=== PATIENT | male | born 1965 | race Caucasian/White ===

== ENCOUNTER 2023-01-03 09:35 | Outpatient (RCR) | payer OTHER, SELFPAY | END 2023-02-09 13:35 | disposition home or self-care (01) | LOC: PT 09:35 | PROVIDERS: PCP Family Medicine; Visit Provider Family Medicine | DX: M47.816 Spondylosis without myelopathy or radiculopathy, lumbar region (principal) | CPT/HCPCS: 97110; 97140 ==

== ENCOUNTER 2023-01-03 09:36 | Outpatient (RCR) | payer OTHER, SELFPAY | END 2023-01-10 13:30 | disposition home or self-care (01) | LOC: PT 09:36 | PROVIDERS: PCP Family Medicine; Visit Provider Orthopaedic Surgery | DX: M25.512 Pain in left shoulder (principal); M75.102 Unspecified rotator cuff tear or rupture of left shoulder, not specified as traumatic; Z98.890 Other specified postprocedural states | CPT/HCPCS: 97110; 97140 ==

== ENCOUNTER 2023-02-06 16:03 | Outpatient (OUT) | payer OTHER, SELFPAY ==
[2023-02-06 16:20] LABS: Hematocrit 40.4 % (42.0-54.0); Hemoglobin 13.5 g/dL (14.0-18.0); Mean Corpuscular HGB Conc 33.4 g/dL (29.9-35.2); Mean Corpuscular Hemoglobin 31.2 pg (25.9-34.0); Mean Corpuscular Volume 93.3 fL (80.0-94.0); Mean Platelet Volume 9.4 fL (9.5-13.5); Platelet Count 305 10^3/uL (150-450); Red Blood Count 4.33 10^6/uL (4.70-6.10); Red Cell Distribution Width 14.5 % (11.0-15.0); White Blood Count 6.6 10^3/uL (4.0-11.0)
[2023-02-06 16:34] LABS: Band Neutrophils Absolute 0.1 10^3/uL (0.0-0.3); Eosinophils Absolute Manual 0.06 10^3/uL (0.00-0.70); Lymphocytes Absolute Manual 0.26 10^3/uL (1.20-3.80); Monocytes Absolute Manual 0.19 10^3/uL (0.30-0.80)
[2023-02-06 16:40] LABS: Estimated Average Glucose 120 mg/dL; Glycohemoglobin A1C 5.8 % (4.5-6.2)
[2023-02-06 17:52] LABS: Free T4 1.07 ng/dL (0.76-1.46)
[2023-02-06 17:54] LABS: Alanine Aminotransferase 26 U/L (16-63); Albumin Level 3.5 g/dL (3.4-5.0); Alkaline Phosphatase 109 U/L (46-116); Anion Gap 11.9; Aspartate Amino Transferase 14 U/L (15-37); BUN Creatinine Ratio 18.6; Bilirubin Direct 0.1 mg/dL (0.0-0.2); Bilirubin Total 0.3 mg/dL (0.2-1.0); Calcium 9.1 mg/dL (8.5-10.1); Carbon Dioxide 24.9 mmol/L (21.0-32.0); Chloride 106 mmol/L (98-107); Chol HDL Ratio 2.3; Cholesterol 178 mg/dL (<=200); Estimated GFR (African America >60 (>=60); Estimated GFR (Non-African Ame >60 (>=60); Free T3 2.86 pg/mL (2.18-3.98); Globulin 3.5 g/dL; Glucose 171 mg/dL (74-106); HDL Cholesterol 77 mg/dL (40-60); Potassium 4.8 mmol/L (3.5-5.1); Sodium 138 mmol/L (136-145); Thyroid Stimulating Hormone 0.365 uIU/mL (0.358-3.740); Triglycerides 135 mg/dL (<=150)
[2023-02-06 17:58] LABS: Prostate Specific Antigen Scrn 0.32 ng/mL (<=4.00)
== END 2023-02-06 16:04 | disposition home or self-care (01) ==
LOC: LAB 16:03
PROVIDERS: PCP Family Medicine; Visit Provider Family Medicine
DX: Z00.00 Encounter for general adult medical examination without abnormal findings (principal)
CPT/HCPCS: 36415; 80048; 80061; 80076; 83036; 84439; 84443; 84481; 85007; 85025; G0103

== ENCOUNTER 2023-05-03 10:17 | Emergency (ER) | payer OTHER, SELFPAY ==
[2023-05-03] VITALS (12 sets, daily range): BP systolic 131–143; BP diastolic 84–95; PULSE 70–74; RESP 15–29; TEMP 36.4; O2SAT 94–98; BMI 29.8
--- NOTE | 2023-05-03 10:32 | XR_ITS ---
The [address] [address] Patient Name: MORGAN LATHAM MRN: [id number] date: 1965 Sex: M Assigned Patient Location: ER Current Patient Location: ED.MAIN Accession/Order Number: [id number] Exam Date: 05/03/2023 10:43 Report Date: 05/03/2023 10:59 At the request of: MARI MORROW Procedure: XR chest 1V EXAMINATION: XR chest 1V HISTORY: CHEST PAIN COMPARISON: No relevant comparison available. FINDINGS: LUNGS: Mild opacity and stranding within right lung base. VASCULATURE: No increased pulmonary vasculature. PLEURA: No pneumothorax, effusion, or pleural thickening. CARDIAC: No cardiomegaly or cardiac silhouette abnormality. MEDIASTINUM: No visible mass or adenopathy. BONES: No fracture or visible bone lesion. OTHER: Negative. XR/XR chest 1V IMPRESSION: 1. Mild bibasilar infiltrates versus atelectasis. Electronically authenticated by: JOEL ANN Date: 05/03/2023 10:59
--- NOTE | 2023-05-03 10:32 | ECG_ITS ---
The [facility] Test Date: 2023-05-03 Pat Name: MORGAN LATHAM Department: Room: - Gender: Male Comprehensive Advisor: : 1965 Requested By: MORRO MCPHERSON Order Number: [id number] Reading MD: DANIEL BILL Measurements Intervals [place] Rate: 72 P: 38 MN: 156 QRS: 44 QRSD: 124 T: 141 QT: 442 QTc: 466 Interpretive Statements 1100 Sinus rhythm 3532 Lateral myocardial infarction, probably recent [address] depression, consistent with subendocardial injury 9150 abnormal ECG No previous ECG available for comparison Electronically Signed On 05-05-2023 18:38:57 EDT by DANIEL BILL
--- NOTE | 2023-05-03 10:39 | ED.CHESTPAI1 ---
HPI - Chest Pain General Chief Complaint: Chest Pain Stated Complaint: chest pain Time Seen by Provider: 05/03/23 10:24 Source: patient Mode of arrival: Wheelchair History of Present Illness HPI narrative: SUDDEN ONSET STERNAL CHEST PAIN @630AM THIS MORNING. Pain is non radiating but he has some tingling down the left arm. No GI or symptoms. No recent cough, chest injury, fever or chills. He rates the pain as severe at onset, moderate to severe now. He did not take anything this morning for the pain. History of HTN and high cholesterol. Had a negative heart cath somewhere in [place] over 10 years ago. Does not take aspirin daily. PCP is Norma. Related Data Home Medications Medication Instructions Recorded Confirmed atenolol 50 mg tablet 50 mg PO DAILY 05/03/23 05/03/23 atorvastatin 20 mg tablet 20 mg PO QPM 05/03/23 05/03/23 celecoxib 200 mg capsule 200 mg PO BID 05/03/23 05/03/23 cetirizine 10 mg tablet 10 mg PO DAILY PRN allergy symptoms 05/03/23 05/03/23 duloxetine 30 mg capsule,delayed 30 mg PO DAILY 05/03/23 05/03/23 release fluticasone propionate 50 2 spray intranasal QAM 05/03/23 05/03/23 mcg/actuation nasal spray,suspension gabapentin 300 mg capsule 300 mg PO TID 05/03/23 05/03/23 mupirocin 2 % topical ointment 1 applic topical DAILY 05/03/23 05/03/23 omeprazole 40 mg capsule,delayed 40 mg PO BID 05/03/23 05/03/23 release oxycodone-acetaminophen 10 mg-325 1 tab PO QID PRN pain 05/03/23 05/03/23 mg tablet Allergies Allergy/AdvReac Type Severity Reaction Status Date / Time No Known Drug Allergies Allergy Verified 05/03/23 10:22 Exam Narrative Exam Narrative: Nurses notes and vital signs reviewed and patient is not hypoxic. afebrile General: Well-appearing and in no apparent distress. Skin: Warm, dry, no pallor noted. Eye: Pupils are equal, round and EOMI. No scleral icterus. Cardiovascular: Regular Rate and Rhythm without murmur, gallop or rub. Respiratory: No accessory muscle use or respiratory distress. Lungs are clear to auscultation, no wheezing, rales or rhonchi Chest Wall: no tenderness Musculoskeletal: normal ROM, no calf or popliteal tenderness, no lower extremity edema/swelling GI: Abdomen is soft, non-distended. Normal bowel sounds. No tenderness to palpation. No rebound, guarding, or rigidity noted. Neurological: A&O x4. No cranial nerve dysfunction observed. No truncal ataxia. Moves all extremities. Sensation intact. Psychiatric: Cooperative and interactive. Normal mood and affect. Constitutional Vital Signs, click to edit/add: Last Vital Signs Temp 97.5 F L 05/03/23 10:19 Pulse 74 05/03/23 10:19 Resp 22 05/03/23 10:19 BP 132/95 H 05/03/23 10:19 Pulse Ox 98 05/03/23 10:35 O2 Del Method Room Air 05/03/23 10:35 Course Vital Signs Vital signs: Vital Signs Temperature 97.5 F L 05/03/23 10:19 Pulse Rate 74 05/03/23 10:19 Respiratory Rate 22 05/03/23 10:19 Blood Pressure 132/95 H 05/03/23 10:19 Pulse Oximetry 97 05/03/23 10:19 Oxygen Delivery Method Room Air 05/03/23 10:19 Temperature 97.5 F L 05/03/23 10:19 Pulse Rate 74 05/03/23 10:19 Respiratory Rate 22 05/03/23 10:19 Blood Pressure 132/95 H 05/03/23 10:19 Pulse Oximetry 98 05/03/23 10:35 Oxygen Delivery Method Room Air 05/03/23 10:35 MDM - Chest Pain MDM Narrative Medical decision making narrative: Patient was placed on radiation monitor and EKG obtained. Blood drawn and sent for evaluation. EKG concerning for STEMI and Dr Quick notified with non-identifiable copy of ecg sent to his to review and we then discussed the case. He agreed to accept the patient for transfer to their [facility] and arrangements made for [facility] to tranport the patient. Patient received oral aspirin and Brilinta plus SL Nitro. He received IV Zofran and IV Morphine and was started on 4000 unit heparin bolus with drip to be started if bolus completed prior to EMS arrival. 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 Lab Data Attestation: I reviewed the patient's lab results. Imaging Data Chest x-ray: My impression: I do not see any mediastinal widening concerning for thoracic aortic aneurysm ECG Data Interpretation: EKG interpretation: Emergency Department physician interpretation. Normal sinus rhythm at 89bpm. Normal axis, normal intervals. ST segment elevation in leads I and aVL with reciprocal changes concerning for STEMI. Heart Score History: Highly Suspicious ECG: Sign. ST Depression Age: >45-<65 years Risk Factors: >3 Risk Factors/ HX of CAD:2 Troponin: <3X Normal Limit Total Heart Score Recommendations & Risks:: 8 Critical Care Time Critical Care Time Critical Care Time: Yes Total Critical Care Time: 35 Attestation: this critical care that is documented includes time spent evaluating the patient, coordinating Lab availability and transfer to appropriate facility for intervention and is independent of any procedures Discharge Plan Discharge Chief Complaint: Chest Pain Clinical Impression: ST elevation myocardial infarction (STEMI), Chest pain Patient Disposition: [facility] Time of Disposition Decision: 10:30 Discharge Location: [facility] Mode of Transportation: EMS Prescriptions / Home Meds: No Action atenolol 50 mg tablet 50 mg PO DAILY atorvastatin 20 mg tablet 20 mg PO QPM celecoxib 200 mg capsule 200 mg PO BID cetirizine 10 mg tablet 10 mg PO DAILY PRN (Reason: allergy symptoms) duloxetine 30 mg capsule,delayed release(DR/EC) 30 mg PO DAILY fluticasone propionate 50 mcg/actuation spray,suspension 2 spray INTRANASAL QAM gabapentin 300 mg capsule 300 mg PO TID mupirocin 2 % ointment 1 applic TOPICAL DAILY omeprazole 40 mg capsule,delayed release(DR/EC) 40 mg PO BID oxycodone-acetaminophen 10-325 mg tablet 1 tab PO QID PRN (Reason: pain) Referrals: Juve Green MD [Primary Care Provider] - 1 week
[2023-05-03] MEDS: MORPHINE SULFATE 4 MG/ML VIAL IV (10:43)
[2023-05-03] MEDS: NITROGLYCERIN 0.4 MG BOTTLE PO (10:44)
[2023-05-03] MEDS: ONDANSETRON PF 4 MG/2 ML VIAL IV (10:45)
[2023-05-03] MEDS: HEPARIN SODIUM (PORCINE) 5,000 UNIT/ML VIAL 4000 UNIT IV (10:45)
[2023-05-03] MEDS: TICAGRELOR 90 MG TABLET 180 MG PO (10:46)
[2023-05-03] MEDS: HEPARIN SODIUM,PORCINE/D5W 25,000 UNIT/500 ML IV.SOLN 16 UNIT IV (10:48)
[2023-05-03 10:49] LABS: Basophils Absolute Auto 0.1 10^3/uL (0.0-0.1); Basophils Percent Auto 0.5 % (0.2-2.0); Eosinophils Absolute Auto 0.1 10^3/uL (0.0-0.7); Eosinophils Percent Auto 0.8 % (0.9-7.0); Hematocrit 42.3 % (42.0-54.0); Hemoglobin 13.8 g/dL (14.0-18.0); Immature Granulocytes Abs Auto 0.02 10^3/uL (0.00-0.03); Immature Granulocytes Pct Auto 0.2 % (0.0-0.5); Lymphocytes Percent Auto 9.8 % (20.5-60.0); Mean Corpuscular HGB Conc 32.6 g/dL (29.9-35.2); Mean Corpuscular Hemoglobin 30.5 pg (25.9-34.0); Mean Corpuscular Volume 93.6 fL (80.0-94.0); Mean Platelet Volume 10.6 fL (9.5-13.5); Monocytes Absolute Auto 0.7 10^3/uL (0.3-0.8); Monocytes Percent Auto 7.5 % (1.7-12.0); Neutrophils Percent Auto 81.2 % (43.0-75.0); Platelet Count 353 10^3/uL (150-450); Red Blood Count 4.52 10^6/uL (4.70-6.10); Red Cell Distribution Width 13.1 % (11.0-15.0); White Blood Count 9.9 10^3/uL (4.0-11.0)
[2023-05-03 10:50] LABS: INR 0.95; Partial Thromboplastin Time 26.2 sec (22.3-36.2); Prothrombin Time 10.1 sec (9.0-11.6)
[2023-05-03 11:01] LABS: Anion Gap 13.8; Carbon Dioxide 26.8 mmol/L (21.0-32.0); Chloride 103 mmol/L (98-107); Glucose 131 mg/dL (74-106); Sodium 139 mmol/L (136-145)
[2023-05-03 11:02] LABS: BUN Creatinine Ratio 15.9; Calcium 9.8 mg/dL (8.5-10.1); Estimated GFR (African America >60 (>=60); Estimated GFR (Non-African Ame >60 (>=60)
[2023-05-03 11:23] LABS: Troponin I High Sensitivity 4042.5 pg/mL (4.0-76.1)
[2023-05-03 11:30] LABS: Potassium 4.6 mmol/L (3.5-5.1)
== END 2023-05-03 11:03 | disposition short-term general hospital (02) ==
PROVIDERS: Emergency Provider Emergency Medicine; PCP Family Medicine
DX: I21.3 ST elevation (STEMI) myocardial infarction of unspecified site (principal); R07.9 Chest pain, unspecified; I10 Essential (primary) hypertension; E78.00 Pure hypercholesterolemia, unspecified; Z79.899 Other long term (current) drug therapy
CPT/HCPCS: 36415; 71045; 80048; 83880; 84484; 85025; 85610; 85730; 93005; 96374; 96375; 99285

== ENCOUNTER 2023-06-06 12:46 | Outpatient (OUT) | payer OTHER, SELFPAY ==
--- NOTE | 2023-06-06 12:58 | XR_ITS ---
[address] [address] Patient Name: MORGAN LATHAM MRN: [id number] date: 1965 Sex: M Assigned Patient Location: RAD Current Patient Location: Accession/Order Number: [id number] Exam Date: 06/06/2023 13:00 Report Date: 06/07/2023 09:28 At the request of: MORRO MCPHERSON Procedure: XR foot RT min 3V PROCEDURE: XR foot RT min 3V COMPARISON: None. HISTORY: Chronic Right Foot Pain M79.671 FINDINGS: BONES:No fracture, acute abnormality, or significant arthropathy. SOFT TISSUES:Negative. No visible soft tissue swelling. EFFUSION:None visible. OTHER: Negative. XR/XR foot RT min 3V IMPRESSION: No acute radiographic abnormality Electronically authenticated by: BRITTON JUAREZ Date: 06/07/2023 09:28
== END 2023-06-06 12:47 | disposition home or self-care (01) ==
LOC: RAD 12:49
PROVIDERS: PCP Family Medicine; Visit Provider Family Medicine
DX: M79.671 Pain in right foot (principal)
CPT/HCPCS: 73630

== ENCOUNTER 2023-06-25 13:21 | Outpatient (OUT) | payer OTHER, SELFPAY ==
--- NOTE | 2023-06-25 | XR_ITS ---
The [address] [address] Patient Name: MORGAN LATHAM MRN: [id number] date: 1965 Sex: M Assigned Patient Location: [facility] Current Patient Location: Accession/Order Number: [id number] Exam Date: 06/25/2023 13:30 Report Date: 06/27/2023 23:06 At the request of: ANNETTE VASQUEZ Procedure: XR foot RT min 3V XR foot RT min 3V: HISTORY: RIGHT FOOT PAIN RIGHT FOOT PAIN COMPARISON: 06/06/2023. TECHNIQUE: 4 views of the right foot are submitted. FINDINGS: BONES/JOINT SPACES: No acute fractures are identified in the right foot. There is mild degeneration of the first metatarsophalangeal joint. There is a tiny calcaneal spur measuring 2 mm. SOFT TISSUES: The soft tissues are unremarkable. XR/XR foot RT min 3V IMPRESSION: No acute osseous injuries of the right foot. Mild degeneration of the first metatarsophalangeal joint. Tiny calcaneal spur. Electronically authenticated by: AYLA WHITE Date: 06/27/2023 23:06
== END 2023-06-25 13:22 | disposition home or self-care (01) ==
LOC: RAD 13:21
PROVIDERS: PCP Family Medicine; Visit Provider Podiatrist Foot & Ankle Surgery
DX: M79.671 Pain in right foot (principal); M77.31 Calcaneal spur, right foot
CPT/HCPCS: 73630

== ENCOUNTER 2023-07-08 07:41 | Outpatient (RCR) | payer OTHER, SELFPAY | END 2023-08-02 16:58 | disposition home or self-care (01) | LOC: CR 07:41 | PROVIDERS: PCP Family Medicine; Visit Provider Internal Medicine Cardiovascular Disease | DX: Z95.1 Presence of aortocoronary bypass graft (principal); I25.2 Old myocardial infarction ==

== ENCOUNTER 2023-08-06 08:45 | Outpatient (RCR) | payer OTHER, SELFPAY | END 2023-10-01 07:19 | disposition home or self-care (01) | LOC: CR 08:45 | PROVIDERS: PCP Family Medicine; Visit Provider Internal Medicine Cardiovascular Disease | DX: Z95.1 Presence of aortocoronary bypass graft (principal); I25.2 Old myocardial infarction ==

== ENCOUNTER 2024-05-05 12:29 | Outpatient (OUT) | payer OTHER, SELFPAY ==
[2024-05-05 12:39] LABS: Basophils Absolute Auto 0.1 10^3/uL (0.0-0.1); Eosinophils Absolute Auto 0.2 10^3/uL (0.0-0.7); Eosinophils Percent Auto 2.6 % (0.9-7.0); Hematocrit 38.2 % (42.0-54.0); Hemoglobin 12.8 g/dL (14.0-18.0); Immature Granulocytes Abs Auto 0.02 10^3/uL (0.00-0.03); Immature Granulocytes Pct Auto 0.3 % (0.0-0.5); Lymphocytes Percent Auto 13.4 % (20.5-60.0); Mean Corpuscular HGB Conc 33.5 g/dL (29.9-35.2); Mean Corpuscular Hemoglobin 31.8 pg (25.9-34.0); Mean Platelet Volume 9.5 fL (9.5-13.5); Monocytes Absolute Auto 0.7 10^3/uL (0.3-0.8); Monocytes Percent Auto 10.2 % (1.7-12.0); Neutrophils Absolute Auto 5.3 10^3/uL (1.4-6.5); Neutrophils Percent Auto 72.5 % (43.0-75.0); Platelet Count 323 10^3/uL (150-450); Red Blood Count 4.02 10^6/uL (4.70-6.10); White Blood Count 7.2 10^3/uL (4.0-11.0)
[2024-05-05 12:58] LABS: Estimated Average Glucose 111 mg/dL; Glycohemoglobin A1C 5.5 % (4.5-6.2)
[2024-05-05 13:24] LABS: Alanine Aminotransferase 20 U/L (16-63); Albumin Globulin Ratio 1.3; Albumin Level 3.8 g/dL (3.4-5.0); Alkaline Phosphatase 89 U/L (46-116); Anion Gap 13.7; Aspartate Amino Transferase 16 U/L (15-37); BUN Creatinine Ratio 11.6; Bilirubin Direct 0.2 mg/dL (0.0-0.2); Bilirubin Total 0.5 mg/dL (0.2-1.0); Carbon Dioxide 25.4 mmol/L (21.0-32.0); Chloride 104 mmol/L (98-107); Chol HDL Ratio 1.9; Cholesterol 173 mg/dL (<=200); Estimated GFR (African America >60 (>=60); Estimated GFR (Non-African Ame 53 (>=60); Glucose 124 mg/dL (74-106); HDL Cholesterol 90 mg/dL (40-60); Potassium 4.1 mmol/L (3.5-5.1); Sodium 139 mmol/L (136-145); Thyroid Stimulating Hormone 0.681 uIU/mL (0.358-3.740); Total Protein 6.8 g/dL (6.4-8.2); Triglycerides 79 mg/dL (<=150); VLDL CHOLESTEROL 15.8 mg/dL
[2024-05-05 13:26] LABS: Prostate Specific Antigen Scrn 0.38 ng/mL (<=4.00)
== END 2024-05-05 12:30 | disposition home or self-care (01) ==
LOC: LAB 12:29
PROVIDERS: PCP Family Medicine; Visit Provider Family Medicine
DX: E78.5 Hyperlipidemia, unspecified (principal); I10 Essential (primary) hypertension; R73.03 Prediabetes; Z79.899 Other long term (current) drug therapy; Z12.5 Encounter for screening for malignant neoplasm of prostate; E66.9 Obesity, unspecified
CPT/HCPCS: 36415; 80048; 80061; 80076; 83036; 84443; 85025; G0103

== ENCOUNTER 2025-04-30 14:37 | Outpatient (OUT) | payer OTHER, SELFPAY ==
--- OUTSIDE RECORDS SUMMARY | 2024-07-16 09:00 | XMS_ITS ---
Author Organization [facility] Address [address] [place] [address] Care Team Providers Care Panman Name Role Phone Dr. Juan Pennington Primary Care Provider [phone] Reji Tonja Ham [phone] REASON FOR VISIT PROPHY Encounters Encounter Location Date Provider Diagnosis [facility] [address] [place] [address] 07/16/2024 Tonja Ham Acute gingivitis, plaque induced K05.00 Assessments Encounter Date Diagnosis (ICD Code) Assessment Notes Treatment Notes Treatment Clinical Notes Section Notes 07/16/2024 Acute gingivitis, plaque induced (ICD-10 - K05.00) Plan Of Treatment No Information Progress Notes * MORGAN LATHAMDOB:[birth year] (59 yo M)Acc No.[id number]:07/16/2024 Patient: MORGAN FARRELL Provider: Yohan Ham :1965 A ge:58 Y S ex:Male Date:07/16/2024 Address:[address] [place], [place] [id number] Pcp:Dr. Juan Pennington Subjective: * Chief Complaints: * 1 . PROPHY. * Medical History: Objective: * Vitals: * Dental Examination/Plan : Tooth / Surface Status Description Provider TP PROPHYLAXIS - ADULT [facility] 07/16 Assessment: * Assessment: 1. A cute gingivitis, plaque induced - K05.00 (Primary) Plan: * Treatment: * Images: * Electronic signature of Cheng Ham on 04/30/2025 at 02:43 PM EDT Sign off status: Pending * Provider: Yohan Ham Date: 1 09/16/2023 Generated for Daniel enciso/Isaac/Susan on: 0 04/30/2025 02:43 PM EDT
--- OUTSIDE RECORDS SUMMARY | 2024-07-20 04:00 | XMS_ITS ---
Author Organization [facility] Address [address] [facility] [place] [address] Care Team Providers Care Lab Instructor Name Role Phone Dr. Juan Pennington Primary Care Provider REASON FOR VISIT EXT Encounters Encounter Location Date Provider Diagnosis [facility] [address] [address] 07/20/2024 Juan Pennington Plan Of Treatment No Information Progress Notes * MORGAN LATHAM JDOB:[birth year] (59 yo M)Acc No.[id number]:07/20/2024 Patient: MORGAN FARRELL Provider: Pau Pennington DDS :1965 A ge:58 Y S ex:Male Date:07/20/2024 Address:[address] [place], [place] [id number] Subjective: * Chief Complaints: * 1 . EXT. * Medical History: Objective: * Vitals: Assessment: Plan: * Treatment: * Images: * Electronic signature of Dr. Juan Pennington , DMD on 04/30/2025 at 02:43 PM EDT Sign off status: Pending * Provider: Pau Pennington DDS Date: 1 09/20/2023 Generated for Daniel enciso/Isaac/eTransmitting on: 0 04/30/2025 02:43 PM EDT
--- OUTSIDE RECORDS SUMMARY | 2025-04-21 13:00 | XMS_ITS | Encounter Summary ---
Author Organization [facility] Address [address] 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 No 05/12/2023 Humiliation, Afraid, Rape, and Kick questionnair e Answer Date Recorded Within the last year, have y ou been afraid of your partner or ex-partner? No 05/12/2023 Within the last year, have y ou been humiliated or emotionally abused in other ways by your partner or ex-partner? No Within the last year, have y ou been kicked, hit, slapped, or otherwise physically hurt by your partner or ex-partner? No 05/12/2023 Within the last year, have y ou been raped or forced to have any kind of sexual activity by your partner or ex-partner? No 05/12/2023 Social Connection and Isolation Panel Answer Date Recorded In a typical week, how many times do you talk on the phone with family, friends, or neighbors? Three times a week 05/12/2023 How often do you get togethe r with friends or relatives? Three times a week 05/12/2023 Attends Muslim Services Not on file 05/12 Active Member of Clubs or Organizations Not on f ile 05/12/2023 Attends Club or Organization Meetings Not on lenny e 05/12/2023 Marital Status Not on file 05/12/2023 AUDIT-C Answer Date Recorded Q1: How often do you have a drink containing alcohol? Never 05/05/2023 Q2: How many drinks containi ng alcohol do you have on a typical day when you are drinking? Patient does not drink Q3: How often do you have si x or more drinks on one occasion? Never 05/05/2023 Overall Financial Resource Strain (CARDIA) Answe r Date Recorded How hard is it for you to pa y for the very basics like food, housing, medical care, and heating? Not hard at all 05/12/2023 PHQ-2 Answer Date Recorded Patient Health Questionnaire-2 Score 0 05/27/2024 [facility] - Occupational Stress Questionnaire Answer Date Recorded Do you feel stress - tense, restless, nervous, or anxious, or unable to sleep at night because your mind is troubled all the time - these days? To some extent 05/12/2023 Exercise Vital Sign Answer Date Recorde d On average, how many days pe r week do you engage in moderate to strenuous exercise (like a brisk walk)? 2 days Minutes of Exercise per Session Not on file 05/12/2023 Hunger Vital Sign Answer Date Recorded Within the past 12 months, y ou worried that your food would run out before you got the money to buy more. Never true 05/12/20 23 Within the past 12 months, t he food you bought just didn't last and you didn't have money to get more. Never true 05/12/2023 PRAPARE - Transportation Answer Date Re corded In the past 12 months, has l ack of transportation kept you from medical appointments or from getting medications? No 03/2023 In the past 12 months, has l ack of transportation kept you from meetings, work, or from getting things needed for daily living? No 05/12/2023 Housing Stability Vital Sign Answer Valeriano e Recorded In the last 12 months, was t here a time when you were not able to pay the mortgage or rent on time? No 05/12/2023 In the last 12 months, how many places have you lived? 1 05/12/2023 In the last 12 months, was t here a time when you did not have a steady place to sleep or slept in a retirement (including now)? No 05/12/2023 Sex and Gender Information Value Date Recorded Sex Assigned at Not on file Legal Sex Male 5:42 PM EST Gender Identity Not on file Sexual Orientation Not on file documented as of this encounter Last Filed Vital Signs Vital Sign Reading Time Taken Comments Blood Pressure 106/64 04/21/2025 1:07 PM EDT Pulse 68 04/21/2025 1:07 PM EDT Temperature - - Respiratory Rate - - Oxygen Saturation - - Inhaled Oxygen Concentration - - Weight 95.3 kg (210 lb) 04/21/2025 1:07 PM EDT Height 170.2 cm (5' 7 ) 04/21/2025 1:07 PM EDT Body Mass Index 32.89 04/21/2025 1:07 PM EDT documented in this encounter Functional Status * BP Answer Date of Assessment Author 106/64 04/21/2025 1:07 PM EDT Danna Márquez LPN * Pulse Answer Date of Assessment Author 68 04/21/2025 1:07 PM EDT Danna Márquez LPN * Communicable Disease Screening Question Answer Date of Assessment Author Do you have any of the follo wing new or worsening symptoms? None of these 04/21/2025 12:54 PM EDT Diane Hernandez documented as of this encounter Patient Instructions * Patient Instructions* Lexus Ernandez APRN-BINGO CHECKER - 04/21/2025 1:00 PM EDT Please bring all medicines, vitamins, and herbal supplements with you when you come to the office. Prescriptions will not be filled unless you are compliant with your follow up appointments or have a follow up appointment scheduled as per instruction of your physician. Refills should be requested at the time of your visit. PLAN: Through informed decision making process incorporating patients unique circumstances, the followingtreatment plan will be initiated: 1. Prescription drug management of cardiovascular medication for efficacy, adherence to treatment, side effect assessment and polypharmacy. Current treatment clinically warranted and to continue without modifications. 2. Return for follow-up; in the interim, contact the office if new symptoms arise. SCREENING NURSE 4 months documented in this encounter Progress Notes * BEATRICE Johnson - 04/21/2025 1:00 PM EDT Chief Complaint I think I am doing better Reason for Visit 1 month follow-up Patient presents to the office today for outpatient follow-up for shortness of breath and test results. Last evaluated in clinic by myself March 2025. At that time I had ordered lab work, and he did notobtain. He was to get a chest x-ray and a CT of the chest-he actually did not get those but will make arrangements. He was referred for evaluation with pulmonary. His sleep study is scheduled for next month. Presents today ambulatory with steady gait. Accompanied by patient Patient denies any hospitalizations or significant changes to interval medical history since last office follow-up. History of Present Illness Patient is a pleasant 59-year-old gentleman who presents to the office today where he actually reports feeling a little bit better. Utilizing Symbicort as rescue inhaler there has been benefit in hisshortness of breath. He has had no additional chest pain, has not utilized nitroglycerin. He actually ambulated in from the parking lot with no concerns of shortness of breath. There is no orthopnea or PND. And he overall reports feeling great over the weekend . He will complete chest x-ray and CT as requested, also obtain his lab work. Continue workup with pulmonary. Overall, stable cardiovascular standpoint without evidence of unstable angina or decompensated heart failure. Patient reports that overall has no complaint(s) of chest pain, chest pressure/discomfort, claudication, exertional chest pressure/discomfort, fatigue, irregular heart beat, and lower extremity edema Daily activity: > 4 METs Denies any change in exercise capacity or functional tolerance since last office visit. The importance of secondary prevention reviewed: HTN: Optimal HLD: Treated DM: Denies Smoker: Unfortunately, continues to smoke BMI: Reviewed the merits of healthy lifestyle choices on overall cardiovascular health. Discussed the dynamic nature of coronary artery disease and the importance of seeking medical attention if new symptoms arise. Review of Systems Cardiovascular: Negative for chest pain, dyspnea on exertion, irregular heartbeat, leg swelling, near-syncope, orthopnea, palpitations, paroxysmal nocturnal dyspnea and syncope. Respiratory: Positive for shortness of breath. Visit Vitals BP 106/64 (BP Location: Left arm, Patient Position: Sitting) Pulse 68 Ht 1.702 m (5' 7 ) Wt 95.3 kg (210 lb) BMI 32.89 kg/m?? Smoking Status Some Days BSA 2.12 m?? Physical Exam Vitals and nursing note reviewed. Constitutional: Appearance: Normal appearance. Cardiovascular: Rate and Rhythm: Normal rate and regular rhythm. Heart sounds: Normal heart sounds. Pulmonary: Effort: Pulmonary effort is normal. Breath sounds: Normal breath sounds. Musculoskeletal: Cervical back: Full passive range of motion without pain. Right lower leg: No edema. Left lower leg: No edema. Skin: General: Skin is cool. Neurological: Mental Status: He is alert and oriented to person, place, and time. Psychiatric: Attention and Perception: Attention normal. Mood and Affect: Mood normal. Behavior: Behavior is cooperative. ALLERGIES: Patient has no known allergies. Current Outpatient Medications Medication Instructions aspirin 81 mg, oral, Daily atorvastatin (LIPITOR) 80 mg, oral, Daily budesonide-formoterol (Symbicort) 160-4.5 mcg/actuation inhaler 2 puffs, inhalation, 2 times daily RT, Rinse mouth with water after use to reduce aftertaste and incidence of candidiasis. Do not swallow. cyanocobalamin (VITAMIN B-12) 500 mcg, Daily DULoxetine (CYMBALTA) 60 mg, Daily empagliflozin (JARDIANCE) 10 mg, oral, Daily furosemide (LASIX) 20 mg, oral, Daily isosorbide mononitrate ER (IMDUR) 30 mg, oral, Daily, Do not crush or chew. lamoTRIgine (LaMICtal) 25 mg tablet 2 tablets, Nightly metoprolol succinate XL (Toprol-XL) 100 mg 24 hr tablet TAKE ONE TABLET BY MOUTH ONCE DAILY -DO NOTCRUSH OR CHEW multivitamin with minerals tablet 1 tablet, oral, Daily nitroglycerin (NITROSTAT) 0.4 mg, sublingual, Every 5 min PRN, May repeat dose every 5 minutes for up to 3 doses total. omeprazole (PRILOSEC) 40 mg, 2 times daily oxyCODONE (ROXICODONE) 5 mg, oral, Every 4 hours PRN sacubitriL-valsartan (Entresto) 49-51 mg tablet 1 tablet, oral, 2 times daily Assessment: Current smoker 'working hard on quitting' Maybe 5 per day Continued every day tobacco use. Have reviewed the negative cardiovascular impact of nicotine. Continues to decline pharmacological assistance. Atherosclerotic heart disease of alturas coronary artery with unspecified angina pectoris ([facility]) May 03, 2023 Anterior STEMI Two-vessel PCI of the diagonal branch & the ramus branch with subsequent intra- aortic balloon pump placement. He had chronic total occlusion of the mid LAD he was then transferred to [facility] : May 07, 2023 CABG ALVAREZ-LAD SVG-OM November 2024 TTE with moderate lateral and anterolateral hypokinesis. Recent admit adhf unclear etiology - will proceed with non invasive ischemic work up. January 2025 MPI moderate inferior ischemia. January 30, 2020 5 repeat cardiac cath ALVAREZ-LAD patent SVG-OM patent Mid RCA 50 to 70% Distal RCA 50-70% PDA occluded plon-vp-[id number] collaterals Mid circumflex 95-99 (patent SVG-OM) LVEF 40% HTN (hypertension) Optimal in office Cardiomyopathy, ischemic ICM HF improved EF 40% January 2025 cardiac cath & 45-50% November 2024 TTE ( prior EF 35-40% Jul TTE & EF 30-35% post-op May 2023 TTE) FC II Stage C GDMT: Toprol XL Aldactone - off treatment unclear reasons. He needs to verify if has med at home. Jardiance -for some reason he interrupted it earlier this year, it was resumed December 2024 and he is tolerating without concerns. Entresto: Jul 02, 2023. Coverage approved November 2024: ADHF admit Narrow QRS 82 Hyperlipemia High intensity statin January 2025 HDL 69, LDL 63 BMI 32.0-32.9,adult Reviewed the merits of healthy lifestyle choices on overall cardiovascular health. Shortness of breath Remains a persistent complaint. Short of breath at rest and with exertion. No evidence orthopnea orPND. No benefit from initiation of diuretic or increased antianginals. He does feel that a prior Symbicort inhaler does seem to help . February 2025 PFTs with no clear obstructive or restrictive disease. He is a current everyday smoker there is some documentation of a 2022 CT with lung nodules -PCP hadordered repeat but inadvertently did not obtain. Last month ordered chest x-ray and CT of chest-8 inadvertently did not complete. He has been seen by pulmonary Presents today where he actually feels like he is doing better with initiation of Symbicort and hisrescue inhaler. Plan: Through informed decision making process incorporating patients unique circumstances, the followingtreatment plan will be initiated: 1. Prescription drug management of cardiovascular medication for efficacy, adherence to treatment, side effect assessment and polypharmacy. Current treatment clinically warranted and to continue without modifications. 2. Return for follow-up; in the interim, contact the office if new symptoms arise. SCREENING NURSE 4 months Lexus Ernandez MSN, CASH APPLICATIONS ASSOCIATE-BINGO CHECKER, PMHNP-[facility] [place], [place] Please excuse any errors in grammar or translation related to this dictation. Voice recognition software was utilized to prepare this document. documented in this encounter Miscellaneous Notes * Assessment & Plan Note - BEATRICE Johnson - 04/22/2025 10:57 AM EDT Associated Problem(s): Shortness of breath Remains a persistent complaint. Short of breath at rest and with exertion. No evidence orthopnea orPND. No benefit from initiation of diuretic or increased antianginals. He does feel that a prior Symbicort inhaler does seem to help . February 2025 PFTs with no clear obstructive or restrictive disease. He is a current everyday smoker there is some documentation of a 2022 CT with lung nodules -PCP hadordered repeat but inadvertently did not obtain. Last month ordered chest x-ray and CT of chest-8 inadvertently did not complete. He has been seen by pulmonary Presents today where he actually feels like he is doing better with initiation of Symbicort and hisrescue inhaler. * Assessment & Plan Note - BEATRICE Johnson - 04/22/2025 10:56 AM EDT Associated Problem(s): BMI 32.0-32.9,adult Reviewed the merits of healthy lifestyle choices on overall cardiovascular health. * Assessment & Plan Note - BEATRICE Johnson - 04/22/2025 10:56 AM EDT Associated Problem(s): Hyperlipemia High intensity statin January 2025 HDL 69, LDL 63 * Assessment & Plan Note - BEATRICE Johnson - 04/22/2025 10:56 AM EDT Associated Problem(s): Cardiomyopathy, ischemic ICM HF improved EF 40% January 2025 cardiac cath & 45-50% November 2024 TTE ( prior EF 35-40% Jul TTE & EF 30-35% post-op May 2023 TTE) FC II Stage C GDMT: Toprol XL Aldactone - off treatment unclear reasons. He needs to verify if has med at home. Jardiance -for some reason he interrupted it earlier this year, it was resumed December 2024 and he is tolerating without concerns. Entresto: Jul 02, 2023. Coverage approved November 2024: ADHF admit Narrow QRS 82 * Assessment & Plan Note - BEATRICE Johnson - 04/22/2025 10:54 AM EDT Associated Problem(s): HTN (hypertension) Optimal in office * Assessment & Plan Note - BEATRICE Jonhson - 04/22/2025 10:54 AM EDT Associated Problem(s): Atherosclerotic heart disease of alturas coronary artery with unspecified angina pectoris May 03, 2023 Anterior STEMI Two-vessel PCI of the diagonal branch & the ramus branch with subsequent intra- aortic balloon pump placement. He had chronic total occlusion of the mid LAD he was then transferred to [facility] : May 07, 2023 CABG ALVAREZ-LAD SVG-OM November 2024 TTE with moderate lateral and anterolateral hypokinesis. Recent admit adhf unclear etiology - will proceed with non invasive ischemic work up. January 2025 MPI moderate inferior ischemia. January 30, 2020 5 repeat cardiac cath ALVAREZ-LAD patent SVG-OM patent Mid RCA 50 to 70% Distal RCA 50-70% PDA occluded bwmj-cp-enunc collaterals Mid circumflex 95-99 (patent SVG-OM) LVEF 40% * Assessment & Plan Note - BEATRICE Johnson - 04/21/2025 1:27 PM EDT Associated Problem(s): Current smoker 'working hard on quitting' Maybe 5 per day Continued every day tobacco use. Have reviewed the negative cardiovascular impact of nicotine. Continues to decline pharmacological assistance. documented in this encounter Plan of Treatment Upcoming Encounters Date Type Department Care Team (Late st Contact Info) Description 08/24/2025 2:00 PM EST Office Visit [facility] [address] [address] Lexus Ernandez APRN-CNP [address] 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
--- OUTSIDE RECORDS SUMMARY | 2025-04-30 14:43 | XMS_ITS | Encounter Summary ---
Author Organization [facility] Address [address] [place] [address] Phone Care Team Providers Care Lump Maker Name Role Phone Juve Green MD Primary Care Provider + Juve Green MD Primary Care Provider + Encounter Details Date Type Department Care Team (Late st Contact Info) Description 11/05/2023 Scanned Document [facility] [address] [place] [phone] Scanning, Generic Provider Social History Tobacco Use Types Packs/Day Years Used Date Smoking Tobacco: Some Days Cigarettes Smokeless Tobacco: Never Alcohol Use Standard Drinks/Week Comments Never 0 (1 standard drink = 0.6 oz pur e alcohol) [facility] Utilities Answer Date Recorded In the past 12 months has [facility] [employer], [employer], oil, or water [employer] threatened to shut off services in your [...] relatives? Three times a week 05/12/2023 Attends [employer] Services Not on file 05/12 Active Member [...] Date Recorded Patient Health Questionnaire-2 Score 0 05/05/2023 [facility] - Occupational [...] place to sleep or slept in a custodial (including now)? No 05/12/2023 Sex and Gender Information Value Date Recorded Sex Assigned at Not on file Legal Sex Male 5:42 PM EST Gender Identity Not on file Sexual Orientation Not on file COVID-19 Exposure Response Date Recorded In the last 10 days, have yo u been in contact with someone who was confirmed or suspected to have Coronavirus/COVID-19? No / Unsure 10/23/2023 2:24 PM EDT documented as of this encounter Plan of Treatment Upcoming Encounters Date Type Department Care Team (Late st Contact Info) Description 08/24/2025 2:00 PM EST Office Visit [facility] [address] [phone] Lexus Ernandez, RUG INSPECTOR HELPER-BULB GROWER 7[address] [facility], [address] [place] [address] Scheduled Orders Name Type Priority Associated Diagnoses Orde r Schedule ULTRASOUND - ONBASE SCAN Imaging Ordered: 11/05/2023 documented as of this encounter Visit Diagnoses Not on filedocumented in this encounter Additional Health Concerns Assessment Noted Time A fall risk assessment has been complete d for the patient 05/24/2023 11:10 AM EDT documented as of this encounter Care Teams Lump Maker Relationship Specialty Start Date End Date Juve Green MD [address] [place] [address] PCP - General Family Medicine 10/23/23 04/20/25 Juve Green MD [address] [place] [address] PCP - General Family Medicine 04/21/25 documented as of this encounter
--- OUTSIDE RECORDS SUMMARY | 2025-04-30 14:43 | XMS_ITS | Encounter Summary ---
Author Organization [facility] Address [address] [place] [address] Phone Care Team Providers Care Pulp Machine Operator Name Role Phone Generic Provider, No Assigned Pcp Primary Car e Provider Unavailable Juve Green MD Primary Care Provider + Juve Green MD Primary Care Provider + Encounter Details Date Type Department Care Team (Late st Contact Info) Description 08/08/2023 Scanned Document [facility] [address] [place] [phone] Scanning, Generic Provider Social History Tobacco Use Types Packs/Day Years Used Date Smoking Tobacco: Former Cigarettes Q uit: 05/03/2023 Smokeless Tobacco: Never Alcohol Use Standard Drinks/Week Comments Never 0 (1 standard drink = 0.6 oz pur e alcohol) [facility] Utilities Answer Date Recorded In the past 12 months has [employer], gas, oil, or water [employer] threatened to shut off services in your [...] relatives? Three times a week 05/12/2023 Attends Hindu Services Not on file 05/12 Active Member [...] Recorded Patient Health Questionnaire-2 Score 0 05/05/2023 [facility] - Occupational [...] place to sleep or slept in a fci (including now)? No 05/12/2023 Sex and Gender Information Value Date Recorded Sex Assigned at Not on file Legal Sex Male 5:42 PM EST Gender Identity Not on file Sexual Orientation Not on file COVID-19 Exposure Response Date Recorded In the last 10 days, have yo u been in contact with someone who was confirmed or suspected to have Coronavirus/COVID-19? No / Unsure 07/16/2023 2:36 PM EST documented as of this encounter Plan of Treatment Upcoming Encounters Date Type Department Care Team (Late st Contact Info) Description 08/24/2025 2:00 PM EST Office Visit [facility] [address] [address] Lexus Ernandez, PM TECHNICIAN-FLASH DEVELOPER [address]03 [facility] [address] [place] [address] documented as of this encounter Visit Diagnoses Not on filedocumented in this encounter Additional Health Concerns Assessment Noted Time A fall risk assessment has been complete d for the patient 05/24/2023 11:10 AM EDT documented as of this encounter Care Teams Pulp Machine Operator Relationship Specialty Start Date End Date Generic Provider, No Assigned Pcp, PCP - General Family Medicine 05/23/23 10/22/23 Juve Green MD [address] [place] [address] PCP - General Family Medicine 10/23/23 04/20/25 Juve Green MD [address] [place] [address] PCP - General Family Medicine 04/21/25 documented as of this encounter
--- OUTSIDE RECORDS SUMMARY | 2025-04-30 14:43 | XMS_ITS | Encounter Summary ---
Author Organization [facility] Address [address] [place] [address] Care Team Providers Care Lawyer Name Role Phone Juve Green MD Primary Care Provider [phone] Eva Bedoya LPN Unavailable Unavailable Juve Green MD Primary Care Provider [phone] Encounter Details Date Type Department Care Team (Late st Contact Info) Description 01/28/2023 Clinisync Result Encounter [facility] External Department Unsolicited Luzmaria Gong MD [address] [facility] [address] [place] [address] Social History Tobacco Use Types Packs/Day Years Used Date Smoking Tobacco: Every Day Cigarettes Smokeless Tobacco: Never Alcohol Use Standard Drinks/Week Comments Yes 12 (1 standard drink = 0.6 oz pu re alcohol) Sex and Gender Information Value Date Recorded Sex Assigned at Male 12/28/2022 9:16 AM EDT Legal Sex Male 7:00 PM EDT Gender Identity Male 12/28/2022 9:16 AM EDT Sexual Orientation Straight 12/28/2022 9: 16 AM EDT documented as of this encounter Plan of Treatment Not on file documented as of this encounter Procedures Procedure Name Priority Date/Time Associated Diagnosis Comments CT MAXILLOFACIAL W/O CONTRAST 01/28/2023 5:02 PM EDT documented in this encounter Results * CT MAXILLOFACIAL W/O CONTRAST (01/28/2023 5:02 PM EDT) Anatomical Region Laterality Modality Other 01/28/2023 5:02 PM EDT Narrative 01/30/2023 1:07 PM EDT Exam Date/Time: 01/28/2023 17:10 EDT Reason for Exam: J32.4 Chronic pansinusitis Report IMPRESSION: THERE ARE POSTTRAUMATIC OSSEOUS DEFORMITIES OF THE RIGHT NASAL BONE AND THE BILATERAL MAXILLARY SINUSES WELL THE FLOOR OF THE RIGHT ORBIT. THERE IS A RIGHT GLOBE PROSTHESIS. THERE ARE DISPLACED OSSEOUS FRAGMENTS OF THE RIGHT ORBITAL FLOOR INTO THE RIGHT MAXILLARY SINUS WITH SURROUNDING SOFT TISSUE. THERE IS SOFT TISSUE OPACIFICATION OF THE LEFT MAXILLARY SINUS EXTENDING TO THE REGION OF THE OSTIOMEATAL COMPLEX AND AT THE LEVEL OF THE INFERIOR PORTION OF THE MEDIAL MAXILLARY SINUS WALL. EXAM: CT Maxillofacial w/o Contrast DATE: 01/28/2023 5:02 PM CLINICAL HISTORY: J32.4 Chronic pansinusitis. COMPARISON: None available. TECHNIQUE: Multiple images axial images were obtained without contrast administration. 3-D sagittal and coronal reconstructions were performed. All CT scans at this facility use dose modulation, iterative reconstruction, and/or weight based dosing when appropriate to reduce radiation dose to as low as reasonably achievable. SINUS CT FINDINGS: The visualized intracranial portions are within normal limits. There is a right globe prosthesis. The left globe is intact, the left orbit is within normal limits. There is discontinuity of the right from the midline which may be secondary to prior trauma. There is no significant overlying soft tissue swelling. There is evidence of prior trauma to the right orbital floor including a metallic screw with displacement and discontinuity of the orbital floor. There is a small metallic cerclage repair of the lateral right orbital rim. There are posttraumatic deformities of the anterior and posterior lateral wall of the right maxillary sinus. There is soft tissue three-vessel thickening extending from the inferior orbit to the medial wall of the maxillary sinus. The inferior turbinate bones is absent, likely secondary to prior surgery. There is narrowing of the ostiomeatal complex secondary to displaced osseous portions of the right inferior orbit. Report The nasal septum is midline. The left inferior turbinate bones is absent. There are posttraumatic deformities of the anterior, posterior lateral, and medial álvarez of the left orbit. There is mucoperiosteal thickening of the left maxillary sinus. The uncinate processes absent and there is soft tissue opacification of the ostiomeatal complex. There is discontinuity of the inferior medial wall of the orbit with soft tissue extending from the nasal cavities due to the maxillary sinus cavity. There is poor dentition with multiple apical lucencies worrisome for caries. The frontal sinuses are well aerated. The ethmoid sinuses are within normal limits. The sphenoid sinuses are unremarkable. There is a small left mastoid tip effusion. There are heavy vascular calcifications of the bilateral carotid bifurcations. Ordering Provider: Luzmaria Gong FINAL REPORT Dictated: 01/30/2023 1:03 pm Conor Barron MD, V. Signed (Electronic Signature): 01/30/2023 1:03 pm Signed by: Conor Barron MD, V. Transcribed by: FREDY Technologist: BOYD Procedure Note Radiology, Radiologist, - 01/30/2023 Exam Date/Time: 01/28/2023 17:10 EDT Reason for Exam: J32.4 Chronic pansinusitis Report IMPRESSION: THERE ARE POSTTRAUMATIC OSSEOUS DEFORMITIES OF THE RIGHTNASAL BONE AND THE BILATERAL MAXILLARY SINUSES WELL THE FLOOR OF THE RIGHT ORBIT. THERE IS A RIGHT GLOBE PROSTHESIS. THERE ARE DISPLACED OSSEOUS FRAGMENTS OF THE RIGHT ORBITAL FLOOR INTO THERIGHT MAXILLARY SINUS WITH SURROUNDING SOFT TISSUE. THERE IS SOFT TISSUE OPACIFICATION OF THE LEFT MAXILLARY SINUS EXTENDINGTO THE REGION OF THE OSTIOMEATAL COMPLEX AND AT THE LEVEL OF THE INFERIOR PORTIONOF THE MEDIAL MAXILLARY SINUS WALL. EXAM: CT Maxillofacial w/o Contrast DATE: 01/28/2023 5:02 PM CLINICAL HISTORY: J32.4 Chronic pansinusitis. COMPARISON: None available. TECHNIQUE: Multiple images axial images were obtained without contrast administration. 3-D sagittal and coronal reconstructions were performed. All CT scans at this facility use dose modulation, iterativereconstruction, and/or weight based dosing when appropriate to reduce radiation dose to as lowas reasonably achievable. SINUS CT FINDINGS: The visualized intracranial portions are within normal limits. There is a right globe prosthesis. The left globe is intact, the leftorbit is within normal limits. There is discontinuity of the right from the midline which may besecondary to prior trauma. There is no significant overlying soft tissue swelling. There isevidence of prior trauma to the right orbital floor including a metallic screw withdisplacement and discontinuity of the orbital floor. There is a small metallic cerclagerepair of the lateral right orbital rim. There are posttraumatic deformities of the anterior and posterior lateralwall of the right maxillary sinus. There is soft tissue three-vessel thickeningextending from the inferior orbit to the medial wall of the maxillary sinus. The inferiorturbinate bones is absent, likely secondary to prior surgery. There is narrowing ofthe ostiomeatal complex secondary to displaced osseous portions of the rightinferior orbit. Report The nasal septum is midline. The left inferior turbinate bones isabsent. There are posttraumatic deformities of the anterior, posterior lateral,and medial álvarez of the left orbit. There is mucoperiosteal thickening of the leftmaxillary sinus. The uncinate processes absent and there is soft tissueopacification of the ostiomeatal complex. There is discontinuity of the inferior medial wall ofthe orbit with soft tissue extending from the nasal cavities due to the maxillarysinus cavity. There is poor dentition with multiple apical lucencies worrisome forcaries. The frontal sinuses are well aerated. The ethmoid sinuses are within normal limits. The sphenoid sinuses are unremarkable. There is a small left mastoid tip effusion. There are heavy vascular calcifications of the bilateral carotidbifurcations. Ordering Provider: Luzmaria Gong FINAL REPORT Dictated: 01/30/2023 1:03 pm Conor Barron MD, V. Signed (Electronic Signature): 01/30/2023 1:03 pm Signed by: Conor Barron MD, V. Transcribed by: FREDY Technologist: BOYD Luzmaria Gong MD [facility] Final Resul t documented in this encounter Visit Diagnoses Not on filedocumented in this encounter Care Teams Lawyer Relationship Specialty Start Date End Date Juve Green MD PCP - General Cardiology 12/28/22 12/03/23 Juve Green MD PCP - General Family Medicine 12/04/23 Opp, Ardana, NETWORK CONTRACTOR Licensed Practical Nurse Family Medicine 11/22/23 documented as of this encounter
--- OUTSIDE RECORDS SUMMARY | 2025-04-30 14:44 | XMS_ITS | Encounter Summary ---
Author Organization [facility] Address [address] [place] [address] Phone Care Team Providers Care Chamber Walker Name Role Phone Juve Green MD Primary Care Provider + Encounter Details Date Type Department Care Team (Late st Contact Info) Description 04/21/2025 Telephone [facility] Medical Office Building [address] [facility] [address] [place] [phone] Lexus Ernandez, CLERK CASHIER-LABEL PRESS OPERATOR [address]03 [facility] [address] [place] [address] Social History Tobacco Use Types Packs/Day Years Used Date Smoking Tobacco: Some Days Cigarettes 0.3 4 Started: 2020 Passive Smoke Exposure: Never Smokeless Tobacco: Never Alcohol Use Standard Drinks/Week Comments Yes 0 (1 standard drink = 0.6 oz pur e alcohol) very rare [facility] Utilities Answer Date Recorded In the past 12 months has e [employer], gas, oil, or water [employer] threatened to shut off services in your [...] relatives? Three times a week 05/12/2023 Attends Gnosticist Services Not on file 05/12 Active Member [...] Recorded Patient Health Questionnaire-2 Score 0 05/27/2024 [facility] - Occupational Stress Questionnaire Answer Date Recorded [...] place to sleep or slept in a senior living (including now)? No 05/12/2023 Sex and Gender Information Value Date Recorded Sex Assigned at Not on file Legal Sex Male 5:42 PM EST Gender Identity Not on file Sexual Orientation Not on file documented as of this encounter Functional Status * BP Answer Date of Assessment Author 106/64 04/21/2025 1:07 PM EDT Danna Márquez LPN * Pulse Answer Date of Assessment Author 68 04/21/2025 1:07 PM EDT Danna Márquez LPN * Communicable Disease Screening Question Answer Date of Assessment Author Do you have any of the follo wing new or worsening symptoms? None of these 04/21/2025 12:54 PM EDT Cage, Jat oria documented as of this encounter Miscellaneous Notes * Telephone Encounter - Fernanda Salinas - 04/21/2025 2:[address] Chest w/o IV Contrast DX: R06.02, F17.200 at [facility] is pending clinical review-will upload clinical notes to the [facility] Portal when OV note from 04/21 is dictated-Tracking#-[id number].Spoke to Enmanuel Moctezuma at [facility]-call reference # is the tracking#. documented in this encounter Plan of Treatment Upcoming Encounters Date Type Department Care Team (Late st Contact Info) Description 08/24/2025 2:00 PM EST Office Visit [facility] [address] [facility] [address] [place] [phone] Lexus Ernandez, CLERK CASHIER-LABEL PRESS OPERATOR [address] [facility] [address] [place] [address] documented as of this encounter Visit Diagnoses Not on filedocumented in this encounter Additional Health Concerns Assessment Noted Time A fall risk assessment has been complete d for the patient 12/11/2024 10:20 AM EDT documented as of this encounter Care Teams Chamber Walker Relationship Specialty Start Date End Date Juve Green MD [address] [place] [address] PCP - General Family Medicine 04/21/25 documented as of this encounter
--- OUTSIDE RECORDS SUMMARY | 2025-04-30 14:44 | XMS_ITS | Encounter Summary ---
Author Organization [facility] Address [address] [place] [address] Phone Care Team Providers Care Bingo Usher Name Role Phone Juve Green MD Primary Care Provider + Encounter Details Date Type Department Care Team (Late st Contact Info) Description 04/22/2025 Telephone [facility] Medical Office Building [address] [facility] [address] [place] [phone] Lexus Ernandez, BOILER TENDER-BLOCKER HEATED METAL FORMS [address] [facility] [address] [place] [address] Social History Tobacco Use Types Packs/Day Years Used Date Smoking Tobacco: Some Days Cigarettes 0.3 4 Started: 2020 Passive Smoke Exposure: Never Smokeless Tobacco: Never Alcohol Use Standard Drinks/Week Comments Yes 0 (1 standard drink = 0.6 oz pur e alcohol) very rare [facility] Utilities Answer Date Recorded In the past 12 months has e [employer], gas, oil, or water [employer] threatened to shut off services in your [...] relatives? Three times a week 05/12/2023 Attends Mu-Ism Services Not on file 05/12 Active Member [...] Recorded Patient Health Questionnaire-2 Score 0 05/27/2024 [facility] - Occupational Stress Questionnaire Answer Date Recorded [...] place to sleep or slept in a prison (including now)? No 05/12/2023 Sex and Gender Information Value Date Recorded Sex Assigned at Not on file Legal Sex Male 5:42 PM EST Gender Identity Not on file Sexual Orientation Not on file documented as of this encounter Miscellaneous Notes * Telephone Encounter - Fernanda Salinas - 04/22/2025 11:[address] Chest w/o IV Contrast DX: R06.02, F17.200 at [facility] is pending clinical review-clinical documentation has been uploaded to the [facility] website-Tracking#-[id number]. documented in this encounter Plan of Treatment Upcoming Encounters Date Type Department Care Team (Late st Contact Info) Description 08/24/2025 2:00 PM EST Office Visit [facility] 703 [facility] [address] [place] [address] Lexus Ernandez, BOILER TENDER-BLOCKER HEATED METAL FORMS [address] [facility] [address] [place] [address] documented as of this encounter Visit Diagnoses Not on filedocumented in this encounter Additional Health Concerns Assessment Noted Time A fall risk assessment has been complete d for the patient 12/11/2024 10:20 AM EDT documented as of this encounter Care Teams Bingo Usher Relationship Specialty Start Date End Date Juve Green MD [address] [place] [phone] PCP - General Family Medicine 04/21/25 documented as of this encounter
--- OUTSIDE RECORDS SUMMARY | 2025-04-30 14:44 | XMS_ITS | Encounter Summary ---
Author Organization [facility] Address [address] [place] [address] Phone Care Team Providers Care Nut Dehydrator Operator Name Role Phone Juve Green MD Primary Care Provider + Encounter Details Date Type Department Care Team (Late st Contact Info) Description 04/28/2025 Telephone [facility] Medical Office Building [address] [facility] [address] [place] [phone] Lexus Ernandez, CRIMINAL DEFENSE ATTORNEY-BURNISHER AND BUMPER [address] [facility] [address] [place] [address] Social History Tobacco Use Types Packs/Day Years Used Date Smoking Tobacco: Some Days Cigarettes 0.3 4 Started: 2020 Passive Smoke Exposure: Never Smokeless Tobacco: Never Alcohol Use Standard Drinks/Week Comments Yes 0 (1 standard drink = 0.6 oz pur e alcohol) very rare [facility] Utilities Answer Date Recorded In the past 12 months has e [employer], gas, oil, or water [employer] threatened to shut off services in your [...] relatives? Three times a week 05/12/2023 Attends Pentecostalism Services Not on file 05/12 Active Member [...] Recorded Patient Health Questionnaire-2 Score 0 05/27/2024 [facility] - Occupational Stress Questionnaire Answer Date [...] place to sleep or slept in a m[facility]p (including now)? No 05/12/2023 Sex and Gender Information Value Date Recorded Sex Assigned at Not on file Legal Sex Male 5:42 PM EST Gender Identity Not on file Sexual Orientation Not on file documented as of this encounter Miscellaneous Notes * Telephone Encounter - Fernanda Salinas - 04/28/2025 8:28 AM EDT Received fax indicating that [facility] is requesting a recent copy of a chest x-ray-I see that one was ordered on 03/10/25 however it does not appear that the patient had this completed. The fax is indexedinto media theorist and author of. If Lexus Ernandez NP does not feel that the patient needs to have the chest x-ray,a P2P may be completed by calling [phone] and referencing tracking#-[id number]. The P2P does not need to be scheduled in advance however it should be completed soon. Spoke to Adelina Natarajan at [facility]-call reference#-[id number]. documented in this encounter Plan of Treatment Upcoming Encounters Date Type Department Care Team (Late st Contact Info) Description 08/24/2025 2:00 PM EST Office Visit [place] [id number] [address] Lexus Ernandez, CRIMINAL DEFENSE ATTORNEY-BURNISHER AND BUMPER [address] [facility] [address] [place] [address] documented as of this encounter Visit Diagnoses Not on filedocumented in this encounter Additional Health Concerns Assessment Noted Time A fall risk assessment has been complete d for the patient 12/11/2024 10:20 AM EDT documented as of this encounter Care Teams Nut Dehydrator Operator Relationship Specialty Start Date End Date Juve Green MD [address] [place] [address] PCP - General Family Medicine 04/21/25 documented as of this encounter
--- OUTSIDE RECORDS SUMMARY | 2025-04-30 14:44 | XMS_ITS | Clinical Summary ---
Author Organization [facility] Address [address] [place] [address] Phone Care Team Providers Care Balance Wheel Screw Hole Tapper Name Role Phone Juve Green MD Primary Care Provider + Allergies No known active allergies Medications multivitamin with minerals tabletIndications: S/P CABG x 2 Take 1 tablet by mouth once daily. Do not start before May 16, 2023. 05/16/20 23 Active omeprazole (PriLOSEC) [address] capsule Take 1 capsule (40 mg) by mouth twice a day. 09/20/19 23 Active oxyCODONE (Roxicodone) 5 mg immediate release tabletIndications: Post-operative pain Take 1 tablet (5 mg) by mouth every 4 hours if needed for severe pain (7 - 10). 25 tablet 02/28/20 24 Active furosemide (Lasix) 20 mg tabletIndications: Shortness of breath Take 1 tablet (20 mg) by mouth once daily. 30 tablet 11 03/17/20 24 Active Additional Information Patient taking differently: 30 mgoral Daily, Reported on 04/21/2025 sacubitriL-valsart an (Entresto) 49-51 mg tabletIndications: Cardiomyopathy, ischemic Take 1 tablet by mouth 2 times a day. 180 tablet 3 06/09/20 24 025 Active aspirin 81 mg EC tabletIndications: ST elevation myocardial infarction (STEMI), unspecified artery (Multi),Atheroscle rosis of ione coronary artery with angina pectoris, unspecified whether ione or transplanted heart,Coronary arteriography abnormal TAKE 1 TABLET (81 MG) BY MOUTH ONCE DAILY. 90 tablet 3 08/11/19 25 Active metoprolol succinate XL (Toprol-XL) 100 mg 24 hr tabletIndications: S/P CABG x 2,Hypertension, unspecified type TAKE ONE TABLET BY MOUTH ONCE DAILY -DO NOT CRUSH OR CHEW 90 tablet 3 08/20/19 25 Active DULoxetine (Cymbalta) [address] capsule Take 1 capsule (60 mg) by mouth once daily. 06/08/20 24 Active cyanocobalamin (Vitamin B-12) 500 mcg tablet Take 1 tablet (500 mcg) by mouth once daily. Active lamoTRIgine (LaMICtal) 25 mg tablet Take 2 tablets (50 mg) by mouth once daily at bedtime. 06/08/20 24 Active atorvastatin (Lipitor) 80 mg tabletIndications: History of PTCA,Hyperlipidemi a, unspecified hyperlipidemia type TAKE ONE TABLET BY MOUTH DAILY 90 tablet 3 11/12/19 25 Active empagliflozin (Jardiance) 10 mg tabletIndications: Cardiomyopathy, ischemic Take 1 tablet (10 mg) by mouth once daily. 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 May repeat dose every 5 minutes for up to 3 doses total. 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 Do not crush or chew. 30 tablet 02/24/20 Active budesonide-formote rol (Symbicort) 160-4.5 mcg/actuation inhalerIndications :Shortness of breath,Current smoker Inhale 2 puffs 2 times a day. Rinse mouth with water after use to reduce aftertaste and incidence of candidiasis. Do not swallow. 10.2 g 03/10/20 Active Active Problems Problem Noted Date Diagnosed Date Hypersomnolence 03/10/2025 Assessment & Plan (03/11/2025 10:12 AM EDT): Reports hypersomnolence, snoring and witnessed apnea. Ischemic cardiomyopathy BMI 33 Agrees to referral for sleep study History of PTCA 08/26/2024 Fatigue 12/03/2023 Edema of left upper arm 10/15/2023 Volume overload 10/15/2023 Congestive heart failure, [place] GIBSON class 2 and ACC/AHA stage C (Multi) 07/10/2023 Hyperlipemia 07/02/2023 Assessment & Plan (04/22/2025 10:56 AM EDT): High intensity statin January 2025 HDL 69, LDL 63 Assessment & Plan (03/11/2025 10:10 AM EDT): High intensity statin January 2025 HDL 69, LDL 63 Assessment & Plan (02/24/2025 2:42 PM EDT): High intensity statin January 2025 HDL 69, LDL 63 Assessment & Plan (12/11/2024 1:14 PM EDT): High intensity statin Will be managed by hawa Britton for annual labs Assessment & Plan (09/05/2023 11:13 AM EST): High intensity statin Will be managed by hawa Britton for annual labs Assessment & Plan (08/15/2023 3:47 PM EST): Tolerating high intensity Due for lipids Aug 2023 Assessment & Plan (07/04/2023 10:07 AM EST): Tolerating high intensity Due for lipids Aug 2023 BMI 32.0-32.9,adult 07/02/2023 Assessment & Plan (04/22/2025 10:56 AM EDT): Reviewed the merits of healthy lifestyle choices on overall cardiovascular health. Assessment & Plan (03/11/2025 10:10 AM EDT): Reviewed the merits of healthy lifestyle choices on overall cardiovascular health. Assessment & Plan (02/24/2025 2:42 PM EDT): Reviewed the merits of healthy lifestyle choices on overall cardiovascular health. Assessment & Plan (12/11/2024 1:14 PM EDT): Reviewed the merits of healthy lifestyle choices on overall cardiovascular health. Assessment & Plan (09/05/2023 11:13 AM EST): Reviewed the merits of healthy lifestyle choices on overall cardiovascular health. Assessment & Plan (08/15/2023 3:47 PM EST): Reviewed the merits of healthy lifestyle choices on overall cardiovascular health. Assessment & Plan (07/04/2023 10:07 AM EST): Reviewed the merits of healthy lifestyle choices on overall cardiovascular health. Shortness of breath 07/02/2023 Assessment & Plan (04/22/2025 10:57 AM EDT): Remains a persistent complaint. Short of breath at rest and with exertion. No evidence orthopnea or PND. No benefit from initiation of diuretic or increased antianginals. He does feel that a prior Symbicort inhaler does seem to help . February 2025 PFTs with no clear obstructive or restrictive disease. He is a current everyday smoker there is some documentation of a 2022 CT with lung nodules -PCP had ordered repeat but inadvertently did not obtain. Last month ordered chest x-ray and CT of chest-8 inadvertently did not complete. He has been seen by pulmonary [facility] today where he actually feels like he is doing better with initiation of Symbicort and his rescue inhaler. Assessment & Plan (03/11/2025 10:11 AM EDT): Remains a persistent complaint. Short of breath at rest and with exertion. No evidence orthopnea or PND. No benefit from initiation of diuretic or increased antianginals. He does feel that a prior Symbicort inhaler does seem to help . February 2025 PFTs with no clear obstructive or restrictive disease. He is a current everyday smoker there is some documentation of a 2022 CT with lung nodules -PCP had ordered repeat but inadvertently did not obtain. Assessment & Plan (02/24/2025 2:42 PM EDT): Remains a persistent complaint. Short of breath at rest and with exertion. No evidence orthopnea or PND. No benefit from initiation of diuretic. Former smoker but denies history of COPD. We will complete PFTs Assessment & Plan (07/04/2023 10:09 AM EST): Remains a persistent complaint. Short of breath at rest and with exertion. No evidence orthopnea or PND. No benefit from initiation of diuretic. Former smoker but denies history of COPD. We will complete PFTs Current smoker 07/02/2023 Assessment & Plan (04/21/2025 1:27 PM EDT): 'working hard on quitting' Maybe 5 per day Continued every day tobacco use. Have reviewed the negative cardiovascular impact of nicotine. Continues to decline pharmacological assistance. Assessment & Plan (03/10/2025 2:26 PM EDT): 'working hard on quitting' Maybe 5 per day Continued every day tobacco use. Have reviewed the negative cardiovascular impact of nicotine. Continues to decline pharmacological assistance. Assessment & Plan (02/23/2025 11:50 AM EDT): 'working hard on quitting' Maybe 5 per day Continued every day tobacco use. Have reviewed the negative cardiovascular impact of nicotine. Continues to decline pharmacological assistance. Assessment & Plan (12/11/2024 10:39 AM EDT): 'working hard on quitting' Maybe 5 per day Continued every day tobacco use. Have reviewed the negative cardiovascular impact of nicotine. Continues to decline pharmacological assistance. Assessment & Plan (09/03/2023 8:19 AM EST): Maybe one a day on occasions Continued every day tobacco use. Have reviewed the negative cardiovascular impact of nicotine. Continues to decline pharmacological assistance. Assessment & Plan (08/15/2023 3:50 PM EST): He was able to abstain he was able to abstain since discharge but over the last week he started smoking approximately 5 cigarettes daily. Is requesting NicoDerm patches and will provide. Assessment & Plan (07/02/2023 1:55 PM EST): Start at 17 y/o Quit 2007 - 2019 pack per day last 4 years Has been able to abstain since discharge Using nicoderm patches Cardiomyopathy, ischemic 06/20/2023 Assessment & Plan (04/22/2025 10:56 AM EDT): ICM HF improved EF 40% January 2025 cardiac cath & 45-50% November 2024 TTE ( prior EF 35-40% Jul 18, 2023 TTE & EF 30-35% post-op May 2023 [...] November 2024: ADHF admit Narrow QRS 82 Assessment & Plan (03/11/2025 10:10 AM EDT): ICM HF improved EF 40% January 2025 cardiac cath & 45-50% November 2024 TTE ( prior EF 35-40% Jul 18, 2023 TTE & EF 30-35% post-op May 2023 TTE) FC II Stage C GDMT: Toprol XL Aldactone - off treatment unclear reasons. Creatinine 1.8 and repeat 1.44 with potassium 4.3. Will resume. Jardiance -for some reason he interrupted it earlier this year, it was resumed December 2024 and he is tolerating without concerns. Entresto: Jul 02, 2023. Coverage approved November 2024: ADHF admit Narrow QRS 82 Assessment & Plan (02/24/2025 2:41 PM EDT): ICM HF improved EF 40% January 2025 cardiac cath & 45-50% November 2024 TTE ( prior EF 35-40% Jul 18, 2023 TTE & EF 30-35% post-op May 2023 TTE) FC II Stage C GDMT: Toprol XL Aldactone - off treatment unclear reasons. And it was 1.83. Will need to reassess prior to starting. Jardiance -for some reason he interrupted it earlier this year, it was resumed December 2024 and he is tolerating without concerns. Entresto: Jul 02, 2023. Coverage approved November 2024: ADHF admit Narrow QRS 82 Assessment & Plan (12/11/2024 1:14 PM EDT): ICM HF improved EF 45-50% November 2024 TTE ( prior EF 35-40% Jul 18, 2023 TTE & EF 30-35% post-op May 2023 TTE) FC II Stage C GDMT: Toprol XL Aldactone - off treatment unclear reasons Jardiance - stopped medication after shoulder surgery and was concerned causing nausea - agrees to rechallenge Entresto: Jul 02, 2023. Coverage approved November 2024: ADHF admit Assessment & Plan (09/05/2023 11:13 AM EST): ICM HFrEF 35-40% Jul 18, 2023 TTE ( EF 30-35% post-op May 2023 TTE FC II Stage C GDMT: Toprol XL Aldactone Jardiance Entresto: Jul 02, 2023. Coverage approved Assessment & Plan (08/15/2023 3:47 PM EST): ICM HFrEF 35-40% Jul 18, 2023 TTE ( EF 30-35% post-op May 2023 TTE FC IIB Stage C GDMT: Toprol XL Aldactone Jardiance Entresto: Jul 02, 2023. Coverage approved Assessment & Plan (07/04/2023 10:06 AM EST): ICM HFrEF 30-35% post-op May 2023 TTE At recent CTS follow up document EF 15-20% (I can not locate testing and patient declines echo during that OV) FC IIB Stage C GDMT: Toprol XL Aldactone Jardiance Entresto: although on medication list, patient has not been taking since discharge due to issues with coverage. Provided with samples, new script to pharmacy with diagnosis. Dr. Quick started Lasix a couple weeks ago with no noted benefit. Has repeat echo scheduled Jul 16, 2023 Lumbar radicular pain 05/22/2023 Chronic ethmoidal sinusitis 05/22/2023 Decreased sense of smell 05/22/2023 Post-op pain 05/08/2023 STEMI (ST elevation myocardial infarction) (Mult i) 05/06/2023 Atherosclerotic heart diseas e of ione coronary artery with unspecified angina pectoris 05/05/2023 Assessment & Plan (04/22/2025 10:54 AM EDT): May 03, 2023 Anterior STEMI Two-vessel PCI of the diagonal branch & the ramus branch with subsequent intra- aortic balloon pump placement. He had chronic total occlusion of the mid LAD he was then transferred to [facility] : May 07, 2023 CABG ALVAREZ-LAD SVG-OM November 2024 TTE with moderate lateral and anterolateral hypokinesis. Recent admit adhf unclear etiology - will proceed with non invasive ischemic work up. January 2025 MPI moderate inferior ischemia. January 30, 2020 5 repeat cardiac cath ALVAREZ-LAD patent SVG-OM patent Mid RCA 50 to 70% Distal RCA 50-70% PDA occluded msjj-hx-dxlal collaterals Mid circumflex 95-99 (patent SVG-OM) LVEF 40% Assessment & Plan (03/11/2025 10:09 AM EDT): May 03, 2023 Anterior STEMI Two-vessel PCI of the diagonal branch & the ramus branch with subsequent intra- aortic balloon pump placement. He had chronic total occlusion of the mid LAD he was then transferred to [facility] : May 07, 2023 CABG ALVAREZ-LAD SVG-OM November 2024 TTE with moderate lateral and anterolateral hypokinesis. Recent admit adhf unclear etiology - will proceed with non invasive ischemic work up. January 2025 MPI moderate inferior ischemia. January 30, 2020 5 repeat cardiac cath ALVAREZ-LAD patent SVG-OM patent Mid RCA 50 to 70% Distal RCA 50-70% PDA occluded ilug-xe-lsuva collaterals Mid circumflex 95-99 (patent SVG-OM) LVEF 40% Assessment & Plan (02/24/2025 2:40 PM EDT): May 03, 2023 Anterior STEMI Two-vessel PCI of the diagonal branch & the ramus branch with subsequent intra- aortic balloon pump placement. He had chronic total occlusion of the mid LAD he was then transferred to [facility] : May 07, 2023 CABG ALVAREZ-LAD SVG-OM November 2024 TTE with moderate lateral and anterolateral hypokinesis. Recent admit adhf unclear etiology - will proceed with non invasive ischemic work up. January 2025 MPI moderate inferior ischemia. January 30, 2020 5 repeat cardiac cath ALVAREZ-LAD patent SVG-OM patent Mid RCA 50 to 70% Distal RCA 50-70% PDA occluded jyjc-dk-ppyil collaterals Mid circumflex 95-99 (patent SVG-OM) LVEF 40% Presents today where he continues to report dyspnea on exertion and somewhat atypical chest pain (only occurs at rest and not with heavy exertion). Will add long- acting nitrates. He has also been a longstanding smoker denies any prior history of COPD but will check PFTs. Assessment & Plan (12/11/2024 1:12 PM EDT): May 03, 2023 Anterior STEMI Two-vessel PCI of the diagonal branch & the ramus branch with subsequent intra- aortic balloon pump placement. He had chronic total occlusion of the mid LAD he was then transferred to [facility] : May 07, 2023 CABG ALVAREZ-LAD SVG-OM Current activity at 4 METS without concerning symptoms November 2024 TTE with moderate lateral and anterolateral hypokinesis. Recent admit adhf unclear etiology - will proceed with non invasive ischemic work up. Assessment & Plan (09/05/2023 11:12 AM EST): May 03, 2023 Anterior STEMI Two-vessel PCI of the diagonal branch & the ramus branch with subsequent intra- aortic balloon pump placement. He had chronic total occlusion of the mid LAD he was then transferred to [facility] : May 07, 2023 CABG ALVAREZ-LAD SVG-OM Current activity at 4 METS without concerning symptoms Assessment & Plan (08/15/2023 3:45 PM EST): May 03, 2023 Anterior STEMI Two-vessel PCI of the diagonal branch & the ramus branch with subsequent intra- aortic balloon pump placement. He had chronic total occlusion of the mid LAD he was then transferred to [facility] : May 07, 2023 CABG ALVAREZ-LAD SVG-OM Assessment & Plan (07/04/2023 10:21 AM EST): May 03, 2023 Anterior STEMI Two-vessel PCI of the diagonal branch & the ramus branch with subsequent intra- aortic balloon pump placement. He had chronic total occlusion of the mid LAD he was then transferred to 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 03/06/2023 Anxiety 12/28/2022 Chronic maxillary sinusitis 12/28/2022 Disorder of right rotator cuff 12/28/2022 HTN (hypertension) 12/28/2022 Assessment & Plan (04/22/2025 10:54 AM EDT): Optimal in office Assessment & Plan (03/11/2025 10:09 AM EDT): Optimal in office Assessment & Plan (02/24/2025 2:40 PM EDT): Borderline in the office today Assessment & Plan (12/11/2024 1:12 PM EDT): Optimal with medication compliance Assessment & Plan (09/05/2023 11:12 AM EST): Optimal with medication compliance Assessment & Plan (08/15/2023 3:45 PM EST): Elevated in office Patient has been out of medication Assessment & Plan (07/04/2023 10:02 AM EST): optimal in office GERD (gastroesophageal reflux disease) Bilateral carpal tunnel syndrome 08/17/2022 Chronic bilateral low back pain without sciatica 08/17/2022 Chronic hip pain, bilateral 08/17/2022 Chronic pain of both shoulders 08/17/2022 Secondary osteoarthritis of multiple sites 08/17 Rotator cuff arthropathy, left 08/17/2022 Raynaud's phenomenon without gangrene 08/17/2022 Resolved Problems Problem Noted Date Diagnosed Date Resolved Date Arteriosclerosis of arterial coronary artery bypass graft 12/03/2023 08/26/2024 Currently attempting to quit smoking 10/15/2023 08/26/2024 Assessment & Plan (11/13/2023 10:36 AM EDT): Last couple days has been smoking 10 per day Assessment & Plan (10/23/2023 2:57 PM EDT): Is using nicoderm patches Assessment & Plan (10/15/2023 2:38 PM EDT): 4 - 10 per day Did better on nicoderm patches - will provide Continued every day tobacco use. Have reviewed the negative cardiovascular impact of nicotine. Acute LA, anterior wall (Multi) 06/18/2023 08/26/2024 Acute systolic heart failure (Multi) 05/06/2023 07/02/2023 Angina pectoris 05/06/2023 07/02/2023 Coronary arteriography abnormal 05/04/2023 07/02/2023 Encounters Date Type Department Care Team Description 04/28/2025 Telephone [facility] [address] [facility] [address] [place] [address] Lexus Ernandez RN AMBULATORY-EQUIPMENT MECHANIC 04/28/2025 Telephone [facility] [address] [facility] [address] [place] [address] Lexus Ernandez RN AMBULATORY-EQUIPMENT MECHANIC 04/22/2025 Telephone [facility] [address] [facility] [address] [place] [address] Lexus Ernandez, RN AMBULATORY-EQUIPMENT MECHANIC 04/21/2025 1:00 PM EDT Office Visit [address] [place] [address] Lexus Ernandez, RN AMBULATORY-EQUIPMENT MECHANIC Primary hypertension (Primary Dx); Atherosclerosis 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 pectoris; Cardiomyopathy, ischemic; Mixed hyperlipidemia; BMI 32.0-32.9,adult; Current smoker; Shortness of breath 04/21/2025 Telephone [facility] [address] [facility] [address] [place] [address] Lexus Ernandez RN AMBULATORY-EQUIPMENT MECHANIC 04/21/2025 Travel 03/17/2025 Refill [facility] [address] [facility] [address] [place] [phone] Saul Gonzales MD Coronary arteriography abnormal 03/10/2025 2:00 PM EDT Office Visit [address] [place] [address] Lexus Ernandez, RN AMBULATORY-EQUIPMENT MECHANIC Cardiomyopathy, ischemic (Primary Dx); Atherosclerosis 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 pectoris; Primary hypertension; Mixed hyperlipidemia; BMI 33.0-33.9,adult; Shortness of breath; Current smoker; Hypersomnolence 03/10/2025 Travel 03/01/2025 Orders Only [facility] [address] [place] [address] Lexus Ernandez RN AMBULATORY-EQUIPMENT MECHANIC 02/23/2025 11:30 AM EDT Office Visit [address] [address] Lexus Ernandez RN AMBULATORY-EQUIPMENT MECHANIC Cardiomyopathy, ischemic (Primary Dx); Atherosclerosis 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 pectoris; Mixed hyperlipidemia; Primary hypertension; BMI 31.0-31.9,adult; Current smoker; Shortness of breath 02/23/2025 Travel 02/04/[address] [place] [address] Donna Wynn LPN 01/29/2025 Scanned Document [facility] [address] [place] [address] Scanning, Generic Provider 01/29/2025 Orders Only [facility] [address] [place] [address] Lico Quick DO 01/28/2025 Telephone [facility] [address] [address] Lexus Ernandez APRN-JOHNATHON 01/28/2025 Telephone [facility] [address] [facility] [address] [place] [address] Lexus Ernandez, RN AMBULATORY-EQUIPMENT MECHANIC from Last 3 Months Immunizations Immunization Administration Dates Next Due Flu vaccine (IIV4), preservative free *Check age /dose* 05/15/2023 Flu vaccine, quadrivalent, n o egg protein, age 6 month or greater (FLUCELVAX) 08/07/2022 Influenza, seasonal, injectable 06/29/2020 Pneumococcal polysaccharide vaccine, 23-valent, age 2 years and older (PNEUMOVAX 23) 05/15/2023 Family History Medical History Relation Name Comments Rheum arthritis Brother Heart attack Mother Rheum arthritis Mother Relation Name Status Comments Brother Mother Social History Tobacco Use Types Packs/Day Years Used Date Smoking Tobacco: Some Days Cigarettes 0.3 4 Started: 2020 Passive Smoke Exposure: Never Smokeless Tobacco: Never Tobacco Cessation:Ready to Q uit: Yes; Counseling Given: Yes Alcohol Use Standard Drinks/Week Comments Yes 0 (1 standard drink = 0.6 oz pur e alcohol) very rare [facility] Utilities Answer Date Recorded In the past 12 months has e [email or web address], gas, oil, or water [employer] threatened to shut off services in your [...] relatives? Three times a week 05/12/2023 Attends Confucianism Services Not on file 05/12 Active Member [...] Recorded Patient Health Questionnaire-2 Score 0 05/27/2024 [facility] - [facility] [...] money to buy more. Never true 05/12/20 Within the past 12 months, t he [...] place to sleep or slept in a [place] [facility] [place] facility (including now)? No 05/12/2023 Sex and Gender Information Value Date Recorded Sex Assigned at Not on file Legal Sex Male 5:42 PM EST Gender Identity Not on file Sexual Orientation Not on file Last Filed Vital Signs Vital Sign Reading Time Taken Comments Blood Pressure 106/64 04/21/2025 1:07 PM EDT Pulse 68 04/21/2025 1:07 PM EDT Temperature 36.1 C (97 F) 03/14/2024 9:49 AM EDT Respiratory Rate 15 02/28/2024 10:45 AM EDT Oxygen Saturation 95% 02/28/2024 10:45 AM EDT Inhaled Oxygen Concentration - - Weight 95.3 kg (210 lb) 04/21/2025 1:07 PM EDT Height 170.2 cm (5' 7 ) 04/21/2025 1:07 PM EDT Body Mass Index 32.89 04/21/2025 1:07 PM EDT Plan of Treatment Upcoming Encounters Date Type Department Care Team (Late st Contact Info) Description 08/24/2025 2:00 PM EST Office Visit [facility] [address] [address] Lexus Ernandez, RN AMBULATORY-EQUIPMENT MECHANIC [address] [facility] [address] [place] [address] Health Maintenance Due Date Last Done Comments CT Colonography 1964 Colonoscopy 1964 Colorectal Cancer Screening 1964 FIT-DNA (Cologuard) 1964 FIT 1964 HIV Screening 1964 Sigmoidoscopy 1964 Yearly Adult Physical 1964 MMR Vaccines (1 of 1 - Standard series) 1965 Hepatitis C Screening 1982 DTaP/Tdap/Td Vaccines (1 - Tdap) 1986 PSA Prostate Cancer Screening 2014 Zoster Vaccines (1 of 2) 2014 Pneumococcal Vaccine (2 of 2 - PCV) 05/15/2024 05/15/2023 RSV High Risk: (Elderly (60+) or Population) (1 - Risk 60-74 years 1-dose series) 2024 Creatinine Level 02/09/2025 02/10/2024, , 05/15/2023, Additional history exists Diabetes Screening 02/09/2025 02/10/2024, 1 , 05/15/2023, Additional history exists Potassium Level 02/09/2025 02/10/2024, 05/06, 05/15/2023, Additional history exists COVID-19 Vaccine ( - season) 2025 Influenza Vaccine (#1) 2025 , 08/07/2022, 06/29/2020 Echocardiogram 11/18/2025 11/18/2024, 07/05, 05/13/2023, Additional history exists Lipid Panel 05/04/2028 05/04/2023 HIB Vaccines Aged Out No longer eligi ble based on patient's age to complete this topic HPV Vaccines Aged Out No longer eligi ble based on patient's age to complete this topic Hepatitis A Vaccines Aged Out No long er eligible based on patient's age to complete this topic Hepatitis B Vaccines Aged Out No long er eligible based on patient's age to complete this topic IPV Vaccines Aged Out No longer eligi ble based on patient's age to complete this topic Meningococcal Vaccine Aged Out No carlos joan eligible based on patient's age to complete this topic Rotavirus Vaccines Aged Out No longer eligible based on patient's age to complete this topic Medical Devices Implanted Type Area Utility Bag Assembler Device Identifier Shelf Expiration Date Model / Serial / Lot Screw Screw Right: Cheek Procedures Procedure Name Priority Date/Time Associated Diagnosis Comments NON-[facility] HIE BASIC METABOLIC PANEL Routine 03/01/2025 3:12 PM EDT ELECTROCARDIOGRAM 12 LEAD 2024 12:00 PM EDT NON-[facility] HIE COAGULATION PROFILE Routine 01/29/2025 11:55 AM EDT NON-[facility] H[facility] COMPLETE BLOOD COUNT AUTO DIFF Routine 01/29/2025 11:55 AM EDT NON-[facility] H[facility] LIPID PANEL Routine 11:44 AM EDT NON-[facility] HIE CREATININE Routine 01/29/2025 11:44 AM EDT NON-[facility] H[facility] BLOOD UREA NITROGEN Routine 01/29/2025 11:44 AM EDT NON-[facility] HIE ELECTROLYTES Routine 01/30/20 11:44 AM EDT ECHOCARDIOGRAM 11/18/2024 BASIC METABOLIC PANEL Routine 02/10/2024 3:54 PM EDT Chronic maxillary sinusitis LIPID PANEL Routine 05/04/2023 5:00 PM EDT from Last 3 Months or Most Recently Relevant to Health Maintenance Results * (ABNORMAL) NON-[facility] HIE Basic Metabolic Panel (03/01/2025 3:12 PM EDT) [facility] NON-[facility] HIE Glucose 92 70 - 100 mg/dL [facility] Comment:Random Glucose Refer ence Range is dependent on time and content of last meal. Glucose of more than 200 mg/dL in a nonstressed, ambulatory subject supports the diagnosis of Diabetes Mellitus. ADA recommended reference range NON-[facility] HIE Blood Urea Nitrogen 12 7 - 25 mg/dL [facility] NON-[facility] HIE Creatinine 1.44(H) 0.70 - 1.30 mg/dL [facility] NON-[facility] HIE ESTIMATED GFR 55.627 [facility] NON-[facility] HIE Sodium 140 136 - 145 mmol/L [facility] NON[facility] HIE Potassium 4.3 3.5 - 5.1 mmol/L [facility] NON-[facility] HIE Chloride 106 98 - 107 mmol/L [facility] NON[facility] HIE Carbon Dioxide 26.4 21.0 - 31.0 mmol/L [facility] NON-[facility] HIE Anion Gap 11.9 6.0 - 15.0 [facility] NON-[facility] HIE Calcium 9.6 8.6 - 10.3 mg/dL [facility] Comment:PERFORMED BY:[address] [id number] MEDICAL DIRECTORPEARL OLSON M.D. [facility] Plasma specimen or serum specimen or whole blood specimen 03/01/2025 3:12 PM EDT Lexus Ernandez RN AMBULATORY-EQUIPMENT MECHANIC LAB BLOOD ORDERABLES Yesi l Result [address] [address], [facility] [address] [place] [address] * Electrocardiogram (01/29/2025 12:00 PM EDT) 01/29/2025 12:0 0 PM EDT Narrative [facility] - 01/29/2025 3:53 PM EDT [facility] [address] [place] [address] [id number] Electrocardiograph Report Signed Patient: Tang Livingston MR#: [id number] : 1965 Acct:[id number] Age/Sex: 59 / M ADM Date: 01/29/25 Loc: CL Room: Type: [facility] Attending Dr: Hetal Quick DO Ordering Provider: Hetal Quick DO Date of Service: 01/29/25 ECG/ECG 12 lead ECG: [facility] Copies to: Test Reason : Blood Pressure : */* mmHG Vent. 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) Abnormal ECG When compared with ECG of 06-Jan-2025 09:30, premature supraventricular complexes are no longer present Right bundle branch block has replaced Nonspecific intraventricular block Questionable change in initial forces of Lateral leads Confirmed by Van Wright ([id number]) on 01/29/2025 3:53:13 PM Referred By: Electronically Signed By: Van Wright Transcribed By: MUS Signed By Van Wright MD 01/29/25 1453 us Lico Quick DO ECG ORDERABLES Final Resul t [facility] [address] [place] [address], [place] * (ABNORMAL) NON-[facility] HIE Complete Blood Count Auto Diff (01/29/2025 11:55 AM EDT) [facility] HIE White Blood Count 5.1 4.1 - 10.5 [CFU]/mL [facility] NON-[facility] HIE Uncorrected WBC 5.1 4.1 - 10.5 10*3/uL [facility] NON-[facility] HIE Red Blood Count 3.66(L) 3.90 - 5.60 10*6/uL [facility] NON-[facility] HIE Hemoglobin 10.5(L) 13.0 - 17.0 g/dL [facility] NON-[facility] HIE Hematocrit 32.7(L) 38.8 - 50.0 % [facility] NON-[facility] HIE Mean Corpuscular Volume 89.2 83.5 - 101 fL [facility] NON-[facility] HIE Mean Corpuscular Hemoglobin 28.7 27.5 - 35.2 pg [facility] NON-[facility] HIE Mean Corpuscular HGB Conc 32.2(L) 32.5 - 35.6 g/dL [facility] NON-[facility] HIE Red Cell Distribution Width 16.6(H) 12.0 - 14.8 % [facility] NON-[facility] HIE Platelet Count 352 150 - 450 10*3/uL [facility] NON[facility] HIE Mean Platelet Volume 7.5 6.6 - 10.1 fL [facility] NON[facility] HIE Neutrophils % (Auto) 66.3 . % [facility] NON[facility] HIE Lymphocytes % (Auto) 15.7 . % [facility] HIE Monocytes % (Auto) 9.0 . % [facility] NON[facility] HIE Eosinophils % (Auto) 8.6 . % [facility] NON-[facility] HIE Basophils % (Auto) 0.4 . % [facility] NON-[facility] HIE NRBC% 0.1 0 - 0.5 /100{WBC} [facility] NON-[facility] HIE Neutrophils # (Auto) 3.4 1.8 - 7.7 10*3/uL [facility] NON-[facility] HIE Lymphocytes # (Auto) 0.8(L) 1.00 - 4.8 10*3/uL [facility] NON-[facility] HIE Monocytes # (Auto) 0.5 0.0 - 0.8 10*3/uL [facility] NON-[facility] HIE Eosinophils # (Auto) 0.4 0.0 - 0.45 10*3/uL [facility] NON-[facility] HIE Basophils # (Auto) 0.0 0.0 - 0.2 10*3/uL [facility] Comment:PERFORMED BY:[facility] [place] [id number] MEDICAL DIRECTORPEARL OLSON M.D. [facility] Whole blood specimen 01/29/2025 11:55 AM EDT us Lico Quick DO LAB BLOOD ORDERABLES Final Result [facility] [address] [place] [address], [facility] [address] [place] [address] * NON-[facility] HIE Coagulation Profile (01/29/2025 11:55 AM EDT) [facility] HIE Prothrombin Time 10.8 9.0 - 12.9 s [facility] Comment:A hematocrit value g reater than 55% may lead to inaccurate results in coagulation testing. Patients having hematocrit values >55% require a special collection tube for coagulation studies. Please contact the laboratory at [phone] for redraw instructions. NON-[facility] HIE INR 0.9 [facility] Comment:INR Therapeutic Rang e A) Pre- and Peroperative OAT started two weeks before surgery. NOT HIP SURGERY: 1.5 - 2.5 HIP SURGERY: 2 - 3 B) Primary and secondary prevention of venous THROMBOSIS: 2 - 3 C) Active venous thrombosis, pulmonary embolism and prevention of recurrent venous thrombosis: 2 - 3 D) Prevention of arterial thromboembolism including patients with mechanical heart valves: 3 - 4.5 NON-[facility] HIE Partial Thromboplastin Time 27.9 25.1 - 36.5 s [facility] Comment:A hematocrit value g reater than 55% may lead to inaccurate results in coagulation testing. Patients having hematocrit values >55% require a special collection tube for coagulation studies. Please contact the laboratory at [phone] for redraw instructions.PERFORMED BY:[facility] [facility] [address], [place] [id number] MEDICAL DIRECTORPEARL OLSON M.D. [facility] Platelet poor plasma specimen 01/29/2025 11:55 AM EDT Lico Quick DO LAB BLOOD ORDERABLES Final Result [facility] [address] [place] [address], [facility] [address] [place] [address] * NON-[facility] HIE Blood Urea Nitrogen (01/29/2025 11:44 AM EDT) Pathologist [facility] NON-[facility] HIE Blood Urea Nitrogen 20 7 - 25 mg/dL [facility] Plasma specimen or serum specimen or whole blood specimen 01/29/2025 11:44 AM EDT Lico Quick DO LAB BLOOD ORDERABLES Final Result Performing Organization Address [facility] Co de Phone Number [facility] [address] [place] [address], [facility] [address] [place] [address] * NON-[facility] HIE Lipid Panel (01/29/2025 11:44 AM EDT) [facility] HIE Cholesterol 147 140 - 200 mg/dL [facility] Comment:Chol less than 200 m g/dl low risk Chol 201-239 mg/dl borderline risk Chol 240 mg/dl and greater high risk NON-[facility] HIE HDL Cholesterol 69 23 - 92 mg/dL [facility] Comment:HDL CHOL ATP-III CLA SSIFICATION Cardiovascular Risk HDL > or equal to 60 mg/dL LOW HDL < 40 mg/dL HIGH NON-[facility] HIE Triglyceride w/Reflex 74 0 - 149 mg/dL [facility] Comment:TRIG ATP III CLASSIF ICATION TRIG less than 150 mg/dL Normal TRIG 150-199 mg/dL Borderline high TRIG 200-500 mg/dL High TRIG greater than 500 mg/dL Very high Standard traceable to the Center for Disease Conrtrol and Prevention (CDC) test method. NON-[facility] HIE LDL Cholesterol,Calcula liss 63 0 - 100 mg/dL [facility] Comment:LDL ATP III CLASSIFI CATION LDL less than 100 mg/dL Optimal LDL 100-129 mg/dL Near or above optimal LDL 130-159 mg/dL Borderline high LDL 160-189 mg/dL High LDL greater than 189 mg/dL Very high NON-[facility] HIE VLDL CHOLESTEROL 14 mg/dL [facility] NON-[facility] HIE Chol/HDL Ratio 2.1 <5.0 [facility] Comment:PERFORMED BY:[facility] [place], [place] [id number] MEDICAL DIRECTORPEARL OLSON M.D. [facility] Plasma specimen or serum specimen or whole blood specimen 01/29/2025 11:44 AM EDT Lico Quick DO LAB BLOOD ORDERABLES Final Result [facility] [address] [place] [address], [facility] [address] [place] [address] * NON-[facility] HIE Electrolytes (01/29/2025 11:44 AM EDT) NON-[facility] HIE Sodium 138 136 - 145 mmol/L [facility] NON-[facility] HIE Potassium 4.4 3.5 - 5.1 mmol/L [facility] NON-[facility] HIE Chloride 105 98 - 107 mmol/L [facility] NON-[facility] HIE Carbon Dioxide 26.6 21.0 - 31.0 mmol/L [facility] NON-[facility] HIE Anion Gap 10.8 6.0 - 15.0 [facility] Plasma specimen or serum specimen or whole blood specimen 01/29/2025 11:44 AM EDT Lico Quick DO LAB BLOOD ORDERABLES Final Result [facility] [address] [place] [address], [facility] [address] [place] [address] * (ABNORMAL) NON-[facility] HIE Creatinine (01/29/2025 11:44 AM EDT) NON-[facility] HIE Creatinine 1.83(H) 0.70 - 1.30 mg/dL [facility] NON-[facility] HIE ESTIMATED GFR 41.724 [facility] NON-[facility] HIE Creatinine Clr Calc Pharmacy 46.33 [facility] Plasma specimen or serum specimen or whole blood specimen 01/29/2025 11:44 AM EDT Lico Quick LAB BLOOD ORDERABLES Final Result [facility] [address] [place] [address], [facility] [address] [place] [address] * Echocardiogram (11/18/2024) Narrative 11/18/2024 Ordered by an unspecified provider. Generic Provider Scanning CV ECHO PROCEDURES Fin al Result * (ABNORMAL) Basic Metabolic Panel (02/10/2024 3:54 PM EDT) [facility] Glucose 104(H) 74 - 99 mg/dL LAB CHEMISTRY METHOD 02/10/2024 5:56 PM EDT [facility] Sodium 138 136 - 145 mmol/L LAB CHEMISTRY METHOD 02/10/2024 5:56 PM EDT [facility] Potassium 4.4 3.5 - 5.3 mmol/L LAB CHEMISTRY METHOD 02/10/2024 5:56 PM EDT [facility] Chloride 106 98 - 107 mmol/L LAB CHEMISTRY METHOD 02/10/2024 5:56 PM EDT [facility] Bicarbonate 24 21 - 32 mmol/L LAB CHEMISTRY METHOD 02/10/2024 5:56 PM EDT [facility] Anion Gap 12 10 - 20 mmol/L LAB CHEMISTRY METHOD 02/10/2024 5:56 PM EDT [facility] Urea Nitrogen 14 6 - 23 mg/dL LAB CHEMISTRY METHOD 02/10/2024 5:56 PM EDT [facility] Creatinine 1.09 0.50 - 1.30 mg/dL LAB CHEMISTRY METHOD 02/10/2024 5:56 PM EDT [facility] eGFR 78 >60 mL/min/1. 73m*2 LAB CHEMISTRY METHOD 02/10/2024 5:56 PM EDT [facility] Comment: Calculations of estimated GFR are performed using the 2020 CKD-EPI Study Refit equation without the race variable for the IDMS-Traceable creatinine methods. https://jasn.asnjournals.org/content/early//ASN.8317210738 Calcium 9.7 8.6 - 10.6 mg/dL LAB CHEMISTRY METHOD 02/10/2024 5:56 PM EDT [facility] Blood Venous blood specimen / Unknown Venipuncture / Unknown 02/10/2024 3:54 PM EDT 02/10/2024 5:56 PM EDT Yves Goode RN AMBULATORY-EQUIPMENT MECHANIC, DNP LAB BLOOD ORDERABLES Final Result [facility] [address] [facility] [id number] [place] [address] * (ABNORMAL) Lipid panel (05/04/2023 5:00 PM EDT) Cholesterol 145 0 - 199 mg/dL LAB CHEMISTRY METHOD 05/04/2023 7:06 PM EDT [facility] Comment: Age Desirable Borderline High High 0-19 Y 0 - 169 170 - 199 >/= 200 20-24 Y 0 - 189 190 - 224 >/= 225 >24 Y 0 - 199 200 - 239 >/= 240 All ranges are based on fasting samples. Specific therapeutic targets will vary based on patient-specific cardiac risk. Pediatric guidelines reference:Pediatrics 2011, 128(S5).Adult guidelines reference: NCEP ATPIII Guidelines,JACKIE 2001, 258:2486-97 Venipuncture immediately after or during the administration of Metamizole may lead to falsely low results. Testing should be performed immediately prior to Metamizole dosing. HDL-Cholesterol 54.0 mg/dL LAB CHEMISTRY METHOD 05/04/2023 7:06 PM EDT [facility] Comment: Age Very Low Low Normal High 0-19 Y < 35 < 40 40-45 ---- 20-24 Y ---- < 40 >45 ---- >24 Y ---- < 40 40-60 >60 Cholesterol/HDL Ratio 2.7 LAB CHEMISTRY METHOD 05/04/2023 7:06 PM EDT [facility] Comment: Ref Values Desirable < 3.4 High Risk > 5.0 LDL Calculated 73(L) 140 - 190 mg/dL LAB CHEMISTRY METHOD 05/04/2023 7:06 PM EDT [facility] Comment: Near Borderline AGE Desirable Optimal High High Very High 0-19 Y 0 - 109 --- 110-129 >/= 130 ---- 20-24 Y 0 - 119 --- 120-159 >/= 160 ---- >24 Y 0 - 99 100-129 130-159 160-189 >/=190 VLDL 18 0 - 40 mg/dL LAB CHEMISTRY METHOD 05/04/2023 7:06 PM EDT [facility] Triglycerides 90 0 - 149 mg/dL LAB CHEMISTRY METHOD 05/04/2023 7:06 PM EDT [facility] Comment: Age Desirable Borderline High High Very High 0 D-90 D 19 - 174 ---- ---- ---- 91 D- 9 Y 0 - 74 75 - 99 >/= 100 ---- 10-19 Y 0 - 89 90 - 129 >/= 130 ---- 20-24 Y 0 - 114 115 - 149 >/= 150 ---- >24 Y 0 - 149 150 - 199 200- 499 >/= 500 Venipuncture immediately after or during the administration of Metamizole may lead to falsely low results. Testing should be performed immediately prior to Metamizole dosing. Non HDL Cholesterol 91 0 - 149 mg/dL LAB CHEMISTRY METHOD 05/04/2023 7:06 PM EDT [facility] Comment: Age Desirable Borderline High High Very High 0-19 Y 0 - 119 120 - 144 >/= 145 >/= 160 20-24 Y 0 - 149 150 - 189 >/= 190 ---- >24 Y 30 mg/dL above LDL Cholesterol goal Blood Venous blood specimen / Unknown Venipuncture / Unknown 05/04/2023 5:00 PM EDT 05/04/2023 5:01 PM EDT us Cedric Braun MD LAB BLOOD ORDERABLES Final Resul t [facility] [address] [id number] from Last 3 Months or Most Recently Relevant to Health Maintenance Insurance [address] [place] [address] [facility] AGED BLIND AND DISABLED [address] [place] [address] Advance Directives For more information, please contact: [phone] (Available ) * Full Code (Latest Code Status on File) Date Activated Date Inactivated Comments 05/07/2023 10:17 PM 05/15/2023 9:16 PM Question Answer Comments Plan of Care: Code Status Discussion Not Compl eted Decision Maker: Provider Rationale: Patient condition does not warra nt discussion * Full Code Date Activated Date Inactivated Comments 05/07/2023 10:01 PM 05/07/2023 10:17 PM Question Answer Comments Plan of Care: Code Status Discussion Completed Decision Maker: Patient * Full Code Date Activated Date Inactivated Comments 05/04/2023 4:19 AM 05/07/2023 10:01 PM Care Teams Balance Wheel Screw Hole Tapper Relationship Specialty Start Date End Date Juve Green MD [address] [place] [address] PCP - General Family Medicine 04/21/25
--- OUTSIDE RECORDS SUMMARY | 2025-04-30 14:44 | XMS_ITS | Encounter Summary ---
Author Organization [facility] Address [address] [place] [address] Care Team Providers Care Seasonal Package Handler Name Role Phone Juve Green MD Primary Care Provider [phone] Reason for Visit * Reason Comments Med Refill Encounter Details Date Type Department Care Team (Late st Contact Info) Description 03/27/2025 Refill [facility] [address] [facility] [address] [place] [address] Luzmaria Gong MD 112 [facility] [address] [place] [address] Chronic pansinusitis Social History Tobacco Use Types Packs/Day Years Used Date Smoking Tobacco: Former Cigarettes Smokeless Tobacco: Never Alcohol Use Standard Drinks/Week Comments Yes 12 (1 standard drink = 0.6 oz pu re alcohol) Social Connection and Isolat ion Panel [NHANES] Answer Date Recorded In a typical week, how many times do you talk on the phone with family, friends, or neighbors? More than three times a week 04/23/2024 How often do you get togethe r with friends or relatives? More than three times a week 04/23/2024 How often do you attend chur ch or restorationist services? Patient declined 04/23/2024 Do you belong to any clubs o r organizations such as restorationist groups, unions, fraternal or athletic groups, or school groups? No 04/23/2024 How often do you attend meet ings of the clubs or organizations you belong to? Never 04/23/2024 Are you , , di vorced, , never , or living with a partner? 04/23/2024 Overall Financial Resource Strain (CARDIA) Answe r Date Recorded How hard is it for you to pa y for the very basics like food, housing, medical care, and heating? Very hard 04/23/2024 [facility] - Occupational Stress Questionnaire Answer Date Recorded Do you feel stress - tense, restless, nervous, or anxious, or unable to sleep at night because your mind is troubled all the time - these days? To some extent 04/23/2024 Exercise Vital Sign Answer Date Recorde d On average, how many days pe r week do you engage in moderate to strenuous exercise (like a brisk walk)? 2 days 04/23/2024 On average, how many minutes do you engage in exercise at this level? 30 min 04/23/2024 Hunger Vital Sign Answer Date Recorded Within the past 12 months, y ou worried that your food would run out before you got the money to buy more. Often true Within the past 12 months, t he food you bought just didn't last and you didn't have money to get more. Sometimes true PRAPARE - Transportation Answer Date Re corded In the past 12 months, has l ack of transportation kept you from medical appointments or from getting medications? Yes 04/05 In the past 12 months, has l ack of transportation kept you from meetings, work, or from getting things needed for daily living? Yes 04/23/2024 Sex and Gender Information Value Date Recorded Sex Assigned at Male 12/28/2022 9:16 AM EDT Legal Sex Male 7:00 PM EDT Gender Identity Male 12/28/2022 9:16 AM EDT Sexual Orientation Straight 12/28/2022 9: 16 AM EDT documented as of this encounter Plan of Treatment Not on file documented as of this encounter Visit Diagnoses Diagnosis Chronic pansinusitis Other chronic sinusitis documented in this encounter Care Teams Seasonal Package Handler Relationship Specialty Start Date End Date Juve Green MD PCP - General Family Medicine 12/04/23 documented as of this encounter
--- OUTSIDE RECORDS SUMMARY | 2025-04-30 14:44 | XMS_ITS | Encounter Summary ---
Author Organization [facility] Address [address] [place] [address] Phone Care Team Providers Care Distance Education Teacher Name Role Phone Juve Green MD Primary Care Provider + Juve Green MD Primary Care Provider + Encounter Details Date Type Department Care Team (Late st Contact Info) Description 01/08/2025 Scanned Document [facility] [address] [place] [phone] Scanning, Generic Provider Social History Tobacco Use Types Packs/Day Years Used Date Smoking Tobacco: Some Days Cigarettes 0.3 4 Started: 2020 Passive Smoke Exposure: Never Smokeless Tobacco: Never Alcohol Use Standard Drinks/Week Comments Yes 0 (1 standard drink = 0.6 oz pur e alcohol) very rare [facility] Utilities Answer Date Recorded In the past 12 months has [employer], gas, oil, or water [employer] threatened to shut off services in your [...] Recorded Patient Health Questionnaire-2 Score 0 05/27/2024 [facility] - Occupational Stress [...] place to sleep or slept in a jail (including now)? No 05/12/2023 Sex and Gender Information Value Date Recorded Sex Assigned at Not on file Legal Sex Male 5:42 PM EST Gender Identity Not on file Sexual Orientation Not on file COVID-19 Exposure Response Date Recorded In the last 10 days, have yo u been in contact with someone who was confirmed or suspected to have Coronavirus/COVID-19? No / Unsure 12/11/2024 10:02 AM EDT documented as of this encounter Plan of Treatment Upcoming Encounters Date Type Department Care Team (Late st Contact Info) Description 08/24/2025 2:00 PM EST Office Visit [facility] [address] [phone] Lexus Ernandez, FAMILY HELPER-VISUAL MERCHANDISING SPECIALIST 7[address] [facility] [address] [place] [address] documented as of this encounter Visit Diagnoses Not on filedocumented in this encounter Additional Health Concerns Assessment Noted Time A fall risk assessment has been complete d for the patient 12/11/2024 10:20 AM EDT documented as of this encounter Care Teams Distance Education Teacher Relationship Specialty Start Date End Date Juve Green MD [address] [place] [address] PCP - General Family Medicine 10/23/23 04/20/25 Juve Green MD [address] [place] [phone] PCP - General Family Medicine 04/21/25 documented as of this encounter
--- OUTSIDE RECORDS SUMMARY | 2025-04-30 14:44 | XMS_ITS | Encounter Summary ---
Author Organization [facility] Address [address] [place] [address] Phone Care Team Providers Care Trademark Affixer Name Role Phone Juve Green MD Primary Care Provider + Encounter Details Date Type Department Care Team (Latest Contact Info) Description 04/21/2025 Travel Social History Tobacco Use Types Packs/Day Years Used Date Smoking Tobacco: Some Days Cigarettes 0.3 4 Started: 2019 Passive Smoke Exposure: Never Smokeless Tobacco: Never Alcohol Use Standard Drinks/Week Comments Yes 0 (1 standard drink = 0.6 oz pur e alcohol) very rare [facility] Utilities Answer Date Recorded In the past 12 months has e Categorical, gas, oil, or water [employer] threatened to shut off services in your [...] relatives? Three times a week 05/12/2023 Attends [employer] Not on file 05/12 Active Member [...] Recorded Patient Health Questionnaire-2 Score 0 05/27/2024 [facility] - [...] Jat oria documented as of this encounter Plan of Treatment Upcoming Encounters Date Type Department Care Team (Late st Contact Info) Description 08/24/2025 2:00 PM EST Office Visit [facility] [address] [facility] [address] [place] [address] Lexus Ernandez, METER INSPECTOR-MEDICAL PHYSIOLOGIST [address] [facility] [address] [place] [address] documented as of this encounter Visit Diagnoses Not on filedocumented in this encounter Additional Health Concerns Assessment Noted Time A fall risk assessment has been complete d for the patient 12/11/2024 10:20 AM EDT documented as of this encounter Care Teams Trademark Affixer Relationship Specialty Start Date End Date Juve Green MD [address] [place] [address] PCP - General Family Medicine 04/21/25 documented as of this encounter
--- OUTSIDE RECORDS SUMMARY | 2025-04-30 14:44 | XMS_ITS | Clinical Summary ---
Author Organization [facility] Address [address] [place] [address] Care Team Providers Care Credit Manager Name Role Phone Juve Green MD Primary Care Provider [phone] Allergies No known active allergies Medications ergocalciferol (Vitamin D2) 1.25 MG (36918 UT) capsule Take 50,000 Units by mouth 1 (one) time per week. Active fluticasone (Flonase) 50 MCG/ACT nasal sprayIndications: Chronic pansinusitis 2 SPRAYS IN EACH NOSTRIL EVERY MORNING *SHAKE GENTLY BEFORE FIRST USE/PRIME/MEL AN TIP AFTER USE* 16 mL 11 3 Active clopidogrel (Plavix) 75 MG tablet Take 75 mg by mouth Daily 4 Active metoprolol succinate XL (Toprol-XL) 100 MG 24 hr tablet TAKE ONE TABLET BY MOUTH ONCE DAILY -DO NOT CRUSH OR CHEW 4 Active aspirin 81 MG EC tablet Take 81 mg by mouth Daily Active triamcinolone (Kenalog) 0.5 % creamIndications: Dyshidrotic eczema APPLY TO AFFECTED AREA 3 TIMES A DAY 60 g 2 5 Active Jardiance 10 MG Take 10 mg by mouth Daily 5 Active Entresto 97-103 MG tablet Take 1 tablet by mouth in the morning and 1 tablet before bedtime. 5 Active furosemide (Lasix) 40 MG tabletIndications :Acute on chronic HFrEF (heart failure with reduced ejection fraction) (HCC) Take 1 tablet (40 mg) by mouth Daily 90 tablet 3 5 Active omeprazole (PriLOSEC) [address] capsuleIndication s:Gastroesophagea l reflux disease without esophagitis TAKE 1 CAPSULE BY MOUTH TWICE A DAY 180 capsule 5 5 Active DULoxetine (Cymbalta) [address] capsuleIndication s:MDD (major depressive disorder), recurrent episode, moderate (HCC) TAKE 1 CAPSULE BY MOUTH EVERY DAY *DO NOT CRUSH OR CHEW 90 capsule 1 5 Active isosorbide mononitrate ER (Imdur) 30 MG 24 hr tablet Take 30 mg by mouth in the morning. 5 02/24/20 26 Active nitroglycerin (Nitrostat) 0.[address] 0.4 mg under the tongue 5 Active spironolactone (Aldactone) 50 MG tabletIndications :Chronic HFrEF (heart failure with reduced ejection fraction) ([facility]) Take 1 tablet (50 mg) by mouth Daily 30 tablet 5 5 Active budesonide-formot eleonora (Symbicort) 160-4.5 MCG/ACT inhalerIndication s:Chronic obstructive pulmonary disease, unspecified COPD type (HCC) Inhale 2 puffs in the morning and 2 puffs in the evening. 5 03/10/20 26 Active atorvastatin (Lipitor) 80 MG tablet Take 80 mg by mouth Daily 5 Active albuterol HFA 90 mcg/act inhalerIndication s:Chronic obstructive pulmonary disease, unspecified COPD type (HCC) Inhale 2 puffs every 4 (four) hours if needed for shortness of breath or wheezing 18 g 2 5 Active lamoTRIgine (LaMICtal) 100 MG tabletIndications :Major depressive disorder, recurrent episode, moderate (HCC) Take 1 tablet (100 mg) by mouth at bedtime 90 tablet 3 5 Active oxyCODONE-acetami nophen (Percocet) 10-325 MG tabletIndications :Lumbar spondylosis Take 1 tablet by mouth every 4 (four) hours if needed for severe pain or moderate pain 180 tablet 5 04/15/20 25 Active Problems Problem Noted Date Diagnosed Date COPD (chronic obstructive pulmonary disease) Assessment & Plan (03/26/2025 12:00 PM EDT): SOB improved with symbicort and continue. Use albuterol PRN. Actinic keratosis 02/25/2025 Assessment & Plan (03/26/2025 12:00 PM EDT): Discussed premalignant nature of lesion and recommended cryo. Used liquid nitrogen to perform 3 freeze thaw cycles and patient tolerated well. Warned will form blister and likely will take multiple treatments. If develop new or worsening symptoms call. Assessment & Plan (02/25/2025 11:27 AM EDT): Lesion appears to be AK and will return for cryo. Chronic HFrEF (heart failure with reduced ejection fraction) 11/26/2024 Assessment & Plan (02/25/2025 11:26 AM EDT): Increased edema and increase aldactone. Follow with cardiology. Assessment & Plan (11/26/2024 12:19 PM EDT): Doing well and continue medication. Follow with cardiology. Pulmonary nodules 11/26/2024 Assessment & Plan (11/26/2024 12:19 PM EDT): Nodules noted on CT in 2022 and due for repeat. Preoperative clearance 07/07/2024 Assessment & Plan (07/07/2024 11:10 AM EST): Able to proceed with upcoming surgery at low to intermediate risk for complications. History of HTN and CAD but typically controlled with medication. No DM. Previously cleared by cardiology. Recent general anesthesia in February for sinus surgery and no complications. Recommend routine PAT. Dyshidrotic eczema 07/07/2024 Assessment & Plan (07/07/2024 11:08 AM EST): Start steroid cream Screening PSA (prostate specific antigen) 2023 Obesity (BMI 30-39.9) 04/23/2024 Colon cancer screening 04/23/2024 Assessment & Plan (04/23/2024 1:32 PM EDT): Never had colon cancer screening and refer to surgeon. Encounter for long-term current use of medicatio n 01/09/2024 Arthralgia of left hand 12/04/2023 Assessment & Plan (12/04/2023 2:17 PM EDT): Increased pain and stiffness likely related to arthritis. Start OTC voltaren gel. Edema of left upper arm 10/15/2023 Assessment & Plan (12/04/2023 2:18 PM EDT): Edema of hand likely related to OA. Normal US. Coronary artery disease 08/06/2023 Assessment & Plan (02/25/2025 11:26 AM EDT): Continued pain and monitor. Follow with cardiology. Assessment & Plan (07/07/2024 11:08 AM EST): No pain and monitor. Follow with cardiology. Primary osteoarthritis of left shoulder 08/06/19 Assessment & Plan (07/07/2024 11:10 AM EST): Increased pain and follow with ortho. Bilateral knee pain 08/06/2023 Chronic right shoulder pain 08/06/2023 DDD (degenerative disc disease), cervical 2023 Dyslipidemia 08/06/2023 Generalized anxiety disorder 08/06/2023 Assessment & Plan (02/25/2025 11:26 AM EDT): Mood controlled with medication and continue at current dose. Assessment & Plan (04/23/2024 1:32 PM EDT): Mood controlled with medication and continue at current dose. Assessment & Plan (01/09/2024 2:45 PM EDT): Mood improved with medication and continue at current dose. Assessment & Plan (12/04/2023 2:18 PM EDT): Symptoms worse and add lamictal to cymbalta. Warned will take 2-3 weeks to notice improvement in mood. Assessment & Plan (08/06/2023 3:09 PM EST): Symptoms worse and increase cymbalta. Warned will take 2-3 weeks to notice improvement in mood. Obstructive sleep apnea (adult) (pediatric) 09/2023 Chronic pain in right foot 08/06/2023 Prediabetes 08/06/2023 Ischemic cardiomyopathy 08/06/2023 Assessment & Plan (04/23/2024 1:33 PM EDT): Edema controlled with medication. Follow with cardiology. Assessment & Plan (01/09/2024 2:45 PM EDT): Edema controlled with medication. Follow with cardiology. Assessment & Plan (12/04/2023 2:18 PM EDT): Edema controlled with medication. Follow with cardiology. Assessment & Plan (08/06/2023 3:10 PM EST): Edema controlled with medication. Follow with cardiology. Major depressive disorder, recurrent episode, mo derate 08/06/2023 Assessment & Plan (03/26/2025 12:01 PM EDT): Worsening symptoms and increase lamictal. Continue cymbalta. Assessment & Plan (02/25/2025 11:26 AM EDT): Mood controlled with medication and continue at current dose. Assessment & Plan (04/23/2024 1:33 PM EDT): Mood controlled with medication and continue at current dose. Assessment & Plan (01/09/2024 2:45 PM EDT): Mood improved with medication and continue at current dose. Assessment & Plan (12/04/2023 2:18 PM EDT): Symptoms worse and add lamictal to cymbalta. Warned will take 2-3 weeks to notice improvement in mood. Assessment & Plan (08/06/2023 3:10 PM EST): Symptoms worse and increase cymbalta. Warned will take 2-3 weeks to notice improvement in mood. Lumbar spondylosis 07/09/2023 Assessment & Plan (02/25/2025 11:26 AM EDT): Pain unchanged and use percocet PRN. Discussed risks and benefits of opiate therapy. Warned medication is narcotic and risk of addiction. OARRS reviewed. Assessment & Plan (04/23/2024 1:33 PM EDT): Pain unchanged and use percocet PRN. Discussed risks and benefits of opiate therapy. Warned medication is narcotic and risk of addiction. OARRS reviewed. Assessment & Plan (01/09/2024 2:45 PM EDT): Pain worse and increase quantity of percocet to use PRN. Discussed risks and benefits of opiate therapy. Warned medication is narcotic and risk of addiction. OARRS reviewed. Assessment & Plan (08/06/2023 3:10 PM EST): Pain unchanged and use percocet PRN. Discussed risks and benefits of opiate therapy. Warned medication is narcotic and risk of addiction. OARRS reviewed. 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 Assessment & Plan (11/26/2024 12:18 PM EDT): BP controlled and monitor PRN. Assessment & Plan (07/07/2024 11:08 AM EST): BP elevated but previously controlled and monitor PRN. Assessment & Plan (04/23/2024 1:31 PM EDT): BP controlled and monitor PRN. Assessment & Plan (01/09/2024 2:45 PM EDT): BP controlled and monitor PRN. Assessment & Plan (12/04/2023 2:17 PM EDT): BP controlled and monitor PRN. Assessment & Plan (08/06/2023 3:09 PM EST): BP elevated today but normal at home. Monitor. GERD (gastroesophageal reflux disease) Assessment & Plan (04/23/2024 1:33 PM EDT): Symptoms controlled with omeprazole and continue. Assessment & Plan (08/06/2023 3:09 PM EST): Symptoms controlled with protonix and continue. Chronic sinusitis 12/28/2022 Resolved Problems Problem Noted Date Diagnosed Date Resolved Date Acute on chronic HFrEF (hear t failure with reduced ejection fraction) 01/21/2025 02/25/2025 Assessment & Plan (01/21/2025 12:06 PM EDT): Recent admission and medication adjusted. Doing well and monitor daily weights. Follow up with cardiology. FRANCISCO (generalized anxiety disorder) 12/28/2022 08/06/2023 Encounters Date Type Department Care Team Description 03/27/2025 Refill [facility] [address] [place] [address] Luzmaria Gong MD Chronic pansinusitis 03/26/2025 12:00 PM EDT Procedure Visit [facility] [address] [place] [address] Juve Green MD Major depressive disorder, recurrent episode, moderate (HCC) (Primary Dx); Chronic obstructive pulmonary disease, unspecified COPD type (HCC); Actinic keratosis 03/26/2025 Bamboo flowsheet [facility] [address] [place] [address] Juve Green MD 03/16/2025 Refill [facility] [address] [place] [address] Juve Green MD Lumbar spondylosis 02/25/2025 10:45 AM EDT [facility] [address] [place] [address] Juve Green MD Benign essential hypertension (Primary Dx); Chronic HFrEF (heart failure with reduced ejection fraction) (HCC); Coronary artery disease involving lovelock coronary artery of lovelock heart without angina pectoris ; Lumbar spondylosis; Recurrent depressive disorder, current episode mild ; Generalized anxiety disorder ; Actinic keratosis 02/25/2025 Bamboo flowsheet [facility] [address] [place] [address] Juve Green MD 02/24/2025 [facility] [address] [place] [address] Juve Green MD MDD (major depressive disorder), recurrent episode, moderate (HCC) 02/16/2025 [facility]ill [facility] [address] [place] [address] Juve Green MD Lumbar spondylosis 02/08/2025 [facility]ill [facility] [address] [facility] [place] [address] Juve Green MD Gastroesophageal reflux disease without esophagitis from Last 3 Months Immunizations Immunization Administration Dates Next Due Influenza, injectable, MDCK, preservative free, quadrivalent 08/07/2022 Influenza, seasonal, injectable 06/29/2020 Family History Medical History Relation Name Comments Heart failure Mother Rheum arthritis Mother Other Paternal Grandmother Heart p roblems Relation Name Status Comments Mother Paternal Grandmother Social History Tobacco Use Types Packs/Day Years Used Date Smoking Tobacco: Former Cigarettes Smokeless Tobacco: Never Tobacco Cessation:Counseling Given: Not Answered Alcohol Use Standard Drinks/Week Comments Yes 12 [...] often do you attend chur ch or muslim services? Patient declined 04/23/2024 Do you belong to any clubs o r organizations such as mandaeism groups, unions, fraternal or athletic groups, or [...] medical care, and heating? Very hard 04/23/2024 [facility] Occupat ional Health - Occupational Stress [...] Orientation Straight 12/28/2022 9: 16 AM EDT Last Filed Vital Signs Vital Sign Reading Time Taken Comments Blood Pressure 138/80 03/26/2025 11:34 AM EDT Pulse 69 03/26/2025 11:34 AM EDT Temperature 36.4 C (97.5 F) 03/26/2025 11:34 AM EDT Respiratory Rate 22 03/26/2025 11:34 AM EDT Oxygen Saturation 98% 03/26/2025 11:34 AM EDT Inhaled Oxygen Concentration - - Weight 92.5 kg (204 lb) 03/26/2025 11:34 AM EDT Height 170.2 cm (5' 7 ) 03/26/2025 11:34 AM EDT Body Mass Index 31.95 03/26/2025 11:34 AM EDT Plan of Treatment Health Maintenance Due Date Last Done Comments CT Colonography 1965 Colonoscopy 1965 Colorectal Cancer Screening 1965 FIT-DNA 1965 FIT 1965 FOBT 1965 Sigmoidoscopy 1965 Influenza Vaccine (#1) 2025 05/15/2023, 2022, 06/29/2020 Insurance [employer] Care Teams Credit Manager Relationship Specialty Start Date End Date Juve Green MD PCP - General Family Medicine 12/04/23
--- OUTSIDE RECORDS SUMMARY | 2025-04-30 14:44 | XMS_ITS | Patient Health Record ---
Author Organization [facility] Address [address] [facility] [place] [address] Care Team Providers Care Brick Tender Name Role Phone Dr. Juan Pennington Primary Care Provider Tonja Ham Unavailable [phone] Results Component Value Reference Range Notes ECG 12 lead ECG Reviewed date:11/19/2024 08:20:04 PM Interpretation: Performing Lab: Notes/Report: [facility] Main [address] [address] Electrocardiograph Report Signed Patient: [place] Latham MR#: [id number] [id number] : 1965 Acct:[id number] Age/Sex: 59 / M ADM Date: 11/18/24 Loc: Room: [address] [place] [address] Type: ADM IN Attending Dr: Kermit Iraheta MD Ordering Provider: Conchita Ivy DO, RES Date of Service: 11/19/24 ECG/ECG 12 lead ECG: SOB Copies to: Test Reason : Blood Pressure : */* mmHG Vent. Rate : 86 BPM Atrial Rate : 86 BPM P-R Int : 132 ms QRS Dur : 122 ms QT Int : 412 ms P-R-T Axes : 55 -85 41 degrees QTcB Int : 493 ms Normal sinus rhythm Right bundle branch block Left anterior fascicular block Bifascicular block Lateral infarct (cited on or before 09-Jul-2024) Abnormal ECG When compared with ECG of 18-Nov-2024 16:56, (Unconfirmed) No significant change was found Confirmed by MANISHA PINEDA, EARNEST ([id number]) on 11/19/2024 12:25:42 PM Referred By: Electronically Signed By: EARNEST FLORES MD Transcribed By: MUS Signed By Earnest Flores MD 0 11/19/24 1225 [facility] echo transthoracic Reviewed date:11/19/2024 08:20:02 PM Interpretation: Performing Lab: Notes/Report: [facility] Main [place] [address] [place], [place] [id number] Echocardiogram Signed Patient: [place] Latham MR#: [id number] [id number] : 1965 Acct:[id number] Age/Sex: 59 / M ADM Date: 11/18/24 Loc: Room: [address] [place] [address] Type: ADM IN Attending Dr: Kermit Iraheta MD Ordering Provider: Conchita Ivy DO, RES Date of Service: 11/18/24 [facility] echo transthoracic: SOB, CHF Copies to: MD Conchita Kelly DO, RES Weight: 213 lb Performed By: Tee Herrmann RDCS, T BSA: 2.1 m2 BP: 126/73 mmHg HR: 79 Reason For Study: SOB, CHF History: CHF, Pre-op, Tobacco use, ICM, STEMI Interpretation Summary Mild concentric left ventricular hypertrophy. Ejection Fraction = 45-50%. A variety of Doppler measurements indicate impaired left ventricular relaxation, which is associated with grade I/IV or mild diastolic dysfunction. Moderate lateral and anterolateral wall hypokinesis The left atrium appears mildly dilated. There is trace mitral regurgitation. There is trace tricuspid regurgitation. There is no comparison study available. Procedure/Quality: A two-dimensional transthoracic echocardiogram with color flow, Doppler and injection of contrast agent Definity was performed. A two- dimensional transthoracic echocardiogram with color flow and Doppler was performed. The study was technically good in quality. Left Ventricle: The left ventricular size is normal. Mild concentric left ventricular hypertrophy. Ejection Fraction = 45-50%. A variety of Doppler measurements indicate impaired left ventricular relaxation, which is associated with grade I/IV or mild diastolic dysfunction. Moderate lateral and anterolateral wall hypokinesis. Left Atrium: The left atrium appears mildly dilated. The atrial septum appears normal. Right Atrium: The right atrium appears normal in size. Right Ventricle: The right ventricular size, thickness and function are normal. Aortic Valve: The aortic valve is normal in structure and function. No aortic regurgitation is present. Mitral Valve: The mitral valve is normal in structure and function. There is trace mitral regurgitation. Tricuspid Valve: The tricuspid valve is normal in structure and function. There is trace tricuspid regurgitation. Pulmonic Valve: The pulmonic valve is normal in structure and function. Arteries: The aortic root is normal size. Pericardium/Pleura: No pericardial effusion seen. There is no pleural effusion. IVC/Hepatic Veins: The inferior vena cava is normal in size, with a normal collapsibility index. Measurements with Normals IVSd: 1.4 cm (0.7-1.1 cm)LVIDd: 5.5 cm (3.7-5.4 cm) LVPWd: 1.4 cm (0.7-1.1 cm)LVIDs: 4.0 cm (2.3-3.6 cm) LA dimension: 4.0 cm (2.3-4.0 cm)Ao root diam: 3.3 cm(2.0-3.6 cm) asc Aorta Diam: 3.5 cm(2.1-3.4cm) Doppler with Normals RVSP(TR): 14.2 mmHg (18-35mmHg) LV V1 max: 85.3 cm/sec (0.7-1.7m/s)MV E max cl: 126.0 cm/sec(0.8-1.3m/s) MV A max cl: 83.1 cm/sec(0.0-0.0m/s) MV E/A: 1.5 (<1.5) MMode/2D Measurements Calculations TAPSE: 1.8 cm FS: 27.3 % Ao root area: LVOT diam: 2.1 cm RV S Cl: EDV(Teich): 8.6 cm2 LVOT area: 3.5 cm2 8.3 cm/sec 147.4 ml ESV(Teich): 70.0 ml EF(Teich): 52.5 % __ LVLd ap4: 9.7 cm SV(MOD-sp4): LAV(MOD-sp4): LA A2 area: 24.7 cm2 EDV(MOD-sp4): 91.0 ml 72.6 ml 226.0 ml LAV(MOD-sp2): LA A4 area: 23.7 cm2 LVLs ap4: 8.2 cm 85.2 ml LA length (vol): ESV(MOD-sp4): 6.1 cm 135.0 ml LA vol: 81.2 ml EF(MOD-sp4): 40.3 % LA vol index: 39.1 ml/m2 Doppler Measurements Calculations MV dec time: MV V2 max: E/E' lat: 13.3 MV P1/2t max cl: 0.23 sec 109.0 cm/sec E/E' med: 20.3 108.0 cm/sec MV max PG: MV P1/2t: 66.8 msec 56.0 mmHg MV V2 mean: MVA(P1/2t): 3.3 cm2 68.6 cm/sec MV dec slope: MV mean P.5 cm/sec2 2.0 mmHg MV V2 VTI: 42.9 cm MVA(VTI): 1.3 cm2 __ Ao V2 max: LV V1 max PG: MR max cl: TV max P.0 mmHg 142.0 cm/sec 2.9 mmHg 374.0 cm/sec Ao max PG: LV V1 mean PG: MR max P.1 mmHg 1.0 mmHg 56.0 mmHg Ao mean PG: LV V1 mean: 4.0 mmHg 54.7 cm/sec Ao V2 mean: LV V1 VTI: 16.3 cm 94.5 cm/sec Ao V2 VTI: 26.6 cm GÉNESIS(I,D): 2.1 cm2 GÉNESIS(V,D): 2.1 cm2 __ TR max cl: 167.0 cm/sec TR max P.2 mmHg RAP systole: 3.0 mmHg Transcribed By: AMOS Performed At: 04/17/25 0918 Signed By: Earnest Flores MD 11/19/24 1052 Reason For Referral No Information Medications Medication SIG (Take, Route, Fr equency, Duration) Notes Start Date End Date Status Ibuprofen 800 MG 1 tablet with food o r milk as needed Orally Three times a day 08/31/2020 Active Encounters Encounter Location Date Provider Diagnosis [facility] [address] [place] [address] 05/07/2024 Juan Aditi Dental caries on pit and fissure surface penetrating into dentin K02.52 and Cracked tooth K03.81 Assessments Encounter Date Diagnosis (ICD Code) Assessment Notes Treatment Notes Treatment Clinical Notes Section Notes 05/07/2024 Dental caries on pit and fissure surface penetrating into dentin (ICD-10 - K02.52) 05/07/2024 Cracked tooth (ICD-10 - K03.81) Plan Of Treatment No Information Insurance Providers Payer Name Payer Address Payer Phone Subscriber Number Group Number Insured Name Patient Relationship to Insured Coverage Start Date Coverage End Date [employer]-ter[employer] [address] [place] [address] [id number] MORGAN LATHAM Self - patient is the insured 1 3 [employer] [place] Medicaid [address] [place] [address] [id number] MORGAN LATHAM Self - patient is the insured 3 zMEDICAID C after [employer] [address] [place] [address] [id number] MORGAN LATHAM Self - patient is the insured 1 3 Wrap ABD [employer] [address] [place] [address] [id number] MORGAN LATHAM Self - patient is the insured 3 zDENTAL DQ [employer] 22 [address] [place] [address] [id number] DORITY, MORGAN Self - patient is the insured 1 3 zDental Medicaid ABD after [employer] 22 [address] [place] [address] [id number] MORGAN LATHAM Self - patient is the insured 1 3 Dental [employer] [place] [address] [place] [address] [id number] MORGAN LATHAM Self - patient is the insured 3 Dental Wrap ABD [employer] [address] [place] [address] [phone] [id number] MORGAN LATHAM Self - patient is the insured 3
--- OUTSIDE RECORDS SUMMARY | 2025-04-30 14:44 | XMS_ITS | Encounter Summary ---
Author Organization [facility] Address [address] [place] [address] Phone Care Team Providers Care Repacker Name Role Phone Juve Green MD Primary Care Provider + Encounter Details Date Type Department Care Team (Late st Contact Info) Description 04/28/2025 Telephone [facility] Medical Office Building [address] [facility] [address] [place] [phone] Lexus Ernandez, TIMBER SUPERVISOR-NOVELTY MAKER [address] [facility] [address] [place] [address] Social History Tobacco Use Types Packs/Day Years Used Date Smoking Tobacco: Some Days Cigarettes 0.3 4 Started: 2020 Passive Smoke Exposure: Never Smokeless Tobacco: Never Alcohol Use Standard Drinks/Week Comments Yes 0 (1 standard drink = 0.6 oz pur e alcohol) very rare [facility] Utilities Answer Date Recorded In the past 12 months has e [employer], gas, oil, or water [employer] threatened to shut off services in your [...] relatives? Three times a week 05/12/2023 Attends Orthodoxy Services Not on file 05/12 Active Member [...] Recorded Patient Health Questionnaire-2 Score 0 05/27/2024 [facility] - Occupational Stress Questionnaire Answer Date Recorded [...] place to sleep or slept in a mcc (including now)? No 05/12/2023 Sex and Gender Information Value Date Recorded Sex Assigned at Not on file Legal Sex Male 5:42 PM EST Gender Identity Not on file Sexual Orientation Not on file documented as of this encounter Miscellaneous Notes * Telephone Encounter - Fernanda Salinas - 04/28/2025 2:22 PM EDT Per email from Cassie in the office, Lexus Ernandez TECHNOLOGY SALES REPRESENTATIVE requested that the [place] of the Chest [address] be cancelled and for the patient to only have a chest x-ray. I called [facility] and spoke to Adelina Natarajan who cancelledthe test-call reference is Adelina Natarajan-[phone]. documented in this encounter Plan of Treatment Upcoming Encounters Date Type Department Care Team ([facility] st Contact Info) Description 08/24/2025 2:00 PM EST Office Visit [facility] [address] [facility] [address] [place] [address] Lexus Ernandez, TIMBER SUPERVISOR-NOVELTY MAKER [address] [facility] [address] [place] [address] documented as of this encounter Visit Diagnoses Not on filedocumented in this encounter Additional Health Concerns Assessment Noted Time A fall risk assessment has been complete d for the patient 12/11/2024 10:20 AM EDT documented as of this encounter Care Teams Repacker Relationship Specialty Start Date End Date Juve Green MD [address] [place] [address] PCP - General Family Medicine 04/21/25 documented as of this encounter
--- OUTSIDE RECORDS SUMMARY | 2025-04-30 14:44 | XMS_ITS | Encounter Summary ---
Author Organization [facility] Address [address] [place] [address] Phone Care Team Providers Care Inspector Canned Food Reconditioning Name Role Phone Juve Green MD Primary Care Provider + Juve Green MD Primary Care Provider + Encounter Details Date Type Department Care Team (Late st Contact Info) Description 01/29/2025 Scanned Document [facility] [address] [place] [phone] Scanning, Generic Provider Social History Tobacco Use Types Packs/Day Years Used Date Smoking Tobacco: Some Days Cigarettes 0.3 4 Started: 2020 Passive Smoke Exposure: Never Smokeless Tobacco: Never Alcohol Use Standard Drinks/Week Comments Yes 0 (1 standard drink = 0.6 oz pur e alcohol) very rare [facility] Utilities Answer Date Recorded In the past 12 months has [employer], gas, oil, or water [employer] threatened to shut off services in your [...] relatives? Three times a week 05/12/2023 Attends Hoahaoism Services Not on file 05/12 Active Member [...] Recorded Patient Health Questionnaire-2 Score 0 05/27/2024 [facility] of Occupat ional Health - Occupational Stress [...] place to sleep or slept in a long term (including now)? No 05/12/2023 Sex and Gender Information Value Date Recorded Sex Assigned at Not on file Legal Sex Male 5:42 PM EST Gender Identity Not on file Sexual Orientation Not on file documented as of this encounter Plan of Treatment Upcoming Encounters Date Type Department Care Team (Late st Contact Info) Description 08/24/2025 2:00 PM EST [facility] [address] [facility] [address] [place] [address] Lexus Ernandez, TYPEWRITER ASSEMBLER-[facility] [address] [facility] [address] [place] [address] documented as of this encounter Visit Diagnoses Not on filedocumented in this encounter Additional Health Concerns Assessment Noted Time A fall risk assessment has been complete d for the patient 12/11/2024 10:20 AM EDT documented as of this encounter Care Teams Inspector Canned Food Reconditioning Relationship Specialty Start Date End Date Juve Green MD [address] [place] [address] PCP - General Family Medicine 10/23/23 04/20/25 Juve Green MD [address] [place] [address] PCP - General Family Medicine 04/21/25 documented as of this encounter
--- OUTSIDE RECORDS SUMMARY | 2025-04-30 14:44 | XMS_ITS | Encounter Summary ---
Author Organization [facility] Address [address] [place] [address] Phone Care Team Providers Care Systems Designer Name Role Phone Juve Green MD Primary Care Provider + Juve Green MD Primary Care Provider + Reason for Visit * Reason Comments Med Refill Encounter Details Date Type Department Care Team (Late st Contact Info) Description 03/17/2025 Refill [facility] [address] [facility] [address] [place] [phone] Saul Gonzales MD [address] [facility] [address] [place] [address] Coronary arteriography abnormal Social History Tobacco Use Types Packs/Day Years Used Date Smoking Tobacco: Some Days Cigarettes 0.3 4 Started: 2020 Passive Smoke Exposure: Never Smokeless Tobacco: Never Alcohol Use Standard Drinks/Week Comments Yes 0 (1 standard drink = 0.6 oz pur e alcohol) very rare [facility] Utilities Answer Date Recorded In the past 12 months has e electric, gas, oil, or water company threatened to shut off services in your [...] relatives? Three times a week 05/12/2023 Attends Christian Services Not on file 05/12 Active Member [...] Recorded Patient Health Questionnaire-2 Score 0 05/27/2024 [facility] of Occupat ional Health - Occupational [...] place to sleep or slept in a snf (including now)? No 05/12/2023 Sex and Gender Information Value Date Recorded Sex Assigned at Not on file Legal Sex Male 5:42 PM EST Gender Identity Not on file Sexual Orientation Not on file documented as of this encounter Miscellaneous Notes * Telephone Encounter - Elida Elise RN - 03/26/2025 4:07 PM EDT Not a medication prescribed by Dr. Gonzales documented in this encounter Plan of Treatment Upcoming Encounters Date Type Department Care Team (Late st Contact Info) Description 08/24/2025 2:00 PM EST Office Visit [facility] [address] [facility] [address] [place] [address] Lexus Ernandez, POOL ATTENDANT-DEEP TISSUE MASSAGE THERAPIST [address] [facility] [address] [place] [address] documented as of this encounter Visit Diagnoses Diagnosis Coronary arteriography abnormal Other nonspecific abnormal cardiovascular system function study documented in this encounter Additional Health Concerns Assessment Noted Time A fall risk assessment has been complete d for the patient 12/11/2024 10:20 AM EDT documented as of this encounter Care Teams Systems Designer Relationship Specialty Start Date End Date Juve Green MD [address] [place] [address] PCP - General Family Medicine 10/23/23 04/20/25 Juve Green MD [address] [place] [address] PCP - General Family Medicine 04/21/25 documented as of this encounter
--- NOTE | 2025-04-30 14:45 | XR_ITS ---
The [address] [address] Patient Name: MORGAN LATHAM MRN: [id number] date: 1965 Sex: M Assigned Patient Location: [facility] Current Patient Location: [facility] Accession/Order Number: [id number] Exam Date: 04/30/2025 14:58 Report Date: 04/30/2025 16:06 At the request of: ODILIA CHAN NP Procedure: XR chest 2V Chest 2 views CLINICAL HISTORY: Shortness Of Breath COMPARISON: Chest 05/03/2023 FINDINGS: Sternotomy wires are noted. Heart is normal in size. No lung consolidation pneumothorax, large pleural effusion or free air. XR/XR chest 2V IMPRESSION: NO ACUTE CARDIOPULMONARY ABNORMALITY. Impression dictated by: Juan Stone Jr., D.O. 04/30/2025 4:06 PM Dictation Location: [place] [address] Electronically authenticated by: [id number] Y Date: 04/30/2025 16:06
--- OUTSIDE RECORDS SUMMARY | 2025-04-30 14:45 | XMS_ITS | Encounter Summary ---
Author Organization [facility] Address [address] [place] [address] Care Team Providers Care Teamcenter Solution Architect Name Role Phone Juve Green MD Primary Care Provider Reason for Visit * Reason Comments Med Refill Encounter Details Date Type Department Care Team (Late st Contact Info) Description 05/07/2024 Refill [facility] [address] [place] [address] Luzmaria Gong MD [address] [place] [address] Chronic pansinusitis Social History Tobacco Use Types [...] often do you attend chur ch or voodoo services? Patient declined 04/23/2024 Do you belong to any clubs o r organizations such as bahai groups, unions, fraternal or athletic groups, or [...] medical care, and heating? Very hard 04/23/2024 [facility] - Occupational Stress Questionnaire Answer Date Recorded [...] sinusitis documented in this encounter Care Teams Teamcenter Solution Architect Relationship Specialty Start Date End Date Juve Green MD PCP - General Family Medicine 12/04/23 documented as of this encounter
--- OUTSIDE RECORDS SUMMARY | 2025-04-30 14:45 | XMS_ITS | Encounter Summary ---
Author Organization [facility] Address [address] [place] [address] Phone Care Team Providers Care Yard Jacker Name Role Phone Juve Green MD Primary Care Provider + Juve Green MD Primary Care Provider + Encounter Details Date Type Department Care Team (Late st Contact Info) Description 01/07/2025 Scanned Document [facility] [address] [place] [phone] Scanning, Generic Provider Social History Tobacco Use Types Packs/Day Years Used Date Smoking Tobacco: Some Days Cigarettes 0.3 4 Started: 2020 Passive Smoke Exposure: Never Smokeless Tobacco: Never Alcohol Use Standard Drinks/Week Comments Yes 0 (1 standard drink = 0.6 oz pur e alcohol) very rare [facility] Utilities Answer Date Recorded In the past 12 months has [employer], gas, oil, or water [employer] threatened to shut off services in your [...] relatives? Three times a week 05/12/2023 Attends Zoroastrian Services Not on file 05/12 Active Member [...] Recorded Patient Health Questionnaire-2 Score 0 05/27/2024 [facility] of Occupat ional Health - [...] Description 08/24/2025 2:00 PM EST Office Visit [facility] [address] [phone] Lexus Ernandez, TURBINE ENGINE ASSEMBLER-CORPORATE COMPLIANCE MANAGER [address] [facility] [address] [place] [address] documented as of this encounter Visit Diagnoses Not on filedocumented in this encounter Additional Health Concerns Assessment Noted Time A fall risk assessment has been complete d for the patient 12/11/2024 10:20 AM EDT documented as of this encounter Care Teams Yard Jacker Relationship Specialty Start Date End Date Juve Green MD [address] [place] [address] PCP - General Family Medicine 10/23/23 04/20/25 Juve Green MD [address] [place] [address] PCP - General Family Medicine 04/21/25 documented as of this encounter
--- OUTSIDE RECORDS SUMMARY | 2025-04-30 14:45 | XMS_ITS | Encounter Summary ---
Author Organization [facility] Address [address] [place] [address] Care Team Providers Care Vacuum Drier Operator Name Role Phone Juve Green MD Primary Care Provider [phone] Reason for Visit * Reason Comments Med Refill Encounter Details Date Type Department Care Team (Late st Contact Info) Description 11/03/2024 Refill [facility] [address] [place] [address] Juve Green MD [address] [facility] [place] [phone] MDD (major depressive disorder), recurrent episode, moderate (HCC) Social History Tobacco Use Types Packs/Day Years [...] 04/23/2024 How often do you attend chur or mandaen services? Patient declined 04/23/2024 Do you belong to any clubs o r organizations such as baptist groups, unions, fraternal or athletic groups, or [...] medical care, and heating? Very hard 04/23/2024 [facility] - Occupational Stress Questionnaire Answer [...] AM EDT documented as of this encounter Miscellaneous Notes * Telephone Encounter - Griselda Muller MA - 11/03/2024 3:51 PM EDT [facility] documented in this encounter Plan of Treatment Not on file documented as of this encounter Visit Diagnoses Diagnosis MDD (major depressive disorder), recurrent episode, moderate (HCC) documented in this encounter Care Teams Vacuum Drier Operator Relationship Specialty Start Date End Date Juve Green MD PCP - General Family Medicine 12/04/23 documented as of this encounter
--- OUTSIDE RECORDS SUMMARY | 2025-04-30 14:45 | XMS_ITS | Encounter Summary ---
Author Organization [facility] Address [address] [place] [address] Phone Care Team Providers Care Adjunct Professor Of Voice Name Role Phone Juve Green MD Primary Care Provider + Juve Green MD Primary Care Provider + Encounter Details Date Type Department Care Team (Late st Contact Info) Description 01/06/2025 Scanned Document [facility] [address] [place] [phone] Scanning, Generic Provider Social History Tobacco Use Types Packs/Day Years Used Date Smoking Tobacco: Some Days Cigarettes 0.3 4 Started: 2020 Passive Smoke Exposure: Never Smokeless Tobacco: Never Alcohol Use Standard Drinks/Week Comments Yes 0 (1 standard drink = 0.6 oz pur e alcohol) very rare [facility] Utilities Answer Date Recorded In the past 12 months has [employer], gas, oil, or water [employer] threatened to shut off services in your [...] relatives? Three times a week 05/12/2023 Attends Restoration Services Not on file 05/12 Active Member [...] Recorded Patient Health Questionnaire-2 Score 0 05/27/2024 [facility] of Occupat ional Health - Occupational [...] place to sleep or slept in a group home (including now)? No 05/12/2023 Sex and Gender [...] Description 08/24/2025 2:00 PM EST Office Visit [facility] [address] [phone] Lexus Ernandez, RETAIL MERCHANDISING COORDINATOR-PACKING LINE WORKER 703 [facility] [address], [address] [place] [address] documented as of this encounter Procedures Procedure Name Priority Date/Time Associated Diagnosis Comments OUTSIDE IMAGING SCAN 01/06/2025 documented in this encounter Results * OUTSIDE IMAGING SCAN (01/06/2025) Anatomical Region Laterality Modality Other Narrative 01/06/2025 Ordered by an unspecified provider. us Generic Provider Scanning OUTSIDE SCAN Final Result documented in this encounter Visit Diagnoses Not on filedocumented in this encounter Additional Health Concerns Assessment Noted Time A fall risk assessment has been complete d for the patient 12/11/2024 10:20 AM EDT documented as of this encounter Care Teams Adjunct Professor Of Voice Relationship Specialty Start Date End Date Juve Green MD [address] [place] [address] PCP - General Family Medicine 10/23/23 04/20/25 Juve Green MD [address] [place] [address] PCP - General Family Medicine 04/21/25 documented as of this encounter
--- OUTSIDE RECORDS SUMMARY | 2025-04-30 14:45 | XMS_ITS | Encounter Summary ---
Author Organization [facility] Address [address] [place] [address] Phone Care Team Providers Care Consulting Services Associate Name Role Phone Juve Green MD Primary Care Provider + Juve Green MD Primary Care Provider + Encounter Details Date Type Department Care Team (Late st Contact Info) Description 07/09/2024 Scanned Document [facility] [address] [place] [phone] Scanning, Generic Provider Social History Tobacco Use Types Packs/Day Years Used Date Smoking Tobacco: Some Days Cigarettes 0.3 4 Started: 2020 Passive Smoke Exposure: Never Smokeless Tobacco: Never Alcohol Use Standard Drinks/Week Comments Not Currently 0 (1 standard drink = 0.6 oz pur e alcohol) very rare [facility] Utilities Answer Date Recorded In the past 12 months has [employer] gas, oil, or water [employer] threatened to shut off services in your [...] relatives? Three times a week 05/12/2023 Attends Moravian Services Not on file 05/12 Active Member [...] Recorded Patient Health Questionnaire-2 Score 0 05/27/2024 [facility] - Occupational Stress Questionnaire Answer [...] place to sleep or slept in a penitentiary (including now)? No 05/12/2023 Sex and Gender Information Value Date Recorded Sex Assigned at Not on file Legal Sex Male 5:42 PM EST Gender Identity Not on file Sexual Orientation Not on file documented as of this encounter Plan of Treatment Upcoming Encounters Date Type Department Care Team (Late st Contact Info) Description 08/24/2025 2:00 PM EST Office Visit [facility] 703 [facility] [address] [place] [address] Lexus Ernandez, ENTERTAINMENT DIRECTOR-[facility] 7[address] [facility] [address], [address] [place] [address] documented as of this encounter Visit Diagnoses Not on filedocumented in this encounter Additional Health Concerns Assessment Noted Time A fall risk assessment has been complete d for the patient 05/27/2024 2:50 PM EDT documented as of this encounter Care Teams Consulting Services Associate Relationship Specialty Start Date End Date Juve Green MD [address] [place] [address] PCP - General Family Medicine 10/23/23 04/20/25 Juve Green MD [address] [place] [address] PCP - General Family Medicine 04/21/25 documented as of this encounter
--- OUTSIDE RECORDS SUMMARY | 2025-04-30 14:45 | XMS_ITS | Encounter Summary ---
Author Organization [facility] Address [address] [place] [address] Phone Care Team Providers Care Rural Mail Carrier Name Role Phone Juve Green MD Primary Care Provider + Juve Green MD Primary Care Provider + Encounter Details Date Type Department Care Team (Late st Contact Info) Description 12/25/2024 Transcribe Orders [facility] [address] [place] [address] Juve Green MD [address] [facility] [place] [address] Other nonspecific abnormal finding of lung field (Primary Dx) Social History Tobacco Use Types Packs/Day Years Used Date Smoking Tobacco: Some Days Cigarettes 0.3 4 Started: 2019 Passive Smoke Exposure: Never Smokeless Tobacco: Never Alcohol Use Standard Drinks/Week Comments Yes 0 (1 standard drink = 0.6 oz pur e alcohol) very rare [facility] Utilities Answer Date Recorded In the past 12 months has [employer] electric, gas, oil, or water company threatened [...] relatives? Three times a week 05/12/2023 Attends Quaker Services Not on file 05/12 Active Member [...] Recorded Patient Health Questionnaire-2 Score 0 05/27/2024 [facility] - Occupational Stress Questionnaire Answer Date [...] Description 08/24/2025 2:00 PM EST Office Visit [facility] [address] [address] Lexus Ernandez, POLYSOMNOGRAPHY TECHNOLOGIST-SENIOR MAINTENANCE MACHINIST 703 [facility] [address], [address] [place] [address] documented as of this encounter Visit Diagnoses Diagnosis Other nonspecific abnormal finding of lung field- Primary documented in this encounter Additional Health Concerns Assessment Noted Time A fall risk assessment has been complete d for the patient 12/11/2024 10:20 AM EDT documented as of this encounter Care Teams Rural Mail Carrier Relationship Specialty Start Date End Date Juve Green MD [address] [place] [address] PCP - General Family Medicine 10/23/23 04/20/25 Juve Green MD [address] [place] [address] PCP - General Family Medicine 04/21/25 documented as of this encounter
--- OUTSIDE RECORDS SUMMARY | 2025-04-30 14:45 | XMS_ITS | Encounter Summary ---
Author Organization [facility] Address [address] [place] [address] Care Team Providers Care Faculty Neuropsychologist Name Role Phone Juve Green MD Primary Care Provider [phone] Reason for Visit * Reason Comments Med Refill Encounter Details Date Type Department Care Team (Late st Contact Info) Description 11/24/2024 Refill [facility] [address] [facility] [address] [place] [address] Luzmaria Gong MD 112 [facility] 130 [place] [address] Chronic pansinusitis Social History Tobacco Use Types [...] often do you attend chur ch or christianity services? Patient declined 04/23/2024 Do you belong to any clubs o r organizations such as baptism groups, unions, fraternal or athletic groups, or [...] medical care, and heating? Very hard 04/23/2024 [facility] - Occupational Stress Questionnaire Answer Date Recorded [...] sinusitis documented in this encounter Care Teams Faculty Neuropsychologist Relationship Specialty Start Date End Date Juve Green MD PCP - General Family Medicine 12/04/23 documented as of this encounter
--- OUTSIDE RECORDS SUMMARY | 2025-04-30 14:45 | XMS_ITS | Patient Health Record ---
Author Organization [facility] in [place] Address [address] [place] [address] Care Team Providers Care Group Director Name Role Phone Juve Green MD Primary Care Provider Unavailab le Allergies No Known Allergies Reason For Referral No Information Medications Medication SIG (Take, Route, Frequency, Duration) Notes Start Date End Date Status Cetirizine HCl 10 MG Oral; Duration: 90 Days Active Clopidogrel Bisulfate 75 MG Oral; Duration: 30 Days Active DULoxetine HCl 30 MG Oral; Duration: 90 Days Active oxyCODONE-Acetaminophen 10-325 MG Oral; Duration: 30 Days Active Pantoprazole Sodium 40 MG Oral; Duration: 30 Days Active Aspirin Low Dose 81 MG Oral; Duration: 9 0 Days Active Spironolactone 25 MG Oral; Duration: 30 Days Active Atorvastatin Calcium 80 MG Oral; Duration: 30 Days Active Vitamin D (Ergocalciferol) 1.25 MG (88587 UT) Oral; Duration: 90 Days Active Furosemide 20 MG Oral; Duration: 90 Days Active Jardiance 10 MG Oral; Duration: 30 Days Active Lyrica 50 MG 1 capsule Orally Twice a day; Duration: 30 days Called to pharmacy ([facility]) Active Metoprolol Succinate ER 100 MG TAKE 1 TABLET (100 MG) BY MOUTH ONCE DAILY. DO NOT CRUSH OR CHEW. Oral; Duration: 30 Days Active Nicotine 14 MG/24HR PLACE 1 PATCH OVER 24 HOURS ON THE SKIN ONCE EVERY 24 HOURS FOR 28 DAYS. Transdermal; Duration: 28 Days Active Social History Tobacco Use: Social History Observation Description Date Details (start date - stop date) Former Smoker NA - NA Tobacco Use/Smoking Question Answer Notes Patient is a former smoker Problems Problem Type SNOMED Code ICD Code Onset Dates Problem Status W/U Status Risk Notes Problem Degeneration of lumbar intervertebral disc (04085610) Other intervertebral disc degeneration, lumbar region (M51.36) Active confirmed Plan Of Treatment No Information Insurance Providers Payer Name Payer Address Payer Phone Subscriber Number Group Number Insured Name Patient Relationship to Insured Coverage Start Date Coverage End Date [employer] [place] [address] [place], [place] [id number] [phone] [id number] Tang Livingston Self - patient is the insured Medical (General) History Medical History History ICD Code Heart disease I51.9 Hypertension I10 High cholesterol E78.00 Arthritis M19.90 Right foot pain M79.671 Surgical History Surgery Date(Month/Year) Open heart surgery - [facility] 05/08/2023 left shoulder 10/31/2022 right shoulder
--- OUTSIDE RECORDS SUMMARY | 2025-04-30 14:45 | XMS_ITS | Encounter Summary ---
Author Organization [facility] Address [address] [place] [address] Care Team Providers Care Motor Vehicle Field Representative Name Role Phone Juve Green MD Primary Care Provider [phone] Encounter Details Date Type Department Care Team (Late st Contact Info) Description 07/09/2024 Orders Only [facility] [address] [place] [address] Fritz Escalera MD [address] [place] [address] Social History Tobacco Use Types Packs/Day Years [...] often do you attend chur ch or evangelical services? Patient declined 04/23/2024 Do you belong to any clubs o r organizations such as scientology groups, unions, fraternal or athletic groups, or [...] medical care, and heating? Very hard 04/23/2024 [facility] of Occupat ional [facility] - Occupational Stress Questionnaire Answer Date Recorded [...] Procedure Name Priority Date/Time Associated Diagnosis Comments SCANNED LABS Routine 07/09/2024 11:12 AM EST SCANNED LABS Routine 07/09/2024 10:55 AM EST documented in this encounter Results * SCANNED LABS (07/09/2024 11:12 AM EST) Fritz Escalera MD LAB CHG PERFORMABLES Final Resul t * SCANNED LABS (07/09/2024 10:55 AM EST) Fritz Escalera MD LAB CHG PERFORMABLES Final Resul t documented in this encounter Visit Diagnoses Not on filedocumented in this encounter Care Teams Motor Vehicle Field Representative Relationship Specialty Start Date End Date Juve Green MD PCP - General Family Medicine 12/04/23 documented as of this encounter
--- OUTSIDE RECORDS SUMMARY | 2025-04-30 14:45 | XMS_ITS | Encounter Summary ---
Author Organization [facility] Address [address] [place] [address] Care Team Providers Care Tower Watchman Name Role Phone Juve Green MD Primary Care Provider [phone] Reason for Visit * Reason Comments Med Refill Encounter Details Date Type Department Care Team (Late st Contact Info) Description 11/03/2024 Refill [facility] [address] [facility] [address] [place] [address] Luzmaria Gong MD [address] [facility] [address] [place] [address] Chronic pansinusitis Social History Tobacco Use Types [...] often do you attend chur ch or catholic services? Patient declined 04/23/2024 Do you belong to any clubs o r organizations such as buddhism groups, unions, fraternal or athletic groups, or [...] medical care, and heating? Very hard 04/23/2024 [facility] - Occupational Stress Questionnaire Answer Date [...] sinusitis documented in this encounter Care Teams Tower Watchman Relationship Specialty Start Date End Date Juve Green MD PCP - General Family Medicine 12/04/23 documented as of this encounter
--- OUTSIDE RECORDS SUMMARY | 2025-04-30 14:45 | XMS_ITS | Encounter Summary ---
Author Organization [facility] Address [address] [place] [address] Phone Care Team Providers Care Braille And Talking Books Clerk Name Role Phone Generic Provider, No Assigned Pcp Primary Car e Provider Unavailable Juve Green MD Primary Care Provider + Juve Green MD Primary Care Provider + Encounter Details Date Type Department Care Team (Late st Contact Info) Description 06/07/2023 Scanned Document [facility] [address] [place] [id number] Scanning, Generic Provider Social History Tobacco Use Types Packs/Day Years Used Date Smoking Tobacco: Every Day Cigarettes Smokeless Tobacco: Never [facility] Utilities Answer Date Recorded In the past [address] [facility] [employer], gas, oil, or water [employer] threatened to shut off services in your [...] relatives? Three times a week 05/12/2023 Attends Temple Services Not on file 05/12 Active Member [...] Recorded Patient Health Questionnaire-2 Score 0 05/05/2023 [facility] of Occupat ional Health [...] suspected to have Coronavirus/COVID-19? No / Unsure 05/24/2023 10:56 AM EDT documented as of this encounter Plan of Treatment Upcoming Encounters Date Type Department Care Team (Late st Contact Info) Description 08/24/2025 2:00 PM EST Office Visit [facility] [address] [facility] [address] [place] [address] Lexus Ernandez, ELECTRICAL TECHNICIAN-DROP TESTER [address] [facility] [address] [place] [address] documented as of this encounter Visit Diagnoses Not on filedocumented in this encounter Additional Health Concerns Assessment Noted Time A fall risk assessment has been complete d for the patient 05/24/2023 11:10 AM EDT documented as of this encounter Care Teams Braille And Talking Books Clerk Relationship Specialty Start Date End Date Generic Provider, No Assigned PcpMD PCP - General Family Medicine 05/23/23 10/22/23 Juve Green MD [address] [place] [address] PCP - General Family Medicine 10/23/23 04/20/25 Juve Green MD [address] [place] [address] PCP - General Family Medicine 04/21/25 documented as of this encounter
--- OUTSIDE RECORDS SUMMARY | 2025-04-30 14:45 | XMS_ITS | Encounter Summary ---
Author Organization [facility] Address [address] [place] [address] Care Team Providers Care Hand Chain Maker Name Role Phone Juve Green MD Primary Care Provider [phone] Encounter Details Date Type Department Care Team (Late st Contact Info) Description 12/22/2024 Orders Only [facility] [address] [place] [address] Juve Green MD [address] [place] [address] Social History Tobacco Use Types Packs/Day Years [...] often do you attend chur ch or mormon services? Patient declined 04/23/2024 Do you belong to any clubs o r organizations such as temple groups, unions, fraternal or athletic groups, or [...] medical care, and heating? Very hard 04/23/2024 [facility] - Occupational Stress Questionnaire Answer Date Recorded [...] on filedocumented in this encounter Care Teams Hand Chain Maker Relationship Specialty Start Date End Date Juve Green MD PCP - General Family Medicine 12/04/23 documented as of this encounter
--- OUTSIDE RECORDS SUMMARY | 2025-04-30 14:45 | XMS_ITS | Encounter Summary ---
Author Organization [facility] Address [address] [place] [address] Phone Care Team Providers Care Script Developer Name Role Phone Juve Green MD Primary Care Provider + Juve Green MD Primary Care Provider + Encounter Details Date Type Department Care Team (Late st Contact Info) Description 11/18/2024 Scanned Document [facility] [address] [place] [phone] Scanning, Generic Provider Social History Tobacco Use Types Packs/Day Years Used Date Smoking Tobacco: Every Day Cigarettes 0.3 4 Started: 2020 Passive Smoke Exposure: Never Smokeless Tobacco: Never Alcohol Use Standard Drinks/Week Comments Not Currently 0 (1 standard drink = 0.6 oz pur e alcohol) very rare [facility] Utilities Answer Date Recorded In the past 12 months has [employer], gas, oil, or water [employer] threatened to shut off services in your [...] Recorded Patient Health Questionnaire-2 Score 0 05/27/2024 [facility] - Occupational Stress Questionnaire [...] place to sleep or slept in a detention (including now)? No 05/12/2023 Sex and Gender Information Value Date Recorded Sex Assigned at Not on file Legal Sex Male 5:42 PM EST Gender Identity Not on file Sexual Orientation Not on file documented as of this encounter Plan of Treatment Upcoming Encounters Date Type Department Care Team (Late st Contact Info) Description 08/24/2025 2:00 PM EST Office Visit [facility] [address] [address] Lexus Ernandez, JACK MACHINE OPERATOR-RAILWAY SIGNALLING ENGINEER 703 [facility] [address] [place] [address] documented as of this encounter Procedures Procedure Name Priority Date/Time Associated Diagnosis Comments OUTSIDE IMAGING SCAN 11/18/2024 ECHOCARDIOGRAM 11/18/2024 documented in this encounter Results * Echocardiogram (11/18/2024) Narrative 11/18/2024 Ordered by an unspecified provider. us Generic Provider Scanning CV ECHO PROCEDURES Fin al Result * OUTSIDE IMAGING SCAN (11/18/2024) Anatomical Region Laterality Modality Other Narrative 11/18/2024 Ordered by an unspecified provider. us Generic Provider Scanning OUTSIDE SCAN Final Result documented in this encounter Visit Diagnoses Not on filedocumented in this encounter Additional Health Concerns Assessment Noted Time A fall risk assessment has been complete d for the patient 05/27/2024 2:50 PM EDT documented as of this encounter Care Teams Script Developer Relationship Specialty Start Date End Date Juve Green MD [address] [place] [address] PCP - General Family Medicine 10/23/23 04/20/25 Juve Green MD [address] [place] [address] PCP - General Family Medicine 04/21/25 documented as of this encounter
--- OUTSIDE RECORDS SUMMARY | 2025-04-30 14:45 | XMS_ITS | Encounter Summary ---
Author Organization [facility] Address [address] [place] [address] Phone Care Team Providers Care Senior Scheduler Name Role Phone Juve Green MD Primary Care Provider + Juve Green MD Primary Care Provider + Encounter Details Date Type Department Care Team (Late st Contact Info) Description 11/19/2024 Scanned Document [facility] [address] [place] [phone] Scanning, Generic Provider Social History Tobacco Use Types Packs/Day Years Used Date Smoking Tobacco: Every Day Cigarettes 0.3 4 Started: 2020 Passive Smoke Exposure: Never Smokeless Tobacco: Never Alcohol Use Standard Drinks/Week Comments Not Currently 0 (1 standard drink = 0.6 oz pur e alcohol) very rare [facility] Utilities Answer Date Recorded In the past 12 months has [employer], gas, oil, or water [employer] threatened to shut off services in your [...] relatives? Three times a week 05/12/2023 Attends Jainism Services Not on file 05/12 Active Member [...] Recorded Patient Health Questionnaire-2 Score 0 05/27/2024 [facility] - Occupational Stress Questionnaire Answer [...] Description 08/24/2025 2:00 PM EST Office Visit [facility] [address] [facility] [address] [place] [address] Lexus Ernandez, FACULTY ADMINISTRATOR-[facility] 703 [facility] [address] [place] [address] documented as of this encounter Visit Diagnoses Not on filedocumented in this encounter Additional Health Concerns Assessment Noted Time A fall risk assessment has been complete d for the patient 05/27/2024 2:50 PM EDT documented as of this encounter Care Teams Senior Scheduler Relationship Specialty Start Date End Date Juve Green MD [address] [place] [address] PCP - General Family Medicine 10/23/23 04/20/25 Juve Green MD [address] [place] [address] PCP - General Family Medicine 04/21/25 documented as of this encounter
--- OUTSIDE RECORDS SUMMARY | 2025-04-30 14:45 | XMS_ITS | Encounter Summary ---
Author Organization [facility] Address [address] [address] Phone Care Team Providers Care Switchboard Troubleshooter Name Role Phone Juve Green MD Primary Care Provider + Juve Green MD Primary Care Provider + Encounter Details Date Type Department Care Team (Late st Contact Info) Description 11/20/2024 Scanned Document [facility] [address] [place] [phone] Scanning, Generic Provider Social History Tobacco Use Types Packs/Day Years Used Date Smoking Tobacco: Every Day Cigarettes 0.3 4 Started: 2020 Passive Smoke Exposure: Never Smokeless Tobacco: Never Alcohol Use Standard Drinks/Week Comments Not Currently 0 (1 standard drink = 0.6 oz pur e alcohol) very rare [facility] Utilities Answer Date Recorded In the past 12 months has [employer], gas, oil, or water [employer] threatened to shut off services in your [...] relatives? Three times a week 05/12/2023 Attends Synagogue Services Not on file 05/12 Active Member [...] Recorded Patient Health Questionnaire-2 Score 0 05/27/2024 [facility] - Occupational Stress Questionnaire Answer [...] to sleep or slept in a senior care (including now)? No 05/12/2023 Sex and Gender Information Value Date Recorded Sex Assigned at Not on file Legal Sex Male 5:42 PM EST Gender Identity Not on file Sexual Orientation Not on file documented as of this encounter Plan of Treatment Upcoming Encounters Date Type Department Care Team (Late st Contact Info) Description 08/24/2025 2:00 PM EST Office Visit [facility] 703 [facility] [address] [place] [address] Lexus Ernandez, PULLER MACHINE-[facility] 703 [facility] [address] [place] [address] documented as of this encounter Visit Diagnoses Not on filedocumented in this encounter Additional Health Concerns Assessment Noted Time A fall risk assessment has been complete d for the patient 05/27/2024 2:50 PM EDT documented as of this encounter Care Teams Switchboard Troubleshooter Relationship Specialty Start Date End Date Juve Green MD [address] [place] [address] PCP - General Family Medicine 10/23/23 04/20/25 Juve Green MD [address] [place] [address] PCP - General Family Medicine 04/21/25 documented as of this encounter
--- OUTSIDE RECORDS SUMMARY | 2025-04-30 15:00 | XMS_ITS | CCD ---
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 Guevara Coello Attending Unavai lable UNKNOWN, Dr. PCP Primary Care Unavailable MD Juve Mcpherson Primary Care Provider MD Elsie Escalera Attending Provider [phone] JUVE MCPHERSON Primary Care Unavailable RISHABH .RAMAN Admitting Unavailable RISHABH .RAMAN Attending Unavailable RISHABH .RAMAN Consulting Unavailable NORMA, DR JUVE Todd Admitting Unavailable NADEREXu, DR JUVE Todd Attending Unavailable NORMA, DR JUVE Todd Primary Care Unavailable MISC, DR GOLDBERG Admitting Unavailable MISC, DR GOLDBERG Attending Unavailable NORMA, DR JUVE Todd Primary Care Unavailable MISC, DR GOLDBERG Consulting Unavailable NORMA, DR JUVE Todd Admitting Unavailable NADEREXu, DR JUVE Todd Attending Unavailable NORMA, DR JUVE Todd Primary Care Unavailable NORMA, DR JUVE Todd Consulting Unavailable NORMA, DR JUVE Todd Admitting Unavailable NORMA, DR JUVE Todd Attending Unavailable NORMA, DR JUVE Todd Primary Care Unavailable OLEELSIE BENAVIDEZ Admitting Unavailable MEREDITH, ELSIE Attending Unavailable NORMA, DR JUVE Todd Primary Care Unavailable TimjairosLuzmaria H Primary Care Physician KimsLuzmaria H Referring Unavailable EsperanzamisLuzmaria H Attending Unavailable Timmis, Luzmaria H Admitting Unavailable Unavailable Primary Care Provider Unavailabl e Generic Provider , No Assigned Pcp Primary Car e Provider Unavailable MD Juve Mcpherson Primary Care Provider DO Hetal Quick Admit Provider DO Hetal Quick Attending Provider PRANAV Larson Other Provider MD Cj Hathaway Other Provider MD Tani Jimenez Other Provider [phone] MD Tiara Olivarez Other Provider [phone] DO Jhon Garcia Other Provider MD Cassie Lott Other Provider MD Rene Balderas Other Provider MD Efren Rosales Other Provider DO Manpreet Lane Other Provider PRANAV Vaughn Attending Provider Generic Provider , No Assigned Pcp Primary Car e Provider Juve Mcpherson MD Primary Care Provider MD Juve Mcpherson Primary Care Provider PRANAV Ernandez Attending Provider MD Elsie Escalera Attending Provider SUSAN BRAUN Attending Unavailable SUSAN BRAUN Admitting Unavailable Patient, Unavailable Referring Unavailable UNKNOWN, PCP Primary Care Unavailable UNKNOWN, PCP Primary Care Unavailable Dr. Alyssa Quick Attending Unava ilable UNKNOWN, PCP Primary Care Unavailable Dr. Luzmaria Gong Jr Referring U navailable SAUL GONZALES Attending Unavailable UNKNOWN, PCP Primary Care Unavailable Elsie Escalera MD Unavailable [phone] Elsie Escalera MD Primary Care Provider Juve Mcpherson MD Primary Care Provider Juve Mcpherson MD Primary Care Provider [phone] Elsie Escalera MD Attending Provider Norma PINEDA, Juve Primary Care Provider Awais PINEDA, Rene Todd Emergency Provider [phone] Sabi Choudhury MD Admit Provider Sherine Michaels RN Other Provider Unavailable Hetal Quick DO Other Provider Kylie PINEDA, Ashutosh Other Provider Holger PINEDA, Alyssa Allison Other Provider Manisha PINEDA, Earnest Other Provider [phone] Alexa PINEDA, Joe Other Provider Odilia Ernandez APRN Other Provider Yessica Rondon MD Other Provider Tre PINEDA, Toni Bustos Other Provider Susan Braun MD Other Provider Aggie [facility], Tammy Santiago Other Provider Kermit Iraheta MD Attending Provider Ayesha Hunter DO Emergency Provider Sabi Choudhury MD Attending Provider Jud Hutchison MD Attending Provider PROVIDER, UNKNOWN Attending Unavailable PROVIDER, UNKNOWN Admitting Unavailable PROVIDER, UNKNOWN Attending Unavailable PROVIDER, UNKNOWN Admitting Unavailable Hetal Quick DO Attending Provider ODILIA ERNANDEZ Referring Unavailable JUVE MCPHERSON Primary Care UnavailSAUL Bright Admitting Unavailable SAUL GONZALES Attending Unavailable JUVE MCPHERSON Primary Care UnavailSAUL Bright Referring Unavailable JUVE MCPHERSON Primary Care UnavailCELY Rosales Referring Unavailable JUVE MCPHERSON Primary Care Unavailjb Mcpherson MD, Juve Primary Care Provider Sabi Choudhury MD Admit Provider Odilia Ernandez APRN Other Provider Tani Jimenez MD Attending Provider Odilia Ernandez APRN Attending Provider [phone] NORMA, JUVE Attending Unavailable NADERER, JUVE Attending Unavailable NADERER, JUVE Attending Unavailable NADERER, JUVE Attending Unavailable NADERER, UJVE Attending Unavailable NADERER, JUVE Attending Unavailable Naderer Juve PINEDA Primary Care Provider Yvette Larson APRN Attending Provider Naderer, Juve Primary Care Unavailable Kermit Iraheta Attending Unavailable Jolantaer, Sherine Consulting Unavailable Kei Mohguera Admitting Unavailable Hetal Quick Consulting Unavailable Kylie, Boykin Consulting Unavailable Alyssa Wren Consulting Unavail able Earnest Dyer Consulting Unavailable Joe Liu Consulting Unavailab Odilia Santos Consulting Unavailable Yessica Rondon Consulting Unavailable Toni Toledo Consulting Unavailab Susan Lopez Consulting Unavailable Tammy Marcial Consulting Unavailable Olexa, Elsie Admitting Unavailable Olexa, Elsie Attending Unavailable Naderer, Juve Primary Care Unavailable Olexa, Elsie Admitting Unavailable Olexa, Elsie Attending Unavailable Naderer, Juve Primary Care Unavailable Olexa, Elsie Admitting Unavailable Olexa, Elsie Attending Unavailable Naderer, Juve Primary Care Unavailable Olexa, Elsie Attending Unavailable Olexa, Elsie Admitting Unavailable Naderer, Juve Primary Care Unavailable Naderer, Juve Primary Care Unavailable Hetal Quick Attending Unavailable Hetal Quick Admitting Unavailable Olexa, Elsie Admitting Unavailable Olexa, Elsie Attending Unavailable Naderer, Juve Primary Care Unavailable Eben Ernandezna K Attending Unavailable Awais, Odilia K Admitting Unavailable Naderer, Juve Primary Care Unavailable Odilia Ernandez K Attending Unavailable Naderer, Juve Primary Care Unavailable Awais, Odilia K Admitting Unavailable Naderer, Juve Primary Care Unavailable Jud Hutchison Attending Unavailable Kei, Mohamad Admitting Unavailable Mischler, Sherine Consulting Unavailable Xenia, Sherine Consulting Unavailable Hetal Quick Consulting Unavailable Kylie, Boykin Consulting Unavailable Alyssa Wren Consulting Unavail able Earnest Dyer Consulting Unavailable Joe Liu Consulting UnavailOdilia Eddy Consulting Unavailable Yessica Rondon Consulting Unavailable Toni [place] Consulting Unavailab Susan Lopez Consulting Unavailable Tammy Marcial Consulting Unavailable Norma PINEDA, [facility] ODILIA ERNANDEZ Attending Unavailable ALYSSA QUICK Referring Unavailable JUVE MCPHERSON [facility] UnavailODILIA Tejada Attending Unavailable ODILIA ERNANDEZ Referring [facility]av[facility] Bright Attending Unavailable NORMA [facility] UnavailSAUL Bright Attending Unavailable JUVE MCPHERSON [facility] UnavailALYSSA Waggoner Attending Unavailable ALYSSA QUICK Referring Unavailable NORMA, [facility] UnavailODILIA Tejada Attending Unavailable ODILIA ERNANDEZ Referring [facility]available [facility] Attending Unavailable NORMA [facility] UnavailODILIA Tejada Attending Unavailable NORMA [facility] Unavailabl e Medications Current Medications Medication Drug Class(es) Dates Sig (Normalized) Sig (Original) acetaminophen 325 mg oral tablet (20 sources) Start: 05-15-2023 End: 08-26-2024 take 2 tablets by mouth every four hours for pain acetaminophen (Tylenol) 325 mg tablet Indications: Post-op pain Take 2 tablets (650 mg) by mouth every 4 hours if needed for mild pain (1 - 3) or moderate pain (4 - 6). 05/15/2023 08/26/2024 Discontinued (Therapy completed) Start: 05-07-2023 Start: 05-04-2023 End: 05-07-2023 take 975 mg by mouth every eight hours 975 mg, oral, Every 8 hours, First dose on 05/04/23 at 0500 If ordered PRN for pain, nurse is permitted to administer this medication for higher pain scores based on patient preference? Yes acetaminophen 325 mg / oxyCODONE hydrochloride 10 mg oral tablet (20 sources) Opioid Agonist Start: 01-06-2025 End: 04-12-2025 Oxycodone-Acetaminophen 10-3 25 mg tablet Active 1 TAB PO .Q4 as needed for pain (scale score 7-10) 180 30 April 12, 2025 Complies with drug therapy Start: 07-14-2024 End: 11-18-2024 take 1 tablet by mouth every four to six hours as needed for pain Oxycodone-Acetaminophen (Percocet) 5-325 mg tablet Discontinued 1 TAB PO EVERY 4-6 HOURS as needed for pain 20 5 July 14, 2024 November 18, 2024 6:20pm Dispense quantity of twenty tablets Z96.612 Start: 10-01-2022 take 1 tablet by faby th every four hours as needed for pain Percocet 5-325 MG 1 tablet as needed for pain Orally up to every 4 hrs for 5 days ESME: [id number] Sep, Active Start: 09-20-2022 End: 04-15-2025 take 1 tablet by mouth every four hours as needed for pain Oxycodone-Acetaminophen 10-325 mg tablet Discontinued 1 TAB PO Every 4 hours as needed for Pain September 20, 2022 1:00am November 20, 2024 12:15pm Start: 08-01-2022 End: 05-03-2023 Oxycodone-Acetaminophen 10-3 25 mg tablet Discontinued TAB May 03, 2023 12:00am May 03, 2023 2:53pm Start: 08-01-2022 take 1 tablet by faby th four times daily as needed oxyCODONE-acetaminophen (PERCOCET 10) 10-325 mg tablet TAKE 1 TABLET BY MOUTH 4 TIMES A DAY NEEDED 08/01/2022 Active oxyCODONE-Acetam inophen 5-325 MG Oral Tablet Quantity: 0 Refills: 0 Ordered: 16-Dec-2020 DO Active take 1 tablet by faby th every six hours oxyCODONE-Acetaminophen 5-325 MG 1 table t as needed Orally every 6 hrs Active Comment on above: TAKE 1 TABLET BY FABY TH 4 TIMES A DAY NEEDED [id number] actuat albuterol 0.09 mg/actuat metered dose inhaler (6 sources) beta2-Adrenergic Agonist Start: 03-26-2025 take 2 puff(s) by inhalation every four hours for wheezing albuterol HFA 90 mcg/act inhaler Indications: Chronic obstructive pulmonary disease, unspecified COPD type (HCC) Inhale 2 puffs every 4 (four) hours if needed for shortness of breath or wheezing 18 g 2 03/26/2025 Active Start: 01-08-2025 Albuterol Sulf ate 90 mcg/actuation HFA aerosol inhaler Active 2 INH INHALATION EVERY 4-6 HOURS as needed for shortness of breath or wheezing 8.5 January 08, 2025 12:00am Complies with drug therapy albuterol 0.833 mg/ml / ipratropium bromide 0.167 mg/ml inhalation solution (2 sources) Anticholinergic, beta2-Adrenergic Agonist Start: 05-12-2023 3 mL, nebulizat ion, Every 6 hours RT, First dose on 05/12/23 at 2100 Start: 05-12-2023 End: 05-12-2023 Starting on 05/12/23 at 1 638, For 1 dose Created by cabinet override aspirin 81 mg delayed release oral tablet (20 sources) Platelet Aggregation Inhibitor, Nonsteroidal Anti-inflammatory Drug Start: 05-15-2023 End: 08-11-2025 take 1 tablet by mouth once daily aspirin 81 mg EC tablet Indications: ST elevation myocardial infarction (STEMI), unspecified artery (Multi) , 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, unspecified whether [place] tribe or transplanted heart , Coronary arteriography abnormal TAKE 1 TABLET (81 MG) BY MOUTH ONCE DAILY. 90 tablet 3 08/11/2024 08/11/2025 Active Start: 05-08-2023 take 81 mg by mouth once daily 81 mg, oral, Daily, First dose on Sat05/08/23 at 0900 HOLD for platelets LESS than 50,000. Start: 05-04-2023 End: 05-07-2023 take 81 mg by mouth once daily 81 mg, oral, Daily, First dose on 05/04/23 at 1145 Do not crush, chew, or split. atorvastatin 80 mg oral tablet (20 sources) HMG-CoA Reductase Inhibitor Start: 11-12-2023 take 1 tablet by mouth once daily atorvastatin (Lipitor) 80 mg tablet Indications: History of PTCA , Hyperlipidemia, unspecified hyperlipidemia type TAKE ONE TABLET BY MOUTH DAILY 90 tablet 3 11/11/2024 Active Start: 05-08-2023 End: 10-15-2023 take 1 tablet by mouth once daily atorvastatin (Lipitor) 80 mg tablet Indications: Coronary arteriography abnormal Take 1 tablet (80 mg) by mouth once daily. 30 tablet 0 10/15/2023 Active Start: 05-04-2023 End: 05-07-2023 take 40 mg by mouth once daily 40 mg, oral, Nightly, F irst dose on 05/04/23 at 2100 Start: 07-25-2022 End: 03-26-2025 take 1 tablet by mouth once daily at bedtime Atorvastatin 20 mg tablet Discontinued 20 MG PO Daily at bedtime September 20, 2022 1:00am July 09, 2024 9:07am Lipitor TABS Gerardo ntity: 0 Refills: 0 Ordered: 16-Dec-2020 DO Active Comment on above: TAKE 1 TABLET BY FABY TH EVERYDAY AT BEDTIME bisacodyl 10 mg rectal suppository (1 source) Stimulant Laxative Start: 05-13-2023 take 10 mg rectal route once daily 10 mg, rectal, Daily, First dose on 05/13/23 at 1630 120 actuat budesonide 0.08 mg/actuat / formoterol fumarate 0.0045 mg/actuat metered dose inhaler (5 sources) Corticosteroid, beta2-Adrenergic Agonist Start: 04-13-2025 Budesonide-Formoter ol (Symbicort) 80-4.5 mcg/actuation HFA aerosol inhaler Active 2 INH INHALATION Every 12 hours 10.2 30 April 13, 2025 12:00am Complies with drug therapy Start: 04-13-2025 End: 04-13-2025 Budesonide-Formoterol (Symbi jason) 160-4.5 mcg/actuation HFA aerosol inhaler Discontinued INHALATION April 13, 2025 12:00am April 13, 2025 11:10am Start: 03-10-2025 End: 03-10-2026 take 2 puff(s) by inhalation in the morning budesonide-formoterol (Symbicort) 160-4.5 MCG/ACT inhaler Indications: Chronic obstructive pulmonary disease, unspecified COPD type (HCC) Inhale 2 puffs in the morning and 2 puffs in the evening. 03/10/2025 03/10/2026 Active Start: 03-10-2025 End: 03-10-2026 take 2 puff(s) by mouth twice daily budesonide-formoterol (Symbicort) 160-4.5 mcg/actuation inhaler Indications: Shortness of breath , Current smoker Inhale 2 puffs 2 times a day. Rinse mouth with water after use to reduce aftertaste and incidence of candidiasis. Do not swallow. 10.2 g 11 03/10/2025 03/10/2026 Active clopidogrel 75 mg oral tablet (20 sources) [id number] Platelet Inhibitor Start: 08-14-2023 End: 03-10-2025 take 1 tablet by mouth once daily in the morning Clopidogrel 75 mg tablet Active 75 MG PO Every morning January 14, 2024 12:00am Complies with drug therapy Start: 05-09-2023 End: 06-18-2023 take 1 tablet by mouth once daily clopidogrel (Plavix) 75 mg tablet Indications: Coronary arteriography abnormal Take 1 tablet (75 mg) by mouth once daily. 30 tablet 0 06/18/2023 Active DULoxetine 60 mg delayed release oral capsule (20 sources) Serotonin and Norepinephrine Reuptake Inhibitor Start: 06-08-2024 take 1 capsule by mouth once daily DULoxetine (Cymbalta) [address] capsule Take 1 capsule (60 mg) by mouth once daily. 06/08/2024 Active Start: 08-06-2023 End: 05-11-2024 take 1 capsule by mouth once daily DULoxetine (Cymbalta) [address] capsule Indications: MDD (major depressive disorder), recurrent episode, moderate (CMS/HCC) Take 1 capsule (60 mg) by mouth Daily Do not crush or chew. 30 capsule 5 05/11/2024 Active Start: 05-04-2023 End: 05-07-2023 take 20 mg by mouth twice daily 20 mg, oral, 2 times d aily, First dose on 05/04/23 at 0900 Do not crush or chew. Start: 09-20-2022 End: 08-26-2024 take 1 capsule by mouth once daily in the morning Duloxetine 30 mg capsule,delayed release(DR/EC) Discontinued 30 MG PO Every morning September 20, 2022 1:00am July 09, 2024 9:11am DULoxetine (CYMB MILTON) 30 mg capsule Take by mouth q 24 HR. Active Comment on above: Take by mouth q 24 H R. empagliflozin 10 mg oral tablet (20 sources) Sodium-Glucose Cotransporter 2 Inhibitor Start: 12-12-19 End: 12-12-19 take 1 tablet by mouth once daily empagliflozin (Jardiance) 10 mg tablet Indications: Cardiomyopathy, ischemic Take 1 tablet (10 mg) by mouth once daily. 12/11/2024 12/11/2025 Active Start: 08-14-2023 End: 10-14-2024 Empagliflozin (Jardiance) 10 mg tablet Discontinued 10 MG PO January 14, 2024 12:00am July 09, 2024 9:08am Start: 05-13-2023 End: 06-18-2023 take 1 tablet by mouth once daily empagliflozin (Jardiance) 10 mg Indications: Acute systolic heart failure (CMS/HCC) Take 1 tablet (10 mg) by mouth once daily. 30 tablet 0 06/18/2023 Active famotidine 40 mg oral tablet (1 source) Histamine-2 Receptor Antagonist Start: 04-13-2025 take 1 tablet by mouth once daily at bedtime Famotidine 40 mg tablet Active 40 MG PO Daily at bedtime April 13, 2025 12:00am Complies with drug therapy fluticasone propionate 0.05 mg/actuat metered dose nasal spray (20 sources) Corticosteroid Start: 02-08-2023 take 2 spray(s) nasal route once daily in the morning fluticasone (Flonase) 50 MCG/ACT nasal spray Indications: Chronic pansinusitis 2 SPRAYS IN EACH NOSTRIL EVERY MORNING *SHAKE GENTLY BEFORE FIRST USE/PRIME/CLEAN TIP AFTER USE* 16 mL 11 02/08/2023 Active End: 06-18-2023 fluticasone (Flonase) 50 mcg /actuation nasal spray USE 2 SPRAYS IN EACH NOSTRIL EACH MORNING *SHAKE GENTLY BEFORE USE/PRIME/CLEAN TIP AFTER USE 0 06/18/2023 Discontinued (Therapy completed) furosemide 40 mg oral tablet (20 sources) Loop Diuretic Start: 01-29-2025 Furosemide (La six) 40 mg tablet Active 20 MG PO Daily January 29, 2025 12:00am Complies with drug therapy Start: 10-15-2023 End: 10-14-2024 Furosemide Active 20 MG PO J [facility] 2023 12:00am Start: 2023 End: 01-29-2025 Furosemide (Lasix) 40 mg tab let Discontinued 40 MG PO As Directed January 08, 2025 12:04pm January 29, 2025 12:12pm Start: 05-15-2023 End: 03-17-2025 take 1 tablet by mouth once daily furosemide (Lasix) 20 mg tablet Indications: Shortness of breath Take 1 tablet (20 mg) by mouth once daily. 30 tablet 11 03/17/2024 Active Start: 05-11-2023 20 mg, intrave nous, Once, On 05/13/23 at 0815, For 1 dose Start: 05-10-2023 60 mg, intrave nous, Once, On Sat05/10/23 at 0845, For 1 dose Start: 05-08-2023 40 mg, intrave nous, Once, On Yvrose 05/09/23 at 0900, For 1 dose 12 hr guaiFENesin 600 mg extended release oral tablet (8 sources) Start: 11-20-2024 take 1 tablet by mouth twice daily as needed for congestion Guaifenesin 600 mg Tablet Extended Release 12hr Active 600 MG PO Twice daily as needed for Congestion 28 November 20, 2024 12:00am Complies with drug therapy Start: 05-06-2023 End: 05-07-2023 take 600 mg by mouth twice daily as needed for cough 600 mg, oral, 2 times daily PRN, cough, Starting on Sat05/06/23 at 1228 Administer with plenty of fluids to ensure proper action. Do not crush, chew, or split. 1 ml heparin sodium, porcine 5000 unt/ml injection (3 sources) Unfractionated Heparin, Anti-coagulant Start: 05-08-2023 inject 5000 [IU] by subcutaneous injection every eight hours 5,000 Units, subcutaneous, Every 8 hours, First dose on Sat05/08/23 at 1600 Start: 05-04-2023 End: 05-07-2023 0-4,000 Units/hr (0-40 mL/hr ), intravenous, Continuous, Starting on Sat05/05/23 at 1545, Until Sat05/07/23 at 1623 Low Intensity Heparin Protocol (70-124kg) Ini tial Dose: 12 units/kg/hr = 1,400 Units/hr Maximum Initial Dose: 1000 units/hr Recheck Heparin Assay, UFH level 4 hours after any rate change, or per protocol. Titration Table: Heparin Assay, UFH < 0.1: Bolus 4,000 units, INCREASE rate by 300 units/hr. Heparin Assay, UFH 0.1 to 0.2: Bolus 2,000 units. INCREASE rate by 200 units/hr. Heparin Assay, UFH 0.3 to 0.6: (THERAPEUTIC) DO NOT CHANGE Infusion Rate. No Bolus. Heparin Assay, UFH 0.7 to 1: No Bolus. DECREASE rate by 200 unit/hour. Heparin Assay, UFH 1.1 to 1.2: No Bolus. HOLD heparin infusion for 1 hour, then DECREASE rate by 200 units/hour. Heparin Assay, UFH > 1.2: No Bolus. HOLD heparin infusion for 1 hour, then recheck heparin assay. If repeat is > 0.6, continue to HOLD INFUSION. Confirm last draw was performed correctly (pump was paused for a minimum of 2 minutes, sample NOT drawn off line/lumen where medication was infusing) and contact provider for further orders. If repeat is <= 0.6, REDUCE previous infusion rate by 300 units/hour and restart infusion. Recheck Heparin Assay, UFH in 4 hours after dose reduction, resume nomogram. 24 hr isosorbide mononitrate 30 mg extended release oral tablet (9 sources) Nitrate Vasodilator Start: 04-13-2025 take 1 tablet by mouth every twenty-four hours Isosorbide Mononitrate 30 mg tablet extended release 24 hr Active MG PO April 13, 2025 12:00am Complies with drug therapy Start: 02-23-2025 End: 02-23-2026 take 1 tablet by mouth once daily isosorbide mononitrate ER (Imdur) 30 mg 24 hr tablet Indications: 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 Take 1 tablet (30 mg) by mouth once daily. Do not crush or chew. 30 tablet 11 02/23/2025 02/23/2026 Active lamoTRIgine 100 mg oral tablet (20 sources) Mood Stabilizer, Anti-epileptic Agent Start: 03-26-2025 take 1 tablet by mouth at bedtime lamoTRIgine (LaMICtal) 100 MG tablet Indications: Major depressive disorder, recurrent episode, moderate (HCC) Take 1 tablet (100 mg) by mouth at bedtime 90 tablet 3 03/26/2025 Active Start: 01-14-2024 End: 03-26-2025 take 2 tablets by mouth once daily at bedtime lamoTRIgine (LaMICtal) 25 mg tablet Take 2 tablets (50 mg) by mouth once daily at bedtime. 06/08/2024 Active Start: 01-14-2024 Lamotrigine Ac tive 25 MG PO January 14, 2024 12:00am levoFLOXacin 750 mg oral tablet (1 source) Quinolone Antimicrobial Start: 08-10-2024 End: 08-17-2024 take 1 tablet by mouth once daily levoFLOXacin (Levaquin) 750 MG tablet Indications: Upper respiratory tract infection, unspecified type Take 1 tablet (750 mg) by mouth Daily for 7 days 7 tablet 08/10/2024 08/17/2024 Active lidocaine 0.04 mg/mg medicated patch (1 source) Antiarrhythmic, Amide Local Anesthetic Start: 05-08-2023 apply 1 dose transdermal route once daily 1 patch, transdermal, Administer over 12 Hours, Daily, First dose on Sat05/08/23 at 1045 Apply to chest. Patch will remain on for 12 hours, then removed for [address] patch directly over any surgical incisions or wounds. melatonin 5 mg oral tablet (2 sources) Start: 05-09-2023 End: 05-10-2023 take 5 mg by mouth once daily 5 mg, oral, Nightly, First dose on 10/6/23 at 2100 methocarbamol 500 mg oral tablet (2 sources) Muscle Relaxant Start: 05-10-2023 take 500 mg by mouth every six hours 500 mg, oral, Every 6 hours scheduled, First dose on Sat05/10/23 at 0830 Start: 05-08-2023 End: 05-10-2023 take 1000 mg intravenously every eight hours 1,000 mg, intravenous, Administer over 5 Minutes, Every 8 hours, First dose on Sat05/08/23 at 1045 24 hr metoprolol succinate 100 mg extended release oral tablet (20 sources) beta-Adrenergic Osiris Start: 08-20-2024 take 1 tablet by mouth once daily metoprolol succinate XL (Toprol-XL) 100 mg 24 hr tablet Indications: S/P CABG x 2 , Hypertension, unspecified type TAKE ONE TABLET BY MOUTH ONCE DAILY -DO NOT CRUSH OR CHEW 90 tablet 3 08/20/2024 Active Start: 08-14-2023 End: 08-13-2024 take 1 tablet by mouth once daily in the morning Metoprolol Succinate 100 mg tablet extended release 24 hr Active 100 MG PO Every morning January 14, 2024 12:00am Complies with drug therapy Start: 05-14-2023 End: 06-18-2023 take 1 tablet by mouth once daily metoprolol succinate XL (Toprol-XL) 100 mg 24 hr tablet Indications: S/P CABG x 2 Take 1 tablet (100 mg) by mouth once daily. Do not crush or chew. 30 tablet 0 06/18/2023 Active Start: 05-11-2023 End: 05-13-2023 take 50 mg by mouth twice daily 50 mg, oral, 2 times d aily, First dose (after last modification) on 05/11/23 at 2100, For 5 doses Start: 05-10-2023 End: 05-11-2023 take 25 mg by mouth twice daily 25 mg, oral, 2 times d aily, First dose (after last modification) on Sat05/10/23 at 2100 Start: 05-09-2023 End: 05-10-2023 take 12.5 mg by mouth twice daily 12.5 mg, oral, 2 times daily, First dose on Yvrose 05/09/23 at 2100 Multivitamin tablet (9 sources) Start: 07-09-2024 take 1 tablet by faby th once daily in the morning Start: 07-09-2024 take 1 tablet by faby th once daily in the morning Multivitamin tablet Active 1 TAB PO Every morning July 09, 2024 1:00am Complies with drug therapy Start: 07-09-2024 take 1 tablet by faby th once daily in the morning Multivitamin tablet Active 1 TAB PO Every morning July 09, 2024 1:00am Start: 07-09-2024 take 1 tablet by faby th once daily in the morning Multivitamin tablet Active 1 TAB PO Every morning July 09, 2024 12:00am multivitamin with minerals tablet (20 sources) Start: 05-16-2023 take 1 tablet by mouth once daily multivitamin with minerals tablet Indications: S/P CABG x 2 Take 1 tablet by mouth once daily. Do not start before May 16, 2023. 05/16/2023 Active Start: 05-16-2023 take 1 tablet by faby th once daily multivitamin with minerals tablet Indications: S/P CABG x 2 Take 1 tablet by mouth once daily. Do not start before May 16, 2023. 0 05/16/2023 Active Naloxone (1 source) Opioid Antagonist Start: 05-07-2023 0.2 mg, intr avenous, Every 5 min PRN, respiratory depression, Starting on Sat05/07/23 at 2208 If respiratory rate is less than 8 breaths/minute or patient is difficult to arouse stop any narcotics and contact physician. Administer slow IV push. Repeat as ordered until patient's respiratory rate is greater than 12 breaths/minute. nitroglycerin 0.4 mg sublingual tablet (10 sources) Nitrate Vasodilator Start: 02-23-2025 End: 03-25-2025 Nitroglycerin 0.4 mg tablet, sublingual Active 0.4 MG SUBLINGUAL every 5 to 15 minutes as needed April 13, 2025 12:00am Complies with drug therapy Start: 05-04-2023 End: 05-07-2023 take 1.5-60 mL intravenously every hour 5-200 mcg/min (1.5-60 mL/hr), intravenous, Continuous, Starting on 05/04/23 at 0300 5 mcg/min = 1.5mL/hr Titration Goal: Use Adult Parameters Target Parameter: MAP 60 to 70 Initial dose: 5 mcg/min Bidirectional Titration Dose: 5 mcg/min Titration Frequency: Every 3 minutes omeprazole 40 mg delayed release oral capsule (20 sources) Proton Pump Inhibitor Start: 07-06-2022 take 1 capsule by mouth twice daily omeprazole (PriLOSEC) [address] capsule Take 1 capsule (40 mg) by mouth twice a day. 09/20/2022 Active Start: 07-06-2022 End: 05-15-2023 take 1 capsule by mouth once daily in the morning Omeprazole 40 mg capsule,delayed release(DR/EC) Active 40 MG PO Every morning September 20, 2022 1:00am Comment on above: Take 40 mg by mouth twice daily. oxyCODONE hydrochloride 5 mg oral tablet (20 sources) Opioid Agonist Start: 02-28-2024 take 1 tablet by mouth every four hours for pain oxyCODONE (Roxicodone) 5 mg immediate release tablet Indications: Post-operative pain Take 1 tablet (5 mg) by mouth every 4 hours if needed for severe pain (7 - 10). 25 tablet 02/28/2024 Active Start: 05-13-2023 End: 05-13-2023 take 20 mg by mouth once for pain 20 mg, oral, Once, On Sat05/13/23 at 2230, For 1 dose If ordered PRN for pain, nurse is permitted to administer this medication for higher pain scores based on patient preference? Yes Start: 05-10-2023 take 20 mg by mouth every four hours as needed 20 mg, oral, Every 4 hours PRN, pain severe (7-10), first line, Starting on Sat05/10/23 at 0839 If ordered PRN for pain, nurse is permitted to administer this medication for higher pain scores based on patient preference? Yes Start: 05-09-2023 End: 05-10-2023 take 15 mg by mouth every four hours as needed 15 mg, oral, Every 4 hours PRN, pain moderate (4-6), first line, Starting on Sat05/10/23 at 0838 If ordered PRN for pain, nurse is permitted to administer this medication for higher pain scores based on patient preference? Yes Start: 05-08-2023 End: 05-10-2023 take 10 mg by mouth every four hours as needed 10 mg, oral, Every 4 hours PRN, pain moderate (4-6), first line, Starting on Sat05/08/23 at 1042, Recovery & On Unit If ordered PRN for pain, nurse is permitted to administer this medication for higher pain scores based on patient preference? Yes Start: 05-04-2023 End: 05-07-2023 take 5 mg by mouth every six hours as needed 5 mg, oral, Every 6 hours PRN, pain severe (7-10), first line, Starting on Sat05/04/23 at 0257 If ordered PRN for pain, nurse is permitted to administer this medication for higher pain scores based on patient preference? Yes pantoprazole 40 mg delayed release oral tablet (15 sources) Proton Pump Inhibitor Start: 05-16-2023 End: 04-23-2024 take 1 tablet by mouth before mealtime pantoprazole (ProtoNix) 40 MG EC tablet Take 40 mg by mouth in the morning. Take before meals. 05/16/2023 04/23/2024 Discontinued Start: 05-04-2023 End: 05-07-2023 take 40 mg by mouth once daily before breakfast 40 mg, oral, Daily before breakfast, First dose on Sat05/08/23 at 0700 Do not crush, chew, or split. sacubitril 49 mg / valsartan 51 mg oral tablet (20 sources) Angiotensin 2 Receptor Osiris Start: 01-08-2025 take 1 tablet by mouth in the morning Entresto 97-103 MG tablet Take 1 tablet by mouth in the morning and 1 tablet before bedtime. 01/08/2025 Active Start: 01-08-2025 End: 04-13-2025 take 1 tablet by mouth twice daily Sacubitril-Valsartan (Entresto) 97-103 mg tablet Discontinued 1 TAB PO Twice daily 60 January 08, 2025 12:00am April 13, 2025 10:14am Start: 01-14-2024 Sacubitril-Deirdre sartan (Entresto) 49-51 mg tablet Active 1 TAB PO January 14, 2024 12:00am Start: 09-03-2023 End: 06-09-2025 take 1 tablet by mouth twice daily sacubitriL-valsartan (Entresto) 49-51 mg tablet Indications: Cardiomyopathy, ischemic Take 1 tablet by mouth 2 times a day. 180 tablet 3 06/09/2024 06/09/2025 Active Start: 05-14-2023 End: 01-21-2025 Start: 05-14-2023 End: 07-08-2024 take 1 tablet by mouth twice daily sacubitriL-valsartan (Entresto) 24-26 mg tablet Indications: Cardiomyopathy, ischemic , Congestive heart failure, NYHA class 2 and ACC/AHA stage C (CMS/HCC) Take 1 tablet by mouth 2 times a day. 180 tablet 3 07/09/2023 07/08/2024 Active Sertraline (3 sources) Serotonin Reuptake Inhibitor take 10 mg by mouth once daily sertraline HCl (ZOLOFT ORAL) Take 10 mg by mouth once daily. 0 Active spironolactone 50 mg oral tablet (20 sources) Aldosterone Antagonist Start: 04-08-20 take 1 tablet by mouth once daily Spironolactone (Aldactone) 50 mg tablet Active 50 MG PO Daily April 08, 2025 12:00am Complies with drug therapy Start: 02-25-2025 take 1 tablet by faby th once daily spironolactone (Aldactone) 50 MG tablet Indications: Chronic HFrEF (heart failure with reduced ejection fraction) (FORMERLY [facility] [place]) Take 1 tablet (50 mg) by mouth Daily 30 tablet 5 02/25/2025 Active Start: 10-15-2023 End: 02-25-2025 take 1 tablet by mouth once daily in the morning Spironolactone 25 mg tablet Discontinued 25 MG PO Every morning January 14, 2024 12:00am January 29, 2025 12:08pm Start: 08-14-2023 End: 10-15-2023 take 0.5 tablet by mouth once daily spironolactone (Aldactone) 25 mg tablet Indications: HFrEF (heart failure with reduced ejection fraction) (CMS/HCC) Take 0.5 tablets (12.5 mg) by mouth once daily. 45 tablet 3 08/14/2023 10/15/2023 Discontinued (Dose adjustment) Start: 05-16-2023 End: 06-18-2023 take 0.5 tablet by mouth once daily spironolactone (Aldactone) 25 mg tablet Indications: HFrEF (heart failure with reduced ejection fraction) (CMS/HCC) Take 0.5 tablets (12.5 mg) by mouth once daily. 15 tablet 0 06/18/2023 Active Start: 05-14-2023 take 12.5 mg by mout h once daily 12.5 mg, oral, Daily, First dose on Sat05/14/23 at 1130 Start: 05-06-2023 End: 05-07-2023 take 12.5 mg by mouth once daily 12.5 mg, oral, Daily, First dose on Sat05/06/23 at 0930 triamcinolone acetonide 5 mg/ml topical cream (20 sources) Corticosteroid Start: 11-24-2024 triamcinolone (Kenalog) 0.5 % cream Indications: Dyshidrotic eczema APPLY TO AFFECTED AREA 3 TIMES A DAY 60 g 2 11/24/2024 Active Start: 07-09-2024 Triamcinolone Acetonide 0.5 % cream Active 1 APPLIC TOPICAL Daily as needed for rash July 09, 2024 1:00am Complies with drug therapy Start: 07-07-2024 triamcinolone (Kenalog) 0.5 % cream Indications: Dyshidrotic eczema Apply topically 3 (three) times a day 60 g 2 07/07/2024 Active Start: 12-04-2021 Kenalog-40 Jan, 40 mg Start: 07-11-2021 Kenalog -40 mg Jul, 40 mg Start: 03-13-2021 Kenalog -40 mg Mar, 40 mg End: 03-10-2025 triamcinolone (Kenalog) 0.5 % cream Apply topically 3 times a day. 03/10/2025 Discontinued (Discontinued by another clinician) vitamin b12 0.5 mg oral tablet (20 sources) Vitamin B12 Start: 09-20-2022 take 1 tablet by mouth once daily in the morning Cyanocobalamin (Vitamin B-12) (Vitamin B-12) 500 mcg Tablet Active 500 MCG PO Every morning September 20, 2022 1:00am Complies with drug therapy Start: 09-20-2022 take 1 tablet by faby th once daily in the morning Cyanocobalamin (Vitamin B-12) (Vitamin B-12) 500 mcg Tablet Active 500 MCG PO Every morning September 20, 2022 1:00am Start: 09-20-2022 take 1 tablet by faby th once daily in the morning Cyanocobalamin (Vitamin B-12) (Vitamin B-12) 500 mcg Tablet Active 500 MCG PO Every morning September 20, 2022 12:00am (2 sources) Start: 05-16-2023 Start: 05-10-2023 take 1 tablet by mouth once da edin 1 tablet, oral, Daily, First dose on Sat05/10/23 at 1815 Completed/Discontinued Medications Medication Drug Class(es) Dates Sig (Normalized) Sig (Original) 20 ml albumin human, residential 250 mg/ml injection (1 source) Human Serum Albumin Start: 05-08-2023 End: 05-08-2023 25 g, intravenous, at 100 mL/hr, Administer over 60 Minutes, Once, On Sat05/08/23 at 1430, For 1 dose amoxicillin 875 mg / clavulanate 125 mg oral tablet (6 sources) Penicillin-class Antibacterial Start: 12-09-2024 End: 12-11-2024 take 1 tablet by mouth twice daily amoxicillin-clavul anate (Augmentin) 875-125 mg tablet Indications: Chronic maxillary sinusitis Take 1 tablet by mouth 2 times a day for 14 days. 28 tablet 12/09/2024 12/11/2024 Discontinued (Therapy completed) Start: 08-12-2024 End: 08-26-2024 take 1 tablet by mouth twice daily amoxicillin-pot clavulanate (Augmentin) 875-125 mg tablet Indications: Chronic maxillary sinusitis Take 1 tablet (875 mg) by mouth 2 times a day for 14 days. 28 tablet 08/12/2024 08/26/2024 Discontinued (Therapy completed) Start: 05-27-2024 End: 06-06-2024 take 1 tablet by mouth twice daily amoxicillin-pot clavulanate (Augmentin) 875-125 mg tablet Indications: Chronic maxillary sinusitis Take 1 tablet (875 mg) by mouth 2 times a day for 10 days. 20 tablet 05/27/2024 06/06/2024 Start: 01-15-2024 End: 01-25-2024 take 1 tablet by mouth twice daily amoxicillin-pot clavulanate (Augmentin) 875-125 mg tablet Indications: Chronic maxillary sinusitis Take 1 tablet (875 mg) by mouth 2 times a day for 10 days. 20 tablet 01/15/2024 01/25/2024 Active atenolol 50 mg oral tablet (20 sources) beta-Adrenergic Osiris Start: 07-30-2022 End: 11-26-2024 take 1 tablet by mouth once daily in the morning Atenolol 50 mg tablet Discontinued 50 MG PO Every morning September 20, 2022 1:00am November 20, 2024 12:15pm Atenolol TABS Qu antity: 0 Refills: 0 Ordered: 16-Dec-2020 DO Active Comment on above: Take 50 mg by mouth once daily. calcium chloride 0.0014 meq/ml / potassium chloride 0.004 meq/ml / sodium chloride 0.103 meq/ml / sodium lactate 0.028 meq/ml injectable solution (3 sources) Start: 05-07-2023 End: 05-08-2023 250 mL, intravenous, at 125 mL/hr, Administer over 2 Hours, Once, On Sat05/08/23 at 0130, For 1 dose Start: 05-07-2023 End: 05-10-2023 take 5 mL intravenously every hour 5 mL/hr, intravenou s, Continuous, Starting on Sat05/07/23 at 2230, Recovery & On Unit 100 ml calcium gluconate 20 mg/ml injection (1 source) Start: 05-08-2023 End: 05-10-2023 take 2 g intravenously every six hours as needed 2 g, intravenous, at 100 mL/hr, Administer over 1 Hours, Every 6 hours PRN, ionized calcium level 0.7 - 0.8 mmol/L, Starting on Sat05/08/23 at 1850 carvedilol 3.125 mg oral tablet (2 sources) alpha-Adrenerg ic Osiris, beta-Adrenergi c Osiris Start: 05-05-2023 End: 05-05-2023 Starting on Sat05/05/23 at 2237, For 1 dose Mckenzie Reyes: cabinet override Start: 05-05-2023 End: 05-07-2023 take 6.25 mg by mouth twice daily 6.25 mg, oral, 2 esperanza es daily, First dose on Sat05/05/23 at 0800 ceFAZolin 2000 mg injection (1 source) Cephalosporin Antibacterial Start: 05-08-2023 End: 05-09-2023 take 2 g intravenously every eight hours 2 g, intravenous, Administer over 30 Minutes, Every 8 hours, First dose on 05/08/23 at 0445, For 5 doses, Recovery & On Unit premix bag Dosing of this medication varies based on severity of illness. Does this patient have sepsis or concern for sepsis (probable or documented infection plus systemic manifestations of infection)? No Suspected Indication (Select all that apply): Surgical Prophylaxis celecoxib 200 mg oral capsule (20 sources) Nonsteroidal Anti-inflammatory Drug Start: 08-17-2022 End: 03-30-2024 take 1 capsule by mouth twice daily Celecoxib 200 mg capsule Discontinued 200 MG PO Twice daily September 20, 2022 1:00am January 14, 2024 11:25am Comment on above: Take 1 capsule by [facility] twice daily. cephalexin 500 mg oral capsule (9 sources) Cephalosporin Antibacterial Start: 07-14-2024 End: 11-18-2024 take 1 capsule by mouth every eight hours Cephalexin 500 mg capsule Discontinued 500 MG PO Every 8 hours July 14, 2024 1:00am November 18, 2024 6:20pm cetirizine hydrochloride 10 mg oral tablet (20 sources) Histamine-1 Receptor Antagonist Start: 02-06-2023 End: 01-21-2025 Cetirizine 10 mg tablet Discontinued 10 MG PO January 14, 2024 12:00am July 09, 2024 9:08am chlorhexidine gluconate 1.2 mg/ml mouthwash (1 source) Start: 05-05-2023 End: 05-07-2023 take 1 dose by mouth twice daily 15 mL, Mouth/Throat, 2 times daily, First dose on 05/05/23 at 2100, For 4 doses, Preprocedure Swish and spit One dose evening prior to surgery and one dose morning of surgery. 50 ml clevidipine 0.5 mg/ml injection (2 sources) Dihydropyridine Calcium Channel Osiris Start: 05-09-2023 End: 05-09-2023 1-16 mg/hr (2-32 mL/hr), intravenous, Continuous, Starting on Yvrose 05/09/23 at 1015 Titration Goal: Use Adult Parameters Target Parameter: MAP 60 to 80 Initial dose: 1 mg/hr Bidirectional Titration Dose: 50 % or less of hourly dose Titration Frequency: 90 seconds Start: 05-07-2023 End: 05-07-2023 intravenous, Continuous PRN, Starting on Sat05/07/23 at 1711, Anesthesia Intraprocedure Cymbalta CPEP (4 sources) Cymbalta CPEP Quantity: 0 Refills: 0 Ordered: 16-Dec-2020 DO Active 100 ml dexmedetomidine 0.004 mg/ml injection (2 sources) Central alpha-2 Adrenergic Agonist Start: 2022 End: 2022 take 4.9-36.71 mL intravenously every hour 0.2-1.5 mcg/kg/hr 97.9 kg (4.895-36.7125 mL/hr, rounded to 4.9-36.71 mL/hr), intravenous, Continuous, Starting on Sat05/08/23 at 0500 Use along with analgesia regimen Titration Goal: Use Adult Parameters Target Parameter: RASS 0 to -2 Initial dose: 0.2 mcg/kg/hr Bidirectional Titration Dose: 25 % Titration Frequency: Every 30 minutes diclofenac sodium 75 mg delayed release oral tablet (10 sources) Nonsteroidal Anti-inflammatory Drug Start: 2022 End: 2022 diclofenac (Voltaren) 75 mg EC tablet Take by mouth. 0 02/25/2023 07/02/2023 Discontinued (Discontinued by another clinician) take 1 tablet by faby th twice daily as needed Voltaren 75 MG 1 tablet as needed Orally Twice a day for 30 days Active Comment on above: TAKE 1 TABLET BY FABY TH TWICE A DAY NEEDED FOR 30 DAYS docusate sodium 100 mg oral capsule (8 sources) Start: End: take 1 capsule by mouth twice daily as needed for constipation docusate sodium (Colace) 100 mg capsule Indications: S/P CABG x 2 Take 1 capsule (100 mg) by mouth 2 times a day as needed for constipation. 0 05/15/2023 07/02/2023 Discontinued (Med List Cleanup) Drug or medicament (substance) (1 source) Start: End: inhalation, Continuous PRN - O2/gases, other, Starting on Sat05/08/23 at 1414 Device: Ventilator FIO2: 40 ergocalciferol 1.25 mg oral capsule (20 sources) Provitamin D2 Compound Start: 023 End: take 1 capsule by mouth two times weekly Ergocalciferol (Vitamin D2) 1,250 mcg (50,000 unit) capsule Discontinued 1250 MCG PO Twice a Week September 20, 2022 1:00am July 09, 2024 9:09am take 1 capsule by mouth every we ek ergocalciferol (Vitamin D2) 1.25 MG (50577 UT) capsule Take 50,000 Units by mouth 1 (one) time per week. Active Comment on above: (take by mouth with food twice a week, ONE CAPSULE ON SATURDAY AND ONE ON SATURDAY) FOR A TOTAL OF 8 WEEKS. gabapentin 300 mg oral capsule (20 sources) Anti-epileptic Agent Start: 01-14-2024 End: 07-09-2024 Gabapentin 300 mg capsule Discontinued 300 MG PO January 14, 2024 12:00am July 09, 2024 9:09am Start: 05-09-2023 take 300 mg by mouth every eight hours 300 mg, oral, Every 8 hours, First dose on Sat05/09/23 at 1045 Capsules may be opened and sprinkled on food (eg, applesauce, orange juice, pudding Start: 01-16-2023 gabapentin (NE URONTIN) 300 mg capsule TAKE 1 CAP BY MOUTH AT BEDTIME DAY 1,THEN 1 CAP TWICE DAILY DAY 2,THEN 1 CAP 3 TIMES DAILY 01/16/2023 Active Start: 01-16-2023 End: 06-18-2023 take 1 capsule by mouth three times daily gabapentin (Neurontin) 300 mg capsule Take 1 capsule (300 mg) by mouth 3 times a day. 0 01/16/2023 06/18/2023 Discontinued (Therapy completed) take 2 capsules by m outh every eight hours Gabapentin 300 MG 2 capsules Orally tid for 30 days Active Gabapentin TABS Quantity: 0 Refills: 0 Ordered: 16-Dec-2020 DO Active Comment on above: TAKE 1 CAP BY MOUTH AT BEDTIME DAY 1,THEN 1 CAP TWICE DAILY DAY 2,THEN 1 CAP 3 TIMES DAILY 2 ml glycopyrrolate 0.2 mg/ml injection (1 source) Start: 05-08-2023 End: 05-08-2023 0.4 mg, intravenous, Once, On Sat05/08/23 at 0145, For 1 dose hydrALAZINE hydrochloride 25 mg oral tablet (8 sources) Arteriolar Vasodilator Start: 05-09-2023 End: 05-11-2023 take 25 mg by mouth every eight hours 25 mg, oral, Every 8 hours, First dose (after last modification) on Sat05/09/23 at 1830 Start: 05-09-2023 End: 05-09-2023 10 mg, intravenous, Once, On Sat05/09/23 at 1730, For 1 dose Start: 05-09-2023 End: 05-09-2023 take 10 mg by mouth every eight hours 10 mg, oral, Every 8 hours, First dose (after last modification) on Sat05/09/23 at 1030 Start: 05-09-2023 End: 05-10-2023 take 10 mg intravenously every four hours as needed 10 mg, intravenous, Every 4 hours PRN, MAP > 80, Starting on Sat05/09/23 at 1340 Start: 05-08-2023 End: 05-08-2023 Starting on Sat05/08/23 at 1 240, For 1 dose Elma Chung: cabinet override Start: 05-08-2023 End: 05-09-2023 take 10 mg intravenously every six hours as needed 10 mg, intravenous, Every 6 hours PRN, MAP > 90mmHg, Starting on Sat05/08/23 at 1239 Start: 05-05-2023 End: 05-07-2023 take 10 mg by mouth three times daily 10 mg, oral, 3 times daily, First dose on Sat05/05/23 at 1500 1 ml HYDROmorphone hydrochloride 1 mg/ml cartridge (3 sources) Opioid Agonist Start: 05-09-2023 End: 05-10-2023 0.4 mg, intravenous, Every 2 hour PRN, pain breakthrough, pain severe (7-10), second line, Starting on Sat05/09/23 at 1029 Start: 05-08-2023 End: 05-09-2023 0.4 mg, intravenous, Every 1 5 min PRN, pain severe (7-10), first line, Starting on Sat05/08/23 at 1042, Recovery & On Unit Start: 05-07-2023 End: 05-08-2023 0.2 mg, intravenous, Every 1 5 min PRN, pain severe (7-10), first line, Starting on Sat05/07/23 at 2208, Recovery & On Unit hydrOXYzine hydrochloride 25 mg oral tablet (1 source) Antihistamine Start: 05-05-2023 End: 05-05-2023 take 25 mg by mouth once 25 mg, oral, Once, On 05/05/23 at 2130, For 1 dose ibuprofen 800 mg oral tablet (2 sources) Nonsteroidal Anti-inflammatory Drug Start: 08-31-2020 End: 06-18-2023 ibuprofen 800 mg tablet 1 tablet with food or milk as needed 0 08/31/2020 06/18/2023 Discontinued (Therapy completed) insulin lispro 100 unt/ml injectable solution (2 sources) Insulin Analog Start: 05-07-2023 End: 05-10-2023 0-15 Units, subcutaneous, Every 4 hours, First dose on Sat05/07/23 at 2230, Recovery & On Unit For BG = 0- 70: Notify provider AND initiate hypoglycemia management interventions For BG = 71-140: zero units (at goal) For BG = 141-180: 5 units For BG = 181-220: 10 units For BG = 221-260: 15 units For BG GREATER 260: Notify provider Notify provider IF: TWO CONSECUTIVE draws are GREATER than 200 Start: 05-04-2023 End: 05-07-2023 0-10 Units, subcutaneous, 3 times daily before meals, First dose on Sat05/04/23 at 0700 Insulin Lispro Mild Corrective Scale Hypoglycemia protocol Call LIP unit(s) if Blood Glucose is between 0 - 70 mg/dL 0 unit(s) if Blood Glucose is between 71 - 150 &nbsp ;2 unit(s) if Blood Glucose is between 151 - 200 & nbs p;4 unit(s) if Blood Glucose is between 201 - 250 &nbsp ;6 unit(s) if Blood Glucose is between 251 - 300 &nbsp ;8 unit(s) if Blood Glucose is between 301 - 350 10 unit(s) if Blood Glucose is between 351 - 400 Notify provider unit(s) if Blood Glucose is greater than 400 mg/dL isosorbide dinitrate 20 mg oral tablet (1 source) Nitrate Vasodilator Start: 05-05-2023 End: 05-06-2023 take 20 mg by mouth three times daily 20 mg, oral, 3 times daily (0900,1400,1900), First dose on Sat05/05/23 at 1415 losartan potassium 25 mg oral tablet (1 source) Angiotensin 2 Receptor Osiris Start: 05-12-2023 End: 05-13-2023 take 25 mg by mouth once daily 25 mg, oral, Daily, First dose on Sat05/12/23 at 0900 50 ml magnesium sulfate 40 mg/ml injection (1 source) Start: 05-08-2023 End: 05-10-2023 take 2 g intravenously every six hours as needed 2 g, intravenous, at 25 mL/hr, Administer over 2 Hours, Every 6 hours PRN, magnesium level 1.7-1.9 mg/dL, Starting on Sat05/08/23 at 1850 metOLazone 5 mg oral tablet (1 source) Thiazide-like Diuretic Start: 05-10-2023 End: 05-10-2023 take 5 mg by mouth once daily 5 mg, oral, Daily, First dose on Sat05/10/23 at 0900, For 1 dose mupirocin 0.02 mg/mg topical ointment (14 sources) RNA Synthetase Inhibitor Antibacterial Start: 01-14-2024 End: 07-09-2024 Mupirocin 2 % ointment Discontinued APPLIC TOPICAL January 14, 2024 12:00am July 09, 2024 9:13am Start: 01-14-2024 Mupirocin Acti ve APPLIC TOPICAL January 14, 2024 12:00am Start: 05-05-2023 End: 05-07-2023 0.5 Application, Topical, 2 times daily, First dose on 05/05/23 at 2100, For 10 doses, Preprocedure Do not initiate until staph screening obtained first. Start: 04-09-2023 End: 06-18-2023 mupirocin (Bactroban) 2 % oi ntment naproxen sodium 550 mg oral tablet (1 source) Nonsteroidal Anti-inflammatory Drug Start: 05-16-2004 End: 08-17-2022 ANAPROX DS 550MG TABLET Take one(1) tablet two(2) times daily. 60 0 05/16/2004 08/17/2022 Discontinued Comment on above: Take one(1) tablet t wo(2) times daily. neostigmine methylsulfate 1 mg/ml injectable solution (1 source) Start: 05-08-2023 End: 05-08-2023 Starting on Sat05/08/23 at 0225, For 1 dose Martha Calderon: gaget override Nicotine (20 sources) Cholinergic Nicotinic Agonist Start: 08-26-2024 End: 02-23-2025 apply 1 dose transdermal route once daily nicotine 21-14-7 mg/24 hr patch, TD daily, sequential Indications: 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 , History of PTCA , ST elevation myocardial infarction (STEMI), unspecified artery (Multi) , Current smoker 1 each see administration instructions. Please provide to titration dose package. 21mg 6 weeks, 14mg 6 weeks and 7mg 6 weeks 1 kit 08/26/2024 02/23/2025 Discontinued (Therapy completed) Start: 08-26-2024 End: 08-26-2025 apply 1 dose transdermal route once daily nicotine 21-14-7 mg/24 hr patch, TD daily, sequential Indications: 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 , History of PTCA , ST elevation myocardial infarction (STEMI), unspecified artery (Multi) , Current smoker 1 each see administration instructions. Please provide to titration dose package. 21mg 6 weeks, 14mg 6 weeks and 7mg 6 weeks 1 kit 08/26/2024 08/26/2025 Active Start: 08-14-2023 End: 08-26-2024 apply 1 dose transdermal route every twenty-four hours nicotine (Nicoderm CQ) 14 mg/24 hr patch Indications: Currently attempting to quit smoking Place 1 patch over 24 hours on the skin once every 24 hours. 30 patch 10/15/2023 08/26/2024 Discontinued (Therapy completed) Start: 06-18-2023 End: 07-02-2023 apply 1 dose transdermal route every twenty-four hours nicotine (Nicoderm CQ) 21 mg/24 hr patch Indications: ST elevation myocardial infarction (STEMI), unspecified artery (CMS/HCC) , 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, unspecified whether [place] or transplanted heart (CMS/HCC) , Coronary arteriography abnormal Place 1 patch over 24 hours on the skin once every 24 hours for 14 days. 14 patch 0 06/18/2023 Active Start: 06-18-2023 End: 07-16-2023 apply 1 dose transdermal route every twenty-four hours nicotine (Nicoderm CQ) 14 mg/24 hr patch Indications: ST elevation myocardial infarction (STEMI), unspecified artery (CMS/HCC) , 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, unspecified whether [place] or transplanted heart (CMS/HCC) , Coronary arteriography abnormal Place 1 patch over 24 hours on the skin once every 24 hours for 28 days. 14 patch 1 06/18/2023 07/02/2023 Discontinued (Discontinued by another clinician) perflutren protein A microsphere (Optison) injection 0.5 mL (2 sources) Start: 07-16-2023 End: 07-16-2023 perflutren protein A microsphere (Optison) injection 0.5 mL polyethylene glycol [id number] mg powder for oral solution (5 sources) Osmotic Laxative Start: 05-15-2023 End: 06-18-2023 polyethylene glycol (Glycolax, Miralax) 17 gram packet Indications: S/P CABG x 2 Take 17 g by mouth once daily as needed (constipation). 0 05/15/2023 06/18/2023 Discontinued (Therapy completed) Start: 05-08-2023 17 g, oral, 2 times daily, First dose (after last modification) on Sat05/08/23 at 2100 Bowel Regimen - for prevention of constipation. Start: 05-05-2023 End: 05-07-2023 17 g, oral, Daily, First dos e on Sat05/05/23 at 0900 polysaccharide iron complex 150 mg oral capsule (3 sources) Start: 05-10-2023 End: 06-15-2023 take 1 capsule by mouth once daily iron polysaccharides (Nu-Iron,Niferex) 150 mg iron capsule Indications: S/P CABG x 2 Take 1 capsule (150 mg) by mouth once daily. Do not start before May 16, 2023. 30 capsule 0 05/16/2023 06/15/2023 100 ml potassium chloride 0.2 meq/ml injection (3 sources) Start: 05-09-2023 End: 05-09-2023 20 mEq, intravenous, at 50 mL/hr, Administer over 2 Hours, Once, On Yvrose 05/09/23 at 1800, For 1 dose Via peripheral line Start: 05-08-2023 End: 05-10-2023 take 40 mEq intravenously every six hours as needed 40 mEq, intravenous, at 25 mL/hr, Administer over 4 Hours, Every 6 hours PRN, Potassium level 3.6 - 3.7 mmol/L and unable to take oral medications, Starting on Sat05/08/23 at 1850 For central line administration only. Start: 05-06-2023 End: 05-07-2023 20 mEq, oral, Daily, First d ose on 05/06/23 at 0900 Best given with food and plenty of water to minimize gastric irritation. Do not crush or chew. 10 ml propofol 10 mg/ml injection (4 sources) General Anesthetic Start: 05-08-2023 End: 05-08-2023 5-50 mcg/kg/min 98 kg (2.94-29.4 mL/hr), intravenous, Continuous, Starting on Sat05/08/23 at 1245 Titration Goal: Use Adult Parameters Target Parameter: RASS 0 to -2 Initial dose: Other Other Initial Dose: 25 Bidirectional Titration Dose: 5 mcg/kg/min Titration Frequency: Every 5 minutes Start: 05-07-2023 End: 05-08-2023 0-50 mcg/kg/min 91.9 kg (0-2 7.57 mL/hr), intravenous, Continuous, Starting on Sat05/07/23 at 2230, Recovery & On Unit Titration Goal: Use Adult Parameters Target Parameter: RASS 0 to -2 Initial dose: 5 mcg/kg/min Bidirectional Titration Dose: 5 mcg/kg/min Titration Frequency: Every 5 minutes 12 hr ranolazine 500 mg extended release oral tablet (1 source) Anti-anginal Start: 05-06-2023 End: 05-07-2023 take 500 mg by mouth twice daily 500 mg, oral, 2 times daily, First dose on Sat05/06/23 at 0930 Do not crush, chew, or split. regadenoson (Lexiscan) injection 0.4 mg (1 source) Start: 01-25-2025 End: 01-25-2025 0.4 mg, intravenous, Once, On Sat01/25/25 at 1315, For 1 dose sodium chloride 0.111 meq/ml nasal spray (12 sources) Start: 02-28-2024 End: 02-23-2025 take 2 spray(s) nasal route five times daily sodium chloride (Saline Mist) 0.65 % nasal spray Indications: Chronic maxillary sinusitis Administer 2 sprays into each nostril 5 times a day. 30 mL 12 02/28/2024 02/23/2025 Discontinued (Therapy completed) Tc-99m tetrofosmin (Myoview) injection 10 millicurie (1 source) Start: 01-25-2025 End: 01-25-2025 10 millicurie, intravenous, Once in imaging, Starting on Sat01/25/25 at 1220, For 1 dose, Administer 45 to 90 minutes prior to imaging unless otherwise indicated. Tc-99m tetrofosmin (Myoview) injection 30 millicurie (1 source) Start: 01-25-2025 End: 01-25-2025 30 millicurie, intravenous, Once in imaging, Starting on Sat01/25/25 at 1333, For 1 dose, Administer 45 to 90 minutes prior to imaging unless otherwise indicated. tiZANidine 4 mg oral tablet (20 sources) Central alpha-2 Adrenergic Agonist Start: 05-16-2004 ZANAFLEX 4MG TABLET Indications: Degeneration of intervertebral disc, site unspecified Take one(1) tablet daily. 30 1 05/16/2004 Active End: 02-25-2025 tiZANidine HCl (ZANAFLEX) 4 mg capsule Take 4 mg by mouth. Active take 1 tablet by faby every eight hours tiZANidine HCl 4 MG 1 tablet as needed Orally Three times a day Active Comment on above: Take one(1) tablet d aily. Take 4 mg by mouth. (3 sources) Start: 05-13-2023 End: 05-13-2023 0.5 mL, intravenous, Once in imaging, Starting on 05/13/23 at 1100, For 1 dose, CV Medications Contrast - for use by imaging provider only. Prior to administration, Definity product must be activated. First, bring vial to room temperature. Then, shake vial for 45 seconds. Do not use if the 45 second activation cycle has not been completed. Following activation, the product will appear as a milky white suspension and may be used immediately. If not used within 5 minutes of activation, re-suspend by inverting and shaking the vial for 10 seconds. Discard unused product. Administration:&n bsp;Dilute 1.3 mL of activated DEFINITY with 8.7 mL of normal saline in a 10 mL syringe. Inject 0.5 mL of diluted DEFINITY when notified the images/film are unclear to enhance view of Left Ventricular borders. Repeat 0.5 mL of DEFINITY until clear images are obtained, not to exceed 10 mLs. Once images are obtained or limit of medication is reached, flush line with 10 mL of Normal Saline. Start: 05-04-2023 0.5 mL, intrav enous, Once in imaging, Starting on 05/04/23 at 2152, For 1 dose Start: 05-04-2023 End: 05-04-2023 0.5 mL, intravenous, Once in imaging, Starting on 05/04/23 at 0824, For 1 dose, CV Medications Contrast - for use by imaging provider only. Prior to administration, Definity product must be activated. First, bring vial to room temperature. Then, shake vial for 45 seconds. Do not use if the 45 second activation cycle has not been completed. Following activation, the product will appear as a milky white suspension and may be used immediately. If not used within 5 minutes of activation, re-suspend by inverting and shaking the vial for 10 seconds. Discard unused product. Administration: Dilute 1.3 mL of activated DEFINITY with 8.7 mL of normal saline in a 10 mL syringe. Inject 0.5 mL of diluted DEFINITY when notified the images/film are unclear to enhance view of Left Ventricular borders. Repeat 0.5 mL of DEFINITY until clear images are obtained, not to exceed 10 mLs. Once images are obtained or limit of medication is reached, flush line with 10 mL of Normal Saline. (1 source) Start: 05-10-2023 End: 05-10-2023 15 mmol, intravenous, at 62.5 mL/hr, Administer over 4 Hours, Once, On Sat05/10/23 at 0400, For 1 dose (1 source) Start: 05-08-2023 End: 05-09-2023 take 3.68-367.5 mL intravenously every hour 0.01-1 mcg/kg/min 98 kg (3.675-367.5 mL/hr, rounded to 3.68-367.5 mL/hr), intravenous, Continuous, Starting on Sat05/08/23 at 0900 premix bag Titration Goal: Use Adult Parameters Target Parameter: Other Other Titration Parameter: CI > 2.2 Initial dose: Other Other Initial Dose: 0.02 Bidirectional Titration Dose: 0.01 mcg/kg/min Titration Frequency: Every 1 minute (2 sources) Start: 05-08-2023 End: 05-09-2023 take 1.84-91.88 mL intravenously every hour 0.01-0.5 mcg/kg/min 98 kg (1.8375-91.875 mL/hr, rounded to 1.84-91.88 mL/hr), intravenous, Continuous, Starting on Sat05/08/23 at 0830 Titration Goal: Use Adult Parameters Target Parameter: MAP 65 to 75 Initial dose: 0.01 mcg/kg/min Bidirectional Titration Dose: 0.01 mcg/kg/min Titration Frequency: Every 1 minute Start: 05-07-2023 End: 05-07-2023 intravenous, Continuous PRN, Starting on Sat05/07/23 at 1953, Anesthesia Intraprocedure Problems Active Problems Problem Classification Problem Date Documented Date Episodic/Chronic Acute myocardial infarction (20 sources) Myocardial infarction; Translations: [ST elevation (STEMI) myocardial infarction of unspecified site] Onset: 05-06-2023 Resolved: 08-26-2024 05-07-2023 Chronic Anxiety disorders (20 sources) Anxiety; Translations: [Anxiety disorder, unspecified] Onset: 12-28-2022 Resolved: 08-06-2023 05-22-2023 Chronic Blindness and vision defects (20 sources) Disorder of vision; Translations: [Problems with sight] Onset: 03-06-2023 05-22-2023 Chronic Chronic obstructive pulmonary disease and bronchiectasis (16 sources) Acute exacerbation of chronic obstructive airways disease; Translations: [Chronic obstructive lung disease] Onset: 01-06-2025 01-06-2025 Chronic Congestive heart failure; nonhypertensive (20 sources) Acute systolic heart failure; Translations: [Acute systolic (congestive) heart failure] Onset: 05-06-2023 Resolved: 02-25-2025 05-12-2023 Chronic Coronary atherosclerosis and other heart disease (20 sources) Coronary atherosclerosis; Translations: [Atherosclerotic heart disease of [place] coronary artery with unspecified angina pectoris] Onset: 05-03-2023 Resolved: 07-02-2023 05-05-2023 Chronic Deficiency and other anemia (2 sources) Anemia of chronic disease; Translations: [Anemia in other chronic diseases classified elsewhere] Chronic Disorders of lipid metabolism (20 sources) Mixed hyperlipidemia; Translations: [Mixed hyperlipidemia] Onset: 07-02-2023 07-02-2023 Chronic Esophageal disorders (20 sources) Gastroesophageal reflux disease; Translations: [Gastro-esophageal reflux disease without esophagitis] Onset: 12-28-2022 05-15-2023 Chronic Essential hypertension (20 sources) Hypertensive disorder; Translations: [Essential (primary) hypertension] Onset: 12-28-2022 06-18-2023 Chronic Immunizations and screening for infectious disease (1 source) Tuberculosis screening status; Translations: [Encounter for screening for respiratory tuberculosis] Episodic Mood disorders (20 sources) Recurrent depression; Translations: [Major depressive disorder, recurrent, mild] Onset: 08-06-2023 01-09-2024 Chronic Nutritional deficiencies (6 sources) Vitamin D deficiency; Translations: [Vitamin D deficiency, unspecified] Onset: 10-05-2022 Chronic Nutritional deficiencies (7 sources) Cobalamin deficiency; Translations: [Deficiency of other specified B group vitamins] Onset: 10-01-2022 Episodic Osteoarthritis (20 sources) Arthritis of first carpometacarpal joint of left hand; Translations: [Unilateral primary osteoarthritis of first carpometacarpal joint, left hand] Onset: 07-11-2021 Resolved: 12-04-2021 Chronic Other acquired deformities (11 sources) Lumbar spondylolisthesis; Translations: [Spondylolisthesis, lumbar region] Episodic Other aftercare (1 source) Other termite control technician (current) drug therapy; Translations: [OTH JAIL CURRENT DRUG THERAPY] Onset: 11-21-2022 Episodic Other and ill-defined heart disease (17 sources) Left ventricular aneurysm; Translations: [Aneurysm of heart] 05-03-2023 Chronic Other and ill-defined heart disease (6 sources) Aneurysm of heart; Translations: [Aneurysm of heart (wall)] Onset: 11-18-2024 05-03-2023 Chronic Other circulatory disease (20 sources) Raynaud's phenomenon; Translations: [Raynaud's syndrome without gangrene] Onset: 08-17-2022 08-17-2022 Chronic Other circulatory disease (4 sources) H/O: hypertension; Translations: [Personal history of other diseases of circulatory system] Episodic Other circulatory disease (1 source) Other specified symptoms and signs involving the circulatory and respiratory systems; Translations: [Other symptoms involving cardiovascular system] 05-07-2023 Episodic Other connective tissue disease (9 sources) History of reverse prosthetic total arthroplasty of left shoulder; Translations: [Presence of left artificial shoulder joint] 07-14-2024 Chronic Other connective tissue disease (5 sources) Presence of left artificial shoulder joint; Translations: [Shoulder joint replacement] Onset: 08-27-2024 07-21-2024 Chronic Other connective tissue disease (11 sources) Unspecified rotator cuff tear or rupture of right shoulder, not specified as traumatic; Translations: [Tear of right rotator cuff, unspecified tear extent, unspecified whether traumatic] Episodic Other connective tissue disease (4 sources) H/O: arthritis; Translations: [Personal history of arthritis] Episodic Other connective tissue disease (19 sources) Supraspinatus tear; Translations: [Unspecified rotator cuff tear or rupture of left shoulder, not specified as traumatic] 01-13-2024 Episodic Other connective tissue disease (12 sources) Unspecified rotator cuff tear or rupture of left shoulder, not specified as traumatic; Translations: [Supraspinatus (muscle) (tendon) sprain] Onset: 11-23-2022 Episodic Other hematologic conditions (2 sources) ESR raised; Translations: [Elevated erythrocyte sedimentation rate] Episodic Other lower respiratory disease (20 sources) Dyspnea; Translations: [Shortness of breath] Onset: 07-02-2023 07-02-2023 Episodic Other nervous system disorders (20 sources) Bilateral carpal tunnel syndrome; Translations: [Carpal tunnel syndrome, bilateral upper limbs] Onset: 08-17-2022 08-17-2022 Chronic Other nervous system disorders (4 sources) Numbness and tingling sensation of skin; Translations: [Disturbance of skin sensation] Episodic Other non-traumatic joint disorders (9 sources) Derangement of left shoulder joint; Translations: [Other specific joint derangements of left shoulder, not elsewhere classified] Chronic Other non-traumatic joint disorders (20 sources) Rotator cuff arthropathy of left shoulder; Translations: [Other specific arthropathies, not elsewhere classified, left shoulder] Onset: 08-17-2022 08-17-2022 Chronic Other non-traumatic joint disorders (9 sources) Pain in left shoulder; Translations: [Pain in joint, shoulder region] Onset: 04-23-2022 Resolved: 04-23-2022 Episodic Other non-traumatic joint disorders (20 sources) Pain in right knee; Translations: [Pain in joint, lower leg] Onset: 08-06-2023 04-01-2023 Episodic Other nutritional; endocrine; and metabolic disorders (20 sources) Body mass index 30+ - obesity; Translations: [Body mass index (BMI) 30.0-30.9, adult] Onset: 07-02-2023 07-02-2023 Chronic Other nutritional; endocrine; and metabolic disorders (2 sources) Body mass index (BMI) 32.0-32.9, adult; Translations: [Body mass index (BMI) 32.0-32.9, adult] Onset: 04-21-2025 Chronic Other nutritional; endocrine; and metabolic disorders (2 sources) Body mass index (BMI) 33.0-33.9, adult; Translations: [Body mass index (BMI) 33.0-33.9, adult] Onset: 03-10-2025 Chronic Other nutritional; endocrine; and metabolic disorders (2 sources) Body mass index (BMI) 31.0-31.9, adult; Translations: [Body mass index (BMI) 31.0-31.9, adult] Onset: 11-13-2023 Chronic Other nutritional; endocrine; and metabolic disorders (1 source) Hyperuricemia; Translations: [Hyperuricemia without signs of inflammatory arthritis and tophaceous disease] Episodic Other skin disorders (8 sources) Actinic keratosis; Translations: [Actinic keratosis] Onset: 02-25-2025 02-25-2025 Episodic Other upper respiratory disease (1 source) Chronic rhinitis; Translations: [Chronic rhinitis] 12-20-2024 Chronic Other upper respiratory disease (6 sources) Nasal congestion; Translations: [Other disease of nasal cavity and sinuses] 01-15-2024 Episodic Other upper respiratory disease (1 source) Nasal discharge; Translations: [Other specified disorders of nose and nasal sinuses] 06-07-2024 Episodic Other upper respiratory disease (3 sources) Crusting on nose; Translations: [Other specified disorders of nose and nasal sinuses] 06-07-2024 Episodic Other upper respiratory infections (20 sources) Chronic sinusitis, unspecified; Translations: [Chronic ethmoidal sinusitis] Onset: 11-20-2022 Chronic Residual codes; unclassified (20 sources) Obstructive sleep apnea syndrome; Translations: [Obstructive sleep apnea (adult) (pediatric)] Onset: 08-06-2023 08-06-2023 Chronic Residual codes; unclassified (9 sources) Sleep apnea; Translations: [Sleep apnea, unspecified] 01-06-2025 Chronic Residual codes; unclassified (3 sources) Sleep apnea, unspecified; Translations: [Unspecified sleep apnea] Onset: 01-06-2025 5 Chronic Residual codes; unclassified (4 sources) Hypersomnia; Translations: [Hypersomnia, unspecified] Onset: 03-10-2025 03-10-2025 Chronic Residual codes; unclassified (2 sources) Hypersomnia, unspecified; Translations: [Hypersomnia, unspecified] Onset: 03-10-2025 Chronic Residual codes; unclassified (6 sources) Other specified postprocedural states; Translations: [OTH SPECIFIED POSTPROCEDURAL STATES] Onset: 11-23-2022 Episodic Residual codes; unclassified (1 source) Localized edema; Translations: [Localized edema] 05-15-2023 Episodic Residual codes; unclassified (17 sources) Tobacco user; Translations: [Tobacco use] 05-03-2023 Episodic Spondylosis; intervertebral disc disorders; other back problems (20 sources) Spondylosis without myelopathy or radiculopathy, lumbar region; Translations: [Lumbar spondylosis] Onset: 11-23-2022 07-09-2023 Chronic Substance-related disorders (20 sources) Smoker; Translations: [Nicotine dependence, unspecified, uncomplicated] Onset: 07-02-2023 08-26-2024 Chronic Unclassified (1 source) Low back pain, unspecified; Translations: [Low back pain, unspecified] Onset: 08-14-2022 Unclassified (1 source) LOW BACK PAIN, UNSPECIFIED; Translations: [LOW BACK PAIN, UNSPECIFIED] Onset: 11-23-2022 Unclassified (3 sources) CONTACT W/AND (SUSP) EXPOS COVID-19; Translations: [CONTACT W/AND (SUSP) EXPOS COVID-19] Onset: 03-23-2022 Unclassified (8 sources) Autogenerated Problem Onset: 12-24-2024 12-24-2024 Unclassified (6 sources) Previous scheduled Stress Test Unclassified (1 source) You have been scheduled for a follow up appointment for the following date and time, please call to reschedule if needed. Unclassified (3 sources) Follow-up with your Primary Care Provider, call office to reschedule if needed. 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] Onset: 12-03-2023 Resolved: 08-26-2024 05-08-2023 Chronic Coronary atherosclerosis and other heart disease (18 sources) H/O cardiac surgery; Translations: [Presence of aortocoronary bypass graft] Onset: 08-26-2024 11-19-2024 Episodic Diabetes mellitus without complication (20 sources) Prediabetes; Translations: [Prediabetes] Onset: 08-06-2023 08-06-2023 Episodic Fluid and electrolyte disorders (20 sources) Hypervolemia; Translations: [Fluid overload, unspecified] Onset: 10-15-2023 10-15-2023 Episodic Malaise and fatigue (18 sources) Fatigue; Translations: [Other fatigue] Onset: 12-03-2023 12-03-2023 Episodic Other aftercare (20 sources) Long-term current use of drug therapy; Translations: [Other group home (current) drug therapy] Onset: 01-09-2024 01-09-2024 Episodic Other aftercare (1 source) Patient encounter status; Translations: [Other group home (current) drug therapy] Onset: 01-09-2024 01-09-2024 Episodic Other connective tissue disease (1 source) Pain in left hand Onset: 07-11-2021 Resolved: 07-11-2021 Episodic Other connective tissue disease (1 source) Lateral epicondylitis, right elbow Onset: 12-04-2021 Resolved: 12-04-2021 Episodic Other connective tissue disease (16 sources) Pain of bilateral hands; Translations: [Pain in right hand] Onset: 08-17-2022 08-17-2022 Episodic Other connective tissue disease (20 sources) Disorder of rotator cuff; Translations: [Unspecified disorder of synovium and tendon, right shoulder] Onset: 12-28-2022 05-22-2023 Episodic Other connective tissue disease (20 sources) Chronic pain of right foot; Translations: [Pain in right foot] Onset: 08-06-2023 08-06-2023 Episodic Other lower respiratory disease (18 sources) Multiple nodules of lung; Translations: [Other nonspecific abnormal finding of lung field] Onset: 11-26-2024 11-26-2024 Episodic Other lower respiratory disease (2 sources) Shortness of breath; Translations: [Shortness of breath] Onset: 07-02-2023 Episodic Other nervous system disorders (20 sources) Sense of smell impaired; Translations: [Disturbances of sensation of smell and taste] Onset: 05-22-2023 05-22-2023 Episodic Other nervous system disorders (20 sources) Postoperative pain ; Translations: [Other acute postprocedural pain] Onset: 05-08-2023 05-10-2023 Episodic Other non-traumatic joint disorders (1 source) Pain in unspecified joint Onset: 12-04-2021 Resolved: 12-04-2021 Episodic Other non-traumatic joint disorders (20 sources) Hip pain; Translations: [Pain in right hip] Onset: 08-17-2022 08-17-2022 Episodic Other non-traumatic joint disorders (20 sources) Bilateral chronic pain of upper limbs; Translations: [Pain in right shoulder] Onset: 08-17-2022 08-17-2022 Episodic Other non-traumatic joint disorders (10 sources) Chronic pain of left upper limb; Translations: [Pain in left shoulder] Onset: 08-06-2023 08-06-2023 Episodic Other non-traumatic joint disorders (20 sources) Chronic pain of right upper limb; Translations: [Pain in right shoulder] Onset: 08-06-2023 08-06-2023 Episodic Other non-traumatic joint disorders (20 sources) Joint pain in left hand; Translations: [Pain in joints of left hand] Onset: 12-04-2023 12-04-2023 Episodic Other screening for suspected conditions (not mental disorders or infectious disease) (20 sources) Other specified abnormal findings of blood chemistry; Translations: [Other abnormal blood chemistry] Onset: 05-04-2023 Resolved: 07-02-2023 Episodic Other skin disorders (20 sources) Vesicular eczema; Translations: [Dyshidrosis [pompholyx]] Onset: 07-07-2024 07-07-2024 Episodic Other upper respiratory disease (2 sources) Deviated nasal septum; Translations: [Deviated nasal septum] Onset: 02-25-2024 01-15-2024 Episodic Other upper respiratory disease (1 source) Deviated nasal septum; Translations: [Deviated nasal septum] Onset: 02-25-2024 Episodic Residual codes; unclassified (15 sources) FH: Gout; Translations: [Family history of other diseases of the musculoskeletal system and connective tissue] Onset: 08-17-2022 08-17-2022 Episodic Residual codes; unclassified (15 sources) FH: Rheumatoid arthritis; Translations: [Family history of arthritis] Onset: 08-17-2022 08-17-2022 Episodic Residual codes; unclassified (6 sources) Tobacco use; Translations: [Tobacco use disorder] Onset: 11-18-2024 05-03-2023 Episodic Residual codes; unclassified (20 sources) Edema of left upper arm; Translations: [Localized edema] Onset: 10-15-2023 10-15-2023 Episodic Residual codes; unclassified (20 sources) Trying to give up smoking; Translations: [Tobacco use] Onset: 10-15-2023 Resolved: 08-26-2024 10-15-2023 Episodic Screening and history of mental health and substance abuse codes (13 sources) Ex-smoker; Translations: [Personal history of nicotine dependence] Onset: 07-02-2023 07-02-2023 Episodic Spondylosis; intervertebral disc disorders; other back problems (20 sources) Low back pain; Translations: [Lumbago] Onset: 08-17-2022 08-17-2022 Episodic Sprains and strains (1 source) Strain of other muscles, fascia and tendons at shoulder and upper arm level, left arm, initial encounter Onset: 04-23-2022 Resolved: 04-23-2022 Episodic Unclassified (1 source) CONTACT W/AND (SUSP) EXPOS COVID-19; Translations: [CONTACT W/AND (SUSP) EXPOS COVID-19] Onset: 03-21-2022 Unclassified (20 sources) Onset: 05-24-2023 Resolved: 12-11-2024 05-24-2023 Results Test Name Value Interpretation Reference Range Facility Basic Metabolic Panelon 02-03 GFR/1.73 sq M.predicted MDRD (S/P/Bld) [Vol rate/Area] 55.627 mL/min/{1.73_m2} Normal The [facility] Comment on above: Performed By: #### L YTES, CBC, LIPID, PP, BUN, CREAT #### [address] Calcium [Mass/volume] in Ser um or PlasmaOrdered By: Odilia Ernandez on 03-01-2025 Calcium [Mass/Vol] 9.6 mg/dL Normal 8.6-10.3 [facility] Comment on above: Result Comment: PERF ORMED BY: [place] [address] PATHOLOGIST MANUFACTURING PROCESS TECHNICIAN PEARL OLSON M.D. Performed By: #### L YTES, CBC, LIPID, PP, BUN, CREAT #### [facility] [address] [place] [address] Carbon dioxide, total [Moles /volume] in Serum or PlasmaOrdered By: Odilia Ernandez on 03-01-2025 CO2 [Moles/Vol] 26.4 mmol/L Normal 21.0-31.0 [facility] Comment on above: Performed By: #### L YTES, CBC, LIPID, PP, BUN, CREAT #### [facility] [address] [place] [address] [place] Chloride [Moles/volume] in S autumn or PlasmaOrdered By: Odilia Ernandez on 03-01-2025 Chloride [Moles/Vol] 106 mmol/L Normal 98-107 [facility] Comment on above: Performed By: #### L YTES, CBC, LIPID, PP, BUN, CREAT #### [facility] [address] [place] [address] [place] Creatinine [Mass/volume] in Serum or PlasmaOrdered By: Odilia Ernandez on 03-01-2025 Creatinine [Mass/Vol] 1.44 mg/dL High 0.70-1.30 [facility] Comment on above: Performed By: #### L YTES, CBC, LIPID, PP, BUN, CREAT #### [facility] [address] [place] [address] [place] Glucose [Mass/volume] in Ser um or PlasmaOrdered By: Odilia Ernandez on 03-01-2025 Glucose [Mass/Vol] 92 mg/dL Normal 70-100 [facility] Comment on above: ADA recommended refe rence rangeRandom Glucose Reference Range is dependent on time and content of last meal. Glucose of more than 200 mg/dL in a nonstressed, ambulatory subject supports the diagnosis of Diabetes Mellitus. Result Comment: [facility] Glucose Reference Range is dependent on time and content of last meal. Glucose of more than 200 mg/dL in a nonstressed, ambulatory subject supports the diagnosis of Diabetes Mellitus. ADA recommended reference range Performed By: #### L YTES, CBC, LIPID, PP, BUN, CREAT #### [facility] [address] No Panel InformationOrdered By: Odilia Ernandez on 03-01-2025 Estimated GFR (CKD-EPI) 55.627 mL/Min [facility] Creatinine Clearance (Chem N/A [facility] Potassium [Moles/volume] in Serum or PlasmaOrdered By: Odilia Ernandez on 03-01-2025 Potassium [Moles/Vol] 4.3 mmol/L Normal 3.5-5.1 [facility] Comment on above: Performed By: #### L YTES, CBC, LIPID, PP, BUN, CREAT #### [address] Serum or plasma anion gap de terminationOrdered By: Odilia Ernandez on 03-01-2025 Anion gap [Moles/Vol] 11.9 mmol/L Normal 6.0-15.0 [facility] Comment on above: Performed By: #### L YTES, CBC, LIPID, PP, BUN, CREAT #### [place] [address] [place] Sodium [Moles/volume] in Ser um or PlasmaOrdered By: Odilia Ernandez on 03-01-2025 Sodium [Moles/Vol] 140 mmol/L Normal 136-145 [facility] Comment on above: Performed By: #### L YTES, CBC, LIPID, PP, BUN, CREAT #### [address] Urea nitrogen [Mass/volume] in Serum or PlasmaOrdered By: Odilia Ernandez on 03-01-2025 Urea nitrogen [Mass/Vol] 12 mg/dL Normal 7-25 [facility] Comment on above: Performed By: #### L YTES, CBC, LIPID, PP, BUN, CREAT #### [facility] [address] [place] [address] [place] Basophils [#/volume] in Bloo d by Automated countOrdered By: Hetal Quick on 01-29-2025 Basophils (Bld) [#/Vol] 0.0 10*3/uL Normal 0.0-0.2 [facility] Comment on above: Result Comment: PERF ORMED BY: [place] [address] PATHOLOGIST MANUFACTURING PROCESS TECHNICIAN PEARL OLSON M.D. Performed By: #### L YTES, CBC, LIPID, PP, BUN, CREAT #### [place] [address] [place] Basophils/100 leukocytes in Blood by Automated countOrdered By: Hetal Quick on 01-29-2025 Basophils/100 WBC (Bld) 0.4 % Normal . [facility] Comment on above: Performed By: #### L YTES, CBC, LIPID, PP, BUN, CREAT #### [place] [address] [place] Carbon dioxide, total [Moles /volume] in Serum or PlasmaOrdered By: Hetal Quick on 01-29-2025 CO2 [Moles/Vol] 26.6 mmol/L Normal 21.0-31.0 [facility] Comment on above: Performed By: #### L YTES, CBC, LIPID, PP, BUN, CREAT #### [place] [address] [place] Chloride [Moles/volume] in S autumn or PlasmaOrdered By: Hetal Quick on 01-29-2025 Chloride [Moles/Vol] 105 mmol/L Normal 98-107 [facility] Comment on above: Performed By: #### L YTES, CBC, LIPID, PP, BUN, CREAT #### [place] [address] [place] Cholesterol [Mass/volume] in Serum or PlasmaOrdered By: Hetal Quick on 01-29-2025 Cholesterol [Mass/Vol] 147 mg/dL Normal 140-200 [facility] Comment on above: Chol less than 200 m g/dl low riskChol 201-239 mg/dl borderline riskChol 240 mg/dl and greater high risk Result Comment: Chol less than 200 mg/dl low risk Chol 201-239 mg/dl borderline risk Chol 240 mg/dl and greater high risk Performed By: #### L YTES, CBC, LIPID, PP, BUN, CREAT #### [facility] [address] [place] [id number] [place] Cholesterol in HDL [Mass/vol ume] in Serum or PlasmaOrdered By: Hetal Quick on 01-29-2025 Cholesterol in HDL [Mass/Vol] 69 mg/dL Normal 23-92 [facility] Comment on above: HDL CHOL ATP-III CLA SSIFICATION Cardiovascular RiskHDL > or equal to 60 mg/dL LOWHDL < 40 mg/dL HIGH Result Comment: HDL CHOL ATP-III CLASSIFICATION Cardiovascular Risk HDL > or equal to 60 mg/dL LOW HDL < 40 mg/dL HIGH Performed By: #### L YTES, CBC, LIPID, PP, BUN, CREAT #### [facility] [address] [place] [address] [place] Cholesterol in LDL Calc [Mas s/Vol]Ordered By: Hetal Quick on 01-29-2025 Cholesterol in LDL [Mass/Vol] 63 mg/dL 0-100 [facility] Comment on above: LDL ATP III CLASSIFI CATIONLDL less than 100 mg/dL OptimalLDL 100-129 mg/dL Near or above optimalLDL 130-159 mg/dL Borderline highLDL 160-189 mg/dL HighLDL greater than 189 mg/dL Very high Cholesterol in VLDL Calc [Ma ss/Vol]Ordered By: Hetal Quick on 01-29-2025 Cholesterol in VLDL [Mass/Vol] 14 mg/dL [facility] Coagulation Profileon 2024 aPTT Coag (Bld) [Time] 27.9 s Normal 25.1-36.5 [facility] Comment on above: Result Comment: A he matocrit value greater than 55% may lead to inaccurate results in coagulation testing. Patients having hematocrit values >55% require a special collection tube for coagulation studies. Please contact the laboratory at [phone] for redraw instructions. PERFORMED BY: [place] [address] PATHOLOGIST MANUFACTURING PROCESS TECHNICIAN PEARL OLSON M.D. Performed By: #### L YTES, CBC, LIPID, PP, BUN, CREAT #### [address] Complete Blood Count Auto Di ffon 01-29-2025 Mean Corpuscular HGB Conc 32.2 g/dL Low 32.5-35.6 [facility] Comment on above: Performed By: #### L YTES, CBC, LIPID, PP, BUN, CREAT #### [address] NRBC% 0.1 /100{WBC} Normal 0-0.5 [facility] Comment on above: Performed By: #### L YTES, CBC, LIPID, PP, BUN, CREAT #### [address] White Blood Count 5.1 [CFU]/mL Normal 4.1-10.5 [facility] Comment on above: Performed By: #### L YTES, CBC, LIPID, PP, BUN, CREAT #### [address] Creatinineon 01-29-2025 Creatinine Clr Calc Pharmacy 46.33 Normal [facility] Comment on above: Performed By: #### L YTES, CBC, LIPID, PP, BUN, CREAT #### [address] GFR/1.73 sq M.predicted MDRD (S/P/Bld) [Vol rate/Area] 41.724 mL/min/{1.73_m2} Normal [facility] Comment on above: Performed By: #### L YTES, CBC, LIPID, PP, BUN, CREAT #### [address] Creatinine [Mass/volume] in Serum or PlasmaOrdered By: Hetal Quick on 01-29-2025 Creatinine [Mass/Vol] 1.83 mg/dL High 0.70-1.30 [facility] Comment on above: Performed By: #### L YTES, CBC, LIPID, PP, BUN, CREAT #### [facility] [address] [place] [address] ECG 12 lead ECGon 01-29-2025 ECG 12 lead ECG [facility] [place] [address] [place] [address] Electrocardiograph Report Signed Patient: Morgan Latham MR#: [id number] : 1965 Acct:[id number] Age/Sex: 59 / M ADM Date: 01/29/25 Loc: Room: Type: [facility] Attending Dr: Hetal Quick DO Ordering Provider: Hetal Quick DO Date of Service: 01/29/25 ECG/ECG 12 lead ECG: [facility] Copies to: Test Reason : Blood Pressure [...] of Lateral leads Confirmed by Van Wright ([id number]) on 01/29/2025 3:53:13 PM Referred By: Electronically Signed By: Van Wright Transcribed By: MUS Signed By Van Wright MD 01/29/25 1553 Normal [facility] Eosinophils [#/volume] in Bl ood by Automated countOrdered By: Hetal Quick on 01-29-2025 Eosinophils (Bld) [#/Vol] 0.4 10*3/uL Normal 0.0-0.45 [facility] Comment on above: Performed By: #### L YTES, CBC, LIPID, PP, BUN, CREAT #### [facility] [address] [place] [address] [place] Eosinophils/100 leukocytes i n Blood by Automated countOrdered By: Hetal Quick on 01-29-2025 Eosinophils/100 WBC (Bld) 8.6 % Normal . [facility] Comment on above: Performed By: #### L YTES, CBC, LIPID, PP, BUN, CREAT #### [address] Erythrocyte distribution wid th [Ratio] by Automated countOrdered By: Hetal Quick on 01-29-2025 Erythrocyte distribution width (RBC) [Ratio] 16.6 % High 12.0-14.8 [facility] Comment on above: Performed By: #### L YTES, CBC, LIPID, PP, BUN, CREAT #### [address] Erythrocytes [#/volume] in B lood by Automated countOrdered By: Hetal Quick on 01-29-2025 RBC (Bld) [#/Vol] 3.66 10*6/uL Low 3.90-5.60 [facility] Comment on above: Performed By: #### L YTES, CBC, LIPID, PP, BUN, CREAT #### [address] Hematocrit [Volume Fraction] of Blood by Automated countOrdered By: Hetal Quick on 01-29-2025 Hematocrit (Bld) [Volume fraction] 32.7 % Low 38.8-50.0 [facility] Comment on above: Performed By: #### L YTES, CBC, LIPID, PP, BUN, CREAT #### [address] Hemoglobin [Mass/volume] in BloodOrdered By: Hetal Quick on 01-29-2025 Hemoglobin (Bld) [Mass/Vol] 10.5 g/dL Low 13.0-17.0 [facility] Comment on above: Performed By: #### L YTES, CBC, LIPID, PP, BUN, CREAT #### [place] [address] [place] INR in Platelet poor plasma by Coagulation assayOrdered By: Hetal Quick on 01-29-2025 INR Coag (PPP) [Relative time] 0.9 {INR} Normal [facility] Comment on above: INR Therapeutic Rang e A) Pre- and Peroperative OAT started two weeks before surgery. NOT HIP SURGERY: 1.5 - 2.5 HIP SURGERY: 2 - 3B) Primary and secondary prevention of venous THROMBOSIS: 2 - 3C) Active venous thrombosis, pulmonary embolismand prevention of recurrent venous thrombosis: 2 - 3D) Prevention of arterial thromboembolismincluding patients with mechanical heart valves: 3 - 4.5 Result Comment: INR Therapeutic Range A) Pre- and Peroperative OAT started two weeks before surgery. NOT HIP SURGERY: 1.5 - 2.5 HIP SURGERY: 2 - 3 B) Primary and secondary prevention of venous THROMBOSIS: 2 - 3 C) Active venous thrombosis, pulmonary embolism and prevention of recurrent venous thrombosis: 2 - 3 D) Prevention of arterial thromboembolism including patients with mechanical heart valves: 3 - 4.5 Performed By: #### L YTES, CBC, LIPID, PP, BUN, CREAT #### [facility] [address] Leukocytes [#/volume] correc liss for nucleated erythrocytes in Blood by Automated counOrdered By: Hetal Quick on 01-29-2025 WBC corrected for nucl RBC Auto (Bld) [#/Vol] 5.1 10*3/uL 4.1-10.5 [facility] Leukocytes [#/volume] in Blo od by Automated countOrdered By: Hetal Quick on 01-29-2025 WBC (Bld) [#/Vol] 5.1 10*3/uL Normal 4.1-10.5 [facility] Comment on above: Performed By: #### L YTES, CBC, LIPID, PP, BUN, CREAT #### [facility] [address] Lipid Panelon 01-29-2025 LDL Cholesterol,Calculated 63 mg/dL Normal 0-100 [facility] Comment on above: Result Comment: LDL ATP III CLASSIFICATION LDL less than 100 mg/dL Optimal LDL 100-129 mg/dL Near or above optimal LDL 130-159 mg/dL Borderline high LDL 160-189 mg/dL High LDL greater than 189 mg/dL Very high Performed By: #### L YTES, CBC, LIPID, PP, BUN, CREAT #### [facility] [address] Triglyceride w/Reflex 74 mg/dL Normal 0-149 [facility] Comment on above: Result Comment: TRIG ATP III CLASSIFICATION TRIG less than 150 mg/dL Normal TRIG 150-199 mg/dL Borderline high TRIG 200-500 mg/dL High TRIG greater than 500 mg/dL Very high Standard traceable to the Center for Disease Conrtrol and Prevention (CDC) test method. Performed By: #### L YTES, CBC, LIPID, PP, BUN, CREAT #### [facility] [address] VLDL CHOLESTEROL 14 mg/dL Normal [facility] Comment on above: Performed By: #### L YTES, CBC, LIPID, PP, BUN, CREAT #### [address] Lymphocytes [#/volume] in Bl ood by Automated countOrdered By: Hetal Quick on 01-29-2025 Lymphocytes (Bld) [#/Vol] 0.8 10*3/uL Low 1.00-4.8 [facility] Comment on above: Performed By: #### L YTES, CBC, LIPID, PP, BUN, CREAT #### [address] Lymphocytes/100 leukocytes i n Blood by Automated countOrdered By: Hetal Quick on 01-29-2025 Lymphocytes/100 WBC (Bld) 15.7 % Normal . [facility] Comment on above: Performed By: #### L YTES, CBC, LIPID, PP, BUN, CREAT #### [facility] [address] [place] [address] [place] MCH [Entitic mass] by Automa liss countOrdered By: Hetal Quick on 01-29-2025 MCH (RBC) [Entitic mass] 28.7 pg Normal 27.5-35.2 [facility] Comment on above: Performed By: #### L YTES, CBC, LIPID, PP, BUN, CREAT #### [address] [place] [address] [place] MCHC Auto (RBC) [Mass/Vol]Or dered By: Hetal uQick on 01-29-2025 MCHC (RBC) [Mass/Vol] 32.2 g/dL Low 32.5-35.6 [facility] MCV [Entitic volume] by Auto mated countOrdered By: Hetal Quick on 01-29-2025 MCV (RBC) [Entitic vol] 89.2 fL Normal 83.5-101 [facility] Comment on above: Performed By: #### L YTES, CBC, LIPID, PP, BUN, CREAT #### [facility] [address] [place] [address] [place] Monocytes [#/volume] in Bloo d by Automated countOrdered By: Hetal Quick on 01-29-2025 Monocytes (Bld) [#/Vol] 0.5 10*3/uL Normal 0.0-0.8 [facility] Comment on above: Performed By: #### L YTES, CBC, LIPID, PP, BUN, CREAT #### [facility] [address] [place] [address] [place] Monocytes/100 leukocytes in Blood by Automated countOrdered By: Hetal Quick on 01-29-2025 Monocytes/100 WBC (Bld) 9.0 % Normal . [facility] Comment on above: Performed By: #### L YTES, CBC, LIPID, PP, BUN, CREAT #### [facility] [address] [place] [address] [place] Neutrophils [#/volume] in Bl ood by Automated countOrdered By: Hetal Quick on 01-29-2025 Neutrophils (Bld) [#/Vol] 3.4 10*3/uL Normal 1.8-7.7 [facility] Comment on above: Performed By: #### L YTES, CBC, LIPID, PP, BUN, CREAT #### [facility] [address] [place] [address] [place] Neutrophils/100 leukocytes i n Blood by Automated countOrdered By: Hetal Quick on 01-29-2025 Neutrophils/100 WBC (Bld) 66.3 % Normal . [facility] Comment on above: Performed By: #### L YTES, CBC, LIPID, PP, BUN, CREAT #### [facility] [address] [place] [address] No Panel InformationOrdered By: Hetal Quick on 01-29-2025 Estimated GFR (CKD-EPI) 41.724 mL/Min [facility] Creatinine Clearance (Chem 46.33 [facility] Nucleated erythrocytes [Pres ence] in Blood by Automated countOrdered By: Hetal Quick on 01-29-2025 Nucleated RBC Auto Ql (Bld) 0.1 /100{WBC} 0-0.5 [facility] Platelet mean volume [Entiti c volume] in Blood by Automated countOrdered By: Hetal Quick on 01-29-2025 Platelet mean volume (Bld) [Entitic vol] 7.5 fL Normal 6.6-10.1 [facility] Comment on above: Performed By: #### L YTES, CBC, LIPID, PP, BUN, CREAT #### [address] Platelets [#/volume] in Bloo d by Automated countOrdered By: Hetal Quick on 01-29-2025 Platelets (Bld) [#/Vol] 352 10*3/uL Normal 150-450 [facility] Comment on above: Performed By: #### L YTES, CBC, LIPID, PP, BUN, CREAT #### [address] Potassium [Moles/volume] in Serum or PlasmaOrdered By: Hetal Quick on 01-29-2025 Potassium [Moles/Vol] 4.4 mmol/L Normal 3.5-5.1 [facility] Comment on above: Performed By: #### L YTES, CBC, LIPID, PP, BUN, CREAT #### [address] Prothrombin time (PT)Ordered By: Hetal Quick on 01-29-2025 PT Coag (PPP) [Time] 10.8 s Normal 9.0-12.9 [facility] Comment on above: A hematocrit value g reater than 55% may lead to inaccurate results in coagulation testing. Patients having hematocrit values >55% require a special collection tube for coagulation studies. Please contact the laboratory at [phone] for redraw instructions. Result Comment: A he matocrit value greater than 55% may lead to inaccurate results in coagulation testing. Patients having hematocrit values >55% require a special collection tube for coagulation studies. Please contact the laboratory at [phone] for redraw instructions. Performed By: #### L YTES, CBC, LIPID, PP, BUN, CREAT #### [address] Serum or plasma anion gap de terminationOrdered By: Hetal Quick on 01-29-2025 Anion gap [Moles/Vol] 10.8 mmol/L Normal 6.0-15.0 [facility] Comment on above: Performed By: #### L YTES, CBC, LIPID, PP, BUN, CREAT #### [address] Serum or plasma total choles terol/high density lipoprotein (HDL) cholesterol mass ratOrdered By: Hetal Quick on 01-29-2025 Cholesterol.total/Autumn sterol in HDL [Mass ratio] 2.1 {ratio} Normal <5.0 [facility] Comment on above: Result Comment: PERF ORMED BY: [place] [address] PATHOLOGIST MANUFACTURING PROCESS TECHNICIAN PEARL OLSON M.D. Performed By: #### L YTES, CBC, LIPID, PP, BUN, CREAT #### [address] Sodium [Moles/volume] in Ser um or PlasmaOrdered By: Hetal Quick on 01-29-2025 Sodium [Moles/Vol] 138 mmol/L Normal 136-145 [facility] Comment on above: Performed By: #### L YTES, CBC, LIPID, PP, BUN, CREAT #### [address] Triglyceride [Mass/volume] i n Serum or PlasmaOrdered By: Hetal Quick on 01-29-2025 Triglyceride [Mass/Vol] 74 mg/dL 0-149 [facility] Comment on above: TRIG ATP III CLASSIF ICATIONTRIG less than 150 mg/dL NormalTRIG 150-199 mg/dL Borderline highTRIG 200-500 mg/dL High TRIG greater than 500 mg/dL Very highStandard traceable to the Center for Disease Conrtrol and Prevention (CDC) test method. Urea nitrogen [Mass/volume] in Serum or PlasmaOrdered By: Hetal Quick on 01-29-2025 Urea nitrogen [Mass/Vol] 20 mg/dL Normal 7-25 [facility] Comment on above: Performed By: #### L YTES, CBC, LIPID, PP, BUN, CREAT #### [facility] [address] aPTT in Platelet poor plasma by Coagulation assayOrdered By: Hetal Quick on 01-29-2025 aPTT Coag (PPP) [Time] 27.9 s 25.1-36.5 [facility] Comment on above: A hematocrit value g reater than 55% may lead to inaccurate results in coagulation testing. Patients having hematocrit values >55% require a special collection tube for coagulation studies. Please contact the laboratory at [phone] for redraw instructions. NUCLEAR STRESS TEST EXERCISE (CARD)on 01-26-2025 Source Facility: [facility] Interpreted By: Earnest yDer and Giannuzzi Michael STUDY: MYOCARDIAL PERFUSION STRESS TEST WITH LEXISCAN Performing facility: [facility], [address] [place] [address], [address] [place] [address] Provider: Odilia Ernandez RN, BUNGY JUMP MASTER PCP: Dr. 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 High Cholesterol; CAD; Previous DE;2022 HTN; CHF Currently smoking. Cardiac catheterization on 2022. PTCA on 2022. CABG on 2022. COMPARISON: No comparison. ACCESSION NUMBER(S): [id number] ORDERING CLINICIAN: ODILIA ERNANDEZ TECHNIQUE: ONE DAY protocol. Stress injection: Date:01-25-25, 35.7 mCi of Myoview IV 20 seconds after rapid injection of Lexiscan. Rest injection: Date: 01-25-25, 11.0 mCi of Myoview IV at rest. The patient had a rapid injection of 0.4 mg of Lexiscan IV over 10 seconds. Imaging was performed by gated tomographic technique. Reason for Lexiscan: hip/knee pain STRESS TEST DATA: Resting heart rate was 66 BPM. Resting blood pressure was 136/86 mmHg. Peak blood pressure was 114/72 mmHg. Peak heart rate was 81 BPM. TEST TERMINATED DUE TO: Protocol completed FINDINGS: STRESS TEST RESULTS: Resting electrocardiogram revealed normal sinus rhythm nonspecific ST-T changes. There were no significant ischemic ECG changes or dysrhythmias. The patient did not have chest pains/symptoms during procedure. There was a normal recovery phase. IMAGING RESULTS: Image quality was good. Rest and stress tomographic images were reviewed and revealed abnormal perfusion. There was evidence of perfusion abnormality with small area of moderate which is reversible on rest images consistent with inferior ischemia. There was evidence of perfusion abnormality with large area of severe which is fixed on both rest and stress images consistent with anterolateral infarction. There was not left ventricular dilatation with stress. Overall left ventricular systolic function appeared to be abnormal. There were regional wall motion abnormalities with severe hypokinesis with anterolateral wall Post distress LVEF was 44%. The resting LVEF was 41% TID is 1.04 and is normal. There were no evidence of attenuation artifact. IMPRESSION: Abnormal Lexiscan Myoview cardiac perfusion stress test. Small area of moderate inferior myocardial ischemia by perfusion imaging. Large anterolateral myocardial infarction by perfusion imaging. Abnormal left ventricular systolic function. Left ventricular ejection fraction 44 %. No previous study available for comparison. Signed by: Earnest Dyer 01/26/2025 2:00 PM Dictation workstation: [id number] Radiology, Radiologi MD gatito - 01/26/2025 Source Facility: [facility] Interpreted By: Earnest Dyer and Giannuzzi Michael STUDY: MYOCARDIAL PERFUSION STRESS TEST WITH LEXISCAN Performing facility: [facility], [address] [facility], [address], [place] [address] [facility] Provider: Odilia Ernandez RN, BUNGY JUMP MASTER PCP: Dr. 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 High Cholesterol; CAD; Previous DE;2022 HTN; CHF Currently smoking. Cardiac catheterization on 2022. PTCA on 2022. CABG on 2022. COMPARISON: No comparison. ACCESSION NUMBER(S): [id number] ORDERING CLINICIAN: ODILIA ERNANDEZ TECHNIQUE: ONE DAY protocol. Stress injection: Date:01-25-25, 35.7 mCi of Myoview IV 20 seconds after rapid injection of Lexiscan. Rest injection: Date: 01-25-25, 11.0 mCi of Myoview IV at rest. The patient had a rapid injection of 0.4 mg of Lexiscan IV over 10 seconds. Imaging was performed by gated tomographic technique. Reason for Lexiscan: hip/knee pain STRESS TEST DATA: Resting heart rate was 66 BPM. Resting blood pressure was 136/86 mmHg. Peak blood pressure was 114/72 mmHg. Peak heart rate was 81 BPM. TEST TERMINATED DUE TO: Protocol completed FINDINGS: STRESS TEST RESULTS: Resting electrocardiogram revealed normal sinus rhythm nonspecific ST-T changes. There were no significant ischemic ECG changes or dysrhythmias. The patient did not have chest pains/symptoms during procedure. There was a normal recovery phase. IMAGING RESULTS: Image quality was good. Rest and stress tomographic images were reviewed and revealed abnormal perfusion. There was evidence of perfusion abnormality with small area of moderate which is reversible on rest images consistent with inferior ischemia. There was evidence of perfusion abnormality with large area of severe which is fixed on both rest and stress images consistent with anterolateral infarction. There was not left ventricular dilatation with stress. Overall left ventricular systolic function appeared to be abnormal. There were regional wall motion abnormalities with severe hypokinesis with anterolateral wall Post distress LVEF was 44%. The resting LVEF was 41% TID is 1.04 and is normal. There were no evidence of attenuation artifact. IMPRESSION: Abnormal Lexiscan Myoview cardiac perfusion stress test. Small area of moderate inferior myocardial ischemia by perfusion imaging. Large anterolateral myocardial infarction by perfusion imaging. Abnormal left ventricular systolic function. Left ventricular ejection fraction 44 %. No previous study available for comparison. Signed by: Earnest Dyer 01/26/2025 2:00 PM Dictation workstation: [id number] [facility] Niko Niko NUCLEAR STRESS TEST EXERCISE (CARD)Ordered By: Radiologist Radiology on 01-26-2025 [email or web address] Work Phone: NUCLEAR STRESS TESTon 2024 NUCLEAR STRESS TEST Interpreted By: Earnest Dyer and Giannuzzi Michael STUDY: MYOCARDIAL PERFUSION STRESS TEST WITH LEXISCAN Performing facility: [facility], [address] [place] [address], [address], [address] Provider: Odilia Ernandez RN, BUNGY JUMP MASTER PCP: Dr. 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 High Cholesterol; CAD; Previous DE;2022 HTN; CHF Currently smoking. Cardiac catheterization on 2022. PTCA on 2022. CABG on 2022. COMPARISON: No comparison. ACCESSION NUMBER(S): [id number] ORDERING CLINICIAN: ODILIA ERNANDEZ TECHNIQUE: ONE DAY protocol. Stress injection: Date:01-25-25, 35.7 mCi of Myoview IV 20 seconds after rapid injection of Lexiscan. Rest injection: Date: 01-25-25, 11.0 mCi of Myoview IV at rest. The patient had a rapid injection of 0.4 mg of Lexiscan IV over 10 seconds. Imaging was performed by gated tomographic technique. Reason for Lexiscan: hip/knee pain STRESS TEST DATA: Resting heart rate was 66 BPM. Resting blood pressure was 136/86 mmHg. Peak blood pressure was 114/72 mmHg. Peak heart rate was 81 BPM. TEST TERMINATED DUE TO: Protocol completed FINDINGS: STRESS TEST RESULTS: Resting electrocardiogram revealed normal sinus rhythm nonspecific ST-T changes. There were no significant ischemic ECG changes or dysrhythmias. The patient did not have chest pains/symptoms during procedure. There was a normal recovery phase. IMAGING RESULTS: Image quality was good. Rest and stress tomographic images were reviewed and revealed abnormal perfusion. There was evidence of perfusion abnormality with small area of moderate which is reversible on rest images consistent with inferior ischemia. There was evidence of perfusion abnormality with large area of severe which is fixed on both rest and stress images consistent with anterolateral infarction. There was not left ventricular dilatation with stress. Overall left ventricular systolic function appeared to be abnormal. There were regional wall motion abnormalities with severe hypokinesis with anterolateral wall Post distress LVEF was 44%. The resting LVEF was 41% TID is 1.04 and is normal. There were no evidence of attenuation artifact. IMPRESSION: Abnormal Lexiscan Myoview cardiac perfusion stress test. Small area of moderate inferior myocardial ischemia by perfusion imaging. Large anterolateral myocardial infarction by perfusion imaging. Abnormal left ventricular systolic function. Left ventricular ejection fraction 44 %. No previous study available for comparison. Signed by: Earnest Dyer 01/26/2025 2:00 PM Dictation workstation: [id number] Normal [facility] NUCLEAR STRESS TEST EXERCISE (CARD)on 01-25-2025 Radiology Study observation (narrative) [facility] Basic Metabolic Panelon 06-0 Creatinine Clr Calc Pharmacy 71.43 Normal [facility] Comment on above: Result Comment: PERF ORMED BY: [place] [address] PATHOLOGIST MANUFACTURING PROCESS TECHNICIAN PEARL OLSON M.D. Performed By: #### L YTES, CBC, LIPID, PP, BUN, CREAT #### [address] GFR/1.73 sq M.predicted MDRD (S/P/Bld) [Vol rate/Area] mL/min/{1.73_m2} Normal [facility] Comment on above: Performed By: #### L YTES, CBC, LIPID, PP, BUN, CREAT #### [facility] [address] [place] [address] [place] Calcium [Mass/volume] in Ser um or PlasmaOrdered By: Jud Hutchison on 01-08-2025 Calcium [Mass/Vol] Calcium [Mass/volume ] in Serum or Plasma 8.6-10.3 [facility] Calcium [Mass/Vol] 8.8 mg/dL Normal 8.6-10.3 [facility] Comment on above: Performed By: #### L YTES, CBC, LIPID, PP, BUN, CREAT #### [facility] [address] Carbon dioxide, total [Moles /volume] in Serum or PlasmaOrdered By: Jud Hutchison on 01-08-2025 CO2 [Moles/Vol] Carbon dioxide, tota l [Moles/volume] in Serum or Plasma 21.0-31.0 [facility] CO2 [Moles/Vol] 28.2 mmol/L Normal 21.0-31.0 [facility] Comment on above: Performed By: #### L YTES, CBC, LIPID, PP, BUN, CREAT #### [facility] [address] [place] [address] [place] Chloride [Moles/volume] in S autumn or PlasmaOrdered By: Jud Hutchison on 01-08-2025 Chloride [Moles/Vol] Chloride [Moles/vol ume] in Serum or Plasma 98-107 [facility] Chloride [Moles/Vol] 104 mmol/L Normal 98-107 [facility] Comment on above: Performed By: #### L YTES, CBC, LIPID, PP, BUN, CREAT #### [facility] [address] [place] [address] [place] Creatinine [Mass/volume] in Serum or PlasmaOrdered By: Jud Hutchison on 01-08-2025 Creatinine [Mass/Vol] Creatinine [Mass/v olume] in Serum or Plasma 0.70-1.30 [facility] Creatinine [Mass/Vol] 1.18 mg/dL Normal 0.70-1.30 [facility] Comment on above: Performed By: #### L YTES, CBC, LIPID, PP, BUN, CREAT #### [facility] [address] [place] [address] [place] Glucose [Mass/volume] in Ser um or PlasmaOrdered By: Jud Hutchison on 01-08-2025 Glucose [Mass/Vol] Glucose [Mass/volume ] in Serum or Plasma High 70-100 [facility] Comment on above: ADA recommended refe rence rangeRandom Glucose Reference Range is dependent on time and content of last meal. Glucose of more than 200 mg/dL in a nonstressed, ambulatory subject supports the diagnosis of Diabetes Mellitus. Glucose [Mass/Vol] 106 mg/dL High 70-100 [facility] Comment on above: ADA recommended refe rence rangeRandom Glucose Reference Range is dependent on time and content of last meal. Glucose of more than 200 mg/dL in a nonstressed, ambulatory subject supports the diagnosis of Diabetes Mellitus. Result Comment: [place] om Glucose Reference Range is dependent on time and content of last meal. Glucose of more than 200 mg/dL in a nonstressed, ambulatory subject supports the diagnosis of Diabetes Mellitus. ADA recommended reference range Performed By: #### L YTES, CBC, LIPID, PP, BUN, CREAT #### [facility] [address] No Panel InformationOrdered By: Jud Hutchison on 01-08-2025 Estimated GFR (CKD-EPI) > 60.0 mL/Min [facility] Creatinine Clearance (Chem 71.43 [facility] Potassium [Moles/volume] in Serum or PlasmaOrdered By: Jud Hutchison on 01-08-2025 Potassium [Moles/Vol] Potassium [Moles/v olume] in Serum or Plasma 3.5-5.1 [facility] Comment on above: Hemolysis is present at a level that could interfere with the result.Contact lab if redraw is required Potassium [Moles/Vol] 3.7 mmol/L Normal 3.5-5.1 [facility] Comment on above: Hemolysis is present at a level that could interfere with the result.Contact lab if redraw is required Result Comment: Hemo lysis is present at a level that could interfere with the result. Contact lab if redraw is required Performed By: #### L YTES, CBC, LIPID, PP, BUN, CREAT #### [facility] [address] Serum or plasma anion gap de terminationOrdered By: Jud Hutchison on 01-08-2025 Anion gap [Moles/Vol] Serum or plasma an ion gap determination 6.0-15.0 [facility] Anion gap [Moles/Vol] 11.5 mmol/L Normal 6.0-15.0 [facility] Comment on above: Performed By: #### L YTES, CBC, LIPID, PP, BUN, CREAT #### [facility] [address] Sodium [Moles/volume] in Ser um or PlasmaOrdered By: Jud Hutchison on 01-08-2025 Sodium [Moles/Vol] Sodium [Moles/volume ] in Serum or Plasma 136-145 [facility] Sodium [Moles/Vol] 140 mmol/L Normal 136-145 [facility] Comment on above: Performed By: #### L YTES, CBC, LIPID, PP, BUN, CREAT #### [facility] [address] Urea nitrogen [Mass/volume] in Serum or PlasmaOrdered By: Jud Hutchison on 01-08-2025 Urea nitrogen [Mass/Vol] Urea nitrogen [Mass/volume] in Serum or Plasma 02-26 [facility] Urea nitrogen [Mass/Vol] 17 mg/dL Normal 02-26 [facility] Comment on above: Performed By: #### L YTES, CBC, LIPID, PP, BUN, CREAT #### [facility] [address] [place] [address] [place] Alanine aminotransferase [En zymatic activity/volume] in Serum or PlasmaOrdered By: Sabi Choudhury on 01-07-2025 ALT [Catalytic activity/Vol] Alanine aminotransferase [Enzymatic activity/volume] in Serum or Plasma [facility] ALT [Catalytic activity/Vol] 16 U/L Normal [facility] Comment on above: Performed By: #### C BC, MG, CMP #### [facility] [address] [place] [address] Albumin [Mass/volume] in Ser um or Plasma by Bromocresol green (BCG) dye binding methoOrdered By: Sabi Choudhury on 01-07-2025 Albumin BCG dye [Mass/Vol] Albumin [Mass/volume] in Serum or Plasma by Bromocresol green (BCG) dye binding metho 3.5-5.7 [facility] Albumin BCG dye [Mass/Vol] 3.8 g/dL 3.5-5.7 [facility] Alkaline phosphatase [Enzyma tic activity/volume] in Serum or PlasmaOrdered By: Sabi Choudhury on 01-07-2025 ALP [Catalytic activity/Vol] Alkaline phosphatase [Enzymatic activity/volume] in Serum or Plasma 34-104 [facility] ALP [Catalytic activity/Vol] 87 U/L Normal 34-104 [facility] Comment on above: Performed By: #### C WAQAR, MG, CMP #### [facility] [address] [place] [address] Aspartate aminotransferase [ Enzymatic activity/volume] in Serum or PlasmaOrdered By: Sabi Choudhury on 01-07-2025 AST [Catalytic activity/Vol] Aspartate aminotransferase [Enzymatic activity/volume] in Serum or Plasma 13-39 [facility] AST [Catalytic activity/Vol] 18 U/L Normal 13-39 [facility] Comment on above: Performed By: #### C WAQAR, MG, CMP #### [facility] [address] [place] [address] Basophils Auto (Bld) [#/Vol] Ordered By: Sabi Choudhury on 01-07-2025 Basophils (Bld) [#/Vol] Automated basophil count 0.0-0.2 [facility] Basophils [#/volume] in Bloo d by Automated countOrdered By: Sabi Choudhury on 01-07-2025 Basophils (Bld) [#/Vol] 0.1 10*3/uL Normal 0.0-0.2 [facility] Comment on above: Result Comment: PERF ORMED BY: [address] [place] [address] PATHOLOGIST MANUFACTURING PROCESS TECHNICIAN PEARL OLSON M.D. Performed By: #### C BC, MG, CMP #### [address] Basophils/100 WBC Auto (Bld) Ordered By: Sabi Choudhury on 01-07-2025 Basophils/100 WBC (Bld) Automated basophil % . [facility] Basophils/100 leukocytes in Blood by Automated countOrdered By: Sabi Choudhury on 01-07-2025 Basophils/100 WBC (Bld) 1.4 % Normal . [facility] Comment on above: Performed By: #### C BC, MG, CMP #### [address] Bilirubin.total [Mass/volume ] in Serum or PlasmaOrdered By: Sabi Choudhury on 01-07-2025 Bilirubin [Mass/Vol] Bilirubin.total [Mass/volume] in Serum or Plasma 0.3-1.0 [facility] Bilirubin [Mass/Vol] 0.6 mg/dL Normal 0.3-1.0 [facility] Comment on above: Performed By: #### C BC, MG, CMP #### [address] Complete Blood Count Auto Di ffon 01-07-2025 Mean Corpuscular HGB Conc 33.3 g/dL Normal 32.5-35.6 [facility] Comment on above: Performed By: #### C BC, MG, CMP #### [address] NRBC% 0.1 /100{WBC} Normal 0-0.5 [facility] Comment on above: Performed By: #### C BC, MG, CMP #### [address] Comprehensive Metabolic Pane carlos 01-07-2025 Albumin [Mass/Vol] 3.8 g/dL Normal 3.5-5.7 [facility] Comment on above: Performed By: #### C BC, MG, CMP #### [facility] [address] [place] [id number] [place] Anion gap [Moles/Vol] 13.6 mmol/L Normal 6.0-15.0 [facility] Comment on above: Performed By: #### C BC, MG, CMP #### [facility] [address] [place] [id number] [place] Calcium [Mass/Vol] 8.6 mg/dL Normal 8.6-10.3 [facility] Comment on above: Performed By: #### C BC, MG, CMP #### [facility] [address] [place] [address] [place] Chloride [Moles/Vol] 104 mmol/L Normal 98-107 [facility] Comment on above: Performed By: #### C BC, MG, CMP #### [facility] [address] [place] [address] [place] CO2 [Moles/Vol] 26.9 mmol/L Normal 21.0-31.0 [facility] Comment on above: Performed By: #### C BC, MG, CMP #### [facility] [address] [place] [id number] [place] Creatinine [Mass/Vol] 1.22 mg/dL Normal 0.70-1.30 [facility] Comment on above: Performed By: #### C BC, MG, CMP #### [facility] [address] [place] [address] [place] Creatinine Clr Calc Pharmacy 71.09 Normal [facility] Comment on above: Performed By: #### C BC, MG, CMP #### [facility] [address] [place] [id number] [place] GFR/1.73 sq M.predicted MDRD (S/P/Bld) [Vol rate/Area] mL/min/{1.73_m2} Normal [facility] Comment on above: Performed By: #### C BC, MG, CMP #### [facility] [address] [place] [id number] [place] Glucose [Mass/Vol] 118 mg/dL High 70-100 [facility] Comment on above: Result Comment: [place] [facility] Glucose Reference Range is dependent on time and content of last meal. Glucose of more than 200 mg/dL in a nonstressed, ambulatory subject supports the diagnosis of Diabetes Mellitus. ADA recommended reference range Performed By: #### C WAQAR MG, CMP #### [facility] [address] Potassium [Moles/Vol] 3.5 mmol/L Normal 3.5-5.1 [facility] Comment on above: Performed By: #### C WAQAR MG, CMP #### [facility] [address] [place] [address] [place] Sodium [Moles/Vol] 141 mmol/L Normal 136-145 [facility] Comment on above: Performed By: #### C WAQAR MG, CMP #### [facility] [address] Urea nitrogen [Mass/Vol] 15 mg/dL Normal 7-25 [facility] Comment on above: Performed By: #### C WAQAR MG, CMP #### [facility] [address] [place] [address] [place] Eosinophils Auto (Bld) [#/Vo l]Ordered By: Sabi Choudhury on 01-07-2025 Eosinophils (Bld) [#/Vol] Automated eosinophil count 0.0-0.45 [facility] Eosinophils [#/volume] in Bl ood by Automated countOrdered By: Sabi Choudhury on 01-07-2025 Eosinophils (Bld) [#/Vol] 0.2 10*3/uL Normal 0.0-0.45 [facility] Comment on above: Performed By: #### C WAQAR MG, CMP #### [facility] [address] [place] [address] [place] Eosinophils/100 WBC Auto (Bl d)Ordered By: Sabi Choudhury on 01-07-2025 Eosinophils/100 WBC (Bld) Automated eosinophil % . [facility] Eosinophils/100 leukocytes i n Blood by Automated countOrdered By: Sabi Choudhury on 01-07-2025 Eosinophils/100 WBC (Bld) 3.8 % Normal . [facility] Comment on above: Performed By: #### C BC, MG, CMP #### [facility] [address] Erythrocyte distribution wid th Auto (RBC) [Ratio]Ordered By: Sabi Choudhury on 01-07-2025 Erythrocyte distribution width (RBC) [Ratio] Erythrocyte distribution width [Ratio] by Automated count High 12.0-14.8 [facility] Erythrocyte distribution wid th [Ratio] by Automated countOrdered By: Sabi Choudhury on 01-07-2025 Erythrocyte distribution width (RBC) [Ratio] 16.4 % High 12.0-14.8 [facility] Comment on above: Performed By: #### C BC, MG, CMP #### [facility] [address] Erythrocytes [#/volume] in B lood by Automated countOrdered By: Sabi Choudhury on 01-07-2025 RBC (Bld) [#/Vol] 3.40 10*6/uL Low 3.90-5.60 [facility] Comment on above: Performed By: #### C BC, MG, CMP #### [facility] [address] Globulin Calc (S) [Mass/Vol] Ordered By: Sabi Choudhury on 01-07-2025 Globulin (S) [Mass/Vol] Serum globulin measurement by calculation (mass/volume) [facility] Hematocrit Auto (Bld) [Volum e fraction]Ordered By: Sabi Choudhury on 01-07-2025 Hematocrit (Bld) [Volume fraction] Hematocrit [Volume Fraction] of Blood by Automated count Low 38.8-50.0 [facility] Hematocrit [Volume Fraction] of Blood by Automated countOrdered By: Sabi Choudhury on 01-07-2025 Hematocrit (Bld) [Volume fraction] 30.5 % Low 38.8-50.0 [facility] Comment on above: Performed By: #### C BC, MG, CMP #### [facility] [address] Hemoglobin [Mass/volume] in BloodOrdered By: Sabi Choudhury on 01-07-2025 Hemoglobin (Bld) [Mass/Vol] Hemoglobin [Mass/volume] in Blood Low 13.0-17.0 [facility] Hemoglobin (Bld) [Mass/Vol] 10.1 g/dL Low 13.0-17.0 [facility] Comment on above: Performed By: #### C BC, MG, CMP #### [facility] [address] [place] [address] Leukocytes [#/volume] correc liss for nucleated erythrocytes in Blood by Automated counOrdered By: Sabi Choudhury on 01-07-2025 WBC corrected for nucl RBC Auto (Bld) [#/Vol] Leukocytes [#/volume] corrected for nucleated erythrocytes in Blood by Automated coun 4.1-10.5 [facility] WBC corrected for nucl RBC Auto (Bld) [#/Vol] 4.5 10*3/uL 4.1-10.5 [facility] Leukocytes [#/volume] in Blo od by Automated countOrdered By: Sabi Choudhury on 01-07-2025 WBC (Bld) [#/Vol] 4.5 10*3/uL Normal 4.1-10.5 [facility] Comment on above: Performed By: #### C WAQAR MG, CMP #### [facility] [address] [place] [address] Lymphocytes Auto (Bld) [#/Vo l]Ordered By: Sabi Choudhury on 01-07-2025 Lymphocytes (Bld) [#/Vol] Lymphocytes [#/volume] in Blood by Automated count Low 1.00-4.8 [facility] Lymphocytes [#/volume] in Bl ood by Automated countOrdered By: Sabi Choudhury on 01-07-2025 Lymphocytes (Bld) [#/Vol] 0.6 10*3/uL Low 1.00-4.8 [facility] Comment on above: Performed By: #### C BC, MG, CMP #### [facility] [address] [place] [address] Lymphocytes/100 WBC Auto (Bl d)Ordered By: Sabi Choudhury on 01-07-2025 Lymphocytes/100 WBC (Bld) Lymphocytes/100 leukocytes in Blood by Automated count . [facility] Lymphocytes/100 leukocytes i n Blood by Automated countOrdered By: Sabi Choudhury on 01-07-2025 Lymphocytes/100 WBC (Bld) 14.4 % Normal . [facility] Comment on above: Performed By: #### C BC, MG, CMP #### [facility] [address] MCH Auto (RBC) [Entitic mass ]Ordered By: Sabi Choudhury on 01-07-2025 MCH (RBC) [Entitic mass] MCH [Entitic mass] by Automated count 27.5-35.2 [facility] MCH [Entitic mass] by Automa liss countOrdered By: Sabi Choudhury on 01-07-2025 MCH (RBC) [Entitic mass] 29.8 pg Normal 27.5-35.2 [facility] Comment on above: Performed By: #### C BC MG, CMP #### [facility] [address] MCHC Auto (RBC) [Mass/Vol]Or dered By: Sabi Choudhury on 01-07-2025 MCHC (RBC) [Mass/Vol] MCHC [Mass/volume] by Automated count 32.5-35.6 [facility] MCHC (RBC) [Mass/Vol] 33.3 g/dL 32.5-35.6 [facility] MCV Auto (RBC) [Entitic vol] Ordered By: Sabi Choudhury on 01-07-2025 MCV (RBC) [Entitic vol] MCV [Entitic vol ume] by Automated count 83.5-101 [facility] MCV [Entitic volume] by Auto mated countOrdered By: Sabi Choudhury on 01-07-2025 MCV (RBC) [Entitic vol] 89.6 fL Normal 83.5-101 [facility] Comment on above: Performed By: #### C BC, MG, CMP #### [facility] [address] Magnesium [Mass/volume] in S autumn or PlasmaOrdered By: Sabi Choudhury on 01-07-2025 Magnesium [Mass/Vol] Magnesium [Mass/vol ume] in Serum or Plasma Low 1.9-2.7 [facility] Magnesium [Mass/Vol] 1.7 mg/dL Low 1.9-2.7 [facility] Comment on above: Result Comment: PERF ORMED BY: [place] [address] PATHOLOGIST MANUFACTURING PROCESS TECHNICIAN PEARL OLSON M.D. Performed By: #### C BC, MG, CMP #### [facility] [address] Monocytes Auto (Bld) [#/Vol] Ordered By: Sabi Choudhury on 01-07-2025 Monocytes (Bld) [#/Vol] Automated blood monocyte count 0.0-0.8 [facility] Monocytes [#/volume] in Bloo d by Automated countOrdered By: Sabi Choudhury on 01-07-2025 Monocytes (Bld) [#/Vol] 0.6 10*3/uL Normal 0.0-0.8 [facility] Comment on above: Performed By: #### C BC, MG, CMP #### [facility] [address] [place] [address] [place] Monocytes/100 WBC Auto (Bld) Ordered By: Sabi Choudhury on 01-07-2025 Monocytes/100 WBC (Bld) Automated monocyte % . [facility] Monocytes/100 leukocytes in Blood by Automated countOrdered By: Sabi Choudhury on 01-07-2025 Monocytes/100 WBC (Bld) 14.4 % Normal . [facility] Comment on above: Performed By: #### C BC, MG, CMP #### [facility] [address] [place] [address] [place] Neutrophils Auto (Bld) [#/Vo l]Ordered By: Sabi Choudhury on 01-07-2025 Neutrophils (Bld) [#/Vol] Neutrophils [#/volume] in Blood by Automated count 1.8-7.7 [facility] Neutrophils [#/volume] in Bl ood by Automated countOrdered By: Sabi Choudhury on 01-07-2025 Neutrophils (Bld) [#/Vol] 3.0 10*3/uL Normal 1.8-7.7 [facility] Comment on above: Performed By: #### C MG WAQAR, CMP #### [facility] [address] Neutrophils/100 WBC Auto (Bl d)Ordered By: Sabi Choudhury on 01-07-2025 Neutrophils/100 WBC (Bld) Automated neutrophil % . [facility] Neutrophils/100 leukocytes i n Blood by Automated countOrdered By: Sabi Choudhury on 01-07-2025 Neutrophils/100 WBC (Bld) 66.0 % Normal . [facility] Comment on above: Performed By: #### C MG WAQAR, CMP #### [facility] [address] Nucleated erythrocytes [Pres ence] in Blood by Automated countOrdered By: Sabi Choudhury on 01-07-2025 Nucleated RBC Auto Ql (Bld) Nucleated erythrocytes [Presence] in Blood by Automated count 0-0.5 [facility] Nucleated RBC Auto Ql (Bld) 0.1 /100{WBC} 0-0.5 [facility] Platelet mean volume Auto (B ld) [Entitic vol]Ordered By: Sabi Choudhury on 01-07-2025 Platelet mean volume (Bld) [Entitic vol] Platelet mean volume [Entitic volume] in Blood by Automated count 6.6-10.1 [facility] Platelet mean volume [Entiti c volume] in Blood by Automated countOrdered By: Sabi Choudhury on 01-07-2025 Platelet mean volume (Bld) [Entitic vol] 7.8 fL Normal 6.6-10.1 [facility] Comment on above: Performed By: #### C MG WAQAR, CMP #### [facility] [address] [place] [address] [place] Platelets Auto (Bld) [#/Vol] Ordered By: Sabi Choudhury on 01-07-2025 Platelets (Bld) [#/Vol] Platelets [#/vol ume] in Blood by Automated count 150-450 [facility] Platelets [#/volume] in Bloo d by Automated countOrdered By: Sabi Choudhury on 01-07-2025 Platelets (Bld) [#/Vol] 350 10*3/uL Normal 150-450 [facility] Comment on above: Performed By: #### C BC, MG, CMP #### [facility] [address] [place] [address] Protein [Mass/volume] in Ser um or PlasmaOrdered By: Sabi Choudhury on 01-07-2025 Protein [Mass/Vol] Protein [Mass/volume ] in Serum or Plasma Low 6.4-8.9 [facility] Protein [Mass/Vol] 6.3 g/dL Low 6.4-8.9 [facility] Comment on above: Performed By: #### C BC, MG, CMP #### [facility] [address] [place] [address] RBC Auto (Bld) [#/Vol]Ordere d By: Sabi Choudhury on 01-07-2025 RBC (Bld) [#/Vol] Erythrocytes [#/volu me] in Blood by Automated count Low 3.90-5.60 [facility] Serum globulin measurement b y calculation (mass/volume)Ordered By: Sabi Choudhury on 01-07-2025 Globulin (S) [Mass/Vol] 2.5 g/dL Normal [facility] Comment on above: Performed By: #### C BC, MG, CMP #### [facility] [address] [place] [address] Serum or plasma albumin/glob ulin mass ratioOrdered By: Sabi Choudhury on 01-07-2025 Albumin/Globulin [Mass ratio] Serum or plasma albumin/globulin mass ratio [facility] Albumin/Globulin [Mass ratio] 1.5 {ratio} Normal [facility] Comment on above: Performed By: #### C BC, MG, CMP #### [facility] [address] [place] [address] WBC Auto (Bld) [#/Vol]Ordere d By: Sabi Choudhury on 01-07-2025 WBC (Bld) [#/Vol] Leukocytes [#/volume ] in Blood by Automated count 4.1-10.5 [facility] Alanine aminotransferase [En zymatic activity/volume] in Serum or PlasmaOrdered By: Ayesha Hunter on 01-06-2025 ALT [Catalytic activity/Vol] Alanine aminotransferase [Enzymatic activity/volume] in Serum or Plasma 7-52 [facility] Albumin [Mass/volume] in Ser um or Plasma by Bromocresol green (BCG) dye binding methoOrdered By: Ayesha Hunter on 01-06-2025 Albumin BCG dye [Mass/Vol] Albumin [Mass/volume] in Serum or Plasma by Bromocresol green (BCG) dye binding metho 3.5-5.7 [facility] Alkaline phosphatase [Enzyma tic activity/volume] in Serum or PlasmaOrdered By: Ayesha Hunter on 01-06-2025 ALP [Catalytic activity/Vol] Alkaline phosphatase [Enzymatic activity/volume] in Serum or Plasma 34-104 [facility] Amphetamine Screen Ql (U)Ord ered By: Ayesha Hunter on 01-06-2025 Amphetamines Ql (U) Amphetamines screen Negativ e [facility] Amphetamines Ql (U) Negative Negative [facility] Appearance of UrineOrdered B y: Ayesha Hunter on 01-06-2025 Appearance (U) Urine appearance Clear [facility] Appearance (U) Clear Normal Clear [facility] Comment on above: Order Comment: Name Collection Type:: Clean-Voided Midstream Performed By: #### L YTES, CBC, LIPID, PP, BUN, CREAT #### [facility] [address] Aspartate aminotransferase [ Enzymatic activity/volume] in Serum or PlasmaOrdered By: Ayesha Hnuter on 01-06-2025 AST [Catalytic activity/Vol] Aspartate aminotransferase [Enzymatic activity/volume] in Serum or Plasma 13-39 [facility] BNP ser/plasOrdered By: Drew Hunter on 01-06-2025 Natriuretic peptide B (Bld) [Mass/Vol] 2602.0 pg/mL High 5-100 [facility] Comment on above: Result Comment: PERF ORMED BY: [facility] [address] [place] [address] PATHOLOGIST MANUFACTURING PROCESS TECHNICIAN PEARL OLSON M.D. Performed By: #### L YTES, CBC, LIPID, PP, BUN, CREAT #### [facility] [address] Barbiturates [Presence] in U rine by Screen methodOrdered By: Ayesha Hunter on 01-06-2025 Barbiturates Screen Ql (U) Barbiturates [Presence] in Urine by Screen method Negative [facility] Barbiturates Screen Ql (U) Negative Negative [facility] Basophils Auto (Bld) [#/Vol] Ordered By: Ayesha Hunter on 01-06-2025 Basophils (Bld) [#/Vol] Automated basophil count 0.0-0.2 [facility] Basophils/100 WBC Auto (Bld) Ordered By: Ayesha Hunter on 01-06-2025 Basophils/100 WBC (Bld) Automated basophil % . [facility] Benzodiazepines Screen Ql (U )Ordered By: Ayesha Hunter on 01-06-2025 Benzodiazepines Ql (U) Benzodiazepines [Presence] in Urine by Screen method Negative [facility] Benzodiazepines Ql (U) Negative Negative [facility] Benzoylecgonine [Presence] i n Urine by Screen methodOrdered By: Ayesha Hunter on 01-06-2025 Benzoylecgonine Screen Ql (U) Benzoylecgonine [Presence] in Urine by Screen method Negative [facility] Benzoylecgonine Screen Ql (U) Negative Negative [facility] Bilirubin Test strip Ql (U)O rdered By: Ayesha Hunter on 01-06-2025 Bilirubin Ql (U) Bilirubin.total [Presence] in Urine by Test strip Negative [facility] Bilirubin Ql (U) Negative Negative [facility] Bilirubin.total [Mass/volume ] in Serum or PlasmaOrdered By: Ayesha Hunter on 01-06-2025 Bilirubin [Mass/Vol] Bilirubin.total [Mass/volume] in Serum or Plasma 0.3-1.0 [facility] Blood Cultureon 01-06-2025 Bacteria identified Cx Nom (Bld) NO GROWTH 5 DAYS PERFORMED BY: [facility] [address] [place] [address] PATHOLOGIST MANUFACTURING PROCESS TECHNICIAN PEARL OLSON M.D. Normal [facility] Comment on above: Performed By: #### L YTES, CBC, LIPID, PP, BUN, CREAT #### [facility] [address] [place] [id number] [facility] COVID Cepheid NegativeOrdere d By: Sabi Choudhury on 01-06-2025 SARS-CoV-2 (COVID-19) Ab IA Ql COVID Cepheid Negative [facility] Comment on above: This is a duplicate Cepheid Xpert Xpress CoV-2/Flu/RSV Plus RNA by RT-PCR result to be used for statistical tracking purpose only. SARS-CoV-2 (COVID-19) Ab IA Ql Negative Negative [facility] Comment on above: This is a duplicate Cepheid Xpert Xpress CoV-2/Flu/RSV Plus RNA by RT-PCR result to be used for statistical tracking purpose only. COVID-19 / Flu A/B / RSV PCR on 01-06-2025 SARS-CoV-2 (COVID-19) RNA AMARJIT+probe Ql (Unsp spec) COVID-19 Cepheid Result Negative for SARS-CoV-2 RNA by RT-PCR Flu A Cepheid Result Negative for Flu A RNA by RT-PCR Flu B Cepheid Result Negative for Flu B RNA by RT-PCR RSV Cepheid Result Negative for RSV RNA by RT-PCR COVID19 Blank Space ---- Reference: Negative COVID19 Blank Space ---- Cepheid Disclaimer The Cepheid Xpert Xpress CoV-2/Flu/RSV Plus has Cepheid Disclaimer not been FDA cleared or approved; this test has Cepheid Disclaimer been authorized by FDA under an EUA for use by Cepheid Disclaimer authorized laboratories; this test has been Cepheid Disclaimer authorized only for the simultaneous qualitative Cepheid Disclaimer detection and differentiation of nucleic acids from Cepheid Disclaimer SARS-CoV-2, influenza A, influenza B, and Cepheid Disclaimer respiratory syncytial virus (RSV), and not for any Cepheid Disclaimer other viruses or pathogens; and this test is only Cepheid Disclaimer authorized for the duration of the declaration that Cepheid Disclaimer circumstances exist justifying the authorization of Cepheid Disclaimer emergency use of in vitro diagnostic tests for Cepheid Disclaimer detection and/or diagnosis of COVID-19 under Cepheid Disclaimer Section 564(b)(1) of the Act, 21 U.S.C. 360bbb- Cepheid Disclaimer 3(b)(1), unless the authorization is terminated or Cepheid Disclaimer revoked sooner. PERFORMED BY: [place] [address] PATHOLOGIST MANUFACTURING PROCESS TECHNICIAN PEARL OLSON M.D. Normal [facility] Comment on above: Performed By: #### L YTES, CBC, LIPID, PP, BUN, CREAT #### [address] head/brain wo conon 01-06 CT head/brain wo con [facility] [place] [address] CT Scan Report Signed Patient: Morgan Latham MR#: [id number] : 1965 Acct:[id number] Age/Sex: 59 / M ADM Date: 01/06/25 Loc: Room: [address] [place] [address] Type: DIS IN Attending Dr: Jud Hutchison MD Copies to: MD Jud Gonzales MD Ordering Provider: Sabi Choudhury MD Date of Service: 01/06/25 CT/CT head/brain wo con: Altered mentation CT BRAIN WITHOUT CONTRAST: CLINICAL HISTORY: Altered mental status COMPARISON: None TECHNIQUE: Contiguous axial unenhanced images were obtained through the brain. This CT exam was performed using one or more following dose reduction techniques: Automated exposure control, adjustment of the mA and/or kV according to patient size, or use of iterative reconstruction technique. FINDINGS: There is no evidence of midline shift, intra or extra-axial fluid collection, hemorrhage or CT evidence of acute large vascular distribution stroke Right-sided enucleation and prosthesis noted.. Moderate sinus disease. The surrounding soft tissues are normal. CT/CT head/brain wo con IMPRESSION: NO ACUTE INTRACRANIAL ABNORMALITY. Impression dictated by: Robinson Browning M.D. 01/06/2025 12:07 PM Dictation Location: [place] [address] Transcribed By: [facility] 01/06/25 1207 Dictated By: Robinson Browning MD 01/06/25 1158 Signed By: 01/06/25 1207 Normal [facility] Calcium [Mass/volume] in Ser um or PlasmaOrdered By: Ayesha Hunter on 01-06-2025 Calcium [Mass/Vol] Calcium [Mass/volume ] in Serum or Plasma 8.6-10.3 [facility] Cannabinoids [Presence] in U rine by Screen methodOrdered By: Ayesha Hunter on 01-06-2025 Cannabinoids Screen Ql (U) Cannabinoids [Presence] in Urine by Screen method Negative [facility] Comment on above: These are unconfirme d results and should not be used for legal purposes. Drug Cut-Off Concentration: AMPH 1000 ng/mL KATIE 200 ng/mL KETAN 200 ng/mL COCM 300 ng/mL OP 300 ng/mL PCP 25 ng/mL THC 20 ng/mL Cannabinoids Screen Ql (U) Negative Negative [facility] Comment on above: These are unconfirme d results and should not be used for legal purposes. Drug Cut-Off Concentration: AMPH 1000 ng/mL KATIE 200 ng/mL KETAN 200 ng/mL COCM 300 ng/mL OP 300 ng/mL PCP 25 ng/mL THC 20 ng/mL Carbon dioxide, total [Moles /volume] in Serum or PlasmaOrdered By: Ayesha Hunter on 01-06-2025 CO2 [Moles/Vol] Carbon dioxide, tota l [Moles/volume] in Serum or Plasma 21.0-31.0 [facility] Cepheid COVID PCR Negativeon 01-06-2025 SARS-CoV-2 (COVID-19) RNA AMARJIT+probe Ql (Unsp spec) Negative Normal Negative [facility] Comment on above: Result Comment: This is a duplicate ciValue Xpert Xpress CoV-2/Flu/RSV Plus RNA by RT-PCR result to be used for statistical tracking purpose only. PERFORMED BY: [place] [address] PATHOLOGIST MANUFACTURING PROCESS TECHNICIAN PEARL OLSON M.D. Performed By: #### L YTES, CBC, LIPID, PP, BUN, CREAT #### [address] [address] [place] Chloride [Moles/volume] in S autumn or PlasmaOrdered By: Ayesha Hunter on 01-06-2025 Chloride [Moles/Vol] Chloride [Moles/vol ume] in Serum or Plasma 98-107 [facility] Color Auto (U)Ordered By: Panchito Hunter on 01-06-2025 Color (U) Color of Urine by [facility] Color of Urine by AutoOrdere d By: Ayesha Hunter on 01-06-2025 Color (U) Colorless Normal Yellow [facility] Comment on above: Order Comment: Name Collection Type:: Clean-Voided Midstream Performed By: #### L YTES, CBC, LIPID, PP, BUN, CREAT #### [address] [address] [facility] Complete Blood Count Auto Di ffon 01-06-2025 Basophils (Bld) [#/Vol] 0.0 10*3/uL Normal 0.0-0.2 [facility] Comment on above: Result Comment: PERF ORMED BY: [place] [address] PATHOLOGIST MANUFACTURING PROCESS TECHNICIAN PEARL OLSON M.D. Performed By: #### L YTES, CBC, LIPID, PP, BUN, CREAT #### [place] [address] [place] Basophils/100 WBC (Bld) 1.0 % Normal . [facility] Comment on above: Performed By: #### L YTES, CBC, LIPID, PP, BUN, CREAT #### [address] Eosinophils (Bld) [#/Vol] 0.1 10*3/uL Normal 0.0-0.45 [facility] Comment on above: Performed By: #### L YTES, CBC, LIPID, PP, BUN, CREAT #### [address] Eosinophils/100 WBC (Bld) 2.5 % Normal . [facility] Comment on above: Performed By: #### L YTES, CBC, LIPID, PP, BUN, CREAT #### [address] Erythrocyte distribution width (RBC) [Ratio] 16.6 % High 12.0-14.8 [facility] Comment on above: Performed By: #### L YTES, CBC, LIPID, PP, BUN, CREAT #### [address] Hematocrit (Bld) [Volume fraction] 29.5 % Low 38.8-50.0 [facility] Comment on above: Performed By: #### L YTES, CBC, LIPID, PP, BUN, CREAT #### [address] Hemoglobin (Bld) [Mass/Vol] 9.8 g/dL Low 13.0-17.0 [facility] Comment on above: Performed By: #### L YTES, CBC, LIPID, PP, BUN, CREAT #### [address] Lymphocytes (Bld) [#/Vol] 0.4 10*3/uL Low 1.00-4.8 [facility] Comment on above: Performed By: #### L YTES, CBC, LIPID, PP, BUN, CREAT #### [address] Lymphocytes/100 WBC (Bld) 8.2 % Normal . [facility] Comment on above: Performed By: #### L YTES, CBC, LIPID, PP, BUN, CREAT #### [address] MCH (RBC) [Entitic mass] 30.1 pg Normal 27.5-35.2 [facility] Comment on above: Performed By: #### L YTES, CBC, LIPID, PP, BUN, CREAT #### [address] MCV (RBC) [Entitic vol] 90.4 fL Normal 83.5-101 [facility] Comment on above: Performed By: #### L YTES, CBC, LIPID, PP, BUN, CREAT #### [address] Mean Corpuscular HGB Conc 33.2 g/dL Normal 32.5-35.6 [facility] Comment on above: Performed By: #### L YTES, CBC, LIPID, PP, BUN, CREAT #### [address] Monocytes (Bld) [#/Vol] 0.5 10*3/uL Normal 0.0-0.8 [facility] Comment on above: Performed By: #### L YTES, CBC, LIPID, PP, BUN, CREAT #### [address] Monocytes/100 WBC (Bld) 20.03 % High 0.00-20.00 [facility] Comment on above: Result Comment: For adults in ED, MDW > 20.0 may be associated with a higher risk of sepsis during the first 12 hrs of hospital admission Performed By: #### L YTES, CBC, LIPID, PP, BUN, CREAT #### [address] Monocytes/100 WBC (Bld) 11.9 % Normal . [facility] Comment on above: Performed By: #### L YTES, CBC, LIPID, PP, BUN, CREAT #### [address] Neutrophils (Bld) [#/Vol] 3.5 10*3/uL Normal 1.8-7.7 [facility] Comment on above: Performed By: #### L YTES, CBC, LIPID, PP, BUN, CREAT #### [address] Neutrophils/100 WBC (Bld) 76.4 % Normal . [facility] Comment on above: Performed By: #### L YTES, CBC, LIPID, PP, BUN, CREAT #### [address] NRBC% 0.1 /100{WBC} Normal 0-0.5 [facility] Comment on above: Performed By: #### L YTES, CBC, LIPID, PP, BUN, CREAT #### [address] Platelet mean volume (Bld) [Entitic vol] 8.0 fL Normal 6.6-10.1 [facility] Comment on above: Performed By: #### L YTES, CBC, LIPID, PP, BUN, CREAT #### [place] [address] [place] Platelets (Bld) [#/Vol] 346 10*3/uL Normal 150-450 [facility] Comment on above: Performed By: #### L YTES, CBC, LIPID, PP, BUN, CREAT #### [address] RBC (Bld) [#/Vol] 3.27 10*6/uL Low 3.90-5.60 [facility] Comment on above: Performed By: #### L YTES, CBC, LIPID, PP, BUN, CREAT #### [place] [address] [place] WBC (Bld) [#/Vol] 4.6 10*3/uL Normal 4.1-10.5 [facility] Comment on above: Performed By: #### L YTES, CBC, LIPID, PP, BUN, CREAT #### [place] [id number] [place] Comprehensive Metabolic Pane carlos 01-06-2025 Albumin [Mass/Vol] 4.0 g/dL Normal 3.5-5.7 [facility] Comment on above: Performed By: #### L YTES, CBC, LIPID, PP, BUN, CREAT #### [address] Albumin/Globulin [Mass ratio] 1.5 {ratio} Normal [facility] Comment on above: Performed By: #### L YTES, CBC, LIPID, PP, BUN, CREAT #### [address] ALP [Catalytic activity/Vol] 99 U/L Normal 34-104 [facility] Comment on above: Performed By: #### L YTES, CBC, LIPID, PP, BUN, CREAT #### [address] ALT [Catalytic activity/Vol] 19 U/L Normal 7-52 [facility] Comment on above: Performed By: #### L YTES, CBC, LIPID, PP, BUN, CREAT #### [address] Anion gap [Moles/Vol] 13.2 mmol/L Normal 6.0-15.0 [facility] Comment on above: Performed By: #### L YTES, CBC, LIPID, PP, BUN, CREAT #### [address] AST [Catalytic activity/Vol] 24 U/L Normal 13-39 [facility] Comment on above: Performed By: #### L YTES, CBC, LIPID, PP, BUN, CREAT #### [address] Bilirubin [Mass/Vol] 0.8 mg/dL Normal 0.3-1.0 [facility] Comment on above: Performed By: #### L YTES, CBC, LIPID, PP, BUN, CREAT #### [place] [address] [place] Calcium [Mass/Vol] 8.7 mg/dL Normal 8.6-10.3 [facility] Comment on above: Performed By: #### L YTES, CBC, LIPID, PP, BUN, CREAT #### [address] Chloride [Moles/Vol] 104 mmol/L Normal 98-107 [facility] Comment on above: Performed By: #### L YTES, CBC, LIPID, PP, BUN, CREAT #### [address] CO2 [Moles/Vol] 24.8 mmol/L Normal 21.0-31.0 [facility] Comment on above: Performed By: #### L YTES, CBC, LIPID, PP, BUN, CREAT #### [address] Creatinine [Mass/Vol] 1.15 mg/dL Normal 0.70-1.30 [facility] Comment on above: Performed By: #### L YTES, CBC, LIPID, PP, BUN, CREAT #### [address] Creatinine Clr Calc Pharmacy 75.42 Normal [facility] Comment on above: Result Comment: PERF ORMED BY: [place] [address] PATHOLOGIST MANUFACTURING PROCESS TECHNICIAN PEARL OLSON M.D. Performed By: #### L YTES, CBC, LIPID, PP, BUN, CREAT #### [address] GFR/1.73 sq M.predicted MDRD (S/P/Bld) [Vol rate/Area] mL/min/{1.73_m2} Normal [facility] Comment on above: Performed By: #### L YTES, CBC, LIPID, PP, BUN, CREAT #### [address] Globulin (S) [Mass/Vol] 2.6 g/dL Normal [facility] Comment on above: Performed By: #### L YTES, CBC, LIPID, PP, BUN, CREAT #### [facility] [address] Glucose [Mass/Vol] 115 mg/dL High 70-100 [facility] Comment on above: Result Comment: [place] Glucose Reference Range is dependent on time and content of last meal. Glucose of more than 200 mg/dL in a nonstressed, ambulatory subject supports the diagnosis of Diabetes Mellitus. ADA recommended reference range Performed By: #### L YTES, CBC, LIPID, PP, BUN, CREAT #### [facility] [address] Potassium [Moles/Vol] 4.0 mmol/L Normal 3.5-5.1 [facility] Comment on above: Performed By: #### L YTES, CBC, LIPID, PP, BUN, CREAT #### [address] Protein [Mass/Vol] 6.6 g/dL Normal 6.4-8.9 [facility] Comment on above: Performed By: #### L YTES, CBC, LIPID, PP, BUN, CREAT #### [place] [address] [place] Sodium [Moles/Vol] 138 mmol/L Normal 136-145 [facility] Comment on above: Performed By: #### L YTES, CBC, LIPID, PP, BUN, CREAT #### [place] [address] [place] Urea nitrogen [Mass/Vol] 18 mg/dL Normal 7-25 [facility] Comment on above: Performed By: #### L YTES, CBC, LIPID, PP, BUN, CREAT #### [place] [address] [place] Creatine kinase [Enzymatic a ctivity/volume] in Serum or PlasmaOrdered By: Ayesha Hunter on 01-06-2025 CK [Catalytic activity/Vol] Creatine kinase [Enzymatic activity/volume] in Serum or Plasma 30-223 [facility] CK [Catalytic activity/Vol] 116 U/L Normal 30-223 [facility] Comment on above: Performed By: #### L YTES, CBC, LIPID, PP, BUN, CREAT #### [address] Creatinine [Mass/volume] in Serum or PlasmaOrdered By: Ayesha Hunter on 01-06-2025 Creatinine [Mass/Vol] Creatinine [Mass/v olume] in Serum or Plasma 0.70-1.30 [facility] Drug Screen,Urineon 01-07-20 25 Amphetamine Screen,Urine Negative Normal Negative [facility] Comment on above: Performed By: #### L YTES, CBC, LIPID, PP, BUN, CREAT #### [address] Barbiturate Screen,Urine Negative Normal Negative [facility] Comment on above: Performed By: #### L YTES, CBC, LIPID, PP, BUN, CREAT #### [address] Benzodiazepines Screen,Urine Negative Normal Negative [facility] Comment on above: Performed By: #### L YTES, CBC, LIPID, PP, BUN, CREAT #### [address] Cannabinoid Screen,Urine Negative Normal Negative [facility] Comment on above: Result Comment: Thes e are unconfirmed results and should not be used for legal purposes. Drug Cut-Off Concentration: AMPH 1000 ng/mL KATIE 200 ng/mL KETAN 200 ng/mL COCM 300 ng/mL OP 300 ng/mL PCP 25 ng/mL THC 20 ng/mL PERFORMED BY: [place] [address] PATHOLOGIST MANUFACTURING PROCESS TECHNICIAN PEARL OLSON M.D. Performed By: #### L YTES, CBC, LIPID, PP, BUN, CREAT #### [address] Cocaine Screen,Urine Negative Normal Negative [facility] Comment on above: Performed By: #### L YTES, CBC, LIPID, PP, BUN, CREAT #### [address] Opiate Screen,Urine Positive High Negative [facility] Comment on above: Performed By: #### L YTES, CBC, LIPID, PP, BUN, CREAT #### [facility] [address] Phencyclidine Screen,Urine Negative Normal Negative [facility] Comment on above: Performed By: #### L YTES, CBC, LIPID, PP, BUN, CREAT #### [facility] [address] [place] [id number] [facility] ECG 12 lead ECGon 01-06-2025 ECG 12 lead ECG [facility] [place] [address] [place] [address] Electrocardiograph Report Signed Patient: Morgan Latham MR#: [id number] : 1965 Acct:[id number] Age/Sex: 59 / M ADM Date: 01/06/25 Loc: Room: [address] [place] [address] Type: ADM IN Attending Dr: Sabi Choudhury MD Ordering Provider: Ayesha Hunter Do Date of Service: 01/06/2511/27/953 ECG/ECG 12 lead ECG: Shortness of Breath/Dyspnea Copies to: Test Reason : Blood Pressure : 170/94 mmHG Vent. Rate : 80 BPM Atrial Rate : 80 BPM P-R Int : 144 ms QRS Dur : 128 ms QT Int : 432 ms P-R-T Axes : 50 60 19 degrees QTcB Int : 498 ms Sinus rhythm with premature supraventricular complexes Nonspecific intraventricular block Lateral infarct (cited on or before 09-Jul-2024) Abnormal ECG When compared with ECG of 19-Nov-2024 08:56, premature supraventricular complexes are now present Nonspecific intraventricular block has replaced Right bundle branch block Confirmed by Ayesha Hunter ([id number]) on 01/06/2025 3:44:03 PM Referred By: Electronically Signed By: Ayesha Hunter Transcribed By: MUS Signed By Ayesha Hunter Do 5 1544 Normal [facility] Eosinophils Auto (Bld) [#/Vo l]Ordered By: Ayesha Hunter on 01-06-2025 Eosinophils (Bld) [#/Vol] Automated eosinophil count 0.0-0.45 [facility] Eosinophils/100 WBC Auto (Bl d)Ordered By: Ayesha Hunter on 01-06-2025 Eosinophils/100 WBC (Bld) Automated eosinophil % . [facility] Erythrocyte distribution wid th Auto (RBC) [Ratio]Ordered By: Ayesha Hunter on 01-06-2025 Erythrocyte distribution width (RBC) [Ratio] Erythrocyte distribution width [Ratio] by Automated count High 12.0-14.8 [facility] Ethanol [Mass/volume] in Ser um or PlasmaOrdered By: Ayesha Hunter on 01-06-2025 Ethanol [Mass/Vol] Ethanol [Mass/volume ] in Serum or Plasma [facility] Comment on above: Test not performed Ethanol [Mass/Vol] mg/dL Normal [facility] Comment on above: Performed By: #### L YTES, CBC, LIPID, PP, BUN, CREAT #### [facility] [address] [place] [address] Ethyl Alcohol Profileon Percent Ethanol Not performed Normal [facility] Comment on above: Result Comment: PERF ORMED BY: [address] [place] [address] PATHOLOGIST MANUFACTURING PROCESS TECHNICIAN PEARL OLSON M.D. Performed By: #### L YTES, CBC, LIPID, PP, BUN, CREAT #### [facility] [address] [place] [address] Globulin Calc (S) [Mass/Vol] Ordered By: Ayesha Hunter on 01-06-2025 Globulin (S) [Mass/Vol] Serum globulin measurement by calculation (mass/volume) [facility] Glucose [Mass/volume] in Ser um or PlasmaOrdered By: Ayesha Hunter on 01-06-2025 Glucose [Mass/Vol] Glucose [Mass/volume ] in Serum or Plasma High 70-100 [facility] Comment on above: ADA recommended refe rence rangeRandom Glucose Reference Range is dependent on time and content of last meal. Glucose of more than 200 mg/dL in a nonstressed, ambulatory subject supports the diagnosis of Diabetes Mellitus. Glucose [Mass/volume] in Uri ne by Test stripOrdered By: Ayesha Hunter on 01-06-2025 Glucose Test strip (U) [Mass/Vol] Glucose [Mass/volume] in Urine by Test strip Normal [facility] Glucose Test strip (U) [Mass/Vol] Normal mg/dL Normal [facility] Hematocrit Auto (Bld) [Volum e fraction]Ordered By: Ayesha Hunter on 01-06-2025 Hematocrit (Bld) [Volume fraction] Hematocrit [Volume Fraction] of Blood by Automated count Low 38.8-50.0 [facility] Hemoglobin Test strip Ql (U) Ordered By: Ayesha Hunter on 01-06-2025 Hemoglobin Ql (U) Hemoglobin [Presence ] in Urine by Test strip Negative [facility] Hemoglobin Ql (U) Negative Negative [facility] Hemoglobin [Mass/volume] in BloodOrdered By: Ayesha Hunter on 01-06-2025 Hemoglobin (Bld) [Mass/Vol] Hemoglobin [Mass/volume] in Blood Low 13.0-17.0 [facility] Ketones Test strip Ql (U)Ord ered By: Ayesha Hunter on 01-06-2025 Ketones Ql (U) Ketones [Presence] i n Urine by Test strip Negative [facility] Ketones [Presence] in Urine by Test stripOrdered By: Ayesha Hunter on 01-06-2025 Ketones Ql (U) Negative Normal Negative [facility] Comment on above: Order Comment: Name Collection Type:: Clean-Voided Midstream Performed By: #### L YTES, CBC, LIPID, PP, BUN, CREAT #### [address] Laboratory - Microbiology an d Antimicrobial susceptibilityOrdered By: Ayesha Hunter on 01-06-2025 Bacteria identified Cx Nom (Bld) NO GROWTH 5 DAYS [facility] Lactate [Moles/volume] in Se rum or PlasmaOrdered By: Ayesha Hunter on 01-06-2025 Lactate [Moles/Vol] Lactate [Moles/volum e] in Serum or Plasma 0.5-1.9 [facility] Comment on above: Lactic Acid referenc e range has been updated to 0.5 1.9 mmol/L and the critical range of 2.0 or greater. Lactate [Moles/Vol] 0.7 mmol/L Normal 0.5-1.9 [facility] Comment on above: Lactic Acid referenc e range has been updated to 0.5 1.9 mmol/L and the critical range of 2.0 or greater. Result Comment: Lact ic Acid reference range has been updated to 0.5 ? 1.9 mmol/L and the critical range of 2.0 or greater. PERFORMED BY: [facility] [address] [place] [address] PATHOLOGIST MANUFACTURING PROCESS TECHNICIAN PEARL OLSON M.D. Performed By: #### L YTES, CBC, LIPID, PP, BUN, CREAT #### [facility] [address] Leukocyte esterase [Presence ] in Urine by Test stripOrdered By: Ayesha Hunter on 01-06-2025 Leukocyte esterase Test strip Ql (U) Leukocyte esterase [Presence] in Urine by Test strip Negative [facility] Leukocyte esterase Test strip Ql (U) Negative Normal Negative [facility] Comment on above: Order Comment: Name Collection Type:: Clean-Voided Midstream Performed By: #### L YTES, CBC, LIPID, PP, BUN, CREAT #### [facility] [address] Leukocytes [#/volume] correc liss for nucleated erythrocytes in Blood by Automated counOrdered By: Ayesha Hunter on 01-06-2025 WBC corrected for nucl RBC Auto (Bld) [#/Vol] Leukocytes [#/volume] corrected for nucleated erythrocytes in Blood by Automated coun 4.1-10.5 [facility] Lymphocytes Auto (Bld) [#/Vo l]Ordered By: Ayesha Hunter on 01-06-2025 Lymphocytes (Bld) [#/Vol] Lymphocytes [#/volume] in Blood by Automated count Low 1.00-4.8 [facility] Lymphocytes/100 WBC Auto (Bl d)Ordered By: Ayesha Hunter on 01-06-2025 Lymphocytes/100 WBC (Bld) Lymphocytes/100 leukocytes in Blood by Automated count . [facility] MCH Auto (RBC) [Entitic mass ]Ordered By: Ayesha Hunter on 01-06-2025 MCH (RBC) [Entitic mass] MCH [Entitic mass] by Automated count 27.5-35.2 [facility] MCHC Auto (RBC) [Mass/Vol]Or dered By: Ayesha Hunter on 01-06-2025 MCHC (RBC) [Mass/Vol] MCHC [Mass/volume] by Automated count 32.5-35.6 [facility] MCV Auto (RBC) [Entitic vol] Ordered By: Ayesha Hunter on 01-06-2025 MCV (RBC) [Entitic vol] MCV [Entitic vol ume] by Automated count 83.5-101 [facility] Monocyte distribution width [Entitic volume] in Blood by AutomatedOrdered By: Ayesha Hunter on 01-06-2025 Monocyte distribution width Auto (Bld) [Entitic vol] Monocyte distribution width [Entitic volume] in Blood by Automated High 0.00-20.00 [facility] Comment on above: For adults in ED, MD W > 20.0 may be associated with a higher risk of sepsis during the first 12 hrs of hospital admission Monocyte distribution width Auto (Bld) [Entitic vol] 20.03 % High 0.00-20.00 [facility] Comment on above: For adults in ED, MD W > 20.0 may be associated with a higher risk of sepsis during the first 12 hrs of hospital admission Monocytes Auto (Bld) [#/Vol] Ordered By: Ayesha Hunter on 01-06-2025 Monocytes (Bld) [#/Vol] Automated blood monocyte count 0.0-0.8 [facility] Monocytes/100 WBC Auto (Bld) Ordered By: Ayesha Hunter 01-06-2025 Monocytes/100 WBC (Bld) Automated monocyte % . [facility] Natriuretic peptide B [Mass/ Vol]Ordered By: Ayesha Hunter on 01-06-2025 Natriuretic peptide B (Bld) [Mass/Vol] BNP ser/plas High 5-100 [facility] Neutrophils Auto (Bld) [#/Vo l]Ordered By: Ayesha Hunter 01-06-2025 Neutrophils (Bld) [#/Vol] Neutrophils [#/volume] in Blood by Automated count 1.8-7.7 [facility] Neutrophils/100 WBC Auto (Bl d)Ordered By: Ayesha Hunter 01-06-2025 Neutrophils/100 WBC (Bld) Automated neutrophil % . [facility] Nitrite Test strip Ql (U)Ord ered By: Ayesha Hunter on 01-06-2025 Nitrite Ql (U) Nitrite [Presence] i n Urine by Test strip Negative [facility] Nitrite Ql (U) Negative Negative [facility] No Panel InformationOrdered By: Ayesha Hunter on 01-06-2025 Estimated GFR (CKD-EPI) > 60.0 mL/Min [facility] Creatinine Clearance (Chem 75.42 [facility] Nucleated erythrocytes [Pres ence] in Blood by Automated countOrdered By: Ayesha Hunter on 01-06-2025 Nucleated RBC Auto Ql (Bld) Nucleated erythrocytes [Presence] in Blood by Automated count 0-0.5 [facility] Opiates [Presence] in Urine by Screen methodOrdered By: Ayesha Hunter on 01-06-2025 Opiates Screen Ql (U) Opiates [Presence] in Urine by Screen method High Negative [facility] Opiates Screen Ql (U) Positive High Negative [facility] Phencyclidine Screen Ql (U)O rdered By: Ayesha Hunter on 01-06-2025 Phencyclidine Ql (U) Phencyclidine [Pres ence] in Urine by Screen method Negative [facility] Phencyclidine Ql (U) Negative Negative [facility] Platelet mean volume Auto (B ld) [Entitic vol]Ordered By: Ayesha Hunter on 01-06-2025 Platelet mean volume (Bld) [Entitic vol] Platelet mean volume [Entitic volume] in Blood by Automated count 6.6-10.1 [facility] Platelets Auto (Bld) [#/Vol] Ordered By: Ayesha Hunter on 01-06-2025 Platelets (Bld) [#/Vol] Platelets [#/vol ume] in Blood by Automated count 150-450 [facility] Potassium [Moles/volume] in Serum or PlasmaOrdered By: Ayesha Hunter 01-06-2025 Potassium [Moles/Vol] Potassium [Moles/v olume] in Serum or Plasma 3.5-5.1 [facility] Protein Test strip (U) [Mass /Vol]Ordered By: Ayesha Hunter on 01-06-2025 Protein (U) [Mass/Vol] Protein [Mass/vol ume] in Urine by Test strip Negative [facility] Protein (U) [Mass/Vol] Negative Negative [facility] Protein [Mass/volume] in Ser um or PlasmaOrdered By: Ayesha Hunter on 01-06-2025 Protein [Mass/Vol] Protein [Mass/volume ] in Serum or Plasma 6.4-8.9 [facility] RBC Auto (Bld) [#/Vol]Ordere d By: Ayesha Hunter on 01-06-2025 RBC (Bld) [#/Vol] Erythrocytes [#/volu me] in Blood by Automated count Low 3.90-5.60 [facility] Respiratory specimen influen za A virus, influenza B virus, respiratory syncytical virOrdered By: Sabi Choudhury on 01-06-2025 SARS-CoV-2 (COVID-19) RNA AMARJIT+probe Ql (Unsp spec) Respiratory specimen influenza A virus, influenza B virus, respiratory syncytical vir [facility] SARS-CoV-2 (COVID-19) RNA AMARJIT+probe Ql (Unsp spec) [facility] Serum or plasma albumin/glob ulin mass ratioOrdered By: Ayesha Hunter on 01-06-2025 Albumin/Globulin [Mass ratio] Serum or plasma albumin/globulin mass ratio [facility] Serum or plasma anion gap de terminationOrdered By: Ayesha Hunter on 01-06-2025 Anion gap [Moles/Vol] Serum or plasma an ion gap determination 6.0-15.0 [facility] Serum or plasma ethanol jass urement (mass/volume)Ordered By: Ayesha Hunter on 01-06-2025 Ethanol [Mass/Vol] TNP [facility] Comment on above: Test not performed Sodium [Moles/volume] in Ser um or PlasmaOrdered By: Ayesha Hunter on 01-06-2025 Sodium [Moles/Vol] Sodium [Moles/volume ] in Serum or Plasma 136-145 [facility] Specific gravity Test strip (U) [Rel density]Ordered By: Ayesha Hunter on 01-06-2025 Specific gravity (U) [Rel density] Specific gravity of Urine by Test strip 1.001-1.03 0 [facility] Specific gravity (U) [Rel density] 1.008 1.001-1.03 0 [facility] Troponin I High Sensitivityo n 01-06-2025 Troponin I High Sensitivity 86 Off scale high 0-20 [facility] Comment on above: Result Comment: Crit ical Result : Called to and read back by: DEAN BRYAN at: 01/06/2025 13:28:33 by:[email or web address] The Troponin units of report have been changed to meet the Chest Pain Accreditation requirement, element EC5.M1l2. Troponin units are changed from pg/ml to ng/L. Also, the decimal is removed and results are in whole numbers. PERFORMED BY: [place] [address] PATHOLOGIST MANUFACTURING PROCESS TECHNICIAN PEARL OLSON M.D. Performed By: #### L YTES, CBC, LIPID, PP, BUN, CREAT #### [address] Troponin I High Sensitivity 58 Off scale high 0-20 [facility] Comment on above: Result Comment: Crit ical Result : Called to and read back by: RAMESH DAVIES at: 01/06/2025 11:18:34 by:[email or web address] The Troponin units of report have been changed to meet the Chest Pain Accreditation requirement, element EC5.M1l2. Troponin units are changed from pg/ml to ng/L. Also, the decimal is removed and results are in whole numbers. PERFORMED BY: [address] [place] [address] PATHOLOGIST MANUFACTURING PROCESS TECHNICIAN PEARL OLSON M.D. Performed By: #### L YTES, CBC, LIPID, PP, BUN, CREAT #### [facility] [address] [place], [place] [id number] [facility] Troponin I.cardiac [Mass/vol ume] in Serum or Plasma by Detection limit <= 0.01 ng/Ordered By: Sabi Choudhury on 01-06-2025 Troponin I.cardiac DL <= 0.01 ng/mL [Mass/Vol] Troponin I.cardiac [Mass/volume] in Serum or Plasma by Detection limit <= 0.01 ng/ Critically high 0-20 [facility] Comment on above: Critical Result : Ca lled to and read back by: EDAN BRYAN at: 01/06/2025 13:28:33 by:[email or web address] Troponin units of report have been changed to meet the Chest Pain Accreditation requirement, element EC5.M1l2. Troponin units are changed from pg/ml to ng/L. Also, the decimal is removed and results are in whole numbers. Troponin I.cardiac [Mass/vol ume] in Serum or Plasma by Detection limit <= 0.01 ng/mLOrdered By: Sabi Choudhury on 01-06-2025 Troponin I.cardiac DL <= 0.01 ng/mL [Mass/Vol] 86 ng/L Critically high 0-20 [facility] Comment on above: Critical Result : Ca lled to and read back by: DEAN BRYAN at: 01/06/2025 13:28:33 by:[email or web address] Troponin units of report have been changed to meet the Chest Pain Accreditation requirement, element EC5.M1l2. Troponin units are changed from pg/ml to ng/L. Also, the decimal is removed and results are in whole numbers. Urea nitrogen [Mass/volume] in Serum or PlasmaOrdered By: Ayesha Hunter on 01-06-2025 Urea nitrogen [Mass/Vol] Urea nitrogen [Mass/volume] in Serum or Plasma 02-26 [facility] Urinalysison 01-06-2025 Bilirubin,Urine Negative Normal Negative [facility] Comment on above: Order Comment: Name Collection Type:: Clean-Voided Midstream Performed By: #### L YTES, CBC, LIPID, PP, BUN, CREAT #### [facility] [address] Glucose Ql (U) Normal Normal Normal [facility] Comment on above: Order Comment: Name Collection Type:: Clean-Voided Midstream Performed By: #### L YTES, CBC, LIPID, PP, BUN, CREAT #### [facility] [address] Nitrite,Urine Negative Normal Negative [facility] Comment on above: Order Comment: Name Collection Type:: Clean-Voided Midstream Performed By: #### L YTES, CBC, LIPID, PP, BUN, CREAT #### [address] Occult Blood,Urine Negative Normal Negative [facility] Comment on above: Order Comment: Name Collection Type:: Clean-Voided Midstream Result Comment: PERF ORMED BY: [place] [address] PATHOLOGIST MANUFACTURING PROCESS TECHNICIAN PEARL OLSON M.D. Performed By: #### L YTES, CBC, LIPID, PP, BUN, CREAT #### [address] Protein,Urine Negative Normal Negative [facility] Comment on above: Order Comment: Name Collection Type:: Clean-Voided Midstream Performed By: #### L YTES, CBC, LIPID, PP, BUN, CREAT #### [address] Specificy [place],Urine 1.008 Normal 1.00 1-1.03 0 [facility] Comment on above: Order Comment: Name Collection Type:: Clean-Voided Midstream Performed By: #### L YTES, CBC, LIPID, PP, BUN, CREAT #### [address] Urobilinogen,Urine Normal Normal Normal [facility] Comment on above: Order Comment: Name Collection Type:: Clean-Voided Midstream Performed By: #### L YTES, CBC, LIPID, PP, BUN, CREAT #### [address] Urobilinogen Test strip (U) [Mass/Vol]Ordered By: Ayesha Hunter on 01-06-2025 Urobilinogen (U) [Mass/Vol] Urobilinogen [Mass/volume] in Urine by Test strip Normal [facility] Urobilinogen (U) [Mass/Vol] Normal mg/dL Normal [facility] WBC Auto (Bld) [#/Vol]Ordere d By: Ayesha Hunter on 01-06-2025 WBC (Bld) [#/Vol] Leukocytes [#/volume ] in Blood by Automated count 4.1-10.5 [facility] X-ray reportOrdered By: Brooks Gilbert on 01-06-2025 Study report [facility] [address] [address] [place] [address] XRay Report Signed Patient: Morgan [place] MR#: [id number] : 1965 Acct:[id number] Age/Sex: 59 / M ADM Date: 5 Loc: ER Room: Type: [facility] ER Attending Dr: Copies to: Ayesha Hunter Do~ Ordering Provider: Ayesha Hunter Do Date of Service: 01/06/25 XR/XR chest 1V portable: Shortness of Breath/Dyspnea XR chest 1V portable 01/06/2025 9:55 AM SIGNS AND SYMPTOMS: ^Shortness of Breath/Dyspnea PROTOCOL: Frontal radiograph of the chest COMPARISON: 11/18/2024 FINDINGS: The trachea is midline. Sternotomy wires overlie the mediastinum. The heart and mediastinal structures are within normal limits. Interstitial prominence and perihilar vascular prominence is redemonstrated suspicious for volume overload. The bony thorax is intact. There is shoulder arthroplasty on the left. XR/XR chest 1V portable IMPRESSION: Interstitial prominence and perihilar vascular prominence is redemonstrated suspicious for volume overload. Impression dictated by: Brooks Gilbert M.D. 01/06/2025 11:00 AM Dictation Location: [place] [address] Transcribed By: [facility] 01/06/25 1100 Dictated By: Brooks Gilbert II, MD 01/06/25 1054 Signed By: 01/06/25 1100 [facility] Work Phone: XR chest 1V portableon 01-06 XR chest 1V portable [facility] [address] [address] [place] [address] XRay Report Signed Patient: Morgan L[place] MR#: [id number] : 1965 Acct:[id number] Age/Sex: 59 / M ADM Date: 01/06/25 Loc: Room: [address] [place] [address] Type: DIS IN Attending Dr: Jud Hutchison MD Copies to: Do Jud Billings MD Ordering Provider: Ayesha Hunter Do Date of Service: 01/06/25 XR/XR chest 1V portable: Shortness of Breath/Dyspnea XR chest 1V portable 01/06/2025 9:55 AM SIGNS AND SYMPTOMS: Shortness of Breath/Dyspnea PROTOCOL: Frontal radiograph of the chest COMPARISON: 11/18/2024 FINDINGS: The trachea is midline. Sternotomy wires overlie the mediastinum. The heart and mediastinal structures are within normal limits. Interstitial prominence and perihilar vascular prominence is redemonstrated suspicious for volume overload. The bony thorax is intact. There is shoulder arthroplasty on the left. XR/XR chest 1V portable IMPRESSION: Interstitial prominence and perihilar vascular prominence is redemonstrated suspicious for volume overload. Impression dictated by: Brooks Gilbert M.D. 01/06/2025 11:00 AM Dictation Location: [place] [address] Transcribed By: [facility] 01/06/25 1100 Dictated By: Brooks Gilbert II, MD 01/06/25 1054 Signed By: 01/06/25 1100 Normal [facility] pH Test strip (U)Ordered By: Ayesha Hunter on 01-06-2025 pH (U) pH of Urine by Test strip 5.0-9.0 [facility] pH of Urine by Test stripOrd ered By: Ayesha Hunter on 01-06-2025 pH (U) 5.5 [pH] Normal 5.0-9.0 [facility] Comment on above: Order Comment: Name Collection Type:: Clean-Voided Midstream Performed By: #### L YTES, CBC, LIPID, PP, BUN, CREAT #### [facility] [address] [place] [address] CULTURE, AEROBIC AND ANAEROB IC W/GRAM STAINon 12-15-2024 Bacteria identified Cx Nom (Unsp spec) SEE NOTE Abnormal [facility] Comment on above: Result Comment: CULTURE, AEROBIC BACTERIA Micro Number: [id number] Test Status: Final Specimen Source: L max sinus Specimen Quality: Adequate Result: Moderate growth of Staphylococcus aureus Negative for inducible clindamycin resistance. S.aureus INT VIJAY CIPROFLOXACIN R >=8 CLINDAMYCIN S <=0.25 ERYTHROMYCIN R >=8 GENTAMICIN S <=0.5 LEVOFLOXACIN R >=8 OXACILLIN S 0.5 1 TETRACYCLINE S <=1 TRIMETHOPRIM/SULFA S <=10 VANCOMYCIN S 1 S = Susceptible I = Intermediate R = Resistant NS = Not susceptible SDD = Susceptible Dose Dependent * = Not Tested NR = Not Reported NN = See Therapy Comments THERAPY COMMENTS Note 1: Oxacillin susceptible staphylococci are susceptible to other penicillinase-stable penicillins (e.g., methicillin, nafcillin), beta- lactam/beta-lactamase inhibitor combinations, and cephems with staphylococcal indications, including cefazolin. Performed By: #### 4 446 #### [facility] [address], [address] [place] [address] History Tutor: Bear Chaparro MD CULTURE, ANAEROBIC BACTERIA W/GRAM STAIN SEE NOTE Normal [facility] Comment on above: Result Comment: CULTURE, ANAEROBIC BACTERIA W/GRAM STAIN Micro Number: [id number] Test Status: Final Specimen Source: L max sinus Specimen Quality: Adequate Gram Stain: Few White blood cells seen No organisms seen Result: No anaerobes isolated. Performed By: #### 4 446 #### [facility] [address], [address] [place] [address] History Tutor: Bear Chaparro MD [facility] CULTURE, AEROBIC AND A NAEROBIC W/GRAM STAINon 12-15-2024 Bacteria identified Aer cx Nom (Unsp spec) SEE NOTE Abnormal [facility] Comment on above: CULTURE, AEROBIC BACTERIA Micro Number: [id number] Test Status: Final Specimen Source: L max sinus Specimen Quality: Adequate Result: Moderate growth of Staphylococcus aureus Negative for inducible clindamycin resistance. S.aureus INT VIJAY CIPROFLOXACIN R >=8 CLINDAMYCIN S <=0.25 ERYTHROMYCIN R >=8 GENTAMICIN S <=0.5 LEVOFLOXACIN R >=8 OXACILLIN S 0.5 1 TETRACYCLINE S <=1 TRIMETHOPRIM/SULFA S <=10 VANCOMYCIN S 1 S = Susceptible I = Intermediate R = Resistant NS = Not susceptible SDD = Susceptible Dose Dependent * = Not Tested NR = Not Reported NN = See Therapy Comments THERAPY COMMENTS Note 1: Oxacillin susceptible staphylococci are susceptible to other penicillinase-stable penicillins (e.g., methicillin, nafcillin), beta- lactam/beta-lactamase inhibitor combinations, and cephems with staphylococcal indications, including cefazolin. Bacteria identified Anaer cx Nom (Unsp spec) SEE NOTE [facility] Comment on above: CULTURE, ANAEROBIC BACTERIA W/GRAM STAIN Micro Number: [id number] Test Status: Final Specimen Source: L max sinus Specimen Quality: Adequate Gram Stain: Few White blood cells seen No organisms seen Result: No anaerobes isolated. Interpretation and review of laboratory results Abnormal [facility] Alanine aminotransferase [En zymatic activity/volume] in Serum or PlasmaOrdered By: Conchita Ivy on 11-20-2024 ALT [Catalytic activity/Vol] Alanine aminotransferase [Enzymatic activity/volume] in Serum or Plasma [facility] ALT [Catalytic activity/Vol] 8 U/L Normal [facility] Comment on above: Performed By: #### L YTES, CBC, LIPID, PP, BUN, CREAT #### [address] Albumin [Mass/volume] in Ser um or Plasma by Bromocresol green (BCG) dye binding methoOrdered By: Conchita Ivy on 11-20-2024 Albumin BCG dye [Mass/Vol] Albumin [Mass/volume] in Serum or Plasma by Bromocresol green (BCG) dye binding metho 3.5-5.7 [facility] Albumin BCG dye [Mass/Vol] 4.0 g/dL 3.5-5.7 [facility] Alkaline phosphatase [Enzyma tic activity/volume] in Serum or PlasmaOrdered By: Conchita Ivy on 11-20-2024 ALP [Catalytic activity/Vol] Alkaline phosphatase [Enzymatic activity/volume] in Serum or Plasma 34-104 [facility] ALP [Catalytic activity/Vol] 70 U/L Normal 34-104 [facility] [facility] Comment on above: Performed By: #### L YTES, CBC, LIPID, PP, BUN, CREAT #### [facility] [address] [place] [address] [place] Anisocytosis LM Ql (Bld)Orde red By: Conchita Ivy on 11-20-2024 Anisocytosis Ql (Bld) Anisocytosis [Pres ence] in Blood by Light microscopy [facility] Anisocytosis [Presence] in B lood by Light microscopyOrdered By: Conchita Ivy on 11-20-2024 Anisocytosis Ql (Bld) Slight Normal [facility] Comment on above: Performed By: #### L YTES, CBC, LIPID, PP, BUN, CREAT #### [facility] [address] [place] [address] Aspartate aminotransferase [ Enzymatic activity/volume] in Serum or PlasmaOrdered By: Conchita Ivy on 11-20-2024 AST [Catalytic activity/Vol] Aspartate aminotransferase [Enzymatic activity/volume] in Serum or Plasma Low 13-39 [facility] AST [Catalytic activity/Vol] 12 U/L Low 13-39 [facility] Comment on above: Performed By: #### L YTES, CBC, LIPID, PP, BUN, CREAT #### [facility] [address] [place] [address] Basophils Auto (Bld) [#/Vol] Ordered By: Conchita Ivy on 11-20-2024 Basophils (Bld) [#/Vol] Automated basophil count [facility] Basophils (Bld) [#/Vol] N/A [facility] Basophils/100 WBC Auto (Bld) Ordered By: Conchita Ivy on 11-20-2024 Basophils/100 WBC (Bld) Automated basophil % [facility] Basophils/100 WBC (Bld) N/A [facility] Basophils/100 WBC Manual cnt (Bld)Ordered By: Conchita Ivy on 11-20-2024 Basophils/100 WBC (Bld) Basophils/100 le ukocytes in Blood by Manual count 0-2 [facility] Basophils/100 leukocytes in Blood by Manual countOrdered By: Conchita Ivy on 11-20-2024 Basophils/100 WBC (Bld) 1 % Normal 0-2 [facility] Comment on above: Performed By: #### L YTES, CBC, LIPID, PP, BUN, CREAT #### [facility] [address] Bilirubin.total [Mass/volume ] in Serum or PlasmaOrdered By: Conchita Ivy on 11-20-2024 Bilirubin [Mass/Vol] Bilirubin.total [Mass/volume] in Serum or Plasma 0.3-1.0 [facility] Bilirubin [Mass/Vol] 0.3 mg/dL Normal 0.3-1.0 [facility] Comment on above: Performed By: #### L YTES, CBC, LIPID, PP, BUN, CREAT #### [facility] [address] Calcium [Mass/volume] in Ser um or PlasmaOrdered By: Conchita Ivy on 11-20-2024 Calcium [Mass/Vol] Calcium [Mass/volume ] in Serum or Plasma 8.6-10.3 [facility] Calcium [Mass/Vol] 9.4 mg/dL Normal 8.6-10.3 [facility] Comment on above: Performed By: #### L YTES, CBC, LIPID, PP, BUN, CREAT #### [facility] [address] Carbon dioxide, total [Moles /volume] in Serum or PlasmaOrdered By: Conchita Ivy on 11-20-2024 CO2 [Moles/Vol] Carbon dioxide, tota l [Moles/volume] in Serum or Plasma 21.0-31.0 [facility] CO2 [Moles/Vol] 29.3 mmol/L Normal 21.0-31.0 [facility] Comment on above: Performed By: #### L YTES, CBC, LIPID, PP, BUN, CREAT #### [facility] [address] [place] [address] [place] Chloride [Moles/volume] in S autumn or PlasmaOrdered By: Conchita Ivy on 11-20-2024 Chloride [Moles/Vol] Chloride [Moles/vol ume] in Serum or Plasma 98-107 [facility] Chloride [Moles/Vol] 103 mmol/L Normal 98-107 [facility] Comment on above: Performed By: #### L YTES, CBC, LIPID, PP, BUN, CREAT #### [facility] [address] Comprehensive Metabolic Pane carlos 11-20-2024 Albumin [Mass/Vol] 4.0 g/dL Normal 3.5-5.7 [facility] Comment on above: Performed By: #### L YTES, CBC, LIPID, PP, BUN, CREAT #### [facility] [address] Creatinine Clr Calc Pharmacy 66.55 Normal [facility] Comment on above: Performed By: #### L YTES, CBC, LIPID, PP, BUN, CREAT #### [facility] [address] GFR/1.73 sq M.predicted MDRD (S/P/Bld) [Vol rate/Area] mL/min/{1.73_m2} Normal [facility] Comment on above: Performed By: #### L YTES, CBC, LIPID, PP, BUN, CREAT #### [address] Creatinine [Mass/volume] in Serum or PlasmaOrdered By: Conchita Ivy on 11-20-2024 Creatinine [Mass/Vol] Creatinine [Mass/v olume] in Serum or Plasma 0.70-1.30 [facility] Creatinine [Mass/Vol] 1.28 mg/dL Normal 0.70-1.30 [facility] Comment on above: Performed By: #### L YTES, CBC, LIPID, PP, BUN, CREAT #### [facility] [address] Diff and CBCon 11-20-2024 Giant Platelet Tally 1 /100{WBC} Normal [facility] Comment on above: Performed By: #### L YTES, CBC, LIPID, PP, BUN, CREAT #### [facility] [address] [place] [address] Mean Corpuscular HGB Conc 33.4 g/dL Normal 32.5-35.6 [facility] Comment on above: Performed By: #### L YTES, CBC, LIPID, PP, BUN, CREAT #### [address] Microcytosis Slight Normal [facility] Comment on above: Performed By: #### L YTES, CBC, LIPID, PP, BUN, CREAT #### [address] Nucleated Red Blood Cell 1 /100{WBC} High 0-0 [facility] Comment on above: Performed By: #### L YTES, CBC, LIPID, PP, BUN, CREAT #### [address] Ovalocytes Slight Normal [facility] Comment on above: Performed By: #### L YTES, CBC, LIPID, PP, BUN, CREAT #### [address] Platelet Estimate Normal Normal Normal [facility] Comment on above: Performed By: #### L YTES, CBC, LIPID, PP, BUN, CREAT #### [address] Platelet Morphology Normal Normal Normal [facility] Comment on above: Result Comment: PERF ORMED BY: [place] [address] PATHOLOGIST MANUFACTURING PROCESS TECHNICIAN TIARA TUBBS M.D. Performed By: #### L YTES, CBC, LIPID, PP, BUN, CREAT #### [address] Poikilocytosis Slight Normal [facility] Comment on above: Performed By: #### L YTES, CBC, LIPID, PP, BUN, CREAT #### [address] Reactive Lymphocytes 5 % Normal 0-12 [facility] Comment on above: Performed By: #### L YTES, CBC, LIPID, PP, BUN, CREAT #### [place] [address] Eosinophils Auto (Bld) [#/Vo l]Ordered By: Conchita Ivy on 11-20-2024 Eosinophils (Bld) [#/Vol] Automated eosinophil count [facility] Eosinophils (Bld) [#/Vol] N/A [facility] Eosinophils/100 WBC Auto (Bl d)Ordered By: Conchita Ivy on 11-20-2024 Eosinophils/100 WBC (Bld) Automated eosinophil % [facility] Eosinophils/100 WBC (Bld) N/A [facility] Eosinophils/100 WBC Manual c nt (Bld)Ordered By: Conchita Ivy on 11-20-2024 Eosinophils/100 WBC (Bld) Eosinophils/100 leukocytes in Blood by Manual count 1-3 [facility] Eosinophils/100 leukocytes i n Blood by Manual countOrdered By: Conchita Ivy on 11-20-2024 Eosinophils/100 WBC (Bld) 2 % Normal 1-3 [facility] Comment on above: Performed By: #### L YTES, CBC, LIPID, PP, BUN, CREAT #### [address] Erythrocyte distribution wid th Auto (RBC) [Ratio]Ordered By: Conchita Ivy on 11-20-2024 Erythrocyte distribution width (RBC) [Ratio] Erythrocyte distribution width [Ratio] by Automated count High 12.0-14.8 [facility] Erythrocyte distribution wid th [Ratio] by Automated countOrdered By: Conchita Ivy on 11-20-2024 Erythrocyte distribution width (RBC) [Ratio] 16.6 % High 12.0-14.8 [facility] Comment on above: Performed By: #### L YTES, CBC, LIPID, PP, BUN, CREAT #### [facility] [address] [place] [address] Erythrocyte morphology findi ng [Identifier] in BloodOrdered By: Conchita Ivy on 11-20-2024 RBC morphology finding Nom (Bld) RBC morphology [facility] RBC morphology finding Nom (Bld) N/A [facility] Erythrocytes [#/volume] in B lood by Automated countOrdered By: Conchita Ivy on 11-20-2024 RBC (Bld) [#/Vol] 3.85 10*6/uL Low 3.90-5.60 [facility] Comment on above: Performed By: #### L YTES, CBC, LIPID, PP, BUN, CREAT #### [facility] [address] Giant platelets/100 leukocyt es [Ratio] in Blood by Manual countOrdered By: Conchita Ivy on 11-20-2024 Giant platelets/100 WBC Manual cnt (Bld) [Ratio] Giant platelets/100 leukocytes [Ratio] in Blood by Manual count [facility] Giant platelets/100 WBC Manual cnt (Bld) [Ratio] 1 /100{WBC} [facility] Globulin Calc (S) [Mass/Vol] Ordered By: Conchita Ivy on 11-20-2024 Globulin (S) [Mass/Vol] Serum globulin measurement by calculation (mass/volume) [facility] Glucose [Mass/volume] in Ser um or PlasmaOrdered By: Conchita Ivy on 11-20-2024 Glucose [Mass/Vol] Glucose [Mass/volume ] in Serum or Plasma High 70-100 [facility] Comment on above: ADA recommended refe rence rangeRandom Glucose Reference Range is dependent on time and content of last meal. Glucose of more than 200 mg/dL in a nonstressed, ambulatory subject supports the diagnosis of Diabetes Mellitus. Glucose [Mass/Vol] 106 mg/dL High 70-100 [facility] Comment on above: ADA recommended refe rence rangeRandom Glucose Reference Range is dependent on time and content of last meal. Glucose of more than 200 mg/dL in a nonstressed, ambulatory subject supports the diagnosis of Diabetes Mellitus. Result Comment: [place] Glucose Reference Range is dependent on time and content of last meal. Glucose of more than 200 mg/dL in a nonstressed, ambulatory subject supports the diagnosis of Diabetes Mellitus. ADA recommended reference range Performed By: #### L YTES, CBC, LIPID, PP, BUN, CREAT #### [address] Hematocrit Auto (Bld) [Volum e fraction]Ordered By: Conchita Ivy on 11-20-2024 Hematocrit (Bld) [Volume fraction] Hematocrit [Volume Fraction] of Blood by Automated count Low 38.8-50.0 [facility] Hematocrit [Volume Fraction] of Blood by Automated countOrdered By: Conchita Ivy on 11-20-2024 Hematocrit (Bld) [Volume fraction] 34.8 % Low 38.8-50.0 [facility] Comment on above: Performed By: #### L YTES, CBC, LIPID, PP, BUN, CREAT #### [facility] [address] Hemoglobin [Mass/volume] in BloodOrdered By: Conchita Ivy on 11-20-2024 Hemoglobin (Bld) [Mass/Vol] Hemoglobin [Mass/volume] in Blood Low 13.0-17.0 [facility] Hemoglobin (Bld) [Mass/Vol] 11.6 g/dL Low 13.0-17.0 [facility] Comment on above: Performed By: #### L YTES, CBC, LIPID, PP, BUN, CREAT #### [facility] [address] [place] [address] Leukocytes [#/volume] correc liss for nucleated erythrocytes in Blood by Automated counOrdered By: Conchita Ivy on 11-20-2024 WBC corrected for nucl RBC Auto (Bld) [#/Vol] Leukocytes [#/volume] corrected for nucleated erythrocytes in Blood by Automated coun Low 4.1-10.5 [facility] WBC corrected for nucl RBC Auto (Bld) [#/Vol] 3.3 10*3/uL Low 4.1-10.5 [facility] Leukocytes [#/volume] in Blo od by Automated countOrdered By: Conchita Ivy on 11-20-2024 WBC (Bld) [#/Vol] 3.3 10*3/uL Low 4.1-10.5 [facility] Comment on above: Performed By: #### L YTES, CBC, LIPID, PP, BUN, CREAT #### [facility] [address] [place] [address] [place] Lymphocytes Auto (Bld) [#/Vo l]Ordered By: Conchita Ivy on 11-20-2024 Lymphocytes (Bld) [#/Vol] Lymphocytes [#/volume] in Blood by Automated count [facility] Lymphocytes (Bld) [#/Vol] N/A [facility] Lymphocytes/100 WBC Auto (Bl d)Ordered By: Conchita Ivy on 11-20-2024 Lymphocytes/100 WBC (Bld) Lymphocytes/100 leukocytes in Blood by Automated count [facility] Lymphocytes/100 WBC (Bld) N/A [facility] Lymphocytes/100 WBC Manual c nt (Bld)Ordered By: Conchita Ivy on 11-20-2024 Lymphocytes/100 WBC (Bld) Lymphocytes/100 leukocytes in Blood by Manual count [address] Lymphocytes/100 leukocytes i n Blood by Manual countOrdered By: Conchita Ivy on 11-20-2024 Lymphocytes/100 WBC (Bld) 47 % [address] Comment on above: Performed By: #### L YTES, CBC, LIPID, PP, BUN, CREAT #### [facility] [address] MCH Auto (RBC) [Entitic mass ]Ordered By: Conchita Ivy on 11-20-2024 MCH (RBC) [Entitic mass] MCH [Entitic mass] by Automated count 27.5-35.2 [facility] MCH [Entitic mass] by Automa liss countOrdered By: Conchita Ivy on 11-20-2024 MCH (RBC) [Entitic mass] 30.1 pg Normal 27.5-35.2 [facility] Comment on above: Performed By: #### L YTES, CBC, LIPID, PP, BUN, CREAT #### [facility] [address] MCHC Auto (RBC) [Mass/Vol]Or dered By: Conchita Ivy on 11-20-2024 MCHC (RBC) [Mass/Vol] MCHC [Mass/volume] by Automated count 32.5-35.6 [facility] MCHC (RBC) [Mass/Vol] 33.4 g/dL 32.5-35.6 [facility] MCV Auto (RBC) [Entitic vol] Ordered By: Conchita Ivy on 11-20-2024 MCV (RBC) [Entitic vol] MCV [Entitic vol ume] by Automated count 83.5-101 [facility] MCV [Entitic volume] by Auto mated countOrdered By: Conchita Ivy on 11-20-2024 MCV (RBC) [Entitic vol] 90.3 fL Normal 83.5-101 [facility] Comment on above: Performed By: #### L YTES, CBC, LIPID, PP, BUN, CREAT #### [facility] [address] Magnesium [Mass/volume] in S autumn or PlasmaOrdered By: Conchita Ivy on 11-20-2024 Magnesium [Mass/Vol] Magnesium [Mass/vol ume] in Serum or Plasma 1.9-2.7 [facility] Magnesium [Mass/Vol] 2.0 mg/dL Normal 1.9-2.7 [facility] Comment on above: Result Comment: PERF ORMED BY: [place] [address] PATHOLOGIST MANUFACTURING PROCESS TECHNICIAN TIARA TUBBS M.D. Performed By: #### L YTES, CBC, LIPID, PP, BUN, CREAT #### [facility] [address] Microcytes LM Ql (Bld)Ordere d By: Conchita Ivy on 11-20-2024 Microcytes Ql (Bld) Microcytes [Presence ] in Blood by Light microscopy [facility] Microcytes Ql (Bld) Slight [facility] Monocytes Auto (Bld) [#/Vol] Ordered By: Conchita Ivy on 11-20-2024 Monocytes (Bld) [#/Vol] Automated blood monocyte count [facility] Monocytes (Bld) [#/Vol] N/A [facility] Monocytes/100 WBC Auto (Bld) Ordered By: Conchita Ivy on 11-20-2024 Monocytes/100 WBC (Bld) Automated monocyte % [facility] Monocytes/100 WBC (Bld) N/A [facility] Monocytes/100 WBC Manual cnt (Bld)Ordered By: Conchita Iyv on 11-20-2024 Monocytes/100 WBC (Bld) Monocytes/100 le ukocytes in Blood by Manual count -11 [facility] Comment on above: RARE IMMATURE MONOCY TE Monocytes/100 leukocytes in Blood by Manual countOrdered By: Conchita Ivy on 11-20-2024 Monocytes/100 WBC (Bld) 9 % Normal 2-11 [facility] Comment on above: RARE IMMATURE MONOCY TE Result Comment: RARE IMMATURE MONOCYTE Performed By: #### L YTES, CBC, LIPID, PP, BUN, CREAT #### [facility] [address] Neutrophils Auto (Bld) [#/Vo l]Ordered By: Conchita Ivy on 11-20-2024 Neutrophils (Bld) [#/Vol] Neutrophils [#/volume] in Blood by Automated count [facility] Neutrophils (Bld) [#/Vol] N/A [facility] Neutrophils/100 WBC Auto (Bl d)Ordered By: Conchita Ivy on 11-20-2024 Neutrophils/100 WBC (Bld) Automated neutrophil % [facility] Neutrophils/100 WBC (Bld) N/A [facility] No Panel InformationOrdered By: Conchita Ivy on 11-20-2024 Estimated GFR (CKD-EPI) > 60.0 mL/Min [facility] Creatinine Clearance (Chem 66.55 [facility] Nucleated RBC/100 WBC Manual cnt (Bld) [Ratio]Ordered By: Conchita Ivy on 11-20-2024 Nucleated RBC/100 WBC (Bld) [Ratio] Nucleated erythrocytes/100 leukocytes [Ratio] in Blood by Manual count High 0-0 [facility] Nucleated RBC/100 WBC (Bld) [Ratio] 1 /100{WBC} High 0-0 [facility] Nucleated erythrocytes [Pres ence] in Blood by Automated countOrdered By: Conchita Ivy on 11-20-2024 Nucleated RBC Auto Ql (Bld) Nucleated erythrocytes [Presence] in Blood by Automated count [facility] Nucleated RBC Auto Ql (Bld) N/A [facility] Ovalocytes [Presence] in Blo od by Light microscopyOrdered By: Conchita Ivy on 11-20-2024 Ovalocytes LM Ql (Bld) Ovalocyte detection [facility] Ovalocytes LM Ql (Bld) [facility] Platelet adequacy [Presence] in Blood by Light microscopyOrdered By: Conchita Ivy on 11-20-2024 Platelets LM Ql (Bld) Platelet adequacy [Presence] in Blood by Light microscopy Normal [facility] Platelets LM Ql (Bld) Normal Normal [facility] Platelet mean volume Auto (B ld) [Entitic vol]Ordered By: Conchita Ivy on 11-20-2024 Platelet mean volume (Bld) [Entitic vol] Platelet mean volume [Entitic volume] in Blood by Automated count 6.6-10.1 [facility] Platelet mean volume [Entiti c volume] in Blood by Automated countOrdered By: Conchita Ivy on 11-20-2024 Platelet mean volume (Bld) [Entitic vol] 8.0 fL Normal 6.6-10.1 [facility] Comment on above: Result Comment: PERF ORMED BY: [place] [address] PATHOLOGIST MANUFACTURING PROCESS TECHNICIAN TIARA TUBBS M.D. Performed By: #### L YTES, CBC, LIPID, PP, BUN, CREAT #### [facility] [address] Platelet morphology finding [Identifier] in BloodOrdered By: Conchita Ivy on 11-20-2024 Platelet morphology finding Nom (Bld) Platelet morphology finding [Identifier] in Blood Normal [facility] Platelet morphology finding Nom (Bld) Normal Normal [facility] Platelets Auto (Bld) [#/Vol] Ordered By: Conchita Ivy on 11-20-2024 Platelets (Bld) [#/Vol] Platelets [#/vol ume] in Blood by Automated count 150-450 [facility] Platelets [#/volume] in Bloo d by Automated countOrdered By: Conchita Ivy on 11-20-2024 Platelets (Bld) [#/Vol] 284 10*3/uL Normal 150-450 [facility] Comment on above: Performed By: #### L YTES, CBC, LIPID, PP, BUN, CREAT #### [facility] [address] Poikilocytosis [Presence] in Blood by Light microscopyOrdered By: Conchita Ivy on 11-20-2024 Poikilocytosis LM Ql (Bld) Poikilocytosis [Presence] in Blood by Light microscopy [facility] Poikilocytosis LM Ql (Bld) Slight [facility] Potassium [Moles/volume] in Serum or PlasmaOrdered By: Conchita Ivy on 11-20-2024 Potassium [Moles/Vol] Potassium [Moles/v olume] in Serum or Plasma 3.5-5.1 [facility] Potassium [Moles/Vol] 3.8 mmol/L Normal 3.5-5.1 [facility] Comment on above: Performed By: #### L YTES, CBC, LIPID, PP, BUN, CREAT #### [facility] [address] Protein [Mass/volume] in Ser um or PlasmaOrdered By: Conchita Ivy on 11-20-2024 Protein [Mass/Vol] Protein [Mass/volume ] in Serum or Plasma 6.4-8.9 [facility] Protein [Mass/Vol] 6.9 g/dL Normal 6.4-8.9 [facility] Comment on above: Performed By: #### L YTES, CBC, LIPID, PP, BUN, CREAT #### [facility] [address] RBC Auto (Bld) [#/Vol]Ordere d By: Conchita Ivy on 11-20-2024 RBC (Bld) [#/Vol] Erythrocytes [#/volu me] in Blood by Automated count Low 3.90-5.60 [facility] Segmented neutrophils/100 WB C Manual cnt (Bld)Ordered By: Conchita Ivy on 11-20-2024 Segmented neutrophils/100 WBC (Bld) Manual blood segmented neutrophils/100 leukocytes Low 50-70 [facility] Segmented neutrophils/100 le ukocytes in Blood by Manual countOrdered By: Conchita Ivy on 11-20-2024 Segmented neutrophils/100 WBC (Bld) 37 % Low 50-70 [facility] Comment on above: Performed By: #### L YTES, CBC, LIPID, PP, BUN, CREAT #### [facility] [address] [place] [address] Serum globulin measurement b y calculation (mass/volume)Ordered By: Conchita Ivy on 11-20-2024 Globulin (S) [Mass/Vol] 2.9 g/dL Normal [facility] Comment on above: Performed By: #### L YTES, CBC, LIPID, PP, BUN, CREAT #### [facility] [address] [place] [address] Serum or plasma albumin/glob ulin mass ratioOrdered By: Conchita Ivy on 11-20-2024 Albumin/Globulin [Mass ratio] Serum or plasma albumin/globulin mass ratio [facility] Albumin/Globulin [Mass ratio] 1.4 {ratio} Normal [facility] Comment on above: Performed By: #### L YTES, CBC, LIPID, PP, BUN, CREAT #### [address] Serum or plasma anion gap de terminationOrdered By: Conchita Ivy on 11-20-2024 Anion gap [Moles/Vol] Serum or plasma an ion gap determination 6.0-15.0 [facility] Anion gap [Moles/Vol] 11.5 mmol/L Normal 6.0-15.0 [facility] Comment on above: Performed By: #### L YTES, CBC, LIPID, PP, BUN, CREAT #### [address] Sodium [Moles/volume] in Ser um or PlasmaOrdered By: Conchita Ivy on 11-20-2024 Sodium [Moles/Vol] Sodium [Moles/volume ] in Serum or Plasma 136-145 [facility] Sodium [Moles/Vol] 140 mmol/L Normal 136-145 [facility] Comment on above: Performed By: #### L YTES, CBC, LIPID, PP, BUN, CREAT #### [facility] [address] [place] [address] [place] Urea nitrogen [Mass/volume] in Serum or PlasmaOrdered By: Conchita Ivy on 11-20-2024 Urea nitrogen [Mass/Vol] Urea nitrogen [Mass/volume] in Serum or Plasma 7- [facility] Urea nitrogen [Mass/Vol] 19 mg/dL Normal 7-25 [facility] Comment on above: Performed By: #### L YTES, CBC, LIPID, PP, BUN, CREAT #### [facility] [address] [place] [address] [place] Variant lymphocytes/100 WBC Manual cnt (Bld)Ordered By: Conchita Ivy on 11-20-2024 Variant lymphocytes/100 WBC (Bld) Variant lymphocytes/100 leukocytes in Blood by Manual count 0-12 [facility] Variant lymphocytes/100 WBC (Bld) 5 % 0-12 [facility] WBC Auto (Bld) [#/Vol]Ordere d By: Conchita Ivy on 11-20-2024 WBC (Bld) [#/Vol] Leukocytes [#/volume ] in Blood by Automated count Low 4.1-10.5 [facility] Comprehensive Metabolic Pane carlos 11-19-2024 Albumin [Mass/Vol] 4.1 g/dL Normal 3.5-5.7 [facility] Comment on above: Performed By: #### L YTES, CBC, LIPID, PP, BUN, CREAT #### [facility] [address] [place] [address] [place] Albumin/Globulin [Mass ratio] 1.5 {ratio} Normal [facility] Comment on above: Performed By: #### L YTES, CBC, LIPID, PP, BUN, CREAT #### [facility] [address] [place] [address] [place] ALP [Catalytic activity/Vol] 79 U/L Normal 34-104 [facility] Comment on above: Performed By: #### L YTES, CBC, LIPID, PP, BUN, CREAT #### [address] ALT [Catalytic activity/Vol] 9 U/L Normal 7-52 [facility] Comment on above: Performed By: #### L YTES, CBC, LIPID, PP, BUN, CREAT #### [address] Anion gap [Moles/Vol] 11.7 mmol/L Normal 6.0-15.0 [facility] Comment on above: Performed By: #### L YTES, CBC, LIPID, PP, BUN, CREAT #### [address] AST [Catalytic activity/Vol] 13 U/L Normal 13-39 [facility] Comment on above: Performed By: #### L YTES, CBC, LIPID, PP, BUN, CREAT #### [address] Bilirubin [Mass/Vol] 0.4 mg/dL Normal 0.3-1.0 [facility] Comment on above: Performed By: #### L YTES, CBC, LIPID, PP, BUN, CREAT #### [address] Calcium [Mass/Vol] 9.0 mg/dL Normal 8.6-10.3 [facility] Comment on above: Performed By: #### L YTES, CBC, LIPID, PP, BUN, CREAT #### [address] Chloride [Moles/Vol] 104 mmol/L Normal 98-107 [facility] [facility] Comment on above: Performed By: #### L YTES, CBC, LIPID, PP, BUN, CREAT #### [address] CO2 [Moles/Vol] 25.3 mmol/L Normal 21.0-31.0 [facility] Comment on above: Performed By: #### L YTES, CBC, LIPID, PP, BUN, CREAT #### [address] Creatinine [Mass/Vol] 1.22 mg/dL Normal 0.70-1.30 [facility] Comment on above: Performed By: #### L YTES, CBC, LIPID, PP, BUN, CREAT #### [address] Creatinine Clr Calc Pharmacy 71.28 Normal [facility] Comment on above: Performed By: #### L YTES, CBC, LIPID, PP, BUN, CREAT #### [address] GFR/1.73 sq M.predicted MDRD (S/P/Bld) [Vol rate/Area] mL/min/{1.73_m2} Normal [facility] Comment on above: Performed By: #### L YTES, CBC, LIPID, PP, BUN, CREAT #### [address] Globulin (S) [Mass/Vol] 2.8 g/dL Normal [facility] Comment on above: Performed By: #### L YTES, CBC, LIPID, PP, BUN, CREAT #### [address] Glucose [Mass/Vol] 110 mg/dL High 70-100 [facility] Comment on above: Result Comment: [place] Glucose Reference Range is dependent on time and content of last meal. Glucose of more than 200 mg/dL in a nonstressed, ambulatory subject supports the diagnosis of Diabetes Mellitus. ADA recommended reference range Performed By: #### L YTES, CBC, LIPID, PP, BUN, CREAT #### [address] Potassium [Moles/Vol] 4.0 mmol/L Normal 3.5-5.1 [facility] Comment on above: Performed By: #### L YTES, CBC, LIPID, PP, BUN, CREAT #### [address] [address] [place] Protein [Mass/Vol] 6.9 g/dL Normal 6.4-8.9 [facility] Comment on above: Performed By: #### L YTES, CBC, LIPID, PP, BUN, CREAT #### [facility] [address] Sodium [Moles/Vol] 137 mmol/L Normal 136-145 [facility] Comment on above: Performed By: #### L YTES, CBC, LIPID, PP, BUN, CREAT #### [facility] [address] Urea nitrogen [Mass/Vol] 13 mg/dL Normal 7-25 [facility] Comment on above: Performed By: #### L YTES, CBC, LIPID, PP, BUN, CREAT #### [address] ECG 12 lead ECGon 11-19-2024 ECG 12 lead ECG [facility] [place] [address] [place] [address] Electrocardiograph Report Signed Patient: Morgan Latham MR#: [id number] : 1965 Acct:[id number] Age/Sex: 59 / M ADM Date: 11/18/24 Loc: Room: [address] [place] [address] Type: ADM IN Attending Dr: Kermit Iraheta [...] PM Referred By: Electronically Signed By: EARNEST DYER MD Transcribed By: MUS Signed By Earnest Dyer MD 0 11/19/24 1225 Normal [facility] echo transthoracicon [facility] echo transthoracic [facility] [address] Echocardiogram Signed Patient: Morgan Latham MR#: [id number] : 1965 Acct:[id number] Age/Sex: 59 / M ADM Date: 11/18/24 Loc: Room: [address] [place] [address] Type: ADM IN Attending Dr: Kermit Iraheta MD Ordering Provider: Conchita Ivy DO, RES Date of Service: 11/18/24 [facility] echo transthoracic: SOB, CHF Copies to: MD [...] V1 max: 85.3 cm/sec (0.7-1.7m/s)MV E max john: 126.0 cm/sec(0.8-1.3m/s) MV A max john: 83.1 cm/sec(0.0-0.0m/s) MV E/A: 1.5 (<1.5) MMode/2D Measurements Calculations TAPSE: 1.8 cm FS: 27.3 % Ao root area: LVOT diam: 2.1 cm RV S John: EDV(Teich): 8.6 cm2 LVOT area: 3.5 cm2 [...] max: E/E' lat: 13.3 MV P1/2t max john: 0.23 sec 109.0 cm/sec E/E' med: 20.3 108.0 cm/sec MV max PG: MV P1/2t: 66.8 msec 56.0 mmHg MV V2 mean: MVA(P1/2t): 3.3 cm2 68.6 cm/sec MV dec slope: MV mean P.5 cm/sec2 2.0 mmHg MV V2 VTI: 42.9 cm MVA(VTI): 1.3 cm2 __ Ao V2 max: LV V1 max PG: MR max john: TV max P.0 mmHg 142.0 cm/sec 2.9 mmHg 374.0 cm/sec Ao max PG: LV V1 mean PG: MR max P.1 mmHg 1.0 mmHg 56.0 mmHg Ao mean PG: LV V1 mean: 4.0 mmHg 54.7 cm/sec Ao V2 mean: LV V1 VTI: 16.3 cm 94.5 cm/sec Ao V2 VTI: 26.6 cm GÉNESIS(I,D): 2.1 cm2 GÉNESIS(V,D): 2.1 cm2 __ TR max john: 167.0 cm/sec TR max P.2 mmHg RAP systole: 3.0 mmHg ___ Transcribed By: SCV Performed At: 11/19/24917 Signed By: Earnest Dyer MD 11/19/24 1052 Normal [facility] Magnesiumon 11-19-2024 Magnesium [Mass/Vol] 1.9 mg/dL Normal 1.9-2.7 [facility] Comment on above: Result Comment: PERF ORMED BY: [place] [address] PATHOLOGIST MANUFACTURING PROCESS TECHNICIAN TIARA TUBBS M.D. Performed By: #### L YTES, CBC, LIPID, PP, BUN, CREAT #### [address] Platelets Large [Presence] i n Blood by Light microscopyOrdered By: Conchita Ivy on 11-19-2024 Platelets Large LM Ql (Bld) Platelets Large [Presence] in Blood by Light microscopy [facility] Platelets Large LM Ql (Bld) Slight [facility] Polychromasia [Presence] in Blood by Light microscopyOrdered By: Conchita Ivy on 11-19-2024 Polychromasia LM Ql (Bld) Polychromasia [Presence] in Blood by Light microscopy [facility] Polychromasia LM Ql (Bld) Slight [facility] Scan and CBCon 11-19-2024 Anisocytosis Ql (Bld) Slight Normal [facility] Comment on above: Performed By: #### L YTES, CBC, LIPID, PP, BUN, CREAT #### [facility] [address] [place] [address] [place] Basophils (Bld) [#/Vol] 0.1 10*3/uL Normal 0.0-0.2 [facility] Comment on above: Performed By: #### L YTES, CBC, LIPID, PP, BUN, CREAT #### [facility] [address] [place] [address] [place] Basophils/100 WBC (Bld) 1.3 % Normal . [facility] Comment on above: Performed By: #### L YTES, CBC, LIPID, PP, BUN, CREAT #### [place] [address] [place] Eosinophils (Bld) [#/Vol] 0.3 10*3/uL Normal 0.0-0.45 [facility] Comment on above: Performed By: #### L YTES, CBC, LIPID, PP, BUN, CREAT #### [address] Eosinophils/100 WBC (Bld) 5.9 % Normal . [facility] Comment on above: Performed By: #### L YTES, CBC, LIPID, PP, BUN, CREAT #### [address] Erythrocyte distribution width (RBC) [Ratio] 16.4 % High 12.0-14.8 [facility] Comment on above: Performed By: #### L YTES, CBC, LIPID, PP, BUN, CREAT #### [address] Hematocrit (Bld) [Volume fraction] 34.7 % Low 38.8-50.0 [facility] Comment on above: Performed By: #### L YTES, CBC, LIPID, PP, BUN, CREAT #### [address] Hemoglobin (Bld) [Mass/Vol] 11.5 g/dL Low 13.0-17.0 [facility] Comment on above: Performed By: #### L YTES, CBC, LIPID, PP, BUN, CREAT #### [address] Large Platelets Slight Normal [facility] Comment on above: Result Comment: PERF ORMED BY: [place] [address] PATHOLOGIST MANUFACTURING PROCESS TECHNICIAN TIARA TUBBS M.D. Performed By: #### L YTES, CBC, LIPID, PP, BUN, CREAT #### [address] Lymphocytes (Bld) [#/Vol] 1.0 10*3/uL Normal 1.00-4.8 [facility] Comment on above: Performed By: #### L YTES, CBC, LIPID, PP, BUN, CREAT #### [address] Lymphocytes/100 WBC (Bld) 22.5 % Normal . [facility] Comment on above: Performed By: #### L YTES, CBC, LIPID, PP, BUN, CREAT #### [address] MCH (RBC) [Entitic mass] 30.0 pg Normal 27.5-35.2 [facility] Comment on above: Performed By: #### L YTES, CBC, LIPID, PP, BUN, CREAT #### [address] MCV (RBC) [Entitic vol] 90.3 fL Normal 83.5-101 [facility] Comment on above: Performed By: #### L YTES, CBC, LIPID, PP, BUN, CREAT #### [address] Mean Corpuscular HGB Conc 33.2 g/dL Normal 32.5-35.6 [facility] Comment on above: Performed By: #### L YTES, CBC, LIPID, PP, BUN, CREAT #### [address] Microcytosis Slight Normal [facility] Comment on above: Performed By: #### L YTES, CBC, LIPID, PP, BUN, CREAT #### [address] Monocytes (Bld) [#/Vol] 0.8 10*3/uL Normal 0.0-0.8 [facility] Comment on above: Performed By: #### L YTES, CBC, LIPID, PP, BUN, CREAT #### [address] Monocytes/100 WBC (Bld) 18.2 % Normal . [facility] Comment on above: Performed By: #### L YTES, CBC, LIPID, PP, BUN, CREAT #### [address] [place] [address] [place] Neutrophils (Bld) [#/Vol] 2.3 10*3/uL Normal 1.8-7.7 [facility] Comment on above: Performed By: #### L YTES, CBC, LIPID, PP, BUN, CREAT #### [address] Neutrophils/100 WBC (Bld) 52.1 % Normal . [facility] Comment on above: Performed By: #### L YTES, CBC, LIPID, PP, BUN, CREAT #### [address] NRBC% 0.1 /100{WBC} Normal 0-0.5 [facility] Comment on above: Performed By: #### L YTES, CBC, LIPID, PP, BUN, CREAT #### [address] Ovalocytes Slight Normal [facility] Comment on above: Performed By: #### L YTES, CBC, LIPID, PP, BUN, CREAT #### [address] Platelet Estimate Normal Normal Normal [facility] Comment on above: Performed By: #### L YTES, CBC, LIPID, PP, BUN, CREAT #### [address] Platelet mean volume (Bld) [Entitic vol] 8.0 fL Normal 6.6-10.1 [facility] Comment on above: Performed By: #### L YTES, CBC, LIPID, PP, BUN, CREAT #### [place] [address] [place] Platelets (Bld) [#/Vol] 268 10*3/uL Normal 150-450 [facility] Comment on above: Performed By: #### L YTES, CBC, LIPID, PP, BUN, CREAT #### [address] Poikilocytosis Slight Normal [facility] Comment on above: Performed By: #### L YTES, CBC, LIPID, PP, BUN, CREAT #### [address] Polychromasia Slight Normal [facility] Comment on above: Performed By: #### L YTES, CBC, LIPID, PP, BUN, CREAT #### [address] RBC (Bld) [#/Vol] 3.84 10*6/uL Low 3.90-5.60 [facility] Comment on above: Performed By: #### L YTES, CBC, LIPID, PP, BUN, CREAT #### [address] WBC (Bld) [#/Vol] 4.5 10*3/uL Normal 4.1-10.5 [facility] Comment on above: Performed By: #### L YTES, CBC, LIPID, PP, BUN, CREAT #### [address] BNP ser/plasOrdered By: Rene Ernandez on 11-18-2024 Natriuretic peptide B (Bld) [Mass/Vol] 2215.0 pg/mL High 5-100 [facility] Comment on above: Result Comment: PERF ORMED BY: [place] [address] PATHOLOGIST MANUFACTURING PROCESS TECHNICIAN TIARA TUBBS M.D. Performed By: #### L YTES, CBC, LIPID, PP, BUN, CREAT #### [address] Blood Cultureon 11-18-2024 Bacteria identified Cx Nom (Bld) NO GROWTH 5 DAYS PERFORMED BY: [place] [address] PATHOLOGIST MANUFACTURING PROCESS TECHNICIAN TIARA TUBBS M.D. Normal [facility] Comment on above: Performed By: #### L YTES, CBC, LIPID, PP, BUN, CREAT #### [address] Bacteria identified Cx Nom (Bld) NO GROWTH 5 DAYS PERFORMED BY: [facility] [address] [facility] [address] PATHOLOGIST MANUFACTURING PROCESS TECHNICIAN TIARA TUBBS M.D. Normal [facility] Comment on above: Performed By: #### L YTES, CBC, LIPID, PP, BUN, CREAT #### [facility] [address] COVID Cepheid NegativeOrdere d By: Rene Ernandez on 11-18-2024 SARS-CoV-2 (COVID-19) Ab IA Ql COVID Cepheid Negative [facility] Comment on above: This is a duplicate Cepheid Xpert Xpress CoV-2/Flu/RSV Plus RNA by RT-PCR result to be used for statistical tracking purpose only. SARS-CoV-2 (COVID-19) Ab IA Ql Negative Negative [facility] Comment on above: This is a duplicate Cepheid Xpert Xpress CoV-2/Flu/RSV Plus RNA by RT-PCR result to be used for statistical tracking purpose only. COVID-19 / Flu A/B / RSV PCR on 11-18-2024 SARS-CoV-2 (COVID-19) RNA AMARJIT+probe Ql (Unsp spec) COVID-19 Cepheid Result Negative for SARS-CoV-2 RNA by RT-PCR Flu A Cepheid Result Negative for Flu A RNA by RT-PCR Flu B Cepheid Result Negative for Flu B RNA by RT-PCR RSV Cepheid Result Negative for RSV RNA by RT-PCR COVID19 Blank Space ---- Reference: Negative COVID19 Blank Space ---- Cepheid Disclaimer The Cepheid Xpert Xpress CoV-2/Flu/RSV Plus has Cepheid Disclaimer not been FDA cleared or approved; this test has Cepheid Disclaimer been authorized by FDA under an EUA for use by Cepheid Disclaimer authorized laboratories; this test has been Cepheid Disclaimer authorized only for the simultaneous qualitative Cepheid Disclaimer detection and differentiation of nucleic acids from Cepheid Disclaimer SARS-CoV-2, influenza A, influenza B, and Cepheid Disclaimer respiratory syncytial virus (RSV), and not for any Cepheid Disclaimer other viruses or pathogens; and this test is only Cepheid Disclaimer authorized for the duration of the declaration that Cepheid Disclaimer circumstances exist justifying the authorization of Cepheid Disclaimer emergency use of in vitro diagnostic tests for Cepheid Disclaimer detection and/or diagnosis of COVID-19 under Cepheid Disclaimer Section 564(b)(1) of the Act, 21 U.S.C. 360bbb- Cepheid Disclaimer 3(b)(1), unless the authorization is terminated or Cepheid Disclaimer revoked sooner. PERFORMED BY: [place] [address] PATHOLOGIST MANUFACTURING PROCESS TECHNICIAN TIARA TUBBS M.D. Normal [facility] Comment on above: Performed By: #### L YTES, CBC, LIPID, PP, BUN, CREAT #### [address] [address] [facility] Cepheid COVID PCR Negativeon 11-18-2024 SARS-CoV-2 (COVID-19) RNA AMARJIT+probe Ql (Unsp spec) Negative Normal Negative [facility] Comment on above: Result Comment: This is a duplicate Cepheid Xpert Xpress CoV-2/Flu/RSV Plus RNA by RT-PCR result to be used for statistical tracking purpose only. PERFORMED BY: [place] [id number] PATHOLOGIST MANUFACTURING PROCESS TECHNICIAN TIARA TUBBS M.D. Performed By: #### L YTES, CBC, LIPID, PP, BUN, CREAT #### [address] [address] [facility] Complete Blood Count Auto Di ffon 11-18-2024 Basophils (Bld) [#/Vol] 0.0 10*3/uL Normal 0.0-0.2 [facility] Comment on above: Result Comment: PERF ORMED BY: [place] [address] PATHOLOGIST MANUFACTURING PROCESS TECHNICIAN TIARA TUBBS M.D. Performed By: #### L YTES, CBC, LIPID, PP, BUN, CREAT #### [address] Basophils/100 WBC (Bld) 0.8 % Normal . [facility] Comment on above: Performed By: #### L YTES, CBC, LIPID, PP, BUN, CREAT #### [address] Eosinophils (Bld) [#/Vol] 0.2 10*3/uL Normal 0.0-0.45 [facility] Comment on above: Performed By: #### L YTES, CBC, LIPID, PP, BUN, CREAT #### [address] Eosinophils/100 WBC (Bld) 3.2 % Normal . [facility] Comment on above: Performed By: #### L YTES, CBC, LIPID, PP, BUN, CREAT #### [address] Erythrocyte distribution width (RBC) [Ratio] 16.1 % High 12.0-14.8 [facility] Comment on above: Performed By: #### L YTES, CBC, LIPID, PP, BUN, CREAT #### [address] Hematocrit (Bld) [Volume fraction] 31.9 % Low 38.8-50.0 [facility] Comment on above: Performed By: #### L YTES, CBC, LIPID, PP, BUN, CREAT #### [address] Hemoglobin (Bld) [Mass/Vol] 10.7 g/dL Low 13.0-17.0 [facility] Comment on above: Performed By: #### L YTES, CBC, LIPID, PP, BUN, CREAT #### [address] Lymphocytes (Bld) [#/Vol] 0.6 10*3/uL Low 1.00-4.8 [facility] Comment on above: Performed By: #### L YTES, CBC, LIPID, PP, BUN, CREAT #### [address] Lymphocytes/100 WBC (Bld) 11.1 % Normal . [facility] Comment on above: Performed By: #### L YTES, CBC, LIPID, PP, BUN, CREAT #### [address] MCH (RBC) [Entitic mass] 30.5 pg Normal 27.5-35.2 [facility] Comment on above: Performed By: #### L YTES, CBC, LIPID, PP, BUN, CREAT #### [address] MCV (RBC) [Entitic vol] 90.9 fL Normal 83.5-101 [facility] Comment on above: Performed By: #### L YTES, CBC, LIPID, PP, BUN, CREAT #### [address] Mean Corpuscular HGB Conc 33.5 g/dL Normal 32.5-35.6 [facility] Comment on above: Performed By: #### L YTES, CBC, LIPID, PP, BUN, CREAT #### [address] Monocytes (Bld) [#/Vol] 0.7 10*3/uL Normal 0.0-0.8 [facility] Comment on above: Performed By: #### L YTES, CBC, LIPID, PP, BUN, CREAT #### [address] Monocytes/100 WBC (Bld) 23.46 % High 0.00-20.00 [facility] Comment on above: Result Comment: For adults in ED, MDW > 20.0 may be associated with a higher risk of sepsis during the first 12 hrs of hospital admission Performed By: #### L YTES, CBC, LIPID, PP, BUN, CREAT #### [address] Monocytes/100 WBC (Bld) 14.4 % Normal . [facility] Comment on above: Performed By: #### L YTES, CBC, LIPID, PP, BUN, CREAT #### [address] Neutrophils (Bld) [#/Vol] 3.6 10*3/uL Normal 1.8-7.7 [facility] Comment on above: Performed By: #### L YTES, CBC, LIPID, PP, BUN, CREAT #### [address] Neutrophils/100 WBC (Bld) 70.5 % Normal . [facility] Comment on above: Performed By: #### L YTES, CBC, LIPID, PP, BUN, CREAT #### [address] NRBC% 0.1 /100{WBC} Normal 0-0.5 [facility] Comment on above: Performed By: #### L YTES, CBC, LIPID, PP, BUN, CREAT #### [address] Platelet mean volume (Bld) [Entitic vol] 8.0 fL Normal 6.6-10.1 [facility] Comment on above: Performed By: #### L YTES, CBC, LIPID, PP, BUN, CREAT #### [address] Platelets (Bld) [#/Vol] 260 10*3/uL Normal 150-450 [facility] Comment on above: Performed By: #### L YTES, CBC, LIPID, PP, BUN, CREAT #### [address] RBC (Bld) [#/Vol] 3.51 10*6/uL Low 3.90-5.60 [facility] Comment on above: Performed By: #### L YTES, CBC, LIPID, PP, BUN, CREAT #### [address] WBC (Bld) [#/Vol] 5.1 10*3/uL Normal 4.1-10.5 [facility] Comment on above: Performed By: #### L YTES, CBC, LIPID, PP, BUN, CREAT #### [address] Comprehensive Metabolic Pane carlos 11-18-2024 Albumin [Mass/Vol] 3.9 g/dL Normal 3.5-5.7 [facility] Comment on above: Performed By: #### L YTES, CBC, LIPID, PP, BUN, CREAT #### [address] Albumin/Globulin [Mass ratio] 1.3 {ratio} Normal [facility] Comment on above: Performed By: #### L YTES, CBC, LIPID, PP, BUN, CREAT #### [address] ALP [Catalytic activity/Vol] 75 U/L Normal 34-104 [facility] Comment on above: Performed By: #### L YTES, CBC, LIPID, PP, BUN, CREAT #### [address] ALT [Catalytic activity/Vol] 9 U/L Normal 7-52 [facility] Comment on above: Performed By: #### L YTES, CBC, LIPID, PP, BUN, CREAT #### [address] Anion gap [Moles/Vol] 11.0 mmol/L Normal 6.0-15.0 [facility] Comment on above: Performed By: #### L YTES, CBC, LIPID, PP, BUN, CREAT #### [address] AST [Catalytic activity/Vol] 14 U/L Normal 13-39 [facility] Comment on above: Performed By: #### L YTES, CBC, LIPID, PP, BUN, CREAT #### [address] Bilirubin [Mass/Vol] 0.4 mg/dL Normal 0.3-1.0 [facility] Comment on above: Performed By: #### L YTES, CBC, LIPID, PP, BUN, CREAT #### [address] Calcium [Mass/Vol] 9.0 mg/dL Normal 8.6-10.3 [facility] Comment on above: Performed By: #### L YTES, CBC, LIPID, PP, BUN, CREAT #### [address] Chloride [Moles/Vol] 103 mmol/L Normal 98-107 [facility] Comment on above: Performed By: #### L YTES, CBC, LIPID, PP, BUN, CREAT #### [address] CO2 [Moles/Vol] 26.2 mmol/L Normal 21.0-31.0 [facility] Comment on above: Performed By: #### L YTES, CBC, LIPID, PP, BUN, CREAT #### [address] Creatinine [Mass/Vol] 1.30 mg/dL Normal 0.70-1.30 [facility] Comment on above: Performed By: #### L YTES, CBC, LIPID, PP, BUN, CREAT #### [address] Creatinine Clr Calc Pharmacy 67.06 Normal [facility] Comment on above: Result Comment: PERF ORMED BY: [place] [address] PATHOLOGIST MANUFACTURING PROCESS TECHNICIAN TIARA TUBBS M.D. Performed By: #### L YTES, CBC, LIPID, PP, BUN, CREAT #### [address] GFR/1.73 sq M.predicted MDRD (S/P/Bld) [Vol rate/Area] mL/min/{1.73_m2} Normal [facility] Comment on above: Performed By: #### L YTES, CBC, LIPID, PP, BUN, CREAT #### [address] Globulin (S) [Mass/Vol] 2.9 g/dL Normal [facility] Comment on above: Performed By: #### L YTES, CBC, LIPID, PP, BUN, CREAT #### [address] Glucose [Mass/Vol] 103 mg/dL High 70-100 [facility] Comment on above: Result Comment: [facility] Glucose Reference Range is dependent on time and content of last meal. Glucose of more than 200 mg/dL in a nonstressed, ambulatory subject supports the diagnosis of Diabetes Mellitus. ADA recommended reference range Performed By: #### L YTES, CBC, LIPID, PP, BUN, CREAT #### [address] Potassium [Moles/Vol] 4.2 mmol/L Normal 3.5-5.1 [facility] Comment on above: Performed By: #### L YTES, CBC, LIPID, PP, BUN, CREAT #### [address] Protein [Mass/Vol] 6.8 g/dL Normal 6.4-8.9 [facility] Comment on above: Performed By: #### L YTES, CBC, LIPID, PP, BUN, CREAT #### [address] Sodium [Moles/Vol] 136 mmol/L Normal 136-145 [facility] Comment on above: Performed By: #### L YTES, CBC, LIPID, PP, BUN, CREAT #### [facility] [address] [place] [address] [place] Urea nitrogen [Mass/Vol] 13 mg/dL Normal 02-26 [facility] Comment on above: Performed By: #### L YTES, CBC, LIPID, PP, BUN, CREAT #### [facility] [address] [place] [id number] [place] Creatine kinase [Enzymatic a ctivity/volume] in Serum or PlasmaOrdered By: Rene Ernandez on 11-18-2024 CK [Catalytic activity/Vol] Creatine kinase [Enzymatic activity/volume] in Serum or Plasma [facility] CK [Catalytic activity/Vol] 69 U/L Normal [facility] Comment on above: Performed By: #### L YTES, CBC, LIPID, PP, BUN, CREAT #### [facility] [address] [place] [id number] [facility] ECG 12 lead ECGon 11-18-2024 ECG 12 lead ECG [facility] [place] [address] [place] [address] Electrocardiograph Report Signed Patient: Morgan Latham MR#: [id number] : 1965 Acct:[id number] Age/Sex: 59 / M ADM Date: 11/18/24 Loc: Room: [address] [place] [address] Type: ADM IN Attending Dr: Kermit Iraheta MD Ordering Provider: Rene Ernandez MD Date of Service: 11/18/24 ECG/ECG 12 lead ECG: Chest Pain Copies to: Test Reason : Blood Pressure : 129/71 mmHG Vent. Rate : 80 BPM Atrial Rate : 80 BPM P-R Int : 140 ms QRS Dur : 126 ms QT Int : 420 ms P-R-T Axes : 69 193 23 degrees QTcB Int : 484 ms Normal sinus rhythm Indeterminate axis Right bundle branch block Lateral infarct (cited on or before 09-Jul-2024) Abnormal ECG When compared with ECG of 09-Jul-2024 07:59, Right bundle branch block is now present Criteria for Septal infarct are no longer present Questionable change in initial forces of Lateral leads Confirmed by RENE ERNANDEZ MD ([id number]) on 11/20/2024 1:49:50 AM Referred By: Electronically Signed By: RENE ERNANDEZ MD Transcribed By: MUS Signed By Rene Ernandez MD 11/20/24 0150 Normal [facility] INR in Platelet poor plasma by Coagulation assayOrdered By: Rene Ernandez on 11-18-2024 INR Coag (PPP) [Relative time] INR in Platelet poor plasma by Coagulation assay [facility] Comment on above: INR Therapeutic Rang e A) Pre- and Peroperative OAT started two weeks before surgery. NOT HIP SURGERY: 1.5 - 2.5 HIP SURGERY: 2 - 3B) Primary and secondary prevention of venous THROMBOSIS: 2 - 3C) Active venous thrombosis, pulmonary embolismand prevention of recurrent venous thrombosis: 2 - 3D) Prevention of arterial thromboembolismincluding patients with mechanical heart valves: 3 - 4.5 INR Coag (PPP) [Relative time] 1.1 {INR} Normal [facility] Comment on above: INR Therapeutic Rang e A) Pre- and Peroperative OAT started two weeks before surgery. NOT HIP SURGERY: 1.5 - 2.5 HIP SURGERY: 2 - 3B) Primary and secondary prevention of venous THROMBOSIS: 2 - 3C) Active venous thrombosis, pulmonary embolismand prevention of recurrent venous thrombosis: 2 - 3D) Prevention of arterial thromboembolismincluding patients with mechanical heart valves: 3 - 4.5 Result Comment: INR Therapeutic Range A) Pre- and Peroperative OAT started two weeks before surgery. NOT HIP SURGERY: 1.5 - 2.5 HIP SURGERY: 2 - 3 B) Primary and secondary prevention of venous THROMBOSIS: 2 - 3 C) Active venous thrombosis, pulmonary embolism and prevention of recurrent venous thrombosis: 2 - 3 D) Prevention of arterial thromboembolism including patients with mechanical heart valves: 3 - 4.5 Performed By: #### L YTES, CBC, LIPID, PP, BUN, CREAT #### [facility] [address] [place] [address] Laboratory - Microbiology an d Antimicrobial susceptibilityOrdered By: Rene Ernandez on 11-18-2024 Bacteria identified Cx Nom (Bld) NO GROWTH 5 DAYS [facility] Bacteria identified Cx Nom (Bld) NO GROWTH 5 DAYS [facility] Monocyte distribution width [Entitic volume] in Blood by AutomatedOrdered By: Rene Ernandez on 11-18-2024 Monocyte distribution width Auto (Bld) [Entitic vol] Monocyte distribution width [Entitic volume] in Blood by Automated High 0.00-20.00 [facility] Comment on above: For adults in ED, MD W > 20.0 may be associated with a higher risk of sepsis during the first 12 hrs of hospital admission Monocyte distribution width Auto (Bld) [Entitic vol] 23.46 % High 0.00-20.00 [facility] Comment on above: For adults in ED, MD W > 20.0 may be associated with a higher risk of sepsis during the first 12 hrs of hospital admission Natriuretic peptide B [Mass/ Vol]Ordered By: Rene Ernandez on 11-18-2024 Natriuretic peptide B (Bld) [Mass/Vol] BNP ser/plas High 5-100 [facility] Partial Thromboplastin Timeo n 11-18-2024 aPTT Coag (Bld) [Time] 31.5 s Normal 25.1-36.5 [facility] Comment on above: Result Comment: A he matocrit value greater than 55% may lead to inaccurate results in coagulation testing. Patients having hematocrit values >55% require a special collection tube for coagulation studies. Please contact the laboratory at [phone] for redraw instructions. PERFORMED BY: [place] [address] PATHOLOGIST MANUFACTURING PROCESS TECHNICIAN TIARA TUBBS M.D. Performed By: #### L YTES, CBC, LIPID, PP, BUN, CREAT #### [facility] [address] [place] [address] Prothrombin time (PT)Ordered By: Rene Ernandez on 11-18-2024 PT Coag (PPP) [Time] Prothrombin time (PT) 9.0- 12.9 [facility] Comment on above: A hematocrit value g reater than 55% may lead to inaccurate results in coagulation testing. Patients having hematocrit values >55% require a special collection tube for coagulation studies. Please contact the laboratory at [phone] for redraw instructions. PT Coag (PPP) [Time] 12.1 s Normal 9.0-12.9 [facility] Comment on above: A hematocrit value g reater than 55% may lead to inaccurate results in coagulation testing. Patients having hematocrit values >55% require a special collection tube for coagulation studies. Please contact the laboratory at [phone] for redraw instructions. Result Comment: A he matocrit value greater than 55% may lead to inaccurate results in coagulation testing. Patients having hematocrit values >55% require a special collection tube for coagulation studies. Please contact the laboratory at [phone] for redraw instructions. Performed By: #### L YTES, CBC, LIPID, PP, BUN, CREAT #### [address] Respiratory specimen influen za A virus, influenza B virus, respiratory syncytical virOrdered By: Rene Ernandez on 11-18-2024 SARS-CoV-2 (COVID-19) RNA AMARJIT+probe Ql (Unsp spec) Respiratory specimen influenza A virus, influenza B virus, respiratory syncytical vir [facility] SARS-CoV-2 (COVID-19) RNA AMARJIT+probe Ql (Unsp spec) [facility] Troponin I High Sensitivityo n 11-18-2024 Troponin I High Sensitivity 15 Normal 0-20 [facility] Comment on above: Result Comment: The Troponin units of report have been changed to meet the Chest Pain Accreditation requirement, element EC5.M1l2. Troponin units are changed from pg/ml to ng/L. Also, the decimal is removed and results are in whole numbers. PERFORMED BY: [place] [address] PATHOLOGIST MANUFACTURING PROCESS TECHNICIAN TIARA TUBBS M.D. Performed By: #### L YTES, CBC, LIPID, PP, BUN, CREAT #### [address] Troponin I High Sensitivity 14 Normal 0-20 [facility] Comment on above: Result Comment: The Troponin units of report have been changed to meet the Chest Pain Accreditation requirement, element EC5.M1l2. Troponin units are changed from pg/ml to ng/L. Also, the decimal is removed and results are in whole numbers. PERFORMED BY: [place] [address] PATHOLOGIST MANUFACTURING PROCESS TECHNICIAN TIARA TUBBS M.D. Performed By: #### L YTES, CBC, LIPID, PP, BUN, CREAT #### [facility] [address] Troponin I.cardiac [Mass/vol ume] in Serum or Plasma by Detection limit <= 0.01 ng/Ordered By: Sabi Choudhury on 11-18-2024 Troponin I.cardiac DL <= 0.01 ng/mL [Mass/Vol] Troponin I.cardiac [Mass/volume] in Serum or Plasma by Detection limit <= 0.01 ng/ 0-20 [facility] Comment on above: The Troponin units o f report have been changed to meet the Chest Pain Accreditation requirement, element EC5.M1l2. Troponin units are changed from pg/ml to ng/L. Also, the decimal is removed and results are in whole numbers. Troponin I.cardiac [Mass/vol ume] in Serum or Plasma by Detection limit <= 0.01 ng/mLOrdered By: Sabi Choudhury on 11-18-2024 Troponin I.cardiac DL <= 0.01 ng/mL [Mass/Vol] 15 ng/L [address] [place] [address] Comment on above: The Troponin units o f report have been changed to meet the Chest Pain Accreditation requirement, element EC5.M1l2. Troponin units are changed from pg/ml to ng/L. Also, the decimal is removed and results are in whole numbers. X-ray reportOrdered By: tSuart Browning on 11-18-2024 Study report [facility] [address] [id number] XRay Report Signed Patient: Morgan Latham MR#: [id number] : 1965 Acct:[id number] Age/Sex: 59 / M ADM Date: 5 Loc: ER Room: Type: PRE ER Attending Dr: Copies to: Rene Ernandez MD~ Ordering Provider: Rene Ernandez MD Date of Service: 11/18/24 XR/XR chest 1V portable: Chest Pain SINGLE VIEW CHEST CLINICAL HISTORY: Shortness of breath and chest pain COMPARISON: None FINDINGS: Sternotomy wires. Cardiomegaly. Mild central hilar disease. Increased markings both lung bases possibly related to interstitial edema or vascular congestion no effusion or pneumothorax. Left shoulder arthroplasty. XR/XR chest 1V portable IMPRESSION: CARDIOMEGALY WITH SMALL CENTRAL VASCULAR CONGESTION MILDLY PROMINENT INTERSTITIAL MARKINGS IN BOTH LUNG BASES QUESTION ATELECTASIS OR INTERSTITIAL EDEMA. Impression dictated by: Robinson Browning M.D.11/18/2024 6:03 PM Dictation Location: RADIO-PC-29 Transcribed By: [place]AL[place] 11/18/241802 Dictated By: Robinson Browning MD 11/18/241801 Signed By: 11/18/241802 [facility] Work Phone: XR chest 1V portableon 11-18 XR chest 1V portable [facility] [address] [place] [address] XRay Report Signed Patient: Morgan Latham MR#: [id number] [id number] : 1965 Acct:[id number] Age/Sex: 59 / M ADM Date: 11/18/24 Loc: ER Room: Type: PRE ER Attending Dr: Copies to: Rene Ernandez MD Ordering Provider: Rene Ernandez MD Date of Service: 11/18/24 XR/XR chest 1V portable: Chest Pain SINGLE VIEW CHEST CLINICAL HISTORY: Shortness of breath and chest pain COMPARISON: None FINDINGS: Sternotomy wires. Cardiomegaly. Mild central hilar disease. Increased markings both lung bases possibly related to interstitial edema or vascular congestion no effusion or pneumothorax. Left shoulder arthroplasty. XR/XR chest 1V portable IMPRESSION: CARDIOMEGALY WITH SMALL CENTRAL VASCULAR CONGESTION MILDLY PROMINENT INTERSTITIAL MARKINGS IN BOTH LUNG BASES QUESTION ATELECTASIS OR INTERSTITIAL EDEMA. Impression dictated by: Robinson Browning M.D.11/18/2024 6:03 PM Dictation Location: RADIO-PC-29 Transcribed By: MORALES 11/18/241802 Dictated By: Robinson Browning MD 11/18/241801 Signed By: 11/18/241802 Normal [facility] aPTT in Platelet poor plasma by Coagulation assayOrdered By: Rene Ernandez on 11-18-2024 aPTT Coag (PPP) [Time] Activated partial thromboplastin time (aPTT) in platelet poor plasma by coagulation a 25.1-36.5 [facility] Comment on above: A hematocrit value g reater than 55% may lead to inaccurate results in coagulation testing. Patients having hematocrit values >55% require a special collection tube for coagulation studies. Please contact the laboratory at [phone] for redraw instructions. aPTT Coag (PPP) [Time] 31.5 s 25.1-36.5 [facility] Comment on above: A hematocrit value g reater than 55% may lead to inaccurate results in coagulation testing. Patients having hematocrit values >55% require a special collection tube for coagulation studies. Please contact the laboratory at [phone] for redraw instructions. X-ray reportOrdered By: Brandon Stone on 08-27-2024 Study report [facility] [address] [place] [address] XRay Report Signed Patient: Morgan Latham MR#: [id number] : 1965 Acct:[id number] Age/Sex: 58 / M ADM Date: 5 Loc: [facility] Room: Type: [facility] Attending Dr: Elsie Escalera MD Copies to: Elsie Escalera MD~ Ordering Provider: Elsie Escalera MD Date of Service: 08/27/24 XR/XR shoulder LT min 2V*: Z96.612 - Presence of leftartificial shoulder joint LEFT SHOULDER - - 3 views CLINICAL HISTORY: Follow-up shoulder arthroplasty COMPARISON: Left shoulder 07/21/2024 FINDINGS: No hardware complication or acute bony process. XR/XR shoulder LT min 2V* IMPRESSION: NO HARDWARE COMPLICATION. Impression dictated by: Juan Stone Jr., D.O.08/27/2024 9:45 AM Dictation Location: [place] [address] Transcribed By: [facility] 08/27/2445 Dictated By: Juan Stone Jr, DO 08/27/2445 Signed By: 08/27/24 0945 [facility] XR shoulder LT min 2V*on XR shoulder LT min 2V* [facility] [address] [place] [address] XRay Report Signed Patient: Morgan Latham MR#: [id number] [id number] : 1965 Acct:[id number] Age/Sex: 58 / M ADM Date: 08/27/24 Loc: [facility] Room: Type: [facility] Attending Dr: Elsie Escalera MD Copies to: Elsie Escalera MD Ordering Provider: Elsie Escalera MD Date of Service: 08/27/24 XR/XR shoulder LT min 2V*: Z96.612 - Presence of left artificial shoulder joint LEFT SHOULDER - - 3 views CLINICAL HISTORY: Follow-up shoulder arthroplasty COMPARISON: Left shoulder 07/21/2024 FINDINGS: No hardware complication or acute bony process. XR/XR shoulder LT min 2V* IMPRESSION: NO HARDWARE COMPLICATION. Impression dictated by: Juan Stone Jr., D.O.08/27/2024 9:45 AM Dictation Location: [place] [address] Transcribed By: [facility] 08/27/24 0945 Dictated By: Juan Stone Jr, DO 08/27/24 0945 Signed By: 08/27/24 0945 Normal [facility] Bacteria identified Cx Nom ( Unsp spec)Ordered By: Agnes Houser on 08-16-2024 Interpretation and review of laboratory results Abnormal [facility] Microscopic observation Gram stain Nom (Unsp spec) (2+) Few Polymorphonuclear leukocytes [facility] Microscopic observation Gram stain Nom (Unsp spec) No organisms seen [facility] Tissue/Wound Culture/SmearOr dered By: Agnes Houser on 08-16-2024 Bacteria identified Cx Nom (Unsp spec) (1+) Rare Methicillin Susceptible Staphylococcus aureus (MSSA) Abnormal [facility] Bacteria identifiedon 2024 Bacteria identified Cx Nom (Unsp spec) Test: Tissue/Wound Culture/Smear Specimen Source: Sinus Specimen Type: Tissue/Biopsy Specimen Date: 08/12/2024 1539 Result Date: 08/16/2024 0926 Result Status: Final result Abnormal: Yes Resulting Lab: [facility] [address] [id number] CULTURE (1+) Rare Methicillin Susceptible Staphylococcus aureus (MSSA) (Abnormal) STAIN (2+) Few Polymorphonuclear leukocytes No organisms seen SUSCEPTIBILITY Methicillin Susceptible Staphylococcus aureus (MSSA) METHOD MICROSCAN ---- --- CLINDAMYCIN <=0.250 ug/ml Susceptible ERYTHROMYCIN >4 ug/ml Resistant OXACILLIN 0.5 ug/ml Susceptible TETRACYCLINE <=2.000 ug/ml Susceptible TRIMETHOPRIM/SULFAMETHOXA ZOLE <=0.5/9.5 ug/ml Susceptible VANCOMYCIN 1.000 ug/ml Susceptible Abnormal [facility] Comment on above: Performed By: #### 6 [id number] #### SEKOU Santiago ([id number]) [facility] ([facility]) [address] [place] [address] XR shoulder LT min 2V*on XR shoulder LT min 2V* [facility] [address] [place] [address] XRay Report Signed Patient: Morgan Latham MR#: [id number] 034 : 1965 Acct:[id number] Age/Sex: 58 / M ADM Date: 07/21/24 Loc: [facility] Room: Type: [facility] Attending Dr: Elsie Escalera MD Copies to: Elsie Escalera MD Ordering Provider: Elsie Escalera MD Date of Service: 07/21/24 XR/XR shoulder LT min 2V*: Z96.612 - Presence of left artificial shoulder joint LEFT SHOULDER - - 3 views CLINICAL HISTORY: Follow-up shoulder arthroplasty COMPARISON: Left shoulder 07/15/2024 FINDINGS: No hardware complication or acute bony process. XR/XR shoulder LT min 2V* IMPRESSION: NO HARDWARE COMPLICATION. Impression dictated by: Juan Stone Jr., D.OAziza07/21/2024 3:51 PM Dictation Location: [place] [address] Transcribed By: [facility] 07/21/24 1551 Dictated By: Juan Stone Jr, DO 07/21/24 1537 Signed By: 07/21/24 1551 Normal [facility] Amphetamine Screen Ql (U)Ord ered By: Brandon Vargas on 07-15-2024 Amphetamines Ql (U) Amphetamines screen Negativ e [facility] Barbiturates [Presence] in U rine by Screen methodOrdered By: Brandon Vargas on 07-15-2024 Barbiturates Screen Ql (U) Barbiturates [Presence] in Urine by Screen method Negative [facility] Benzodiazepines Screen Ql (U )Ordered By: Brandon Vargas on 07-15-2024 Benzodiazepines Ql (U) Benzodiazepines [Presence] in Urine by Screen method Negative [facility] Benzoylecgonine [Presence] i n Urine by Screen methodOrdered By: Brandon Vargas on 07-15-2024 Benzoylecgonine Screen Ql (U) Benzoylecgonine [Presence] in Urine by Screen method Negative [facility] Cannabinoids [Presence] in U rine by Screen methodOrdered By: Brandon Vargas on 07-15-2024 Cannabinoids Screen Ql (U) Cannabinoids [Presence] in Urine by Screen method Negative [facility] Comment on above: These are unconfirme d results and should not be used for legal purposes. Drug Cut-Off Concentration: AMPH 1000 ng/mL KATIE 200 ng/mL KETAN 200 ng/mL COCM 300 ng/mL OP 300 ng/mL PCP 25 ng/mL THC 20 ng/mL Drug Screen,Urineon 07-15-20 Amphetamine Screen,Urine Negative Normal Negative [facility] Comment on above: Performed By: #### U RDS #### [address] Barbiturate Screen,Urine Negative Normal Negative [facility] Comment on above: Performed By: #### U RDS #### [address] Benzodiazepines Screen,Urine Negative Normal Negative [facility] Comment on above: Performed By: #### U RDS #### [address] Cannabinoid Screen,Urine Negative Normal Negative [facility] Comment on above: Result Comment: Thes e are unconfirmed results and should not be used for legal purposes. Drug Cut-Off Concentration: AMPH 1000 ng/mL KATIE 200 ng/mL KETAN 200 ng/mL COCM 300 ng/mL OP 300 ng/mL PCP 25 ng/mL THC 20 ng/mL PERFORMED BY: [place] [address] PATHOLOGIST MANUFACTURING PROCESS TECHNICIAN TIARA TUBBS M.D. Performed By: #### U RDS #### [address] Cocaine Screen,Urine Negative Normal Negative [facility] Comment on above: Performed By: #### U RDS #### [address] Opiate Screen,Urine Positive High Negative [facility] Comment on above: Performed By: #### U RDS #### [address] Phencyclidine Screen,Urine Negative Normal Negative [facility] Comment on above: Performed By: #### U RDS #### [address] 07-15-2024 L ----- Specimen: [id number] Received: 07/15/24 Status: CELIO Osman Num: [id number] Spec Type: Surgical Subm Dr: Elsie Escalera MD Tissues: A Joint/Knee (LEFT SHOULDER BONE AND TISSU) Procedures: NEY Gross/Micro L4, Decalcification Age/ Patient Sex Location Account Attending Physician Morgan Latham/[facility] [id number] Elsie Escalera MD SPEC NUM: [id number] RECD: 07/15/24 STATUS: CELIO OSMAN NUM: [id number] ANGEL: 07/15/24- SUBM DR: Elsie Escalera MD ENTERED: 07/15/24 [facility] DR: RAMIRO TYPE: Surgical DEPT: S ENTERED BY: [id number] RECV BY: [id number] ORDERED: Yvette BREWSTER/Micro L4, Decalcification ORDERED: Yvette BREWSTER/Micro L4, Decalcification Pathological Diagnosis Left shoulder bone and tissue, 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 The articular surface is remarkable for granular degeneration and a hyperostotic change, 3 x 2 x 0.5 cm. The subarticular capsular surface ranges from 0.2 to 0.3 cm in thickness. The medullary bone is soler, firm and uniform. A sales representative womens health section is submitted in a single cassette after decalcification. (1, , [id number] A)GAMALIEL Specimen: [id number] Received: 07/15/24 Status: CELIO Clarence Num: [id number] Spec Type: Surgical Subm Dr: Elsie Escalera MD Tissues: A Joint/Knee (LEFT SHOULDER BONE AND TISSU) Procedures: NEY, Gross/Micro L4, Decalcification Patient: Morgan Latham [id number] (Continued) Specimen: [id number] Received: 07/15/24 (Continued) Signed (signature on file) Sanjuana Spann MD 07/17/24 1746 Specimen: [id number] Received: 07/15/24 Status: CELIO Headleysilvia Num: [id number] Spec Type: Surgical Subm Dr: Elsie Escalera MD Tissues: A Joint/Knee (LEFT SHOULDER BONE AND TISSU) Procedures: NEY, Gross/Micro L4, Decalcification Patient: Morgan Latham [id number] (Continued) Specimen: [id number] Received: 07/15/24 (Continued) Microscopic Description Microscopic examinations are performed supporting the above interpretation CPT Codes [id number] Specimen: [id number] Received: 07/15/24 Status: CELIO Clarence Num: [id number] Spec Type: Surgical Subm Dr: Elsie Escalera MD Tissues: A Joint/Knee (LEFT SHOULDER BONE AND TISSU) Procedures: Yvette BREWSTER/Grecia L4, Decalcification Patient: Morgan Latham [id number] (Continued) Signed (signature on file) Sanjuana Spnan MD 07/17/24 0594 Normal [facility] Opiates [Presence] in Urine by Screen methodOrdered By: Brandon Vargas on 07-15-2024 Opiates Screen Ql (U) Opiates [Presence] in Urine by Screen method High Negative [facility] Phencyclidine Screen Ql (U)O rdered By: Brandon Vargas on 07-15-2024 Phencyclidine Ql (U) Phencyclidine [Pres ence] in Urine by Screen method Negative [facility] XR shoulder LT min 2V*on XR shoulder LT min 2V* [facility] [address] [place] [address] XRay Report Signed Patient: Morgan Latham MR#: [id number] : 1965 Acct:[id number] Age/Sex: 58 / M ADM Date: 07/15/24 Loc: [place] Room: Type: [facility] Attending Dr: Elsie Escalera MD Copies to: Elsie Escalera MD Ordering Provider: Elsie Escalera MD Date of Service: 07/15/24 XR/XR shoulder LT min 2V*: POST OP 4 views left shoulder plain film HISTORY: Status post left total shoulder arthroplasty COMPARISON: 07/09/2024 ACUTE FINDINGS: None DEGENERATIVE CHANGE: Unremarkable SOFT TISSUE FINDINGS: Unremarkable JOINT EFFUSION: None POSTOP CHANGES: Adequate hardware. BONY MINERALIZATION: Adequate XR/XR shoulder LT min 2V* IMPRESSION: Uncomplicated left shoulder arthroplasty Impression dictated by: Shyam Hahn M.D.07/15/2024 3:13 PM Dictation Location: [place] [address] Transcribed By: [facility] 07/15/24 1513 Dictated By: Shyam Hahn DO 07/15/24 1510 Signed By: 07/15/24 1513 Normal [facility] Alanine aminotransferase [En zymatic activity/volume] in Serum or PlasmaOrdered By: Elsie Escalera on 07-09-2024 ALT [Catalytic activity/Vol] Alanine aminotransferase [Enzymatic activity/volume] in Serum or Plasma [facility] Albumin [Mass/volume] in Ser um or Plasma by Bromocresol green (BCG) dye binding methoOrdered By: Elsie Escalera on 07-09-2024 Albumin BCG dye [Mass/Vol] Albumin [Mass/volume] in Serum or Plasma by Bromocresol green (BCG) dye binding metho 3.5-5.7 [facility] Alkaline phosphatase [Enzyma tic activity/volume] in Serum or PlasmaOrdered By: Elsie Escalera on 07-09-2024 ALP [Catalytic activity/Vol] Alkaline phosphatase [Enzymatic activity/volume] in Serum or Plasma 34-104 [facility] Appearance of UrineOrdered B y: Elsie Escalera on 07-09-2024 Appearance (U) Urine appearance Clear [facility] Aspartate aminotransferase [ Enzymatic activity/volume] in Serum or PlasmaOrdered By: Elsie Escalera on 07-09-2024 AST [Catalytic activity/Vol] Aspartate aminotransferase [Enzymatic activity/volume] in Serum or Plasma 13-39 [facility] Basophils Auto (Bld) [#/Vol] Ordered By: Elsie Escalera on 07-09-2024 Basophils (Bld) [#/Vol] Automated basophil count 0.0-0.2 [facility] Basophils/100 WBC Auto (Bld) Ordered By: Elsie Escalera on 07-09-2024 Basophils/100 WBC (Bld) Automated basophil % . [facility] Bilirubin Test strip Ql (U)O rdered By: Elsie Escalera on 07-09-2024 Bilirubin Ql (U) Bilirubin.total [Presence] in Urine by Test strip Negative [facility] Bilirubin.total [Mass/volume ] in Serum or PlasmaOrdered By: Elsei Escalera on 07-09-2024 Bilirubin [Mass/Vol] Bilirubin.total [Mass/volume] in Serum or Plasma 0.3-1.0 [facility] Blood estimated average gluc ose determination by estimation from glycated hemoglobinOrdered By: Elsie Escalera on 07-09-2024 Average glucose Estimated from glycated hemoglobin (Bld) [Mass/Vol] Glucose mean value [Mass/volume] in Blood Estimated from glycated hemoglobin [facility] CMP with reflex to A1Con Albumin [Mass/Vol] 4.1 g/dL Normal 3.5-5.7 [facility] Comment on above: Performed By: #### L YTES, CBC, LIPID, PP, BUN, CREAT #### [address] Albumin/Globulin [Mass ratio] 1.7 {ratio} Normal [facility] Comment on above: Performed By: #### L YTES, CBC, LIPID, PP, BUN, CREAT #### [address] ALP [Catalytic activity/Vol] 79 U/L Normal 34-104 [facility] Comment on above: Result Comment: PERF ORMED BY: [place] [address] PATHOLOGIST MANUFACTURING PROCESS TECHNICIAN TIARA TUBBS M.D. Performed By: #### L YTES, CBC, LIPID, PP, BUN, CREAT #### [address] ALT [Catalytic activity/Vol] 16 U/L Normal 7-52 [facility] Comment on above: Performed By: #### L YTES, CBC, LIPID, PP, BUN, CREAT #### [address] Anion gap [Moles/Vol] 11.5 mmol/L Normal 6.0-15.0 [facility] Comment on above: Performed By: #### L YTES, CBC, LIPID, PP, BUN, CREAT #### [address] AST [Catalytic activity/Vol] 20 U/L Normal 13-39 [facility] Comment on above: Performed By: #### L YTES, CBC, LIPID, PP, BUN, CREAT #### [address] Bilirubin [Mass/Vol] 0.7 mg/dL Normal 0.3-1.0 [facility] Comment on above: Performed By: #### L YTES, CBC, LIPID, PP, BUN, CREAT #### [address] Calcium [Mass/Vol] 9.1 mg/dL Normal 8.6-10.3 [facility] Comment on above: Performed By: #### L YTES, CBC, LIPID, PP, BUN, CREAT #### [address] Chloride [Moles/Vol] 105 mmol/L Normal 98-107 [facility] Comment on above: Performed By: #### L YTES, CBC, LIPID, PP, BUN, CREAT #### [address] CO2 [Moles/Vol] 26.9 mmol/L Normal 21.0-31.0 [facility] Comment on above: Performed By: #### L YTES, CBC, LIPID, PP, BUN, CREAT #### [address] Creatinine [Mass/Vol] 1.16 mg/dL Normal 0.70-1.30 [facility] Comment on above: Performed By: #### L YTES, CBC, LIPID, PP, BUN, CREAT #### [address] GFR/1.73 sq M.predicted MDRD (S/P/Bld) [Vol rate/Area] mL/min/{1.73_m2} Normal [facility] Comment on above: Performed By: #### L YTES, CBC, LIPID, PP, BUN, CREAT #### [address] Globulin (S) [Mass/Vol] 2.4 g/dL Normal [facility] Comment on above: Performed By: #### L YTES, CBC, LIPID, PP, BUN, CREAT #### [address] Glucose [Mass/Vol] 114 mg/dL Normal [facility] Comment on above: Result Comment: ADA recommended reference range Performed By: #### L YTES, CBC, LIPID, PP, BUN, CREAT #### [address] Result Comment: PERF ORMED BY: [place] [address] PATHOLOGIST MANUFACTURING PROCESS TECHNICIAN TIARA TUBBS M.D. Potassium [Moles/Vol] 4.4 mmol/L Normal 3.5-5.1 [facility] Comment on above: Performed By: #### L YTES, CBC, LIPID, PP, BUN, CREAT #### [facility] [address] Protein [Mass/Vol] 6.5 g/dL Normal 6.4-8.9 [facility] Comment on above: Performed By: #### L YTES, CBC, LIPID, PP, BUN, CREAT #### [facility] [address] Sodium [Moles/Vol] 139 mmol/L Normal 136-145 [facility] Comment on above: Performed By: #### L YTES, CBC, LIPID, PP, BUN, CREAT #### [facility] [address] Urea nitrogen [Mass/Vol] 12 mg/dL Normal 7-25 [facility] Comment on above: Performed By: #### L YTES, CBC, LIPID, PP, BUN, CREAT #### [address] Calcium [Mass/volume] in Ser um or PlasmaOrdered By: Elsie Escalera on 07-09-2024 Calcium [Mass/Vol] Calcium [Mass/volume ] in Serum or Plasma 8.6-10.3 [facility] Carbon dioxide, total [Moles /volume] in Serum or PlasmaOrdered By: Elsie Escalera on 07-09-2024 CO2 [Moles/Vol] Carbon dioxide, tota l [Moles/volume] in Serum or Plasma 21.0-31.0 [facility] Chloride [Moles/volume] in S autumn or PlasmaOrdered By: Elsie Escalera on 07-09-2024 Chloride [Moles/Vol] Chloride [Moles/vol ume] in Serum or Plasma 98-107 [facility] Color Auto (U)Ordered By: Lukas Escalera on 07-09-2024 Color (U) Color of Urine by Auto [facility] Blood Count Auto Di ffon 07-09-2024 Basophils (Bld) [#/Vol] 0.1 10*3/uL Normal 0.0-0.2 [facility] Comment on above: Result Comment: PERF ORMED BY: [place] [address] PATHOLOGIST MANUFACTURING PROCESS TECHNICIAN TIARA TUBBS M.D. Performed By: #### L YTES, CBC, LIPID, PP, BUN, CREAT #### [address] Basophils/100 WBC (Bld) 1.2 % Normal . [facility] Comment on above: Performed By: #### L YTES, CBC, LIPID, PP, BUN, CREAT #### [address] Eosinophils (Bld) [#/Vol] 0.5 10*3/uL High 0.0-0.45 [facility] Comment on above: Performed By: #### L YTES, CBC, LIPID, PP, BUN, CREAT #### [address] Eosinophils/100 WBC (Bld) 10.8 % Normal . [facility] Comment on above: Performed By: #### L YTES, CBC, LIPID, PP, BUN, CREAT #### [address] Erythrocyte distribution width (RBC) [Ratio] 14.2 % Normal 12.0-14.8 [facility] Comment on above: Performed By: #### L YTES, CBC, LIPID, PP, BUN, CREAT #### [address] Hematocrit (Bld) [Volume fraction] 38.8 % Normal 38.8-50.0 [facility] Comment on above: Performed By: #### L YTES, CBC, LIPID, PP, BUN, CREAT #### [address] Hemoglobin (Bld) [Mass/Vol] 13.1 g/dL Normal 13.0-17.0 [facility] Comment on above: Performed By: #### L YTES, CBC, LIPID, PP, BUN, CREAT #### [address] Lymphocytes (Bld) [#/Vol] 1.1 10*3/uL Normal 1.00-4.8 [facility] Comment on above: Performed By: #### L YTES, CBC, LIPID, PP, BUN, CREAT #### [address] Lymphocytes/100 WBC (Bld) 25.6 % Normal . [facility] Comment on above: Performed By: #### L YTES, CBC, LIPID, PP, BUN, CREAT #### [address] MCH (RBC) [Entitic mass] 32.4 pg Normal 27.5-35.2 [facility] Comment on above: Performed By: #### L YTES, CBC, LIPID, PP, BUN, CREAT #### [address] MCV (RBC) [Entitic vol] 96.1 fL Normal 83.5-101 [facility] Comment on above: Performed By: #### L YTES, CBC, LIPID, PP, BUN, CREAT #### [address] Mean Corpuscular HGB Conc 33.7 g/dL Normal 32.5-35.6 [facility] Comment on above: Performed By: #### L YTES, CBC, LIPID, PP, BUN, CREAT #### [address] Monocytes (Bld) [#/Vol] 0.6 10*3/uL Normal 0.0-0.8 [facility] Comment on above: Performed By: #### L YTES, CBC, LIPID, PP, BUN, CREAT #### [address] Monocytes/100 WBC (Bld) 14.8 % Normal . [facility] Comment on above: Performed By: #### L YTES, CBC, LIPID, PP, BUN, CREAT #### [address] Neutrophils (Bld) [#/Vol] 2.1 10*3/uL Normal 1.8-7.7 [facility] Comment on above: Performed By: #### L YTES, CBC, LIPID, PP, BUN, CREAT #### [address] Neutrophils/100 WBC (Bld) 47.6 % Normal . [facility] Comment on above: Performed By: #### L YTES, CBC, LIPID, PP, BUN, CREAT #### [address] NRBC% 0.1 /100{WBC} Normal 0-0.5 [facility] Comment on above: Performed By: #### L YTES, CBC, LIPID, PP, BUN, CREAT #### [address] Platelet mean volume (Bld) [Entitic vol] 7.8 fL Normal 6.6-10.1 [facility] Comment on above: Performed By: #### L YTES, CBC, LIPID, PP, BUN, CREAT #### [address] Platelets (Bld) [#/Vol] 322 10*3/uL Normal 150-450 [facility] Comment on above: Performed By: #### L YTES, CBC, LIPID, PP, BUN, CREAT #### [address] RBC (Bld) [#/Vol] 4.04 10*6/uL Normal 3.90-5.60 [facility] Comment on above: Performed By: #### L YTES, CBC, LIPID, PP, BUN, CREAT #### [address] WBC (Bld) [#/Vol] 4.4 10*3/uL Normal 4.1-10.5 [facility] Comment on above: Performed By: #### L YTES, CBC, LIPID, PP, BUN, CREAT #### [facility] [address] [place] [id number] [facility] Creatinine [Mass/volume] in Serum or PlasmaOrdered By: Elsie Escalera on 07-09-2024 Creatinine [Mass/Vol] Creatinine [Mass/v olume] in Serum or Plasma 0.70-1.30 [facility] ECG 12 lead ECGon 07-09-2024 ECG 12 lead ECG [facility] [place] [address] [place] [address] Electrocardiograph Report Signed Patient: Morgan Lathma MR#: [id number] : 1965 Acct:[id number] Age/Sex: 58 / M ADM Date: 07/09/24 Loc: Room: Type: [facility] Attending Dr: Elsie Escalera MD Ordering Provider: Elsie Escalera MD Date of Service: 07/09/2412/26/737 ECG/ECG 12 lead ECG: LEFT REVERSE TOTAL SHOULDER ARTHROPLASTY Copies to: Test Reason : Blood Pressure : */* mmHG Vent. Rate : 91 BPM Atrial Rate : 91 BPM P-R Int : 142 ms QRS Dur : 92 ms QT Int : 394 ms P-R-T Axes : 48 45 59 degrees QTcB Int : 484 ms Normal sinus rhythm Cannot rule out Septal infarct , age undetermined Abnormal ECG When compared with ECG of 20-Sep-2022 10:08, Septal infarct is now present Borderline criteria for Lateral infarct are now present Nonspecific T wave abnormality now evident in Lateral leads QT has lengthened Confirmed by Van Wright ([id number]) on 07/09/2024 11:14:26 AM Referred By: Electronically Signed By: Van Wright Transcribed By: MUS Signed By Van Wright MD 07/09/24 1114 Normal [facility] Eosinophils Auto (Bld) [#/Vo l]Ordered By: Elsie Escalera on 07-09-2024 Eosinophils (Bld) [#/Vol] Automated eosinophil count High 0.0-0.45 [facility] Eosinophils/100 WBC Auto (Bl d)Ordered By: Elsie Escalera on 07-09-2024 Eosinophils/100 WBC (Bld) Automated eosinophil % . [facility] Erythrocyte distribution wid th Auto (RBC) [Ratio]Ordered By: Elsie Escalera on 07-09-2024 Erythrocyte distribution width (RBC) [Ratio] Erythrocyte distribution width [Ratio] by Automated count 12.0-14.8 [facility] Globulin Calc (S) [Mass/Vol] Ordered By: Elsie Escalera on 07-09-2024 Globulin (S) [Mass/Vol] Serum globulin measurement by calculation (mass/volume) [facility] Glucose [Mass/volume] in Ser um or PlasmaOrdered By: Elsie Escalera on 07-09-2024 Glucose [Mass/Vol] Glucose [Mass/volume ] in Serum or Plasma High 70-100 [facility] Comment on above: ADA recommended refe rence range Glucose [Mass/volume] in Uri ne by Test stripOrdered By: Elsie Escalera on 07-09-2024 Glucose Test strip (U) [Mass/Vol] Glucose [Mass/volume] in Urine by Test strip Normal [facility] Hematocrit Auto (Bld) [Volum e fraction]Ordered By: Elsie Escalera on 07-09-2024 Hematocrit (Bld) [Volume fraction] Hematocrit [Volume Fraction] of Blood by Automated count 38.8-50.0 [facility] Hemoglobin A1c measurementOr dered By: Elsie Escalera on 07-09-2024 HbA1c (Bld) [Mass fraction] 5.6 % Normal 4.3-5.6 [facility] Comment on above: Increased risk for d iabetes: 5.7 - 6.4diabetes: >6.4glycemic control for adults with diabetes: <7.0 Result Comment: Incr eased risk for diabetes: 5.7 - 6.4 diabetes: >6.4 glycemic control for adults with diabetes: <7.0 Performed By: #### L YTES, CBC, LIPID, PP, BUN, CREAT #### [address] Hemoglobin Test strip Ql (U) Ordered By: Elsie Escalera on 07-09-2024 Hemoglobin Ql (U) Hemoglobin [Presence ] in Urine by Test strip Negative [facility] Hemoglobin [Mass/volume] in BloodOrdered By: Elsie Escalera on 07-09-2024 Hemoglobin (Bld) [Mass/Vol] Hemoglobin [Mass/volume] in Blood 13.0-17.0 [facility] Ketones Test strip Ql (U)Ord ered By: Elsie Escalera on 07-09-2024 Ketones Ql (U) Ketones [Presence] i n Urine by Test strip Negative [facility] Leukocyte esterase [Presence ] in Urine by Test stripOrdered By: Elsie Escalera on 07-09-2024 Leukocyte esterase Test strip Ql (U) Leukocyte esterase [Presence] in Urine by Test strip Negative [facility] Leukocytes [#/volume] correc liss for nucleated erythrocytes in Blood by Automated counOrdered By: Elsie Escalera on 07-09-2024 WBC corrected for nucl RBC Auto (Bld) [#/Vol] Leukocytes [#/volume] corrected for nucleated erythrocytes in Blood by Automated coun 4.1-10.5 [facility] Lymphocytes Auto (Bld) [#/Vo l]Ordered By: Elsie Escalera on 07-09-2024 Lymphocytes (Bld) [#/Vol] Lymphocytes [#/volume] in Blood by Automated count 1.00-4.8 [facility] Lymphocytes/100 WBC Auto (Bl d)Ordered By: Elsie Escalera on 07-09-2024 Lymphocytes/100 WBC (Bld) Lymphocytes/100 leukocytes in Blood by Automated count . [facility] MCH Auto (RBC) [Entitic mass ]Ordered By: Elsie Escalera on 07-09-2024 MCH (RBC) [Entitic mass] MCH [Entitic mass] by Automated count 27.5-35.2 [facility] MCHC Auto (RBC) [Mass/Vol]Or dered By: Elsie Escalera on 07-09-2024 MCHC (RBC) [Mass/Vol] MCHC [Mass/volume] by Automated count 32.5-35.6 [facility] MCV Auto (RBC) [Entitic vol] Ordered By: Elsie Escalera on 07-09-2024 MCV (RBC) [Entitic vol] MCV [Entitic vol ume] by Automated count 83.5-101 [facility] Monocytes Auto (Bld) [#/Vol] Ordered By: Elsie Escalera on 07-09-2024 Monocytes (Bld) [#/Vol] Automated blood monocyte count 0.0-0.8 [facility] Monocytes/100 WBC Auto (Bld) Ordered By: Elsie Escalera on 07-09-2024 Monocytes/100 WBC (Bld) Automated monocyte % . [facility] Neutrophils Auto (Bld) [#/Vo l]Ordered By: Elsie Escalera on 07-09-2024 Neutrophils (Bld) [#/Vol] Neutrophils [#/volume] in Blood by Automated count 1.8-7.7 [facility] Neutrophils/100 WBC Auto (Bl d)Ordered By: Elsie Escalera on 07-09-2024 Neutrophils/100 WBC (Bld) Automated neutrophil % . [facility] Nitrite Test strip Ql (U)Ord ered By: Elsie Escalera on 07-09-2024 Nitrite Ql (U) Nitrite [Presence] i n Urine by Test strip Negative [facility] No Panel InformationOrdered By: Elsie Escalera on 07-09-2024 Estimated GFR (CKD-EPI) > 60.0 mL/Min [facility] Creatinine Clearance (Chem N/A [facility] Nucleated erythrocytes [Pres ence] in Blood by Automated countOrdered By: Elsie Escalera on 07-09-2024 Nucleated RBC Auto Ql (Bld) Nucleated erythrocytes [Presence] in Blood by Automated count 0-0.5 [facility] Platelet mean volume Auto (B ld) [Entitic vol]Ordered By: Elsie Escalera on 07-09-2024 Platelet mean volume (Bld) [Entitic vol] Platelet mean volume [Entitic volume] in Blood by Automated count 6.6-10.1 [facility] Platelets Auto (Bld) [#/Vol] Ordered By: Elsie Escalera on 07-09-2024 Platelets (Bld) [#/Vol] Platelets [#/vol ume] in Blood by Automated count 150-450 [facility] Potassium [Moles/volume] in Serum or PlasmaOrdered By: Elsie Escalera on 07-09-2024 Potassium [Moles/Vol] Potassium [Moles/v olume] in Serum or Plasma 3.5-5.1 [facility] Protein Test strip (U) [Mass /Vol]Ordered By: Elsie Escalera on 07-09-2024 Protein (U) [Mass/Vol] Protein [Mass/vol ume] in Urine by Test strip Negative [facility] Protein [Mass/volume] in Ser um or PlasmaOrdered By: Elsie Escalera on 07-09-2024 Protein [Mass/Vol] Protein [Mass/volume ] in Serum or Plasma 6.4-8.9 [facility] RBC Auto (Bld) [#/Vol]Ordere d By: Elsie Escalera on 07-09-2024 RBC (Bld) [#/Vol] Erythrocytes [#/volu me] in Blood by Automated count 3.90-5.60 [facility] Serum or plasma albumin/glob ulin mass ratioOrdered By: Elsie Escalera on 07-09-2024 Albumin/Globulin [Mass ratio] Serum or plasma albumin/globulin mass ratio [facility] Serum or plasma anion gap de terminationOrdered By: Elsie Escalera on 07-09-2024 Anion gap [Moles/Vol] Serum or plasma an ion gap determination 6.0-15.0 [facility] Sodium [Moles/volume] in Ser um or PlasmaOrdered By: Elsie Escalera on 07-09-2024 Sodium [Moles/Vol] Sodium [Moles/volume ] in Serum or Plasma 136-145 [facility] Specific gravity Test strip (U) [Rel density]Ordered By: Elsie Escalera on 07-09-2024 Specific gravity (U) [Rel density] Specific gravity of Urine by Test strip 1.001-1.03 0 [facility] Urea nitrogen [Mass/volume] in Serum or PlasmaOrdered By: Elsie Escalera on 07-09-2024 Urea nitrogen [Mass/Vol] Urea nitrogen [Mass/volume] in Serum or Plasma 7-25 [facility] Urinalysison 07-09-2024 Appearance (U) Clear Normal Clear [facility] Comment on above: Order Comment: Name Collection Type:: Clean-Voided Midstream Performed By: #### L YTES, CBC, LIPID, PP, BUN, CREAT #### [facility] [address] Bilirubin,Urine Negative Normal Negative [facility] Comment on above: Order Comment: Name Collection Type:: Clean-Voided Midstream Performed By: #### L YTES, CBC, LIPID, PP, BUN, CREAT #### [address] Color (U) Light-Yellow Normal Yellow [facility] Comment on above: Order Comment: Name Collection Type:: Clean-Voided Midstream Performed By: #### L YTES, CBC, LIPID, PP, BUN, CREAT #### [address] Glucose Ql (U) Normal Normal Normal [facility] Comment on above: Order Comment: Name Collection Type:: Clean-Voided Midstream Performed By: #### L YTES, CBC, LIPID, PP, BUN, CREAT #### [address] Ketones Ql (U) Negative Normal Negative [facility] Comment on above: Order Comment: Name Collection Type:: Clean-Voided Midstream Performed By: #### L YTES, CBC, LIPID, PP, BUN, CREAT #### [address] Leukocyte esterase Test strip Ql (U) Negative Normal Negative [facility] Comment on above: Order Comment: Name Collection Type:: Clean-Voided Midstream Performed By: #### L YTES, CBC, LIPID, PP, BUN, CREAT #### [place] [address] [place] Nitrite,Urine Negative Normal Negative [facility] Comment on above: Order Comment: Name Collection Type:: Clean-Voided Midstream Performed By: #### L YTES, CBC, LIPID, PP, BUN, CREAT #### [place] [address] [place] Occult Blood,Urine Negative Normal Negative [facility] Comment on above: Order Comment: Name Collection Type:: Clean-Voided Midstream Result Comment: PERF ORMED BY: [place] [address] PATHOLOGIST MANUFACTURING PROCESS TECHNICIAN MOHAMED M EL-FAKHARANY M.D. Performed By: #### L YTES, CBC, LIPID, PP, BUN, CREAT #### [address] pH (U) 7.0 [pH] Normal 5.0-9.0 [facility] Comment on above: Order Comment: Name Collection Type:: Clean-Voided Midstream Performed By: #### L YTES, CBC, LIPID, PP, BUN, CREAT #### [address] Protein,Urine Negative Normal Negative [facility] Comment on above: Order Comment: Name Collection Type:: Clean-Voided Midstream Performed By: #### L YTES, CBC, LIPID, PP, BUN, CREAT #### [address] Specificy [place],Urine 1.010 Normal 1.00 1-1.03 0 [facility] Comment on above: Order Comment: Name Collection Type:: Clean-Voided Midstream Performed By: #### L YTES, CBC, LIPID, PP, BUN, CREAT #### [address] Urobilinogen,Urine Normal Normal Normal [facility] Comment on above: Order Comment: Name Collection Type:: Clean-Voided Midstream Performed By: #### L YTES, CBC, LIPID, PP, BUN, CREAT #### [address] Urobilinogen Test strip (U) [Mass/Vol]Ordered By: Elsie Escalera on 07-09-2024 Urobilinogen (U) [Mass/Vol] Urobilinogen [Mass/volume] in Urine by Test strip Normal [facility] WBC Auto (Bld) [#/Vol]Ordere d By: Elsie Escalera on 07-09-2024 WBC (Bld) [#/Vol] Leukocytes [#/volume ] in Blood by Automated count 4.1-10.5 [facility] XR shoulder LT min 2V*on XR shoulder LT min 2V* [facility] [address] [place] [address] XRay Report Signed Patient: Morgan Latham MR#: [id number] : 1965 Acct:[id number] Age/Sex: 58 / M ADM Date: 07/09/24 Loc: SOX Room: Type: [facility] Attending Dr: Elsie Escalera MD Copies to: Elsie Escalera MD Ordering Provider: Elsie Escalera MD Date of Service: 07/09/24 XR/XR shoulder LT min 2V*: Z01.818 - Encounter for other preprocedural examination 4 views left shoulder plain film HISTORY: Preop assessment for left reverse total shoulder arthroplasty COMPARISON: 01/14/2024 ACUTE FINDINGS: None DEGENERATIVE CHANGE: Redemonstration of chronic AVN findings of the medial portion of the humeral head. Glenohumeral joint space narrowing. Humeral head elevation with narrowing of acromiohumeral space consistent with rotator cuff insufficiency. Acromioclavicular spurring. SOFT TISSUE FINDINGS: Unremarkable JOINT EFFUSION: None POSTOP CHANGES: None BONY MINERALIZATION: Adequate XR/XR shoulder LT min 2V* IMPRESSION: Similar chronic findings of AVN of the medial portion of the humeral head with extensive degenerative change and rotator cuff insufficiency Impression dictated by: Shyam Hahn M.D.07/09/2024 12:55 PM Dictation Location: [place] [address] Transcribed By: [facility] 07/09/24 1255 Dictated By: Shyam Hahn DO 07/09/24 1251 Signed By: 07/09/24 1255 Normal [facility] pH Test strip (U)Ordered By: Elsie Escalera on 07-09-2024 pH (U) pH of Urine by Test strip 5.0-9.0 [facility] Bacteria identified Cx Nom ( Unsp spec)Ordered By: Agnes Houser on 05-30-2024 Interpretation and review of laboratory results Abnormal [facility] Microscopic observation Gram stain Nom (Unsp spec) (2+) Few Polymorphonuclear leukocytes Abnormal [facility] Microscopic observation Gram stain Nom (Unsp spec) Positive Abnormal [facility] Tissue/Wound Culture/SmearOr dered By: Agnes Houser on 05-30-2024 Bacteria identified Cx Nom (Unsp spec) (1+) Rare Pseudomonas aeruginosa Abnormal [facility] Bacteria identified Cx Nom (Unsp spec) Positive [facility] Bacteria identifiedon 2023 Bacteria identified Cx Nom (Unsp spec) Test: Tissue/Wound Culture/Smear Specimen Source: Sinus Specimen Type: Tissue/Biopsy Specimen Date: 05/27/20241617 Result Date: 05/30/2024927 Result Status: Final result Abnormal: Yes Resulting Lab: [facility] [address] [place] [address] CULTURE (1+) Rare Pseudomonas aeruginosa (Abnormal) (3+) Moderate Mixed Gram-Positive Bacteria STAIN (2+) Few Polymorphonuclear leukocytes (3+) Moderate Mixed Gram positive bacteria SUSCEPTIBILITY Pseudomonas aeruginosa METHOD MICROSCAN - AZTREONAM <=4.000 ug/ml Susceptible CEFEPIME <=2 ug/ml Susceptible CEFTAZIDIME <=1.000 ug/ml Susceptible CIPROFLOXACIN <=0.250 ug/ml Susceptible LEVOFLOXACIN <=0.500 ug/ml Susceptible PIPERACILLIN/TAZOBACTAM <=8.000 ug/ml Susceptible TOBRAMYCIN <=2 ug/ml Susceptible Abnormal [facility] Comment on above: Performed By: #### 6 [id number] #### SEKOU Santiago ([id number]) [facility] ([facility]) [address] [place] [address] ALL CBC WITH AUTO DIFFon BASOPHILS ABSOLUTE AUTO 0.1 [facility] Basophils/100 WBC (Bld) 1.0 % 0.2 - 2.0 % [facility] Eosinophils/100 WBC (Bld) 2.6 % 0.9 - 7.0 % [facility] Erythrocyte distribution width (RBC) [Ratio] 15.0 % 11.0 - 15.0 % [facility] Hematocrit (Bld) [Volume fraction] 38.2 % Low 42.0 - 54.0 % [facility] Hemoglobin (Bld) [Mass/Vol] 12.8 g/dL Low 14.0 - 18.0 g/dL [facility] IMMATURE GRANULOCYTES ABS AUTO 0.02 [facility] Immature granulocytes/100 WBC (Bld) 0.3 % 0.0 - 0.5 % [facility] Interpretation and review of laboratory results Abnormal [facility] LYMPHOCYTES ABSOLUTE AUTO 1.0 Low [facility] Lymphocytes/100 WBC (Bld) 13.4 % Low 20.5 - 60.0 % [facility] MCH (RBC) [Entitic mass] 31.8 pg 25.9 - 34.0 pg [facility] MCHC (RBC) [Mass/Vol] 33.5 g/dL 29.9 - 35.2 g/dL [facility] MCV (RBC) [Entitic vol] 95.0 fL High 80.0 - 94.0 fL [facility] MONOCYTES ABSOLUTE AUTO 0.7 [facility] Monocytes/100 WBC (Bld) 10.2 % 1.7 - 12.0 % [facility] NEUTROPHILS ABSOLUTE AUTO 5.3 [facility] Neutrophils/100 WBC (Bld) 72.5 % 43.0 - 75.0 % [facility] Platelet mean volume (Bld) [Entitic vol] 9.5 fL 9.5 - 13.5 fL [facility] TBH EO # 0.2 [facility]H PLT 323 [facility] TB RBC 4.02 Low [facility] TBH WBC 7.2 [facility] CLINISYNC [facility] CNCOon 03-31-2024 CNCO Letter Text Normal [facility] Surgical pathology studyon 0 02-28-2024 Surgical pathology study Pathology report.total SEE COMMENT Surgical Pathology Case: [id number] Authorizing Provider: Saul Gonzales MD Collected: 02/28/2024 0833 Ordering Location: [facility] Received: 02/28/2024 0939 [facility] [place] Pathologist: Sunshine Duncan MD Specimens: A) - SINUS CONTENTS RIGHT, RIGHT SINUS CONTENTS B) - SINUS CONTENTS LEFT, LEFT SINUS CONTENTS C) - SINUS CONTENTS BILATERAL, BILATERAL MICRODEBRIEDER CONTENTS Path report.final diagnosis SEE COMMENT A. SINUS CONTENTS, RIGHT: -- CHRONIC SINUSITIS. B. SINUS CONTENTS, LEFT: -- CHRONIC SINUSITIS. C. SINUS CONTENTS, BILATERAL: -- CHRONIC SINUSITIS. Laboratory comment By the signature on this report, the individual or group listed as making the Final Interpretation/Diagnosis certifies that they have reviewed this case. Path report.relevant Hx SEE COMMENT Pre-op diagnosis: Chronic maxillary sinusitis [J32.0] Deviated nasal septum [J34.2] Path report.gross observation SEE COMMENT A: Received in formalin, labeled with the patient's name and hospital number and right sinus contents , are multiple, irregular segments of cartilage, bone and soft tissue aggregating to 1.7 x 0.8 x 0.4 cm. The specimen is submitted in toto in one cassette following decalcification. SMS B: Received in formalin, labeled with the patient's name and hospital number and left sinus contents , are multiple, irregular segments of cartilage, bone, hemorrhagic material and soft tissue aggregating to 1.2 x 0.8 x 0.4 cm. The specimen is submitted in toto in one cassette following decalcification. SMS C: Received in formalin, labeled with the patient's name and hospital number and bilateral sinus contents , are multiple, irregular segments of cartilage, bone, hemorrhagic and mucinous material, and soft tissue aggregating to 3.7 x 2.3 x 0.5 cm. The specimen is submitted in toto in two cassettes following decalcification. [facility] Comment on above: Order Comment: Pre-o p diagnosis: Chronic maxillary sinusitis [J32.0] Deviated nasal septum [J34.2] Basic metabolic 2000 panelon 02-10-2024 Anion gap [Moles/Vol] 12 mmol/L Normal 10-20 [facility] Comment on above: Performed By: #### 2 4321-2 #### SEKOU Santiago ([id number]) [facility] ([facility]) [address] [place] [address] Calcium [Mass/Vol] 9.7 mg/dL Normal 8.6-10.6 [facility] Comment on above: Performed By: #### 2 4321-2 #### SEKOU Santiago ([id number]) [facility] ([facility]) [address] [place] [address] Chloride [Moles/Vol] 106 mmol/L Normal 98-107 [facility] Comment on above: Performed By: #### 2 4321-2 #### SEKOU GASPAR L ([id number]) [facility] ([facility]) [address] [place] [address] CO2 [Moles/Vol] 24 mmol/L Normal 21-32 [facility] Comment on above: Performed By: #### 2 4321-2 #### SEKOU GASPAR L ([id number]) [facility] ([facility]) [id number] [place] [address] Creatinine [Mass/Vol] 1.09 mg/dL Normal 0.50-1.30 [facility] Comment on above: Performed By: #### 2 4321-2 #### SEKOU GASPAR L ([id number]) [facility] ([facility]) [id number] [place] [address] Glomerular filtration rate/1.73 sq M.predicted 78 mL/min/1.73m*2 Normal >60 [facility] Comment on above: Result Comment: Calc ulations of estimated GFR are performed using the 2020 CKD-EPI Study Refit equation without the race variable for the IDMS-Traceable creatinine methods. https://jasn.asnjournals.org/content/early//ASN.2020 595667 Performed By: #### 2 4321-2 #### SEKOU GASPAR L ([id number]) [facility] ([facility]) [address] [place] [address] Glucose [Mass/Vol] 104 mg/dL High 74-99 [facility] Comment on above: Performed By: #### 2 4321-2 #### SEKOU GASPAR L ([id number]) [facility] ([facility]) [address] [place] [address] Potassium [Moles/Vol] 4.4 mmol/L Normal 3.5-5.3 [facility] Comment on above: Performed By: #### 2 4321-2 #### SEKOU Santiago ([id number]) [facility] ([facility]) [id number] [place] [address] Sodium [Moles/Vol] 138 mmol/L Normal 136-145 [facility] Comment on above: Performed By: #### 2 4321-2 #### SEKOU Santiago ([id number]) [facility] ([facility]) [address] [place] [address] Urea nitrogen [Mass/Vol] 14 mg/dL Normal 6-23 [facility] Comment on above: Performed By: #### 2 4321-2 #### SEKOU Santiago ([id number]) [facility] ([facility]) [id number] [place] [address] Blood type and Indirect anti body screen panel (Bld)on 02-10-2024 ABO group Nom (Bld) O Normal [facility] Comment on above: Performed By: #### 3 4532-2 #### SEKOU Santiago ([id number]) [facility] ([facility]) [address] [place] [address] Blood group antibody screen Ql Negative [facility] Comment on above: Performed By: #### 3 4532-2 #### SEKOU Santiago ([id number]) [facility] ([facility]) [id number] [place] [address]47 D Ag Ql (Bld) Positive [facility] Comment on above: Performed By: #### 3 4532-2 #### SEKOU Santiago ([id number]) [facility] ([facility]) [address] [place] [address] CBC panel Auto (Bld)on 02-09 Erythrocyte distribution width (RBC) [Ratio] 17.4 % High 11.5-14.5 [facility] Comment on above: Performed By: #### 5 8410-2 #### SEKOU Santiago ([id number]) [facility] ([facility]) [address] [place] [address] Hematocrit (Bld) [Volume fraction] 40.6 % Low 41.0-52.0 [facility] Comment on above: Performed By: #### 5 8410-2 #### SEKOU Santiago ([id number]) [facility] ([facility]) [address] [place] [address] Hemoglobin (Bld) [Mass/Vol] 13.3 g/dL Low 13.5-17.5 [facility] Comment on above: Performed By: #### 5 8410-2 #### SEKOU Santiago ([id number]) [facility] ([facility]) [address] [place] [address] MCH (RBC) [Entitic mass] 29.6 pg Normal 26.0-34.0 [facility] Comment on above: Performed By: #### 5 8410-2 #### SEKOU Santiago ([id number]) [facility] ([facility]) [address] [place] [address] MCHC (RBC) [Mass/Vol] 32.8 g/dL Normal 32.0-36.0 [facility] Comment on above: Performed By: #### 5 8410-2 #### SEKOU Santiago ([id number]) [facility] ([facility]) [address] [place] [address] MCV (RBC) [Entitic vol] 90 fL Normal 80-[address] [facility] Comment on above: Performed By: #### 5 8410-2 #### SEKOU Santiago ([id number]) [facility] ([facility]) [address] [place] [address] 28791 Nucleated RBC/100 WBC (Bld) [Ratio] 0.0 /100 WBCs Normal 0.0-0.0 [facility] Comment on above: Performed By: #### 5 8410-2 #### SEKOU Santiago ([id number]) [facility] ([facility]) [address] [place] [address] Platelets (Bld) [#/Vol] 332 x10*3/uL Normal 150-450 [facility] Comment on above: Performed By: #### 5 8410-2 #### SEKOU Santiago ([id number]) [facility] ([facility]) [address] [place] [address] RBC (Bld) [#/Vol] 4.50 x10*6/uL Normal 4.50-5.90 [facility] Comment on above: Performed By: #### 5 8410-2 #### SEKOU GASPAR L ([id number]) [facility] ([facility]) [address] [place] [address] WBC (Bld) [#/Vol] 5.5 x10*3/uL Normal 4.4-11.3 [facility] Comment on above: Performed By: #### 5 8410-2 #### SEKOU Santiago ([id number]) [facility] ([facility]) [address] [place] [address] ECG 12-LEADon 02-10-2024 ECG 12-LEAD Ventricular Rate 71 Atrial Rate 71 P-R Interval 136 QRS Duration 82 Q-T Interval 384 QTC Calculation(Bazett) 417 P [place] 17 R [place] 19 T [place] 16 QRS Count 12 Q Onset 221 P Onset 153 P Offset 201 T Offset 413 QTC Fredericia 406 Diagnosis Normal sinus rhythm Normal ECG When compared with ECG of 11-MAY-2023 08:41, Criteria for Lateral infarct are no longer Present Non-specific change in ST segment in Lateral leads T wave inversion less evident in Inferior leads T wave inversion no longer evident in Anterolateral leads QT has shortened Confirmed by Roel Gleason ([id number]) on 02/16/2024 12:13:44 AM Normal [facility] Calcium [Mass/volume] in Ser um or PlasmaOrdered By: Odilia Ernandez on 11-26-2023 Calcium [Mass/Vol] 9.4 mg/dL 8.6-10.3 [facility] Carbon dioxide, total [Moles /volume] in Serum or PlasmaOrdered By: Odilia Ernandez on 11-26-2023 CO2 [Moles/Vol] 25.6 mmol/L 21.0-31.0 [facility] Chloride [Moles/volume] in S autumn or PlasmaOrdered By: Odilia Ernandez on 11-26-2023 Chloride [Moles/Vol] 106 mmol/L 98-107 [facility] Creatine kinase [Enzymatic a ctivity/volume] in Serum or PlasmaOrdered By: Odilia Ernandez on 11-26-2023 CK [Catalytic activity/Vol] 73 U/L 30-223 [facility] Creatinine [Mass/volume] in Serum or PlasmaOrdered By: Odilia Ernandez on 11-26-2023 Creatinine [Mass/Vol] 1.09 mg/dL 0.70-1.30 [facility] Glucose [Mass/volume] in Ser um or PlasmaOrdered By: Odilia Ernandez on 11-26-2023 Glucose [Mass/Vol] 66 mg/dL 70-100 [facility] Comment on above: ADA recommended refe rence rangeRandom Glucose Reference Range is dependent on time and content of last meal. Glucose of more than 200 mg/dL in a nonstressed, ambulatory subject supports the diagnosis of Diabetes Mellitus. No Panel InformationOrdered By: Odilia Ernandez on 11-26-2023 Estimated GFR (CKD-EPI) > 60.0 mL/Min [facility] Creatinine Clearance (Chem N/A [facility] Potassium [Moles/volume] in Serum or PlasmaOrdered By: Odilia Ernandez on 11-26-2023 Potassium [Moles/Vol] 4.2 mmol/L 3.5-5.1 [facility] Serum or plasma anion gap de terminationOrdered By: Odilia Ernandez on 11-26-2023 Anion gap [Moles/Vol] 12.6 mmol/L 6.0-15.0 [facility] Sodium [Moles/volume] in Ser um or PlasmaOrdered By: Odilia Ernandez on 11-26-2023 Sodium [Moles/Vol] 140 mmol/L 136-145 [facility] Urea nitrogen [Mass/volume] in Serum or PlasmaOrdered By: Odilia Ernandez on 11-26-2023 Urea nitrogen [Mass/Vol] 12 mg/dL 7-25 [facility] Alanine aminotransferase [En zymatic activity/volume] in Serum or PlasmaOrdered By: Odilia Ernandez on 10-23-2023 ALT [Catalytic activity/Vol] 15 U/L [facility] Aspartate aminotransferase [ Enzymatic activity/volume] in Serum or PlasmaOrdered By: Odilia Ernandez on 10-23-2023 AST [Catalytic activity/Vol] 17 U/L 1339 [facility] Calcium [Mass/volume] in Ser um or PlasmaOrdered By: Odilia Ernandez on 10-23-2023 Calcium [Mass/Vol] 9.5 mg/dL 8.6-10.3 [facility] Carbon dioxide, total [Moles /volume] in Serum or PlasmaOrdered By: Odilia Ernandez on 10-23-2023 CO2 [Moles/Vol] 28.1 mmol/L 21.0-31.0 [facility] Chloride [Moles/volume] in S autumn or PlasmaOrdered By: Odilia Ernandez on 10-23-2023 Chloride [Moles/Vol] 103 mmol/L 98-107 [facility] Cholesterol [Mass/volume] in Serum or PlasmaOrdered By: Odilia Ernandez on 10-23-2023 Cholesterol [Mass/Vol] 139 mg/dL 140-200 [facility] Comment on above: Chol less than 200 m g/dl low riskChol 201-239 mg/dl borderline riskChol 240 mg/dl and greater high risk Cholesterol in LDL Calc [Mas s/Vol]Ordered By: Odilia Ernandez on 10-23-2023 Cholesterol in LDL [Mass/Vol] 61 mg/dL 0-100 [facility] Comment on above: LDL ATP III CLASSIFI CATIONLDL less than 100 mg/dL OptimalLDL 100-129 mg/dL Near or above optimalLDL 130-159 mg/dL Borderline highLDL 160-189 mg/dL HighLDL greater than 189 mg/dL Very high Cholesterol in VLDL Calc [Ma ss/Vol]Ordered By: Odilia Ernandez on 10-23-2023 Cholesterol in VLDL [Mass/Vol] 11 mg/dL [facility] Creatinine [Mass/volume] in Serum or PlasmaOrdered By: Odilia Ernandez on 10-23-2023 Creatinine [Mass/Vol] 1.00 mg/dL 0.70-1.30 [facility] Glucose [Mass/volume] in Ser um or PlasmaOrdered By: Odilia Ernandez on 10-23-2023 Glucose [Mass/Vol] 101 mg/dL 70-100 [facility] Comment on above: ADA recommended refe rence rangeRandom Glucose Reference Range is dependent on time and content of last meal. Glucose of more than 200 mg/dL in a nonstressed, ambulatory subject supports the diagnosis of Diabetes Mellitus. Natriuretic peptide B [Mass/ Vol]Ordered By: Odilia Ernandez on 10-23-2023 Natriuretic peptide B (Bld) [Mass/Vol] 370.0 pg/mL 5-100 [facility] No Panel InformationOrdered By: Odilia Ernandez on 10-23-2023 Estimated GFR (CKD-EPI) > 60.0 mL/Min [facility] Creatinine Clearance (Chem N/A [facility] Potassium [Moles/volume] in Serum or PlasmaOrdered By: Odilia Ernandez on 10-23-2023 Potassium [Moles/Vol] 4.7 mmol/L 3.5-5.1 [facility] Serum or plasma anion gap de terminationOrdered By: Odilia Ernandez on 10-23-2023 Anion gap [Moles/Vol] 11.6 mmol/L 6.0-15.0 [facility] Serum or plasma high density lipoprotein (HDL) cholesterol measurementOrdered By: Odilia Ernandez on 10-23-2023 Cholesterol in HDL [Mass/Vol] 66 mg/dL 23-92 [facility] Comment on above: HDL CHOL ATP-III CLA SSIFICATION Cardiovascular RiskHDL > or equal to 60 mg/dL LOWHDL < 40 mg/dL HIGH Serum or plasma total choles terol/high density lipoprotein (HDL) cholesterol mass ratOrdered By: Odilia Ernandez on 10-23-2023 Cholesterol.total/Autumn sterol in HDL [Mass ratio] 2.1 {ratio} <5.0 [facility] Sodium [Moles/volume] in Ser um or PlasmaOrdered By: Odilia Ernandez on 10-23-2023 Sodium [Moles/Vol] 138 mmol/L 136-145 [facility] Triglyceride [Mass/volume] i n Serum or PlasmaOrdered By: Odilia Ernadnez on 10-23-2023 Triglyceride [Mass/Vol] 59 mg/dL 0-149 [facility] Comment on above: TRIG ATP III CLASSIF ICATIONTRIG less than 150 mg/dL NormalTRIG 150-199 mg/dL Borderline highTRIG 200-500 mg/dL High TRIG greater than 500 mg/dL Very highStandard traceable to the Center for Disease Conrtrol and Prevention (CDC) test method. Urea nitrogen [Mass/volume] in Serum or PlasmaOrdered By: Odilia Ernandez on 10-23-2023 Urea nitrogen [Mass/Vol] 18 mg/dL 7-25 [facility] Calcium [Mass/volume] in Ser um or PlasmaOrdered By: Odilia Ernandez on 07-16-2023 Calcium [Mass/Vol] 9.6 mg/dL 8.6-10.3 [facility] Carbon dioxide, total [Moles /volume] in Serum or PlasmaOrdered By: Odilia Ernandez on 07-16-2023 CO2 [Moles/Vol] 24.3 mmol/L 21.0-31.0 [facility] Chloride [Moles/volume] in S autumn or PlasmaOrdered By: Odilia Ernandez on 07-16-2023 Chloride [Moles/Vol] 104 mmol/L 98-107 [facility] Creatinine [Mass/volume] in Serum or PlasmaOrdered By: Odilia Ernandez on 07-16-2023 Creatinine [Mass/Vol] 1.19 mg/dL 0.70-1.30 [facility] Glucose [Mass/volume] in Ser um or PlasmaOrdered By: Odilia Ernandez on 07-16-2023 Glucose [Mass/Vol] 124 mg/dL 70-100 [facility] Comment on above: ADA recommended refe rence rangeRandom Glucose Reference Range is dependent on time and content of last meal. Glucose of more than 200 mg/dL in a nonstressed, ambulatory subject supports the diagnosis of Diabetes Mellitus. Natriuretic peptide B [Mass/ Vol]Ordered By: Odilia Ernandez on 07-16-2023 Natriuretic peptide B (Bld) [Mass/Vol] 375.0 pg/mL 5-100 [facility] No Panel InformationOrdered By: Odilia Ernandez on 07-16-2023 Estimated GFR (CKD-EPI) > 60.0 mL/Min [facility] Creatinine Clearance (Chem N/A [facility] Potassium [Moles/volume] in Serum or PlasmaOrdered By: Odilia Ernandez on 07-16-2023 Potassium [Moles/Vol] 4.1 mmol/L 3.5-5.1 [facility] Serum or plasma anion gap de terminationOrdered By: Odilia Ernandez on 07-16-2023 Anion gap [Moles/Vol] 12.8 mmol/L 6.0-15.0 [facility] Sodium [Moles/volume] in Ser um or PlasmaOrdered By: Odilia Ernandez on 07-16-2023 Sodium [Moles/Vol] 137 mmol/L 136-145 [facility] Urea nitrogen [Mass/volume] in Serum or PlasmaOrdered By: Odilia Ernandez on 07-16-2023 Urea nitrogen [Mass/Vol] 15 mg/dL 7-25 [facility] XR Chest 2 Viewson 3 1. Minimal residual left-sided pleural effusion status post median sternotomy. No pneumothorax. Signed by: Guevara Goldstein 06/22/2023 11:38 AM Dictation workstation: [id number] MMODAL Interpreted By: Guevara Farrar, STUDY: XR CHEST 2 VIEWS; 06/21/2023 11:57 am INDICATION: Signs/Symptoms:postop protocol. COMPARISON: 05/11/2023. ACCESSION NUMBER(S): [id number] ORDERING CLINICIAN: OTTONIEL TREVION FINDINGS: CARDIOMEDIASTINAL SILHOUETTE: Patient is status post median sternotomy. LUNGS: Lungs are clear of focal airspace disease or edema. Small residual left. No pneumothorax. ABDOMEN: No remarkable upper abdominal findings. BONES: No acute osseous changes. MMODAL Xu Goldstein MD - 06/22/2023 Interpreted By: Guevara Goldstein, STUDY: XR CHEST 2 VIEWS; 06/21/2023 11:57 am INDICATION: Signs/Symptoms:postop protocol. COMPARISON: 05/11/2023. ACCESSION NUMBER(S): [id number] ORDERING CLINICIAN: OTTONIEL TREVINO FINDINGS: CARDIOMEDIASTINAL SILHOUETTE: Patient is status post median sternotomy. LUNGS: Lungs are clear of focal airspace disease or edema. Small residual left. No pneumothorax. ABDOMEN: No remarkable upper abdominal findings. BONES: No acute osseous changes. IMPRESSION: 1. Minimal residual left-sided pleural effusion status post median sternotomy. No pneumothorax. Signed by: Guevara Goldstein 06/22/2023 11:38 AM Dictation workstation: [id number] [facility] Work Phone: XR Chest 2 ViewsOrdered By: Xu Goldstein on 06-22-2023 [facility] Work Phone: [phone] XR Chest 2 Viewson Radiology Study observation (narrative) [facility] Work Phone: Electrocardiogram, 12-leadOr dered By: Geovany Olsen on 05-29-2023 Atrial Rate [address] [facility] Work Phone: [phone] P [place] [address] [facility] Work Phone: [phone] P Offset [address] [facility] Work Phone: [phone] P Onset [address] [facility] Work Phone: [phone] W[place] Interval [address] [facility] Work Phone: [phone] Q Onset [address] [facility] Work Phone: [phone] QRS Count [address] [facility] Work Phone: [phone] QRS Duration [address] [facility] Work Phone: [phone] QT Interval [address] [facility] Work Phone: [phone] QTC Calculation(Bazett) 490 ms U [facility] Work Phone: [phone] QTC Fredericia [address] [facility] Work Phone: [phone] R [place] [address] [facility] Work Phone: [phone] T [place] [address] [facility] Work Phone: [phone] T Offset [address] [facility] Work Phone: Ventricular Rate 100 BPM [facility] Work Phone: [facility] Work Phone: Electrocardiogram, 12-leadon 05-29-2023 Normal sinus rhythm Lateral infarct (cited on or before 03-MAY-2023) T wave abnormality, consider inferior ischemia T wave abnormality, consider anterior ischemia Abnormal ECG When compared with ECG of 03-MAY-2023 19:05, QRS axis Shifted left Criteria for Septal infarct are no longer Present T wave inversion more evident in Anterolateral leads Confirmed by Geovany Olsen ([id number]) on 05/29/2023 11:14:51 AM MUSE Geovany Olsen MD - 05/29/2023 Normal sinus rhythm Lateral infarct (cited on or before 03-MAY-2023) T wave abnormality, consider inferior ischemia T wave abnormality, consider anterior ischemia Abnormal ECG When compared with ECG of 03-MAY-2023 19:05, QRS axis Shifted left Criteria for Septal infarct are no longer Present T wave inversion more evident in Anterolateral leads Confirmed by Geovany Olsen ([id number]) on 05/29/2023 11:14:[address] [facility] Work Phone: CBC panel Auto (Bld)on 05-15 Erythrocyte distribution width (RBC) [Ratio] 13.5 % 11.5 - 14.5 % [facility] Hematocrit (Bld) [Volume fraction] 28.1 % Low 41.0 - 52.0 % [facility] Hemoglobin (Bld) [Mass/Vol] 8.8 g/dL Low 13.5 - 17.5 g/dL [facility] Interpretation and review of laboratory results Abnormal [facility] MCH (RBC) [Entitic mass] 29.6 pg 26.0 - 34.[address] [facility] MCHC (RBC) [Mass/Vol] 31.3 g/dL Low 32.0 - 36.0 g/dL [facility] MCV (RBC) [Entitic vol] 95 fL 80 - [address] [facility] Nucleated RBC/100 WBC (Bld) [Ratio] 0.0 % [facility] Platelet mean volume (Bld) [Entitic vol] 9.8 fL 7.5 - 11.[address] [facility] Platelets (Bld) [#/Vol] 496 10*3/uL High [facility] RBC (Bld) [#/Vol] 2.97 10*6/uL Low [facility] WBC (Bld) [#/Vol] 9.3 10*3/uL [facility] Magnesiumon 05-15-2023 Magnesium [Mass/Vol] 2.08 mg/dL 1.60 - 2.40 mg/dL [facility] Magnesium [Mass/Vol]on 05-15 Interpretation and review of laboratory results Normal [facility] No Panel Informationon 05-15 [facility] Renal function 2000 panelon 05-15-2023 Albumin BCP dye [Mass/Vol] 3.6 g/dL 3.4 - 5.0 g/dL [facility] Anion gap [Moles/Vol] 13 mmol/L 10 - 2 0 mmol/L [facility] Calcium [Mass/Vol] 9.5 mg/dL 8.6 - 10. 6 mg/dL [facility] Chloride [Moles/Vol] 102 mmol/L 98 - 10 7 mmol/L [facility] CO2 [Moles/Vol] 26 mmol/L 21 - 32 mmol/L [facility] Creatinine [Mass/Vol] 0.96 mg/dL 0.50 - 1.30 mg/dL [facility] GFR/1.73 sq M.predicted MDRD (S/P/Bld) [Vol rate/Area] - PINF [facility] Glucose [Mass/Vol] 123 mg/dL High 74 - 99 mg/dL [facility] Interpretation and review of laboratory results Abnormal [facility] Phosphate [Mass/Vol] 4.2 mg/dL 2.5 - 4 .9 mg/dL [facility] Potassium [Moles/Vol] 4.4 mmol/L 3.5 - 5.3 mmol/L [facility] Sodium [Moles/Vol] 137 mmol/L 136 - 145 mmol/L [facility] Urea nitrogen [Mass/Vol] 19 mg/dL 6 - 23 mg/dL [facility] CBC panel Auto (Bld)on 05-14 Erythrocyte distribution width (RBC) [Ratio] 13.3 % 11.5 - 14.5 % [facility] Hematocrit (Bld) [Volume fraction] 30.2 % Low 41.0 - 52.0 % [facility] Hemoglobin (Bld) [Mass/Vol] 9.6 g/dL Low 13.5 - 17.5 g/dL [facility] Interpretation and review of laboratory results Abnormal [facility] MCH (RBC) [Entitic mass] 30.7 pg 26.0 - 34.[address] [facility] MCHC (RBC) [Mass/Vol] 31.8 g/dL Low 32.0 - 36.0 g/dL [facility] MCV (RBC) [Entitic vol] 97 fL 80 - [address] [facility] Nucleated RBC/100 WBC (Bld) [Ratio] 0.0 % [facility] Platelet mean volume (Bld) [Entitic vol] 10.1 fL 7.5 - 11.[address] [facility] Platelets (Bld) [#/Vol] 455 10*3/uL High [facility] RBC (Bld) [#/Vol] 3.13 10*6/uL Low [facility] WBC (Bld) [#/Vol] 10.9 10*3/uL [facility] Magnesiumon 05-14-2023 Magnesium [Mass/Vol] 2.19 mg/dL 1.60 - 2.40 mg/dL [facility] No Panel Informationon 05-14 Interpretation and review of laboratory results Normal [facility] Renal function 2000 panelon 05-14-2023 Albumin BCP dye [Mass/Vol] 3.9 g/dL 3.4 - 5.0 g/dL [facility] Anion gap [Moles/Vol] 16 mmol/L 10 - 2 0 mmol/L [facility] Calcium [Mass/Vol] 9.5 mg/dL 8.6 - 10. 6 mg/dL [facility] Chloride [Moles/Vol] 98 mmol/L 98 - 10 7 mmol/L [facility] CO2 [Moles/Vol] 26 mmol/L 21 - 32 mmol/L [facility] Creatinine [Mass/Vol] 1.18 mg/dL 0.50 - 1.30 mg/dL [facility] GFR/1.73 sq M.predicted MDRD (S/P/Bld) [Vol rate/Area] 72 mL/min/{1.73_m2} - PINF [facility] Glucose [Mass/Vol] 89 mg/dL 74 - 99 mg/dL [facility] Phosphate [Mass/Vol] 4.2 mg/dL 2.5 - 4 .9 mg/dL [facility] Potassium [Moles/Vol] 4.3 mmol/L 3.5 - 5.3 mmol/L [facility] Sodium [Moles/Vol] 136 mmol/L 136 - 145 mmol/L [facility] Urea nitrogen [Mass/Vol] 20 mg/dL 6 - 23 mg/dL [facility] CBC panel Auto (Bld)on 05-13 Erythrocyte distribution width (RBC) [Ratio] 13.2 % 11.5 - 14.5 % [facility] Hematocrit (Bld) [Volume fraction] 30.6 % Low 41.0 - 52.0 % [facility] Hemoglobin (Bld) [Mass/Vol] 9.9 g/dL Low 13.5 - 17.5 g/dL [facility] Interpretation and review of laboratory results Abnormal [facility] MCH (RBC) [Entitic mass] 30.4 pg 26.0 - 34.[address] [facility] MCHC (RBC) [Mass/Vol] 32.4 g/dL 32.0 - 36.0 g/dL [facility] MCV (RBC) [Entitic vol] 94 fL 80 - [address] [facility] Nucleated RBC/100 WBC (Bld) [Ratio] 0.0 % [facility] Platelet mean volume (Bld) [Entitic vol] 10.0 fL 7.5 - 11.[address] [facility] Platelets (Bld) [#/Vol] 388 10*3/uL [facility] RBC (Bld) [#/Vol] 3.26 10*6/uL [facility] WBC (Bld) [#/Vol] 10.7 10*3/uL [facility] Magnesiumon 05-13-2023 Magnesium [Mass/Vol] 2.09 mg/dL 1.60 - 2.40 mg/dL [facility] Magnesium [Mass/Vol]on 05-13 Interpretation and review of laboratory results Normal [facility] No Panel Informationon 05-13 [facility] Renal function 2000 panelon 05-13-2023 Albumin BCP dye [Mass/Vol] 3.9 g/dL 3.4 - 5.0 g/dL [facility] Anion gap [Moles/Vol] 16 mmol/L 10 - 2 0 mmol/L [facility] Calcium [Mass/Vol] 9.3 mg/dL 8.6 - 10. 6 mg/dL [facility] Chloride [Moles/Vol] 96 mmol/L Low 98 - 10 7 mmol/L [facility] CO2 [Moles/Vol] 28 mmol/L 21 - 32 mmol/L [facility] Creatinine [Mass/Vol] 1.08 mg/dL 0.50 - 1.30 mg/dL [facility] GFR/1.73 sq M.predicted MDRD (S/P/Bld) [Vol rate/Area] 80 mL/min/{1.73_m2} - PINF [facility] Glucose [Mass/Vol] 94 mg/dL 74 - 99 mg/dL [facility] Interpretation and review of laboratory results Abnormal [facility] Phosphate [Mass/Vol] 4.1 mg/dL 2.5 - 4 .9 mg/dL [facility] Potassium [Moles/Vol] 4.0 mmol/L 3.5 - 5.3 mmol/L [facility] Sodium [Moles/Vol] 136 mmol/L 136 - 145 mmol/L [facility] Urea nitrogen [Mass/Vol] 17 mg/dL 6 - 23 mg/dL [facility] US Heart TransthoracicOrdere d By: Anjel Olson on 05-13-2023 LV A4C EF 27.9 [facility] Work Phone: [facility] Work Phone: US Heart Transthoracicon [facility] Work Phone: US.doppler Upper extremity v ein - lefton 05-13-2023 [facility] Work Phone: [facility] Work Phone: Radiology Study observation (narrative) [facility] Work Phone: CBC panel Auto (Bld)on 05-12 Erythrocyte distribution width (RBC) [Ratio] 13.0 % 11.5 - 14.5 % [facility] Hematocrit (Bld) [Volume fraction] 30.6 % Low 41.0 - 52.0 % [facility] Hemoglobin (Bld) [Mass/Vol] 10.1 g/dL Low 13.5 - 17.5 g/dL [facility] Interpretation and review of laboratory results Abnormal [facility] MCH (RBC) [Entitic mass] 30.7 pg 26.0 - 34.[address] [facility] MCHC (RBC) [Mass/Vol] 33.0 g/dL 32.0 - 36.0 g/dL [facility] MCV (RBC) [Entitic vol] 93 fL 80 - [address] [facility] Nucleated RBC/100 WBC (Bld) [Ratio] 0.0 % [facility] Platelet mean volume (Bld) [Entitic vol] 10.4 fL 7.5 - 11.[address] [facility] Platelets (Bld) [#/Vol] 338 10*3/uL [facility] RBC (Bld) [#/Vol] 3.29 10*6/uL Low [facility] WBC (Bld) [#/Vol] 8.9 10*3/uL [facility] Magnesiumon 05-12-2023 Magnesium [Mass/Vol] 2.05 mg/dL 1.60 - 2.40 mg/dL [facility] Magnesium [Mass/Vol]on 05-12 Interpretation and review of laboratory results Normal [facility] No Panel Informationon 05-12 [facility] Renal function 2000 panelon 05-12-2023 Albumin BCP dye [Mass/Vol] 3.8 g/dL 3.4 - 5.0 g/dL [facility] Anion gap [Moles/Vol] 16 mmol/L 10 - 2 0 mmol/L [facility] Calcium [Mass/Vol] 9.4 mg/dL 8.6 - 10. 6 mg/dL [facility] Chloride [Moles/Vol] 96 mmol/L Low 98 - 10 7 mmol/L [facility] CO2 [Moles/Vol] 27 mmol/L 21 - 32 mmol/L [facility] Creatinine [Mass/Vol] 1.01 mg/dL 0.50 - 1.30 mg/dL [facility] GFR/1.73 sq M.predicted MDRD (S/P/Bld) [Vol rate/Area] 86 mL/min/{1.73_m2} - PINF [facility] Glucose [Mass/Vol] 103 mg/dL High 74 - 99 mg/dL [facility] Interpretation and review of laboratory results Abnormal [facility] Phosphate [Mass/Vol] 4.0 mg/dL 2.5 - 4 .9 mg/dL [facility] Potassium [Moles/Vol] 4.4 mmol/L 3.5 - 5.3 mmol/L [facility] Sodium [Moles/Vol] 135 mmol/L Low 136 - 145 mmol/L [facility] Urea nitrogen [Mass/Vol] 17 mg/dL 6 - 23 mg/dL [facility] CBC panel Auto (Bld)on 05-11 Erythrocyte distribution width (RBC) [Ratio] 13.1 % 11.5 - 14.5 % [facility] Hematocrit (Bld) [Volume fraction] 33.6 % Low 41.0 - 52.0 % [facility] Hemoglobin (Bld) [Mass/Vol] 10.9 g/dL Low 13.5 - 17.5 g/dL [facility] Interpretation and review of laboratory results Abnormal [facility] MCH (RBC) [Entitic mass] 31.0 pg 26.0 - 34.[address] [facility] MCHC (RBC) [Mass/Vol] 32.4 g/dL 32.0 - 36.0 g/dL [facility] MCV (RBC) [Entitic vol] 96 fL 80 - [address] [facility] Nucleated RBC/100 WBC (Bld) [Ratio] 0.0 % [facility] Platelet mean volume (Bld) [Entitic vol] 10.6 fL 7.5 - 11.[address] [facility] Platelets (Bld) [#/Vol] 304 10*3/uL [facility] RBC (Bld) [#/Vol] 3.52 10*6/uL Low [facility] WBC (Bld) [#/Vol] 9.7 10*3/uL [facility] ECG 12-LEADon 05-11-2023 ECG 12-LEAD Ventricular Rate 100 Atrial Rate 100 P-R Interval 134 QRS Duration 94 Q-T Interval 380 QTC Calculation(Bazett) 490 P [place] 18 R [place] 68 T [place] 42 QRS Count 17 Q Onset 212 P Onset 145 P Offset 197 T Offset 402 QTC Fredericia 450 Diagnosis Normal sinus rhythm Lateral infarct (cited on or before 03-MAY-2023) T wave abnormality, consider inferior ischemia T wave abnormality, consider anterior ischemia Abnormal ECG When compared with ECG of 03-MAY-2023 19:05, QRS axis Shifted left Criteria for Septal infarct are no longer Present T wave inversion more evident in Anterolateral leads Confirmed by Geovany Olsen ([id number]) on 05/29/2023 11:14:51 AM Normal [facility] Glucose Test strip manual (B ld) [Mass/Vol]on 05-11-2023 Glucose [Mass/Vol] 130 mg/dL High 74 - 99 mg/dL [facility] Interpretation and review of laboratory results Abnormal [facility] Magnesiumon 05-11-2023 Magnesium [Mass/Vol] 2.01 mg/dL 1.60 - 2.40 mg/dL [facility] Magnesium [Mass/Vol]on 05-11 Interpretation and review of laboratory results Normal [facility] No Panel Informationon 05-11 [facility] Renal function 2000 panelon 05-11-2023 Albumin BCP dye [Mass/Vol] 4.1 g/dL 3.4 - 5.0 g/dL [facility] Anion gap [Moles/Vol] 18 mmol/L 10 - 2 0 mmol/L [facility] Calcium [Mass/Vol] 9.6 mg/dL 8.6 - 10. 6 mg/dL [facility] Chloride [Moles/Vol] 96 mmol/L Low 98 - 10 7 mmol/L [facility] CO2 [Moles/Vol] 26 mmol/L 21 - 32 mmol/L [facility] Creatinine [Mass/Vol] 1.04 mg/dL 0.50 - 1.30 mg/dL [facility] GFR/1.73 sq M.predicted MDRD (S/P/Bld) [Vol rate/Area] 83 mL/min/{1.73_m2} - PINF [facility] Glucose [Mass/Vol] 128 mg/dL High 74 - 99 mg/dL [facility] Interpretation and review of laboratory results Abnormal [facility] Phosphate [Mass/Vol] 4.4 mg/dL 2.5 - 4 .9 mg/dL [facility] Potassium [Moles/Vol] 4.6 mmol/L 3.5 - 5.3 mmol/L [facility] Sodium [Moles/Vol] 135 mmol/L Low 136 - 145 mmol/L [facility] Urea nitrogen [Mass/Vol] 18 mg/dL 6 - 23 mg/dL [facility] XR Chest 2 Views and Right o blique and Left obliqueon 05-11-20[address] [facility] [address] [facility] Work Phone: Radiology Study observation (narrative) [facility] Work Phone: XR Chest 2 Views and Right o blique and Left obliqueOrdered By: Mauro Lund on 05-11-2023 [facility] Work Phone: CBC panel Auto (Bld)on 05-10 Erythrocyte distribution width (RBC) [Ratio] 13.9 % 11.5 - 14.5 % [facility] Hematocrit (Bld) [Volume fraction] 30.7 % Low 41.0 - 52.0 % [facility] Hemoglobin (Bld) [Mass/Vol] 8.7 g/dL Low 13.5 - 17.5 g/dL [facility] Interpretation and review of laboratory results Abnormal [facility] MCH (RBC) [Entitic mass] 31.1 pg 26.0 - 34.[address] [facility] MCHC (RBC) [Mass/Vol] 28.3 g/dL Low 32.0 - 36.0 g/dL [facility] MCV (RBC) [Entitic vol] 110 fL High 80 - [address] [facility] Nucleated RBC/100 WBC (Bld) [Ratio] 0.0 % [facility] Platelet mean volume (Bld) [Entitic vol] 11.2 fL 7.5 - 11.[address] [facility] Platelets (Bld) [#/Vol] 128 10*3/uL Low [facility] RBC (Bld) [#/Vol] 2.80 10*6/uL Low [facility] WBC (Bld) [#/Vol] 10.8 10*3/uL [facility] Calcium, Ionizedon 3 Calcium.ionized (Bld) [Moles/Vol] 1.22 mmol/L 1.1 - 1.33 mmol/L [facility] Calcium, ionizedon 3 Calcium.ionized (Bld) [Moles/Vol] 1.14 mmol/L 1.1 - 1.33 mmol/L [facility] Calcium.ionized (Bld) [Moles /Vol]on 05-10-2023 Interpretation and review of laboratory results Normal [facility] Interpretation and review of laboratory results Normal [facility] Glucose Test strip manual (B ld) [Mass/Vol]on 05-10-2023 Glucose [Mass/Vol] 121 mg/dL High 74 - 99 mg/dL [facility] Interpretation and review of laboratory results Abnormal [facility] Glucose [Mass/Vol] 115 mg/dL High 74 - 99 mg/dL [facility] Interpretation and review of laboratory results Abnormal [facility] Glucose [Mass/Vol] 96 mg/dL 74 - 99 mg/dL [facility] Interpretation and review of laboratory results Normal [facility] Magnesiumon 05-10-2023 Magnesium [Mass/Vol] 2.09 mg/dL 1.60 - 2.40 mg/dL [facility] Magnesium [Mass/Vol] 1.96 mg/dL 1.60 - 2.40 mg/dL [facility] Magnesium [Mass/Vol]on 05-10 Interpretation and review of laboratory results Normal [facility] Interpretation and review of laboratory results Normal [facility] No Panel Informationon 05-10 Blood Expiration Date May 29, 2023 2 3:[address] [facility] B[facility] 5100 [facility] PRODUCT CODE [id number] [facility] Unit ABO O [facility] Unit RH Positive [facility] UNIT VOLUME 350 [facility] XM INTEP COMP [facility] Prepare RBC: 4 Unitson 05-10 Blood Expiration Date May 28, 2023 2 3:[address] [facility] Unit Number [id number] [facility] Unit Number [id number] [facility] Unit Number [id number] [facility] Unit Number [id number] [facility] Renal function 2000 panelon 05-10-2023 Albumin BCP dye [Mass/Vol] 3.7 g/dL 3.4 - 5.0 g/dL [facility] Anion gap [Moles/Vol] 18 mmol/L 10 - 2 0 mmol/L [facility] Calcium [Mass/Vol] 9.0 mg/dL 8.6 - 10. 6 mg/dL [facility] Chloride [Moles/Vol] 99 mmol/L 98 - 10 7 mmol/L [facility] CO2 [Moles/Vol] 22 mmol/L 21 - 32 mmol/L [facility] Creatinine [Mass/Vol] 0.90 mg/dL 0.50 - 1.30 mg/dL [facility] GFR/1.73 sq M.predicted MDRD (S/P/Bld) [Vol rate/Area] - PINF [facility] Glucose [Mass/Vol] 140 mg/dL High 74 - 99 mg/dL [facility] Interpretation and review of laboratory results Abnormal [facility] Phosphate [Mass/Vol] 3.4 mg/dL 2.5 - 4 .9 mg/dL [facility] Potassium [Moles/Vol] 3.8 mmol/L 3.5 - 5.3 mmol/L [facility] Sodium [Moles/Vol] 135 mmol/L Low 136 - 145 mmol/L [facility] Urea nitrogen [Mass/Vol] 19 mg/dL 6 - 23 mg/dL [facility] Albumin BCP dye [Mass/Vol] 3.3 g/dL Low 3.4 - 5.0 g/dL [facility] Anion gap [Moles/Vol] 12 mmol/L 10 - 2 0 mmol/L [facility] Calcium [Mass/Vol] 8.5 mg/dL Low 8.6 - 10. 6 mg/dL [facility] Chloride [Moles/Vol] 107 mmol/L 98 - 10 7 mmol/L [facility] CO2 [Moles/Vol] 21 mmol/L 21 - 32 mmol/L [facility] Creatinine [Mass/Vol] 0.79 mg/dL 0.50 - 1.30 mg/dL [facility] GFR/1.73 sq M.predicted MDRD (S/P/Bld) [Vol rate/Area] - PINF [facility] Glucose [Mass/Vol] 104 mg/dL High 74 - 99 mg/dL [facility] Interpretation and review of laboratory results Abnormal [facility] Phosphate [Mass/Vol] 2.2 mg/dL Low 2.5 - 4 .9 mg/dL [facility] Potassium [Moles/Vol] 4.4 mmol/L 3.5 - 5.3 mmol/L [facility] Sodium [Moles/Vol] 136 mmol/L 136 - 145 mmol/L [facility] Urea nitrogen [Mass/Vol] 22 mg/dL 6 - 23 mg/dL [facility] XR Chest Single viewon 05-10 [facility] MM[facility]AL [facility] Work Phone: [facility] Work Phone: Radiology Study observation (narrative) [facility] Work Phone: ACT Coag (Bld)on 05-09-2023 Interpretation and review of laboratory results Abnormal [facility] Interpretation and review of laboratory results Abnormal [facility] Interpretation and review of laboratory results Normal [facility] ACTIVATED CLOTTING TIME HIGH on 05-09-2023 ACT Coag (Bld) 90 s [facility] ACT Coag (Bld) [address] [facility] ACT Coag (Bld) [address] [facility] ACT Coag (Bld) [address] [facility] ACT Coag (Bld) [address] [facility] ACT Coag (Bld) [address] [facility] CBC panel Auto (Bld)on 05-09 Erythrocyte distribution width (RBC) [Ratio] 13.7 % 11.5 - 14.5 % [facility] Hematocrit (Bld) [Volume fraction] 30.1 % Low 41.0 - 52.0 % [facility] Hemoglobin (Bld) [Mass/Vol] 9.8 g/dL Low 13.5 - 17.5 g/dL [facility] Interpretation and review of laboratory results Abnormal [facility] MCH (RBC) [Entitic mass] 30.9 pg 26.0 - 34.[address] [facility] MCHC (RBC) [Mass/Vol] 32.6 g/dL 32.0 - 36.0 g/dL [facility] MCV (RBC) [Entitic vol] 95 fL 80 - [address] [facility] Nucleated RBC/100 WBC (Bld) [Ratio] 0.0 % [facility] Platelet mean volume (Bld) [Entitic vol] 11.9 fL High 7.5 - 11.[address] [facility] Platelets (Bld) [#/Vol] 144 10*3/uL Low [facility] RBC (Bld) [#/Vol] 3.17 10*6/uL Low [facility] WBC (Bld) [#/Vol] 11.8 10*3/uL [facility] Erythrocyte distribution width (RBC) [Ratio] 13.5 % 11.5 - 14.5 % [facility] Hematocrit (Bld) [Volume fraction] 28.0 % Low 41.0 - 52.0 % [facility] Hemoglobin (Bld) [Mass/Vol] 9.3 g/dL Low 13.5 - 17.5 g/dL [facility] Interpretation and review of laboratory results Abnormal [facility] MCH (RBC) [Entitic mass] 31.3 pg 26.0 - 34.[address] [facility] MCHC (RBC) [Mass/Vol] 33.2 g/dL 32.0 - 36.0 g/dL [facility] MCV (RBC) [Entitic vol] 94 fL 80 - [address] [facility] Nucleated RBC/100 WBC (Bld) [Ratio] 0.0 % [facility] Platelet mean volume (Bld) [Entitic vol] 11.3 fL 7.5 - 11.[address] [facility] Platelets (Bld) [#/Vol] 142 10*3/uL [facility] RBC (Bld) [#/Vol] 2.97 10*6/uL [facility] WBC (Bld) [#/Vol] 12.3 10*3/uL [facility] Calcium, Ionizedon Calcium.ionized (Bld) [Moles/Vol] 1.15 mmol/L 1.1 - 1.33 mmol/L [facility] Calcium, ionizedOrdered By: Amada Hernandez on 05-09-2023 Calcium.ionized (Bld) [Moles/Vol] 1.20 mmol/L 1.1 - 1.33 mmol/L [facility] Calcium.ionized (Bld) [Moles /Vol]on 05-09-2023 Interpretation and review of laboratory results Normal [facility] Calcium.ionized (Bld) [Moles /Vol]Ordered By: Amada Hernandez on 05-09-2023 Interpretation and review of laboratory results Normal [facility] Electrocardiogram 12 LeadOrd ered By: Geovany Olsen on 05-09-2023 Atrial Rate [address] [facility] Work Phone: P [place] [address] [facility] Work Phone: [phone] P Offset [address] [facility] Work Phone: [phone] P Onset [address] [facility] Work Phone: [phone] [place] Interval [address] [facility] Work Phone: [phone] Q Onset [address] [facility] Work Phone: [phone] QRS Count [address] [facility] Work Phone: [phone] QRS Duration [address] [facility] Work Phone: [phone] QT Interval [address] [facility] Work Phone: [phone] QTC Calculation(Bazett) 494 ms [facility] Work Phone: QTC Fredericia [address] [facility] Work Phone: R [place] [address] [facility] Work Phone: [phone] T [place] -[address] [facility] Work Phone: [phone] Offset [address] [facility] Work Phone: Ventricular Rate 78 BPM [facility] Work Phone: [phone] [facility] Work Phone: Electrocardiogram 12 Leadon 05-09-2023 [facility] Work Phone: Gas and Carbon monoxide and Electrolytes panel (BldA)on 05-09-2023 Anion gap 4 (BldA) [Moles/Vol] [address] [place] [address] Base excess Calc (Bld) [Moles/Vol] -7.9000 mmol/L Low -2.0 - 3.0 mmol/L [facility] Calcium.ionized (BldA) [Moles/Vol] 0.98 mmol/L Low 1.10 - 1.33 mmol/L [facility] Chloride (BldA) [Moles/Vol] 119 mmol/L High 98 - 107 mmol/L [facility] CO2 (Bld) [Partial pressure] 20 mm[Hg] Low [facility] Glucose [Mass/Vol] 91 mg/dL 74 - 99 mg/dL [facility] HCO3 (Bld) [Moles/Vol] 15.2 mmol/L Low 22.0 - 26.0 mmol/L [facility] Hematocrit Est (Bld) [Volume fraction] 13.0 % Low 41.0 - 52.0 % [facility] Hemoglobin (Bld) [Mass/Vol] 4.2 g/dL Critically low 13.5 - 17.5 g/dL [facility] Interpretation and review of laboratory results Abnormal [facility] Lactate (BldA) [Moles/Vol] 0.7 mmol/L 0.4 - 2.0 mmol/L [facility] Oxygen (Bld) [Partial pressure] 86 mm[Hg] [facility] Oxyhemoglobin (BldA) [Mass fraction] 95.6 % 94.0 - 98.0 % [facility] pH (Bld) 7.49 [pH] High 7.38 - 7.[address] [facility] Potassium (BldA) [Moles/Vol] 2.5 mmol/L Critically low 3.5 - 5.3 mmol/L [facility] Sodium (BldA) [Moles/Vol] 142 mmol/L 136 - 145 mmol/L [facility] Anion gap 4 (BldA) [Moles/Vol] 11 [facility] Base excess Calc (Bld) [Moles/Vol] -1.1000 mmol/L -2.0 - 3.0 mmol/L [facility] Calcium.ionized (BldA) [Moles/Vol] 1.16 mmol/L 1.10 - 1.33 mmol/L [facility] Chloride (BldA) [Moles/Vol] 110 mmol/L High 98 - 107 mmol/L [facility] CO2 (Bld) [Partial pressure] 28 mm[Hg] Low [facility] Glucose [Mass/Vol] 128 mg/dL High 74 - 99 mg/dL [facility] HCO3 (Bld) [Moles/Vol] 21.8 mmol/L Low 22.0 - 26.0 mmol/L [facility] Hematocrit Est (Bld) [Volume fraction] 22.0 % Low 41.0 - 52.0 % [facility] Hemoglobin (Bld) [Mass/Vol] 7.4 g/dL Low 13.5 - 17.5 g/dL [facility] Interpretation and review of laboratory results Abnormal [facility] Lactate (BldA) [Moles/Vol] 1.0 mmol/L 0.4 - 2.0 mmol/L [facility] Oxygen (Bld) [Partial pressure] 90 mm[Hg] [facility] Oxyhemoglobin (BldA) [Mass fraction] 97.7 % 94.0 - 98.0 % [facility] pH (Bld) 7.50 [pH] High 7.38 - 7.[address] [facility] Potassium (BldA) [Moles/Vol] 3.1 mmol/L Low 3.5 - 5.3 mmol/L [facility] Sodium (BldA) [Moles/Vol] 140 mmol/L 136 - 145 mmol/L [facility] Glucose Test strip manual (B ld) [Mass/Vol]on 05-09-2023 Glucose [Mass/Vol] 120 mg/dL High 74 - 99 mg/dL [facility] Interpretation and review of laboratory results Abnormal [facility] Glucose [Mass/Vol] 124 mg/dL High 74 - 99 mg/dL [facility] Interpretation and review of laboratory results Abnormal [facility] Glucose [Mass/Vol] 122 mg/dL High 74 - 99 mg/dL [facility] Interpretation and review of laboratory results Abnormal [facility] Glucose [Mass/Vol] 132 mg/dL High 74 - 99 mg/dL [facility] Interpretation and review of laboratory results Abnormal [facility] Glucose [Mass/Vol] 151 mg/dL High 74 - 99 mg/dL [facility] Interpretation and review of laboratory results Abnormal [facility] Magnesiumon 05-09-2023 Magnesium [Mass/Vol] 2.28 mg/dL 1.60 - 2.40 mg/dL [facility] Magnesium [Mass/Vol] 2.29 mg/dL 1.60 - 2.40 mg/dL [facility] Magnesium [Mass/Vol]on 05-09 Interpretation and review of laboratory results Normal [facility] Interpretation and review of laboratory results Normal [facility] No Panel Informationon 05-09 [facility] Renal function 2000 panelon 05-09-2023 Albumin BCP dye [Mass/Vol] 3.6 g/dL 3.4 - 5.0 g/dL [facility] Anion gap [Moles/Vol] 17 mmol/L 10 - 2 0 mmol/L [facility] Calcium [Mass/Vol] 8.9 mg/dL 8.6 - 10. 6 mg/dL [facility] Chloride [Moles/Vol] 107 mmol/L 98 - 10 7 mmol/L [facility] CO2 [Moles/Vol] 20 mmol/L Low 21 - 32 mmol/L [facility] Creatinine [Mass/Vol] 0.99 mg/dL 0.50 - 1.30 mg/dL [facility] GFR/1.73 sq M.predicted MDRD (S/P/Bld) [Vol rate/Area] 88 mL/min/{1.73_m2} - PINF [facility] Glucose [Mass/Vol] 103 mg/dL High 74 - 99 mg/dL [facility] Interpretation and review of laboratory results Abnormal [facility] Phosphate [Mass/Vol] 2.9 mg/dL 2.5 - 4 .9 mg/dL [facility] Potassium [Moles/Vol] 3.3 mmol/L Low 3.5 - 5.3 mmol/L [facility] Sodium [Moles/Vol] 141 mmol/L 136 - 145 mmol/L [facility] Urea nitrogen [Mass/Vol] 27 mg/dL High 6 - 23 mg/dL [facility] Albumin BCP dye [Mass/Vol] 3.6 g/dL 3.4 - 5.0 g/dL [facility] Anion gap [Moles/Vol] 15 mmol/L 10 - 2 0 mmol/L [facility] Calcium [Mass/Vol] 9.0 mg/dL 8.6 - 10. 6 mg/dL [facility] Chloride [Moles/Vol] 107 mmol/L 98 - 10 7 mmol/L [facility] CO2 [Moles/Vol] 23 mmol/L 21 - 32 mmol/L [facility] Creatinine [Mass/Vol] 1.04 mg/dL 0.50 - 1.30 mg/dL [facility] GFR/1.73 sq M.predicted MDRD (S/P/Bld) [Vol rate/Area] 83 mL/min/{1.73_m2} - PINF [facility] Glucose [Mass/Vol] 138 mg/dL High 74 - 99 mg/dL [facility] Interpretation and review of laboratory results Abnormal [facility] Phosphate [Mass/Vol] 3.6 mg/dL 2.5 - 4 .9 mg/dL [facility] Potassium [Moles/Vol] 3.4 mmol/L Low 3.5 - 5.3 mmol/L [facility] Sodium [Moles/Vol] 142 mmol/L 136 - 145 mmol/L [facility] Urea nitrogen [Mass/Vol] 27 mg/dL High 6 - 23 mg/dL [facility] XR Abdomen Single viewon [facility] Work Phone: [phone] [facility] Work Phone: XR Chest Single viewon 05-09 [facility] Work Phone: [facility] Work Phone: [phone] [facility] Work Phone: [facility] Work Phone: Radiology Study observation (narrative) [facility] Work Phone: ACT Coag (Bld)on 05-08-2023 Interpretation and review of laboratory results Abnormal [facility] Interpretation and review of laboratory results Abnormal [facility] Interpretation and review of laboratory results Normal [facility] ACTIVATED CLOTTING TIME HIGH on 05-08-2023 ACT Coag (Bld) 94 s [facility] ACT Coag (Bld) [address] [facility] ACT Coag (Bld) [address] [facility] ACT Coag (Bld) [address] [facility] ACT Coag (Bld) [address] [facility] ACT Coag (Bld) [address] [facility] CALCIUM, IONIZEDon 3 Calcium.ionized (Bld) [Moles/Vol] 1.10 mmol/L 1.1 - 1.33 mmol/L [facility] CBC panel Auto (Bld)on 05-08 Erythrocyte distribution width (RBC) [Ratio] 13.8 % 11.5 - 14.5 % [facility] Hematocrit (Bld) [Volume fraction] 32.1 % Low 41.0 - 52.0 % [facility] Hemoglobin (Bld) [Mass/Vol] 10.5 g/dL Low 13.5 - 17.5 g/dL [facility] Interpretation and review of laboratory results Abnormal [facility] MCH (RBC) [Entitic mass] 30.6 pg 26.0 - 34.[address] [facility] MCHC (RBC) [Mass/Vol] 32.7 g/dL 32.0 - 36.0 g/dL [facility] MCV (RBC) [Entitic vol] 94 fL 80 - [address] [facility] Nucleated RBC/100 WBC (Bld) [Ratio] 0.0 % [facility] Platelet mean volume (Bld) [Entitic vol] 11.4 fL 7.5 - 11.[address] [facility] Platelets (Bld) [#/Vol] 158 10*3/uL [facility] RBC (Bld) [#/Vol] 3.43 10*6/uL Low [facility] WBC (Bld) [#/Vol] 13.0 10*3/uL High [facility] Erythrocyte distribution width (RBC) [Ratio] 13.5 % 11.5 - 14.5 % [facility] Hematocrit (Bld) [Volume fraction] 31.4 % Low 41.0 - 52.0 % [facility] Hemoglobin (Bld) [Mass/Vol] 10.3 g/dL Low 13.5 - 17.5 g/dL [facility] Interpretation and review of laboratory results Abnormal [facility] MCH (RBC) [Entitic mass] 30.6 pg 26.0 - 34.[address] [facility] MCHC (RBC) [Mass/Vol] 32.8 g/dL 32.0 - 36.0 g/dL [facility] MCV (RBC) [Entitic vol] 93 fL 80 - [address] [facility] Nucleated RBC/100 WBC (Bld) [Ratio] 0.0 % [facility] Platelet mean volume (Bld) [Entitic vol] 11.0 fL 7.5 - 11.[address] [facility] Platelets (Bld) [#/Vol] 143 10*3/uL Low [facility] RBC (Bld) [#/Vol] 3.37 10*6/uL [facility] WBC (Bld) [#/Vol] 9.4 10*3/uL [facility] Calcium, IonizedOrdered By: Remy Ernandez on 05-08-2023 Calcium.ionized (Bld) [Moles/Vol] 1.12 mmol/L 1.1 - 1.33 mmol/L [facility] Calcium, ionizedon Calcium.ionized (Bld) [Moles/Vol] 1.11 mmol/L 1.1 - 1.33 mmol/L [facility] Calcium.ionized (Bld) [Moles /Vol]on 05-08-2023 Interpretation and review of laboratory results Normal [facility] Interpretation and review of laboratory results Normal [facility] Calcium.ionized (Bld) [Moles /Vol]Ordered By: Remy Ernandez on 05-08-2023 Interpretation and review of laboratory results Normal [facility] Carboxyhemoglobin (BldA) [Ma ss fraction]on 05-08-2023 Deoxyhemoglobin (BldA) [Mass fraction] 0.5 % 0.0 - 5.0 % [facility] Methemoglobin (BldA) [Mass fraction] 0.9 % 0.0 - 1.5 % [facility] Deoxyhemoglobin (BldA) [Mass fraction] 0.6 % 0.0 - 5.0 % [facility] Methemoglobin (BldA) [Mass fraction] 0.5 % 0.0 - 1.5 % [facility] Deoxyhemoglobin (BldA) [Mass fraction] 0.7 % 0.0 - 5.0 % [facility] Methemoglobin (BldA) [Mass fraction] 0.9 % 0.0 - 1.5 % [facility] Deoxyhemoglobin (BldA) [Mass fraction] 0.4 % 0.0 - 5.0 % [facility] Methemoglobin (BldA) [Mass fraction] 0.3 % 0.0 - 1.5 % [facility] Deoxyhemoglobin (BldA) [Mass fraction] 0.4 % 0.0 - 5.0 % [facility] Methemoglobin (BldA) [Mass fraction] 0.6 % 0.0 - 1.5 % [facility] Deoxyhemoglobin (BldA) [Mass fraction] 1.0 % 0.0 - 5.0 % [facility] Methemoglobin (BldA) [Mass fraction] 0.9 % 0.0 - 1.5 % [facility] Deoxyhemoglobin (BldA) [Mass fraction] 2.7 % 0.0 - 5.0 % [facility] Methemoglobin (BldA) [Mass fraction] 0.6 % 0.0 - 1.5 % [facility] Carboxyhemoglobin (BldV) [Ma ss fraction]on 05-08-2023 Methemoglobin (BldV) [Mass fraction] 0.7 % 0.0 - 1.5 % [facility] Methemoglobin (BldV) [Mass fraction] [facility] Coox Panel, Arterial Unsolic itedon 05-08-2023 Carboxyhemoglobin (BldA) [Mass fraction] 1.0 % [facility] Carboxyhemoglobin (BldA) [Mass fraction] 0.7 % [facility] Carboxyhemoglobin (BldA) [Mass fraction] 0.8 % [facility] Carboxyhemoglobin (BldA) [Mass fraction] 0.7 % [facility] Carboxyhemoglobin (BldA) [Mass fraction] 0.8 % [facility] Carboxyhemoglobin (BldA) [Mass fraction] 0.5 % [facility] Carboxyhemoglobin (BldA) [Mass fraction] 1.1 % [facility] Coox Panel, Venous Unsolicit edon 05-08-2023 Carboxyhemoglobin (BldV) [Mass fraction] 0.9 % [facility] Carboxyhemoglobin (BldV) [Mass fraction] [facility] Fibrinogenon 05-08-2023 Fibrinogen Coag (PPP) [Mass/Vol] 383 mg/dL 200 - 400 mg/dL [facility] Fibrinogen Coag (PPP) [Mass/ Vol]on 05-08-2023 Interpretation and review of laboratory results Normal [facility] Gas and Carbon monoxide and Electrolytes panel (BldA)on 05-08-2023 Anion gap 4 (BldA) [Moles/Vol] 13 [facility] Base excess Calc (Bld) [Moles/Vol] 0.0 mmol/L -2.0 - 3.0 mmol/L [facility] Calcium.ionized (BldA) [Moles/Vol] 1.17 mmol/L 1.10 - 1.33 mmol/L [facility] Chloride (BldA) [Moles/Vol] 108 mmol/L High 98 - 107 mmol/L [facility] CO2 (Bld) [Partial pressure] 28 mm[Hg] Low [facility] Glucose [Mass/Vol] 161 mg/dL High 74 - 99 mg/dL [facility] HCO3 (Bld) [Moles/Vol] 22.3 mmol/L 22.0 - 26.0 mmol/L [facility] Hematocrit Est (Bld) [Volume fraction] 31.0 % Low 41.0 - 52.0 % [facility] Hemoglobin (Bld) [Mass/Vol] 10.3 g/dL Low 13.5 - 17.5 g/dL [facility] Interpretation and review of laboratory results Abnormal [facility] Lactate (BldA) [Moles/Vol] 2.1 mmol/L High 0.4 - 2.0 mmol/L [facility] Oxygen (Bld) [Partial pressure] 71 mm[Hg] Low [facility] Oxyhemoglobin (BldA) [Mass fraction] 93.1 % Low 94.0 - 98.0 % [facility] pH (Bld) 7.51 [pH] High 7.38 - 7.[address] [facility] Potassium (BldA) [Moles/Vol] 3.5 mmol/L 3.5 - 5.3 mmol/L [facility] Sodium (BldA) [Moles/Vol] 140 mmol/L 136 - 145 mmol/L [facility] Anion gap 4 (BldA) [Moles/Vol] 14 [facility] Base excess Calc (Bld) [Moles/Vol] -1.1000 mmol/L -2.0 - 3.0 mmol/L [facility] Calcium.ionized (BldA) [Moles/Vol] 1.14 mmol/L 1.10 - 1.33 mmol/L [facility] Chloride (BldA) [Moles/Vol] 108 mmol/L High 98 - 107 mmol/L [facility] CO2 (Bld) [Partial pressure] 27 mm[Hg] Low [facility] Glucose [Mass/Vol] 160 mg/dL High 74 - 99 mg/dL [facility] HCO3 (Bld) [Moles/Vol] 21.1 mmol/L Low 22.0 - 26.0 mmol/L [facility] Hematocrit Est (Bld) [Volume fraction] 35.0 % Low 41.0 - 52.0 % [facility] Hemoglobin (Bld) [Mass/Vol] 11.5 g/dL Low 13.5 - 17.5 g/dL [facility] Interpretation and review of laboratory results Abnormal [facility] Lactate (BldA) [Moles/Vol] 1.9 mmol/L 0.4 - 2.0 mmol/L [facility] Oxygen (Bld) [Partial pressure] 71 mm[Hg] Low [facility] Oxyhemoglobin (BldA) [Mass fraction] 93.1 % Low 94.0 - 98.0 % [facility] pH (Bld) 7.50 [pH] High 7.38 - 7.[address] [facility] Potassium (BldA) [Moles/Vol] 3.8 mmol/L 3.5 - 5.3 mmol/L [facility] Sodium (BldA) [Moles/Vol] 139 mmol/L 136 - 145 mmol/L [facility] Anion gap 4 (BldA) [Moles/Vol] [address] [facility] Base excess Calc (Bld) [Moles/Vol] 1.8 mmol/L -2.0 - 3.0 mmol/L [facility] Calcium.ionized (BldA) [Moles/Vol] 1.18 mmol/L 1.10 - 1.33 mmol/L [facility] Chloride (BldA) [Moles/Vol] 108 mmol/L High 98 - 107 mmol/L [facility] CO2 (Bld) [Partial pressure] 48 mm[Hg] High [facility] Glucose [Mass/Vol] 157 mg/dL High 74 - 99 mg/dL [facility] HCO3 (Bld) [Moles/Vol] 27.7 mmol/L High 22.0 - 26.0 mmol/L [facility] Hematocrit Est (Bld) [Volume fraction] 36.0 % Low 41.0 - 52.0 % [facility] Inhaled oxygen concentration 100 % [facility] Lactate (BldA) [Moles/Vol] 1.3 mmol/L 0.4 - 2.0 mmol/L [facility] Oxygen (Bld) [Partial pressure] 252 mm[Hg] High [facility] pH (Bld) 7.37 [pH] Low 7.38 - 7.[address] [facility] Potassium (BldA) [Moles/Vol] 4.8 mmol/L 3.5 - 5.3 mmol/L [facility] Sodium (BldA) [Moles/Vol] 136 mmol/L 136 - 145 mmol/L [facility] Anion gap 4 (BldA) [Moles/Vol] 10 [facility] Base excess Calc (Bld) [Moles/Vol] 0.8 mmol/L -2.0 - 3.0 mmol/L [facility] Calcium.ionized (BldA) [Moles/Vol] 1.10 mmol/L 1.10 - 1.33 mmol/L [facility] Chloride (BldA) [Moles/Vol] 105 mmol/L 98 - 107 mmol/L [facility] CO2 (Bld) [Partial pressure] 43 mm[Hg] High [facility] Glucose [Mass/Vol] 194 mg/dL High 74 - 99 mg/dL [facility] HCO3 (Bld) [Moles/Vol] 26.0 mmol/L 22.0 - 26.0 mmol/L [facility] Hematocrit Est (Bld) [Volume fraction] 34.0 % Low 41.0 - 52.0 % [facility] Inhaled oxygen concentration 70 % [facility] Lactate (BldA) [Moles/Vol] 1.7 mmol/L 0.4 - 2.0 mmol/L [facility] Oxygen (Bld) [Partial pressure] 295 mm[Hg] High [facility] pH (Bld) 7.39 [pH] 7.38 - 7.[address] [facility] Potassium (BldA) [Moles/Vol] 5.6 mmol/L High 3.5 - 5.3 mmol/L [facility] Sodium (BldA) [Moles/Vol] 135 mmol/L Low 136 - 145 mmol/L [facility] Anion gap 4 (BldA) [Moles/Vol] 10 [facility] Base excess Calc (Bld) [Moles/Vol] 1.3 mmol/L -2.0 - 3.0 mmol/L [facility] Calcium.ionized (BldA) [Moles/Vol] 1.12 mmol/L 1.10 - 1.33 mmol/L [facility] Chloride (BldA) [Moles/Vol] 104 mmol/L 98 - 107 mmol/L [facility] CO2 (Bld) [Partial pressure] 44 mm[Hg] High [facility] Glucose [Mass/Vol] 192 mg/dL High 74 - 99 mg/dL [facility] HCO3 (Bld) [Moles/Vol] 26.6 mmol/L High 22.0 - 26.0 mmol/L [facility] Hematocrit Est (Bld) [Volume fraction] 35.0 % Low 41.0 - 52.0 % [facility] Inhaled oxygen concentration 70 % [facility] Lactate (BldA) [Moles/Vol] 1.5 mmol/L 0.4 - 2.0 mmol/L [facility] Oxygen (Bld) [Partial pressure] 223 mm[Hg] High [facility] pH (Bld) 7.39 [pH] 7.38 - 7.[address] [facility] Potassium (BldA) [Moles/Vol] 4.8 mmol/L 3.5 - 5.3 mmol/L [facility] Sodium (BldA) [Moles/Vol] 136 mmol/L 136 - 145 mmol/L [facility] Anion gap 4 (BldA) [Moles/Vol] [address] [facility] Base excess Calc (Bld) [Moles/Vol] 3.2 mmol/L High -2.0 - 3.0 mmol/L [facility] Calcium.ionized (BldA) [Moles/Vol] 1.07 mmol/L Low 1.10 - 1.33 mmol/L [facility] Chloride (BldA) [Moles/Vol] 104 mmol/L 98 - 107 mmol/L [facility] CO2 (Bld) [Partial pressure] 42 mm[Hg] [facility] Glucose [Mass/Vol] 207 mg/dL High 74 - 99 mg/dL [facility] HCO3 (Bld) [Moles/Vol] 27.9 mmol/L High 22.0 - 26.0 mmol/L [facility] Hematocrit Est (Bld) [Volume fraction] 35.0 % Low 41.0 - 52.0 % [facility] Inhaled oxygen concentration 70 % [facility] Lactate (BldA) [Moles/Vol] 1.4 mmol/L 0.4 - 2.0 mmol/L [facility] Oxygen (Bld) [Partial pressure] 268 mm[Hg] High [facility] pH (Bld) 7.43 [pH] High 7.38 - 7.[address] [facility] Potassium (BldA) [Moles/Vol] 4.5 mmol/L 3.5 - 5.3 mmol/L [facility] Sodium (BldA) [Moles/Vol] 135 mmol/L Low 136 - 145 mmol/L [facility] Anion gap 4 (BldA) [Moles/Vol] [address] [facility] Base excess Calc (Bld) [Moles/Vol] 0.0 mmol/L -2.0 - 3.0 mmol/L [facility] Calcium.ionized (BldA) [Moles/Vol] 1.13 mmol/L 1.10 - 1.33 mmol/L [facility] Chloride (BldA) [Moles/Vol] 102 mmol/L 98 - 107 mmol/L [facility] CO2 (Bld) [Partial pressure] 49 mm[Hg] High [facility] Glucose [Mass/Vol] 258 mg/dL High 74 - 99 mg/dL [facility] HCO3 (Bld) [Moles/Vol] 26.4 mmol/L High 22.0 - 26.0 mmol/L [facility] Hematocrit Est (Bld) [Volume fraction] 41.0 % 41.0 - 52.0 % [facility] Inhaled oxygen concentration 100 % [facility] Lactate (BldA) [Moles/Vol] 1.0 mmol/L 0.4 - 2.0 mmol/L [facility] Oxygen (Bld) [Partial pressure] 385 mm[Hg] High [facility] pH (Bld) 7.34 [pH] Low 7.38 - 7.[address] [facility] Potassium (BldA) [Moles/Vol] 3.8 mmol/L 3.5 - 5.3 mmol/L [facility] Sodium (BldA) [Moles/Vol] 134 mmol/L Low 136 - 145 mmol/L [facility] Anion gap 4 (BldA) [Moles/Vol] [address] [facility] Base excess Calc (Bld) [Moles/Vol] 1.5 mmol/L -2.0 - 3.0 mmol/L [facility] Calcium.ionized (BldA) [Moles/Vol] 1.12 mmol/L 1.10 - 1.33 mmol/L [facility] Chloride (BldA) [Moles/Vol] 104 mmol/L 98 - 107 mmol/L [facility] CO2 (Bld) [Partial pressure] 46 mm[Hg] High [facility] Glucose [Mass/Vol] 238 mg/dL High 74 - 99 mg/dL [facility] HCO3 (Bld) [Moles/Vol] 27.2 mmol/L High 22.0 - 26.0 mmol/L [facility] Hematocrit Est (Bld) [Volume fraction] 41.0 % 41.0 - 52.0 % [facility] Inhaled oxygen concentration 100 % [facility] Interpretation and review of laboratory results Abnormal [facility] Lactate (BldA) [Moles/Vol] 0.8 mmol/L 0.4 - 2.0 mmol/L [facility] Oxygen (Bld) [Partial pressure] 181 mm[Hg] High [facility] pH (Bld) 7.38 [pH] 7.38 - 7.[address] [facility] Potassium (BldA) [Moles/Vol] 3.9 mmol/L 3.5 - 5.3 mmol/L [facility] Sodium (BldA) [Moles/Vol] 133 mmol/L Low 136 - 145 mmol/L [facility] Anion gap 4 (BldA) [Moles/Vol] 10 [facility] Base excess Calc (Bld) [Moles/Vol] 3.7 mmol/L High -2.0 - 3.0 mmol/L [facility] Calcium.ionized (BldA) [Moles/Vol] 1.19 mmol/L 1.10 - 1.33 mmol/L [facility] Chloride (BldA) [Moles/Vol] 103 mmol/L 98 - 107 mmol/L [facility] CO2 (Bld) [Partial pressure] 39 mm[Hg] [facility] Glucose [Mass/Vol] 214 mg/dL High 74 - 99 mg/dL [facility] HCO3 (Bld) [Moles/Vol] 27.7 mmol/L High 22.0 - 26.0 mmol/L [facility] Hematocrit Est (Bld) [Volume fraction] 44.0 % 41.0 - 52.0 % [facility] Inhaled oxygen concentration 21 % [facility] Interpretation and review of laboratory results Abnormal [facility] Lactate (BldA) [Moles/Vol] 1.1 mmol/L 0.4 - 2.0 mmol/L [facility] Oxygen (Bld) [Partial pressure] 80 mm[Hg] Low [facility] pH (Bld) 7.46 [pH] High 7.38 - 7.[address] [facility] Potassium (BldA) [Moles/Vol] 4.2 mmol/L 3.5 - 5.3 mmol/L [facility] Sodium (BldA) [Moles/Vol] 136 mmol/L 136 - 145 mmol/L [facility] Anion gap 4 (BldA) [Moles/Vol] 11 [facility] Base excess Calc (Bld) [Moles/Vol] 0.1 mmol/L -2.0 - 3.0 mmol/L [facility] Calcium.ionized (BldA) [Moles/Vol] 1.17 mmol/L 1.10 - 1.33 mmol/L [facility] Chloride (BldA) [Moles/Vol] 109 mmol/L High 98 - 107 mmol/L [facility] CO2 (Bld) [Partial pressure] 32 mm[Hg] Low [facility] Glucose [Mass/Vol] 142 mg/dL High 74 - 99 mg/dL [facility] HCO3 (Bld) [Moles/Vol] 23.3 mmol/L 22.0 - 26.0 mmol/L [facility] Hematocrit Est (Bld) [Volume fraction] 33.0 % Low 41.0 - 52.0 % [facility] Hemoglobin (Bld) [Mass/Vol] 11.1 g/dL Low 13.5 - 17.5 g/dL [facility] Interpretation and review of laboratory results Abnormal [facility] Lactate (BldA) [Moles/Vol] 1.2 mmol/L 0.4 - 2.0 mmol/L [facility] Oxygen (Bld) [Partial pressure] 70 mm[Hg] Low [facility] Oxyhemoglobin (BldA) [Mass fraction] 94.0 % 94.0 - 98.0 % [facility] pH (Bld) 7.47 [pH] High 7.38 - 7.[address] [facility] Potassium (BldA) [Moles/Vol] 4.3 mmol/L 3.5 - 5.3 mmol/L [facility] Sodium (BldA) [Moles/Vol] 139 mmol/L 136 - 145 mmol/L [facility] Gas panel (BldMV)on 05-08-20 23 Base excess Calc (BldMV) [Moles/Vol] 0.3 mmol/L -2.0 - 3.0 mmol/L [facility] CO2 (BldMV) [Partial pressure] [address] [facility] HCO3 (BldMV) [Moles/Vol] 23.5 mmol/L 22.0 - 26.0 mmol/L [facility] Interpretation and review of laboratory results Abnormal [facility] Oxygen (BldMV) [Partial pressure] 45 [facility] Oxygen saturation in Mixed venous blood 75 % 45 - 75 % [facility] Oxyhemoglobin (BldMV) [Mass fraction] 73.6 % 45.0 - 75.0 % [facility] pH (BldMV) 7.46 pH High 7.33 - 7.43 pH [facility] Base excess Calc (BldMV) [Moles/Vol] 1.1 mmol/L -2.0 - 3.0 mmol/L [facility] CO2 (BldMV) [Partial pressure] [address] [facility] HCO3 (BldMV) [Moles/Vol] 25.1 mmol/L 22.0 - 26.0 mmol/L [facility] Oxygen (BldMV) [Partial pressure] 40 [facility] Oxygen saturation in Mixed venous blood 61 % 45 - 75 % [facility] Oxyhemoglobin (BldMV) [Mass fraction] 60.6 % 45.0 - 75.0 % [facility] pH (BldMV) 7.44 pH High 7.33 - 7.[address] [facility] Anion gap 4 (BldMV) [Moles/Vol] 11 [facility] Base excess Calc (BldMV) [Moles/Vol] 0.4 mmol/L -2.0 - 3.0 mmol/L [facility] Calcium.ionized (BldMV) [Moles/Vol] 1.16 mmol/L 1.10 - 1.33 mmol/L [facility] Chloride [Moles/Vol] 109 mmol/L High 98 - 10 7 mmol/L [facility] CO2 (BldMV) [Partial pressure] [address] [facility] Glucose [Mass/Vol] 133 mg/dL High 74 - 99 mg/dL [facility] HCO3 (BldMV) [Moles/Vol] 24.6 mmol/L 22.0 - 26.0 mmol/L [facility] Hematocrit Est (Bld) [Volume fraction] 32.0 % Low 41.0 - 52.0 % [facility] Hemoglobin (Bld) [Mass/Vol] 10.7 g/dL Low 13.5 - 17.5 g/dL [facility] Interpretation and review of laboratory results Abnormal [facility] Lactate (BldMV) [Moles/Vol] 1.1 mmol/L 0.4 - 2.0 mmol/L [facility] Oxygen (BldMV) [Partial pressure] 36 [facility] Oxygen saturation in Mixed venous blood 55 % 45 - 75 % [facility] Oxyhemoglobin (BldMV) [Mass fraction] 53.9 % 45.0 - 75.0 % [facility] pH (BldMV) 7.43 pH 7.33 - 7.[address] [facility] Potassium (BldMV) [Moles/Vol] 4.2 mmol/L 3.5 - 5.3 mmol/L [facility] Sodium (BldMV) [Moles/Vol] 140 mmol/L 136 - 145 mmol/L [facility] Gas panel (BldV)on 3 Anion gap 4 (BldV) [Moles/Vol] 10.0 mmol/L 10.0 - 25.0 mmol/L [facility] Base excess Calc (BldV) [Moles/Vol] 2.3 mmol/L -2.0 - 3.0 mmol/L [facility] Calcium.ionized (BldV) [Moles/Vol] 1.09 mmol/L Low 1.10 - 1.33 mmol/L [facility] Chloride (BldV) [Moles/Vol] 104 mmol/L 98 - 107 mmol/L [facility] CO2 (BldV) [Partial pressure] 49 mm[Hg] [facility] Glucose [Mass/Vol] 194 mg/dL High 74 - 99 mg/dL [facility] HCO3 (Bld) [Moles/Vol] 28.3 mmol/L High 22.0 - 26.0 mmol/L [facility] Hematocrit Est (Bld) [Volume fraction] 35.0 % Low 41.0 - 52.0 % [facility] Hemoglobin (Bld) [Mass/Vol] 11.6 g/dL Low 13.5 - 17.5 g/dL [facility] Inhaled oxygen concentration 70 % [facility] Interpretation and review of laboratory results Abnormal [facility] Lactate (BldV) [Moles/Vol] 1.4 mmol/L 0.4 - 2.0 mmol/L [facility] Oxygen (BldV) [Partial pressure] 46 mm[Hg] High [facility] Oxygen saturation in Venous blood 77 % High 45 - 75 % [facility] Oxyhemoglobin (BldV) [Mass fraction] 76.0 % High 45.0 - 75.0 % [facility] pH (BldV) 7.37 [pH] 7.33 - 7.[address] [facility] Potassium (BldV) [Moles/Vol] 6.8 mmol/L Critically high 3.5 - 5.3 mmol/L [facility] Sodium (BldV) [Moles/Vol] 135 mmol/L Low 136 - 145 mmol/L [facility] Anion gap 4 (BldV) [Moles/Vol] 9.0 mmol/L Low 10.0 - 25.0 mmol/L [facility] Base excess Calc (BldV) [Moles/Vol] 1.9 mmol/L -2.0 - 3.0 mmol/L [facility] Calcium.ionized (BldV) [Moles/Vol] 1.09 mmol/L Low 1.10 - 1.33 mmol/L [facility] Chloride (BldV) [Moles/Vol] 104 mmol/L 98 - 107 mmol/L [facility] CO2 (BldV) [Partial pressure] 50 mm[Hg] [facility] Glucose [Mass/Vol] 195 mg/dL High 74 - 99 mg/dL [facility] HCO3 (Bld) [Moles/Vol] 28.2 mmol/L High 22.0 - 26.0 mmol/L [facility] Hematocrit Est (Bld) [Volume fraction] [facility] Hemoglobin (Bld) [Mass/Vol] [facility] Inhaled oxygen concentration 70 % [facility] Lactate (BldV) [Moles/Vol] 1.4 mmol/L 0.4 - 2.0 mmol/L [facility] Oxygen (BldV) [Partial pressure] 45 mm[Hg] [facility] Oxygen saturation in Venous blood [facility] Oxyhemoglobin (BldV) [Mass fraction] [facility] pH (BldV) 7.36 [pH] 7.33 - 7.[address] [facility] Potassium (BldV) [Moles/Vol] 6.6 mmol/L Critically high 3.5 - 5.3 mmol/L [facility] Sodium (BldV) [Moles/Vol] 135 mmol/L Low 136 - 145 mmol/L [facility] Anion gap 4 (BldV) [Moles/Vol] 11.0 mmol/L 10.0 - 25.0 mmol/L [facility] Base excess Calc (BldV) [Moles/Vol] 1.5 mmol/L -2.0 - 3.0 mmol/L [facility] Calcium.ionized (BldV) [Moles/Vol] 1.15 mmol/L 1.10 - 1.33 mmol/L [facility] Chloride (BldV) [Moles/Vol] 107 mmol/L 98 - 107 mmol/L [facility] CO2 (BldV) [Partial pressure] 39 mm[Hg] Low [facility] Glucose [Mass/Vol] 135 mg/dL High 74 - 99 mg/dL [facility] HCO3 (Bld) [Moles/Vol] 25.9 mmol/L 22.0 - 26.0 mmol/L [facility] Hematocrit Est (Bld) [Volume fraction] 34.0 % Low 41.0 - 52.0 % [facility] Hemoglobin (Bld) [Mass/Vol] 11.4 g/dL Low 13.5 - 17.5 g/dL [facility] Interpretation and review of laboratory results Abnormal [facility] Lactate (BldV) [Moles/Vol] 1.7 mmol/L 0.4 - 2.0 mmol/L [facility] Oxygen (BldV) [Partial pressure] 42 mm[Hg] [facility] Oxygen saturation in Venous blood 58 % 45 - 75 % [facility] Oxyhemoglobin (BldV) [Mass fraction] 57.2 % 45.0 - 75.0 % [facility] pH (BldV) 7.43 [pH] 7.33 - 7.[address] [facility] Potassium (BldV) [Moles/Vol] 4.4 mmol/L 3.5 - 5.3 mmol/L [facility] Sodium (BldV) [Moles/Vol] 139 mmol/L 136 - 145 mmol/L [facility] Glucose Test strip manual (B ld) [Mass/Vol]on 05-08-2023 Glucose [Mass/Vol] 175 mg/dL High 74 - 99 mg/dL [facility] Interpretation and review of laboratory results Abnormal [facility] [facility] Glucose [Mass/Vol] 156 mg/dL High 74 - 99 mg/dL [facility] Interpretation and review of laboratory results Abnormal [facility] Glucose [Mass/Vol] 185 mg/dL High 74 - 99 mg/dL [facility] Interpretation and review of laboratory results Abnormal [facility] Glucose [Mass/Vol] 173 mg/dL High 74 - 99 mg/dL [facility] Interpretation and review of laboratory results Abnormal [facility] Glucose [Mass/Vol] 148 mg/dL High 74 - 99 mg/dL [facility] Interpretation and review of laboratory results Abnormal [facility] Glucose [Mass/Vol] 146 mg/dL High 74 - 99 mg/dL [facility] Interpretation and review of laboratory results Abnormal [facility] Glucose [Mass/Vol] 117 mg/dL High 74 - 99 mg/dL [facility] Interpretation and review of laboratory results Abnormal [facility] Laboratory - Chemistry and C hemistry - challengeon 05-08-2023 Oxyhemoglobin (BldA) [Mass fraction] 97.6 % 94.0 - 98.0 % [facility] Oxyhemoglobin (BldA) [Mass fraction] 98.2 % High 94.0 - 98.0 % [facility] Oxyhemoglobin (BldA) [Mass fraction] 97.6 % 94.0 - 98.0 % [facility] Oxyhemoglobin (BldA) [Mass fraction] 98.5 % High 94.0 - 98.0 % [facility] Oxyhemoglobin (BldA) [Mass fraction] 98.2 % High 94.0 - 98.0 % [facility] Oxyhemoglobin (BldA) [Mass fraction] 97.6 % 94.0 - 98.0 % [facility] Oxyhemoglobin (BldA) [Mass fraction] 95.6 % 94.0 - 98.0 % [facility] Laboratory - Hematology and Cell countson 05-08-2023 Hemoglobin (Bld) [Mass/Vol] 11.9 g/dL Low 13.5 - 17.5 g/dL [facility] Hemoglobin (Bld) [Mass/Vol] 11.3 g/dL Low 13.5 - 17.5 g/dL [facility] Hemoglobin (Bld) [Mass/Vol] 11.7 g/dL Low 13.5 - 17.5 g/dL [facility] Hemoglobin (Bld) [Mass/Vol] 11.5 g/dL Low 13.5 - 17.5 g/dL [facility] Hemoglobin (Bld) [Mass/Vol] 13.5 g/dL 13.5 - 17.5 g/dL [facility] Hemoglobin (Bld) [Mass/Vol] 13.8 g/dL 13.5 - 17.5 g/dL [facility] Hemoglobin (Bld) [Mass/Vol] 14.7 g/dL 13.5 - 17.5 g/dL [facility] Magnesiumon 05-08-2023 Magnesium [Mass/Vol] 2.47 mg/dL High 1.60 - 2.40 mg/dL [facility] Magnesium [Mass/Vol] 2.32 mg/dL 1.60 - 2.40 mg/dL [facility] Magnesium [Mass/Vol]on 05-08 Interpretation and review of laboratory results Normal [facility] No Panel Informationon 05-08 Interpretation and review of laboratory results Abnormal [facility] Interpretation and review of laboratory results Abnormal [facility] Interpretation and review of laboratory results Abnormal [facility] Interpretation and review of laboratory results Abnormal [facility] Interpretation and review of laboratory results Abnormal [facility] Interpretation and review of laboratory results Abnormal [facility] Interpretation and review of laboratory results Abnormal [facility] PT and aPTT panel Coag (PPP) on 05-08-2023 aPTT Coag (PPP) [Time] 27 s [facility] INR Coag (PPP) [Relative time] 1.2 {INR} High 0.9 - 1.1 [facility] Interpretation and review of laboratory results Abnormal [facility] PT Coag (PPP) [Time] 13.5 s High [facility] Peripheral Blockon 3 [facility] Work Phone: [facility] Work Phone: Renal function 2000 panelon 05-08-2023 Albumin BCP dye [Mass/Vol] 4.0 g/dL 3.4 - 5.0 g/dL [facility] Anion gap [Moles/Vol] 19 mmol/L 10 - 2 0 mmol/L [facility] Calcium [Mass/Vol] 9.2 mg/dL 8.6 - 10. 6 mg/dL [facility] Chloride [Moles/Vol] 107 mmol/L 98 - 10 7 mmol/L [facility] CO2 [Moles/Vol] 22 mmol/L 21 - 32 mmol/L [facility] Creatinine [Mass/Vol] 1.25 mg/dL 0.50 - 1.30 mg/dL [facility] GFR/1.73 sq M.predicted MDRD (S/P/Bld) [Vol rate/Area] 67 mL/min/{1.73_m2} - PINF [facility] Glucose [Mass/Vol] 155 mg/dL High 74 - 99 mg/dL [facility] Phosphate [Mass/Vol] 2.9 mg/dL 2.5 - 4 .9 mg/dL [facility] Potassium [Moles/Vol] 3.8 mmol/L 3.5 - 5.3 mmol/L [facility] Sodium [Moles/Vol] 144 mmol/L 136 - 145 mmol/L [facility] Urea nitrogen [Mass/Vol] 22 mg/dL 6 - 23 mg/dL [facility] Albumin BCP dye [Mass/Vol] 3.2 g/dL Low 3.4 - 5.0 g/dL [facility] Anion gap [Moles/Vol] 16 mmol/L 10 - 2 0 mmol/L [facility] Calcium [Mass/Vol] 8.6 mg/dL 8.6 - 10. 6 mg/dL [facility] Chloride [Moles/Vol] 109 mmol/L High 98 - 10 7 mmol/L [facility] CO2 [Moles/Vol] 22 mmol/L 21 - 32 mmol/L [facility] Creatinine [Mass/Vol] 1.26 mg/dL 0.50 - 1.30 mg/dL [facility] GFR/1.73 sq M.predicted MDRD (S/P/Bld) [Vol rate/Area] 66 mL/min/{1.73_m2} - PINF [facility] Glucose [Mass/Vol] 145 mg/dL High 74 - 99 mg/dL [facility] Interpretation and review of laboratory results Abnormal [facility] Phosphate [Mass/Vol] 4.1 mg/dL 2.5 - 4 .9 mg/dL [facility] Potassium [Moles/Vol] 4.2 mmol/L 3.5 - 5.3 mmol/L [facility] Sodium [Moles/Vol] 143 mmol/L 136 - 145 mmol/L [facility] Urea nitrogen [Mass/Vol] 18 mg/dL 6 - 23 mg/dL [facility] TEG Clot Global Profile Unso licitedon 05-08-2023 Clot angle TEG (Bld) [Angle] 66.0 deg 63.0 - 78.[address] [facility] Clot formation TEG (Bld) [Time] 2.1 min 0.8 - 2.[address] [facility] Clotting time after addition of heparinase TEG (Bld) 5.7 min 4.3 - 8.[address] [facility] Clotting time TEG (Bld) 5.7 min 4.6 - 9.[address] [facility] FLEV 376 mg/dL 278 - 581 mg/dL [facility] Maximum clot firmness TEG (Bld) [Length] 58.0 mm 52.0 - 69.[address] [facility] Maximum clot firmness TEG (Bld) [Length] 61.0 mm 52.0 - 70.[address] [facility] Maximum clot firmness TEG (Bld) [Length] 21.0 mm 15.0 - 32.[address] [facility] Test Comment post protamine [facility] XR Abdomen Single viewon Radiology Study observation (narrative) [facility] Work Phone: XR Chest Single viewon 05-08 Radiology Study observation (narrative) [facility] Work Phone: [facility] MMODAL [facility] MM[facility] Work Phone: [facility] Work Phone: [facility] MM[facility]AL [facility] MM[facility] Work Phone: [facility] Work Phone: Radiology Study observation (narrative) [facility] Work Phone: Radiology Study observation (narrative) [facility] Work Phone: Anesthesia Intraoperative Tr ansesophageal Echocardiogramon 05-07-[address] [facility] Work Phone: Anesthesia Intraoperative Tr ansesophageal EchocardiogramOrdered By: Cameron Rodas on 05-07-2023 [facility] Work Phone: CBC panel Auto (Bld)on 05-07 Erythrocyte distribution width (RBC) [Ratio] 13.4 % 11.5 - 14.5 % [facility] Hematocrit (Bld) [Volume fraction] 35.0 % Low 41.0 - 52.0 % [facility] Hemoglobin (Bld) [Mass/Vol] 11.7 g/dL Low 13.5 - 17.5 g/dL [facility] Interpretation and review of laboratory results Abnormal [facility] MCH (RBC) [Entitic mass] 31.2 pg 26.0 - 34.[address] [facility] MCHC (RBC) [Mass/Vol] 33.4 g/dL 32.0 - 36.0 g/dL [facility] MCV (RBC) [Entitic vol] 93 fL 80 - [address] [facility] Nucleated RBC/100 WBC (Bld) [Ratio] 0.0 % [facility] Platelet mean volume (Bld) [Entitic vol] 10.7 fL 7.5 - 11.[address] [facility] Platelets (Bld) [#/Vol] 145 10*3/uL Low [facility] RBC (Bld) [#/Vol] 3.75 10*6/uL Low [facility] WBC (Bld) [#/Vol] 13.7 10*3/uL High [facility] Gas and Carbon monoxide and Electrolytes panel (BldA)on 05-07-2023 Anion gap 4 (BldA) [Moles/Vol] 14 [facility] Base excess Calc (Bld) [Moles/Vol] -0.7000 mmol/L -2.0 - 3.0 mmol/L [facility] Calcium.ionized (BldA) [Moles/Vol] 1.20 mmol/L 1.10 - 1.33 mmol/L [facility] Chloride (BldA) [Moles/Vol] 106 mmol/L 98 - 107 mmol/L [facility] CO2 (Bld) [Partial pressure] 36 mm[Hg] Low [facility] Glucose [Mass/Vol] 138 mg/dL High 74 - 99 mg/dL [facility] HCO3 (Bld) [Moles/Vol] 23.4 mmol/L 22.0 - 26.0 mmol/L [facility] Hematocrit Est (Bld) [Volume fraction] 38.0 % Low 41.0 - 52.0 % [facility] Hemoglobin (Bld) [Mass/Vol] 12.7 g/dL Low 13.5 - 17.5 g/dL [facility] Interpretation and review of laboratory results Abnormal [facility] Lactate (BldA) [Moles/Vol] 1.6 mmol/L 0.4 - 2.0 mmol/L [facility] Oxygen (Bld) [Partial pressure] 72 mm[Hg] Low [facility] Oxyhemoglobin (BldA) [Mass fraction] 92.6 % Low 94.0 - 98.0 % [facility] pH (Bld) 7.42 [pH] 7.38 - 7.[address] [facility] Potassium (BldA) [Moles/Vol] 4.7 mmol/L 3.5 - 5.3 mmol/L [facility] Sodium (BldA) [Moles/Vol] 139 mmol/L 136 - 145 mmol/L [facility] Calcium.ionized (BldA) [Moles/Vol] 1.30 mmol/L 1.10 - 1.33 mmol/L [facility] Chloride (BldA) [Moles/Vol] 106 mmol/L 98 - 107 mmol/L [facility] CO2 (Bld) [Partial pressure] 43 mm[Hg] High [facility] Glucose [Mass/Vol] 152 mg/dL High 74 - 99 mg/dL [facility] HCO3 (Bld) [Moles/Vol] 25.4 mmol/L 22.0 - 26.0 mmol/L [facility] Hematocrit Est (Bld) [Volume fraction] 29.0 % Low 41.0 - 52.0 % [facility] Lactate (BldA) [Moles/Vol] 2.3 mmol/L High 0.4 - 2.0 mmol/L [facility] Oxygen (Bld) [Partial pressure] 105 mm[Hg] High [facility] Oxyhemoglobin (BldA) [Mass fraction] 96.9 % 94.0 - 98.0 % [facility] pH (Bld) 7.38 [pH] 7.38 - 7.[address] [facility] Potassium (BldA) [Moles/Vol] 5.5 mmol/L High 3.5 - 5.3 mmol/L [facility] Sodium (BldA) [Moles/Vol] 136 mmol/L 136 - 145 mmol/L [facility] Laboratory - Hematology and Cell countson 05-07-2023 Hemoglobin (Bld) [Mass/Vol] 9.5 g/dL Low 13.5 - 17.5 g/dL [facility] Magnesiumon 05-07-2023 Magnesium [Mass/Vol] 2.58 mg/dL High 1.60 - 2.40 mg/dL [facility] No Panel Informationon 05-07 Interpretation and review of laboratory results Abnormal [facility] Renal function 2000 panelon 05-07-2023 Albumin BCP dye [Mass/Vol] 3.5 g/dL 3.4 - 5.0 g/dL [facility] Anion gap [Moles/Vol] 17 mmol/L 10 - 2 0 mmol/L [facility] Calcium [Mass/Vol] 8.9 mg/dL 8.6 - 10. 6 mg/dL [facility] Chloride [Moles/Vol] 107 mmol/L 98 - 10 7 mmol/L [facility] CO2 [Moles/Vol] 22 mmol/L 21 - 32 mmol/L [facility] Creatinine [Mass/Vol] 1.24 mg/dL 0.50 - 1.30 mg/dL [facility] GFR/1.73 sq M.predicted MDRD (S/P/Bld) [Vol rate/Area] 67 mL/min/{1.73_m2} - PINF [facility] Glucose [Mass/Vol] 141 mg/dL High 74 - 99 mg/dL [facility] Phosphate [Mass/Vol] 4.2 mg/dL 2.5 - 4 .9 mg/dL [facility] Potassium [Moles/Vol] 4.5 mmol/L 3.5 - 5.3 mmol/L [facility] Sodium [Moles/Vol] 141 mmol/L 136 - 145 mmol/L [facility] Urea nitrogen [Mass/Vol] 15 mg/dL 6 - 23 mg/dL [facility] XR Chest Single viewon 05-[address] [facility] Work Phone: Radiology Study observation (narrative) [facility] Work Phone: XR Chest Single viewOrdered By: Xu Goldstein on 05-07-2023 [facility] Work Phone: CBC AND DIFFERENTIALon 05-04 % AUTOMATED IMMATURE GRAN Canceled Normal [facility] Comment on above: Order Comment: TEST CBC AND DIFFERENTIAL WAS CANCELLED, 05/04/2023 14:24 DUPLICATE ORDER. Result Comment: Porsha ture Granulocyte Count (IG) includes promyelocytes, myelocytes and metamyelocytes but does not include bands. Percent differential counts (%) should be interpreted in the context of the absolute cell counts (cells/L). Performed By: #### C BCDF #### [facility] [address] [place] [address] % BASOPHIL Canceled Normal [facility] Comment on above: Order Comment: TEST CBC AND DIFFERENTIAL WAS CANCELLED, 05/04/2023 14:24 DUPLICATE ORDER. Performed By: #### C BCDF #### [facility] [address] [place] [address] % EOSINOPHIL Canceled Normal [facility] Comment on above: Order Comment: TEST CBC AND DIFFERENTIAL WAS CANCELLED, 05/04/2023 14:24 DUPLICATE ORDER. Performed By: #### C BCDF #### [facility] [address] [place] [address] % LYMPHOCYTE Canceled Normal [facility] Comment on above: Order Comment: TEST CBC AND DIFFERENTIAL WAS CANCELLED, 05/04/2023 14:24 DUPLICATE ORDER. Performed By: #### C BCDF #### [facility] [address] [place] [address] % MONOCYTE Canceled Normal [facility] Comment on above: Order Comment: TEST CBC AND DIFFERENTIAL WAS CANCELLED, 05/04/2023 14:24 DUPLICATE ORDER. Performed By: #### C BCDF #### [facility] [address] [place] [address] % NEUTROPHIL Canceled Normal [facility] Comment on above: Order Comment: TEST CBC AND DIFFERENTIAL WAS CANCELLED, 05/04/2023 14:24 DUPLICATE ORDER. Performed By: #### C BCDF #### [facility] [address] [place] [address] BASOPHIL Canceled Normal [facility] Comment on above: Order Comment: TEST CBC AND DIFFERENTIAL WAS CANCELLED, 05/04/2023 14:24 DUPLICATE ORDER. Performed By: #### C BCDF #### [facility] [address] [place] [address] DIFFERENTIAL Canceled Normal [facility] Comment on above: Order Comment: TEST CBC AND DIFFERENTIAL WAS CANCELLED, 05/04/2023 14:24 DUPLICATE ORDER. Performed By: #### C BCDF #### [facility] [address] [place] [address] EOSINOPHIL Canceled Normal [facility] Comment on above: Order Comment: TEST CBC AND DIFFERENTIAL WAS CANCELLED, 05/04/2023 14:24 DUPLICATE ORDER. Performed By: #### C BCDF #### [facility] [address] [place] [address] HCT Canceled Normal [facility] Comment on above: Order Comment: TEST CBC AND DIFFERENTIAL WAS CANCELLED, 05/04/2023 14:24 DUPLICATE ORDER. Performed By: #### C BCDF #### [facility] [address] [place] [address] HGB Canceled Normal [facility] Comment on above: Order Comment: TEST CBC AND DIFFERENTIAL WAS CANCELLED, 05/04/2023 14:24 DUPLICATE ORDER. Performed By: #### C BCDF #### [facility] [address] [place] [address] LYMPHOCYTE Canceled Normal [facility] Comment on above: Order Comment: TEST CBC AND DIFFERENTIAL WAS CANCELLED, 05/04/2023 14:24 DUPLICATE ORDER. Performed By: #### C BCDF #### [facility] [address] [place] [address] MCHC Canceled Normal [facility] Comment on above: Order Comment: TEST CBC AND DIFFERENTIAL WAS CANCELLED, 05/04/2023 14:24 DUPLICATE ORDER. Performed By: #### C BCDF #### [facility] [address] [place] [address] MCV Canceled Normal [facility] Comment on above: Order Comment: TEST CBC AND DIFFERENTIAL WAS CANCELLED, 05/04/2023 14:24 DUPLICATE ORDER. Performed By: #### C BCDF #### [facility] [address] [place] [address] MONOCYTE Canceled Normal [facility] Comment on above: Order Comment: TEST CBC AND DIFFERENTIAL WAS CANCELLED, 05/04/2023 14:24 DUPLICATE ORDER. Performed By: #### C BCDF #### [facility] [address] [place] [address] NEUTROPHIL Canceled Normal [facility] Comment on above: Order Comment: TEST CBC AND DIFFERENTIAL WAS CANCELLED, 05/04/2023 14:24 DUPLICATE ORDER. Performed By: #### C BCDF #### [facility] [address] [place] [address] NUCLEATED RBC Canceled Normal [facility] Comment on above: Order Comment: TEST CBC AND DIFFERENTIAL WAS CANCELLED, 05/04/2023 14:24 DUPLICATE ORDER. Performed By: #### C BCDF #### [facility] [address] [place] [address] PLT Canceled Normal [facility] Comment on above: Order Comment: TEST CBC AND DIFFERENTIAL WAS CANCELLED, 05/04/2023 14:24 DUPLICATE ORDER. Performed By: #### C BCDF #### [facility] [address] [place] [address] RBC Canceled Normal [facility] Comment on above: Order Comment: TEST CBC AND DIFFERENTIAL WAS CANCELLED, 05/04/2023 14:24 DUPLICATE ORDER. Performed By: #### C BCDF #### [facility] [address] [place] [address] RDW-CV Canceled Normal [facility] Comment on above: Order Comment: TEST CBC AND DIFFERENTIAL WAS CANCELLED, 05/04/2023 14:24 DUPLICATE ORDER. Performed By: #### C BCDF #### [facility] [address] [place] [address] WBC Canceled Normal [facility] Comment on above: Order Comment: TEST CBC AND DIFFERENTIAL WAS CANCELLED, 05/04/2023 14:24 DUPLICATE ORDER. Performed By: #### C BCDF #### [facility] [address] [place] [address] COMPREHENSIVE PANELon 2022 ALBUMIN Canceled Normal [facility] Comment on above: Order Comment: TEST COMPREHENSIVE PANEL WAS CANCELLED, 05/04/2023 14:24 DUPLICATE ORDER. Performed By: #### C MP #### [facility] [address] [place] [address] ALKALINE PHOSPHATASE Canceled Normal [facility] Comment on above: Order Comment: TEST COMPREHENSIVE PANEL WAS CANCELLED, 05/04/2023 14:24 DUPLICATE ORDER. Performed By: #### C MP #### [facility] [address] [place] [address] ALT Canceled Normal [facility] Comment on above: Order Comment: TEST COMPREHENSIVE PANEL WAS CANCELLED, 05/04/2023 14:24 DUPLICATE ORDER. Result Comment: Elaine ents treated with Sulfasalazine may generate falsely decreased results for ALT. Performed By: #### C MP #### [facility] [address] [place] [address] ANION GAP Canceled Normal [facility] Comment on above: Order Comment: TEST COMPREHENSIVE PANEL WAS CANCELLED, 05/04/2023 14:24 DUPLICATE ORDER. Performed By: #### C MP #### [facility] [address] [place] [address] AST Canceled Normal [facility] Comment on above: Order Comment: TEST COMPREHENSIVE PANEL WAS CANCELLED, 05/04/2023 14:24 DUPLICATE ORDER. Performed By: #### C MP #### [facility] [address] [place] [address] BICARBONATE Canceled Normal [facility] Comment on above: Order Comment: TEST COMPREHENSIVE PANEL WAS CANCELLED, 05/04/2023 14:24 DUPLICATE ORDER. Performed By: #### C MP #### [facility] [address] [place] [address] BILIRUBIN,TOTAL Canceled Normal [facility] Comment on above: Order Comment: TEST COMPREHENSIVE PANEL WAS CANCELLED, 05/04/2023 14:24 DUPLICATE ORDER. Performed By: #### C MP #### [facility] [address] [place] [address] CALCIUM Canceled Normal [facility] Comment on above: Order Comment: TEST COMPREHENSIVE PANEL WAS CANCELLED, 05/04/2023 14:24 DUPLICATE ORDER. Performed By: #### C MP #### [facility] [address] [place] [address] CHLORIDE Canceled Normal [facility] Comment on above: Order Comment: TEST COMPREHENSIVE PANEL WAS CANCELLED, 05/04/2023 14:24 DUPLICATE ORDER. Performed By: #### C MP #### [facility] [address] [place] [address] CREATININE Canceled Normal [facility] Comment on above: Order Comment: TEST COMPREHENSIVE PANEL WAS CANCELLED, 05/04/2023 14:24 DUPLICATE ORDER. Performed By: #### C MP #### [facility] [address] [place] [address] eGFR FEMALE Canceled Normal [facility] Comment on above: Order Comment: TEST COMPREHENSIVE PANEL WAS CANCELLED, 05/04/2023 14:24 DUPLICATE ORDER. Result Comment: CALC ULATIONS OF ESTIMATED GFR ARE PERFORMED USING THE 2020 CKD-EPI STUDY REFIT EQUATION WITHOUT THE RACE VARIABLE FOR THE IDMS-TRACEABLE CREATININE METHODS. https://jasn.asnjournals.org/content/earlyASN [email or web address] Performed By: #### C MP #### [facility] [address] [place] [address] eGFR MALE Canceled Normal [facility] Comment on above: Order Comment: TEST COMPREHENSIVE PANEL WAS CANCELLED, 05/04/2023 14:24 DUPLICATE ORDER. Result Comment: CALC ULATIONS OF ESTIMATED GFR ARE PERFORMED USING THE 2020 CKD-EPI STUDY REFIT EQUATION WITHOUT THE RACE VARIABLE FOR THE IDMS-TRACEABLE CREATININE METHODS. https://jasn.asnjournals.org/content/ [email or web address] Performed By: #### C MP #### [facility] [address] [place] [address] GLUCOSE Canceled Normal [facility] Comment on above: Order Comment: TEST COMPREHENSIVE PANEL WAS CANCELLED, 05/04/2023 14:24 DUPLICATE ORDER. Performed By: #### C MP #### [facility] [address] [place] [address] POTASSIUM Canceled Normal [facility] Comment on above: Order Comment: TEST COMPREHENSIVE PANEL WAS CANCELLED, 05/04/2023 14:24 DUPLICATE ORDER. Performed By: #### C MP #### [facility] [address] [place] [address] SODIUM Canceled Normal [facility] Comment on above: Order Comment: TEST COMPREHENSIVE PANEL WAS CANCELLED, 05/04/2023 14:24 DUPLICATE ORDER. Performed By: #### C MP #### [facility] [address] [place] [address] TOTAL PROTEIN Canceled Normal [facility] Comment on above: Order Comment: TEST COMPREHENSIVE PANEL WAS CANCELLED, 05/04/2023 14:24 DUPLICATE ORDER. Performed By: #### C MP #### [facility] [address] [place] [address] UREA NITROGEN Canceled Normal [facility] Comment on above: Order Comment: TEST COMPREHENSIVE PANEL WAS CANCELLED, 05/04/2023 14:24 DUPLICATE ORDER. Performed By: #### C MP #### [facility] [address] [place] [address] LDHon 05-04-2023 LDH Canceled Normal [facility] Comment on above: Order Comment: TEST LDH WAS CANCELLED, 05/04/2023 14:24 DUPLICATE ORDER. Performed By: #### H AUF #### [facility] [address] [place] [address] MAGNESIUMon 05-04-2023 MAGNESIUM Canceled Normal [facility] Comment on above: Order Comment: TEST MAGNESIUM WAS CANCELLED, 05/04/2023 14:24 DUPLICATE ORDER. Performed By: #### M G #### [facility] [address] [place] [address] PT/INRon 05-04-2023 PROTHROMBIN TIME Canceled Normal [facility] Comment on above: Order Comment: TEST PT/INR WAS CANCELLED, 05/04/2023 14:24 DUPLICATE ORDER. Result Comment: Note new reference range as of 01/22/2023 at 10:00am. Performed By: #### P TINR #### [facility] [address] [place] [address] PT, INR Canceled Normal [facility] Comment on above: Order Comment: TEST PT/INR WAS CANCELLED, 05/04/2023 14:24 DUPLICATE ORDER. Performed By: #### P TINR #### [facility] [address] [place] [address] Admission Risk Screen - Adul ton 05-03-2023 Admission Risk Screen - Adult Allergies: Allergies: No Known Allergies: Patient Verification: New W ID Band Applied in my Departmentyes Patient Identity Verified Bydriver's license/state ID ID Band FULL Name, include Middle, spelling matches patient's ID used for verificationyes ID Band Matches Patient ID used for Verficationyes ID Band MRN Matches EMR MRNyes Visitor Restriction: Coronavirus Visitor Restriction: Reasonable restrictions to in-person visitors will be observed due to current coronavirus pandemic. Travel History: COVID-19 Screening Completedno exposure or symptoms Travel or Exposure Past 30 DaysNO travel to International locations in the past 30 days Ebola AlertFor Ebola-like Symptoms: Isolate Patient and Notify Provider/Coating Engineer For Contact: Notify Provider/Coating Engineer Advance Directive: Advance Directive/DNRno Advance Directive Information Giveninformation requested from Social Work [facility] Fall Screen: History of falling (immediate or previous)no (0) Secondary Diagnosisyes (15) Intravenous Therapy/ Heparin/Saline Lockyes (20) Gait/Transferringnormal/b edrest/wheelchair (0) Ambulatory Aidsnone/bedrest/nurse assist (0) Mental Statusoriented to own ability (0) Score: Low risk (<25). Moderate risk (25-44). High risk (>44).35 [place] InterventionsMODERATE INTERVENTIONS: *Low Interventions Plus: * falls risk band/sticker applied to patient, *yellow non-skid footwear, *instruct to call for assistance before getting out of bed, *bed/chair/bedside commode/toilet alarms, *sensory devices/ambulatory aides available and in reach, *medications reviewed for potential side effects and care planning. Family Violence Screen: Are you or have you been threatened or abused physically, emotionally, or sexually by anyoneno Do you feel UNSAFE going back to the place where you are livingno Clinical assessment: Are there any apparent signs of injuries/behaviors that could be related to abuse/neglectno Social Service Consult for abuse/neglect needed this visitno Functional Screen: Functional Screen: In the recent/past 2-4 weeks, patient or family have noticedno issues that require a speech/language consult at this time AM-PAC- Basic Mobility/Daily Activity: Patient baseline bedboundno Learning Assessment (Patient): Patient is Able to be Assessed for Learningyes Factors Influencing Readiness to Learnacuteness of illness Factors that Impact Ability to Learnvisual problems Devices/Methods Used to Communicateglasses Learning Preferenceswritten material; verbal instruction; group instruction Cultural Considerationsnone Developmental Considerationsnone Evangelical Considerationsnone Learning Assessment (Other Learner): Other learner availableno Depression Screen: During the past month, have you often been bothered by feeling down, depressed or hopelessno During the past month, have you often had little interest or pleasure in doing thingsno Have you had any thoughts of harming anyone elseno [place] Suicide: Risk Screen Not Applicable/Able to Answerable to be screened In the Past Month: Have you wished you were or could go to sleep and not wake upno In the Past Month: Have you had any actual thoughts of killing yourselfno Lifetime: Have you ever done, started to do, or prepared to do anything to end your lifeno [place] Suicide Risknegative Adult Nutrition Screen: Have you recently lost weight without tryingno Have you been eating poorly because of a decreased appetiteno Malnutrition Screening Tool Score0 Malnutrition Screening Tool RiskMST = 0 or 1 Not at risk. Eating well with little or no weight loss Nutrition Consult needed this visitno Can Patient Participate in Room Serviceyes Patient requires Paper Dishes/Plastic Utensilsno Pain Screen: Pain Scalenumerical 0-10 Pain Scale Educationteaching provided Current Pain Level0 = None Acceptable Pain Level0 = None Expression of Pain (nonverbal)none Chronic Painyes Chronic Pain Commenttakes percocet Spiritual Screen: Are there any cultural, spiritual, zoroastrianism practices/values/needs that are important for us to knowno CAGE: Is this an injured patient at a Trauma Center ([facility]/[place]/ [place]): no Vaccinations: Vaccination - Influenza Vaccination Screen: Is it flu season (between and November 02)Yes Screening for identified contraindications to influenza vaccinationno contraindications identified Influenza vaccine indicatedyes Vaccination - Pneumonia Vaccination Screen: Patient has received a previous pneumonia vaccine:no/unknown... Immunocompetent persons with underlying chronic conditions or reside in termite control technician care facilitiesnone of these conditions Persons with Functional or Anatomic Asplenianone of these conditions Immunocompromised Personsnone of these conditions Pneumonia vaccine NOT ind (more content not included)... Normal [facility] CBCon 05-03-2023 Erythrocyte distribution width (RBC) [Ratio] 13.2 % Normal 11.5 - 14.5 [facility] Comment on above: Performed By: #### C BC #### [facility] [address] [place] [address] Hematocrit (Bld) [Volume fraction] 39.6 % Low 41.0 - 52.0 [facility] Comment on above: Performed By: #### C BC #### [facility] [address] [place] [address] Hemoglobin (Bld) [Mass/Vol] 13.1 g/dL Low 13.5 - 17.5 [facility] Comment on above: Performed By: #### C BC #### [facility] [address] [place] [address] MCHC (RBC) [Mass/Vol] 33.1 g/dL Normal 32.0 - 36.0 [facility] Comment on above: Performed By: #### C BC #### [facility] [address] [place] [address] MCV (RBC) [Entitic vol] 93 fL Normal 80 - 100 U [facility] Comment on above: Performed By: #### C BC #### [facility] [address] [place] [address] NUCLEATED RBC 0.0 /100 WBC Normal 0.0-0.0 [facility] Comment on above: Performed By: #### C BC #### [facility] [address] [place] [address] Platelets (Bld) [#/Vol] 301 10*3/uL Normal 150 - 450 [facility] Comment on above: Performed By: #### C BC #### [facility] [address] [place] [address] RBC 4.27 x10E12/L Low 4.50 - 5.90 [facility] Comment on above: Performed By: #### C BC #### [facility] [address] [place] [address] WBC (Bld) [#/Vol] 9.3 10*3/uL Normal 4.4 - 11.3 [facility] Comment on above: Performed By: #### C BC #### [facility] [address] [place] [address] HEPARIN ASSAY,UFHon 05-03- 23 HEPARIN ASSAY,UFH 0.2 IU/mL Normal [facility] Comment on above: Result Comment: The therapeutic reference range for UFH may be either 0.3-0.6 IU/mL or 0.3-0.7 IU/mL based on the clinical setting for anticoagulant therapy and the associated nomogram used. For heparin dosing guidelines based on clinical scenario and Heparin Assay results, please refer to local Pharmacy and [facility] Guidelines for Anticoagulation therapy available on the [facility] intranet at: [email or web address] [email or web address] Performed By: #### H AUF #### [facility] [address] [address] [place] [id number] Heparin assay, UFHon 023 Heparin unfractionated Chromogenic method Qn (PPP) 0.2 {IU/mL} [facility] [employer] 250 DO Work Phone: Comment on above: The therapeutic refe rence range for UFH may be either 0.3-0.6 IU/mL or 0.3-0.7 IU/mL based on the clinical setting for anticoagulant therapy and the associated nomogram used. For heparin dosing guidelines based on clinical scenario and Heparin Assay results, please refer to local Pharmacy and [facility] Guidelines for Anticoagulation therapy available on the [facility] intranet at:[email or web address] LDHon 05-03-2023 LDH 603 U/L High 84 - 246 [facility] Comment on above: Performed By: #### H AUF #### [facility] [address] [place] [address] Laboratory - Blood bankon ABO group Nom (Bld) O MP-No [facility] [place] [facility] [place] [address] DO Work Phone: [phone] Blood group antibody screen Ql Negative -[facility] [place] [address] DO Work Phone: Rh immune globulin screen (Bld) [Interp] Positive [facility] [address] DO Work Phone: Laboratory - Chemistry and C hemistry - challengeon 05-03-2023 LDH [Catalytic activity/Vol] 603 U/L above high threshold 84 - 246 [facility] Harini Helm DO Work Phone: Laboratory - Hematology and Cell countson 05-03-2023 Erythrocyte distribution width (RBC) [Ratio] 13.2 % See Below [facility] Harini Helm DO Work Phone: Comment on above: Reference Range: 11. 5 - 14.5 Hematocrit (Bld) [Volume fraction] 39.6 % below low threshold See Below [facility] Harini Helm DO Work Phone: Comment on above: Reference Range: 41. 0 - 52.0 Hemoglobin (Bld) [Mass/Vol] 13.1 g/dL below low threshold See Below [facility] Harini Helm DO Work Phone: Comment on above: Reference Range: 13. 5 - 17.5 MCHC (RBC) [Mass/Vol] 33.1 g/dL See Below [facility] Harini Helm DO Work Phone: Comment on above: Reference Range: 32. 0 - 36.0 MCV (RBC) [Entitic vol] 93 fL 80 - 100 M [facility] Harini Helm DO Work Phone: Platelets (Bld) [#/Vol] 301 10*3/uL 150 - 450 [facility] Harini Helm DO Work Phone: RBC (Bld) [#/Vol] 4.27 {x10E12/L} below low threshold See Below [facility] Harini Helm DO Work Phone: Comment on above: Reference Range: 4.5 0 - 5.90 WBC (Bld) [#/Vol] 9.3 10*3/uL 4.4 - 11.3 [facility] Harini Helm DO Work Phone: MAGNESIUMon 05-03-2023 Magnesium [Mass/Vol] 2.05 mg/dL Normal 1.60 - 2.40 [facility] Comment on above: Performed By: #### M G #### [facility] [address] [place] [address] Magnesium, Serumon 3 Magnesium [Mass/Vol] 2.05 mg/dL See Below [facility] [address] DO Work Phone: Comment on above: Reference Range: 1.6 0 - 2.40 No Panel Informationon 05-03 0.0 {/100_WBC} 0.0-0.0 [facility] [address] DO Work Phone: [phone] Critically high 0.0-20.0 [facility] [address] DO Work Phone: Comment on above: Critical Result I_Tn IHS_d:69847.6 Called to and read back by: ASHLEY HO at: 05/03/2023 15:57:17 by:DCPERFORMED BY:[facility] [place], [place] [phone] MEDICAL DIRECTORANNIE NUNN M.D. Order Reconciliationon 05-03 Order Reconciliation Page 1 Admission Reconciliation Document Reconciliation Type: Admission requested on behalf of Anderson Martins (Resident) done by Anderson Martins ( (Resident)) Admission - Reconciliation: 03-May-2023 21:28 by: Anderson Martins ( (Resident)) Home MedicationsEnteredLast Dose TakenReconciled with current Order Reconciliation Comment/ Additional Information atenolol 50 mg oral tablet 1 tab(s) orally once a [id number] Atenolol Tablet (TENORMIN)DOSE = 50 mg Oral Dailyatenolol 50 mg oral tablet continued as the inpatient order Atenolol atorvastatin 40 mg oral tablet 1 tab(s) orally once a [id number] Atorvastatin Tablet (LIPITOR)DOSE = 40 mg Oral Dailyatorvastatin 40 mg oral tablet continued as the inpatient order Atorvastatin CeleBREX 200 mg oral capsule 1 cap(s) orally once a [id number] Reviewed and Held DULoxetine 20 mg oral delayed release capsule 1 cap(s) orally once a day 03-May-2023 DULoxetine Delayed Release Capsule (CYMBALTA)DOSE = 20 mg Oral 2 Times a DayDULoxetine 20 mg oral delayed release capsule continued as the inpatient order DULoxetine omeprazole 40 milligram(s) orally once a [id number] Pantoprazole Enteric Coated Tablet (PROTONIX)DOSE = 40 mg Oral Dailyomeprazole continued as the inpatient order Pantoprazole Percocet 2.5 mg-325 mg oral tablet 1 tab(s) orally every 6 [id number] Reviewed and Held Additional Current Orders Acetaminophen Tablet (TYLENOL)DOSE = 975 mg Oral Every 8 Hours Dextrose 50% in Water Injectable DOSE = 25 gram(s) IntraVenous Push Every 15 Minutes, PRN Blood Glucose 70 mg/dL or LESS & HAS IV access;Clinician Notes: IF patient HAS a secure IV access & is Unconscious, Conscious, NPO or Unable to Eat or Drink. Repeat until BG reaches 100 mg/dL or greater. Push 2-3 mL/minute. Discontinue Once BG reaches 100 mg/dL or greater. Glucagon Injectable DOSE = 1 mg IntraMuscular Every 15 Minutes, PRN Blood Glucose 70 mg/dL or LESS & NO IV accessClinician Notes: IF patient DOES NOT have secure IV access & is Unconscious, Conscious, NPO or Unable to Eat or Drink. Repeat until BG reaches 100 mg/dL or greater. Discontinue Once BG reaches 100 mg/dL or greater. Heparin (Initial LOAD) Injectable. (Low Intensity - ACS, Stroke)DOSE = 4,000 unit(s) IntraVenous Push Once Heparin (Repeat Bolus) Injectable (Low Intensity - ACS, Stroke) IntraVenous Push Every 4 HoursRepeat Bolus Doses:If Heparin Assay is LESS than 0.1 Repeat Bolus of 4000 units.If Heparin Assay is between 0.1 and 0.2 Repeat Bolus of 2000 units.If Heparin Assay is between 0.3 and 0.6 (THERAPEUTIC) DO NOT BOLUS.If Heparin Assay is between 0.7 and 1.0 DO NOT BOLUS.If Heparin Assay is between 1.1 and 1.2 DO NOT BOLUS.If Heparin Assay is GREATER than 1.2 DO NOT BOLUS.If Heparin Assay is > 0.6, DO NOT BOLUS.Clinician Notes: Administer with Q 4 hour Heparin Assay result, beginning 4 hours after the drip initiation. Call physician with lab results. Heparin 25,000 units/ D5W 250 mL Infusion Solution (Low Intensity - ACS, Stroke)IntraVenous Admin Rate = 10 mL/hr DOSE Rate = 1,000 units/hrInfusion Rate Adjustments: If Heparin Assay is LESS than 0.1 INCREASE Infusion Rate by 300 units/ hr.If Heparin Assay is between 0.1 and 0.2 INCREASE Infusion Rate by 200 units/ hr. If Heparin Assay is between 0.3 and 0.6 (THERAPEUTIC) DO NOT CHANGE Infusion Rate.If Heparin Assay is between 0.7 and 1.0 REDUCE Infusion Rate by 200 units/ hr.If Heparin Assay is between 1.1 and 1.2 HOLD Infusion for 1 Hour then REDUCE Infusion Rate by 200 units/ hr.If Heparin Assay is GREATER than 1.2 HOLD infusion for 1 hour & repeat Heparin Assay: If repeat is between 0.3 and 0.6 REDUCE Infusion Rate by 300 units/ hr. If repeat is > 0.6, continue to HOLD INFUSION and Contact provider for further orders. Influenza Virus QUADRIVALENT (Inactive) ADULT Vaccine DOSE = 0.5 mL IntraMuscular OnceClinician Notes: :: Must be given prior to discharge. Order entered from Admission Screen. Insulin Lispro Mild Corrective Scale Give SubCutaneous 3 Times a Day Before Meals Hypoglycemia Protocol Call LIP unit(s) if Blood Glucose is between 0 - 70 0 unit(s) if Blood Glucose is between 71 - 150 2 unit(s) if Blood Glucose is between 151 - 200 4 unit(s) if Blood Glucose is between 201 - 250 6 unit(s) if Blood Glucose is between 251 - 300 8 unit(s) if Blood Glucose is between 301 - 350 10 unit(s) if Blood Glucose is between 351 - 400 Notify Provider unit(s) if Blood Glucose is greater than 400Notes from Pharmacy: RCRA Nitroglycerin 50 mg/ D5W 250 mL Infusion Solution (TRIDIL)IntraVenous Initial Admin Rate = 1.5 mL/hrMAX DOSE Rate = 200 mcg/minTitration Goal 1: Mean arterial pressure between 60 and 70 mmHgBidirectional Titration Dose: 5 mcg/min Every 3 MinutesNotes from Pharmacy: Initial DOSE Rate = 5 mcg/min = 1.5 mL/hr. oxyCODONE Immediate Release Tablet (OXYIR, ROXICODONE)DOSE = 5 mg Oral Every 6 Hours, PRN Pain - (more content not included)... Normal [facility] Patient Profile - Adult v2on 05-03-2023 Patient Profile - Adult v2 Profile: Initial Info: How to be AddressedRon Spoken Language PreferredEnglish Source of Informationpatient Stated Reason for Admissionchest pain, need surgery Wants Family/Rep Notified of Admissionyes, primary contact Notify PCPnotify PCP Informed of Patient Visiting Rightsyes Arrived Fromhospital Patient Belongingsremains with patient Patient Belongings Remaining with Patientclothing; cell phone/electronics Medications Brought to Hospitalno General Health: Weight in kg87.5 kilogram(s) Weight in lzo010.9 pound(s) Weight Methodactual (measured) Scale Typebed Height in cm172.5 centimeter(s) Height in feet5 feet Height in inches7.95 inch(es) Height Methodstated BMI (kg/m2)29.405 square meter RSP Based Care: How would you like to participate in your carebe involved in plan of care What is the number one concern for you during this hospitalizationsurgery What is the most important thing we can do to support you during this hospitalizationnone Is there anything we need to know to best care for younone Substance: Smoking Statusmoderate user (uses 11-30 cig/day, OR 0.5-1.5 ppd, OR 2-3 cans/pouches loose leaf tobacco per week, OR 0.5-1.5 vape pods per day) Tobacco Cessation Education (provide if tobacco use within the last 12 mos) patient declined Alcohol Usedenies Drug Usedenies Health Mgmt: Symptoms/Conditions Managed at H[facility] Relationship/Environ: Resource/Environmental Concernsnone Primary Source of Support/Comfortparent Lives Withparent(s) Living Arrangementshouse Services Anticipated at Transitionnone [facility] Significant IndicatorsComplete Information Review: Allergies, Home Meds and Significant Events have been Reviewed and Verified with Patient/Familyyes ALLERGY, INTOLERANCE, ADVERSE EVENT: Allergies: No Known Allergies: Active Electronic Signatures: Eloisa Fonseca (JUSTUS) (Signed 03-May-2023 19:52) Authored: Initial Info, General Health, RSP Based Care, Substance, Health Mgmt, Relationship/Environ, Additional Information Last Updated: 03-May-2023 19:52 by Eloisa Fonseca) Normal [facility] RENAL FUNCTION PANELon 05-03 Albumin [Mass/Vol] 3.9 g/dL Normal 3.4 - 5.0 [facility] Comment on above: Performed By: #### R ENAL #### [facility] [address] [place] [address] Calcium [Mass/Vol] 9.3 mg/dL Normal 8.6 - 10.6 [facility] Comment on above: Performed By: #### R ENAL #### [facility] [address] [place] [address] Creatinine [Mass/Vol] 0.96 mg/dL Normal 0.50 - 1.30 [facility] Comment on above: Performed By: #### R ENAL #### [facility] [address] [place] [address] eGFR MALE >90 Normal >90 [facility] Comment on above: Result Comment: CALC ULATIONS OF ESTIMATED GFR ARE PERFORMED USING THE 2020 CKD-EPI STUDY REFIT EQUATION WITHOUT THE RACE VARIABLE FOR THE IDMS-TRACEABLE CREATININE METHODS. https://jasn.asnjournals.org/content/early//ASN.2020 735587 Performed By: #### R ENAL #### [facility] [address] [place] [address] Glucose [Mass/Vol] 104 mg/dL High 74 - 99 [facility] Comment on above: Performed By: #### R ENAL #### [facility] [address] [place] [address] Phosphate [Mass/Vol] 3.5 mg/dL Normal 2.5 - 4.9 [facility] Comment on above: Result Comment: The performance characteristics of phosphorus testing in heparinized plasma have been validated by the individual laboratory site where testing is performed. Testing on heparinized plasma is not approved by the FDA; however, such approval is not necessary. Performed By: #### R ENAL #### [facility] [address] [place] [address] Urea nitrogen [Mass/Vol] 14 mg/dL Normal 6 - 23 [facility] Comment on above: Performed By: #### R ENAL #### [facility] [address] [place] [address] HCO3 (Bld) [Moles/Vol] 23 mmol/L Normal 21 - 32 [facility] Comment on above: Performed By: #### R ENAL #### [facility] [address] [place] [address] Radiologyon 05-03-2023 XR Chest Single view Normal [facility] [address] DO Work Phone: [phone] Renal Function Panelon 05-03 Albumin BCP dye [Mass/Vol] 3.9 g/dL 3.4 - 5.0 [facility] [address] DO Work Phone: [phone] Anion gap [Moles/Vol] 12 mmol/L Normal 10 - 20 [facility] [address] DO Work Phone: [phone] Comment on above: Performed By: #### R ENAL #### [facility] [address] [place] [address] Calcium [Mass/Vol] 9.3 mg/dL 8.6 - 10.6 [facility] [address] DO Work Phone: [phone] Chloride [Moles/Vol] 109 mmol/L High 98 - 107 [facility] [address] DO Work Phone: [phone] Comment on above: Performed By: #### R ENAL #### [facility] [address] [place] [address] CO2 [Moles/Vol] 23 mmol/L - [facility] [address] DO Work Phone: [phone] Creatinine [Mass/Vol] 0.96 mg/dL See Below [facility] [address] DO Work Phone: [phone] Comment on above: Reference Range: 0.5 0 - 1.30 Glucose [Mass/Vol] 104 mg/dL above high threshold 74 - 99 [facility] [address] DO Work Phone: Phosphate [Mass/Vol] 3.5 mg/dL 2.5 - 4.9 [facility] [address] DO Work Phone: Comment on above: The performance tamir acteristics of phosphorus testing in heparinized plasma have been validated by the individual laboratory site where testing is performed. Testing on heparinized plasma is not approved by the FDA; however, such approval is not necessary. Potassium [Moles/Vol] 4.3 mmol/L Normal 3.5 - 5.3 [facility] [place] [facility] DO Work Phone: Comment on above: Performed By: #### R ENAL #### [facility] [address] [place] [address] Sodium [Moles/Vol] 140 mmol/L Normal 136 - 145 [facility] [place] [address] DO Work Phone: Comment on above: Performed By: #### R ENAL #### [facility] [address] [place] [address] Urea nitrogen [Mass/Vol] 14 mg/dL 6 - 23 [facility] [place] 250 DO Work Phone: Renal Function Panel >90 >90 [facility] [place] 250 DO Work Phone: Comment on above: CALCULATIONS OF ENEDINA MATED GFR ARE PERFORMED USING THE 2020 CKD-EPI STUDY REFIT EQUATION WITHOUT THE RACE VARIABLE FOR THE IDMS-TRACEABLE CREATININE METHODS.https://jasn.asnjournals.org/content/early/ ASN.1266331709 STAPH/MRSA SCREENon 05-03-20 23 STAPH/MRSA SCREEN PATIENT: SHAHEED LATHAM LOCATION: [facility] BILL#: [id number] : 63 AGE: SEX: M ORDERED BY: ANDERSON MARTINS SOURCE: ANTERIOR NARES COLLECTED: 05/03/23 21:00 ANTIBIOTICS AT ANGEL.: RECEIVED : 05/04/23 00:01 SITE: nares R E S U L T S STAPH/MRSA SCREEN FINAL 05/06/23 14:03 NO Staphylococcus aureus ISOLATED. Normal [facility] Comment on above: Performed By: #### U A #### [facility] [address] [place] [address] TH CHEST 1 VIEWon 05-03-2023 TH CHEST 1 VIEW Patient Name: MORGAN LATHAM STUDY: CHEST 1 VIEW; 05/03/2023 8:52 pm INDICATION: eval for balloon pump . COMPARISON: None. ACCESSION NUMBER(S): [id number] ORDERING CLINICIAN: ANDERSON MARTINS FINDINGS: AP radiograph of the chest was provided. Metallic marker of the IABP pump projects over the aortic knob. CARDIOMEDIASTINAL SILHOUETTE: Cardiomediastinal silhouette is normal in size and configuration. LUNGS: There are hazy basilar opacities. Increased perihilar and interstitial prominence. Mild blunting of the bilateral costophrenic angles. No sizable pneumothorax. ABDOMEN: No remarkable upper abdominal findings. BONES: No acute osseous changes. IMPRESSION: 1. Metallic marker of the IABP pump projects over the aortic knob. 2. Mild hazy basilar opacities likely represents atelectasis. 3. Pulmonary interstitial edema with trace bilateral pleural effusions. I personally reviewed the images/study and I agree with the findings as stated. This study was interpreted at [facility], [place], [place]. Electronically signed by: WILLIE REIS MD Normal [facility] TROPONIN I, HIGH SENSITIVITY on 05-03-2023 TROPONIN I, HIGH SENSITIVITY 04427 ng/L High 0 - 53 [facility] Comment on above: Result Comment: . Less than 99th percentile of normal range cutoff- Female and children under 18 years old <35 ng/L; Male <54 ng/L: Negative Repeat testing should be performed if clinically indicated. . Female and children under 18 years old 35-120 ng/L; Male 54-120 ng/L: Consistent with possible cardiac damage and possible increased clinical risk. Serial measurements may help to assess extent of myocardial damage. . >120 ng/L: Consistent with cardiac damage, increased clinical risk and myocardial infarction. Serial measurements may help assess extent of myocardial damage. . NOTE: Children less than 1 year old may have higher baseline troponin levels and results should be interpreted in conjunction with the overall clinical context. . NOTE: Troponin I testing is performed using a different testing methodology at [facility] than at other [facility]. Direct result comparisons should only be made within the same method. Performed By: #### T [facility] #### [facility] [address] [place] [address] [place] [id number] Tropinin I.cardiac panel High sensitivity method 41571 ng/L above high threshold 0 - 53 [facility] [address] DO Work Phone: Comment on above: .Less than 99th perc entile of normal range cutoff-Female and children under 18 years old <35 ng/L; Male <54 ng/L: NegativeRepeat testing should be performed if clinically indicated. .Female and children under 18 years old 35-120 ng/L; Male 54-120 ng/L:Consistent with possible cardiac damage and possible increased clinical risk. Serial measurements may help to assess extent of myocardial damage. .>120 ng/L: Consistent with cardiac damage, increased clinical risk andmyocardial infarction. Serial measurements may help assess extent of myocardial damage. . NOTE: Children less than 1 year old may have higher baseline troponin levels and results should be interpreted in conjunction with the overall clinical context..NOTE: Troponin I testing is performed using a different testing methodology at [facility] than at formerly [facility]. Direct result comparisons should only be made within the same method. TYPE + SCREENon 05-03-2023 ABO TYPE O Normal [facility] Comment on above: Performed By: #### H AU #### [facility] [address] [place] [address] RH TYPE Positive Normal [facility] Comment on above: Performed By: #### H AUF #### [facility] [address] [place] [address] Troponin I.cardiac [Mass/vol ume] in Serum or Plasma by Detection limit <= 0.01 ng/Ordered By: Hetal Quick on 05-03-2023 Troponin I.cardiac DL <= 0.01 ng/mL [Mass/Vol] 66275.9 pg/mL 0.0-20.0 [facility] Comment on above: Critical Result I_Tn IHS_d:46093.9 Called to and read back by: TD MITCHELL at: 05/03/2023 18:01:13 by:[id number] UA MICROSCOPICon 05-03-2023 RBC (U) [#/Vol] /uL Abnormal 0-5 [facility] Comment on above: Performed By: #### H AUF #### [facility] [address] [place] [address] WBC 60 /HPF Abnormal 0-5 [facility] Comment on above: Performed By: #### H AUF #### [facility] [address] [place] [address] URINALYSISon 05-03-2023 Appearance (U) HAZY Normal CLEAR [facility] Comment on above: Performed By: #### U A #### [facility] [address] [place] [address] Bilirubin Ql (U) Negative Normal NEGATIVE [facility] Comment on above: Performed By: #### U A #### [facility] [address] [place] [address] Hemoglobin Ql (U) LARGE (3+) Abnormal NEGATIVE [facility] Comment on above: Performed By: #### U A #### [facility] [address] [place] [address] Nitrite Ql (U) Negative Normal NEGATIVE [facility] Comment on above: Performed By: #### U A #### [facility] [address] [place] [address] Protein Ql (U) 30 (1+) Abnormal NEGATIVE [facility] Comment on above: Performed By: #### U A #### [facility] [address] [place] [address] Specific gravity (U) [Rel density] 1.058 High 1.005 - 1.035 [facility] Comment on above: Performed By: #### U A #### [facility] [address] [place] [address] Urobilinogen (U) [Mass/Vol] mg/dL Normal 0.0 - 1.9 [facility] Comment on above: Performed By: #### U A #### [facility] [address] [place] [address] Urinalysison 05-03-2023 Color (U) YELLOW Normal STRAW,YELL OW -[facility] [address] DO Work Phone: [phone] Comment on above: Reference Range: STR AW,YELLOW Performed By: #### U A #### [facility] [address] [place] [address] Glucose Ql (U) Negative Normal NEGATIVE [facility] [address] DO Work Phone: [phone] Comment on above: Performed By: #### U A #### [facility] [address] [place] [address] Ketones Ql (U) Negative Normal NEGATIVE -[facility] [address] DO Work Phone: [phone] Comment on above: Performed By: #### U A #### [facility] [address] [place] [address] Leukocyte esterase Test strip Ql (U) Negative Normal NEGATIVE [facility] [address] DO Work Phone: [phone] Comment on above: Performed By: #### U A #### [facility] [address] [place] [address] pH (U) 5.0 [pH] Normal 5.0 - 8.0 [facility] [address] DO Work Phone: [phone] Comment on above: Performed By: #### U A #### [facility] [address] [place] [address] Protein (U) [Mass/Vol] 30 (1+) Abnormal NEGATIVE [facility] [address] DO Work Phone: [phone] RBC (U) [#/Vol] LARGE (3+) Abnormal NEGATIVE -[facility] [address] DO Work Phone: [phone] Specific gravity (U) [Rel density] 1.058 1 above high threshold See Below [facility] [address] DO Work Phone: [phone] Comment on above: Reference Range: 1.0 05 - 1.035 Urinalysis Negative NEGATIVE [facility] [address] DO Work Phone: Urinalysis <2.0 0.0 - 1.9 -[facility] [employer] [address] DO Work Phone: Urinalysis HAZY CLEAR [facility] [address] DO Work Phone: Urinalysis, Microscopicon Urinalysis, Microscopic >182 Abnormal 0-5 M -[facility] [employer] 250 DO Work Phone: Urinalysis, Microscopic 60 {/HPF} Abnormal 0-5 M -[facility] [employer] [place] [address] DO Work Phone: Tobacco Screening.on 023 Adult depression screening assessment No [facility] [employer] [address] Work Phone: Fall risk assessment a) No falls within the last year [facility] [employer] [address] Work Phone: Tobacco use status CPHS a) Yes M [facility] [employer] [address] Work Phone: [facility] ----- MORGAN LATHAM ([id number]) 1965 M Date Time Provider Department 04/03/23 MOHINI HOOK During your visit today, we recorded the following information about you: Mohini Hook MD 04/03/2023 3:52 PM Signed Please Call patient if MyChart note not read to review results/released to My Chart if tests completed at [facility]: Improved/ normal labs. Continue over the counter vitamin D 4000 International Units daily with food. Knee xrays stable. May see ortho and or pain clinic if pain symptoms persist or worsen.. Happy to further review and discuss at follow up visit. Continue rest of treatment plan per instructions at last office visit. Thank you. 04/01/23 normal vitamin D 42.5, vitamin b12-492; 04/01/23 knee xrays-Vascular calcifications posterior to the knee. Mayda Pink, JUSTUS 04/03/2023 5:46 PM Signed No Answer. No VM Natacha Huff RN 04/04/2023 8:30 AM Signed Called pt Pt is not available per message Please try again later Saumya Duval MA 04/05/2023 8:08 AM Signed another message sent to pt via [employer] due to unsuccessful attempts reaching pt as well as pt reviewing last message from Dr Hook. postponed to make sure that pt reviews results pt is active on [employer] - last checked 04/03 Saumya Duval MA 04/09/2023 3:21 PM Signed Notified patient of below, verbal understanding. Allergies As of Date: 04/03/2023 (No Known Allergies) Date Reviewed: 04/01/2023 Reviewed by: Mohini Hook MD - Fully Assessed Reason for Visit: Results [95] Prescriptions as of 04/09/2023 - tiZANidine HCl (ZANAFLEX) 4 mg capsule Take 4 mg by mouth. - gabapentin (NEURONTIN) 300 mg capsule TAKE 1 CAP BY MOUTH AT BEDTIME DAY 1,THEN 1 CAP TWICE DAILY DAY 2,THEN 1 CAP 3 TIMES DAILY - celecoxib (CELEBREX) 200 mg capsule Take 1 capsule by mouth twice daily. - ergocalciferol 50,000 unit capsule (VITAMIN D2, DRISDOL) (take by mouth with food twice a week, ONE CAPSULE ON SATURDAY AND ONE ON SATURDAY) FOR A TOTAL OF 8 WEEKS. - atenolol (TENORMIN) 50 mg tablet Take 50 mg by mouth once daily. - atorvastatin (LIPITOR) 20 mg tablet TAKE 1 TABLET BY MOUTH EVERYDAY AT BEDTIME - DULoxetine (CYMBALTA) 30 mg capsule Take by mouth q 24 HR. - omeprazole (PRILOSEC) 40 mg capsule Take 40 mg by mouth twice daily. 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 Transcribed by: FREDY Technologist: BOYD [facility] Consent for Treatmenton 01-04 Consent for Treatment [id number]:12 7 [facility] Physician Orderon 01-17-2023 Physician Order [id number]:1 27 [facility] XR Shoulder - left 4 Viewson 12-28-2022 IMPRESSION: Mild osteoarthritis of the left shoulder. Calcific bursitis of the subacromial subdeltoid bursa. 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 Transcribe Date/Time: Dec 28 2022 1:41P Dictated by : VALERIE MATHIS MD This examination was interpreted and the report reviewed and electronically signed by: VALERIE MATHIS MD on Dec 28 2022 1:43PM [facility] DIVISION OF RADIOLOGY * * *Final Report* * * DATE OF EXAM: Dec 28 2022 1:13PM LZX 5604 - XR SHLDR 4V AP/TRUDI/LAT/OUTLET LT / PROCEDURE REASON: Left shoulder pain, unspecified chronicity * * * * Physician Interpretation * * * * EXAMINATION: XR SHLDR 4V AP/TRUDI/LAT/OUTLET LT PATIENT/TECHNOLOGIST PROVIDED HISTORY: chronic left shoulder pain CLINICAL INFORMATION ( PROVIDED BY ORDERING CLINICIAN) : Left shoulder pain, unspecified chronicity TECHNIQUE: XR SHLDR 4V AP/TRUDI/LAT/OUTLET LT Laterality: LEFT Number of different views (projections): 5 M: XB_1 COMPARISON: None. RESULT: No acute fracture or dislocation. Mild glenohumeral joint space narrowing with small marginal osteophytes. Mild degenerative change of the acromioclavicular joint. The acromiohumeral interval is maintained. Chronic reactive changes/remodeling of the greater tuberosity. Scattered calcifications in the expected region of the subacromial subdeltoid bursa consistent with calcific bursitis. DIVISION OF RADIOLOGY Provider, [facility] - 12/28/2022 * * *Final Report* * * DATE OF EXAM: Dec 28 2022 1:13PM LZX 5604 - XR SHLDR 4V AP/TRUDI/LAT/OUTLET LT / PROCEDURE REASON: Left shoulder pain, unspecified chronicity * * * * Physician Interpretation * * * * EXAMINATION: XR SHLDR 4V AP/TRUDI/LAT/OUTLET LT PATIENT/TECHNOLOGIST PROVIDED HISTORY: chronic left shoulder pain CLINICAL INFORMATION ( PROVIDED BY ORDERING CLINICIAN) : Left shoulder pain, unspecified chronicity TECHNIQUE: XR SHLDR 4V AP/TRUDI/LAT/OUTLET LT Laterality: LEFT Number of different views (projections): 5 M: XB_1 COMPARISON: None. RESULT: No acute fracture or dislocation. Mild glenohumeral joint space narrowing with small marginal osteophytes. Mild degenerative change of the acromioclavicular joint. The acromiohumeral interval is maintained. Chronic reactive changes/remodeling of the greater tuberosity. Scattered calcifications in the expected region of the subacromial subdeltoid bursa consistent with calcific bursitis. IMPRESSION IMPRESSION: Mild osteoarthritis of the left shoulder. Calcific bursitis of the subacromial subdeltoid bursa. 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 0 [facility] Comment on above: Performed By: #### V ITB12, VITAD #### [facility] [address] [address] [address] Alexis Spann VITAMIN D 25 OHon 10-01-2022 VIT D 25-OH 45.4 ng/mL Normal [facility] Comment on above: Performed By: #### V ITB12, VITAD #### [facility] [address] [address] [address] Alexis Spann VIT D RANGES SEE BELOW Normal [facility] Comment on above: Result Comment: <20 ng/mL Vit D deficient 20 - <30 ng/mL Vit D insufficient 30 - 100 ng/mL Vit D sufficient >100 ng/mL Potential Toxicity Performed By: #### V ITB12, VITAD #### [facility] [address] [address] [address] Alexis Spann Albumin [Mass/volume] in Ser um or PlasmaOrdered By: Elsie Escalera on 09-20-2022 Albumin [Mass/Vol] 3.8 g/dL 3.2-5.5 [facility] Basophils Auto (Bld) [#/Vol] Ordered By: Elsie Andersonxa on 09-20-2022 Basophils (Bld) [#/Vol] 0.1 10*3/uL 0.0-0.2 [facility] Basophils/100 WBC Auto (Bld) Ordered By: Elsie Andersonxa on 09-20-2022 Basophils/100 WBC (Bld) 1.2 % . [facility] Creatinine and Glomerular fi ltration rate.predicted panel (S/P/Bld)Ordered By: Elsie Escalera on 09-20-2022 Creatinine [Mass/Vol] 1.04 mg/dL 0.64-1.27 [facility] Eosinophils Auto (Bld) [#/Vo l]Ordered By: Elsie Andersonxa on 09-20-2022 Eosinophils (Bld) [#/Vol] 0.2 10*3/uL 0.0-0.45 [facility] Eosinophils/100 WBC Auto (Bl d)Ordered By: Elsie Escalera on 09-20-2022 Eosinophils/100 WBC (Bld) 2.9 % . [facility] Erythrocyte distribution wid th Auto (RBC) [Ratio]Ordered By: Elsie Escalera on 09-20-2022 Erythrocyte distribution width (RBC) [Ratio] 13.5 % 12.0-14.8 [facility] Estimated glomerular filtrat ion rate (GFR) non- AmericanOrdered By: Elsie Escalera on 09-20-2022 GFR/1.73 sq M.predicted among non-blacks MDRD (S/P/Bld) [Vol rate/Area] > 60 mL/Min [facility] Globulin Calc (S) [Mass/Vol] Ordered By: Elsie Escalera on 09-20-2022 Globulin (S) [Mass/Vol] 2.3 g/dL [facility] Hematocrit Auto (Bld) [Volum e fraction]Ordered By: Elsie Escalera on 09-20-2022 Hematocrit (Bld) [Volume fraction] 41.9 % 38.8-50.0 [facility] Hemoglobin [Mass/volume] in BloodOrdered By: Elsie Escalera on 09-20-2022 Hemoglobin (Bld) [Mass/Vol] 13.8 g/dL 13.0-17.0 [facility] Leukocytes [#/volume] correc liss for nucleated erythrocytes in Blood by Automated counOrdered By: Elsie Escalera on 09-20-2022 WBC corrected for nucl RBC Auto (Bld) [#/Vol] 5.8 10*3/uL 4.1-10.5 [facility] Lymphocytes Auto (Bld) [#/Vo l]Ordered By: Elsie Escalera on 09-20-2022 Lymphocytes (Bld) [#/Vol] 1.5 10*3/uL 1.00-4.8 [facility] Lymphocytes/100 WBC Auto (Bl d)Ordered By: Elsie Andersonxa on 09-20-2022 Lymphocytes/100 WBC (Bld) 25.3 % . [facility] MCH Auto (RBC) [Entitic mass ]Ordered By: Elsie Escalera on 09-20-2022 MCH (RBC) [Entitic mass] 31.3 pg 27.5-35.2 [facility] MCHC Auto (RBC) [Mass/Vol]Or dered By: Elsie Escalera on 09-20-2022 MCHC (RBC) [Mass/Vol] 33.0 g/dL 32.5-35.6 [facility] MCV Auto (RBC) [Entitic vol] Ordered By: Elsie Escalera on 09-20-2022 MCV (RBC) [Entitic vol] 94.8 fL 83.5-101 [facility] Monocytes Auto (Bld) [#/Vol] Ordered By: Elsie Escalera on 09-20-2022 Monocytes (Bld) [#/Vol] 0.7 10*3/uL 0.0-0.8 [facility] Monocytes/100 WBC Auto (Bld) Ordered By: Elsie Andersonxa on 09-20-2022 Monocytes/100 WBC (Bld) 12.5 % . [facility] Neutrophils Auto (Bld) [#/Vo l]Ordered By: Elsie Escalera on 09-20-2022 Neutrophils (Bld) [#/Vol] 3.3 10*3/uL 1.8-7.7 [facility] Neutrophils/100 WBC Auto (Bl d)Ordered By: Elsie Escalera on 09-20-2022 Neutrophils/100 WBC (Bld) 58.1 % . [facility] No Panel InformationOrdered By: Elsie Escalera on 09-20-2022 Estimated GFR () > 60 mL/Min [facility] Comment on above: GFR estimated refere nce range: According to KDOQI guidelines, <60 ml/min/1.73m2 is sufficient to diagnose a patient with chronic kidney disease. Pharmacy Creatinine Clearance (Chem N/A [facility] Nucleated erythrocytes [Pres ence] in Blood by Automated countOrdered By: Elsie Escalera on 09-20-2022 Nucleated RBC Auto Ql (Bld) 0.1 /100{WBC} 0-0.5 [facility] Platelet mean volume Auto (B ld) [Entitic vol]Ordered By: Elsie Escalera on 09-20-2022 Platelet mean volume (Bld) [Entitic vol] 7.8 fL 6.6-10.1 [facility] Platelets Auto (Bld) [#/Vol] Ordered By: Elsie Escalera on 09-20-2022 Platelets (Bld) [#/Vol] 320 10*3/uL 150-450 [facility] Protein [Mass/volume] in Ser um or PlasmaOrdered By: Elsie Escalera on 09-20-2022 Protein [Mass/Vol] 6.1 g/dL 6.1-7.9 [facility] RBC Auto (Bld) [#/Vol]Ordere d By: Elsie Escalera on 09-20-2022 RBC (Bld) [#/Vol] 4.41 10*6/uL 3.90-5.60 [facility] Serum or plasma alanine kauffman otransferase measurement without P-5'-P (enzymatic activiOrdered By: Elsie Escalera on 09-20-2022 ALT No additional P-5'-P [Catalytic activity/Vol] 18 U/L 10-60 [facility] Serum or plasma albumin/glob ulin mass ratioOrdered By: Elsie Escalera on 09-20-2022 Albumin/Globulin [Mass ratio] 1.7 {ratio} [facility] Serum or plasma alkaline luna sphatase measurement (enzymatic activity/volume)Ordered By: Elsie Escalera on 09-20-2022 ALP [Catalytic activity/Vol] 78 U/L 32-92 [facility] Serum or plasma anion gap de terminationOrdered By: Elsie Escalera on 09-20-2022 Anion gap [Moles/Vol] 10.6 mmol/L 6.0-15.0 [facility] Serum or plasma aspartate am inotransferase measurement (enzymatic activity/volume)Ordered By: Elsie Escalera on 09-20-2022 AST [Catalytic activity/Vol] 21 U/L 10-42 [facility] Serum or plasma calcium jass urement (mass/volume)Ordered By: Elsie Escalera on 09-20-2022 Calcium [Mass/Vol] 9.3 mg/dL 8.2-10.2 [facility] Serum or plasma chloride zaina surement (moles/volume)Ordered By: Elsie Escalera on 09-20-2022 Chloride [Moles/Vol] 103 mmol/L 95-114 [facility] Serum or plasma glucose jass urement (mass/volume)Ordered By: Elsie Escalera on 09-20-2022 Glucose [Mass/Vol] 134 mg/dL 70-100 [facility] Comment on above: ADA recommended refe rence rangeRandom Glucose Reference Range is dependent on time and content of last meal. Glucose of more than 200 mg/dL in a nonstressed, ambulatory subject supports the diagnosis of Diabetes Mellitus. Serum or plasma potassium me asurement (moles/volume)Ordered By: Elsie Escalera on 09-20-2022 Potassium [Moles/Vol] 4.4 mmol/L 3.5-5.1 [facility] Serum or plasma sodium measu rement (moles/volume)Ordered By: Elsie Escalera on 09-20-2022 Sodium [Moles/Vol] 133 mmol/L 136-146 [facility] Serum or plasma total biliru bin measurement (mass/volume)Ordered By: Elsie Escalera on 09-20-2022 Bilirubin [Mass/Vol] 0.6 mg/dL 0.3-1.2 [facility] Serum or plasma total carbon dioxide measurement (moles/volume)Ordered By: Elsie Escalera on 09-20-2022 CO2 [Moles/Vol] 23.8 mmol/L 22.0-30.0 [facility] Serum or plasma urea nitroge n measurement (mass/volume)Ordered By: Elsie Escalera on 09-20-2022 Urea nitrogen [Mass/Vol] 19 mg/dL 04-27 [facility] WBC Auto (Bld) [#/Vol]Ordere d By: Elsie Escalera on 09-20-2022 WBC (Bld) [#/Vol] 5.8 10*3/uL 4.1-10.5 [facility] CBC panel Auto (Bld)on 08-17 Erythrocyte distribution width (RBC) [Ratio] 13.2 % 11.5 - 15.0 % [facility] Hematocrit (Bld) [Volume fraction] 44.2 % 39.0 - 51.0 % [facility] Hemoglobin (Bld) [Mass/Vol] 14.6 g/dL 13.0 - 17.0 g/dL [facility] MCH (RBC) [Entitic mass] 31.9 pg 26.0 - 34.0 pg [facility] MCHC (RBC) [Mass/Vol] 33.0 g/dL 30.5 - 36.0 g/dL [facility] MCV (RBC) [Entitic vol] 96.5 fL 80.0 - 100.0 fL [facility] Nucleated RBC (Bld) [#/Vol] <0.01 k/uL [facility] Platelet mean volume (Bld) [Entitic vol] 9.5 fL 9.0 - 12.7 fL [facility] Platelets (Bld) [#/Vol] 314 10*3/uL 150 - 400 k/uL [facility] RBC (Bld) [#/Vol] 4.58 10*6/uL 4.20 - 6.00 m/uL [facility] WBC (Bld) [#/Vol] 9.23 10*3/uL 3.70 - 11.00 k/uL [facility] No Panel Informationon 08-17 [facility] Initial Visit (Orthopaedic S urgery)on 08-14-2022 Initial Visit (Orthopaedic Surgery) Diagnoses/Problems Assessed Lumbar radicular pain (724.4) (M54.16) Orders Low back pain Xray Lumbosacral Spine Min 4 View; Status:Complete; Done: 14Aug2022 03:31PM Radiologist to Determine Optimal Study : Y What are the patient's signs and symptoms? : pain Provider Impressions Assessment: Previous injections gave him some relief. He had an MRI in the past that showed mainly right-sided symptoms. It has been over a year since that MRI. Treatment Plan: We need to get a new MRI of his lumbar spine and get him into some physical therapy. For complete plan details, please refer to Dr. Coello?s portion of this dictation. In a face to face encounter, I performed a history and physical examination, discussed pertinent diagnostics studies if indicated, and discussed diagnosis and management strategies with both the patient and the midlevel provider. I reviewed the midlevel?s note and agree with the documented findings and plan of care. Morgan is someone who I saw in the past. I sent him to Dr. Black. Dr. Black gave him an injection that lasted six months. That was lidocaine only. He then came back for a second injection which gave him no relief. I actually have discussed this case personally with Dr. Black. The patient now has a return of two chronic stable problems of back and leg symptoms; however, there is a flare-up recently. The back is actually a little bit worse than the leg, and it is all left leg pain. It is radicular in nature. He has an MRI in the past which really showed mainly right-sided symptoms, not much on the left, but that MRI is well over a year old at this point. X-rays today on him show a lumbar scoliosis and diffuse degenerative changes. Assessment is patient with back and left leg radiculopathy. The plan is we are going to get him in physical therapy and get an MRI of his lumbar spine. We will see him back after the MRI and take it from there. He does smoke, and he tells me he is going to quit smoking today. Chief Complaint new patient. low back pain with LT leg pain to foot. LT foot has been numb x 2 years. xrays today. History of Present IllnessMorgan is a 56-year-old gentleman known to Dr. Coello. He was last seen in December of 2020. He was having low back pain and left leg radicular pain at that time. 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 We sent him for diagnostic lidocaine injection with Dr. Black. He did get that injection and got six months relief out of it but did not return for followup. He did get a second injection with Dr. Black and got no relief. He is back today with similar symptoms, only worsening. He is having moderate to severe left leg pain that is severely inhibiting his bodily function. He is having back pain as well, 40% back pain versus 60% leg. He has not done any recent physical therapy. He did do a visit or two of acute care physician a couple months ago, but this did not give him any relief. No history of surgery on his back. He denies any fever, chills, nausea, vomiting, or night sweats. He has no bowel or bladder complaints. Active Problems Problems Low back pain (724.2) (M54.50) Lumbar radicular pain (724.4) (M54.16) Past Medical History Problems History of arthritis (V13.4) (Z87.39) History of hypertension (V12.59) (Z86.79) History of Numbness and tingling (782.0) (R20.0,R20.2) History of Vision problems (V41.0) (H54.7) Allergies No Known Drug Allergies Recorded By: Jeanette Montenegro MA; 12/16/2020 3:02:18 PM Current Meds Medication NameInstruction Atenolol TABS Cymbalta CPEP Gabapentin TABS Lipitor TABS oxyCODONE-Acetaminophen 5-325 MG Oral Tablet Vitals Vital Signs Recorded: 14Aug2022 03:12PM Height5 ft 8 in Traviy830 lb BMI Zucvvqkpob46.8 kg/m2 BSA Calculated2.03 Physical Exam On physical exam, well nourished, well kept. No lymphangitis or lymphadenopathy in the examined extremities. Good perfusion to the extremities x 4. Radial and dorsalis pedis pulses 2+. Capillary refill to all four digits brisk. No distal edema. He can rise from a seated position. He can stand on his toes and heels if he balances on the table. He has a steady gait, but he looks to be antalgic on the left. This has been getting worse over time. Signatures Electronically signed by : Elma Reyes, ; Aug 16 2022 7:05PM EST (Sheep Or Calf Grader/Recorde r) Electronically signed by : Guevara Coello MD; Aug 17 2022 12:53PM EST Normal Touchworks No Panel Informationon 08-14 [facility] Work Phone: SPINE, LUMBOSACRAL MIN 4 VIE WSon 08-14-2022 SPINE, LUMBOSACRAL MIN 4 VIEWS Patient Name: MORGAN LATHAM STUDY: SPINE, LUMBOSACRAL MIN 4 VIEWS; ; 08/14/2022 3:31 pm INDICATION: pain M54.50: Low back pain. ACCESSION NUMBER(S): [id number] ORDERING CLINICIAN: GUEVARA COELLO FINDINGS: AP lateral flexion extension x-rays of the lumbar spine show moderate to severe degenerative changes at all levels with disc height loss and osteophyte formation. The most severely affected levels L4-5 where there is significant disc height loss, vacuum phenomena in the disc space as well as an acute scoliosis at that level measuring 10 degrees. There are no fractures. Lumbar lordosis is maintained. Range of motion with flexion and extension is preserved. There is calcification of the anterior vasculature. Pedicles are visualized at all levels. Bony pelvis and hips are partially visualized and show minimal bilateral hip arthritis. Electronically signed by: GUEVARA COELLO MD Normal [facility] Covid-19 PCR (CVDTB)on 03-05 SARS-CoV-2 (COVID-19) RNA AMARJIT+probe Ql (Unsp spec) Not detected Normal NOT DETECTED [facility] Comment on above: Result Comment: This test is not yet approved or cleared by the [place] FDA. When there are no FDA-approved or cleared tests available, and other criteria are met, FDA can make tests available under an emergency access mechanism called an Emergency Use Authorization (EUA). The EUA for this test is supported by the Road Worker of Health and Human Service's (HHS's) declaration that circumstances exist to justify the emergency use of in vitro diagnostics for the detection and/or diagnosis of the virus that causes COVID-19. This EUA will remain in effect (meaning this test can be used) for the duration of the COVID-19 declaration justifying emergency of IVDs, unless it is terminated or revoked by FDA (after which the test may no longer be used). When diagnostic testing is negative, the possibility of a false negative should be considered in the context of a patient's recent exposures and the presence of clinical signs and symptoms consistent with SARS-CoV-2. Performed By: #### C [facility] #### [facility] [address] [address] [address] Alexis Spann Vital Signs Date Time Vital Sign Value Performing Clinician Facility 04-21-2025 [id number] Body height 170.2 cm Odilia Ernandez 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 Work Phone: [facility] 04-21-2025 13:07-0400 Body mass index (BMI) [Ratio] 32.89 kg/m2 Odilia Ernandez 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 Work Phone: [facility] 04-21-2025 13:07-0400 Body weight 95.25 kg Odilia Ernandez 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 Work Phone: [facility] 04-21-2025 13:07-0400 Diastolic blood pressure 64 mm[Hg] Odilia Ernandez 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 Work Phone: [facility] 04-21-2025 13:07-0400 Heart rate 68 /min Odilia Ernandez 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 Work Phone: [facility] 04-21-2025 13:07-0400 Systolic blood pressure 106 mm[Hg] Odilia Ernandez 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 Work Phone: [facility] 04-13-2025 10:23-0400 Body height 170.18 cm Juve Mcpherson MD Work Phone: [facility] 04-13-2025 10:23-0400 Body mass index (BMI) [Ratio] 32.4 kg/m2 Juve Mcpherson MD Work Phone: [facility] 04-13-2025 10:23-0400 Body weight 93.89 kg Juve Mcpherson MD Work Phone: [facility] 04-13-2025 10:23-0400 Diastolic blood pressure 80 mm[Hg] Juve Mcpherson MD Work Phone: [facility] 04-13-2025 10:23-0400 Heart rate 84 /min Juve Mcpherson MD Work Phone: [facility] 04-13-2025 10:23-0400 Respiratory rate 20 /min Juve Mcpherson MD Work Phone: [facility] 04-13-2025 10:23-0400 SaO2% (BldA) [Mass fraction] 98 % Juve Mcpherson MD Work Phone: [facility] 04-13-2025 10:23-0400 Systolic blood pressure 130 mm[Hg] Juve Mcpherson MD Work Phone: [facility] 03-26-2025 11:34-0400 Body height 170.2 cm Juve Mcpherson MD Work Phone: [facility] 03-26-2025 11:34-0400 Body mass index (BMI) [Ratio] 31.95 kg/m2 Juve Mcpherson MD Work Phone: [facility] 03-26-2025 11:34-0400 Body temperature 97.5 [degF] Juve Mcpherson MD Work Phone: [facility] 03-26-2025 11:34-0400 Body weight 92.53 kg Juve Mcpherson MD Work Phone: [facility] 03-26-2025 11:34-0400 Diastolic blood pressure 80 mm[Hg] Juve Mcpherson MD Work Phone: [facility] 03-26-2025 11:34-0400 Heart rate 69 /min Juve Mcpherson MD Work Phone: [facility] 03-26-2025 11:34-0400 Respiratory rate 22 /min Juve Mcpherson MD Work Phone: [facility] 03-26-2025 11:34-0400 SaO2% (BldA) [Mass fraction] 98 % Juve Mcpherson MD Work Phone: [facility] 03-26-2025 11:34-0400 Systolic blood pressure 138 mm[Hg] Juve Mcpherson MD Work Phone: [facility] 03-10-2025 14:09-0400 Body height 170.2 cm Odilia Ernandez 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 Work Phone: [facility] 03-10-2025 14:09-0400 Body mass index (BMI) [Ratio] 33.05 kg/m2 Odilia Ernandez 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 Work Phone: [facility] 03-10-2025 14:09-0400 Body weight 95.71 kg Odilia Ernandez 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 Work Phone: [facility] 03-10-2025 14:09-0400 Diastolic blood pressure 80 mm[Hg] Odilia Ernandez 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 Work Phone: [facility] 03-10-2025 14:09-0400 Heart rate 76 /min Odilia Ernandez 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 Work Phone: [facility] 03-10-2025 14:09-0400 Systolic blood pressure 128 mm[Hg] Odilia Ernandez 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 Work Phone: [facility] 02-25-2025 11:00-0400 Body height 170.2 cm Juve Mcpherson MD Work Phone: [facility] 02-25-2025 11:00-0400 Body mass index (BMI) [Ratio] 32.89 kg/m2 Juve Mcpherson MD Work Phone: [facility] 02-25-2025 11:00-0400 Body temperature 98.4 [degF] Juve Mcpherson MD Work Phone: [facility] 02-25-2025 11:00-0400 Body weight 95.25 kg Juve Mcpherson MD Work Phone: [facility] 02-25-2025 11:00-0400 Diastolic blood pressure 86 mm[Hg] Juve Mcpherson MD Work Phone: [facility] 02-25-2025 11:00-0400 Heart rate 87 /min Juve Mcpherson MD Work Phone: [facility] 02-25-2025 11:00-0400 Respiratory rate 18 /min Juve Mcpherson MD Work Phone: [facility] 02-25-2025 11:00-0400 SaO2% (BldA) [Mass fraction] 95 % Juve Mcpherson MD Work Phone: [facility] 02-25-2025 11:00-0400 Systolic blood pressure 160 mm[Hg] Juve Mcpherson MD Work Phone: [facility] 02-23-2025 11:41-0400 Body height 170.2 cm Odilia Ernandez 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 Work Phone: [facility] 02-23-2025 11:41-0400 Body mass index (BMI) [Ratio] 32.77 kg/m2 Odilia Ernandez 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 Work Phone: [facility] 02-23-2025 11:41-0400 Body weight 94.89 kg Odilia Ernandez 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 Work Phone: [facility] 02-23-2025 11:41-0400 Diastolic blood pressure 80 mm[Hg] Odilia Ernandez 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 Work Phone: [facility] 02-23-2025 11:41-0400 Heart rate 80 /min Odilia Ernandez 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 Work Phone: [facility] 02-23-2025 11:41-0400 Systolic blood pressure 142 mm[Hg] Odilia Ernandez 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 Work Phone: [facility] 01-29-2025 18:00-0400 Diastolic blood pressure 72 mm[Hg] Juve Mcpherson MD Work Phone: [facility] 01-29-2025 18:00-0400 Heart rate 70 /min Juve Mcpherson MD Work Phone: [facility] 01-29-2025 18:00-0400 Respiratory rate 16 /min Juve Mcpherson MD Work Phone: [facility] 01-29-2025 18:00-0400 SaO2% (BldA) [Mass fraction] 100 % Juve Mcpherson MD Work Phone: [facility] 01-29-2025 18:00-0400 Systolic blood pressure 113 mm[Hg] Juve Mcpherson MD Work Phone: [facility] 01-29-2025 12:01-0400 Body height 170.18 cm Juve Mcpherson MD Work Phone: [facility] 01-29-2025 12:01-0400 Body temperature 97.2 [degF] Juve Mcpherson MD Work Phone: [facility] 01-29-2025 12:01-0400 Body weight 91.6 kg Juve Mcpherson MD Work Phone: [facility] 01-25-2025 13:17-0400 Diastolic blood pressure 86 mm[Hg] [address] 01-25-2025 13:17-0400 Heart rate 66 /min [address] 01-25-2025 13:17-0400 Systolic blood pressure 136 mm[Hg] [address] 01-21-2025 11:41-0400 Body height 170.2 cm Juve Mcpherson MD Work Phone: [facility] 01-21-2025 11:41-0400 Body mass index (BMI) [Ratio] 31.64 kg/m2 Juve Mcpherson MD Work Phone: [facility] 01-21-2025 11:41-0400 Body temperature 97.81 [degF] Juve Mcpherson MD Work Phone: [facility] 01-21-2025 11:41-0400 Body weight 91.63 kg Juve Mcpherson MD Work Phone: [facility] 01-21-2025 11:41-0400 Diastolic blood pressure 74 mm[Hg] Juve Mcpherson MD Work Phone: [facility] 01-21-2025 11:41-0400 Heart rate 96 /min Juve Mcpherson MD Work Phone: [facility] 01-21-2025 11:41-0400 Respiratory rate 18 /min Juve Mcpherson MD Work Phone: [facility] 01-21-2025 11:41-0400 SaO2% (BldA) [Mass fraction] 98 % Juve Mcpherson MD Work Phone: [facility] 01-21-2025 11:41-0400 Systolic blood pressure 182 mm[Hg] Juve Mcpherson MD Work Phone: [facility] 01-08-2025 15:24-0400 Body temperature 98 [degF] Juve Mcpherson MD Work Phone: [facility] 01-08-2025 15:24-0400 Heart rate 74 /min Juve Mcpherson MD Work Phone: [facility] 01-08-2025 15:24-0400 Respiratory rate 16 /min Juve Mcpherson MD Work Phone: [facility] 01-08-2025 15:24-0400 SaO2% (BldA) [Mass fraction] 95 % Juve Mcpherson MD Work Phone: [facility] 01-08-2025 12:00-0400 Diastolic blood pressure 87 mm[Hg] Juve Mcpherson MD Work Phone: [facility] 01-08-2025 12:00-0400 Systolic blood pressure 134 mm[Hg] Juve Mcpherson MD Work Phone: [facility] 01-08-2025 05:40-0400 Body weight 90.5 kg Juve Mcpherson MD Work Phone: [facility] 01-08-2025 00:27-0400 Inhaled oxygen concentration 30 % Juve Mcpherson MD Work Phone: [facility] 01-07-2025 12:43-0400 Body height 170.18 cm Juve Mcpherson MD Work Phone: [facility] 01-06-2025 15:34-0400 Inhaled oxygen flow rate 2 L/min Juve Mcpherson MD Work Phone: [facility] 01-06-2025 14:00-0400 Body height 170.18 cm Juve Mcpherson MD Work Phone: [facility] 01-06-2025 14:00-0400 Body temperature 98 [degF] Juve Mcpherson MD Work Phone: [facility] 01-06-2025 14:00-0400 Body weight 96 kg Juve Mcpherson MD Work Phone: [facility] 01-06-2025 14:00-0400 Diastolic blood pressure 98 mm[Hg] Juve Mcpherson MD Work Phone: [facility] 01-06-2025 14:00-0400 Heart rate 78 /min Juve Mcpherson MD Work Phone: [facility] 01-06-2025 14:00-0400 Respiratory rate 22 /min Juve Mcpherson MD Work Phone: [facility] 01-06-2025 14:00-0400 SaO2% (BldA) [Mass fraction] 100 % Juve Mcpherson MD Work Phone: [facility] 01-06-2025 14:00-0400 Systolic blood pressure 194 mm[Hg] Juve Mcpherson MD Work Phone: [facility] 01-06-2025 10:10-0400 Inhaled oxygen concentration 28 % Juve Mcpherson MD Work Phone: [facility] 12-11-2024 10:19-0400 Body height 170.2 cm Odilia Ernandez 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 Work Phone: [facility] 12-11-2024 10:19-0400 Body mass index (BMI) [Ratio] 31.64 kg/m2 Odilia Ernandez 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 Work Phone: [facility] 12-11-2024 10:19-0400 Body weight 91.63 kg Odilia Ernandez 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 Work Phone: [facility] 12-11-2024 10:19-0400 Diastolic blood pressure 88 mm[Hg] Odilia Ernandez 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 Work Phone: [facility] 12-11-2024 10:19-0400 Heart rate 76 /min Odilia Ernandez 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 Work Phone: [facility] 12-11-2024 10:19-0400 Systolic blood pressure 132 mm[Hg] Odilia Ernandez 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 Work Phone: [facility] 12-09-2024 11:02-0400 Body height 170.2 cm Saul Gonzales MD Work Phone: [facility] 12-09-2024 11:02-0400 Body mass index (BMI) [Ratio] 31.95 kg/m2 Saul Gonzales MD Work Phone: [facility] 12-09-2024 11:02-0400 Body weight 92.53 kg Saul Gonzales MD Work Phone: [facility] 11-26-2024 11:51-0400 Body height 170.2 cm Juve Mcpherson MD Work Phone: [facility] 11-26-2024 11:51-0400 Body mass index (BMI) [Ratio] 31.64 kg/m2 Juve Mcpherson MD Work Phone: [facility] 11-26-2024 11:51-0400 Body temperature 96.01 [degF] Juve Mcpherson MD Work Phone: [facility] 11-26-2024 11:51-0400 Body weight 91.63 kg Juve Mcpherson MD Work Phone: [facility] 11-26-2024 11:51-0400 Diastolic blood pressure 70 mm[Hg] Juve Mcpherson MD Work Phone: [facility] 11-26-2024 11:51-0400 Heart rate 92 /min Juve Mcpherson MD Work Phone: [facility] 11-26-2024 11:51-0400 Respiratory rate 22 /min Juve Mcpherson MD Work Phone: [facility] 11-26-2024 11:51-0400 SaO2% (BldA) [Mass fraction] 98 % Juve Mcpherson MD Work Phone: [facility] 11-26-2024 11:51-0400 Systolic blood pressure 122 mm[Hg] Juve Mcpherson MD Work Phone: [facility] 11-20-2024 11:31-0400 Body temperature 98.8 [degF] Juve Mcpherson MD Work Phone: [facility] 11-20-2024 11:31-0400 Diastolic blood pressure 74 mm[Hg] Juve Mcpherson MD Work Phone: [facility] 11-20-2024 11:31-0400 Respiratory rate 16 /min Juve Mcpherson MD Work Phone: [facility] 11-20-2024 11:31-0400 SaO2% (BldA) [Mass fraction] 99 % Juve Mcpherson MD Work Phone: [facility] 11-20-2024 11:31-0400 Systolic blood pressure 119 mm[Hg] Juve Mcpherson MD Work Phone: [facility] 11-20-2024 11:23-0400 Heart rate 72 /min Juve Mcpherson MD Work Phone: [facility] 11-20-2024 05:06-0400 Body weight 92.5 kg Juve Mcpherson MD Work Phone: [facility] 11-19-2024 15:15-0400 Body height 170.18 cm Juve Mcpherson MD Work Phone: [facility] 08-26-2024 11:46-0500 Body height 170.2 cm Alyssa Quick DO Work Phone: [facility] 08-26-2024 11:46-0500 Body mass index (BMI) [Ratio] 31.92 kg/m2 Alyssa Quick DO Work Phone: [facility] 08-26-2024 11:46-0500 Body weight 92.44 kg Alyssa Quick DO Work Phone: [facility] 08-26-2024 11:46-0500 Diastolic blood pressure 82 mm[Hg] Alyssa Quick DO Work Phone: [facility] 08-26-2024 11:46-0500 Heart rate 68 /min Alyssa Quick DO Work Phone: [facility] 08-26-2024 11:46-0500 Systolic blood pressure 126 mm[Hg] Alyssa Quick DO Work Phone: [facility] 08-12-2024 14:49-0500 Body height 170.2 cm Saul Gonzales MD Work Phone: [facility] 08-12-2024 14:49-0500 Body mass index (BMI) [Ratio] 32.11 kg/m2 Saul Gonzales MD Work Phone: [facility] 08-12-2024 14:49-0500 Body weight 92.99 kg Saul Gonzales MD Work Phone: [facility] 07-15-2024 11:25-0500 Diastolic blood pressure 82 mm[Hg] Juve Mcpherson MD Work Phone: [facility] 07-15-2024 11:25-0500 Heart rate 74 /min Juve Mcpherson MD Work Phone: [facility] 07-15-2024 11:25-0500 Respiratory rate 20 /min Juve Mcpherson MD Work Phone: [facility] 07-15-2024 11:25-0500 SaO2% (BldA) [Mass fraction] 95 % Juve Mcpherson MD Work Phone: [facility] 07-15-2024 11:25-0500 Systolic blood pressure 120 mm[Hg] Juve Mcpherson MD Work Phone: [facility] 07-15-2024 10:40-0500 Inhaled oxygen flow rate 1 L/min Juve Mcpherson MD Work Phone: [facility] 07-15-2024 09:22-0500 Body temperature 97.2 [degF] Juve Mcpherson MD Work Phone: [facility] 07-15-2024 06:38-0500 Body height 170.18 cm Juve Mcpherson MD Work Phone: [facility] 07-15-2024 06:38-0500 Body weight 91.6 kg Juve Mcpherson MD Work Phone: [facility] 07-07-2024 10:39-0500 Body height 170.2 cm Juve Mcpherson MD Work Phone: [facility] 07-07-2024 10:39-0500 Body mass index (BMI) [Ratio] 31.79 kg/m2 Juve Mcpherson MD Work Phone: [facility] 07-07-2024 10:39-0500 Body temperature 97.11 [degF] Juve Mcpherson MD Work Phone: [facility] 07-07-2024 10:39-0500 Body weight 92.08 kg Juve Mcpherson MD Work Phone: [facility] 07-07-2024 10:39-0500 Diastolic blood pressure 84 mm[Hg] Juve Mcpherson MD Work Phone: [facility] 07-07-2024 10:39-0500 Heart rate 103 /min Juve Mcpherson MD Work Phone: [facility] 07-07-2024 10:39-0500 Respiratory rate 20 /min Juve Mcpherson MD Work Phone: [facility] 07-07-2024 10:39-0500 SaO2% (BldA) [Mass fraction] 97 % Juve Mcpherson MD Work Phone: [facility] 07-07-2024 10:39-0500 Systolic blood pressure 160 mm[Hg] Juve Mcpherson MD Work Phone: [facility] 05-27-2024 14:49-0400 Body height 170.2 cm Saul Gonzales MD Work Phone: [facility] 05-27-2024 14:49-0400 Body mass index (BMI) [Ratio] 31.78 kg/m2 Saul Gonzales MD Work Phone: [facility] 05-27-2024 14:49-0400 Body weight 92.03 kg Saul Gonzales MD Work Phone: [facility] 04-23-2024 13:11-0400 Body height 170.2 cm Juve Mcpherson MD Work Phone: [facility] 04-23-2024 13:11-0400 Body mass index (BMI) [Ratio] 32.11 kg/m2 Juve Mcpherson MD Work Phone: [facility] 04-23-2024 13:11-0400 Body temperature 97.3 [degF] Juve Mcpherson MD Work Phone: [facility] 04-23-2024 13:11-0400 Body weight 92.99 kg Juve Mcpherson MD Work Phone: [facility] 04-23-2024 13:11-0400 Diastolic blood pressure 76 mm[Hg] Juve Mcpherson MD Work Phone: [facility] 04-23-2024 13:11-0400 Heart rate 83 /min Juve Mcpherson MD Work Phone: [facility] 04-23-2024 13:11-0400 Respiratory rate 18 /min Juve Mcpherson MD Work Phone: [facility] 04-23-2024 13:11-0400 SaO2% (BldA) [Mass fraction] 98 % Juve Mcpherson MD Work Phone: [facility] 04-23-2024 13:11-0400 Systolic blood pressure 140 mm[Hg] Juve Mcpherson MD Work Phone: [facility] 03-14-2024 09:49-0400 Body height 172.7 cm Saul Gonzales MD Work Phone: [facility] 03-14-2024 09:49-0400 Body mass index (BMI) [Ratio] 29.35 kg/m2 Saul Gonzales MD Work Phone: [facility] 03-14-2024 09:49-0400 Body temperature 97 [degF] Saul Gonzales MD Work Phone: [facility] 03-14-2024 09:49-0400 Body weight 87.54 kg Saul Gonzales MD Work Phone: [facility] 01-15-2024 10:58-0400 Body height 170.2 cm Saul Gonzales MD Work Phone: [facility] 01-15-2024 10:58-0400 Body mass index (BMI) [Ratio] 30.98 kg/m2 Saul Gonzales MD Work Phone: [facility] 01-15-2024 10:58-0400 Body weight 89.72 kg Saul Gonzales MD Work Phone: [facility] 12-03-2023 14:03-0400 Body height 170.2 cm Alyssa Quick DO Work Phone: [facility] 12-03-2023 14:03-0400 Body mass index (BMI) [Ratio] 31.95 kg/m2 Alyssa Quick DO Work Phone: [facility] 12-03-2023 14:030400 Body weight 92.53 kg Alyssa Quick DO Work Phone: [facility] 12-03-2023 14:03-0400 Diastolic blood pressure 82 mm[Hg] Alyssa Quick DO Work Phone: [facility] 12-03-2023 14:03-0400 Heart rate 72 /min Alyssa Quick DO Work Phone: [facility] 12-03-2023 14:03-0400 Systolic blood pressure 132 mm[Hg] Alyssa Quick DO Work Phone: [facility] 11-13-2023 10:26-0400 Body height 170.2 cm Odilia Ernandez 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 Work Phone: [facility] 11-13-2023 10:26-0400 Body mass index (BMI) [Ratio] 31.01 kg/m2 Odilia Ernandez 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 Work Phone: [facility] 11-13-2023 10:26-0400 Body weight 89.81 kg Odilia Ernandez 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 Work Phone: [facility] 11-13-2023 10:26-0400 Diastolic blood pressure 82 mm[Hg] Odilia Ernandez 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 Work Phone: [facility] 11-13-2023 10:26-0400 Heart rate 82 /min Odilia Ernandez 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 Work Phone: [facility] 11-13-2023 10:26-0400 Systolic blood pressure 130 mm[Hg] Odilia Ernandez 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 Work Phone: [facility] 10-23-2023 14:48-0400 Body height 170.2 cm Odilia Ernandez 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 Work Phone: [facility] 10-23-2023 14:48-0400 Body mass index (BMI) [Ratio] 33.67 kg/m2 Odilia Ernandez 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 Work Phone: [facility] 10-23-2023 14:48-0400 Body weight 97.52 kg Odilia Awais 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 Work Phone: [facility] 10-23-2023 14:48-0400 Diastolic blood pressure 80 mm[Hg] Odilia Ernandez 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 Work Phone: [facility] 10-23-2023 14:48-0400 Heart rate 78 /min Odilia Ernandez 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 Work Phone: [facility] 10-23-2023 14:48-0400 Systolic blood pressure 118 mm[Hg] Odilia Ernandez 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 Work Phone: [facility] 10-15-2023 14:08-0400 Body height 170.2 cm Odilia Awais 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 Work Phone: [facility] 10-15-2023 14:08-0400 Body mass index (BMI) [Ratio] 33.83 kg/m2 Odilia Awais 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 Work Phone: [facility] 10-15-2023 14:08-0400 Body weight 97.98 kg Odilia Ernandez 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 Work Phone: [facility] 10-15-2023 14:08-0400 Diastolic blood pressure 68 mm[Hg] Odilia Ernandez 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 Work Phone: [facility] 10-15-2023 14:08-0400 Heart rate 60 /min Odilia Ernandez 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 Work Phone: [facility] 10-15-2023 14:08-0400 Systolic blood pressure 118 mm[Hg] Odilia Ernandez 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 Work Phone: [facility] 07-16-2023 14:37-0500 Body height 170.[address] 07-16-2023 14:37-0500 Body mass index (BMI) [Ratio] 31.17 kg/m2 [address] 07-16-2023 14:37-0500 Body weight 90.[address] 07-16-2023 14:37-0500 Diastolic blood pressure 72 mm[Hg] [address] 07-16-2023 14:37-0500 Systolic blood pressure 110 mm[Hg] [address] 07-02-2023 13:38-0500 Body height 172.7 cm Odilia Ernandez 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 Work Phone: [facility] 07-02-2023 13:38-0500 Body mass index (BMI) [Ratio] 30.56 kg/m2 Odilia Ernandez 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 Work Phone: [facility] 07-02-2023 13:38-0500 Body weight 91.17 kg Odilia Ernandez 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 Work Phone: [facility] 07-02-2023 13:38-0500 Diastolic blood pressure 70 mm[Hg] Odilia Ernandez 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 Work Phone: [facility] 07-02-2023 13:38-0500 Heart rate 68 /min Odilia Ernandez 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 Work Phone: [facility] 07-02-2023 13:38-0500 Systolic blood pressure 114 mm[Hg] Odilia Ernandez 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 Work Phone: [facility] 06-21-2023 09:43-0500 Body height 170.2 cm Ottoniel Trevino MD PhD Work Phone: [facility] 06-21-2023 09:43-0500 Body mass index (BMI) [Ratio] 30.54 kg/m2 Ottoniel Trevino MD PhD Work Phone: [facility] 06-21-2023 09:43-0500 Body weight 88.45 kg Ottoniel Trevino MD PhD Work Phone: [facility] 06-21-2023 09:43-0500 Diastolic blood pressure 78 mm[Hg] Ottoniel Trevino MD PhD Work Phone: [facility] 06-21-2023 09:43-0500 Heart rate 72 /min Ottoniel Trevino MD PhD Work Phone: [facility] 06-21-2023 09:43-0500 SaO2% (BldA) [Mass fraction] 97 % Ottoniel Trevino MD PhD Work Phone: [facility] 06-21-2023 09:43-0500 Systolic blood pressure 134 mm[Hg] Ottoniel Trevino MD PhD Work Phone: [facility] 06-18-2023 14:07-0500 Body height 170.2 cm Alyssa Quick DO Work Phone: [facility] 06-18-2023 14:07-0500 Body mass index (BMI) [Ratio] 31.17 kg/m2 Alyssa Quick DO Work Phone: [facility] 06-18-2023 14:07-0500 Body weight 90.27 kg Alyssa Quick DO Work Phone: [facility] 06-18-2023 14:07-0500 Diastolic blood pressure 72 mm[Hg] Alyssa Quick DO Work Phone: [facility] 06-18-2023 14:07-0500 Heart rate 74 /min Alyssa Quick DO Work Phone: [facility] 06-18-2023 14:07-0500 Systolic blood pressure 122 mm[Hg] Alyssa Quick DO Work Phone: [facility] 05-15-2023 14:54-0400 SaO2% (BldA) [Mass fraction] 100 % Susan Braun MD Work Phone: [facility] 05-15-2023 14:53-0400 Heart rate 87 /min Susan Braun MD Work Phone: [facility] 05-15-2023 14:53-0400 Respiratory rate 19 /min Susan Braun MD Work Phone: [facility] 05-15-2023 14:12-0400 Body temperature 97.9 [degF] Susan Braun MD Work Phone: 5(031)690-972576 [place] [address] 05-15-2023 14:12-0400 Diastolic blood pressure 70 mm[Hg] Susan Braun MD Work Phone: 1(498)666-454576 [place] [address] 05-15-2023 14:12-0400 Systolic blood pressure 116 mm[Hg] Susan Braun MD Work Phone: 5(546)663-419383 [address] 05-15-2023 02:16-0400 Body mass index (BMI) [Ratio] 29.67 kg/m2 Susan Braun MD Work Phone: 3(861)669-191476 [place] [address] 05-15-2023 02:16-0400 Body weight 88.5 kg Susan Braun MD Work Phone: [facility] 05-09-2023 13:09-0400 Body temperature 37.0 Susan Braun MD Work Phone: [facility] 05-09-2023 13:09-0400 SaO2% (BldA) [Mass fraction] 98 % Susan Braun MD Work Phone: [facility] 05-09-2023 05:32-0400 Body temperature 37.0 Susan Braun MD Work Phone: [facility] 05-09-2023 05:32-0400 SaO2% (BldA) [Mass fraction] 100 % Susan Braun MD Work Phone: [facility] 05-08-2023 23:07-0400 Body temperature 37.0 Susan Braun MD Work Phone: 6(804)338-584796 [place] [address] 05-08-2023 23:07-0400 SaO2% (BldA) [Mass fraction] 95 % Susan Braun MD Work Phone: [facility] 05-08-2023 17:52-0400 Body temperature 37.0 Susan Braun MD Work Phone: 4(721)592-085876 [place] [address] 05-08-2023 15:41-0400 Body temperature 37.0 Susan Braun MD Work Phone: 6(395)158-862076 [place] [address] 05-08-2023 15:41-0400 SaO2% (BldA) [Mass fraction] 95 % Susan Braun MD Work Phone: 6(159)750-201676 [place] [address] 05-08-2023 14:01-0400 Body temperature 37.0 Susan Braun MD Work Phone: 5(537)156-457476 [place] [address] 05-08-2023 14:01-0400 SaO2% (BldA) [Mass fraction] 100 % Susan Braun MD Work Phone: [facility] 05-08-2023 12:42-0400 Body temperature 37.0 Susan Braun MD Work Phone: 3(223)886-359076 [place] [address] 05-08-2023 12:42-0400 SaO2% (BldA) [Mass fraction] 99 % Susan Braun MD Work Phone: [facility] 05-08-2023 12:06-0400 Body temperature 37.0 Susan Braun MD Work Phone: 7(628)870-511896 [place] [address] 05-08-2023 12:06-0400 SaO2% (BldA) [Mass fraction] 99 % Susan Braun MD Work Phone: 2(893)816-572296 [place] [address] 05-08-2023 11:41-0400 Body temperature 37.0 Susan Braun MD Work Phone: [facility] 05-08-2023 11:38-0400 Body temperature 37.0 Susan Braun MD Work Phone: 9(619)008-996176 [place] [address] 05-08-2023 11:28-0400 Body temperature 37.0 Susan Braun MD Work Phone: 8(593)989-988976 [place] [address] 05-08-2023 11:28-0400 SaO2% (BldA) [Mass fraction] 100 % Susan Braun MD Work Phone: 2(912)814-326376 [place] [address] 05-08-2023 10:43-0400 Body temperature 37.0 Susan Braun MD Work Phone: 4(935)872-037376 [place] [address] 05-08-2023 10:43-0400 SaO2% (BldA) [Mass fraction] 100 % Susan Braun MD Work Phone: 7(730)974-732576 [place] [address] 05-08-2023 10:23-0400 Body temperature 37.0 Susan Braun MD Work Phone: 4(008)012-348076 [place] [address] 05-08-2023 10:23-0400 SaO2% (BldA) [Mass fraction] 99 % Susan Braun MD Work Phone: 3(563)387-051276 [place] [address] 05-08-2023 08:39-0400 Body temperature 37.0 Susan Braun MD Work Phone: 3(839)765-643976 [place] [address] 05-08-2023 08:39-0400 SaO2% (BldA) [Mass fraction] 97 % Susan Braun MD Work Phone: 0(087)764-824976 [place] [address] 05-08-2023 08:25-0400 Body temperature 37.0 Susan Braun MD Work Phone: 0(519)689-672076 [place] [address] 05-08-2023 08:23-0400 Body temperature 37.0 Susan Braun MD Work Phone: 0(481)997-253676 [place] [address] 05-08-2023 08:23-0400 SaO2% (BldA) [Mass fraction] 96 % Susan Braun MD Work Phone: 2(209)069-973476 [place] [address] 05-08-2023 08:00-0400 Body height 172.7 cm Susan Braun MD Work Phone: [facility] 05-08-2023 00:35-0400 Body temperature 37.0 Susan Braun MD Work Phone: [facility] 05-07-2023 22:55-0400 Body temperature 37.0 Susan Braun MD Work Phone: [facility] 05-07-2023 22:55-0400 SaO2% (BldA) [Mass fraction] 94 % Susan Braun MD Work Phone: [facility] 05-07-2023 20:17-0400 Body temperature 37.0 Susan Braun MD Work Phone: [facility] 05-07-2023 20:17-0400 SaO2% (BldA) [Mass fraction] 98 % Susan Braun MD Work Phone: [facility] 05-03-2023 17:00-0400 Diastolic blood pressure 82 mm[Hg] MD Juve Mcpherson Work Phone: [facility] 05-03-2023 17:00-0400 Heart rate 75 /min MD Juve Mcpherson Work Phone: [facility] 05-03-2023 17:00-0400 Inhaled oxygen flow rate 3 L/min MD Juve Mcpherson Work Phone: [facility] 05-03-2023 17:00-0400 Respiratory rate 24 /min MD Juve Mcpherson Work Phone: [facility] 05-03-2023 17:00-0400 SaO2% (BldA) [Mass fraction] 98 % MD Juve Mcpherson Work Phone: [facility] 05-03-2023 17:00-0400 Systolic blood pressure 116 mm[Hg] MD Juve Mcpherson Work Phone: [facility] 05-03-2023 13:25-0400 Body height 170.18 cm MD Juve Mcpherson Work Phone: [facility] 05-03-2023 13:25-0400 Body temperature 98.1 [degF] MD Juve Mcpherson Work Phone: [facility] 05-03-2023 13:25-0400 Body weight 91.5 kg MD Juve Mcpherson Work Phone: [facility] 04-30-2023 11:14-0400 Body height 172.72 cm Referring Provider Unknown LF-Zpbsowb-Zhytscty W [id number] Work Phone: 04-30-2023 11:14-0400 Body mass index (BMI) [Ratio] 29.98 kg/m2 Referring Provider Unknown DN-Hybpcqe-Hiwxkfsk SJW [id number] Work Phone: 04-30-2023 11:14-0400 Body surface area Derived from formula 2.03 m2 Referring Provider Unknown BV-Puprchb-Xvfrzlsf W [id number] Work Phone: 04-30-2023 11:14-0400 Body weight 89.45 kg Referring Provider Unknown FO-Poaytys-Zqcrbpzu W [id number] Work Phone: 04-01-2023 06:42-0400 Body weight 89.81 kg Mohini Hook MD Work Phone: [facility] 04-01-2023 06:42-0400 Diastolic blood pressure 83 mm[Hg] Mohini Hook MD Work Phone: [facility] 04-01-2023 06:42-0400 Heart rate 67 /min Mohini Hook MD Work Phone: [facility] 04-01-2023 06:42-0400 Systolic blood pressure 139 mm[Hg] Mohini Hook MD Work Phone: [facility] 10-03-2022 15:03-0500 Diastolic blood pressure 80 mm[Hg] MD Juve Mcpherson Work Phone: [facility] 10-03-2022 15:03-0500 Heart rate 75 /min MD Juve Mcpherson Work Phone: [facility] 10-03-2022 15:03-0500 Respiratory rate 18 /min MD Juve Mcpherson Work Phone: [facility] 10-03-2022 15:03-0500 SaO2% (BldA) [Mass fraction] 96 % MD Juve Mcpherson Work Phone: [facility] 10-03-2022 15:03-0500 Systolic blood pressure 150 mm[Hg] MD Juve Mcpherson Work Phone: [facility] 10-03-2022 14:24-0500 Body temperature 97.3 [degF] MD Juve Mcpherson Work Phone: [facility] 10-03-2022 13:54-0500 Inhaled oxygen flow rate 10 L/min MD Juve Mcpherson Work Phone: [facility] 10-03-2022 10:12-0500 Body height 172.72 cm MD Juve Mcpherson Work Phone: [facility] 10-03-2022 10:12-0500 Body mass index (BMI) [Ratio] 28.8 kg/m2 MD Juve Mcpherson Work Phone: [facility] 10-03-2022 10:12-0500 Body weight 86.18 kg MD Juve Mcpherson Work Phone: [facility] 10-01-2022 10:45-0500 Body height 172.72 cm Elsie Olexa Other [employer] Other 10-01-2022 10:45-0500 Body mass index (BMI) [Ratio] 27.21 kg/m2 Elsie Olexa Other [employer] Other 10-01-2022 10:45-0500 Body weight 81.19 kg Elsie Olexa Other [employer] Other 08-20-2022 13:45-0500 Body height 172.72 cm Elsie Olexa Other [employer] Other 08-20-2022 13:45-0500 Body mass index (BMI) [Ratio] 27.21 kg/m2 Elsie Olexa Other [employer] Other 08-20-2022 13:45-0500 Body weight 81.19 kg Elsie Olexa Other [employer] Other 08-17-2022 12:51-0500 Body height 170.2 cm Mohini Hook MD Work Phone: [facility] 08-17-2022 12:51-0500 Body weight 89.36 kg Mohini Hook MD Work Phone: [facility] 08-17-2022 12:51-0500 Diastolic blood pressure 88 mm[Hg] Mohini Hook MD Work Phone: [facility] 08-17-2022 12:51-0500 Heart rate 69 /min Mohini Hook MD Work Phone: [facility] 08-17-2022 12:51-0500 Systolic blood pressure 158 mm[Hg] Mohini Hook MD Work Phone: [facility] 08-14-2022 15:12-0500 Body height 172.72 cm Referring Provider Unknown [facility] [facility] [place] Work Phone: 08-14-2022 15:12-0500 Body mass index (BMI) [Ratio] 29.8 kg/m2 Referring Provider Unknown [facility] [facility] [place] Work Phone: 08-14-2022 15:12-0500 Body surface area Derived from formula 2.03 m2 Referring Provider Unknown [facility] Work Phone: 08-14-2022 15:12-0500 Body weight 88.91 kg Referring Provider Unknown [facility] Work Phone: 07-23-2022 11:15-0500 Body height 172.72 cm Elsie Olexa Other [employer] Other 07-23-2022 11:15-0500 Body mass index (BMI) [Ratio] 27.21 kg/m2 Elsie Olexa Other [employer] Other 07-23-2022 11:15-0500 Body weight 81.19 kg Elsie Olexa Other [employer] Other 04-23-2022 13:00-0400 Body height 172.72 cm Elsie Olexa Other [employer] Other 04-23-2022 13:00-0400 Body mass index (BMI) [Ratio] 27.82 kg/m2 Elsie Olexa Other [employer] Other 04-23-2022 13:00-0400 Body weight 83.01 kg Elsie Olexa Other [employer] Other 12-04-2021 11:15-0400 Body height 172.72 cm Elsie Olexa Other [employer] Other 12-04-2021 11:15-0400 Body mass index (BMI) [Ratio] 27.82 kg/m2 Elsie Olexa Other [employer] Other 12-04-2021 11:15-0400 Body weight 83.01 kg Elsie Olexa Other [employer] Other 07-11-2021 10:15-0500 Body height 172.72 cm Elsie Olexa Other [employer] Other 07-11-2021 10:15-0500 Body mass index (BMI) [Ratio] 28.43 kg/m2 Elsie Escalera Other [employer] Other 07-11-2021 10:15-0500 Body weight 84.82 kg Elsie Escalera Other [employer] 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; Cardiomyopathy, ischemic; Mixed hyperlipidemia; BMI 32.0-32.9,adult; Current smoker; Shortness of breath Start: 04-21-2025 End: 04-21-2025 ambulatory [facility] Ambulatory Start: 04-13-2025 End: 04-13-2025 ambulatory Juve Mcpherson MD Work Phone: [facility] Work Phone: Start: 04-13-2025 End: 04-13-2025 Patient encounter procedure Yvette Norris APRN [facility] Work Phone: Start: 03-26-2025 End: 03-26-2025 Bamboo flowsleola Mcpherson MD Work Phone: [facility] Start: 03-26-2025 End: 03-26-2025 Bamboekaterina flowsleola Mcpherson MD Work Phone: [facility] Start: 03-26-2025 End: 03-26-2025 Office outpatient visit 15 minutes Juve Mcpherson MD Work Phone: [facility] Comment on above: Major depressive dis order, recurrent episode, moderate (HCC) (Primary Dx); Chronic obstructive pulmonary disease, unspecified COPD type (HCC); Actinic keratosis Start: 03-26-2025 End: 03-26-2025 ambulatory JUVE MCPHERSON Not Available Start: 03-16-2025 End: 03-26-2025 Refill Juve Mcpherson MD Work Phone: [facility] Comment on above: Lumbar spondylosis Refill Request Start: 03-10-2025 End: 03-10-2025 ambulatory ODILIA Almanzar [facility] Ambulatory Start: 03-10-2025 End: 03-10-2025 Office outpatient visit 25 minutes Odilia Ernandez 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 Work Phone: [facility] Comment on above: Cardiomyopathy, isch emic (Primary Dx); 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; Primary hypertension; Mixed hyperlipidemia; BMI 33.0-33.9,adult; Shortness of breath; Current smoker; Hypersomnolence Start: 03-01-2025 End: 03-01-2025 Patient encounter procedure Odilia Ernandez MICROWAVE SUPERVISOR -Lab [facility] Work Phone: Start: 03-01-2025 End: 03-01-2025 ambulatory Ayesha Hunter Work Phone: [facility] Work Phone: Start: 02-25-2025 End: 02-25-2025 ambulatory Odilia Ernandez Facility:[facility] Start: 02-25-2025 Non-patient / Non-visit Zak Jimenez MD -[facility] Work Phone: Start: 02-25-2025 End: 02-25-2025 Bamboo flowsheet Juve Mcpherson MD Work Phone: [facility] Start: 02-25-2025 End: 02-25-2025 Dannie flowsleola Mcpherson MD Work Phone: [facility] Start: 02-25-2025 End: 02-25-2025 ambulatory JUVE MCPHERSON Not Available Start: 02-25-2025 End: 02-25-2025 Office outpatient visit 25 minutes Juve Mcpherson MD Work Phone: [facility] Comment on above: Benign essential hyp ertension (Primary Dx); Chronic HFrEF (heart failure with reduced ejection fraction) (HCC); Coronary artery disease involving little shell tribe coronary artery of little shell tribe heart without angina pectoris ; Lumbar spondylosis; Recurrent depressive disorder, current episode mild ; Generalized anxiety disorder ; Actinic keratosis Start: 02-23-2025 End: 02-23-2025 Office outpatient visit 25 minutes Odilia [facility] 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 Work Phone: [facility] Comment on above: Cardiomyopathy, isch emic (Primary Dx); 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; Mixed hyperlipidemia; Primary hypertension; BMI 31.0-31.9,adult; Current smoker; Shortness of breath Start: 02-23-2025 End: 02-23-2025 ambulatory [facility] Ambulatory Start: 02-16-2025 End: 02-16-2025 Refill Juve Mcpherson MD Work Phone: [facility] Comment on above: Lumbar spondylosis Start: 01-29-2025 End: 01-29-2025 Admission to same day surgery center Lan Quick DO -Report Specialist Work Phone: Start: 01-29-2025 End: 01-29-2025 ambulatory Juve Mcpherson MD Work Phone: [facility] Work Phone: Start: 01-25-2025 End: 01-26-2025 Clinisync Result Encounter Generic External Data Provider [facility] External Department Unsolicited Start: 01-25-2025 End: 01-26-2025 Clinisync Result Encounter Generic External Data Provider [facility] External Department Unsolicited Start: 01-25-2025 End: 01-25-2025 Subsequent hospital visit by physician Claudia Francois Admin Room 1 [facility] Comment on above: 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; Cardiomyopathy, ischemic; Primary hypertension; Mixed hyperlipidemia Start: 01-25-2025 End: 01-25-2025 ambulatory [facility] Start: 01-21-2025 End: 01-21-2025 Bamboo flowsheet Juve Mcpherson MD Work Phone: [facility] Start: 01-21-2025 End: 01-21-2025 Bamboo flowsheet Juve Mcpherson MD Work Phone: [facility] Start: 01-21-2025 End: 01-21-2025 Office outpatient visit 15 minutes Juve Mcpherson MD Work Phone: [facility] Comment on above: Acute on chronic HFr EF (heart failure with reduced ejection fraction) (HCC) (Primary Dx) Start: 01-21-2025 End: 01-21-2025 ambulatory JUVE MCPHERSON Not Available Start: 01-20-2025 End: 01-20-2025 Refill Juve Mcpherson MD Work Phone: [facility] Comment on above: Lumbar spondylosis Start: 01-07-2025 End: 01-07-2025 ambulatory UNKNOWN PROVIDER Facility:[facility] Start: 01-06-2025 End: 01-08-2025 Evaluation and management of inpatient Juve Mcpherson MD Work Phone: [facility] Work Phone: Start: 12-11-2024 End: 12-11-2024 ambulatory [facility] Start: 12-11-2024 End: 12-11-2024 Office outpatient visit 25 minutes [facility] 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 Work 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: [facility] Comment on above: 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 (Primary Dx); Cardiomyopathy, ischemic; Primary hypertension; Mixed hyperlipidemia; BMI 31.0-31.9,adult; Current smoker Start: 12-09-2024 End: 12-09-2024 ambulatory SAUL GONZALES [facility] Ambulatory Start: 12-09-2024 End: 12-09-2024 Office outpatient visit 15 minutes Saul Gonzales MD Work Phone: [facility] Comment on above: Chronic maxillary si nusitis (Primary Dx); Nasal crusting; Chronic rhinitis; Nasal congestion Start: 11-26-2024 End: 11-26-2024 Bamboo flowsheet Juve Mcpherson MD Work Phone: [facility] Start: 11-26-2024 End: 11-26-2024 Bamboo flowsheet Juve Mcpherson MD Work Phone: [facility] Start: 11-26-2024 End: 11-26-2024 Office outpatient visit 25 minutes Juve Mcpherson MD Work Phone: [facility] Comment on above: Chronic HFrEF (heart failure with reduced ejection fraction) (CMS/HCC) (Primary Dx); Pulmonary nodules; Benign essential hypertension (CMS/HCC) Start: 11-26-2024 End: 11-26-2024 ambulatory JUVE MCPHERSON Not Available Start: 11-25-2024 End: 11-25-2024 Refill Juve Mcpherson MD Work Phone: [facility] Comment on above: Lumbar spondylosis Start: 11-18-2024 End: 11-20-2024 Evaluation and management of inpatient Juve Mcpherson MD Work Phone: [facility] Work Phone: Start: 10-26-2024 End: 10-26-2024 Refill Juve Mcpherson MD Work Phone: [facility] Comment on above: Lumbar spondylosis Start: 09-28-2024 End: 09-28-2024 Refill Rena Dorado [facility] Comment on above: Lumbar spondylosis Start: 08-27-2024 End: 08-27-2024 ambulatory Juve Mcpherson MD Work Phone: [facility] Work Phone: Start: 08-27-2024 End: 08-27-2024 Patient encounter procedure Juve Mcpherson MD Work Phone: [facility] Work Phone: Start: 08-26-2024 End: 08-26-2024 Office outpatient visit 25 minutes Alyssa Quick DO Work Phone: [facility] Comment on above: 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; History of PTCA; ST elevation myocardial infarction (STEMI), unspecified artery (Multi); Congestive heart failure, NYHA class 2 and ACC/AHA stage C; Cardiomyopathy, ischemic; Primary hypertension; Mixed hyperlipidemia; BMI 31.0-31.9,adult; Current smoker Start: 08-26-2024 End: 08-26-2024 ambulatory [facility] Ambulatory Start: 08-12-2024 End: 08-12-2024 Office outpatient visit 15 minutes Saul Gonzales MD Work Phone: [facility] Comment on above: Chronic maxillary si nusitis (Primary Dx); Nasal crusting; Chronic ethmoidal sinusitis; Nasal congestion with rhinorrhea Start: 08-12-2024 End: 08-12-2024 ambulatory SAUL GONZALES [facility] Ambulatory Start: 08-12-2024 End: 08-13-2024 Clinisync Result Encounter Generic External Data Provider [facility] External Department Unsolicited Start: 08-12-2024 End: 08-13-2024 Clinisync Result Encounter Generic External Data Provider [facility] External Department Unsolicited Start: 07-30-2024 End: 07-30-2024 Refill Juve Mcpherson MD Work Phone: [facility] Comment on above: Lumbar spondylosis Start: 07-21-2024 End: 07-21-2024 Patient encounter procedure Juve Mcpherson MD Work Phone: [facility] Work Phone: Start: 07-21-2024 End: 07-21-2024 ambulatory Elsie Escalera Facility:[facility] Start: 07-15-2024 Non-patient / Non-visit Juve adler MD Work Phone: [facility] Work Phone: Start: 07-15-2024 End: 07-15-2024 Admission to same day surgery center Juve Mcpherson MD Work Phone: [facility] [place] Start: 07-15-2024 End: 07-15-2024 ambulatory Elsie Andersonxa Facility:[facility] Start: 07-09-2024 End: 07-09-2024 ambulatory Elsie Escalera Facility:[facility] Start: 07-09-2024 End: 07-09-2024 Encounter for other preprocedural examination Juve Mcpherson MD Work Phone: [facility] Start: 07-09-2024 End: 07-09-2024 Patient encounter procedure Juve Mcpherson MD Work Phone: [facility] Work Phone: Start: 07-09-2024 End: 07-09-2024 Patient encounter procedure Juve Mcpherson MD Work Phone: [facility]-Pre-Surgical Testing Work Phone: Start: 07-09-2024 End: 07-09-2024 ambulatory Elsie Escalera Facility:[facility] Start: 07-09-2024 Encounter for preprocedural laboratory examination Elsie Escalera [facility] Start: 07-07-2024 End: 07-07-2024 Bamboo flowsheet Juve Mcpherson MD Work Phone: [facility] Start: 07-07-2024 End: 07-07-2024 Bamboo flowsheet Juve Mcpherson MD Work Phone: [facility] Start: 07-07-2024 End: 07-07-2024 Office outpatient visit 25 minutes Juve Mcpherson MD Work Phone: [facility] Comment on above: Preoperative clearan ce (Primary Dx); Primary osteoarthritis of left shoulder; Benign essential hypertension (CMS/HCC); Coronary artery disease involving little shell tribe coronary artery of little shell tribe heart without angina pectoris (CMS/HCC); Dyshidrotic eczema Start: 07-07-2024 End: 07-07-2024 Preoperative state Juve Mcpherson MD Work Phone: [facility] Work Phone: Start: 07-07-2024 End: 07-07-2024 ambulatory JUVE MCPHERSON Not Available Start: 07-06-2024 End: 07-06-2024 Refill Juve Mcpherson MD Work Phone: [facility] Comment on above: Lumbar spondylosis Start: 06-09-2024 End: 06-09-2024 Refill Juve Mcpherson MD Work Phone: [facility] Comment on above: Lumbar spondylosis Start: 05-27-2024 End: 05-27-2024 Office outpatient visit 15 minutes Saul Gonzales MD Work Phone: [facility] Comment on above: Chronic maxillary si nusitis (Primary Dx); Nasal congestion; Rhinorrhea; Nasal crusting Start: 05-27-2024 End: 05-27-2024 ambulatory SAUL GONZALES [facility] Start: 05-27-2024 End: 05-28-2024 Clinisync Result Encounter Generic External Data Provider [facility] External Department Unsolicited Start: 05-27-2024 End: 05-28-2024 Clinisync Result Encounter Generic External Data Provider [facility] External Department Unsolicited Start: 05-11-2024 End: 05-11-2024 Refill Juve Mcpherson MD Work Phone: [facility] Comment on above: MDD (major depressiv e disorder), recurrent episode, moderate (CMS/HCC); Lumbar spondylosis Start: 05-05-2024 End: 05-05-2024 Clinisync Result Encounter Juve Mcpherson MD Work Phone: [facility] Unsolicited Start: 05-05-2024 End: 05-05-2024 Clinisync Result Encounter Juve Mcpherson MD Work Phone: [facility] Unsolicited Start: 04-23-2024 End: 04-23-2024 Bamboo flowsheet Juve Mcpherson MD Work Phone: [facility] Start: 04-23-2024 End: 04-23-2024 Bamboo flowsheet Juve Mcpherson MD [facility] Phone[facility] Start: 04-23-2024 End: 04-23-2024 Office outpatient visit 25 minutes Juve Mcpherson MD Work Phone: [facility] Comment on above: Benign essential hyp ertension (CMS/HCC) (Primary Dx); Recurrent depressive disorder, current episode mild (CMS/HCC); Generalized anxiety disorder (CMS/HCC); Lumbar spondylosis; Ischemic cardiomyopathy (CMS/HCC); Prediabetes; Encounter for long-term current use of medication; Dyslipidemia (CMS/HCC); Gastroesophageal reflux disease without esophagitis; Obesity (BMI 30-39.9); Screening PSA (prostate specific antigen); Colon cancer screening Start: 04-23-2024 End: 04-23-2024 ambulatory JUVE MCPHERSON Not Available Start: 04-13-2024 End: 04-13-2024 Refill Juve Mcpherson MD Work Phone: [facility] Comment on above: Lumbar spondylosis Start: 03-30-2024 End: 03-31-2024 Refill Mohini Hook MD Work Phone: Rheumatology Comment on above: Refill Request Start: 03-14-2024 End: 03-14-2024 Postop follow up visit related to original px Saul Gonzales MD Work Phone: [facility] Comment on above: Chronic maxillary si nusitis (Primary Dx); Chronic ethmoidal sinusitis Start: 02-25-2024 ambulatory SAUL GONZALES [facility] Start: 02-10-2024 End: 02-14-2024 ambulatory CELY GOODE [facility] Start: 02-10-2024 End: 02-10-2024 ambulatory SAUL GONZALES [facility] Start: 02-10-2024 End: 02-10-2024 Subsequent hospital visit by physician Galo [id number] Cr Nonv1 Holter/Ecg Resource [facility] Comment on above: Chronic maxillary si nusitis Start: 01-15-2024 End: 01-15-2024 Office outpatient visit 25 minutes Saul Gonzales MD Work Phone: [facility] Comment on above: Chronic maxillary si nusitis (Primary Dx); Deviated nasal septum; Nasal congestion; Chronic ethmoidal sinusitis Start: 01-14-2024 Patient encounter status MD Gordon Mcpherson Work Phone: [facility] Start: 01-14-2024 Preprocedural examin ation done Juve Mcpherson MD Work Phone: [facility] Start: 01-14-2024 End: 01-14-2024 ambulatory MD Juve Mcpherson Work Phone: [facility] Work Phone: Start: 01-14-2024 End: 01-14-2024 Patient encounter procedure MD Juve Mcpherson Work Phone: [facility] Work Phone: Start: 12-03-2023 End: 12-03-2023 Office outpatient visit 25 minutes Alyssa Quick DO Work Phone: [facility] Comment on above: 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 (CMS-HCC); ST elevation myocardial infarction (STEMI), unspecified artery (Multi); Congestive heart failure, NYHA class 2 and ACC/AHA stage C (Multi); Cardiomyopathy, ischemic; Primary hypertension; Mixed hyperlipidemia; Arteriosclerosis of arterial coronary artery bypass graft; Currently attempting to quit smoking; BMI 31.0-31.9,adult; Other fatigue; Coronary arteriography abnormal Start: 11-26-2023 End: 11-26-2023 ambulatory MD Juve Mcpherson Work Phone: [facility] Work Phone: Start: 11-26-2023 End: 11-26-2023 Patient encounter procedure MD Juve Mcpherson Work Phone: [facility] [place] Work Phone: Start: 11-13-2023 End: 11-13-2023 Office outpatient visit 15 minutes Odilia Ernandez 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 Work Phone: [facility] Comment on above: Congestive heart buster lure, NYHA class 2 and ACC/AHA stage C (CMS/HCC) (Primary Dx); Hypervolemia, unspecified hypervolemia type; 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 (CMS/HCC); Primary hypertension; Mixed hyperlipidemia; BMI 31.0-31.9,adult; Currently attempting to quit smoking Start: 11-05-2023 End: 11-05-2023 ambulatory MD Juve Mcpherson Work Phone: [facility] Work Phone: Start: 11-05-2023 End: 11-05-2023 Patient encounter procedure MD Juve Mcpherson Work Phone: [facility]Ul[facility] [place] Work Phone: Start: 10-23-2023 End: 10-23-2023 Office outpatient visit 15 minutes Odilia Ernandez 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 Work Phone: [facility] Comment on above: Edema of left upper arm (Primary Dx); Hypervolemia, unspecified hypervolemia type; Congestive heart failure, NYHA class 2 and ACC/AHA stage C (CMS/HCC); Currently attempting to quit smoking Start: 10-23-2023 End: 10-23-2023 ambulatory MD Juve Mcpherson Work Phone: [facility] Work Phone: Start: 10-23-2023 End: 10-23-2023 Patient encounter procedure MD Juve Mcpherson Work Phone: [facility] [place] Work Phone: Start: 10-15-2023 End: 10-15-2023 Office outpatient visit 15 minutes Odilia Ernandez 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 Work Phone: [facility] Comment on above: Edema of left upper arm (Primary Dx); BMI 33.0-33.9,adult; Currently attempting to quit smoking; Coronary arteriography abnormal; Acute systolic heart failure (CMS/HCC); Hypervolemia, unspecified hypervolemia type Start: 07-16-2023 End: 07-16-2023 ambulatory MD Juve Mcpherson Work Phone: [facility] Work Phone: Start: 07-16-2023 End: 07-16-2023 Patient encounter procedure MD Juve Mcpherson Work Phone: [facility] [place] Work Phone: Start: 07-16-2023 End: 07-16-2023 Subsequent hospital visit by physician Claudia Morgan Echo/Vasc Room 2 [facility] Comment on above: Cardiomyopathy, isch emic Start: 07-09-2023 End: 07-09-2023 ambulatory MD Juve Mcpherson Work Phone: [facility] Work Phone: Start: 07-09-2023 End: 07-09-2023 Patient encounter procedure MD Juve Mcpherson Work Phone: [facility] Work Phone: Start: 07-02-2023 End: 07-02-2023 Office outpatient visit 25 minutes Odilia Ernandez 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 Work Phone: [facility] Comment on above: 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 (CMS/HCC) (Primary Dx); Cardiomyopathy, ischemic; Primary hypertension; Mixed hyperlipidemia; BMI 30.0-30.9,adult; Shortness of breath; Former smoker Start: 06-21-2023 End: 06-21-2023 Subsequent hospital visit by physician Galo Finnegan X-Ray 1 [facility] Comment on above: 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 (CMS/HCC) Start: 06-21-2023 End: 06-21-2023 Postop follow up visit related to original px Ottoniel Trevino MD PhD Work Phone: [facility] Comment on above: Atherosclerosis of n ative coronary artery with angina pectoris, unspecified whether little shell tribe or transplanted heart ([facility]/HCC) (Primary Dx); S/P CABG x 2 Start: 06-18-2023 End: 06-18-2023 Office outpatient visit 40 minutes Alyssa Quick DO Work Phone: [facility] Comment on above: ST elevation myocard ial infarction (STEMI), unspecified artery ([facility]/HCC); 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, unspecified whether little shell tribe or transplanted heart (CMS/HCC); Hypertension, unspecified type; Coronary arteriography abnormal; Acute systolic heart failure (CMS/HCC); S/P CABG x 2; HFrEF (heart failure with reduced ejection fraction) ([facility]); Acute DE, anterior wall ([facility]) Start: 05-29-2023 End: 05-29-2023 Subsequent hospital visit by physician Galo [id number] Cr Nonv1 Holter/Ecg Resource [facility] Start: 05-03-2023 Chart Update Referring Prov ider Unknown [facility] 250 DO Work Phone: Start: 05-03-2023 End: 05-15-2023 Patient encounter status Susan Braun MD Work Phone: [facility] Work Phone: Start: 05-03-[address] Alyssa Quick Facility:[id number] Start: 05-03-2023 End: 05-15-2023 Evaluation and management of inpatient Susan Braun MD Work Phone: [facility] 3 Start: 05-03-2023 ambulatory PCP UNKNOWN Facility:[id number] Start: 04-30-2023 Office outpatient ne w 45 minutes Referring Provider Unknown [id number] [id number] Work Phone: Start: 04-30-[address] Luzmaria Gong Jr Facility:[id number] Start: 04-23-2023 End: 04-23-2023 ambulatory Elsie Escalera Other [employer] Other Start: 04-23-2023 Encounter for other preprocedural examination Elsie Andersonxa [facility] Start: 04-23-2023 Office outpatient vi sit 25 minutes Elsie Andersonxa [facility] Start: 04-03-2023 Telephone encounter Mohini young MD Work Phone: Rheumatology Comment on above: Results Start: 04-01-2023 ambulatory Lisa M Dot ocyohan RT(R) Radiology Comment on above: Radio Gen RMP Start: 04-01-2023 End: 04-01-2023 Patient encounter procedure Mohini Hook MD Work Phone: Rheumatology Comment on above: Secondary osteoarthr itis of multiple sites (Primary Dx); Vitamin B12 deficiency; Vitamin D deficiency; Chronic pain of both knees; Bilateral hand pain; Rotator cuff arthropathy, left; Chronic pain of both shoulders; Chronic bilateral low back pain without sciatica; Chronic hip pain, bilateral; Raynaud's phenomenon without gangrene; Family history of rheumatoid arthritis; Family history of gout Start: 04-01-2023 End: 04-01-2023 Subsequent hospital visit by physician Phillip [facility] Comment on above: Chronic pain of both knees [M25.561, M25.562, G89.29] Start: 01-28-2023 End: 01-29-2023 ambulatory Luzmaria Clifford Gong Facility:[facility] Start: 01-28-2023 End: 01-28-2023 Patient encounter procedure Luzmaria Clifford [facility] Start: 01-22-2023 End: 01-22-2023 ambulatory Elsie Escalera Other [employer] Other Start: 01-22-2023 Office outpatient vi sit 15 minutes Elsie Andersonxa [facility] Start: 12-28-2022 End: 12-28-2022 Subsequent hospital visit by physician Phillip Argueta Work Phone: Radiology Comment on above: Left shoulder pain, unspecified chronicity [M25.512] Start: 11-26-2022 End: 11-26-2022 ambulatory Elsie Olexa Other [employer] Other Start: 11-26-2022 Postop follow up vis it related to original px Elsie Olexa [facility] Start: 11-20-2022 End: 11-20-[address] JUVE MCPHERSON Facility:H1 Start: 10-30-[address] JUVE MCPHERSON Facil ity:H1 Start: 10-11-2022 End: 10-11-2022 ambulatory Elsie Olexa Other [employer] Other Start: 10-11-2022 Postop follow up vis it related to original px Elsie Olexa [facility] Start: 10-04-2022 ambulatory ELSIE OLEXA Facility:H 1 Start: 10-03-2022 Telephone encounter Mohini young MD Work Phone: Rheumatology Comment on above: Results Start: 10-03-2022 End: 10-03-2022 Admission to same day surgery center MD Juve Mcpherson Work Phone: [facility] [place] Start: 10-03-2022 End: 10-03-2022 ambulatory MD Juve Mcpherson Work Phone: [facility] Work Phone: Start: 10-01-2022 End: 10-02-[address] GOLDBERG [facility] [employer] Other Start: 10-01-2022 Encounter for other preprocedural examination Elsie Olexa [facility] Start: 10-01-2022 Office outpatient vi sit 25 minutes Elsie Olexa [facility] Start: 10-01-2022 Telephone encounter Elsie Olexa [facility] Start: 09-20-2022 End: 09-20-2022 ambulatory MD Juve Mcpherson Work Phone: [facility] Work Phone: Start: 09-20-2022 End: 09-20-2022 Patient encounter procedure MD Juve Mcpherson Work Phone: [facility]-Pre-Surgical Testing Work Phone: Start: 09-12-2022 Refill Mohini Hook MD Work Phone: Rheumatology Comment on above: Refill Request Start: 08-20-2022 End: 08-20-2022 ambulatory Elsie Escalera Other [employer] Other Start: 08-20-2022 Encounter for other preprocedural examination Elsie Escalera [facility] Start: 08-20-2022 Office outpatient vi sit 25 minutes Elsie Escalera [facility] Start: 08-18-2022 Telephone encounter Mohini young MD Work Phone: Rheumatology Comment on above: Results Start: 08-17-2022 ambulatory Radha Hathaway RT(R) [facility] adiology Comment on above: Radiology XR Start: 08-17-2022 End: 08-17-2022 Patient encounter procedure Radha Hathaway RT(R) [facility] Comment on above: Secondary osteoarthr itis of multiple sites (Primary Dx); Elevated LFTs; Anemia of chronic disease; Elevated sed rate; Elevated C-reactive protein (CRP); Vitamin D deficiency; Vitamin B12 deficiency; Hyperuricemia; Screening-pulmonary TB; Bilateral hand pain; Rotator cuff arthropathy, left; Chronic pain of both shoulders; Chronic bilateral low back pain without sciatica; Chronic hip pain, bilateral; Raynaud's phenomenon without gangrene; Bilateral carpal tunnel syndrome; Family history of rheumatoid arthritis; Family history of gout Start: 08-17-2022 End: 08-17-2022 Subsequent hospital visit by physician Xr [facility] Comment on above: Bilateral hand pain [M79.641, M79.642] Start: 08-14-2022 Patient encounter procedure Referring Provider Unknown [facility] Work Phone: Start: 08-14-[address] Guevara Coello [facility]:[id number] Start: 07-23-2022 End: 07-23-2022 ambulatory Elsie Olexa Other [employer] Other Start: 07-23-2022 Office outpatient vi sit 25 minutes Elsie Olexa [facility] Start: 04-23-2022 End: 04-23-2022 ambulatory Elsie Olexa Other [employer] Other Start: 04-23-2022 Office outpatient vi sit 25 minutes Elsie Olexa [facility] Start: 04-06-2022 End: 04-06-2022 Patient encounter procedure MD Juve Mcpherson Work Phone: [facility] [address] Start: 03-21-2022 End: 03-21-[address] JUVE MCPHERSON Facility:H1 Start: 03-01-2022 End: 03-01-2022 Patient encounter procedure MD Juve Mcpherson Work Phone: [facility] [place] [facility] Start: 12-04-2021 End: 12-04-2021 ambulatory Elsie Olexa Other [employer] Other Start: 12-04-2021 Office outpatient vi sit 15 minutes Elsie Olexa [facility] Start: 07-11-2021 End: 07-11-2021 ambulatory Elsie Olexa Other [employer] Other Start: 07-11-2021 Office outpatient vi sit 15 minutes Elsie Olexa [facility] Procedures Date Procedure Procedure Detail Performing Clinician Start: 01-29-2025 CL LHC & COR Angio w/grafts Juve Mcpherson MD Work Phone: Start: 01-25-2025 NUCLEAR STRESS TEST EXERCISE (CARD) Generic External Data Provider Start: 01-06-2025 Bacteria identified in Blood by Culture Juve Mcpherson MD Work Phone: Start: 01-06-2025 Viral nucleic acid assay Juve Mcpherson MD Work Phone: Start: 01-06-2025 CT of head without contrast Juve Mcpherson MD Work Phone: Start: 01-06-2025 Plain chest X-ray Juve Mcpherson MD Work Phone: Start: 12-09-2024 QUEST CULTURE, AEROBIC AND ANAEROBIC W/GRAM STAIN Saul Gonzales MD Work Phone: Start: 11-18-2024 Plain chest X-ray Juve Mcpherson MD Work Phone: Start: 11-18-2024 Bacteria identified in Blood by Culture Juve Mcpherson MD Work Phone: Start: 11-18-2024 Viral nucleic acid assay Juve Mcpherson MD Work Phone: Start: 08-27-2024 Plain X-ray of left shoulder Juve Mcpherson MD Work Phone: Start: 08-26-2024 History of percutaneous transluminal coronary angioplasty History of PTCA Alyssa Quick DO Work Phone: Start: 08-12-2024 Cul bact xcpt urine blood/stool aerobic isol Saul Gonzales MD Work Phone: Start: 08-12-2024 MISCELLANEOUS CULT./SM.BACT. Generic External Data Provider Start: 07-21-2024 Plain X-ray of left shoulder Juve Mcpherson MD Work Phone: Start: 07-15-2024 Plain X-ray of left shoulder Juve Mcpherson MD Work Phone: Start: 07-15-2024 Prosthetic total arthroplasty of left shoulder Juve Mcpherson MD Work Phone: Start: 07-09-2024 Plain X-ray of left shoulder Juve Mcpherson MD Work Phone: Start: 05-27-2024 Cul bact xcpt urine blood/stool aerobic isol Saul Gonzales MD Work Phone: Start: 05-27-2024 MISCELLANEOUS CULT./SM.BACT. Generic External Data Provider Start: 05-05-2024 ALL CBC WITH AUTO DIFF Juve Mcpherson MD Work Phone: Start: 01-14-2024 Plain X-ray of left shoulder MD Juve Mcpherson Work Phone: Start: 11-05-2023 Duplex scan veins of upper limb MD Juve Mcpherson Work Phone: Start: 06-21-2023 Radiologic exam chest 2 views Ottoniel Treivno MD PhD Work Phone: Start: 05-29-2023 Ecg routine ecg w/least 12 lds trcg only w/o i&r Shonnaila Cid MICROWAVE SUPERVISOR-[facility] Work Phone: Start: 05-15-2023 Renal function panel Jeanette Perez [facility] Work Phone: Start: 05-14-2023 AIRWAY CLEARANCE TECHNIQUES Ottoniel Trevino MD PhD Work Phone: Start: 05-14-2023 PULSE OXIMETRY, SPOT Shonna Hayes Cla MICROWAVE SUPERVISOR-[facility] Work Phone: Start: 05-14-2023 AIRWAY CLEARANCE TECHNIQUES Ottoniel Trevino MD PhD Work Phone: Start: 05-14-2023 PULSE OXIMETRY, [facility] Shonna lomax MICROWAVE SUPERVISOR-[facility] Work Phone: Start: 05-14-2023 PULSE OXIMETRY, SPOT Shonna lomax MICROWAVE SUPERVISOR-[facility] Work Phone: Start: 05-14-2023 Renal function panel Jeanette Xu Perez APR N-[employer]LE[employer] MANAGER Work Phone: Start: 05-14-2023 PULSE OXIMETRY, SPOT Shonna lomax MICROWAVE SUPERVISOR-[facility] Work Phone: Start: 05-14-2023 PULSE OXIMETRY, SPOT Shonna lomax MICROWAVE SUPERVISOR-[facility] Work Phone: Start: 05-13-2023 PULSE OXIMETRY, SPOT Shonna lomax MICROWAVE SUPERVISOR-[facility] Work Phone: Start: 05-13-2023 Renal function panel Jeanette Perez APR N-[employer]LE[employer] MANAGER Work Phone: Start: 05-13-2023 Echo tthrc r-t 2d w/wom-mode compl spec&colr d Shonna Cid 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 Work Phone: Start: 05-13-2023 Dup-scan xtr veins unilateral/limited study Mariela Soto Edgard 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 Work Phone: Start: 05-13-2023 PULSE OXIMETRY, SPOT Shonna Hayes Cla rk 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 Work Phone: Start: 05-13-2023 PULSE OXIMETRY, SPOT Shonna Hayes Cla rk 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 Work Phone: Start: 05-13-2023 PULSE OXIMETRY, SPOT Shonna Hayes Cla rk 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 Work Phone: Start: 05-12-2023 PULSE OXIMETRY, SPOT Shonna Hayes Cla rk 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 Work Phone: Start: 05-12-2023 AIRWAY CLEARANCE TECHNIQUES Shonna Cid 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 Work Phone: Start: 05-12-2023 PULSE OXIMETRY, SPOT Shonna Hayes Cla rk 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 Work Phone: Start: 05-12-2023 Renal function panel Shonna Hayes Cla rk 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 Work Phone: Start: 05-12-2023 PULSE OXIMETRY, SPOT Shonna Hayes Cla rk 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 Work Phone: Start: 05-12-2023 PULSE OXIMETRY, SPOT Shonna Hayes Cla rk 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 Work Phone: Start: 05-12-2023 PULSE OXIMETRY, SPOT Shonna lomax 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 Work Phone: Start: 05-12-2023 PULSE OXIMETRY, SPOT Shonna Hayes Cla rk 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 Work Phone: Start: 05-11-2023 PULSE OXIMETRY, SPOT Shonna lomax 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 Work Phone: Start: 05-11-2023 AIRWAY CLEARANCE TECHNIQUES Shonna Hayes Jose Roberto 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 Work Phone: Start: 05-11-2023 PULSE OXIMETRY, SPOT Shonna Hayes Kirk rk 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 Work Phone: Start: 05-11-2023 Renal function panel Shonna Hayes Kirk monie 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 Work Phone: Start: 05-11-2023 AIRWAY CLEARANCE TECHNIQUES Shonna Hayes Jose Roberto 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 Work Phone: Start: 05-11-2023 PULSE OXIMETRY, SPOT Shonna lomax 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 Work Phone: Start: 05-11-2023 Glucose quantitative blood xcpt reagent strip Ottoniel Trevino MD PhD Work Phone: Start: 05-11-2023 Radiologic exam chest 2 views Shonna Freddy Cid 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 Work Phone: Start: 05-11-2023 AIRWAY CLEARANCE TECHNIQUES Shonna Hayes Jose Roberto 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 Work Phone: Start: 05-11-2023 PULSE OXIMETRY, SPOT Shonna Hayes Kirk rk 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 Work Phone: Start: 05-10-2023 PREPARE RBC Carmen Rosado MICROWAVE SUPERVISOR-CN P Work Phone: Start: 05-10-2023 Glucose quantitative blood xcpt reagent strip Ottoniel Trevino MD PhD Work Phone: Start: 05-10-2023 Renal function panel Trent Todd PRN-BUNGY JUMP MASTER Work Phone: Start: 05-10-2023 Glucose quantitative blood xcpt reagent strip Ottoniel Trevino MD PhD Work Phone: Start: 05-10-2023 Glucose quantitative blood xcpt reagent strip Ottoniel Trevino MD PhD Work Phone: Start: 05-10-2023 Radiologic exam chest single view Zil Calderon DO Work Phone: Start: 05-10-2023 Renal function panel Kayley Souza 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 Work Phone: Start: 05-09-2023 Glucose quantitative blood xcpt reagent strip Ottoniel Trevino MD PhD Work Phone: Start: 05-09-2023 End: 05-09-2023 Chloride bld Trent Rocha AP RN-BUNGY JUMP MASTER Work Phone: Start: 05-09-2023 EXTUBATION Mariela Brittany Rene MICROWAVE SUPERVISOR -[employer]GY JUMP MASTER Work Phone: Start: 05-09-2023 Glucose quantitative blood xcpt reagent strip Ottoniel Trevino MD PhD Work Phone: Start: 05-09-2023 Glucose quantitative blood xcpt reagent strip Ottoniel Trevino MD PhD Work Phone: Start: 05-09-2023 End: 05-09-2023 Renal function panel Zil Calderon DO Work Phone: Start: 05-09-2023 Radiologic exam chest single view Zil Calderon DO Work Phone: Start: 05-09-2023 Glucose quantitative blood xcpt reagent strip Ottoniel Trevino MD PhD Work Phone: Start: 05-08-2023 Chloride andrea Trevino MD P hD Work Phone: Start: 05-08-2023 Glucose quantitative blood xcpt reagent strip Ottoniel Trevino MD PhD Work Phone: Start: 05-08-2023 Radiologic exam chest single view Trent Rocha 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 Work Phone: Start: 05-08-2023 Radiologic exam abdomen 1 view Trent Rocha 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 Work Phone: Start: 05-08-2023 Glucose quantitative blood xcpt reagent strip Ottoniel Trevino MD PhD Work Phone: Start: 05-08-2023 Gases blood ph direct jass xcpt pulse oximitry Ottoniel Trevino MD PhD Work Phone: Start: 05-08-2023 End: 05-08-2023 Chloride bld Trent Rocha AP RN-BUNGY JUMP MASTER Work Phone: Start: 05-08-2023 Glucose quantitative blood xcpt reagent strip Ottoniel Trevino MD PhD Work Phone: Start: 05-08-2023 End: 05-08-2023 Coagulation time activated Ottoniel Trevino MD PhD Work Phone: Start: 05-08-2023 Us guidance needle placement img s&i Rudy Plummer MD Work Phone: Start: 05-08-2023 Gases blood ph direct jass xcpt pulse oximitry Ottoniel Trevino MD PhD Work Phone: Start: 05-08-2023 End: 05-08-2023 Coagulation time activated Ottoniel Trevino MD PhD Work Phone: Start: 05-08-2023 End: 05-08-2023 Chloride bld Ottoniel Trevino MD P hD Work Phone: Start: 05-08-2023 End: 05-08-2023 Coagulation time activated Ottoniel Trevino MD PhD Work Phone: Start: 05-08-2023 WEANING PARAMETERS Zil Calderon DO Work Phone: Start: 05-08-2023 Renal function panel Ottoniel Trevino MD PhD Work Phone: Start: 05-08-2023 Radiologic exam chest single view Zil Calderon DO Work Phone: Start: 05-08-2023 Glucose quantitative blood xcpt reagent strip Ottoniel Trevino MD PhD Work Phone: Start: 05-08-2023 Radiologic exam chest single view Zil Calderon DO Work Phone: Start: 05-08-2023 Glucose quantitative blood xcpt reagent strip Ottoniel Trevino MD PhD Work Phone: Start: 05-08-2023 Calcium ionized Ottoniel Trevino MD P hD Work Phone: Start: 05-07-2023 End: 05-07-2023 Chloride bld Zil Calderon DO Work Phone: Start: 05-07-2023 Radiologic exam chest single view Zil Calderon DO Work Phone: Start: 05-07-2023 WEANING PARAMETERS Zil Calderon DO Work Phone: Start: 05-07-2023 End: 05-07-2023 Coagulation time activated Ottoniel Trevino MD PhD Work Phone: Start: 05-07-2023 End: 05-07-2023 Coagulation time activated Ottoniel Trevino MD PhD Work Phone: Start: 05-07-2023 Coagulation time activated Ottoniel Trevino MD PhD Work Phone: Start: 05-07-2023 Glucose quantitative blood xcpt reagent strip Charlie Toledo MD Work Phone: Start: 05-07-2023 Carboxyhemoglobin quantitative Charlie Toledo MD Work Phone: Start: 05-07-2023 Glucose quantitative blood xcpt reagent strip Charlie Toledo MD Work Phone: Start: 05-07-2023 Radiologic exam chest single view Anderson Martins MD Work Phone: Start: 05-07-2023 ANESTHESIA INTRAOPERATIVE SUNITA Michelet L Pad DO Work Phone: Start: 05-07-2023 Blood typing serologic rh (d) Jeanette Perez MICROWAVE SUPERVISOR-FOOD AND BEVERAGE OUTLETS MANAGER Work Phone: Start: 05-07-2023 End: 05-07-2023 Renal function panel Maty Chambers MD Work Phone: Start: 05-06-2023 Glucose quantitative blood xcpt reagent strip Charlie Toledo MD Work Phone: Start: 05-06-2023 Glucose quantitative blood xcpt reagent strip Charlie Toledo MD Work Phone: Start: 05-06-2023 Duplex scan extracranial art compl bi study Carmen Rosado [facility] Work Phone: Start: 05-06-2023 Dup-scan xtr veins complete bilateral study Carmen Rosado [facility] Work Phone: Start: 05-06-2023 Glucose quantitative blood xcpt reagent strip Charlie Toledo MD Work Phone: Start: 05-06-2023 Comprehensive metabolic panel Juan Zamora MD Work Phone: Start: 05-05-2023 Assay of troponin quantitative uJan Zamora MD Work Phone: Start: 05-05-2023 Urinalysis complete W Reflex Culture panel - Urine Carmen Rosado [facility] Work Phone: Start: 05-05-2023 Urnls dip stick/tablet reagent auto microscopy Carmen Rosado [facility] Work Phone: Start: 05-05-2023 Glucose quantitative blood xcpt reagent strip Susan Braun MD Work Phone: Start: 05-05-2023 Sars-cov-2 detection by dna/rna Carmen Adang [facility] Work Phone: Start: 05-05-2023 Glucose quantitative blood xcpt reagent strip Susan Braun MD Work Phone: Start: 05-05-2023 Ct thorax w/o contrast material Juan Zamora MD Work Phone: Start: 05-05-2023 Radiologic exam chest single view Juan Zamora MD Work Phone: Start: 05-05-2023 Glucose quantitative blood xcpt reagent strip Susan Braun MD Work Phone: Start: 05-05-2023 Renal function panel Maty Chambers MD Work Phone: Start: 05-04-2023 End: 05-04-2023 Comprehensive metabolic panel Susan Braun MD Work Phone: Start: 05-04-2023 Lipid panel Maty Chambers MD Work Phone: Start: 05-04-2023 Comprehensive metabolic panel Interface Unspecifiedprovider Work Phone: Start: 05-04-2023 Lactate dehydrogenase [Enzymatic activity/volume] in Serum or Plasma by Lactate to pyruvate reaction Interface Unspecifiedprovider Work Phone: Start: 05-04-2023 Magnesium [Mass/volume] in Serum or Plasma Interface Unspecifiedprovider Work Phone: Start: 05-04-2023 Prothrombin time (PT) Interface Unspecifiedprovider Work Phone: Start: 05-04-2023 Heparin assay Maty Chambers MD Work Phone: Start: 05-04-2023 Glucose quantitative blood xcpt reagent strip Susan Braun MD Work Phone: Start: 05-04-2023 Echo tthrc r-t 2d w/wom-mode compl spec&colr d Susan Braun MD Work Phone: Start: 05-04-2023 Glucose quantitative blood xcpt reagent strip Susan Braun MD Work Phone: Start: 05-04-2023 Heparin assay Susan Braun MD Work Phone: Start: 05-04-2023 End: 05-04-2023 Comprehensive metabolic panel Susan Braun MD Work Phone: Start: 05-04-2023 Lipid 1996 panel - Serum or Plasma Alyssa Quick DO Work Phone: Start: 05-03-2023 Antibody screen SUSAN BRAUN Comment on above: Performed By: #### HAUF #### [facility] [address] [place] [address] Start: 05-03-2023 Methicillin resistant Staphylococcus aureus [Presence] in Nose by Organism specific culture Anderson Martins MD Work Phone: Start: 05-03-2023 Urinalysis Anderson Martins MD Work Phone: Start: 05-03-2023 Urinalysis microscopic panel - Urine Qualitative by Automated Anderson Martins MD Work Phone: Start: 05-03-2023 Radiologic exam chest single view Anderson Martins MD Work Phone: Start: 05-03-2023 Blood type and Indirect antibody screen panel - Blood Susan Braun MD Work Phone: Start: 05-03-2023 Complete blood count Susan Braun MD Work Phone: Start: 05-03-2023 Heparin unfractionated [Units/volume] in Platelet poor plasma by Chromogenic method Susan Braun MD Work Phone: Start: 05-03-2023 Lactate dehydrogenase [Enzymatic activity/volume] in Serum or Plasma by Lactate to pyruvate reaction Susan Braun MD Work Phone: Start: 05-03-2023 Magnesium [Mass/volume] in Serum or Plasma Susan Braun MD Work Phone: Start: 05-03-2023 Renal function panel Susan Braun MD Work Phone: Start: 05-03-2023 Troponin I.cardiac panel - Serum or Plasma by High sensitivity method Susan Braun MD Work Phone: Start: 05-03-2023 ELECTROCARDIOGRAM 12 LEAD Kayley headley MD Work Phone: Start: 04-01-2023 Radiologic exam knee complete 4/more views Mohini Hook MD Work Phone: Start: 12-28-2022 Radex shoulder complete minimum 2 views Zain Matthew MD Work Phone: Start: 10-03-2022 Procedure on shoulder joint MD Juve Mcpherson Work Phone: Start: 08-17-2022 Radex hand minimum 3 views Mohini Hook MD Work Phone: Start: 04-06-2022 MRI of left shoulder MD Juve Mcpherson Work Phone: Start: 03-01-2022 Plain X-ray of left shoulder MD Juve Mcpherson Work Phone: History of coronary artery bypass grafting S/P CABG x 2 Susan Braun MD Work Phone: History of coronary artery bypass grafting S/P CABG x 2 Alyssa Quick DO Work Phone: History of coronary artery bypass grafting S/P CABG x 2 Ottoniel Trevino MD PhD Work Phone: Plan of Treatment Date Care Activity Detail Author Start: 2039 RSV Vaccine (1 - 1-dose 75+ series) RSV Vaccine (1 - 1-dose 75+ series) [facility] Start: 05-04-[address] [facility] Start: 11-18-[address] [facility] Start: 08-24-2025 End: 08-24-2025 Patient encounter procedure 08/24/2025 2:00 PM EST Office Visit [facility] [address] [place] [address] Odilia Ernandez, 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 [address] [place] [address] [facility] Start: 08-17-2025 DIABETES SCREEN DIABETES SCREEN [facility] Start: 08-17-2025 Diabetes Screening Diabetes Screening [facility] Start: 05-26-2025 End: 05-26-2025 Patient encounter procedure 05/26/2025 10:30 AM EDT Office Visit [facility] [address] [place] [address] Juve Mcpherson MD [address] [place] [id number] [facility] Start: 04-21-2025 End: 04-21-2025 Patient encounter procedure 04/21/2025 1:00 PM EDT Office Visit [facility] [address] [facility] [address] [place] [id number] Odilia Ernandez, 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 [address] [facility] [address] [place] [address] [facility] Start: 04-05-2025 COVID-19 Vaccine ( season) COVID-19 Vaccine ( season) [facility] Start: 04-05-2025 Influenza vaccination [facility] Start: 03-29-2025 End: 03-29-2025 ambulatory 03/29/2025 2:00 PM EDT Results Only [facility] [address] [place] [address] [place] [facility] Comment on above: lab Start: 03-26-2025 End: 03-26-2025 Patient encounter procedure [facility] Comment on above: Arrived Start: 03-18-2025 End: 03-18-2026 25-hydroxyvitamin D3 [Mass/volume] in Serum or Plasma VITAMIN D 25 HYDROXY Lab Routine Vitamin D deficiency Expected: 03/18/2025 (Approximate), Expires: 03/18/2026 [facility] Comment on above: Expected: 03/18/2025 (Approximate), Expi res: 03/18/2026 Start: 03-18-2025 End: 03-18-2026 C reactive protein [Mass/volume] in Serum or Plasma C-REACTIVE PROTEIN Lab Routine Elevated sed rate Elevated C-reactive protein (CRP) Expected: 03/18/2025 (Approximate), Expires: 03/18/2026 [facility] Comment on above: Expected: 03/18/2025 (Approximate), Expi res: 03/18/2026 Start: 03-18-2025 End: 03-18-2026 CBC panel - Blood by Automated count COMPLETE BLOOD COUNT Lab Routine Anemia of chronic disease Expected: 03/18/2025 (Approximate), Expires: 03/18/2026 [facility] Comment on above: Expected: 03/18/2025 (Approximate), Expi res: 03/18/2026 Start: 03-18-2025 End: 03-18-2026 Comprehensive metabolic 2000 panel - Serum or Plasma COMPREHENSIVE METABOLIC PANEL Lab Routine Elevated LFTs Expected: 03/18/2025 (Approximate), Expires: 03/18/2026 [facility] Work Phone: Comment on above: Expected: 03/18/2025 (Approximate), Expi res: 03/18/2026 Start: 03-18-2025 End: 03-18-2026 Erythrocyte sedimentation rate SEDIMENTATION RATE, WESTERGREN Lab Routine Elevated sed rate Elevated C-reactive protein (CRP) Expected: 03/18/2025 (Approximate), Expires: 03/18/2026 [facility] Comment on above: Expected: 03/18/2025 (Approximate), Expi res: 03/18/2026 Start: 03-10-2025 End: 03-10-2026 Basic metabolic 2000 panel - Serum or Plasma Basic Metabolic Panel Lab Routine 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 Work Phone: Comment on above: Expected: 03/10/2025 (Approximate), Expi res: 03/10/2026 Start: 03-10-2025 End: 03-10-2026 CBC panel - Blood by Automated count CBC Lab Routine 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 Work Phone: Comment on above: Expected: 03/10/2025 (Approximate), Expi res: 03/10/2026 Start: 03-10-2025 End: 03-10-2026 Natriuretic peptide B [Mass/volume] in Blood B-Type Natriuretic Peptide Lab Routine 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 Work Phone: Comment on above: Expected: 03/10/2025 (Approximate), Expi res: 03/10/2026 Start: 03-10-2025 End: 03-10-2025 Patient encounter procedure 03/10/2025 2:00 PM EDT Office Visit [facility] [address] [place] [address] Odilia Ernandez, 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 [address] [place] [address] [facility] Start: 03-10-2025 End: 03-10-2026 XR Chest 2 Views XR chest 2 views Imaging Routine Shortness of breath Current smoker Expected: 03/10/2025, Expires: 03/10/2026 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 Work Phone: Comment on above: Expected: 02/23/2025 (Approximate), Expi res: 02/23/2026 Start: 02-23-2025 End: 02-23-2026 Complete Pulmonary Function Test (Spirometry/DLCO/Lung Volumes) Complete Pulmonary Function Test (Spirometry/DLCO/Lung Volumes) PFT Routine Current smoker Shortness of breath Expected: 02/23/2025 (Approximate), Expires: 02/23/2026 [facility] Service Area Work Phone: Comment on above: Expected: 02/23/2025 (Approximate), Expi res: 02/23/2026 Start: 02-23-2025 End: 02-23-2025 Patient encounter procedure 02/23/2025 11:30 AM EDT Office Visit [facility] [address] [facility] [address] [place] [address] Odilia Ernandez, 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 [address] [place] [address] [facility] Start: 02-09-2025 Creatinine measurement Creatinine Level [facility] Start: 02-09-2025 Diabetes mellitus screening Diabetes Screening [facility] Start: 02-09-2025 Potassium measurement Potassium Level [facility] Start: 01-29-2025 End: 01-29-2025 [facility] Start: 01-21-2025 End: 01-21-2025 Patient encounter procedure [facility] Comment on above: Arrived Start: 01-08-2025 [facility] Start: 01-07-2025 Sleep disorder assessment [facility] Start: 01-07-2025 Comprehensive metabolic 2000 panel - Serum or Plasma [facility] Start: 01-07-2025 [facility] Start: 01-06-2025 [facility] Start: 01-06-2025 Bacteria identified in Blood by Culture Blood Culture [facility] Start: 01-06-2025 Sleep disorder assessment [facility] Start: 01-06-2025 Referral to drop forge operator [facility] Start: 01-06-2025 Hospital admission [facility] Start: 01-06-2025 [facility] Start: 12-30-2024 End: 12-30-2024 Patient encounter procedure 12/30/2024 2:15 PM EDT Appointment [facility] [address] [place] [phone] [facility] Start: 12-30-2024 End: 12-30-2024 Patient encounter procedure [facility] Start: 12-11-2024 End: 12-11-2025 Alanine aminotransferase [Enzymatic activity/volume] in Serum or Plasma by With P-5'-P Alanine Aminotransferase Lab Routine Mixed hyperlipidemia Expected: 12/11/2024 (Approximate), Expires: 12/11/2025 [facility] Work Phone: Comment on above: Expected: 12/11/2024 (Approximate), Expi res: 12/11/2025 Start: 12-11-2024 End: 12-11-2025 Aspartate aminotransferase [Enzymatic activity/volume] in Serum or Plasma by With P-5'-P Aspartate Aminotransferase Lab Routine Mixed hyperlipidemia Expected: 12/11/2024 (Approximate), Expires: 12/11/2025 [facility] Work Phone: Comment on above: Expected: 12/11/2024 (Approximate), Expi res: 12/11/2025 Start: 12-11-2024 End: 12-11-2025 Basic metabolic 2000 panel - Serum or Plasma Basic Metabolic Panel Lab Routine Primary hypertension Expected: 12/11/2024 (Approximate), Expires: 12/11/2025 [facility] Work Phone: Comment on above: Expected: 12/11/2024 (Approximate), Expi res: 12/11/2025 Start: 12-11-2024 End: 12-11-2025 Lipid 1996 panel - Serum or Plasma Lipid Panel Lab Routine Mixed hyperlipidemia Expected: 12/11/2024 (Approximate), Expires: 12/11/2025 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 Cardiomyopathy, ischemic Primary hypertension Mixed hyperlipidemia Expected: 12/11/2024 (Approximate), Expires: 12/11/2026 [facility] Service Area Work Phone: Comment on above: Expected: 12/11/2024 (Approximate), Expi res: 12/11/2026 Start: 11-26-2024 End: 11-26-2025 CT Chest W contrast IV CT chest w IV contrast Imaging Routine Pulmonary nodules Expected: 11/26/2024, Expires: 11/26/2025 [facility] Work Phone: Comment on above: Expected: 11/26/2024, Expires: Start: 11-26-2024 End: 11-26-2024 Patient encounter procedure [facility] Comment on above: Arrived Start: 11-20-2024 [facility] Start: 11-18-2024 Referral to drop forge operator [facility] Start: 11-18-2024 Hospital admission [facility] Start: 11-18-2024 [facility] Start: 11-18-2024 Bacteria identified in Blood by Culture Blood Culture [facility] Start: 10-05-2024 End: 10-05-2024 Patient encounter procedure 10/05/2024 1:30 PM EST Office Visit [facility] [address] [place] [address] Juve Mcpherson MD [address] [place] [address] [facility] Start: 2024 RSV High Risk: (Elderly (60+) or Population) (1 - Risk 60-74 years 1-dose series) RSV High Risk: (Elderly (60+) or Population) (1 - Risk 60-74 years 1-dose series) [facility] Start: 2024 RSV patients and/or patients aged 60+ years (1 - 1-dose 60+ series) RSV patients and/or patients aged 60+ years (1 - 1-dose 60+ series) [facility] Start: 08-27-2024 Plain X-ray of left shoulder XR shoulder LT min 2V* [facility] Start: 08-27-2024 XR Shoulder - left Views [facility] Start: 08-26-2024 End: 08-26-2025 Lipid 1996 panel - Serum or Plasma Lipid Panel Lab Routine Mixed hyperlipidemia Expected: 08/26/2024 (Approximate), Expires: 08/26/2025 [facility] Service Area Work Phone: Comment on above: Expected: 08/26/2024 (Approximate), Expi res: 08/26/2025 Start: 08-26-2024 End: 08-26-2024 Patient encounter procedure 08/26/2024 11:20 AM EST Office Visit [facility] [address] [place] [phone] Alyssa Quick DO [address] [place] [address] [facility] Start: 07-16-[address] [facility] Start: 07-15-2024 [facility] Start: 07-15-2024 [facility] Start: 07-07-2024 End: 07-07-2024 Patient encounter procedure [facility] Comment on above: Arrived Start: 06-09-2024 End: 06-09-2024 Patient encounter procedure 06/09/2024 2:30 PM EST Office Visit [facility] [address] [place] [phone] Alyssa Quick DO [address] [place] [address] [facility] Start: 05-24-2024 Creatinine measurement Creatinine Level [facility] Start: 05-24-2024 Potassium measurement Potassium Level [facility] Start: 05-15-[address] [facility] Start: 05-15-2024 Pneumococcal vaccination Pneumococcal Vaccine (2 of 2 - PCV) [facility] Start: 05-15-2024 Pneumococcal Vaccine: Pediatrics (0 to 5 Years) and At-Risk Patients (6 to 64 Years) (2 - PCV) Pneumococcal Vaccine: Pediatrics (0 to 5 Years) and At-Risk Patients (6 to 64 Years) (2 - PCV) [facility] Start: 05-15-2024 Pneumococcal Vaccine: Pediatrics (0 to 5 Years) and At-Risk Patients (6 to 64 Years) (2 of 2 - PCV) Pneumococcal Vaccine: Pediatrics (0 to 5 Years) and At-Risk Patients (6 to 64 Years) (2 of 2 - PCV) [facility] Start: 05-15-[address] [facility] Start: 05-13-[address] [facility] Start: 05-13-2024 [facility] Start: 05-11-2024 End: 05-11-2024 Patient encounter procedure 05/11/2024 2:15 PM EDT Office Visit [facility] [address] [place] [phone] Dayton Muñiz DO [address] [place] [address] [facility] Start: 05-11-[address] [facility] Start: 05-04-[address] [facility] Start: 04-23-2024 End: 04-23-2025 Basic metabolic 1998 panel - Serum or Plasma Basic metabolic panel Lab Routine Benign essential hypertension (CMS/HCC) Expected: 04/23/2024 (Approximate), Expires: 04/23/2025 [facility] Comment on above: Expected: 04/23/2024 (Approximate), Expi res: 04/23/2025 Start: 04-23-2024 End: 04-23-2025 CBC W Auto Differential panel - Blood CBC and differential Lab Routine Encounter for long-term current use of medication Expected: 04/23/2024 (Approximate), Expires: 04/23/2025 [facility] Comment on above: Expected: 04/23/2024 (Approximate), Expi res: 04/23/2025 Start: 04-23-2024 End: 04-23-2025 Hemoglobin A1c/Hemoglobin.total in Blood Hemoglobin A1c Lab Routine Prediabetes Expected: 04/23/2024 (Approximate), Expires: 04/23/2025 [facility] Work Phone: Comment on above: Expected: 04/23/2024 (Approximate), Expi res: 04/23/2025 Start: 04-23-2024 End: 04-23-2025 Hepatic function 2000 panel - Serum or Plasma Hepatic function panel Lab Routine Encounter for long-term current use of medication Expected: 04/23/2024 (Approximate), Expires: 04/23/2025 [facility] Comment on above: Expected: 04/23/2024 (Approximate), Expi res: 04/23/2025 Start: 04-23-2024 End: 04-23-2025 Lipid 1996 panel - Serum or Plasma Lipid panel Lab Routine Dyslipidemia (CMS/HCC) Expected: 04/23/2024 (Approximate), Expires: 04/23/2025 [facility] Comment on above: Expected: 04/23/2024 (Approximate), Expi res: 04/23/2025 Start: 04-23-2024 End: 04-23-2025 Prostate specific Ag [Mass/volume] in Serum or Plasma PSA Lab Routine Screening PSA (prostate specific antigen) Expected: 04/23/2024 (Approximate), Expires: 04/23/2025 [facility] Comment on above: Expected: 04/23/2024 (Approximate), Expi res: 04/23/2025 Start: 04-23-2024 End: 04-23-2025 Thyrotropin [Units/volume] in Serum or Plasma TSH Lab Routine Obesity (BMI 30-39.9) Expected: 04/23/2024 (Approximate), Expires: 04/23/2025 [facility] Comment on above: Expected: 04/23/2024 (Approximate), Expi res: 04/23/2025 Start: 04-23-2024 End: 04-23-2024 Patient encounter procedure 04/23/2024 1:00 PM EDT [facility] [address] [place] [address] Juve Mcpherson MD [address] [place] [address] Arrived [facility] Comment on above: Arrived Start: 04-05-2024 Covid-19 Vaccine ( season) Covid-19 Vaccine ( season) [facility] Start: 04-05-2024 COVID-19 Vaccine ( season) COVID-19 Vaccine ( season) [facility] Start: 04-05-2024 Influenza vaccination Influenza Vaccine (#1) [facility] Start: 03-11-2024 End: 03-11-2024 Patient encounter procedure [facility] Start: 03-04-2024 End: 03-04-2024 Patient encounter procedure 03/04/2024 11:30 AM EDT Office Visit [facility] [address] [facility] [address] [place] [address] Saul Gonzales MD [address] [place] [address] [facility] Start: 02-28-2024 End: 02-28-2024 Admission to same day surgery center 02/28/2024 7:20 AM EDT - 02/28/2024 10:40 AM ED[place] [address] [place] [address] Saul Gonzales MD [address] [place] [address] Bilateral endoscopic sinus surgery with image guidance, septoplasty. [95925 (CPT )] [facility] Comment on above: Bilateral endoscopic sinus surgery with image guidance, septoplasty. [[id number] (CPT )] Start: 02-28-2024 End: 02-28-2024 Nasal/sinus ndsc w/total ethoidectomy Nasal Endoscopy with Excision Tissue Ethmoid Sinus Chronic maxillary sinusitis Deviated nasal septum 02/28/2024 7:20 AM EDT [facility] [place] Start: 02-28-2024 End: 02-28-2024 Nsl/sinus ndsc max antrost w/rmvl tiss max sinus Nasal Endoscopy with Excision Tissue Maxillary Sinus Chronic maxillary sinusitis Deviated nasal septum 02/28/2024 7:20 AM EDT [facility] [place] [place] Start: 02-28-2024 End: 02-28-2024 Septoplasty/submucous resecj w/wo cartilage grf Repair Septum Nasal Cavity Chronic maxillary sinusitis Deviated nasal septum 02/28/2024 7:20 AM EDT [facility] [place] Start: 02-28-2024 End: 02-28-2024 [facility] cptr asstd px extradural cranial Navigation-Assisted Surgery Chronic maxillary sinusitis Deviated nasal septum 02/28/2024 7:20 AM EDT [facility] [place] Start: 02-28-2024 Subsequent hospital visit by physician [facility] [place] Start: 01-15-2024 End: 01-14-2025 Request for Pre-Admission Testing Visit Request for Pre-Admission Testing Visit Procedures Routine Chronic maxillary sinusitis Expected: 01/15/2024 (Approximate), Expires: 01/14/2025 [facility] Area Work Phone: Comment on above: Expected: 01/15/2024 (Approximate), Expi res: 01/14/2025 Start: 01-14-2024 Plain X-ray of left shoulder XR shoulder LT min 2V* [facility] Start: 01-14-2024 XR Shoulder - left Views [facility] Start: 12-03-2023 End: 12-03-2023 Patient encounter procedure 12/03/2023 2:00 PM EDT Office Visit [facility] [address] [place] [address] Alyssa Quick DO [address] [place] [address] [facility] Start: 11-13-2023 End: 11-12-2024 Basic metabolic 2000 panel - Serum or Plasma Basic Metabolic Panel Lab Routine Hypervolemia, unspecified hypervolemia type Congestive heart failure, NYHA class 2 and ACC/AHA stage C (CMS/HCC) Expected: 11/13/2023 (Approximate), Expires: 11/12/2024 [facility] Work Phone: Comment on above: Expected: 11/13/2023 (Approximate), Expi res: 11/12/2024 Start: 11-13-2023 End: 11-12-2024 Creatine kinase [Enzymatic activity/volume] in Serum or Plasma Creatine Kinase Lab Routine Congestive heart failure, NYHA class 2 and ACC/AHA stage C (CMS/HCC) Mixed hyperlipidemia Expected: 11/13/2023 (Approximate), Expires: 11/12/2024 [facility] Work Phone: Comment on above: Expected: 11/13/2023 (Approximate), Expi res: 11/12/2024 Start: 11-13-2023 End: 11-13-2023 Patient encounter procedure 11/13/2023 10:30 AM EDT Office Visit [address] [place] [address] Odilia Ernandez, 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 [address] [place] [address] [facility] Start: 11-05-2023 Duplex scan veins of upper limb US venous duplex UE LT [facility] Start: 11-05-2023 US Upper extremity vein - left [facility] Start: 10-22-2023 End: 10-22-2023 Patient encounter procedure 10/22/2023 12:30 PM EDT Office Visit [address] [place] [address] Odilia Ernandez, 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 [address] [facility] [address] [place] [address] [facility] Start: 10-15-2023 End: 10-14-2024 Basic metabolic 2000 panel - Serum or Plasma Basic Metabolic Panel Lab Routine Hypervolemia, unspecified hypervolemia type Expected: 10/15/2023 (Approximate), Expires: 10/14/2024 [facility] Service Area Work Phone: Comment on above: Expected: 10/15/2023 (Approximate), Expi res: 10/14/2024 Start: 10-15-2023 End: 10-14-2024 Natriuretic peptide B [Mass/volume] in Blood B-Type Natriuretic Peptide Lab Routine Hypervolemia, unspecified hypervolemia type Expected: 10/15/2023 (Approximate), Expires: 10/14/2024 [facility] Work Phone: Comment on above: Expected: 10/15/2023 (Approximate), Expi res: 10/14/2024 Start: 10-15-2023 End: 10-14-2025 US.doppler Upper extremity vein - left Vascular US upper extremity venous duplex left Vascular Ultrasound Routine Edema of left upper arm Expected: 10/15/2023 (Approximate), Expires: 10/14/2025 [facility] Work Phone: Comment on above: Expected: 10/15/2023 (Approximate), Expi res: 10/14/2025 Start: 09-16-2023 End: 09-16-2023 Patient encounter procedure 09/16/2023 1:30 PM EST Office Visit [facility] [address] [place] [address] Odilia Ernandez, 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 [address] [place] [address] [facility] Start: 08-14-2023 End: 08-14-2023 Patient encounter procedure 08/14/2023 1:00 PM EST Office Visit [facility] [address] [place] [address] Odilia Ernandez, 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 [address] [place] [address] [facility] Start: 07-16-2023 End: 07-16-2023 Patient encounter procedure 07/16/2023 2:30 PM EST Appointment [facility] [address] [place] [address] [facility] Start: 07-09-2023 End: 07-02-2024 Basic metabolic 2000 panel - Serum or Plasma Basic Metabolic Panel Lab Routine 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 Work Phone: Comment on above: Expected: 07/09/2023 (Approximate), Expi res: 07/02/2024 Start: 07-09-2023 End: 07-02-2024 Natriuretic peptide B [Mass/volume] in Blood B-Type Natriuretic Peptide Lab Routine 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 Work Phone: Comment on above: Expected: 07/09/2023 (Approximate), Expi res: 07/02/2024 Start: 07-02-2023 End: 07-02-2024 Pulmonary function test Pulmonary function test PFT Routine Shortness of breath Former smoker Expected: 07/02/2023 (Approximate), Expires: 07/02/2024 [facility] Service Area Work Phone: Comment on above: Expected: 07/02/2023 (Approximate), Expi res: 07/02/2024 Start: 07-02-2023 End: 07-02-2023 Patient encounter procedure 07/02/2023 1:30 PM EST Office Visit [facility] [address] [facility] [address] [place] [address] Odilia Ernandez, 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 [address] [facility] [address] [place] [address] [facility] Start: 06-21-2023 End: 06-21-2023 ambulatory [facility] Start: 06-21-2023 End: 06-21-2023 Patient encounter procedure 06/21/2023 9:45 AM EST Office Visit [facility] [address] [facility] [address] [place] [address] [place]toniel Trevino [place] PhD [address] Department [place] [address] [facility] Start: 06-18-2023 End: 06-18-2024 Basic metabolic 2000 panel - Serum or Plasma Basic Metabolic Panel Lab Routine ST elevation myocardial infarction (STEMI), unspecified artery (CMS/HCC) 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, unspecified whether little shell tribe or transplanted heart (CMS/HCC) Hypertension, unspecified type Expected: 06/18/2023 (Approximate), Expires: 06/18/2024 [facility] Work Phone: Comment on above: Expected: 06/18/2023 (Approximate), Expi res: 06/18/2024 Start: 06-18-2023 End: 06-18-2024 Natriuretic peptide B [Mass/volume] in Blood B-Type Natriuretic Peptide Lab Routine ST elevation myocardial infarction (STEMI), unspecified artery (CMS/HCC) 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, unspecified whether little shell tribe or transplanted heart (CMS/HCC) Hypertension, unspecified type Expected: 06/18/2023 (Approximate), Expires: 06/18/2024 [facility] Work Phone: Comment on above: Expected: 06/18/2023 (Approximate), Expi res: 06/18/2024 Start: 06-18-2023 End: 06-18-2025 Heart Transthoracic Transthoracic Echo (TTE) Complete Echocardiography Routine S/P CABG x 2 HFrEF (heart failure with reduced ejection fraction) (CMS/HCC) Expected: 06/18/2023 (Approximate), Expires: 06/18/2025 [facility] Service Area Work Phone: Comment on above: Expected: 06/18/2023 (Approximate), Expi res: 06/18/2025 Start: 05-24-2023 End: 05-24-2023 ambulatory [facility] Start: 05-23-2023 End: 05-23-2023 ambulatory [facility] Start: 05-22-2023 End: 05-15-2024 Basic metabolic 2000 panel - Serum or Plasma [facility] Work Phone: Start: 05-22-2023 End: 05-15-2024 CBC panel - Blood by Automated count [facility] Work Phone: Start: 05-22-2023 End: 05-15-2024 Magnesium [Mass/volume] in Serum or Plasma [facility] Work Phone: Start: 05-03-2023 [facility] Start: 05-03-2023 Assistance with Cardiac Output using Balloon Pump, Continuous Assistance with Cardiac Output using Balloon Pump, Continuous [facility] Start: 05-03-2023 Dilation of Coronary Artery, Two Arteries, Percutaneous Approach Dilation of Coronary Artery, Two Arteries, Percutaneous Approach [facility] Start: 05-03-2023 Fluoroscopy of Left Heart using Low Osmolar Contrast Fluoroscopy of Left Heart using Low Osmolar Contrast [facility] Start: 05-03-2023 Fluoroscopy of Multiple Coronary Arteries using Low Osmolar Contrast Fluoroscopy of Multiple Coronary Arteries using Low Osmolar Contrast [facility] Start: 05-03-2023 Measurement of Cardiac Sampling and Pressure, Left Heart, Percutaneous Approach Measurement of Cardiac Sampling and Pressure, Left Heart, Percutaneous Approach [facility] Start: 05-03-2023 Consultation [facility] Start: 05-03-2023 Hospital admission [facility] Start: 05-03-2023 Referral to cardiac rehabilitation program [facility] Start: 05-03-2023 [facility] Start: 04-05-2023 COVID-19 Vaccine () COVID-19 Vaccine () [facility] Start: 04-05-2023 Influenza vaccination [facility] Start: 04-01-2023 End: 06-01-2023 25-hydroxyvitamin D3 [Mass/volume] in Serum or Plasma [facility] Work Phone: Comment on above: Expected: 04/01/2023 (Approximate), Expi res: 06/01/2023 Start: 04-01-2023 End: 06-01-2023 Cobalamin (Vitamin B12) [Mass/volume] in Serum or Plasma [facility] Work Phone: Comment on above: Expected: 04/01/2023 (Approximate), Expi res: 06/01/2023 Start: 12-25-2022 ambulatory Ambulatory Facility: Start: 11-16-2022 End: 08-18-2023 25-hydroxyvitamin D3 [Mass/volume] in Serum or Plasma VITAMIN D 25 HYDROXY Lab Routine Vitamin D deficiency Expected: 11/16/2022 (Approximate), Expires: 08/18/2023 [facility] Work Phone: Comment on above: Expected: 11/16/2022 (Approximate), Expi res: 08/18/2023 Start: 11-16-2022 End: 08-18-2023 Cobalamin (Vitamin B12) [Mass/volume] in Serum or Plasma VITAMIN B12 BLOOD Lab Routine Vitamin B12 deficiency Expected: 11/16/2022 (Approximate), Expires: 08/18/2023 [facility] Work Phone: Comment on above: Expected: 11/16/2022 (Approximate), Expi res: 08/18/2023 Start: 10-03-2022 [facility] Start: 10-03-2022 [facility] Start: 08-17-2022 End: 08-17-2023 25-hydroxyvitamin D3 [Mass/volume] in Serum or Plasma [facility] Work Phone: Comment on above: Expected: 08/17/2022 (Approximate), Expi res: 08/17/2023 Start: 08-17-2022 End: 08-17-2023 NICK BY IFA WITH REFLEX [facility] Work Phone: Comment on above: Expected: 08/17/2022 (Approximate), Expi res: 08/17/2023 Start: 08-17-2022 End: 08-17-2023 BLOOD TB SCREEN [facility] Work Phone: Comment on above: Expected: 08/17/2022 (Approximate), Expi res: 08/17/2023 Start: 08-17-2022 End: 08-17-2023 C reactive protein [Mass/volume] in Serum or Plasma [facility] Work Phone: Comment on above: Expected: 08/17/2022 (Approximate), Expi res: 08/17/2023 Start: 08-17-2022 End: 08-17-2023 Chronic hepatitis differentiation between hepatitis B and C virus panel - Serum or Plasma [facility] Work Phone: Comment on above: Expected: 08/17/2022 (Approximate), Expi res: 08/17/2023 Start: 08-17-2022 End: 08-17-2023 Cobalamin (Vitamin B12) [Mass/volume] in Serum or Plasma [facility] Work Phone: Comment on above: Expected: 08/17/2022 (Approximate), Expi res: 08/17/2023 Start: 08-17-2022 End: 08-17-2023 Comprehensive metabolic 2000 panel - Serum or Plasma [facility] Work Phone: Comment on above: Expected: 08/17/2022 (Approximate), Expi res: 08/17/2023 Start: 08-17-2022 End: 08-17-2023 Cyclic citrullinated peptide IgG Ab [Units/volume] in Serum or Plasma [facility] Work Phone: Comment on above: Expected: 08/17/2022 (Approximate), Expi res: 08/17/2023 Start: 08-17-2022 End: 08-17-2023 Erythrocyte sedimentation rate [facility] Work Phone: Comment on above: Expected: 08/17/2022 (Approximate), Expi res: 08/17/2023 Start: 08-17-2022 End: 08-17-2023 Rheumatoid factor [Units/volume] in Serum or Plasma [facility] Work Phone: Comment on above: Expected: 08/17/2022 (Approximate), Expi res: 08/17/2023 Start: 08-17-2022 End: 08-17-2023 Urate [Mass/volume] in Serum or Plasma [facility] Work Phone: Comment on above: Expected: 08/17/2022 (Approximate), Expi res: 08/17/2023 Start: 08-05-2022 DEPRESSION ASSESSMENT DEPRESSION ASSESSMENT [facility] Start: 04-05-2022 Influenza vaccination INFLUENZA (#1) [facility] Start: 2019 PROSTATE CANCER SCREENING DISCUSSION PROSTATE CANCER SCREENING DISCUSSION [facility] Start: 2019 Prostate specific antigen measurement Prostate Cancer Screening Discussion [facility] Start: 2014 Prostate specific antigen measurement PSA Prostate Cancer Screening [facility] Start: 2014 SHINGRIX VACCINE (1 of 2) SHINGRIX VACCINE (1 of 2) [facility] Start: 2014 Zoster Vaccines (1 of 2) Zoster Vaccines (1 of 2) [facility] Start: 2014 [facility] Start: 2009 COLOGUARD (FIT-DNA) COLOGUARD (FIT-DNA) [facility] Start: 2009 Colonoscopy COLONOSCOPY [facility] Start: 2009 COLORECTAL CANCER SCREENING COLORECTAL CANCER SCREENING [facility] Start: [address] COLONOGRAPHY [facility] Start: 2009 DIABETES SCREEN DIABETES SCREEN [facility] Start: 2009 FECAL OCCULT BLOOD FECAL OCCULT BLOOD [facility] Start: 2009 Prostate specific antigen measurement Prostate Cancer Screening Discussion [facility] Start: 2009 Screening for malignant neoplasm of colon [facility] Start: 2009 SIGMOIDOSCOPY SIGMOIDOSCOPY [facility] Start: 1999 Lipid panel Lipid Screening [facility] Start: 1999 LIPID SCREEN LIPID SCREEN [facility] Start: 1986 DTaP/Tdap/Td Vaccines (1 - Tdap) DTaP/Tdap/Td Vaccines (1 - Tdap) [facility] Start: 1986 [facility] Start: 1983 Hepatitis B Vaccines (1 of 3 - 19+ 3-dose series) Hepatitis B Vaccines (1 of 3 - 19+ 3-dose series) [facility] Start: 1983 Pneumococcal Vaccine: 50+ (1 of 2 - PCV) Pneumococcal Vaccine: 50+ (1 of 2 - PCV) [facility] Start: 1983 Urine microalbumin profile [facility] Start: 1982 Anxiety Screening Anxiety Screening [facility] Start: 1982 Depression Screening Depression Screening [facility] Start: 1982 HEPATITIS C SCREENING HEPATITIS C SCREENING [facility] Start: [address] [facility] Start: 1982 HIV SCREENING HIV SCREENING [facility] Start: 1982 HIV screening HIV Screening [facility] Start: 1970 PNEUMOCOCCAL (1 - PCV) PNEUMOCOCCAL (1 - PCV) [facility] Start: 1970 Pneumococcal vaccination Pneumococcal Vaccine (1 of 2 - PCV) [facility] Start: 1970 [facility] Start: 1965 MMR Vaccines (1 of 1 - Standard series) MMR Vaccines (1 of 1 - Standard series) [facility] Start: 1965 [facility] Start: 03-24-1965 COVID-19 VACCINE (#1) COVID-19 VACCINE (#1) [facility] Start: 03-24-1965 [facility] Start: 1964 HEPATITIS B (1 of 3 - 3-dose series) HEPATITIS B (1 of 3 - 3-dose series) [facility] Start: 1964 Hepatitis B Vaccines (1 of 3 - 3-dose series) Hepatitis B Vaccines (1 of 3 - 3-dose series) [facility] Start: [address] [facility] Start: 1964 Screening for malignant neoplasm of colon [facility] Start: 1964 Yearly Adult Physical Yearly Adult Physical [facility] Start: 1964 [facility] Airway Clearance Techniques Device/modality: vPEP [facility] Work Phone: CBC panel - Blood by Automated count [facility] Work Phone: End: 05-07-2023 Determination of physical activity tolerance [facility] Work Phone: End: 02-14-2024 ECG 12 Lead [facility] Work Phone: Comment on above: Once for 1 Occurrences starting 02/14/20 24 until 02/14/2024 End: 05-11-2023 Electrocardiogram, 12-lead [facility] Work Phone: End: 05-11-2023 Encourage deep breathing and coughing [facility] Work Phone: End: 05-05-[address] [facility] Work Phone: Glucose [Mass/volume ] in Serum or Plasma [facility] Work Phone: End: 05-11-[address] [facility] Work Phone: Magnesium [Mass/volu me] in Serum or Plasma [facility] Work Phone: Nasal/sinus ndsc w/t otal ethoidectomy Nasal Endoscopy with Excision Tissue Ethmoid Sinus Chronic maxillary sinusitis Deviated nasal septum [facility] [place] End: 05-04-2023 Natriuretic peptide B [Mass/volume] in Blood [facility] Work Phone: End: 01-25-2025 NM Heart Perfusion W stress and W radionuclide IV [facility] Work Phone: Comment on above: Once for 1 Occurrences starting 01/26/20 until 01/25/2025 Nsl/sinus ndsc max antrost w/rmvl tiss max sinus Nasal Endoscopy with Excision Tissue Maxillary Sinus Chronic maxillary sinusitis Deviated nasal septum [facility] [place] [place] Patient Education [facility] Work Phone: Patient referral [facility] Work Phone: Pulse oximetry, spot [facility] Work Phone: Renal function 2000 panel - Serum or Plasma [facility] Work Phone: Septoplasty/submucou s resecj w/wo cartilage grf Repair Septum Nasal Cavity Chronic maxillary sinusitis Deviated nasal septum [facility] [place] [facility] cptr asstd p x extradural cranial Navigation-Assisted Surgery Chronic maxillary sinusitis Deviated nasal septum [facility] [place] [place] MISCELLANEOUS CULT./SM.BACT. MISCELLANEOUS CULT./SM.BACT. Lab Routine 05/27/2024 4:18 PM EDT [facility] MISCELLANEOUS CULT./SM.BACT. MISCELLANEOUS CULT./SM.BACT. Lab Routine 08/12/2024 3:39 PM EST [facility] End: 05-05-2023 Urinalysis complete W Reflex Culture panel - Urine [facility] Work Phone: End: 07-16-2023 US Heart Transthoracic [facility] Work Phone: Comment on above: Once for 1 Occurrences starting 07/16/20 until 07/16/2023 End: 06-21-2023 XR Chest 2 Views [facility] Work Phone: Comment on above: Once for 1 Occurrences starting 06/21/20 23 until 06/21/2023 [facility] Immunizations Immunization Date Immunization Notes Care Provider Navjot ashraf 05-15-2023 influenza, injectabl e, quadrivalent, preservative free Susan Braun MD Work Phone: [facility] 05-15-2023 pneumococcal polysaccharide vaccine, 23 valent Susan Braun MD Work Phone: [facility] Work Phone: 05-15-2023 influenza virus vacc ine, unspecified formulation [facility] Work Phone: 08-07-2022 Influenza, injectabl e, [place] Canine Kidney, preservative free, quadrivalent Alyssa Quick DO Work Phone: [facility] Work Phone: 08-07-2022 influenza virus vacc ine, unspecified formulation Mohini Hook MD Work Phone: [facility] 06-29-2020 influenza, seasonal, injectable Alyssa Quick DO Work Phone: [facility] Work Phone: Payers Date Payer Category Payer Self-pay [id number] 2021 Medicaid [id number] 2021 Medicaid (Managed Care) 1.2. [id number] 2021 Private Health Insurance [facility] [id number] 2021 Unknown 1964 Unknown [id number] 2.16.840.1.253740.3.579.2. 1068 1964 Unknown [id number] 2.16.840.1.814219.3.579.2. 593 1964 Unknown [id number] 2.16.840.1.068094.3.579.2. 593 1964 Unknown [id number] 2.16.840.1.934399.3.579.2. 593 1964 Unknown [id number] 2.16.840.1.266057.3.579.2. 593 1964 Unknown [id number] 2.16.840.1.766062.3.579.2. 593 1964 Unknown [id number] 2.16.840.1.681429.3.579.2. 593 1964 Unknown [id number] 2.16.840.1.320918.3.579.2. 727 1964 Unknown [id number] 2.16.840.1.715533.3.579.2. 356 1964 Unknown [id number] 2.16.840.1.855712.3.579.2. 356 1964 Unknown [id number] 2.16.840.1.207685.3.579.2. 356 1964 Unknown [id number] 2.16.840.1.148989.3.579.2. 356 1964 Unknown [id number] 2.16.840.1.648737.3.579.2. 732 1964 Unknown [id number] 2.16.840.1.452878.3.579.2. 732 1964 Unknown [id number] 2.16.840.1.997366.3.579.2. 1246 1964 Unknown [id number] 2.16.840.1.936555.3.579.2. 1246 1964 Unknown [id number] 2.16.840.1.986568.3.579.2. 1246 1964 Unknown [id number] 2.16.840.1.215501.3.579.2. 1246 1964 Unknown [id number] 2.16.840.1.848296.3.579.2. 1246 1964 Unknown [id number] 2.16.840.1.296865.3.579.2. 1245 1964 Unknown [id number] 2.16840.1.271487.3.579.2. 1245 1964 Unknown [id number] 2.16.840.1.566079.3.579.2. 1245 1964 Unknown [id number] 2.16840.1.503452.3.579.2. 1259 1964 Unknown [id number] 2.16840.1.267666.3.579.2. 1259 1964 Unknown [id number] 2.16840.1.345312.3.579.2. 1259 1964 Unknown [id number] 2.16.840.1.045851.3.579.2. 1259 1964 Unknown [id number] 2.16.840.1.385955.3.579.2. 1259 1964 Unknown [id number]. 1259 1965 Unknown [id number] 2.16.840.1.342187.3.579.2. 1244 1965 Unknown [id number] 2.16.840.1.441451.3.579.2. 1244 1965 Unknown [id number] .0.1.305579.3.579.2. 124 1964 Unknown [id number] 2.840.1.903812.3.579.2. 1244 1964 Unknown [id number] .0.1.200639.3.579.2. 124 1964 Unknown [id number] .0.1.244101.3.579.2. 1243 1965 Unknown [id number] .0.1.573653.3.579.2. 1243 1965 Unknown [id number] .0.1.168277.3.579.2. 1244 1960 Medicaid [id number] 1960 Unknown [id number] Unknown [facility] Insurance [id number] Unknown [id number] Unknown [id number] .840.1.085969.3.579.2. 531 Unknown [id number] 840.1.268174.3.579.2. 531 Unknown [id number] 840.1.258808.3.579.2. 531 Unknown [id number] 2.840.1.499014.3.579.2. 531 Unknown [id number] 2.840.1.690520.3.579.2. 531 Unknown [id number] 2.840.1.329197.3.579.2. 531 Unknown [id number] .840.1.290067.3.579.2. 531 Unknown [id number] 2.16.840.1.258666.3.579.2. 531 Unknown [id number] 2.16.840.1.412268.3.579.2. 531 Unknown [id number] 2.16.840.1.691078.3.579.2. 531 Social History Date Type Detail Facility Start: 08-17-2022 End: 05-12-2023 Sex Assigned At [facility] Start: 1965 Sex Assigned At Male [facility] Start: 08-17-2022 End: 04-13-2025 Tobacco smoking status IAIS Smokes tobacco daily [facility] Start: 08-05-2019 End: 05-03-2023 History of tobacco use Cigarette Smoker [facility] Start: 08-17-2022 End: 05-12-2023 Cigarettes smoked current (pack per day) - Reported 1 [facility] Start: 08-17-2022 End: 04-21-2025 Alcohol intake Current drinker of alcohol (finding) [facility] Start: 09-20-2022 End: 01-07-2025 Tobacco smoking status NHIS Smoker (finding) [facility] Tobacco smoking status No Smoking Status Entered [facility] Start: 08-17-2022 Gender identity Identifies as male gender (finding) [facility] Start: 08-17-2022 Sexual orientation Heterosexual (fin ding) [facility] Start: 07-06-2012 End: 06-29-2022 Adult Depression Screening Assessment 6 [facility] Start: 05-13-2023 End: 12-11-2024 Tobacco use and exposure Smokeless tobacco non-user [facility] Work Phone: Has the [employer], gas, oil, or water [email or web address] threatened to shut off services in your home in past 12Mo No [facility] How often to you hav e a drink containing alcohol? Never [facility] Do you feel stress - tense, restless, nervous, or anxious, or unable to sleep at night because your mind is troubled all the time - these days [OSQ] To some extent [facility] Work Phone: (I/We) worried whether (my/our) food would run out before (I/we) got money to buy more. Never true [facility] Work Phone: Start: 1965 Sex Assigned At [facility] Work Phone: Start: 05-04-2023 End: 12-11-2024 Exposure to SARS-CoV-2 (event) Not sure [facility] Work Phone: Start: 07-02-2023 End: 07-31-2023 Tobacco smoking status NHIS Ex-smoker [facility] Start: 07-02-2023 End: 11-13-2023 Alcohol intake Lifetime non-drinker (finding) [facility] Work Phone: Start: 08-05-2019 End: 12-11-2024 Tobacco smoking status [facility] Occasional tobacco smoker [facility] Start: 12-03-2023 Alcohol Comment very rare [facility] Work Phone: Are you now , , , , never or living with a partner? [facility] How hard is it for you to pay for the very basics like food, housing, medical care, and heating Very hard [facility] (I/We) worried whether (my/our) food would run out before (I/we) got money to buy more. Often true [facility] The food that (I/we) bought just didn't last, and (I/we) didn't have money to get more. Sometimes true [facility] Start: 05-27-2024 End: 08-26-2024 Alcoholic beverage intake Ex-drinker (finding) [facility] Work Phone: Start: 08-27-2024 End: 01-08-2025 Sex Male (finding) [facility] Start: 11-20-2024 End: 01-08-2025 SDOH Follow up SDOH Follow up [facility] Work Phone: NEGATED: Highlighted rowStart: NINF History of tobacco use Passive smoker [facility] Work Phone: Medical Equipment Procedure Code Equipment Code Equipment Origin al Text Equipment Identifier Dates Arthroplasty, shoulder, total Total reverse shoulder prosthesis ()[id number] 29 FDA Start: 07-15-2024 Arthroplasty, shoulder, total Total reverse shoulder prosthesis ()[id number] [id number])[id number] 82 FDA Start: 07-15-2024 Arthroplasty, shoulder, total Total reverse shoulder prosthesis ()[id number] [id number])[id number] 23 FDA Start: 07-15-2024 Arthroplasty, shoulder, total Total reverse shoulder prosthesis ()[id number] [id number] FDA Start: 07-15-2024 Arthroplasty, shoulder, total Total reverse shoulder prosthesis ()[id number] [id number] 11 FDA Start: 07-15-2024 Arthroplasty, shoulder, total Total reverse shoulder prosthesis ()[id number] [id number] 65 FDA Start: 07-15-2024 Arthroplasty, shoulder, total Total reverse shoulder prosthesis ()[id number] [id number] 67 FDA Start: 07-15-2024 Arthroplasty, shoulder, total Total reverse shoulder prosthesis [id number] [id number] FDA Start: 07-15-2024 Arthroplasty, shoulder, total Total reverse shoulder prosthesis ()[id number]( [id number])[id number] 22 FDA Start: 07-15-2024 Goals Date Patient Goal Desired Activity /State Personal health goal Functional Status Date Assessment Result Facility 01-08-2025 Functional status Patient at Baseline [facility] Work Phone: 01-06-2025 Functional status Patient at Baseline [facility] Work Phone: 11-20-2024 Functional status Patient at Baseline [facility] Work Phone: 05-03-2023 Functional status Patient at Baseline [facility] Work Phone: Mental Status Date Assessment Result Facility 01-08-2025 Cognitive function Cognitive Sta tus Patient at Baseline [facility] Work Phone: 01-06-2025 Cognitive function Cognitive Sta tus Patient at Baseline [facility] Work Phone: 11-20-2024 Cognitive function Cognitive Sta tus Patient at Baseline [facility] Work Phone: 05-03-2023 Cognitive function Cognitive Sta tus Patient at Baseline [facility] Work Phone: Clinical Notes 07-11-2021 to 04-22-2025 Assessment & Plan Note - BEATRICE Johnson - 04/22/2025 10:57 AM EDTAssessment & Plan Note - BEATRICE Johnson - 04/22/2025 10:57 AM EDTPatient InstructionsPatient Instructions Note Date & Type Note Facility 04-22-2025 Evaluation + Plan note Associated Problem(s): Shortness of breath Remains a [...] initiation of Symbicort and his rescue inhaler. [facility] Work Phone: 04-22-2025 Miscellaneous Notes Associated Problem(s): Shortness of breath Remains a [...] initiation of Symbicort and his rescue inhaler. Associated Problem(s): BMI 32.0-32.9,adult Reviewed the merits of healthy lifestyle choices on overall cardiovascular health. Associated Problem(s): Hyperlipemia High intensity statin January 2025 HDL 69, LDL 63 Associated Problem(s): Cardiomyopathy, ischemic ICM HF improved [...] November 2024: ADHF admit Narrow QRS 82 Associated Problem(s): HTN (hypertension) Optimal in office Associated Problem(s): Atherosclerotic heart disease of [place] coronary artery with unspecified angina pectoris May 03, 2023 Anterior STEMI Two-vessel PCI of the diagonal branch & the ramus branch with subsequent intra-aortic balloon pump placement. He had chronic total occlusion of the mid LAD he was then transferred to [facility] : May 07, 2023 CABG ALVAREZ-LAD SVG-OM November 2024 TTE with moderate lateral and anterolateral hypokinesis. Recent admit adhf unclear etiology - will proceed with non invasive ischemic work up. January 2025 MPI moderate inferior ischemia. January 30, 2020 5 repeat cardiac cath ALVAREZ-LAD patent SVG-OM patent Mid RCA 50 to 70% Distal RCA 50-70% PDA occluded [id number] collaterals Mid circumflex 95-99 (patent SVG-OM) LVEF 40% Associated Problem(s): Current smoker 'working hard on quitting' Maybe 5 per day Continued every day tobacco use. Have reviewed the negative cardiovascular impact of nicotine. Continues to decline pharmacological assistance. documented in this encounter [facility] Work Phone: 04-22-2025 Evaluation + Plan note Associated Problem(s): BMI 32.0-32.9,adult Reviewed the merits of healthy lifestyle choices on overall cardiovascular health. [facility] Work Phone: 04-22-2025 Evaluation + Plan note Associated Problem(s): Hyperlipemia High intensity statin January 2025 HDL 69, LDL 63 [facility] Work Phone: 04-22-2025 Evaluation + Plan note Associated Problem(s): Cardiomyopathy, ischemic ICM HF improved [...] November 2024: ADHF admit Narrow QRS 82 [facility] Work Phone: 04-22-2025 Evaluation + Plan note Associated Problem(s): HTN (hypertension) Optimal in office [facility] Work Phone: 04-22-2025 Evaluation + Plan note Associated Problem(s): Atherosclerotic heart disease of [place] coronary artery with unspecified angina pectoris May 03, 2023 Anterior STEMI Two-vessel PCI of the diagonal branch & the ramus branch with subsequent intra-aortic balloon pump placement. He had chronic total occlusion of the mid LAD he was then transferred to [facility] : May 07, 2023 CABG ALVAREZ-LAD SVG-OM November 2024 TTE with moderate lateral and anterolateral hypokinesis. Recent admit adhf unclear etiology - will proceed with non invasive ischemic work up. January 2025 MPI moderate inferior ischemia. January 30, 2020 5 repeat cardiac cath ALVAREZ-LAD patent SVG-OM patent Mid RCA 50 to 70% Distal RCA 50-70% PDA occluded ifiu-ih-abvyk collaterals Mid circumflex 95-99 (patent SVG-OM) LVEF 40% [facility] Work Phone: 04-21-2025 Evaluation + Plan note Associated Problem(s): Current smoker 'working hard on quitting' Maybe 5 per day Continued every day tobacco use. Have reviewed the negative cardiovascular impact of nicotine. Continues to decline pharmacological assistance. [facility] Work Phone: 04-21-2025 History of Presen t illness Narrative Chief Complaint I think I am doing better Reason for Visit 1 month follow-up Patient presents to the office today for outpatient follow-up for shortness of breath and test results. Last evaluated in clinic by myself March 2025. At that time I had ordered lab work, and he did not obtain. He was to get a chest x-ray [...] rescue inhaler there has been benefit in his shortness of breath. He has had no additional [...] Wt 95.3 kg (210 lb) BMI 32.89 kg/m Smoking Status Some Days BSA 2.12 m Physical Exam Vitals and nursing note reviewed. [...] ONCE DAILY -DO NOT CRUSH OR CHEW multivitamin with minerals tablet 1 [...] decline pharmacological assistance. Atherosclerotic heart disease of [place] coronary artery with unspecified angina pectoris ([facility]) May 03, 2023 Anterior STEMI Two-vessel PCI of the diagonal branch & the ramus branch with subsequent intra-aortic balloon pump placement. He had chronic total occlusion of the mid LAD he was then transferred to [facility] : May 07, 2023 CABG ALVAREZ-LAD SVG-OM November 2024 TTE with moderate lateral and anterolateral hypokinesis. Recent admit adhf unclear etiology - will proceed with non invasive ischemic work up. January 2025 MPI moderate inferior ischemia. January 30, 2020 5 repeat cardiac cath ALVAREZ-LAD patent SVG-OM patent Mid RCA 50 to 70% Distal RCA 50-70% PDA occluded [id number]-bv-[id number] collaterals Mid circumflex 95-99 (patent SVG-OM) LVEF [...] initiation of Symbicort and his rescue inhaler. Plan: Through informed decision making process incorporating patients unique circumstances, the following treatment plan will be initiated: 1. Prescription drug management of cardiovascular medication for efficacy, adherence to treatment, side effect assessment and polypharmacy. Current treatment clinically warranted and to continue without modifications. 2. Return for follow-up; in the interim, contact the office if new symptoms arise. CAD ENGINEER 4 months Odilia Ernandez MSN, PRANAV-BUNGY JUMP MASTER, PMHNP-[facility] [place], [place] Please excuse any errors in grammar or translation related to this dictation. Voice recognition software was utilized to prepare this document. documented in this encounter [facility] Work Phone: 04-21-2025 Instructions BEATRICE Johnson - 04/21/2025 1:00 PM EDT Please bring [...] making process incorporating patients unique circumstances, the following treatment plan will be initiated: 1. Prescription drug management of cardiovascular medication for efficacy, adherence to treatment, side effect assessment and polypharmacy. Current treatment clinically warranted and to continue without modifications. 2. Return for follow-up; in the interim, contact the office if new symptoms arise. CAD ENGINEER 4 months documented in this encounter [facility] Work Phone: 03-26-2025 History of Presen t illness Narrative Associated Problem(s): Major depressive disorder, recurrent episode, moderate (HCC) Worsening symptoms and increase lamictal. Continue cymbalta. Associated Problem(s): COPD (chronic obstructive pulmonary disease) (HCC) SOB improved with symbicort and continue. Use albuterol PRN. Associated Problem(s): Actinic keratosis Discussed premalignant nature of lesion and recommended cryo. Used liquid nitrogen to perform 3 freeze thaw cycles and patient tolerated well. Warned will form blister and likely will take multiple treatments. If develop new or worsening symptoms call. Images from the original note were not included. Subjective Patient ID: Shaheed Latham is a 59 y.o. male who presents for Follow-up (Cryo ). Presents for cryo, see last note for details. Lesion on left shoulder for months to years. Keeps getting crusted and will pick off but not heal. C/o worsening depression. Down, sad, and no motivation. Feels tired all the time and wants to sleep all day. Upset with health problems and not able to stay active. Taking medication but still symptoms. SOB improved. Seen by cardiology and resumed symbicort. Former smoker and about 40 pack year history. PFTs mixed. Since starting inhaler less SOB with exertion. Able to stay active and walk more. Mild cough but no sputum. Review of Systems Constitutional: Negative for fatigue. Respiratory: Negative for cough, shortness of breath and wheezing. Cardiovascular: Negative for chest pain and palpitations. Gastrointestinal: Negative for abdominal pain, diarrhea, nausea and vomiting. Genitourinary: Negative for dysuria. Objective Physical Exam Constitutional: General: He is not in acute distress. Appearance: Normal appearance. HENT: Head: Normocephalic. Right Ear: Tympanic membrane and ear canal normal. Left Ear: Tympanic membrane and ear canal normal. Eyes: Extraocular Movements: Extraocular movements intact. Pupils: Pupils are equal, round, and reactive to light. Cardiovascular: Rate and Rhythm: Normal rate and regular rhythm. Heart sounds: No murmur heard. No friction rub. No gallop. Pulmonary: Breath sounds: Normal breath sounds. No wheezing, rhonchi or rales. Abdominal: General: Bowel sounds are normal. There is no distension. Palpations: Abdomen is soft. Tenderness: There is no abdominal tenderness. There is no guarding or rebound. Musculoskeletal: Left lower leg: No edema. Neurological: Mental Status: He is alert. Assessment/Plan Problem List Items Addressed This Visit Major depressive disorder, recurrent episode, moderate (HCC) - Primary Worsening symptoms and increase lamictal. Continue cymbalta. Relevant Medications lamoTRIgine (LaMICtal) 100 MG tablet Actinic keratosis Discussed premalignant nature of lesion and recommended cryo. Used liquid nitrogen to perform 3 freeze thaw cycles and patient tolerated well. Warned will form blister and likely will take multiple treatments. If develop new or worsening symptoms call. COPD (chronic obstructive pulmonary disease) (HCC) SOB improved with symbicort and continue. Use albuterol PRN. Relevant Medications budesonide-formoterol (Symbicort) 160-4.5 MCG/ACT inhaler albuterol HFA 90 mcg/act inhaler documented in this encounter [facility] 03-23-2025 Telephone encounter Note 1st attempt, unable to leave vm, no vm box set up 2nd, MyChart sent [facility] 03-23-2025 Miscellaneous Notes 1st attempt, unable to leave vm, no vm box set up 2nd, MyChart sent Not seen since 2022. Please complete nonfasting labs and schedule follow up visit. May schedule follow up phone/virtual or office visit with me or CAD ENGINEER for refill. MAY OFFER SAT., CLINIC (VIRTUAL/PHONE ONLY). Otherwise, please defer medication refills to current provider Thank you. Pharmacy electronically requests the following refill(s) Requested Prescriptions Pending Prescriptions Disp Refills celecoxib (CELEBREX) 200 mg capsule [Pharmacy Med Name: CELECOXIB 200 MG CAPSULE] 60 capsule 11 Sig: TAKE 1 CAPSULE BY MOUTH TWICE A DAY Saumya Duval MA Most recent Rheumatology visit: 04/01/2023 (with Mohini Hook) Last Bone Density on file: None on file Rheumatology Care Team: None on file Recent Office Visits - This Specialty 04/01/2023 Secondary osteoarthritis of multiple sites Rheumatology Mohini Hook MD 08/17/2022 Secondary osteoarthritis of multiple sites Rheumatology Mohini Hook MD Upcoming Rheumatology Appointments - Next 365 Days No appointments to display CBC: None on file in the last 6 months Vitamin D: None on file in the last 6 months LFT: None on file in the last 6 months Hepatic Function: Creatinine: None on file in the last 6 months ESR/CRP: None on file in the last 6 months Uric Acid: None on file in the last 6 months Open Standing (Multiple Instance) Lab Orders None Open Future (Single Instance) Lab Orders None documented in this encounter [facility] 03-18-2025 Telephone encounter Note Not seen since 2022. Please complete nonfasting labs and schedule follow up visit. May schedule follow up phone/virtual or office visit with me or CAD ENGINEER for refill. MAY OFFER SAT., CLINIC (VIRTUAL/PHONE ONLY). Otherwise, please defer medication refills to current provider Thank you. [facility] 03-16-2025 Telephone encounter Note [facility] 03-16-2025 Miscellaneous Notes documented in this encounter [facility] 03-16-2025 Telephone encounter Note Pharmacy electronically requests the following refill(s) Requested Prescriptions Pending Prescriptions Disp Refills celecoxib (CELEBREX) 200 mg capsule [Pharmacy Med Name: CELECOXIB 200 MG CAPSULE] 60 capsule 11 Sig: TAKE 1 CAPSULE BY MOUTH TWICE A DAY Saumya Duval MA Most recent Rheumatology visit: 04/01/2023 (with Mohini Hook) Last Bone Density on file: None on file Rheumatology Care Team: None on file Recent Office Visits - This Specialty 04/01/2023 Secondary osteoarthritis of multiple sites Rheumatology Mohini Hook MD 08/17/2022 Secondary osteoarthritis of multiple sites Rheumatology Mohini Hook MD Upcoming Rheumatology Appointments - Next 365 Days No appointments to display CBC: None on file in the last 6 months Vitamin D: None on file in the last 6 months LFT: None on file in the last 6 months Hepatic Function: Creatinine: None on file in the last 6 months ESR/CRP: None on file in the last 6 months Uric Acid: None on file in the last 6 months Open Standing (Multiple Instance) Lab Orders None Open Future (Single Instance) Lab Orders None [facility] 03-11-2025 Evaluation + Plan note Associated Problem(s): Hypersomnolence Reports hypersomnolence, snoring and witnessed apnea. Ischemic cardiomyopathy BMI 33 Agrees to referral for sleep study [facility] Work Phone: 03-11-2025 Miscellaneous Notes Associated Problem(s): Hypersomnolence Reports hypersomnolence, snoring and witnessed apnea. Ischemic cardiomyopathy BMI 33 Agrees to referral for sleep study Associated Problem(s): Shortness of breath Remains a [...] ordered repeat but inadvertently did not obtain. Associated Problem(s): BMI 33.0-33.9,adult Reviewed the merits of healthy lifestyle choices on overall cardiovascular health. Associated Problem(s): Hyperlipemia High intensity statin January 2025 HDL 69, LDL 63 Associated Problem(s): Cardiomyopathy, ischemic ICM HF improved [...] November 2024: ADHF admit Narrow QRS 82 Associated Problem(s): HTN (hypertension) Optimal in office Associated Problem(s): Atherosclerotic heart disease of [place] coronary artery with unspecified angina pectoris May 03, 2023 Anterior STEMI Two-vessel PCI of the diagonal branch & the ramus branch with subsequent intra-aortic balloon pump placement. He had chronic total occlusion of the mid LAD he was then transferred to [facility] : May 07, 2023 CABG ALVAREZ-LAD SVG-OM November 2024 TTE with moderate lateral and anterolateral hypokinesis. Recent admit adhf unclear etiology - will proceed with non invasive ischemic work up. January 2025 MPI moderate inferior ischemia. January 30, 2020 5 repeat cardiac cath ALVAREZ-LAD patent SVG-OM patent Mid RCA 50 to 70% Distal RCA 50-70% PDA occluded seig-kc-[id number] collaterals Mid circumflex 95-99 (patent SVG-OM) LVEF 40% Associated Problem(s): Current smoker 'working hard on quitting' Maybe 5 per day Continued every day tobacco use. Have reviewed the negative cardiovascular impact of nicotine. Continues to decline pharmacological assistance. documented in this encounter [facility] Work Phone: 03-11-2025 Evaluation + Plan note Associated Problem(s): Shortness of breath Remains a [...] ordered repeat but inadvertently did not obtain. [facility] Work Phone: 03-11-2025 Evaluation + Plan note Associated Problem(s): BMI 33.0-33.9,adult Reviewed the merits of healthy lifestyle choices on overall cardiovascular health. [facility] Work Phone: 03-11-2025 Evaluation + Plan note Associated Problem(s): Hyperlipemia High intensity statin January 2025 HDL 69, LDL 63 [facility] Work Phone: 03-11-2025 Evaluation + Plan note Associated Problem(s): Cardiomyopathy, ischemic ICM HF improved [...] November 2024: ADHF admit Narrow QRS 82 [facility] Work Phone: 03-11-2025 Evaluation + Plan note Associated Problem(s): HTN (hypertension) Optimal in office [facility] Work Phone: 03-11-2025 Evaluation + Plan note Associated Problem(s): Atherosclerotic heart disease of [place] coronary artery with unspecified angina pectoris May 03, 2023 Anterior STEMI Two-vessel PCI of the diagonal branch & the ramus branch with subsequent intra-aortic balloon pump placement. He had chronic total occlusion of the mid LAD he was then transferred to [facility] : May 07, 2023 CABG ALVAREZ-LAD SVG-OM November 2024 TTE with moderate lateral and anterolateral hypokinesis. Recent admit adhf unclear etiology - will proceed with non invasive ischemic work up. January 2025 MPI moderate inferior ischemia. January 30, 2020 repeat cardiac cath ALVAREZ-LAD patent SVG-OM patent Mid RCA 50 to 70% Distal RCA 50-70% PDA occluded viqv-zg-[id number] collaterals Mid circumflex 95-99 (patent SVG-OM) LVEF 40% [facility] Work Phone: 03-10-2025 Evaluation + Plan note Associated Problem(s): Current smoker 'working hard on quitting' Maybe 5 per day Continued every day tobacco use. Have reviewed the negative cardiovascular impact of nicotine. Continues to decline pharmacological assistance. [facility] Work Phone: 03-10-2025 History of Presen t illness Narrative Chief Complaint I am not doing too good Reason for Visit Patient presents to the office today for outpatient follow-up for testing follow-up. Last evaluated in clinic by myself last month. At that time he continued to report shortness of breath. I added Imdur with no real benefit, increased his diuretic with no real benefit. He had PFTs that were for the most part unremarkable. Repeat potassium 4.3, creatinine 1.44. His PCP has been further increased the water pill with no real improvement in shortness of breath. Presents today ambulatory with steady gait. Accompanied by patient Patient denies any hospitalizations or significant changes to interval medical history since last office follow-up. History of Present Illness Patient presents to the office today where he continues to report persistent shortness of breath. Despite increased diuretics and increased antianginals have not been able to get any type of improvement. He does have an old Symbicort inhaler he received from the emergency department and he reports that this does seem to help , sometimes the heat and humidity seem to make things worse. There is no orthopnea or PND. He continues to feel like he is holding onto fluid in his face and hands, his weight is only up 2 pounds. Unfortunately he continues to smoke. On record review PCP had ordered a repeat CT due to a 2022 CT showing lung nodules, he did not complete. At this time, I will repeat that CT and also just get a chest x-ray. I will have to refer him over to Pulmonary for evaluation. Although unlikely, I will check a D-dimer (did not want to do full contrast CT PE protocol due to creatinine 1.8 following cath dye). November 2024 TTE RVSP 14, MR mild Question anxiety contributing Patient reports that overall has no complaint(s) of chest pain, chest pressure/discomfort, claudication, fatigue, irregular heart beat, and lower extremity edema Review of Systems Cardiovascular: Negative for chest pain, dyspnea on exertion, irregular heartbeat, leg swelling, near-syncope, orthopnea, palpitations, paroxysmal nocturnal dyspnea and syncope. Respiratory: Positive for shortness of breath. Visit Vitals BP 128/80 (BP Location: Left arm, Patient Position: Sitting) Pulse 76 Ht 1.702 m (5' 7 ) Wt 95.7 kg (211 lb) BMI 33.05 kg/m Smoking Status Some Days BSA 2.13 m Physical Exam Vitals and nursing note reviewed. [...] ONCE DAILY -DO NOT CRUSH OR CHEW multivitamin with minerals tablet 1 [...] decline pharmacological assistance. Atherosclerotic heart disease of [place] coronary artery with unspecified angina pectoris ([facility]) May 03, 2023 Anterior STEMI Two-vessel PCI of the diagonal branch & the ramus branch with subsequent intra-aortic balloon pump placement. He had chronic total occlusion of the mid LAD he was then transferred to [facility] : May 07, 2023 CABG ALVAREZ-LAD SVG-OM November 2024 TTE with moderate lateral and anterolateral hypokinesis. Recent admit adhf unclear etiology - will proceed with non invasive ischemic work up. January 2025 MPI moderate inferior ischemia. January 30, 2020 5 repeat cardiac cath ALVAREZ-LAD patent SVG-OM patent Mid RCA 50 to 70% Distal RCA 50-70% PDA occluded [id number] collaterals Mid circumflex 95-99 (patent SVG-OM) LVEF [...] January 2025 HDL 69, LDL 63 BMI 33.0-33.9,adult Reviewed the merits of healthy lifestyle choices [...] ordered repeat but inadvertently did not obtain. Hypersomnolence Reports hypersomnolence, snoring and witnessed apnea. Ischemic cardiomyopathy BMI 33 Agrees to referral for sleep study Plan: Through informed decision making process incorporating patients unique circumstances, the following treatment plan will be initiated: 1. Prescription drug management of cardiovascular medication for efficacy, adherence to treatment, side effect assessment and polypharmacy. Current treatment clinically warranted and to continue without modifications. 2. Inhaler has been sent to pharmacy 3. CXR pa/lat (SOB) 4. CT chest no contrast (SOB, nodule 2022) 5. Referral to Pulmonary due to SOB 6. Referral to sleep medicine for CAYLA work up 7. Labs (chem6, BNP, cbc, d-dimer) 8. Return for follow-up; in the interim, contact the office if new symptoms arise. CAD ENGINEER 6 weeks You need to stop smoking. Though it is not easy, more than half of all adults smokers have quit. We encourage you to write down all the reasons you should quit smoking and set a quit date for yourself. Ask us how we can help. You may also call 1-238-DYML-NOW for free resources and assistance. Odilia Ernandez MSN, 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, PMHNP-[facility] [place], [place] Please excuse any errors in grammar or translation related to this dictation. Voice recognition software was utilized to prepare this document. documented in this encounter [facility] Work Phone: 03-10-2025 Instructions BEATRICE Johnson - 03/10/2025 2:00 PM EDT Please bring all medicines, vitamins, [...] making process incorporating patients unique circumstances, the following treatment plan will be initiated: 1. Prescription drug management of cardiovascular medication for efficacy, adherence to treatment, side effect assessment and polypharmacy. Current treatment clinically warranted and to continue without modifications. 2. Inhaler has been sent to pharmacy 3. CXR pa/lat (SOB) 4. CT chest no contrast (SOB, nodule 2022) 5. Referral to Pulmonary due to SOB 6. Referral to sleep medicine for CAYLA work up 7. Labs (chem6, BNP, cbc, d-dimer) 8. Return for follow-up; in the interim, contact the office if new symptoms arise. CAD ENGINEER 6 weeks You need to stop smoking. Though it is not easy, more than half of all adults smokers have quit. We encourage you to write down all the reasons you should quit smoking and set a quit date for yourself. Ask us how we can help. You may also call 1-968-SGUH-NOW for free resources and assistance. documented in this encounter [facility] Work Phone: 02-25-2025 History of Presen t illness Narrative Associated Problem(s): Actinic keratosis Lesion appears to be AK and will return for cryo. Associated Problem(s): Recurrent depressive disorder, current episode mild Mood controlled with medication and continue at current dose. Associated Problem(s): Lumbar spondylosis Pain unchanged and use percocet PRN. Discussed risks and benefits of opiate therapy. Warned medication is narcotic and risk of addiction. OARRS reviewed. Associated Problem(s): Generalized anxiety disorder Mood controlled with medication and continue at current dose. Associated Problem(s): Coronary artery disease Continued pain and monitor. Follow with cardiology. Associated Problem(s): Chronic HFrEF (heart failure with reduced ejection fraction) (HCC) Increased edema and increase aldactone. Follow with cardiology. Associated Problem(s): Benign essential hypertension BP elevated but previously controlled and monitor PRN. Subjective Patient ID: Shaheed Latham is a 59 y.o. male who presents for Follow-up (3m), Fatigue, and Shortness of Breath. Follow up HTN, CHF, CAD, depression, anxiety, and pain. Patient not feeling well today. Continues to have SOB with exertion. Continues to have chest discomfort. Cath few weeks ago showed blockage but too small to stent. Added imdur. Continues to have severe fatigue with exertion. Notice worsening edema and increased swelling in feet and hands. Weight up 8 pounds in past month. Checking BP PRN and typically controlled. BP elevated today. Taking medication daily and tolerating without side effects. Mood controlled with medication. Not as down or sad and feels happier. Interacting well with others and able to do more. Anxiety stable. Not as stressed out or overwhelmed. Not as nervous or worry as much. Not as singh or irritable. Pain unchanged. Pain in low back, hands, and shoulder. Pain with activity and walking. Harder to work or stay active due to pain. Using percocet and helps. C/o lesion on left shoulder for months and not healing. Initially crusted and came off. Now irritated. Will form scale and come off but not healing. Fatigue Associated symptoms include fatigue. Pertinent negatives include no abdominal pain, chest pain, coughing, nausea or vomiting. Shortness of Breath Pertinent negatives include no abdominal pain, chest pain, vomiting or wheezing. Review of Systems Constitutional: Positive for fatigue. Respiratory: Positive for shortness of breath. Negative for cough and wheezing. Cardiovascular: Negative for chest pain and palpitations. Gastrointestinal: Negative for abdominal pain, diarrhea, nausea and vomiting. Genitourinary: Negative for dysuria. Objective Physical Exam Constitutional: General: He is not in acute distress. Appearance: Normal appearance. HENT: Head: Normocephalic. Right Ear: Tympanic membrane and ear canal normal. Left Ear: Tympanic membrane and ear canal normal. Eyes: Extraocular Movements: Extraocular movements intact. Pupils: Pupils are equal, round, and reactive to light. Cardiovascular: Rate and Rhythm: Normal rate and regular rhythm. Heart sounds: No murmur heard. No friction rub. No gallop. Pulmonary: Breath sounds: Normal breath sounds. No wheezing, rhonchi or rales. Abdominal: General: Bowel sounds are normal. There is no distension. Palpations: Abdomen is soft. Tenderness: There is no abdominal tenderness. There is no guarding or rebound. Musculoskeletal: Left lower leg: No edema. Neurological: Mental Status: He is alert. Assessment/Plan Problem List Items Addressed This Visit Benign essential hypertension - Primary BP elevated but previously controlled and monitor PRN. Lumbar spondylosis Pain unchanged and use percocet PRN. Discussed risks and benefits of opiate therapy. Warned medication is narcotic and risk of addiction. OARRS reviewed. Coronary artery disease Continued pain and monitor. Follow with cardiology. Generalized anxiety disorder Mood controlled with medication and continue at current dose. Recurrent depressive disorder, current episode mild Mood controlled with medication and continue at current dose. Chronic HFrEF (heart failure with reduced ejection fraction) (HCC) Increased edema and increase aldactone. Follow with cardiology. Relevant Medications spironolactone (Aldactone) 50 MG tablet Actinic keratosis Lesion appears to be AK and will return for cryo. documented in this encounter [facility] 02-24-2025 Evaluation + Plan note Associated Problem(s): Shortness of breath Remains a persistent complaint. Short of breath at rest and with exertion. No evidence orthopnea or PND. No benefit from initiation of diuretic. Former smoker but denies history of COPD. We will complete PFTs [facility] Work Phone: 02-24-2025 Evaluation + Plan note Associated Problem(s): BMI 31.0-31.9,adult Reviewed the merits of healthy lifestyle choices on overall cardiovascular health. [facility] Work Phone: 02-24-2025 Evaluation + Plan note Associated Problem(s): Hyperlipemia High intensity statin January 2025 HDL 69, LDL 63 [facility] Work Phone: 02-24-2025 Miscellaneous Notes Associated Problem(s): Shortness of breath Remains a persistent complaint. Short of breath at rest and with exertion. No evidence orthopnea or PND. No benefit from initiation of diuretic. Former smoker but denies history of COPD. We will complete PFTs Associated Problem(s): BMI 31.0-31.9,adult Reviewed the merits of healthy lifestyle choices on overall cardiovascular health. Associated Problem(s): Hyperlipemia High intensity statin January 2025 HDL 69, LDL 63 Associated Problem(s): Cardiomyopathy, ischemic ICM HF improved [...] November 2024: ADHF admit Narrow QRS 82 Associated Problem(s): HTN (hypertension) Borderline in the office today Associated Problem(s): Atherosclerotic heart disease of [place] coronary artery with unspecified angina pectoris May 03, 2023 Anterior STEMI Two-vessel PCI of the diagonal branch & the ramus branch with subsequent intra-aortic balloon pump placement. He had chronic total occlusion of the mid LAD he was then transferred to [facility] : May 07, 2023 CABG ALVAREZ-LAD SVG-OM November 2024 TTE with moderate lateral and anterolateral hypokinesis. Recent admit adhf unclear etiology - will proceed with non invasive ischemic work up. January 2025 MPI moderate inferior ischemia. January 30, 2020 repeat cardiac cath ALVAREZ-LAD patent SVG-OM patent Mid RCA 50 to 70% Distal RCA 50-70% PDA occluded [id number] collaterals Mid circumflex 95-99 (patent SVG-OM) LVEF 40% Presents today where he continues to report dyspnea on exertion and somewhat atypical chest pain (only occurs at rest and not with heavy exertion). Will add long-acting nitrates. He has also been a longstanding smoker denies any prior history of COPD but will check PFTs. Associated Problem(s): Current smoker 'working hard on quitting' Maybe 5 per day Continued every day tobacco use. Have reviewed the negative cardiovascular impact of nicotine. Continues to decline pharmacological assistance. documented in this encounter [facility] Work Phone: 02-24-2025 Evaluation + Plan note Associated Problem(s): Cardiomyopathy, ischemic ICM HF improved [...] November 2024: ADHF admit Narrow QRS 82 [facility] Work Phone: 02-24-2025 Evaluation + Plan note Associated Problem(s): HTN (hypertension) Borderline in the office today [facility] Work Phone: 02-24-2025 Evaluation + Plan note Associated Problem(s): Atherosclerotic heart disease of [place] coronary artery with unspecified angina pectoris May 03, 2023 Anterior STEMI Two-vessel PCI of the diagonal branch & the ramus branch with subsequent intra-aortic balloon pump placement. He had chronic total occlusion of the mid LAD he was then transferred to [facility] : May 07, 2023 CABG ALVAREZ-LAD SVG-OM November 2024 TTE with moderate lateral and anterolateral hypokinesis. Recent admit adhf unclear etiology - will proceed with non invasive ischemic work up. January 2025 MPI moderate inferior ischemia. January 30, 2020 5 repeat cardiac cath ALVAREZ-LAD patent SVG-OM patent Mid RCA 50 to 70% Distal RCA 50-70% PDA occluded [id number] collaterals Mid circumflex 95-99 (patent SVG-OM) LVEF 40% Presents today where he continues to report dyspnea on exertion and somewhat atypical chest pain (only occurs at rest and not with heavy exertion). Will add long-acting nitrates. He has also been a longstanding smoker denies any prior history of COPD but will check PFTs. [facility] Work Phone: 02-23-2025 Evaluation + Plan note Associated Problem(s): Current smoker 'working hard on quitting' Maybe 5 per day Continued every day tobacco use. Have reviewed the negative cardiovascular impact of nicotine. Continues to decline pharmacological assistance. [facility] Work Phone: 02-23-2025 History of Presen t illness Narrative Chief Complaint I am still short of breath Reason for Visit Patient presents to the office today for outpatient follow-up for testing follow-up. Last evaluated in clinic by myself December 2024. At that time, resume Jardiance. A subsequent perfusion study showed moderate inferior ischemia. January 29, 2025 uneventful elective cardiac cath with recommendations for medical management. Presents today ambulatory with steady gait. Accompanied by patient Patient denies any hospitalizations or significant changes to interval medical history since last office follow-up. History of Present Illness Patient is a pleasant 59-year-old gentleman who presents to the office today where he continues to report dyspnea on exertion and chest pain. The dyspnea on exertion has been somewhat of a persistent complaint and sometimes is worsened with the humidity and hot weather. 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 He then reports chest pain that happens at night or while he is relaxing. Occurring approximately 3 times a week. He denies any orthopnea, no PND. No evidence of volume overload. Most recent creatinine was 1.83-need to repeat. She continued dyspnea on exertion, reluctant to stop his Lasix. He will get lab work when he leaves the office. Patient reports that overall has no complaint(s) of fatigue, irregular heart beat, lower extremity edema, near-syncope, orthopnea, and palpitations Daily activity: > 4 METs Denies any change in exercise capacity or functional tolerance since last office visit. Review of Systems Cardiovascular: Positive for chest pain and dyspnea on exertion. Negative for irregular heartbeat, leg swelling, near-syncope, orthopnea, palpitations, paroxysmal nocturnal dyspnea and syncope. Respiratory: Positive for shortness of breath. Visit Vitals BP 142/80 (BP Location: Left arm, Patient Position: Sitting) Pulse 80 Ht 1.702 m (5' 7 ) Wt 94.9 kg (209 lb 3.2 oz) BMI 32.77 kg/m Smoking Status Some Days BSA 2.12 m Physical Exam Vitals and nursing note reviewed. Constitutional: Appearance: Normal appearance. Cardiovascular: Rate and Rhythm: Normal rate and regular rhythm. Heart sounds: Normal heart sounds. Pulmonary: Effort: Pulmonary effort is normal. Breath sounds: Examination of the right-lower field reveals decreased breath sounds. Examination of the left-lower field reveals decreased breath sounds. Decreased breath sounds present. Musculoskeletal: Cervical back: Full passive range of [...] Daily atorvastatin (LIPITOR) 80 mg, oral, Daily clopidogrel (PLAVIX) 75 mg, oral, Daily cyanocobalamin (VITAMIN B-12) 500 mcg, Daily DULoxetine [...] ONCE DAILY -DO NOT CRUSH OR CHEW multivitamin with minerals tablet 1 tablet, oral, Daily nitroglycerin (NITROSTAT) 0.4 mg, sublingual, Every 5 min PRN, May repeat dose every 5 minutes for up to 3 doses total. omeprazole (PRILOSEC) 40 mg, 2 times daily oxyCODONE (ROXICODONE) 5 mg, oral, Every 4 hours PRN sacubitriL-valsartan (Entresto) 49-51 mg tablet 1 tablet, oral, 2 times daily triamcinolone (Kenalog) 0.5 % cream 3 times daily Assessment: Current smoker 'working hard on quitting' Maybe 5 per day Continued every day tobacco use. Have reviewed the negative cardiovascular impact of nicotine. Continues to decline pharmacological assistance. Atherosclerotic heart disease of [place] coronary artery with unspecified angina pectoris ([facility]) May 03, 2023 Anterior STEMI Two-vessel PCI of the diagonal branch & the ramus branch with subsequent intra-aortic balloon pump placement. He had chronic total occlusion of the mid LAD he was then transferred to [facility] : May 07, 2023 CABG ALVAREZ-LAD SVG-OM November 2024 TTE with moderate lateral and anterolateral hypokinesis. Recent admit adhf unclear etiology - will proceed with non invasive ischemic work up. January 2025 MPI moderate inferior ischemia. January 30, 2020 5 repeat cardiac cath ALVAREZ-LAD patent SVG-OM patent Mid RCA 50 to 70% Distal RCA 50-70% PDA occluded [id number] collaterals Mid circumflex 95-99 (patent SVG-OM) LVEF 40% Presents today where he continues to report dyspnea on exertion and somewhat atypical chest pain (only occurs at rest and not with heavy exertion). Will add long-acting nitrates. He has also been a longstanding smoker denies any prior history of COPD but will check PFTs. HTN (hypertension) Borderline in the office today Cardiomyopathy, ischemic ICM HF improved EF 40% [...] January 2025 HDL 69, LDL 63 BMI 31.0-31.9,adult Reviewed the merits of healthy lifestyle choices on overall cardiovascular health. Shortness of breath Remains a persistent complaint. Short of breath at rest and with exertion. No evidence orthopnea or PND. No benefit from initiation of diuretic. Former smoker but denies history of COPD. We will complete PFTs Plan: Through informed decision making process incorporating patients unique circumstances, the following treatment plan will be initiated: 1. Prescription drug management of cardiovascular medication for efficacy, adherence to treatment, side effect assessment and polypharmacy. Current treatment clinically warranted and to continue with following modifications: - Begin imdur 30mg daily 2. NTG sl sent to pharmacy 3. PFTs (CURRY, smoker) 4. Labs (chem6) 5. Return for follow-up; in the interim, contact the office if new symptoms arise. CAD ENGINEER after testing Odilia Ernandez MSN, 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, PMHNP-[facility] [place], [place] Please excuse any errors in grammar or translation related to this dictation. Voice recognition software was utilized to prepare this document. documented in this encounter [facility] Work Phone: 02-23-2025 Instructions BEATRICE Johnson - 02/23/2025 11:30 AM EDT Please bring all medicines, vitamins, and [...] making process incorporating patients unique circumstances, the following treatment plan will be initiated: 1. Prescription drug management of cardiovascular medication for efficacy, adherence to treatment, side effect assessment and polypharmacy. Current treatment clinically warranted and to continue with following modifications: - Begin imdur 30mg daily 2. NTG sl sent to pharmacy 3. PFTs (CURRY, smoker) 4. Labs (chem6) 5. Return for follow-up; in the interim, contact the office if new symptoms arise. CAD ENGINEER after testing documented in this encounter [facility] Work Phone: 01-29-2025 Procedure note [facility] enter 01-21-2025 History of Presen t illness Narrative Associated Problem(s): Acute on chronic HFrEF (heart failure with reduced ejection fraction) (HCC) Recent admission and medication adjusted. Doing well and monitor daily weights. Follow up with cardiology. Images from the original note were not included. Subjective Patient ID: Shaheed Latham is a 59 y.o. male who presents for Follow-up ([facility]). Hospital follow up from 01/06-01/08 for CHF exacerbation. Developed SOB over 1 week. Increased swelling in both legs. SOB with exertion and not able to lay flat. To ER and x-ray showed fluid overload and BNP 2602. Echo 11/27 showed EF 40-45%. Admitted and given IV lasix. Seen by cardiology and increased entresto and added jardiance. Doing well since home. Monitoring weight daily. No SOB or edema. Taking medication daily. Review of Systems Constitutional: Negative for fatigue. Respiratory: Negative for cough, shortness of breath and wheezing. Cardiovascular: Negative for chest pain and palpitations. Gastrointestinal: Negative for abdominal pain, diarrhea, nausea and vomiting. Genitourinary: Negative for dysuria. Objective Physical Exam Constitutional: General: He is not in acute distress. Appearance: Normal appearance. HENT: Head: Normocephalic. Right Ear: Tympanic membrane and ear canal normal. Left Ear: Tympanic membrane and ear canal normal. Eyes: Extraocular Movements: Extraocular movements intact. Pupils: Pupils are equal, round, and reactive to light. Cardiovascular: Rate and Rhythm: Normal rate and regular rhythm. Heart sounds: No murmur heard. No friction rub. No gallop. Pulmonary: Breath sounds: Normal breath sounds. No wheezing, rhonchi or rales. Abdominal: General: Bowel sounds are normal. There is no distension. Palpations: Abdomen is soft. Tenderness: There is no abdominal tenderness. There is no guarding or rebound. Musculoskeletal: Left lower leg: No edema. Neurological: Mental Status: He is alert. Assessment/Plan Problem List Items Addressed This Visit Acute on chronic HFrEF (heart failure with reduced ejection fraction) (HCC) - Primary Recent admission and medication adjusted. Doing well and monitor daily weights. Follow up with cardiology. Relevant Medications furosemide (Lasix) 40 MG tablet documented in this encounter [facility] 01-08-2025 Discharge summary Note Date/Time January 08, 2025 1:20p m [facility] ENTER [address] [place] [address] Discharge Summary Signed Patient: Morgan Latham MR#: [id number] : 1965 Acct:[id number] Age/Sex: 59 / M Adm Date: 5 Loc: Room: [address] [place] [address]: Jud Hutchison MD Copies to: MD Conchita Molina DO, RES Jud Hutchison MD~ Providers Date of Admission: 01/06/25 Date of Discharge: 01/08/25 Discharging Provider: Jud Hutchison Additional Discharging Provider: Conchita Ivy Primary Care Provider: Juve Mcpherson Consults: 01/06/25 11:39 Consult to Cardiology Routine Comment: Consulting Provider: [facility] Reason For Exam: CHF exacerbation, elevatd trop Has Provider Been Notified: Yes Date of Notification: 01/06/25 Time of Notification: 12:37 01/06/25 13:11 Consult to Sleep Lab Routine Comment: Physician Instructions: 01/07/25 20:06 Consult to Sleep Lab Routine Comment: want to schedule outpatient sleep study Physician Instructions: Discharge Diagnosis (1) CHF (congestive heart failure): (2) Acute exacerbation of chronic obstructive airways disease: (3) History of heart bypass surgery: (4) Ischemic cardiomyopathy: Final Diagnosis Final Discharge Diagnosis: acute exacerbation of congestive heart failure ischemic cardiomyopathy with history of CABG Summary Hospital Course Hospital course: Mr. Latham is a 59yo male with a PMH of CAD with stents and bypass 04/2023, ischemic cardiomyopathy, HTN, and HLD who presented to the ER via helicopter from [facility] for several days SOB worse for 1-2 days. He reported that over the past week or so, he had worsening shortness of breath and cough. He had some chest heaviness and reports some PND and orthopnea. 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 In the ER, he was placed on BiPAP because of the AMS/lethargy which he responded well to. He was hypertensive andafebrile. CXR showed fluid overload and BNP was elevated to 2602. Trop was initially 58 with repeat 86. On presentation, sodium 138, K 4.0, lactic 0.7. No leukocytosis. Anemic with hgb 9.8, plt 346. Head CT with no acute findings. Negative for flu, covid, RSV. He received Lasix 40mg IV in the ER. He was treated with IV Lasix 40mg BID, DuoNebs, 2 days oral prednisone, and nightly CPAP. He had good urinary output, improvement in his lower extremity edema, and dramatic improvement in respiratory status. He has been off of supplemental oxygen for over 36 hours with good oxygenation saturation. He was seen by cardiology who states he is on GDMT without evidence of ACS. During thestay, he was in normal sinus rhythm throughout. UA was negative. Tox screen only positive for opiates, and he is on pain mediation chronically. His blood pressures were elevated while here, so we will increase his Entresto and get himrestarted on Jardiance. PFTs from 07/2023 do not show COPD, but he does have possible asthma or reactive airway disease which responded to bronchodilators, so will send in for albuterol inhaler. He had good response with DuoNebs here. Additionally, he was counselled on smoking cessation and recommended to follow up with cardiology, PCP, and would benefit from a sleep study with sleep medicine. The patient has been seen and examined. I personally obtained the miller and critical portions of the history and physical exam. I reviewed the chart, the team's documentation, and discussed the patient care with the team. I agree with the team's medical decision making and have edited the note to reflect my clinical findings and my assessment and plan. MD Mann Time spent discussing smoking cessation with patient: 3 to 10 minutes Condition Condition at Discharge: Stable Status at Discharge Functional status at discharge: independent ambulation Overall status at discharge: patient is back to baseline Time Spent with Patient Time spent providing/coordinating discharge services (# min): 40 Discharge Plan Discharge Plan Patient Disposition: Home Activity: No Activity Restriction Diet: Low-Fat and Low-Sodium Instructions: Know your Meds Prescriptions: New empagliflozin 10 mg tablet 10 mg PO DAILY Qty: 30 0RF Entresto 97-103 mg tablet 1 tab PO BID Qty: 60 0RF albuterol sulfate 90 mcg/actuation HFA aerosol inhaler 2 inh inhalation Q4-6H PRN (Reason: shortness of breath or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 no murmurs Pulses: radial pulses present GI Inspection: normal to inspection Palpation: soft Skin General: no rashes or lesions noted Neuro General: patient alert, patient awake and patient oriented x3 Cognition: normal cognition Speech: speech normal Extrem General: no clubbing, cyanosis or edema Results - Cardiology Labs 01/07/25 04:47 01/07/25 04:47 Lab results: Cardiac Enzymes 01/07/25 Range/Units 04:47 AST 18 (13-39) U/L CBC 01/07/25 Range/Units 04:47 RBC 3.40 L (3.90-5.60) x10E6/uL Hgb 10.1 L (13.0-17.0) g/dL Hct 30.5 L (38.8-50.0) % Plt Count 350 (150-450) x10E3/uL Neut # (Auto) 3.0 (1.8-7.7) x10E3/uL Lymph # (Auto) 0.6 L (1.00-4.8) x10E3/uL Harris # (Auto) 0.6 (0.0-0.8) x10E3/uL Eos # (Auto) 0.2 (0.0-0.45) x10E3/uL Baso # (Auto) 0.1 (0.0-0.2) x10E3/uL Comprehensive Metabolic Panel 01/07/25 Range/Units 04:47 Sodium 141 (136-145) mmol/L Potassium 3.5 (3.5-5.1) mmol/L Chloride 104 (98-107) mmol/L Carbon Dioxide 26.9 (21.0-31.0) mmol/L BUN 15 (7-25) mg/dL Creatinine 1.22 (0.70-1.30) mg/dL Glucose 118 H (70-100) mg/dL Calcium 8.6 (8.6-10.3) mg/dL AST 18 (13-39) U/L ALT 16 (7-52) U/L Alkaline Phosphatase 87 (34-104) U/L Total Protein 6.3 L (6.4-8.9) gm/dL Albumin 3.8 (3.5-5.7) gm/dL Intake and Output 01/07/25 01/07/25 01/07/25 07:59 15:59 23:59 Intake Total 50 / 700 400 / 700 250 / 700 Output Total 1949 Balance -775 / -1250 -375 / -1250 -100 / -1250 Intake: Oral 50 / 700 400 / 700 250 / 700 Output: Urine 1949 Other: # Bowel Movements 0 0 0 Weight 90 kg Date of Last Bowel Movement 01/06/25 Patient Weight 01/07/25 23:59 Weight 90 kg A&P - Cardiology (1) CHF (congestive heart failure): Code(s): I50.9 - Heart failure, unspecified (2) Acute exacerbation of chronic obstructive airways disease: Code(s): J44.1 - Chronic obstructive pulmonary disease with (acute) exacerbation (3) History of heart bypass surgery: Code(s): Z95.1 - Presence of aortocoronary bypass graft (4) Ischemic cardiomyopathy: Code(s): I25.5 - Ischemic cardiomyopathy Plan See above, continue IV loop diuresis Convert to oral loop diuresis Saturday morning with possible discharge and will follow-up with cardiology Documented By: Hetal Quick DO 01/07/251720 Signed By: 01/07/251724 [facility]06-05-2025 Progress note Author Jud Hutchison [facility] Note Date/Time January 07, 2025 2:27p m [facility] [address] [place] [address] Hospitalist Progress Note Signed Patient: Morgan Latham MR#: [id number] : 1965 Acct:[id number] Age/Sex: 59 / M Adm Date: 5 Loc: Room: [address] [place] [address] Type: ADM IN Attending Dr: Jud Hutchison MD Copies to: ~ Date of Service: 01/07/2025 Subjective Subjective Narrative: Patient was seen and evaluated sitting on the side of the bed with family in theroom. No overnight events. Labs reviewed without significant abnormalities. Blood pressure rather elevated though he had some normal pressures overnight. He reports he is feeling better and is able to take deeper breaths than when he first came in. He also has been able to sleep better laying down. He also reports some improvement in sinus congestion. He denies any chest pain or pressure. Exam Physical Exam Vital Signs: Temp Pulse Resp BP Pulse Ox O2 Del Method O2 Flow Rate 98.4 F 81 20 162/101 H 100 Room Air 2 01/07/25 08:00 01/07/25 09:20 01/07/25 09:20 01/07/25 08:00 01/07/25 08:00 01/07/25 09:23 01/06/25 15:34 FiO2 30 01/07/25 04:29 Narrative: General: no acute distress, speaking in full sentences Skin: Warm, dry, no rash Head: Normocephalic, atraumatic Neck: Supple, trachea midline, no JVD Eye: Pupils are equal, round and reactive to light, extraocular movements are intact, normal conjunctiva Ears, nose, mouth and throat: oral mucosa moist Cardiovascular: Regular rate and rhythm, no murmur; trace edema Respiratory: lungs CTA b/l, no respiratory distress Gastrointestinal: Soft, nontender, non distended, normal bowel sounds MSK: 5 out of 5 muscle strength x 4 extremities, no calf pain, minimal edema Psychiatric: Cooperative, appropriate mood & affect Neurological: Alert and oriented to person, place, time, and situation, no focal neurological deficit observed Objective Lab Results 01/07/25 04:47 01/07/25 04:47 Microbiology Results Microbiology 01/06/25 10:13 Blood - Left Antecubital Blood Culture - Preliminary No Growth 1 Day 01/06/25 10:13 Blood - Right Antecubital Blood Culture - Preliminary No Growth 1 Day 01/06/25 12:02 Nasopharyngeal SARS-CoV-2, Influenza & RSV (PCR) - Final Meds Allergies and Active Meds Allergies No Known Allergies Allergy (Verified 11/18/24 16:55) Active Meds: Active Medications Generic Name Dose Route Start Last Admin Trade Name Freq PRN Reason Stop Dose Admin Acetaminophen 1,000 mg 01/06/25 20:25 01/07/25 08:52 Acetaminophen 500 Mg Tablet PO 01/06/26 20:24 1,000 mg Q6H PRN Administration Fever or Pain Albuterol/Ipratropium 3 ml 01/06/25 16:00 01/07/25 09:19 Ipratropium/Albuterol 0.5-3 Mg 3 Ml Ampul.Neb INHALATION 01/06/26 15:59 3 ml QID.RESP CARMEN Administration Amlodipine Besylate 5 mg 01/07/25 09:00 01/07/25 08:53 Amlodipine 5 Mg Tablet PO 01/07/26 08:59 5 mg DAILY CARMEN Administration Aspirin 81 mg 01/07/25 09:00 01/07/25 08:56 Aspirin 81 Mg Tablet.Dr HERNANDEZ 01/07/26 08:59 81 mg QAM CARMEN Administration Atorvastatin Calcium 80 mg 01/07/25 09:00 01/07/25 08:56 Atorvastatin 80 Mg Tablet PO 01/07/26 08:59 80 mg QAM CARMEN Administration Budesonide/Formoterol Fumarate 2 puff 01/06/25 21:00 01/07/25 09:20 Budesonide/Formoterol 160-4.5 Mcg 60 Puff/6 Gm Hfa.Aer.Ad INHALATION 01/06/26 20:59 2 puff BID CARMEN Administration Clopidogrel Bisulfate 75 mg 01/07/25 09:00 01/07/25 08:52 Clopidogrel Bisulfate 75 Mg Tablet PO 01/07/26 08:59 75 mg QAM CARMEN Administration Duloxetine HCl 60 mg 01/07/25 09:00 01/07/25 08:55 Duloxetine 60 Mg Capsule. PO 01/07/26 08:59 60 mg QAM CARMEN Administration Furosemide 40 mg 01/06/25 16:00 01/07/25 08:53 Furosemide 40 Mg/4 Ml Vial IV-PUSH 01/06/26 15:59 40 mg BID@0800,1600 CARMEN Administration Guaifenesin 600 mg 01/06/25 14:46 01/07/25 08:53 Guaifenesin 600 Mg Tab.Er.12h PO 01/06/26 14:45 600 mg BID PRN Administration Congestion Heparin Sodium (Porcine) 5,000 unit 01/06/25 21:00 01/07/25 08:52 Heparin 5,000 Unit/Ml Vial SUBCUT 01/06/26 20:59 5,000 unit Q12HR CARMEN Administration Hydralazine HCl 5 mg 01/06/25 16:22 Hydralazine 20 Mg/Ml Vial IV-PUSH 01/06/26 16:21 Q6H PRN if SBP > 185 Lamotrigine 50 mg 01/06/25 22:00 01/06/25 21:38 Lamotrigine 25 Mg Tablet PO 01/06/26 21:59 50 mg QHS CARMEN Administration Metoprolol Succinate 100 mg 01/06/25 16:00 01/07/25 08:56 Metoprolol Succinate 100 Mg Tab.Er.24h PO 01/06/26 15:59 100 mg QAM CARMEN Administration Multivitamins 1 tab 01/07/25 09:00 01/07/25 08:54 Multivitamin 1 Tab Tablet PO 01/07/26 08:59 1 tab QAM CARMEN Administration Oxycodone HCl 10 mg 01/06/25 20:24 01/07/25 06:32 Oxycodone Ir 5 Mg Tablet PO 10 mg Q6H PRN Administration Pain Scale 6 - 10 Pantoprazole Sodium 40 mg 01/07/25 09:00 01/07/25 08:54 Pantoprazole 40 Mg Tablet.Dr PO 01/07/26 08:59 40 mg BID CARMEN Administration Prednisone 40 mg 01/07/25 09:00 01/07/25 08:55 Prednisone 20 Mg Tablet PO 01/07/26 08:59 40 mg DAILY CARMEN Administration Sacubitril/Valsartan 1 tab 01/06/25 16:00 01/07/25 08:54 Sacubitril/Valsartan 49-51mg 1 Tab Tablet PO 01/06/26 15:59 1 tab BID CARMEN Administration Sodium Chloride 0 ml 01/06/25 09:32 01/06/25 11:01 Sodium Chloride 0.9 % 10 Ml Syringe IV-PUSH 01/06/26 09:31 10 ml PRN PRN Administration Flush Sodium Chloride 9 ml 01/06/25 11:45 Sodium Chloride 0.9 % 10 Ml Vial.Pf INJECTION 01/06/26 11:44 PRN PRN To Dilute the Naloxone 0.4 mg/mL vial to 10 mL Spironolactone 25 mg 01/07/25 09:00 01/07/25 08:56 Spironolactone 25 Mg Tablet PO 01/07/26 08:59 25 mg QAM CARMEN Administration Triamcinolone Acetonide 1 applic 01/06/25 14:46 Triamcinolone 0.5% Cream 15 Gm Tube TOPICAL 01/06/26 14:45 DAILY PRN rash A&P - Hospitalist Assessment/Plan (1) CHF (congestive heart failure): (2) Apnea, sleep: (3) Acute exacerbation of chronic obstructive airways disease: Plan - continue Lasix 40mg IV BID. Pt is down nearly 3L since arrival. - continue home spironolactone, Entresto, metoprolol - continue DuoNebs QID - will stop oral prednisone - CPAP at night for CAYLA. will need sleep study outpatient - echo 11/18/24 EF 45-50% - counseled on smoking cessation - PFTs 07/2023 showed no COPD but possible asthma/reactive airway disease. pt does not have albuterol inhaler at home - will check daily BMP and replete electrolytes - consult to cardiology. appreciate recommendations - cardiac diet - Lovenox - pantoprazole GI ppx - full code Progress note written by registered medical transcriptionist. The patient has been seen and examined. I personally obtained the miller and critical portions of the history andphysical exam. I reviewed the chart, the team's documentation, and discussed the patient care with the team. I agree with the team's medical decision makingand have edited the note to reflect my clinical findings and my assessment and plan. MD Mann Documented By: Jud Hutchison MD 01/07/25 1220 Signed By: <Electronically signed by Jud Hutchison MD> 01/07/25 1427 <Electronically signed by DO TRACIE Ivy> 01/07/25 1307 [facility] Work Phone: 1(729) 411-787706-05-2025 [place] [address] Hospitalist Progress Note Signed Patient: Morgan Latham MR#: [id number] : 1965 Acct:[id number] Age/Sex: 59 / M Adm Date: 5 Loc: Room: [address] [place] [address] Type: ADM IN Attending Dr: Jud Hutchison MD Copies to: ~ Date of Service: 01/07/2025 Subjective Subjective Narrative: Patient was seen and evaluated sitting on the side of the bed with family in theroom. No overnight events. Labs reviewed without significant abnormalities. Blood pressure rather elevated though he had some normal pressures overnight. He reports he is feeling better and is able to take deeper breaths than when he first came in. He also has been able to sleep better laying down. He also reports some improvement in sinus congestion. He denies any chest pain or pressure. Exam Physical Exam Vital Signs: Temp Pulse Resp BP Pulse Ox O2 Del Method O2 Flow Rate 98.4 F 81 20 162/101 H 100 Room Air 2 01/07/25 08:00 01/07/25 09:20 01/07/25 09:20 01/07/25 08:00 01/07/25 08:00 01/07/25 09:23 01/06/25 15:34 FiO2 30 01/07/25 04:29 Narrative: General: no acute distress, speaking in full sentences Skin: Warm, dry, no rash Head: Normocephalic, atraumatic Neck: Supple, trachea midline, no JVD Eye: Pupils are equal, round and reactive to light, extraocular movements are intact, normal conjunctiva Ears, nose, mouth and throat: oral mucosa moist Cardiovascular: Regular rate and rhythm, no murmur; trace edema Respiratory: lungs CTA b/l, no respiratory distress Gastrointestinal: Soft, nontender, non distended, normal bowel sounds MSK: 5 out of 5 muscle strength x 4 extremities, no calf pain, minimal edema Psychiatric: Cooperative, appropriate mood & affect Neurological: Alert and oriented to person, place, time, and situation, no focal neurological deficit observed Objective Lab Results 01/07/25 04:47 01/07/25 04:47 Microbiology Results Microbiology 01/06/25 10:13 Blood - Left Antecubital Blood Culture - Preliminary No Growth 1 Day 01/06/25 10:13 Blood - Right Antecubital Blood Culture - Preliminary No Growth 1 Day 01/06/25 12:02 Nasopharyngeal SARS-CoV-2, Influenza & RSV (PCR) - Final Meds Allergies and Active Meds Allergies No Known Allergies Allergy (Verified 11/18/24 16:55) Active Meds: Active Medications Generic Name Dose Route Start Last Admin Trade Name Freq PRN Reason Stop Dose Admin Acetaminophen 1,000 mg 01/06/25 20:25 01/07/25 08:52 Acetaminophen 500 Mg Tablet PO 01/06/26 20:24 1,000 mg Q6H PRN Administration Fever or Pain Albuterol/Ipratropium 3 ml 01/06/25 16:00 01/07/25 09:19 Ipratropium/Albuterol 0.5-3 Mg 3 Ml Ampul.Neb INHALATION 01/06/26 15:59 3 ml QID.RESP CARMEN Administration Amlodipine Besylate 5 mg 01/07/25 09:00 01/07/25 08:53 Amlodipine 5 Mg Tablet PO 01/07/26 08:59 5 mg DAILY CARMEN Administration Aspirin 81 mg 01/07/25 09:00 01/07/25 08:56 Aspirin 81 Mg Tablet. PO 01/07/26 08:59 81 mg QAM CARMEN Administration Atorvastatin Calcium 80 mg 01/07/25 09:00 01/07/25 08:56 Atorvastatin 80 Mg Tablet PO 01/07/26 08:59 80 mg QAM CARMEN Administration Budesonide/Formoterol Fumarate 2 puff 01/06/25 21:00 01/07/25 09:20 Budesonide/Formoterol 160-4.5 Mcg 60 Puff/6 Gm Hfa.Aer.Ad INHALATION 01/06/26 20:59 2 puff BID CARMEN Administration Clopidogrel Bisulfate 75 mg 01/07/25 09:00 01/07/25 08:52 Clopidogrel Bisulfate 75 Mg Tablet PO 01/07/26 08:59 75 mg QAM CARMEN Administration Duloxetine HCl 60 mg 01/07/25 09:00 01/07/25 08:55 Duloxetine 60 Mg Capsule. PO 01/07/26 08:59 60 mg QAM CARMEN Administration Furosemide 40 mg 01/06/25 16:00 01/07/25 08:53 Furosemide 40 Mg/4 Ml Vial IV-PUSH 01/06/26 15:59 40 mg BID@0800,1600 CARMEN Administration Guaifenesin 600 mg 01/06/25 14:46 01/07/25 08:53 Guaifenesin 600 Mg Tab.Er.12h PO 01/06/26 14:45 600 mg BID PRN Administration Congestion Heparin Sodium (Porcine) 5,000 unit 01/06/25 21:00 01/07/25 08:52 Heparin 5,000 Unit/Ml Vial SUBCUT 01/06/26 20:59 5,000 unit Q12HR CARMEN Administration Hydralazine HCl 5 mg 01/06/25 16:22 Hydralazine 20 Mg/Ml Vial IV-PUSH 01/06/26 16:21 Q6H PRN if SBP > 185 Lamotrigine 50 mg 01/06/25 22:00 01/06/25 21:38 Lamotrigine 25 Mg Tablet PO 01/06/26 21:59 50 mg QHS CARMEN Administration Metoprolol Succinate 100 mg 01/06/25 16:00 01/07/25 08:56 Metoprolol Succinate 100 Mg Tab.Er.24h PO 01/06/26 15:59 100 mg QAM CARMEN Administration Multivitamins 1 tab 01/07/25 09:00 01/07/25 08:54 Multivitamin 1 Tab Tablet PO 01/07/26 08:59 1 tab QAM CARMEN Administration Oxycodone HCl 10 mg 01/06/25 20:24 01/07/25 06:32 Oxycodone Ir 5 Mg Tablet PO 10 mg Q6H PRN Administration Pain Scale 6 - 10 Pantoprazole Sodium 40 mg 01/07/25 09:00 01/07/25 08:54 Pantoprazole 40 Mg Tablet. PO 01/07/26 08:59 40 mg BID CARMEN Administration Prednisone 40 mg 01/07/25 09:00 01/07/25 08:55 Prednisone 20 Mg Tablet PO 01/07/26 08:59 40 mg DAILY CARMEN Administration Sacubitril/Valsartan 1 tab 01/06/25 16:00 01/07/25 08:54 Sacubitril/Valsartan 49-51mg 1 Tab Tablet PO 01/06/26 15:59 1 tab BID CARMEN Administration Sodium Chloride 0 ml 01/06/25 09:32 01/06/25 11:01 Sodium Chloride 0.9 % 10 Ml Syringe IV-PUSH 01/06/26 09:31 10 ml PRN PRN Administration Flush Sodium Chloride 9 ml 01/06/25 11:45 Sodium Chloride 0.9 % 10 Ml Vial.Pf INJECTION 01/06/26 11:44 PRN PRN To Dilute the Naloxone 0.4 mg/mL vial to 10 mL Spironolactone 25 mg 01/07/25 09:00 01/07/25 08:56 Spironolactone 25 Mg Tablet PO 01/07/26 08:59 25 mg QAM CRAMEN Administration Triamcinolone Acetonide 1 applic 01/06/25 14:46 Triamcinolone 0.5% Cream 15 Gm Tube TOPICAL 01/06/26 14:45 DAILY PRN rash A&P - Hospitalist Assessment/Plan (1) CHF (congestive heart failure): (2) Apnea, sleep: (3) Acute exacerbation of chronic obstructive airways disease: Plan - continue Lasix 40mg IV BID. Pt is down nearly 3L since arrival. - continue home spironolactone, Entresto, metoprolol - continue DuoNebs QID - will stop oral prednisone - CPAP at night for CAYLA. will need sleep study outpatient - echo 11/18/24 EF 45-50% - counseled on smoking cessation - PFTs 07/2023 showed no COPD but possible asthma/reactive airway disease. pt does not have albuterol inhaler at home - will check daily BMP and replete electrolytes - consult to cardiology. appreciate recommendations - cardiac diet - Lovenox - pantoprazole GI ppx - full code Progress note written by registered medical transcriptionist. The patient has been seen and examined. I personally obtained the miller and critical portions of the history andphysical exam. I reviewed the chart, the team's documentation, and discussed the patient care with the team. I agree with the team's medical decision makingand have edited the note to reflect my clinical findings and my assessment and plan. MD Mann Documented By: Jud Hutchison MD 01/07/25 1220 Signed By: 01/07/25 1924 01/07/25 1306 [facility]06-04-2025 Evaluation note* Diagnosis Onset Date Resolution Status Admit Date Acute exacerbation of chroni c obstructive airways disease resolved January 06, 2025 11:38am Apnea, sleep resolved January 06 11:38am Congestive heart failure (CHF) resol bhavna January 06, 2025 11:38am History of heart bypass surgery reso lved January 06, 2025 11:38am Ischemic cardiomyopathy resolved J 2024 11:38am [facility] Work Phone: 1([phone]) 982-372706-04-2025 Radiology Diagnostic study [facility] [place] [address] [place] [address] CT Scan Report Signed Patient: Morgan Latham MR#: [id number] : 1965 Acct:[id number] Age/Sex: 59 / M ADM Date: 5 Loc: ER Room: Type: [facility] ER Attending Dr: Copies to: Do Sabi Billings MD~ Ordering Provider: Sabi Choudhury MD Date of Service: 01/06/25 CT/CT head/brain wo con: Altered mentation CT BRAIN WITHOUT CONTRAST: CLINICAL HISTORY: Altered mental status COMPARISON: None TECHNIQUE: Contiguous axial unenhanced images were obtained through the brain. This CT exam was performed using one or more following dose reduction techniques: Automated exposure control, adjustmentof the mA and/or kV accordingto patient size, or use of iterative reconstruction technique. FINDINGS: There is no evidence of midline shift, intra or extra-axial fluid collection, hemorrhage or CT evidence of acute large vascular distribution stroke Right-sided enucleation and prosthesis noted.. Moderate sinus disease. The surrounding soft tissues are normal. CT/CT head/brain wo con IMPRESSION: NO ACUTE INTRACRANIAL ABNORMALITY. Impression dictated by: Robinson Browning M.D. 01/06/2025 12:07 PM Dictation Location: [facility]- Transcribed By: [facility] 01/06/25 1207 Dictated By: Robinson Browning MD 01/06/25 1155 Signed By: 01/06/25 1205 [facility] Work Phone: [phone]) 842-964305-09-2025 Evaluation + Plan note* Assessment & Plan Note - BEATRICE Johnson - 12/11/2024 1:14 PM EDTAssociated Problem(s): BMI 31.0-31.9,adult Reviewed the merits of healthy lifestyle choices on overall cardiovascular health. [facility] Work Phone: 1([phone]) 268-719005-09-2025 Evaluation + Plan note* Assessment & Plan Note - BEATRICE Johnson - 12/11/2024 1:14 PM EDTAssociated Problem(s): Hyperlipemia High intensity statin Will be managed by hawa Britton for annual labs [facility] Work Phone: [phone] Evaluation + Plan note* Assessment & Plan Note - BEATRICE Johnson - 12/11/2024 1:14 PM EDTAssociated Problem(s): Cardiomyopathy, ischemic ICM HF improved EF 45-50% November 2024 TTE ( prior EF 35-40% Jul 18, 2023 TTE & EF 30-35% post-opOct 2022 TTE) FC II Stage C GDMT: Toprol XL Aldactone - off treatment unclear reasons Jardiance - stopped medication after shoulder surgery and was concerned causing nausea - agrees to rechallenge Entresto: Jul 02, 2023. Coverage approved November 2024: ADHF admit [facility] Work Phone: [phone]) 233-264605-09-2025 Miscellaneous Notes* Assessment & Plan Note - BEATRICE Johnson - 12/11/2024 1:14 PM EDTAssociated Problem(s): BMI 31.0-31.9,adult Reviewed the merits of healthy lifestyle choices on overall cardiovascular health. * Assessment & Plan Note - BEATRICE Johnson - 12/11/2024 1:14 PM EDT Associated Problem(s): Hyperlipemia High intensity statin Will be managed by hawa Britton for annual labs * Assessment & Plan Note - BEATRICE Johnson - 12/11/2024 1:14 PM EDT Associated Problem(s): Cardiomyopathy, ischemic ICM HF improved EF 45-50% November 2024 TTE ( prior EF 35-40% Jul 18, 2023 TTE & EF 30-35% post-opOct 2022 TTE) FC II Stage C GDMT: Toprol XL Aldactone - off treatment unclear reasons Jardiance - stopped medication after shoulder surgery and was concerned causing nausea - agrees to rechallenge Entresto: Jul 02, 2023. 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 He had chronic total occlusion of the mid LAD he was then transferred to [facility] : May 07, 2023 CABG ALVAREZ-LAD SVG-OM Current activity at 4 METS without concerning symptoms November 2024 TTE with moderate lateral and anterolateral hypokinesis. Recent admit adhf unclear etiology - will proceed with non invasive ischemic work up. * Assessment & Plan Note - BEATRICE Johnson - 12/11/2024 10:39 AM EDT Associated Problem(s): Current smoker 'working hard on quitting' Maybe 5 per day Continued every day tobacco use. Have reviewed the negative cardiovascular impact of nicotine. Continues to decline pharmacological assistance. documented in this [facility] Work Phone: [phone]) 688-114805-09-2025 Evaluation + Plan note* Assessment & Plan Note - BEATRICE Johnson - 12/11/2024 1:12 PM EDTAssociated Problem(s): HTN (hypertension) Optimal with medication compliance 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 He had chronic total occlusion of the mid LAD he was then transferred to [facility] : May 07, 2023 CABG ALVAREZ-LAD SVG-OM Current activity at 4 METS without concerning symptoms November 2024 TTE with moderate lateral and anterolateral hypokinesis. Recent admit adhf unclear etiology - will proceed with non invasive ischemic work up. [facility] Work Phone: [phone]) 344-539005-09-2025 Evaluation + Plan note* Assessment & Plan Note - BEATRICE Johnson - 12/11/2024 10:39 AM EDTAssociated Problem(s): Current smoker 'working hard on quitting' Maybe 5 per day Continued every day tobacco use. Have reviewed the negative cardiovascular impact of nicotine. Continues to decline pharmacological assistance. [facility] Work Phone: [phone]) 972-521605-09-2025 History of Present illness Narrative* BEATRICE Johnson - 12/11/2024 10:00 AM EDT Chief Complaint Just have not been feeling good these last couple days due to sinus infection Reason for Visit Patient presents to the office today for outpatient follow-up for hospital follow-up. Last evaluated in clinic by Dr. Quick August 2024. Presents today ambulatory with steady gait. November 2024: Patient was recently hospitalized at [facility]. The patient wasseen in Cardiology consult with subsequent cardiovascular management by [facility]. Hospitalization records have been reviewed. Reason for Cardiology Consultation: ADHF Consulting Human Resource Intern: Dr. Quick Cardiovascular testing: TTE EF 45-50% with moderate lat & antlat hypokinesis Changes to cardiovascular medical regimen at time of discharge: Lasix Discharge disposition: Home History of Present Illness Patient presents to the office where he initially reports feeling great after discharge but over the last couple days he has been treated for sinusitis and simply feels a little bit rundown. He reports that prior to admit he has started to put on a little water weight with significant dyspnea on exertion. He reports being diuresed greater than 12 pounds during recent hospitalization. Unable to clearly identify trigger for decompensation. In regards to Jardiance it was stopped before shoulder surgery and then when he resumed it it made him a little nauseated so he has not been taking, he does agree to rechallenge otherwise we will consider Farxiga. Discussed recent improvement in LVEF 45-50% but due to lateral and anterior lateral hypokinesis we will proceed with noninvasive ischemic evaluation. From an activity standpoint he is starting to do yard work, energy is a little decreased due to sinus infection. Denies orthopnea or PND. Ambulated in from the parking lot without concerns. Prior to recent illness had been walking approximately 4 miles on a daily basis. With addition of Lasix has no evidence of effective arterial volume depletion. Patient reports that overall has no complaint(s) of chest pain, chest pressure/discomfort, claudication, dyspnea, exertional chest pressure/discomfort, fatigue, irregular heart beat, and lower extremity edema Daily activity: > 4 METs Denies any change in exercise capacity or functional tolerance since last office visit. The importance of secondary prevention reviewed: HTN: Optimal HLD: Due for labs DM: Denies Smoker: Is trying to quit BMI: Reviewed the merits of healthy lifestyle choices on overall cardiovascular health. Review of Systems Cardiovascular: Negative for chest pain, dyspnea on exertion, irregular heartbeat, leg swelling, near-syncope, orthopnea, palpitations, paroxysmal nocturnal dyspnea and syncope. Visit Vitals BP 132/88 (BP Location: Left arm, Patient Position: Sitting) Pulse 76 Ht 1.702 m (5' 7 ) Wt 91.6 kg (202 lb) BMI 31.64 kg/m Smoking Status Some Days BSA 2.08 m Physical Exam Vitals and nursing note reviewed. Constitutional: Appearance: Normal appearance. Cardiovascular: Rate and Rhythm: Normal rate and regular rhythm. Heart sounds: Normal heart sounds. Pulmonary: Effort: Pulmonary effort is normal. Breath sounds: Examination of the right-lower field reveals wheezing. Wheezing present. Musculoskeletal: Cervical back: Full passive range of [...] Daily atorvastatin (LIPITOR) 80 mg, oral, Daily clopidogrel (PLAVIX) 75 mg, oral, Daily cyanocobalamin (VITAMIN B-12) 500 mcg, Daily DULoxetine (CYMBALTA) 60 mg, Daily empagliflozin (JARDIANCE) 10 mg, oral, Daily furosemide (LASIX) 20 mg, oral, Daily lamoTRIgine (LaMICtal) 25 mg tablet 2 tablets, Nightly metoprolol succinate XL (Toprol-XL) 100 mg 24 hr tablet TAKE ONE TABLET BY MOUTH ONCE DAILY -DO NOTCRUSH OR CHEW multivitamin with minerals tablet 1 tablet, oral, Daily nicotine 21-14-7 mg/24 hr patch, TD daily, sequential 1 each, miscellaneous, See admin instructions, Please provide to titration dose package. 21mg 6 weeks, 14mg 6 weeks and 7mg 6 weeks omeprazole (PRILOSEC) 40 mg, 2 times daily oxyCODONE (ROXICODONE) 5 mg, oral, Every 4 hours PRN sacubitriL-valsartan (Entresto) 49-51 mg tablet 1 tablet, oral, 2 times daily sodium chloride (Saline Mist) 0.65 % nasal spray 2 sprays, Each Nostril, 5 times daily triamcinolone (Kenalog) 0.5 % cream 3 times daily Assessment: Current smoker 'working hard on quitting' Maybe 5 per day Continued every day tobacco use. Have reviewed the negative cardiovascular impact of nicotine. Continues to decline pharmacological assistance. 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 He had chronic total occlusion of the mid LAD he was then transferred to [facility] : May 07, 2023 CABG ALVAREZ-LAD SVG-OM Current activity at 4 METS without concerning symptoms November 2024 TTE with moderate lateral and anterolateral hypokinesis. Recent admit adhf unclear etiology - will proceed with non invasive ischemic work up. HTN (hypertension) Optimal with medication compliance Cardiomyopathy, ischemic ICM HF improved EF 45-50% November 2024 TTE ( prior EF 35-40% Jul 18, 2023 TTE & EF 30-35% post-opOct 2022 TTE) FC II Stage C GDMT: Toprol XL Aldactone - off treatment unclear reasons Jardiance - stopped medication after shoulder surgery and was concerned causing nausea - agrees to rechallenge Entresto: Jul 02, 2023. Coverage approved November 2024: ADHF admit Hyperlipemia High intensity statin Will be managed by Dr. Quick, due for annual labs BMI 31.0-31.9,adult Reviewed the merits of healthy lifestyle choices on overall cardiovascular health. Plan: Through informed decision making process incorporating patients unique circumstances, the followingtreatment plan will be initiated: 1. Prescription drug management of cardiovascular medication for efficacy, adherence to treatment, side effect assessment and polypharmacy. Current treatment clinically warranted and to continue withfollowing modifications: - Resume Jardiance 10mg daily (let me know if you are not able to tolerate) 2. Lexiscan MPI (WMA, fatigue) no treadmill due to knee/hip pain 3. Labs (lipids/alt/chem6) 4. Return for follow-up; in the interim, contact the office if new symptoms arise. CAD ENGINEER as scheduled You need to stop smoking. Though it is not easy, more than half of all adults smokers have quit. Weencourage you to write down all the reasons you should quit smoking and set a quit date for yourself. Ask us how we can help. You may also call 5-078-SFQI-NOW for free resources and assistance. Odilia Ernandez MSN, 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, PMHNP-[facility] [place], [place] Please excuse any errors in grammar or translation related to this dictation. Voice recognition software was utilized to prepare this document. documented in this encounterSt[facility] Work Phone: [phone] Instructions* Patient Instructions* BEATRICE Johnson - 12/11/2024 10:00 AM EDT Please bring all medicines, vitamins, and [...] Current treatment clinically warranted and to continue withfollowing modifications: - Resume Jardiance 10mg daily (let me know if you are not able to tolerate) 2. Lexiscan MPI (WMA, fatigue) no treadmill due to knee/hip pain 3. Labs (lipids/alt/chem6) 4. Return for follow-up; in the interim, contact the office if new symptoms arise. CAD ENGINEER as scheduled You need to stop smoking. Though it is not easy, more than half of all adults smokers have quit. Weencourage you to write down all the reasons you should quit smoking and set a quit date for yourself. Ask us how we can help. You may also call 8-431-TNPB-NOW for free resources and assistance. documented in this encounterSt[facility] Work Phone: [phone]) 324-676905-07-2025 History of Present illness Narrative* Saul Gonzales MD - 12/09/2024 10:45 AM EDT Images from the original note were not included. Sinus & Skull Base Surgery Chief Complaint: 1. Chronic sinusitis s/p bilateral endoscopic sinus surgery 02/28/24 2. Distant history of significant midface trauma; right orbital prosthesis 3. Rhinorrhea 4. Nasal airway obstruction, deviated septum s/p septoplasty 02/28/24 5. Decreased sense of smell 6. Facial pain and pressure 7. Throat clearing, coughing 8. Epistaxis History Of Present Illness: Morgan Latham presents since last being seen 08/12/2024. Following that evaluation in August, he was prescribed Augmentin with improvement in his symptoms. He did okay until about November outside of some occasional bleeding that was not significant. Beginning in November, he started having elevated issues with nasal bleeding, crusting, and congestion. He feels that his sinuses do not want to drain. He is using saline rinses up to 6 times per day. He mentioned being admitted to the hospital about 2 weeks ago for a heart related issue and while there was given Mucinex with some benefit. He is on Plavix and aspirin 81 mg. He can have nasal bleeding about 3 times per week that can be difficult to control. Main Symptoms: Patient has anterior nasal drainage. Patient has posterior nasal drainage. Sometimes. Not as consistent as anterior drainage. Patient has nasal airway obstruction. Patient does not have facial pain. Patient has facial pressure. Patient has decreased sense of smell. Decreased 0 % of normal. Associated Symptoms: Patient has headaches. Not common. Patient has throat clearing. Patient has coughing. Patient has dysphonia. Patient has nasal bleeding. Left. Medications currently on for sinonasal symptoms: Saline rinses up to 6 times per day Mucinex PRN Active Problems: Problem List[1] Past Medical History: He has a past medical history of Anxiety, Arthritis, Depression, GERD (gastroesophageal reflux disease), HL (hearing loss), Hyperlipidemia, Hypertension, Joint pain, Myocardial infarction (Multi), Peripheral neuropathy, Sinusitis, and Vision loss. He has no past medical history of Type 2 diabetes mellitus. Surgical History: He has a past surgical history that includes Coronary artery bypass graft; Coronary stent placement; Shoulder arthroscopy (Bilateral); Shoulder surgery (Left); and Sinus surgery (N/A). Family History: Family History[2] Social History: He reports that he has been smoking cigarettes. He started smoking about 5 years ago. He has a 1 pack-year smoking history. He has never been exposed to tobacco smoke. He has never used smokeless tobacco. He reports that he does not currently use alcohol. He reports that he does not use drugs. Allergies: Patient has no known allergies. Current Meds: Current Medications[3] Vitals: Visit Vitals Ht 1.702 m (5' 7 ) Wt 92.5 kg (204 lb) BMI 31.95 kg/m Smoking Status Every Day BSA 2.09 m Physical Exam: Nose: On external exam there are neither lesions nor asymmetry of the nasal tip/dorsum. On anteriorrhinoscopy, visualization posteriorly is limited on anterior examination. For this reason, to adequately evaluate posteriorly for masses, source of epistaxis, polypoid disease, debridement, and/or signs of infections, nasal endoscopy is indicated. (Please see procedure below.) SINONASAL ENDOSCOPY WITH DEBRIDEMENT (CPT 93464-N) Due to the patient's chronic sinusitis/chronic rhinitis, sinonasal endoscopy with debridement is indicated. After discussion of risks and benefits, and topical decongestion and anesthesia, an endoscope was used to perform nasal endoscopy with debridement. A timeout identifying the patient, the procedure, and any concerns was performed prior to beginning the procedure. Findings: Examination of the left nasal cavity revealed mucoid and fibrinous debris. This was evacuated throughout the length of the nasal cavity and into the left maxillary sinus and ethmoid cavity with a combination of alligator and suction. The underlying mucosa was irritated but there were no concerning lesions. There was mucopurulence within the left maxillary sinus that was cultured. He wasalso draining mucopurulence from a previously created inferior meatal antrostomy. Examination of the right nasal cavity revealed a patent and normal-appearing maxillary sinus. The ethmoid cavity was also patent. Middle meatus and sphenoethmoid recess were normal without pus or polyps. Complications: None Estimated blood loss: <1 cc Provider Impressions: 1. Chronic sinusitis s/p bilateral endoscopic sinus surgery 02/28/24 2. Distant history of significant midface trauma; right orbital prosthesis 3. Rhinorrhea 4. Nasal airway obstruction, deviated septum s/p septoplasty 02/28/24 5. Decreased sense of smell 6. Facial pressure, headaches 7. Throat clearing, coughing, dysphonia 8. Epistaxis, rhinitis, crusting 9. Anticoagulated on Plavix and aspirin (cardiac indication) Discussion: Morgan Latham and I discussed his exam and symptoms. I recommended a 2-week course of Augmentin and this was prescribed today. This has provided significant benefit in the past and I recommended discontinuation for any side effects. I also believe that we should be more proactive as he continues to get recurrent exacerbations. I recommended utilization of mometasone within rinses once or twice per day moving forward and this wasprescribed. I also recommended the addition of Stu & Stu baby shampoo to his rinses starting with 5 drops and increasing as tolerated to minimize crusting. If he utilizes these therapies and his symptoms improve, I recommended follow-up in 12 months. If he continues with symptoms I am happy to provide him with a topical antibiotic based on the recently obtained culture. All questions were answered. Scribe Attestation By signing my name below, I, Duy Haro, Everettibe, attest that this documentation has been prepared under the direction and in the presence of Saul Gonzales MD. 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 Chronic bilateral low back pain without sciatica Chronic hip pain, bilateral Chronic pain of both shoulders Chronic maxillary sinusitis Disorder of right rotator cuff Lumbar radicular pain HTN (hypertension) GERD (gastroesophageal reflux disease) Secondary osteoarthritis of multiple sites Rotator cuff arthropathy, left Raynaud's phenomenon without gangrene Chronic ethmoidal sinusitis Decreased sense of smell Cardiomyopathy, ischemic Hyperlipemia BMI 31.0-31.9,adult Shortness of breath Current smoker Congestive heart failure, NYHA class 2 and ACC/AHA stage C Edema of left upper arm Volume overload Fatigue History of PTCA [2] Family History Problem Relation Name Age of Onset Heart attack Mother Rheum arthritis Mother Rheum arthritis Brother [3] Current Outpatient Medications: aspirin 81 mg EC tablet, TAKE 1 TABLET (81 MG) BY MOUTH ONCE DAILY., Disp: 90 tablet, Rfl: 3 atorvastatin (Lipitor) 80 mg tablet, TAKE ONE TABLET BY MOUTH DAILY, Disp: 90 tablet, Rfl: 3 clopidogrel (Plavix) 75 mg tablet, Take 1 tablet (75 mg) by mouth once daily., Disp: 90 tablet, Rfl: 3 cyanocobalamin (Vitamin B-12) 500 mcg tablet, Take 1 tablet (500 mcg) by mouth once daily., Disp: ,Rfl: DULoxetine (Cymbalta) [address] capsule, Take 1 capsule (60 mg) by mouth once daily., Disp: , Rfl: furosemide (Lasix) 20 mg tablet, Take 1 tablet (20 mg) by mouth once daily., Disp: 30 tablet, Rfl: 11 lamoTRIgine (LaMICtal) 25 mg tablet, Take 2 tablets (50 mg) by mouth once daily at bedtime., Disp: , Rfl: metoprolol succinate XL (Toprol-XL) 100 mg 24 hr tablet, TAKE ONE TABLET BY MOUTH ONCE DAILY -DO NOT CRUSH OR CHEW, Disp: 90 tablet, Rfl: 3 multivitamin with minerals tablet, Take 1 tablet by mouth once daily. Do not start before May 16, 2023., Disp: , Rfl: nicotine 21-14-7 mg/24 hr patch, TD daily, sequential, 1 each see administration instructions. Please provide to titration dose package. 21mg 6 weeks, 14mg 6 weeks and 7mg 6 weeks, Disp: 1 kit, Rfl: 0 omeprazole (PriLOSEC) [address] capsule, Take 1 capsule (40 mg) by mouth twice a day., Disp: , Rfl: oxyCODONE (Roxicodone) 5 mg immediate release tablet, Take 1 tablet (5 mg) by mouth every 4 hours if needed for severe pain (7 - 10)., Disp: 25 tablet, Rfl: 0 sacubitriL-valsartan (Entresto) 49-51 mg tablet, Take 1 tablet by mouth 2 times a day., Disp: 180 tablet, Rfl: 3 sodium chloride (Saline Mist) 0.65 % nasal spray, Administer 2 sprays into each nostril 5 times a day., Disp: 30 mL, Rfl: 12 triamcinolone (Kenalog) 0.5 % cream, Apply topically 3 times a day., Disp: , Rfl: documented in this [facility] Work Phone: [phone]) 448-341904-24-2025 History of Present illness Narrative* Juve Mcpherson MD - 11/26/2024 12:19 PM EDTAssociated Problem(s): Pulmonary nodules Nodules noted on CT in 2022 and due for repeat. * Juve Mcpherson MD - 11/26/2024 12:19 PM EDTAssociated Problem(s): Chronic HFrEF (heart failure with reduced ejection fraction) (CMS/HCC) Doing well and continue medication. Follow with cardiology. * Juve Mcpherson MD - 11/26/2024 12:18 PM EDTAssociated Problem(s): Benign essential hypertension (CMS/HCC) BP controlled and monitor PRN. * Juve Mcpherson MD - 11/26/2024 11:45 AM EDT Images from the original note were not included. Subjective Patient ID: Shaheed Latham is a 59 y.o. male who presents for Follow-up ([facility] [place] Hospital follow up from 11/18-11/20 for CHF exacerbation. C/o SOB for several weeks and worsened. Increased swelling in hands and feet. Hard to walk more than a few steps due to swelling and to ER. BNPelevated and admitted for CHF. Started IV lasix and took off 12 pounds. Echo showed EF 45%. Changedatenolol to metoprolol. Increased lasix and discharged. Doing well since home. Mild SOB with exertion but no cough. No edema. Checking BP PRN and typically controlled. BP normal today. Taking medication daily and tolerating without side effects. Noted CT in MyChart that showed lung nodules but never had follow up imaging. Review of Systems Constitutional: Negative for fatigue. Respiratory: Negative for cough, shortness of breath and wheezing. Cardiovascular: Negative for chest pain and palpitations. Gastrointestinal: Negative for abdominal pain, diarrhea, nausea and vomiting. Genitourinary: Negative for dysuria. Objective Physical Exam Constitutional: General: He is not in acute distress. Appearance: Normal appearance. HENT: Head: Normocephalic. Right Ear: Tympanic membrane and ear canal normal. Left Ear: Tympanic membrane and ear canal normal. Eyes: Extraocular Movements: Extraocular movements intact. Pupils: Pupils are equal, round, and reactive to light. Cardiovascular: Rate and Rhythm: Normal rate and regular rhythm. Heart sounds: No murmur heard. No friction rub. No gallop. Pulmonary: Breath sounds: Normal breath sounds. No wheezing, rhonchi or rales. Abdominal: General: Bowel sounds are normal. There is no distension. Palpations: Abdomen is soft. Tenderness: There is no abdominal tenderness. There is no guarding or rebound. Musculoskeletal: Left lower leg: No edema. Neurological: Mental Status: He is alert. Assessment/Plan Problem List Items Addressed This Visit Benign essential hypertension (CMS/HCC) BP controlled and monitor PRN. Chronic HFrEF (heart failure with reduced ejection fraction) (CMS/HCC) - Primary Doing well and continue medication. Follow with cardiology. Pulmonary nodules Nodules noted on CT in 2022 and due for repeat. Relevant Orders CT chest w IV contrast documented in this encounterMoberly [facility] [id number] [place] [address] Discharge Summary Signed Patient: Morgan Latham MR#: [id number] : 1965 Acct:[id number] Age/Sex: 59 / M Adm Date: 5 Loc: Room: [address] [place] [address]: Kermit Iraheta MD Copies to: MD Kermit Molina MD~ Providers Date of Admission: 11/18/24 Date of Discharge: 11/20/24 Discharging Provider: Kermit Iraheta Primary Care Provider: Juve Mcpherson Consults: 11/18/24 21:00 Consult to Cardiology Routine Comment: Consulting Provider: [facility], [facility] Reason For Exam: CHF exacerbation Has Provider Been Notified: Yes Date of Notification: 11/19/24 Time of Notification: 03:13 Discharge Diagnosis (1) Congestive heart failure (CHF): (2) Tobacco abuse: (3) Left ventricular aneurysm: (4) Ischemic cardiomyopathy: (5) History of heart bypass surgery: Final Diagnosis Final Discharge Diagnosis: Acute CHF exacerbation Summary Hospital Course Hospital course: Morgan Latham is a 59 yo male with a PMH of CAD with stents and bypass 04/2023, ischemic cardiomyopathy, HTN, and HLD who presented to [facility] ER on 11/18/24 for SOB x5 days, found to have BNP elevation to 2200 and admitted for CHF exacerbation. He was diuresed with IV lasix with improvement in symptoms. His atenolol was changed to metoprolol succinate and his lasix PO dose was increasedto 40 mgdaily. He was discharged on 11/20/24 in improved condition. Condition Condition at Discharge: Stable Time Spent with Patient Time spent providing/coordinating discharge services (# min): 30 Discharge Plan Discharge Plan Patient Disposition: Home Activity: No Activity Restriction Diet: Low-Sodium Instructions: Furosemide, Guaifenesin, Heart failure in adults - Discharge instructions, Know your Meds Prescriptions: New furosemide [Lasix] 40 mg tablet 40 mg PO DAILY 30 Days Qty: 30 2RF guaifenesin 600 mg Tablet Extended Release 12hr 600 mg PO BID PRN (Reason: Congestion) 14 Days Qty: 28 0RF Continued omeprazole 40 mg capsule,delayed release(DR/EC) 40 mg PO QAM Patient Comments: TAKE 1 CAPSULE BY MOUTH TWICE A DAY cyanocobalamin (vitamin B-12) [Vitamin B-12] 500 mcg Tablet 500 mcg PO QAM duloxetine 60 mg capsule,delayed release(DR/EC) 60 mg PO QAM triamcinolone acetonide 0.5 % cream 1 applic TOPICAL DAILY PRN (Reason: rash) multivitamin Tablet 1 tab PO QAM lamotrigine 25 mg tablet 50 mg PO QHS spironolactone 25 mg tablet 25 mg PO QAM Entresto 49-51 mg tablet 1 tab PO BID atorvastatin 80 mg tablet 80 mg PO QAM clopidogrel 75 mg tablet 75 mg PO QAM aspirin 81 mg tablet,delayed release (DR/EC) 81 mg PO QAM metoprolol succinate 100 mg tablet extended release 24 hr 100 mg PO QAM Discontinued oxycodone-acetaminophen 10-325 mg tablet 1 tab PO Q4HR PRN (Reason: Pain) atenolol 50 mg tablet 50 mg PO QAM Patient Comments: TAKE 1 TABLET BY MOUTH EVERY DAY furosemide 20 mg tablet 20 mg PO QAM Follow Up: uJve Mcpherson MD [Primary Care Provider] - 11/26/24 11:45 am (You have been scheduled for a follow up appointment for the following date and time, please call to reschedule if needed. ) Odilia Ernandez APRN [Nurse Practitioner] - 12/11/24 10:00 am Exam Physical Exam Vital Signs: Temp Pulse Resp BP Pulse Ox O2 Del Method 98.8 F 72 16 119/74 99 Room Air 11/20/24 11:11/20/24 11:23 11/20/24 11:11/20/24 11:11/20/24 11:11/20/24 11:43 Narrative: General: cooperative and comfortable Orientation: alert, awake and oriented x3 Head: normal to inspection Neck: normal visual inspection Cardio: no JVD, regular rate, regular rhythm Chest palpation & inspection: normal inspection of the chest Resp Effort & Inspection: normal respiratory effort, faint crackles Abd: soft, non-tender, non-distended Extremities: Warm well perfused, no edema Diagnostic Studies Completed and Pending Studies Pending studies at discharge: 11/18/24 19:20 Blood Culture Stat 11/21/24 05:00 Complete Blood Count Auto Diff IN AM Comprehensive Metabolic Panel [CHEM] IN AM Magnesium [CHEM] IN AM 11/22/24 05:00 Complete Blood Count Auto Diff IN AM Comprehensive Metabolic Panel [CHEM] IN AM Magnesium [CHEM] IN AM 11/23/24 05:00 Complete Blood Count Auto Diff IN AM Comprehensive Metabolic Panel [CHEM] IN AM Magnesium [CHEM] IN AM Preliminary micro results at discharge 11/18/24 19:20 Blood Culture - Preliminary Blood - Left Hand No Growth 1 Day 11/18/24 19:25 Blood Culture - Preliminary Blood - Right Antecubital No Growth 1 Day Labs on day of discharge: 11/20/24 07:03: Corrected WBC 3.3 L, Uncorrected WBC Count 3.3 L, RBC 3.85 L, Hgb 11.6 L, Hct 34.8 L, MCV 90.3, MCH 30.1, MCHC 33.4, RDW 16.6 H, Plt Count 284, MPV 8.0, Neut % (Auto) N/A, Lymph % (Auto) N/A, Harris % (Auto) N/A, Eos % (Auto) N/A, Baso % (Auto) N/A, Nucleat RBC Rel Count N/A, Neut # (Auto) N/A, Lymph # (Auto) N/A, Harris # (Auto) N/A, Eos # (Auto) N/A, Baso # (Auto) N/A, Lymphocytes %47 H, Monocytes % 9, Eosinophils % 2, Basophils % 1, Segmented Neutrophils 37 L, Nucleated RBCs/100WBC 1 H, Reactive Lymphocytes 5, Platelet Estimate Normal, Giant Platelets 1, Plt Morphology Comment Normal, RBC Morphology N/A, Poikilocytosis Slight, Anisocytosis Slight, Microcytosis Slight, Ovalocytes Slight, PHA Creatinine Clear 66.55, Sodium 140, Potassium 3.8, Chloride 103, Carbon Dioxide 29.3, Anion Gap 11.5, BUN 19, Creatinine 1.28, Est GFR (CKD-EPI) > 60.0, Glucose 106 H, Calcium 9.4, Magnesium 2.0, Total Bilirubin 0.3, AST 12 L, ALT 8, Alkaline Phosphatase 70, Total Protein 6.9, Albumin 4.0, Globulin 2.9, Albumin/Globulin Ratio 1.4 Documented By: Kermit Iraheta MD 11/20/24 1213 Signed By: 11/22/24 193 [facility]04-18-2025 [place] [address] Cardiology Progress Note Signed Patient: Morgan Latham MR#: [id number] : 1965 Acct:[id number] Age/Sex: 59 / M Adm Date: 5 Loc: Room: [address] [place] [address] Type: ADM IN Attending Dr: Kermit Iraheta MD Copies to: ~ Date of Service: 11/20/2024 Subjective Principal diagnosis: Acute on chronic HFrEF, ischemic cardiomyopathy Interval history: Mr. Latham is a 59 year old male seen in cardiology consultation at request of hospitalist and patient who presents with 5-day history of worsening shortness of breath and edema. He finally came to the hospital earlier today, troponins are negative however BNP is elevated over 1999, chest x-ray with mild bibasilar parenchymal edema and cardiomegaly. He has known history of ischemic heart disease, prior anteroapical DE (old), andsubsequent non-STEMI in April 2023, catheterization at that time revealed chronic occlusion of the LAD, and subtotal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 mEq/L (6.0-15.0) 11/18/24 18:05 BUN 13 mg/dL (7-25) 11/18/24 18:05 Creatinine 1.30 mg/dL (0.70-1.30) 11/18/24 18:05 Est GFR (CKD-EPI) > 60.0 mL/Min 11/18/24 18:05 Glucose 103 mg/dL (70-100) H 11/18/24 18:05 Calcium 9.0 mg/dL (8.6-10.3) 11/18/24 18:05 Total Bilirubin 0.4 mg/dl (0.3-1.0) 11/18/24 18:05 AST 14 U/L (13-39) 11/18/24 18:05 ALT 9 U/L (7-52) 11/18/24 18:05 Alkaline Phosphatase 75 U/L (34-104) 11/18/24 18:05 Total Creatine Kinase 69 U/L (30-223) 11/18/24 18:05 Troponin I High Sens 14 ng/L (0-20) 11/18/24 18:05 B-Natriuretic Peptide 2215.0 pg/mL (5-100) H 11/18/24 18:05 Total Protein 6.8 gm/dL (6.4-8.9) 11/18/24 18:05 Albumin 3.9 gm/dL (3.5-5.7) 11/18/24 18:05 Globulin 2.9 gm/dL 11/18/24 18:05 Albumin/Globulin Ratio 1.3 11/18/24 18:05 SARS-CoV-2 Rap RNA(RT-PCR) Negative (Negative) 11/18/24 17:51 Microbiology Results Micro: Microbiology - Results from entire visit 11/18/24 17:51 Nasopharyngeal SARS-CoV-2, Influenza & RSV (PCR) - Final Assessment & Plan Assessment/Plan (1) Congestive heart failure (CHF): (2) Ischemic cardiomyopathy: Plan Mr. Latham is a 59yo male with a PMH of CAD with stents and bypass 04/2023, ischemic cardiomyopathy, HTN, and HLD who is admitted for CHF vs COPD exacerbation. Acute on chronic congestive heart failure and Acute COPD exacerbation (pt stateshe was never diagnosed with COPD, but is a smoker) Ischemic cardiomyopathy following STEMI in 2022 s/p PCI x3 and CABG Patient with SOB, bibasilar crackles, wheezes, and 1+ b/l pitting edema on exam. BNP 2215. Trop 14. - Lasix 20mg IV BID - continue home GDMT holding PO Lasix - starting Duoneb QID, Symbicort BID, prednisone 40mg QD, and doxycycline 100mg BID - Echo ordered - repeat troponin - f/u blood cultures - consult to cardiology for CHF Diet: heart healthy DVT PPX: heparin Code status: FULL CODE Addendum I participated with the resident in formulating the plan and in miller elements of history taking and in performing the physical exam. Patient presents today withabove complaints, on exam was found out to have wheezes which could be from either COPD or from CHF exacerbation and interstitial edema thatwas prevalent on his x-ray. Will consult cardiology obtain an echo as well as start him on IVdiuresis. I discussed the plan of plan with the patient. I also counseled on smoking cessation IP vs OBS Justification Based on differential dx, clinical care plan, and risk of adverse events, if untreated, in my clinical judgement this patient requires an acute care setting as: INPATIENT because of an expectation ofan over 2 midnight stay. Estimated length of stay (# of days): 3 Time Spent With Patient (min): 75 Documented By: Sabi Choudhury MD 11/18/242038 Signed By: 11/19/24 0312 11/18/242111 [facility]04-16-2025 Evaluation note* Diagnosis Onset Date Resolution Status Admit Date Congestive heart failure (CHF) acute November 18, 2024 7:36pm History of heart bypass surgery acut e November 18, 2024 7:36pm Ischemic cardiomyopathy acute A pril 2024 7:36pm Left ventricular aneurysm acute November 18, 2024 7:36pm Tobacco abuse acute November 18, 2024 7:36pm [facility] Work Phone: 1([phone] 165-188204-16-2025 Evaluation note* Diagnosis Onset Date Resolution Status Admit Date Congestive heart failure (CHF) acute November 18, 2024 7:36pm History of heart bypass surgery acut e November 18, 2024 7:36pm Ischemic cardiomyopathy acute A l 2024 7:36pm Left ventricular aneurysm acute November 18, 2024 7:36pm Tobacco abuse acute November 18, 2024 7:36pm Acute exacerbation of chroni c obstructive airways disease acute January 06, 2025 11:38am Apnea, sleep acute January 06 11:38am CHF (congestive heart failure) acute January 06, 2025 11:38am [facility] Work Phone: 1([phone]) 758-177604-16-2025 Evaluation note* Diagnosis Onset Date Resolution Status Admit Date Congestive heart failure (CHF) acute November 18, 2024 7:36pm History of heart bypass surgery acut e November 18, 2024 7:36pm Ischemic cardiomyopathy acute A pril 2024 7:36pm Left ventricular aneurysm acute November 18, 2024 7:36pm Tobacco abuse acute November 18, 2024 7:36pm Acute exacerbation of chroni c obstructive airways disease acute January 06, 2025 11:38am Apnea, sleep acute January 06 11:38am Congestive heart failure (CHF) acute January 06, 2025 11:38am History of heart bypass surgery acut e January 06, 2025 11:38am Ischemic cardiomyopathy acute [facility] 2024 11:38am [facility] Work Phone: 1([phone]) 105-338004-16-2025 Evaluation note* Diagnosis Onset Date Resolution Status Admit Date Left ventricular aneurysm acute November 18, 2024 7:36pm Tobacco abuse acute November 18, 2024 7:36pm Congestive heart failure (CHF) resol bhavna November 18, 2024 7:36pm History of heart bypass surgery reso lved November 18, 2024 7:36pm Ischemic cardiomyopathy resolved A pril 2024 7:36pm Acute exacerbation of chroni c obstructive airways disease resolved January 06, 2025 11:38am Apnea, sleep resolved January 06 11:38am Congestive heart failure (CHF) resol bhavna January 06, 2025 11:38am History of heart bypass surgery reso lved January 06, 2025 11:38am Ischemic cardiomyopathy resolved [facility] 2024 11:38am [facility] Work Phone: [phone] 872-930601-22-2025 History of Present illness Narrative* Alyssa Quick, DO - 08/26/2024 11:20 AM EST Subjective Morgan Latham is a 58 y.o. male Chief Complaint Follow-up 58-year-old gentleman returns for follow-up, he is doing well he denies any cardiovascular events, complaints or nitrate usage or hospitalizations. She just got over upper respiratory infection, and went through 2 separate surgeries including shoulder surgery and sinus surgery. He sustained anterior STEMI on May 03 2023, was transferred to [facility] and underwent two-vessel PCI of the diagonal branch of the ramus branch, discovered to have chronic occlusion of the LAD, underwent subsequent intra-aortic balloon pump placement. He had chronic total occlusionof the mid LAD he was then transferred to [facility] and underwent revascularization witha ALVAREZ to the LAD and vein graft to the OM branch with Dr. Chidi Pressley with an overall excellent result. His left ventricular function remains severely impaired by last echo at 30 to 35%. Current NYHA stage C with no evidence of active heart failure or major limitations at this time Unfortunately he is back to smoking and is asking for assistance with smoking cessation, we have took the opportunity for 10 minutes today to claims counsel him on smoking cessation and will reinitiate NicoDerm patches. He is off his Jardiance altogether following one of the surgeries mentioned above due to side effect of dizziness. There was no cost constraints. Will have him follow-up with nurse practitioner in 6 months, reconsider institution of Jardiance atthat time versus Farxiga, and I will see him again within the next year. We reviewed his most recent laboratories his renal function and liver function tests are in normal limits; will try to obtain a lipid panel as well. Review of Systems Cardiovascular: Positive for dyspnea on exertion. All other systems reviewed and are negative. Vitals: 08/26/24 1146 BP: 126/82 BP Location: Right arm Patient Position: Sitting Pulse: 68 Weight: 92.4 kg (203 lb 12.8 oz) Height: 1.702 m (5' 7 ) Objective Physical Exam Constitutional: Appearance: Normal appearance. HENT: Nose: Nose normal. Neck: Vascular: No carotid bruit. Cardiovascular: Rate and Rhythm: Normal rate. Pulses: Normal pulses. Heart sounds: Normal heart sounds. Pulmonary: Effort: Pulmonary effort is normal. Abdominal: General: Bowel sounds are normal. Palpations: Abdomen is soft. Musculoskeletal: General: Normal range of motion. Cervical back: Normal range of motion. Right lower leg: No edema. Left lower leg: No edema. Skin: General: Skin is warm and dry. Neurological: General: No focal deficit present. Mental Status: He is alert. Psychiatric: Mood and Affect: Mood normal. Behavior: Behavior normal. Thought Content: Thought content normal. Judgment: Judgment normal. Allergies Patient has no known allergies. Current Medications Current Outpatient Medications: aspirin 81 mg EC tablet, TAKE 1 TABLET (81 MG) BY MOUTH ONCE DAILY., Disp: 90 tablet, Rfl: 3 atorvastatin (Lipitor) 80 mg tablet, TAKE ONE TABLET BY MOUTH DAILY, Disp: 90 tablet, Rfl: 3 clopidogrel (Plavix) 75 mg tablet, Take 1 tablet (75 mg) by mouth once daily., Disp: 90 tablet, Rfl: 3 cyanocobalamin (Vitamin B-12) 500 mcg tablet, Take 1 tablet (500 mcg) by mouth once daily., Disp: ,Rfl: DULoxetine (Cymbalta) [address] capsule, Take 1 capsule (60 mg) by mouth once daily., Disp: , Rfl: furosemide (Lasix) 20 mg tablet, Take 1 tablet (20 mg) by mouth once daily., Disp: 30 tablet, Rfl: 11 lamoTRIgine (LaMICtal) 25 mg tablet, Take 2 tablets (50 mg) by mouth once daily at bedtime., Disp: , Rfl: metoprolol succinate XL (Toprol-XL) 100 mg 24 hr tablet, TAKE ONE TABLET BY MOUTH ONCE DAILY -DO NOT CRUSH OR CHEW, Disp: 90 tablet, Rfl: 3 multivitamin with minerals tablet, Take 1 tablet by mouth once daily. Do not start before May 16, 2023., Disp: , Rfl: omeprazole (PriLOSEC) [address] capsule, Take 1 capsule (40 mg) by mouth twice a day., Disp: , Rfl: oxyCODONE (Roxicodone) 5 mg immediate release tablet, Take 1 tablet (5 mg) by mouth every 4 hours if needed for severe pain (7 - 10)., Disp: 25 tablet, Rfl: 0 sacubitriL-valsartan (Entresto) 49-51 mg tablet, Take 1 tablet by mouth 2 times a day., Disp: 180 tablet, Rfl: 3 sodium chloride (Saline Mist) 0.65 % nasal spray, Administer 2 sprays into each nostril 5 times a day., Disp: 30 mL, Rfl: 12 triamcinolone (Kenalog) 0.5 % cream, Apply topically 3 times a day., Disp: , Rfl: Assessment/Plan 1. 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 Follow Up In Cardiology 2. History of PTCA 3. ST elevation myocardial infarction (STEMI), unspecified artery (Multi) 4. Congestive heart failure, NYHA class 2 and ACC/AHA stage C 5. Cardiomyopathy, ischemic 6. Primary hypertension 7. Mixed hyperlipidemia 8. BMI 31.0-31.9,adult 9. Current smoker Scribe Attestation By signing my name below, IJuanita LPN, Scribe attest that this documentation has been prepared under the direction and in the presence of Chandrika Quick DO. Provider Attestation - Scribe documentation All medical record entries made by the Scribe were at my direction and personally dictated by me. Ihave reviewed the chart and agree that the record accurately reflects my personal performance of the history, physical exam, discussion and plan. documented in this encounterSt[facility] Work Phone: 1([phone]) 306-402201-22-2025 Instructions* Patient Instructions* Juanita De La Torre LPN - 08/26/2024 11:20 AM EST Please bring all medicines, vitamins, and herbal supplements with you when you come to the office. Prescriptions will not be filled unless you are compliant with your follow up appointments or have a follow up appointment scheduled as per instruction of your physician. Refills should be requested at the time of your visit. BMI was above normal measurement. Current weight: 92.4 kg (203 lb 12.8 oz) Weight change since last visit (-) denotes wt loss -1.2 lbs Weight loss needed to achieve BMI 25: 44.5 Lbs Weight loss needed to achieve BMI 30: 12.7 Lbs Provided instructions on dietary changes Provided instructions on exercise. * Attachments The following attachments cannot be sent through Care Everywhere. * Heart Healthy Diet (Turkmen) documented in this encounterSt. [facility] Work Phone: [phone] History of Present illness Narrative* Saul Gonzales MD - 08/12/2024 2:45 PM EST Sinus & Skull Base Surgery Chief Complaint: 1. Chronic sinusitis s/p bilateral endoscopic sinus surgery 02/28/24 2. Distant history of significant midface trauma; right orbital prosthesis 3. Rhinorrhea 4. Nasal airway obstruction, deviated septum s/p septoplasty 02/28/24 5. Decreased sense of smell History Of Present Illness: Morgan Latham presents since last being seen 05/27/2024. During that evaluation, he was found to be infected and a culture was obtained. He was initially prescribed Augmentin but the culture demonstrated Pseudomonas so on June 15 he was treated with 10days of Levaquin. He did well but on New Year's Day he became ill again producing thick discolored debris. The debrisprogressed and he was having difficulty getting things to drain. The debris was so thick it almost felt like latex and he question whether or not this could be some kind of implant that was placed during the sinus surgery. The debris is worse on the left-hand side. He is using Q-tips to help mobilize this. He denies inhaling any unusual substances. He recently underwent shoulder surgery. Main Symptoms: Patient has anterior nasal drainage. Patient has posterior nasal drainage. Patient has nasal airway obstruction. Patient has facial pain. Patient has facial pressure. Patient has decreased sense of smell. Associated Symptoms: Patient does not have headaches. Patient has throat clearing. Mild Patient has coughing. Mild Patient has nasal bleeding. 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 Chronic bilateral low back pain without sciatica Chronic hip pain, bilateral Chronic pain of both shoulders Chronic maxillary sinusitis Disorder of right rotator cuff Lumbar radicular pain HTN (hypertension) GERD (gastroesophageal reflux disease) Secondary osteoarthritis of multiple sites Rotator cuff arthropathy, left Raynaud's phenomenon without gangrene Chronic ethmoidal sinusitis Decreased sense of smell Acute DE, anterior wall (Multi) Cardiomyopathy, ischemic Hyperlipemia BMI 31.0-31.9,adult Shortness of breath Former smoker Congestive heart failure, NYHA class 2 and ACC/AHA stage C Edema of left upper arm Volume overload Currently attempting to quit smoking Arteriosclerosis of arterial coronary artery bypass graft Fatigue Past Medical History: He has a past medical history of Anxiety, Arthritis, Depression, GERD (gastroesophageal reflux disease), HL (hearing loss), Hyperlipidemia, Hypertension, Joint pain, Myocardial infarction (Multi), Peripheral neuropathy, Sinusitis, and Vision loss. He has no past medical history of Type 2 diabetes mellitus. Surgical History: He has a past surgical history that includes Coronary artery bypass graft; Coronary stent placement; and Shoulder arthroscopy (Bilateral). Family History: Family History Problem Relation Name Age of Onset Heart attack Mother Rheum arthritis Mother Rheum arthritis Brother Social History: He reports that he has been smoking cigarettes. He started smoking about 5 years ago. He has a 1 pack-year smoking history. He has never been exposed to tobacco smoke. He has never used smokeless tobacco. He reports that he does not currently use alcohol. He reports that he does not use drugs. Allergies: Patient has no known allergies. Current Meds: Current Outpatient Medications: acetaminophen (Tylenol) 325 mg tablet, Take 2 tablets (650 mg) by mouth every 4 hours if needed formild pain (1 - 3) or moderate pain (4 - 6). (Patient not taking: Reported on 05/27/2024), Disp: , Rfl: amoxicillin-pot clavulanate (Augmentin) 875-125 mg tablet, Take 1 tablet (875 mg) by mouth 2 times a day for 14 days., Disp: 28 tablet, Rfl: 0 aspirin 81 mg EC tablet, TAKE 1 TABLET (81 MG) BY MOUTH ONCE DAILY., Disp: 90 tablet, Rfl: 3 atorvastatin (Lipitor) 80 mg tablet, TAKE ONE TABLET BY MOUTH DAILY, Disp: 90 tablet, Rfl: 3 cetirizine (ZyrTEC) 10 mg tablet, Take 1 tablet (10 mg) by mouth once daily as needed for allergies., Disp: , Rfl: clopidogrel (Plavix) 75 mg tablet, Take 1 tablet (75 mg) by mouth once daily., Disp: 90 tablet, Rfl: 3 DULoxetine (Cymbalta) [address] capsule, Take 1 capsule (30 mg) by mouth once daily., Disp: , Rfl: empagliflozin (Jardiance) 10 mg, Take 1 tablet (10 mg) by mouth once daily. (Patient not taking: Reported on 05/27/2024), Disp: 90 tablet, Rfl: 3 furosemide (Lasix) 20 mg tablet, Take 1 tablet (20 mg) by mouth once daily., Disp: 30 tablet, Rfl: 11 metoprolol succinate XL (Toprol-XL) 100 mg 24 hr tablet, Take 1 tablet (100 mg) by mouth once daily. Do not crush or chew., Disp: 90 tablet, Rfl: 3 multivitamin with minerals tablet, Take 1 tablet by mouth once daily. Do not start before May 16, 2023., Disp: , Rfl: nicotine (Nicoderm CQ) 14 mg/24 hr patch, Place 1 patch over 24 hours on the skin once every 24 hours., Disp: 30 patch, Rfl: 0 omeprazole (PriLOSEC) [address] capsule, Take 1 capsule (40 mg) by mouth twice a day., Disp: , Rfl: oxyCODONE (Roxicodone) 5 mg immediate release tablet, Take 1 tablet (5 mg) by mouth every 4 hours if needed for severe pain (7 - 10)., Disp: 25 tablet, Rfl: 0 sacubitriL-valsartan (Entresto) 49-51 mg tablet, Take 1 tablet by mouth 2 times a day., Disp: 180 tablet, Rfl: 3 sodium chloride (Saline Mist) 0.65 % nasal spray, Administer 2 sprays into each nostril 5 times a day., Disp: 30 mL, Rfl: 12 spironolactone (Aldactone) 25 mg tablet, Take 1 tablet (25 mg) by mouth once daily., Disp: 30 tablet, Rfl: 11 Vitals: Visit Vitals Ht 1.702 m (5' 7 ) Wt 93 kg (205 lb) BMI 32.11 kg/m Smoking Status Every Day BSA 2.1 m Physical Exam: Nose: On external exam there are neither lesions nor asymmetry of the nasal tip/dorsum. On anteriorrhinoscopy, visualization posteriorly is limited on anterior examination. For this reason, to adequately evaluate posteriorly for masses, source of epistaxis, polypoid disease, debridement, and/or signs of infections, nasal endoscopy is indicated. (Please see procedure below.) SINONASAL ENDOSCOPY WITH DEBRIDEMENT (CPT 32342-P): Due to the patient's chronic sinusitis/chronic rhinitis, sinonasal endoscopy with debridement is indicated. After discussion of risks and benefits, and topical decongestion and anesthesia, an endoscope was used to perform nasal endoscopy with debridement. A timeout identifying the patient, the procedure, and any concerns was performed prior to beginning the procedure. Findings: Examination of the right nasal cavity revealed mucopurulence within the maxillary sinus that was evacuated. Sphenoethmoid recess was normal without pus or polyps. Examination of the left nasal cavity revealed dried debris and crust throughout the nasal cavity extending into the inferior and middle meatus. This was removed with a combination of alligator and suction. There was also fibrinous debris at the periphery of the nasal cavity that was removed with an alligator. I obtained a culture of the mucopurulence. At the conclusion of the debridement each maxillary and ethmoid cavity were patent. He tolerated the procedure well. Complications: None Estimated blood loss: Less than 1 ml Provider Impressions: 1. Chronic sinusitis s/p bilateral endoscopic sinus surgery 02/28/24 2. Distant history of significant midface trauma; right orbital prosthesis 3. Rhinorrhea 4. Nasal airway obstruction, deviated septum s/p septoplasty 02/28/24 5. Decreased sense of smell 6. Facial pain and pressure 7. Throat clearing, coughing 8. Epistaxis Discussion: Morgan Latham again had evidence of infection today. The left nasal cavity was particularly irritated in addition to crusting and debris there was also some fibrinous debris within it that I was able to clear out. He has not recently inhaled any foreign substances and is rinsing his nose routinely and I ask him to continue the rinses. I obtained another culture and I will prescribe Augmentin in the short-term pending the result of the culture. We discussed the rationale for this rather than starting with ciprofloxacin or Levaquin. I suggested manipulating the inside of his nose as little as possible as he has been using Q-tips to try to remove the debris and I question whether or not he is causing some measure of trauma by doing this. If his symptoms persist in the short-term despite the Augmentin I [facility] and this could certainly include additional oral antibiotic therapy orconsideration of a topical antibiotic or steroid. I recommended that he discontinue the antibiotic for any side effects. If he does well for a prolonged period of time and develops another exacerbation I asked him to reach out to my office and am happy to prescribe him an antibiotic over the telephone and if his symptoms persist I would ask him to return to clinic for a culture. He was amenable to this and all questions were answered. Scribe Attestation By signing my name below, I, Damaris Servin, attest that this documentation has been prepared under the direction and in the presence of Saul Gonzales MD. Signature: Saul Gonzales MD documented in this [facility] Work Phone: [phone]) 408-452212-05-2024 Evaluation note* Diagnosis Onset Date Resolution Status Admit Date Arthritis of left glenohumer al joint acute July 09 9:26am Pre-op exam acute July 09, 2024 9:26am Tear of left supraspinatus tendon acute July 09 9:26am Status post reverse total arthroplasty of left shoulder acute De cember 2023 10:45am Status post reverse total arthroplasty of left shoulder acute Panchito noel 2024 9:04am [facility] Work Phone: 1(551) 163-522612-03-2024 History of Present illness Narrative* Juve Mcpherson MD - 07/07/2024 11:10 AM ESTAssociated Problem(s): Primary osteoarthritis of left shoulder Increased pain and follow with ortho. * Juve Mcpherson MD - 07/07/2024 11:10 AM ESTAssociated Problem(s): Preoperative clearance Able to proceed with upcoming surgery at low to intermediate risk for complications. History of HTNand CAD but typically controlled with medication. No DM. Previously cleared by cardiology. Recent general anesthesia in February for sinus surgery and no complications. Recommend routine PAT. * Juve Mcpherson MD - 07/07/2024 11:08 AM ESTAssociated Problem(s): Coronary artery disease (CMS/HCC) No pain and monitor. Follow with cardiology. * Juve Mcpherson MD - 07/07/2024 11:08 AM ESTAssociated Problem(s): Benign essential hypertension (CMS/HCC) BP elevated but previously controlled and monitor PRN. * Juve Mcpherson MD - 07/07/2024 11:08 AM ESTAssociated Problem(s): Dyshidrotic eczema Start steroid cream * Juve Mcpherson MD - 07/07/2024 10:30 AM EST Images from the original note were not included. Subjective Patient ID: Shaheed Latham is a 58 y.o. male who presents for Follow-up (Surgical clearance left shoulder). Presents for presurgical evaluation. Overall feels well today. Scheduled for left shoulder replacement 07/15. Decreased ROM and pain for years. Very difficult to use left arm due to symptoms. Scheduled for PAT 07/09. Checking BP PRN and typically controlled. BP elevated today but c/o increased pain.Taking medication daily and tolerating without side effects. No chest pain or SOB. Follows with cardiology for CAD. C/o rash on hands for several weeks. Skin dry and cracked. Recently washing hands alot. Review of Systems Constitutional: Negative for fatigue. Respiratory: Negative for cough, shortness of breath and wheezing. Cardiovascular: Negative for chest pain and palpitations. Gastrointestinal: Negative for abdominal pain, diarrhea, nausea and vomiting. Genitourinary: Negative for dysuria. Objective Physical Exam Constitutional: General: He is not in acute distress. Appearance: Normal appearance. HENT: Head: Normocephalic. Right Ear: Tympanic membrane and ear canal normal. Left Ear: Tympanic membrane and ear canal normal. Eyes: Extraocular Movements: Extraocular movements intact. Pupils: Pupils are equal, round, and reactive to light. Cardiovascular: Rate and Rhythm: Normal rate and regular rhythm. Heart sounds: No murmur heard. No friction rub. No gallop. Pulmonary: Breath sounds: Normal breath sounds. No wheezing, rhonchi or rales. Abdominal: General: Bowel sounds are normal. There is no distension. Palpations: Abdomen is soft. Tenderness: There is no abdominal tenderness. There is no guarding or rebound. Musculoskeletal: Left lower leg: No edema. Neurological: Mental Status: He is alert. Assessment/Plan Problem List Items Addressed This Visit Benign essential hypertension (CMS/HCC) BP elevated but previously controlled and monitor PRN. Coronary artery disease (CMS/HCC) No pain and monitor. Follow with cardiology. Primary osteoarthritis of left shoulder Increased pain and follow with ortho. Preoperative clearance - Primary Able to proceed with upcoming surgery at low to intermediate risk for complications. History of HTNand CAD but typically controlled with medication. No DM. Previously cleared by cardiology. Recent general anesthesia in February for sinus surgery and no complications. Recommend routine PAT. Dyshidrotic eczema Start steroid cream Relevant Medications triamcinolone (Kenalog) 0.5 % cream documented in this encounterM[facility] [id number] History of Present illness Narrative* Saul Gonzales MD - 05/27/2024 2:45 PM EDT Sinus & Skull Base Surgery Chief Complaint: 1. Chronic sinusitis s/p bilateral endoscopic sinus surgery 02/28/24 2. Distant history of significant midface trauma; right orbital prosthesis 3. Rhinorrhea 4. Nasal airway obstruction, deviated septum s/p septoplasty 02/28/24 5. Facial pressure 6. Decreased sense of smell History Of Present Illness: Morgan Latham presents since last being seen March 14, 2024. He had been doing very well but he feels that he developed a sinus infection and has had recurrenceof left-sided nasal airway obstruction. His symptoms began with production of crusting from the left-hand side starting around May 24. He used a Q-tip to remove a large crust initially and then had another crust yesterday. He is putting saline into a syringe and then injecting it into his nasalcavities. Main Symptoms: Patient has anterior nasal drainage. Patient has posterior nasal drainage. Patient has nasal airway obstruction. Patient does not have facial pain. Patient has facial pressure. Patient has decreased sense of smell. Decreased 40 % of normal. Associated Symptoms: Patient does not have nasal bleeding. 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 contralateral eye Chronic bilateral low back pain without sciatica Chronic hip pain, bilateral Chronic pain of both shoulders Chronic maxillary sinusitis Disorder of right rotator cuff Lumbar radicular pain HTN (hypertension) GERD (gastroesophageal reflux disease) Secondary osteoarthritis of multiple sites Rotator cuff arthropathy, left Raynaud's phenomenon without gangrene Chronic ethmoidal sinusitis Decreased sense of smell Acute DE, anterior wall (Multi) Cardiomyopathy, ischemic Hyperlipemia BMI 31.0-31.9,adult Shortness of breath Former smoker Congestive heart failure, NYHA class 2 and ACC/AHA stage C Edema of left upper arm Volume overload Currently attempting to quit smoking Arteriosclerosis of arterial coronary artery bypass graft Fatigue Past Medical History: He has a past medical history of Anxiety, Arthritis, Depression, GERD (gastroesophageal reflux disease), HL (hearing loss), Hyperlipidemia, Hypertension, Joint pain, Myocardial infarction (Multi), Peripheral neuropathy, Sinusitis, and Vision loss. He has no past medical history of Type 2 diabetes mellitus. Surgical History: He has a past surgical history that includes Coronary artery bypass graft; Coronary stent placement; and Shoulder arthroscopy (Bilateral). Family History: Family History Problem Relation Name Age of Onset Heart attack Mother Rheum arthritis Mother Rheum arthritis Brother Social History: He reports that he has been smoking cigarettes. He started smoking about 4 years ago. He has a 1 pack-year smoking history. He has never been exposed to tobacco smoke. He has never used smokeless tobacco. He reports that he does not currently use alcohol. He reports that he does not use drugs. Allergies: Patient has no known allergies. Current Meds: Current Outpatient Medications: aspirin 81 mg EC tablet, Take 1 tablet (81 mg) by mouth once daily., Disp: 90 tablet, Rfl: 3 atorvastatin (Lipitor) 80 mg tablet, TAKE ONE TABLET BY MOUTH DAILY, Disp: 90 tablet, Rfl: 3 clopidogrel (Plavix) 75 mg tablet, Take 1 tablet (75 mg) by mouth once daily., Disp: 90 tablet, Rfl: 3 DULoxetine (Cymbalta) [address] capsule, Take 1 capsule (30 mg) by mouth once daily., Disp: , Rfl: furosemide (Lasix) 20 mg tablet, Take 1 tablet (20 mg) by mouth once daily., Disp: 30 tablet, Rfl: 11 metoprolol succinate XL (Toprol-XL) 100 mg 24 hr tablet, Take 1 tablet (100 mg) by mouth once daily. Do not crush or chew., Disp: 90 tablet, Rfl: 3 multivitamin with minerals tablet, Take 1 tablet by mouth once daily. Do not start before May 16, 2023., Disp: , Rfl: omeprazole (PriLOSEC) [address] capsule, Take 1 capsule (40 mg) by mouth twice a day., Disp: , Rfl: oxyCODONE (Roxicodone) 5 mg immediate release tablet, Take 1 tablet (5 mg) by mouth every 4 hours if needed for severe pain (7 - 10)., Disp: 25 tablet, Rfl: 0 sacubitriL-valsartan (Entresto) 49-51 mg tablet, Take 1 tablet by mouth 2 times a day., Disp: 180 tablet, Rfl: 3 sodium chloride (Saline Mist) 0.65 % nasal spray, Administer 2 sprays into each nostril 5 times a day., Disp: 30 mL, Rfl: 12 spironolactone (Aldactone) 25 mg tablet, Take 1 tablet (25 mg) by mouth once daily., Disp: 30 tablet, Rfl: 11 acetaminophen (Tylenol) 325 mg tablet, Take 2 tablets (650 mg) by mouth every 4 hours if needed formild pain (1 - 3) or moderate pain (4 - 6). (Patient not taking: Reported on 05/27/2024), Disp: , Rfl: amoxicillin-pot clavulanate (Augmentin) 875-125 mg tablet, Take 1 tablet (875 mg) by mouth 2 times a day for 10 days., Disp: 20 tablet, Rfl: 0 cetirizine (ZyrTEC) 10 mg tablet, Take 1 tablet (10 mg) by mouth once daily as needed for allergies., Disp: , Rfl: empagliflozin (Jardiance) 10 mg, Take 1 tablet (10 mg) by mouth once daily. (Patient not taking: Reported on 05/27/2024), Disp: 90 tablet, Rfl: 3 nicotine (Nicoderm CQ) 14 mg/24 hr patch, Place 1 patch over 24 hours on the skin once every 24 hours., Disp: 30 patch, Rfl: 0 Vitals: Visit Vitals Ht 1.702 m (5' 7 ) Wt 92 kg (202 lb 14.4 oz) BMI 31.78 kg/m Smoking Status Some Days BSA 2.09 m Physical Exam: Nose: On external exam there are neither lesions nor asymmetry of the nasal tip/dorsum. On anteriorrhinoscopy, visualization posteriorly is limited on anterior examination. For this reason, to adequately evaluate posteriorly for masses, source of epistaxis, polypoid disease, debridement, and/or signs of infections, nasal endoscopy is indicated. (Please see procedure below.) SINONASAL ENDOSCOPY (CPT 48066): To better evaluate the patient's symptoms, sinonasal endoscopy is indicated. After discussion of risks and benefits, and topical decongestion and anesthesia, an endoscope was used to perform nasal endoscopy on each side. A time out identifying the patient, the procedure, the location of the procedure and any concerns was performed prior to beginning the procedure. Findings: Examination of the right nasal cavity revealed a patent maxillary sinus with normal-appearing mucosa. Ethmoid cavity was patent and appeared healthy. Middle meatus and sphenoethmoid recess without pus or polyps. Examination of the left nasal cavity revealed a patent maxillary sinus and eth moid cavity. There was mucopurulence within the inferior meatus that was cultured. Crusting and debris was removed from the nasal cavity floor and septum with a combination of alligator and suction. Middle meatus and sphenoethmoid recess were normal without pus or polyps. Provider Impressions: 1. Chronic sinusitis s/p bilateral endoscopic sinus surgery 02/28/24 2. Distant history of significant midface trauma; right orbital prosthesis 3. Rhinorrhea 4. Nasal airway obstruction, deviated septum s/p septoplasty 02/28/24 5. Decreased sense of smell Discussion: Morgan Latham had evidence of infection today on the left. I will prescribe him a 10-day course of Augmentin but I did obtain a culture so if his symptoms persist I asked him to contact my office and I can prescribe additional antibiotic therapy was done the culture result. I recommended discontinuation of the antibiotic for any side effects. I think continuation of rinses would be a v kristan good idea for him and I will send him information on how to make saline at home. All questions were answered and I recommended follow-up with me as needed. He was amenable to this,and all questions were answered. Scribe Attestation By signing my name below, I, Damaris Servin, attest that this documentation has been prepared under the direction and in the presence of Sual Gonzales MD. Signature: Saul Gonzales MD documented in this [facility] Work Phone: [phone]) 259-715609-19-2024 History of Present illness Narrative* Juve Mcpherson MD - 04/23/2024 1:33 PM EDTAssociated Problem(s): Recurrent depressive disorder, current episode mild (CMS/HCC) Mood controlled with medication and continue at current dose. * Juve Mcpherson MD - 04/23/2024 1:33 PM EDTAssociated Problem(s): Lumbar spondylosis Pain unchanged and use percocet PRN. Discussed risks and benefits of opiate therapy. Warned medication is narcotic and risk of addiction. OARRS reviewed. * Juve Mcpherson MD - 04/23/2024 1:33 PM EDTAssociated Problem(s): Ischemic cardiomyopathy (CMS/HCC) Edema controlled with medication. Follow with cardiology. * Juve Mcpherson MD - 04/23/2024 1:33 PM EDTAssociated Problem(s): GERD (gastroesophageal reflux disease) Symptoms controlled with omeprazole and continue. * Juve Mcpherson MD - 04/23/2024 1:32 PM EDTAssociated Problem(s): Generalized anxiety disorder (CMS/HCC) Mood controlled with medication and continue at current dose. * Juve Mcpherson MD - 04/23/2024 1:32 PM EDTAssociated Problem(s): Colon cancer screening Never had colon cancer screening and refer to surgeon. * Juve Mcpherson MD - 04/23/2024 1:31 PM EDTAssociated Problem(s): Benign essential hypertension (CMS/HCC) BP controlled and monitor PRN. * Juve Mcpherson MD - 04/23/2024 1:00 PM EDT Images from the original note were not included. Subjective Patient ID: Shaheed Latham is a 58 y.o. male who presents for Follow-up (3m ). Follow up HTN, depression, anxiety, pain, edema, and GERD. Checking BP PRN and typically controlled. BP normal today. Taking medication daily and tolerating without side effects. Mood controlled withmedication. Not as down or sad and feels happier. Interacting well with others and able to do more.Anxiety stable. Not as stressed out or overwhelmed. Not as nervous or worry as much. Not as singh or irritable. Pain unchanged. Pain in low back, hands, and shoulder. Pain with activity and walking. Harder to work or stay active due to pain. Using percocet and helps. Edema controlled with medication. Mild swelling at end of day and if on feet a lot. Edema improved in am and with elevation. GERD co ntrolled with omeprazole. Denies epigastric pain or burning and not waking up with symptoms. Review of Systems Constitutional: Negative for fatigue. Respiratory: Negative for cough, shortness of breath and wheezing. Cardiovascular: Negative for chest pain and palpitations. Gastrointestinal: Negative for abdominal pain, diarrhea, nausea and vomiting. Genitourinary: Negative for dysuria. Objective Physical Exam Constitutional: General: He is not in acute distress. Appearance: Normal appearance. HENT: Head: Normocephalic. Right Ear: Tympanic membrane and ear canal normal. Left Ear: Tympanic membrane and ear canal normal. Eyes: Extraocular Movements: Extraocular movements intact. Pupils: Pupils are equal, round, and reactive to light. Cardiovascular: Rate and Rhythm: Normal rate and regular rhythm. Heart sounds: No murmur heard. No friction rub. No gallop. Pulmonary: Breath sounds: Normal breath sounds. No wheezing, rhonchi or rales. Abdominal: General: Bowel sounds are normal. There is no distension. Palpations: Abdomen is soft. Tenderness: There is no abdominal tenderness. There is no guarding or rebound. Musculoskeletal: Left lower leg: No edema. Neurological: Mental Status: He is alert. Assessment/Plan Problem List Items Addressed This Visit Benign essential hypertension (CMS/HCC) - Primary BP controlled and monitor PRN. Relevant Orders Basic metabolic panel GERD (gastroesophageal reflux disease) Symptoms controlled with omeprazole and continue. Lumbar spondylosis Pain unchanged and use percocet PRN. Discussed risks and benefits of opiate therapy. Warned medication is narcotic and risk of addiction. OARRS reviewed. Dyslipidemia (CMS/HCC) Relevant Orders Lipid panel Generalized anxiety disorder (CMS/HCC) Mood controlled with medication and continue at current dose. Prediabetes Relevant Orders Hemoglobin A1c Ischemic cardiomyopathy (CMS/HCC) Edema controlled with medication. Follow with cardiology. Recurrent depressive disorder, current episode mild (CMS/HCC) Mood controlled with medication and continue at current dose. Encounter for long-term current use of medication Relevant Orders CBC and differential Hepatic function panel Screening PSA (prostate specific antigen) Relevant Orders PSA Obesity (BMI 30-39.9) Relevant Orders TSH Colon cancer screening Never had colon cancer screening and refer to surgeon. Relevant Orders Ambulatory referral to General Surgery documented in this encounterM[facility] [id number] Telephone encounter Note* Telephone Encounter - Carmen Altamirano - 03/31/2024 2:53 PM EDT Called patient Unable to LVM due to voicemail not being set up. Sent letter in regards to scheduling as directed below Please call and schedule follow up visit. Temporary medication refilled Thank you. [facility]08-27-2024 Miscellaneous Notes* Telephone Encounter - Carmen Altamirano - 03/31/2024 2:53 PM EDT Called patient Unable to LVM due to voicemail not being set up. Sent letter in regards to scheduling as directed below Please call and schedule follow up visit. Temporary medication refilled Thank you. * Telephone Encounter - Mohini Hook MD - 03/30/2024 7:03 PM EDT Please call and schedule follow up visit. Temporary medication refilled Thank you. Patient's request for medication is as follows: Requested Prescriptions Pending Prescriptions Disp Refills celecoxib (CELEBREX) 200 mg capsule [Pharmacy Med Name: CELECOXIB 200 MG CAPSULE] 60 capsule 11 Sig: take 1 capsule by mouth twice a day Prescription(s) as above. Please process accordingly. Mohini Hook MD * Telephone Encounter - Melissa Palomino LPN - 03/30/2024 10:57 AM EDT Most recent Rheumatology visit: 04/01/2023 (with Mohini Hook) Last Bone Density on file: None on file Rheumatology Care Team: None on file Recent Office Visits - This Specialty 04/01/2023 Secondary osteoarthritis of multiple sites Rheumatology Mohini Hook MD 08/17/2022 Secondary osteoarthritis of multiple sites Rheumatology Mohini Hook MD Upcoming Rheumatology Appointments - Next 365 Days No appointments to display CBC: None on file in the last 6 months Vitamin D: None on file in the last 6 months LFT: None on file in the last 6 months Hepatic Function: Creatinine: None on file in the last 6 months ESR/CRP: None on file in the last 6 months Uric Acid: None on file in the last 6 months Open Standing (Multiple Instance) Lab Orders None Open Future (Single Instance) Lab Orders None documented in this encounterLake[facility]08-26-[facility]24 Telephone encounter Note * Telephone Encounter - Mohini Hook MD - 03/30/2024 7:03 PM EDT Please call and schedule follow up visit. Temporary medication refilled Thank you. Patient's request for medication is as follows: Requested Prescriptions Pending Prescriptions Disp Refills celecoxib (CELEBREX) 200 mg capsule [Pharmacy Med Name: CELECOXIB 200 MG CAPSULE] 60 capsule 11 Sig: take 1 capsule by mouth twice a day Prescription(s) as above. Please process accordingly. Mohini Hook MD [facility]08-26-2024 Telephone encounter Note* Telephone Encounter - Melissa Palomino LPN - 03/30/2024 10:57 AM EDT Most recent Rheumatology visit: 04/01/2023 (with Mohini Hook) Last Bone Density on file: None on file Rheumatology Care Team: None on file Recent Office Visits - This Specialty 04/01/2023 Secondary osteoarthritis of multiple sites Rheumatology Mohini Hook MD 08/17/2022 Secondary osteoarthritis of multiple sites Rheumatology Mohini Hook MD Upcoming Rheumatology Appointments - Next 365 Days No appointments to display CBC: None on file in the last 6 months Vitamin D: None on file in the last 6 months LFT: None on file in the last 6 months Hepatic Function: Creatinine: None on file in the last 6 months ESR/CRP: None on file in the last 6 months Uric Acid: None on file in the last 6 months Open Standing (Multiple Instance) Lab Orders None Open Future (Single Instance) Lab Orders None [facility]08-10-2024 History of Present illness Narrative* Saul Gonzales MD - 03/14/2024 10:15 AM EDT Chief Complaint: 1. Chronic sinusitis s/p bilateral endoscopic sinus surgery 02/28/24 2. Distant history of significant midface trauma; right orbital prosthesis 3. Rhinorrhea 4. Nasal airway obstruction, deviated septum s/p septoplasty 02/28/24 5. Facial pressure 6. Decreased sense of smell History Of Present Illness: Morgan Latham presents since last being seen March 04, 2024. He has continued to do well. He is rinsing his nose regularly with mupirocin rinses. He had been provided this previously by different provider and is using it twice per day. He denies significant bleeding. His nasal breathing has been very good. He has resumed Plavix. Active Problems: Patient Active Problem List Diagnosis Atherosclerotic heart disease of [place] coronary artery with unspecified angina pectoris ([facility] [place]) STEMI (ST elevation myocardial infarction) (Multi) Post-op pain Anxiety Bilateral carpal tunnel syndrome Blindness of right eye with normal vision in contralateral eye Chronic bilateral low back pain without sciatica Chronic hip pain, bilateral Chronic pain of both shoulders Chronic maxillary sinusitis Disorder of right rotator cuff Lumbar radicular pain HTN (hypertension) GERD (gastroesophageal reflux disease) Secondary osteoarthritis of multiple sites Rotator cuff arthropathy, left Raynaud's phenomenon without gangrene Chronic ethmoidal sinusitis Decreased sense of smell Acute DE, anterior wall (Multi) Cardiomyopathy, ischemic Hyperlipemia BMI 31.0-31.9,adult Shortness of breath Former smoker Congestive heart failure, NYHA class 2 and ACC/AHA stage C (Multi) Edema of left upper arm Volume overload Currently attempting to quit smoking Arteriosclerosis of arterial coronary artery bypass graft Fatigue Past Medical History: He has a past medical history of Anxiety, Arthritis, Depression, GERD (gastroesophageal reflux disease), HL (hearing loss), Hyperlipidemia, Hypertension, Joint pain, Myocardial infarction (Multi), Peripheral neuropathy, Sinusitis, and Vision loss. He has no past medical history of Type 2 diabetes mellitus (Multi). Surgical History: He has a past surgical history that includes Coronary artery bypass graft; Coronary stent placement; and Shoulder arthroscopy (Bilateral). Family History: Family History Problem Relation Name Age of Onset Heart attack Mother Rheum arthritis Mother Rheum arthritis Brother Social History: He reports that he has been smoking cigarettes. He started smoking about 4 years ago. He has a 1 pack-year smoking history. He has never used smokeless tobacco. He reports that he does not currently use alcohol. He reports that he does not use drugs. Allergies: Patient has no known allergies. Current Meds: Current Outpatient Medications: acetaminophen (Tylenol) 325 mg tablet, Take 2 tablets (650 mg) by mouth every 4 hours if needed formild pain (1 - 3) or moderate pain (4 - 6). (Patient not taking: Reported on 02/28/2024), Disp: , Rfl: aspirin 81 mg EC tablet, Take 1 tablet (81 mg) by mouth once daily., Disp: 90 tablet, Rfl: 3 atorvastatin (Lipitor) 80 mg tablet, TAKE ONE TABLET BY MOUTH DAILY, Disp: 90 tablet, Rfl: 3 cetirizine (ZyrTEC) 10 mg tablet, Take 1 tablet (10 mg) by mouth once daily as needed for allergies., Disp: , Rfl: clopidogrel (Plavix) 75 mg tablet, Take 1 tablet (75 mg) by mouth once daily., Disp: 90 tablet, Rfl: 3 DULoxetine (Cymbalta) [address] capsule, Take 1 capsule (30 mg) by mouth once daily., Disp: , Rfl: empagliflozin (Jardiance) 10 mg, Take 1 tablet (10 mg) by mouth once daily., Disp: 90 tablet, Rfl: 3 metoprolol succinate XL (Toprol-XL) 100 mg 24 hr tablet, Take 1 tablet (100 mg) by mouth once daily. Do not crush or chew., Disp: 90 tablet, Rfl: 3 multivitamin with minerals tablet, Take 1 tablet by mouth once daily. Do not start before May 16, 2023., Disp: , Rfl: nicotine (Nicoderm CQ) 14 mg/24 hr patch, Place 1 patch over 24 hours on the skin once every 24 hours., Disp: 30 patch, Rfl: 0 omeprazole (PriLOSEC) [address] capsule, Take 1 capsule (40 mg) by mouth twice a day., Disp: , Rfl: oxyCODONE (Roxicodone) 5 mg immediate release tablet, Take 1 tablet (5 mg) by mouth every 4 hours if needed for severe pain (7 - 10)., Disp: 25 tablet, Rfl: 0 sacubitriL-valsartan (Entresto) 49-51 mg tablet, Take 1 tablet by mouth 2 times a day., Disp: 180 tablet, Rfl: 3 sodium chloride (Saline Mist) 0.65 % nasal spray, Administer 2 sprays into each nostril 5 times a day., Disp: 30 mL, Rfl: 12 spironolactone (Aldactone) 25 mg tablet, Take 1 tablet (25 mg) by mouth once daily., Disp: 30 tablet, Rfl: 11 Vitals: Visit Vitals Temp 36.1 C (97 F) Ht 1.727 m (5' 8 ) Wt 87.5 kg (193 lb) BMI 29.35 kg/m Smoking Status Some Days BSA 2.05 m Physical Exam: Nose: On external exam there are neither lesions nor asymmetry of the nasal tip/dorsum. On anteriorrhinoscopy, visualization posteriorly is limited on anterior examination. For this reason, to adequately evaluate posteriorly for masses, source of epistaxis, polypoid disease, debridement, and/or signs of infections, nasal endoscopy is indicated. (Please see procedure below.) SINONASAL ENDOSCOPY (CPT 91252-84): To better evaluate the patient's symptoms, sinonasal endoscopy is indicated. After discussion of risks and benefits, and topical decongestion and anesthesia, an endoscope was used to perform nasal endoscopy on each side. A time out identifying the patient, the procedure, the location of the procedure and any concerns was performed prior to beginning the procedure. Findings: Examination of the right nasal cavity revealed no significant debris. The maxillary sinusand ethmoid cavity were patent and the mucosa appeared normal. Examination of the left nasal cavityrevealed some mucoid debris within the maxillary sinus and ethmoid cavity that was removed with a suction. The maxillary and ethmoid are widely patent. No pus or polyps at either middle meatus or sphenoethmoid recess. Provider Impressions: 1. Chronic sinusitis s/p bilateral endoscopic sinus surgery 02/28/24 2. Distant history of significant midface trauma; right orbital prosthesis 3. Rhinorrhea 4. Nasal airway obstruction, deviated septum s/p septoplasty 02/28/24 5. Facial pressure 6. Decreased sense of smell Discussion: Morgan Latham appeared very well on examination today. He questioned whether or not he needs to continue the mupirocin but given that there was no evidence of infection today and he was healing very well I suggested completing what he has and I can always provide him more at a later time if he develops recurrent issues with infection. I would like him to continue rinsing on average about once per day. I asked him to follow-up with me in about 2 months. All questions were answered. Signature: Saul Gonzales MD. documented in this [facility] Work Phone: [phone]) 449-367406-12-2024 History of Present illness Narrative* Saul Gonzales MD - 01/15/2024 11:00 AM EDT Chief Complaint: 1. Chronic sinusitis 2. Distant history of significant midface trauma; right orbital prosthesis 3. Rhinorrhea 4. Nasal airway obstruction, deviated septum 5. Facial pressure 6. Decreased sense of smell 7. Dysphonia 8. Epistaxis History Of Present Illness: Morgan Latham presents since last being seen 04/30/23. He was scheduled to have sinus surgery but had an anterior wall STEMI that required 2 vessel CABG on 05/08/23. He was seen by cardiology recently and was medically stable for sinus surgery and he presents today to discuss this. He is using saline rinses once or twice per day. His symptoms are listedbelow. Main Symptoms: Patient has anterior nasal drainage. Patient does not have posterior nasal drainage. Patient has nasal airway obstruction. Patient does not have facial pain. Patient has facial pressure. Patient has decreased sense of smell. Decreased 80 % of normal. Associated Symptoms: Patient does not have headaches. Patient does not have throat clearing. Patient does not have coughing. Patient does not have dysphonia. Patient does not have sneezing. Patient does not have itchy eyes. Patient does not have nasal bleeding. 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 Chronic bilateral low back pain without sciatica Chronic hip pain, bilateral Chronic pain of both shoulders Chronic maxillary sinusitis Disorder of right rotator cuff Lumbar radicular pain HTN (hypertension) GERD (gastroesophageal reflux disease) Secondary osteoarthritis of multiple sites Rotator cuff arthropathy, left Raynaud's phenomenon without gangrene Chronic ethmoidal sinusitis Decreased sense of smell Acute DE, anterior wall (Multi) Cardiomyopathy, ischemic Hyperlipemia BMI 31.0-31.9,adult Shortness of breath Former smoker Congestive heart failure, NYHA class 2 and ACC/AHA stage C (Multi) Edema of left upper arm Volume overload Currently attempting to quit smoking Arteriosclerosis of arterial coronary artery bypass graft Fatigue Past Medical History: He has a past medical history of Anesthesia of skin (12/16/2020), Personal history of other diseases of the circulatory system (12/16/2020), Personal history of other diseases of the musculoskeletal system and connective tissue (12/16/2020), and Unspecified visual loss (12/16/2020). Surgical History: He has a past surgical history that includes Coronary artery bypass graft. Family History: Family History Problem Relation Name Age of Onset Heart attack Mother Rheum arthritis Mother Rheum arthritis Brother Social History: He reports that he has been smoking cigarettes. He has never used smokeless tobacco. He reports current alcohol use. He reports that he does not use drugs. Allergies: Patient has no known allergies. Current Meds: Current Outpatient Medications: acetaminophen (Tylenol) 325 mg tablet, Take 2 tablets (650 mg) by mouth every 4 hours if needed formild pain (1 - 3) or moderate pain (4 - 6)., Disp: , Rfl: aspirin 81 mg EC tablet, Take 1 tablet (81 mg) by mouth once daily., Disp: 90 tablet, Rfl: 3 atorvastatin (Lipitor) 80 mg tablet, TAKE ONE TABLET BY MOUTH DAILY, Disp: 90 tablet, Rfl: 3 cetirizine (ZyrTEC) 10 mg tablet, Take 1 tablet (10 mg) by mouth once daily as needed for allergies., Disp: , Rfl: clopidogrel (Plavix) 75 mg tablet, Take 1 tablet (75 mg) by mouth once daily., Disp: 90 tablet, Rfl: 3 DULoxetine (Cymbalta) [address] capsule, Take 1 capsule (30 mg) by mouth once daily., Disp: , Rfl: empagliflozin (Jardiance) 10 mg, Take 1 tablet (10 mg) by mouth once daily., Disp: 90 tablet, Rfl: 3 metoprolol succinate XL (Toprol-XL) 100 mg 24 hr tablet, Take 1 tablet (100 mg) by mouth once daily. Do not crush or chew., Disp: 90 tablet, Rfl: 3 multivitamin with minerals tablet, Take 1 tablet by mouth once daily. Do not start before May 16, 2023., Disp: , Rfl: nicotine (Nicoderm CQ) 14 mg/24 hr patch, Place 1 patch over 24 hours on the skin once every 24 hours., Disp: 30 patch, Rfl: 0 omeprazole (PriLOSEC) [address] capsule, Take 1 capsule (40 mg) by mouth twice a day., Disp: , Rfl: oxyCODONE-acetaminophen (Percocet) 10-325 mg tablet, Take 1 tablet by mouth 4 times a day as neededfor severe pain (7 - 10)., Disp: , Rfl: sacubitriL-valsartan (Entresto) 49-51 mg tablet, Take 1 tablet by mouth 2 times a day., Disp: 180 tablet, Rfl: 3 spironolactone (Aldactone) 25 mg tablet, Take 1 tablet (25 mg) by mouth once daily., Disp: 30 tablet, Rfl: 11 Vitals: Visit Vitals Ht 1.702 m (5' 7 ) Wt 89.7 kg (197 lb 12.8 oz) BMI 30.98 kg/m Smoking Status Some Days BSA 2.06 m Physical Exam: Nose: On external exam there are neither lesions nor asymmetry of the nasal tip/dorsum. On anteriorrhinoscopy, visualization posteriorly is limited on anterior examination. For this reason, to adequately evaluate posteriorly for masses, source of epistaxis, polypoid disease, debridement, and/or signs of infections, nasal endoscopy is indicated. (Please see procedure below.) SINONASAL ENDOSCOPY (CPT 48543): To better evaluate the patient's symptoms, sinonasal endoscopy is indicated. After discussion of risks and benefits, and topical decongestion and anesthesia,an endoscope was used to perform nasal endoscopy on each side. A time out identifying the patient, the procedure, the location of the procedure and any concerns was performed prior to beginning the procedure. Findings: Examination of the right nasal cavity revealed discolored mucus draining from the middle meatus. There were then previous surgical intervention to the right inferior turbinate. There was a deviated septum to the right at the mid aspect. Sphenoethmoid recess was normal. Examination of the left nasal cavity revealed crusting and debris. I was able to place the scope above this and there was a synechiae within the nasal cavity. There was discolored mucus at the inferior meatus and there is again been surgical intervention to the inferior turbinate. There was also discolored mucus at the middle meatus. The sphenoethmoid recess was normal. SINUS CT FINDINGS 01/28/23: The visualized intracranial portions are within normal [...] vascular calcifications of the bilateral carotid bifurcations. Provider Impressions: 1. Chronic sinusitis 2. Distant history of significant midface trauma; right orbital prosthesis 3. Rhinorrhea 4. Nasal airway obstruction, deviated septum 5. Facial pressure 6. Decreased sense of smell Discussion: Morgan Latham and I discussed his previous and current exam. He was set up for sinus surgery previously but had a heart attack and subsequent cardiac surgery but is now ready for the sinus surgery. I would like to schedule the surgery through our main campus so that there is medical backup if needed. I will prescribe him a 10-day course of oral antibiotic (Augmentin) today given the discolored mucus that I noticed on exam. I will request his previously obtained CT sinus to be reuploaded into our system. We again discussed his previous surgery following midface trauma and that there may be persistence of symptoms on some level as scarring related that surgery may not be completely able to be reversed. When I receive his CT, I will also review his dentition as there were comments in the report about some periapical lucencies so he may do well being evaluated by his dentist in addition to undergoing endoscopic sinus surgery. We have previously discussed risks of sinus surgery and nasal airway surgery and these were reiterated today and he was comfortable moving forward with the procedure. He will need medical risk assessment. All questions were answered. Signature: Saul Gonzales MD documented in this [facility] Work Phone: 1([phone]) 316-554304-30-2024 History of Present illness Narrative* Alyssa Quick, DO - 12/03/2023 2:00 PM EDT Subjective Morgan Latham is a 58 y.o. male 58-year-old gentleman returns for follow-up, he is improved from a cardiovascular standpoint. His only complaints really are regards to his orthopedic related issues including lower back, left shoulder. He is in need of surgeries that were to be scheduled however his heart attack proceeded any surge vladimir this past May. He has not had any recurrent hospitalizations, nitrate usage, heart failure or angina two-vessel CABG performed on May 08. He sustained anterior STEMI on May 03, was transferred to [facility] and underwent two-vessel PCI of the diagonal branch of the ramus branch with subsequent intra-aortic balloon pump placement. He had chronic total occlusion of the mid LAD he was then transferred to [facility] and underwent revascularization with a ALVAREZ to the LAD and vein graft to the OM branch with Dr. Chidi Pressley with an overall excellent result. His left ventricular function remains severely impaired by last echo at 30 to 35%. He is seeking preoperative assessment and clearance for nasal/sinus surgery, left shoulder surgery and laminectomy at some point this year. His tobacco use is diminished substantially he is down to a couple cigarettes daily. Main issues are really are fatigue and decreased energy level and pain. Recommendations, will clear him for his upcoming surgeries, will claims counsel him in regards to withholding antiplatelet therapy once the time comes for his surgeries, follow-up otherwise in 6 months. Continue advised on smoking cessation. Review of Systems Constitutional: Positive for malaise/fatigue. Respiratory: Positive for shortness of breath. All other systems reviewed and are negative. Vitals: 12/03/23 1403 BP: 132/82 BP Location: Left arm Patient Position: Sitting Pulse: 72 Weight: 92.5 kg (204 lb) Height: 1.702 m (5' 7 ) Objective Physical Exam Constitutional: Appearance: Normal appearance. HENT: Nose: Nose normal. Neck: Vascular: No carotid bruit. Cardiovascular: Rate and Rhythm: Normal rate. Pulses: Normal pulses. Heart sounds: Normal heart sounds. Pulmonary: Effort: Pulmonary effort is normal. Abdominal: General: Bowel sounds are normal. Palpations: Abdomen is soft. Musculoskeletal: General: Normal range of motion. Cervical back: Normal range of motion. Right lower leg: No edema. Left lower leg: No edema. Skin: General: Skin is warm and dry. Neurological: General: No focal deficit present. Mental Status: He is alert. Psychiatric: Mood and Affect: Mood normal. Behavior: Behavior normal. Thought Content: Thought content normal. Judgment: Judgment normal. Allergies Patient has no known allergies. Current Medications Current Outpatient Medications: acetaminophen (Tylenol) 325 mg tablet, Take 2 tablets (650 mg) by mouth every 4 hours if needed formild pain (1 - 3) or moderate pain (4 - 6)., Disp: , Rfl: aspirin 81 mg EC tablet, Take 1 tablet (81 mg) by mouth once daily., Disp: 90 tablet, Rfl: 3 atorvastatin (Lipitor) 80 mg tablet, TAKE ONE TABLET BY MOUTH DAILY, Disp: 90 tablet, Rfl: 3 cetirizine (ZyrTEC) 10 mg tablet, Take 1 tablet (10 mg) by mouth once daily as needed for allergies., Disp: , Rfl: clopidogrel (Plavix) 75 mg tablet, Take 1 tablet (75 mg) by mouth once daily., Disp: 90 tablet, Rfl: 3 DULoxetine (Cymbalta) [address] capsule, Take 1 capsule (30 mg) by mouth once daily., Disp: , Rfl: empagliflozin (Jardiance) 10 mg, Take 1 tablet (10 mg) by mouth once daily., Disp: 90 tablet, Rfl: 3 metoprolol succinate XL (Toprol-XL) 100 mg 24 hr tablet, Take 1 tablet (100 mg) by mouth once daily. Do not crush or chew., Disp: 90 tablet, Rfl: 3 multivitamin with minerals tablet, Take 1 tablet by mouth once daily. Do not start before May 16, 2023., Disp: , Rfl: omeprazole (PriLOSEC) [address] capsule, Take 1 capsule (40 mg) by mouth twice a day., Disp: , Rfl: oxyCODONE-acetaminophen (Percocet) 10-325 mg tablet, Take 1 tablet by mouth 4 times a day as neededfor severe pain (7 - 10)., Disp: , Rfl: sacubitriL-valsartan (Entresto) 49-51 mg tablet, Take 1 tablet by mouth 2 times a day., Disp: 180 tablet, Rfl: 3 spironolactone (Aldactone) 25 mg tablet, Take 1 tablet (25 mg) by mouth once daily., Disp: 30 tablet, Rfl: 11 nicotine (Nicoderm CQ) 14 mg/24 hr patch, Place 1 patch over 24 hours on the skin once every 24 hours., Disp: 30 patch, Rfl: 0 Assessment/Plan 1. 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 ([facility]) Follow Up In Cardiology 2. ST elevation myocardial infarction (STEMI), unspecified artery (Multi) 3. Congestive heart failure, NYHA class 2 and ACC/AHA stage C (Multi) 4. Cardiomyopathy, ischemic 5. Primary hypertension 6. Mixed hyperlipidemia 7. Arteriosclerosis of arterial coronary artery bypass graft 8. Currently attempting to quit smoking 9. BMI 31.0-31.9,adult 10. Other fatigue Scribe Attestation By signing my name below, IDonna LPN, Scribe attest that this documentation has been prepared under the direction and in the presence of Chandrika Quick DO. Provider Attestation - Scribe documentation All medical record entries made by the Scribe were at my direction and personally dictated by me. Ihave reviewed the chart and agree that the record accurately reflects my personal performance of the history, physical exam, discussion and plan. documented in this [facility] Work Phone: 1(443) 628-338804-30-2024 Instructions* Patient Instructions* Hailey Yip CMA - 12/03/2023 2:00 PM EDT Please bring all medicines, vitamins, and herbal supplements with you when you come to the office. Prescriptions will not be filled unless you are compliant with your follow up appointments or have a follow up appointment scheduled as per instruction of your physician. Refills should be requested at the time of your visit. [facility] Work Phone: [phone]) 789-195104-10-2024 Evaluation + Plan note* Assessment & Plan Note - BEATRICE Johnson - 11/13/2023 10:36 AM EDTAssociated Problem(s): Currently attempting to quit smoking Last couple days has been smoking [address] [facility] Work Phone: 1([phone]) 351-158304-10-2024 Miscellaneous Notes* Assessment & Plan Note - BEATRICE Johnson - 11/13/2023 10:36 AM EDTAssociated Problem(s): Currently attempting to quit smoking Last couple days has been smoking 10 per day [facility] Work Phone: [phone] 616-545904-10-2024 History of Present illness Narrative* BEATRICE Johnson - 11/13/2023 10:30 AM EDT Chief Complaint Awful Reason for Visit 2-week follow-up. Patient presents to the office today for outpatient follow-up for volume overload. Last evaluated in clinic by myself 2 weeks ago. At that time continued Lasix and Aldactone. Repeat potassium 4.7, creatinine 1.0. Subsequent right upper extremity ultrasound no evidence of DVT. Presents today ambulatory with steady gait. History of Present Illness Patient is a pleasant 58 old gentleman who presents today complaining of 1 week history of bodyaches, fatigability and feeling awful . He denies fever cough or chills. His weight is down approximately 17 pounds, he has some mild postural orthostatic hypotension. Denies any shortness of breath ambulating in from the parking lot. Denies any recurrent chest pain. History of depression and feels like maybe depression is getting worse . From a cardiovascular standpoint there is no evidence of decompensated heart failure, he does have perhaps some slight azotemia. Will discontinue diuretics at this time. Patient reports that overall has no complaint(s) of chest pain, chest pressure/discomfort, dyspnea,and exertional chest pressure/discomfort October 2023 HDL 66, LDL 61. Unfortunately, due to somatic complaints he has started smoking again, reinforced the negative impact and encouraged to continue with NicoDerm patches. Presenting complaints most likely consistent with URI versus worsening depression. Review of Systems Constitutional: Positive for malaise/fatigue. Cardiovascular: Negative for chest pain, dyspnea on exertion, irregular heartbeat, leg swelling, near-syncope, orthopnea, palpitations, paroxysmal nocturnal dyspnea and syncope. Visit Vitals BP 130/82 (BP Location: Left arm, Patient Position: Sitting) Pulse 82 Ht 1.702 m (5' 7 ) Wt 89.8 kg (198 lb) BMI 31.01 kg/m Smoking Status Some Days BSA 2.06 m Physical Exam Vitals and nursing note reviewed. [...] Affect: Mood normal. Behavior: Behavior is cooperative. No Known Allergies Current Outpatient Medications Medication Instructions acetaminophen (TYLENOL) 650 mg, oral, Every 4 hours PRN aspirin 81 mg, oral, Daily atorvastatin (LIPITOR) 80 mg, oral, Daily cetirizine (ZYRTEC) 10 mg, oral, Daily PRN clopidogrel (PLAVIX) 75 mg, oral, Daily DULoxetine (Cymbalta) [address] capsule 1 capsule, Daily empagliflozin (JARDIANCE) 10 mg, oral, Daily metoprolol succinate XL (TOPROL-XL) 100 mg, oral, Daily, Do not crush or chew. multivitamin with minerals tablet 1 tablet, oral, Daily nicotine (Nicoderm CQ) 14 mg/24 hr patch 1 patch, transdermal, Every 24 hours oxyCODONE-acetaminophen (Percocet) 10-325 mg tablet 1 tablet, oral, 4 times daily PRN sacubitriL-valsartan (Entresto) 49-51 mg tablet 1 tablet, oral, 2 times daily spironolactone (ALDACTONE) 25 mg, oral, Daily Assessment: Problem List Items Addressed This Visit Atherosclerotic heart disease of [place] coronary artery with unspecified angina pectoris (CMS/HCC) HTN (hypertension) Hyperlipemia Relevant Orders Creatine Kinase BMI 31.0-31.9,adult Congestive heart failure, NYHA class 2 and ACC/AHA stage C (CMS/HCC) - Primary Relevant Orders Basic Metabolic Panel Creatine Kinase Follow Up In Cardiology Volume overload Relevant Orders Basic Metabolic Panel Currently attempting to quit smoking Last couple days has been smoking 10 per day Plan: Through informed decision making process incorporating patients unique circumstances, the followingtreatment plan will be initiated: 1. Prescription drug management of cardiovascular medication for efficacy, adherence to treatment, side effect assessment and polypharmacy. Current treatment clinically warranted and to continue withfollowing modifications: - Stop lasix 2. Labs (chem6, CPK) 3. Return for follow-up; in the interim, contact the office if new symptoms arise. CAD ENGINEER 2 weeks You need to stop smoking. Though it is not easy, more than half of all adults smokers have quit. Weencourage you to write down all the reasons you should quit smoking and set a quit date for yourself. Ask us how we can help. You may also call 1-619-KCRC-NOW for free resources and assistance. documented in this [facility] Work Phone: [phone]) [phone] Instructions* Patient Instructions* BEATRICE Johnson - 11/13/2023 10:30 AM EDT Please bring all medicines, vitamins, and [...] Current treatment clinically warranted and to continue withfollowing modifications: - Stop lasix 2. Labs (chem6, CPK) 3. Return for follow-up; in the interim, contact the office if new symptoms arise. CAD ENGINEER 2 weeks You need to stop smoking. Though it is not easy, more than half of all adults smokers have quit. Weencourage you to write down all the reasons you should quit smoking and set a quit date for yourself. Ask us how we can help. You may also call 6-239-QAPRNOW for free resources and assistance. [facility]: [phone]) 754-846803-20-2024 Evaluation + Plan note* Assessment & Plan Note - BEATRICE Johnson - 10/23/2023 2:57 PM EDTAssociated Problem(s): Currently attempting to quit smoking Is using nicoderm patches [facility] Work Phone: [phone] Miscellaneous Notes* Assessment & Plan Note - BEATRICE Johnson - 10/23/2023 2:57 PM EDTAssociated Problem(s): Currently attempting to quit smoking Is using nicoderm patches documented in this [facility] Work Phone: [phone] 163-998603-20-2024 History of Present illness Narrative* Odilia Almanzar BEATRICE Ernandez - 10/23/2023 2:30 PM EDT Chief Complaint Doing pretty good Reason for Visit 1 week follow-up Patient presents to the office today for outpatient follow-up for fluid retention Last evaluated in clinic by myself 1 week ago. At that time persistent presented with reports of fluid retention. I increase Lasix to 40 mg daily and spironolactone 25 mg daily. He reportedly gettinglabs prior to follow-up today. He also had significant left upper extremity edema, has not completed the ultrasound. Presents today ambulatory with steady gait. Accompanied by patient Patient denies any hospitalizations or significant changes to interval medical history since last office follow-up. History of Present Illness Patient is a pleasant 58-year-old gentleman who presents to the office today reportedly doing pretty good . He reports on his home scale his weight is down 8 pounds with resolution of his lower extremity edema, he reports that yesterday his left upper extremity edema was almost all gone today itis mildly edematous. Remains with positive radial pulse. Otherwise denies orthopnea or PND. Weight in our office is inaccurate as he had his jacket on. Denies any postural orthostatic hypotension, no dry mouth. Will continue current dose of diuretic. Left upper extremity -hand remains with some mild edema. Patient reports that overall has no complaint(s) of chest pain, chest pressure/discomfort, claudication, exertional chest pressure/discomfort, and fatigue Review of Systems Cardiovascular: Negative for chest pain, dyspnea on exertion, irregular heartbeat, leg swelling, near-syncope, orthopnea, palpitations, paroxysmal nocturnal dyspnea and syncope. Visit Vitals BP 118/80 (BP Location: Left arm, Patient Position: Sitting) Pulse 78 Ht 1.702 m (5' 7 ) Wt 97.5 kg (215 lb) BMI 33.67 kg/m Smoking Status Some Days BSA 2.15 m Physical Exam Vitals and nursing note reviewed. [...] Affect: Mood normal. Behavior: Behavior is cooperative. No Known Allergies Current Outpatient Medications Medication Instructions acetaminophen (TYLENOL) 650 mg, oral, Every 4 hours PRN aspirin 81 mg, oral, Daily atorvastatin (LIPITOR) 80 mg, oral, Daily cetirizine (ZYRTEC) 10 mg, oral, Daily PRN clopidogrel (PLAVIX) 75 mg, oral, Daily DULoxetine (Cymbalta) [address] capsule 1 capsule, Daily empagliflozin (JARDIANCE) 10 mg, oral, Daily furosemide (LASIX) 20 mg, oral, 2 times daily metoprolol succinate XL (TOPROL-XL) 100 mg, oral, Daily, Do not crush or chew. multivitamin with minerals tablet 1 tablet, oral, Daily nicotine (Nicoderm CQ) 14 mg/24 hr patch 1 patch, transdermal, Every 24 hours oxyCODONE-acetaminophen (Percocet) 10-325 mg tablet 1 tablet, oral, 4 times daily PRN sacubitriL-valsartan (Entresto) 49-51 mg tablet 1 tablet, oral, 2 times daily spironolactone (ALDACTONE) 25 mg, oral, Daily Assessment: A 58-year-old gentleman with ischemic cardiomyopathy LVEF 35-40% functional class IIb stage C : presents today with 8 pound diuresis over the course of the week, need to review pending lab work. Willcontinue current treatment. Problem List Items Addressed This Visit Congestive heart failure, NYHA class 2 and ACC/AHA stage C (CMS/HCC) Edema of left upper arm - Primary Volume overload Relevant Orders Follow Up In Cardiology Currently attempting to quit smoking Is using nicoderm patches Plan: Through informed decision making process incorporating patients unique circumstances, the followingtreatment plan will be initiated: 1. Prescription drug management of cardiovascular medication for efficacy, adherence to treatment, side effect assessment and polypharmacy. Current treatment clinically warranted and to continue without modifications. 2. Return for follow-up; in the interim, contact the office if new symptoms arise. CAD ENGINEER 3 weeks You need to stop smoking. Though it is not easy, more than half of all adults smokers have quit. Weencourage you to write down all the reasons you should quit smoking and set a quit date for yourself. Ask us how we can help. You may also call 0-137-QNKC-NOW for free resources and assistance. Odilia Ernandez MSN, 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, PMHNP-[facility] Please excuse any errors in grammar or translation related to this dictation. Voice recognition software was utilized to prepare this document. [facility] Work Phone: [phone]) [phone] Instructions* Patient Instructions* BEATRICE Johnson - 10/23/2023 2:30 PM EDT Please bring all medicines, vitamins, [...] contact the office if new symptoms arise. CAD ENGINEER 3 weeks You need to stop smoking. Though it is not easy, more than half of all adults smokers have quit. Weencourage you to write down all the reasons you should quit smoking and set a quit date for yourself. Ask us how we can help. You may also call 9-539-STED-NOW for free resources and assistance. documented in [facility] Work Phone: [phone]) 356-803203-12-2024 Evaluation + Plan note* Assessment & Plan Note - BEATRICE Johnson - 10/15/2023 2:38 PM EDTAssociated Problem(s): Currently attempting to quit smoking 4 - 10 per day Did better on nicoderm patches - will provide Continued every day tobacco use. Have reviewed the negative cardiovascular impact of nicotine. [facility] Work Phone: [phone] Miscellaneous Notes* Assessment & Plan Note - BEATRICE Johnson - 10/15/2023 2:38 PM EDTAssociated Problem(s): Currently attempting to quit smoking 4 - 10 per day Did better on nicoderm patches - will provide Continued every day tobacco use. Have reviewed the negative cardiovascular impact of nicotine. [facility] Work Phone: 1([phone]) 611-921203-12-2024 History of Present illness Narrative* BEATRICE Johnson - 10/15/2023 2:00 PM EDT Chief Complaint My arm is swelling up and I gained weight Reason for Visit Add on Patient presents to the office today for outpatient follow-up for weight gain. Last evaluated in clinic by myself August 2023. Presents today ambulatory with steady gait. Accompanied by patient Patient denies any hospitalizations or significant changes to interval medical history since last office follow-up. History of Present Illness Patient is a pleasant 58-year-old gentleman who presents to the office today reporting a fairly quick onset of edema and weight gain over the last 72 hours. He reports returning to work last week for5 hours a day where he had to utilize a flor. Since that time he has noted increasing edema in his left upper extremity. May 2023 hospitalization he was noted to have a superficial venous basilic vein thrombus. There is no pain, no discomfort, no tightness, no evidence of compartment syndrome. He reports a 20 pound weight gain over the last 3 days, or office scale document 16 pounds. He is adamant that he is compliant with meds. Denies increased free fluid intake. He denies any type of shortness of breath, no evidence of orthopnea or PND. On exam he has regular ausculatory rate and rhythm. He denies any type of palpitations. Not attend cardiac rehab. Is walking 5 miles daily. ICM HFrEF 35-40% FC II Stage C No evidence of overt left-sided failure. Presenting right-sided volume overload -question if right upper extremity edema is due to overuse. Will check ultrasound to verify no significant thromboembolism. Increased diuretic. Reduce free fluid intake. Review of Systems Constitutional: Positive for weight gain. Cardiovascular: Negative for chest pain, dyspnea on exertion, irregular heartbeat, leg swelling, near-syncope, orthopnea, palpitations, paroxysmal nocturnal dyspnea and syncope. Visit Vitals BP 118/68 (BP Location: Left arm, Patient Position: Sitting) Pulse 60 Ht 1.702 m (5' 7 ) Wt 98 kg (216 lb) BMI 33.83 kg/m Smoking Status Some Days BSA 2.15 m Physical Exam Vitals and nursing note reviewed. Constitutional: Appearance: Normal appearance. Cardiovascular: Rate and Rhythm: Normal rate and regular rhythm. Heart sounds: Normal heart sounds. Comments: RUE edematous Pulmonary: Effort: Pulmonary effort is normal. Breath sounds: Normal breath sounds. Musculoskeletal: Cervical back: Full passive range of motion without pain. Right lower le+ Pitting Edema present. Left lower le+ Pitting Edema present. Skin: General: Skin is cool. Neurological: Mental Status: He is alert and oriented to person, place, and time. Psychiatric: Attention and Perception: Attention normal. Mood and Affect: Mood normal. Behavior: Behavior is cooperative. No Known Allergies Current Outpatient Medications Medication Instructions acetaminophen (TYLENOL) 650 mg, oral, Every 4 hours PRN aspirin 81 mg, oral, Daily atorvastatin (LIPITOR) 80 mg, oral, Daily cetirizine (ZYRTEC) 10 mg, oral, Daily PRN clopidogrel (PLAVIX) 75 mg, oral, Daily DULoxetine (Cymbalta) [address] capsule 1 capsule, Daily empagliflozin (JARDIANCE) 10 mg, oral, Daily furosemide (LASIX) 20 mg, oral, 2 times daily metoprolol succinate XL (TOPROL-XL) 100 mg, oral, Daily, Do not crush or chew. multivitamin with minerals tablet 1 tablet, oral, Daily nicotine (Nicoderm CQ) 14 mg/24 hr patch 1 patch, transdermal, Every 24 hours oxyCODONE-acetaminophen (Percocet) 10-325 mg tablet 1 tablet, oral, 4 times daily PRN sacubitriL-valsartan (Entresto) 49-51 mg tablet 1 tablet, oral, 2 times daily spironolactone (ALDACTONE) 25 mg, oral, Daily Problem List Items Addressed This Visit BMI 33.0-33.9,adult Edema of left upper arm - Primary Relevant Orders Vascular US upper extremity venous duplex left Volume overload Relevant Medications spironolactone (Aldactone) 25 mg tablet furosemide (Lasix) 20 mg tablet Other Relevant Orders Basic Metabolic Panel B-Type Natriuretic Peptide Follow Up In Cardiology Currently attempting to quit smoking 4 - 10 per day Did better on nicoderm patches - will provide Continued every day tobacco use. Have reviewed the negative cardiovascular impact of nicotine. Relevant Medications nicotine (Nicoderm CQ) 14 mg/24 hr patch Other Visit Diagnoses Coronary arteriography abnormal Relevant Medications atorvastatin (Lipitor) 80 mg tablet Acute systolic heart failure (CMS/HCC) Relevant Medications empagliflozin (Jardiance) 10 mg Plan: Through informed decision making process incorporating patients unique circumstances, the followingtreatment plan will be initiated: 1. Prescription drug management of cardiovascular medication for efficacy, adherence to treatment, side effect assessment and polypharmacy. Current treatment clinically warranted and to continue withfollowing modifications: - Increase furosemide to 40mg daily (take 2 of what you have) - Increase spironolactone to whole tablet daily (25mg) - Add nicoderm patches 2. Venous duplex LUE (pain, edema) 3. Labs (chem6, BTNP) 4. Return for follow-up; in the interim, contact the office if new symptoms arise. CAD ENGINEER one week Odilia Ernandez MSN, 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, PMHNP-[facility] Please excuse any errors in grammar or translation related to this dictation. Voice recognition software was utilized to prepare this document. documented in this [facility] Work Phone: [phone]) 976-463303-12-2024 Instructions* Patient Instructions* BEATRICE Johnson - 10/15/2023 2:00 PM EDT Please bring all medicines, vitamins, [...] Current treatment clinically warranted and to continue withfollowing modifications: - Increase furosemide to 40mg daily (take 2 of what you have) - Increase spironolactone to whole tablet daily (25mg) - Add nicoderm patches 2. Venous duplex LUE (pain, edema) 3. Labs (chem6, BTNP) 4. Return for follow-up; in the interim, contact the office if new symptoms arise. CAD ENGINEER one week documented [facility] Work Phone: [phone]) 312-446611-30-2023 Evaluation + Plan note* Assessment & Plan Note - BEATRICE Johnson - 07/04/2023 10:08 AM ESTAssociated Problem(s): Shortness of breath Remains a persistent complaint. Short of breath at rest and with exertion. No evidence orthopnea orPND. No benefit from initiation of diuretic. Former smoker but denies history of COPD. We will complete PFTs [facility] Work Phone: [phone] Miscellaneous Notes* Assessment & Plan Note - BEATRICE Johnson - 07/04/2023 10:08 AM ESTAssociated Problem(s): Shortness of breath Remains a persistent complaint. Short of breath at rest and with exertion. No evidence orthopnea orPND. No benefit from initiation of diuretic. Former smoker but denies history of COPD. We will complete PFTs * Assessment & Plan Note - BEATRICE Johnson - 07/04/2023 10:07 AM EST Associated Problem(s): BMI 30.0-30.9,adult Reviewed the merits of healthy lifestyle choices on overall cardiovascular health. * Assessment & Plan Note - BEATRICE Johnson - 07/04/2023 10:07 AM EST Associated Problem(s): Hyperlipemia Tolerating high intensity Due for lipids Aug 2023 * Assessment & Plan Note - BEATRICE Johnson - 07/04/2023 10:06 AM EST Associated Problem(s): Cardiomyopathy, ischemic ICM HFrEF 30-35% post-op May 2023 TTE [...] Has repeat echo scheduled Jul 16, 2023 * Assessment & Plan Note - BEATRICE Johnson - 07/04/2023 10:02 AM EST Associated Problem(s): HTN (hypertension) optimal in office * Assessment & Plan Note - BEATRICE Johnson - 07/04/2023 10:02 AM EST Associated Problem(s): Atherosclerotic heart disease of [place] coronary artery with unspecified angina pectoris (CMS/HCC) May 03, 2023 Anterior STEMI Two-vessel PCI of the diagonal branch & the ramus branch with subsequent intra- aortic balloon pump placement. He had chronic total occlusion of the mid LAD he was then transferred to [facility] : May 07, 2023 CABG ALVAREZ-LAD SVG-OM * Assessment & Plan Note - BEATRICE Johnson - 07/02/2023 1:55 PM EST Associated Problem(s): Former smoker Start at 17 y/o Quit 2007 - 2019 pack per day last 4 years Has been able to abstain since discharge Using nicoderm patches [facility] Work Phone: [phone]) [phone] Evaluation + Plan note* Assessment & Plan Note - BEATRICE Johnson - 07/04/2023 10:07 AM ESTAssociated Problem(s): BMI 30.0-30.9,adult Reviewed the merits of healthy lifestyle choices on overall cardiovascular health. [facility] Work Phone: [phone]) [phone] Evaluation + Plan note* Assessment & Plan Note - BEATRICE Johnson - 07/04/2023 10:07 AM ESTAssociated Problem(s): Hyperlipemia Tolerating high intensity Due for lipids Aug 2023 [facility] Work Phone: [phone] Evaluation + Plan note* Assessment & Plan Note - BEATRICE Johnson - 07/04/2023 10:06 AM ESTAssociated Problem(s): Cardiomyopathy, ischemic ICM HFrEF 30-35% post-op May 2023 TTE [...] Has repeat echo scheduled Jul 16, 2023 [facility] Work Phone: [phone] Evaluation + Plan note* Assessment & Plan Note - BEATRICE Johnson - 07/04/2023 10:02 AM ESTAssociated Problem(s): HTN (hypertension) optimal in office [facility] Work Phone: [phone] Evaluation + Plan note* Assessment & Plan Note - BEATRICE Johnson - 07/04/2023 10:02 AM ESTAssociated Problem(s): Atherosclerotic heart disease of [place] coronary artery with unspecified sapna na pectoris (CMS/HCC) May 03, 2023 Anterior STEMI Two-vessel PCI of the diagonal branch & the ramus branch with subsequent intra- aortic balloon pump placement. He had chronic total occlusion of the mid LAD he was then transferred to [facility] : May 07, 2023 CABG ALVAREZ-LAD SVG-OM [facility] Work Phone: [phone] Evaluation + Plan note* Assessment & Plan Note - BEATRICE Johnson - 07/02/2023 1:55 PM ESTAssociated Problem(s): Former smoker Start at 17 y/o Quit 2007 - 2019 pack per day last 4 years Has been able to abstain since discharge Using nicoderm patches [facility] Work Phone: [phone] History of Present illness Narrative* BEATRICE Johnson - 07/02/2023 1:30 PM EST Chief Complaint I am still short of breath Reason for Visit Add on due to complaints SOB Patient presents to the office today for outpatient follow-up. Last evaluated in clinic by Abdelrahman 2 weeks ago. At that time, added Lasix 20 mg daily. He was seen by cardiothoracic surgery and told he was good to go . Presents today ambulatory with steady gait. Accompanied by patient Patient denies any hospitalizations or significant changes to interval medical history since last office follow-up. History of Present Illness Patient presents today reporting no energy and feeling worse than I did before my surgery . He reports persistent shortness of breath with exertion, short of breath at rest. There is no evidence of orthopnea or PND. No exertional chest pain. No evidence of volume overload. Denies dizziness or lightheadedness. In reviewing concomitant medication he has not been taking Entresto since discharge. He has tobacco history, has been able to abstain since discharge. Denies any prior pulmonary history or testing. Recent chest x-ray with no acute findings, minimal left pleural effusion. Start cardiac rehab on Saturday. Is also asking questions about clearance for shoulder surgery and sinus surgery, no date scheduled. Patient reports that overall has complaint(s) of shortness of breath. Continued shortness of breath does not seem consistent with decompensated heart failure. We will complete PFTs. RRR no PAF Needs to start Entresto. Review of Systems Constitutional: Positive for malaise/fatigue. Cardiovascular: Negative for chest pain, dyspnea on exertion, irregular heartbeat, leg swelling, near-syncope, orthopnea, palpitations, paroxysmal nocturnal dyspnea and syncope. Respiratory: Positive for shortness of breath. Visit Vitals BP 114/70 (BP Location: Left arm, Patient Position: Sitting) Pulse 68 Ht 1.727 m (5' 8 ) Wt 91.2 kg (201 lb) BMI 30.56 kg/m Smoking Status Former BSA 2.09 m Physical Exam Vitals and nursing note reviewed. [...] Affect: Mood normal. Behavior: Behavior is cooperative. No Known Allergies Current Outpatient Medications Medication Instructions acetaminophen (TYLENOL) 650 mg, oral, Every 4 hours PRN aspirin 81 mg, oral, Daily atorvastatin (LIPITOR) 80 mg, oral, Daily cetirizine (ZYRTEC) 10 mg, oral, Daily PRN clopidogrel (PLAVIX) 75 mg, oral, Daily DULoxetine (CYMBALTA) 30 mg, oral, Every 24 hours empagliflozin (JARDIANCE) 10 mg, oral, Daily furosemide (LASIX) 20 mg, oral, Daily, Then 1 tab (20mg) by mouth daily as needed for weight gain metoprolol succinate XL (TOPROL-XL) 100 mg, oral, Daily, Do not crush or chew. multivitamin with minerals tablet 1 tablet, oral, Daily nicotine (Nicoderm CQ) 21 mg/24 hr patch 1 patch, transdermal, Every 24 hours oxyCODONE-acetaminophen (Percocet) 10-325 mg tablet 1 tablet, oral, 4 times daily PRN pantoprazole (PROTONIX) 40 mg, oral, Daily before breakfast, Do not crush, chew, or split. sacubitriL-valsartan (Entresto) 24-26 mg tablet 1 tablet, oral, 2 times daily sertraline HCl (ZOLOFT ORAL) 10 mg, oral, Daily spironolactone (ALDACTONE) 12.5 mg, oral, Daily tiZANidine (Zanaflex) 4 mg capsule oral Assessment: Former smoker Start at 17 y/o Quit 2007 - 2019 pack per day last 4 years Has been able to abstain since discharge Using nicoderm patches Atherosclerotic heart disease of [place] coronary artery with unspecified angina pectoris (CMS/HCC) May 03, 2023 Anterior STEMI Two-vessel PCI of the diagonal branch & the ramus branch with subsequent intra- aortic balloon pump placement. He had chronic total occlusion of the mid LAD he was then transferred to [facility] : May 07, 2023 CABG ALVAREZ-LAD SVG-OM HTN (hypertension) optimal in office Cardiomyopathy, ischemic ICM HFrEF 30-35% post-op May 2023 TTE [...] Has repeat echo scheduled Jul 16, 2023 Hyperlipemia Tolerating high intensity Due for lipids Aug 2023 BMI 30.0-30.9,adult Reviewed the merits of healthy lifestyle choices on overall cardiovascular health. Shortness of breath Remains a persistent complaint. Short of breath at rest and with exertion. No evidence orthopnea orPND. No benefit from initiation of diuretic. Former smoker but denies history of COPD. We will complete PFTs Plan: Through informed decision making process incorporating patients unique circumstances, the followingtreatment plan will be initiated: 1. Prescription drug management of cardiovascular medication for efficacy, adherence to treatment, side effect assessment and polypharmacy. Current treatment clinically warranted and to continue withfollowing modifications: - Begin Entresto 24/26mg twice daily 2. PFTs (former smoker, SOB exertion/rest) 3. Labs in one week (chem6, bnp) 4. Return for follow-up; in the interim, contact the office if new symptoms arise. CAD ENGINEER 3 weeks Odilia Ernandez MSN, 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, PMHNP-BC [facility] Please excuse any errors in grammar or translation related to this dictation. Voice recognition software was utilized to prepare this document. documented in this encounterSt. [facility] Work Phone: [phone] 123-563711-28-2023 Instructions* Patient Instructions* BEATRICE Johnson - 07/02/2023 1:30 PM EST Please bring all medicines, vitamins, and herbal [...] Current treatment clinically warranted and to continue withfollowing modifications: - Begin Entresto 24/26mg twice daily 2. PFTs (former smoker, SOB exertion/rest) 3. Labs in one week (chem6, bnp) 4. Return for follow-up; in the interim, contact the office if new symptoms arise. CAD ENGINEER 3 weeks documented in this encounterSt. [facility] Work Phone: [phone] [phone] History of Present illness Narrative* Ottoniel Trevino MD PhD - 06/21/2023 9:45 AM EST Patient is recovering well after his recent STEMI and emergent CABG. Sternum is stable, all incisions are healing well. He has no lower extremities edema. Patient does c/o some SOB with exertion. I think at this stage patient would most benefit from aggressive medical management of his HF symptoms related to severe ICMP with LVEF around 15-20%. Patient will f/u with his drop forge operator - Dr. Quick. documented in this encounterSt. [facility] Work Phone: [phone] History of Present illness Narrative* Alyssa Quick, DO - 06/18/2023 1:30 PM EST Subjective Morgan Latham is a 57 y.o. male Chief Complaint Follow-up 57-year-old gentleman returns following recent two-vessel CABG performed on May 08. He sustainedanterior STEMI on May 03, was transferred to [facility] and underwent two-vessel PCIof the diagonal branch of the ramus branch with subsequent intra-aortic balloon pump placement. He had chronic total occlusion of the mid LAD he was then transferred to [facility] and underwent revascularization with a ALVAREZ to the LAD and vein graft to the OM branch with Dr. Chidi Pressley withan overall excellent result. His left ventricular function remains severely impaired by last echo at 30 to 35%. He still has the urge to smoke and is asking for assistance to quit smoking and therefore we will provide nicotine patches. He ran out of most of his medications all of which are appropriate guideline directed medical therapies for heart failure with reduced left ventricular function and therefore we will renew all of his meds as reviewed per his chart, discharge summary. He feels much better his only issues currently are shortness of breath and fatigue. He is now broaching 6 weeks from his original event, will refer him to cardiac rehab at [facility], reassess his chemistry and BNP profiles, reinitiate all medical therapies, smoking cessationcounseling for 3 to 5 minutes, initiate NicoDerm patch 21 mg for the next 2 to 4 weeks then 14 mg or afterwards, follow- up with nurse practitioner in 12 weeks and myself thereafterwards. Review of Systems Cardiovascular: Positive for dyspnea on exertion. All other systems reviewed and are negative. Visit Vitals BP 122/72 (BP Location: Right arm, Patient Position: Sitting) Pulse 74 Ht 1.702 m (5' 7 ) Wt 90.3 kg (199 lb) BMI 31.17 kg/m Smoking Status Every Day BSA 2.07 m Objective Physical Exam Constitutional: Appearance: Normal appearance. He is normal weight. HENT: Nose: Nose normal. Neck: Vascular: No carotid bruit. Cardiovascular: Rate and Rhythm: Normal rate. Pulses: Normal pulses. Heart sounds: Normal heart sounds. Pulmonary: Effort: Pulmonary effort is normal. Abdominal: General: Bowel sounds are normal. Palpations: Abdomen is soft. Genitourinary: Rectum: Normal. Musculoskeletal: General: Normal range of motion. Cervical back: Normal range of motion. Right lower leg: No edema. Left lower leg: No edema. Skin: General: Skin is warm and dry. Neurological: General: No focal deficit present. Mental Status: He is alert. Psychiatric: Mood and Affect: Mood normal. Behavior: Behavior normal. Thought Content: Thought content normal. Judgment: Judgment normal. Current Medications Current Outpatient Medications: acetaminophen (Tylenol) 325 mg tablet, Take 2 tablets (650 mg) by mouth every 4 hours if needed formild pain (1 - 3) or moderate pain (4 - 6)., Disp: , Rfl: aspirin 81 mg EC tablet, Take 1 tablet (81 mg) by mouth once daily., Disp: 30 tablet, Rfl: atorvastatin (Lipitor) 80 mg tablet, Take 1 tablet (80 mg) by mouth once daily., Disp: 30 tablet, Rfl: 0 cetirizine (ZyrTEC) 10 mg tablet, Take 1 tablet (10 mg) by mouth once daily as needed for allergies., Disp: , Rfl: clopidogrel (Plavix) 75 mg tablet, Take 1 tablet (75 mg) by mouth once daily. Do not start before May 16, 2023., Disp: 30 tablet, Rfl: 0 docusate sodium (Colace) 100 mg capsule, Take 1 capsule (100 mg) by mouth 2 times a day as needed for constipation., Disp: , Rfl: DULoxetine (Cymbalta) [address] capsule, Take 1 capsule (30 mg) by mouth once every 24 hours., Disp:, Rfl: empagliflozin (Jardiance) 10 mg, Take 1 tablet (10 mg) by mouth once daily. Do not start before May 15, 2023., Disp: 30 tablet, Rfl: 0 metoprolol succinate XL (Toprol-XL) 100 mg 24 hr tablet, Take 1 tablet (100 mg) by mouth once daily. Do not crush or chew. Do not start before May 16, 2023., Disp: 30 tablet, Rfl: 0 multivitamin with minerals tablet, Take 1 tablet by mouth once daily. Do not start before May 16, 2023., Disp: , Rfl: oxyCODONE-acetaminophen (Percocet) 10-325 mg tablet, Take 1 tablet by mouth 4 times a day as neededfor severe pain (7 - 10)., Disp: , Rfl: pantoprazole (ProtoNix) 40 mg EC tablet, Take 1 tablet (40 mg) by mouth once daily in the morning. Take before meals. Do not crush, chew, or split. Do not start before May 16, 2023., Disp: 30 tablet, Rfl: 0 sacubitriL-valsartan (Entresto) 24-26 mg tablet, Take 1 tablet by mouth 2 times a day., Disp: 60 tablet, Rfl: 0 spironolactone (Aldactone) 25 mg tablet, Take 0.5 tablets (12.5 mg) by mouth once daily. Do not start before May 16, 2023., Disp: 15 tablet, Rfl: 0 tiZANidine (Zanaflex) 4 mg capsule, Take by mouth., Disp: , Rfl: diclofenac (Voltaren) 75 mg EC tablet, Take by mouth., Disp: , Rfl: furosemide (Lasix) 20 mg tablet, Take 1 tablet (20 mg) by mouth once daily for 5 days. Then 1 tab (20mg) by mouth daily as needed for weight gain Do not start before May 16, 2023., Disp: 10 tablet, Rfl: 0 Assessment/Plan 1. ST elevation myocardial infarction (STEMI), unspecified artery (CMS/HCC) 2. 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, unspecified whether little shell tribe or transplanted heart (CMS/HCC) 3. Hypertension, unspecified type 4. Coronary arteriography abnormal 5. Acute systolic heart failure (CMS/HCC) 6. S/P CABG x 2 7. HFrEF (heart failure with reduced ejection fraction) (CMS/HCC) 8. Acute DE, anterior wall (CMS/HCC) documented in this [facility] Work Phone: [phone]) 312-591811-14-2023 Instructions* Patient Instructions* Cesar Wadsworth MA - 06/18/2023 1:30 PM EST Please bring all medicines, vitamins, and herbal supplements with you when you come to the office. Prescriptions will not be filled unless you are compliant with your follow up appointments or have a follow up appointment scheduled as per instruction of your physician. Refills should be requested at the time of your visit. documented in this [facility] Work Phone: [phone]) 438-936210-11-2023 Hospital course Narrative* Jeanette Mcnair Ana, PRANAV-FOOD AND BEVERAGE OUTLETS MANAGER - 05/15/2023 3:41 PM EDT Cardiac Surgery Inpatient Discharge Summary BRIEF OVERVIEW Admitting Provider: Ottoniel Trevino MD PhD Discharge Provider: Ottoniel Trevino MD PhD Primary Care Physician at Discharge: No primary care provider on file. None Human Resource Intern at Discharge: Heart Failure Follow-up with Sherine Anne NP Admission Date: 05/03/2023 Discharge Date: 05/15/2023 Primary Discharge Diagnosis S/p CABG x 2 Secondary Discharge Diagnosis CAD, STEMI, HFrEF Discharge Disposition Final discharge disposition not confirmed Code Status at Discharge: Full Code Active Issues Requiring Follow-up None Outpatient Follow-Up Future Appointments Date Time Provider Department Center 05/23/2023 11:20 AM [facility] [id number] NURSE [id number] Academic 05/24/2023 11:20 AM Sherine Anne APRN-BUNGY JUMP MASTER [id number] [place] 06/21/2023 9:45 AM Ottoniel Trevino MD PhD [id number] [facility] Test Results Pending at Discharge Pending Labs Order Current Status B-type Natriuretic Peptide In process Extra Urine Cadena Tube In process POCT fingerstick glucose In process Urinalysis with Reflex Microscopic and Culture In process DETAILS OF HOSPITAL STAY Presenting Problem/History of Present Illness 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 male presenting with Mr. Latham 57yo M with PMHx of HTN,DLD, GERD, tobacco use disorder and chronic pain (rotator cuff, spinal stenosis, lumbar radiculopathy) who presented to the ED with cc of chest pain. Pt noted that his CP started about 3 weeks ago. Initially it would last 3 mins and would only happen at night, it was always substernal and was 10/10in severity. The pain would go away on its own so pt didn't do anything about it. The pain cont. and started lasting longer and longer each time, eventually happening even in the morning. Pt was not exerting himself when this was happening and almost all of these times, he was resting in bed. Pt became scared and decided to seek emergent medical care. Pt denies n/v/c/d, no SOB or cold/cough like symptoms, no burning with urination, increased urinary frequency or urinary urgency. OSH COURSE: He arrived at the [place] [facility] and was seen to have high lateral/anterior ST elevated in leads I andaVL with reciprocal inferolateral changes/ ST depression and elevated trops. 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 Pt was seen to have multivessel disease on [facility], a balloon pump was placed and pt was started on heparin gtt, and nitro gtt and transferred to [facility] for CABG eval. OPERATIVE PROCEDURES Dr Trevino on 05/07/23 Creation Bypass Graft Coronary Artery [place] CORONARY ARTERY BYP W/VEIN & ARTERY GRAFT 2 VEIN Via median sternotomy on cardiopulmonary bypass urgent coronary artery revascularization 1. ALVAREZ to LAD 2. Saphenous vein graft to CTICU course Transfer to 3 on 05/10 Floor Course: - Rhythm: - Patient was diuresed for fluid volume overload post cardiac surgery; Preop weight: 86.9kg, discharge wt: 88.5kg - On ASA, statin, BB, Entresto, spironolactone, Plavix, furosemide by discharge - Heart failure followed for HFrEF - Epicardial wires CUT on 05/15/23 - 2v CXR done 05/11/23: 1. Similar mild bibasilar atelectasis and small pleural effusions 2. Stable enlargement of cardiomediastinal silhouette without cornelio pulmonary edema or pneumothorax. - Postop echo done 05/12/23: EF 30-35%. There is global hypokinesis of the left ventricle with minorregional variations. normal right ventricular global systolic function. no evidence of aortic valveregurgitation. no evidence of mitral valve regurgitation. trace tricuspid regurgitation. no pericardial effusion noted - Cardiac rehab referral was placed - PT recs home with homecare - Discharge to home Discharged on 05/15/23 PAST MEDICAL HISTORY: - Not remarkable except per HPI PAST SURGICAL HISTORY: - Carpel tunnel surgery L 1978 - Bicep reconstruction 2019 R. 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 - Functional Status: Independent with ADLs and iADLs - Tobacco Hx: Used to smoke about a PPD, now cut down, to -> 1 PPD, about 20+ PPY hx - Alcohol Hx: Denies - Illicit Drug Hx: Denies Treatments: cardiac meds: metoprolol and furosemide, Entresto, Jardiance, spironolactone Consults: cardiology Physical Exam at Discharge Discharge Condition: good Heart Rate: 87 Resp: 19 BP: 116/70 Temp: 36.6 C (97.9 F) Weight: 88.5 kg (195 lb 1.7 oz) Physical Exam Discharge Medication List Medication List START taking these medications acetaminophen 325 mg tablet; Commonly known as: Tylenol; Take 2 tablets (650 mg) by mouth every 4 hours if needed for mild pain (1 - 3) or moderate pain (4 - 6). aspirin 81 mg EC tablet; Take 1 tablet (81 mg) by mouth once daily. atorvastatin 80 mg tablet; Commonly known as: Lipitor; Take 1 tablet (80 mg) by mouth once daily. clopidogrel 75 mg tablet; Commonly known as: Plavix; Take 1 tablet (75 mg) by mouth once daily. Do not start before May 16, 2023.; Start taking on: May 16, 2023 docusate sodium 100 mg capsule; Commonly known as: Colace; Take 1 capsule (100 mg) by mouth 2 times a day as needed for constipation. Entresto 24-26 mg tablet; Generic drug: sacubitriL-valsartan; Take 1 tablet by mouth 2 times a day. Ferrex 150 150 mg iron capsule; Generic drug: iron polysaccharides; Take 1 capsule (150 mg) by mouth once daily. Do not start before May 16, 2023.; Start taking on: May 16, 2023 furosemide 20 mg tablet; Commonly known as: Lasix; Take 1 tablet (20 mg) by mouth once daily for 5 days. Then 1 tab (20mg) by mouth daily as needed for weight gain Do not start before May 16, 2023.; Start taking on: May 16, 2023 Jardiance 10 mg; Generic drug: empagliflozin; Take 1 tablet (10 mg) by mouth once daily. Do not start before May 15, 2023. metoprolol succinate XL 100 mg 24 hr tablet; Commonly known as: Toprol-XL; Take 1 tablet (100 mg) by mouth once daily. Do not crush or chew. Do not start before May 16, 2023.; Start taking on: May 16, 2023 multivitamin with minerals tablet; Take 1 tablet by mouth once daily. Do not start before May 16, 2023.; Start taking on: May 16, 2023 pantoprazole 40 mg EC tablet; Commonly known as: ProtoNix; Take 1 tablet (40 mg) by mouth once daily in the morning. Take before meals. Do not crush, chew, or split. Do not start before May 16, 2023.; Start taking on: May 16, 2023 polyethylene glycol 17 gram packet; Commonly known as: Glycolax, Miralax; Take 17 g by mouth once daily as needed (constipation). spironolactone 25 mg tablet; Commonly known as: Aldactone; Take 0.5 tablets (12.5 mg) by mouth once daily. Do not start before May 16, 2023.; Start taking on: May 16, 2023 CONTINUE taking these medications cetirizine 10 mg tablet; Commonly known as: ZyrTEC DULoxetine [address] capsule; Commonly known as: Cymbalta gabapentin 300 mg capsule; Commonly known as: Neurontin oxyCODONE-acetaminophen 10-325 mg tablet; Commonly known as: Percocet STOP taking these medications celecoxib 200 mg capsule; Commonly known as: CeleBREX omeprazole [address] capsule; Commonly known as: PriLOSEC On day of discharge, vital signs were stable and no acute distress was noted. All questions were and answered and much support was given. After VS and labs were reviewed it was determined the patientwas stable for discharge. Hospital day of discharge management- spent >30 minutes coordinating the discharge and counseling/educating patient and family regarding discharge instructions. documented in this encounterSt. [facility] Work Phone: [phone]) 146-949510-11-2023 Hospital Discharge instructions* Discharge Instructions* CHRIS Holt - 05/15/2023 3:40 PM EDT Discharge coordinators have tried to find a home care nursing agency, however, they have been unsuccessful at discharge. They will continue to look for a home care agency but if they cannot find one you will need to go to the nearest lab to have blood drawn the week following discharge. documented in this encounterSt. [facility] Work Phone: [phone] 704-121310-11-2023 History of Present illness Narrative* CHRIS Holt - 05/15/2023 12:12 PM EDT CARDIAC SURGERY DAILY PROGRESS NOTE Morgan Latham is a 57 y.o. male presenting with Mr. Latham 57yo M with PMHx of HTN, DLD, GERD, tobacco use disorder and chronic pain (rotator cuff, spinal stenosis, lumbar radiculopathy) who presented to the ED with cc of chest pain. Pt noted that his CP started about 3 weeks ago. Initially it would last 3 mins and would only happen at night, it was always substernal and was 10/10 in severity. The pain would go away on its own so pt didn't do anything about it. The pain cont. and started lasting longer and longer each time, eventually happening even in the morning. Pt was not exerting himselfwhen this was happening and almost all of these times, he was resting in bed. Pt became scared and decided to seek emergent medical care. Pt denies n/v/c/d, no SOB or cold/cough like symptoms, no burning with urination, increased urinary frequency or urinary urgency. OSH COURSE: He arrived at the [place] [facility] and was seen to have high lateral/anterior ST elevated in leads I andaVL with reciprocal inferolateral changes/ ST depression and elevated trops. 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 Pt was seen to have multivessel disease on [facility], a balloon pump was placed and pt was started on heparin gtt, and nitro gtt and transferred to [facility] for CABG eval. OPERATIVE PROCEDURES Dr Trevino on 05/07/23 Creation Bypass Graft Coronary Artery [place] CORONARY ARTERY BYP W/VEIN & ARTERY GRAFT 2 VEIN Via median sternotomy on cardiopulmonary bypass urgent coronary artery revascularization 1. ALVAREZ to LAD 2. Saphenous vein graft to CTICU course Transfer to 3 on 05/10 Objective BP 123/74 (BP Location: Left arm, Patient Position: Lying) Pulse 89 Temp 36.6 C (97.9 F) (Temporal) Resp 18 Ht 1.727 m (5' 7.99 ) Wt 88.5 kg (195 lb 1.7 oz) SpO2 100% BMI 29.67 kg/m Pain Score: 6 3 Day Weight Change: 0.967 kg (2 lb 2.1 oz) per day Heart Rate: [80-92] Temp: [36.1 C (97 F)-36.6 C (97.9 F)] Resp: [16-18] BP: (104-123)/(65-82) Weight: [88.5 kg (195 lb 1.7 oz)] SpO2: [94 %-100 %] Intake and Output Intake/Output Summary (Last 24 hours) at 05/15/2023 1212 Last data filed at 05/15/2023 1022 Gross per 24 hour Intake 1440 ml Output 300 ml Net 1140 ml Physical Exam Physical Exam Constitutional: Appearance: Normal appearance. HENT: Head: Normocephalic and atraumatic. Mouth/Throat: Mouth: Mucous membranes are moist. Pharynx: Oropharynx is clear. Eyes: Conjunctiva/sclera: Conjunctivae normal. Comments: Right eye prosthetic glass eye Cardiovascular: Rate and Rhythm: Normal rate and regular rhythm. Pulses: Normal pulses. Heart sounds: Normal heart sounds. Comments: NSR/ST 80-103 Pulmonary: Effort: Pulmonary effort is normal. Breath sounds: Normal breath sounds. Comments: Diminished breath sounds Sternum stable Abdominal: General: Abdomen is flat. Palpations: Abdomen is soft. Comments: +BM 05/13 Genitourinary: Comments: Voids independently Musculoskeletal: Cervical back: Neck supple. Skin: Capillary Refill: Capillary refill takes less than 2 seconds. Comments: MSI well approx, no s/sx of infections Neurological: General: No focal deficit present. Mental Status: He is alert and oriented to person, place, and time. Psychiatric: Mood and Affect: Mood normal. Behavior: Behavior normal. Medications Scheduled medications acetaminophen, 650 mg, oral, q4h aspirin, 81 mg, oral, Daily atorvastatin, 80 mg, oral, Daily bisacodyl, 10 mg, rectal, Daily clopidogrel, 75 mg, oral, Daily docusate sodium, 100 mg, oral, BID DULoxetine, 30 mg, oral, Daily empagliflozin, 10 mg, oral, Daily influenza, 0.5 mL, intramuscular, During hospitalization furosemide, 20 mg, oral, Daily gabapentin, 300 mg, oral, q8h heparin (porcine), 5,000 Units, subcutaneous, q8h ipratropium-albuteroL, 3 mL, nebulization, q6h iron polysaccharides, 150 mg, oral, Daily lidocaine, 1 patch, transdermal, Daily melatonin, 5 mg, oral, Nightly methocarbamol, 500 mg, oral, q6h CARMEN metoprolol succinate XL, 100 mg, oral, Daily multivitamin with minerals, 1 tablet, oral, Daily pantoprazole, 40 mg, oral, Daily before breakfast perflutren protein A microsphere, 0.5 mL, intravenous, Once in imaging polyethylene glycol, 17 g, oral, BID sacubitriL-valsartan, 0.5 tablet, oral, BID spironolactone, 12.5 mg, oral, Daily Continuous medications PRN medications PRN medications: naloxone, oxyCODONE, oxyCODONE Labs Results for orders placed or performed during the hospital encounter of 05/03/23 (from the past 24 hour(s)) CBC Result Value Ref Range WBC 9.3 4.4 - 11.3 x10*3/uL nRBC 0.0 0.0 - 0.0 /100 WBCs RBC 2.97 (L) 4.50 - 5.90 x10*6/uL Hemoglobin 8.8 (L) 13.5 - 17.5 g/dL Hematocrit 28.1 (L) 41.0 - 52.0 % MCV 95 80 - 100 fL MCH 29.6 26.0 - 34.0 pg MCHC 31.3 (L) 32.0 - 36.0 g/dL RDW 13.5 11.5 - 14.5 % Platelets 496 (H) 150 - 450 x10*3/uL MPV 9.8 7.5 - 11.5 fL Renal Function Panel Result Value Ref Range Glucose 123 (H) 74 - 99 mg/dL Sodium 137 136 - 145 mmol/L Potassium 4.4 3.5 - 5.3 mmol/L Chloride 102 98 - 107 mmol/L Bicarbonate 26 21 - 32 mmol/L Anion Gap 13 10 - 20 mmol/L Urea Nitrogen 19 6 - 23 mg/dL Creatinine 0.96 0.50 - 1.30 mg/dL eGFR >90 >60 mL/min/1.73m*2 Calcium 9.5 8.6 - 10.6 mg/dL Phosphorus 4.2 2.5 - 4.9 mg/dL Albumin 3.6 3.4 - 5.0 g/dL Magnesium Result Value Ref Range Magnesium 2.08 1.60 - 2.40 mg/dL XR CHEST 2 VIEW WITH OBLIQUES; 05/11/2023 9:27 am INDICATION: Signs/Symptoms:s/p CABG. COMPARISON: Chest radiograph 05/10/[address] scan 05/05/2023 FINDINGS: PA and lateral radiographs, including dual energy subtraction images, are available for interpretation. In addition, single plane tomographic images are also available. Status post prior median sternotomy and CABG with intact sternal cerclage wires. The cardiomediastinal silhouette is stable in size and configuration,persistently enlarged. There is similar mild bibasilar atelectasis with small pleural effusions, better seen on lateral projection. There is no pulmonary edema, in setting of low lung volumes. There is no pneumothorax. No acute osseous abnormality. IMPRESSION: 1. Similar mild bibasilar atelectasis and small pleural effusions. 2. Stable enlargement of cardiomediastinal silhouette without cornelio pulmonary edema or pneumothorax. Signed by: Mauro Lund 05/11/2023 10:01 AM Dictation workstation: [id number] IMPRESSION & PLAN: POD #8 s/p CABG x2 ALVAREZ-LAD; SVG graft - Increase activity/ ambulation; PT/OT - Encourage IS, C/DB; respiratory therapy; wean O2 as tae - Cardiac rehab referral - Continue cardiac meds: ASA, BB, statin, Plavix, empagliflozin, Entresto, spironolactone - Pain and anticonstipation meds - 2v CXR 05/11: 1. Similar mild bibasilar atelectasis and small pleural effusions 2. Stable enlargement of cardiomediastinal silhouette without cornelio pulmonary edema or pneumothorax. - Epicardial wires CUT 05/15/23 - Optimize nutrition and electrolytes Rhythm - Tele: NSR/ST HR 80-103 - Continue metoprolol succinate 100mg daily - Adjust medications as tolerated - Tele until discharge Acute Blood Loss Anemia Hematocrit Date Value Ref Range Status 05/15/2023 28.1 (L) 41.0 - 52.0 % Final 05/14/2023 30.2 (L) 41.0 - 52.0 % Final 05/13/2023 30.6 (L) 41.0 - 52.0 % Final 05/12/2023 30.6 (L) 41.0 - 52.0 % Final - MV, PO Iron x1mo - Daily labs, transfuse as indicated Thrombocytopenia Platelets Date Value Ref Range Status 05/15/2023 496 (H) 150 - 450 x10*3/uL Final 05/14/2023 455 (H) 150 - 450 x10*3/uL Final 05/13/2023 388 150 - 450 x10*3/uL Final 05/12/2023 338 150 - 450 x10*3/uL Final - Etiology likely postop/CPB related - Continue to trend with daily CBCs Volume/Electrolyte Status: Preop wt 86.9; Chronic Systolic HF EF 30- 35%, Ischemic cardiomyopathy - Weight: 88.5, 86.3, 86.2, 84.5, 85.6 - HF following; appreciate recs: --- repeat 2d echo; done 05/13; EF 30-35% --- Stop metoprolol tartrate. Start metoprolol succinate 100 mg PO daily. --- Stop Losartan. Start Entresto 12/13 mg PO bid. --- Start Spironolactone 12.5 mg PO daily. --- Continue Empagliflozin 10 mg PO daily. --- If HR remains persistently >70 bpm, will uptitrate metoprolol as tolerated. --- Please have Pharmacy check insurance coverage for Empagliflozin and Entresto. --- Follow up with outpatient HF clinic as scheduled. --- Will need Cardiac Rehab outpatient. - Adjust diuresis as needed for postop cardiac surgery hypervolemia - Replete electrolytes for hypokalemia/hypomagnesemia/hypophosphatemia as needed - Daily weights and strict I&Os - Daily RFP while admitted - Lasix 20mg PO daily for short course and then prn for weight gain Hypertension - SBP last 24 hours 104-152 - continue BB - metoprolol succinate 100 mg PO daily - increase Entresto 24/26 mg PO bid - Spironolactone 12.5 mg PO daily Hyperlipidemia: -continue statin -follow up lipid panel with PCP/ cardio as appropriate GERD - Cont PPI - Avoid taking pills on an empty stomach - Eat small frequent meals - eat sitting up in the chair - avoid acidic foods Nicotine dependency - offered nicotine replacement - Aggressive pulmonary hygiene - wean O2 for O2 sats > 92% - ABGs PRN - Smoking cessation education was provided to the patient. Cessation encouraged. Physiological and physical aspects of tobacco addiction as well as strategies for quitting were discussed. 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 Team members present: medical team and TCC Plan per medical team: HF team following, adjusting medications Payer: [facility] Status: Inpatient Discharge disposition: Home w/hc however have been unable to find an accepting agency. Potential barriers: none ADOD: 1-2 days Rika Bishop RN * David Reyna MD - 05/14/2023 4:43 PM EDT Subjective Data: Patient reports generalized body pain described as aching . He reports pain on the chest incision site on coughing. He reports slight dizziness but denies syncope. He denies dyspnea on exertion, orthopnea, PND, leg swelling. No documented fever. He walked 10-12 lapses in the unit yesterday. His BP110- 120s/70s. 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 He is tolerating the oralGDMT regimen. Objective Data: Last Recorded Vitals: Vitals: 05/14/23 0846 05/14/23 0949 05/14/23 1017 05/14/23 1342 BP: 152/81 123/82 BP Location: Right arm Right arm Patient Position: Sitting Sitting Pulse: 95 103 91 Resp: 18 18 Temp: 36.1 C (97 F) 36.1 C (97 F) TempSrc: Temporal Temporal SpO2: 98% 94% 97% Weight: Height: Last Labs: LABS: CMP: Recent Labs 05/04/23 1424 05/04/23 1721 05/05/23 0109 05/06/23 0518 05/07/23 0430 05/08/23 0610 05/08/23 1543 05/09/23 0506 05/09/23 1258 05/10/23 0231 05/10/23 1527 05/11/23 1443 05/12/23 1229 05/13/23 1153 05/14/23 0719 NA CANCELED 142 < > 145 < > 143 144 142 141 136 135* 135* 135* 136 136 K CANCELED 3.9 < > 3.9 < > 4.2 3.8 3.4* 3.3* 4.4 3.8 4.6 4.4 4.0 4.3 CL CANCELED 108* < > 106 < > 109* 107 107 107 107 99 96* 96* 96* 98 CO2 CANCELED 26 < > 23 < > 22 22 23 20* 21 22 26 27 28 26 ANIONGAP CANCELED 12 < > 20 < > 16 19 15 17 12 18 18 16 16 16 BUN CANCELED 13 < > 9 < > 18 22 27* 27* 22 19 18 17 17 20 CREATININE CANCELED 1.02 < > 0.87 < > 1.26 1.25 1.04 0.99 0.79 0.90 1.04 1.01 1.08 1.18 EGFR -- 85 < > >90 < > 66 67 83 88 >90 >90 83 86 80 72 MG CANCELED -- < > 2.12 < > 2.32 2.47* 2.29 2.28 1.96 2.09 2.01 2.05 2.09 2.19 ALBUMIN CANCELED 3.8 < > 3.6 < > 3.2* 4.0 3.6 3.6 3.3* 3.7 4.1 3.8 3.9 3.9 ALT CANCELED 31 -- 20 -- -- -- -- -- -- -- -- -- -- -- AST CANCELED 87* -- 30 -- -- -- -- -- -- -- -- -- -- -- BILITOT CANCELED 0.4 -- 0.5 -- -- -- -- -- -- -- -- -- -- -- < > = values in this interval not displayed. CBC: Recent Labs 05/08/23 1543 05/09/23 0506 05/09/23 1258 05/10/23 0231 05/11/23 1443 05/12/23 1229 05/13/23 1153 05/14/23 0719 WBC 13.0* 12.3* 11.8* 10.8 9.7 8.9 10.7 10.9 HGB 10.5* 9.3* 9.8* 8.7* 10.9* 10.1* 9.9* 9.6* HCT 32.1* 28.0* 30.1* 30.7* 33.6* 30.6* 30.6* 30.2* PLT 158 142* 144* 128* 304 338 388 455* MCV 94 94 95 110* 96 93 94 97 COAG: Recent Labs 05/03/23191405/04/23 0220 05/04/23 0615 05/04/23 1259 05/04/23 1424 05/04/23 1704 05/05/23 0109 05/06/23 0518 05/07/23 0430 05/07/23 2358 INR -- -- -- 1.1 CANCELED -- -- -- -- 1.2* HAUF 0.2 0.3 0.2 0.4 -- 0.4 0.5 0.5 0.3 -- ABO: Recent Labs 05/07/23 0430 ABO O HEME/ENDO: Recent Labs 05/04/23 1700 05/06/23 0518 TSH -- 2.93 HGBA1C 5.9* -- CARDIAC: Recent Labs 05/03/23191405/04/23 0220 05/04/23 1424 05/04/23 1721 05/04/23 1729 05/05/23 1859 LDH 603* -- CANCELED 562* -- -- TROPHS 73,550* 53,345* -- -- 22,510* 17,382* MICRO: No results for input(s): ESR , CRP in the last 89129 hours. No results found for the last 90 days. Last I/O: I/O last 3 completed shifts: In: 1760 (20.4 mL/kg) [P.O.:1760] Out: 500 (5.8 mL/kg) [Urine:500 (0.2 mL/kg/hr)] Weight: 86.3 kg Inpatient Medications: Scheduled medications Medication Dose Route Frequency acetaminophen 650 mg oral q4h aspirin 81 mg oral Daily atorvastatin 80 mg oral Daily bisacodyl 10 mg rectal Daily clopidogrel 75 mg oral Daily docusate sodium 100 mg oral BID DULoxetine 30 mg oral Daily empagliflozin 10 mg oral Daily influenza 0.5 mL intramuscular During hospitalization gabapentin 300 mg oral q8h heparin (porcine) 5,000 Units subcutaneous q8h ipratropium-albuteroL 3 mL nebulization q6h iron polysaccharides 150 mg oral Daily lidocaine 1 patch transdermal Daily melatonin 5 mg oral Nightly methocarbamol 500 mg oral q6h CARMEN metoprolol succinate XL 100 mg oral Daily multivitamin with minerals 1 tablet oral Daily pantoprazole 40 mg oral Daily before breakfast perflutren protein A microsphere 0.5 mL intravenous Once in imaging polyethylene glycol 17 g oral BID sacubitriL-valsartan 0.5 tablet oral BID spironolactone 12.5 mg oral Daily PRN medications Medication naloxone oxyCODONE oxyCODONE Continuous Medications Medication Dose Last Rate Physical Exam: Constitutional: General: Well developed adult without acute distress Appearance: Normal appearance. HENT: Head: atraumatic. JVD at the clavicle Eyes: Conjunctiva/sclera: Conjunctivae normal. Cardiovascular: Rate and Rhythm: Normal rate and regular rhythm. Heart sounds: Normal heart sounds. No murmurs or gallups. Extremities: No edema Pulmonary: Effort: Pulmonary effort is normal. No respiratory distress. Breath sounds: Normal breath sounds bilaterally. No wheezing or rales. No cough. Abdominal: General: There is no distension. Active bowel sounds. Palpations: Abdomen is soft and non-tender. Skin: General: Skin is warm and dry. Comments: Median sternotomy incision c/d/I, well approximated Assessment/Plan 57 y/o Male with PMHx of HTN, HLD, active smoker, chronic pain, presenting with severe substernal chest pain, found to have lateral STEMI. LHC showed mid LAD 99% occlusion, severe disease ramus, diagonal branch. LVEF 30%, RWMA of LAD territory and lateral wall. S/p CABG x 2 (ALVAREZ to LAD, SVG to Om1) on 05/07/23. Most recent 2-D echo (05/04/23) revealed LVEF 30-35%, hypokinetic apex, anterior wall and distal segment. #HFrEF, LVEF 30-35% not in overt decompensated state, with adequate perfusion #Ischemic cardiomyopathy/CAD #s/p CABG x 2 (ALVAREZ-LAD, SVG-OM1) on 05/07/23 #Active cigarette smoking Recommendations: -Continue metoprolol succinate 100 mg PO daily. -Increase dose of Entresto 24/26 mg PO bid. -Continue Spironolactone 12.5 mg PO daily. -Continue Empagliflozin 10 mg PO daily. -Repeat serum renal function panel 1 week post-discharge. -From Cardiology perspective, patient appears medically stable for outpatient follow up. HF service will continue to follow. Discussed with HF attending, Dr. Fito Le Signed: David Reyna MD Heart Failure service Associated attestation - Guevara Le MD - 05/14/2023 8:12 PM EDT I saw and evaluated the patient. I personally obtained the miller and critical portions of the historyand physical exam or was physically present for miller and critical portions performed by the resident/fellow. I reviewed the resident/fellow's documentation and discussed the patient with the resident/f gunnar. I agree with the resident/fellow's medical decision making as documented in the note. 57 y.o.M p/w lateral STEMI now s/p ALVAREZ-LAD, S-OM grafting on 05/07 with pre-post surgical HFrEF. Currently optimizing medical therapy with 4 pillars. (BB, ARNI, MRA, SGLT2). Lives in [place] and will need followup on [facility]. * Mayda Og OT - 05/14/2023 12:11 PM EDT Occupational Therapy Evaluation/Treatment Patient Name: Morgan Latham : 1965 Today's Date: 05/14/23 Time Calculation Start Time: 948 Stop Time: 101 Time Calculation (min): 23 min Assessment: OT Assessment: (Pt presents with difficulty with ADLs, decreased strength, decreased balance, decreased endurance, and decreased functional mobility. Pt would benefit from continued OT services to maximize independence in all of these areas. Will continue to follow.) Prognosis: Good Barriers to Discharge: None OT Assessment Results: Decreased ADL status, Decreased upper extremity range of motion, Decreased upper extremity strength, Decreased endurance, Decreased functional mobility, Decreased IADLs Prognosis: Good Barriers to Discharge: None Strengths: Support of Caregivers Plan: Treatment Interventions: ADL retraining, Functional transfer training, UE strengthening/ROM, Endurance training, Equipment evaluation/education, Compensatory technique education OT Frequency: 2 times per week OT Discharge Recommendations: Low intensity level of continued care Equipment Recommended upon Discharge: (hip kit) OT Recommended Transfer Status: Stand by assist, Assist of 1 Treatment Interventions: ADL retraining, Functional transfer training, UE strengthening/ROM, Endurance training, Equipment evaluation/education, Compensatory technique education Subjective Current Problem: 1. Atherosclerotic heart disease of [place] coronary artery with unspecified angina pectoris (CMS/HCC) XR chest 1 view Transthoracic Echo (TTE) Complete Transthoracic Echo (TTE) Complete Case Request Operating Room: Creation Bypass Graft Coronary Artery Case Request Operating Room: Creation Bypass Graft Coronary Artery Anesthesia Intraoperative Transesophageal Echocardiogram Anesthesia Intraoperative Transesophageal Echocardiogram CANCELED: Adult Congenital Transthoracic Echo (TTE) Complete CANCELED: Adult Congenital Transthoracic Echo (TTE) Complete 2. Coronary arteriography abnormal Vascular US carotid artery duplex bilateral Vascular US lower extremity vein mapping bilateral Vascular US carotid artery duplex bilateral Vascular US lower extremity vein mapping bilateral CANCELED: Intraoperative SUNITA CANCELED: Intraoperative SUNITA CANCELED: Intraoperative SUNITA CANCELED: Intraoperative SUNITA CANCELED: Intraoperative SUNITA CANCELED: Intraoperative SUNITA 3. Encounter for other preprocedural examination Vascular US carotid artery duplex bilateral Vascular US lower extremity vein mapping bilateral 4. Other specified symptoms and signs involving the circulatory and respiratory systems Vascular UScarotid artery duplex bilateral 5. ST elevation myocardial infarction (STEMI), unspecified artery (CMS/HCC) CANCELED: Anesthesia Intraoperative Transesophageal Echocardiogram 6. Atherosclerosis of autologous artery coronary artery bypass graft(s) with unstable angina pectoris (CMS/HCC) Anesthesia Intraoperative Transesophageal Echocardiogram 7. Post-op pain Vascular US upper extremity venous duplex left Vascular US upper extremity venous duplex left 8. Acute systolic heart failure (CMS/HCC) Transthoracic Echo (TTE) Complete Transthoracic Echo (TTE) Complete empagliflozin (Jardiance) 10 mg sacubitriL-valsartan (Entresto) 24-26 mg tablet 9. Localized edema Vascular US upper extremity venous duplex left General: OT Received On: 05/14/23 General Reason for Referral: CABGX2 Past Medical History Relevant to Rehab: HTN, DLD, GERD, active smoker, and chronic pain (rotator cuff, spinal stenosis, lumbar radiculopathy) Missed Visit: Yes Missed Visit Reason: (off floor) Family/Caregiver Present: No Prior to Session Communication: Bedside nurse Patient Position Received: Bed, 3 rail up, Alarm off, not on at start of session General Comment: (end of session bed 3 rails alarm off, extended time required in session 2/2 relaxation technqiues 2/2 pt reports anxious with situation) Precautions: Medical Precautions: Fall precautions, Cardiac precautions Post-Surgical Precautions: Move in the Tube Vital Signs: Heart Rate: 95 Patient Position: (supine, HR 106 with fxnl mob) Pain: Pain Assessment Pain Assessment: 0-10 Pain Score: 6 Pain Location: (sx site) Objective Cognition: Overall Cognitive Status: Within Functional Limits Orientation Level: Oriented X4 Confusion Assessment Method (CAM) Acute Onset and Fluctuating Course (1A): No Home Living: Type of Home: House Lives With: (father who is I) Home Adaptive Equipment: (shower chair) Home Layout: (1 level, tub shower) Home Access: No concerns Prior Function: Level of [place]: Independent with ADLs and functional transfers, Independent with homemaking with ambulation, Independent with homemaking with wheelchair 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) Leisure: Enjoys hunting Hand Dominance: Right IADL History: IADL Comments: (I IADLS, +Drives, 2 cats but father able to take care of them) ADL: Eating Assistance: Independent Grooming Assistance: Independent (hand washing standing sink side) Bathing Assistance: (SBA anticipated seated) UE Dressing Assistance: Independent (adjusted gown standing) LE Dressing Assistance: Independent (feet to self I EOB) Toileting Assistance with Device: Independent (standing urinating I toilet) Activities of Daily Living: Grooming Grooming Level of Assistance: (hand washing standing sink side I) LE Bathing LE Bathing Level of Assistance: (OT educated and demo'd LBD with AE for MITT prec, demo'd pre tyingshoes and troy/doff seated feet to self) UE Dressing UE Dressing Level of Assistance: (OT demo'd UBD with MITT) Toileting Toileting Level of Assistance: (standing urinating I toilet) Activity Tolerance: Endurance: (pt reported walked 12 laps today, SOB with activity RN notified) Functional Standing Tolerance: Bed Mobility/Transfers: Bed Mobility Bed Mobility: Yes Bed Mobility 1 Level of Assistance 1: (sup/sit 2x in session SBA) Transfers Transfer: Yes Transfer 1 Transfer Level of Assistance 1: (sit/stand 2x in session SBA, pt performed fxnl mob to/from bed/bathroom SBA) Therapy/Activity: Therapeutic Activity Therapeutic Activity 1: (OT educated Pt on relaxation techniques in session, energy conservation techniques with activity and ADLS to rest before tired, handouts provided) OT provided education on MITT precautions with ADLs and fxnl mobility, no driving at least 3 months, no pushing no pulling, no lifting more than 10 lb, handouts provided. OT provided education on energy conservation techniques with ADLs and mobility to rest before tired plan rest breaks with activity. OT provided education and demonstration for ther ex for sternal precautions written HEP, and handouts provided 1x5 reps 2-3x/day B shoulder posterior rolls neck flex/ext, neck rotation each direction B shoulder flexion/extension with wrist supination B shoulder ab/adduction B knee flex/ext B hip flex/ext B ankle rotation Sensory: -n/t Vision:Vision - Basic Assessment Current Vision: (R eye blind +prosthetic, L eye wears glasses WFL) Sensation: -n/t Strength: L shoulder 3-/5, all other jts WFL Coordination: Movements are Fluid and Coordinated: Yes Hand Function: Hand Function Gross Grasp: Functional Extremities: RUE RUE : Within Functional Limits and LUE LUE: (LUE shoulder flex 0-60 degrees h/o shoulder sx, distal WFL) Outcome Measures: [facility] Daily Activity Putting on and taking off regular lower body clothing: A little Bathing (including washing, rinsing, drying): A little Putting on and taking off regular upper body clothing: None Toileting, which includes using toilet, bedpan or urinal: None Taking care of personal grooming such as brushing teeth: None Eating Meals: None Daily Activity - Total Score: 22 and Brief Confusion Assessment Method (bCAM) CAM Result: CAM - Education Documentation Handouts, taught by Mayda Og OT at 05/14/2023 12:09 PM. Learner: Patient Readiness: Acceptance Method: Explanation Response: Verbalizes Understanding Precautions, taught by Mayda Og OT at 05/14/2023 12:09 PM. Learner: Patient Readiness: Acceptance Method: Explanation Response: Verbalizes Understanding ADL Training, taught by Mayda Og OT at 05/14/2023 12:09 PM. Learner: Patient Readiness: Acceptance Method: Explanation Response: Verbalizes Understanding Education Comments No comments found. OP EDUCATION: Education Individual(s) Educated: Patient Education Provided: Anatomy & Physiology, Diagnosis & Precautions, Symptom management, Riskand benefits of OT discussed with patient or other, Fall precautons, POC discussed and agreed upon Patient/Caregiver Demonstrated Understanding: yes Plan of Care Discussed and Agreed Upon: yes Patient Response to Education: Patient/Caregiver Verbalized Understanding of Information Goals: Encounter Problems Encounter Problems (Active) ADLs Patient will perform UB and LB bathing with independent level of assistance (Progressing) Start: 05/14/23 Expected End: 05/28/23 Patient with complete upper body dressing with independent level of assistance donning and doffing all UE clothes with no adaptive equipment (Progressing) Start: 05/14/23 Expected End: 05/28/23 Patient with complete lower body dressing with independent level of assistance donning and doffing all LE clothes with no adaptive equipment (Progressing) Start: 05/14/23 Expected End: 05/28/23 Patient will complete toileting including hygiene clothing management/hygiene with independent level of assistance (Progressing) Start: 05/14/23 Expected End: 05/28/23 EXERCISE/STRENGTHENING Patient will complete BUE exercises for 3 sets and 10 reps in order to improve strength and activity for ADL performance. (Progressing) Start: 05/14/23 Expected End: 05/28/23 MOBILITY Patient will perform Functional mobility max Household distances/Community Distances with independent level of assistance (Progressing) Start: 05/14/23 Expected End: 05/28/23 TRANSFERS Patient will complete functional transfers with independent level of assistance. (Progressing) Start: 05/14/23 Expected End: 05/28/23 * Jeanette Perez, [employer] OUTLETS MANAGER - 05/14/2023 11:33 AM EDT CARDIAC SURGERY DAILY PROGRESS NOTE Morgan Latham is a 57 y.o. male presenting with Mr. Latham 57yo M with PMHx of HTN, DLD, GERD, tobacco use disorder and chronic pain (rotator cuff, spinal stenosis, lumbar radiculopathy) who presented to the ED with cc of chest pain. Pt noted that his CP started about 3 weeks ago. Initially it would last 3 mins and would only happen at night, it was always substernal and was 10/10 in severity. The pain would go away on its own so pt didn't do anything about it. The pain cont. and started lasting longer and longer each time, eventually happening even in the morning. Pt was not exerting himselfwhen this was happening and almost all of these times, he was resting in bed. Pt became scared and decided to seek emergent medical care. Pt denies n/v/c/d, no SOB or cold/cough like symptoms, no burning with urination, increased urinary frequency or urinary urgency. OSH COURSE: He arrived at the [facility] and was seen to have high lateral/anterior ST elevated in leads I andaVL with reciprocal inferolateral changes/ ST depression and elevated trops. 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 Pt was seen to have multivessel disease on [facility], a balloon pump was placed and pt was started on heparin gtt, and nitro gtt and transferred to [facility] for CABG eval. OPERATIVE PROCEDURES Dr Trevino on 05/07/23 Creation Bypass Graft Coronary Artery [place] CORONARY ARTERY BYP W/VEIN & ARTERY GRAFT 2 VEIN Via median sternotomy on cardiopulmonary bypass urgent coronary artery revascularization 1. ALVAREZ to LAD 2. Saphenous vein graft to CTICU course Transfer to 3 on 05/10 Objective BP 152/81 (BP Location: Right arm, Patient Position: Sitting) Pulse 103 Temp 36.1 C (97 F) (Temporal) Resp 18 Ht 1.727 m (5' 7.99 ) Wt 86.3 kg (190 lb 4.1 oz) SpO2 94% BMI 28.94 kg/m Pain Score: 9 3 Day Weight Change: 0.133 kg (4.7 oz) per day Heart Rate: [84-107] Temp: [36.1 C (97 F)-36.7 C (98.1 F)] Resp: [17-20] BP: (108-152)/(63-84) Weight: [86 kg (189 lb 9.5 oz)-86.3 kg (190 lb 4.1 oz)] SpO2: [93 %-98 %] Intake and Output Intake/Output Summary (Last 24 hours) at 05/14/2023 1133 Last data filed at 05/14/2023 0600 Gross per 24 hour Intake 720 ml Output 250 ml Net 470 ml Physical Exam Physical Exam Constitutional: Appearance: Normal appearance. HENT: Head: Normocephalic and atraumatic. Mouth/Throat: Mouth: Mucous membranes are moist. Pharynx: Oropharynx is clear. Eyes: Conjunctiva/sclera: Conjunctivae normal. Comments: Right eye prosthetic glass eye Cardiovascular: Rate and Rhythm: Normal rate and regular rhythm. Pulses: Normal pulses. Heart sounds: Normal heart sounds. Comments: NSR/ST 84-107 Pulmonary: Effort: Pulmonary effort is normal. Breath sounds: Normal breath sounds. Comments: Diminished breath sounds Sternum stable Abdominal: General: Abdomen is flat. Palpations: Abdomen is soft. Comments: +BM 05/13 Genitourinary: Comments: Voids independently Musculoskeletal: Cervical back: Neck supple. Comments: Deconditioned, Skin: Capillary Refill: Capillary refill takes less than 2 seconds. Comments: MSI well approx, no s/sx of infections Neurological: General: No focal deficit present. Mental Status: He is alert and oriented to person, place, and time. Psychiatric: Mood and Affect: Mood normal. Behavior: Behavior normal. Medications Scheduled medications acetaminophen, 650 mg, oral, q4h aspirin, 81 mg, oral, Daily atorvastatin, 80 mg, oral, Daily bisacodyl, 10 mg, rectal, Daily clopidogrel, 75 mg, oral, Daily docusate sodium, 100 mg, oral, BID DULoxetine, 30 mg, oral, Daily empagliflozin, 10 mg, oral, Daily influenza, 0.5 mL, intramuscular, During hospitalization gabapentin, 300 mg, oral, q8h heparin (porcine), 5,000 Units, subcutaneous, q8h ipratropium-albuteroL, 3 mL, nebulization, q6h iron polysaccharides, 150 mg, oral, Daily lidocaine, 1 patch, transdermal, Daily melatonin, 5 mg, oral, Nightly methocarbamol, 500 mg, oral, q6h CARMEN metoprolol succinate XL, 100 mg, oral, Daily multivitamin with minerals, 1 tablet, oral, Daily pantoprazole, 40 mg, oral, Daily before breakfast perflutren protein A microsphere, 0.5 mL, intravenous, Once in imaging polyethylene glycol, 17 g, oral, BID sacubitriL-valsartan, 0.5 tablet, oral, BID spironolactone, 12.5 mg, oral, Daily Continuous medications PRN medications PRN medications: naloxone, oxyCODONE, oxyCODONE Labs Results for orders placed or performed during the hospital encounter of 05/03/23 (from the past 24 hour(s)) Transthoracic Echo (TTE) Complete Result Value Ref Range LV A4C EF 27.9 CBC Result Value Ref Range WBC 10.7 4.4 - 11.3 x10*3/uL nRBC 0.0 0.0 - 0.0 /100 WBCs RBC 3.26 (L) 4.50 - 5.90 x10*6/uL Hemoglobin 9.9 (L) 13.5 - 17.5 g/dL Hematocrit 30.6 (L) 41.0 - 52.0 % MCV 94 80 - 100 fL MCH 30.4 26.0 - 34.0 pg MCHC 32.4 32.0 - 36.0 g/dL RDW 13.2 11.5 - 14.5 % Platelets 388 150 - 450 x10*3/uL MPV 10.0 7.5 - 11.5 fL Renal function panel Result Value Ref Range Glucose 94 74 - 99 mg/dL Sodium 136 136 - 145 mmol/L Potassium 4.0 3.5 - 5.3 mmol/L Chloride 96 (L) 98 - 107 mmol/L Bicarbonate 28 21 - 32 mmol/L Anion Gap 16 10 - 20 mmol/L Urea Nitrogen 17 6 - 23 mg/dL Creatinine 1.08 0.50 - 1.30 mg/dL eGFR 80 >60 mL/min/1.73m*2 Calcium 9.3 8.6 - 10.6 mg/dL Phosphorus 4.1 2.5 - 4.9 mg/dL Albumin 3.9 3.4 - 5.0 g/dL Magnesium Result Value Ref Range Magnesium 2.09 1.60 - 2.40 mg/dL CBC Result Value Ref Range WBC 10.9 4.4 - 11.3 x10*3/uL nRBC 0.0 0.0 - 0.0 /100 WBCs RBC 3.13 (L) 4.50 - 5.90 x10*6/uL Hemoglobin 9.6 (L) 13.5 - 17.5 g/dL Hematocrit 30.2 (L) 41.0 - 52.0 % MCV 97 80 - 100 fL MCH 30.7 26.0 - 34.0 pg MCHC 31.8 (L) 32.0 - 36.0 g/dL RDW 13.3 11.5 - 14.5 % Platelets 455 (H) 150 - 450 x10*3/uL MPV 10.1 7.5 - 11.5 fL Renal Function Panel Result Value Ref Range Glucose 89 74 - 99 mg/dL Sodium 136 136 - 145 mmol/L Potassium 4.3 3.5 - 5.3 mmol/L Chloride 98 98 - 107 mmol/L Bicarbonate 26 21 - 32 mmol/L Anion Gap 16 10 - 20 mmol/L Urea Nitrogen 20 6 - 23 mg/dL Creatinine 1.18 0.50 - 1.30 mg/dL eGFR 72 >60 mL/min/1.73m*2 Calcium 9.5 8.6 - 10.6 mg/dL Phosphorus 4.2 2.5 - 4.9 mg/dL Albumin 3.9 3.4 - 5.0 g/dL Magnesium Result Value Ref Range Magnesium 2.19 1.60 - 2.40 mg/dL XR CHEST 2 VIEW WITH OBLIQUES; 05/11/2023 9:27 am INDICATION: Signs/Symptoms:s/p CABG. COMPARISON: Chest radiograph 05/10/[address] scan 05/05/2023 FINDINGS: PA and lateral radiographs, including dual energy subtraction images, are available for interpretation. In addition, single plane tomographic images are also available. Status post prior median sternotomy and CABG with intact sternal cerclage wires. The cardiomediastinal silhouette is stable in size and configuration,persistently enlarged. There is similar mild bibasilar atelectasis with small pleural effusions, better seen on lateral projection. There is no pulmonary edema, in setting of low lung volumes. There is no pneumothorax. No acute osseous abnormality. IMPRESSION: 1. Similar mild bibasilar atelectasis and small pleural effusions. 2. Stable enlargement of cardiomediastinal silhouette without cornelio pulmonary edema or pneumothorax. Signed by: Mauro Lund 05/11/2023 10:01 AM Dictation workstation: [id number] IMPRESSION & PLAN: POD #7 s/p CABG x2 ALVAREZ-LAD; SVG graft - Increase activity/ ambulation; PT/OT - Encourage IS, C/DB; respiratory therapy; wean O2 as tae - Cardiac rehab referral - Continue cardiac meds: ASA, BB, statin, Plavix, empagliflozin, Entresto, spironolactone - Pain and anticonstipation meds - 2v CXR /: 1. Similar mild bibasilar atelectasis and small pleural effusions 2. Stable enlargement of cardiomediastinal silhouette without cornelio pulmonary edema or pneumothorax. - Epicardial wires cut at the skin prior to discharge - Optimize nutrition and electrolytes Rhythm - Tele: NSR/ST HR 84-107 - Continue metoprolol succinate 100mg daily - Adjust medications as tolerated - Tele until discharge Acute Blood Loss Anemia Hematocrit Date Value Ref Range Status 05/14/2023 30.2 (L) 41.0 - 52.0 % Final 05/13/2023 30.6 (L) 41.0 - 52.0 % Final 05/12/2023 30.6 (L) 41.0 - 52.0 % Final 05/11/2023 33.6 (L) 41.0 - 52.0 % Final - MV, PO Iron x1mo - Daily labs, transfuse as indicated Thrombocytopenia Platelets Date Value Ref Range Status 05/14/2023 455 (H) 150 - 450 x10*3/uL Final 05/13/2023 388 150 - 450 x10*3/uL Final 05/12/2023 338 150 - 450 x10*3/uL Final 05/11/2023 304 150 - 450 x10*3/uL Final - Etiology likely postop/CPB related - Continue to trend with daily CBCs Volume/Electrolyte Status: Preop wt 86.9; Chronic Systolic HF EF 30- 35%, Ischemic cardiomyopathy - Weight: 86.3, 86.2, 84.5, 85.6 - HF following; appreciate recs: --- repeat 2d echo; done 05/13; EF 30-35% --- Stop metoprolol tartrate. Start metoprolol succinate 100 mg PO daily. --- Stop Losartan. Start Entresto 12/13 mg PO bid. --- Start Spironolactone 12.5 mg PO daily. --- Continue Empagliflozin 10 mg PO daily. --- If HR remains persistently >70 bpm, will uptitrate metoprolol as tolerated. --- Please have Pharmacy check insurance coverage for Empagliflozin and Entresto. --- Follow up with outpatient HF clinic as scheduled. --- Will need Cardiac Rehab outpatient. - Adjust diuresis as needed for postop cardiac surgery hypervolemia - Replete electrolytes for hypokalemia/hypomagnesemia/hypophosphatemia as needed - Daily weights and strict I&Os - Daily RFP while admitted Hypertension - SBP last 24 hours 108-150 - continue BB - metoprolol succinate 100 mg PO daily - Entresto 12/13 mg PO bid - Spironolactone 12.5 mg PO daily Hyperlipidemia: -continue statin -follow up lipid panel with PCP/ cardio as appropriate GERD - Cont PPI - Avoid taking pills on an empty stomach - Eat small frequent meals - eat sitting up in the chair - avoid acidic foods Nicotine dependency - offered nicotine replacement - Aggressive pulmonary hygiene - wean O2 for O2 sats > 92% - ABGs PRN - Smoking cessation education was provided to the patient. Cessation encouraged. Physiological and physical aspects of tobacco addiction as well as strategies for quitting were discussed. - Counseling was given focusing on the harmful effects of this addiction especially given the patient's medical condition(s) which will be worsened because of the chemicals in tobacco OA Chronic back Pain - PT/OT - Hot and cold packs - Acetaminophen - Cont oxy and gabapentin - cont Robaxin every 6 hrs - No NSAIDs for 3 months after cardiac surgery; if NSAIDs needed after 3 months, clear use with drop forge operator before starting - Reviewed on 05/11 OARRS 30 day MME AVG /day 60 Prophylaxis DVT Prophylaxis - SCDs/TEDS - Ambulation/OOB - Heparin SQ - PPI Code Status: Full Code Dispo - PT/OT recs home - Would benefit from homecare for carepath and RN visits - Anticipate discharge 1-2 days - Will continue to assess discharge needs CHRIS Holt Cardiac Surgery [facility] Team Pager [phone] 05/14/2023 11:33 AM * CHRIS Holt - 05/13/2023 4:08 PM EDT CARDIAC SURGERY DAILY PROGRESS NOTE Morgan Latham is a 57 y.o. male presenting with Mr. Latham 57yo M with PMHx of HTN, DLD, GERD, tobacco use disorder and chronic pain (rotator cuff, spinal stenosis, lumbar radiculopathy) who presented to the ED with cc of chest pain. Pt noted that his CP started about 3 weeks ago. Initially it would last 3 mins and would only happen at night, it was always substernal and was 10/10 in severity. The pain would go away on its own so pt didn't do anything about it. The pain cont. and started lasting longer and longer each time, eventually happening even in the morning. Pt was not exerting himselfwhen this was happening and almost all of these times, he was resting in bed. Pt became scared and decided to seek emergent medical care. Pt denies n/v/c/d, no SOB or cold/cough like symptoms, no burning with urination, increased urinary frequency or urinary urgency. OSH COURSE: He arrived at the [place] [facility] and was seen to have high lateral/anterior ST elevated in leads I andaVL with reciprocal inferolateral changes/ ST depression and elevated trops. 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 Pt was seen to have multivessel disease on [facility], a balloon pump was placed and pt was started on heparin gtt, and nitro gtt and transferred to [facility] for CABG eval. OPERATIVE PROCEDURES Dr Trevino on 05/07/23 Creation Bypass Graft Coronary Artery W[place] CORONARY ARTERY BYP W/VEIN & ARTERY GRAFT 2 VEIN Via median sternotomy on cardiopulmonary bypass urgent coronary artery revascularization 1. ALVAREZ to LAD 2. Saphenous vein graft to CTICU course Transfer to 3 on 05/10 Objective BP 110/73 Pulse 89 Temp 35.7 C (96.3 F) Resp 18 Ht 1.727 m (5' 7.99 ) Wt 86.2 kg (190 lb) SpO2 100% BMI 28.90 kg/m Pain Score: 8 3 Day Weight Change: Unable to Calculate Heart Rate: [88-115] Temp: [35.7 C (96.3 F)-37.2 C (99 F)] Resp: [18-20] BP: (102-130)/(65-83) Weight: [86.2 kg (190 lb)] SpO2: [93 %-100 %] Intake and Output Intake/Output Summary (Last 24 hours) at 05/13/2023 1608 Last data filed at 05/13/2023 1127 Gross per 24 hour Intake 1040 ml Output 250 ml Net 790 ml Physical Exam Physical Exam Constitutional: Appearance: Normal appearance. HENT: Head: Normocephalic and atraumatic. Mouth/Throat: Mouth: Mucous membranes are moist. Pharynx: Oropharynx is clear. Eyes: Conjunctiva/sclera: Conjunctivae normal. Comments: Right eye prosthetic glass eye Cardiovascular: Rate and Rhythm: Normal rate and regular rhythm. Pulses: Normal pulses. Heart sounds: Normal heart sounds. Comments: NSR/ST 85-115 Pulmonary: Effort: Pulmonary effort is normal. Breath sounds: Normal breath sounds. Comments: Diminished breath sounds Sternum stable Abdominal: General: Abdomen is flat. Palpations: Abdomen is soft. Comments: +BM 05/12 Genitourinary: Comments: Voids independently Musculoskeletal: Cervical back: Neck supple. Comments: Deconditioned, Skin: Capillary Refill: Capillary refill takes less than 2 seconds. Comments: MSI well approx, no s/sx of infections Neurological: General: No focal deficit present. Mental Status: He is alert and oriented to person, place, and time. Psychiatric: Mood and Affect: Mood normal. Behavior: Behavior normal. Medications Scheduled medications acetaminophen, 650 mg, oral, q4h aspirin, 81 mg, oral, Daily atorvastatin, 80 mg, oral, Daily bisacodyl, 10 mg, rectal, Once clopidogrel, 75 mg, oral, Daily docusate sodium, 100 mg, oral, BID DULoxetine, 30 mg, oral, Daily empagliflozin, 10 mg, oral, Daily influenza, 0.5 mL, intramuscular, During hospitalization gabapentin, 300 mg, oral, q8h heparin (porcine), 5,000 Units, subcutaneous, q8h ipratropium-albuteroL, 3 mL, nebulization, q6h iron polysaccharides, 150 mg, oral, Daily lidocaine, 1 patch, transdermal, Daily losartan, 25 mg, oral, Daily melatonin, 5 mg, oral, Nightly methocarbamol, 500 mg, oral, q6h CARMEN metoprolol tartrate, 50 mg, oral, BID multivitamin with minerals, 1 tablet, oral, Daily pantoprazole, 40 mg, oral, Daily before breakfast perflutren protein A microsphere, 0.5 mL, intravenous, Once in imaging polyethylene glycol, 17 g, oral, BID Continuous medications PRN medications PRN medications: naloxone, oxyCODONE, oxyCODONE Labs Results for orders placed or performed during the hospital encounter of 05/03/23 (from the past 24 hour(s)) Vascular US upper extremity venous duplex left Result Value Ref Range BSA 2.03 m2 Transthoracic Echo (TTE) Complete Result Value Ref Range BSA 2.03 m2 CBC Result Value Ref Range WBC 10.7 4.4 - 11.3 x10*3/uL nRBC 0.0 0.0 - 0.0 /100 WBCs RBC 3.26 (L) 4.50 - 5.90 x10*6/uL Hemoglobin 9.9 (L) 13.5 - 17.5 g/dL Hematocrit 30.6 (L) 41.0 - 52.0 % MCV 94 80 - 100 fL MCH 30.4 26.0 - 34.0 pg MCHC 32.4 32.0 - 36.0 g/dL RDW 13.2 11.5 - 14.5 % Platelets 388 150 - 450 x10*3/uL MPV 10.0 7.5 - 11.5 fL Renal function panel Result Value Ref Range Glucose 94 74 - 99 mg/dL Sodium 136 136 - 145 mmol/L Potassium 4.0 3.5 - 5.3 mmol/L Chloride 96 (L) 98 - 107 mmol/L Bicarbonate 28 21 - 32 mmol/L Anion Gap 16 10 - 20 mmol/L Urea Nitrogen 17 6 - 23 mg/dL Creatinine 1.08 0.50 - 1.30 mg/dL eGFR 80 >60 mL/min/1.73m*2 Calcium 9.3 8.6 - 10.6 mg/dL Phosphorus 4.1 2.5 - 4.9 mg/dL Albumin 3.9 3.4 - 5.0 g/dL Magnesium Result Value Ref Range Magnesium 2.09 1.60 - 2.40 mg/dL XR CHEST 2 VIEW WITH OBLIQUES; 05/11/2023 9:27 am INDICATION: Signs/Symptoms:s/p CABG. COMPARISON: Chest radiograph 05/10/[address] scan 05/05/2023 FINDINGS: PA and lateral radiographs, including dual energy subtraction images, are available for interpretation. In addition, single plane tomographic images are also available. Status post prior median sternotomy and CABG with intact sternal cerclage wires. The cardiomediastinal silhouette is stable in size and configuration,persistently enlarged. There is similar mild bibasilar atelectasis with small pleural effusions, better seen on lateral projection. There is no pulmonary edema, in setting of low lung volumes. There is no pneumothorax. No acute osseous abnormality. IMPRESSION: 1. Similar mild bibasilar atelectasis and small pleural effusions. 2. Stable enlargement of cardiomediastinal silhouette without cornelio pulmonary edema or pneumothorax. Signed by: Mauro Lund 05/11/2023 10:01 AM Dictation workstation: [id number] IMPRESSION & PLAN: POD #6 s/p CABG x2 ALVAREZ-LAD; SVG graft - Increase activity/ ambulation; PT/OT - Encourage IS, C/DB; respiratory therapy; wean O2 as tae - Cardiac rehab referral - Continue cardiac meds: ASA, BB, statin, Plavix, Losartan - Pain and anticonstipation meds - 2v CXR 05/11: 1. Similar mild bibasilar atelectasis and small pleural effusions 2. Stable enlargement of cardiomediastinal silhouette without cornelio pulmonary edema or pneumothorax. - Epicardial wires cut at the skin prior to discharge - Optimize nutrition and electrolytes Rhythm - Tele: NSR HR 88-115 - Continue metoprolol 50 mg BID - Adjust medications as tolerated - Tele until discharge Acute Blood Loss Anemia Hematocrit Date Value Ref Range Status 05/13/2023 30.6 (L) 41.0 - 52.0 % Final 05/12/2023 30.6 (L) 41.0 - 52.0 % Final 05/11/2023 33.6 (L) 41.0 - 52.0 % Final - MV, PO Iron x1mo - Daily labs, transfuse as indicated Thrombocytopenia Platelets Date Value Ref Range Status 05/13/2023 388 150 - 450 x10*3/uL Final 05/12/2023 338 150 - 450 x10*3/uL Final 05/11/2023 304 150 - 450 x10*3/uL Final - Etiology likely postop/CPB related - Continue to trend with daily CBCs Volume/Electrolyte Status: Preop wt 86.9; Chronic Systolic HF EF 30- 35%, Ischemic cardiomyopathy - Weight: 86.2, 84.5, 85.6 - HF following recs appreciated on 05/12 --- repeat 2d echo; ordered on 05/12 --- Initiate Empagliflozin - Adjust diuresis as needed for postop cardiac surgery hypervolemia - Replete electrolytes for hypokalemia/hypomagnesemia/hypophosphatemia as needed - Started Losartan 25 mg daily - Daily weights and strict I&Os - Daily RFP while admitted Hypertension - SBP last 24 hours 102-130 - continue BB - Losartan 25 mg daily Hyperlipidemia: -continue statin -follow up lipid panel with PCP/ cardio as appropriate GERD - Cont PPI - Avoid taking pills on an empty stomach - Eat small frequent meals - eat sitting up in the chair - avoid acidic foods Nicotine dependency - offered nicotine replacement - Aggressive pulmonary hygiene - wean O2 for O2 sats > 92% - ABGs PRN - Smoking cessation education was provided to the patient. Cessation encouraged. Physiological and physical aspects of tobacco addiction as well as strategies for quitting were discussed. - Counseling was given focusing on the harmful effects of this addiction especially given the patient's medical condition(s) which will be worsened because of the chemicals in tobacco OA Chronic back Pain - PT/OT - Hot and cold packs - Acetaminophen - Cont oxy and gabapentin - cont Robaxin every 6 hrs - No NSAIDs for 3 months after cardiac surgery; if NSAIDs needed after 3 months, clear use with drop forge operator before starting - Reviewed on 05/11 OARRS 30 day MME AVG /day 60 Prophylaxis DVT Prophylaxis - SCDs/TEDS - Ambulation/OOB - Heparin SQ - PPI Code Status: Full Code Dispo - PT/OT recs home - Would benefit from homecare for carepath and RN visits - Anticipate discharge 1-2 days - Will continue to assess discharge needs CHRIS Holt Cardiac Surgery [facility] Team Pager [phone] 05/13/2023 4:08 PM * Guevara Le MD - 05/13/2023 12:29 PM EDT Subjective Data: No overnight events reported. Patient reports walking around the unit. He would have dyspnea on prolonged walking (e.g. >3 lapses). He denies chest pain, palpitations, orthopnea, PND, dizziness, syncope. 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 His BP 100-130/60-80s while on Losartan 25 mg and metoprolol tartrate 50 mg bid. Objective Data: Last Recorded Vitals: Vitals: 05/13/23 0158 05/13/23 0500 05/13/23 0854 05/13/23 1127 BP: 102/66 118/82 110/73 BP Location: Right arm Patient Position: Pulse: 88 93 89 Resp: 18 20 18 Temp: 36.8 C (98.2 F) 36.5 C (97.7 F) 35.7 C (96.3 F) TempSrc: Temporal Temporal SpO2: 94% 96% 98% 100% Weight: 86.2 kg (190 lb) Height: Last Labs: LABS: CMP: Recent Labs 05/04/23 1424 05/04/23 1721 05/05/23 0109 05/06/23 0518 05/07/23 0430 05/07/23 2306 05/08/23 0610 05/08/23 1543 05/09/23 0506 05/09/23 1258 05/10/23 0231 05/10/23 1527 05/11/23 1443 05/12/23 1229 05/13/23 1153 NA CANCELED 142 < > 145 < > 141 143 144 142 141 136 135* 135* 135* 136 K CANCELED 3.9 < > 3.9 < > 4.5 4.2 3.8 3.4* 3.3* 4.4 3.8 4.6 4.4 4.0 CL CANCELED 108* < > 106 < > 107 109* 107 107 107 107 99 96* 96* 96* CO2 CANCELED 26 < > 23 < > 22 22 22 23 20* 21 22 26 27 28 ANIONGAP CANCELED 12 < > 20 < > 17 16 19 15 17 12 18 18 16 16 BUN CANCELED 13 < > 9 < > 15 18 22 27* 27* 22 19 18 17 17 CREATININE CANCELED 1.02 < > 0.87 < > 1.24 1.26 1.25 1.04 0.99 0.79 0.90 1.04 1.01 1.08 EGFR -- 85 < > >90 < > 67 66 67 83 88 >90 >90 83 86 80 MG CANCELED -- < > 2.12 < > 2.58* 2.32 2.47* 2.29 2.28 1.96 2.09 2.01 2.05 2.09 ALBUMIN CANCELED 3.8 < > 3.6 < > 3.5 3.2* 4.0 3.6 3.6 3.3* 3.7 4.1 3.8 3.9 ALT CANCELED 31 -- 20 -- -- -- -- -- -- -- -- -- -- -- AST CANCELED 87* -- 30 -- -- -- -- -- -- -- -- -- -- -- BILITOT CANCELED 0.4 -- 0.5 -- -- -- -- -- -- -- -- -- -- -- < > = values in this interval not displayed. CBC: Recent Labs 05/08/23 0610 05/08/23 1543 05/09/23 0506 05/09/23 1258 05/10/23 0231 05/11/23 1443 05/12/23 1229 05/13/23 1153 WBC 9.4 13.0* 12.3* 11.8* 10.8 9.7 8.9 10.7 HGB 10.3* 10.5* 9.3* 9.8* 8.7* 10.9* 10.1* 9.9* HCT 31.4* 32.1* 28.0* 30.1* 30.7* 33.6* 30.6* 30.6* PLT 143* 158 142* 144* 128* 304 338 388 MCV 93 94 94 95 110* 96 93 94 COAG: Recent Labs 05/03/23 1915 05/04/23 0220 05/04/23 0615 05/04/23 1259 05/04/23 1424 05/04/23 1704 05/05/23 0109 05/06/23 0518 05/07/23 0430 05/07/23 2358 INR -- -- -- 1.1 CANCELED -- -- -- -- 1.2* HAUF 0.2 0.3 0.2 0.4 -- 0.4 0.5 0.5 0.3 -- ABO: Recent Labs 05/07/23 043 ABO O HEME/ENDO: Recent Labs 05/04/23 1700 05/06/23 0518 TSH -- 2.93 HGBA1C 5.9* -- CARDIAC: Recent Labs 05/03/23 1915 05/04/23 0220 05/04/23 1424 05/04/23 1721 05/04/23 1729 05/05/23 1859 LDH 603* -- CANCELED 562* -- -- TROPHS 73,550* 53,345* -- -- 22,510* 17,382* MICRO: No results for input(s): ESR , CRP in the last 59848 hours. No results found for the last 90 days. Last I/O: I/O last 3 completed shifts: In: 806 (9.4 mL/kg) [P.O.:800; I.V.:6 (0.1 mL/kg)] Out: 2800 (32.5 mL/kg) [Urine:2800 (0.9 mL/kg/hr)] Weight: 86.2 kg Inpatient Medications: Scheduled medications Medication Dose Route Frequency acetaminophen 650 mg oral q4h aspirin 81 mg oral Daily atorvastatin 80 mg oral Daily bisacodyl 10 mg rectal Once clopidogrel 75 mg oral Daily docusate sodium 100 mg oral BID DULoxetine 30 mg oral Daily empagliflozin 10 mg oral Daily influenza 0.5 mL intramuscular During hospitalization gabapentin 300 mg oral q8h heparin (porcine) 5,000 Units subcutaneous q8h ipratropium-albuteroL 3 mL nebulization q6h iron polysaccharides 150 mg oral Daily lidocaine 1 patch transdermal Daily losartan 25 mg oral Daily melatonin 5 mg oral Nightly methocarbamol 500 mg oral q6h CARMEN metoprolol tartrate 50 mg oral BID multivitamin with minerals 1 tablet oral Daily pantoprazole 40 mg oral Daily before breakfast perflutren protein A microsphere 0.5 mL intravenous Once in imaging polyethylene glycol 17 g oral BID PRN medications Medication naloxone oxyCODONE oxyCODONE Continuous Medications Medication Dose Last Rate Physical Exam: Constitutional: General: Well developed adult without acute distress Appearance: Normal appearance. HENT: Head: atraumatic. JVD at the clavicle Eyes: Conjunctiva/sclera: Conjunctivae normal. Cardiovascular: Rate and Rhythm: Normal rate and regular rhythm. Heart sounds: Normal heart sounds. No murmurs or gallups. Extremities: No edema Pulmonary: Effort: Pulmonary effort is normal. No respiratory distress. Breath sounds: Normal breath sounds bilaterally. No wheezing or rales. No cough. Abdominal: General: There is no distension. Active bowel sounds. Palpations: Abdomen is soft and non-tender. Skin: General: Skin is warm and dry. Comments: Median sternotomy incision c/d/I, well approximated Assessment/Plan 57 y/o Male with PMHx of HTN, HLD, active smoker, chronic pain, presenting with severe substernal chest pain, found to have lateral STEMI. LHC showed mid LAD 99% occlusion, severe disease ramus, diagonal branch. LVEF 30%, RWMA of LAD territory and lateral wall. S/p CABG x 2 (ALVAREZ to LAD, SVG to Om1) on 05/07/23. Most recent 2-D echo (05/04/23) revealed LVEF 30-35%, hypokinetic apex, anterior wall and distal segment. #HFrEF, LVEF 30-35% not in overt decompensated state, with adequate perfusion #Ischemic cardiomyopathy/CAD #s/p CABG x 2 (ALVAREZ-LAD, SVG-OM1) on 05/07/23 #Active cigarette smoking Recommendations: -Stop metoprolol tartrate. Start metoprolol succinate 100 mg PO daily. -Stop Losartan. Start Entresto 12/13 mg PO bid. -Start Spironolactone 12.5 mg PO daily. -Continue Empagliflozin 10 mg PO daily. -If HR remains persistently >70 bpm, will uptitrate metoprolol as tolerated. -Please have Pharmacy check insurance coverage for Empagliflozin and Entresto. -Follow up with outpatient HF clinic as scheduled. -Will need Cardiac Rehab outpatient. HF service will continue to follow though aim to discharge on these medication classes. Discussed with HF attending, Dr. Fito Le Signed: David Reyna MD Heart Failure service FOLLOWUP: Future Appointments Date Time Provider Department Center 05/24/2023 11:20 AM Sherine Anne APRN-[facility] [id number] [place] I saw and evaluated the patient. I personally obtained the miller and critical portions of the historyand physical exam or was physically present for miller and critical portions performed by the resident/fellow. I reviewed the resident/fellow's documentation and discussed the patient with the resident/f gunnar. I agree with the resident/fellow's medical decision making as documented in the note. 57 y.o.M p/w lateral STEMI now s/p ALVAREZ-LAD, S-OM grafting on 05/07 with pre-post surgical HFrEF. Currently optimizing medical therapy with 4 pillars. (BB, ARNI, MRA, SGLT2). Lives in [place] and will need followup on [facility]. Guevara Le MD * Mayda Og OT - 05/13/2023 10:23 AM EDT Occupational Therapy OT att 05/13 off floor * Ze Dejesus RN - 05/12/2023 3:23 PM EDT Morgan Latham is a 57 y.o. male on day 9 of admission presenting with Coronary arteriography abnormal. Met with patient to introduce myself, role and discuss discharge planning. Patient lives with family. Independent in all adl's. Requires no assist devices for mobility. Patient denies active home care, but is agreeable to home care services post discharge. Patient is agreeable to a blanket referral being placed for home care services Ze Dejesus RN * Shonna Cid APRN-[facility] - 05/12/2023 1:38 PM EDT CARDIAC SURGERY DAILY PROGRESS NOTE Morgan Latham is a 57 y.o. male presenting with Mr. Latham 57yo M with PMHx of HTN, DLD, GERD, tobacco use disorder and chronic pain (rotator cuff, spinal stenosis, lumbar radiculopathy) who presented to the ED with cc of chest pain. Pt noted that his CP started about 3 weeks ago. Initially it would last 3 mins and would only happen at night, it was always substernal and was 10/10 in severity. The pain would go away on its own so pt didn't do anything about it. The pain cont. and started lasting longer and longer each time, eventually happening even in the morning. Pt was not exerting himselfwhen this was happening and almost all of these times, he was resting in bed. Pt became scared and decided to seek emergent medical care. Pt denies n/v/c/d, no SOB or cold/cough like symptoms, no burning with urination, increased urinary frequency or urinary urgency. OSH COURSE: He arrived at the [place] [facility] and was seen to have high lateral/anterior ST elevated in leads I andaVL with reciprocal inferolateral changes/ ST depression and elevated trops. 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 Pt was seen to have multivessel disease on [facility], a balloon pump was placed and pt was started on heparin gtt, and nitro gtt and transferred to [facility] for CABG eval. OPERATIVE PROCEDURES Dr Trevino on 05/07/23 Creation Bypass Graft Coronary Artery [place] CORONARY ARTERY BYP W/VEIN & ARTERY GRAFT 2 VEIN Via median sternotomy on cardiopulmonary bypass urgent coronary artery revascularization 1. ALVAREZ to LAD 2. Saphenous vein graft to CTICU course Transfer to 3 on 05/10 Objective BP 116/75 (BP Location: Right arm, Patient Position: Lying) Pulse 85 Temp 36.2 C (97.2 F) (Temporal) Resp 18 Ht 1.727 m (5' 7.99 ) Wt 84.5 kg (186 lb 4.6 oz) SpO2 93% BMI 28.33 kg/m Pain Score: 6 3 Day Weight Change: -1.633 kg (-3 lb 9.6 oz) per day Heart Rate: [85-115] Temp: [35.9 C (96.6 F)-36.8 C (98.2 F)] Resp: [17-20] BP: (94-158)/(60-92) Weight: [84.5 kg (186 lb 4.6 oz)] SpO2: [92 %-95 %] Intake and Output Intake/Output Summary (Last 24 hours) at 05/12/2023 1338 Last data filed at 05/12/2023 1000 Gross per 24 hour Intake 126 ml Output 2550 ml Net -2424 ml Physical Exam Physical Exam Constitutional: Appearance: Normal appearance. HENT: Head: Normocephalic and atraumatic. Mouth/Throat: Mouth: Mucous membranes are moist. Pharynx: Oropharynx is clear. Eyes: Conjunctiva/sclera: Conjunctivae normal. Comments: Right eye prosthetic glass eye Cardiovascular: Rate and Rhythm: Normal rate and regular rhythm. Pulses: Normal pulses. Heart sounds: Normal heart sounds. Comments: NSR 80-90 Pulmonary: Effort: Pulmonary effort is normal. Breath sounds: Normal breath sounds. Comments: Diminished breath sounds Sternum stable Abdominal: General: Abdomen is flat. Palpations: Abdomen is soft. Comments: Awaiting for BM Genitourinary: Comments: Voids independently Musculoskeletal: Cervical back: Neck supple. Comments: Deconditioned, Skin: Capillary Refill: Capillary refill takes less than 2 seconds. Comments: MSI well approx, no s/sx of infections Neurological: General: No focal deficit present. Mental Status: He is alert and oriented to person, place, and time. Psychiatric: Mood and Affect: Mood normal. Behavior: Behavior normal. Medications Scheduled medications acetaminophen, 650 mg, oral, q4h aspirin, 81 mg, oral, Daily atorvastatin, 80 mg, oral, Daily clopidogrel, 75 mg, oral, Daily docusate sodium, 100 mg, oral, BID DULoxetine, 30 mg, oral, Daily influenza, 0.5 mL, intramuscular, During hospitalization gabapentin, 300 mg, oral, q8h heparin (porcine), 5,000 Units, subcutaneous, q8h iron polysaccharides, 150 mg, oral, Daily lidocaine, 1 patch, transdermal, Daily losartan, 25 mg, oral, Daily melatonin, 5 mg, oral, Nightly methocarbamol, 500 mg, oral, q6h CARMEN metoprolol tartrate, 50 mg, oral, BID multivitamin with minerals, 1 tablet, oral, Daily pantoprazole, 40 mg, oral, Daily before breakfast perflutren protein A microsphere, 0.5 mL, intravenous, Once in imaging polyethylene glycol, 17 g, oral, BID Continuous medications PRN medications PRN medications: naloxone, oxyCODONE, oxyCODONE Labs Results for orders placed or performed during the hospital encounter of 05/03/23 (from the past 24 hour(s)) CBC Result Value Ref Range WBC 9.7 4.4 - 11.3 x10*3/uL nRBC 0.0 0.0 - 0.0 /100 WBCs RBC 3.52 (L) 4.50 - 5.90 x10*6/uL Hemoglobin 10.9 (L) 13.5 - 17.5 g/dL Hematocrit 33.6 (L) 41.0 - 52.0 % MCV 96 80 - 100 fL MCH 31.0 26.0 - 34.0 pg MCHC 32.4 32.0 - 36.0 g/dL RDW 13.1 11.5 - 14.5 % Platelets 304 150 - 450 x10*3/uL MPV 10.6 7.5 - 11.5 fL Renal function panel Result Value Ref Range Glucose 128 (H) 74 - 99 mg/dL Sodium 135 (L) 136 - 145 mmol/L Potassium 4.6 3.5 - 5.3 mmol/L Chloride 96 (L) 98 - 107 mmol/L Bicarbonate 26 21 - 32 mmol/L Anion Gap 18 10 - 20 mmol/L Urea Nitrogen 18 6 - 23 mg/dL Creatinine 1.04 0.50 - 1.30 mg/dL eGFR 83 >60 mL/min/1.73m*2 Calcium 9.6 8.6 - 10.6 mg/dL Phosphorus 4.4 2.5 - 4.9 mg/dL Albumin 4.1 3.4 - 5.0 g/dL Magnesium Result Value Ref Range Magnesium 2.01 1.60 - 2.40 mg/dL CBC Result Value Ref Range WBC 8.9 4.4 - 11.3 x10*3/uL nRBC 0.0 0.0 - 0.0 /100 WBCs RBC 3.29 (L) 4.50 - 5.90 x10*6/uL Hemoglobin 10.1 (L) 13.5 - 17.5 g/dL Hematocrit 30.6 (L) 41.0 - 52.0 % MCV 93 80 - 100 fL MCH 30.7 26.0 - 34.0 pg MCHC 33.0 32.0 - 36.0 g/dL RDW 13.0 11.5 - 14.5 % Platelets 338 150 - 450 x10*3/uL MPV 10.4 7.5 - 11.5 fL XR CHEST 2 VIEW WITH OBLIQUES; 05/11/2023 9:27 am INDICATION: Signs/Symptoms:s/p CABG. COMPARISON: Chest radiograph 05/10/[address] scan 05/05/2023 FINDINGS: PA and lateral radiographs, including dual energy subtraction images, are available for interpretation. In addition, single plane tomographic images are also available. Status post prior median sternotomy and CABG with intact sternal cerclage wires. The cardiomediastinal silhouette is stable in size and configuration,persistently enlarged. There is similar mild bibasilar atelectasis with small pleural effusions, better seen on lateral projection. There is no pulmonary edema, in setting of low lung volumes. There is no pneumothorax. No acute osseous abnormality. IMPRESSION: 1. Similar mild bibasilar atelectasis and small pleural effusions. 2. Stable enlargement of cardiomediastinal silhouette without cornelio pulmonary edema or pneumothorax. Signed by: Mauro Lund 05/11/2023 10:01 AM Dictation workstation: [id number] IMPRESSION & PLAN: POD # 5 s/p CABG x2 ALVAREZ-LAD; SVG graft - Increase activity/ ambulation; PT/OT - Encourage IS, C/DB; respiratory therapy; wean O2 as tae - Cardiac rehab referral - Continue cardiac meds: ASA, BB statin - Pain and anticonstipation meds - Maintain chest tubes until output down/removal ok with surgeon; monitor 1v CXRs while in place - 2v CXR 05/11 - Epicardial wires cut at the skin prior to discharge - Optimize nutrition and electrolytes Rhythm - Tele: NSR HR 80-90 - Continue metoprolol 50 mg BID - Adjust medications as tolerated - Tele until discharge Acute Blood Loss Anemia Hematocrit Date Value Ref Range Status 05/12/2023 30.6 (L) 41.0 - 52.0 % Final 05/11/2023 33.6 (L) 41.0 - 52.0 % Final 05/10/2023 30.7 (L) 41.0 - 52.0 % Final - MV, PO Iron x1mo - Daily labs, transfuse as indicated Thrombocytopenia Platelets Date Value Ref Range Status 05/12/2023 338 150 - 450 x10*3/uL Final 05/11/2023 304 150 - 450 x10*3/uL Final 05/10/2023 128 (L) 150 - 450 x10*3/uL Final - Etiology likely postop/CPB related - Continue to trend with daily CBCs Volume/Electrolyte Status: Preop wt 86.9; Chronic Systolic HF EF 30- 35%, Ischemic cardiomyopathy - Weight: 84.5, 85.6 - HF following recs appreciated on 05/12 --- repeat 2d echo; ordered on 05/12 --- Initiate Empagliflozin - Adjust diuresis as needed for postop cardiac surgery hypervolemia - Replete electrolytes for hypokalemia/hypomagnesemia/hypophosphatemia as needed - Started Losartan 25 mg daily - Daily weights and strict I&Os - Daily RFP while admitted Hypertension - SBP last 24 hours 110-143 - continue BB - Losartan 25 mg daily Hyperlipidemia: -continue statin -follow up lipid panel with PCP/ cardio as appropriate GERD - Cont PPI - Avoid taking pills on an empty stomach - Eat small frequent meals - eat sitting up in the chair - avoid acidic foods Nicotine dependency - offered nicotine replacement - Aggressive pulmonary hygiene - wean O2 for O2 sats > 92% - ABGs PRN - Smoking cessation education was provided to the patient. Cessation encouraged. Physiological and physical aspects of tobacco addiction as well as strategies for quitting were discussed. 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 Patient denies chest pain, SOB, orthopnea, PND, leg swelling, dizziness. Losartan 25 mg PO was started. Net I/O negative 2.2 liters in 24 hours. Given Lasix 20 mg IVP x 1 yesterday. Telemetry showing sinus rhythm. Objective Data: Last Recorded Vitals: Vitals: 05/11/23 2215 05/12/23 0056 05/12/23 0516 05/12/23 1000 BP: 158/90 94/60 (!) 130/92 116/75 BP Location: Right arm Right arm Patient Position: Lying Lying Pulse: 100 97 105 85 Resp: 17 20 18 18 Temp: 36.6 C (97.9 F) 36.7 C (98.1 F) 36.1 C (97 F) 36.2 C (97.2 F) TempSrc: Temporal Temporal Temporal Temporal SpO2: 94% 93% 94% 93% Weight: 84.5 kg (186 lb 4.6 oz) Height: Last Labs: CBC - 05/12/2023: 12:29 PM 8.9 10.1 338 30.6 CMP - 05/11/2023: 2:43 PM 9.6 5.8 30 --- 0.5 4.4 4.1 20 52 PTT - 05/07/2023: 11:58 PM 1.2 13.5 27 TROPHS Date/Time Value Ref Range Status 05/05/2023 06:59 PM 17,382 0 - 53 ng/L Final Comment: result 05/04/2023 05:29 PM 22,510 0 - 53 ng/L Final Comment: result Previous result verified on 05/04/2023 1339 on specimen/case [id number] called with component [facility] for procedure Troponin I, High Sensitivity with value 53,345 ng/L. 05/04/2023 02:20 AM 53,345 0 - 53 ng/L Final HGBA1C Date/Time Value Ref Range Status 05/04/2023 05:00 PM 5.9 see below % Final LDLCALC Date/Time Value Ref Range Status 05/04/2023 05:00 PM 73 140 - 190 mg/dL Final Comment: Near Borderline AGE Desirable Optimal High High Very High 0-19 Y 0 - 109 --- 110-129 >/= 130 ---- 20-24 Y 0 - 119 --- 120-159 >/= 160 ---- >24 Y 0 - 99 100-129 130-159 160-189 >/=190 VLDL Date/Time Value Ref Range Status 05/04/2023 05:00 PM 18 0 - 40 mg/dL Final Last I/O: I/O last 3 completed shifts: In: 846 (10 mL/kg) [P.O.:840; I.V.:6 (0.1 mL/kg)] Out: 4100 (48.5 mL/kg) [Urine:4100 (1.3 mL/kg/hr)] Weight: 84.5 kg Inpatient Medications: Scheduled medications Medication Dose Route Frequency acetaminophen 650 mg oral q4h aspirin 81 mg oral Daily atorvastatin 80 mg oral Daily clopidogrel 75 mg oral Daily docusate sodium 100 mg oral BID DULoxetine 30 mg oral Daily influenza 0.5 mL intramuscular During hospitalization gabapentin 300 mg oral q8h heparin (porcine) 5,000 Units subcutaneous q8h iron polysaccharides 150 mg oral Daily lidocaine 1 patch transdermal Daily losartan 25 mg oral Daily melatonin 5 mg oral Nightly methocarbamol 500 mg oral q6h CARMEN metoprolol tartrate 50 mg oral BID multivitamin with minerals 1 tablet oral Daily pantoprazole 40 mg oral Daily before breakfast perflutren protein A microsphere 0.5 mL intravenous Once in imaging polyethylene glycol 17 g oral BID PRN medications Medication naloxone oxyCODONE oxyCODONE Continuous Medications Medication Dose Last Rate Physical Exam: Constitutional: General: Well developed adult without acute distress Appearance: Normal appearance. HENT: Head: Normocephalic and atraumatic. JVD at the clavicle Eyes: Conjunctiva/sclera: Conjunctivae normal. Cardiovascular: Rate and Rhythm: Normal rate and regular rhythm. Heart sounds: Normal heart sounds. No murmurs or gallups. Extremities: No edema Pulmonary: Effort: Pulmonary effort is normal. No respiratory distress. Breath sounds: Normal breath sounds bilaterally. No wheezing or rales. No cough. Abdominal: General: There is no distension. Active bowel sounds. Palpations: Abdomen is soft and non-tender. Skin: General: Skin is warm and dry. Comments: Median sternotomy incision c/d/I, well approximated Assessment/Plan 57 y/o Male with PMHx of HTN, HLD, active smoker, chronic pain, presenting with severe substernal chest pain, found to have lateral STEMI. LHC showed mid LAD 99% occlusion, severe disease ramus, diagonal branch. LVEF 30%, RWMA of LAD territory and lateral wall. S/p CABG x 2 (ALVAREZ to LAD, SVG to Om1) on 05/07/23. Most recent 2-D echo (05/04/23) revealed LVEF 30-35%, hypokinetic apex, anterior wall and distal segment. #HFrEF, LVEF 30-35% not in overt decompensated state, with adequate perfusion #Ischemic cardiomyopathy/CAD #s/p CABG x 2 (ALVAREZ-LAD, SVG-OM1) on 05/07/23 #Active cigarette smoking Recommendations: -Repeat 2-D echo -Start Empagliflozin 10 mg PO daily. -Continue rest of medical management. Will need outpatient HF clinic follow up on discharge HF service will continue to follow for optimization of GDMT regimen. Discussed with HF attending, Dr. Xu Lucas. Signed: David Reyna MD Heart Failure service. Associated attestation - Mian Lucas MD - 05/12/2023 1:51 PM EDT I reviewed the resident/fellow's documentation and discussed the patient with the resident/fellow. I agree with the resident/fellow's medical decision making as documented in the note. * Shonna Cid APRN-BUNGY JUMP MASTER - 05/11/2023 2:06 PM EDT CARDIAC SURGERY DAILY PROGRESS NOTE Morgan Latham is a 57 y.o. male presenting with Mr. Latham 57yo M with PMHx of HTN, DLD, GERD, tobacco use disorder and chronic pain (rotator cuff, spinal stenosis, lumbar radiculopathy) who presented to the ED with cc of chest pain. Pt noted that his CP started about 3 weeks ago. Initially it would last 3 mins and would only happen at night, it was always substernal and was 10/10 in severity. The pain would go away on its own so pt didn't do anything about it. The pain cont. and started lasting longer and longer each time, eventually happening even in the morning. Pt was not exerting himselfwhen this was happening and almost all of these times, he was resting in bed. Pt became scared and decided to seek emergent medical care. Pt denies n/v/c/d, no SOB or cold/cough like symptoms, no burning with urination, increased urinary frequency or urinary urgency. OSH COURSE: He arrived at the [place] [facility] and was seen to have high lateral/anterior ST elevated in leads I andaVL with reciprocal inferolateral changes/ ST depression and elevated trops. 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 Pt was seen to have multivessel disease on [facility], a balloon pump was placed and pt was started on heparin gtt, and nitro gtt and transferred to [facility] for CABG eval. OPERATIVE PROCEDURES Dr Trevino on 05/07/23 Creation Bypass Graft Coronary Artery [place] CORONARY ARTERY BYP W/VEIN & ARTERY GRAFT 2 VEIN Via median sternotomy on cardiopulmonary bypass urgent coronary artery revascularization 1. ALVAREZ to LAD 2. Saphenous vein graft to CTICU course Transfer to 3 on 05/10 Objective BP 106/75 Pulse 97 Temp 36.4 C (97.5 F) (Temporal) Resp 19 Ht 1.727 m (5' 7.99 ) Wt 85.6 kg (188 lb 11.4 oz) SpO2 93% BMI 28.70 kg/m Pain Score: 9 3 Day Weight Change: -4.1 kg (-9 lb 0.6 oz) per day Heart Rate: [85-108] Temp: [35.9 C (96.7 F)-36.9 C (98.4 F)] Resp: [18-34] BP: (106-127)/(73-81) Weight: [85.6 kg (188 lb 11.4 oz)] SpO2: [92 %-94 %] Intake and Output Intake/Output Summary (Last 24 hours) at 05/11/2023 1406 Last data filed at 05/11/2023 0953 Gross per 24 hour Intake 720 ml Output 2750 ml Net -2030 ml Physical Exam Physical Exam Constitutional: Appearance: Normal appearance. HENT: Head: Normocephalic and atraumatic. Mouth/Throat: Mouth: Mucous membranes are moist. Pharynx: Oropharynx is clear. Eyes: Conjunctiva/sclera: Conjunctivae normal. Cardiovascular: Rate and Rhythm: Normal rate and regular rhythm. Pulses: Normal pulses. Heart sounds: Normal heart sounds. Pulmonary: Effort: Pulmonary effort is normal. Breath sounds: Normal breath sounds. Comments: Diminished breath sounds Sternum stable Abdominal: General: Abdomen is flat. Palpations: Abdomen is soft. Comments: No BM Genitourinary: Comments: Voids independently Musculoskeletal: Cervical back: Neck supple. Comments: Deconditioned Skin: Capillary Refill: Capillary refill takes less than 2 seconds. Comments: MSI well approx, no s/sx of infections Neurological: General: No focal deficit present. Mental Status: He is alert and oriented to person, place, and time. Psychiatric: Mood and Affect: Mood normal. Behavior: Behavior normal. Medications Scheduled medications acetaminophen, 650 mg, oral, q4h Or acetaminophen, 650 mg, rectal, q4h aspirin, 81 mg, oral, Daily Or aspirin, 81 mg, oral, Daily Or aspirin, 150 mg, rectal, Daily atorvastatin, 80 mg, oral, Daily clopidogrel, 75 mg, oral, Daily docusate sodium, 100 mg, oral, BID DULoxetine, 30 mg, oral, Daily influenza, 0.5 mL, intramuscular, During hospitalization gabapentin, 300 mg, oral, q8h heparin (porcine), 5,000 Units, subcutaneous, q8h hydrALAZINE, 25 mg, oral, q8h iron polysaccharides, 150 mg, oral, Daily lidocaine, 1 patch, transdermal, Daily melatonin, 5 mg, oral, Nightly methocarbamol, 500 mg, oral, q6h CARMEN metoprolol tartrate, 25 mg, oral, BID multivitamin with minerals, 1 tablet, oral, Daily pantoprazole, 40 mg, oral, Daily before breakfast Or pantoprazole, 40 mg, intravenous, Daily before breakfast perflutren protein A microsphere, 0.5 mL, intravenous, Once in imaging polyethylene glycol, 17 g, oral, BID Continuous medications PRN medications PRN medications: naloxone, oxyCODONE, oxyCODONE Labs Results for orders placed or performed during the hospital encounter of 05/03/23 (from the past 24 hour(s)) Renal function panel Result Value Ref Range Glucose 140 (H) 74 - 99 mg/dL Sodium 135 (L) 136 - 145 mmol/L Potassium 3.8 3.5 - 5.3 mmol/L Chloride 99 98 - 107 mmol/L Bicarbonate 22 21 - 32 mmol/L Anion Gap 18 10 - 20 mmol/L Urea Nitrogen 19 6 - 23 mg/dL Creatinine 0.90 0.50 - 1.30 mg/dL eGFR >90 >60 mL/min/1.73m*2 Calcium 9.0 8.6 - 10.6 mg/dL Phosphorus 3.4 2.5 - 4.9 mg/dL Albumin 3.7 3.4 - 5.0 g/dL Magnesium Result Value Ref Range Magnesium 2.09 1.60 - 2.40 mg/dL Calcium, ionized Result Value Ref Range POCT Calcium, Ionized 1.14 1.1 - 1.33 mmol/L POCT GLUCOSE Result Value Ref Range POCT Glucose 121 (H) 74 - 99 mg/dL Prepare RBC: 4 Units Result Value Ref Range PRODUCT CODE F4964X61 Unit Number [id number] Unit ABO O Unit RH POS XM INTEP COMP Dispense Status RE Blood Expiration Date May 28, 2023 23:59 EDT PRODUCT BLOOD TYPE 5100 UNIT VOLUME 350 PRODUCT CODE D9478N30 Unit Number [id number] Unit ABO O Unit RH POS XM INTEP COMP Dispense Status RE Blood Expiration Date May 29, 2023 23:59 EDT PRODUCT BLOOD TYPE 5100 UNIT VOLUME 350 PRODUCT CODE [id number] Unit Number [id number] Unit ABO O Unit RH POS XM INTEP COMP Dispense Status RE Blood Expiration Date May 29, 2023 23:59 EDT PRODUCT BLOOD TYPE 5100 UNIT VOLUME 350 PRODUCT CODE [id number] Unit Number [id number] Unit ABO O Unit RH POS XM INTEP COMP Dispense Status RE Blood Expiration Date May 29, 2023 23:59 EDT PRODUCT BLOOD TYPE 5100 UNIT VOLUME 350 POCT GLUCOSE Result Value Ref Range POCT Glucose 130 (H) 74 - 99 mg/dL XR CHEST 2 VIEW WITH OBLIQUES; 05/11/2023 9:27 am INDICATION: Signs/Symptoms:s/p CABG. COMPARISON: Chest radiograph 05/10/[address] scan 05/05/2023 FINDINGS: PA and lateral radiographs, including dual energy subtraction images, are available for interpretation. In addition, single plane tomographic images are also available. Status post prior median sternotomy and CABG with intact sternal cerclage wires. The cardiomediastinal silhouette is stable in size and configuration,persistently enlarged. There is similar mild bibasilar atelectasis with small pleural effusions, better seen on lateral projection. There is no pulmonary edema, in setting of low lung volumes. There is no pneumothorax. No acute osseous abnormality. IMPRESSION: 1. Similar mild bibasilar atelectasis and small pleural effusions. 2. Stable enlargement of cardiomediastinal silhouette without cornelio pulmonary edema or pneumothorax. Signed by: Mauro Lund 05/11/2023 10:01 AM Dictation workstation: [id number] IMPRESSION & PLAN: POD # 4 s/p CABG x2 ALVAREZ-LAD; SVG graft - Increase activity/ ambulation; PT/OT - Encourage IS, C/DB; respiratory therapy; wean O2 as tae - Cardiac rehab referral - Continue cardiac meds: ASA, BB statin - Pain and anticonstipation meds - Maintain chest tubes until output down/removal ok with surgeon; monitor 1v CXRs while in place - 2v CXR 05/11 - Epicardial wires cut at the skin prior to discharge - Optimize nutrition and electrolytes Rhythm - Tele: NSR HR 82-108 - Continue metoprolol 50 mg BID - Adjust medications as tolerated - Tele until discharge Acute Blood Loss Anemia Hematocrit Date Value Ref Range Status 05/10/2023 30.7 (L) 41.0 - 52.0 % Final 05/09/2023 30.1 (L) 41.0 - 52.0 % Final 05/09/2023 28.0 (L) 41.0 - 52.0 % Final 05/08/2023 32.1 (L) 41.0 - 52.0 % Final - MV, PO Iron x1mo - Daily labs, transfuse as indicated Thrombocytopenia Platelets Date Value Ref Range Status 05/10/2023 128 (L) 150 - 450 x10*3/uL Final 05/09/2023 144 (L) 150 - 450 x10*3/uL Final 05/09/2023 142 (L) 150 - 450 x10*3/uL Final 05/08/2023 158 150 - 450 x10*3/uL Final - Etiology likely postop/CPB related - Continue to trend with daily CBCs Volume/Electrolyte Status: Preop wt 86.9 - Weight: 85.6 - Adjust diuresis as needed for postop cardiac surgery hypervolemia - Replete electrolytes for hypokalemia/hypomagnesemia/hypophosphatemia as needed - Started Losartan 25 mg daily - Daily weights and strict I&Os - Daily RFP while admitted Hypertension - SBP last 24 hours 110-143 - continue BB -Consider ACEis/ [facility]BS once bp stable Hyperlipidemia: -continue statin -follow up lipid panel with PCP/ cardio as appropriate GERD - Cont PPI - Avoid taking pills on an empty stomach - Eat small frequent meals - eat sitting up in the chair - avoid acidic foods Nicotine dependency - offered nicotine replacement - Aggressive pulmonary hygiene - wean O2 for O2 sats > 92% - ABGs PRN - Smoking cessation education was provided to the patient. Cessation encouraged. Physiological and physical aspects of tobacco addiction as well as strategies for quitting were discussed. - Counseling was given focusing on the harmful effects of this addiction especially given the patient's medical condition(s) which will be worsened because of the chemicals in tobacco OA Chronic back Pain - PT/OT - Hot and cold packs - Acetaminophen - Cont oxy and gabapentin - No NSAIDs for 3 months after cardiac surgery; if NSAIDs needed after 3 months, clear use with drop forge operator before starting - Reviewed on 05/11 OARRS 30 day MME AVG /day 60 Prophylaxis DVT Prophylaxis - SCDs/TEDS - Ambulation/OOB - Heparin SQ - PPI Code Status: Full Code Dispo - PT/OT recs home - Would benefit from homecare for carepath and RN visits - Anticipate discharge 2-3 days, pending diuresis and 2vcxr - Will continue to assess discharge needs [facility] Team Pager [phone] 05/11/2023 2:06 PM * Mike Ramirez MD - 05/10/2023 1:41 PM EDT Morgan Latham is a 57 y.o. male on day 7 of admission presenting with Coronary arteriography abnormal. Subjective Stable overnight, mild/moderate pain. Objective Physical Exam Constitutional: Appearance: Normal appearance. HENT: Head: Normocephalic. Cardiovascular: Rate and Rhythm: Normal rate and regular rhythm. Neurological: Mental Status: He is alert. Last Recorded Vitals Blood pressure 127/72, pulse 95, temperature 36.6 C (97.9 F), temperature source Temporal, resp. rate (!) 41, height 1.727 m (5' 7.99 ), weight 90.5 kg (199 lb 8.3 oz), SpO2 92 %. Intake/Output last 3 Shifts: I/O last 3 completed shifts: In: 2338.8 (25.8 mL/kg) [P.O.:800; I.V.:1138.8 (12.6 mL/kg); IV Piggyback:400] Out: 2355 (26 mL/kg) [Urine:2145 (0.7 mL/kg/hr); Chest Tube:210] Weight: 90.5 kg Relevant Results Cr .79 Hgb 8.7 Plt 128 Assessment/Plan Principal Problem: Coronary arteriography abnormal Active Problems: STEMI (ST elevation myocardial infarction) (CMS/HCC) Acute systolic heart failure (CMS/HCC) Angina pectoris (CMS/HCC) Atherosclerotic heart disease of [place] coronary artery with unspecified angina pectoris (CMS/HCC) Post-op pain Imp/Plan 57 y/o male pod3 cabgx2, preop iabp (removed pod1), EF40%, Hx of HTN, HLD, chronic pain/opioid, smoking, GERD. Overall improved. Will increase oxycodone dosing, continue home cymbalta, gabapentin, and increase melatonin. Hydralazine and metoprolol being uptitrated. Diurese today with 60mg IV lasix ASA/STATIN/PLAVIX Discontinue lines, urinary catheter, and can transfer to floor. I spent 37 minutes in the professional and overall care of this patient. Mike Ramirez MD * Rhoda Raphael, PT - 05/10/2023 12:41 PM EDT Physical Therapy Physical Therapy Evaluation & Treatment Patient Name: Morgan Latham Today's Date: 05/10/2023 Time Calculation Start Time: 1128 Stop Time: 1200 Time Calculation (min): 32 min Assessment/Plan PT Assessment PT Assessment Results: Decreased strength, Decreased endurance, Impaired balance, Decreased mobility Rehab Prognosis: Good Evaluation/Treatment Tolerance: Patient tolerated treatment well Medical Staff Made Aware: Yes End of Session Communication: Bedside nurse End of Session Patient Position: Bed, 3 rail up IP OR SWING BED PT PLAN Inpatient or Swing Bed: Inpatient PT Plan Treatment/Interventions: Bed mobility, Transfer training, Gait training, Stair training, Balance training, Strengthening, Endurance training, Therapeutic activity, Therapeutic exercise PT Plan: Skilled PT PT Frequency: 3 times per week PT Discharge Recommendations: Low intensity level of continued care PT Recommended Transfer Status: Assist x1 Subjective General Visit Information: General Reason for Referral: 57 yr old male s/p CABGx2 Referred By: Dr. Trevino Past Medical History Relevant to Rehab: HTN, DLD, GERD, active smoker, and chronic pain (rotator cuff, spinal stenosis, lumbar radiculopathy) Missed Visit: Yes Missed Visit Reason: (Pt remains intubated at this time with IABP. Possible removal and extubation today. Will hold however until medically appropriate.) Family/Caregiver Present: No Prior to Session Communication: Bedside nurse Patient Position Received: Bed, 3 rail up General Comment: Awake, alert and willing to participate in therapy session. 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) Leisure: Enjoys hunting Precautions: Precautions Hearing/Visual Limitations: WFL Medical Precautions: Cardiac precautions, Fall precautions, Oxygen therapy device and L/min Post-Surgical Precautions: Move in the Tube Precautions Comment: MAP <80, SpO2 >92% (IABP removed 05/08) Vital Signs: Vital Signs Heart Rate: 92 (End of session - 99) Heart Rate Source: Monitor Resp: (!) 28 (End of session 0 32) SpO2: 96 % (End of session - 97) BP: 134/85 (EOB - 135/82; End of session - 140/83) MAP (mmHg): 87 (EOB: 98; End of session: 99) BP Method: Automatic Patient Position: Lying (Sitting EOB during session) Objective Pain: Pain Assessment Pain Assessment: 0-10 Pain Score: 0 - No pain Cognition: Cognition Overall Cognitive Status: Within Functional Limits Orientation Level: Oriented X4 Attention: Within Functional Limits Safety/Judgement: Within Functional Limits General Assessments: General Observation General Observation: Call light in reach, supine in bed at end of session. Activity Tolerance Activity Tolerance Comments: Noted SOB with ambulation however SpO2 stable Sensation Light Touch: No apparent deficits Sharp/Dull: No apparent deficits Strength Strength Comments: Not formally assessed 2/2 recent surgery, however at least 3/5 shown through functional mobility Postural Control Postural Control: Within Functional Limits Static Sitting Balance Static Sitting-Balance Support: Bilateral upper extremity supported Static Sitting-Level of Assistance: Close supervision Static Standing Balance Static Standing-Balance Support: Bilateral upper extremity supported Static Standing-Level of Assistance: Contact guard Static Standing-Comment/Number of Minutes: FWW (Cues for hand placement and proper use of AD) Functional Assessments: Bed Mobility Bed Mobility: Yes Bed Mobility 1 Bed Mobility 1: Supine to sitting, Sitting to supine Level of Assistance 1: Contact guard Bed Mobility Comments 1: HOB elevated, cues for hand placement and proper sequencing - log roll Transfers Transfer: Yes Transfer 1 Transfer From 1: Sit to, Stand to Transfer to 1: Sit, Stand Technique 1: Sit to stand, Stand to sit Transfer Device 1: Walker Transfer Level of Assistance 1: Contact guard Trials/Comments 1: Cues for hand placement and proper use of AD Ambulation/Gait Training Ambulation/Gait Training Performed: Yes Ambulation/Gait Training 1 Surface 1: Level tile Device 1: Rolling walker Assistance 1: Contact guard Comments/Distance (ft) 1: ~300ft (Decreased tamar, SOB/short fasts breaths - cues to slow breathing throughout ambulation. Stable Spo2) Stairs Stairs: No Extremity/Trunk Assessments: RUE RUE : Within Functional Limits LUE LUE: Within Functional Limits RLE RLE : Within Functional Limits LLE LLE : Within Functional Limits Treatments: Therapeutic Exercise Therapeutic Exercise Performed: Yes Therapeutic Exercise Activity 1: 1x10 reps of incentive spirometer: <1500 Therapeutic Activity Therapeutic Activity Performed: Yes Therapeutic Activity 1: Increased time sitting EOB prior and post ambulation for line management. Pt with good upright posture and no instability noted. Pt with intermittent UE support. Therapeutic Activity 2: Education: MITT (handout provided and reviewed with the pt), log roll, use of AD, use of incentive spirometer. Increased time for skilled ICU line/tube management for safe functional mobiltiy. Outcome Measures: [facility] Basic Mobility Turning from your back to your side while in a flat bed without using bedrails: A little Moving from lying on your back to sitting on the side of a flat bed without using bedrails: A little Moving to and from bed to chair (including a wheelchair): A little Standing up from a chair using your arms (e.g. wheelchair or bedside chair): A little To walk in hospital room: A little Climbing 3-5 steps with railing: A little Basic Mobility - Total Score: 18 FSS-ICU Ambulation: Walks >/ or equal to 150 feet with supervision Rolling: Supervision or set-up only Sitting: Supervision or set-up only Transfer [id number]: Supervision or set-up only Transfer [id number]: Supervision or set-up only Total Score: 25 Encounter Problems Encounter Problems (Active) Balance Pt will demonstrated ability to score at least 24/28 on the Tinetti balance assessment tool to ensure safety upon D/C. (Progressing) Start: 05/10/23 Expected End: 05/24/23 Mobility Pt will demonstrated ability to ambulate >/=400ft with proper form and no balance deficits for safe home going. (Progressing) Start: 05/10/23 Expected End: 05/24/23 Pain - Adult Transfers Pt will be able to complete 5X STS from lowest bed height with UE assist and RW <30 seconds withstable vitals and RPD </=3/10 and RPE </=13/20 for improved functional mobility (Progressing) Start: 05/10/23 Expected End: 05/24/23 Education Documentation Handouts, taught by Rhoda Raphael PT at 05/10/2023 12:40 PM. Learner: Patient Readiness: Acceptance Method: Explanation, Handout, Demonstration Response: Verbalizes Understanding, Demonstrated Understanding Comment: MITT Precautions, taught by Rhoda Raphael PT at 05/10/2023 12:40 PM. Learner: Patient Readiness: Acceptance Method: Explanation, Handout, Demonstration Response: Verbalizes Understanding, Demonstrated Understanding Comment: MITT Body Mechanics, taught by Rhoda Raphael PT at 05/10/2023 12:40 PM. Learner: Patient Readiness: Acceptance Method: Explanation, Handout, Demonstration Response: Verbalizes Understanding, Demonstrated Understanding Comment: MITT Mobility Training, taught by Rhoda Raphael PT at 05/10/2023 12:40 PM. Learner: Patient Readiness: Acceptance Method: Explanation, Handout, Demonstration Response: Verbalizes Understanding, Demonstrated Understanding Comment: MITT Education Comments No comments found. * Mariela Rene, 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 - 05/10/2023 7:43 AM EDT CTICU Progress Note Subjective Overnight events: CPAP 5/5, appropriate oxygenation. Remains on epi 0.02 mcg/kg/min. Scheduled Medications: acetaminophen, 650 mg, oral, q4h Or acetaminophen, 650 mg, rectal, q4h aspirin, 81 mg, oral, Daily Or aspirin, 81 mg, oral, Daily Or aspirin, 150 mg, rectal, Daily atorvastatin, 80 mg, oral, Daily clopidogrel, 75 mg, oral, Daily docusate sodium, 100 mg, oral, BID DULoxetine, 30 mg, oral, Daily influenza, 0.5 mL, intramuscular, During hospitalization gabapentin, 300 mg, oral, q8h heparin (porcine), 5,000 Units, subcutaneous, q8h hydrALAZINE, 25 mg, oral, q8h insulin lispro, 0-15 Units, subcutaneous, q4h lidocaine, 1 patch, transdermal, Daily methocarbamol, 1,000 mg, intravenous, q8h metoprolol tartrate, 12.5 mg, oral, BID pantoprazole, 40 mg, oral, Daily before breakfast Or pantoprazole, 40 mg, intravenous, Daily before breakfast perflutren protein A microsphere, 0.5 mL, intravenous, Once in imaging polyethylene glycol, 17 g, oral, BID sodium phosphate, 15 mmol, intravenous, Once Continuous Medications: lactated Ringer's, 5 mL/hr, Last Rate: 5 mL/hr (05/10/23 0502) PRN Medications: PRN medications: calcium gluconate, calcium gluconate, dextrose OR glucagon, hydrALAZINE, HYDROmorphone, magnesium sulfate, magnesium sulfate, melatonin, naloxone, oxyCODONE, oxyCODONE, oxygen, potassium chloride, potassium chloride Objective Vitals: Most Recent: Vitals: 05/10/23 0700 BP: 134/62 Pulse: 87 Resp: (!) 30 Temp: SpO2: 99% 24hr Min/Max: Temp Min: 36.9 C (98.4 F) Max: 36.9 C (98.4 F) Pulse Min: 74 Max: 117 BP Min: 111/69 Max: 151/80 Resp Min: 13 Max: 45 SpO2 Min: 91 % Max: 100 % I/O: I/O last 2 completed shifts: In: 2272.8 (25.1 mL/kg) [P.O.:800; I.V.:1072.8 (11.9 mL/kg); IV Piggyback:400] Out: 1560 (17.2 mL/kg) [Urine:1420 (0.7 mL/kg/hr); Chest Tube:140] Weight: 90.5 kg Hemodynamic parameters for last 24 hours: PAP: (19-44)/(9-25) 40/25 CO: [7.2 L/min-7.4 L/min] 7.4 L/min CI: [2.5 L/min/m2-3.5 L/min/m2] 3.3 L/min/m2 Vent settings: Vent Mode: Volume control/assist control FiO2 (%): [40 %] 40 % PEEP/CPAP (cm H2O): [5 cm H20] 5 cm H20 WV SUP: [5 cm H20] 5 cm H20 LDA: CVC 05/07/23 Double lumen Right Internal jugular (Active) Placement Date/Time: 05/07/23 (c) 1545 Hand Hygiene Performed Prior to CVC Insertion: Yes Site Prep: Chlorhexidine Site Prep Agent has Completely Dried Before Insertion: Yes All 5 Sterile Barriers Used (Gloves, Gown, Cap, Mask, Large Sterile Lydia... Number of days: 0 Introducer 05/07/23 Internal jugular Right (Active) Placement Date/Time: 05/07/23 (c) 1545 Hand Hygiene Completed: Yes Location: Internal jugular Orientation: Right Placement Verified: Pressure tracing changes;Transesophageal echocardiogram Number of days: 0 Arterial Line 05/07/23 Left Brachial (Active) Placement Date/Time: 05/07/23 (c) 1530 Size: 20 G Orientation: Left Location: Brachial Securement Method: Transparent dressing Patient Tolerance: Tolerated well Number of days: 0 Intra Aortic Balloon Pump (Active) No placement date or time found. Insertion Site: Right femoral Sutured: Yes Verification by X-ray: Yes Number of days: ETT 7.5 mm (Active) Placement Date/Time: 05/07/23 2100 Placed by External Staff?: Other (Comment) Single Lumen Tube Size: 7.5 mm Cuffed: Yes Location: Oral Number of days: 0 Urethral Catheter Coude 16 Fr. (Active) Placement Date/Time: 05/07/23 1615 Placed by: Nawaf Avery Hand Hygiene Completed: Yes Catheter Type: Coude Tube Size (Fr.): 16 Fr. Urine Returned: Yes Number of days: 0 Chest Tube 1 Left Pleural 28 Fr (Active) Placement Date/Time: 05/07/231809 Placed by: Lula Tube Number: 1 Chest Tube Orientation: Left Chest Tube Location: Pleural Chest Tube Drain Tube Size (Fr): 28 Fr Number of days: 0 Chest Tube 1 Right Pleural 28 Fr (Active) Placement Date/Time: 05/07/232049 Placed by: sindhu Hand Hygiene Completed: Yes Tube Number: 1 Chest Tube Orientation: Right Chest Tube Location: Pleural Chest Tube Drain Tube Size (Fr): 28 Fr Chest Tube Drainage System: Suction Number of days: 0 Y Chest Tube 1 and 2 1 Anterior Mediastinal 28 Fr. 2 Posterior Mediastinal 28 Fr. (Active) Placement Date/Time: 05/07/232048 Placed by: Sindhu Hand Hygiene Completed: Yes Tube Number 1: 1 Chest Tube Orientation 1: Anterior Chest Tube Location 1: Mediastinal Size (Fr.) 1: 28 Fr. Number ofSutures Placed 1: 1 Tube Number 2: 2 Ches... Number of days: 0 Physical Exam: Neuro: Alert and oriented, no focal neuro deficits, following commands, CAM negative, equal strength bilaterally HEENT: normocephalic Cardiac: NSR, V wires VVI backup @ 50, normal S1 S2 Pulmonary: 2L NC, symmetrical chest expansion, lung sounds equal bilaterally GI: abomen soft, nontender : bautista catheter in place making clear yellow urine MSK: equal strength bilatearlly Constitutional: acutely ill male in ICU bed Skin: warm, dry, midsternal incision dressing intact Lab/Radiology/Diagnostic Review: Results for orders placed or performed during the hospital encounter of 05/03/23 (from the past 24 hour(s)) POCT GLUCOSE Result Value Ref Range POCT Glucose 122 (H) 74 - 99 mg/dL POCT GLUCOSE Result Value Ref Range POCT Glucose 124 (H) 74 - 99 mg/dL Calcium, Ionized Result Value Ref Range POCT Calcium, Ionized 1.15 1.1 - 1.33 mmol/L Renal function panel Result Value Ref Range Glucose 103 (H) 74 - 99 mg/dL Sodium 141 136 - 145 mmol/L Potassium 3.3 (L) 3.5 - 5.3 mmol/L Chloride 107 98 - 107 mmol/L Bicarbonate 20 (L) 21 - 32 mmol/L Anion Gap 17 10 - 20 mmol/L Urea Nitrogen 27 (H) 6 - 23 mg/dL Creatinine 0.99 0.50 - 1.30 mg/dL eGFR 88 >60 mL/min/1.73m*2 Calcium 8.9 8.6 - 10.6 mg/dL Phosphorus 2.9 2.5 - 4.9 mg/dL Albumin 3.6 3.4 - 5.0 g/dL Magnesium Result Value Ref Range Magnesium 2.28 1.60 - 2.40 mg/dL CBC Result Value Ref Range WBC 11.8 (H) 4.4 - 11.3 x10*3/uL nRBC 0.0 0.0 - 0.0 /100 WBCs RBC 3.17 (L) 4.50 - 5.90 x10*6/uL Hemoglobin 9.8 (L) 13.5 - 17.5 g/dL Hematocrit 30.1 (L) 41.0 - 52.0 % MCV 95 80 - 100 fL MCH 30.9 26.0 - 34.0 pg MCHC 32.6 32.0 - 36.0 g/dL RDW 13.7 11.5 - 14.5 % Platelets 144 (L) 150 - 450 x10*3/uL MPV 11.9 (H) 7.5 - 11.5 fL Blood Gas Arterial Full Panel Unsolicited Result Value Ref Range POCT pH, Arterial 7.49 (H) 7.38 - 7.42 pH POCT pCO2, Arterial 20 (L) 38 - 42 mm Hg POCT pO2, Arterial 86 85 - 95 mm Hg POCT SO2, Arterial 98 94 - 100 % POCT Oxy Hemoglobin, Arterial 95.6 94.0 - 98.0 % POCT Hematocrit Calculated, Arterial 13.0 (L) 41.0 - 52.0 % POCT Sodium, Arterial 142 136 - 145 mmol/L POCT Potassium, Arterial 2.5 (LL) 3.5 - 5.3 mmol/L POCT Chloride, Arterial 119 (H) 98 - 107 mmol/L POCT Ionized Calcium, Arterial 0.98 (L) 1.10 - 1.33 mmol/L POCT Glucose, Arterial 91 74 - 99 mg/dL POCT Lactate, Arterial 0.7 0.4 - 2.0 mmol/L POCT Base Excess, Arterial -7.9 (L) -2.0 - 3.0 mmol/L POCT HCO3 Calculated, Arterial 15.2 (L) 22.0 - 26.0 mmol/L POCT Hemoglobin, Arterial 4.2 (LL) 13.5 - 17.5 g/dL POCT Anion Gap, Arterial 10 10 - 25 mmo/L Patient Temperature 37.0 degrees Celsius POCT GLUCOSE Result Value Ref Range POCT Glucose 120 (H) 74 - 99 mg/dL Calcium, Ionized Result Value Ref Range POCT Calcium, Ionized 1.22 1.1 - 1.33 mmol/L CBC Result Value Ref Range WBC 10.8 4.4 - 11.3 x10*3/uL nRBC 0.0 0.0 - 0.0 /100 WBCs RBC 2.80 (L) 4.50 - 5.90 x10*6/uL Hemoglobin 8.7 (L) 13.5 - 17.5 g/dL Hematocrit 30.7 (L) 41.0 - 52.0 % MCV 110 (H) 80 - 100 fL MCH 31.1 26.0 - 34.0 pg MCHC 28.3 (L) 32.0 - 36.0 g/dL RDW 13.9 11.5 - 14.5 % Platelets 128 (L) 150 - 450 x10*3/uL MPV 11.2 7.5 - 11.5 fL Magnesium Result Value Ref Range Magnesium 1.96 1.60 - 2.40 mg/dL Renal Function Panel Result Value Ref Range Glucose 104 (H) 74 - 99 mg/dL Sodium 136 136 - 145 mmol/L Potassium 4.4 3.5 - 5.3 mmol/L Chloride 107 98 - 107 mmol/L Bicarbonate 21 21 - 32 mmol/L Anion Gap 12 10 - 20 mmol/L Urea Nitrogen 22 6 - 23 mg/dL Creatinine 0.79 0.50 - 1.30 mg/dL eGFR >90 >60 mL/min/1.73m*2 Calcium 8.5 (L) 8.6 - 10.6 mg/dL Phosphorus 2.2 (L) 2.5 - 4.9 mg/dL Albumin 3.3 (L) 3.4 - 5.0 g/dL XR chest 1 view Result Date: 05/08/2023 wetread [AP radiograph of the chest was provided.] [Endotracheal tube noted with tip projecting approximately [6.4] cm above the vamshi. Enteric tube seen coursing below the level diaphragm with tip [out of the field of view.] [Right] IJ [place]-Andree catheter with tip overlying the [right] [main pulmonary artery.] IABP with radiopaque marker overlying the proximal descending thoracic aorta. Surgicalclips overlie the [cardiomediastinal silhouette. Postsurgical changes from median sternotomy. Chesttubes in unchanged position.]] CARDIOMEDIASTINAL SILHOUETTE: [Cardiomediastinal silhouette is stable in size and configuration.] LUNGS: [Low lung volumes contributing to bronchovascular crowding. Hazy bibasilar opacities favored to represent atelectasis. No focal consolidation, pleural effusion, orpneumothorax.] ABDOMEN: [No remarkable upper abdominal findings.] BONES: [No acute osseous changes.] IMPRESSION: [Pulmonary artery catheter with tip overlying the right main pulmonary artery. No focal consolidation, pleural effusion, or pneumothorax. [Postsurgical changes and additional] medical devices as described above. ] [] Additional Labs: All morning labwork reviewed. Assessment/Plan Assessment: Mr. Latham 57yo M with PMHx of HTN, DLD, GERD, active smoker, and chronic pain (rotator cuff, spinal stenosis, lumbar radiculopathy), now s/p CABGx2 with Dr. Trevino on 05/07. Plan: NEURO: chronic pain hx, lumbar radiculopathy, rotator cuff, spinal stenosis. Following commands, neuro intact, CAM negative. Received SAP blocks 05/08 from acute pain service. Pain uncontrolled this AM. Poor sleep. Left hand global numbness and tingling, more swollen. --> - Serial neuro and pain assessments - Prn dilaudid 0.4mg, continue oxycodone 15 mg PRN, add oxycodone 20 mg PRN - continue PO robaxin - acute pain following - PT Consult, OOB to chair as tolerated, chair position if not tolerated - CAM ICU score qshift - Sleep/wake cycle hygiene - continue home cymbalta - continue home gabapentin - add melatonin - LUE DVT US - Hold home Percocet 10/325mg, celecoxib 200mg CV: Patient has a history of HTN, HLD, CAD with IABP in place, and is s/p CABGx2 with Dr. Trevino on 05/07. Echo Pre/Post: Pre- EF 35%, +PFO (L to R shunt); Post- EF 45%, +PFO. Arrived to ICU on epinephrine and clevidipine infusions, clevidipine weaned off. Ventricular pacing wires, NSR. Weaned off epi yesterday. Trending hypertensive. --> - Continue ASA, plavix - continue home atorvastatin - continue hydralazine 25 mg TID - continue hydralazine 10 mg IV q4hrs PRN for MAP <80 - increase metoprolol to 25 mg BID - Target SvO2 > 60, CI > 2.2 - Continuous EKG and ABP monitoring - consult heart failure for long-term management - Hold home atenolol 50mg PULM: No pulm hx. Currently on 2L NC with appropriate gas exchange. --> - Wean FiO2 maintaining SpO2 >92%. - ABGs as needed - IS q1h and OOB to chair when extubated GI: History of GERD. No post-op BM yet.--> - Diet: regular - Docusate and miralax BID - Continue PPI : No history of renal disease, baseline serum creatinine 0.8-0.9. Postop creatinine stable near baseline. Bautista catheter in place making clear yellow UOP, given lasix today for diuresis.--> - Continue bautista catheter for strict I/Os. - Goal negative - RFP as clinically indicated - Replete electrolytes per CTICU protocol ENDO: No endo hx. Euglycemic. --> - Maintain BG <180, insulin per protocol - ISS HEME: Acute blood loss anemia. No S/S of bleeding.-> - Monitor drain output volume and characteristics - CBC daily - SCDs for DVT prophylaxis - SQH - Last type and screen: 05/10 ID: No hx of ID. Afebrile, no leukocytosis. Completed sonido-op ancef. --> - Trend temp q4h Skin: - Every shift skin assessment per nursing and weekly ICU skin rounds Prophylaxis: DVT prophylaxis: SCDs GI prophylaxis: PPI Therapy Consulted: PT/OT Code: Full G: Line Discontinue all lines and drains F: Family: will update when availabile A, B, C, D, E, F bundle reviewed. Dispo: LT3 pending bed availability I spent 25 minutes in the professional and overall care of this patient. * Rudy Plummer MD - 05/09/2023 11:53 AM EDT Postop Pain HPI - Palliative: relieved with IV analgesics and regional local anesthetics Provocative: movement Quality: burning and aching Radiation: none Severity: Intubated and sedated Timing: constant 24-HOUR OPIOID CONSUMPTION: Hydromorphone 1.6 mg Scheduled medications acetaminophen, 650 mg, oral, q4h Or acetaminophen, 650 mg, rectal, q4h aspirin, 81 mg, oral, Daily Or aspirin, 81 mg, oral, Daily Or aspirin, 150 mg, rectal, Daily atorvastatin, 80 mg, oral, Daily ceFAZolin, 2 g, intravenous, q8h clopidogrel, 75 mg, oral, Daily docusate sodium, 100 mg, oral, BID influenza, 0.5 mL, intramuscular, During hospitalization gabapentin, 300 mg, oral, q8h heparin (porcine), 5,000 Units, subcutaneous, q8h hydrALAZINE, 10 mg, oral, q8h insulin lispro, 0-15 Units, subcutaneous, q4h lidocaine, 1 patch, transdermal, Daily methocarbamol, 1,000 mg, intravenous, q8h pantoprazole, 40 mg, oral, Daily before breakfast Or pantoprazole, 40 mg, intravenous, Daily before breakfast perflutren protein A microsphere, 0.5 mL, intravenous, Once in imaging polyethylene glycol, 17 g, oral, BID Continuous medications clevidipine, 1-16 mg/hr, Last Rate: 1 mg/hr (05/09/23 1026) dexmedeTOMIDine, 0.2-1.5 mcg/kg/hr, Last Rate: 1.5 mcg/kg/hr (05/09/23 0837) EPINEPHrine, 0.01-1 mcg/kg/min, Last Rate: 0.02 mcg/kg/min (05/09/23 1051) lactated Ringer's, 5 mL/hr, Last Rate: 5 mL/hr (05/08/23 0900) PRN medications PRN medications: calcium gluconate, calcium gluconate, dextrose OR glucagon, hydrALAZINE, HYDROmorphone, magnesium sulfate, magnesium sulfate, naloxone, oxyCODONE, oxyCODONE, oxygen, potassium chloride, potassium chloride Physical Exam: Constitutional: Intubated and sedated Eyes: clear sclera Head/Neck: No apparent injury, trachea midline Respiratory/Thorax: Patent airways, thorax symmetric, breathing comfortably on ventilator Cardiovascular: no pitting edema Gastrointestinal: Nondistended Musculoskeletal: Sedated Extremities: no clubbing Neurological: Intubated and sedated Psychological: Intubated and sedated Results for orders placed or performed during the hospital encounter of 05/03/23 (from the past 24 hour(s)) Blood Gas Arterial Full Panel Unsolicited Result Value Ref Range POCT pH, Arterial 7.39 7.38 - 7.42 pH POCT pCO2, Arterial 44 (H) 38 - 42 mm Hg POCT pO2, Arterial 223 (H) 85 - 95 mm Hg POCT SO2, Arterial 99 94 - 100 % POCT Oxy Hemoglobin, Arterial 97.6 94.0 - 98.0 % POCT Hematocrit Calculated, Arterial 35.0 (L) 41.0 - 52.0 % POCT Sodium, Arterial 136 136 - 145 mmol/L POCT Potassium, Arterial 4.8 3.5 - 5.3 mmol/L POCT Chloride, Arterial 104 98 - 107 mmol/L POCT Ionized Calcium, Arterial 1.12 1.10 - 1.33 mmol/L POCT Glucose, Arterial 192 (H) 74 - 99 mg/dL POCT Lactate, Arterial 1.5 0.4 - 2.0 mmol/L POCT Base Excess, Arterial 1.3 -2.0 - 3.0 mmol/L POCT HCO3 Calculated, Arterial 26.6 (H) 22.0 - 26.0 mmol/L POCT Hemoglobin, Arterial 11.7 (L) 13.5 - 17.5 g/dL POCT Anion Gap, Arterial 10 10 - 25 mmo/L Patient Temperature 37.0 degrees Celsius FiO2 70 % [place] Panel, Arterial Unsolicited Result Value Ref Range POCT Hemoglobin, Arterial 11.7 (L) 13.5 - 17.5 g/dL POCT Oxy Hemoglobin, Arterial 97.6 94.0 - 98.0 % POCT Carboxyhemoglobin, Arterial 0.8 % POCT Methemoglobin, Arterial 0.9 0.0 - 1.5 % POCT Deoxy Hemoglobin, Arterial 0.7 0.0 - 5.0 % ACTIVATED CLOTTING TIME HIGH Result Value Ref Range POCT Activated Clotting Time High Range 433 (H) 96 - 152 sec ACTIVATED CLOTTING TIME HIGH Result Value Ref Range POCT Activated Clotting Time High Range 422 (H) 96 - 152 sec Blood Gas Arterial Full Panel Unsolicited Result Value Ref Range POCT pH, Arterial 7.39 7.38 - 7.42 pH POCT pCO2, Arterial 43 (H) 38 - 42 mm Hg POCT pO2, Arterial 295 (H) 85 - 95 mm Hg POCT SO2, Arterial 99 94 - 100 % POCT Oxy Hemoglobin, Arterial 98.2 (H) 94.0 - 98.0 % POCT Hematocrit Calculated, Arterial 34.0 (L) 41.0 - 52.0 % POCT Sodium, Arterial 135 (L) 136 - 145 mmol/L POCT Potassium, Arterial 5.6 (H) 3.5 - 5.3 mmol/L POCT Chloride, Arterial 105 98 - 107 mmol/L POCT Ionized Calcium, Arterial 1.10 1.10 - 1.33 mmol/L POCT Glucose, Arterial 194 (H) 74 - 99 mg/dL POCT Lactate, Arterial 1.7 0.4 - 2.0 mmol/L POCT Base Excess, Arterial 0.8 -2.0 - 3.0 mmol/L POCT HCO3 Calculated, Arterial 26.0 22.0 - 26.0 mmol/L POCT Hemoglobin, Arterial 11.3 (L) 13.5 - 17.5 g/dL POCT Anion Gap, Arterial 10 10 - 25 mmo/L Patient Temperature 37.0 degrees Celsius FiO2 70 % Coox Panel, Arterial Unsolicited Result Value Ref Range POCT Hemoglobin, Arterial 11.3 (L) 13.5 - 17.5 g/dL POCT Oxy Hemoglobin, Arterial 98.2 (H) 94.0 - 98.0 % POCT Carboxyhemoglobin, Arterial 0.7 % POCT Methemoglobin, Arterial 0.5 0.0 - 1.5 % POCT Deoxy Hemoglobin, Arterial 0.6 0.0 - 5.0 % TEG Clot Global Profile Unsolicited Result Value Ref Range R (Reaction Time) K 5.7 4.6 - 9.1 min K (Clot Kinetics) 2.1 0.8 - 2.1 min ANGLE 66.0 63.0 - 78.0 deg MA (Max Amplitude) K 58.0 52.0 - 69.0 mm R (Reaction Time) KH 5.7 4.3 - 8.3 min MA (Max Amplitude) RT 61.0 52.0 - 70.0 mm MA ( Olaf Amplitude) FF 21.0 15.0 - 32.0 mm FLEV 376 278 - 581 mg/dL Test Comment post protamine ACTIVATED CLOTTING TIME HIGH Result Value Ref Range POCT Activated Clotting Time High Range 96 96 - 152 sec Blood Gas Arterial Full Panel Unsolicited Result Value Ref Range POCT pH, Arterial 7.37 (L) 7.38 - 7.42 pH POCT pCO2, Arterial 48 (H) 38 - 42 mm Hg POCT pO2, Arterial 252 (H) 85 - 95 mm Hg POCT SO2, Arterial 100 94 - 100 % POCT Oxy Hemoglobin, Arterial 97.6 94.0 - 98.0 % POCT Hematocrit Calculated, Arterial 36.0 (L) 41.0 - 52.0 % POCT Sodium, Arterial 136 136 - 145 mmol/L POCT Potassium, Arterial 4.8 3.5 - 5.3 mmol/L POCT Chloride, Arterial 108 (H) 98 - 107 mmol/L POCT Ionized Calcium, Arterial 1.18 1.10 - 1.33 mmol/L POCT Glucose, Arterial 157 (H) 74 - 99 mg/dL POCT Lactate, Arterial 1.3 0.4 - 2.0 mmol/L POCT Base Excess, Arterial 1.8 -2.0 - 3.0 mmol/L POCT HCO3 Calculated, Arterial 27.7 (H) 22.0 - 26.0 mmol/L POCT Hemoglobin, Arterial 11.9 (L) 13.5 - 17.5 g/dL POCT Anion Gap, Arterial 5 (L) 10 - 25 mmo/L Patient Temperature 37.0 degrees Celsius FiO2 100 % Coox Panel, Arterial Unsolicited Result Value Ref Range POCT Hemoglobin, Arterial 11.9 (L) 13.5 - 17.5 g/dL POCT Oxy Hemoglobin, Arterial 97.6 94.0 - 98.0 % POCT Carboxyhemoglobin, Arterial 1.0 % POCT Methemoglobin, Arterial 0.9 0.0 - 1.5 % POCT Deoxy Hemoglobin, Arterial 0.5 0.0 - 5.0 % POCT GLUCOSE Result Value Ref Range POCT Glucose 185 (H) 74 - 99 mg/dL Blood Gas Arterial Full Panel Unsolicited Result Value Ref Range POCT pH, Arterial 7.50 (H) 7.38 - 7.42 pH POCT pCO2, Arterial 27 (L) 38 - 42 mm Hg POCT pO2, Arterial 71 (L) 85 - 95 mm Hg POCT SO2, Arterial 95 94 - 100 % POCT Oxy Hemoglobin, Arterial 93.1 (L) 94.0 - 98.0 % POCT Hematocrit Calculated, Arterial 35.0 (L) 41.0 - 52.0 % POCT Sodium, Arterial 139 136 - 145 mmol/L POCT Potassium, Arterial 3.8 3.5 - 5.3 mmol/L POCT Chloride, Arterial 108 (H) 98 - 107 mmol/L POCT Ionized Calcium, Arterial 1.14 1.10 - 1.33 mmol/L POCT Glucose, Arterial 160 (H) 74 - 99 mg/dL POCT Lactate, Arterial 1.9 0.4 - 2.0 mmol/L POCT Base Excess, Arterial -1.1 -2.0 - 3.0 mmol/L POCT HCO3 Calculated, Arterial 21.1 (L) 22.0 - 26.0 mmol/L POCT Hemoglobin, Arterial 11.5 (L) 13.5 - 17.5 g/dL POCT Anion Gap, Arterial 14 10 - 25 mmo/L Patient Temperature 37.0 degrees Celsius Renal function panel Result Value Ref Range Glucose 155 (H) 74 - 99 mg/dL Sodium 144 136 - 145 mmol/L Potassium 3.8 3.5 - 5.3 mmol/L Chloride 107 98 - 107 mmol/L Bicarbonate 22 21 - 32 mmol/L Anion Gap 19 10 - 20 mmol/L Urea Nitrogen 22 6 - 23 mg/dL Creatinine 1.25 0.50 - 1.30 mg/dL eGFR 67 >60 mL/min/1.73m*2 Calcium 9.2 8.6 - 10.6 mg/dL Phosphorus 2.9 2.5 - 4.9 mg/dL Albumin 4.0 3.4 - 5.0 g/dL Magnesium Result Value Ref Range Magnesium 2.47 (H) 1.60 - 2.40 mg/dL Calcium, ionized Result Value Ref Range POCT Calcium, Ionized 1.11 1.1 - 1.33 mmol/L CBC Result Value Ref Range WBC 13.0 (H) 4.4 - 11.3 x10*3/uL nRBC 0.0 0.0 - 0.0 /100 WBCs RBC 3.43 (L) 4.50 - 5.90 x10*6/uL Hemoglobin 10.5 (L) 13.5 - 17.5 g/dL Hematocrit 32.1 (L) 41.0 - 52.0 % MCV 94 80 - 100 fL MCH 30.6 26.0 - 34.0 pg MCHC 32.7 32.0 - 36.0 g/dL RDW 13.8 11.5 - 14.5 % Platelets 158 150 - 450 x10*3/uL MPV 11.4 7.5 - 11.5 fL Blood Gas Mixed Venous Unsolicited Result Value Ref Range POCT pH, Mixed 7.46 (H) 7.33 - 7.43 pH POCT pCO2, Mixed 33 (L) 41 - 51 mm Hg POCT pO2, Mixed 45 35 - 45 mm Hg POCT SO2, Mixed 75 45 - 75 % POCT Oxy Hemoglobin, Mixed 73.6 45.0 - 75.0 % POCT Base Excess, Mixed 0.3 -2.0 - 3.0 mmol/L POCT HCO3 Calculated, Mixed 23.5 22.0 - 26.0 mmol/L Patient Temperature 37.0 degrees Celsius POCT GLUCOSE Result Value Ref Range POCT Glucose 156 (H) 74 - 99 mg/dL POCT GLUCOSE Result Value Ref Range POCT Glucose 175 (H) 74 - 99 mg/dL Blood Gas Arterial Full Panel Unsolicited Result Value Ref Range POCT pH, Arterial 7.51 (H) 7.38 - 7.42 pH POCT pCO2, Arterial 28 (L) 38 - 42 mm Hg POCT pO2, Arterial 71 (L) 85 - 95 mm Hg POCT SO2, Arterial 95 94 - 100 % POCT Oxy Hemoglobin, Arterial 93.1 (L) 94.0 - 98.0 % POCT Hematocrit Calculated, Arterial 31.0 (L) 41.0 - 52.0 % POCT Sodium, Arterial 140 136 - 145 mmol/L POCT Potassium, Arterial 3.5 3.5 - 5.3 mmol/L POCT Chloride, Arterial 108 (H) 98 - 107 mmol/L POCT Ionized Calcium, Arterial 1.17 1.10 - 1.33 mmol/L POCT Glucose, Arterial 161 (H) 74 - 99 mg/dL POCT Lactate, Arterial 2.1 (H) 0.4 - 2.0 mmol/L POCT Base Excess, Arterial 0.0 -2.0 - 3.0 mmol/L POCT HCO3 Calculated, Arterial 22.3 22.0 - 26.0 mmol/L POCT Hemoglobin, Arterial 10.3 (L) 13.5 - 17.5 g/dL POCT Anion Gap, Arterial 13 10 - 25 mmo/L Patient Temperature 37.0 degrees Celsius POCT GLUCOSE Result Value Ref Range POCT Glucose 151 (H) 74 - 99 mg/dL Calcium, ionized Result Value Ref Range POCT Calcium, Ionized 1.20 1.1 - 1.33 mmol/L Magnesium Result Value Ref Range Magnesium 2.29 1.60 - 2.40 mg/dL CBC Result Value Ref Range WBC 12.3 (H) 4.4 - 11.3 x10*3/uL nRBC 0.0 0.0 - 0.0 /100 WBCs RBC 2.97 (L) 4.50 - 5.90 x10*6/uL Hemoglobin 9.3 (L) 13.5 - 17.5 g/dL Hematocrit 28.0 (L) 41.0 - 52.0 % MCV 94 80 - 100 fL MCH 31.3 26.0 - 34.0 pg MCHC 33.2 32.0 - 36.0 g/dL RDW 13.5 11.5 - 14.5 % Platelets 142 (L) 150 - 450 x10*3/uL MPV 11.3 7.5 - 11.5 fL Renal Function Panel Result Value Ref Range Glucose 138 (H) 74 - 99 mg/dL Sodium 142 136 - 145 mmol/L Potassium 3.4 (L) 3.5 - 5.3 mmol/L Chloride 107 98 - 107 mmol/L Bicarbonate 23 21 - 32 mmol/L Anion Gap 15 10 - 20 mmol/L Urea Nitrogen 27 (H) 6 - 23 mg/dL Creatinine 1.04 0.50 - 1.30 mg/dL eGFR 83 >60 mL/min/1.73m*2 Calcium 9.0 8.6 - 10.6 mg/dL Phosphorus 3.6 2.5 - 4.9 mg/dL Albumin 3.6 3.4 - 5.0 g/dL Blood Gas Arterial Full Panel Unsolicited Result Value Ref Range POCT pH, Arterial 7.50 (H) 7.38 - 7.42 pH POCT pCO2, Arterial 28 (L) 38 - 42 mm Hg POCT pO2, Arterial 90 85 - 95 mm Hg POCT SO2, Arterial 100 94 - 100 % POCT Oxy Hemoglobin, Arterial 97.7 94.0 - 98.0 % POCT Hematocrit Calculated, Arterial 22.0 (L) 41.0 - 52.0 % POCT Sodium, Arterial 140 136 - 145 mmol/L POCT Potassium, Arterial 3.1 (L) 3.5 - 5.3 mmol/L POCT Chloride, Arterial 110 (H) 98 - 107 mmol/L POCT Ionized Calcium, Arterial 1.16 1.10 - 1.33 mmol/L POCT Glucose, Arterial 128 (H) 74 - 99 mg/dL POCT Lactate, Arterial 1.0 0.4 - 2.0 mmol/L POCT Base Excess, Arterial -1.1 -2.0 - 3.0 mmol/L POCT HCO3 Calculated, Arterial 21.8 (L) 22.0 - 26.0 mmol/L POCT Hemoglobin, Arterial 7.4 (L) 13.5 - 17.5 g/dL POCT Anion Gap, Arterial 11 10 - 25 mmo/L Patient Temperature 37.0 degrees Celsius POCT GLUCOSE Result Value Ref Range POCT Glucose 132 (H) 74 - 99 mg/dL POCT GLUCOSE Result Value Ref Range POCT Glucose 122 (H) 74 - 99 mg/dL POCT GLUCOSE Result Value Ref Range POCT Glucose 124 (H) 74 - 99 mg/dL Morgan Latham is a 57 y.o. year old male patient who presented for a coronary artery bypass graft x2 with Dr. Trevino on 05/07. Acute Pain consulted for block for postoperative pain control. Plan: - Bilateral SAP SS nerve blocks performed in the CTICU on 05/08. Unable to place catheters since he is scheduled to start Plavix tomorrow. - Pain medications per primary team - Acute pain will sign off. Please don't hesitate to contact us with any questions [place]. [place] [phone] ph [phone]. Acute Pain Service * Joshua Chisholm MD - 05/09/2023 11:20 AM EDT Morgan Latham is a 57 y.o. male on day 6 of admission presenting with Coronary arteriography abnormal. Last Recorded Vitals Blood pressure 151/80, pulse 87, temperature 36.5 C (97.7 F), temperature source Temporal, resp. rate (!) 33, height 1.727 m (5' 7.99 ), weight 90.5 kg (199 lb 8.3 oz), SpO2 93 %. Intake/Output last 3 Shifts: I/O last 3 completed shifts: In: 2254.8 (24.9 mL/kg) [I.V.:632.7 (7 mL/kg); Blood:400; Other:318; IV Piggyback:704.2] Out: 2585 (28.6 mL/kg) [Urine:1995 (0.6 mL/kg/hr); Blood:250; Chest Tube:340] Weight: 90.5 kg Assessment/Plan Principal Problem: Coronary arteriography abnormal Active Problems: STEMI (ST elevation myocardial infarction) (CMS/HCC) Acute systolic heart failure (CMS/HCC) Angina pectoris (CMS/HCC) Atherosclerotic heart disease of [place] coronary artery with unspecified angina pectoris (CMS/HCC) Post-op pain This is a 57yoM with hx of HTN, HLD, active smoker, GERD and chronic pain presenting POD#2 from CABG x2 whgo is s/p IABP and acute hypoxic respiratory failure after failing multiple SBT. Neuro: Currently on dexmedetomidine for goal RASS 0 to -1 and following commands in all 4 extremities. Continue PO/topical multimodal pain therapy including APAP, robaxin, Lidoderm, and opioid to adequately control pain. Will discuss with APS for catheter placement. Continue CAM assessment and encourage restful sleep per ICU protocols. Continue to promote mobility. Will restart home Cymbalata andgabapentin. CV: Continued need for epi with marginal CI in light and will add AL reduction with hydralazine andclevidipine to optimize in light of his reduced EF. Goal MAP 70-90 and CI >2.2. Continue ASA andstatin. Pulm: Acute hypoxic respiratory failure but after PS 5/5 @ 40% overnight will attempt SBT this am. Continue aggressive pulmonary toilet and consider aim for net negative fluid balance to wean O2 requirements. Continue ASA and Plavix. Renal: Creatinine continues to decrease. Strict I&O with goal UOP >0.5 mL/kg/hr. Electrolyteprotocol. GI: NPO at this time and will continue bowel regimen with goal daily BM but advance diet as tolerated. Heme: Acute postoperative blood loss anemia with goal Hgb >7 and platelets >50. No indicationfor transfusion at this time. Endo: Will continue SSI protocol with goal BG 100-180 per post-cardiotomy goal. ID: Complete course of perioperative antibiotic. No other indications for antibiotics at this time. Skin/MSK: Surgical site is C/D/I. Continue to promote mobility once extubated. Prophy: Continue SCD, vent bundle, PPI. A-F Bundle reviewed and addressed as above with multidisciplinary rounds completed at bedside. Dispo: Continue CTICU care. Due to the high probability of life threatening clinical decompensation, the patient required critical care time evaluating and managing this patient. Critical care time included obtaining a history,examining the patient, ordering and reviewing studies, discussing, developing, and implementing a management plan, evaluating the patient's response to treatment, and discussion with other care team providers. I saw and evaluated the patient myself. I reviewed the provider's documentation and discussed the patient with the provider. Critical care time was performed excluive of billable procedures. Critical Care Time: 39 minutes Joshua Chisholm MD * Mariela Rene, 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 - 05/09/2023 7:54 AM EDT CTICU Progress Note Subjective Overnight events: CPAP 5/5, appropriate oxygenation. Remains on epi 0.02 mcg/kg/min. Scheduled Medications: acetaminophen, 650 mg, oral, q4h Or acetaminophen, 650 mg, rectal, q4h aspirin, 81 mg, oral, Daily Or aspirin, 81 mg, oral, Daily Or aspirin, 150 mg, rectal, Daily atorvastatin, 80 mg, oral, Daily ceFAZolin, 2 g, intravenous, q8h clopidogrel, 75 mg, oral, Daily docusate sodium, 100 mg, oral, BID influenza, 0.5 mL, intramuscular, During hospitalization heparin (porcine), 5,000 Units, subcutaneous, q8h insulin lispro, 0-15 Units, subcutaneous, q4h lidocaine, 1 patch, transdermal, Daily methocarbamol, 1,000 mg, intravenous, q8h pantoprazole, 40 mg, oral, Daily before breakfast Or pantoprazole, 40 mg, intravenous, Daily before breakfast perflutren protein A microsphere, 0.5 mL, intravenous, Once in imaging polyethylene glycol, 17 g, oral, BID Continuous Medications: dexmedeTOMIDine, 0.2-1.5 mcg/kg/hr, Last Rate: 1 mcg/kg/hr (05/09/23 0420) EPINEPHrine, 0.01-1 mcg/kg/min, Last Rate: 0.02 mcg/kg/min (05/08/23 2202) lactated Ringer's, 5 mL/hr, Last Rate: 5 mL/hr (05/08/23 0900) PRN Medications: PRN medications: calcium gluconate, calcium gluconate, dextrose OR glucagon, hydrALAZINE, HYDROmorphone, magnesium sulfate, magnesium sulfate, naloxone, oxyCODONE, oxygen, potassium chloride, potassium chloride Objective Vitals: Most Recent: Vitals: 05/09/23 0600 BP: Pulse: 74 Resp: (!) 28 Temp: SpO2: 96% 24hr Min/Max: Temp Min: 36.5 C (97.7 F) Max: 38.3 C (100.9 F) Pulse Min: 70 Max: 96 Resp Min: 16 Max: 39 SpO2 Min: 91 % Max: 100 % I/O: I/O last 2 completed shifts: In: 1061.3 (11.7 mL/kg) [I.V.:611.3 (6.8 mL/kg); IV Piggyback:450] Out: 1275 (14.1 mL/kg) [Urine:1140 (0.5 mL/kg/hr); Chest Tube:135] Weight: 90.5 kg Hemodynamic parameters for last 24 hours: PAP: (21-33)/(8-20) 33/17 CO: [4.5 L/min-7.3 L/min] 7.3 L/min CI: [2.2 L/min/m2-3.6 L/min/m2] 2.6 L/min/m2 Vent settings: Vent Mode: Pressure support FiO2 (%): [40 %] 40 % S RR: [16] 16 S VT: [550 mL] 550 mL PEEP/CPAP (cm H2O): [0 cm H20-8 cm H20] 5 cm H20 WV SUP: [0 cm H20-8 cm H20] 5 cm H20 MAP (cm H2O): [11] 11 LDA: CVC 05/07/23 Double lumen Right Internal jugular (Active) Placement Date/Time: 05/07/23 (c) 1545 Hand Hygiene Performed Prior to CVC Insertion: Yes Site Prep: Chlorhexidine Site Prep Agent has Completely Dried Before Insertion: Yes All 5 Sterile Barriers Used (Gloves, Gown, Cap, Mask, Large Sterile Lydia... Number of days: 0 Introducer 05/07/23 Internal jugular Right (Active) Placement Date/Time: 05/07/23 (c) 1545 Hand Hygiene Completed: Yes Location: Internal jugular Orientation: Right Placement Verified: Pressure tracing changes;Transesophageal echocardiogram Number of days: 0 Arterial Line 05/07/23 Left Brachial (Active) Placement Date/Time: 05/07/23 (c) 1530 Size: 20 G Orientation: Left Location: Brachial Securement Method: Transparent dressing Patient Tolerance: Tolerated well Number of days: 0 Intra Aortic Balloon Pump (Active) No placement date or time found. Insertion Site: Right femoral Sutured: Yes Verification by X-ray: Yes Number of days: ETT 7.5 mm (Active) Placement Date/Time: 05/07/23 2100 Placed by External Staff?: Other (Comment) Single Lumen Tube Size: 7.5 mm Cuffed: Yes Location: Oral Number of days: 0 Urethral Catheter Coude 16 Fr. (Active) Placement Date/Time: 05/07/23 161 Placed by: Nawaf Avery Hand Hygiene Completed: Yes Catheter Type: Coude Tube Size (Fr.): 16 Fr. Urine Returned: Yes Number of days: 0 Chest Tube 1 Left Pleural 28 Fr (Active) Placement Date/Time: 05/07/231809 Placed by: Lula Tube Number: 1 Chest Tube Orientation: Left Chest Tube Location: Pleural Chest Tube Drain Tube Size (Fr): 28 Fr Number of days: 0 Chest Tube 1 Right Pleural 28 Fr (Active) Placement Date/Time: 05/07/232049 Placed by: sindhu Hand Hygiene Completed: Yes Tube Number: 1 Chest Tube Orientation: Right Chest Tube Location: Pleural Chest Tube Drain Tube Size (Fr): 28 Fr Chest Tube Drainage System: Suction Number of days: 0 Y Chest Tube 1 and 2 1 Anterior Mediastinal 28 Fr. 2 Posterior Mediastinal 28 Fr. (Active) Placement Date/Time: 05/07/232048 Placed by: Sindhu Hand Hygiene Completed: Yes Tube Number 1: 1 Chest Tube Orientation 1: Anterior Chest Tube Location 1: Mediastinal Size (Fr.) 1: 28 Fr. Number ofSutures Placed 1: 1 Tube Number 2: 2 Ches... Number of days: 0 Physical Exam: Neuro: intubated and sedated on precedex infusion, neuro intact on SAT, following commands, CAM negative, equal strength bilaterally HEENT: normocephalic, RIJ CVC, PERRL, ETT in place Cardiac: NSR, V wires VVI backup @ 50, IABP 1:2, normal S1 S2 Pulmonary: intubated on MV, on CPAP, symmetrical chest expansion, lung sounds equal bilaterally GI: abomen soft, nontender : bautista catheter in place making clear yellow urine MSK: equal strength bilatearlly Constitutional: critically ill adult male intubated with R groin IABP Skin: warm, dry, midsternal incision dressing intact Lab/Radiology/Diagnostic Review: Results for orders placed or performed during the hospital encounter of 05/03/23 (from the past 24 hour(s)) POCT GLUCOSE Result Value Ref Range POCT Glucose 148 (H) 74 - 99 mg/dL Blood Gas Arterial Full Panel Unsolicited Result Value Ref Range POCT pH, Arterial 7.47 (H) 7.38 - 7.42 pH POCT pCO2, Arterial 32 (L) 38 - 42 mm Hg POCT pO2, Arterial 70 (L) 85 - 95 mm Hg POCT SO2, Arterial 96 94 - 100 % POCT Oxy Hemoglobin, Arterial 94.0 94.0 - 98.0 % POCT Hematocrit Calculated, Arterial 33.0 (L) 41.0 - 52.0 % POCT Sodium, Arterial 139 136 - 145 mmol/L POCT Potassium, Arterial 4.3 3.5 - 5.3 mmol/L POCT Chloride, Arterial 109 (H) 98 - 107 mmol/L POCT Ionized Calcium, Arterial 1.17 1.10 - 1.33 mmol/L POCT Glucose, Arterial 142 (H) 74 - 99 mg/dL POCT Lactate, Arterial 1.2 0.4 - 2.0 mmol/L POCT Base Excess, Arterial 0.1 -2.0 - 3.0 mmol/L POCT HCO3 Calculated, Arterial 23.3 22.0 - 26.0 mmol/L POCT Hemoglobin, Arterial 11.1 (L) 13.5 - 17.5 g/dL POCT Anion Gap, Arterial 11 10 - 25 mmo/L Patient Temperature 37.0 degrees Celsius Blood Gas Mixed Venous Full Panel Unsolicited Result Value Ref Range POCT pH, Mixed 7.43 7.33 - 7.43 pH POCT pCO2, Mixed 37 (L) 41 - 51 mm Hg POCT pO2, Mixed 36 35 - 45 mm Hg POCT SO2, Mixed 55 45 - 75 % POCT Oxy Hemoglobin, Mixed 53.9 45.0 - 75.0 % POCT Hematocrit Calculated, Mixed 32.0 (L) 41.0 - 52.0 % POCT Sodium, Mixed 140 136 - 145 mmol/L POCT Potassium, Mixed 4.2 3.5 - 5.3 mmol/L POCT Chloride, Mixed 109 (H) 98 - 107 mmol/L POCT Ionized Calcium, Mixed 1.16 1.10 - 1.33 mmol/L POCT Glucose, Mixed 133 (H) 74 - 99 mg/dL POCT Lactate, Mixed 1.1 0.4 - 2.0 mmol/L POCT Base Excess, Mixed 0.4 -2.0 - 3.0 mmol/L POCT HCO3 Calculated, Mixed 24.6 22.0 - 26.0 mmol/L POCT Hemoglobin, Mixed 10.7 (L) 13.5 - 17.5 g/dL POCT Anion Gap, Mixed 11 10 - 25 mmo/L Patient Temperature 37.0 degrees Celsius Blood Gas Arterial Full Panel Unsolicited Result Value Ref Range POCT pH, Arterial 7.46 (H) 7.38 - 7.42 pH POCT pCO2, Arterial 39 38 - 42 mm Hg POCT pO2, Arterial 80 (L) 85 - 95 mm Hg POCT SO2, Arterial 97 94 - 100 % POCT Oxy Hemoglobin, Arterial 95.6 94.0 - 98.0 % POCT Hematocrit Calculated, Arterial 44.0 41.0 - 52.0 % POCT Sodium, Arterial 136 136 - 145 mmol/L POCT Potassium, Arterial 4.2 3.5 - 5.3 mmol/L POCT Chloride, Arterial 103 98 - 107 mmol/L POCT Ionized Calcium, Arterial 1.19 1.10 - 1.33 mmol/L POCT Glucose, Arterial 214 (H) 74 - 99 mg/dL POCT Lactate, Arterial 1.1 0.4 - 2.0 mmol/L POCT Base Excess, Arterial 3.7 (H) -2.0 - 3.0 mmol/L POCT HCO3 Calculated, Arterial 27.7 (H) 22.0 - 26.0 mmol/L POCT Hemoglobin, Arterial 14.7 13.5 - 17.5 g/dL POCT Anion Gap, Arterial 10 10 - 25 mmo/L Patient Temperature 37.0 degrees Celsius FiO2 21 % Coox Panel, Arterial Unsolicited Result Value Ref Range POCT Hemoglobin, Arterial 14.7 13.5 - 17.5 g/dL POCT Oxy Hemoglobin, Arterial 95.6 94.0 - 98.0 % POCT Carboxyhemoglobin, Arterial 1.1 % POCT Methemoglobin, Arterial 0.6 0.0 - 1.5 % POCT Deoxy Hemoglobin, Arterial 2.7 0.0 - 5.0 % ACTIVATED CLOTTING TIME HIGH Result Value Ref Range POCT Activated Clotting Time High Range 90 (L) 96 - 152 sec POCT fingerstick glucose Result Value Ref Range POC Fingerstick Blood Glucose Blood Gas Arterial Full Panel Unsolicited Result Value Ref Range POCT pH, Arterial 7.38 7.38 - 7.42 pH POCT pCO2, Arterial 46 (H) 38 - 42 mm Hg POCT pO2, Arterial 181 (H) 85 - 95 mm Hg POCT SO2, Arterial 99 94 - 100 % POCT Oxy Hemoglobin, Arterial 97.6 94.0 - 98.0 % POCT Hematocrit Calculated, Arterial 41.0 41.0 - 52.0 % POCT Sodium, Arterial 133 (L) 136 - 145 mmol/L POCT Potassium, Arterial 3.9 3.5 - 5.3 mmol/L POCT Chloride, Arterial 104 98 - 107 mmol/L POCT Ionized Calcium, Arterial 1.12 1.10 - 1.33 mmol/L POCT Glucose, Arterial 238 (H) 74 - 99 mg/dL POCT Lactate, Arterial 0.8 0.4 - 2.0 mmol/L POCT Base Excess, Arterial 1.5 -2.0 - 3.0 mmol/L POCT HCO3 Calculated, Arterial 27.2 (H) 22.0 - 26.0 mmol/L POCT Hemoglobin, Arterial 13.8 13.5 - 17.5 g/dL POCT Anion Gap, Arterial 6 (L) 10 - 25 mmo/L Patient Temperature 37.0 degrees Celsius FiO2 100 % Coox Panel, Arterial Unsolicited Result Value Ref Range POCT Hemoglobin, Arterial 13.8 13.5 - 17.5 g/dL POCT Oxy Hemoglobin, Arterial 97.6 94.0 - 98.0 % POCT Carboxyhemoglobin, Arterial 0.5 % POCT Methemoglobin, Arterial 0.9 0.0 - 1.5 % POCT Deoxy Hemoglobin, Arterial 1.0 0.0 - 5.0 % POCT GLUCOSE Result Value Ref Range POCT Glucose 173 (H) 74 - 99 mg/dL Blood Gas Arterial Full Panel Unsolicited Result Value Ref Range POCT pH, Arterial 7.34 (L) 7.38 - 7.42 pH POCT pCO2, Arterial 49 (H) 38 - 42 mm Hg POCT pO2, Arterial 385 (H) 85 - 95 mm Hg POCT SO2, Arterial 100 94 - 100 % POCT Oxy Hemoglobin, Arterial 98.2 (H) 94.0 - 98.0 % POCT Hematocrit Calculated, Arterial 41.0 41.0 - 52.0 % POCT Sodium, Arterial 134 (L) 136 - 145 mmol/L POCT Potassium, Arterial 3.8 3.5 - 5.3 mmol/L POCT Chloride, Arterial 102 98 - 107 mmol/L POCT Ionized Calcium, Arterial 1.13 1.10 - 1.33 mmol/L POCT Glucose, Arterial 258 (H) 74 - 99 mg/dL POCT Lactate, Arterial 1.0 0.4 - 2.0 mmol/L POCT Base Excess, Arterial 0.0 -2.0 - 3.0 mmol/L POCT HCO3 Calculated, Arterial 26.4 (H) 22.0 - 26.0 mmol/L POCT Hemoglobin, Arterial 13.5 13.5 - 17.5 g/dL POCT Anion Gap, Arterial 9 (L) 10 - 25 mmo/L Patient Temperature 37.0 degrees Celsius FiO2 100 % Coox Panel, Arterial Unsolicited Result Value Ref Range POCT Hemoglobin, Arterial 13.5 13.5 - 17.5 g/dL POCT Oxy Hemoglobin, Arterial 98.2 (H) 94.0 - 98.0 % POCT Carboxyhemoglobin, Arterial 0.8 % POCT Methemoglobin, Arterial 0.6 0.0 - 1.5 % POCT Deoxy Hemoglobin, Arterial 0.4 0.0 - 5.0 % ACTIVATED CLOTTING TIME HIGH Result Value Ref Range POCT Activated Clotting Time High Range 510 (H) 96 - 152 sec Blood Gas Arterial Full Panel Unsolicited Result Value Ref Range POCT pH, Arterial 7.43 (H) 7.38 - 7.42 pH POCT pCO2, Arterial 42 38 - 42 mm Hg POCT pO2, Arterial 268 (H) 85 - 95 mm Hg POCT SO2, Arterial 100 94 - 100 % POCT Oxy Hemoglobin, Arterial 98.5 (H) 94.0 - 98.0 % POCT Hematocrit Calculated, Arterial 35.0 (L) 41.0 - 52.0 % POCT Sodium, Arterial 135 (L) 136 - 145 mmol/L POCT Potassium, Arterial 4.5 3.5 - 5.3 mmol/L POCT Chloride, Arterial 104 98 - 107 mmol/L POCT Ionized Calcium, Arterial 1.07 (L) 1.10 - 1.33 mmol/L POCT Glucose, Arterial 207 (H) 74 - 99 mg/dL POCT Lactate, Arterial 1.4 0.4 - 2.0 mmol/L POCT Base Excess, Arterial 3.2 (H) -2.0 - 3.0 mmol/L POCT HCO3 Calculated, Arterial 27.9 (H) 22.0 - 26.0 mmol/L POCT Hemoglobin, Arterial 11.5 (L) 13.5 - 17.5 g/dL POCT Anion Gap, Arterial 8 (L) 10 - 25 mmo/L Patient Temperature 37.0 degrees Celsius FiO2 70 % Coox Panel, Arterial Unsolicited Result Value Ref Range POCT Hemoglobin, Arterial 11.5 (L) 13.5 - 17.5 g/dL POCT Oxy Hemoglobin, Arterial 98.5 (H) 94.0 - 98.0 % POCT Carboxyhemoglobin, Arterial 0.7 % POCT Methemoglobin, Arterial 0.3 0.0 - 1.5 % POCT Deoxy Hemoglobin, Arterial 0.4 0.0 - 5.0 % ACTIVATED CLOTTING TIME HIGH Result Value Ref Range POCT Activated Clotting Time High Range 446 (H) 96 - 152 sec Blood Gas Mixed Venous Unsolicited Result Value Ref Range POCT pH, Mixed 7.44 (H) 7.33 - 7.43 pH POCT pCO2, Mixed 37 (L) 41 - 51 mm Hg POCT pO2, Mixed 40 35 - 45 mm Hg POCT SO2, Mixed 61 45 - 75 % POCT Oxy Hemoglobin, Mixed 60.6 45.0 - 75.0 % POCT Base Excess, Mixed 1.1 -2.0 - 3.0 mmol/L POCT HCO3 Calculated, Mixed 25.1 22.0 - 26.0 mmol/L Patient Temperature 37.0 degrees Celsius Blood Gas Venous Full Panel Unsolicited Result Value Ref Range POCT pH, Venous 7.36 7.33 - 7.43 pH POCT pCO2, Venous 50 41 - 51 mm Hg POCT pO2, Venous 45 35 - 45 mm Hg POCT SO2, Venous POCT Oxy Hemoglobin, Venous POCT Hematocrit Calculated, Venous POCT Sodium, Venous 135 (L) 136 - 145 mmol/L POCT Potassium, Venous 6.6 (HH) 3.5 - 5.3 mmol/L POCT Chloride, Venous 104 98 - 107 mmol/L POCT Ionized Calicum, Venous 1.09 (L) 1.10 - 1.33 mmol/L POCT Glucose, Venous 195 (H) 74 - 99 mg/dL POCT Lactate, Venous 1.4 0.4 - 2.0 mmol/L POCT Base Excess, Venous 1.9 -2.0 - 3.0 mmol/L POCT HCO3 Calculated, Venous 28.2 (H) 22.0 - 26.0 mmol/L POCT Hemoglobin, Venous POCT Anion Gap, Venous 9.0 (L) 10.0 - 25.0 mmol/L Patient Temperature 37.0 degrees Celsius FiO2 70 % Coox Panel, Venous Unsolicited Result Value Ref Range POCT Carboxyhemoglobin, Venous POCT Methemoglobin, Venous Blood Gas Venous Full Panel Unsolicited Result Value Ref Range POCT pH, Venous 7.37 7.33 - 7.43 pH POCT pCO2, Venous 49 41 - 51 mm Hg POCT pO2, Venous 46 (H) 35 - 45 mm Hg POCT SO2, Venous 77 (H) 45 - 75 % POCT Oxy Hemoglobin, Venous 76.0 (H) 45.0 - 75.0 % POCT Hematocrit Calculated, Venous 35.0 (L) 41.0 - 52.0 % POCT Sodium, Venous 135 (L) 136 - 145 mmol/L POCT Potassium, Venous 6.8 (HH) 3.5 - 5.3 mmol/L POCT Chloride, Venous 104 98 - 107 mmol/L POCT Ionized Calicum, Venous 1.09 (L) 1.10 - 1.33 mmol/L POCT Glucose, Venous 194 (H) 74 - 99 mg/dL POCT Lactate, Venous 1.4 0.4 - 2.0 mmol/L POCT Base Excess, Venous 2.3 -2.0 - 3.0 mmol/L POCT HCO3 Calculated, Venous 28.3 (H) 22.0 - 26.0 mmol/L POCT Hemoglobin, Venous 11.6 (L) 13.5 - 17.5 g/dL POCT Anion Gap, Venous 10.0 10.0 - 25.0 mmol/L Patient Temperature 37.0 degrees Celsius FiO2 70 % Coox Panel, Venous Unsolicited Result Value Ref Range POCT Carboxyhemoglobin, Venous 0.9 % POCT Methemoglobin, Venous 0.7 0.0 - 1.5 % Blood Gas Arterial Full Panel Unsolicited Result Value Ref Range POCT pH, Arterial 7.39 7.38 - 7.42 pH POCT pCO2, Arterial 44 (H) 38 - 42 mm Hg POCT pO2, Arterial 223 (H) 85 - 95 mm Hg POCT SO2, Arterial 99 94 - 100 % POCT Oxy Hemoglobin, Arterial 97.6 94.0 - 98.0 % POCT Hematocrit Calculated, Arterial 35.0 (L) 41.0 - 52.0 % POCT Sodium, Arterial 136 136 - 145 mmol/L POCT Potassium, Arterial 4.8 3.5 - 5.3 mmol/L POCT Chloride, Arterial 104 98 - 107 mmol/L POCT Ionized Calcium, Arterial 1.12 1.10 - 1.33 mmol/L POCT Glucose, Arterial 192 (H) 74 - 99 mg/dL POCT Lactate, Arterial 1.5 0.4 - 2.0 mmol/L POCT Base Excess, Arterial 1.3 -2.0 - 3.0 mmol/L POCT HCO3 Calculated, Arterial 26.6 (H) 22.0 - 26.0 mmol/L POCT Hemoglobin, Arterial 11.7 (L) 13.5 - 17.5 g/dL POCT Anion Gap, Arterial 10 10 - 25 mmo/L Patient Temperature 37.0 degrees Celsius FiO2 70 % Coox Panel, Arterial Unsolicited Result Value Ref Range POCT Hemoglobin, Arterial 11.7 (L) 13.5 - 17.5 g/dL POCT Oxy Hemoglobin, Arterial 97.6 94.0 - 98.0 % POCT Carboxyhemoglobin, Arterial 0.8 % POCT Methemoglobin, Arterial 0.9 0.0 - 1.5 % POCT Deoxy Hemoglobin, Arterial 0.7 0.0 - 5.0 % ACTIVATED CLOTTING TIME HIGH Result Value Ref Range POCT Activated Clotting Time High Range 433 (H) 96 - 152 sec ACTIVATED CLOTTING TIME HIGH Result Value Ref Range POCT Activated Clotting Time High Range 422 (H) 96 - 152 sec Blood Gas Arterial Full Panel Unsolicited Result Value Ref Range POCT pH, Arterial 7.39 7.38 - 7.42 pH POCT pCO2, Arterial 43 (H) 38 - 42 mm Hg POCT pO2, Arterial 295 (H) 85 - 95 mm Hg POCT SO2, Arterial 99 94 - 100 % POCT Oxy Hemoglobin, Arterial 98.2 (H) 94.0 - 98.0 % POCT Hematocrit Calculated, Arterial 34.0 (L) 41.0 - 52.0 % POCT Sodium, Arterial 135 (L) 136 - 145 mmol/L POCT Potassium, Arterial 5.6 (H) 3.5 - 5.3 mmol/L POCT Chloride, Arterial 105 98 - 107 mmol/L POCT Ionized Calcium, Arterial 1.10 1.10 - 1.33 mmol/L POCT Glucose, Arterial 194 (H) 74 - 99 mg/dL POCT Lactate, Arterial 1.7 0.4 - 2.0 mmol/L POCT Base Excess, Arterial 0.8 -2.0 - 3.0 mmol/L POCT HCO3 Calculated, Arterial 26.0 22.0 - 26.0 mmol/L POCT Hemoglobin, Arterial 11.3 (L) 13.5 - 17.5 g/dL POCT Anion Gap, Arterial 10 10 - 25 mmo/L Patient Temperature 37.0 degrees Celsius FiO2 70 % Coox Panel, Arterial Unsolicited Result Value Ref Range POCT Hemoglobin, Arterial 11.3 (L) 13.5 - 17.5 g/dL POCT Oxy Hemoglobin, Arterial 98.2 (H) 94.0 - 98.0 % POCT Carboxyhemoglobin, Arterial 0.7 % POCT Methemoglobin, Arterial 0.5 0.0 - 1.5 % POCT Deoxy Hemoglobin, Arterial 0.6 0.0 - 5.0 % TEG Clot Global Profile Unsolicited Result Value Ref Range R (Reaction Time) K 5.7 4.6 - 9.1 min K (Clot Kinetics) 2.1 0.8 - 2.1 min ANGLE 66.0 63.0 - 78.0 deg MA (Max Amplitude) K 58.0 52.0 - 69.0 mm R (Reaction Time) KH 5.7 4.3 - 8.3 min MA (Max Amplitude) RT 61.0 52.0 - 70.0 mm MA ( Olaf Amplitude) FF 21.0 15.0 - 32.0 mm FLEV 376 278 - 581 mg/dL Test Comment post protamine ACTIVATED CLOTTING TIME HIGH Result Value Ref Range POCT Activated Clotting Time High Range 96 96 - 152 sec Blood Gas Arterial Full Panel Unsolicited Result Value Ref Range POCT pH, Arterial 7.37 (L) 7.38 - 7.42 pH POCT pCO2, Arterial 48 (H) 38 - 42 mm Hg POCT pO2, Arterial 252 (H) 85 - 95 mm Hg POCT SO2, Arterial 100 94 - 100 % POCT Oxy Hemoglobin, Arterial 97.6 94.0 - 98.0 % POCT Hematocrit Calculated, Arterial 36.0 (L) 41.0 - 52.0 % POCT Sodium, Arterial 136 136 - 145 mmol/L POCT Potassium, Arterial 4.8 3.5 - 5.3 mmol/L POCT Chloride, Arterial 108 (H) 98 - 107 mmol/L POCT Ionized Calcium, Arterial 1.18 1.10 - 1.33 mmol/L POCT Glucose, Arterial 157 (H) 74 - 99 mg/dL POCT Lactate, Arterial 1.3 0.4 - 2.0 mmol/L POCT Base Excess, Arterial 1.8 -2.0 - 3.0 mmol/L POCT HCO3 Calculated, Arterial 27.7 (H) 22.0 - 26.0 mmol/L POCT Hemoglobin, Arterial 11.9 (L) 13.5 - 17.5 g/dL POCT Anion Gap, Arterial 5 (L) 10 - 25 mmo/L Patient Temperature 37.0 degrees Celsius FiO2 100 % Coox Panel, Arterial Unsolicited Result Value Ref Range POCT Hemoglobin, Arterial 11.9 (L) 13.5 - 17.5 g/dL POCT Oxy Hemoglobin, Arterial 97.6 94.0 - 98.0 % POCT Carboxyhemoglobin, Arterial 1.0 % POCT Methemoglobin, Arterial 0.9 0.0 - 1.5 % POCT Deoxy Hemoglobin, Arterial 0.5 0.0 - 5.0 % POCT GLUCOSE Result Value Ref Range POCT Glucose 185 (H) 74 - 99 mg/dL Blood Gas Arterial Full Panel Unsolicited Result Value Ref Range POCT pH, Arterial 7.50 (H) 7.38 - 7.42 pH POCT pCO2, Arterial 27 (L) 38 - 42 mm Hg POCT pO2, Arterial 71 (L) 85 - 95 mm Hg POCT SO2, Arterial 95 94 - 100 % POCT Oxy Hemoglobin, Arterial 93.1 (L) 94.0 - 98.0 % POCT Hematocrit Calculated, Arterial 35.0 (L) 41.0 - 52.0 % POCT Sodium, Arterial 139 136 - 145 mmol/L POCT Potassium, Arterial 3.8 3.5 - 5.3 mmol/L POCT Chloride, Arterial 108 (H) 98 - 107 mmol/L POCT Ionized Calcium, Arterial 1.14 1.10 - 1.33 mmol/L POCT Glucose, Arterial 160 (H) 74 - 99 mg/dL POCT Lactate, Arterial 1.9 0.4 - 2.0 mmol/L POCT Base Excess, Arterial -1.1 -2.0 - 3.0 mmol/L POCT HCO3 Calculated, Arterial 21.1 (L) 22.0 - 26.0 mmol/L POCT Hemoglobin, Arterial 11.5 (L) 13.5 - 17.5 g/dL POCT Anion Gap, Arterial 14 10 - 25 mmo/L Patient Temperature 37.0 degrees Celsius Renal function panel Result Value Ref Range Glucose 155 (H) 74 - 99 mg/dL Sodium 144 136 - 145 mmol/L Potassium 3.8 3.5 - 5.3 mmol/L Chloride 107 98 - 107 mmol/L Bicarbonate 22 21 - 32 mmol/L Anion Gap 19 10 - 20 mmol/L Urea Nitrogen 22 6 - 23 mg/dL Creatinine 1.25 0.50 - 1.30 mg/dL eGFR 67 >60 mL/min/1.73m*2 Calcium 9.2 8.6 - 10.6 mg/dL Phosphorus 2.9 2.5 - 4.9 mg/dL Albumin 4.0 3.4 - 5.0 g/dL Magnesium Result Value Ref Range Magnesium 2.47 (H) 1.60 - 2.40 mg/dL Calcium, ionized Result Value Ref Range POCT Calcium, Ionized 1.11 1.1 - 1.33 mmol/L CBC Result Value Ref Range WBC 13.0 (H) 4.4 - 11.3 x10*3/uL nRBC 0.0 0.0 - 0.0 /100 WBCs RBC 3.43 (L) 4.50 - 5.90 x10*6/uL Hemoglobin 10.5 (L) 13.5 - 17.5 g/dL Hematocrit 32.1 (L) 41.0 - 52.0 % MCV 94 80 - 100 fL MCH 30.6 26.0 - 34.0 pg MCHC 32.7 32.0 - 36.0 g/dL RDW 13.8 11.5 - 14.5 % Platelets 158 150 - 450 x10*3/uL MPV 11.4 7.5 - 11.5 fL Blood Gas Mixed Venous Unsolicited Result Value Ref Range POCT pH, Mixed 7.46 (H) 7.33 - 7.43 pH POCT pCO2, Mixed 33 (L) 41 - 51 mm Hg POCT pO2, Mixed 45 35 - 45 mm Hg POCT SO2, Mixed 75 45 - 75 % POCT Oxy Hemoglobin, Mixed 73.6 45.0 - 75.0 % POCT Base Excess, Mixed 0.3 -2.0 - 3.0 mmol/L POCT HCO3 Calculated, Mixed 23.5 22.0 - 26.0 mmol/L Patient Temperature 37.0 degrees Celsius POCT GLUCOSE Result Value Ref Range POCT Glucose 156 (H) 74 - 99 mg/dL POCT GLUCOSE Result Value Ref Range POCT Glucose 175 (H) 74 - 99 mg/dL Blood Gas Arterial Full Panel Unsolicited Result Value Ref Range POCT pH, Arterial 7.51 (H) 7.38 - 7.42 pH POCT pCO2, Arterial 28 (L) 38 - 42 mm Hg POCT pO2, Arterial 71 (L) 85 - 95 mm Hg POCT SO2, Arterial 95 94 - 100 % POCT Oxy Hemoglobin, Arterial 93.1 (L) 94.0 - 98.0 % POCT Hematocrit Calculated, Arterial 31.0 (L) 41.0 - 52.0 % POCT Sodium, Arterial 140 136 - 145 mmol/L POCT Potassium, Arterial 3.5 3.5 - 5.3 mmol/L POCT Chloride, Arterial 108 (H) 98 - 107 mmol/L POCT Ionized Calcium, Arterial 1.17 1.10 - 1.33 mmol/L POCT Glucose, Arterial 161 (H) 74 - 99 mg/dL POCT Lactate, Arterial 2.1 (H) 0.4 - 2.0 mmol/L POCT Base Excess, Arterial 0.0 -2.0 - 3.0 mmol/L POCT HCO3 Calculated, Arterial 22.3 22.0 - 26.0 mmol/L POCT Hemoglobin, Arterial 10.3 (L) 13.5 - 17.5 g/dL POCT Anion Gap, Arterial 13 10 - 25 mmo/L Patient Temperature 37.0 degrees Celsius POCT GLUCOSE Result Value Ref Range POCT Glucose 151 (H) 74 - 99 mg/dL Calcium, ionized Result Value Ref Range POCT Calcium, Ionized 1.20 1.1 - 1.33 mmol/L Magnesium Result Value Ref Range Magnesium 2.29 1.60 - 2.40 mg/dL CBC Result Value Ref Range WBC 12.3 (H) 4.4 - 11.3 x10*3/uL nRBC 0.0 0.0 - 0.0 /100 WBCs RBC 2.97 (L) 4.50 - 5.90 x10*6/uL Hemoglobin 9.3 (L) 13.5 - 17.5 g/dL Hematocrit 28.0 (L) 41.0 - 52.0 % MCV 94 80 - 100 fL MCH 31.3 26.0 - 34.0 pg MCHC 33.2 32.0 - 36.0 g/dL RDW 13.5 11.5 - 14.5 % Platelets 142 (L) 150 - 450 x10*3/uL MPV 11.3 7.5 - 11.5 fL Renal Function Panel Result Value Ref Range Glucose 138 (H) 74 - 99 mg/dL Sodium 142 136 - 145 mmol/L Potassium 3.4 (L) 3.5 - 5.3 mmol/L Chloride 107 98 - 107 mmol/L Bicarbonate 23 21 - 32 mmol/L Anion Gap 15 10 - 20 mmol/L Urea Nitrogen 27 (H) 6 - 23 mg/dL Creatinine 1.04 0.50 - 1.30 mg/dL eGFR 83 >60 mL/min/1.73m*2 Calcium 9.0 8.6 - 10.6 mg/dL Phosphorus 3.6 2.5 - 4.9 mg/dL Albumin 3.6 3.4 - 5.0 g/dL Blood Gas Arterial Full Panel Unsolicited Result Value Ref Range POCT pH, Arterial 7.50 (H) 7.38 - 7.42 pH POCT pCO2, Arterial 28 (L) 38 - 42 mm Hg POCT pO2, Arterial 90 85 - 95 mm Hg POCT SO2, Arterial 100 94 - 100 % POCT Oxy Hemoglobin, Arterial 97.7 94.0 - 98.0 % POCT Hematocrit Calculated, Arterial 22.0 (L) 41.0 - 52.0 % POCT Sodium, Arterial 140 136 - 145 mmol/L POCT Potassium, Arterial 3.1 (L) 3.5 - 5.3 mmol/L POCT Chloride, Arterial 110 (H) 98 - 107 mmol/L POCT Ionized Calcium, Arterial 1.16 1.10 - 1.33 mmol/L POCT Glucose, Arterial 128 (H) 74 - 99 mg/dL POCT Lactate, Arterial 1.0 0.4 - 2.0 mmol/L POCT Base Excess, Arterial -1.1 -2.0 - 3.0 mmol/L POCT HCO3 Calculated, Arterial 21.8 (L) 22.0 - 26.0 mmol/L POCT Hemoglobin, Arterial 7.4 (L) 13.5 - 17.5 g/dL POCT Anion Gap, Arterial 11 10 - 25 mmo/L Patient Temperature 37.0 degrees Celsius POCT GLUCOSE Result Value Ref Range POCT Glucose 132 (H) 74 - 99 mg/dL XR chest 1 view Result Date: 05/08/2023 wetread [AP radiograph of the chest was provided.] [Endotracheal tube noted with tip projecting approximately [6.4] cm above the vamshi. Enteric tube seen coursing below the level diaphragm with tip [out of the field of view.] [Right] IJ [place]-Andree catheter with tip overlying the [right] [main pulmonary artery.] IABP with radiopaque marker overlying the proximal descending thoracic aorta. Surgicalclips overlie the [cardiomediastinal silhouette. Postsurgical changes from median sternotomy. Chesttubes in unchanged position.]] CARDIOMEDIASTINAL SILHOUETTE: [Cardiomediastinal silhouette is stable in size and configuration.] LUNGS: [Low lung volumes contributing to bronchovascular crowding. Hazy bibasilar opacities favored to represent atelectasis. No focal consolidation, pleural effusion, orpneumothorax.] ABDOMEN: [No remarkable upper abdominal findings.] BONES: [No acute osseous changes.] IMPRESSION: [Pulmonary artery catheter with tip overlying the right main pulmonary artery. No focal consolidation, pleural effusion, or pneumothorax. [Postsurgical changes and additional] medical devices as described above. ] [] Additional Labs: All morning labwork reviewed. Assessment/Plan Assessment: Mr. Latham 57yo M with PMHx of HTN, DLD, GERD, active smoker, and chronic pain (rotator cuff, spinal stenosis, lumbar radiculopathy), now s/p CABGx2 with Dr. Trevino on 05/07. Plan: NEURO: chronic pain hx, lumbar radiculopathy, rotator cuff, spinal stenosis. Following commands, neuro intact, CAM negative. Received SAP blocks 05/08 from acute pain service. Pain improved overall. Left hand global numbness and tingling. --> - Serial neuro and pain assessments - Prn dilaudid 0.4mg, oxycodone 10mg PRN, add oxycodone 15 mg PRN - continue robaxin IV - acute pain following - PT Consult, OOB to chair as tolerated, chair position if not tolerated - CAM ICU score qshift - Sleep/wake cycle hygiene - restart home cymbalta - restart home gabapentin - Hold home Percocet 10/325mg, celecoxib 200mg CV: Patient has a history of HTN, HLD, CAD with IABP in place, and is s/p CABGx2 with Dr. Trevino on 05/07. Echo Pre/Post: Pre- EF 35%, +PFO (L to R shunt); Post- EF 45%, +PFO. Arrived to ICU on epinephrine and clevidipine infusions, clevidipine weaned off. Ventricular pacing wires, NSR. Weaned off epi today. Hypertensive. --> - Continue ASA - continue home atorvastatin - continue hydralazine 25 mg TID - continue hydralazine 10 mg IV q4hrs PRN for MAP <80 - start metoprolol 12.5 mg BID - Target SvO2 > 60, CI > 2.2 - Continuous EKG and ABP monitoring - Hold home atenolol 50mg PULM: No pulm hx. Currently intubated on ventilator, CPAP 5/5 overnight, well tolerated. R pleural,L pleural, 2x mediastinal chest tubes to wall suction, minimal serosanguinous output and no airleaks. Extubated today to ND with adequate gas exchange. --> - Wean FiO2 maintaining SpO2 >92%. - ABGs as needed - IS q1h and OOB to chair when extubated GI: History of GERD. --> - Diet: regular - Docusate and miralax BID - Continue PPI : No history of renal disease, baseline serum creatinine 0.8-0.9. Postop creatinine stable near baseline. Bautista catheter in place making clear yellow UOP, given lasix today for diuresis.--> - Continue bautista catheter for strict I/Os. - Goal negative - RFP as clinically indicated - Replete electrolytes per CTICU protocol ENDO: No endo hx. Euglycemic. --> - Maintain BG <180, insulin per protocol - ISS HEME: Acute blood loss anemia. No S/S of bleeding.-> - Monitor drain output volume and characteristics - CBC daily - SCDs for DVT prophylaxis - SQH - Last type and screen: 05/07, send in AM ID: No hx of ID. Afebrile, no leukocytosis.--> - Periop Ancef 2g x 48 hours - Trend temp q4h Skin: - Every shift skin assessment per nursing and weekly ICU skin rounds Prophylaxis: DVT prophylaxis: SCDs GI prophylaxis: PPI Therapy Consulted: PT/OT Code: Full G: Line Right IJ MAC w PAC (05/07- ) --discontinue PAC Left brachial a-line (05/07- ) Bautista catheter (05/07 - ) F: Family: will update at bedside postoperatively. A, B, C, D, E, F bundle reviewed. Dispo: Continue CTICU care. Patient seen and discussed w attending, Dr. Chisholm. I spent 50 minutes in the professional and overall care of this patient. * Joshua Chisholm MD - 05/08/2023 5:57 PM EDT This is a 57yoM with hx of HTN, HLD, active smoker, GERD and chronic pain presenting POD#1 from CABG x2 with IABP 1:2. Neuro: Currently on dexmedetomidine for goal RASS 0 to -1 and following commands in all 4 extremities. Continue PO/topical multimodal pain therapy including APAP, robaxin, Lidoderm, and opioid to adequately control pain. Will discuss with APS for catheter placement. Continue CAM assessment and encourage restful sleep per ICU protocols. Continue to promote mobility. CV: Low CI and ScVO2 this am and restarted epi for inotropic support. Currently on IABP and will attempt to wean. Goal MAP 70-90 and CI >2.2. Continue ASA and statin. Pulm: Acute postoperative pulmonary insufficiency on PS 5/5 at 40% but remaining flat and marginal ABG with hypoxia. Will plan to remove IABP in order to better mobilize to optimize respiratory mechanics before attempting to extubate. Continue aggressive pulmonary toilet and consider aim for net negative fluid balance to wean O2 requirements. Renal: Strict I&O with goal UOP >0.5 mL/kg/hr. Electrolyte protocol. GI: NPO at this time and will continue bowel regimen with goal daily BM. Heme: Acute postoperative blood loss anemia with goal Hgb >7 and platelets >50. No indicationfor transfusion at this time. Endo: Will continue SSI protocol with goal BG 100-180 per post-cardiotomy goal. ID: Complete course of perioperative antibiotic. No other indications for antibiotics at this time. Skin/MSK: Surgical site is C/D/I. Continue to promote mobility. Prophy: Continue SCD, vent bundle, PPI. A-F Bundle reviewed and addressed as above with multidisciplinary rounds completed at bedside. Dispo: Continue CTICU care. Due to the high probability of life threatening clinical decompensation, the patient required critical care time evaluating and managing this patient. Critical care time included obtaining a history,examining the patient, ordering and reviewing studies, discussing, developing, and implementing a management plan, evaluating the patient's response to treatment, and discussion with other care team providers. I saw and evaluated the patient myself. I reviewed the provider's documentation and discussed the patient with the provider. Critical care time was performed excluive of billable procedures. Critical Care Time: 42 minutes * Madelyn Birmingham LCSW - 05/08/2023 3:38 PM EDT DC PLAN: Pending hospital course, progression, and PT/OT UPDATE: IABP removed today, Intubated since post op 05/07 NOTE: When able to meet with patient and/or family to verify information, complete discharge/SDOH assessments, provide support, and developing dc planning needs. At minimum, CS to have HHC if no higher loc needed. * Sara Sheikh OT - 05/08/2023 10:47 AM EDT Occupational Therapy Therapy Communication Note Patient Name: Morgna Latham Today's Date: 05/08/2023 Discipline: Occupational Therapy Missed Visit Reason: Missed Visit Reason: Patient placed on medical hold Missed Time: Attempt at 1047 Comment: Pt. Is not medically appropriate for OT services at this time. OT to reattempt as medically appropriate and as time permits. * Rhoda Raphael PT - 05/08/2023 8:36 AM EDT Physical Therapy Therapy Communication Note Patient Name: Morgan Latham Today's Date: 05/08/2023 Discipline: Physical Therapy Missed Visit Reason: Missed Visit Reason: (Pt remains intubated at this time with IABP. Possible removal and extubation today. Will hold however until medically appropriate.) Missed Time: Attempt * Trent Rocha, PRANAV[employer]UNGY JUMP [employer]STER - 05/08/2023 8:07 AM EDT CTICU Progress Note Subjective Overnight events: Out from OR, IABP placed 1:2, epinephrine weaned off, placed on CPAP on MV. Scheduled Medications: acetaminophen, 650 mg, oral, q4h Or acetaminophen, 650 mg, rectal, q4h aspirin, 81 mg, oral, Daily Or aspirin, 81 mg, oral, Daily Or aspirin, 150 mg, rectal, Daily ceFAZolin, 2 g, intravenous, q8h [START ON 05/09/2023] clopidogrel, 75 mg, oral, Daily [OCT Hold] influenza, 0.5 mL, intramuscular, During hospitalization insulin lispro, 0-15 Units, subcutaneous, q4h pantoprazole, 40 mg, oral, Daily before breakfast Or pantoprazole, 40 mg, intravenous, Daily before breakfast [OCT Hold] perflutren protein A microsphere, 0.5 mL, intravenous, Once in imaging polyethylene glycol, 17 g, oral, Daily Continuous Medications: clevidipine, 1-16 mg/hr, Last Rate: Stopped (05/07/23 2230) dexmedeTOMIDine, 0.2-1.5 mcg/kg/hr, Last Rate: 0.8 mcg/kg/hr (05/08/23 0700) EPINEPHrine, 0-2 mcg/kg/min lactated Ringer's, 50 mL/hr lactated Ringer's, 5 mL/hr, Last Rate: 5 mL/hr (05/08/23 0100) propofol, 0-50 mcg/kg/min, Last Rate: Stopped (05/08/23 0600) PRN Medications: PRN medications: dextrose OR glucagon, HYDROmorphone, naloxone, oxyCODONE, oxygen Objective Vitals: Most Recent: Vitals: 05/08/23 0700 BP: Pulse: 72 Resp: (!) 35 Temp: SpO2: 97% 24hr Min/Max: Temp Min: 36.1 C (97 F) Max: 36.4 C (97.5 F) Pulse Min: 72 Max: 85 BP Min: 130/77 Max: 171/101 Resp Min: 10 Max: 35 SpO2 Min: 91 % Max: 100 % I/O: I/O last 2 completed shifts: In: 1346.6 (13.7 mL/kg) [I.V.:174.4 (1.8 mL/kg); Blood:400; Other:318; IV Piggyback:254.2] Out: 1690 (17.2 mL/kg) [Urine:1235 (0.5 mL/kg/hr); Blood:250; Chest Tube:205] Weight: 98 kg Hemodynamic parameters for last 24 hours: PAP: (20-25)/(-7-10) 24/9 Vent settings: Vent Mode: Pressure support FiO2 (%): [40 %-50 %] 40 % S RR: [16] 16 S VT: [50 mL-550 mL] 550 mL PEEP/CPAP (cm H2O): [0 cm H20-9 cm H20] 5 cm H20 W[place] SUP: [5 cm H20] 5 cm H20 MAP (cm H2O): [13-17] 13 LDA: CVC 05/07/23 Double lumen Right Internal jugular (Active) Placement Date/Time: 05/07/23 (c) 1545 Hand Hygiene Performed Prior to CVC Insertion: Yes Site Prep: Chlorhexidine Site Prep Agent has Completely Dried Before Insertion: Yes All 5 Sterile Barriers Used (Gloves, Gown, Cap, Mask, Large Sterile Lydia... Number of days: 0 Introducer 05/07/23 Internal jugular Right (Active) Placement Date/Time: 05/07/23 (c) 1545 Hand Hygiene Completed: Yes Location: Internal jugular Orientation: Right Placement Verified: Pressure tracing changes;Transesophageal echocardiogram Number of days: 0 Arterial Line 05/07/23 Left Brachial (Active) Placement Date/Time: 05/07/23 (c) 1530 Size: 20 G Orientation: Left Location: Brachial Securement Method: Transparent dressing Patient Tolerance: Tolerated well Number of days: 0 Intra Aortic Balloon Pump (Active) No placement date or time found. Insertion Site: Right femoral Sutured: Yes Verification by X-ray: Yes Number of days: ETT 7.5 mm (Active) Placement Date/Time: 05/07/23 2100 Placed by External Staff?: Other (Comment) Single Lumen Tube Size: 7.5 mm Cuffed: Yes Location: Oral Number of days: 0 Urethral Catheter Coude 16 Fr. (Active) Placement Date/Time: 05/07/23 1615 Placed by: Nawaf Avery Hand Hygiene Completed: Yes Catheter Type: Coude Tube Size (Fr.): 16 Fr. Urine Returned: Yes Number of days: 0 Chest Tube 1 Left Pleural 28 Fr (Active) Placement Date/Time: 05/07/231809 Placed by: Lula Tube Number: 1 Chest Tube Orientation: Left Chest Tube Location: Pleural Chest Tube Drain Tube Size (Fr): 28 Fr Number of days: 0 Chest Tube 1 Right Pleural 28 Fr (Active) Placement Date/Time: 05/07/232049 Placed by: sindhu Hand Hygiene Completed: Yes Tube Number: 1 Chest Tube Orientation: Right Chest Tube Location: Pleural Chest Tube Drain Tube Size (Fr): 28 Fr Chest Tube Drainage System: Suction Number of days: 0 Y Chest Tube 1 and 2 1 Anterior Mediastinal 28 Fr. 2 Posterior Mediastinal 28 Fr. (Active) Placement Date/Time: 05/07/232048 Placed by: Sindhu Hand Hygiene Completed: Yes Tube Number 1: 1 Chest Tube Orientation 1: Anterior Chest Tube Location 1: Mediastinal Size (Fr.) 1: 28 Fr. Number ofSutures Placed 1: 1 Tube Number 2: 2 Ches... Number of days: 0 Physical Exam: Neuro: intubated and sedated on precedex infusion, neuro intact on SAT, following commands, CAM negative, equal strength bilaterally HEENT: normocephalic, RIJ CVC, PERRL, ETT in place Cardiac: NSR, V wires VVI backup @ 50, IABP 1:2, normal S1 S2 Pulmonary: intubated on MV, on CPAP, symmetrical chest expansion, lung sounds equal bilaterally GI: abomen soft, nontender : bautista catheter in place making clear yellow urine MSK: equal strength bilatearlly Constitutional: critically ill adult male intubated with R groin IABP Skin: warm, dry, midsternal incision dressing intact Lab/Radiology/Diagnostic Review: Results for orders placed or performed during the hospital encounter of 05/03/23 (from the past 24 hour(s)) Blood Gas Arterial, COOX Unsolicited Result Value Ref Range POCT pH, Arterial 7.42 7.38 - 7.42 pH POCT pCO2, Arterial 38 38 - 42 mm Hg POCT pO2, Arterial 75 (L) 85 - 95 mm Hg POCT SO2, Arterial 95 94 - 100 % POCT Oxy Hemoglobin, Arterial 93.6 (L) 94.0 - 98.0 % POCT Base Excess, Arterial 0.3 -2.0 - 3.0 mmol/L POCT HCO3 Calculated, Arterial 24.6 22.0 - 26.0 mmol/L POCT Hemoglobin, Arterial 14.8 13.5 - 17.5 g/dL POCT Carboxyhemoglobin, Arterial 1.4 % POCT Methemoglobin, Arterial 0.3 0.0 - 1.5 % POCT Deoxy Hemoglobin, Arterial 4.7 0.0 - 5.0 % Patient Temperature 37.0 degrees Celsius Prepare RBC: 4 Units Result Value Ref Range PRODUCT CODE V8270D48 Unit Number [id number] Unit ABO O Unit RH POS XM INTEP COMP Dispense Status XM Blood Expiration Date May 28, 2023 23:59 EDT PRODUCT BLOOD TYPE 5100 UNIT VOLUME 350 PRODUCT CODE [id number] Unit Number [id number] Unit ABO O Unit RH POS XM INTEP COMP Dispense Status XM Blood Expiration Date May 29, 2023 23:59 EDT PRODUCT BLOOD TYPE 5100 UNIT VOLUME 350 PRODUCT CODE [id number] Unit Number [id number] Unit ABO O Unit RH POS XM INTEP COMP Dispense Status XM Blood Expiration Date May 29, 2023 23:59 EDT PRODUCT BLOOD TYPE 5100 UNIT VOLUME 350 PRODUCT CODE [id number] Unit Number [id number] Unit ABO O Unit RH POS XM INTEP COMP Dispense Status XM Blood Expiration Date May 29, 2023 23:59 EDT PRODUCT BLOOD TYPE 5100 UNIT VOLUME 350 POCT GLUCOSE Result Value Ref Range POCT Glucose 120 (H) 74 - 99 mg/dL ACTIVATED CLOTTING TIME HIGH Result Value Ref Range POCT Activated Clotting Time High Range 94 (L) 96 - 152 sec Blood Gas Arterial Full Panel Unsolicited Result Value Ref Range POCT pH, Arterial 7.40 7.38 - 7.42 pH POCT pCO2, Arterial 41 38 - 42 mm Hg POCT pO2, Arterial 126 (H) 85 - 95 mm Hg POCT SO2, Arterial 99 94 - 100 % POCT Oxy Hemoglobin, Arterial 97.4 94.0 - 98.0 % POCT Hematocrit Calculated, Arterial 37.0 (L) 41.0 - 52.0 % POCT Sodium, Arterial 136 136 - 145 mmol/L POCT Potassium, Arterial 4.0 3.5 - 5.3 mmol/L POCT Chloride, Arterial 106 98 - 107 mmol/L POCT Ionized Calcium, Arterial 1.11 1.10 - 1.33 mmol/L POCT Glucose, Arterial 117 (H) 74 - 99 mg/dL POCT Lactate, Arterial 0.7 0.4 - 2.0 mmol/L POCT Base Excess, Arterial 0.5 -2.0 - 3.0 mmol/L POCT HCO3 Calculated, Arterial 25.4 22.0 - 26.0 mmol/L POCT Hemoglobin, Arterial 12.4 (L) 13.5 - 17.5 g/dL POCT Anion Gap, Arterial 9 (L) 10 - 25 mmo/L Patient Temperature 37.0 degrees Celsius FiO2 100 % Coox Panel, Arterial Unsolicited Result Value Ref Range POCT Hemoglobin, Arterial 12.4 (L) 13.5 - 17.5 g/dL POCT Oxy Hemoglobin, Arterial 97.4 94.0 - 98.0 % POCT Carboxyhemoglobin, Arterial 0.7 % POCT Methemoglobin, Arterial 0.8 0.0 - 1.5 % POCT Deoxy Hemoglobin, Arterial 1.1 0.0 - 5.0 % ACTIVATED CLOTTING TIME HIGH Result Value Ref Range POCT Activated Clotting Time High Range 458 (H) 96 - 152 sec Blood Gas Arterial Full Panel Unsolicited Result Value Ref Range POCT pH, Arterial 7.45 (H) 7.38 - 7.42 pH POCT pCO2, Arterial 37 (L) 38 - 42 mm Hg POCT pO2, Arterial 538 (H) 85 - 95 mm Hg POCT SO2, Arterial 100 94 - 100 % POCT Oxy Hemoglobin, Arterial 98.6 (H) 94.0 - 98.0 % POCT Hematocrit Calculated, Arterial 30.0 (L) 41.0 - 52.0 % POCT Sodium, Arterial 135 (L) 136 - 145 mmol/L POCT Potassium, Arterial 4.9 3.5 - 5.3 mmol/L POCT Chloride, Arterial 104 98 - 107 mmol/L POCT Ionized Calcium, Arterial 1.05 (L) 1.10 - 1.33 mmol/L POCT Glucose, Arterial 157 (H) 74 - 99 mg/dL POCT Lactate, Arterial 1.5 0.4 - 2.0 mmol/L POCT Base Excess, Arterial 1.7 -2.0 - 3.0 mmol/L POCT HCO3 Calculated, Arterial 25.7 22.0 - 26.0 mmol/L POCT Hemoglobin, Arterial 10.0 (L) 13.5 - 17.5 g/dL POCT Anion Gap, Arterial 10 10 - 25 mmo/L Patient Temperature 37.0 degrees Celsius FiO2 100 % Coox Panel, Arterial Unsolicited Result Value Ref Range POCT Hemoglobin, Arterial 10.0 (L) 13.5 - 17.5 g/dL POCT Oxy Hemoglobin, Arterial 98.6 (H) 94.0 - 98.0 % POCT Carboxyhemoglobin, Arterial 0.5 % POCT Methemoglobin, Arterial 0.6 0.0 - 1.5 % POCT Deoxy Hemoglobin, Arterial 0.3 0.0 - 5.0 % ACTIVATED CLOTTING TIME HIGH Result Value Ref Range POCT Activated Clotting Time High Range 413 (H) 96 - 152 sec ACTIVATED CLOTTING TIME HIGH Result Value Ref Range POCT Activated Clotting Time High Range 465 (H) 96 - 152 sec ACTIVATED CLOTTING TIME HIGH Result Value Ref Range POCT Activated Clotting Time High Range 427 (H) 96 - 152 sec Blood Gas Arterial Full Panel Unsolicited Result Value Ref Range POCT pH, Arterial 7.38 7.38 - 7.42 pH POCT pCO2, Arterial 43 (H) 38 - 42 mm Hg POCT pO2, Arterial 105 (H) 85 - 95 mm Hg POCT SO2, Arterial 98 94 - 100 % POCT Oxy Hemoglobin, Arterial 96.9 94.0 - 98.0 % POCT Hematocrit Calculated, Arterial 29.0 (L) 41.0 - 52.0 % POCT Sodium, Arterial 136 136 - 145 mmol/L POCT Potassium, Arterial 5.5 (H) 3.5 - 5.3 mmol/L POCT Chloride, Arterial 106 98 - 107 mmol/L POCT Ionized Calcium, Arterial 1.30 1.10 - 1.33 mmol/L POCT Glucose, Arterial 152 (H) 74 - 99 mg/dL POCT Lactate, Arterial 2.3 (H) 0.4 - 2.0 mmol/L POCT Base Excess, Arterial 0.2 -2.0 - 3.0 mmol/L POCT HCO3 Calculated, Arterial 25.4 22.0 - 26.0 mmol/L POCT Hemoglobin, Arterial 9.5 (L) 13.5 - 17.5 g/dL POCT Anion Gap, Arterial 10 10 - 25 mmo/L Patient Temperature 37.0 degrees Celsius FiO2 100 % Coox Panel, Arterial Unsolicited Result Value Ref Range POCT Hemoglobin, Arterial 9.5 (L) 13.5 - 17.5 g/dL POCT Oxy Hemoglobin, Arterial 96.9 94.0 - 98.0 % POCT Carboxyhemoglobin, Arterial 0.6 % POCT Methemoglobin, Arterial 0.9 0.0 - 1.5 % POCT Deoxy Hemoglobin, Arterial 1.6 0.0 - 5.0 % ACTIVATED CLOTTING TIME HIGH Result Value Ref Range POCT Activated Clotting Time High Range 96 96 - 152 sec Blood Gas Arterial Full Panel Unsolicited Result Value Ref Range POCT pH, Arterial 7.42 7.38 - 7.42 pH POCT pCO2, Arterial 36 (L) 38 - 42 mm Hg POCT pO2, Arterial 72 (L) 85 - 95 mm Hg POCT SO2, Arterial 94 94 - 100 % POCT Oxy Hemoglobin, Arterial 92.6 (L) 94.0 - 98.0 % POCT Hematocrit Calculated, Arterial 38.0 (L) 41.0 - 52.0 % POCT Sodium, Arterial 139 136 - 145 mmol/L POCT Potassium, Arterial 4.7 3.5 - 5.3 mmol/L POCT Chloride, Arterial 106 98 - 107 mmol/L POCT Ionized Calcium, Arterial 1.20 1.10 - 1.33 mmol/L POCT Glucose, Arterial 138 (H) 74 - 99 mg/dL POCT Lactate, Arterial 1.6 0.4 - 2.0 mmol/L POCT Base Excess, Arterial -0.7 -2.0 - 3.0 mmol/L POCT HCO3 Calculated, Arterial 23.4 22.0 - 26.0 mmol/L POCT Hemoglobin, Arterial 12.7 (L) 13.5 - 17.5 g/dL POCT Anion Gap, Arterial 14 10 - 25 mmo/L Patient Temperature 37.0 degrees Celsius Magnesium Result Value Ref Range Magnesium 2.58 (H) 1.60 - 2.40 mg/dL CBC Result Value Ref Range WBC 13.7 (H) 4.4 - 11.3 x10*3/uL nRBC 0.0 0.0 - 0.0 /100 WBCs RBC 3.75 (L) 4.50 - 5.90 x10*6/uL Hemoglobin 11.7 (L) 13.5 - 17.5 g/dL Hematocrit 35.0 (L) 41.0 - 52.0 % MCV 93 80 - 100 fL MCH 31.2 26.0 - 34.0 pg MCHC 33.4 32.0 - 36.0 g/dL RDW 13.4 11.5 - 14.5 % Platelets 145 (L) 150 - 450 x10*3/uL MPV 10.7 7.5 - 11.5 fL Renal Function Panel Result Value Ref Range Glucose 141 (H) 74 - 99 mg/dL Sodium 141 136 - 145 mmol/L Potassium 4.5 3.5 - 5.3 mmol/L Chloride 107 98 - 107 mmol/L Bicarbonate 22 21 - 32 mmol/L Anion Gap 17 10 - 20 mmol/L Urea Nitrogen 15 6 - 23 mg/dL Creatinine 1.24 0.50 - 1.30 mg/dL eGFR 67 >60 mL/min/1.73m*2 Calcium 8.9 8.6 - 10.6 mg/dL Phosphorus 4.2 2.5 - 4.9 mg/dL Albumin 3.5 3.4 - 5.0 g/dL Calcium, Ionized Result Value Ref Range POCT Calcium, Ionized 1.12 1.1 - 1.33 mmol/L Coagulation Screen Result Value Ref Range Protime 13.5 (H) 9.8 - 12.8 seconds INR 1.2 (H) 0.9 - 1.1 aPTT 27 27 - 38 seconds Fibrinogen Result Value Ref Range Fibrinogen 383 200 - 400 mg/dL Blood Gas Venous Full Panel Unsolicited Result Value Ref Range POCT pH, Venous 7.43 7.33 - 7.43 pH POCT pCO2, Venous 39 (L) 41 - 51 mm Hg POCT pO2, Venous 42 35 - 45 mm Hg POCT SO2, Venous 58 45 - 75 % POCT Oxy Hemoglobin, Venous 57.2 45.0 - 75.0 % POCT Hematocrit Calculated, Venous 34.0 (L) 41.0 - 52.0 % POCT Sodium, Venous 139 136 - 145 mmol/L POCT Potassium, Venous 4.4 3.5 - 5.3 mmol/L POCT Chloride, Venous 107 98 - 107 mmol/L POCT Ionized Calicum, Venous 1.15 1.10 - 1.33 mmol/L POCT Glucose, Venous 135 (H) 74 - 99 mg/dL POCT Lactate, Venous 1.7 0.4 - 2.0 mmol/L POCT Base Excess, Venous 1.5 -2.0 - 3.0 mmol/L POCT HCO3 Calculated, Venous 25.9 22.0 - 26.0 mmol/L POCT Hemoglobin, Venous 11.4 (L) 13.5 - 17.5 g/dL POCT Anion Gap, Venous 11.0 10.0 - 25.0 mmol/L Patient Temperature 37.0 degrees Celsius POCT GLUCOSE Result Value Ref Range POCT Glucose 117 (H) 74 - 99 mg/dL POCT GLUCOSE Result Value Ref Range POCT Glucose 146 (H) 74 - 99 mg/dL Magnesium Result Value Ref Range Magnesium 2.32 1.60 - 2.40 mg/dL CALCIUM, IONIZED Result Value Ref Range POCT Calcium, Ionized 1.10 1.1 - 1.33 mmol/L Renal Function Panel Result Value Ref Range Glucose 145 (H) 74 - 99 mg/dL Sodium 143 136 - 145 mmol/L Potassium 4.2 3.5 - 5.3 mmol/L Chloride 109 (H) 98 - 107 mmol/L Bicarbonate 22 21 - 32 mmol/L Anion Gap 16 10 - 20 mmol/L Urea Nitrogen 18 6 - 23 mg/dL Creatinine 1.26 0.50 - 1.30 mg/dL eGFR 66 >60 mL/min/1.73m*2 Calcium 8.6 8.6 - 10.6 mg/dL Phosphorus 4.1 2.5 - 4.9 mg/dL Albumin 3.2 (L) 3.4 - 5.0 g/dL CBC Result Value Ref Range WBC 9.4 4.4 - 11.3 x10*3/uL nRBC 0.0 0.0 - 0.0 /100 WBCs RBC 3.37 (L) 4.50 - 5.90 x10*6/uL Hemoglobin 10.3 (L) 13.5 - 17.5 g/dL Hematocrit 31.4 (L) 41.0 - 52.0 % MCV 93 80 - 100 fL MCH 30.6 26.0 - 34.0 pg MCHC 32.8 32.0 - 36.0 g/dL RDW 13.5 11.5 - 14.5 % Platelets 143 (L) 150 - 450 x10*3/uL MPV 11.0 7.5 - 11.5 fL XR chest 1 view Result Date: 05/08/2023 wetread [AP radiograph of the chest was provided.] [Endotracheal tube noted with tip projecting approximately [6.4] cm above the vamshi. Enteric tube seen coursing below the level diaphragm with tip [out of the field of view.] [Right] IJ [place]-Andree catheter with tip overlying the [right] [main pulmonary artery.] IABP with radiopaque marker overlying the proximal descending thoracic aorta. Surgicalclips overlie the [cardiomediastinal silhouette. Postsurgical changes from median sternotomy. Chesttubes in unchanged position.]] CARDIOMEDIASTINAL SILHOUETTE: [Cardiomediastinal silhouette is stable in size and configuration.] LUNGS: [Low lung volumes contributing to bronchovascular crowding. Hazy bibasilar opacities favored to represent atelectasis. No focal consolidation, pleural effusion, orpneumothorax.] ABDOMEN: [No remarkable upper abdominal findings.] BONES: [No acute osseous changes.] IMPRESSION: [Pulmonary artery catheter with tip overlying the right main pulmonary artery. No focal consolidation, pleural effusion, or pneumothorax. [Postsurgical changes and additional] medical devices as described above. ] [] Additional Labs: All morning labwork reviewed. Assessment/Plan Assessment: Mr. Latham 57yo M with PMHx of HTN, DLD, GERD, active smoker, and chronic pain (rotator cuff, spinal stenosis, lumbar radiculopathy), now s/p CABGx2 with Dr. Trevino on 05/07. Plan: NEURO: chronic pain hx, lumbar radiculopathy, rotator cuff, spinal stenosis. Following commands, neuro intact, CAM negative. Patient is intubated and sedated precedex infusion.--> - Serial neuro and pain assessments - Continue precedex targeting RASS 0 to -1 - Prn dilaudid 0.4mg, oxycodone 10mg PRN - Add robaxin IV - Consult acute pain for single shot pain blocks - PT Consult, OOB to chair as tolerated, chair position if not tolerated - CAM ICU score qshift - Sleep/wake cycle hygiene - Hold home Cymbalta 20mg, Percocet 10/325mg, celecoxib 200mg CV: Patient has a history of HTN, HLD, CAD with IABP in place, and is s/p CABGx2 with Dr. Trevino on 05/07. Echo Pre/Post: Pre- EF 35%, +PFO (L to R shunt); Post- EF 45%, +PFO. Arrived to ICU on epinephrine and clevidipine infusions, clevidipine weaned off. Ventricular pacing wires, NSR. IABP 1:2. --> - Continue ASA - Start home atorvastatin - Continue epinephrine until IABP removed, then wean targeting SvO2 > 60, CI > 2.2 - Remove IABP today - Continuous EKG and ABP monitoring - Volume resuscitate as clinically indicated - Hold home atenolol 50mg PULM: No pulm hx. Currently intubated on ventilator, CPAP 5/5 overnight, well tolerated. R pleural,L pleural, 2x mediastinal chest tubes to wall suction, serosanguinous output.--> - Chest tubes to WS - CPAP trial today, will WTE following IABP removal - Wean FiO2 maintaining SpO2 >92%. - ABGs as needed - IS q1h and OOB to chair when extubated GI: History of GERD. --> - Diet: NPO - Docusate and miralax BID - Continue PPI until extubated : No history of renal disease, baseline serum creatinine 0.8-0.9. Postop creatinine 1.2, bautista catheter in place making clear yellow UOP.--> - Continue bautista catheter for strict I/Os. - Goal UOP 0.5ml/kg/hr - RFP as clinically indicated - Replete electrolytes per CTICU protocol ENDO: No endo hx. Postop stress hyperglycemia.--> - Maintain BG <180, insulin per protocol - ISS and accuchecks HEME: Acute blood loss anemia. No S/S of bleeding, serosanguinous chest tube output.--> - Monitor drain output volume and characteristics - CBC daily - SCDs for DVT prophylaxis. - SQH after IABP removal - Last type and screen: 05/07 ID: No hx of ID. Afebrile, no leukocytosis.\--> - Periop Ancef 2g x 48 hours - Trend temp q4h Skin: - Every shift skin assessment per nursing and weekly ICU skin rounds Prophylaxis: DVT prophylaxis: SCDs GI prophylaxis: PPI Therapy Consulted: PT/OT Code: Full G: Line Right IJ MAC w PAC (05/07- ) Left brachial a-line (05/07- ) Bautista catheter (05/07 - ) F: Family: will update at bedside postoperatively. A, B, C, D, E, F bundle reviewed. Dispo: Continue CTICU care. Patient seen and discussed w attending, Dr. Chisholm. Trent Rocha CNP CTICU 72779 I spent 35 minutes in the professional and overall care of this patient. * Laurie Petres LCSW - 05/07/2023 3:11 PM EDT 05/07/23 1508 Discharge Planning Living Arrangements Parent (pt lives with his father.) Support Systems Parent;Family members Assistance Needed No Type of Residence Private residence Do you have animals or pets at home? Yes Type of Animals or Pets two cats Home or Post Acute Services None Patient expects to be discharged to: home Does the patient need discharge transport arranged? No (In case discharge home, pt's family will provide transportation.) * Laurie Peters LCSW - 05/07/2023 12:40 PM EDT Primary contact : Morgan Yara / father / [phone], Joel Yara / brother/ [phone] PCP : Dr. Mcpherson / [facility] Planned disposition : TBD Discharge destination : TBD Payor : [employer] Status : inpatient Estimated discharge date : TBD SW met with pt at bedside to complete initial assessment for offering support and obtaining information for pt's discharge plan. Pt is alert and fully oriented. Pt reported he lives with his father in a house independently. Pt's father who is 80 years old is also fully independent and has no healthissues, so once pt discharges home, pt's father will be main caregiver and pt's other family members live near to pt, so pt expects to have full support from family members, including pt's brother, Joel who lives in 20 mins away. SW made pt aware that SW is available for issues or questions on social work, pt denied any further issues or questions on social work at the moment of assessment. SW and PCN will continue to follow and assist with discharge plan. Laurie Peters LCSW * Genny Root PT - 05/07/2023 9:25 AM EDT Physical Therapy Therapy Communication Note Patient Name: Morgan Latham Today's Date: 05/07/2023 Discipline: Physical Therapy Missed Visit Reason: Missed Visit Reason: Patient placed on medical hold (Pt going for CABG this date and has a femoral IABP. Will hold PT until after procedure.) Missed Time: Attempt, 9:22 Comment: * Maty Chambers MD - 05/07/2023 8:10 AM EDT Morgan Latham is a 57 y.o. male on day 4 of admission presenting with Coronary arteriography abnormal. Subjective Chest pain free for the night, slept well, no complaints, slightly congested with no drainage or pain. Objective Vitals: 05/07/23 0752 BP: Pulse: Resp: Temp: 36.7 C (98.1 F) SpO2: Physical Exam Constitutional: Appearance: Normal appearance. HENT: Head: Normocephalic and atraumatic. Nose: Congestion present. No rhinorrhea. Mouth/Throat: Mouth: Mucous membranes are moist. Pharynx: Oropharynx is clear. Eyes: Extraocular Movements: Extraocular movements intact. Conjunctiva/sclera: Conjunctivae normal. Cardiovascular: Rate and Rhythm: Normal rate and regular rhythm. Pulses: Normal pulses. Heart sounds: Normal heart sounds. No murmur heard. No friction rub. Pulmonary: Effort: Pulmonary effort is normal. Breath sounds: Normal breath sounds. Abdominal: General: Bowel sounds are normal. There is no distension. Palpations: Abdomen is soft. Tenderness: There is no abdominal tenderness. Musculoskeletal: Cervical back: Normal range of motion and neck supple. Skin: General: Skin is warm and dry. Neurological: General: No focal deficit present. Mental Status: He is alert and oriented to person, place, and time. Last Recorded Vitals Blood pressure 153/86, pulse 85, temperature 36.7 C (98.1 F), resp. rate 25, height 1.727 m (5' 7.99 ), weight 91.9 kg (202 lb 9.6 oz), SpO2 99 %. Intake/Output last 3 Shifts: I/O last 3 completed shifts: In: 372 (4 mL/kg) [I.V.:372 (4 mL/kg)] Out: 2225 (24.2 mL/kg) [Urine:2225 (0.7 mL/kg/hr)] Weight: 91.9 kg Relevant Results Scheduled medications acetaminophen, 975 mg, oral, q8h aspirin, 81 mg, oral, Daily atorvastatin, 40 mg, oral, Nightly carvedilol, 6.25 mg, oral, BID chlorhexidine, 15 mL, Mouth/Throat, BID DULoxetine, 20 mg, oral, BID influenza, 0.5 mL, intramuscular, During hospitalization hydrALAZINE, 10 mg, oral, TID insulin lispro, 0-10 Units, subcutaneous, TID AC mupirocin, 0.5 Application, Topical, BID pantoprazole, 40 mg, oral, Daily perflutren protein A microsphere, 0.5 mL, intravenous, Once in imaging polyethylene glycol, 17 g, oral, Daily potassium chloride CR, 20 mEq, oral, Daily ranolazine, 500 mg, oral, BID spironolactone, 12.5 mg, oral, Daily sulfur hexafluoride microsphr, 2 mL, intravenous, Once in imaging Continuous medications heparin, 0-4,000 Units/hr, Last Rate: 1,400 Units/hr (05/06/231999) nitroglycerin, 5-200 mcg/min, Last Rate: 10 mcg/min (05/07/23 0600) PRN medications PRN medications: dextrose, glucagon, guaiFENesin, oxyCODONE Results for orders placed or performed during the hospital encounter of 05/03/23 (from the past 24 hour(s)) POCT GLUCOSE Result Value Ref Range POCT Glucose 91 74 - 99 mg/dL POCT GLUCOSE Result Value Ref Range POCT Glucose 129 (H) 74 - 99 mg/dL Renal Function Panel Result Value Ref Range Glucose 96 74 - 99 mg/dL Sodium 144 136 - 145 mmol/L Potassium 4.9 3.5 - 5.3 mmol/L Chloride 106 98 - 107 mmol/L Bicarbonate 21 21 - 32 mmol/L Anion Gap 22 (H) 10 - 20 mmol/L Urea Nitrogen 14 6 - 23 mg/dL Creatinine 0.86 0.50 - 1.30 mg/dL eGFR >90 >60 mL/min/1.73m*2 Calcium 8.9 8.6 - 10.6 mg/dL Phosphorus 4.5 2.5 - 4.9 mg/dL Albumin 3.6 3.4 - 5.0 g/dL CBC and Auto Differential Result Value Ref Range WBC 7.8 4.4 - 11.3 x10*3/uL nRBC 0.0 0.0 - 0.0 /100 WBCs RBC 3.95 (L) 4.50 - 5.90 x10*6/uL Hemoglobin 12.2 (L) 13.5 - 17.5 g/dL Hematocrit 36.9 (L) 41.0 - 52.0 % MCV 93 80 - 100 fL MCH 30.9 26.0 - 34.0 pg MCHC 33.1 32.0 - 36.0 g/dL RDW 13.1 11.5 - 14.5 % Platelets 208 150 - 450 x10*3/uL MPV 11.7 (H) 7.5 - 11.5 fL Neutrophils % 62.1 40.0 - 80.0 % Immature Granulocytes %, Automated 0.3 0.0 - 0.9 % Lymphocytes % 17.7 13.0 - 44.0 % Monocytes % 14.0 2.0 - 10.0 % Eosinophils % 4.9 0.0 - 6.0 % Basophils % 1.0 0.0 - 2.0 % Neutrophils Absolute 4.85 1.20 - 7.70 x10*3/uL Immature Granulocytes Absolute, Automated 0.02 0.00 - 0.70 x10*3/uL Lymphocytes Absolute 1.38 1.20 - 4.80 x10*3/uL Monocytes Absolute 1.09 (H) 0.10 - 1.00 x10*3/uL Eosinophils Absolute 0.38 0.00 - 0.70 x10*3/uL Basophils Absolute 0.08 0.00 - 0.10 x10*3/uL Magnesium Result Value Ref Range Magnesium 2.20 1.60 - 2.40 mg/dL Heparin Assay Result Value Ref Range Heparin Unfractionated 0.3 See Comment Below for Therapeutic Ranges IU/mL POCT GLUCOSE Result Value Ref Range POCT Glucose 121 (H) 74 - 99 mg/dL Assessment/Plan Principal Problem: Coronary arteriography abnormal Active Problems: STEMI (ST elevation myocardial infarction) ([facility]/HCC) Acute systolic heart failure ([facility]/HCC) Angina pectoris ([facility]) Atherosclerotic heart disease of [place] coronary artery with unspecified angina pectoris ([facility]) Mr. Latham 57yo M with PMHx of HTN, DLD, GERD, active smoker, and chronic pain (rotator cuff, spinal stenosis, lumbar radiculopathy). He presented to [facility] on 05/03 for worsening chest pain. He was found to have a lateral STEMI (peak Trop 73,550). He was given ASA, heparin, and Brilinta. Cath showed mid-LAD 99% occlusion (w/ robust RCA collaterals), and severe disease of the ramus and diagonal branch, which received balloon angioplasty. An IABP was placed for afterload reduction. Case complicated by ischemic cardiomyopathy, severe reduced ejection fraction 30%, and RWMA of the LADterritory and lateral wall. Patient was transferred to [facility] for CABG evaluation of of the LAD. For surgery today Cardiovascular: #Lateral STEMI #ICM/HFrEF (TTE 30-35%, 05/04/23) #HTN #DLD - IABP: R fem, neurovascular checks per protocol - Cardiac Cath (05/03): 100% mid-LAD, diagonal branch DIETITIAN HELPER, S/p Poba diag/ramus Plan - Continue heparin gtt for IABP - Continue ASA, atorvastatin 40 mg - Coreg 12.5 mg BID, baljinder 12.5 mg (05/06) - Hydralazine 10 mg TID, nitroglycerin drip, ranolazine - Holding P2y12, SGLT-2, GERARDO/ARB/ARNI prior to surgery - Cardiac surgery c/s for CABG evaluation (Dr. Trevino on board) - Hgba1c (5.9%) and lipid panel (LDL 74) GI: #GERD - Omeprazole 40 mg daily MSK/Rheum: # Chronic pain (rotator cuff, spinal stenosis, lumbar radiculopathy) - Holding home perkocet - Cont. home duloxetine - Tylenol and oxy for pain mgmt. F: Replete PRN E: Replete PRN N: NPO DVT Ppx: Heparin gtt GI Ppx: Omeprazole Access/Lines: PIV Abx: None O2: None Pain regimen: Tylenol /Oxy GI Laxative: None Code Status: Full Code (Confirmed on admission) Contact: Joel Latham (Son): Maty Chambers MD Associated attestation - Charlie Toledo MD - 05/07/2023 12:48 PM EDT Brief Attending Summary: 05/07/2023 AM rounds I have reviewed and evaluated the most recent data and results, personally examined the patient, and formulated the plan of care as presented above. This patient was critically ill and required continued critical care treatment. Teaching and any separately billable procedures are not included in the time calculation. Billing Provider Critical Care Time: 30 minutes Plan for OR today for CABG surgery with Dr. Trevino. Patient is currently optimized for surgery on current medical therapy. Bedside spirometry with good result (FEV1 > 80% predicted). 2nd case to OR today. * Ottoniel Trevino MD PhD - 05/06/2023 9:54 AM EDT I have seen and examined the patient, reviewed his chart and imaging. Briefly, this patient presented to an OSH last Saturday with NSTEMI. Patient was found to have a DIETITIAN HELPER of the LAD with good right to left filling as well as filling of the OM and DB. LV function is severely reduced but septal moving is preserved. Patient was placed on heparin and Nitroglycerin and IABP was placed in. At this time patient was mostly pain free though did purdy ve a couple of episodes of CP. I have discussed the plan with Dr. Braun- in this young patient who continues to have angina while on IABP and nitroglycerin and heparin drips, it would be appropriate to proceed with CABG without formal viability assessment. I spoke to the patient about this plan, he wants to proceed. * Genny Root, PT - 05/06/2023 9:15 AM EDT Physical Therapy Therapy Communication Note Patient Name: Morgan Latham Today's Date: 05/06/2023 Discipline: Physical Therapy Missed Visit Reason: Missed Visit Reason: Patient placed on medical hold (femoral IABP with plan for CABG tomorrow (05/07)) Missed Time: Attempt 9:15 Comment: * Maty Chambers MD - 05/06/2023 8:09 AM EDT Morgan Latham is a 57 y.o. male on day 3 of admission presenting with Coronary arteriography abnormal. Subjective Had chest pain this AM, 10/12, central pressure like at around 5 AM for which nitroglycerin gtt was restarted and he is currently chest pain free. No other complaints. Objective Vitals: 05/06/23 0700 BP: 152/69 Pulse: 74 Resp: 10 Temp: SpO2: 94% Physical Exam BP 152/69 Pulse 74 Temp 36.8 C (98.2 F) (Temporal) Resp 10 Ht 1.727 m (5' 7.99 ) Wt 87.2 kg (192 lb 3.9 oz) SpO2 94% BMI 29.24 kg/m General Appearance: Alert, cooperative, no distress, appears stated age Head: Normocephalic, without obvious abnormality, atraumatic Neck: Supple, symmetrical Lungs: Clear to auscultation bilaterally, respirations unlabored Chest Wall: No tenderness or deformity Heart: Regular rate and rhythm, S1, S2 normal, no murmur, rub or gallop Abdomen: Soft, non-tender, bowel sounds active all four quadrants, no masses, no organomegaly Extremities: Extremities normal, atraumatic, no cyanosis or edema Last Recorded Vitals Blood pressure 152/69, pulse 74, temperature 36.8 C (98.2 F), temperature source Temporal, resp. rate 10, height 1.727 m (5' 7.99 ), weight 87.2 kg (192 lb 3.9 oz), SpO2 94 %. Intake/Output last 3 Shifts: I/O last 3 completed shifts: In: 731.6 (8.4 mL/kg) [P.O.:480; I.V.:251.6 (2.9 mL/kg)] Out: 2600 (29.8 mL/kg) [Urine:2600 (0.8 mL/kg/hr)] Weight: 87.2 kg Relevant Results Scheduled medications acetaminophen, 975 mg, oral, q8h aspirin, 81 mg, oral, Daily atorvastatin, 40 mg, oral, Nightly carvedilol, 6.25 mg, oral, BID chlorhexidine, 15 mL, Mouth/Throat, BID DULoxetine, 20 mg, oral, BID influenza, 0.5 mL, intramuscular, During hospitalization hydrALAZINE, 10 mg, oral, TID insulin lispro, 0-10 Units, subcutaneous, TID AC isosorbide dinitrate, 20 mg, oral, TID mupirocin, 0.5 Application, Topical, BID pantoprazole, 40 mg, oral, Daily perflutren protein A microsphere, 0.5 mL, intravenous, Once in imaging polyethylene glycol, 17 g, oral, Daily potassium chloride CR, 20 mEq, oral, Daily sulfur hexafluoride microsphr, 2 mL, intravenous, Once in imaging Continuous medications heparin, 0-4,000 Units/hr, Last Rate: 1,400 Units/hr (05/05/23 2228) nitroglycerin, 5-200 mcg/min, Last Rate: 10 mcg/min (05/06/23 0500) PRN medications PRN medications: dextrose, glucagon, oxyCODONE Results for orders placed or performed during the hospital encounter of 05/03/23 (from the past 24 hour(s)) POCT GLUCOSE Result Value Ref Range POCT Glucose 114 (H) 74 - 99 mg/dL POCT GLUCOSE Result Value Ref Range POCT Glucose 130 (H) 74 - 99 mg/dL Sars-CoV-2 PCR, Screen Asymptomatic Result Value Ref Range Coronavirus 2019, PCR Not Detected Not Detected POCT GLUCOSE Result Value Ref Range POCT Glucose 119 (H) 74 - 99 mg/dL Urinalysis with Reflex Microscopic and Culture Result Value Ref Range Color, Urine Yellow Straw, Yellow Appearance, Urine Hazy (N) Clear Specific [place], Urine 1.014 1.005 - 1.035 pH, Urine 7.0 5.0, 5.5, 6.0, 6.5, 7.0, 7.5, 8.0 Protein, Urine 30 (1+) (N) NEGATIVE mg/dL Glucose, Urine 50 (1+) (A) NEGATIVE mg/dL Blood, Urine SMALL (1+) (A) NEGATIVE Ketones, Urine NEGATIVE NEGATIVE mg/dL Bilirubin, Urine NEGATIVE NEGATIVE Urobilinogen, Urine <2.0 <2.0 mg/dL Nitrite, Urine NEGATIVE NEGATIVE Leukocyte Esterase, Urine NEGATIVE NEGATIVE Urinalysis Microscopic Result Value Ref Range WBC, Urine NONE 1-5, NONE /HPF RBC, Urine 3-5 NONE, 1-2, 3-5 /HPF Mucus, Urine 1+ Reference range not established. /LPF Troponin I, High Sensitivity Result Value Ref Range Troponin I, High Sensitivity 17,382 (HH) 0 - 53 ng/L TSH with reflex to Free T4 if abnormal Result Value Ref Range Thyroid Stimulating Hormone 2.93 0.44 - 3.98 mIU/L CBC and Auto Differential Result Value Ref Range WBC 8.2 4.4 - 11.3 x10*3/uL nRBC 0.0 0.0 - 0.0 /100 WBCs RBC 3.80 (L) 4.50 - 5.90 x10*6/uL Hemoglobin 11.8 (L) 13.5 - 17.5 g/dL Hematocrit 35.0 (L) 41.0 - 52.0 % MCV 92 80 - 100 fL MCH 31.1 26.0 - 34.0 pg MCHC 33.7 32.0 - 36.0 g/dL RDW 13.0 11.5 - 14.5 % Platelets 199 150 - 450 x10*3/uL MPV 10.7 7.5 - 11.5 fL Neutrophils % 59.8 40.0 - 80.0 % Immature Granulocytes %, Automated 0.4 0.0 - 0.9 % Lymphocytes % 20.4 13.0 - 44.0 % Monocytes % 14.7 2.0 - 10.0 % Eosinophils % 3.7 0.0 - 6.0 % Basophils % 1.0 0.0 - 2.0 % Neutrophils Absolute 4.91 1.20 - 7.70 x10*3/uL Immature Granulocytes Absolute, Automated 0.03 0.00 - 0.70 x10*3/uL Lymphocytes Absolute 1.67 1.20 - 4.80 x10*3/uL Monocytes Absolute 1.20 (H) 0.10 - 1.00 x10*3/uL Eosinophils Absolute 0.30 0.00 - 0.70 x10*3/uL Basophils Absolute 0.08 0.00 - 0.10 x10*3/uL Comprehensive metabolic panel Result Value Ref Range Glucose 108 (H) 74 - 99 mg/dL Sodium 145 136 - 145 mmol/L Potassium 3.9 3.5 - 5.3 mmol/L Chloride 106 98 - 107 mmol/L Bicarbonate 23 21 - 32 mmol/L Anion Gap 20 10 - 20 mmol/L Urea Nitrogen 9 6 - 23 mg/dL Creatinine 0.87 0.50 - 1.30 mg/dL eGFR >90 >60 mL/min/1.73m*2 Calcium 9.0 8.6 - 10.6 mg/dL Albumin 3.6 3.4 - 5.0 g/dL Alkaline Phosphatase 52 33 - 120 U/L Total Protein 5.8 (L) 6.4 - 8.2 g/dL AST 30 9 - 39 U/L Bilirubin, Total 0.5 0.0 - 1.2 mg/dL ALT 20 10 - 52 U/L Magnesium Result Value Ref Range Magnesium 2.12 1.60 - 2.40 mg/dL Phosphorus Result Value Ref Range Phosphorus 3.6 2.5 - 4.9 mg/dL Heparin Assay Result Value Ref Range Heparin Unfractionated 0.5 See Comment Below for Therapeutic Ranges IU/mL Assessment/Plan Principal Problem: Coronary arteriography abnormal Active Problems: Atherosclerotic heart disease of [place] coronary artery with unspecified angina pectoris (CMS/HCC) ASSESSMENT/PLAN: Mr. Latham 57yo M with PMHx of HTN, DLD, GERD, active smoker, and chronic pain (rotator cuff, spinal stenosis, lumbar radiculopathy). He presented to [facility] on 05/03 for worsening chest pain. He was found to have a lateral STEMI (peak Trop 73,550). He was given ASA, heparin, and Brilinta. Cath showed mid-LAD 99% occlusion (w/ robust RCA collaterals), and severe disease of the ramus and diagonal branch, which received balloon angioplasty. An IABP was placed for afterload reduction. Case complicated by ischemic cardiomyopathy, severe reduced ejection fraction 30%, and RWMA of the LADterritory and lateral wall. Patient was transferred to [facility] for CABG evaluation of of the LAD. Updates 05/06: - Started ranolazine 500 BID - Dced isordil and continue with nitrog gtt - Follow up with CTS for CABG plans as patient is still having chest pain off nitrog gtt - Added baljinder 12.5 - NPO @midnight for CABG 05/07 Cardiovascular: #Lateral STEMI #ICM/HFrEF (TTE 30-35%, 05/04/23) #HTN #DLD - IABP: R fem, neurovascular checks per protocol - Cardiac Cath (05/03): 100% mid-LAD, diagonal branch DIETITIAN HELPER, S/p Poba diag/ramus Plan - Continue heparin gtt for IABP - Continue ASA, atorvastatin 40 mg - Coreg 12.5 mg BID, baljinder 12.5 mg (05/06) - Hydralazine 10 mg TID - Holding P2y12, SGLT-2, GERARDO/ARB/ARNI prior to surgery - Cardiac surgery c/s for CABG evaluation (Dr. Trevino on board) - Hgba1c (5.9%) and lipid panel (LDL 74) GI: #GERD - Omeprazole 40 mg daily MSK/Rheum: # Chronic pain (rotator cuff, spinal stenosis, lumbar radiculopathy) - Holding home perkocet - Cont. home duloxetine - Will add Tylenol and oxy for pain mgmt. F: Replete PRN E: Replete PRN N: Regular Diet DVT Ppx: Heparin gtt GI Ppx: Omeprazole Access/Lines: PIV Abx: None O2: None Pain regimen: Tylenol /Oxy GI Laxative: None Code Status: Full Code (Confirmed on admission) Contact: Joel Latham (Son): Maty Chambers MD Associated attestation - Charlie Toledo MD - 05/06/2023 2:18 PM EDT Brief Attending Summary: 05/06/2023 AM rounds I have reviewed and evaluated the most recent data and results, personally examined the patient, and formulated the plan of care as presented above. This patient was critically ill and required continued critical care treatment. Teaching and any separately billable procedures are not included in the time calculation. Billing Provider Critical Care Time: 30 minutes Assessment: - acute myocardial infarction (STEMI presentation to OSH) - acute systolic heart failure due to ischemic cardiomyopathy - angina pectoris - coronary arteriosclerosis Plan: Continue IAPB support to minimize angina and maximize coronary artery diastolic perfusion. Add ranolazine. Continue heparin and NTG drips. Plan for OR with Dr. Trevino, will await final surgery timing. Complete preop testing today. * Juan Zamora MD - 05/05/2023 2:32 PM EDT Images from the original note were not included. Morgan Latham is a 57 y.o. male on day 2 of admission presenting with Coronary arteriography abnormal. Subjective Patient weaned off nitroglycerin this AM (headache, no CP), however developed recurrent CP, and placed back on drip. Resolution of CP since, weaned off nitroglycerin gtt with oral anti-anginal / afterload reduction. On 2L however, 98-100% on weaning trial. If he continues to have CP despite vasodilators, Dr. Mina likely will proceed with surgery without need for cMR viability study. If this isthe case, will keep IABP. If patient has no CP recurrence, possible cMR viability study and removalof IABP. Began GDMT today with Coreg 6.25 mg BID, started isordil 20 mg TID, hydralazine 10 mg TID for after. Plan for MRA tomorrow with spironolactone 12.[address] chest ordered per cardiac surgery for aortic intra-operative clamping. Objective 05/05/2023 6:00 AM 05/05/2023 7:00 AM 05/05/2023 8:00 AM 05/05/2023 9:00 AM 05/05/2023 10:00 AM 05/05/2023 11:00 AM 05/05/2023 12:00 PM Vitals Systolic 91 144 153 157 132 141 138 Diastolic 57 76 80 80 69 81 115 Heart Rate 69 69 71 75 75 77 77 Temp 36.2 C (97.2 F) Resp 12 21 26 18 20 15 19 Physical Exam. BP (!) 138/115 Pulse 77 Temp 36.2 C (97.2 F) (Temporal) Resp 19 Ht 1.727 m (5' 7.99 ) Wt 87.2 kg (192 lb 3.9 oz) SpO2 98% BMI 29.24 kg/m General Appearance: Alert, cooperative, no distress, appears stated age Neck: Supple, symmetrical, trachea midline, Lungs: Clear to auscultation bilaterally, respirations unlabored Chest Wall: No tenderness or deformity Heart: Regular rate and rhythm, S1, S2 normal, no murmur, rub or gallop Abdomen: Soft, non-tender, bowel sounds active all four quadrants, no masses, no organomegaly Extremities: Extremities normal, atraumatic, no cyanosis or edema Pulses: 2+ and symmetric Skin: Skin color, texture, turgor normal, no rashes or lesions Last Recorded Vitals Blood pressure (!) 138/115, pulse 77, temperature 36.2 C (97.2 F), temperature source Temporal, resp. rate 19, height 1.727 m (5' 7.99 ), weight 87.2 kg (192 lb 3.9 oz), SpO2 98 %. Intake/Output last 3 Shifts: I/O last 3 completed shifts: In: 1414 (16.2 mL/kg) [P.O.:1260; I.V.:154 (1.8 mL/kg)] Out: 3830 (43.9 mL/kg) [Urine:3830 (1.2 mL/kg/hr)] Weight: 87.2 kg Relevant Results Scheduled medications acetaminophen, 975 mg, oral, q8h aspirin, 81 mg, oral, Daily atorvastatin, 40 mg, oral, Nightly carvedilol, 6.25 mg, oral, BID DULoxetine, 20 mg, oral, BID influenza, 0.5 mL, intramuscular, During hospitalization hydrALAZINE, 10 mg, oral, TID insulin lispro, 0-10 Units, subcutaneous, TID AC isosorbide dinitrate, 20 mg, oral, TID pantoprazole, 40 mg, oral, Daily perflutren protein A microsphere, 0.5 mL, intravenous, Once in imaging polyethylene glycol, 17 g, oral, Daily sulfur hexafluoride microsphr, 2 mL, intravenous, Once in imaging Continuous medications heparin, 1,400 Units/hr nitroglycerin, 5-200 mcg/min, Last Rate: 20 mcg/min (05/05/23 1200) PRN medications PRN medications: dextrose, glucagon, oxyCODONE Results for orders placed or performed during the hospital encounter of 05/03/23 (from the past 24 hour(s)) POCT GLUCOSE Result Value Ref Range POCT Glucose 125 (H) 74 - 99 mg/dL Hemoglobin A1c Result Value Ref Range Hemoglobin A1C 5.9 (H) see below % Estimated Average Glucose 123 Not Established mg/dL Lipid panel Result Value Ref Range Cholesterol 145 0 - 199 mg/dL HDL-Cholesterol 54.0 mg/dL Cholesterol/HDL Ratio 2.7 LDL Calculated 73 (L) 140 - 190 mg/dL VLDL 18 0 - 40 mg/dL Triglycerides 90 0 - 149 mg/dL Non HDL Cholesterol 91 0 - 149 mg/dL Heparin Assay Result Value Ref Range Heparin Unfractionated 0.4 See Comment Below for Therapeutic Ranges IU/mL Comprehensive Metabolic Panel Result Value Ref Range Glucose 115 (H) 74 - 99 mg/dL Sodium 142 136 - 145 mmol/L Potassium 3.9 3.5 - 5.3 mmol/L Chloride 108 (H) 98 - 107 mmol/L Bicarbonate 26 21 - 32 mmol/L Anion Gap 12 10 - 20 mmol/L Urea Nitrogen 13 6 - 23 mg/dL Creatinine 1.02 0.50 - 1.30 mg/dL eGFR 85 >60 mL/min/1.73m*2 Calcium 9.2 8.6 - 10.6 mg/dL Albumin 3.8 3.4 - 5.0 g/dL Alkaline Phosphatase 65 33 - 120 U/L Total Protein 6.0 (L) 6.4 - 8.2 g/dL AST 87 (H) 9 - 39 U/L Bilirubin, Total 0.4 0.0 - 1.2 mg/dL ALT 31 10 - 52 U/L Lactate Dehydrogenase Result Value Ref Range LDH 562 (H) 84 - 246 U/L Phosphorus Result Value Ref Range Phosphorus 3.6 2.5 - 4.9 mg/dL CBC and Auto Differential Result Value Ref Range WBC 7.1 4.4 - 11.3 x10*3/uL nRBC 0.0 0.0 - 0.0 /100 WBCs RBC 4.07 (L) 4.50 - 5.90 x10*6/uL Hemoglobin 12.7 (L) 13.5 - 17.5 g/dL Hematocrit 36.5 (L) 41.0 - 52.0 % MCV 90 80 - 100 fL MCH 31.2 26.0 - 34.0 pg MCHC 34.8 32.0 - 36.0 g/dL RDW 13.1 11.5 - 14.5 % Platelets 231 150 - 450 x10*3/uL MPV 11.0 7.5 - 11.5 fL Neutrophils % 69.8 40.0 - 80.0 % Immature Granulocytes %, Automated 0.3 0.0 - 0.9 % Lymphocytes % 16.4 13.0 - 44.0 % Monocytes % 11.0 2.0 - 10.0 % Eosinophils % 1.8 0.0 - 6.0 % Basophils % 0.7 0.0 - 2.0 % Neutrophils Absolute 4.93 1.20 - 7.70 x10*3/uL Immature Granulocytes Absolute, Automated 0.02 0.00 - 0.70 x10*3/uL Lymphocytes Absolute 1.16 (L) 1.20 - 4.80 x10*3/uL Monocytes Absolute 0.78 0.10 - 1.00 x10*3/uL Eosinophils Absolute 0.13 0.00 - 0.70 x10*3/uL Basophils Absolute 0.05 0.00 - 0.10 x10*3/uL Troponin I, High Sensitivity Result Value Ref Range Troponin I, High Sensitivity 22,510 (HH) 0 - 53 ng/L Lactate Result Value Ref Range Lactate 1.1 0.4 - 2.0 mmol/L CBC and Auto Differential Result Value Ref Range WBC 7.9 4.4 - 11.3 x10*3/uL nRBC 0.0 0.0 - 0.0 /100 WBCs RBC 4.03 (L) 4.50 - 5.90 x10*6/uL Hemoglobin 12.4 (L) 13.5 - 17.5 g/dL Hematocrit 37.0 (L) 41.0 - 52.0 % MCV 92 80 - 100 fL MCH 30.8 26.0 - 34.0 pg MCHC 33.5 32.0 - 36.0 g/dL RDW 13.0 11.5 - 14.5 % Platelets 228 150 - 450 x10*3/uL MPV 11.2 7.5 - 11.5 fL Neutrophils % 59.2 40.0 - 80.0 % Immature Granulocytes %, Automated 0.3 0.0 - 0.9 % Lymphocytes % 23.8 13.0 - 44.0 % Monocytes % 13.4 2.0 - 10.0 % Eosinophils % 2.7 0.0 - 6.0 % Basophils % 0.6 0.0 - 2.0 % Neutrophils Absolute 4.66 1.20 - 7.70 x10*3/uL Immature Granulocytes Absolute, Automated 0.02 0.00 - 0.70 x10*3/uL Lymphocytes Absolute 1.87 1.20 - 4.80 x10*3/uL Monocytes Absolute 1.05 (H) 0.10 - 1.00 x10*3/uL Eosinophils Absolute 0.21 0.00 - 0.70 x10*3/uL Basophils Absolute 0.05 0.00 - 0.10 x10*3/uL Renal Function Panel Result Value Ref Range Glucose 96 74 - 99 mg/dL Sodium 143 136 - 145 mmol/L Potassium 3.9 3.5 - 5.3 mmol/L Chloride 108 (H) 98 - 107 mmol/L Bicarbonate 25 21 - 32 mmol/L Anion Gap 14 10 - 20 mmol/L Urea Nitrogen 11 6 - 23 mg/dL Creatinine 0.95 0.50 - 1.30 mg/dL eGFR >90 >60 mL/min/1.73m*2 Calcium 9.5 8.6 - 10.6 mg/dL Phosphorus 3.7 2.5 - 4.9 mg/dL Albumin 3.8 3.4 - 5.0 g/dL Magnesium Result Value Ref Range Magnesium 2.14 1.60 - 2.40 mg/dL Heparin Assay Result Value Ref Range Heparin Unfractionated 0.5 See Comment Below for Therapeutic Ranges IU/mL POCT GLUCOSE Result Value Ref Range POCT Glucose 114 (H) 74 - 99 mg/dL POCT GLUCOSE Result Value Ref Range POCT Glucose 130 (H) 74 - 99 mg/dL Assessment/Plan Principal Problem: Coronary arteriography abnormal Active Problems: Atherosclerotic heart disease of [place] coronary artery with unspecified angina pectoris ([facility]/HCC) ASSESSMENT/PLAN: Mr. Latham 57yo M with PMHx of HTN, DLD, GERD, active smoker, and chronic pain (rotator cuff, spinal stenosis, lumbar radiculopathy). He presented to [facility] on 05/03 for worsening chest pain. He was found to have a lateral STEMI (peak Trop 73,550). He was given ASA, heparin, and Brilinta. Cath showed mid-LAD 99% occlusion (w/ robust RCA collaterals), and severe disease of the ramus and diagonal branch, which received balloon angioplasty. An IABP was placed for afterload reduction. Case complicated by ischemic cardiomyopathy, severe reduced ejection fraction 30%, and RWMA of the LADterritory and lateral wall. Patient was transferred to [facility] for CABG evaluation of of the LAD. Updates 05/05/23: - Patient weaned off nitroglycerin this AM (headache, no CP) - However developed recurrent CP, and placed back on drip. - Resolution of CP since, weaned off nitroglycerin gtt with PO vasodilators - On 2L however, 98-100% on weaning trial. - Began GDMT today with Coreg 6.25 mg BID, isordil 20 mg TID, hydralazine 10 mg TID. - Plan for MRA tomorrow with spironolactone 12.5 mg. - CT chest ordered per cardiac surgery for aortic intra-operative clamping. - If he continues to have CP despite vasodilators, Dr. Mina likely will proceed with surgery without need for cMR viability study. If this is the case, will keep IABP. If patient has no CP recurrence, possible cMR viability study and removal of IABP. Cardiovascular: #Lateral STEMI #ICM/HFrEF (TTE 30-35%, 05/04/23) #HTN #DLD - IABP: R fem, neurovascular checks per protocol - Cardiac Cath (05/03): 100% mid-LAD, diagonal branch DIETITIAN HELPER, S/p Poba diag/ramus Plan - Continue heparin gtt for IABP - Continue ASA, atorvastatin 40 mg - Coreg 12.5 mg BID, baljinder 12.5 mg (05/06) - Isordil 20 mg TID, hydralazine 10 mg TID - Holding P2y12, SGLT-2, GERARDO/ARB/ARNI prior to surgery - Cardiac surgery c/s for CABG evaluation (Dr. Carson on board) - Hgba1c (5.9%) and lipid panel (LDL 74) in the AM GI: #GERD - Omeprazole 40 mg daily MSK/Rheum: # Chronic pain (rotator cuff, spinal stenosis, lumbar radiculopathy) - Holding home perkocet - Cont. home duloxetine - Will add Tylenol and oxy for pain mgmt. F: Replete PRN E: Replete PRN N: Regular Diet DVT Ppx: Heparin gtt GI Ppx: Omeprazole Access/Lines: PIV Abx: None O2: None Pain regimen: Tylenol /Oxy GI Laxative: None Code Status: Full Code (Confirmed on admission) Contact: Joel Latham (Son): Juan Zamora MD * Susan Braun MD - 05/05/2023 2:07 PM EDT Images from the original note were not included. Morgan Latham is a 57 y.o. male on day 2 of admission presenting with Coronary arteriography abnormal. Subjective Weaned off nipride this morning, however still exhibiting chest pain similar to OSH presentation. On 2L but saturating well on weaning trial. CXR without congestion. Euvolemic on exam. Objective 05/05/2023 6:00 AM 05/05/2023 7:00 AM 05/05/2023 8:00 AM 05/05/2023 9:00 AM 05/05/2023 10:00 AM 05/05/2023 11:00 AM 05/05/2023 12:00 PM Vitals Systolic 91 144 153 157 132 141 138 Diastolic 57 76 80 80 69 81 115 Heart Rate 69 69 71 75 75 77 77 Temp 36.2 C (97.2 F) Resp 12 21 26 18 20 15 19 Physical Exam. BP (!) 138/115 Pulse 77 Temp 36.2 C (97.2 F) (Temporal) Resp 19 Ht 1.727 m (5' 7.99 ) Wt 87.2 kg (192 lb 3.9 oz) SpO2 98% BMI 29.24 kg/m General Appearance: Alert, cooperative, no distress, appears stated age Neck: Supple, symmetrical, trachea midline, Lungs: Clear to auscultation bilaterally, respirations unlabored Chest Wall: No tenderness or deformity Heart: Regular rate and rhythm, S1, S2 normal, no murmur, rub or gallop Abdomen: Soft, non-tender, bowel sounds active all four quadrants, no masses, no organomegaly Extremities: Extremities normal, atraumatic, no cyanosis or edema Pulses: 2+ and symmetric Skin: Skin color, texture, turgor normal, no rashes or lesions Last Recorded Vitals Blood pressure (!) 138/115, pulse 77, temperature 36.2 C (97.2 F), temperature source Temporal, resp. rate 19, height 1.727 m (5' 7.99 ), weight 87.2 kg (192 lb 3.9 oz), SpO2 98 %. Intake/Output last 3 Shifts: I/O last 3 completed shifts: In: 1414 (16.2 mL/kg) [P.O.:1260; I.V.:154 (1.8 mL/kg)] Out: 3830 (43.9 mL/kg) [Urine:3830 (1.2 mL/kg/hr)] Weight: 87.2 kg Relevant Results Scheduled medications acetaminophen, 975 mg, oral, q8h aspirin, 81 mg, oral, Daily atorvastatin, 40 mg, oral, Nightly carvedilol, 6.25 mg, oral, BID DULoxetine, 20 mg, oral, BID influenza, 0.5 mL, intramuscular, During hospitalization hydrALAZINE, 10 mg, oral, TID insulin lispro, 0-10 Units, subcutaneous, TID AC isosorbide dinitrate, 20 mg, oral, TID pantoprazole, 40 mg, oral, Daily perflutren protein A microsphere, 0.5 mL, intravenous, Once in imaging polyethylene glycol, 17 g, oral, Daily sulfur hexafluoride microsphr, 2 mL, intravenous, Once in imaging Continuous medications heparin, 1,400 Units/hr nitroglycerin, 5-200 mcg/min, Last Rate: 20 mcg/min (05/05/23 1200) PRN medications PRN medications: dextrose, glucagon, oxyCODONE Results for orders placed or performed during the hospital encounter of 05/03/23 (from the past 24 hour(s)) CBC and Auto Differential Result Value Ref Range WBC CANCELED nRBC CANCELED RBC CANCELED Hemoglobin CANCELED Hematocrit CANCELED MCV CANCELED MCHC CANCELED Platelets CANCELED RDW CANCELED Neutrophils % CANCELED Immature Granulocytes %, Automated CANCELED Lymphocytes % CANCELED Monocytes % CANCELED Eosinophils % CANCELED Basophils % CANCELED Neutrophils Absolute CANCELED Lymphocytes Absolute CANCELED Monocytes Absolute CANCELED Eosinophils Absolute CANCELED Basophils Absolute CANCELED MANUAL DIFFERENTIAL Y/N CANCELED Comprehensive Metabolic Panel Result Value Ref Range Glucose CANCELED Sodium CANCELED Potassium CANCELED Chloride CANCELED Bicarbonate CANCELED Anion Gap CANCELED Urea Nitrogen CANCELED Creatinine CANCELED GFR Female CANCELED GFR MALE CANCELED Calcium CANCELED Albumin CANCELED Alkaline Phosphatase CANCELED Total Protein CANCELED AST CANCELED Total Bilirubin CANCELED ALT (SGPT) CANCELED Lactate Dehydrogenase Result Value Ref Range LD CANCELED Magnesium Result Value Ref Range Magnesium CANCELED Protime-INR Result Value Ref Range Protime CANCELED INR CANCELED POCT GLUCOSE Result Value Ref Range POCT Glucose 125 (H) 74 - 99 mg/dL Hemoglobin A1c Result Value Ref Range Hemoglobin A1C 5.9 (H) see below % Estimated Average Glucose 123 Not Established mg/dL Lipid panel Result Value Ref Range Cholesterol 145 0 - 199 mg/dL HDL-Cholesterol 54.0 mg/dL Cholesterol/HDL Ratio 2.7 LDL Calculated 73 (L) 140 - 190 mg/dL VLDL 18 0 - 40 mg/dL Triglycerides 90 0 - 149 mg/dL Non HDL Cholesterol 91 0 - 149 mg/dL Heparin Assay Result Value Ref Range Heparin Unfractionated 0.4 See Comment Below for Therapeutic Ranges IU/mL Comprehensive Metabolic Panel Result Value Ref Range Glucose 115 (H) 74 - 99 mg/dL Sodium 142 136 - 145 mmol/L Potassium 3.9 3.5 - 5.3 mmol/L Chloride 108 (H) 98 - 107 mmol/L Bicarbonate 26 21 - 32 mmol/L Anion Gap 12 10 - 20 mmol/L Urea Nitrogen 13 6 - 23 mg/dL Creatinine 1.02 0.50 - 1.30 mg/dL eGFR 85 >60 mL/min/1.73m*2 Calcium 9.2 8.6 - 10.6 mg/dL Albumin 3.8 3.4 - 5.0 g/dL Alkaline Phosphatase 65 33 - 120 U/L Total Protein 6.0 (L) 6.4 - 8.2 g/dL AST 87 (H) 9 - 39 U/L Bilirubin, Total 0.4 0.0 - 1.2 mg/dL ALT 31 10 - 52 U/L Lactate Dehydrogenase Result Value Ref Range LDH 562 (H) 84 - 246 U/L Phosphorus Result Value Ref Range Phosphorus 3.6 2.5 - 4.9 mg/dL CBC and Auto Differential Result Value Ref Range WBC 7.1 4.4 - 11.3 x10*3/uL nRBC 0.0 0.0 - 0.0 /100 WBCs RBC 4.07 (L) 4.50 - 5.90 x10*6/uL Hemoglobin 12.7 (L) 13.5 - 17.5 g/dL Hematocrit 36.5 (L) 41.0 - 52.0 % MCV 90 80 - 100 fL MCH 31.2 26.0 - 34.0 pg MCHC 34.8 32.0 - 36.0 g/dL RDW 13.1 11.5 - 14.5 % Platelets 231 150 - 450 x10*3/uL MPV 11.0 7.5 - 11.5 fL Neutrophils % 69.8 40.0 - 80.0 % Immature Granulocytes %, Automated 0.3 0.0 - 0.9 % Lymphocytes % 16.4 13.0 - 44.0 % Monocytes % 11.0 2.0 - 10.0 % Eosinophils % 1.8 0.0 - 6.0 % Basophils % 0.7 0.0 - 2.0 % Neutrophils Absolute 4.93 1.20 - 7.70 x10*3/uL Immature Granulocytes Absolute, Automated 0.02 0.00 - 0.70 x10*3/uL Lymphocytes Absolute 1.16 (L) 1.20 - 4.80 x10*3/uL Monocytes Absolute 0.78 0.10 - 1.00 x10*3/uL Eosinophils Absolute 0.13 0.00 - 0.70 x10*3/uL Basophils Absolute 0.05 0.00 - 0.10 x10*3/uL Troponin I, High Sensitivity Result Value Ref Range Troponin I, High Sensitivity 22,510 (HH) 0 - 53 ng/L Lactate Result Value Ref Range Lactate 1.1 0.4 - 2.0 mmol/L CBC and Auto Differential Result Value Ref Range WBC 7.9 4.4 - 11.3 x10*3/uL nRBC 0.0 0.0 - 0.0 /100 WBCs RBC 4.03 (L) 4.50 - 5.90 x10*6/uL Hemoglobin 12.4 (L) 13.5 - 17.5 g/dL Hematocrit 37.0 (L) 41.0 - 52.0 % MCV 92 80 - 100 fL MCH 30.8 26.0 - 34.0 pg MCHC 33.5 32.0 - 36.0 g/dL RDW 13.0 11.5 - 14.5 % Platelets 228 150 - 450 x10*3/uL MPV 11.2 7.5 - 11.5 fL Neutrophils % 59.2 40.0 - 80.0 % Immature Granulocytes %, Automated 0.3 0.0 - 0.9 % Lymphocytes % 23.8 13.0 - 44.0 % Monocytes % 13.4 2.0 - 10.0 % Eosinophils % 2.7 0.0 - 6.0 % Basophils % 0.6 0.0 - 2.0 % Neutrophils Absolute 4.66 1.20 - 7.70 x10*3/uL Immature Granulocytes Absolute, Automated 0.02 0.00 - 0.70 x10*3/uL Lymphocytes Absolute 1.87 1.20 - 4.80 x10*3/uL Monocytes Absolute 1.05 (H) 0.10 - 1.00 x10*3/uL Eosinophils Absolute 0.21 0.00 - 0.70 x10*3/uL Basophils Absolute 0.05 0.00 - 0.10 x10*3/uL Renal Function Panel Result Value Ref Range Glucose 96 74 - 99 mg/dL Sodium 143 136 - 145 mmol/L Potassium 3.9 3.5 - 5.3 mmol/L Chloride 108 (H) 98 - 107 mmol/L Bicarbonate 25 21 - 32 mmol/L Anion Gap 14 10 - 20 mmol/L Urea Nitrogen 11 6 - 23 mg/dL Creatinine 0.95 0.50 - 1.30 mg/dL eGFR >90 >60 mL/min/1.73m*2 Calcium 9.5 8.6 - 10.6 mg/dL Phosphorus 3.7 2.5 - 4.9 mg/dL Albumin 3.8 3.4 - 5.0 g/dL Magnesium Result Value Ref Range Magnesium 2.14 1.60 - 2.40 mg/dL Heparin Assay Result Value Ref Range Heparin Unfractionated 0.5 See Comment Below for Therapeutic Ranges IU/mL POCT GLUCOSE Result Value Ref Range POCT Glucose 114 (H) 74 - 99 mg/dL POCT GLUCOSE Result Value Ref Range POCT Glucose 130 (H) 74 - 99 mg/dL Assessment/Plan Principal Problem: Coronary arteriography abnormal Active Problems: Atherosclerotic heart disease of little shell tribe coronary artery with unspecified angina pectoris (CMS/HCC) ASSESSMENT/PLAN: Mr. Latham 57yo M with PMHx of HTN, DLD, active smoker, GERD, and chronic pain (rotator cuff, spinal stenosis, lumbar radiculopathy). He presented to the [facility] ED due to worsening chest pain. He was found to have lateral STEMI ([place] . 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 A balloon pump was placed for afterload reduction and pt was transferred to [facility] for CABG eval on nitro and heparin gtt. Will consult cardiacsurgery and try to optimize pt for surgery. Neuro: - No active issues Cardiovascular: #STEMI #HTN #DLD - IABP: R fem, neurovascular checks per protocol - Cardiac Cath (05/03): 100% mid-LAD and diagonal branch DIETITIAN HELPER, Jesus of diag and ramus Plan - Continue heparin gtt, nitroglycerin gtt - Continue aspirin, metoprolol, statin - Cardiac surgery c/s for CABG evaluation (Dr. Carson on board) - Hgba1c and lipid panel in the AM Respiratory: - No active issues GI: #GERD - Omeprazole 40 mg daily Renal/: - No active issues Heme/Onc: - No active issues Endo: - No active issues ID: - No active issues MSK/Rheum: # Chronic pain (rotator cuff, spinal stenosis, lumbar radiculopathy) - Holding home perkocet - Cont. home duloxetine - Will add Tylenol and oxy for pain mgmt. Derm: - No active issues Psych: - No active issues F: Replete PRN E: Replete PRN N: Regular Diet DVT Ppx: Heparin gtt GI Ppx: Omeprazole Access/Lines: PIV Abx: None O2: None Pain regimen: Tylenol /Oxy GI Laxative: None Code Status: Full Code (Confirmed on admission) Contact: Joel Latham (Son): Juan Zamora MD * Maty Chambers MD - 05/04/2023 9:59 AM EDT Images from the original note were not included. Morgan Latham is a 57 y.o. male on day 1 of admission presenting with Coronary arteriography abnormal. Subjective Feel good this morning, chest pain resolved, currently having 4/10 tension like headache along withminimal shortness of breath. No other complaints. Objective 12/16/2020 3:03 PM 08/14/2022 3:12 PM 05/04/2023 8:00 AM 05/04/2023 9:00 AM Vitals Systolic 141 145 Diastolic 76 95 Heart Rate 77 85 Temp 37.1 C (98.8 F) Resp 19 20 Height (in) 1.702 m (5' 7 ) 1.727 m (5' 8 ) Weight (lb) 180 196 BMI 28.19 kg/m2 29.8 kg/m2 BSA (m2) 1.96 m2 2.07 m2 Physical Exam. BP (!) 145/95 Pulse 81 Temp 37.1 C (98.8 F) (Temporal) Resp 22 SpO2 96% General Appearance: Alert, cooperative, no distress, appears stated age Neck: Supple, symmetrical, trachea midline, Lungs: Clear to auscultation bilaterally, respirations unlabored Chest Wall: No tenderness or deformity Heart: Regular rate and rhythm, S1, S2 normal, no murmur, rub or gallop Abdomen: Soft, non-tender, bowel sounds active all four quadrants, no masses, no organomegaly Extremities: Extremities normal, atraumatic, no cyanosis or edema Pulses: 2+ and symmetric Skin: Skin color, texture, turgor normal, no rashes or lesions Last Recorded Vitals Blood pressure (!) 145/95, pulse 85, temperature 37.1 C (98.8 F), temperature source Temporal, resp. rate 20, SpO2 100 %. Intake/Output last 3 Shifts: No intake/output data recorded. Relevant Results Scheduled medications acetaminophen, 975 mg, oral, q8h atenolol, 50 mg, oral, Daily atorvastatin, 40 mg, oral, Nightly DULoxetine, 20 mg, oral, BID influenza, 0.5 mL, intramuscular, During hospitalization insulin lispro, 0-10 Units, subcutaneous, TID AC pantoprazole, 40 mg, oral, Daily perflutren lipid microspheres, 0.5 mL, intravenous, Once in imaging Continuous medications heparin, 0-4,000 Units/hr, Last Rate: 1,400 Units/hr (05/04/23 0900) nitroglycerin, 5-200 mcg/min, Last Rate: 10 mcg/min (05/04/23 0940) PRN medications PRN medications: dextrose, glucagon, heparin, oxyCODONE Results for orders placed or performed during the hospital encounter of 05/03/23 (from the past 24 hour(s)) CBC Result Value Ref Range WBC 9.3 4.4 - 11.3 x10E9/L nRBC 0.0 0.0 - 0.0 /100 WBC RBC 4.27 (L) 4.50 - 5.90 x10E12/L Hemoglobin 13.1 (L) 13.5 - 17.5 g/dL Hematocrit 39.6 (L) 41.0 - 52.0 % MCV 93 80 - 100 fL MCHC 33.1 32.0 - 36.0 g/dL Platelets 301 150 - 450 x10E9/L RDW 13.2 11.5 - 14.5 % Magnesium Result Value Ref Range Magnesium 2.05 1.60 - 2.40 mg/dL Renal Function Panel Result Value Ref Range Glucose 104 (H) 74 - 99 mg/dL Sodium 140 136 - 145 mmol/L Potassium 4.3 3.5 - 5.3 mmol/L Chloride 109 (H) 98 - 107 mmol/L Bicarbonate 23 21 - 32 mmol/L Anion Gap 12 10 - 20 mmol/L Urea Nitrogen 14 6 - 23 mg/dL Creatinine 0.96 0.50 - 1.30 mg/dL GFR MALE >90 >90 mL/min/1.73m2 Calcium 9.3 8.6 - 10.6 mg/dL Phosphorus 3.5 2.5 - 4.9 mg/dL Albumin 3.9 3.4 - 5.0 g/dL Heparin Assay Result Value Ref Range HEPARIN UNFRACTIONATED 0.2 IU/mL Lactate Dehydrogenase Result Value Ref Range LD 603 (H) 84 - 246 U/L Troponin I, High Sensitivity Result Value Ref Range Troponin I 73,550 (H) 0 - 53 ng/L Type And Screen Result Value Ref Range ABO GROUP (TYPE) IN BLOOD O Rh POS ANTIBODY SCREEN NEG Urinalysis with Reflex Microscopic Result Value Ref Range Color, Urine YELLOW STRAW,YELLOW Appearance, Urine HAZY CLEAR Specific [place], Urine 1.058 (H) 1.005 - 1.035 pH, Urine 5.0 5.0 - 8.0 Protein, Urine 30 (1+) (A) NEGATIVE mg/dL Glucose, Urine NEGATIVE NEGATIVE mg/dL Blood, Urine LARGE (3+) (A) NEGATIVE Ketones, Urine NEGATIVE NEGATIVE mg/dL Bilirubin, Urine NEGATIVE NEGATIVE Urobilinogen, Urine <2.0 0.0 - 1.9 mg/dL Nitrite, Urine NEGATIVE NEGATIVE Leukocyte Esterase, Urine NEGATIVE NEGATIVE Urinalysis Microscopic Only Result Value Ref Range WBC, Urine 60 (A) 0 - 5 /HPF RBC, Urine >182 (A) 0 - 5 /HPF Heparin Assay Result Value Ref Range Heparin Unfractionated 0.2 See Comment Below for Therapeutic Ranges IU/mL POCT GLUCOSE Result Value Ref Range POCT Glucose 199 (H) 74 - 99 mg/dL Assessment/Plan Principal Problem: Coronary arteriography abnormal ASSESSMENT/PLAN: Mr. Latham 57yo M with PMHx of HTN, DLD, GERD, tobacco use disorder and chronic pain (rotator cuff,spinal stenosis, lumbar radiculopathy) who presented to the ED with cc of chest pain c/f STEMI. 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 A balloon pump was placed for afterload reduction and pt was transferred to [facility] for CABGeval on nitro and heparin gtt. Will consult cardiac surgery and try to optimize pt for surgery. Neuro: - No active issues Cardiovascular: #STEMI #HTN #DLD - IABP: R fem, neurovascular checks per protocol - Cardiac Cath (05/03): 100% mid-LAD and diagonal branch DIETITIAN HELPER, Jesus of diag and ramus Plan - Continue heparin gtt, nitroglycerin gtt - Continue aspirin, metoprolol, statin - Cardiac surgery c/s for CABG evaluation (Dr. Carson on board) - Hgba1c and lipid panel in the AM Respiratory: - No active issues GI: #GERD - Omeprazole 40 mg daily Renal/: - No active issues Heme/Onc: - No active issues Endo: - No active issues ID: - No active issues MSK/Rheum: # Chronic pain (rotator cuff, spinal stenosis, lumbar radiculopathy) - Holding home perkocet - Cont. home duloxetine - Will add Tylenol and oxy for pain mgmt. Derm: - No active issues Psych: - No active issues F: Replete PRN E: Replete PRN N: Regular Diet DVT Ppx: Heparin gtt GI Ppx: Omeprazole Access/Lines: PIV Abx: None O2: None Pain regimen: Tylenol /Oxy GI Laxative: None Code Status: Full Code (Confirmed on admission) Contact: Joel Latham (Son): Maty Chambers MD Associated attestation - Susan Braun MD - 05/05/2023 6:26 AM EDT Critical Care Patient: I have reviewed and evaluated the most recent data and results, personally examined the patient, and formulated the plan of care as presented above. This patient was criticallyill and required continued critical care treatment. Teaching and any separately billable proceduresare not included in the time calculation. Billing Provider Critical Care Time: 35 minute(s) Patient is a 57-year-old man with PMH of HTN and HLD, who presented to [facility] with lateral STEMI status post bulbar to diagonal 1 and ramus, and placement of IABP, and subsequently transferred to [facility] for evaluation for CABG [99% of the LAD with robust RCA collaterals]. LVEF is down to 30% with RWMA in the LAD territory and lateral wall. Patient is currently free of chest pain. CT surgery team was consulted. Continue IABP support. Continue heparin drip and wean off nitroglycerin drip. Continue aspirin, statin, and beta-osiris. Appreciate CT surgery team recs. Susan Braun [facility] Phone: [phone] Miscellaneous Notes* Post-Procedure Note - Jeanette Perez APRN-[employer]OD AND [employer]EVERAGE OUTLETS MANAGER - 05/15/2023 10:17 AM EDT Ventricular wires cut at skin level due. Patient instructed to notify radiology of retained epicardial wires prior to any MRI procedure, and to notify Dr Trevino of any visible wires or s/s infection. * Care Plan - Mansi Shelley RN - 05/14/2023 11:43 PM EDT The patient's goals for the shift include pain management through meds, activity, and other non-medicinal modes of pain relief. * Care Plan - Mayda Og OT - 05/14/2023 12:09 PM EDT Problem: ADLs Goal: Patient will perform UB and LB bathing with independent level of assistance Outcome: Progressing Goal: Patient with complete upper body dressing with independent level of assistance donning and doffing all UE clothes with no adaptive equipment Outcome: Progressing Goal: Patient with complete lower body dressing with independent level of assistance donning and doffing all LE clothes with no adaptive equipment Outcome: Progressing Goal: Patient will complete toileting including hygiene clothing management/hygiene with independent level of assistance Outcome: Progressing Problem: EXERCISE/STRENGTHENING Goal: Patient will complete BUE exercises for 3 sets and 10 reps in order to improve strength and activity for ADL performance. Outcome: Progressing Problem: TRANSFERS Goal: Patient will complete functional transfers with independent level of assistance. Outcome: Progressing Problem: MOBILITY Goal: Patient will perform Functional mobility max Household distances/Community Distances with independent level of assistance Outcome: Progressing * Care Plan - Mansi Shelley RN - 05/13/2023 9:55 PM EDT Goal for patient's pain to be tolerable throughout shift. Educated on pain medications, other alternatives, and activities to relieve pain. * Care Plan - Wilberto Collins RN - 05/12/2023 11:53 PM EDT The patient's goals for the shift include pain control The clinical goals for the shift include pain control Problem: Discharge Planning Goal: Discharge to home or other facility with appropriate resources Outcome: Progressing Problem: Chronic Conditions and Co-morbidities Goal: Patient's chronic conditions and co-morbidity symptoms are monitored and maintained or improved Outcome: Progressing Problem: Skin Goal: Decreased wound size/increased tissue granulation at next dressing change Outcome: Progressing Goal: Participates in plan/prevention/treatment measures Outcome: Progressing Goal: Prevent/manage excess moisture Outcome: Progressing Goal: Prevent/minimize sheer/friction injuries Outcome: Progressing Goal: Promote/optimize nutrition Outcome: Progressing Goal: Promote skin healing Outcome: Progressing Problem: Pain Goal: Walks with improved pain control throughout the shift Outcome: Progressing Goal: Performs ADL's with improved pain control throughout shift Outcome: Progressing Goal: Participates in PT with improved pain control throughout the shift Outcome: Progressing Goal: Free from opioid side effects throughout the shift Outcome: Progressing Goal: Free from acute confusion related to pain meds throughout the shift Outcome: Progressing Problem: Fall/Injury Goal: Verbalize understanding of risk factor reduction measures to prevent injury from fall in the home Outcome: Progressing Goal: Use assistive devices by end of the shift Outcome: Progressing Goal: Pace activities to prevent fatigue by end of the shift Outcome: Progressing Problem: Heart Failure Goal: Improved gas exchange this shift Outcome: Progressing Goal: Improved urinary output this shift Outcome: Progressing Goal: Reduction in peripheral edema within 24 hours Outcome: Progressing Goal: Report improvement of dyspnea/breathlessness this shift Outcome: Progressing Goal: Weight from fluid excess reduced over 2-3 days, then stabilize Outcome: Progressing Goal: Increase self care and/or family involvement in 24 hours Outcome: Progressing * Hospital Course - Adelina Morrow APRN-J[facility]ATH[place] - 05/12/2023 5:03 PM EDT Morgan Latham is a 57 y.o. male presenting with Mr. Latham 57yo M with PMHx of HTN, DLD, GERD, tobacco use disorder and chronic pain (rotator cuff, spinal stenosis, lumbar radiculopathy) who presented to the ED with cc of chest pain. Pt noted that his CP started about 3 weeks ago. Initially it would last 3 mins and would only happen at night, it was always substernal and was 10/10 in severity. The pain would go away on its own so pt didn't do anything about it. The pain cont. and started lasting longer and longer each time, eventually happening even in the morning. Pt was not exerting himselfwhen this was happening and almost all of these times, he was resting in bed. Pt became scared and decided to seek emergent medical care. Pt denies n/v/c/d, no SOB or cold/cough like symptoms, no burning with urination, increased urinary frequency or urinary urgency. OSH COURSE: He arrived at the [place] [facility] and was seen to have high lateral/anterior ST elevated in leads I andaVL with reciprocal inferolateral changes/ ST depression and elevated trops. 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 Pt was seen to have multivessel disease on [facility], a balloon pump was placed and pt was started on heparin gtt, and nitro gtt and transferred to [facility] for CABG eval. OPERATIVE PROCEDURES Dr Trevino on 05/07/23 Creation Bypass Graft Coronary Artery [place] CORONARY ARTERY BYP W/VEIN & ARTERY GRAFT 2 VEIN Via median sternotomy on cardiopulmonary bypass urgent coronary artery revascularization 1. ALVAREZ to LAD 2. Saphenous vein graft to CTICU course Transfer to LT 3 on 05/10 CTICU course Transferred to LT3 on 05/10 Floor Course: - Patient was diuresed for fluid volume overload post cardiac surgery; Preop weight: kg, discharge wt: kg - On ASA, statin, BB, by discharge - Epicardial wires {cut / pull epicardial wires:21867} on - 2v CXR done - Postop echo done - Postop CTA done - Cardiac rehab referral was placed - PT recs {PT recs for dc:50111} - Anticipate discharge to {discharge disposition:36423} Discharged on PAST MEDICAL HISTORY: - Not remarkable except per HPI PAST SURGICAL HISTORY: - Carpel tunnel surgery L 1978 - Bicep reconstruction 2019 - R. 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 Problem: Discharge Planning Goal: Discharge to home or other facility with appropriate resources Outcome: Progressing Problem: Chronic Conditions and Co-morbidities Goal: Patient's chronic conditions and co-morbidity symptoms are monitored and maintained or improved Outcome: Progressing Problem: Skin Goal: Decreased wound size/increased tissue granulation at next dressing change Outcome: Progressing Goal: Participates in plan/prevention/treatment measures Outcome: Progressing Goal: Prevent/manage excess moisture Outcome: Progressing Goal: Prevent/minimize sheer/friction injuries Outcome: Progressing Goal: Promote/optimize nutrition Outcome: Progressing Goal: Promote skin healing Outcome: Progressing Problem: Pain Goal: Walks with improved pain control throughout the shift Outcome: Progressing Goal: Performs ADL's with improved pain control throughout shift Outcome: Progressing Goal: Participates in PT with improved pain control throughout the shift Outcome: Progressing Goal: Free from opioid side effects throughout the shift Outcome: Progressing Goal: Free from acute confusion related to pain meds throughout the shift Outcome: Progressing Problem: Fall/Injury Goal: Verbalize understanding of risk factor reduction measures to prevent injury from fall in the home Outcome: Progressing Goal: Use assistive devices by end of the shift Outcome: Progressing Goal: Pace activities to prevent fatigue by end of the shift Outcome: Progressing Problem: Heart Failure Goal: Improved gas exchange this shift Outcome: Progressing Goal: Improved urinary output this shift Outcome: Progressing Goal: Reduction in peripheral edema within 24 hours Outcome: Progressing Goal: Report improvement of dyspnea/breathlessness this shift Outcome: Progressing Goal: Weight from fluid excess reduced over 2-3 days, then stabilize Outcome: Progressing Goal: Increase self care and/or family involvement in 24 hours Outcome: Progressing * Care Plan - Rhoda Raphael PT - 05/10/2023 12:39 PM EDT Problem: Balance Goal: Pt will demonstrated ability to score at least 24/28 on the Tinetti balance assessment tool to ensure safety upon D/C. Outcome: Progressing Problem: Mobility Goal: Pt will demonstrated ability to ambulate >/=400ft with proper form and no balance deficitsfor safe home going. Outcome: Progressing Problem: Transfers Goal: Pt will be able to complete 5X STS from lowest bed height with UE assist and RW <30 seconds with stable vitals and RPD </=3/10 and RPE </=13/20 for improved functional mobility Outcome: Progressing * Significant Event - Katerin Wilson RRT - 05/09/2023 11:37 AM EDT Pt extubated to 5lpm via nasal cannula. NO stridor noted. Voice intact * Significant Event - Gris Sahu RRT - 05/08/2023 9:57 PM EDT 05/08/232142 Weaning Parameters Weaning Vital Capacity 0.72 mL Negative Inspiratory Force (NIF) 42 Spontaneous Minute Volume (MV) 11.8 Weaning Tidal Volume 349 mL Respiratory Depth/Rhythm (rr 34) Respiratory Effort (shallow) Weaning Tolerance Fair Ps/peep decreased to +5 rsbi 97 * Significant Event - Gris Sahu RRT - 05/08/2023 6:50 AM EDT 05/08/23 0645 Daily Screen Total RSBI 110 Weaning Parameters Weaning Start Time 0645 Weaning Vital Capacity 0.5 mL Negative Inspiratory Force (NIF) 26 Spontaneous Minute Volume (MV) 11 Weaning Tidal Volume 317 mL Respiratory Depth/Rhythm (rr 35) Respiratory Effort Unlabored Dyspnea Occurrence Lying flat Weaning Tolerance Fair Placed on cpap weaning parameters done * Op Note - Frank Roger MD - 05/07/2023 4:46 PM EDT Creation Bypass Graft Coronary Artery Operative Note Date: 05/07/2023 OR Location: [facility] OR Name: Mrogan Latham, : 1965, Age: 57 y.o., , Sex: male Diagnosis Pre-op Diagnosis * Atherosclerotic heart disease of little [place] tribe coronary artery with unspecified angina pectoris (CMS/HCC) [I25.119] Post-op Diagnosis * Atherosclerotic heart disease of [place] tribe coronary artery with unspecified angina pectoris (CMS/HCC) [I25.119] Preoperative diagnosis 1. multivessel coronary artery disease status post acute myocardial infarction of the anterior lateral wall 2. Severe ischemic cardiomyopathy with severely depressed left ventricular ejection fraction fraction (30 to 35%) 3. Status post attempt at percutaneous coronary intervention 4. Status post insertion of intra-aortic balloon pump. Postoperative diagnosis 1. multivessel coronary artery disease status post acute myocardial infarction of the anterior lateral wall 2. Severe ischemic cardiomyopathy with severely depressed left ventricular ejection fraction fraction (30 to 35%) 3. Status post attempt at percutaneous coronary intervention 4. Status post insertion of intra-aortic balloon pump. Procedures Creation Bypass Graft Coronary Artery [id number] - [place] CORONARY ARTERY BYP W/VEIN & ARTERY GRAFT 2 VEIN Via median sternotomy on cardiopulmonary bypass urgent coronary artery revascularization 1. ALVAREZ to LAD 2. Saphenous vein graft to [facility] Surgeons * Ottoniel Trevino - Primary Frank Roger MD - Assisting. assisted on this surgery as there was no qualified resident. Dr. Roger had actively participated in each and every step of the operation. Procedure Summary Anesthesia: General ASA: IV Anesthesia Staff: Anesthesiologist: Santiago Urias MD; Cameron Rodas MD C-AA: NESSA Queen Field Sales Representative: Carito Pitt MD Earrings Fabricator: Juvenal Hsieh; Mani Simental Estimated Blood Loss: 200 mL Intra-op Medications: Medication Name Total Dose flu vacc [id number] 6mos up (PF) (Fluarix, Flulaval, Fluzone) syringe 0.5 mL Cannot be calculated perflutren protein A microsphere (Optison) injection 0.5 mL Cannot be calculated acetaminophen (Tylenol) tablet 975 mg 975 mg aspirin EC tablet 81 mg Cannot be calculated atorvastatin (Lipitor) tablet 40 mg Cannot be calculated carvedilol (Coreg) tablet 6.25 mg Cannot be calculated dextrose 50 % injection 25 g Cannot be calculated DULoxetine (Cymbalta) DR capsule 20 mg Cannot be calculated glucagon (Glucagen) injection 1 mg Cannot be calculated guaiFENesin (Mucinex) 12 hr tablet 600 mg Cannot be calculated heparin 25,000 Units in dextrose 5% 250 mL (100 Units/mL) infusion (premix) 3,053.17 Units hydrALAZINE (Apresoline) tablet 10 mg 10 mg insulin lispro (HumaLOG) injection 0-10 Units Cannot be calculated oxyCODONE (Roxicodone) immediate release tablet 5 mg Cannot be calculated pantoprazole (ProtoNix) EC tablet 40 mg Cannot be calculated polyethylene glycol (Glycolax, Miralax) packet 17 g Cannot be calculated potassium chloride CR (Klor-Con M20) ER tablet 20 mEq Cannot be calculated ranolazine (Ranexa) 12 hr tablet 500 mg Cannot be calculated spironolactone (Aldactone) tablet 12.5 mg Cannot be calculated sulfur hexafluoride microsphr (Lumason) injection 24.28 mg Cannot be calculated Anesthesia Record Intraprocedure I/O Totals Intake Norepinephrine Drip 0.00 mL The total shown is the total volume documented since Anesthesia Start was filed. Clevidipine Drip 0.00 mL The total shown is the total volume documented since Anesthesia Start was filed. Nitroglycerin Drip 0.00 mL The total shown is the total volume documented since Anesthesia Start was filed. Epinephrine Drip 0.00 mL The total shown is the total volume documented since Anesthesia Start was filed. Propofol Drip 0.00 mL The total shown is the total volume documented since Anesthesia Start was filed. Cell Saver 400 mL Total Intake 400 mL Output Urine 200 mL Est. Blood Loss 250 mL Total Output 450 mL Net Net Volume -50 mL Specimen: No specimens collected Staff: Test And Turn Up Technician: Doni Mari RN; Mikhail Laws RN; Live Avery RN; Mariela Kunz RN Scrub Person: Raissa Smallwood RN; Octavia Marie; Connor Martinez RN; Alyssa Blair Drains and/or Catheters: Chest Tube 1 Left Pleural 28 Fr (Active) Function -20 cm H2O 05/08/23 08 Chest Tube Air Leak No 05/08/23799 Patency Intervention Tip/tilt 05/07/23 215 Drainage Description Serosanguineous 05/08/23 08 Dressing Status Clean;Dry;Occlusive 05/08/23 1600 Site Assessment Clean;Dry;Intact 05/08/23 1600 Surrounding Skin Unable to view 05/08/23 08 Output (mL) 0 mL 05/08/23 1600 Chest Tube 1 Right Pleural 28 Fr (Active) Function -20 cm H2O 05/08/23 08 Chest Tube Air Leak No 05/08/23 08 Patency Intervention Tip/tilt 05/07/23 215 Drainage Description Serosanguineous 05/08/23 08 Dressing Status Clean;Dry;Occlusive 05/08/23 1600 Site Assessment Dry;Clean;Intact 05/08/23 1600 Surrounding Skin Unable to view 05/08/23 08 Output (mL) 0 mL 05/08/23 1600 Chest Tube 2 Mediastinal (Active) Function -20 cm H2O 05/08/23 08 Chest Tube Air Leak No 05/08/23 08 Drainage Description Serosanguineous 05/08/23 08 Dressing Status Clean;Dry;Occlusive 05/08/23 1600 Site Assessment Clean;Dry;Intact 05/08/23 1600 Surrounding Skin Dry;Intact 05/08/23 08 Sutures Removed Intact No (Comment) 05/08/23 08 Output (mL) 0 mL 05/08/23 1600 Urethral Catheter Coude 16 Fr. (Active) Site Assessment Clean;Skin intact 05/08/23 0903 Output (mL) 20 mL 05/08/23 1600 [REMOVED] Y Chest Tube 1 and 2 1 Anterior Mediastinal 28 Fr. 2 Posterior Mediastinal 28 Fr. (Removed) Function -20 cm H2O 05/08/23799 Chest Tube Air Leak No 05/08/23799 Drainage Description 1 Serosanguineous 05/08/23799 Dressing Status 1 Clean;Dry;Intact 05/08/23 08 Site Assessment 1 Dry;Clean;Intact 05/08/23799 Surrounding Skin 1 Unable to view 05/08/23799 Drainage Description 2 Serosanguineous 05/07/232150 Dressing Status 2 Clean;Dry 05/08/23 0000 Site Assessment 2 Clean;Dry 05/08/23 0000 Surrounding Skin Intact 05/07/232150 Output (mL) 0 mL 05/08/23899 Implants Type Name Action Serial No. Heart Valve CANNULA, AORTIC ROOT, 12G - [id number] Used, Not Implanted Heart Valve CANNULA, MULTIPLE PERFUSION SET, 15 - [id number] Used, Not Implanted Heart Valve KIT, CARDIOPLEGIA, VANGUARD HEAT EXCHANGER - [id number] Used, Not Implanted Heart Valve KIT, CELL SAVER, W/COLLECTION SET, 225ML WASH SET - [id number] Used, Not Implanted Cardiac Pacemaker LEAD, PACING, MYOCARDIAL, BIPOLAR, TEMPORARY - [id number] Used, Not Implanted Cardiac Pacemaker LEAD, PACING, MYOCARDIAL, BIPOLAR, TEMPORARY - [id number] Used, Not Implanted Heart Valve PUMP, ROTAFLOW BIOLINE - [id number] Used, Not Implanted Cardiac Pacemaker LEAD, PACING, MYOCARDIAL, BIPOLAR, TEMPORARY - [id number] Used, Not Implanted Heart Valve KIT, CELL SAVER, W/COLLECTION SET, 225ML WASH SET - [id number] Used, Not Implanted Findings: Preoperative transesophageal echocardiogram confirmed severely depressed LV function. Intraoperative findings showed a dilated heart with depressed function and evidence of subcu subacute myocardial scarring with thinned out myocardium on the anterior lateral aspect of the heart. There was also evidence of coronary hematoma around the branch of the diagonal off of the LAD from the previous PCI. Excellent flow characteristics were documented in both bypass grafts upon completion ofthe bypass surgery. Postoperative transesophageal echocardiogram revealed improved cardiac function. Indications: Morgan Latham is an 57 y.o. male who presented to an outside hospital after an acute ST elevation DE. He was taken urgently to the Report Specialist for an attempt at percutaneous coronary revascularization and was found to have multivessel coronary artery disease including complete occlusion of his left anterior descending coronary artery that was filling right to left from the right coronary artery. He was also found to have severely depressed cardiac function with an EF between 30 and 35% and severe ischemic cardiomyopathy requiring mechanical support. At this time an intra-aortic balloon pump was placed and the patient was transferred to [facility] for further care. Given his young age andongoing chest pain decision was made at surgical revascularization with the assumption that there was viable myocardium that would regain function after revascularization. Procedure Details: The patient was seen prior to surgery and the risks, benefits, complications, treatment options, non-operative alternatives, expected recovery and outcomes were discussed with the patient. The patient concurred with the proposed plan, giving informed consent. Preop Abx given within 1h ofthe incision Because a balloon pump was in place, the patient was brought to the OR directly from the CICU and placed on the operating table in a supine position. After appropriate huddle, GETA and appropriate monitoring were established. Patient was prepped and draped in sterile fashion from chin to feet. A median sternotomy was performed, ALVAREZ was procured off the wall in a skeletonized fashion, it was a good quality conduit. SVG was procured of the RLE using EVH technique - it was a good quality conduit as well. The patient was fully heparinized prior to transection of the ALVAREZ. At this point, the pericardium was opened and a pericardial well was created. In preparation for cardiopulmonary bypass aortic pursestring sutures were placed followed by pursestring suture placement on the right atrial appendage and in the body of the right atrium for venous cannulation as well as retrograde cardioplegia. Subsequently aortic and venous cannulation were performed in the cardiopulmonary pulmonary bypass circuit was connected. A retrograde cardioplegia cannula was then inserted through the coronary sinus. When her ACT was adequate cardiopulmonary bypass was initiated and an antegrade cardioplegia cannula was inserted in the ascending aorta. At this point the aorta was crossclamped and cardiac arrestwas provided with antegrade and retrograde cardioplegia which was repeated every 15 to 20 minutes throughout the duration of the case. We then identified our distal targets. We initially performed the distal anastomosis using the saphenous vein graft to the obtuse marginal. This anastomosis was done with a 7-0 Prolene in running fashion. After completing the anastomosis cardioplegia was given directly down the vein which revealed e xcellent flow. We then turned our attention to the LAD. Again the distal anastomosis using the internal mammary artery was created with a 7-0 Prolene in running fashion. We were satisfied with completion of this anastomosis which appeared to be hemostatic. At this point a hotshot of warm retrograde cardioplegia was delivered while the proximal saphenous vein graft anastomosis was being completed in the ascending aorta. This anastomosis was completed with the 6-0 Prolene in a running fashion. Atthis point we again checked our distal anastomosis which appeared to be hemostatic. The aortic cross-clamp was then removed and cardiac activity promptly returned in a normal sinus rhythm. At this point temporary ventricular pacing wires were placed and are retrograde cardioplegia cannula was removed. After appropriate reperfusion the patient was slowly weaned off of cardiopulmonary bypass with the intra-aortic balloon pump in place. Subsequently our venous cannula was removed. A flow probe wasused to check flows in both grafts which was excellent. At this point protamine was given to reverse the heparin effect and our aortic cannula was removed. We spent some time achieving hemostasis andall cannula sites were oversewn. Following this our mediastinal and pleural chest tubes were placed. We again checked for hemostasis which was excellent. The chest was closed with sternal wires and the incision was closed in multiple layers using running Vicryl followed by Monocryl suture for the skin. Sterile dressings were placed over the incision site. Complications: There were no intraoperative or immediate postoperative complications. Disposition: Patient was returned to the ICU in stable condition intubated with the intra-aortic balloon pump in place. Condition: Stable All sponge needle and instrument counts were correct. Cardiopulmonary bypass time was 84 minutes aortic cross-clamp time was [address] Trevino was present for the entire case.- * Care Plan - Nancy Mackey RN - 05/06/2023 5:50 PM EDT The patient's goals for the shift include manage pain and free of falls throughout my shift. The clinical goals for the shift include remain chest pain free throughout my shift * Pre-Procedure Note - Jeanette Perez APRN-FOOD AND BEVERAGE OUTLETS MANAGER - 05/06/2023 8:22 AM EDT Cardiac surgery update: - Plan for CABG with Dr. Trevino 05/07/23 - Type and screen pending - Blood and scrubs ordered for 05/07/23 - NPO at [facility] 05/07/23 - Covid swab negative 05/05/23 documented in this [facility] Work Phone: 1(952) 519-744710-09-2023 Nurse Note* Nuha Dhillon RN - 05/13/2023 3:15 PM EDT CHF Clinical Nurse Navigator Documentation Congestive Heart Failure disease education was performed by the Clinical Nurse Navigator with a good understanding: Yes CHF signs and symptoms discussed and when to call drop forge operator? yes Living With Heart Failure Education booklet? yes Controlling Heart Failure at Home Education? yes CHF Education Teaching Tool? yes Home medication usage? yes, HF-GDMT discussed with patient and its importance. Nutrition Education? low sodium Fluid Restriction Education? 2L or per provider instructions. Can be dependent on volume status. Daily Weight Education? yes Cardiovascular Rehab Referral ordered? Yes Follow-up with Human Resource Intern after discharge education? yes Comments: Met with patient at bedside for heart failure education. Patient verbalized understandingof heart failure education. Provided him with my name and phone number if he has any further questions. Patient scheduled to see Sherine Anne CNP for hospital follow-up as recommended by HF consult. Patient provided apppt. Details. 05/24/2023 11:20am at [facility] Heart Failure education folder provided to patient which includes Living with Heart Failure booklet, Handouts from both and [employer] [employer]: 1. HF and Your Ejection Fraction Explained ([email or web address]://[email or web address]/Files/Health-Topics/Heart- Failure/CM-coq-Wyue-Bxryjmrd-Dwxqcocq-Ifecgnlxn.pdf) 2. Self- Check Plan for HF Management (https://www.heart.org/-/media/Files/Health-Topics/Heart-Failu re/XT-Jsautxa-Xnkklpi.pdf) 3. Patient and Health Care Discussion Guide (https://www.heart.org/-/media/Files/Health-Topics/Heart -Failure/Xybjb-Uvlomgp-Gjgskgnvdw-Guide.pdf) 4. Action plan for Staying Healthy at Home with Heart Failure (https://www.hospitals.org/-/media/F gray/Services/Jzhyh-qvc-Rxbrdzdm/[email or web address]-Eutln-Cmqljod.pdf) 5. Medicine Chart for HF Management (https://pdf.[employer].[email or web address]_RA_Medicine_Chart_02kk_AC_FORM.pdf) 6. BP and Wt monitoring log (created by Myself) 7. - Know your heart failure zones and what to do magnet provided. 8. [facility] contact numbers magnet provided. JUSTUS Wu [phone] * Rosa Isela Almanza - 05/08/2023 10:05 AM EDT Mr. Latham is added for diabetes nurse education consult. He has no history of DM and is receiving SSI per CTICU protocol. Will sign off at this time. documented in this [facility] Work Phone: 1(696) 284-581910-06-2023 Consult note* David Reyna MD - 05/10/2023 5:20 PM EDTAssociated Order(s): Inpatient consult to Heart Failure Inpatient consult to Heart Failure Consult performed by: David Reyna MD Consult ordered by: Mariela Rene APRN-BUNGY JUMP MASTER Reason for consult: Heart failure management History Of Present Illness: Morgan Latham is a 57 y.o. male presenting with chest pain. He has HTN, HLD, active smoker, chronicpain, presenting with severe substernal chest pain, found to have lateral STEMI. LHC showed mid LAD99% occlusion, severe disease ramus, diagonal branch. Balloon angioplasty was done. IABP was placed. Further diagnostic imaging showed LVEF 30%, RWMA of LAD territory and lateral wall. He was then transferred to [facility]. S/p CABG x 2 (ALVAREZ to LAD, SVG to OM1) on 05/07/23. At the present, he denies chest pain, SOB, orthopnea, PND, dizziness, leg edema. Most recent 2-D echo (05/04/23) revealed LVEF 30-35%, hypokinetic apex, anterior wall and distal segment. Chest-Xray issuggestive of mild pulmonary edema. Last Recorded Vitals: Vitals: 05/10/23 1400 05/10/23 1500 05/10/23 1530 05/10/23 1600 BP: 118/80 125/77 Patient Position: Pulse: 99 99 99 108 Resp: 22 (!) 34 26 21 Temp: TempSrc: SpO2: 96% 92% 94% 92% Weight: Height: Last Labs: CBC - 05/10/2023: 2:31 AM 10.8 8.7 128 30.7 CMP - 05/10/2023: 2:31 AM 8.5 5.8 30 --- 0.5 2.2 3.3 20 52 PTT - 05/07/2023: 11:58 PM 1.2 13.5 27 Troponin I, High Sensitivity Date/Time Value Ref Range Status 05/05/2023 06:59 PM 17,382 (HH) 0 - 53 ng/L Final Comment: result 05/04/2023 05:29 PM 22,510 (HH) 0 - 53 ng/L Final Comment: result Previous result verified on 05/04/2023 1339 on specimen/case [id number] called with component [facility] for procedure Troponin I, High Sensitivity with value 53,345 ng/L. 05/04/2023 02:20 AM 53,345 (HH) 0 - 53 ng/L Final Hemoglobin A1C Date/Time Value Ref Range Status 05/04/2023 05:00 PM 5.9 (H) see below % Final LDL Calculated Date/Time Value Ref Range Status 05/04/2023 05:00 PM 73 (L) 140 - 190 mg/dL Final Comment: Near Borderline AGE Desirable Optimal High High Very High 0-19 Y 0 - 109 --- 110-129 >/= 130 ---- 20-24 Y 0 - 119 --- 120-159 >/= 160 ---- >24 Y 0 - 99 100-129 130-159 160-189 >/=190 VLDL Date/Time Value Ref Range Status 05/04/2023 05:00 PM 18 0 - 40 mg/dL Final Last I/O: I/O last 3 completed shifts: In: 2338.8 (25.8 mL/kg) [P.O.:800; I.V.:1138.8 (12.6 mL/kg); IV Piggyback:400] Out: 2355 (26 mL/kg) [Urine:2145 (0.7 mL/kg/hr); Chest Tube:210] Weight: 90.5 kg Past Cardiology Tests (Last 3 Years): EK/29: Sinus rhythm, lateral infarct Echo: Transthoracic Echo (TTE) Complete 05/04/2023 LVEF 30-35%, hypokinetic apex, anterior wall and distal segments, moderately dilated LA Past Medical History: He has a past medical history of Anesthesia of skin (12/16/2020), Personal history of other diseases of the circulatory system (12/16/2020), Personal history of other diseases of the musculoskeletal system and connective tissue (12/16/2020), and Unspecified visual loss (12/16/2020). Past Surgical History: He has no past surgical history on file. Social History: Smokes 3/4 ppd for 20+ years. Denies alcohol drinking or use of illicit drugs Family History: Father and mother - heart attack Allergies: Patient has no known allergies. Inpatient Medications: Scheduled medications Medication Dose Route Frequency acetaminophen 650 mg oral q4h Or acetaminophen 650 mg rectal q4h aspirin 81 mg oral Daily Or aspirin 81 mg oral Daily Or aspirin 150 mg rectal Daily atorvastatin 80 mg oral Daily clopidogrel 75 mg oral Daily docusate sodium 100 mg oral BID DULoxetine 30 mg oral Daily influenza 0.5 mL intramuscular During hospitalization gabapentin 300 mg oral q8h heparin (porcine) 5,000 Units subcutaneous q8h hydrALAZINE 25 mg oral q8h lidocaine 1 patch transdermal Daily melatonin 5 mg oral Nightly methocarbamol 500 mg oral q6h CARMEN metoprolol tartrate 25 mg oral BID pantoprazole 40 mg oral Daily before breakfast Or pantoprazole 40 mg intravenous Daily before breakfast perflutren protein A microsphere 0.5 mL intravenous Once in imaging polyethylene glycol 17 g oral BID PRN medications Medication naloxone oxyCODONE oxyCODONE Continuous Medications Medication Dose Last Rate Outpatient Medications: Current Outpatient Medications Medication Instructions celecoxib (CELEBREX) 200 mg, oral, 2 times daily cetirizine (ZYRTEC) 10 mg, oral, Daily PRN DULoxetine (CYMBALTA) 30 mg, oral, Every 24 hours gabapentin (NEURONTIN) 300 mg, oral, 3 times daily omeprazole (PRILOSEC) 40 mg, oral, 2 times daily oxyCODONE-acetaminophen (Percocet) 10-325 mg tablet 1 tablet, oral, 4 times daily PRN Physical Exam: Constitutional: General: Well developed adult without acute distress Appearance: Normal appearance. HENT: Head: Normocephalic and atraumatic. JVD at the clavicle Eyes: Conjunctiva/sclera: Conjunctivae normal. Cardiovascular: Rate and Rhythm: Normal rate and regular rhythm. Heart sounds: Normal heart sounds. No murmurs or gallups. Extremities: No edema Pulmonary: Effort: Pulmonary effort is normal. No respiratory distress. Breath sounds: Normal breath sounds bilaterally. No wheezing or rales. No cough. Abdominal: General: There is no distension. Active bowel sounds. Palpations: Abdomen is soft and non-tender. Skin: General: Skin is warm and dry. Comments: Median sternotomy incision c/d/I, well approximated Neurological: Mental Status: He is alert and oriented to person, place, and time. Mental status is at baseline. Psychiatric: Mood and Affect: Mood normal. Behavior: Behavior normal. Assessment/Plan 57 y/o Male with PMHx of HTN, HLD, active smoker, chronic pain, presenting with severe substernal chest pain, found to have lateral STEMI. LHC showed mid LAD 99% occlusion, severe disease ramus, diagonal branch. LVEF 30%, RWMA of LAD territory and lateral wall. S/p CABG x 2 (ALVAREZ to LAD, SVG to Om1) on 05/07/23. Most recent 2-D echo (05/04/23) revealed LVEF 30-35%, hypokinetic apex, anterior wall and distal segment. #HFrEF, LVEF 30-35% not in overt decompensated state, with adequate perfusion #Ischemic cardiomyopathy/CAD #s/p CABG x 2 (ALVAREZ-LAD, SVG-OM1) on 05/07/23 #Active cigarette smoking Recommendations: Repeat 2-D echo. Repeat 12-lead EKG. Start Empagliflozin 10 mg PO daily tomorrow morning. Continue metoprolol tartrate 25 mg bid, Hydralazine 25 mg q 8 hrs. Continue ASA, Plavix, Lipitor. Cigarette smoking cessation program. Outpatient Cardiac Rehab program. Patient will need to be scheduled for outpatient HF clinic follow up within 1-2 weeks of discharge. HF service will follow up for further GDMT recommendations. Discussed with HF service attending, Dr. Xu Lucas. Signed: David Reyna MD Associated attestation - Mian Lucas MD - 05/11/2023 8:21 AM EDT I saw and evaluated the patient. I personally obtained the miller and critical portions of the historyand physical exam or was physically present for miller and critical portions performed by the resident/fellow. I reviewed the resident/fellow's documentation and discussed the patient with the resident/zara maher. I agree with the resident/fellow's medical decision making as documented in the note. * Joshua Mckeon MD - 05/08/2023 1:12 PM EDT Morgan Latham is a 57 y.o. year old male patient who presented for a coronary artery bypass graft x2 with Dr. Trevino. Acute Pain consulted for block for postoperative pain control. Anticipated Postop Pain Issues - Palliative: typically relieved with IV analgesics and regional local anesthetics Provocative: typically with movement Quality: typically burning and aching Radiation: typically none Severity: typically severe -05/14 Timing: typically constant PMH: HTN, DLD, CAD, previous DE, GERD, OA, chronic pain on opioids, history of facial reconstruction, Right eye prosthesis, sinusitis, bilateral rotator cuff tears, and R bicep tear PSH: Facial reconstruction, Right Eye prosthesis, left knee repair, left Achilles repair, appendectomy FHx: Uncle had CABG SHx: Current smoker (0.75-1ppd for 30 years), denies alcohol or illicit drug use Allergies: NKDA Review of Systems Unable to obtain 12 point review of systems as patient is intubated and sedated Physical Exam: Constitutional: sedated Eyes: clear sclera Head/Neck: No apparent injury, trachea midline Respiratory/Thorax: intuabted Cardiovascular: no pitting edema Gastrointestinal: Nondistended Musculoskeletal: sedated Extremities: no clubbing Neurological: intubated and sedated Psychological: intubated and sedated Results for orders placed or performed during the hospital encounter of 05/03/23 (from the past 24 hour(s)) ACTIVATED CLOTTING TIME HIGH Result Value Ref Range POCT Activated Clotting Time High Range 94 (L) 96 - 152 sec Blood Gas Arterial Full Panel Unsolicited Result Value Ref Range POCT pH, Arterial 7.40 7.38 - 7.42 pH POCT pCO2, Arterial 41 38 - 42 mm Hg POCT pO2, Arterial 126 (H) 85 - 95 mm Hg POCT SO2, Arterial 99 94 - 100 % POCT Oxy Hemoglobin, Arterial 97.4 94.0 - 98.0 % POCT Hematocrit Calculated, Arterial 37.0 (L) 41.0 - 52.0 % POCT Sodium, Arterial 136 136 - 145 mmol/L POCT Potassium, Arterial 4.0 3.5 - 5.3 mmol/L POCT Chloride, Arterial 106 98 - 107 mmol/L POCT Ionized Calcium, Arterial 1.11 1.10 - 1.33 mmol/L POCT Glucose, Arterial 117 (H) 74 - 99 mg/dL POCT Lactate, Arterial 0.7 0.4 - 2.0 mmol/L POCT Base Excess, Arterial 0.5 -2.0 - 3.0 mmol/L POCT HCO3 Calculated, Arterial 25.4 22.0 - 26.0 mmol/L POCT Hemoglobin, Arterial 12.4 (L) 13.5 - 17.5 g/dL POCT Anion Gap, Arterial 9 (L) 10 - 25 mmo/L Patient Temperature 37.0 degrees Celsius FiO2 100 % Coox Panel, Arterial Unsolicited Result Value Ref Range POCT Hemoglobin, Arterial 12.4 (L) 13.5 - 17.5 g/dL POCT Oxy Hemoglobin, Arterial 97.4 94.0 - 98.0 % POCT Carboxyhemoglobin, Arterial 0.7 % POCT Methemoglobin, Arterial 0.8 0.0 - 1.5 % POCT Deoxy Hemoglobin, Arterial 1.1 0.0 - 5.0 % ACTIVATED CLOTTING TIME HIGH Result Value Ref Range POCT Activated Clotting Time High Range 458 (H) 96 - 152 sec Blood Gas Arterial Full Panel Unsolicited Result Value Ref Range POCT pH, Arterial 7.45 (H) 7.38 - 7.42 pH POCT pCO2, Arterial 37 (L) 38 - 42 mm Hg POCT pO2, Arterial 538 (H) 85 - 95 mm Hg POCT SO2, Arterial 100 94 - 100 % POCT Oxy Hemoglobin, Arterial 98.6 (H) 94.0 - 98.0 % POCT Hematocrit Calculated, Arterial 30.0 (L) 41.0 - 52.0 % POCT Sodium, Arterial 135 (L) 136 - 145 mmol/L POCT Potassium, Arterial 4.9 3.5 - 5.3 mmol/L POCT Chloride, Arterial 104 98 - 107 mmol/L POCT Ionized Calcium, Arterial 1.05 (L) 1.10 - 1.33 mmol/L POCT Glucose, Arterial 157 (H) 74 - 99 mg/dL POCT Lactate, Arterial 1.5 0.4 - 2.0 mmol/L POCT Base Excess, Arterial 1.7 -2.0 - 3.0 mmol/L POCT HCO3 Calculated, Arterial 25.7 22.0 - 26.0 mmol/L POCT Hemoglobin, Arterial 10.0 (L) 13.5 - 17.5 g/dL POCT Anion Gap, Arterial 10 10 - 25 mmo/L Patient Temperature 37.0 degrees Celsius FiO2 100 % Coox Panel, Arterial Unsolicited Result Value Ref Range POCT Hemoglobin, Arterial 10.0 (L) 13.5 - 17.5 g/dL POCT Oxy Hemoglobin, Arterial 98.6 (H) 94.0 - 98.0 % POCT Carboxyhemoglobin, Arterial 0.5 % POCT Methemoglobin, Arterial 0.6 0.0 - 1.5 % POCT Deoxy Hemoglobin, Arterial 0.3 0.0 - 5.0 % ACTIVATED CLOTTING TIME HIGH Result Value Ref Range POCT Activated Clotting Time High Range 413 (H) 96 - 152 sec ACTIVATED CLOTTING TIME HIGH Result Value Ref Range POCT Activated Clotting Time High Range 465 (H) 96 - 152 sec ACTIVATED CLOTTING TIME HIGH Result Value Ref Range POCT Activated Clotting Time High Range 427 (H) 96 - 152 sec Blood Gas Arterial Full Panel Unsolicited Result Value Ref Range POCT pH, Arterial 7.38 7.38 - 7.42 pH POCT pCO2, Arterial 43 (H) 38 - 42 mm Hg POCT pO2, Arterial 105 (H) 85 - 95 mm Hg POCT SO2, Arterial 98 94 - 100 % POCT Oxy Hemoglobin, Arterial 96.9 94.0 - 98.0 % POCT Hematocrit Calculated, Arterial 29.0 (L) 41.0 - 52.0 % POCT Sodium, Arterial 136 136 - 145 mmol/L POCT Potassium, Arterial 5.5 (H) 3.5 - 5.3 mmol/L POCT Chloride, Arterial 106 98 - 107 mmol/L POCT Ionized Calcium, Arterial 1.30 1.10 - 1.33 mmol/L POCT Glucose, Arterial 152 (H) 74 - 99 mg/dL POCT Lactate, Arterial 2.3 (H) 0.4 - 2.0 mmol/L POCT Base Excess, Arterial 0.2 -2.0 - 3.0 mmol/L POCT HCO3 Calculated, Arterial 25.4 22.0 - 26.0 mmol/L POCT Hemoglobin, Arterial 9.5 (L) 13.5 - 17.5 g/dL POCT Anion Gap, Arterial 10 10 - 25 mmo/L Patient Temperature 37.0 degrees Celsius FiO2 100 % Coox Panel, Arterial Unsolicited Result Value Ref Range POCT Hemoglobin, Arterial 9.5 (L) 13.5 - 17.5 g/dL POCT Oxy Hemoglobin, Arterial 96.9 94.0 - 98.0 % POCT Carboxyhemoglobin, Arterial 0.6 % POCT Methemoglobin, Arterial 0.9 0.0 - 1.5 % POCT Deoxy Hemoglobin, Arterial 1.6 0.0 - 5.0 % ACTIVATED CLOTTING TIME HIGH Result Value Ref Range POCT Activated Clotting Time High Range 96 96 - 152 sec Calcium, Ionized Result Value Ref Range POCT Calcium, Ionized 1.12 1.1 - 1.33 mmol/L Blood Gas Arterial Full Panel Unsolicited Result Value Ref Range POCT pH, Arterial 7.42 7.38 - 7.42 pH POCT pCO2, Arterial 36 (L) 38 - 42 mm Hg POCT pO2, Arterial 72 (L) 85 - 95 mm Hg POCT SO2, Arterial 94 94 - 100 % POCT Oxy Hemoglobin, Arterial 92.6 (L) 94.0 - 98.0 % POCT Hematocrit Calculated, Arterial 38.0 (L) 41.0 - 52.0 % POCT Sodium, Arterial 139 136 - 145 mmol/L POCT Potassium, Arterial 4.7 3.5 - 5.3 mmol/L POCT Chloride, Arterial 106 98 - 107 mmol/L POCT Ionized Calcium, Arterial 1.20 1.10 - 1.33 mmol/L POCT Glucose, Arterial 138 (H) 74 - 99 mg/dL POCT Lactate, Arterial 1.6 0.4 - 2.0 mmol/L POCT Base Excess, Arterial -0.7 -2.0 - 3.0 mmol/L POCT HCO3 Calculated, Arterial 23.4 22.0 - 26.0 mmol/L POCT Hemoglobin, Arterial 12.7 (L) 13.5 - 17.5 g/dL POCT Anion Gap, Arterial 14 10 - 25 mmo/L Patient Temperature 37.0 degrees Celsius Magnesium Result Value Ref Range Magnesium 2.58 (H) 1.60 - 2.40 mg/dL CBC Result Value Ref Range WBC 13.7 (H) 4.4 - 11.3 x10*3/uL nRBC 0.0 0.0 - 0.0 /100 WBCs RBC 3.75 (L) 4.50 - 5.90 x10*6/uL Hemoglobin 11.7 (L) 13.5 - 17.5 g/dL Hematocrit 35.0 (L) 41.0 - 52.0 % MCV 93 80 - 100 fL MCH 31.2 26.0 - 34.0 pg MCHC 33.4 32.0 - 36.0 g/dL RDW 13.4 11.5 - 14.5 % Platelets 145 (L) 150 - 450 x10*3/uL MPV 10.7 7.5 - 11.5 fL Renal Function Panel Result Value Ref Range Glucose 141 (H) 74 - 99 mg/dL Sodium 141 136 - 145 mmol/L Potassium 4.5 3.5 - 5.3 mmol/L Chloride 107 98 - 107 mmol/L Bicarbonate 22 21 - 32 mmol/L Anion Gap 17 10 - 20 mmol/L Urea Nitrogen 15 6 - 23 mg/dL Creatinine 1.24 0.50 - 1.30 mg/dL eGFR 67 >60 mL/min/1.73m*2 Calcium 8.9 8.6 - 10.6 mg/dL Phosphorus 4.2 2.5 - 4.9 mg/dL Albumin 3.5 3.4 - 5.0 g/dL Coagulation Screen Result Value Ref Range Protime 13.5 (H) 9.8 - 12.8 seconds INR 1.2 (H) 0.9 - 1.1 aPTT 27 27 - 38 seconds Fibrinogen Result Value Ref Range Fibrinogen 383 200 - 400 mg/dL Blood Gas Venous Full Panel Unsolicited Result Value Ref Range POCT pH, Venous 7.43 7.33 - 7.43 pH POCT pCO2, Venous 39 (L) 41 - 51 mm Hg POCT pO2, Venous 42 35 - 45 mm Hg POCT SO2, Venous 58 45 - 75 % POCT Oxy Hemoglobin, Venous 57.2 45.0 - 75.0 % POCT Hematocrit Calculated, Venous 34.0 (L) 41.0 - 52.0 % POCT Sodium, Venous 139 136 - 145 mmol/L POCT Potassium, Venous 4.4 3.5 - 5.3 mmol/L POCT Chloride, Venous 107 98 - 107 mmol/L POCT Ionized Calicum, Venous 1.15 1.10 - 1.33 mmol/L POCT Glucose, Venous 135 (H) 74 - 99 mg/dL POCT Lactate, Venous 1.7 0.4 - 2.0 mmol/L POCT Base Excess, Venous 1.5 -2.0 - 3.0 mmol/L POCT HCO3 Calculated, Venous 25.9 22.0 - 26.0 mmol/L POCT Hemoglobin, Venous 11.4 (L) 13.5 - 17.5 g/dL POCT Anion Gap, Venous 11.0 10.0 - 25.0 mmol/L Patient Temperature 37.0 degrees Celsius POCT GLUCOSE Result Value Ref Range POCT Glucose 117 (H) 74 - 99 mg/dL POCT GLUCOSE Result Value Ref Range POCT Glucose 146 (H) 74 - 99 mg/dL Magnesium Result Value Ref Range Magnesium 2.32 1.60 - 2.40 mg/dL CALCIUM, IONIZED Result Value Ref Range POCT Calcium, Ionized 1.10 1.1 - 1.33 mmol/L Renal Function Panel Result Value Ref Range Glucose 145 (H) 74 - 99 mg/dL Sodium 143 136 - 145 mmol/L Potassium 4.2 3.5 - 5.3 mmol/L Chloride 109 (H) 98 - 107 mmol/L Bicarbonate 22 21 - 32 mmol/L Anion Gap 16 10 - 20 mmol/L Urea Nitrogen 18 6 - 23 mg/dL Creatinine 1.26 0.50 - 1.30 mg/dL eGFR 66 >60 mL/min/1.73m*2 Calcium 8.6 8.6 - 10.6 mg/dL Phosphorus 4.1 2.5 - 4.9 mg/dL Albumin 3.2 (L) 3.4 - 5.0 g/dL CBC Result Value Ref Range WBC 9.4 4.4 - 11.3 x10*3/uL nRBC 0.0 0.0 - 0.0 /100 WBCs RBC 3.37 (L) 4.50 - 5.90 x10*6/uL Hemoglobin 10.3 (L) 13.5 - 17.5 g/dL Hematocrit 31.4 (L) 41.0 - 52.0 % MCV 93 80 - 100 fL MCH 30.6 26.0 - 34.0 pg MCHC 32.8 32.0 - 36.0 g/dL RDW 13.5 11.5 - 14.5 % Platelets 143 (L) 150 - 450 x10*3/uL MPV 11.0 7.5 - 11.5 fL POCT GLUCOSE Result Value Ref Range POCT Glucose 148 (H) 74 - 99 mg/dL Blood Gas Arterial Full Panel Unsolicited Result Value Ref Range POCT pH, Arterial 7.47 (H) 7.38 - 7.42 pH POCT pCO2, Arterial 32 (L) 38 - 42 mm Hg POCT pO2, Arterial 70 (L) 85 - 95 mm Hg POCT SO2, Arterial 96 94 - 100 % POCT Oxy Hemoglobin, Arterial 94.0 94.0 - 98.0 % POCT Hematocrit Calculated, Arterial 33.0 (L) 41.0 - 52.0 % POCT Sodium, Arterial 139 136 - 145 mmol/L POCT Potassium, Arterial 4.3 3.5 - 5.3 mmol/L POCT Chloride, Arterial 109 (H) 98 - 107 mmol/L POCT Ionized Calcium, Arterial 1.17 1.10 - 1.33 mmol/L POCT Glucose, Arterial 142 (H) 74 - 99 mg/dL POCT Lactate, Arterial 1.2 0.4 - 2.0 mmol/L POCT Base Excess, Arterial 0.1 -2.0 - 3.0 mmol/L POCT HCO3 Calculated, Arterial 23.3 22.0 - 26.0 mmol/L POCT Hemoglobin, Arterial 11.1 (L) 13.5 - 17.5 g/dL POCT Anion Gap, Arterial 11 10 - 25 mmo/L Patient Temperature 37.0 degrees Celsius Blood Gas Mixed Venous Full Panel Unsolicited Result Value Ref Range POCT pH, Mixed 7.43 7.33 - 7.43 pH POCT pCO2, Mixed 37 (L) 41 - 51 mm Hg POCT pO2, Mixed 36 35 - 45 mm Hg POCT SO2, Mixed 55 45 - 75 % POCT Oxy Hemoglobin, Mixed 53.9 45.0 - 75.0 % POCT Hematocrit Calculated, Mixed 32.0 (L) 41.0 - 52.0 % POCT Sodium, Mixed 140 136 - 145 mmol/L POCT Potassium, Mixed 4.2 3.5 - 5.3 mmol/L POCT Chloride, Mixed 109 (H) 98 - 107 mmol/L POCT Ionized Calcium, Mixed 1.16 1.10 - 1.33 mmol/L POCT Glucose, Mixed 133 (H) 74 - 99 mg/dL POCT Lactate, Mixed 1.1 0.4 - 2.0 mmol/L POCT Base Excess, Mixed 0.4 -2.0 - 3.0 mmol/L POCT HCO3 Calculated, Mixed 24.6 22.0 - 26.0 mmol/L POCT Hemoglobin, Mixed 10.7 (L) 13.5 - 17.5 g/dL POCT Anion Gap, Mixed 11 10 - 25 mmo/L Patient Temperature 37.0 degrees Celsius Blood Gas Arterial Full Panel Unsolicited Result Value Ref Range POCT pH, Arterial 7.46 (H) 7.38 - 7.42 pH POCT pCO2, Arterial 39 38 - 42 mm Hg POCT pO2, Arterial 80 (L) 85 - 95 mm Hg POCT SO2, Arterial 97 94 - 100 % POCT Oxy Hemoglobin, Arterial 95.6 94.0 - 98.0 % POCT Hematocrit Calculated, Arterial 44.0 41.0 - 52.0 % POCT Sodium, Arterial 136 136 - 145 mmol/L POCT Potassium, Arterial 4.2 3.5 - 5.3 mmol/L POCT Chloride, Arterial 103 98 - 107 mmol/L POCT Ionized Calcium, Arterial 1.19 1.10 - 1.33 mmol/L POCT Glucose, Arterial 214 (H) 74 - 99 mg/dL POCT Lactate, Arterial 1.1 0.4 - 2.0 mmol/L POCT Base Excess, Arterial 3.7 (H) -2.0 - 3.0 mmol/L POCT HCO3 Calculated, Arterial 27.7 (H) 22.0 - 26.0 mmol/L POCT Hemoglobin, Arterial 14.7 13.5 - 17.5 g/dL POCT Anion Gap, Arterial 10 10 - 25 mmo/L Patient Temperature 37.0 degrees Celsius FiO2 21 % Coox Panel, Arterial Unsolicited Result Value Ref Range POCT Hemoglobin, Arterial 14.7 13.5 - 17.5 g/dL POCT Oxy Hemoglobin, Arterial 95.6 94.0 - 98.0 % POCT Carboxyhemoglobin, Arterial 1.1 % POCT Methemoglobin, Arterial 0.6 0.0 - 1.5 % POCT Deoxy Hemoglobin, Arterial 2.7 0.0 - 5.0 % POCT fingerstick glucose Result Value Ref Range POC Fingerstick Blood Glucose Blood Gas Arterial Full Panel Unsolicited Result Value Ref Range POCT pH, Arterial 7.38 7.38 - 7.42 pH POCT pCO2, Arterial 46 (H) 38 - 42 mm Hg POCT pO2, Arterial 181 (H) 85 - 95 mm Hg POCT SO2, Arterial 99 94 - 100 % POCT Oxy Hemoglobin, Arterial 97.6 94.0 - 98.0 % POCT Hematocrit Calculated, Arterial 41.0 41.0 - 52.0 % POCT Sodium, Arterial 133 (L) 136 - 145 mmol/L POCT Potassium, Arterial 3.9 3.5 - 5.3 mmol/L POCT Chloride, Arterial 104 98 - 107 mmol/L POCT Ionized Calcium, Arterial 1.12 1.10 - 1.33 mmol/L POCT Glucose, Arterial 238 (H) 74 - 99 mg/dL POCT Lactate, Arterial 0.8 0.4 - 2.0 mmol/L POCT Base Excess, Arterial 1.5 -2.0 - 3.0 mmol/L POCT HCO3 Calculated, Arterial 27.2 (H) 22.0 - 26.0 mmol/L POCT Hemoglobin, Arterial 13.8 13.5 - 17.5 g/dL POCT Anion Gap, Arterial 6 (L) 10 - 25 mmo/L Patient Temperature 37.0 degrees Celsius FiO2 100 % Coox Panel, Arterial Unsolicited Result Value Ref Range POCT Hemoglobin, Arterial 13.8 13.5 - 17.5 g/dL POCT Oxy Hemoglobin, Arterial 97.6 94.0 - 98.0 % POCT Carboxyhemoglobin, Arterial 0.5 % POCT Methemoglobin, Arterial 0.9 0.0 - 1.5 % POCT Deoxy Hemoglobin, Arterial 1.0 0.0 - 5.0 % POCT GLUCOSE Result Value Ref Range POCT Glucose 173 (H) 74 - 99 mg/dL Blood Gas Arterial Full Panel Unsolicited Result Value Ref Range POCT pH, Arterial 7.34 (L) 7.38 - 7.42 pH POCT pCO2, Arterial 49 (H) 38 - 42 mm Hg POCT pO2, Arterial 385 (H) 85 - 95 mm Hg POCT SO2, Arterial 100 94 - 100 % POCT Oxy Hemoglobin, Arterial 98.2 (H) 94.0 - 98.0 % POCT Hematocrit Calculated, Arterial 41.0 41.0 - 52.0 % POCT Sodium, Arterial 134 (L) 136 - 145 mmol/L POCT Potassium, Arterial 3.8 3.5 - 5.3 mmol/L POCT Chloride, Arterial 102 98 - 107 mmol/L POCT Ionized Calcium, Arterial 1.13 1.10 - 1.33 mmol/L POCT Glucose, Arterial 258 (H) 74 - 99 mg/dL POCT Lactate, Arterial 1.0 0.4 - 2.0 mmol/L POCT Base Excess, Arterial 0.0 -2.0 - 3.0 mmol/L POCT HCO3 Calculated, Arterial 26.4 (H) 22.0 - 26.0 mmol/L POCT Hemoglobin, Arterial 13.5 13.5 - 17.5 g/dL POCT Anion Gap, Arterial 9 (L) 10 - 25 mmo/L Patient Temperature 37.0 degrees Celsius FiO2 100 % Coox Panel, Arterial Unsolicited Result Value Ref Range POCT Hemoglobin, Arterial 13.5 13.5 - 17.5 g/dL POCT Oxy Hemoglobin, Arterial 98.2 (H) 94.0 - 98.0 % POCT Carboxyhemoglobin, Arterial 0.8 % POCT Methemoglobin, Arterial 0.6 0.0 - 1.5 % POCT Deoxy Hemoglobin, Arterial 0.4 0.0 - 5.0 % Blood Gas Arterial Full Panel Unsolicited Result Value Ref Range POCT pH, Arterial 7.43 (H) 7.38 - 7.42 pH POCT pCO2, Arterial 42 38 - 42 mm Hg POCT pO2, Arterial 268 (H) 85 - 95 mm Hg POCT SO2, Arterial 100 94 - 100 % POCT Oxy Hemoglobin, Arterial 98.5 (H) 94.0 - 98.0 % POCT Hematocrit Calculated, Arterial 35.0 (L) 41.0 - 52.0 % POCT Sodium, Arterial 135 (L) 136 - 145 mmol/L POCT Potassium, Arterial 4.5 3.5 - 5.3 mmol/L POCT Chloride, Arterial 104 98 - 107 mmol/L POCT Ionized Calcium, Arterial 1.07 (L) 1.10 - 1.33 mmol/L POCT Glucose, Arterial 207 (H) 74 - 99 mg/dL POCT Lactate, Arterial 1.4 0.4 - 2.0 mmol/L POCT Base Excess, Arterial 3.2 (H) -2.0 - 3.0 mmol/L POCT HCO3 Calculated, Arterial 27.9 (H) 22.0 - 26.0 mmol/L POCT Hemoglobin, Arterial 11.5 (L) 13.5 - 17.5 g/dL POCT Anion Gap, Arterial 8 (L) 10 - 25 mmo/L Patient Temperature 37.0 degrees Celsius FiO2 70 % Coox Panel, Arterial Unsolicited Result Value Ref Range POCT Hemoglobin, Arterial 11.5 (L) 13.5 - 17.5 g/dL POCT Oxy Hemoglobin, Arterial 98.5 (H) 94.0 - 98.0 % POCT Carboxyhemoglobin, Arterial 0.7 % POCT Methemoglobin, Arterial 0.3 0.0 - 1.5 % POCT Deoxy Hemoglobin, Arterial 0.4 0.0 - 5.0 % Blood Gas Mixed Venous Unsolicited Result Value Ref Range POCT pH, Mixed 7.44 (H) 7.33 - 7.43 pH POCT pCO2, Mixed 37 (L) 41 - 51 mm Hg POCT pO2, Mixed 40 35 - 45 mm Hg POCT SO2, Mixed 61 45 - 75 % POCT Oxy Hemoglobin, Mixed 60.6 45.0 - 75.0 % POCT Base Excess, Mixed 1.1 -2.0 - 3.0 mmol/L POCT HCO3 Calculated, Mixed 25.1 22.0 - 26.0 mmol/L Patient Temperature 37.0 degrees Celsius Blood Gas Venous Full Panel Unsolicited Result Value Ref Range POCT pH, Venous 7.36 7.33 - 7.43 pH POCT pCO2, Venous 50 41 - 51 mm Hg POCT pO2, Venous 45 35 - 45 mm Hg POCT SO2, Venous POCT Oxy Hemoglobin, Venous POCT Hematocrit Calculated, Venous POCT Sodium, Venous 135 (L) 136 - 145 mmol/L POCT Potassium, Venous 6.6 (HH) 3.5 - 5.3 mmol/L POCT Chloride, Venous 104 98 - 107 mmol/L POCT Ionized Calicum, Venous 1.09 (L) 1.10 - 1.33 mmol/L POCT Glucose, Venous 195 (H) 74 - 99 mg/dL POCT Lactate, Venous 1.4 0.4 - 2.0 mmol/L POCT Base Excess, Venous 1.9 -2.0 - 3.0 mmol/L POCT HCO3 Calculated, Venous 28.2 (H) 22.0 - 26.0 mmol/L POCT Hemoglobin, Venous POCT Anion Gap, Venous 9.0 (L) 10.0 - 25.0 mmol/L Patient Temperature 37.0 degrees Celsius FiO2 70 % Coox Panel, Venous Unsolicited Result Value Ref Range POCT Carboxyhemoglobin, Venous POCT Methemoglobin, Venous Blood Gas Venous Full Panel Unsolicited Result Value Ref Range POCT pH, Venous 7.37 7.33 - 7.43 pH POCT pCO2, Venous 49 41 - 51 mm Hg POCT pO2, Venous 46 (H) 35 - 45 mm Hg POCT SO2, Venous 77 (H) 45 - 75 % POCT Oxy Hemoglobin, Venous 76.0 (H) 45.0 - 75.0 % POCT Hematocrit Calculated, Venous 35.0 (L) 41.0 - 52.0 % POCT Sodium, Venous 135 (L) 136 - 145 mmol/L POCT Potassium, Venous 6.8 (HH) 3.5 - 5.3 mmol/L POCT Chloride, Venous 104 98 - 107 mmol/L POCT Ionized Calicum, Venous 1.09 (L) 1.10 - 1.33 mmol/L POCT Glucose, Venous 194 (H) 74 - 99 mg/dL POCT Lactate, Venous 1.4 0.4 - 2.0 mmol/L POCT Base Excess, Venous 2.3 -2.0 - 3.0 mmol/L POCT HCO3 Calculated, Venous 28.3 (H) 22.0 - 26.0 mmol/L POCT Hemoglobin, Venous 11.6 (L) 13.5 - 17.5 g/dL POCT Anion Gap, Venous 10.0 10.0 - 25.0 mmol/L Patient Temperature 37.0 degrees Celsius FiO2 70 % Coox Panel, Venous Unsolicited Result Value Ref Range POCT Carboxyhemoglobin, Venous 0.9 % POCT Methemoglobin, Venous 0.7 0.0 - 1.5 % Blood Gas Arterial Full Panel Unsolicited Result Value Ref Range POCT pH, Arterial 7.39 7.38 - 7.42 pH POCT pCO2, Arterial 44 (H) 38 - 42 mm Hg POCT pO2, Arterial 223 (H) 85 - 95 mm Hg POCT SO2, Arterial 99 94 - 100 % POCT Oxy Hemoglobin, Arterial 97.6 94.0 - 98.0 % POCT Hematocrit Calculated, Arterial 35.0 (L) 41.0 - 52.0 % POCT Sodium, Arterial 136 136 - 145 mmol/L POCT Potassium, Arterial 4.8 3.5 - 5.3 mmol/L POCT Chloride, Arterial 104 98 - 107 mmol/L POCT Ionized Calcium, Arterial 1.12 1.10 - 1.33 mmol/L POCT Glucose, Arterial 192 (H) 74 - 99 mg/dL POCT Lactate, Arterial 1.5 0.4 - 2.0 mmol/L POCT Base Excess, Arterial 1.3 -2.0 - 3.0 mmol/L POCT HCO3 Calculated, Arterial 26.6 (H) 22.0 - 26.0 mmol/L POCT Hemoglobin, Arterial 11.7 (L) 13.5 - 17.5 g/dL POCT Anion Gap, Arterial 10 10 - 25 mmo/L Patient Temperature 37.0 degrees Celsius FiO2 70 % Coox Panel, Arterial Unsolicited Result Value Ref Range POCT Hemoglobin, Arterial 11.7 (L) 13.5 - 17.5 g/dL POCT Oxy Hemoglobin, Arterial 97.6 94.0 - 98.0 % POCT Carboxyhemoglobin, Arterial 0.8 % POCT Methemoglobin, Arterial 0.9 0.0 - 1.5 % POCT Deoxy Hemoglobin, Arterial 0.7 0.0 - 5.0 % Blood Gas Arterial Full Panel Unsolicited Result Value Ref Range POCT pH, Arterial 7.39 7.38 - 7.42 pH POCT pCO2, Arterial 43 (H) 38 - 42 mm Hg POCT pO2, Arterial 295 (H) 85 - 95 mm Hg POCT SO2, Arterial 99 94 - 100 % POCT Oxy Hemoglobin, Arterial 98.2 (H) 94.0 - 98.0 % POCT Hematocrit Calculated, Arterial 34.0 (L) 41.0 - 52.0 % POCT Sodium, Arterial 135 (L) 136 - 145 mmol/L POCT Potassium, Arterial 5.6 (H) 3.5 - 5.3 mmol/L POCT Chloride, Arterial 105 98 - 107 mmol/L POCT Ionized Calcium, Arterial 1.10 1.10 - 1.33 mmol/L POCT Glucose, Arterial 194 (H) 74 - 99 mg/dL POCT Lactate, Arterial 1.7 0.4 - 2.0 mmol/L POCT Base Excess, Arterial 0.8 -2.0 - 3.0 mmol/L POCT HCO3 Calculated, Arterial 26.0 22.0 - 26.0 mmol/L POCT Hemoglobin, Arterial 11.3 (L) 13.5 - 17.5 g/dL POCT Anion Gap, Arterial 10 10 - 25 mmo/L Patient Temperature 37.0 degrees Celsius FiO2 70 % Coox Panel, Arterial Unsolicited Result Value Ref Range POCT Hemoglobin, Arterial 11.3 (L) 13.5 - 17.5 g/dL POCT Oxy Hemoglobin, Arterial 98.2 (H) 94.0 - 98.0 % POCT Carboxyhemoglobin, Arterial 0.7 % POCT Methemoglobin, Arterial 0.5 0.0 - 1.5 % POCT Deoxy Hemoglobin, Arterial 0.6 0.0 - 5.0 % Morgan Latham is a 57 y.o. year old male patient who presented for a coronary artery bypass graft x2 with Dr. Trevino on 05/07. Acute Pain consulted for block for postoperative pain control. Plan: - Bilateral SAP SS nerve blocks performed in the CTICU on 05/08. Unable to place catheters since he is scheduled to start Plavix tomorrow. - Pain medications per primary team - Will see on POD1 [place] [phone] ph [phone]. * Jeanette Perez, [employer]NAGER - 05/04/2023 4:41 PM EDTAssociated Order(s): IP CONSULT TO CARDIOTHORACIC SURGERY Reason For Consult CABG Eval History Of Present Illness Morgan Latham is a 57 y.o. male with HTN, DLD, CAD, previous DE, GERD, OA, chronic pain on opioids,history of facial reconstruction, Right eye prosthesis, sinusitis, bilateral rotator cuff tears, and R bicep tear who presented to [facility] with severe chest discomfort at rest for one month prior to presentation he has been experiencing episodic chest pain with exertion that became more pronounced in the last 3 days. Initial ECG at OSH STEMI in leads I and a VL. Brilinta and heparin were administered, Troponin peaked at > 5000. PCI demonstrated near total occlusion of the mid LAD and diagonal branch. LAD with 4 collaterals. Balloon angioplasty performed on the ramus and diagonal. Also, LV aneurysm was noted during procedure in the mid anterior wall. LVEDP 26 mm Hg, therefore IABP placed with resolution of symptoms. Transferred to [facility] for surgical eval On arrival, patient is hemodynamically stable on heparin gtt with resolved symptoms. Past Medical History HTN, DLD, CAD, previous DE, GERD, OA, chronic pain on opioids, history of facial reconstruction, Right eye prosthesis, sinusitis, bilateral rotator cuff tears, and R bicep tear Surgical History Facial reconstruction, Right Eye prosthesis, left knee repair, left Achilles repair, appendectomy Social History Current smoker 0.75-1ppd smoker for 30years Family History Uncle had CABG Allergies Patient has no known allergies. Review of Systems Constitutional: Positive for malaise/fatigue. HENT: Positive for congestion. Eyes: Positive for vision loss in right eye. Cardiovascular: Positive for chest pain. Respiratory: Positive for shortness of breath. Endocrine: Negative. Hematologic/Lymphatic: Negative. Skin: Negative. Musculoskeletal: Positive for arthritis. Gastrointestinal: Negative. Genitourinary: Negative. Neurological: Negative. Psychiatric/Behavioral: Negative. Physical Exam Constitutional: General: He is not in acute distress. HENT: Head: Comments: Scar R eye Eyes: Extraocular Movements: Right eye: Abnormal extraocular motion present. Comments: R eye prosthesis/blind Neck: Trachea: Trachea normal. Cardiovascular: Rate and Rhythm: Normal rate and regular rhythm. Pulses: Radial pulses are 2+ on the right side and 2+ on the left side. Posterior tibial pulses are 2+ on the right side and 2+ on the left side. Heart sounds: Normal heart sounds. Comments: IABP Right groin Pulmonary: Effort: Pulmonary effort is normal. Breath sounds: Normal breath sounds. Abdominal: General: Abdomen is flat. Bowel sounds are normal. Palpations: Abdomen is soft. Musculoskeletal: Right shoulder: Decreased range of motion. Left shoulder: Decreased range of motion. Cervical back: Normal range of motion and neck supple. Right lower leg: No edema. Left lower leg: No edema. Feet: Right foot: Skin integrity: Skin integrity normal. Left foot: Skin integrity: Skin integrity normal. Skin: General: Skin is warm and dry. Neurological: Mental Status: He is alert and oriented to person, place, and time. Psychiatric: Attention and Perception: Attention normal. Mood and Affect: Mood and affect normal. Speech: Speech normal. Behavior: Behavior normal. Behavior is cooperative. Last Recorded Vitals Blood pressure 139/85, pulse 74, temperature 36.9 C (98.4 F), resp. rate 21, height 1.727 m (5' 7.99 ), weight 86.9 kg (191 lb 9.3 oz), SpO2 99 %. Relevant Results . Results for orders placed or performed during the hospital encounter of 05/03/23 (from the past 24 hour(s)) CBC Result Value Ref Range WBC 9.3 4.4 - 11.3 x10E9/L nRBC 0.0 0.0 - 0.0 /100 WBC RBC 4.27 (L) 4.50 - 5.90 x10E12/L Hemoglobin 13.1 (L) 13.5 - 17.5 g/dL Hematocrit 39.6 (L) 41.0 - 52.0 % MCV 93 80 - 100 fL MCHC 33.1 32.0 - 36.0 g/dL Platelets 301 150 - 450 x10E9/L RDW 13.2 11.5 - 14.5 % Magnesium Result Value Ref Range Magnesium 2.05 1.60 - 2.40 mg/dL Renal Function Panel Result Value Ref Range Glucose 104 (H) 74 - 99 mg/dL Sodium 140 136 - 145 mmol/L Potassium 4.3 3.5 - 5.3 mmol/L Chloride 109 (H) 98 - 107 mmol/L Bicarbonate 23 21 - 32 mmol/L Anion Gap 12 10 - 20 mmol/L Urea Nitrogen 14 6 - 23 mg/dL Creatinine 0.96 0.50 - 1.30 mg/dL GFR MALE >90 >90 mL/min/1.73m2 Calcium 9.3 8.6 - 10.6 mg/dL Phosphorus 3.5 2.5 - 4.9 mg/dL Albumin 3.9 3.4 - 5.0 g/dL Heparin Assay Result Value Ref Range HEPARIN UNFRACTIONATED 0.2 IU/mL Lactate Dehydrogenase Result Value Ref Range LD 603 (H) 84 - 246 U/L Troponin I, High Sensitivity Result Value Ref Range Troponin I 73,550 (H) 0 - 53 ng/L Type And Screen Result Value Ref Range ABO GROUP (TYPE) IN BLOOD O Rh POS ANTIBODY SCREEN NEG Urinalysis with Reflex Microscopic Result Value Ref Range Color, Urine YELLOW STRAW,YELLOW Appearance, Urine HAZY CLEAR Specific [place], Urine 1.058 (H) 1.005 - 1.035 pH, Urine 5.0 5.0 - 8.0 Protein, Urine 30 (1+) (A) NEGATIVE mg/dL Glucose, Urine NEGATIVE NEGATIVE mg/dL Blood, Urine LARGE (3+) (A) NEGATIVE Ketones, Urine NEGATIVE NEGATIVE mg/dL Bilirubin, Urine NEGATIVE NEGATIVE Urobilinogen, Urine <2.0 0.0 - 1.9 mg/dL Nitrite, Urine NEGATIVE NEGATIVE Leukocyte Esterase, Urine NEGATIVE NEGATIVE Urinalysis Microscopic Only Result Value Ref Range WBC, Urine 60 (A) 0 - 5 /HPF RBC, Urine >182 (A) 0 - 5 /HPF Magnesium Result Value Ref Range Magnesium 2.03 1.60 - 2.40 mg/dL Troponin I, High Sensitivity Result Value Ref Range Troponin I, High Sensitivity 53,345 (HH) 0 - 53 ng/L Renal Function Panel Result Value Ref Range Glucose 106 (H) 74 - 99 mg/dL Sodium 140 136 - 145 mmol/L Potassium 4.4 3.5 - 5.3 mmol/L Chloride 108 (H) 98 - 107 mmol/L Bicarbonate 24 21 - 32 mmol/L Anion Gap 12 10 - 20 mmol/L Urea Nitrogen 14 6 - 23 mg/dL Creatinine 1.00 0.50 - 1.30 mg/dL eGFR 87 >60 mL/min/1.73m*2 Calcium 9.4 8.6 - 10.6 mg/dL Phosphorus 3.7 2.5 - 4.9 mg/dL Albumin 3.8 3.4 - 5.0 g/dL Heparin Assay Result Value Ref Range Heparin Unfractionated 0.3 See Comment Below for Therapeutic Ranges IU/mL Heparin Assay Result Value Ref Range Heparin Unfractionated 0.2 See Comment Below for Therapeutic Ranges IU/mL POCT GLUCOSE Result Value Ref Range POCT Glucose 199 (H) 74 - 99 mg/dL Transthoracic Echo (TTE) Complete Result Value Ref Range LV A4C EF 34.1 POCT GLUCOSE Result Value Ref Range POCT Glucose 132 (H) 74 - 99 mg/dL Protime-INR Result Value Ref Range Protime 12.0 9.8 - 12.8 seconds INR 1.1 0.9 - 1.1 Heparin Assay Result Value Ref Range Heparin Unfractionated 0.4 See Comment Below for Therapeutic Ranges IU/mL CBC and Auto Differential Result Value Ref Range WBC CANCELED nRBC CANCELED RBC CANCELED Hemoglobin CANCELED Hematocrit CANCELED MCV CANCELED MCHC CANCELED Platelets CANCELED RDW CANCELED Neutrophils % CANCELED Immature Granulocytes %, Automated CANCELED Lymphocytes % CANCELED Monocytes % CANCELED Eosinophils % CANCELED Basophils % CANCELED Neutrophils Absolute CANCELED Lymphocytes Absolute CANCELED Monocytes Absolute CANCELED Eosinophils Absolute CANCELED Basophils Absolute CANCELED MANUAL DIFFERENTIAL Y/N CANCELED Comprehensive Metabolic Panel Result Value Ref Range Glucose CANCELED Sodium CANCELED Potassium CANCELED Chloride CANCELED Bicarbonate CANCELED Anion Gap CANCELED Urea Nitrogen CANCELED Creatinine CANCELED GFR Female CANCELED GFR MALE CANCELED Calcium CANCELED Albumin CANCELED Alkaline Phosphatase CANCELED Total Protein CANCELED AST CANCELED Total Bilirubin CANCELED ALT (SGPT) CANCELED Lactate Dehydrogenase Result Value Ref Range LD CANCELED Magnesium Result Value Ref Range Magnesium CANCELED Protime-INR Result Value Ref Range Protime CANCELED INR CANCELED POCT GLUCOSE Result Value Ref Range POCT Glucose 125 (H) 74 - 99 mg/dL Heparin Assay Result Value Ref Range Heparin Unfractionated 0.4 See Comment Below for Therapeutic Ranges IU/mL CBC and Auto Differential Result Value Ref Range WBC 7.1 4.4 - 11.3 x10*3/uL nRBC 0.0 0.0 - 0.0 /100 WBCs RBC 4.07 (L) 4.50 - 5.90 x10*6/uL Hemoglobin 12.7 (L) 13.5 - 17.5 g/dL Hematocrit 36.5 (L) 41.0 - 52.0 % MCV 90 80 - 100 fL MCH 31.2 26.0 - 34.0 pg MCHC 34.8 32.0 - 36.0 g/dL RDW 13.1 11.5 - 14.5 % Platelets 231 150 - 450 x10*3/uL MPV 11.0 7.5 - 11.5 fL Neutrophils % 69.8 40.0 - 80.0 % Immature Granulocytes %, Automated 0.3 0.0 - 0.9 % Lymphocytes % 16.4 13.0 - 44.0 % Monocytes % 11.0 2.0 - 10.0 % Eosinophils % 1.8 0.0 - 6.0 % Basophils % 0.7 0.0 - 2.0 % Neutrophils Absolute 4.93 1.20 - 7.70 x10*3/uL Immature Granulocytes Absolute, Automated 0.02 0.00 - 0.70 x10*3/uL Lymphocytes Absolute 1.16 (L) 1.20 - 4.80 x10*3/uL Monocytes Absolute 0.78 0.10 - 1.00 x10*3/uL Eosinophils Absolute 0.13 0.00 - 0.70 x10*3/uL Basophils Absolute 0.05 0.00 - 0.10 x10*3/uL Assessment/Plan - Dr. Trevino aware of the patient - Surgical intervention will be determine after evaluation of films and images. - continue ASA/ statin/ BB - Please chart the contraindication for BB if not given - hold all antiplatelet medication except ASA - Hold all P2Y12 inhibitors, oral anticoagulation, NSAIDs and alternative/herbal supplements. - SGLT2 inhibitors (Farxiga, Jardiance) for at least 3 days prior to cardiac surgery to prevent euglycemic DKA - Hold gerardo/ arb 72 hours prior to surgery and in the preop period - Order in for all vascular studies/ PFTs/ UA & culture/ labs/ CXR - cMRI to eval viability of LAD territory - Echocardiogram / SUNITA - CT Chest due to history of heavy smoking and Evaluation of aorta - Ensure the films are uploaded into [employer] - MVERSE and scrubs will be ordered when surgical date determined I spent 60 minutes in the professional and overall care of this patient. CHRIS Holt documented in this [facility] Work Phone: [phone]) 888-348310-04-2023 Procedure note* Rudy Plummer MD - 05/08/2023 1:25 PM EDTAssociated Order(s): Peripheral Block Peripheral Block Patient location during procedure: ICU Reason for block: post-op pain management Staffing Performed: resident Authorized by: Rudy Plummer MD Performed by: Rudy Plummer MD Preanesthetic Checklist Completed: patient identified, IV checked, site marked, risks and benefits discussed, surgical consent, monitors and equipment checked, pre-op evaluation and timeout performed Timeout performed at: 05/08/2023 12:20 PM Peripheral Block Patient position: laying flat Prep: ChloraPrep Patient monitoring: heart rate and continuous pulse ox Block type: serratus anterior Laterality: B/L Injection technique: single-shot Guidance: ultrasound guided Local infiltration: lidocaine Needle Needle type: Tuohy Needle gauge: 26 G Needle length: 8 cm Needle localization: ultrasound guidance image stored in chart Assessment Injection assessment: negative aspiration for heme, no paresthesia on injection, incremental injection and local visualized surrounding nerve on ultrasound Additional Notes Serratus anterior plane nerve block: Informed consent obtained. Risk, benefits, alternatives discussed. ASA monitors placed, timeout performed. Patient positioned, prepped with chlorhexidine, and draped with sterile towels. Ultrasound guidance was used to visualize the needle throughout duration ofthe procedure. Aspiration was negative. A total of 30 cc of 0.5% ropivacaine, dexamethasone 4 mg, and 1:200,000 epinephrine was injected between both sides. Patient tolerated procedure well. Timeout by Elma JEROME * BEATRICE Mcintyre - 05/08/2023 12:54 PM EDT IABP Removal Note Right groin site prepped with chloraprep and sutures removed. IABP console then suspended and balloon pump removed. Firm pressure applied for 30 min, hemostasis not achieved after 30 min hold, additional 30 min of pressure applied with hemostasis. No hematoma noted; palpable femoral, DP, and PT pulses. Bedrest x 6 hours. RN notified. Trent Rocha CNP documented in this [facility] Work Phone: 1(804) 733-591710-03-2023 History and physical note* Martha Calderon DO - 05/07/2023 11:10 PM EDT CTICU History & Physical Subjective HPI: Mr. Latham 57yo M with PMHx of HTN, DLD, GERD, OA, CAD, active smoker, and chronic pain on opiods(rotator cuff, spinal stenosis, lumbar radiculopathy) p/w worsening chest pain, found to havea lateralSTEMI (peak Trop 73,550). Cath showed mid-LAD 99% occlusion (w/ robust RCA collaterals), and severedisease of the ramus and diagonal branch, which received balloon angioplasty. An IABP was placed for afterload reduction. Case complicated by ischemic cardiomyopathy, severe reduced ejection [id number]%, and RWMA of the LAD territory and lateral wall. Patient was transferred to [facility] and now s/p CABGx2 on 05/[address] Trevino. PMHx: as above PSHx: carpal tunnel, bicep reconstruction, R shoulder repair, appendectomy, facial reconstruction, R eye prosthesis SocHx: ppd for 20+ OR COURSE: Procedure/Surgeon: CABGx2 (ALVAREZ-LAD, SVG-OM1) with Dr. Trevino on 05/07 Frontliner/Anesthesia: Drs. Pitas/Tenbarge CPB time: 84 min Cross clamp time: 53 min Circ arrest time: n/a Echo Pre/Post: Pre- EF 35%, +PFO (L to R shunt); Post- EF 45%, +PFO Chest Tubes/Drains: R+L pleural, 2 mediastinal Temporary wires location/setting: None Fluids Crystalloid: 1400 Colloid: 0 Cellsaver: 400 Products: none EBL: 250 UOP: 200 Anesthesia Intubation: East mask, easy airway (MAC 4, grade I, 7.5 ETT) Intravenous Access: RIJ MAC w/ PAC, L brachial A-line, 3 PIVs Opioid dose/last administration: 1000 mcg fentanyl total NMB dose/last administration: 200 mg rocuronium total, last at 20:20 TOF/ reversal given: no Antibiotic time: Ancef 2g @ 20:40 Past Medical History: Diagnosis Date Anesthesia of skin 12/16/2020 Numbness and tingling Personal history of other diseases of the circulatory system 12/16/2020 History of hypertension Personal history of other diseases of the musculoskeletal system and connective tissue 12/16/2020 History of arthritis Unspecified visual loss 12/16/2020 Vision problems No past surgical history on file. No medications prior to admission. Patient has no known allergies. No family history on file. Review of Systems: Unable to obtain, pt intubated and sedated Scheduled Medications: acetaminophen, 650 mg, oral, q4h Or acetaminophen, 650 mg, rectal, q4h aspirin, 81 mg, oral, Once Or aspirin, 81 mg, nasogastric tube, Once Or aspirin, 150 mg, rectal, Once [START ON 05/08/2023] aspirin, 81 mg, oral, Daily Or [START ON 05/08/2023] aspirin, 81 mg, oral, Daily Or [START ON 05/08/2023] aspirin, 150 mg, rectal, Daily [START ON 05/08/2023] ceFAZolin, 2 g, intravenous, q8h [START ON 05/09/2023] clopidogrel, 75 mg, oral, Daily [MAR Hold] influenza, 0.5 mL, intramuscular, During hospitalization insulin lispro, 0-15 Units, subcutaneous, q4h [START ON 05/08/2023] pantoprazole, 40 mg, oral, Daily before breakfast Or [START ON 05/08/2023] pantoprazole, 40 mg, intravenous, Daily before breakfast [MAR Hold] perflutren protein A microsphere, 0.5 mL, intravenous, Once in imaging [START ON 05/08/2023] polyethylene glycol, 17 g, oral, Daily Continuous Medications: clevidipine, 1-16 mg/hr, Last Rate: Stopped (05/07/232229) EPINEPHrine, 0-2 mcg/kg/min lactated Ringer's, 50 mL/hr lactated Ringer's, 5 mL/hr, Last Rate: 5 mL/hr (05/07/232302) propofol, 0-50 mcg/kg/min, Last Rate: 50 mcg/kg/min (05/07/232299) PRN Medications: PRN medications: dextrose OR glucagon, HYDROmorphone, naloxone, oxyCODONE, oxygen Objective Vitals: Most Recent: Vitals: 05/07/23 2245 BP: Pulse: 77 Resp: 16 Temp: SpO2: 98% 24hr Min/Max: Temp Min: 36.1 C (97 F) Max: 36.7 C (98.1 F) Pulse Min: 75 Max: 95 BP Min: 119/83 Max: 171/101 Resp Min: 10 Max: 26 SpO2 Min: 91 % Max: 100 % I/O: I/O last 2 completed shifts: In: 321 (3.5 mL/kg) [I.V.:321 (3.5 mL/kg)] Out: 1180 (12.8 mL/kg) [Urine:1180 (0.5 mL/kg/hr)] Weight: 91.9 kg Hemodynamic parameters for last 24 hours: PAP: (22-25)/(-7-2) 25/2 Vent settings: Vent Mode: Volume control/assist control FiO2 (%): [50 %] 50 % S RR: [16] 16 S VT: [550 mL] 550 mL PEEP/CPAP (cm H2O): [0 cm H20-9 cm H20] 8 cm H20 MAP (cm H2O): [13] 13 LDA: CVC 05/07/23 Double lumen Right Internal jugular (Active) Placement Date/Time: 05/07/23 (c) 1109 Hand Hygiene Performed Prior to CVC Insertion: Yes Site Prep: Chlorhexidine Site Prep Agent has Completely Dried Before Insertion: Yes All 5 Sterile Barriers Used (Gloves, Gown, Cap, Mask, Large Sterile Lydia... Number of days: 0 Introducer 05/07/23 Internal jugular Right (Active) Placement Date/Time: 05/07/23 (c) 1545 Hand Hygiene Completed: Yes Location: Internal jugular Orientation: Right Placement Verified: Pressure tracing changes;Transesophageal echocardiogram Number of days: 0 Arterial Line 05/07/23 Left Brachial (Active) Placement Date/Time: 05/07/23 (c) 1530 Size: 20 G Orientation: Left Location: Brachial Securement Method: Transparent dressing Patient Tolerance: Tolerated well Number of days: 0 Intra Aortic Balloon Pump (Active) No placement date or time found. Insertion Site: Right femoral Sutured: Yes Verification by X-ray: Yes Number of days: Intra Aortic Balloon Pump (Active) Placement Date/Time: 05/07/23 1529 Number of days: 0 ETT 7.5 mm (Active) Placement Date/Time: 05/07/23 2100 Placed by External Staff?: Other (Comment) Single Lumen Tube Size: 7.5 mm Cuffed: Yes Location: Oral Number of days: 0 Urethral Catheter Coude 16 Fr. (Active) Placement Date/Time: 05/07/23 1615 Placed by: Nawaf Avery Hand Hygiene Completed: Yes Catheter Type: Coude Tube Size (Fr.): 16 Fr. Urine Returned: Yes Number of days: 0 Chest Tube 1 Left Pleural 28 Fr (Active) Placement Date/Time: 05/07/23 181 Placed by: Lula Tube Number: 1 Chest Tube Orientation: Left Chest Tube Location: Pleural Chest Tube Drain Tube Size (Fr): 28 Fr Number of days: 0 Chest Tube 1 Right Pleural 28 Fr (Active) Placement Date/Time: 05/07/232049 Placed by: sindhu Hand Hygiene Completed: Yes Tube Number: 1 Chest Tube Orientation: Right Chest Tube Location: Pleural Chest Tube Drain Tube Size (Fr): 28 Fr Chest Tube Drainage System: Suction Number of days: 0 Y Chest Tube 1 and 2 1 Anterior Mediastinal 28 Fr. 2 Posterior Mediastinal 28 Fr. (Active) Placement Date/Time: 05/07/232048 Placed by: Sindhu Hand Hygiene Completed: Yes Tube Number 1: 1 Chest Tube Orientation 1: Anterior Chest Tube Location 1: Mediastinal Size (Fr.) 1: 28 Fr. Number ofSutures Placed 1: 1 Tube Number 2: 2 Ches... Number of days: 0 Physical Exam: Physical Exam Vitals reviewed. Constitutional: Appearance: Normal appearance. Interventions: He is sedated and intubated. HENT: Head: Normocephalic and atraumatic. Mouth/Throat: Mouth: Mucous membranes are moist. Eyes: Pupils: Pupils are equal, round, and reactive to light. Cardiovascular: Rate and Rhythm: Normal rate and regular rhythm. Pulses: Normal pulses. Heart sounds: Normal heart sounds. Pulmonary: Effort: He is intubated. Breath sounds: Normal breath sounds. Comments: Intubated and mechanically ventilated Abdominal: Palpations: Abdomen is soft. Musculoskeletal: General: No swelling. Cervical back: Neck supple. Right lower leg: No edema. Left lower leg: No edema. Skin: General: Skin is warm and dry. Review of Systems: Unable to obtain, patient intubated and sedated Lab/Radiology/Diagnostic Review: Results for orders placed or performed during the hospital encounter of 05/03/23 (from the past 24 hour(s)) Type and Screen Result Value Ref Range ABO TYPE O Rh TYPE POS ANTIBODY SCREEN NEG Renal Function Panel Result Value Ref Range Glucose 96 74 - 99 mg/dL Sodium 144 136 - 145 mmol/L Potassium 4.9 3.5 - 5.3 mmol/L Chloride 106 98 - 107 mmol/L Bicarbonate 21 21 - 32 mmol/L Anion Gap 22 (H) 10 - 20 mmol/L Urea Nitrogen 14 6 - 23 mg/dL Creatinine 0.86 0.50 - 1.30 mg/dL eGFR >90 >60 mL/min/1.73m*2 Calcium 8.9 8.6 - 10.6 mg/dL Phosphorus 4.5 2.5 - 4.9 mg/dL Albumin 3.6 3.4 - 5.0 g/dL CBC and Auto Differential Result Value Ref Range WBC 7.8 4.4 - 11.3 x10*3/uL nRBC 0.0 0.0 - 0.0 /100 WBCs RBC 3.95 (L) 4.50 - 5.90 x10*6/uL Hemoglobin 12.2 (L) 13.5 - 17.5 g/dL Hematocrit 36.9 (L) 41.0 - 52.0 % MCV 93 80 - 100 fL MCH 30.9 26.0 - 34.0 pg MCHC 33.1 32.0 - 36.0 g/dL RDW 13.1 11.5 - 14.5 % Platelets 208 150 - 450 x10*3/uL MPV 11.7 (H) 7.5 - 11.5 fL Neutrophils % 62.1 40.0 - 80.0 % Immature Granulocytes %, Automated 0.3 0.0 - 0.9 % Lymphocytes % 17.7 13.0 - 44.0 % Monocytes % 14.0 2.0 - 10.0 % Eosinophils % 4.9 0.0 - 6.0 % Basophils % 1.0 0.0 - 2.0 % Neutrophils Absolute 4.85 1.20 - 7.70 x10*3/uL Immature Granulocytes Absolute, Automated 0.02 0.00 - 0.70 x10*3/uL Lymphocytes Absolute 1.38 1.20 - 4.80 x10*3/uL Monocytes Absolute 1.09 (H) 0.10 - 1.00 x10*3/uL Eosinophils Absolute 0.38 0.00 - 0.70 x10*3/uL Basophils Absolute 0.08 0.00 - 0.10 x10*3/uL Magnesium Result Value Ref Range Magnesium 2.20 1.60 - 2.40 mg/dL Heparin Assay Result Value Ref Range Heparin Unfractionated 0.3 See Comment Below for Therapeutic Ranges IU/mL POCT GLUCOSE Result Value Ref Range POCT Glucose 121 (H) 74 - 99 mg/dL Blood Gas Arterial, COOX Unsolicited Result Value Ref Range POCT pH, Arterial 7.42 7.38 - 7.42 pH POCT pCO2, Arterial 38 38 - 42 mm Hg POCT pO2, Arterial 75 (L) 85 - 95 mm Hg POCT SO2, Arterial 95 94 - 100 % POCT Oxy Hemoglobin, Arterial 93.6 (L) 94.0 - 98.0 % POCT Base Excess, Arterial 0.3 -2.0 - 3.0 mmol/L POCT HCO3 Calculated, Arterial 24.6 22.0 - 26.0 mmol/L POCT Hemoglobin, Arterial 14.8 13.5 - 17.5 g/dL POCT Carboxyhemoglobin, Arterial 1.4 % POCT Methemoglobin, Arterial 0.3 0.0 - 1.5 % POCT Deoxy Hemoglobin, Arterial 4.7 0.0 - 5.0 % Patient Temperature 37.0 degrees Celsius Prepare RBC: 4 Units Result Value Ref Range PRODUCT CODE S6046B70 Unit Number [id number] Unit ABO O Unit RH POS XM INTEP COMP Dispense Status XM Blood Expiration Date May 28, 2023 23:59 EDT PRODUCT BLOOD TYPE 5100 UNIT VOLUME 350 PRODUCT CODE [id number] Unit Number [id number] Unit ABO O Unit RH POS XM INTEP COMP Dispense Status XM Blood Expiration Date May 29, 2023 23:59 EDT PRODUCT BLOOD TYPE 5100 UNIT VOLUME 350 PRODUCT CODE [id number] Unit Number [id number] Unit ABO O Unit RH POS XM INTEP COMP Dispense Status XM Blood Expiration Date May 29, 2023 23:59 EDT PRODUCT BLOOD TYPE 5100 UNIT VOLUME 350 PRODUCT CODE [id number] Unit Number [id number] Unit ABO O Unit RH POS XM INTEP COMP Dispense Status XM Blood Expiration Date May 29, 2023 23:59 EDT PRODUCT BLOOD TYPE 5100 UNIT VOLUME 350 POCT GLUCOSE Result Value Ref Range POCT Glucose 120 (H) 74 - 99 mg/dL Blood Gas Arterial Full Panel Unsolicited Result Value Ref Range POCT pH, Arterial 7.40 7.38 - 7.42 pH POCT pCO2, Arterial 41 38 - 42 mm Hg POCT pO2, Arterial 126 (H) 85 - 95 mm Hg POCT SO2, Arterial 99 94 - 100 % POCT Oxy Hemoglobin, Arterial 97.4 94.0 - 98.0 % POCT Hematocrit Calculated, Arterial 37.0 (L) 41.0 - 52.0 % POCT Sodium, Arterial 136 136 - 145 mmol/L POCT Potassium, Arterial 4.0 3.5 - 5.3 mmol/L POCT Chloride, Arterial 106 98 - 107 mmol/L POCT Ionized Calcium, Arterial 1.11 1.10 - 1.33 mmol/L POCT Glucose, Arterial 117 (H) 74 - 99 mg/dL POCT Lactate, Arterial 0.7 0.4 - 2.0 mmol/L POCT Base Excess, Arterial 0.5 -2.0 - 3.0 mmol/L POCT HCO3 Calculated, Arterial 25.4 22.0 - 26.0 mmol/L POCT Hemoglobin, Arterial 12.4 (L) 13.5 - 17.5 g/dL POCT Anion Gap, Arterial 9 (L) 10 - 25 mmo/L Patient Temperature 37.0 degrees Celsius FiO2 100 % Coox Panel, Arterial Unsolicited Result Value Ref Range POCT Hemoglobin, Arterial 12.4 (L) 13.5 - 17.5 g/dL POCT Oxy Hemoglobin, Arterial 97.4 94.0 - 98.0 % POCT Carboxyhemoglobin, Arterial 0.7 % POCT Methemoglobin, Arterial 0.8 0.0 - 1.5 % POCT Deoxy Hemoglobin, Arterial 1.1 0.0 - 5.0 % Blood Gas Arterial Full Panel Unsolicited Result Value Ref Range POCT pH, Arterial 7.45 (H) 7.38 - 7.42 pH POCT pCO2, Arterial 37 (L) 38 - 42 mm Hg POCT pO2, Arterial 538 (H) 85 - 95 mm Hg POCT SO2, Arterial 100 94 - 100 % POCT Oxy Hemoglobin, Arterial 98.6 (H) 94.0 - 98.0 % POCT Hematocrit Calculated, Arterial 30.0 (L) 41.0 - 52.0 % POCT Sodium, Arterial 135 (L) 136 - 145 mmol/L POCT Potassium, Arterial 4.9 3.5 - 5.3 mmol/L POCT Chloride, Arterial 104 98 - 107 mmol/L POCT Ionized Calcium, Arterial 1.05 (L) 1.10 - 1.33 mmol/L POCT Glucose, Arterial 157 (H) 74 - 99 mg/dL POCT Lactate, Arterial 1.5 0.4 - 2.0 mmol/L POCT Base Excess, Arterial 1.7 -2.0 - 3.0 mmol/L POCT HCO3 Calculated, Arterial 25.7 22.0 - 26.0 mmol/L POCT Hemoglobin, Arterial 10.0 (L) 13.5 - 17.5 g/dL POCT Anion Gap, Arterial 10 10 - 25 mmo/L Patient Temperature 37.0 degrees Celsius FiO2 100 % Coox Panel, Arterial Unsolicited Result Value Ref Range POCT Hemoglobin, Arterial 10.0 (L) 13.5 - 17.5 g/dL POCT Oxy Hemoglobin, Arterial 98.6 (H) 94.0 - 98.0 % POCT Carboxyhemoglobin, Arterial 0.5 % POCT Methemoglobin, Arterial 0.6 0.0 - 1.5 % POCT Deoxy Hemoglobin, Arterial 0.3 0.0 - 5.0 % Blood Gas Arterial Full Panel Unsolicited Result Value Ref Range POCT pH, Arterial 7.38 7.38 - 7.42 pH POCT pCO2, Arterial 43 (H) 38 - 42 mm Hg POCT pO2, Arterial 105 (H) 85 - 95 mm Hg POCT SO2, Arterial 98 94 - 100 % POCT Oxy Hemoglobin, Arterial 96.9 94.0 - 98.0 % POCT Hematocrit Calculated, Arterial 29.0 (L) 41.0 - 52.0 % POCT Sodium, Arterial 136 136 - 145 mmol/L POCT Potassium, Arterial 5.5 (H) 3.5 - 5.3 mmol/L POCT Chloride, Arterial 106 98 - 107 mmol/L POCT Ionized Calcium, Arterial 1.30 1.10 - 1.33 mmol/L POCT Glucose, Arterial 152 (H) 74 - 99 mg/dL POCT Lactate, Arterial 2.3 (H) 0.4 - 2.0 mmol/L POCT Base Excess, Arterial 0.2 -2.0 - 3.0 mmol/L POCT HCO3 Calculated, Arterial 25.4 22.0 - 26.0 mmol/L POCT Hemoglobin, Arterial 9.5 (L) 13.5 - 17.5 g/dL POCT Anion Gap, Arterial 10 10 - 25 mmo/L Patient Temperature 37.0 degrees Celsius FiO2 100 % Coox Panel, Arterial Unsolicited Result Value Ref Range POCT Hemoglobin, Arterial 9.5 (L) 13.5 - 17.5 g/dL POCT Oxy Hemoglobin, Arterial 96.9 94.0 - 98.0 % POCT Carboxyhemoglobin, Arterial 0.6 % POCT Methemoglobin, Arterial 0.9 0.0 - 1.5 % POCT Deoxy Hemoglobin, Arterial 1.6 0.0 - 5.0 % Blood Gas Arterial Full Panel Unsolicited Result Value Ref Range POCT pH, Arterial 7.42 7.38 - 7.42 pH POCT pCO2, Arterial 36 (L) 38 - 42 mm Hg POCT pO2, Arterial 72 (L) 85 - 95 mm Hg POCT SO2, Arterial 94 94 - 100 % POCT Oxy Hemoglobin, Arterial 92.6 (L) 94.0 - 98.0 % POCT Hematocrit Calculated, Arterial 38.0 (L) 41.0 - 52.0 % POCT Sodium, Arterial 139 136 - 145 mmol/L POCT Potassium, Arterial 4.7 3.5 - 5.3 mmol/L POCT Chloride, Arterial 106 98 - 107 mmol/L POCT Ionized Calcium, Arterial 1.20 1.10 - 1.33 mmol/L POCT Glucose, Arterial 138 (H) 74 - 99 mg/dL POCT Lactate, Arterial 1.6 0.4 - 2.0 mmol/L POCT Base Excess, Arterial -0.7 -2.0 - 3.0 mmol/L POCT HCO3 Calculated, Arterial 23.4 22.0 - 26.0 mmol/L POCT Hemoglobin, Arterial 12.7 (L) 13.5 - 17.5 g/dL POCT Anion Gap, Arterial 14 10 - 25 mmo/L Patient Temperature 37.0 degrees Celsius Anesthesia Intraoperative Transesophageal Echocardiogram Result Date: 05/07/2023 [facility], [address] [place] [address] andFax TRANSESOPHAGEAL ECHOCARDIOGRAM REPORT Patient Name: MORGAN LATHAM Reading [id number] Cameron Rodas Physician: Study Date: 05/07/2023 Ordering [id number] MICHELET MEDELLIN Provider: MRN/PID: [id number] Fellow: Nurse: Date of /Age: 2 1965 Cyanide Case Hardener: years Gender: M Additional Staff: BSA: m2 Study Type: ANESTHESIA INTRAOPERATIVE SUNITA Diagnosis/ICD: 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 Wall motion is abnormal. The left ventricular cavity size is upper limits of normal. Left ventricular diastolic filling was not assessed. Left Atrium: The left atrium is normal in size. A patent foramen ovale is present. There is a normal sized left atrial appendage. Right Ventricle: The right ventricle is normal in size. There is normal right ventricular global systolic function. Right Atrium: The right atrium is normal in size. Aortic Valve: The aortic valve appears structurally normal. There is trivial aortic valve regurgitation. Mitral Valve: The mitral valve is normal in structure. There is no evidence of mitral valve regurgitation. Tricuspid Valve: The tricuspid valve is structurally normal. No evidenceof tricuspid regurgitation. Pulmonic Valve: The pulmonic valve is structurally normal. There is trace pulmonic valve regurgitation. Pericardium: There is no pericardial effusion noted. Aorta: The aortic root is normal. IABP. In comparison to the previous echocardiogram(s): Not performed on intraoperative study. CONCLUSIONS: 1. Left ventricular systolic function is moderately decreased with a 35% estimated ejection fraction. POST CARDIOPULMONARY BYPASS REPORT: Patient is on an epinephrine drip. LV function is mildly decreased from pre-pump exam. Global RV function is normal. ECMO cannulas are in place, with no obstruction to flow. EF 40-45%. QUANTITATIVE DATA SUMMARY: [id number] Cameron Rodas MDElectronically signed on 05/07/2023 at 10:18:19 PM Final XR chest 1 view Result Date: 05/07/2023 Interpreted By: Guillaume Jones, Jose Zaldivar STUDY: XR CHEST 1 VIEW; 05/07/2023 7:13 am INDICATION: Signs/Symptoms:eval for pt with baloon pump. COMPARISON: Chest radiograph and CT chest 05/05/2023 ACCESSION NUMBER(S): [id number] ORDERING CLINICIAN: ANDERSON MARTINS FINDINGS: AP radiograph of the chest was provided. IABP with radiopaque marker overlying the proximal descending thoracic aorta. CARDIOMEDIASTINAL SILHOUETTE: Cardiomediastinal silhouette is stable in size and configuration. LUNGS: Low lung volumes contributing to bronchovascular crowding. Relatively stable bilateral pulmonary interstitial markings. Linear bibasilar opacities favored to represent atelectasis. Trace right pleural effusion. No pneumothorax. ABDOMEN: No remarkable upper abdominal findings. BONES: No acute osseous changes. 1. No significant interval change in pulmonary interstitial edema and bibasilar atelectasis. 2. Question trace right pleural effusion. 3. Medical devices as described above. I personally reviewed theimages/study and I agree with the findings as stated. This study was interpreted at [place], [place]. MACRO: None Signed by: Guillaume Garcia 05/07/2023 7:46 AM Dictation workstation: [id number] Vascular US carotid artery duplex bilateral Result Date: 05/06/2023 [place] [id number] and Vascular Lab Report Carotid Artery Duplex Ultrasound Patient Name: MORGAN LATHAM Reading [id number] Dave Muñiz Physician: Study Date: 05/06/2023 Ordering [id number] CARMEN ROSADO Provider: MRN/PID: [id number] Technologist: Adin Sanabria RVT Technologist 2: Date of 1965 /Age: years Gender: M Admission Status: Inpatient Location [facility] Performed: Diagnosis/ICD: Encounter for other preprocedural examination-Z01.818; Other s pecified symptoms and signs involving the circulatory and respiratory systems- R09.89 CONCLUSIONS: Right Carotid: Findings are consistent with less than 50% stenosis of the right proximal internal carotid artery. The waveforms appear to have irregular shape due to pt. is being on a cardiac support device. Right external carotid artery appears patent with no evidence of stenosis. The right vertebral artery is patent with antegrade flow. No evidence of hemodynamically significant stenosis in the right subclavian artery. Left Carotid: Findings are consistent with less than 50% stenosis of the left proximal internal carotid artery. Left external carotid artery appears patent with no evidence of s tenosis. The left vertebral artery is patent with antegrade flow. No evidence of hemodynamically significant stenosis in the left subclavian artery. Imaging & Doppler Findings: Right Plaque Morph: The proximal right internal carotid artery demonstrates heterogenous and calcified plaque. The right carotid bulb demonstrates heterogenous and calcified plaque. Left Plaque Morph: The proximal leftinternal carotid artery demonstrates heterogenous and calcified plaque. The mid left common carotidartery demonstrates heterogenous plaque. Right Left PSV EDV PSV EDV 72 cm/s CCA P 92 cm/s 106 cm/s CCA D 62 cm/s 119 cm/s 31 cm/s ICA P 98 cm/s 47 cm/s 82 cm/s 14 cm/s ICA M 126 cm/s 19 cm/s 66 cm/s 13 cm/s ICA D 65 cm/s 14 cm/s 99 cm/s ECA 107 cm/s 35 cm/s 6 cm/s Vertebral 44 cm/s 17 cm/s 142 cm/sSubclavian 117 cm/s Right Left ICA/CCA Ratio 1.1 1.6 [id number] Dave Muñiz MD Final Vascular US lower extremity vein mapping bilateral Result Date: 05/06/2023 [place] [id number] and Vascular Lab Report Pre-op Vein Mapping Lower Patient Name: MORGAN LATHAM Reading [id number] Dave Muñiz Physician: Study Date: 05/06/2023 Ordering [id number] CARMEN ADANG Provider: MRN/PID: [id number] Technologist: Adin Sanabria T Technologist 2: Date of 1965 /Age: years Gender: M Admission Status: Inpatient Location [facility] Performed: Diagnosis/ICD: Encounter for other preprocedural examination-Z01.818 CONCLUSIONS: Right Lower Vein Mapping: Right lower extremity vein: The right great saphenous vein appears widely patent with no evidence of thrombosis or fibrosis. Left Lower Vein Mapping: Left lower extremity vein: The left great saphenous vein appears widely patent with no evidence of thrombosis or fibrosis. Imaging & Doppler Findings: Right Compress Thrombus Diam SFJ Yes None 5.9 mm Prox Thigh GSV Yes None 4.3 mm Mid Thigh GSV Yes None 2.9 mm Knee GSV Yes None 3.1 mm Prox Calf GSV Yes None 2.6 mm Mid Calf GSV Yes None 2.5 mm Dist Calf GSV Yes None 2.8 mm Left Compress Thrombus Diam SFJ Yes None 5.5 mm Prox Thigh GSV Yes None 4.3 mm Mid Thigh GSV Yes None 3.7 mm Knee GSV Yes None 2.9 mm Prox Calf GSV Yes None 2.7 mm Mid Calf GSV Yes None 2.9 mm Dist Calf GSV Yes None 3.0 mm [id number] Muñiz MD Final CT chest wo IV contrast Result Date: 05/05/2023 Interpreted By: Willie Reis and Meyers Emily STUDY: CT CHEST WO IV CONTRAST; 05/05/2023 10:37 am INDICATION: Signs/Symptoms:Evaluation of aorta for clamping prior to CABG. COMPARISON: None. ACCESSION NUMBER(S): [id number] ORDERING CLINICIAN: JUAN ZAMORA TECHNIQUE: Helical data acquisition of the chest was obtained without IV contrast material. Images were reformatted in axial, coronal, and sagittal planes. FINDINGS: Evaluation is limited secondary to artifact from the left arm being in the down position. LUNGS AND AIRWAYS: The trachea and central airways are patent. No endobronchial lesion. Trace bilateral pleural effusions with associated atelectasis. Streaky, linear opacities within the right lower lobe, which may represent scarring versus atelectasis. Area of ground-glass opacity in the medial left upper lobe on series 203, image 97 is nonspecific. No focal consolidation or pneumothorax. 7.5 mm solid nodule in the left lower lobe on series 203, image 221. Scattered calcified granulomas in the right lung. MEDIASTINUM AND JAIRO, LOWER NECK AND AXILLA: The visualized thyroid gland is within normal limits. No evidence of thoracic lymphadenopathy by CT criteria. Esophagus appearswithin normal limits as seen. HEART AND VESSELS: Conventional three-vessel aortic arch. The thoracic aorta is of normal course and caliber with scattered vascular calcifications. There is note of an intra- aortic balloon pump with radiopaque marker at the level of T4 within the proximal descending thoracic aorta. The IABP is inflated on current exam and extends inferiorly beyond the [id number].Main pulmonary artery and its branches are normal in caliber. Severe coronary artery calcifications. The study is not optimized for evaluation of coronary arteries. The cardiac chambers are not enlarged. Mild mitral annular calcifications. No evidence of pericardial effusion. UPPER ABDOMEN: Scattered colonic diverticula. CHEST WALL AND OSSEOUS STRUCTURES: There are no suspicious osseous lesions. Multilevel degenerative changes are present. Contour irregularity of the right clavicle may represent sequelae of remote trauma. Multiple old right-sided rib fractures. Likely nonunion of a minimally displaced right posterior 9th rib fracture. 1. Normal anatomy of the thoracic aorta with note of an inflated intra-aortic balloon pump beginning proximally at the T4 level and extending beyond the exdop-gr-lnmm. 2. Trace bilateral pleural effusions with associated atelectasis and streaky, linear opacities within the right lower lobe, likely representing scarring versus atelectasis. 3. Nonspecific ground-glass opacity in the left upper lobemay be secondary to atelectasis versus underlying infection or inflammation. 4. Incidental Finding:A solid non-calcified pulmonary nodule measuring 6-8 mm in the left lower lobe. (-YCF-) Instructions: Consider follow up non contrast chest CT at 6-12 months, then consider CT chest at 18-24 months. (Reinier Burrell et al., Guidelines for management of incidental pulmonary nodules detected on CTimages: From the Fleischner Society 2017, Radiology. 2017 Tien;284 (1):228-243.) [id number]. Severe coronary artery calcifications. I personally reviewed the images/study, and I agree with the findings as stated above. This study was interpreted at [place], [place]. MACRO: None Signed by: Willie Reis 05/05/2023 11:16 AM Dictation workstation: [id number] XR chest 1 view Result Date: 05/05/2023 Interpreted By: Willie Reis, STUDY: XR CHEST 1 VIEW; 05/05/2023 9:23 am INDICATION: Signs/Symptoms:IABP. COMPARISON: Exam dated 05/03/2020 ACCESSION NUMBER(S): [id number] ORDERING CLINICIAN: JUAN ZAMORA FINDINGS: AP radiograph of the chest was provided. Radiopaque marker of intra-aortic balloon pump projects over the AP window, just below the aortic knob. CARDIOMEDIASTINAL SILHOUETTE: Cardiomediastinal silhouette is stable in size and configuration. LUNGS: Stable increased bilateral interstitial markings. Linear opacities projecting over the right lower lung likely represent atelectasis. No evidence of pneumothorax. Blunting of the right costophrenic angle. Left costophrenic angle is grossly normal. ABDOMEN: No remarkable upper abdominal findings. BONES: No acute osseous changes. 1. Stable findings of pulmonary interstitial edema and basilar atelectasis. 2. Intra-aortic balloonpump with radiopaque marker projecting slightly below prior exam, now at the level of the AP window. MACRO: None Signed by: Willie Reis 05/05/2023 10:11 AM Dictation workstation: [id number] Transthoracic Echo (TTE) Complete Result Date: 05/04/2023 [facility], [address] [place] [address] and TRANSTHORACIC ECHOCARDIOGRAM REPORT Patient Name: MORGAN LATHAM Reading Physician: [id number] Nikos Gay MD Study Date: 05/04/2023 Ordering Provider: [id number] JOEROXANNA RAVEN MRN/PID: [id number] Fellow: Nurse: Date of 1965 Cyanide Case Hardener: Renate Higgins [facility] /Age: years Gender: M Additional Staff: Height: 172.00 Admit Date: 05/03/2023 Weight: 87.09 Admission Status: Inpatient - Routine BSA: 2.00 m2 Department [facility] Location: Blood Pressure: 124 /70 mmHg Study Type: TRANSTHORACIC ECHO (TTE) COMPLETE Diagnosis/ICD: Atherosclerotic heart disease of [place] coronary artery with unspecified angina pectoris-I25.119 Indication: Atherosclerotic Heart Disease of [place] Coronary Artery with Angina Pectoris Patient History: Pertinent History: Angina. Study Detail: The following Echo studies were performed: 2D, M-Mode, Doppler and color flow. Technically challenging study due to patient lying in supine position, prominent lung artifact and poor acoustic windows. The patient is on a balloon pump. Definity used as a contrast agent forendocardial border definition. Total contrast used for this procedure was 2.0 mL via IV push. PHYSICIAN INTERPRETATION: Left Ventricle: The left ventricular systolic function is moderately to severely decreased, with an estimated ejection fraction of 30-35%. There is global hypokinesis of the left ventricle with minor regional variations. The left ventricular cavity size is normal. Spectral Doppler shows an abnormal pattern of left ventricular diastolic filling. LV function is approximate giventechnically challenging study. The basal segments contract best. The apex and anterior wall and distal segments are hypokinetic. No obvious LV thrombus. Left Atrium: The left atrium is moderately dilated. Right Ventricle: The right ventricle is normal in size. There is normal right ventricular global systolic function. Right Atrium: The right atrium is normal in size. Aortic Valve: The aortic valve is probably trileaflet. There is mild aortic valve cusp calcification. There is trivial aortic valve regurgitation. The peak instantaneous gradient of the aortic valve is 6.7 mmHg. The mean gradient of the aortic valve is 3.0 mmHg. Mitral Valve: The mitral valve is mildly thickened. There is mildmitral annular calcification. There is trace mitral valve regurgitation. Tricuspid Valve: The tricuspid valve was not well visualized. Tricuspid regurgitation was not assessed. Pulmonic Valve: The pul klaudia valve is structurally normal. There is physiologic pulmonic valve regurgitation. Pericardium:There is no pericardial effusion noted. Aorta: The aortic root was not well visualized. The Ao Sinus is 3.50 cm. The Asc Ao is 3.50 cm. There is upper limits of normal dilatation of the ascending aorta. In comparison to the previous echocardiogram(s): There are no prior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 (CMS/HCC) Currently attempting to quit smoking documented in this encounter [facility] Work Phone: Evaluation note* Diagnosis Congestive heart failure, NYHA class 2 and ACC/AHA stage C (CMS/HCC)- Primary Hypervolemia, unspecified hypervolemia type 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 (CMS/HCC) Primary hypertension Unspecified essential hypertension Mixed hyperlipidemia BMI 31.0-31.9,adult Currently attempting to quit smoking documented in this encounter 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 Work Phone: Evaluation note* Diagnosis Onset Date Resolution Status Arthritis of left glenohumeral joint acute Pre-op exam acute Tear of left supraspinatus tendon acute [facility] Work Phone: Evaluation note* Diagnosis Chronic maxillary sinusitis- Primary Deviated nasal septum Nasal congestion Other diseases of nasal cavity and sinuses Chronic ethmoidal sinusitis documented in this encounter [facility] Work Phone: Evaluation note* Diagnosis Chronic pain of both knees Secondary osteoarthritis of multiple sites Osteoarthrosis involving, or with mention of more than one site, but not specified as generalized, multiple sites [facility] Diagnosis Left shoulder pain, unspecified chronicity [facility] Diagnosis MDD (major depressive disorder), recurrent episode, moderate (CMS/HCC) Lumbar spondylosis Lumbosacral spondylosis without myelopathy documented in this encounter [facility]* Diagnosis 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- Primary Cardiomyopathy, ischemic Other specified forms of chronic ischemic heart disease Primary hypertension Unspecified essential hypertension Mixed hyperlipidemia BMI 30.0-30.9,adult Shortness of breath Former smoker Personal history of tobacco use, presenting hazards to health Primary hypertension- Primary Unspecified essential hypertension 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 Cardiomyopathy, ischemic Other specified forms of chronic ischemic heart disease Coronary arteriography abnormal Other nonspecific abnormal cardiovascular system function study Acute systolic heart failure S/P CABG x 2 Postsurgical aortocoronary bypass status HFrEF (heart failure with reduced ejection fraction) Mixed hyperlipidemia BMI 30.0-30.9,adult Former smoker Personal history of tobacco use, presenting hazards to health Cardiomyopathy, ischemic- Primary Other specified forms of chronic ischemic heart disease 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 Primary hypertension Unspecified essential hypertension Mixed hyperlipidemia BMI 30.0-30.9,adult Former smoker Personal history of tobacco use, presenting hazards to health Edema of left upper arm- Primary BMI 33.0-33.9,adult Currently attempting to quit smoking Coronary arteriography abnormal Other nonspecific abnormal cardiovascular system function study Acute systolic heart failure Hypervolemia, unspecified hypervolemia type Edema of left upper arm- Primary Hypervolemia, unspecified hypervolemia type Congestive heart failure, NYHA class 2 and ACC/AHA stage C Currently attempting to quit smoking Congestive heart failure, NYHA class 2 and ACC/AHA stage C- Primary Hypervolemia, unspecified hypervolemia type 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 Work Phone: Evaluation note* Diagnosis Primary hypertension (CMS/HCC)- Primary Unspecified essential hypertension Ischemic cardiomyopathy (CMS/HCC) Other specified forms of chronic ischemic heart disease MDD (major depressive disorder), recurrent episode, moderate (CMS/HCC) Generalized anxiety disorder (CMS/HCC) Generalized anxiety disorder Lumbar spondylosis Lumbosacral spondylosis without myelopathy Gastroesophageal reflux disease without esophagitis Esophageal reflux Benign essential hypertension (CMS/HCC)- Primary Essential hypertension, benign MDD (major depressive disorder), recurrent episode, moderate (CMS/HCC) Generalized anxiety disorder (CMS/HCC) Generalized anxiety disorder Arthralgia of left hand Edema of left upper arm Ischemic cardiomyopathy (CMS/HCC) Other specified forms of chronic ischemic heart disease Benign essential hypertension (CMS/HCC)- Primary Essential hypertension, benign Recurrent depressive disorder, current episode mild (CMS/HCC) Major depressive disorder, recurrent episode, mild Generalized anxiety disorder (CMS/HCC) Generalized anxiety disorder Lumbar spondylosis Lumbosacral spondylosis without myelopathy Ischemic cardiomyopathy (CMS/HCC) Other specified forms of chronic ischemic heart disease Encounter for long-term current use of medication Benign essential hypertension (CMS/HCC)- Primary Essential hypertension, benign Recurrent depressive disorder, current episode mild (CMS/HCC) Major depressive disorder, recurrent episode, mild Generalized anxiety disorder (CMS/HCC) Generalized anxiety disorder Lumbar spondylosis Lumbosacral spondylosis without myelopathy Ischemic cardiomyopathy (CMS/HCC) Other specified forms of chronic ischemic heart disease Prediabetes Other abnormal glucose Encounter for long-term current use of medication Dyslipidemia (CMS/HCC) Other and unspecified hyperlipidemia Gastroesophageal reflux disease without esophagitis Esophageal reflux Obesity (BMI 30-39.9) Screening PSA (prostate specific antigen) Special screening for malignant neoplasm of prostate Colon cancer screening Special screening for malignant neoplasms, colon Lumbar spondylosis Lumbosacral spondylosis without myelopathy documented in this encounter [facility] Healthcare[facility]* Diagnosis Primary hypertension (CMS/HCC)- Primary Unspecified essential hypertension Ischemic cardiomyopathy (CMS/HCC) Other specified forms of chronic ischemic heart disease MDD (major depressive disorder), recurrent episode, moderate (CMS/HCC) Generalized anxiety disorder (CMS/HCC) Generalized anxiety disorder Lumbar spondylosis Lumbosacral spondylosis without myelopathy Gastroesophageal reflux disease without esophagitis Esophageal reflux Benign essential hypertension (CMS/HCC)- Primary Essential hypertension, benign MDD (major depressive disorder), recurrent episode, moderate (CMS/HCC) Generalized anxiety disorder (CMS/HCC) Generalized anxiety disorder Arthralgia of left hand Edema of left upper arm Ischemic cardiomyopathy (CMS/HCC) Other specified forms of chronic ischemic heart disease Benign essential hypertension (CMS/HCC)- Primary Essential hypertension, benign Recurrent depressive disorder, current episode mild (CMS/HCC) Major depressive disorder, recurrent episode, mild Generalized anxiety disorder (CMS/HCC) Generalized anxiety disorder Lumbar spondylosis Lumbosacral spondylosis without myelopathy Ischemic cardiomyopathy (CMS/HCC) Other specified forms of chronic ischemic heart disease Encounter for long-term current use of medication Benign essential hypertension (CMS/HCC)- Primary Essential hypertension, benign Recurrent depressive disorder, current episode mild (CMS/HCC) Major depressive disorder, recurrent episode, mild Generalized anxiety disorder (CMS/HCC) Generalized anxiety disorder Lumbar spondylosis Lumbosacral spondylosis without myelopathy Ischemic cardiomyopathy (CMS/HCC) Other specified forms of chronic ischemic heart disease Prediabetes Other abnormal glucose Encounter for long-term current use of medication Dyslipidemia (CMS/HCC) Other and unspecified hyperlipidemia Gastroesophageal reflux disease without esophagitis Esophageal reflux Obesity (BMI 30-39.9) Screening PSA (prostate specific antigen) Special screening for malignant neoplasm of prostate Colon cancer screening Special screening for malignant neoplasms, colon Preoperative clearance- Primary Unspecified pre-operative examination Primary osteoarthritis of left shoulder Benign essential hypertension (CMS/HCC) Essential hypertension, benign Coronary artery disease involving [place] coronary artery of [place] heart without angina pectoris (CMS/HCC) Dyshidrotic eczema documented in this encounter [facility]* Diagnosis 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 (CMS-HCC)- Primary Cardiomyopathy, ischemic Other specified forms of chronic ischemic heart disease Primary hypertension Unspecified essential hypertension Mixed hyperlipidemia BMI 30.0-30.9,adult Shortness of breath Former smoker Personal history of tobacco use, presenting hazards to health Primary hypertension- Primary Unspecified essential hypertension 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 (CMS-HCC) Cardiomyopathy, ischemic Other specified forms of chronic ischemic heart disease Coronary arteriography abnormal Other nonspecific abnormal cardiovascular system function study Acute systolic heart failure (Multi) Acute systolic heart failure S/P CABG x 2 Postsurgical aortocoronary bypass status HFrEF (heart failure with reduced ejection fraction) (Multi) Mixed hyperlipidemia BMI 30.0-30.9,adult Former smoker Personal history of tobacco use, presenting hazards to health Cardiomyopathy, ischemic- Primary Other specified forms of chronic ischemic heart disease 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 (CMS-HCC) Primary hypertension Unspecified essential hypertension Mixed hyperlipidemia BMI 30.0-30.9,adult Former smoker Personal history of tobacco use, presenting hazards to health Edema of left upper arm- Primary BMI 33.0-33.9,adult Currently attempting to quit smoking Coronary arteriography abnormal Other nonspecific abnormal cardiovascular system function study Acute systolic heart failure (Multi) Acute systolic heart failure Hypervolemia, unspecified hypervolemia type Edema of left upper arm- Primary Hypervolemia, unspecified hypervolemia type Congestive heart failure, NYHA class 2 and ACC/AHA stage C (Multi) Currently attempting to quit smoking Congestive heart failure, NYHA class 2 and ACC/AHA stage C (Multi)- Primary Hypervolemia, unspecified hypervolemia type 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 (CMS-HCC) Cardiomyopathy, ischemic Other specified forms of chronic ischemic heart disease Coronary arteriography abnormal Other nonspecific abnormal cardiovascular system function study Acute systolic heart failure (Multi) Acute systolic heart failure S/P CABG x 2 Postsurgical aortocoronary bypass status HFrEF (heart failure with reduced ejection fraction) (Multi) Mixed hyperlipidemia BMI 30.0-30.9,adult Former smoker Personal history of tobacco use, presenting hazards to health Cardiomyopathy, ischemic- Primary Other specified forms of chronic ischemic heart disease 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 (CMS-HCC) Primary hypertension Unspecified essential hypertension Mixed hyperlipidemia BMI 30.0-30.9,adult Former smoker Personal history of tobacco use, presenting hazards to health Edema of left upper arm- Primary BMI 33.0-33.9,adult Currently attempting to quit smoking Coronary arteriography abnormal Other nonspecific abnormal cardiovascular system function study Acute systolic heart failure (Multi) Acute systolic heart failure Hypervolemia, unspecified hypervolemia type Edema of left upper arm- Primary Hypervolemia, unspecified hypervolemia type Congestive heart failure, NYHA class 2 and ACC/AHA stage C (Multi) Currently attempting to quit smoking Congestive heart failure, NYHA class 2 and ACC/AHA stage C (Multi)- Primary Hypervolemia, unspecified hypervolemia type 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 Work Phone: Evaluation note* Diagnosis Lumbar spondylosis Lumbosacral spondylosis without myelopathy documented in this encounter [facility] HealthcareEvaluation note* Diagnosis Benign essential hypertension (CMS/HCC)- Primary Essential hypertension, benign Recurrent depressive disorder, current episode mild (CMS/HCC) Major depressive disorder, recurrent episode, mild Generalized anxiety disorder (CMS/HCC) Generalized anxiety disorder Lumbar spondylosis Lumbosacral spondylosis without myelopathy Ischemic cardiomyopathy (CMS/HCC) Other specified forms of chronic ischemic heart disease Prediabetes Other abnormal glucose Encounter for long-term current use of medication Dyslipidemia (CMS/HCC) Other and unspecified hyperlipidemia Gastroesophageal reflux disease without esophagitis Esophageal reflux Obesity (BMI 30-39.9) Screening PSA (prostate specific antigen) Special screening for malignant neoplasm of prostate Colon cancer screening Special screening for malignant neoplasms, colon documented in this encounter [facility] HealthcareEvaluation note* Diagnosis Primary hypertension (CMS/HCC)- Primary Unspecified essential hypertension Ischemic cardiomyopathy (CMS/HCC) Other specified forms of chronic ischemic heart disease MDD (major depressive disorder), recurrent episode, moderate (CMS/HCC) Generalized anxiety disorder (CMS/HCC) Generalized anxiety disorder Lumbar spondylosis Lumbosacral spondylosis without myelopathy Gastroesophageal reflux disease without esophagitis Esophageal reflux Benign essential hypertension (CMS/HCC)- Primary Essential hypertension, benign MDD (major depressive disorder), recurrent episode, moderate (CMS/HCC) Generalized anxiety disorder (CMS/HCC) Generalized anxiety disorder Arthralgia of left hand Edema of left upper arm Ischemic cardiomyopathy (CMS/HCC) Other specified forms of chronic ischemic heart disease Benign essential hypertension (CMS/HCC)- Primary Essential hypertension, benign Recurrent depressive disorder, current episode mild (CMS/HCC) Major depressive disorder, recurrent episode, mild Generalized anxiety disorder (CMS/HCC) Generalized anxiety disorder Lumbar spondylosis Lumbosacral spondylosis without myelopathy Ischemic cardiomyopathy (CMS/HCC) Other specified forms of chronic ischemic heart disease Encounter for long-term current use of medication Benign essential hypertension (CMS/HCC)- Primary Essential hypertension, benign Recurrent depressive disorder, current episode mild (CMS/HCC) Major depressive disorder, recurrent episode, mild Generalized anxiety disorder (CMS/HCC) Generalized anxiety disorder Lumbar spondylosis Lumbosacral spondylosis without myelopathy Ischemic cardiomyopathy (CMS/HCC) Other specified forms of chronic ischemic heart disease Prediabetes Other abnormal glucose Encounter for long-term current use of medication Dyslipidemia (CMS/HCC) Other and unspecified hyperlipidemia Gastroesophageal reflux disease without esophagitis Esophageal reflux Obesity (BMI 30-39.9) Screening PSA (prostate specific antigen) Special screening for malignant neoplasm of prostate Colon cancer screening Special screening for malignant neoplasms, colon Preoperative clearance- Primary Unspecified pre-operative examination Primary osteoarthritis of left shoulder Benign essential hypertension (CMS/HCC) Essential hypertension, benign Coronary artery disease involving [place] coronary artery of [place] heart without angina pectoris (CMS/HCC) Dyshidrotic eczema Lumbar spondylosis Lumbosacral spondylosis without myelopathy documented in this encounter [facility] HealthcareEvaluation note* Diagnosis 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- Primary Cardiomyopathy, ischemic Other specified forms of chronic ischemic heart disease Primary hypertension Unspecified essential hypertension Mixed hyperlipidemia BMI 30.0-30.9,adult Shortness of breath Former smoker Personal history of tobacco use, presenting hazards to health Primary hypertension- Primary Unspecified essential hypertension 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 Cardiomyopathy, ischemic Other specified forms of chronic ischemic heart disease Coronary arteriography abnormal Other nonspecific abnormal cardiovascular system function study Acute systolic heart failure S/P CABG x 2 Postsurgical aortocoronary bypass status HFrEF (heart failure with reduced ejection fraction) Mixed hyperlipidemia BMI 30.0-30.9,adult Former smoker Personal history of tobacco use, presenting hazards to health Cardiomyopathy, ischemic- Primary Other specified forms of chronic ischemic heart disease 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 Primary hypertension Unspecified essential hypertension Mixed hyperlipidemia BMI 30.0-30.9,adult Former smoker Personal history of tobacco use, presenting hazards to health Edema of left upper arm- Primary BMI 33.0-33.9,adult Currently attempting to quit smoking Coronary arteriography abnormal Other nonspecific abnormal cardiovascular system function study Acute systolic heart failure Hypervolemia, unspecified hypervolemia type Edema of left upper arm- Primary Hypervolemia, unspecified hypervolemia type Congestive heart failure, NYHA class 2 and ACC/AHA stage C Currently attempting to quit smoking Congestive heart failure, NYHA class 2 and ACC/AHA stage C- Primary Hypervolemia, unspecified hypervolemia type 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- Primary Cardiomyopathy, ischemic Other specified forms of chronic ischemic heart disease Primary hypertension Unspecified essential hypertension Mixed hyperlipidemia BMI 30.0-30.9,adult Shortness of breath Former smoker Personal history of tobacco use, presenting hazards to health Primary hypertension- Primary Unspecified essential hypertension 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 Cardiomyopathy, ischemic Other specified forms of chronic ischemic heart disease Coronary arteriography abnormal Other nonspecific abnormal cardiovascular system function study Acute systolic heart failure S/P CABG x 2 Postsurgical aortocoronary bypass status HFrEF (heart failure with reduced ejection fraction) Mixed hyperlipidemia BMI 30.0-30.9,adult Former smoker Personal history of tobacco use, presenting hazards to health Cardiomyopathy, ischemic- Primary Other specified forms of chronic ischemic heart disease 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 Primary hypertension Unspecified essential hypertension Mixed hyperlipidemia BMI 30.0-30.9,adult Former smoker Personal history of tobacco use, presenting hazards to health 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 History of PTCA Postsurgical percutaneous transluminal coronary angioplasty status ST elevation myocardial infarction (STEMI), unspecified artery (Multi) Congestive heart failure, NYHA class 2 and ACC/AHA stage C Cardiomyopathy, ischemic Other specified forms of chronic ischemic heart disease Primary hypertension Unspecified essential hypertension Mixed hyperlipidemia BMI 31.0-31.9,adult Current smoker documented in this encounter [facility] Work Phone: Evaluation note* Diagnosis Primary hypertension (CMS/HCC)- Primary Unspecified essential hypertension Ischemic cardiomyopathy (CMS/HCC) Other specified forms of chronic ischemic heart disease MDD (major depressive disorder), recurrent episode, moderate (CMS/HCC) Generalized anxiety disorder (CMS/HCC) Generalized anxiety disorder Lumbar spondylosis Lumbosacral spondylosis without myelopathy Gastroesophageal reflux disease without esophagitis Esophageal reflux Benign essential hypertension (CMS/HCC)- Primary Essential hypertension, benign MDD (major depressive disorder), recurrent episode, moderate (CMS/HCC) Generalized anxiety disorder (CMS/HCC) Generalized anxiety disorder Arthralgia of left hand Edema of left upper arm Ischemic cardiomyopathy (CMS/HCC) Other specified forms of chronic ischemic heart disease Benign essential hypertension (CMS/HCC)- Primary Essential hypertension, benign Recurrent depressive disorder, current episode mild (CMS/HCC) Major depressive disorder, recurrent episode, mild Generalized anxiety disorder (CMS/HCC) Generalized anxiety disorder Lumbar spondylosis Lumbosacral spondylosis without myelopathy Ischemic cardiomyopathy (CMS/HCC) Other specified forms of chronic ischemic heart disease Encounter for long-term current use of medication Benign essential hypertension (CMS/HCC)- Primary Essential hypertension, benign Recurrent depressive disorder, current episode mild (CMS/HCC) Major depressive disorder, recurrent episode, mild Generalized anxiety disorder (CMS/HCC) Generalized anxiety disorder Lumbar spondylosis Lumbosacral spondylosis without myelopathy Ischemic cardiomyopathy (CMS/HCC) Other specified forms of chronic ischemic heart disease Prediabetes Other abnormal glucose Encounter for long-term current use of medication Dyslipidemia (CMS/HCC) Other and unspecified hyperlipidemia Gastroesophageal reflux disease without esophagitis Esophageal reflux Obesity (BMI 30-39.9) Screening PSA (prostate specific antigen) Special screening for malignant neoplasm of prostate Colon cancer screening Special screening for malignant neoplasms, colon Preoperative clearance- Primary Unspecified pre-operative examination Primary osteoarthritis of left shoulder Benign essential hypertension (CMS/HCC) Essential hypertension, benign Coronary artery disease involving [place] coronary artery of [place] heart without angina pectoris (CMS/HCC) Dyshidrotic eczema Lumbar spondylosis Lumbosacral spondylosis without myelopathy documented in this encounter [facility] HealthcareEvaluation note* Diagnosis Primary hypertension (CMS/HCC)- Primary Unspecified essential hypertension Ischemic cardiomyopathy (CMS/HCC) Other specified forms of chronic ischemic heart disease MDD (major depressive disorder), recurrent episode, moderate (CMS/HCC) Generalized anxiety disorder (CMS/HCC) Generalized anxiety disorder Lumbar spondylosis Lumbosacral spondylosis without myelopathy Gastroesophageal reflux disease without esophagitis Esophageal reflux Benign essential hypertension (CMS/HCC)- Primary Essential hypertension, benign MDD (major depressive disorder), recurrent episode, moderate (CMS/HCC) Generalized anxiety disorder (CMS/HCC) Generalized anxiety disorder Arthralgia of left hand Edema of left upper arm Ischemic cardiomyopathy (CMS/HCC) Other specified forms of chronic ischemic heart disease Benign essential hypertension (CMS/HCC)- Primary Essential hypertension, benign Recurrent depressive disorder, current episode mild (CMS/HCC) Major depressive disorder, recurrent episode, mild Generalized anxiety disorder (CMS/HCC) Generalized anxiety disorder Lumbar spondylosis Lumbosacral spondylosis without myelopathy Ischemic cardiomyopathy (CMS/HCC) Other specified forms of chronic ischemic heart disease Encounter for long-term current use of medication Benign essential hypertension (CMS/HCC)- Primary Essential hypertension, benign Recurrent depressive disorder, current episode mild (CMS/HCC) Major depressive disorder, recurrent episode, mild Generalized anxiety disorder (CMS/HCC) Generalized anxiety disorder Lumbar spondylosis Lumbosacral spondylosis without myelopathy Ischemic cardiomyopathy (CMS/HCC) Other specified forms of chronic ischemic heart disease Prediabetes Other abnormal glucose Encounter for long-term current use of medication Dyslipidemia (CMS/HCC) Other and unspecified hyperlipidemia Gastroesophageal reflux disease without esophagitis Esophageal reflux Obesity (BMI 30-39.9) Screening PSA (prostate specific antigen) Special screening for malignant neoplasm of prostate Colon cancer screening Special screening for malignant neoplasms, colon Preoperative clearance- Primary Unspecified pre-operative examination Primary osteoarthritis of left shoulder Benign essential hypertension (CMS/HCC) Essential hypertension, benign Coronary artery disease involving [place] coronary artery of [place] heart without angina pectoris (CMS/HCC) Dyshidrotic eczema Lumbar spondylosis Lumbosacral spondylosis without myelopathy documented in this encounter [facility] HealthcareEvaluation note* Diagnosis Primary hypertension (CMS/HCC)- Primary Unspecified essential hypertension Ischemic cardiomyopathy (CMS/HCC) Other specified forms of chronic ischemic heart disease MDD (major depressive disorder), recurrent episode, moderate (CMS/HCC) Generalized anxiety disorder (CMS/HCC) Generalized anxiety disorder Lumbar spondylosis Lumbosacral spondylosis without myelopathy Gastroesophageal reflux disease without esophagitis Esophageal reflux Benign essential hypertension (CMS/HCC)- Primary Essential hypertension, benign MDD (major depressive disorder), recurrent episode, moderate (CMS/HCC) Generalized anxiety disorder (CMS/HCC) Generalized anxiety disorder Arthralgia of left hand Edema of left upper arm Ischemic cardiomyopathy (CMS/HCC) Other specified forms of chronic ischemic heart disease Benign essential hypertension (CMS/HCC)- Primary Essential hypertension, benign Recurrent depressive disorder, current episode mild (CMS/HCC) Major depressive disorder, recurrent episode, mild Generalized anxiety disorder (CMS/HCC) Generalized anxiety disorder Lumbar spondylosis Lumbosacral spondylosis without myelopathy Ischemic cardiomyopathy (CMS/HCC) Other specified forms of chronic ischemic heart disease Encounter for long-term current use of medication Benign essential hypertension (CMS/HCC)- Primary Essential hypertension, benign Recurrent depressive disorder, current episode mild (CMS/HCC) Major depressive disorder, recurrent episode, mild Generalized anxiety disorder (CMS/HCC) Generalized anxiety disorder Lumbar spondylosis Lumbosacral spondylosis without myelopathy Ischemic cardiomyopathy (CMS/HCC) Other specified forms of chronic ischemic heart disease Prediabetes Other abnormal glucose Encounter for long-term current use of medication Dyslipidemia (CMS/HCC) Other and unspecified hyperlipidemia Gastroesophageal reflux disease without esophagitis Esophageal reflux Obesity (BMI 30-39.9) Screening PSA (prostate specific antigen) Special screening for malignant neoplasm of prostate Colon cancer screening Special screening for malignant neoplasms, colon Preoperative clearance- Primary Unspecified pre-operative examination Primary osteoarthritis of left shoulder Benign essential hypertension (CMS/HCC) Essential hypertension, benign Coronary artery disease involving [place] coronary artery of [place] heart without angina pectoris (CMS/HCC) Dyshidrotic eczema Chronic HFrEF (heart failure with reduced ejection fraction) (CMS/HCC)- Primary Pulmonary nodules Other diseases of lung, not elsewhere classified Benign essential hypertension (CMS/HCC) Essential hypertension, benign documented in this encounter [facility] HealthcareEvaluation note* Diagnosis 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- Primary Cardiomyopathy, ischemic Other specified forms of chronic ischemic heart disease Primary hypertension Unspecified essential hypertension Mixed hyperlipidemia BMI 30.0-30.9,adult Shortness of breath Former smoker Personal history of tobacco use, presenting hazards to health Primary hypertension- Primary Unspecified essential hypertension 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 Cardiomyopathy, ischemic Other specified forms of chronic ischemic heart disease Coronary arteriography abnormal Other nonspecific abnormal cardiovascular system function study Acute systolic heart failure S/P CABG x 2 Postsurgical aortocoronary bypass status HFrEF (heart failure with reduced ejection fraction) Mixed hyperlipidemia BMI 30.0-30.9,adult Former smoker Personal history of tobacco use, presenting hazards to health Cardiomyopathy, ischemic- Primary Other specified forms of chronic ischemic heart disease 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 Primary hypertension Unspecified essential hypertension Mixed hyperlipidemia BMI 30.0-30.9,adult Former smoker Personal history of tobacco use, presenting hazards to health 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- Primary Cardiomyopathy, ischemic Other specified forms of chronic ischemic heart disease Primary hypertension Unspecified essential hypertension Mixed hyperlipidemia BMI 31.0-31.9,adult Current smoker documented in this encounter 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- Primary Cardiomyopathy, ischemic Other specified forms of chronic ischemic heart disease Primary hypertension Unspecified essential hypertension Mixed hyperlipidemia BMI 30.0-30.9,adult Shortness of breath Former smoker Personal history of tobacco use, presenting hazards to health Primary hypertension- Primary Unspecified essential hypertension 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 Cardiomyopathy, ischemic Other specified forms of chronic ischemic heart disease Coronary arteriography abnormal Other nonspecific abnormal cardiovascular system function study Acute systolic heart failure S/P CABG x 2 Postsurgical aortocoronary bypass status HFrEF (heart failure with reduced ejection fraction) Mixed hyperlipidemia BMI 30.0-30.9,adult Former smoker Personal history of tobacco use, presenting hazards to health Cardiomyopathy, ischemic- Primary Other specified forms of chronic ischemic heart disease 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 Primary hypertension Unspecified essential hypertension Mixed hyperlipidemia BMI 30.0-30.9,adult Former smoker Personal history of tobacco use, presenting hazards to health Chronic maxillary sinusitis- Primary Nasal crusting Chronic rhinitis Nasal congestion Other diseases of nasal cavity and sinuses 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- Primary Cardiomyopathy, ischemic Other specified forms of chronic ischemic heart disease Primary hypertension Unspecified essential hypertension Mixed hyperlipidemia BMI 31.0-31.9,adult Current smoker documented in this encounter [facility] Work Phone: Evaluation note* Diagnosis Primary hypertension- Primary Unspecified essential hypertension Ischemic cardiomyopathy Other specified forms of chronic ischemic heart disease MDD (major depressive disorder), recurrent episode, moderate (HCC) Generalized anxiety disorder Generalized anxiety disorder Lumbar spondylosis Lumbosacral spondylosis without myelopathy Gastroesophageal reflux disease without esophagitis Esophageal reflux Benign essential hypertension- Primary Essential hypertension, benign MDD (major depressive disorder), recurrent episode, moderate (HCC) Generalized anxiety disorder Generalized anxiety disorder Arthralgia of left hand Edema of left upper arm Ischemic cardiomyopathy Other specified forms of chronic ischemic heart disease Benign essential hypertension- Primary Essential hypertension, benign Recurrent depressive disorder, current episode mild Major depressive disorder, recurrent episode, mild Generalized anxiety disorder Generalized anxiety disorder Lumbar spondylosis Lumbosacral spondylosis without myelopathy Ischemic cardiomyopathy Other specified forms of chronic ischemic heart disease Encounter for long-term current use of medication Benign essential hypertension- Primary Essential hypertension, benign Recurrent depressive disorder, current episode mild Major depressive disorder, recurrent episode, mild Generalized anxiety disorder Generalized anxiety disorder Lumbar spondylosis Lumbosacral spondylosis without myelopathy Ischemic cardiomyopathy Other specified forms of chronic ischemic heart disease Prediabetes Other abnormal glucose Encounter for long-term current use of medication Dyslipidemia Other and unspecified hyperlipidemia Gastroesophageal reflux disease without esophagitis Esophageal reflux Obesity (BMI 30-39.9) Screening PSA (prostate specific antigen) Special screening for malignant neoplasm of prostate Colon cancer screening Special screening for malignant neoplasms, colon Preoperative clearance- Primary Unspecified pre-operative examination Primary osteoarthritis of left shoulder Benign essential hypertension Essential hypertension, benign Coronary artery disease involving [place] coronary artery of [place] heart without angina pectoris Dyshidrotic eczema Chronic HFrEF (heart failure with reduced ejection fraction) (HCC)- Primary Pulmonary nodules Other diseases of lung, not elsewhere classified Benign essential hypertension Essential hypertension, benign Lumbar spondylosis Lumbosacral spondylosis without myelopathy documented in this encounter [facility]* Diagnosis Primary hypertension- Primary Unspecified essential hypertension Ischemic cardiomyopathy Other specified forms of chronic ischemic heart disease MDD (major depressive disorder), recurrent episode, moderate (HCC) Generalized anxiety disorder Generalized anxiety disorder Lumbar spondylosis Lumbosacral spondylosis without myelopathy Gastroesophageal reflux disease without esophagitis Esophageal reflux Benign essential hypertension- Primary Essential hypertension, benign MDD (major depressive disorder), recurrent episode, moderate (HCC) Generalized anxiety disorder Generalized anxiety disorder Arthralgia of left hand Edema of left upper arm Ischemic cardiomyopathy Other specified forms of chronic ischemic heart disease Benign essential hypertension- Primary Essential hypertension, benign Recurrent depressive disorder, current episode mild Major depressive disorder, recurrent episode, mild Generalized anxiety disorder Generalized anxiety disorder Lumbar spondylosis Lumbosacral spondylosis without myelopathy Ischemic cardiomyopathy Other specified forms of chronic ischemic heart disease Encounter for long-term current use of medication Benign essential hypertension- Primary Essential hypertension, benign Recurrent depressive disorder, current episode mild Major depressive disorder, recurrent episode, mild Generalized anxiety disorder Generalized anxiety disorder Lumbar spondylosis Lumbosacral spondylosis without myelopathy Ischemic cardiomyopathy Other specified forms of chronic ischemic heart disease Prediabetes Other abnormal glucose Encounter for long-term current use of medication Dyslipidemia Other and unspecified hyperlipidemia Gastroesophageal reflux disease without esophagitis Esophageal reflux Obesity (BMI 30-39.9) Screening PSA (prostate specific antigen) Special screening for malignant neoplasm of prostate Colon cancer screening Special screening for malignant neoplasms, colon Preoperative clearance- Primary Unspecified pre-operative examination Primary osteoarthritis of left shoulder Benign essential hypertension Essential hypertension, benign Coronary artery disease involving [place] coronary artery of [place] heart without angina pectoris Dyshidrotic eczema Chronic HFrEF (heart failure with reduced ejection fraction) (HCC)- Primary Pulmonary nodules Other diseases of lung, not elsewhere classified Benign essential hypertension Essential hypertension, benign Acute on chronic HFrEF (heart failure with reduced ejection fraction) (HCC)- Primary documented in this encounter [facility]* Diagnosis 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- Primary Cardiomyopathy, ischemic Other specified forms of chronic ischemic heart disease Primary hypertension Unspecified essential hypertension Mixed hyperlipidemia BMI 30.0-30.9,adult Shortness of breath Former smoker Personal history of tobacco use, presenting hazards to health Primary hypertension- Primary Unspecified essential hypertension 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 Cardiomyopathy, ischemic Other specified forms of chronic ischemic heart disease Coronary arteriography abnormal Other nonspecific abnormal cardiovascular system function study Acute systolic heart failure S/P CABG x 2 Postsurgical aortocoronary bypass status HFrEF (heart failure with reduced ejection fraction) Mixed hyperlipidemia BMI 30.0-30.9,adult Former smoker Personal history of tobacco use, presenting hazards to health Cardiomyopathy, ischemic- Primary Other specified forms of chronic ischemic heart disease 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 Primary hypertension Unspecified essential hypertension Mixed hyperlipidemia BMI 30.0-30.9,adult Former smoker Personal history of tobacco use, presenting hazards to health 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- Primary Cardiomyopathy, ischemic Other specified forms of chronic ischemic heart disease Primary hypertension Unspecified essential hypertension Mixed hyperlipidemia BMI 31.0-31.9,adult Current smoker 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 Cardiomyopathy, ischemic Other specified forms of chronic ischemic heart disease Primary hypertension Unspecified essential hypertension Mixed hyperlipidemia documented in this encounter [facility] Work Phone: Evaluation note* Diagnosis Primary hypertension- Primary Unspecified essential hypertension Ischemic cardiomyopathy Other specified forms of chronic ischemic heart disease MDD (major depressive disorder), recurrent episode, moderate (HCC) Generalized anxiety disorder Generalized anxiety disorder Lumbar spondylosis Lumbosacral spondylosis without myelopathy Gastroesophageal reflux disease without esophagitis Esophageal reflux Benign essential hypertension- Primary Essential hypertension, benign MDD (major depressive disorder), recurrent episode, moderate (HCC) Generalized anxiety disorder Generalized anxiety disorder Arthralgia of left hand Edema of left upper arm Ischemic cardiomyopathy Other specified forms of chronic ischemic heart disease Benign essential hypertension- Primary Essential hypertension, benign Recurrent depressive disorder, current episode mild Major depressive disorder, recurrent episode, mild Generalized anxiety disorder Generalized anxiety disorder Lumbar spondylosis Lumbosacral spondylosis without myelopathy Ischemic cardiomyopathy Other specified forms of chronic ischemic heart disease Encounter for long-term current use of medication Benign essential hypertension- Primary Essential hypertension, benign Recurrent depressive disorder, current episode mild Major depressive disorder, recurrent episode, mild Generalized anxiety disorder Generalized anxiety disorder Lumbar spondylosis Lumbosacral spondylosis without myelopathy Ischemic cardiomyopathy Other specified forms of chronic ischemic heart disease Prediabetes Other abnormal glucose Encounter for long-term current use of medication Dyslipidemia Other and unspecified hyperlipidemia Gastroesophageal reflux disease without esophagitis Esophageal reflux Obesity (BMI 30-39.9) Screening PSA (prostate specific antigen) Special screening for malignant neoplasm of prostate Colon cancer screening Special screening for malignant neoplasms, colon Preoperative clearance- Primary Unspecified pre-operative examination Primary osteoarthritis of left shoulder Benign essential hypertension Essential hypertension, benign Coronary artery disease involving [place] coronary artery of [place] heart without angina pectoris Dyshidrotic eczema Chronic HFrEF (heart failure with reduced ejection fraction) (HCC)- Primary Pulmonary nodules Other diseases of lung, not elsewhere classified Benign essential hypertension Essential hypertension, benign Acute on chronic HFrEF (heart failure with reduced ejection fraction) (HCC)- Primary Lumbar spondylosis Lumbosacral spondylosis without myelopathy documented in this encounter [facility] note* Diagnosis 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- Primary Cardiomyopathy, ischemic Other specified forms of chronic ischemic heart disease Primary hypertension Unspecified essential hypertension Mixed hyperlipidemia BMI 30.0-30.9,adult Shortness of breath Former smoker Personal history of tobacco use, presenting hazards to health Primary hypertension- Primary Unspecified essential hypertension 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 Cardiomyopathy, ischemic Other specified forms of chronic ischemic heart disease Coronary arteriography abnormal Other nonspecific abnormal cardiovascular system function study Acute systolic heart failure S/P CABG x 2 Postsurgical aortocoronary bypass status HFrEF (heart failure with reduced ejection fraction) Mixed hyperlipidemia BMI 30.0-30.9,adult Former smoker Personal history of tobacco use, presenting hazards to health Cardiomyopathy, ischemic- Primary Other specified forms of chronic ischemic heart disease 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 Primary hypertension Unspecified essential hypertension Mixed hyperlipidemia BMI 30.0-30.9,adult Former smoker Personal history of tobacco use, presenting hazards to health 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- Primary Cardiomyopathy, ischemic Other specified forms of chronic ischemic heart disease Primary hypertension Unspecified essential hypertension Mixed hyperlipidemia BMI 31.0-31.9,adult Current smoker Cardiomyopathy, ischemic- Primary Other specified forms of chronic ischemic heart disease 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 Mixed hyperlipidemia Primary hypertension Unspecified essential hypertension BMI 31.0-31.9,adult Current smoker Shortness of breath documented in this encounter [facility] Work Phone: Evaluation note* Diagnosis Primary hypertension- Primary Unspecified essential hypertension Ischemic cardiomyopathy Other specified forms of chronic ischemic heart disease MDD (major depressive disorder), recurrent episode, moderate (HCC) Generalized anxiety disorder Generalized anxiety disorder Lumbar spondylosis Lumbosacral spondylosis without myelopathy Gastroesophageal reflux disease without esophagitis Esophageal reflux Benign essential hypertension- Primary Essential hypertension, benign MDD (major depressive disorder), recurrent episode, moderate (HCC) Generalized anxiety disorder Generalized anxiety disorder Arthralgia of left hand Edema of left upper arm Ischemic cardiomyopathy Other specified forms of chronic ischemic heart disease Benign essential hypertension- Primary Essential hypertension, benign Recurrent depressive disorder, current episode mild Major depressive disorder, recurrent episode, mild Generalized anxiety disorder Generalized anxiety disorder Lumbar spondylosis Lumbosacral spondylosis without myelopathy Ischemic cardiomyopathy Other specified forms of chronic ischemic heart disease Encounter for long-term current use of medication Benign essential hypertension- Primary Essential hypertension, benign Recurrent depressive disorder, current episode mild Major depressive disorder, recurrent episode, mild Generalized anxiety disorder Generalized anxiety disorder Lumbar spondylosis Lumbosacral spondylosis without myelopathy Ischemic cardiomyopathy Other specified forms of chronic ischemic heart disease Prediabetes Other abnormal glucose Encounter for long-term current use of medication Dyslipidemia Other and unspecified hyperlipidemia Gastroesophageal reflux disease without esophagitis Esophageal reflux Obesity (BMI 30-39.9) Screening PSA (prostate specific antigen) Special screening for malignant neoplasm of prostate Colon cancer screening Special screening for malignant neoplasms, colon Preoperative clearance- Primary Unspecified pre-operative examination Primary osteoarthritis of left shoulder Benign essential hypertension Essential hypertension, benign Coronary artery disease involving [place] coronary artery of [place] heart without angina pectoris Dyshidrotic eczema Chronic HFrEF (heart failure with reduced ejection fraction) (HCC)- Primary Pulmonary nodules Other diseases of lung, not elsewhere classified Benign essential hypertension Essential hypertension, benign Benign essential hypertension- Primary Essential hypertension, benign Chronic HFrEF (heart failure with reduced ejection fraction) (HCC) Coronary artery disease involving [place] coronary artery of [place] heart without angina pectoris Lumbar spondylosis Lumbosacral spondylosis without myelopathy Recurrent depressive disorder, current episode mild Major depressive disorder, recurrent episode, mild Generalized anxiety disorder Generalized anxiety disorder Actinic keratosis documented in this encounter [facility]* Diagnosis 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- Primary Cardiomyopathy, ischemic Other specified forms of chronic ischemic heart disease Primary hypertension Unspecified essential hypertension Mixed hyperlipidemia BMI 30.0-30.9,adult Shortness of breath Former smoker Personal history of tobacco use, presenting hazards to health Primary hypertension- Primary Unspecified essential hypertension 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 Cardiomyopathy, ischemic Other specified forms of chronic ischemic heart disease Coronary arteriography abnormal Other nonspecific abnormal cardiovascular system function study Acute systolic heart failure S/P CABG x 2 Postsurgical aortocoronary bypass status HFrEF (heart failure with reduced ejection fraction) Mixed hyperlipidemia BMI 30.0-30.9,adult Former smoker Personal history of tobacco use, presenting hazards to health Cardiomyopathy, ischemic- Primary Other specified forms of chronic ischemic heart disease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 Expiration Date V isits Requested Visits Authorized [id number] Closed Auto-Generate d Referral 08/17/2022 09/16/2023 1 1 [facility] for referral (narrative)* Diagnostic Procedure Only (Routine) - Closed Specialty Diagnoses / Procedures [facility] Referred To Contact XR IMAGING Diagnoses Chronic pain of both knees Procedures XR KNEE GENERAL 4V AP BOTH/PA BOTH/LAT/MERC BILATERAL RADIOLOGIC EXAM KNEE COMPLETE 4/MORE VIEWS Mohini Hook MD [address] [place] [address] [place] [address] Referral ID Status Reason Start Date Expiration Date V isits Requested Visits Authorized [id number] Closed Auto-Generate d Referral 04/01/2023 04/30/2024 1 1 [facility] for referral (narrative)* Consultation (Routine) - Authorized Specialty Diagnoses / Procedures [facility] Referred To Contact Cardiac Rehabilitation Diagnoses ST elevation myocardial infarction (STEMI), unspecified artery (CMS/HCC) S/P CABG x 2 Alyssa Quick DO [address] [place] [address], [address] [address] Referral ID Status Reason Start Date Expiration Date Visits Requested Visits Authorized [id number] Authorized Specialty Services Required 06/17/2024 1 1 * Consultation (Routine) - Authorized Specialty Diagnoses / Procedures Referred By [facility] Referred To Contact Cardiology Diagnoses ST elevation myocardial infarction (STEMI), unspecified artery (CMS/HCC) 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, unspecified whether little shell tribe or transplanted heart (CMS/HCC) Hypertension, unspecified type Procedures Follow Up In Cardiology Alyssa Quick DO [address] [facility] [address], [address] [address] Odilia Ernandez, PRANAV-JOHNATHON [address] [facility] [address], [address] [address] Referral ID Status Reason Start Date Expiration Date V isits Requested Visits Authorized [id number] Authorized 06/18/2023 06/17/2024 1 1 * CV Imaging (Routine) - Pending Review Specialty Diagnoses / Procedures Referred By Ana t Referred To Contact Cardiology Diagnoses S/P CABG x 2 HFrEF (heart failure with reduced ejection fraction) (CMS/HCC) Procedures Transthoracic Echo (TTE) Complete [place] ECHO TRANSTHORC R-T 2D W/WO M-MODE REC F-UP/LMTD W[place] DOP ECHOCARD COLOR FLOW VELOCITY MAPPING [place] DOP ECHOCARD PULSE WAVE W/SPECTRAL F-UP/LMTD STD Alyssa Quick DO [address] [facility], [address] [place] [address] Referral ID Status Reason Start Date Expiration Date Visits Requested Visits Authorized [id number] Pending Review Perform Procedure 06/17/2024 1 1 * Medications - Pending Review Specialty Diagnoses / Procedures Referred By Ana t Referred To Contact Diagnoses Acute systolic heart failure (CMS/HCC) Alyssa Quick DO [address] [facility] [address], [address] [place] [address] Referral ID Status Reason Start Date Expiration Date V isits Requested Visits Authorized [id number] Pending Review 06/19/2023 06/18/[address] [facility] Work Phone: Reason for referral (narrative)* Consultation (Routine) - Authorized Specialty Diagnoses / Procedures Referred By Ana t Referred To Contact Cardiology Diagnoses 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 (CMS/HCC) Cardiomyopathy, ischemic Procedures Follow Up In Cardiology Odilia Ernandez, 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 [address] [facility], [address] [place] [address] Referral ID Status Reason Start Date Expiration Date V isits Requested Visits Authorized [id number] Authorized 07/02/2023 07/01/2024 1 1 * PFT (Routine) - Pending Review Specialty Diagnoses / Procedures Referred By Contac t Referred To Contact Diagnoses Shortness of breath Former smoker Procedures Pulmonary function test Odilia Ernandez APRN-CNP [address] [facility] [address], [address] [place] [address] Referral ID Status Reason Start Date Expiration Date V isits Requested Visits Authorized [id number] Pending Review 07/02/2023 07/01/2024 1 1 * Medications - Pending Review Specialty Diagnoses / Procedures Referred By Contac t Referred To Contact Diagnoses Cardiomyopathy, ischemic Odilia Ernandez APRN-CNP [address] [facility] [address], [address] [place] [address] Referral ID Status Reason Start Date Expiration Date V isits Requested Visits Authorized [id number] Pending Review 07/03/2023 07/02/[address] [facility] Work Phone: Reason for referral (narrative)* Consultation (Routine) - Authorized Specialty Diagnoses / Procedures Referred By Contac t Referred To Contact Cardiology Diagnoses Hypervolemia, unspecified hypervolemia type Procedures Follow Up In Cardiology Odilia Ernandez APRN-CNP [address] [facility] [address], [address] [place] [address] Referral ID Status Reason Start Date Expiration Date V isits Requested Visits Authorized [id number] Authorized 10/15/2023 10/14/2024 1 1 * Imaging (Routine) - Pending Review Specialty Diagnoses / Procedures Referred By Contac t Referred To Contact Cardiology Diagnoses Edema of left upper arm Procedures Vascular US upper extremity venous duplex left Odilia Ernandez APRN-CNP [address] [facility] [address], [address] [address] Referral ID Status Reason Start Date Expiration Date Visits Requested Visits Authorized [id number] Pending Review Perform Procedure 10/15/2023 10/14/[address] [facility] Work Phone: [facility] for referral (narrative)* Consultation (Routine) - Authorized Specialty Diagnoses / Procedures Referred By Contac t Referred To Contact Cardiology Diagnoses Hypervolemia, unspecified hypervolemia type Procedures Follow Up In Cardiology Odilia Ernandez APRN-CNP [address] [facility] [address], [address] [address] Referral ID Status Reason Start Date Expiration Date V isits Requested Visits Authorized [id number] Authorized 10/23/2023 10/22/2024 1 1 [facility] Work Phone: reason for referral (narrative)* Consultation (Routine) - Authorized Specialty Diagnoses / Procedures Referred By Contac t Referred To Contact Cardiology Diagnoses Congestive heart failure, NYHA class 2 and ACC/AHA stage C (CMS/HCC) Procedures Follow Up In Cardiology Odilia Ernandez APRN-CNP [address] [facility] [address], [address] [address] Referral ID Status Reason Start Date Expiration Date V isits Requested Visits Authorized [id number] Authorized 11/13/2023 11/12/2024 1 1 [facility] Work Phone: [facility] for referral (narrative)* Consultation (Routine) - Authorized Specialty Diagnoses / Procedures Referred By Contac t Referred To Contact Cardiology Diagnoses 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 (CMS-HCC) Procedures Follow Up In Cardiology Alyssa Quick DO [address] [facility] [address], [address] [place] [address] Alyssa Quick, [address] [facility] [address], [address] [place] [address] Referral ID Status Reason Start Date Expiration Date V isits Requested Visits Authorized [id number] Authorized 12/03/2023 12/02/[address] [facility] Work Phone: Reason for referral (narrative)* Diagnostic Procedure Only (Routine) - Closed Specialty Diagnoses / Procedures Referred By Contac t Referred To Contact XR IMAGING Diagnoses Left shoulder pain, unspecified chronicity Procedures XR SHOULDER ORTHO 4V AP/TRUE AP/LAT/OUTLET LEFT RADEX SHOULDER COMPLETE MINIMUM 2 VIEWS Zain Matthew MD [address] [place] [address] [place] [address] Referral ID Status Reason Start Date Expiration Date V isits Requested Visits Authorized [id number] Closed Auto-Generate d Referral 12/25/2022 01/24/2024 1 1 [facility] for referral (narrative)* Consultation (Routine) - Pending Review Specialty Diagnoses / Procedures Referred By Contac t Referred To Contact General Surgery Diagnoses Colon cancer screening Procedures [place] OFFICE/OUTPATIENT [facility] 60 MINUTES Juve Mcpherson MD [address] [place] [address] Dayton Muñiz DO [address] [place] [address] Referral ID Status Reason Start Date Expiration Date Visits Requested Visits Authorized [id number] Pending Review Specialty Services Required 04/23/2024 10/20/2024 1 1 [facility] for referral (narrative)No reason for referral information [facility] Work Phone: Reason for visit Narrative* Diagnostic Procedure Only (Routine) - Closed Specialty Diagnoses / Procedures Referred By Contac t Referred To Contact XR IMAGING Diagnoses Bilateral hand pain Procedures XR HAND GENERAL 3V PA/LAT/OBL BILATERAL RADEX HAND MINIMUM 3 VIEWS Mohini Hook MD [address] [place] [address] Xr Imaging Referral ID Status Reason Start Date Expiration Date V isits Requested Visits Authorized [id number] Closed Auto-Generate d Referral 08/17/2022 09/16/2023 1 1 [facility] for visit Narrative* Diagnostic Procedure Only (Routine) - Closed Specialty Diagnoses / Procedures Referred By Contac t Referred To Contact XR IMAGING Diagnoses Chronic pain of both knees Procedures XR KNEE GENERAL 4V AP BOTH/PA BOTH/LAT/MERC BILATERAL RADIOLOGIC EXAM KNEE COMPLETE 4/MORE VIEWS Mohini Hook MD [address] [place] [address] [place] [address] Referral ID Status Reason Start Date Expiration Date V isits Requested Visits Authorized [id number] Closed Auto-Generate d Referral 04/01/2023 04/30/2024 1 1 [facility] for visit Narrative* Consultation (Routine) - Authorized Specialty Diagnoses / Procedures Referred By Contac t Referred To Contact Cardiology Diagnoses 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 ([facility]-HCC) Procedures Follow Up In Cardiology Odilia Ernandez, 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 [address] [facility] [address] [place] [address] Alyssa Quick, [address] [facility] [address], [address] [place] [address] Referral ID Status Reason Start Date Expiration Date V isits Requested Visits Authorized [id number] Authorized 09/03/2023 09/02/[address] [facility] Work Phone: Reason for visit Narrative* Diagnostic Procedure Only (Routine) - Closed Specialty Diagnoses / Procedures Referred By Contac t Referred To Contact XR IMAGING Diagnoses Left shoulder pain, unspecified chronicity Procedures XR SHOULDER ORTHO 4V AP/TRUE AP/LAT/OUTLET LEFT RADEX SHOULDER COMPLETE MINIMUM 2 VIEWS Zain Matthew MD [address] [place] [address] [place] [address] Referral ID Status Reason Start Date Expiration Date V isits Requested Visits Authorized [id number] Closed Auto-Generate d Referral 12/25/2022 01/24/2024 1 1 [facility] for visit Narrative* Cardiac Stress Testing (Routine) - Authorized Specialty Diagnoses / Procedures Referred By Contac t Referred To Contact Radiology Diagnoses 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 Cardiomyopathy, ischemic Primary hypertension Mixed hyperlipidemia Procedures Nuclear Stress Test CHG MYOCARDIAL SPECT MULTIPLE STUDIES Odilia Ernandez, 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 [address] [facility] 2, [address] [address] Phone: tel: fax: Referral ID Status Reason Start Date Expiration Date V isits Requested Visits Authorized [id number] Authorized 12/11/2024 12/11/[address] [facility] Work Phone: reason for visit Narrative* Cardiac Stress Testing (Routine) - Authorized Specialty Diagnoses / Procedures Referred By Contac t Referred To Contact Radiology Diagnoses 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 Cardiomyopathy, ischemic Primary hypertension Mixed hyperlipidemia Procedures Nuclear Stress Test CHG MYOCARDIAL SPECT MULTIPLE STUDIES Odilia Ernandez, 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 [address] [facility] 2, [address] [address] Phone: tel: fax: Referral ID Status Reason Start Date Expiration Date V isits Requested Visits Authorized [id number] Authorized 12/11/2024 12/11/[address] [facility] Work Phone: reason for visit Narrative* Consultation (Routine) - Authorized Specialty Diagnoses / Procedures Referred By Contac t Referred To Contact Cardiology Diagnoses 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 Cardiomyopathy, ischemic Procedures Follow Up In Cardiology Odilia Ernandez, 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 [address] [facility] [address], [address] [place] [address] Phone: tel: fax: Referral ID Status Reason Start Date Expiration Date V isits Requested Visits Authorized [id number] Authorized 03/10/2025 03/10/[address] [facility] Work Phone: Reason for Referral Specialty Diagnoses / Procedures Referred By Contac t Referred To Contact Diagnoses Chronic maxillary sinusitis Procedures ECG 12 Lead Cely Goode, 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 [address] [place] [address] Referral ID Status Reason Start Date Expiration Date V isits Requested Visits Authorized [id number] Authorized 02/14/2024 02/13/2025 1 1 Specialty Diagnoses / Procedures Referred By Contac t Referred To Contact Cardiology Diagnoses Cardiomyopathy, ischemic Procedures Transthoracic Echo (TTE) Limited [place]V ECHO TRANSTHORC R-T 2D W/WO M-MODE REC F-UP/LMTD WV DOP ECHOCARD COLOR FLOW VELOCITY MAPPING WV DOP ECHOCARD PULSE WAVE W/SPECTRAL F-UP/LMTD STD Alyssa Quick, DO [address] [facility] 2, [facility] [address] [place] [address] Referral ID Status Reason Start Date Expiration Date Visits Requested Visits Authorized [id number] Pending Review Perform Procedure 07/12/2023 07/11/2024 1 1 Specialty Diagnoses / Procedures Referred By Contac t Referred To Contact Radiology Diagnoses 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 (CMS/HCC) Procedures XR chest 2 views Ottoniel Trevino [place] PhD [address] Department [place] [address] Referral ID Status Reason Start Date Expiration Date Visits Requested Visits Authorized [id number] Pending Review Perform Procedure 05/20/2024 1 1 Specialty Diagnoses / Procedures Referred By Contac t Referred To Contact Diagnoses S/P CABG x 2 Jeanette Perez, MICROWAVE SUPERVISOR-FOOD AND BEVERAGE OUTLETS MANAGER [address] [facility] [place] [address] Referral ID Status Reason Start Date Expiration Date V isits Requested Visits Authorized [id number] Pending Review 1 1 Specialty Diagnoses / Procedures Referred By Contac t Referred To Contact Diagnoses Acute systolic heart failure (CMS/HCC) Jeanette Perez [facility] [address] [facility] [place] [address] Referral ID Status Reason Start Date Expiration Date V isits Requested Visits Authorized [id number] Pending Review 05/15/2023 11/11/2023 1 1 Specialty Diagnoses / Procedures Referred By Contac t Referred To Contact Family Medicine / Primary Care Diagnoses S/P CABG x 2 Procedures [place] OFFICE/OUTPATIENT NEW HIGH MDM 60-74 MINUTES Jeanette Perez [facility] [address] [facility] [place] [address] Referral ID Status Reason Start Date Expiration Date Visits Requested Visits Authorized [id number] Pending Review Specialty Services Required 3 11/11/2023 1 1 Specialty Diagnoses / Procedures Referred By Contac t Referred To Contact Cardiology Diagnoses S/P CABG x 2 Procedures [place] OFFICE/OUTPATIENT NEW HIGH MDM 60-74 MINUTES Jeanette Perez, [facility] [address] [facility] [place] [address] Referral ID Status Reason Start Date Expiration Date Visits Requested Visits Authorized [id number] Pending Review Specialty Services Required 3 11/11/2023 1 1 Reason eval and treat multi ple joint pain Please refer to Mohini Hook MD Diagnosis 1 Pain, joint, multipl e sites (M25.50) Referral Organization [facility] am[facility] Referring Provider First Name Elsie Referring Provider Last Name Meredith Referring Provider Specialty Orthopedic Surgery Referred Organization [facility] Referred Address [address],[place], [place],[address] Referred Provider Specialty Rheumatology Referral Priority Routine Chief Complaint and Reason for Visit Chief Complaint M25.512 Chief Complaint M25.512 internal derangement of l shoulder Chief Complaint Shoulder pain Chief Complaint Shoulder pain Shoulder pain Chief Complaint non stemi R06.02 Z87.891 Reason for Visit Ischemic cardiomyopa thy Left ventricular aneurysm ST elevation myocardial infarction (STEMI) of lateral wall Tobacco abuse Chief Complaint non stemi R06.02 Z87.891 I25.119 Reason for Visit Ischemic cardiomyopa thy Left ventricular aneurysm ST elevation myocardial infarction (STEMI) of lateral wall Tobacco abuse Chief Complaint E87.70/i25.119 Chief Complaint E87.70/i25.119 R60.0 Chief Complaint E87.70/i25.119 R60.0 e87.70 i50.9 e78.2 Chief Complaint E87.70/i25.119 R60.0 e87.70 i50.9 e78.2 OP SP LT SHOULDER DISCUSS SURGERY M19.012 - Primary osteoarthritis, left shoulder Reason for Visit Arthritis of left gl enohumeral joint Pre-op exam Tear of left supraspinatus tendon Chief Complaint Admit Date Shoulder pain July 09, 2024 7 :34am H & P LEFT REVERSE TOTAL SHOULDER ARTHRO PLASTY July 09, 2024 9:26am Z01.818 - Encounter for other preprocedu ral examin July 09, 2024 9:45am Shoulder pain July 15, 2024 5:46am Shoulder pain July 15, 2024 6:48am Z96.612 - Presence of left artificial sh oulder manolo July 21, 2024 10:44am 1 week post op July 21, 2024 10:45am 5 WEEKS August 27, 2024 9 :04am Z96.612 - Presence of left artificial sh oulder manolo August 27, 2024 9:07am Reason for Visit Admit Date Arthritis of left glenohumeral joint Dec ember 2023 9:26am Pre-op exam July 09, 2024 9 :26am Tear of left supraspinatus tendon Decemb er 2023 9:26am 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 July 21, 2024 10:45am 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 August 27, 2024 9:04am Chief Complaint Admit Date Chest Pain, SOB November 18, 2024 7:3 6pm Reason for Visit Admit Date Congestive heart failure (CHF) November 7:36pm History of heart bypass surgery November 182024 7:36pm Ischemic cardiomyopathy November 18, 2024 7:36pm Left ventricular aneurysm November 18 7:36pm Tobacco abuse November 18, 2024 7:3 6pm Chief Complaint Admit Date Chest Pain, SOB November 18, 2024 7:3 6pm sob January 06, 2025 11:38 am Reason for Visit Admit Date Congestive heart failure (CHF) November 7:36pm History of heart bypass surgery November 182024 7:36pm Ischemic cardiomyopathy November 18, 2024 7:36pm Left ventricular aneurysm November 18 7:36pm Tobacco abuse November 18, 2024 7:3 6pm Acute exacerbation of chronic obstructiv e airways disease January 06, 2025 11:38am Apnea, sleep January 06, 2025 11:38 am CHF (congestive heart failure) January 06, 2025 11:38am Reason for Visit Admit Date Congestive heart failure (CHF) November 7:36pm History of heart bypass surgery November 182024 7:36pm Ischemic cardiomyopathy November 18, 2024 7:36pm Left ventricular aneurysm November 18 7:36pm Tobacco abuse November 18, 2024 7:3 6pm Acute exacerbation of chronic obstructiv e airways disease January 06, 2025 11:38am Apnea, sleep January 06, 2025 11:38 am Congestive heart failure (CHF) January 06, 2025 11:38am History of heart bypass surgery January 11:38am Ischemic cardiomyopathy January 06, 2025 1 1:38am Chief Complaint Admit Date Chest Pain, SOB November 18, 2024 7:3 6pm sob January 06, 2025 11:38 am ACHVD, cardiomyopathy, hx stent, ab stre ss January 29, 2025 11:30am Reason for Visit Admit Date Left ventricular aneurysm November 18 7:36pm Tobacco abuse November 18, 2024 7:3 6pm Congestive heart failure (CHF) November 7:36pm History of heart bypass surgery November 182024 7:36pm Ischemic cardiomyopathy November 18, 2024 7:36pm Acute exacerbation of chronic obstructiv e airways disease January 06, 2025 11:38am Apnea, sleep January 06, 2025 11:38 am Congestive heart failure (CHF) January 06, 2025 11:38am History of heart bypass surgery January 11:38am Ischemic cardiomyopathy January 06, 2025 1 1:38am Chief Complaint Admit Date sob January 06, 2025 11:38 am ACHVD, cardiomyopathy, hx stent, ab stre ss January 29, 2025 11:30am [email or web address] February 25, 2025 2:53 pm Reason for Visit Admit Date Acute exacerbation of chronic obstructiv e airways disease January 06, 2025 11:38am Apnea, sleep January 06, 2025 11:38 am Congestive heart failure (CHF) January 06, 2025 11:38am History of heart bypass surgery January 11:38am Ischemic cardiomyopathy January 06, 2025 1 1:38am Chief Complaint Admit Date sob January 06, 2025 11:38 am ACHVD, cardiomyopathy, hx stent, ab stre ss January 29, 2025 11:30am [email or web address] February 25, 2025 2:53 pm I25.119 March 01, 2025 3:01 pm Chief Complaint Admit Date ACHVD, cardiomyopathy, hx stent, ab stre ss January 29, 2025 11:30am [email or web address] February 25, 2025 2:53 pm I25.119 March 01, 2025 3:01 pm Ref: Emanuel Ernandez CAD ENGINEER - SOB April 13 10:16am Reason for Visit Admit Date COPD, mild April 13, 2025 10:16am GERD (gastroesophageal reflux disease) S eptember 2024 10:16am Nicotine dependence, cigarettes, uncompl icated April 13, 2025 10:16am Shortness of breath April 13, 2025 10:16am Advance Directives No Advanced Directives Records Found Advance Directive Response Recorded Date/ Time Advance Directives No November 04 1:24pm Advance Directive Response Recorded Date/ Time Advance Directives No November 04 12:24pm Latest Code Status on File Code Status Date Activated Date Inactivated Comments Full Code 05/07/2023 10:17 PM Question Answer Comments Plan of Care: Code Status Discussion Not Compl eted Decision Maker: Provider Rationale: Patient condition do es not warrant discussion Code Status History Code Status Date Activated Date Inactivated Comments Full Code 05/07/2023 10:01 PM 05/07/2023 10:17 PM Question Answer Comments Plan of Care: Code Status Discussion Completed Decision Maker: Patient Full Code 05/04/2023 4:19 AM 05/07/2023 10:01 PM Latest Code Status on File Code Status Date Activated Date Inactivated Comments Full Code 05/07/2023 10:17 PM 05/15/2023 9:16 PM Question Answer Comments Plan of Care: Code Status Discussion Not Compl eted Decision Maker: Provider Rationale: Patient condition do es not warrant discussion Latest Code Status on File Code Status Date Activated Date Inactivated Comments Full Code 05/07/2023 10:17 PM 05/15/2023 9:16 PM Question Answer Comments Plan of Care: Code Status Discussion Not Compl eted Decision Maker: Provider Rationale: Patient condition do es not warrant discussion Code Status History Code Status Date Activated Date Inactivated Comments Full Code 05/07/2023 10:01 PM 05/07/2023 10:17 PM Question Answer Comments Plan of Care: Code Status Discussion Completed Decision Maker: Patient Full Code 05/04/2023 4:19 AM 05/07/2023 10:01 PM Latest Code Status on File Code Status Date Activated Date Inactivated Comments Full Code 05/07/2023 10:17 PM 05/15/2023 9:16 PM Question Answer Comments Plan of Care: Code Status Discussion Not Compl eted Decision Maker: Provider Rationale: Patient condition do es not warrant discussion Code Status History Code Status Date Activated Date Inactivated Comments Full Code 05/07/2023 10:01 PM 05/07/2023 10:17 PM Question Answer Comments Plan of Care: Code Status Discussion Completed Decision Maker: Patient Full Code 05/04/2023 4:19 AM 05/07/2023 10:01 PM Date Activated Date Inactivated Comments 05/07/2023 10:17 PM 05/15/2023 9:16 PM Question Answer Comments Plan of Care: Code Status Discussion Not Compl eted Decision Maker: Provider Rationale: Patient condition does not warra nt discussion Date Activated Date Inactivated Comments 05/07/2023 10:01 PM 05/07/2023 10:17 PM Question Answer Comments Plan of Care: Code Status Discussion Completed Decision Maker: Patient Date Activated Date Inactivated Comments 05/04/2023 4:19 AM 05/07/2023 10:01 PM Date Activated Date Inactivated Comments 05/07/2023 10:17 PM 05/15/2023 9:16 PM Question Answer Comments Plan of Care: Code Status Discussion Not Compl eted Decision Maker: Provider Rationale: Patient condition does not warra nt discussion Date Activated Date Inactivated Comments 05/07/2023 10:01 PM 05/07/2023 10:17 PM Question Answer Comments Plan of Care: Code Status Discussion Completed Decision Maker: Patient Date Activated Date Inactivated Comments 05/04/2023 4:19 AM 05/07/2023 10:01 PM Advance Directive Response Recorded Date/ Time Advance Directives No March 15, 2025 11:56am Chief Complaint new patient. low back pain with LT leg pain to foot. LT foot has been numb x 2 years. xrays today.new patient. low back pain with LT leg pain to foot. LT foot has been numb x 2 years. xrays today.Chronic sinusitis Summary Purpose Family History No Family History Records Found Relationship Condition Age at Onset Recorded Date/T no Not Specified Rheumatoid arthritis Unknown father Glaucoma Unknown brother Heart problem Unknown brother Rheumatoid arthritis Unknown Relationship Condition Age at Onset Recorded Date/T no mother Rheumatoid arthritis Unknown father Glaucoma Unknown Myocardial infarction Unknown brother Heart problem Unknown brother Rheumatoid arthritis Unknown Additional Source Comments REASON FOR VISIT (unrecogniz ed section and content) Reason Comments Follow-up 3 week Specialty Diagnoses / Procedures Referred By Contac t Referred To Contact Cardiology Diagnoses Hypervolemia, unspecified hypervolemia type Procedures Follow Up In Cardiology Odilia Ernandez, 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 [address] [facility] [address], [address] [place] [address] Referral ID Status Reason Start Date Expiration Date V isits Requested Visits Authorized [id number] Authorized 10/23/2023 10/22/2024 1 1 Reason Comments Radiology XR Reason Comments Consult Dx oa. Pain X over 2 yrs. Reason Comments Results Reason Comments Refill Request Reason Comments Follow Up Pain Ongoing generalized pain. Reason Comments Radio Gen RMP Reason Comments Other CAD I25. 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 (CMS/HCC) Procedures NO CODED SERVICES ENTERED [place]toniel Trevino [place] PhD [address] [facility] [place] [address] [facility] [address] [place] [address] Referral ID Status Reason Start Date Expiration Date Visits Re quested Visits Authorized [id number] 1 1 Reason Comments Follow-up S/p CABG @ Specialty Diagnoses / Procedures Referred By Contac t Referred To Contact Radiology Diagnoses 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 Karrie Peguero BSN, RN-BC. Reason Comments Follow-up 3m Specialty Diagnoses / Procedures Referred By Contac t Referred To Contact Cardiology Diagnoses S/P CABG x 2 HFrEF (heart failure with reduced ejection fraction) ([facility]) Procedures Transthoracic Echo (TTE) Complete [place] ECHO TRANSTHORC R-T 2D W/WO M-MODE REC F-UP/LMTD WV DOP ECHOCARD COLOR FLOW VELOCITY MAPPING WV DOP ECHOCARD PULSE WAVE W/SPECTRAL F-UP/LMTD STD Alyssa Quick S, DO [address] [facility] [address], [address] [place] [address] Referral ID Status Reason Start Date Expiration Date Visits Requested Visits Authorized [id number] Pending Review Perform Procedure 3 06/17/2024 1 1 Specialty Diagnoses / Procedures Referred By Contac t Referred To Contact Cardiology Diagnoses Cardiomyopathy, ischemic Procedures Transthoracic Echo (TTE) Limited [place]V ECHO TRANSTHORC R-T 2D W/WO M-MODE REC F-UP/LMTD W[place] DOP ECHOCARD COLOR FLOW VELOCITY MAPPING WV DOP ECHOCARD PULSE WAVE W/SPECTRAL F-UP/LMTD STD lAyssa Quick, DO [address] [place] [address] [address], [address] [address] Referral ID Status Reason Start Date Expiration Date Visits Requested Visits Authorized [id number] Pending Review Perform Procedure 07/12/2023 07/11/2024 1 1 Reason Comments Follow-up 1 month, edema Reason Comments Follow-up 1w Referral ID Status Reason Start Date Expiration Date V isits Requested Visits Authorized [id number] Authorized 10/15/2023 10/14/2024 1 1 Reason Comments Follow-up Reason Onset Date Comments Med Refill 05/11/2024 Reason Comments Follow-up Not breathing well a fter surgery Reason Onset Date Comments Med Refill 06/09/2024 Reason Onset Date Comments Med Refill 07/06/2024 Reason Comments Follow-up Surgical clearance l eft shoulder Specialty Diagnoses / Procedures Referred By Contac t Referred To Contact Diagnoses Chronic maxillary sinusitis Procedures ECG 12 Lead Cely Goode, 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 [address] [place] [id number] Referral ID Status Reason Start Date Expiration Date V isits Requested Visits Authorized [id number] Authorized 02/14/2024 02/13/2025 1 1 Reason Comments Post-op No issues today Reason Onset Date Comments Med Refill 04/13/2024 Reason Comments Follow-up 3m Reason Onset Date Comments Med Refill 07/30/2024 Reason Comments Follow-up 6 month Specialty Diagnoses / Procedures Referred By Contac t Referred To Contact Cardiology Diagnoses 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 Procedures Follow Up In Cardiology Alyssa Quick, [address] [place] [address] [address], [address] [address] Phone: tel: fax: Alyssa Quick, DO [address] [facility] 2, [address] [address] Phone: tel: fax: Referral ID Status Reason Start Date Expiration Date V isits Requested Visits Authorized [id number] Authorized 12/03/2023 12/02/2024 1 1 Reason Onset Date Comments Med Refill 10/26/2024 Reason Onset Date Comments Med Refill 11/25/2024 Reason Comments [place]-up [facility] [place] Reason Comments Follow-up 2-4 week follow up h eart failure Reason Comments Post-op Follow-up Reason Onset Date Comments Med Refill 01/20/2025 Reason Comments Follow-up Hospital f/up firela nds Reason Onset Date Comments Med Refill 02/16/2025 Reason Comments Follow-up 6month Follow up for Coronary Artery Disease Specialty Diagnoses / Procedures Referred By Contac t Referred To Contact Cardiology Diagnoses 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 Procedures Follow Up In Cardiology Alyssa Quick DO [address] [facility] 2, [place] [address] Phone: tel: fax: Odilia Ernandez, 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 [address] [facility] [address], [address] [address] Phone: tel: fax: Referral ID Status Reason Start Date Expiration Date V isits Requested Visits Authorized [id number] Authorized 08/26/2024 08/26/2025 1 1 Reason Comments Follow-up 3m Fatigue Shortness of Breath Reason Comments Follow-up Pft results Specialty Diagnoses / Procedures Referred By Contac t Referred To Contact Cardiology Diagnoses 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 Procedures Follow Up In Cardiology Odilia Ernandez, 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 [address] [facility] 2, [address] [address] Phone: tel: fax: Referral ID Status Reason Start Date Expiration Date V isits Requested Visits Authorized [id number] Authorized 02/23/2025 02/23/2026 1 1 Reason Onset Date Comments Med Refill 03/16/2025 Reason Comments Follow-up [employer] Teams (unrecognized sec tion and content) Team Status: Active Member Role Status Dates Juve Mcpherson MD Primary Care Provider Active Team Status: Inactive Member Role Status Dates Juve Mcpherson MD Primary Care Provider Active W Lan Quick , DO Admit Provider, Attending Provide r Active Yvette Larson , MICROWAVE SUPERVISOR [facility] Other Provider Active Cj Hathaway MD Other Provider Active Tani Jimenez MD Other Provider Active Tiara Olivarez MD Other Provider Active Jhon Garcia , DO Other Provider Active Cassie Lott MD Other Provider Active Rene Balderas MD Other Provider Active Efren Rosales MD Other Provider Active Manpreet Lane , DO Other Provider Active Team Status: Inactive Member Role Status Dates Juve Mcpherson MD Primary Care Provider Active Odilia Ernandez , MICROWAVE SUPERVISOR Attending Provider Active Team Status: Inactive Member Role Status Dates Juve Mcpherson MD Primary Care Provider Active Elsie Escalera MD Attending Provider Active 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 Start Date End Date Elsie Escalera [address] [address] PCP - General Orthopedics 08/17/22 Meredith Elsie Todd [address] [place] [address] Referring Orthopedics 12/06/21 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 Start Date End Date Elsie Escalera [address] [place] [address] PCP - General Orthopedics 08/17/22 Meredith Elsie Todd [address] [place] [address] Referring Orthopedics 12/06/21 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 Start Date End Date Elsie Escalera [address] [place] [address] PCP - General Orthopedics 08/17/22 Elsie Escalera Peyton [address] [place] [address] Referring Orthopedics 12/06/21 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 Start Date End Date Elsie Escalera [address] [employer] [place] [phone] PCP - General Orthopedics 08/17/22 Elsie Escalera Peyton [address] [place] [address] Referring Orthopedics 12/06/21 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 Start Date End Date Elsie Escalera [address] [place] [phone] PCP - General Orthopedics 08/17/22 Elsie Escalera [address] [place] [address] Referring Orthopedics 12/06/21 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 Start Date End Date Elsie Escalera [address] [place] [phone] PCP - General Orthopedics 08/17/22 Elsie Escalera [address] [place] [address] Referring Orthopedics 12/06/21 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 Start Date End Date Elsie Escalera [address] [place] [phone] PCP - General Orthopedics 08/17/22 Elsie Escalera [address] [place] [address] Referring Orthopedics 12/06/21 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 Start Date End Date Elsie Escalera [address] [place] [phone] PCP - General Orthopedics 08/17/22 Elsie Escalera [address] [place] [address] Referring Orthopedics 12/06/21 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 Start Date End Date Elsie Escalera [address] [facility] [place] [phone] PCP - General Orthopedics 08/17/22 Elsie Escalera [address] [place] [address] Referring Orthopedics 12/06/21 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 Start Date End Date Generic Provider, No Assigned PcpMD [address] [place] [address] PCP - General Family Medicine 05/23/23 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 Start Date End Date Generic Provider, No Assigned MD Damon [address] [place] [address] PCP - General Family Medicine 05/23/23 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 Start Date End Date Generic Provider, No Assigned MD Damon [address] [place] [address] PCP - General Family Medicine 05/23/23 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 Start Date End Date Generic Provider, No Assigned MD Damon [address] [place] [address] PCP - General Family Medicine 05/23/23 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 Start Date End Date Generic Provider, No Assigned MD Damon [address] [place] [address] PCP - General Family Medicine 05/23/23 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 Start Date End Date Generic Provider, No Assigned MD Damon [address] [place] [address] PCP - General Family Medicine 05/23/23 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 Start Date End Date Generic Provider, No Assigned MD Damon [address] [place] [address] PCP - General Family Medicine 05/23/23 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 Start Date End Date Generic Provider, No Assigned MD Damon PCP - General Family Medicine 05/23/23 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 Start Date End Date Juve Mcpherson MD [address] [place] [address] PCP - [facility] Medicine 10/23/23 Team Status: Inactive Member Role Status Dates Juve Mcpherson MD Primary Care Provider Active S tart: October 23, 2023 End: October 23, 2023 Odilia Ernandez APRN Attending Provider Active S tart: October 23, 2023 End: October 23, 2023 Team Status: Inactive Member Role Status Dates Juve Mcpherson MD Primary Care Provider Active S tart: November 05, 2023 End: November 05, 2023 Odilia Ernandez APRN Attending Provider Active S tart: November 05, 2023 End: November 05, 2023 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 Start Date End Date Juve Mcpherson MD [address] [place] [address] [facility] - [facility] Medicine 10/23/23 Team Status: Inactive Member Role Status Dates Juve Mcpherson MD Primary Care Provider Active S tart: November 26, 2023 End: November 26, 2023 Odilia Ernandez APRN Attending Provider Active S tart: November 26, 2023 End: November 26, 2023 Team Status: Inactive Member Role Status Dates Juve Mcpherson MD Primary Care Provider Active S tart: January 14, 2024 End: January 14, 2024 Elsie Escalera MD Attending Provider Active Star t: January 14, 2024 End: January 14, 2024 Team Status: Active Member Role Status Dates Elsie Escalera MD Attending Provider Active Star t: January 14, 2024 Juve Mcpherson MD Primary Care Provider Active S tart: January 14, 2024 Team Status: Inactive Member Role Status Dates Elsie Escalera MD Attending Provider Active Star t: January 14, 2024 End: January 14, 2024 Juve Mcpherson MD Primary Care Provider Active S tart: January 14, 2024 End: January 14, 2024 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 Start Date End Date Juve Mcpherson MD [address] [place] [address] PCP - General Family Medicine 10/23/23 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 Start Date End Date Elsie Escalera MD [address] [place] [address] PCP - General Orthopedics 08/17/22 Elsie Escalera MD [address] [place] [address] Referring Orthopedics 12/06/21 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 Start Date End Date Elsie Escalera MD [address] [place] [address] PCP - General Orthopedics 08/17/22 Elsie Escalera MD [address] [place] [address] Referring Orthopedics 12/06/21 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 Start Date End Date Juve Mcpherson MD [address] [place] [phone] PCP - General Family Medicine 12/04/23 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 Start Date End Date Juve Mcpherson MD [address] [place] [phone] PCP - General Family Medicine 12/04/23 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 Start Date End Date Juve Mcpherson MD [address] [place] [phone] PCP - General Family Medicine 12/04/23 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 Start Date End Date Juve Mcpherson MD [address] [place] [address] PCP - General Family Medicine 10/23/23 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 Start Date End Date Juve Mcpherson MD [address] [place] [address] PCP - General Family Medicine 12/04/23 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 Start Date End Date Juve Mcpherson MD [address] [place] [address] PCP - General Family Medicine 12/04/23 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 Start Date End Date Juve Mcpherson MD [address] [place] [address] PCP - General Family Medicine 12/04/23 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 Start Date End Date Juve Mcpherson MD [address] [place] [address] PCP - General Family Medicine 10/23/23 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 Start Date End Date Juve Mcpherson MD [address] [place] [address] PCP - General Family Medicine 10/23/23 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 Start Date End Date Juve Mcpherson MD [address] [place] [address] PCP - General Family Medicine 12/04/23 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 Start Date End Date Juve Mcpherson MD [address] [place] [address] PCP - General Family Medicine 12/04/23 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 Start Date End Date Juve Mcpherson MD [address] [place] [phone] PCP - General Family Medicine 12/04/23 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 Start Date End Date Juve Mcpherson MD [address] [place] [phone] PCP - General Family Medicine 12/04/23 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 Start Date End Date Juve Mcpherson MD [address] [place] [address] PCP - General Family Medicine 12/04/23 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 Start Date End Date Juve Mcpherson MD [address] [place], [place] [phone] PCP - General Family Medicine 10/23/23 Team Status: Inactive Member Role Status Dates Juve Mcpherson MD Primary Care Provider Active S tart: July 09, 2024 End: July 09, 2024 Elsie Escalera MD Attending Provider Active Star t: July 09, 2024 End: July 09, 2024 Team Status: Inactive Member Role Status Dates Elsie Escalera MD Attending Provider Active Star t: July 09, 2024 End: July 09, 2024 Juve Mcpherson MD Primary Care Provider Active S tart: July 09, 2024 End: July 09, 2024 Team Status: Inactive Member Role Status Dates Juve Mcpherson MD Primary Care Provider Active S tart: July 15, 2024 End: July 15, 2024 Elsie Escalera MD Attending Provider Active Star t: July 15, 2024 End: July 15, 2024 Team Status: Active Member Role Status Dates Juve Mcpherson MD Primary Care Provider Active S tart: July 15, 2024 Elsie Escalera MD Attending Provider, Other Provider Active Start: July 15, 2024 Team Status: Inactive Member Role Status Dates Elsie Escalera MD Attending Provider Active Star t: July 21, 2024 End: July 21, 2024 Juve Mcpherson MD Primary Care Provider Active S tart: July 21, 2024 End: July 21, 2024 Team Status: Inactive Member Role Status Valentina Mcpherson MD Primary Care Provider Active S tart: July 21, 2024 End: July 21, 2024 Elsie Escalera MD Attending Provider Active Star t: July 21, 2024 End: July 21, 2024 Team Status: Inactive Member Role Status Valentina Mcpherson MD Primary Care Provider Active S tart: August 27, 2024 End: August 27, 2024 Elsie Escalera MD Attending Provider Active Star t: August 27, 2024 End: August 27, 2024 Team Status: Active Member Role Status Valentina Escalera MD Attending Provider Active Star t: August 27, 2024 Juve Mcpherson MD Primary Care Provider Active S tart: August 27, 2024 Team Status: Inactive Member Role Status Valentina Escalera MD Attending Provider Active Star t: August 27, 2024 End: August 27, 2024 Juve Mcpherson MD Primary Care Provider Active S tart: August 27, 2024 End: August 27, 2024 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 Start Date End Date Juve Mcpherson MD [address] [place] [address] PCP - General Family Medicine 12/04/23 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 Start Date End Date Juve Mcpherson MD [address] [place] [address] PCP - General Family Medicine 12/04/23 Team Status: Inactive Member Role Status Valentina Mcpherson MD Primary Care Provider Active S tart: November 18, 2024 End: November 20, 2024 Rene Ernandez MD Emergency Provider Active Star t: November 18, 2024 End: November 20, 2024 Sabi Choudhury MD Admit Provider Active Start: Peyton almonte 2024 End: November 20, 2024 Sherine Michaels RN Other Provider Active Star t: November 18, 2024 End: November 20, 2024 Hetal Quick DO Other Provider Active Start : November 18, 2024 End: November 20, 2024 Ashutosh Espinal MD Other Provider Active Start: November 18, 2024 End: November 20, 2024 Alyssa Wren MD Other Provider Active Start: November 18, 2024 End: November 20, 2024 Earnest Dyer MD Other Provider Active St art: November 18, 2024 End: November 20, 2024 Joe Liu MD Other Provider Active Start: November 18, 2024 End: November 20, 2024 Odilia Ernandez APRN Other Provider Active Start : November 18, 2024 End: November 20, 2024 Yessica Rondon MD Other Provider Active Start: A l 2024 End: November 20, 2024 Toni Toledo MD Other Provider Active Start: November 18, 2024 End: November 20, 2024 Susan Braun MD Other Provider Active Start: A pril 2024 End: November 20, 2024 Tammy Marcial [facility]- Other Provider Active Sta rt: November 18, 2024 End: November 20, 2024 Kermit Iraheta MD Attending Provider Active Star t: November 18, 2024 End: November 20, 2024 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 Start Date End Date Juve Mcpherson MD [address] [place] [address] PCP - General Family Medicine 10/23/23 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 Start Date End Date Juve Mcpherson MD [address] [place] [address] PCP - General Family Medicine 10/23/23 Team Status: Active Member Role Status Dates Ayesha Hunter DO Emergency Provider Active Sta rt: January 06, 2025 Juve Mcpherson MD Primary Care Provider Active S tart: January 06, 2025 Sabi Choudhury MD Admit Provider, Atte nding Provider Active Start: January 06, 2025 Sherine Michaels RN Other Provider Active Star t: January 06, 2025 Hetal Quick DO Other Provider Active Start : January 06, 2025 Ashutosh Espinal MD Other Provider Active Start: January 06, 2025 Alyssa Wren MD Other Provider Active Start: January 06, 2025 Earnest Dyer MD Other Provider Active St art: January 06, 2025 Joe Liu MD Other Provider Active Start: January 06, 2025 Odilia Ernandez APRN Other Provider Active Start : January 06, 2025 Yessica Rondon MD Other Provider Active Start: 2024 Toni Toledo MD Other Provider Active Start: January 06, 2025 Susan Braun MD Other Provider Active Start: 2024 Tammy Marcial , [facility]- Other Provider Active Sta rt: January 06, 2025 Team Status: Inactive Member Role Status Dates Ayesha Hunter DO Emergency Provider Active Sta rt: January 06, 2025 End: January 08, 2025 Juve Mcpherson MD Primary Care Provider Active S tart: January 06, 2025 End: January 08, 2025 Sabi Choudhury MD Admit Provider Active Start: 2024 End: January 08, 2025 Jud Hutchison MD Attending Provider Active S tart: January 06, 2025 End: January 08, 2025 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 Start Date End Date Juve Mcpherson MD [address] [place] [address] PCP - General Family Medicine 12/04/23 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 Start Date End Date Juve Mcpherson MD [address] [place] [address] PCP - General Family Medicine 12/04/23 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 Start Date End Date Juve Mcpherson MD [address] [place] [phone] PCP - General Family Medicine 12/04/23 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 Start Date End Date Juve Mcpherson MD [address] [place] [address] PCP - General Family Medicine 10/23/23 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 Start Date End Date Juve Mpcherson MD [address] [place] [address] PCP - General Family Medicine 10/23/23 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 Start Date End Date Juve Mcpherson MD [address] [place] [address] PCP - General Family Medicine 10/23/23 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 Start Date End Date Juve Mcpherson MD [address] [place] [phone] PCP - General Family Medicine 12/04/23 Team Status: Inactive Member Role Status Dates Juve Mcpherson MD Primary Care Provider Active S tart: January 29, 2025 End: January 29, 2025 W Lan Quick DO Attending Provider Active S tart: January 29, 2025 End: January 29, 2025 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 Start Date End Date Juve Mcpherson MD [address] [place] [phone] PCP - General Family Medicine 12/04/23 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 Start Date End Date Juve Mcpherson MD [address] [place] [address] PCP - General Family Medicine 10/23/23 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 Start Date End Date Juve Mcpherson MD [address] [place] [phone] PCP - General Family Medicine 12/04/23 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 Start Date End Date Juve Mcpherson MD [address] [place] [phone] PCP - General Family Medicine 12/04/23 Team Status: Active Member Role Status Dates Juve Mcpherson MD Primary Care Provider Active S tart: February 25, 2025 Odilia Ernandez APRN Other Provider Active Start : February 25, 2025 Tani Jimenez MD Attending Provider Active Start: February 25, 2025 Team Status: Inactive Member Role Status Dates Juve Mcpherson MD Primary Care Provider Active S tart: March 01, 2025 End: March 01, 2025 Odilia Ernandez APRN Attending Provider Active S tart: March 01, 2025 End: March 01, 2025 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 Start Date End Date Juve Mcpherson MD [address] [place] [address] PCP - General Family Medicine 10/23/23 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 Start Date End Date Juve Mcpherson MD [address] [place] [phone] PCP - General Family Medicine 12/04/23 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 Start Date End Date Elsie Escalera MD [address] [place] [address] PCP - General Orthopedics 08/17/22 Elsie Escalera MD [address] [place] [address] Referring Orthopedics 12/06/21 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 Start Date End Date Juve Mcpherson MD [address] [place] [phone] PCP - General Family Medicine 12/04/23 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 Start Date End Date Juve Mcpherson MD [address] [place] [address] PCP - General Family Medicine 12/04/23 Team Status: Inactive Member Role Status Dates Juve Mcpherson MD Primary Care Provider Active S tart: April 13, 2025 End: April 13, 2025 Yvette Larson APRN [facility] Attending Provider Active Start: April 13, 2025 End: April 13, 2025 Odilia Ernandez APRN Referring Provider Active S tart: April 13, 2025 End: April 13, 2025 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 Start Date End Date Juve Mcpherson MD [address] [place] [phone] PCP - General Family Medicine 04/21/25 Goals (unrecognized section and content) Goals may be documented in a n alternate section Source Comments (unrecognize d section and content) In the event this informatio n is protected by the Federal Confidentiality of Alcohol and Drug Abuse Patient Records regulations: The Federal rules restrict any use of the information to criminally investigate or prosecute any alcohol or drug abuse patient.[facility] the event this information is protected by the Federal Confidentiality of Alcohol and Drug Abuse Patient Records regulations: The Federal rules restrict any use of the information to criminally investigate or prosecute any alcohol or drug abuse patient.[facility] Center[facility] the event this information is protected by the Federal Confidentiality of Alcohol and Drug Abuse Patient Records regulations: The Federal rules restrict any use of the information to criminally investigate or prosecute any alcohol or drug abuse patient.[facility] the event this information is protected by the Federal Confidentiality of Alcohol and Drug Abuse Patient Records regulations: The Federal rules restrict any use of the information to criminally investigate or prosecute any alcohol or drug abuse patient.[facility] Center[facility] the event this information is protected by the Federal Confidentiality of Alcohol and Drug Abuse Patient Records regulations: The Federal rules restrict any use of the information to criminally investigate or prosecute any alcohol or drug abuse patient.[facility] Center[facility] the event this information is protected by the Federal Confidentiality of Alcohol and Drug Abuse Patient Records regulations: The Federal rules restrict any use of the information to criminally investigate or prosecute any alcohol or drug abuse patient.[facility] Center[facility] the event this information is protected by the Federal Confidentiality of Alcohol and Drug Abuse Patient Records regulations: The Federal rules restrict any use of the information to criminally investigate or prosecute any alcohol or drug abuse patient.[facility] Center[facility] the event this information is protected by the Federal Confidentiality of Alcohol and Drug Abuse Patient Records regulations: The Federal rules restrict any use of the information to criminally investigate or prosecute any alcohol or drug abuse patient.[facility] CenterIn the event this information is protected by the Federal Confidentiality of Alcohol and Drug Abuse Patient Records regulations: The Federal rules restrict any use of the information to criminally investigate or prosecute any alcohol or drug abuse patient.[facility] the event this information is protected by the Federal Confidentiality of Alcohol and Drug Abuse Patient Records regulations: The Federal rules restrict any use of the information to criminally investigate or prosecute any alcohol or drug abuse patient.[facility] CenterIn the event this information is protected by the Federal Confidentiality of Alcohol and Drug Abuse Patient Records regulations: The Federal rules restrict any use of the information to criminally investigate or prosecute any alcohol or drug abuse patient.[facility] CenterIn the event this information is protected by the Federal Confidentiality of Alcohol and Drug Abuse Patient Records regulations: The Federal rules restrict any use of the information to criminally investigate or prosecute any alcohol or drug abuse patient.[facility] CenterIn the event this information is protected by the Federal Confidentiality of Alcohol and Drug Abuse Patient Records regulations: The Federal rules restrict any use of the information to criminally investigate or prosecute any alcohol or drug abuse patient.[facility] (unrecognized sect ion and content) No Status Records FoundNo Status Records FoundNo Status Records FoundNo Status Records FoundNo Status Records FoundNo Status Records FoundNo Status Records FoundNo Status Records FoundNo Status Records FoundNo Status Records FoundNo Status Records FoundNo Status Records FoundNo Status Records Found INFORMATION SOURCE (unrecogn ized section and content) DATE CREATED AUTHOR 08/18/2022 [employer] DATE CREATED AUTHOR AUTHOR'S ORGANIZ ATION [facility] DATE CREATED AUTHOR AUTHOR'S ORGANIZ ATION 11/24/2022 [facility] DATE CREATED AUTHOR AUTHOR'S ORGANIZ ATION 01/31/2023 [facility] DATE CREATED AUTHOR AUTHOR'S ORGANIZ ATION 02/20/2024 [facility] DATE CREATED AUTHOR AUTHOR'S ORGANIZ ATION 04/02/2024 [facility] DATE CREATED AUTHOR AUTHOR'S ORGANIZ ATION 12/16/2024 [facility] DATE CREATED AUTHOR AUTHOR'S ORGANIZ ATION 01/13/2025 [facility] DATE CREATED AUTHOR AUTHOR'S ORGANIZ ATION 01/29/2025 [facility] DATE CREATED AUTHOR AUTHOR'S ORGANIZ ATION 02/07/2025 [facility] DATE CREATED AUTHOR AUTHOR'S ORGANIZ ATION 03/28/2025 [facility] DATE CREATED AUTHOR AUTHOR'S ORGANIZ ATION 04/15/2025 [facility] DATE CREATED AUTHOR AUTHOR'S ORGANIZ ATION 04/29/2025 [facility] Ambulatory Scheduled Active and Recently Administ ered Medications (unrecognized section and content) Medication Order 05/13/2023 05/14/2023 05/15/2023 acetaminophen (Tylenol) tablet 650 mg(Linked Group 1) 650 mg, oral, Every 4 hours, First dose on Sat05/07/23 at 2230, Use oral route if available., If ordered PRN for pain, nurse is permitted to administer this medication for higher pain scores based on patient preference? Yes 0301 (Given - Provider: Wilberto Collins RN)0612 (Given - Provider: Wilberto Collins RN)1134 (Given - Provider: Sissy Mcfadden RN)1535 (Given - Provider: Sissy Mcfadden RN)1927 (Given - Provider: Mansi Shelley RN)2230 (Not Given - Provider: Mansi Shelley RN - Reason: Other - Comment: too close to previous dose) 0048 (Given - Provider: Mansi Shelley RN)0217 (Not Given - Provider: Mansi Shelley RN - Reason: Other - Comment: see other dose)0512 (Given - Provider: Mansi Shelley RN)0936 (Given - Provider: Sissy Mcfadden RN)1437 (Given - Provider: Sissy Mcfadden RN)1838 (Given - Provider: Sissy Mcfadden RN)2234 (Given - Provider: Mansi Shelley RN) 0231 (Given - Provider: Mansi Shelley RN)0612 (Given - Provider: Mansi Shelley RN)1040 (Given - Provider: Sissy Mcfadden RN)1456 (Given - Provider: Sissy Mcfadden RN)1857 (Given - Provider: Sissy Mcfadden RN)2230 (Due - Provider: Eliana Santos, PharmD) aspirin chewable tablet 81 mg(Linked Group 2) 81 mg, oral, Daily, First dose on Sat05/08/23 at 0900, HOLD for platelets LESS than 50,000. 1134 (Given - Provider: Sissy Mcfadden RN) 1239 (Given - Provider: Sissy Mcfadden RN) 1200 (Given - Provider: Sissy Mcfadden RN) atorvastatin (Lipitor) tablet 80 mg 80 mg, oral, Daily, First dose on Sat05/08/23 at 0900 2031 (Given - Provider: Mansi Shelley RN) 2106 (Given - Provider: Mansi Sehlley RN) 2100 (Due - Provider: Tani Rogers) bisacodyl (Dulcolax) suppository 10 mg 10 mg, rectal, Daily, First dose on Sat05/13/23 at 1630 1630 (Not Given - Provider: Sissy Mcfadden RN - Reason: Patient/family refused) 09 (Not Given - Provider: Sissy Mcfadden RN - Reason: Patient/family refused) 09 (Not Given - Provider: Sissy Mcfadden RN - Reason: Patient/family refused) clopidogrel (Plavix) tablet 75 mg 75 mg, oral, Daily, First dose on Sat05/09/23 at 0900, HOLD for platelets LESS than 50,000. 09 (Given - Provider: Sissy Mcfadden RN) 09 (Given - Provider: Sissy Mcfadden RN) 908 (Given - Provider: Sissy Mcfadden RN) docusate sodium (Colace) capsule 100 mg 100 mg, oral, 2 times daily, First dose on Sat05/08/23 at 2100 09 (Given - Provider: Sissy Mcfadden RN)2099 (Not Given - Provider: Mansi Shelley RN - Reason: Patient/family refused) 911 (Given - Provider: Sissy Mcfadden RN)2099 (Not Given - Provider: Mansi Shelley RN - Reason: Patient/family refused) 910 (Given - Provider: Sissy Mcfadden RN)2099 (Due) DULoxetine (Cymbalta) DR capsule 30 mg 30 mg, oral, Daily, First dose on Sat05/09/23 at 1800, Do not crush or chew. 09 (Given - Provider: Sissy Mcfadden RN) 911 (Given - Provider: Sissy Mcfadden RN) 951 (Given - Provider: Sissy Mcfadden RN) empagliflozin (Jardiance) tablet 10 mg 10 mg, oral, Daily, First dose on Sat05/13/23 at 0900 09 (Given - Provider: Sissy Mcfadden RN) 911 (Given - Provider: Sissy Mcfadden RN) 951 (Given - Provider: Sissy Mcfadden RN) furosemide (Lasix) injection 20 mg (COMPLETED) 20 mg, intravenous, Once, On Sat05/13/23 at 0815, For 1 dose 908 (Given - Provider: Sissy Mcfadden RN) furosemide (Lasix) tablet 20 mg 20 mg, oral, Daily, First dose on Sat05/15/23 at 1030 1043 (Given - Provider: Sissy Mcfadden RN) gabapentin (Neurontin) capsule 300 mg 300 mg, oral, Every 8 hours, First dose on Sat05/09/23 at 1045, Capsules may be opened and sprinkled on food (eg, applesauce, orange juice, pudding 0301 (Given - Provider: Wilberto Collins RN)1134 (Given - Provider: Sissy Mcfadden RN)1831 (Given - Provider: Sissy Mcfadden RN) 0201 (Given - Provider: Mansi Shelley RN)1048 (Given - Provider: Sissy Mcfadden RN)1837 (Given - Provider: Sissy Mcfadden RN) 0146 (Given - Provider: Mansi Shelley RN)1040 (Given - Provider: Sissy Mcfadden RN)1857 (Given - Provider: Sissy Mcfadden RN) heparin (porcine) injection 5,000 Units 5,000 Units, subcutaneous, Every 8 hours, First dose on Sat05/08/23 at 1600 0014 (Given - Provider: Wilberto Collins RN)0909 (Given - Provider: Sissy Mcfadden RN - Comment: workflow)1539 (Given - Provider: Sissy Mcfadden RN) 0048 (Given - Provider: Mansi Shelley RN)0913 (Given - Provider: Sissy Mcfadden RN)1700 (Given - Provider: Sissy Mcfadden RN) 0137 (Given - Provider: Mansi Shelley RN)0910 (Given - Provider: Sissy Mcfadden RN)1709 (Given - Provider: Sissy Mcfadden RN) ipratropium-albuteroL (Duo-Neb) 0.5-2.5 mg/3 mL nebulizer solution 3 mL 3 mL, nebulization, Every 6 hours RT, First dose on Sat05/12/23 at 2100 0545 (Given - Provider: Nandini Collins, ORTIZ - Comment: workflow)0854 (Given - Provider: Wilberto Pak, ORTIZ)1527 (Given - Provider: Wilberto Pak RRT)2100 (Not Given - Provider: Javier Enamorado RRT - Reason: Patient/family refused) 0300 (Not Given - Provider: Javier Enamorado RRT - Reason: Patient/family refused)0846 (Given - Provider: Wilberto Pak RRT)1512 (Given - Provider: Wilberto Pak RRT)2221 (Given - Provider: Live Ashley RRT) 0237 (Given - Provider: Live Ashley RRT)1049 (Given - Provider: Earnestine Heard - Comment: workflow)1451 (Given - Provider: Earnestine Heard)2100 (Due - Provider: Wilmer De La Rosa RRT) iron polysaccharides (Nu-Iron,Niferex) capsule 150 mg 150 mg, oral, Daily, First dose on Sat05/10/23 at 1745 0912 (Given - Provider: Sissy Mcfadden RN) 0912 (Given - Provider: Sissy Mcfadden RN) 0910 (Given - Provider: Sissy Mcfadden RN) lidocaine 4 % patch 1 patch 1 patch, transdermal, Administer over 12 Hours, Daily, First dose on Sat05/08/23 at 1045, Apply to chest. Patch will remain on for 12 hours, then removed for [address] patch directly over any surgical incisions or wounds. 0910 (Medication Applied - Provider: Sissy Mcfadden RN)2110 (Medication Removed - Provider: Mansi Shelley RN) 0900 (Not Given - Provider: Sissy Mcfadden RN - Reason: Patient/family refused) 0900 (Not Given - Provider: Sissy Mcfadden RN - Reason: Patient/family refused) losartan (Cozaar) tablet 25 mg (CANCELED) 25 mg, oral, Daily, First dose on Sat05/12/23 at 0900 0908 (Given - Provider: Sissy Mcfadden RN) melatonin tablet 5 mg 5 mg, oral, Nightly, First dose on Sat05/10/23 at 2100 203 (Given - Provider: Mansi Shelley RN) 210 (Given - Provider: Mansi Shelley RN) 2100 (Due) methocarbamol (Robaxin) tablet 500 mg 500 mg, oral, Every 6 hours scheduled, First dose on Sat05/10/23 at 0830 0458 (Given - Provider: Wilberto Collins RN)0912 (Given - Provider: Sissy Mcfadden RN)1538 (Given - Provider: Sissy Mcfadden RN)2131 (Given - Provider: Mansi Shelley RN) 0512 (Given - Provider: Mansi Shelley RN)1048 (Given - Provider: Sissy Mcfadden RN)1701 (Given - Provider: Sissy Mcfadden RN)2106 (Given - Provider: Mansi Shelley RN) 0513 (Given - Provider: Mansi Shelley RN)1040 (Given - Provider: Sissy Mcfadden RN)1709 (Given - Provider: Sissy Mcfadden RN)2200 (Due) metoprolol succinate XL (Toprol-XL) 24 hr tablet 100 mg 100 mg, oral, Daily, First dose on Sat05/14/23 at 0900, Do not crush or chew. 0912 (Given - Provider: Sissy Mcfadden RN) 0910 (Given - Provider: Sissy Mcfadden RN) metoprolol tartrate (Lopressor) tablet 50 mg (COMPLETED) 50 mg, oral, 2 times daily, First dose (after last modification) on Sat05/11/23 at 2100, For 5 doses 0908 (Given - Provider: Sissy Mcfadden RN)2030 (Given - Provider: Mansi Shelley RN) multivitamin with minerals 1 tablet 1 tablet, oral, Daily, First dose on Sat05/10/23 at 1815 0908 (Given - Provider: Sissy Mcfadden RN) 0912 (Given - Provider: Sissy Mcfadden RN) 0910 (Given - Provider: Sissy Mcfadden RN) oxyCODONE (Roxicodone) immediate release tablet 20 mg (COMPLETED) 20 mg, oral, Once, On 05/13/23 at 2230, For 1 dose, If ordered PRN for pain, nurse is permitted to administer this medication for higher pain scores based on patient preference? Yes 2233 (Given - Provider: Mansi Shelley RN) pantoprazole (ProtoNix) EC tablet 40 mg(Linked Group 3) 40 mg, oral, Daily before breakfast, First dose on Sat05/08/23 at 0700, Do not crush, chew, or split. 0612 (Given - Provider: Wilberto Collins RN) 0512 (Given - Provider: Mansi Shelley RN) 05 (Given - Provider: Mansi Shelley RN) perflutren lipid microspheres (Definity) injection 0.5 mL (COMPLETED) 0.5 mL, intravenous, Once in imaging, Starting on Sat05/13/23 at 1100, For 1 dose, CV Medications, Contrast - for use by imaging provider only. Prior to administration, Definity product must be activated. First, bring vial to room temperature. Then, shake vial for 45 seconds. Do not use if the 45 second activation cycle has not been completed. Following activation, the product will appear as a milky white suspension and may be used immediately. If not used within 5 minutes of activation, re-suspend by inverting and shaking the vial for 10 seconds. Discard unused product. Administration: Dilute 1.3 mL of activated DEFINITY with 8.7 mL of normal saline in a 10 mL syringe. Inject 0.5 mL of diluted DEFINITY when notified the images/film are unclear to enhance view of Left Ventricular borders. Repeat 0.5 mL of DEFINITY until clear images are obtained, not to exceed 10 mLs. Once images are obtained or limit of medication is reached, flush line with 10 mL of Normal Saline. 1110 (Given - Provider: Mansi Aly RN - Comment: 3.5ml diluted definity given. Pt tolkerated well.) perflutren protein A microsphere (Optison) injection 0.5 mL 0.5 mL, intravenous, Once in imaging, Starting on Sat05/04/23 at 2152, For 1 dose polyethylene glycol (Glycolax, Miralax) packet 17 g 17 g, oral, 2 times daily, First dose (after last modification) on Sat05/08/23 at 2100, Bowel Regimen - for prevention of constipation. 0909 (Given - Provider: Sissy Mcfadden RN)2099 (Not Given - Provider: Mansi Shelley RN - Reason: Patient/family refused) 09 (Given - Provider: Sissy Mcfadden RN)2100 (Not Given - Provider: Mansi Shelley RN - Reason: Patient/family refused) 910 (Given - Provider: Sissy Mcfadden RN)2100 (Due) sacubitriL-valsartan (Entresto) 24-26 mg per tablet 0.5 tablet 0.5 tablet, oral, 2 times daily, First dose on Sat05/14/23 at 0900, Contraindicated in combination with GERARDO inhibitors. Ensure a minimum of 36 hours between any GERARDO inhibitor dose and sacubitril-valsartan. 0912 (Given - Provider: Sissy Mcfadden RN)2105 (Given - Provider: Mansi Shelley RN) 909 (Given - Provider: Sissy Mcfadden RN)2099 (Due) spironolactone (Aldactone) tablet 12.5 mg 12.5 mg, oral, Daily, First dose on Sat05/14/23 at 1130 1239 (Given - Provider: Sissy Mcfadden RN - Comment: workflow) 09 (Given - Provider: Sissy Mcfadden RN) PRN Medication Order 05/13/2023 05/14/2023 05/15/2023 naloxone (Narcan) injection 0.2 mg 0.2 mg, intravenous, Every 5 min PRN, respiratory depression, Starting on Sat05/07/23 at 2208, If respiratory rate is less than 8 breaths/minute or patient is difficult to arouse stop any narcotics and contact physician. Administer slow IV push. Repeat as ordered until patient's respiratory rate is greater than 12 breaths/minute. oxyCODONE (Roxicodone) immediate release tablet 15 mg 15 mg, oral, Every 4 hours PRN, pain moderate (4-6), first line, Starting on Sat05/10/23 at 0838, If ordered PRN for pain, nurse is permitted to administer this medication for higher pain scores based on patient preference? Yes 0201 (Given - Provider: Mansi Shelley RN)0639 (Given - Provider: Mansi Shelley RN)1837 (Given - Provider: Sissy Mcfadden RN) 0231 (Given - Provider: Mansi Shelley RN)1040 (Given - Provider: Sissy Mcfadden RN) oxyCODONE (Roxicodone) immediate release tablet 20 mg 20 mg, oral, Every 4 hours PRN, pain severe (7-10), first line, Starting on Sat05/10/23 at 0839, If ordered PRN for pain, nurse is permitted to administer this medication for higher pain scores based on patient preference? Yes 0123 (Given - Provider: Wilberto Collins RN)0611 (Given - Provider: Wilberto Collins RN)1134 (Given - Provider: Sissy Mcfadden RN)1535 (Given - Provider: Sissy Mcfadden RN)1927 (Given - Provider: Mansi Shelley, RN)2220 (Not Given - Provider: Mansi Shelley RN - Reason: Other - Comment: pulled med too early) 1047 (Given - Provider: Sissy Mcfadden RN)1437 (Given - Provider: Sissy Mcfadden RN)2234 (Given - Provider: Mansi Shelley RN) 0612 (Given - Provider: Mansi Shelley RN)1455 (Given - Provider: Sissy Mcfadden RN)1857 (Given - Provider: Sissy Mcfadden RN) Linked Groups Order Group 1: acetaminophen (Tylenol) tablet 650 mgJump to med 650 mg, oral, Every 4 hours, First dose on Sat05/07/23 at 2230
Use oral route if available.
If ordered PRN for pain, nurse is permitted to administer this medication for higher pain scores based on patient preference? Yes Or acetaminophen (Tylenol) suppository 650 mg (CANCELED) 650 mg, rectal, Every 4 hours, First dose on Sat05/07/23 at 2230
Use suppository only if oral route unavailable.
Group 2: aspirin chewable tablet 81 mgJump to med 81 mg, oral, Daily, First dose on Sat05/08/23 at 0900
HOLD for platelets LESS than 50,000.
Or aspirin chewable tablet 81 mg (CANCELED) 81 mg, oral, Daily, First dose on Sat05/08/23 at 0900
Use crushed chew tab per NG if unable to take orally. HOLD for platelets LESS than 50,000.
Or aspirin suppository 150 mg (CANCELED) 150 mg, rectal, Daily, First dose on Sat05/08/23 at 0900
Use rectal route if oral/NG routes unavailable. HOLD for platelets LESS than 50,000.
Group 3: pantoprazole (ProtoNix) EC tablet 40 mgJump to med 40 mg, oral, Daily before breakfast, First dose on Sat05/08/23 at 0700
Do not crush, chew, or split.
Or pantoprazole (ProtoNix) injection 40 mg (CANCELED) 40 mg, intravenous, Administer over 2 Minutes, Daily before breakfast, First dose on Sat05/08/23 at 0700
Give if unable to take by mouth.
FOR RECORDS PERTAINING TO PATIENTS WHO ARE OR HAVE BEEN ENROLLED IN A CHEMICAL DEPENDENCY/SUBSTANCEABUSE PROGRAM, SOME INFORMATION MAY BE OMITTED. This clinical summary was aggregated from multiple sources. Caution should be exercised in using it in the provision of clinical care. This summary normalizes information from multiple sources, and as a consequence, information in this document may materially change the coding, format and clinical context of patient data. In addition, data may be omitted in some cases. CLINICAL DECISIONS SHOULD BE BASED ON THE PRIMARY CLINICAL RECORDS. [employer] provides no warranty or guarantee of the accuracy or completeness of information in this document.
== END 2025-04-30 14:38 | disposition home or self-care (01) ==
LOC: RAD 14:41
PROVIDERS: PCP Family Medicine; Visit Provider Nurse Practitioner
DX: R06.02 Shortness of breath (principal); F17.200 Nicotine dependence, unspecified, uncomplicated
CPT/HCPCS: 71046

== ENCOUNTER 2025-07-12 15:46 | Emergency (ER) | payer OTHER, SELFPAY ==
[2025-07-12 15:55] VITALS: BP 129/68; PULSE 75; TEMP 36.8; O2SAT 100; BMI 31.8
--- NOTE | 2025-07-12 16:10 | XR_ITS ---
The [address] [address] Patient Name: MORGAN LATHAM MRN: [id number] date: 1965 Sex: M Assigned Patient Location: ER Current Patient Location: ED.MAIN Accession/Order Number: [id number] Exam Date: 07/12/2025 16:20 Report Date: 07/12/2025 16:41 At the request of: LENKA CÁRDENAS Procedure: XR hand LT min 3V LEFT HAND - 3 views COMPARISON: None REASON FOR EXAM: laceration, rule out foreign body FINDINGS: No fracture-dislocation identified. Moderate degenerative changes first MCP joint and CMC joint. Mild degenerative changes elsewhere. No radiopaque foreign body or soft tissue gas identified at site of injury. XR/XR hand LT min 3V IMPRESSION: NO ACUTE BONY INJURY. MODERATE DEGENERATIVE CHANGES INVOLVING THE FIRST DIGIT NO RADIOPAQUE FOREIGN BODY Impression dictated by: Robinson Browning M.D. 07/12/2025 4:41 PM Dictation Location: [place] [address] Electronically authenticated by: [id number] Y Date: 07/12/2025 16:41
--- NOTE | 2025-07-12 16:13 | ED_ITS ---
HPI HPI - General Adult General Chief complaint: Wound/Laceration Stated complaint: Wound on hand Time Seen by Provider: 07/12/25 16:01 Source: patient Mode of arrival: walk-in Limitations: no limitations History of Present Illness HPI narrative: Patient is a 59-year-old male with a PMH of STEMI on aspirin/Plavix that presents to the emergency department with complaints of laceration to the thenar eminence of his left hand. He is right-handed. He was butchering a deer and the blade slipped. He is up-to-date on his tetanus and states he has gotten it in the past 4 years. Bleeding is controlled on arrival. He is able to exhibit full motion of his thumb. Related Data Home Medications ?Medication ?Instructions ?Recorded ?Confirmed atenolol 50 mg tablet 50 mg PO DAILY 05/03/2304/06 atorvastatin 20 mg tablet 20 mg PO QPM 05/03/23 celecoxib 200 mg capsule 200 mg PO BID 05/03/2305/03 cetirizine 10 mg tablet 10 mg PO DAILY PRN allergy s ymptoms 05/03/23 05/03/23 duloxetine 30 mg capsule,delayed 30 mg PO DAILY 05/03/23 release fluticasone propionate 50 2 spray intranasal QAM 05/0305/03/23 mcg/actuation nasal spray,suspension gabapentin 300 mg capsule 300 mg PO TID 05/03/2305/03 mupirocin 2 % topical ointment 1 applic topical DAILY 05/03/23 05/03/23 omeprazole 40 mg capsule,delayed 40 mg PO BID 05/03/23 05/03/23 release oxycodone-acetaminophen 10 mg-325 1 tab PO QID PRN charly n 05/03/23 05/03/23 mg tablet aspirin 81 mg tablet,delayed mg 07/12/25 release clopidogrel 75 mg tablet mg 07/12/25 Previous Rx's ?Medication ?Instructions ?Recorded amoxicillin 875 mg-potassium 1 tab PO BID 7 days #14 t abs 07/12/25 clavulanate 125 mg tablet Allergies Allergy/AdvReac Type Severity Reaction Status Date / Time No Known Drug Allergies Allergy Verified 05/03/23 10:22 Opioid HPI Opioid Management Most Recent Opioid Data: Last Pain Scale 7 05/03/23, 10:53 Review of Systems ROS Status of ROS 10 or more systems reviewed and unremark able except as noted in history and below PFSH PFSH Social History Little interest or pleasure in doing things: not at all Feeling down, depressed, or hopeless: not at all Exam Narrative Exam Narrative: General: No distress, age-appropriate Skin: Warm, dry, no pallor. No rash. Approximately 2 cm laceration to the left thenar eminence, hemostatic Head: Normocephalic, atraumatic. Neck: Supple, non-tender. Eye: Pupils are equal, round and EOMI. No scleral icterus. Ears, Nose, Mouth, and Throat: No nasal mucosal hypertrophy. Oral mucosa is moist, no posterior oropharynx erythema, uvula is mid-line Cardiovascular: Regular Rate and Rhythm without murmur, gallop or rub. Respiratory: No accessory muscle use or respiratory distress. Musculoskeletal: Full ROM of all extremities, no calf or popliteal tenderness. Full flexion/extension of the CMP and IP joints of the left thumb. Less than 2- second capillary refill and sensation intact distally with light touch. 5/5 strength flexion/extension left thumb at IP and MCP joints Neurological: A&O x4. No cranial nerve dysfunction observed. No truncal atax ia. Moves all extremities. Sensation intact. Psychiatric: Cooperative and interactive. Normal mood and affect. Constitutional Vital Signs, click to edit/add: Last Vital Signs Temp 98.2 F 07/12/25 15:55 Pulse 75 07/12/25 15:55 Resp 18 07/12/25 15:55 BP 129/68 07/12/25 15:55 Pulse Ox 100 07/12/25 15:55 O2 Del Method Room Air 07/12/25 15:55 Documenting provider has reviewed patient's vital signs: yes Course Vital Signs Vital signs: Vital Signs Temperature 98.2 F 07/12/25 15:55 Pulse Rate 75 07/12/25 15:55 Respiratory Rate 18 07/12/25 15:55 Blood Pressure 129/68 07/12/25 15:55 Pulse Oximetry 100 07/12/25 15:55 Oxygen Delivery Method Room Air 07/12/25 15:55 Temperature 98.2 F 07/12/25 15:55 Pulse Rate 75 07/12/25 15:55 Respiratory Rate 18 07/12/25 15:55 Blood Pressure 129/68 07/12/25 15:55 Pulse Oximetry 100 07/12/25 15:55 Oxygen Delivery Method Room Air 07/12/25 15:55 Medical Decision Making MDM Narrative Medical decision making narrative: This is a 59-year-old male that presents to the ED with a left thenar eminence laceration from butchering a deer prior to arrival. He is on aspirin/Plavix but bleeding is controlled on arrival. He is up-to-date on his tetanus no obvious tendon exposure. There is full flexion/extension of the CMP and IP joints of the left thumb. Thenar eminence laceration - Tetanus up-to-date - X-ray left hand: No fracture, no dislocation no foreign body noted. - Laceration repaired at bedside, no tendon exposure, no range of motion deficits. Full ROM and 5/5 strength left thumb flexion/extension at IP and MCP joints. Patient was provided detailed wound care instructions, educated on signs of infection, and advised activity limitations to protect repair. Thumb spica brace provided for wound protection. - Started on Augmentin 875/125 mg twice daily x 7 days prophylactically given hand laceration while dealing with deer meat - Return precautions given, including worsening pain, redness, drainage, fever, or loss of function. - Follow-up with Orthopedics within a week for wound and ROM recheck, suture removal in 10-14 days. Differential Diagnosis Differential Diagnosis: Laceration, fracture, foreign body Imaging Data X-ray left hand: Attestation: I have reviewed the pertinent imaging results. Radiologist's impression: ITS Impressions Hand X-Ray 07/12/25 16:10 IMPRESSION: NO ACUTE BONY INJURY. MODERATE DEGENERATIVE CHANGES INVOLVING THE FIRST DIGIT NO RADIOPAQUE FOREIGN BODY Impression dictated by: Robinson Browning M.D. 07/12/2025 4:41 PM Dictation Location: [place] [address] Electronically authenticated by: [id number] Y Date: 07/12/2025 16:41 Discharge Plan Discharge Chief Complaint: Wound/Laceration Clinical Impression: Hand laceration Patient Disposition: Home, Self-Care Time of Disposition Decision: 17:25 Condition: Good Mode of Transportation: Private Vehicle Prescriptions / Home Meds: New amoxicillin-pot clavulanate 875-125 mg tablet 1 tab PO BID 7 Days Qty: 14 0RF No Action atenolol 50 mg tablet 50 mg PO DAILY atorvastatin 20 mg tablet 20 mg PO QPM celecoxib 200 mg capsule 200 mg PO BID cetirizine 10 mg tablet 10 mg PO DAILY PRN (Reason: allergy symptoms) duloxetine 30 mg capsule,delayed release(DR/EC) 30 mg PO DAILY fluticasone propionate 50 mcg/actuation spray,suspension 2 spray INTRANASAL QAM gabapentin 300 mg capsule 300 mg PO TID mupirocin 2 % ointment 1 applic TOPICAL DAILY omeprazole 40 mg capsule,delayed release(DR/EC) 40 mg PO BID oxycodone-acetaminophen 10-325 mg tablet 1 tab PO QID PRN (Reason: pain) clopidogrel 75 mg tablet aspirin 81 mg tablet,delayed release (DR/EC) Print Language: Sammarinese Additional Instructions: Keep the wound clean and dry: * For the first 24?48 hours, keep the dressing in place. * After 24?48 hours, you may gently wash around the area with mild soap and water. Pat dry. * Avoid soaking the hand in water (baths, swimming) until sutures are removed. Dressing changes: * Replace the dressing daily or if it becomes wet or dirty. * Use sterile gauze and medical tape or bandage. Avoid strain on the thumb/hand: * Limit heavy lifting, gripping, or using the injured hand for strenuous activity. * Gentle motion is allowed to prevent stiffness, but avoid stress on the sutured area. Monitoring for infection: * Watch for redness, swelling, warmth, pus, or increasing pain. * Fever or streaking up the arm should prompt urgent evaluation. Pain control: * Take acetaminophen or NSAIDs as needed, unless contraindicated by your heart medications. Suture removal: * See Orthopedics in a few days for wound and range of motion check. Sutures need to be removed in 10-14 days. * Do not attempt to remove sutures yourself. Activity modifications: * Avoid contact with raw meat or dirty surfaces until fully healed. * Keep hand elevated when possible for the first 24?48 hours to reduce swelling. Follow-up: * Orthopedic clinic for suture removal and wound assessment. * Return earlier if you notice signs of infection or if the wound opens. Referrals: Gulshan Her DO [Physician, Orthopedics] - 1 week Referral Note: Call for follow up, they have a [place] office day on Mondays. Juve Green MD [Primary Care Provider, [facility]] - 1 week Discharge Date/Time: 07/12/25 18:07 Procedures ED Laceration Laceration Laceration 1: Site: hand Side (if applicable): left Size (cm): 2 Description: linear Depth: simple, single layer Anesthetic used: lidocaine 1% Anesthesia technique: local infiltration Amount (ml): 5 Pre-repair: wound explored, irrigated extensively and deep structures intact Skin layer closed with: other (Prolene) Size (cm): 3-0 Number of sutures: 6 Technique: simple, interrupted
--- OUTSIDE RECORDS SUMMARY | 2025-07-12 16:34 | XMS_ITS | CCD ---
Author Organization [facility] Care Team Providers Care Human Resources Hr Generalist Name Role Phone Elsie Harper Unavailable MD Juve Mcpherson Primary Care Provider MD Elsie Harper Attending Provider [phone] Unknown, Referring Provider Unavailable Unav ailable Unavailable Unavailable Elsie Harper Unavailable Elsie Harper Primary Care Provider [phone] Dr. Guevara Coello Attending Nathalievai lable UNKNOWN, DrAziza PCP Primary Care Unavailable MD Juve Mcpherson Primary Care Provider [phone] MD Elsie Harper Attending Provider DR JUVE MCPHERSON Primary Care Unavailable RISHABH .RAMAN Admitting Unavailable RISHABH ., RAMAN Attending Unavailable RISHABH .RAMAN Consulting Unavailable NORMA, DR JUVE Todd Admitting Unavailable NADHUSSEIN, DR JUVE Todd Attending Unavailable NORMA, DR JUVE Todd Primary Care Unavailable MISC, DR GOLDBERG Admitting Unavailable MISC, DR GOLDBERG Attending Unavailable NORMA, DR JUVE Todd Primary Care Unavailable MISC, DR GOLDBERG Consulting Unavailable NORMA, DR JUVE Todd Admitting Unavailable NADEREAmadou, DR JUVE Todd Attending Unavailable NORMA, DR JUVE Todd Primary Care Unavailable NORMA, DR JUVE Todd Consulting Unavailable NORMA, DR JUVE Todd Admitting Unavailable NORMA, DR JUVE Todd Attending Unavailable NORMA, DR JUVE Todd Primary Care Unavailable ELSIE HARPER Admitting Unavailable MEREDITH, ELSIE Attending Unavailable NORMA, DR JUVE Todd Primary Care Unavailable Luzmaria Gong Primary Care Physician [phone] KimsLuzmaria H Referring Unavailable Luzmaria Gong H Attending Unavailable Nicolamis Luzmaria H Admitting Unavailable Unavailable Primary Care Provider Unavailabl e Generic Provider , No Assigned Pcp Primary Car e Provider Unavailable MD Juve Mcpherson Primary Care Provider DO Hetal Quick Admit Provider DO Hetal Quick Attending Provider PRANAV Larson Other Provider MD Cj Hathaway Other Provider MD Tani Jimenez Other Provider [phone] MD Tiara Olivarez Other Provider DO Jhon Garcia Other Provider [phone] MD Cassie Lott Other Provider MD Rene Balderas Other Provider MD Efren Rosales Other Provider DO Manpreet Lane Other Provider PRANAV Vaughn Attending Provider Generic Provider , No Assigned Pcp Primary Car e Provider Juve Mcpherson MD Primary Care Provider MD Juve Mcpherson Primary Care Provider PRANAV Ernandez Attending Provider MD Elsie Harper Attending Provider SUSNA BRAUN Attending Unavailable SUSAN BRAUN Admitting Unavailable Patient, Unavailable Referring Unavailable UNKNOWN, PCP Primary Care Unavailable UNKNOWN, PCP Primary Care Unavailable Dr. Alyssa Quick Attending Unava ilable UNKNOWN, PCP Primary Care Unavailable Dr. Luzmaria Gong Jr Referring U navailable SAUL GONZALES Attending Unavailable UNKNOWN, PCP Primary Care Unavailable Elsie Harper MD Unavailable [phone] Elsie Harper MD Primary Care Provider Juve Mcpherson MD Primary Care Provider Juve Mcpherson MD Primary Care Provider Elsie Harper MD Attending Provider Norma PINEDA, uJve Primary Care Provider Awais PINEDA, Rene Todd Emergency Provider Sabi Choudhury MD Admit Provider Xenia JEROME, Sherine Other Provider Unavailable Hetal Quick DO Other Provider Kylie PINEDA, Ashutosh Other Provider Holger PINEDA, Alyssa Allison Other Provider Mark PINEDA, Earnest Other Provider [phone] Alexa PINEDA, Joe Other Provider Odilia Ernandez APRN Other Provider Yessica Rondon MD Other Provider Tre PINEDA, Toni Bustos Other Provider Kade PINEDA, Susan Other Provider Aggie [facility], Tammy Santiago Other Provider Kermit Iraheta MD Attending Provider [phone] Ayesha Hunter DO Emergency Provider Sabi Choudhury [...] Other Provider Tani Jimenez MD Attending Provider [phone] Odilia Ernandez APRN Attending Provider [phone] NORMA, JUVE Attending Unavailable NADERER, JUVE Attending Unavailable NADERER, JUVE Attending Unavailable NADERER, JUVE Attending Unavailable NADERER, JUVE Attending Unavailable NADERER, JUVE Attending Unavailable Naderer , Juve Primary Care Provider Yvette Larson APRN Attending Provider [phone] Naderer, Juve Primary Care Unavailable Kermit Iraheta Attending Unavailable Evangelinachler, Sherine Consulting Unavailable Sabi Choudhury Admitting Unavailable Hetal Quick Consulting Unavailable Kylie, Ashutosh Consulting Unavailable Alyssa Wren Consulting Unavail able [...] Juve Primary Care Unavailable Awais, Odilia K Attending Unavailable Ernandez, Odilia K Admitting Unavailable Naderer, Juve Primary Care Unavailable Odilia Ernandez K Attending Unavailable Naderer, Juve Primary Care Unavailable Ernandez, Odilia K Admitting Unavailable Naderer, Juve Primary Care Unavailable Jud Hutchison Attending Unavailable Kei, Mohamad Admitting Unavailable Evangelinachler, Sherine Consulting Unavailable Xenia, Sherine Consulting Unavailable Hetal Quick Consulting Unavailable Kylie, Ashutosh Consulting Unavailable Alyssa Wren Consulting Unavail able Earnest Dyer Consulting Unavailable Joe Liu Consulting Unavailab Odilia Santos Consulting Unavailable Yessica Rondon Consulting Unavailable Toni Toledo Consulting Unavailab Susan Lopez Consulting Unavailable Tammy Marcial Consulting Unavailable Norma PINEDA, Juve Vergara Primary Care Provider Juve Mcpherson MD Primary Care Provider Thomas Patrick MD Attending Provider ODILIA ERNANDEZ Attending Unavailable ALYSSA QUICK Referring Unavailable JUVE MCPHERSON YUNIER Primary [facility] UnavailODILIA Tejada Attending Unavailable ODILIA ERNANDEZ Referring Unavailable NORMA, [facility] Primary [facility] UnavailSAUL Bright Attending Unavailable NORMA, [facility] UnavailALYSSA Waggoner Attending Unavailable ALYSSA QUICK Referring Unavailable NORMA, [facility] Primary [facility] UnavailSAUL Bright Attending Unavailable NORMA, [facility] Primary [facility] UnavailODILIA Tejada Attending Unavailable ODILIA ERNANDEZ Referring Unavailable NORMA, [facility] UnavailODILIA Tejada Attending Unavailable NORMA, [facility] UnavailJuve Juarez MD Primary Care Provider Odilia Ernandez APRN Referring Provider Juve Mcpherson MD Attending Provider [phone] Medications Current Medications MedicationDrug Class(es)DatesSig (Normalized)Sig (Original)acetaminophen 325 mg oral tablet (20 sources)Start: 05-15-2023 End: 33-23-1276qkyn 2 tablets by mouth every four hours for painacetaminophen (Tylenol) 325 mg tablet Indications: Post-op pain Take 2 tablets (650 mg) by mouth every 4 hours if needed for mild pain (1 - 3) or moderate pain (4 - 6). 05/15/2023 08/26/2024 Discontinued (Therapy completed)Start: 57-66-5604Ywaqq: 05-04-2023 End: 70-13-8522rmlv 975 mg by mouth every eight jaiiw897 mg, oral, Every 8 hours, First dose on 05/04/23 at 0500 If ordered PRN for pain, nurse is per mitted to administer this medication for higher pain scores based on patient preference? [id number] 200 actuat albuterol 0.09 mg/actuat metered dose inhaler (8 sources)beta2-Adrenergic AgonistStart: 57-27-6640kwma 2 puff(s) by inhalation every four hours for wheezingalbuterol HFA 90 mcg/act inhaler Indications: Chronic obstructive pulmonary disease, unspecified COPD type (HCC) Inhale 2 puffs every 4 (four) hours if needed for shortness of breath or wheezing 18 g2 03/26/2025 ActiveStart: 49-09-2377Nraxdhnkp Sulfate 90 mcg/actuation HFA aerosol inhaler Active 2 INH INHALATION EVERY 4-6 HOURS as needed for shortness of breath or wheezing 8.5 0 January 08, 2025 12:00am Complies with drug therapy albuterol 0.833 mg/ml / ipratropium bromide 0.167 mg/ml inhalation solution (2 sources)Anticholinergic, beta2-Adrenergic AgonistStart: mL, nebulization, Every 6 hours RT, First dose on 05/12/23 at 2100Start: 05-12-2023 End: 85-17-0375Ztyjvtho on 05/12/23 at 1638, For 1 dose Created by liudmila overrideaspirin 81 mg delayed release oral tablet (20 sources)Platelet Aggregation Inhibitor, Nonsteroidal Anti-inflammatory Drug Start: 05-15-2023 End: 24-22-0996mpjc 1 tablet by mouth once daily in the morningAspirin 81 mg tablet,delayed release (DR/EC) Active 81 MG PO Every morning January 14, 2024 12:00am Complies with drug therapyStart: 67-23-7466gpgs 81 mg by mouth once daily81 mg, oral, Daily, First dose on Sat05/08/23 at 0900 HOLD for platelets LESS than 50,000.Start: 05-04-2023 End: 25-88-7222gqem 81 mg by mouth once daily81 mg, oral, Daily, First dose on 05/04/23 at 1145 Do not crush, chew, or split.atorvastatin 80 mg oral tablet (20 sources)HMG-CoA Reductase InhibitorStart: 17-66-8576porh 1 tablet by mouth once daily in the morningAtorvastatin 80 mg tablet Active 80 MG PO Every morning January 14, 2024 12:00am Complies with drug therapyStart: 05-08-2023 End: 26-31-9094rnfo 1 tablet by mouth once dailyatorvastatin (Lipitor) 80 mg tablet Indications: Coronary arteriography abnormal Take 1 tablet (80 mg) by mouth once daily. 30 tablet 0 10/15/2023 ActiveStart: 05-04-2023 End: 91-84-2990fqyh 40 mg by mouth once daily40 mg, oral, Nightly, First dose on 05/04/23 at 2100Start: 07-25-2022 End: 74-32-8600ftlt 1 tablet by mouth once daily at bedtimeAtorvastatin 20 mg tablet Discontinued 20 MG PO Daily at bedtime September 20, 2022 1:00am July 09, 2024 9:07amLipitor TABS Quantity: 0 Refills: 0 Ordered: 16-Dec-2020 DO ActiveComment on above:TAKE 1 TABLET BY MOUTH EVERYDAY AT BEDTIME bisacodyl 10 mg rectal suppository (1 source)Stimulant LaxativeStart: 93-83-7641ehtc 10 mg rectal route once daily 10 mg, rectal, Daily, First dose on 05/13/23 at [id number] actuat budesonide 0.08 mg/actuat / formoterol fumarate 0.0045 mg/actuat metered dose inhaler (11 sources)Corticosteroid, beta2-Adrenergic AgonistStart: 19-81-0702ruie 2 puff(s) by mouth every twelve hoursBudesonide-Formoterol (Symbicort) 80-4.5 mcg/actuation HFA aerosol inhaler Active 0 .ROUTE .VEZEMHP56.6 4 May 05, 2025 11:55am Mild chronic obstructive pulmonary disease Chronic obstructive pulm onary disease, unspecified INHALE 2 PUFFS BY MOUTH ONCE EVERY 12 HOURS Complies with drug therapyStart: 04-13-2025 End: 00-22-2329Huvcwnfuxg-Formoterol (Symbicort) 80-4.5 mcg/actuation HFA aerosol inhaler Discontinued 2 INH INHALATION Every 12 hours 10.2 30 April 13, 2025 12:00am May 05, 2025 11:56am Mild chronic obstructive pulmonary disease Chronic obstructive pulmonary disease, unspecifiedStart: 04-13-2025 End: 22-59-8047Adcqmweuzm-Formoterol (Symbicort) 160-4.5 mcg/actuation HFA aerosol inhaler Discontinued INHALATIONSept2024 12:00am April 13, 2025 11:10amStart: 03-10-2025 End: 00-86-3551pjds 2 puff(s) by inhalation in the morningbudesonide-formoterol (Symbicort) 160-4.5 MCG/ACT inhaler Indications: Chronic obstructive pulmonary disease, unspecified COPD type (HCC) Inhale 2 puffs in the morning and 2 puffs in the evening. 03/10/2025 03/10/2026 ActiveStart: 03-10-2025 End: 14-50-3430lapm 2 puff(s) by mouth twice dailybudesonide-formoterol (Symbicort) 160-4.5 mcg/actuation inhaler Indications: Shortness of breath , C urrent smoker Inhale 2 puffs 2 times a day. Rinse mouth with water after use to reduce aftertaste and incidence of candidiasis. Do not swallow. 10.2 g 03/10/2025 03/10/2026 Activeclopidogrel 75 mg oral tablet (20 sources)P2Y12 Platelet InhibitorStart: 08-14-2023 End: 25-33-1611gqxq 1 tablet by mouth once daily in the morningClopidogrel 75 mg tablet Active 75 MG PO Every morning January 14, 2024 12:00am Complies with drug therapyStart: 05-09-2023 End: 15-75-0458jaan 1 tablet by mouth once dailyclopidogrel (Plavix) 75 mg tablet Indications: Coronary arteriography abnormal Take 1 tablet (75 mg) by mouth once daily. 30 tablet 0 06/18/2023 ActiveDULoxetine 60 mg delayed release oral capsule (20 sources)Serotonin and Norepinephrine Reuptake InhibitorStart: 56-12-3173aqok 1 capsule by mouth once daily in the morningDuloxetine 60 mg capsule,delayed release(DR/EC) Active 60 MG PO Every morning July 09, 2024 1:00am Complies with drug therapyStart: 08-06-2023 End: 95-30-9651dkwd 1 capsule by mouth once dailyDULoxetine (Cymbalta) [address] capsule Indications: MDD (major depressive disorder), recurrent episode, moderate (CMS/HCC) Take 1 capsule (60 mg) by mouth Daily Do not crush or chew. 30 capsule 5 05/11/2024 ActiveStart: 05-04-2023 End: 80-17-3748euko 20 mg by mouth twice daily20 mg, oral, 2 times daily, First dose on 05/04/23 at 0900 Do not crush or chew.Start: 09-20-2022 End: 44-35-5797nurn 1 capsule by mouth once daily in the morningDuloxetine 30 mg capsule,delayed release(DR/EC) Discontinued 30 MG PO Every morning September 20, 2022 1:00am July 09, 2024 9:11amDULoxetine (CYMBALTA) 30 mg capsule Take by mouth q 24 HR. ActiveComment on above:Take by mouth q 24 HR.dutasteride 0.5 mg oral capsule (1 source)5-alpha Reductase InhibitorStart: 67-35-8882ytyi 1 capsule by mouth once dailyDutasteride (Avodart) 0.5 mg capsule Active 0.5 MG PO Daily 01 01June 03, 2025 12:00am Complies with drug therapyfamotidine 40 mg oral tablet (3 sources)Histamine-2 Receptor AntagonistStart: 09-38-4191nwdq 1 tablet by mouth once daily at bedtimeFamotidine 40 mg tablet Active 40 MG PO Daily at bedtime April 13, 2025 12:00am Complies with drug therapy fluticasone propionate 0.05 mg/actuat metered dose nasal spray (20 sources)CorticosteroidStart: 02-06-2374jbme 2 spray(s) nasal route once daily in the morningfluticasone (Flonase) 50 MCG/ACT nasal spray Indications: Chronic pansinusitis 2 SPRAYS IN EACH NOSTRIL EVERY MORNING *SHAKE GENTLY BEFORE FIRST USE/PRIME/CLEAN TIP AFTER USE* 16 mL 11 02/08/2023 Active End: 32-69-6826qmdiofbbwfr (Flonase) 50 mcg/actuation nasal spray USE 2 SPRAYS IN EACH NOSTRIL EACH MORNING *SHAKEGENTLY BEFORE USE/PRIME/CLEAN TIP AFTER USE 0 06/18/2023 Discontinued (Therapy completed)furosemide 40 mg oral tablet (20 sources)Loop DiureticStart: 37-94-1973Yqmmpxnwqr (Lasix) 40 mg tablet Active 20 MG PO Daily January 29, 2025 12:00am Complies with drug therapyStart: 10-15-2023 End: 76-12-8046Qfpjrgvsiq Active 20 MG PO January 14, 2024 12:00amStart: 2023 End: 77-36-5604Oirzanqanj (Lasix) 40 mg tablet Discontinued 40 MG PO As Directed 30 30 2 January 08, 2025 12:04pm January 29, 2025 12:12pmStart: 05-15-2023 End: 66-83-0178penq 1 tablet by mouth once daily in the morningFurosemide 20 mg tablet Discontinued 20 MG PO Every morning January 14, 2024 12:00am November 20, 2024 12:15pmStart: 68-18-004646 mg, intravenous, Once, On Sat05/13/23 at 0815, For 1 doseStart: 63-32-091173 mg, intravenous, Once, On Sat05/10/23 at 0845, For 1 doseStart: 67-93-357533 mg, intravenous, Once, On Sat05/09/23 at 0900, For 1 dose1 ml heparin sodium, porcine 5000 unt/ml injection (3 sources)Unfractionated Heparin, Anti-coagulantStart: 19-78-1715uqynkz 5000 [IU] by subcutaneous injection every eight hours5,000 Units, subcutaneous, Every 8 hours, First dose on Sat05/08/23 at 1600Start: 05-04-2023 End: -4,000 Units/hr (0-40 mL/hr), intravenous, Continuous, Starting on Sat05/05/23 at 1545, Until Sat05/07/23 at 1623 Low Intensity Heparin Protocol (70-124kg) Initial Dose: 12 units/kg/hr = 1,400 Units/hr Maximum [...] HOLD heparin infusion for 1 hour, then DECREASErate by 200 units/hour. Heparin Assay, UFH > [...] 4 hours after dose reduction, resume nomogram. lamoTRIgine 100 mg oral tablet (20 sources)Mood Stabilizer, Anti-epileptic AgentStart: 09-89-7911fdhy 1 tablet by mouth once daily at bedtimeLamotrigine 100 mg tablet Active 100 MG PO Daily at bedtime May 25, 2025 12:00am Complies with drug therapyStart: 08-10-9861xsrm 1 tablet by mouth at bedtimelamoTRIgine (LaMICtal) 100 MG tablet Indications: Major depressive disorder, recurrent episode, moderate (HCC) Take 1 tablet (100 mg) by mouth at bedtime 90 tablet 3 03/26/2025 ActiveStart: 01-14-2024 End: 62-09-8605kfjz 2 tablets by mouth once daily at bedtimeLamotrigine 25 mg tablet Discontinued 50 MG PO Daily at bedtime January 14, 2024 12:00am May 25, 2025 2:26pmStart: 24-12-2606Cdzxedxlfqo Active 25 MG PO January 14, 2024 12:00amlevoFLOXacin 750 mg oral tablet (1 source)Quinolone AntimicrobialStart: 08-10-2024 End: 80-29-1548menu 1 tablet by mouth once dailylevoFLOXacin (Levaquin) 750 MG tablet Indications: Upper respiratory tract infection, unspecified type Take 1 tablet (750 mg) by mouth Daily for 7 days 7 tablet 08/10/2024 08/17/2024 Active lidocaine 0.04 mg/mg medicated patch (1 source)Antiarrhythmic, Amide Local AnestheticStart: 76-67-7039fauel 1 dose transdermal route once daily1 patch, transdermal, Administer over 12 Hours, Daily, First dose on Sat05/08/23 at 1045 Apply to chest. Patch will remain on for 12 hours, then removed for [address] patch directly overany surgical incisions or wounds.melatonin 5 mg oral tablet (2 sources)Start: 05-09-2023 End: 48-60-3771aphb 5 mg by mouth once daily5 mg, oral, Nightly, First dose on Sat05/10/23 at 2100methocarbamol 500 mg oral tablet (2 sources)Muscle RelaxantStart: 04-67-7569kbxp 500 mg by mouth every six hours 500 mg, oral, Every 6 hours scheduled, First dose on Sat05/10/23 at 0830Start: 05-08-2023 End: 50-65-1774bcdp 1000 mg intravenously every eight hours1,000 mg, intravenous, Administer over 5 Minutes, Every 8 hours, First dose on Sat05/08/23 at 025747 hr metoprolol succinate 100 mg extended release oral tablet (20 sources)beta-Adrenergic BlockerStart: 08-14-2023 End: 01-57-7927jnuo 1 tablet by mouth once daily in the morningMetoprolol Succinate 100 mg tablet extended release 24 hr Active 100 MG PO Every morning January 12:00am Complies with drug therapyStart: 05-14-2023 End: 11-02-0240omoi 1 tablet by mouth once dailymetoprolol succinate XL (Toprol- XL) 100 mg 24 hr tablet Indications: S/P CABG x 2 Take 1 tablet (100 mg) by mouth once daily. Do not crush or chew. 30 tablet 0 06/18/2023 ActiveStart: 05-11-2023 End: 94-83-1131nkwj 50 mg by mouth twice daily50 mg, oral, 2 times daily, First dose (after last modification) on 05/11/23 at 2100, For 5 dosesStart: 05-10-2023 End: 71-62-8949xgsx 25 mg by mouth twice daily25 mg, oral, 2 times daily, First dose (after last modification) on 05/10/23 at 2100Start: 05-09-2023 End: 69-83-5301vunu 12.5 mg by mouth twice daily12.5 mg, oral, 2 times daily, First dose on Yvrose 05/09/23 at 2100multivitamin with minerals tablet (20 sources)Start: 71-48-6994jwgs 1 tablet by mouth once dailymultivitamin with minerals tablet Indications: S/P CABG x 2 Take 1 tablet by mouth once daily. Do not start before May 16, 2023. 05/16/2023 ActiveStart: 33-13-3927oazd 1 tablet by mouth once dailymultivitamin with minerals tablet Indications: S/P CABG x 2 Take 1 tablet by mouth once daily. Do not start before May 16, 2023. 0 05/16/2023 ActiveNaloxone (1 source)Opioid AntagonistStart: .2 mg, intravenous, Every 5 min PRN, respiratory depression, Starting on Sat05/07/23 at 2208 If respiratory rate is less than 8 breaths/minute or patient is difficult to arouse stop any narcotics and contact physician. Administer slow IV push. Repeat as ordered until patient's respiratory rate is greater than 12 breaths/minute. nitroglycerin 0.4 mg sublingual tablet (12 sources)Nitrate VasodilatorStart: 46-52-8663Iewolutqnbpxm 0.4 mg tablet, sublingual Active 0.4 MG SUBLINGUAL every 5 to 15 minutes as needed April 13, 2025 12:00am Complies with drug therapyStart: 02-23-2025 End: 38-23-5967Tvbwhlglucgtz 0.4 mg tablet, sublingual Active 0.4 MG SUBLINGUAL every 5 to 15 minutes as needed April 13, 2025 12:00am Complies with drug therapyStart: 05-04-2023 End: 98-06-0445dkfl 1.5-60 mL intravenously every hour5-200 mcg/min (1.5-60 mL/hr), intravenous, Continuous, Starting on 05/04/23 at 0300 5 mcg/min = 1 .5mL/hr Titration Goal: Use Adult Parameters Target Parameter: MAP 60 to 70 Initial dose: 5 mcg/minBidirectional Titration Dose: 5 mcg/min Titration Frequency: Every 3 minutesomeprazole 40 mg delayed release oral capsule (20 sources)Proton Pump InhibitorStart: 99-48-7029btrb 1 capsule by mouth twice dailyOmeprazole 40 mg capsule,delayed release(DR/EC) Active 40 MG PO Twice daily September 20, 2022 1:00am Complies with drug therapyStart: 07-06-2022 End: 42-74-3941kkrv 1 capsule by mouth once daily in the morningOmeprazole 40 mg capsule,delayed release(DR/EC) Active 40 MG PO Every morning September 20, 2022 1:00amComment on above:Take 40 mg by mouth twice daily.oxyCODONE hydrochloride 5 mg oral tablet (20 sources)Opioid AgonistStart: 59-83-6090sgrr 1 tablet by mouth every four hours for painoxyCODONE (Roxicodone) 5 mg immediate release tablet Indications: Post-operative pain Take 1 tablet(5 mg) by mouth every 4 hours if needed for severe pain (7 - 10). 25 tablet 02/28/2024 ActiveStart: 05-13-2023 End: 51-91-9232yqdq 20 mg by mouth once for pain20 mg, oral, Once, On 05/13/23 at 2230, For 1 dose If ordered PRN for pain, nurse is permitted to administer this medication for higher pain scores based on patient preference? YesStart: 02-92-1582nrln 20 mg by mouth every four hours as baritg53 mg, oral, Every 4 hours PRN, pain severe (7-10), first line, Starting on Sat05/10/23 at 0839 If ordered PRN for pain, nurse is permitted to administer this medication for higher pain scores based on patient preference? YesStart: 05-09-2023 End: 23-90-7616ungy 15 mg by mouth every four hours as zyygir04 mg, oral, Every 4 hours PRN, pain moderate (4-6), first line, Starting on Sat05/10/23 at 0838 If ordered PRN for pain, nurse is permitted to administer this medication for higher pain scores basedon patient preference? YesStart: 05-08-2023 End: 87-54-2558jwvz 10 mg by mouth every four hours as mg, oral, Every 4 hours PRN, pain moderate (4-6), first line, Starting on Sat05/08/23 at 1042, Recovery & On Unit If ordered PRN for pain, nurse is permitted to administer this medication for higher pain scores based on patient preference? YesStart: 05-04-2023 End: 24-08-0770gggn 5 mg by mouth every six hours as needed5 mg, oral, Every 6 hours PRN, pain severe (7-10), first line, Starting on Sat05/04/23 at 0257 If or dered PRN for pain, nurse is permitted to administer this medication for higher pain scores based on patient preference? Yespantoprazole 40 mg delayed release oral tablet (15 sources)Proton Pump InhibitorStart: 05-16-2023 End: 83-94-6583iics 1 tablet by mouth before mealtimepantoprazole (ProtoNix) 40 MG EC tablet Take 40 mg by mouth in the morning. Take before meals. 05/16/2023 04/23/2024 DiscontinuedStart: 05-04-2023 End: 57-45-4163avot 40 mg by mouth once daily before aqyxrbqwy91 mg, oral, Daily before breakfast, First dose on Sat05/08/23 at 0700 Do not crush, chew, or split.sacubitril 49 mg / valsartan 51 mg oral tablet (20 sources)Angiotensin 2 Receptor BlockerStart: 89-49-5089speh 1 tablet by mouth in the morningEntresto 97-103 MG tablet Take 1 tablet by mouth in the morning and 1 tablet before bedtime. 01/08/2025 ActiveStart: 01-08-2025 End: 98-24-2219bkzx 1 tablet by mouth twice dailySacubitril-Valsartan (Entresto) 97-103 mg tablet Discontinued 1 TAB PO Twice daily 60 0 January 08, 2025 12:00am April 13, 2025 10:14amStart: 34-19-3485Ckxyukbxkt-Valsartan (Entresto) 49- 51 mg tablet Active 1 TAB PO January 14, 2024 12:00amStart: 09-03-2023 End: 43-34-2166wmqm 1 tablet by mouth twice dailySacubitril-Valsartan (Entresto) 49-51 mg tablet Discontinued 1 TAB PO Twice daily January 14, 2024 12:00am January 08, 2025 2:05pmStart: 05-14-2023 End: 52-82-3309Fxpwl: 05-14-2023 End: 87-96-5137vjfn 1 tablet by mouth twice dailysacubitriL-valsartan (Entresto) 24-26 mg tablet Indications: Cardiomyopathy, ischemic , Congestive heart failure, NYHA class 2 and ACC/AHA stage C (CMS/HCC) Take 1 tablet by mouth 2 times a day. 180 tablet 3 07/09/2023 07/08/2024 ActiveSertraline (3 sources)Serotonin Reuptake Inhibitortake 10 mg by mouth once dailysertraline HCl (ZOLOFT ORAL) Take 10 mg by mouth once daily. 0 Activespironolactone 50 mg oral tablet (20 sources)Aldosterone AntagonistStart: 10-71-1581dbea 1 tablet by mouth once dailySpironolactone (Aldactone) 50 mg tablet Active 50 MG PO Daily 30 5 April 08, 2025 12:00am Complies with drug therapyStart: 25-89-2567ukjf 1 tablet by mouth once dailyspironolactone (Aldactone) 50 MG tablet Indications: Chronic HFrEF (heart failure with reduced ejection fraction) (FORMERLY [facility]) Take 1 tablet (50 mg) by mouth Daily 30 tablet 5 02/25/2025 ActiveStart: 03-12-2024 End: 40-52-8101pkur 1 tablet by mouth once daily in the morningSpironolactone 25 mg tablet Discontinued 25 MG PO Every morning January 14, 2024 12:00am January 29, 2025 12:08pmStart: 08-14-2023 End: 22-41-0880qzrz 0.5 tablet by mouth once dailyspironolactone (Aldactone) 25 mg tablet Indications: HFrEF (heart failure with reduced ejection fraction) (CMS/HCC) Take 0.5 tablets (12.5 mg) by mouth once daily. 45 tablet 3 08/14/2023 10/15/2023 Discontinued (Dose adjustment)Start: 05-16-2023 End: 19-29-5296tzoe 0.5 tablet by mouth once dailyspironolactone (Aldactone) 25 mg tablet Indications: HFrEF (heart failure with reduced ejection fraction) (CMS/HCC) Take 0.5 tablets (12.5 mg) by mouth once daily. 15 tablet 0 06/18/2023 ActiveStart: 31-63-4033wmkl 12.5 mg by mouth once daily12.5 mg, oral, Daily, First dose on Sat05/14/23 at 1130Start: 05-06-2023 End: 76-12-0013wesj 12.5 mg by mouth once daily12.5 mg, oral, Daily, First dose on Sat05/06/23 at 0930triamcinolone acetonide 5 mg/ml topical cream (20 sources)CorticosteroidStart: 52-45-9944pvfrtfhveifcz (Kenalog) 0.5 % cream Indications: Dyshidrotic eczema APPLY TO AFFECTED AREA 3 TIMES A DAY 60 g 2 11/24/2024 ActiveStart: 28-24-3131Dttbhdyseeobd Acetonide 0.5 % cream Active 1 APPLIC TOPICAL Daily as needed for rash July 09, 2024 1:00am Complies with drug therapyStart: 38-16-2036yqoevfewaqiwa (Kenalog) 0.5 % cream Indications: Dyshidrotic eczema Apply topically 3 (three) timesa day 60 g 2 07/07/2024 Active Start: 35-68-9619Fedzuhr-40 Jan, 40 mgStart: 32-71-2667Dhonlig -40 mg Jul, 40 mgStart: 99-37-0949Siukedu -40 mg Mar, 40 mg End: 89-08-5043wwhpfmtuksner (Kenalog) 0.5 % cream Apply topically 3 times a day. 03/10/2025 Discontinued (Discontinued by another clinician) (2 sources)Start: 82-23-2465Picgd: 26-91-0813ppmh 1 tablet by mouth once daily1 tablet, oral, Daily, First dose on Sat05/10/23 at 1815 Completed/Discontinued Medications MedicationDrug Class(es)DatesSig (Normalized)Sig (Original)acetaminophen 325 mg / oxyCODONE hydrochloride 10 mg oral tablet (20 sources)Opioid AgonistStart: 01-06-2025 End: 91-02-9713Yyosgaldg-Acetaminophen 10-325 mg tablet Discontinued 1 TAB PO .Q4 as needed for pain (scale score 7-10) 180 30 0 April 12, 2025 May 13, 2025 9:11am Spondylosis of lumbar spine Spondylosis without myelopathy or radiculopathy, lumbar regionStart: 07-14-2024 End: 33-24-4008zqzd 1 tablet by mouth every four to six hours as needed for pain Oxycodone-Acetaminophen (Percocet) 5-325 mg tablet Discontinued 1 TAB PO EVERY 4-6 HOURS as needed for pain 20 5 0 July 14, 2024 November 18, 2024 6:20pm 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 Dispense quantity of twenty tablets Z96.612Start: 97-90-5763jagw 1 tablet by mouth every four hours as needed for painPercocet 5- 325 MG 1 tablet as needed for pain Orally up to every 4 hrs for 5 days ESME: [id number] ActiveStart: 09-20-2022 End: 61-10-3558jktn 1 tablet by mouth every four hours as needed for pain Oxycodone-Acetaminophen 10-325 mg tablet Discontinued 1 TAB PO Every 4 hours as needed for Pain September 20, 2022 1:00am November 20, 2024 12:15pmStart: 08-01-2022 End: 74-87-3745Eabomzsyk-Acetaminophen 10-325 mg tablet Discontinued TAB May 03, 2023 12:00am May 03, 2023 2:53pmStart: 09-13-8514ufwn 1 tablet by mouth four times daily as neededoxyCODONE-acetaminophen (PERCOCET 10) 10-325 mg tablet TAKE 1 TABLET BY MOUTH 4 TIMES A DAY NEEDED 08/01/2022 ActiveoxyCODONE-Acetaminophen 5-325 MG Oral Tablet Quantity: 0 Refills: 0 Ordered: 16-Dec-2020 DO Activetake 1 tablet by mouth every six hoursoxyCODONE- Acetaminophen 5-325 MG 1 tablet as needed Orally every 6 hrs ActiveComment on above:TAKE 1 TABLET BY MOUTH 4 TIMES A DAY [id number] ml albumin human, longterm 250 mg/ml injection (1 source)Human Serum AlbuminStart: 05-08-2023 End: g, intravenous, at 100 mL/hr, Administer over 60 Minutes, Once, On Sat05/08/23 at 1430, For 1 doseamoxicillin 875 mg / clavulanate 125 mg oral tablet (6 sources)Penicillin-class AntibacterialStart: 12-09-2024 End: 22-48-8100mmva 1 tablet by mouth twice dailyamoxicillin-clavulanate (Augmentin) 875-125 mg tablet Indications: Chronic maxillary sinusitis Take1 tablet by mouth 2 times a day for 14 days. 28 tablet 12/09/2024 12/11/2024 Discontinued (Therapy completed)Start: 08-12-2024 End: 97-39-8876oncw 1 tablet by mouth twice dailyamoxicillin-pot clavulanate (Augmentin) 875-125 mg tablet Indications: Chronic maxillary sinusitis Take 1 tablet (875 mg) by mouth 2 times a day for 14 days. 28 tablet 08/12/2024 08/26/2024 Discontinued (Therapy completed)Start: 05-27-2024 End: 02-50-9914plhc 1 tablet by mouth twice dailyamoxicillin-pot clavulanate (Augmentin) 875-125 mg tablet Indications: Chronic maxillary sinusitis Take 1 tablet (875 mg) by mouth 2 times a day for 10 days. 20 tablet 05/27/2024 06/06/2024 ExpiredStart: 01-15-2024 End: 54-66-1508mpet 1 tablet by mouth twice dailyamoxicillin-pot clavulanate (Augmentin) 875-125 mg tablet Indications: Chronic maxillary sinusitis Take 1 tablet (875 mg) by mouth 2 times a day for 10 days. 20 tablet 01/15/2024 01/25/2024 Activeatenolol 50 mg oral tablet (20 sources)beta-Adrenergic BlockerStart: 07-30-2022 End: 55-08-6088bcbf 1 tablet by mouth once daily in the morningAtenolol 50 mg tablet Discontinued 50 MG PO Every morning September 20, 2022 1:00am November 20, 2024 12:15pmAtenolol TABS Quantity: 0 Refills: 0 Ordered: 16-Dec-2020 DO ActiveComment on above:Take 50 mg by mouth once daily.calcium chloride 0.0014 meq/ml / potassium chloride 0.004 meq/ml / sodium chloride 0.103 meq/ml / sodium lactate 0.028 meq/ml injectable solution (3 sources)Start: 05-07-2023 End: 23-69-9302416 mL, intravenous, at 125 mL/hr, Administer over 2 Hours, Once, On Sat05/08/23 at 0130, For 1 doseStart: 05-07-2023 End: 20-82-5502jwtb 5 mL intravenously every hour5 mL/hr, intravenous, Continuous, Starting on Sat05/07/23 at 2230, Recovery & On Atew023 ml calcium gluconate 20 mg/ml injection (1 source)Start: 05-08-2023 End: 98-42-0146bjzj 2 g intravenously every six hours as needed2 g, intravenous, at 100 mL/hr, Administer over 1 Hours, Every 6 hours PRN, ionized calcium level 0.7 - 0.8 mmol/L, Starting on Sat05/08/23 at 1850carvedilol 3.125 mg oral tablet (2 sources)alpha-Adrenergic Osiris, beta-Adrenergic BlockerStart: 05-05-2023 End: 42-87-8161Kpopzuzm on Sat05/05/23 at 2237, For 1 dose Mckenzie Reyes: cabskylert overrideStart: 05-05-2023 End: 36-43-5961lmuv 6.25 mg by mouth twice daily6.25 mg, oral, 2 times daily, First dose on Sat05/05/23 at 0800ceFAZolin 2000 mg injection (1 source)Cephalosporin AntibacterialStart: 05-08-2023 End: 39-01-2094igpg 2 g intravenously every eight hours2 g, intravenous, Administer over 30 Minutes, Every 8 hours, First dose on Sat05/08/23 at 0445, For5 doses, Recovery & On Unit premix bag Dosing of this medication varies based on severity of illness. Does this patient have sepsis or concern for sepsis (probable or documented infection plus systemic manifestations of infection)? No Suspected Indication (Select all that apply): Surgical Prophylaxiscelecoxib 200 mg oral capsule (20 sources)Nonsteroidal Anti-inflammatory DrugStart: 08-17-2022 End: 53-95-7719grgl 1 capsule by mouth twice dailyCelecoxib 200 mg capsule Discontinued 200 MG PO Twice daily September 20, 2022 1:00am January 14, 2024 11:25amComment on above:Take 1 capsule by mouth twice daily.cephalexin 500 mg oral capsule (11 sources)Cephalosporin AntibacterialStart: 07-14-2024 End: 24-33-5028zdwr 1 capsule by mouth every eight hoursCephalexin 500 mg capsule Discontinued 500 MG PO Every 8 hours 6 0 July 14, 2024 1:00am 2024 6:20pmcetirizine hydrochloride 10 mg oral tablet (20 sources)Histamine-1 Receptor AntagonistStart: 02-06-2023 End: 23-88-4460Waazmjniqn 10 mg tablet Discontinued 10 MG PO January 14, 2024 12:00am July 09, 2024 9:08amchlorhexidine gluconate 1.2 mg/ml mouthwash (1 source)Start: 05-05-2023 End: 36-78-4974joju 1 dose by mouth twice daily15 mL, Mouth/Throat, 2 times daily, First dose on Sat05/05/23 at 2100, For 4 doses, Preprocedure Swish and spit One dose evening prior to surgery and one dose morning of surgery.50 ml clevidipine 0.5 mg/ml injection (2 sources)Dihydropyridine Calcium Channel BlockerStart: 05-09-2023 End: -16 mg/hr (2-32 mL/hr), intravenous, Continuous, Starting on Yvrose 05/09/23 at 1015 Titration Goal: Use Adult Parameters Target Parameter: MAP 60 to 80 Initial dose: 1 mg/hr Bidirectional Titration Dose: 50 % or less of hourly dose Titration Frequency: 90 secondsStart: 05-07-2023 End: 08-83-5190pmlykskvvej, Continuous PRN, Starting on Sat05/07/23 at 1711, Anesthesia IntraprocedureCymbalta CPEP (4 sources)Cymbalta CPEP Quantity: 0 Refills: 0 Ordered: 16-Dec-2020 DO Active 100 ml dexmedetomidine 0.004 mg/ml injection (2 sources)Central alpha-2 Adrenergic AgonistStart: 05-08-2023 End: 35-91-0076svod 4.9-36.71 mL intravenously every hour0.2-1.5 mcg/kg/hr 97.9 kg (4.895-36.7125 mL/hr, rounded to 4.9-36.71 mL/hr), intravenous, Continuous, Starting on Sat05/08/23 at 0500 Use along with analgesia regimen Titration Goal: Use Adult Parameters Target Parameter: RASS 0 to -2 Initial dose: 0.2 mcg/kg/hr Bidirectional Titration Dose: 25 % Titration Frequency: Every 30 minutes diclofenac sodium 75 mg delayed release oral tablet (10 sources)Nonsteroidal Anti-inflammatory DrugStart: 12-25-2022 End: 49-31-9250lgjvwryplw (Voltaren) 75 mg EC tablet Take by mouth. 0 02/25/2023 07/02/2023 Discontinued (Discontinued by another clinician)take 1 tablet by mouth twice daily as neededVoltaren 75 MG 1 tablet as needed Orally Twice a day for 30 days ActiveComment on above:TAKE 1 TABLET BY MOUTH TWICE A DAY NEEDED FOR 30 DAYSdocusate sodium 100 mg oral capsule (8 sources)Start: 05-08-2023 End: 90-97-0546bast 1 capsule by mouth twice daily as needed for constipation docusate sodium (Colace) 100 mg capsule Indications: S/P CABG x 2 Take 1 capsule (100 mg) by mouth 2 times a day as needed for constipation. 0 05/15/2023 07/02/2023 Discontinued (Med List Cleanup)Drug or medicament (substance) (1 source)Start: 05-08-2023 End: 19-65-9123kmdqmtxmrh, Continuous PRN - O2/gases, other, Starting on Sat05/08/23 at 1414 Device: Ventilator FIO2: 40empagliflozin 10 mg oral tablet (20 sources)Sodium-Glucose Cotransporter 2 InhibitorStart: 12-11-2024 End: 88-53-3139nvlz 1 tablet by mouth once dailyEmpagliflozin 10 mg tablet Discontinued 10 MG PO Daily 30 0 January 08, 2025 12:00am June 03, 2025 2:43pmStart: 08-14-2023 End: 87-40-1321Ddlhcjiyqyuzp (Jardiance) 10 mg tablet Discontinued 10 MG PO January 14, 2024 12:00am July 09, 2024 9:08amStart: 05-13-2023 End: 62-86-5627ppxc 1 tablet by mouth once dailyempagliflozin (Jardiance) 10 mg Indications: Acute systolic heart failure (CMS/HCC) Take 1 tablet (10 mg) by mouth once daily. 30 tablet 0 06/18/2023 Activeergocalciferol 1.25 mg oral capsule (20 sources)Provitamin D2 CompoundStart: 08-18-2022 End: 46-47-1948lgso 1 capsule by mouth two times weeklyErgocalciferol (Vitamin D2) 1,250 mcg (50,000 unit) capsule Discontinued 1250 MCG PO Twice a Week [facility] 2022 1:00am July 09, 2024 9:09amtake 1 capsule by mouth every weekergocalciferol (Vitamin D2) 1.25 MG (81078 UT) capsule Take 50,000 Units by mouth 1 (one) time per week. ActiveComment on above:(take by mouth with food twice a week, ONE CAPSULE ON SATURDAY AND ONE ON SATURDAY) FOR A TOTAL OF 8 WEEKS. gabapentin 300 mg oral capsule (20 sources)Anti-epileptic AgentStart: 01-14-2024 End: 18-92-5768Iwqzbavzlc 300 mg capsule Discontinued 300 MG PO January 14, 2024 12:00am July 09, 2024 9:09amStart: 55-15-9093akjo 300 mg by mouth every eight bmlan864 mg, oral, Every 8 hours, First dose on Yvrose 05/09/23 at 1045 Capsules may be opened and sprinkledon food (eg, applesauce, orange juice, puddingStart: 27-66-6100dxjwzvejsa (NEURONTIN) 300 mg capsule TAKE 1 CAP BY MOUTH AT BEDTIME DAY 1,THEN 1 CAP TWICE DAILY DAY 2,THEN 1 CAP 3 TIMES DAILY 01/16/2023 ActiveStart: 01-16-2023 End: 54-31-7728zvgq 1 capsule by mouth three times dailygabapentin (Neurontin) 300 mg capsule Take 1 capsule (300 mg) by mouth 3 times a day. 0 01/16/2023 1 08/18/2022 Discontinued (Therapy completed)take 2 capsules by mouth every eight hoursGabapentin 300 MG 2 capsules Orally tid for 30 days ActiveGabapentin TABS Quantity: 0 Refills: 0 Ordered: 16-Dec-2020 DO ActiveComment on above:TAKE 1 CAP BY MOUTH AT BEDTIME DAY 1,THEN 1 CAP TWICE DAILY DAY 2,THEN 1 CAP 3 TIMES DAILY 2 ml glycopyrrolate 0.2 mg/ml injection (1 source)Start: 05-08-2023 End: .4 mg, intravenous, Once, On Sat05/08/23 at 0145, For 1 dose12 hr guaiFENesin 600 mg extended release oral tablet (10 sources)Start: 11-20-2024 End: 35-61-5392llyx 1 tablet by mouth twice daily as needed for congestion Guaifenesin 600 mg Tablet Extended Release 12hr Discontinued 600 MG PO Twice daily as needed for Congestion 28 14 0 November 20, 2024 12:00am May 25, 2025 2:26pmStart: 05-06-2023 End: 67-64-8434tgym 600 mg by mouth twice daily as needed for rqvix537 mg, oral, 2 times daily PRN, cough, Starting on 05/06/23 at 1228 Administer with plenty of fluids to ensure proper action. Do not crush, chew, or split. hydrALAZINE hydrochloride 25 mg oral tablet (8 sources)Arteriolar VasodilatorStart: 05-09-2023 End: 23-82-3481igyi 25 mg by mouth every eight hours25 mg, oral, Every 8 hours, First dose (after last modification) on Sat05/09/23 at 1830Start: 05-09-2023 End: 19-21-116208 mg, intravenous, Once, On Sat05/09/23 at 1730, For 1 dose Start: 05-09-2023 End: 02-34-1386yvlh 10 mg by mouth every eight hours10 mg, oral, Every 8 hours, First dose (after last modification) on Sat05/09/23 at 1030Start: 05-09-2023 End: 49-52-5133dtyp 10 mg intravenously every four hours as wcqidg37 mg, intravenous, Every 4 hours PRN, MAP > 80, Starting on Sat05/09/23 at 1340Start: 05-08-2023 End: 92-37-9117Wxzmnxjf on Sat05/08/23 at 1240, For 1 dose Elma Chung: liudmila overrideStart: 05-08-2023 End: 86-97-5455iygv 10 mg intravenously every six hours as vpzirc86 mg, intravenous, Every 6 hours PRN, MAP > 90mmHg, Starting on Sat05/08/23 at 1239 Start: 05-05-2023 End: 75-36-1554hxme 10 mg by mouth three times daily10 mg, oral, 3 times daily, First dose on Sat05/05/23 at 78892 ml HYDROmorphone hydrochloride 1 mg/ml cartridge (3 sources)Opioid AgonistStart: 05-09-2023 End: .4 mg, intravenous, Every 2 hour PRN, pain breakthrough, pain severe (7-10), second line, Startingon Sat05/09/23 at 1029Start: 05-08-2023 End: .4 mg, intravenous, Every 15 min PRN, pain severe (7-10), first line, Starting on Sat05/08/23 at 1042, Recovery & On UnitStart: 05-07-2023 End: .2 mg, intravenous, Every 15 min PRN, pain severe (7-10), first line, Starting on Sat05/07/23 at 2208, Recovery & On UnithydrOXYzine hydrochloride 25 mg oral tablet (1 source)AntihistamineStart: 05-05-2023 End: 97-67-0943nlyv 25 mg by mouth once25 mg, oral, Once, On 05/05/23 at 2130, For 1 doseibuprofen 800 mg oral tablet (2 sources)Nonsteroidal Anti-inflammatory DrugStart: 08-31-2020 End: 08-30-9772rkkhzoyiv 800 mg tablet 1 tablet with food or milk as needed 0 08/31/2020 06/18/2023 Discontinued (Therapy completed)insulin lispro 100 unt/ml injectable solution (2 sources)Insulin AnalogStart: 05-07-2023 End: -15 Units, subcutaneous, Every 4 hours, First dose on Sat05/07/23 at 2230, Recovery & On Unit For BG = 0- 70: Notify provider AND initiate hypoglycemia management interventions For BG = 71-140: zero units (at goal) For BG = 141-180: 5 units For BG = 181-220: 10 units For BG = 221-260: 15 unitsFor BG GREATER 260: Notify provider Notify provider IF: TWO CONSECUTIVE draws are GREATER than 200Start: 05-04-2023 End: -10 Units, subcutaneous, 3 times daily before meals, First dose on Sat05/04/23 at 0700 Insulin Lispro Mild Corrective Scale Hypoglycemia protocol Call LIP unit(s) if Blood Glucose is between 0 - 70 mg/dL 0 unit(s) if Blood Glucose is between 71 - 150 2 unit(s) if Blood Glucose is between 151 - 200 &am p;nbsp; 4 unit(s) ifBlood Glucose is between 201 - 250 &n bsp; 6 unit(s) if Blood Glucose is between 251 - 300 &nbsp ; 8 unit(s) if Blood Glucose is between 301 - 350 &a mp;nbsp; 10 unit(s) if Blood Glucose is between 351 - 400 Notify provider unit(s) if Blood G lucose is greater than 400 mg/dL 24 hr isosorbide mononitrate 30 mg extended release oral tablet (12 sources)Nitrate VasodilatorStart: 04-13-2025 End: 89-59-5798etmz 1 tablet by mouth every twenty-four hoursIsosorbide Mononitrate 30 mg tablet extended release 24 hr Discontinued MG PO April 13, 2025 12:00am May 25, 2025 2:29pmStart: 02-23-2025 End: 55-83-8716vzrl 1 tablet by mouth once dailyIsosorbide Mononitrate 30 mg tablet extended release 24 hr Active MG PO Daily May 25, 2025 2:27pm TAKE ONE TABLET BY MOUTH ONCE DAILY -DO NOT CRUSH OR CHEW Complies with drug therapy isosorbide dinitrate 20 mg oral tablet (1 source)Nitrate VasodilatorStart: 05-05-2023 End: 10-31-6399tuib 20 mg by mouth three times daily20 mg, oral, 3 times daily (0900,1400,1900), First dose on 05/05/23 at 1415losartan potassium 25 mg oral tablet (1 source)Angiotensin 2 Receptor BlockerStart: 05-12-2023 End: 40-40-1755yueo 25 mg by mouth once daily25 mg, oral, Daily, First dose on 10/8/23 at 835401 ml magnesium sulfate 40 mg/ml injection (1 source)Start: 05-08-2023 End: 45-09-8125njdn 2 g intravenously every six hours as needed2 g, intravenous, at 25 mL/hr, Administer over 2 Hours, Every 6 hours PRN, magnesium level 1.7- 1.9 mg/dL, Starting on Sat05/08/23 at 1850metOLazone 5 mg oral tablet (1 source)Thiazide-like DiureticStart: 05-10-2023 End: 95-96-1686mthg 5 mg by mouth once daily5 mg, oral, Daily, First dose on Sat05/10/23 at 0900, For 1 doseMultivitamin tablet (11 sources)Start: 07-09-2024 End: 25-01-4044dojm 1 tablet by mouth once daily in the morningMultivitamin tablet Discontinued 1 TAB PO Every morning July 09, 2024 1:00am June 03, 2025 2:43pmStart: 01-92-0444uflx 1 tablet by mouth once daily in the morningStart: 13-75-3108ykuz 1 tablet by mouth once daily in the morning Multivitamin tablet Active 1 TAB PO Every morning July 09, 2024 1:00am Complies with drug therapyStart: 50-63-6440sdvz 1 tablet by mouth once daily in the morningMultivitamin tablet Active 1 TAB PO Every morning July 09, 2024 1:00amStart: 64-36-6348exya 1 tablet by mouth once daily in the morning Multivitamin tablet Active 1 TAB PO Every morning July 09, 2024 12:00am mupirocin 0.02 mg/mg topical ointment (16 sources)RNA Synthetase Inhibitor AntibacterialStart: 01-14-2024 End: 91-02-9051Wvkkmheng 2 % ointment Discontinued APPLIC TOPICAL January 14, 2024 12:00am July 09, 2024 9:13amStart: 50-18-0172Tbqkxwgzi Active APPLIC TOPICAL January 14, 2024 12:00amStart: 05-05-2023 End: .5 Application, Topical, 2 times daily, First dose on Sat05/05/23 at 2100, For 10 doses, Preprocedure Do not initiate until staph screening obtained first.Start: 04-09-2023 End: 77-51-6087zusbfuybs (Bactroban) 2 % ointmentnaproxen sodium 550 mg oral tablet (1 source)Nonsteroidal Anti-inflammatory DrugStart: 05-16-2004 End: 43-76-8207XLYMIUF DS 550MG TABLET Take one(1) tablet two(2) times daily. 60 0 05/16/2004 08/17/2022 DiscontinuedComment on above:Take one(1) tablet two(2) times daily.neostigmine methylsulfate 1 mg/ml injectable solution (1 source)Start: 05-08-2023 End: 75-28-8113Ysjpzahp on Sat05/08/23 at 0225, For 1 dose Martha Calderon: liudmila knoxideNicotine (20 sources)Cholinergic Nicotinic AgonistStart: 08-26-2024 End: 09-38-0986lwozz 1 dose transdermal route once dailynicotine 21-14-7 mg/24 hr patch, TD daily, sequential Indications: 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 , History of PTCA , ST elevation myocardial infarction (STEMI), unspecified artery (Multi) , Current smoker 1 each see administration instructions. Please provide to titration dose package. 21mg 6 weeks, 14mg 6 weeks and 7mg 6 weeks 1 kit 08/26/2024 02/23/2025 Discontinued (Therapy completed)Start: 08-26-2024 End: 45-86-8556fmblk 1 dose transdermal route once dailynicotine 21-14-7 mg/24 hr patch, TD daily, sequential Indications: 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 , History of PTCA , ST elevation myocardial infarction (STEMI), unspecified artery (Multi) , Current smoker 1 each see administration instructions. Please provide to titration dose package. 21mg 6 weeks, 14mg 6 weeks and 7mg 6 weeks 1 kit 08/26/2024 08/26/2025 Active Start: 08-14-2023 End: 69-34-5490tkhbb 1 dose transdermal route every twenty-four hoursnicotine (Nicoderm CQ) 14 mg/24 hr patch Indications: Currently attempting to quit smoking Place 1 patch over 24 hours on the skin once every 24 hours. 30 patch 10/15/2023 08/26/2024 Discontinued (Therapy completed)Start: 06-18-2023 End: 19-16-2740vqgks 1 dose transdermal route every twenty-four hoursnicotine (Nicoderm CQ) 21 mg/24 hr patch Indications: ST elevation myocardial infarction (STEMI), unspecified artery (CMS/HCC) , 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, unspecified whether [place] or transplanted heart (CMS/HCC) , Coronary arteriography abnormal Place 1 patchover 24 hours on the skin once every 24 hours for 14 days. 14 patch 0 06/18/2023 ActiveStart: 06-18-2023 End: 59-56-1304yucia 1 dose transdermal route every twenty-four hoursnicotine (Nicoderm CQ) 14 mg/24 hr patch Indications: ST elevation myocardial infarction (STEMI), unspecified artery (CMS/HCC) , 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, unspecified whether [place] or transplanted heart (CMS/HCC) , Coronary arteriography abnormal Place 1 patchover 24 hours on the skin once every 24 hours for 28 days. 14 patch 1 06/18/2023 07/02/2023 Disconti nued (Discontinued by another clinician)perflutren protein A microsphere (Optison) injection 0.5 mL (2 sources)Start: 07-16-2023 End: 39-63-6604mjubsoikgc protein A microsphere (Optison) injection 0.5 mL polyethylene glycol 3350 70287 mg powder for oral solution (5 sources)Osmotic LaxativeStart: 05-15-2023 End: 02-05-6569uvsulabexgif glycol (Glycolax, Miralax) 17 gram packet Indications: S/P CABG x 2 Take 17 g by mouthonce daily as needed (constipation). 0 05/15/2023 06/18/2023 Discontinued (Therapy completed)Start: g, oral, 2 times daily, First dose (after last modification) on Sat05/08/23 at 2100 Bowel Regimen - for prevention of constipation.Start: 05-05-2023 End: g, oral, Daily, First dose on Sat05/05/23 at 0900 polysaccharide iron complex 150 mg oral capsule (3 sources)Start: 05-10-2023 End: 73-19-2413rmbz 1 capsule by mouth once dailyiron polysaccharides (Nu- Iron,Niferex) 150 mg iron capsule Indications: S/P CABG x 2 Take 1 capsule(150 mg) by mouth once daily. Do not start before May 16, 2023. 30 capsule 0 05/16/2023 06/15/2023 Qebvdnx653 ml potassium chloride 0.2 meq/ml injection (3 sources)Start: 05-09-2023 End: 51-57-134509 mEq, intravenous, at 50 mL/hr, Administer over 2 Hours, Once, On Yvrose 05/09/23 at 1800, For 1 doseVia peripheral lineStart: 05-08-2023 End: 00-07-4662fqcg 40 mEq intravenously every six hours as hieixp33 mEq, intravenous, at 25 mL/hr, Administer over 4 Hours, Every 6 hours PRN, Potassium level 3.6 -3.7 mmol/L and unable to take oral medications, Starting on Sat05/08/23 at 1850 For central line administration only.Start: 05-06-2023 End: 43-16-748312 mEq, oral, Daily, First dose on Sat05/06/23 at 0900 Best given with food and plenty of water to minimize gastric irritation. Do not crush or chew.10 ml propofol 10 mg/ml injection (4 sources)General AnestheticStart: 05-08-2023 End: -50 mcg/kg/min 98 kg (2.94-29.4 mL/hr), intravenous, Continuous, Starting on Sat05/08/23 at 1245 Titration Goal: Use Adult Parameters Target Parameter: RASS 0 to -2 Initial dose: Other Other InitialDose: 25 Bidirectional Titration Dose: 5 mcg/kg/min Titration Frequency: Every 5 minutesStart: 05-07-2023 End: -50 mcg/kg/min 91.9 kg (0-27.57 mL/hr), intravenous, Continuous, Starting on Sat05/07/23 at 2230, Recovery & On Unit Titration Goal: Use Adult Parameters Target Parameter: RASS 0 to -2 Initial dose: 5 mcg/kg/min Bidirectional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 PlasmaOrdered By: Odilia Ernandez on 23-09-7229Hwaytmrfio [Mass/Vol]1.44 mg/dLHigh0.70-1.30German HospitalComment on above:Performed By: #### LYTES, CBC, LIPID, PP, BUN, CREAT #### [facility] [address] [place] [address] USAGlucose [Mass/volume] in Serum or PlasmaOrdered By: Odilia Ernandez on 18-84-3305Qadtnsr [Mass/Vol]92 mg/uY85-521PxpfcpbnoGerman HospitalComment on above:ADA recommended reference rangeRandom Glucose Reference Range is dependent on time and content of last meal. Glucose of more than 200 mg/dL in a nonstressed, ambulatory subject supports the diagnosisof Diabetes Mellitus.Result Comment: Random Glucose Reference Range is dependent on time and content of last meal. Glucose of more than 200 mg/dL in a nonstressed, ambulatory subject supports the diagnosis of Diabetes Mellitus. ADA recommended reference rangePerformed By: #### LYTES, CBC, LIPID, PP, BUN, CREAT #### [place] [address] USANo Panel InformationOrdered By: Odilia Ernandez on 03-01-2025 Estimated GFR (CKD-EPI)55.627 mL/MinGerman HospitalPharmacy Creatinine Clearance (ChemN/AFOhioHealth Pickerington Methodist HospitalPotassium [Moles/volume] in Serum or PlasmaOrdered By: Odilia Ernandez on 62-01-3257Haaimedfu [Moles/Vol]4.3 mmol/L3.5-5.1FOhioHealth Pickerington Methodist HospitalComment on above: Performed By: #### LYTES, CBC, LIPID, PP, BUN, CREAT #### [facility] [address] [place] [address] USASerum or plasma anion gap determinationOrdered By: Odilia Ernandez on 32-13-8356Rxowp gap [Moles/Vol]11.9 mmol/L6.0-15.0German HospitalComment on above:Performed By: #### LYTES, CBC, LIPID, PP, BUN, CREAT #### [facility] [address] [place] [address] USASodium [Moles/volume] in Serum or PlasmaOrdered By: Odilia Ernandez on 87-22-4560Aizmar [Moles/Vol]140 mmol/E737-354LgjisaeqeGerman HospitalComment on above:Performed By: #### LYTES, CBC, LIPID, PP, BUN, CREAT #### [facility] [address] [place] [address] USAUrea nitrogen [Mass/volume] in Serum or PlasmaOrdered By: Odilia Ernandez on 18-85-5214Bmdg nitrogen [Mass/Vol]12 mg/dL7-25German HospitalComment on above:Performed By: #### LYTES, CBC, LIPID, PP, BUN, CREAT #### [facility] [address] [place] [address] USABasophils [#/volume] in Blood by Automated countOrdered By: Hetal Quick on 30-79-0566Fwwaoeiut (Bld) [#/Vol]0.0 10*3/uLNormal0.0-0.2 [facility] Medical CenterComment on above:Result Comment: PERFORMED BY: [place] [address] PATHOLOGIST ROUGE SIFTER PEARL OLSON M.D.Performed By: #### LYTES, CBC, LIPID, PP, BUN, CREAT #### [facility] [address] [place] [address] USABasophils/100 leukocytes in Blood by Automated count Ordered By: Hetal Quick on 27-56-0380Qrkqfswqy/100 WBC (Bld)0.4 %Normal.German HospitalComment on above:Performed By: #### LYTES, CBC, LIPID, PP, BUN, CREAT #### [place] [address] USACarbon dioxide, total [Moles/volume] in Serum or Plasma Ordered By: Hetal Quick on 76-67-0622OA1 [Moles/Vol]26.6 mmol/IFmutdv76.0-31.0 German HospitalComment on above:Performed By: #### LYTES, CBC, LIPID, PP, BUN, CREAT #### [facility] [address] [place], [place] [address] USAChloride [Moles/volume] in Serum or PlasmaOrdered By: Hetal Quick on 65-17-1244Xdikpxpi [Moles/Vol]105 mmol/HRmqwrj38-749FfffzgwchGerman HospitalComment on above:Performed By: #### LYTES, CBC, LIPID, PP, BUN, CREAT #### [facility] [address] [place], [place] [address] USACholesterol [Mass/volume] in Serum or PlasmaOrdered By: Hetal Quick on 90-97-2096Syxztawjzpj [Mass/Vol]147 mg/oBRxyxlg211-428CmkbhboolGerman HospitalComment on above:Chol less than 200 mg/dl low riskChol 201-239 mg/dl borderline riskChol 240 mg/dl and greater high riskResult Comment: Chol less than 200 mg/dl low risk Chol 201-239 mg/dl borderline risk Chol 240 mg/dl and greater high riskPerformed By: #### LYTES, CBC, LIPID, PP, BUN, CREAT #### [facility] [address] [place] [address] USACholesterol in HDL [Mass/volume] in Serum or PlasmaOrdered By: Hetal Quick on 16-82-6834Sdgnwgwvdbc in HDL [Mass/Vol]69 mg/yAVmwywf62-14 German HospitalComment on above:HDL CHOL ATP-III CLASSIFICATION Cardiovascular RiskHDL > or equal to 60 mg/dL LOWHDL < 40 mg/dL HIGHResult Comment: HDL CHOL ATP-III CLASSIFICATION Cardiovascular Risk HDL > or equal to 60 mg/dL LOW HDL < 40 mg/dL HIGHPerformed By: #### LYTES, CBC, LIPID, PP, BUN, CREAT #### [facility] [address] [place] [address] USACholesterol in LDL Calc [Mass/Vol]Ordered By: Heatl Quick on 51-36-3846Tphibiaqsea in LDL [Mass/Vol]63 mg/dL0-100German HospitalComment on above:LDL ATP III CLASSIFICATIONLDL less than 100 mg/dL OptimalLDL 100-129 mg/dL Near or above uiqwgjiMSW669-371 mg/dL Borderline highLDL 160-189 mg/dL HighLDL greater than 189 mg/dL Very highCholesterol in VLDL Calc [Mass/Vol]Ordered By: Hetal Quick on 57-60-7091Sukuptqrbbn in VLDL [Mass/Vol]14 mg/dLGerman HospitalCoagulation Profileon 87-86-6092rDWE Coag (Bld) [Time]27.9 xNocrqv48.1-36.5The [facility] Physician GroupComment on above:Result Comment: A hematocrit value greater than 55% may lead to inaccurate results in coagulation testing. Patients having hematocrit values >55% require a special collection tube for coagulation studies. Please contact the laboratory at [phone] for redraw instructions. PERFORMED BY: [address] [address] PATHOLOGIST ROUGE SIFTER PEARL OLSON M.D.Performed By: #### LYTES, CBC, LIPID, PP, BUN, CREAT #### [facility] [address] [place] [address] USAComplete Blood Count Auto Diffon 22-15-2216Julu Corpuscular HGB Conc32.2 g/dLLow32.5-35.6The [facility] Physician GroupComment on above:Performed By: #### LYTES, CBC, LIPID, PP, BUN, CREAT #### [facility] [address] [place] [address] USANRBC%0.1 /100{WBC}Normal0-0.5The [facility] Comment on above:Performed By: #### LYTES, CBC, LIPID, PP, BUN, CREAT #### [facility] [address] [place] [address] USAWhite Blood Count5.1 [CFU]/mLNormal4.1-10.5The [facility] Physician [facility] MississippiComment on above:Performed By: #### LYTES, CBC, LIPID, PP, BUN, CREAT #### [facility] [address] [place] [address] USACreatinineon 49-53-9783Ikzdkjtduv Clr Calc Oodjozlx98.33 NormalSelect Specialty HospitalComment on above:Performed By: #### LYTES, CBC, LIPID, PP, BUN, CREAT #### [place] [address] USAGFR/1.73 sq M.predicted MDRD (S/P/Bld) [Vol rate/Area] 41.724 mL/min/{1.73_m2}NormalSanta Rosa Medical Center Physician [facility] MississippiComment on above: Performed By: #### LYTES, CBC, LIPID, PP, BUN, CREAT #### [place] [address] USACreatinine [Mass/volume] in Serum or PlasmaOrdered By: Hetal Quick on 08-39-7056Rtagmynalc [Mass/Vol]1.83 mg/dLHigh0.70-1.30German HospitalComment on above:Performed By: #### LYTES, CBC, LIPID, PP, BUN, CREAT #### [facility] [address] [place] [address] USAECG 12 lead ECGon 82-09-9266KOK 12 lead ECGUNIVERSITY H[facility] [place] [address] [place] [address] Electrocardiograph Report Signed Patient: Morgan Latham MR#: [id number] : 1965 Acct:[id number] Age/Sex: 59 / M ADM Date: 01/29/25 Loc: Room: Type: [facility] Attending Dr: Hetal Quick DO Ordering Provider: Hetal Quick DO Date of Service: 01/29/25 ECG/ECG 12 lead ECG: [facility] Copies to: Test Reason : [...] of Lateral leads Confirmed by Van Wright ([id number]) on 01/29/2025 3:53:13 PM Referred By: Electronically Signed By: Van Wright Transcribed By: MUS Signed By Van Wright MD 01/29/25 [facility] Physician GroupEosinophils [#/volume] in Blood by Automated countOrdered By: Hetal Quick on 73-97-4663Xwwirkzccqj (Bld) [#/Vol] 0.4 10*3/uLNormal0.0-0.45German HospitalComment on above: Performed By: #### LYTES, CBC, LIPID, PP, BUN, CREAT #### [address] [address] USAEosinophils/100 leukocytes in Blood by Automated count Ordered By: Hetal Quick on 81-12-3183Nbaitpdsxec/100 WBC (Bld)8.6 %Normal. German HospitalComment on above:Performed By: #### LYTES, CBC, LIPID, PP, BUN, CREAT #### [place] [address] USAErythrocyte distribution width [Ratio] by Automated count Ordered By: Hetal Quick on 66-28-2770Copepjkfwhl distribution width (RBC) [Ratio] 16.6 %High12.0-14.8German HospitalComment on above:Performed By: #### LYTES, CBC, LIPID, PP, BUN, CREAT #### [place] [address] USAErythrocytes [#/volume] in Blood by Automated countOrdered By: Hetal Quick on 31-31-2089WAT (Bld) [#/Vol]3.66 10*6/uLLow3.90-5.60German HospitalComment on above:Performed By: #### LYTES, CBC, LIPID, PP, BUN, CREAT #### [place] [address] USAHematocrit [Volume Fraction] of Blood by Automated count Ordered By: Hetal Quick on 86-76-1523Xpmqikyraz (Bld) [Volume fraction]32.7 %Low 38.8-50.0German HospitalComment on above:Performed By: #### LYTES, CBC, LIPID, PP, BUN, CREAT #### [place] [address] USAHemoglobin [Mass/volume] in BloodOrdered By: Hetal Quick on 72-39-2852Wuxveizvbm (Bld) [Mass/Vol]10.5 g/dLLow13.0-17.0German HospitalComment on above:Performed By: #### LYTES, CBC, LIPID, PP, BUN, CREAT #### [place] [address] USAINR in Platelet poor plasma by Coagulation assayOrdered By: Hetal Quick on 19-24-3927KEY Coag (PPP) [Relative time]0.9 {INR}Normal German HospitalComment on above:INR Therapeutic Range A) Pre- and Peroperative OAT started two weeks before surgery. NOT HIP SURGERY: 1.5 - 2.5 HIP SURGERY: 2 - 3B) Primary and secondary prevention of venous THROMBOSIS: 2 - 3C) Active venous thrombosis, pulmonary embolismand prevention of recurrent venous thrombosis: 2 - 3D) Prevention of arterial thromboembolismincluding patients with mechanical heart valves: 3 - 4.5Result Comment: INR Therapeutic Range A) Pre- and [...] patients with mechanical heart valves: 3 - 4.5Performed By: #### LYTES, CBC, LIPID, PP, BUN, CREAT #### [facility] [address] [place] [address] USALeukocytes [#/volume] corrected for nucleated erythrocytes in Blood by Automated counOrdered By: Hetal Quick on 80-49-7184WOW corrected for nucl RBC Auto (Bld) [#/Vol]5.1 10*3/uL4.1-10.5FOhioHealth Pickerington Methodist Hospital Leukocytes [#/volume] in Blood by Automated countOrdered By: Hetal Quick on 23-02-9609OLT (Bld) [#/Vol]5.1 10*3/uLNormal4.1-10.5FOhioHealth Pickerington Methodist HospitalComment on above:Performed By: #### LYTES, CBC, LIPID, PP, BUN, CREAT #### [facility] [address] [place] [address] USALipid Panelon 17-90-8543TRD Cholesterol,Rxutrymecz15 mg/dL Normal0-100The [facility] Physician GroupComment on above:Result Comment: LDL ATP III CLASSIFICATION LDL less than 100 mg/dL Optimal LDL 100-129 mg/dL Near or above optimal LDL 130-159 mg/dL Borderline high LDL 160-189 mg/dL High LDL greater than 189 mg/dL Very highPerformed By: #### LYTES, CBC, LIPID, PP, BUN, CREAT #### [facility] [address] [place] [address] USATriglyceride w/Zhkecl02 mg/dLNormal0-149The [facility] Physician GroupComment on above:Result Comment: TRIG ATP III CLASSIFICATION TRIG less than 150 mg/dL Normal TRIG 150-199 mg/dL Borderline high TRIG 200-500 mg/dL High TRIG greater than 500 mg/dL Very high Standard traceable to the Center for Disease Conrtrol and Prevention (CDC) test method.Performed By: #### LYTES, CBC, LIPID, PP, BUN, CREAT #### [place] [address] USAVLDL SAKAZIJVFEK85 mg/dLNoIredell Memorial Hospital Physician [facility] MississippiComment on above:Performed By: #### LYTES, CBC, LIPID, PP, BUN, CREAT #### [place] [address] USALymphocytes [#/volume] in Blood by Automated countOrdered By: Hetal Quick on 06-37-2296Uairbwtxafs (Bld) [#/Vol]0.8 10*3/uLLow1.00-4.8 German HospitalComment on above:Performed By: #### LYTES, CBC, LIPID, PP, BUN, CREAT #### [place] [address] USALymphocytes/100 leukocytes in Blood by Automated count Ordered By: Hetal Quick on 08-46-4243Zxjhizbxztm/100 WBC (Bld)15.7 %Normal. German HospitalComment on above:Performed By: #### LYTES, CBC, LIPID, PP, BUN, CREAT #### [address] [Entitic mass] by Automated countOrdered By: Hetal Quick on 64-53-5923MUY (RBC) [Entitic mass]28.7 fhTwmlzf84.5-35.2FOhioHealth Pickerington Methodist HospitalComment on above:Performed By: #### LYTES, CBC, LIPID, PP, BUN, CREAT #### [address] Auto (RBC) [Mass/Vol]Ordered By: Hetal Quick on 66-72-0559VEVV (RBC) [Mass/Vol]32.2 g/dLLow32.5-35.6FOhioHealth Pickerington Methodist HospitalMCV [Entitic volume] by Automated countOrdered By: Hetal Quick on 01-29-2025 MCV (RBC) [Entitic vol]89.2 gZHfzjne71.5-101[facility] Comment on above:Performed By: #### LYTES, CBC, LIPID, PP, BUN, CREAT #### [facility] [address] [place] [address] USAMonocytes [#/volume] in Blood by Automated countOrdered By: Hetal Quick on 63-45-3570Sbvkdnojt (Bld) [#/Vol]0.5 10*3/uLNormal0.0-0.8 German HospitalComment on above:Performed By: #### LYTES, CBC, LIPID, PP, BUN, CREAT #### [facility] [address] [place] [id number] USAMonocytes/100 leukocytes in Blood by Automated count Ordered By: Hetal Quick on 34-18-1888Lazcxnqnq/100 WBC (Bld)9.0 %Normal.German HospitalComment on above:Performed By: #### LYTES, CBC, LIPID, PP, BUN, CREAT #### [place] [address] USANeutrophils [#/volume] in Blood by Automated countOrdered By: Hetal Quick on 33-41-4138Qhwzsfmhqgk (Bld) [#/Vol]3.4 10*3/uLNormal1.8-7.7 German HospitalComment on above:Performed By: #### LYTES, CBC, LIPID, PP, BUN, CREAT #### [facility] [address] [place], [place] [address] USANeutrophils/100 leukocytes in Blood by Automated count Ordered By: Hetal Quick on 68-01-8582Ozqzzravfvk/100 WBC (Bld)66.3 %Normal. German HospitalComment on above:Performed By: #### LYTES, CBC, LIPID, PP, BUN, CREAT #### [facility] [address] [place] [address] USANo Panel InformationOrdered By: Hetal Quick on 01-29-2025 Estimated GFR (CKD-EPI)41.724 mL/MinGerman HospitalPharmacy Creatinine Clearance (Chem46.33German HospitalNucleated erythrocytes [Presence] in Blood by Automated countOrdered By: Hetal Quick on 47-38-2718Ikvftwhyt RBC Auto Ql (Bld)0.1 /100{WBC}0-0.5FOhioHealth Pickerington Methodist HospitalPlatelet mean volume [Entitic volume] in Blood by Automated count Ordered By: Hetal Quick on 42-07-0293Zuzkkvql mean volume (Bld) [Entitic vol]7.5 fLNormal6.6-10.1FOhioHealth Pickerington Methodist HospitalComment on above:Performed By: #### LYTES, CBC, LIPID, PP, BUN, CREAT #### [facility] [address] [place] [address] USAPlatelets [#/volume] in Blood by Automated countOrdered By: Hetal Quick on 45-76-2766Vswhupqyu (Bld) [#/Vol]352 10*3/kCHdsayr908-880 German HospitalComment on above:Performed By: #### LYTES, CBC, LIPID, PP, BUN, CREAT #### [facility] [address] [place] [address] USAPotassium [Moles/volume] in Serum or PlasmaOrdered By: Hetal Quick on 02-68-7340Wzjesmjev [Moles/Vol]4.4 mmol/LNormal3.5-5.1FOhioHealth Pickerington Methodist HospitalComment on above:Performed By: #### LYTES, CBC, LIPID, PP, BUN, CREAT #### [facility] [address] [place] [address] USAProthrombin time (PT)Ordered By: Hetal Quick on 72-15-2844FR Coag (PPP) [Time]10.8 sNormal9.0-12.9German HospitalComment on above:A hematocrit value greater than 55% may lead to inaccurate results in coagulation testing. Patientshaving hematocrit values >55% require a special collection tube for coagulation studies. Please contact the laboratory at [phone] for redraw instructions.Result Comment: A hematocrit value greater than 55% may lead to inaccurate results in coagulation testing. Patients having hematocrit values >55% require a special collection tube for coagulation studies. Please contact the laboratory at [phone] for redraw instructions.Performed By: #### LYTES, CBC, LIPID, PP, BUN, CREAT #### [address] [address] USASerum or plasma anion gap determinationOrdered By: Hetal Quick on 26-52-9423Sivzd gap [Moles/Vol]10.8 mmol/LNormal6.0-15.0German HospitalComment on above:Performed By: #### LYTES, CBC, LIPID, PP, BUN, CREAT #### [place] [address] USASerum or plasma total cholesterol/high density lipoprotein (HDL) cholesterol mass ratOrdered By: Hetal Quick on 01-29-2025 Cholesterol.total/Cholesterol in HDL [Mass ratio]2.1 {ratio}Normal<5.0German HospitalComment on above:Result Comment: PERFORMED BY: [address] [address] PATHOLOGIST ROUGE SIFTER PEARL OLSON M.D.Performed By: #### LYTES, CBC, LIPID, PP, BUN, CREAT #### [place] [id number] USASodium [Moles/volume] in Serum or PlasmaOrdered By: Hetal Quick on 70-14-6044Aywzma [Moles/Vol]138 mmol/HIdlukc905-684AkrmftxvaGerman HospitalComment on above:Performed By: #### LYTES, CBC, LIPID, PP, BUN, CREAT #### [address] [address] USATriglyceride [Mass/volume] in Serum or PlasmaOrdered By: Hetal Quick on 93-40-1627Lipijewrbvvy [Mass/Vol]74 mg/dL0-149German HospitalComment on above:TRIG ATP III CLASSIFICATIONTRIG less than 150 mg/dL NormalTRIG 150-199 mg/dL Borderline highTRIG 200-500 mg/dL High TRIG greater than 500 mg/dL Very highStandard traceable to the Center for Disease Co nrtrol and Prevention (CDC) test method.Urea nitrogen [Mass/volume] in Serum or PlasmaOrdered By: Hetal Quick on 24-38-6588Jjtn nitrogen [Mass/Vol]20 mg/dLNormal 02-26German HospitalComment on above:Performed By: #### LYTES, CBC, LIPID, PP, BUN, CREAT #### [facility] [address] [place] [id number] USAaPTT in Platelet poor plasma by Coagulation assayOrdered By: Hetal Quick on 51-23-6998cFCH Coag (PPP) [Time]27.9 s25.1-36.5FOhioHealth Pickerington Methodist HospitalComment on above:A hematocrit value greater than 55% may lead to inaccurate results in coagulation testing. Patientshaving hematocrit values >55% require a special collection tube for coagulation studies. Please c ontact the laboratory at [phone] for redraw instructions.NUCLEAR STRESS TEST EXERCISE (CARD)on 01-26-2025 Source Facility: [facility] Interpreted By: Earnest Dyer and Giannuzzi Michael STUDY: MYOCARDIAL PERFUSION STRESS TEST WITH LEXISCAN Performing facility: [facility], [address] [place] [address], [address], [place] [address] [facility] Provider: Odilia Ernandez RN, AIR VALUE TESTER PCP: Dr. 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 High Cholesterol; CAD; Previous SC;2022 HTN; CHF Currently smoking. Cardiac catheterization on 2022. PTCA on 2022. CABG on 2022. COMPARISON: No comparison. ACCESSION NUMBER(S): [id number] ORDERING CLINICIAN: ODILIA ERNANDEZ TECHNIQUE: ONE DAY [...] Earnest Dyer 01/26/2025 2:00 PM Dictation workstation: [id number], Radiologist, - 01/26/2025 Source Facility: [facility] Interpreted By: Earnest Dyer and Giannuzzi Michael STUDY: MYOCARDIAL PERFUSION STRESS TEST WITH LEXISCAN Performing facility: [facility], [address] [facility], [address], [place] [address] [facility] Provider: Odilia Ernandez RN, AIR VALUE TESTER PCP: Dr. 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 High Cholesterol; CAD; Previous SC;2022 HTN; CHF Currently smoking. Cardiac catheterization on 2022. PTCA on 2022. CABG on 2022. COMPARISON: No comparison. ACCESSION NUMBER(S): [id number] ORDERING CLINICIAN: ODILIA ERNANDEZ TECHNIQUE: ONE DAY [...] Earnest Dyer 01/26/2025 2:00 PM Dictation workstation: [id number] Kindred HospitalNUCLEAR STRESS TEST EXERCISE (CARD)Ordered By: Radiologist Radiology on 09-06-7182[employer] Work Phone: NUCLEAR STRESS TESTon [id number] STRESS TEST Interpreted By: Earnest Dyer and Angie Mancini STUDY: MYOCARDIAL PERFUSION STRESS TEST WITH LEXISCAN Performing facility: [facility], [address] [place] [address], [address], [address] Provider: Odilia Ernandez RN, AIR VALUE TESTER PCP: Dr. 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 High Cholesterol; CAD; Previous SC;2022 HTN; CHF Currently smoking. Cardiac catheterization on 2022. PTCA on 2022. CABG on 2022. COMPARISON: No comparison. ACCESSION NUMBER(S): [id number] ORDERING CLINICIAN: ODILIA ERNANDEZ TECHNIQUE: ONE DAY [...] Earnest Dyer 01/26/2025 2:00 PM Dictation workstation: [id number] Health West Hospital NUCLEAR STRESS TEST EXERCISE (CARD)on 80-06-1392Cmtlaydpz Study observation (narrative)[facility] SpringfieldBasi Metabolic Panelon 55-30-5365Dcafqtajeo Clr Calc Iglmmquq76.43NoIredell Memorial Hospital Physician GroupComment on above:Result Comment: PERFORMED BY: [place] [address] PATHOLOGIST ROUGE SIFTER PEARL OLSON M.D.Performed By: #### LYTES, CBC, LIPID, PP, BUN, CREAT #### [place] [address] USAGFR/1.73 sq M.predicted MDRD (S/P/Bld) [Vol rate/Area] mL/min/{1.73_m2}NormalThe [facility] Physician [facility] MississippiComment on above:Performed By: #### LYTES, CBC, LIPID, PP, BUN, CREAT #### [facility] [address] [place] [address] USACalcium [Mass/volume] in Serum or PlasmaOrdered By: Jud Hutchison on 55-73-2616Uymaapb [Mass/Vol]Calcium [Mass/volume] in Serum or Plasma8.6-10.3FOhioHealth Pickerington Methodist HospitalCalcium [Mass/Vol]8.8 mg/dLNormal 8.6-10.3FOhioHealth Pickerington Methodist HospitalComment on above:Performed By: #### LYTES, CBC, LIPID, PP, BUN, CREAT #### [facility] [address] [place] [id number] USACarbon dioxide, total [Moles/volume] in Serum or Plasma Ordered By: Jud Hutchison on 64-48-4223ML7 [Moles/Vol]Carbon dioxide, total [Moles/volume] in Serum or Qlvogi23.0-31.0German HospitalCO2 [Moles/Vol]28.2 mmol/MFverpe62.0-31.0German HospitalComment on above:Performed By: #### LYTES, CBC, LIPID, PP, BUN, CREAT #### [facility] [address] [place] [id number] USAChloride [Moles/volume] in Serum or PlasmaOrdered By: Jud Hutchison on 53-93-2516Aokojqyp [Moles/Vol]Chloride [Moles/volume] in Serum or Gbljzd80-800RezpgcgseGerman HospitalChloride [Moles/Vol]104 mmol/L Esbxuk20-676Qolcswkpc[address] [place], [place] [address]Comment on above:Performed By: #### LYTES, CBC, LIPID, PP, BUN, CREAT #### [facility] [address] [id number] USACreatinine [Mass/volume] in Serum or PlasmaOrdered By: Jud Hutchison on 63-25-6963Hbrmexzjup [Mass/Vol]Creatinine [Mass/volume] in Serum or Plasma0.70-1.30German HospitalCreatinine [Mass/Vol] 1.18 mg/dLNormal0.70-1.30German HospitalComment on above: Performed By: #### LYTES, CBC, LIPID, PP, BUN, CREAT #### [facility] [address] [phone] USAGlucose [Mass/volume] in Serum or PlasmaOrdered By: Jud Hutchison on 62-86-4664Majefhi [Mass/Vol]Glucose [Mass/volume] in Serum or LzcugyAhbq33-354Qhrrigeye[address] [place], [place] [address]Comment on above:ADA recommended reference rangeRandom Glucose Reference Range is dependent on time and content of last meal. Glucose of more than 200 mg/dL in a nonstressed, ambulatory subject supports the diagnosisof Diabetes Mellitus.Glucose [Mass/Vol] 106 mg/dRZvfw35-379Wjdcmtnza[address] [place], [place] [address]Comment on above:ADA recommended reference rangeRandom Glucose Reference Range is dependent on time and content of last meal. Glucose of more than 200 mg/dL in a nonstressed, ambulatory subject supports the diagnosisof Diabetes Mellitus.Result Comment: Random Glucose Reference Range is dependent on time and content of last meal. Glucose of more than 200 mg/dL in a nonstressed, ambulatory subject supports the diagnosis of Diabetes Mellitus. ADA recommended reference rangePerformed By: #### LYTES, CBC, LIPID, PP, BUN, CREAT #### [facility] [address] [phone] USANo Panel InformationOrdered By: Jud Hutchison on 41-71-3956Bvdrhywty GFR (CKD-EPI)> 60.0 mL/MinGerman Hospital Pharmacy Creatinine Clearance (Chem71.43[facility] Potassium [Moles/volume] in Serum or PlasmaOrdered By: Jud Hutchison on 61-89-1005Wlopdluxh [Moles/Vol]Potassium [Moles/volume] in Serum or Plasma 3.5-5.1FOhioHealth Pickerington Methodist HospitalComment on above:Hemolysis is present at a level that could interfere with the result.Contact lab if redraw is required Potassium [Moles/Vol]3.7 mmol/LNormal3.5-5.1FOhioHealth Pickerington Methodist Hospital Comment on above:Hemolysis is present at a level that could interfere with the result.Contact lab if redraw is requiredResult Comment: Hemolysis is present at a level that could interfere with the result. Contact lab if redraw is requiredPerformed By: #### LYTES, CBC, LIPID, PP, BUN, CREAT #### [facility] [address] [phone] USASerum or plasma anion gap determinationOrdered By: Jud Hutchison on 10-86-3692Rxnwk gap [Moles/Vol]Serum or plasma anion gap determination6.0-15.0German HospitalAnion gap [Moles/Vol]11.5 mmol/LNormal6.0-15.0German HospitalComment on above:Performed By: #### LYTES, CBC, LIPID, PP, BUN, CREAT #### [address] [id number] USASodium [Moles/volume] in Serum or PlasmaOrdered By: Jud Hutchison on 88-67-7757Hrsphz [Moles/Vol]Sodium [Moles/volume] in Serum or Mlbcyk461-328CmnmivsebMercy Health St. Charles Hospitalodium [Moles/Vol]140 mmol/LNormal 136-145German HospitalComment on above:Performed By: #### LYTES, CBC, LIPID, PP, BUN, CREAT #### [address] [id number] USAUrea nitrogen [Mass/volume] in Serum or PlasmaOrdered By: Jud Hutchison on 63-90-7130Szmq nitrogen [Mass/Vol]Urea nitrogen [Mass/volume] in Serum or Plasma02-26German HospitalUrea nitrogen [Mass/Vol] 17 mg/dLNormal02-26German HospitalComment on above:Performed By: #### LYTES, CBC, LIPID, PP, BUN, CREAT #### [facility] [address] [phone] USAAlanine aminotransferase [Enzymatic activity/volume] in Serum or PlasmaOrdered By: Sabi Choudhury on 93-76-6659FAA [Catalytic activity/Vol]Alanine aminotransferase [Enzymatic activity/volume] in Serum or PlasmaGerman HospitalALT [Catalytic activity/Vol]16 U/L Normal7-52German HospitalComment on above:Performed By: #### CBC, MG, CMP #### [facility] [address] [place] [address] USAAlbumin [Mass/volume] in Serum or Plasma by Bromocresol green (BCG) dye binding methoOrdered By: Sabi Choudhury on 04-09-2184Gvxylqg BCG dye [Mass/Vol]Albumin [Mass/volume] in Serum or Plasma by Bromocresol green (BCG) dye binding metho3.5-5.7FOhioHealth Pickerington Methodist HospitalAlbumin BCG dye [Mass/Vol]3.8 g/dL3.5-5.7FOhioHealth Pickerington Methodist HospitalAlkaline phosphatase [Enzymatic activity/volume] in Serum or PlasmaOrdered By: Sabi Choudhury on 73-51-5933OPS [Catalytic activity/Vol]Alkaline phosphatase [Enzymatic activity/volume] in Serum or Cqdvpk15-148Lthcmusbj38 [address] StreetALP [Catalytic activity/Vol]87 U/HVimkab76-740Qybnnboax[address] Comment on above:Performed By: #### CBC, MG, CMP #### [facility] [address] [place] [address] USAAspartate aminotransferase [Enzymatic activity/volume] in Serum or PlasmaOrdered By: Sabi Choudhury on 14-31-5166QKB [Catalytic activity/Vol]Aspartate aminotransferase [Enzymatic activity/volume] in Serum or Aalkcw94-41Cimjgjnsh97 [address] StreetAST [Catalytic activity/Vol]18 U/L Nihrcx85-60Mmhciegbg97 [address]ley StreetComment on above:Performed By: #### CBC, MG, CMP #### [facility] [address] [place] [address] USABasophils Auto (Bld) [#/Vol]Ordered By: Sabi Choudhury on 34-03-0682Ejuyeytej (Bld) [#/Vol]Automated basophil count0.0-0.2FOhioHealth Pickerington Methodist HospitalBasophils [#/volume] in Blood by Automated countOrdered By: Sabi Choudhury on 14-17-2123Rsrkagsop (Bld) [#/Vol]0.1 10*3/uLNormal0.0-0.2 German HospitalComment on above:Result Comment: PERFORMED BY: [place] [address] PATHOLOGIST ROUGE SIFTER PEARL OLSON M.D.Performed By: #### CBC, MG, CMP #### [place] [address] USABasophils/100 WBC Auto (Bld)Ordered By: Sabi Choudhury on 69-34-0115Znwykfsil/100 WBC (Bld)Automated basophil %.German HospitalBasophils/100 leukocytes in Blood by Automated countOrdered By: Sabi Choudhury on 20-77-9948Dyhiplijd/100 WBC (Bld)1.4 %Normal.German HospitalComment on above:Performed By: #### CBC, MG, CMP #### [place] [address] USABilirubin.total [Mass/volume] in Serum or PlasmaOrdered By: Sabi Choudhury on 85-78-7140Sapjenvfb [Mass/Vol]Bilirubin.total [Mass/volume] in Serum or Plasma0.3-1.0German HospitalBilirubin [Mass/Vol] 0.6 mg/dLNormal0.3-1.0German HospitalComment on above: Performed By: #### CBC, MG, CMP #### [place] [address] USAComplete Blood Count Auto Diffon 25-97-0481Jgeb Corpuscular HGB Conc33.3 g/kEZflonu07.5-35.6The [facility] Physician GroupComment on above:Performed By: #### CBC, MG, CMP #### [place] [address] USANRBC%0.1 /100{WBC}Normal0-0.5The [facility] Comment on above:Performed By: #### CBC, MG, CMP #### [address] [id number] USAComprehensive Metabolic Panelon 26-22-7318Uddfooj [Mass/Vol]3.8 g/dLNormal3.5-5.7The [facility]ly [facility] Hospital Physician GroupComment on above: Performed By: #### CBC, MG, CMP #### [facility] [address] [place] [address] USAAnion gap [Moles/Vol]13.6 mmol/LNormal6.0-15.0The Formerly [facility] Hospital Physician GroupComment on above:Performed By: #### CBC, MG, CMP #### [facility] [address] [place] [address] USACalcium [Mass/Vol]8.6 mg/dLNormal8.6-10.3The Formerly [facility] Hospital Physician GroupComment on above:Performed By: #### CBC, MG, CMP #### [facility] [address] [place] [address] USAChloride [Moles/Vol]104 mmol/IOagflz65-918Omb [facility] Physician GroupComment on above:Performed By: #### CBC, MG, CMP #### [facility] [address] [place] [address] USACO2 [Moles/Vol]26.9 mmol/EMkxerk61.0-31.0The [facility]ly [facility] Hospital Physician GroupComment on above:Performed By: #### CBC, MG, CMP #### [facility] [address] [place] [address] USACreatinine [Mass/Vol]1.22 mg/dLNormal0.70-1.30The [facility]ly [facility] Physician GroupComment on above:Performed By: #### CBC, MG, CMP #### [facility] [address] [place] [address] USACreatinine Clr Calc Muelompg62.09NormalThe Formerly [facility] Physician GroupComment on above:Performed By: #### CBC, MG, CMP #### [facility] [address] [place] [address] USAGFR/1.73 sq M.predicted MDRD (S/P/Bld) [Vol rate/Area] mL/min/{1.73_m2}NormalThe Formerly [facility] Hospital Physician GroupComment on above:Performed By: #### CBC, MG, CMP #### [facility] [address] [place] [address] USAGlucose [Mass/Vol]118 mg/dPPyly95-061Qsl [facility] Physician GroupComment on above:Result Comment: Random Glucose Reference Range is dependent on time and content of last meal. Glucose of more than 200 mg/dL in a nonstressed, ambulatory subject supports the diagnosis of Diabetes Mellitus. ADA recommended reference rangePerformed By: #### CBC, MG, CMP #### [facility] [address] [place] [address] USAPotassium [Moles/Vol]3.5 mmol/LNormal3.5-5.1The [facility] Hospital Physician GroupComment on above:Performed By: #### CBC, MG, CMP #### [place] [address] USASodium [Moles/Vol]141 mmol/IAfnfbb019-253Gfj Formerly [facility] Physician GroupComment on above:Performed By: #### CBC, MG, CMP #### [facility] [address] [place] [address] USAUrea nitrogen [Mass/Vol]15 mg/dLNormal7-25The [facility] Physician GroupComment on above:Performed By: #### CBC, MG, CMP #### [facility] [address] [place] [address] USAEosinophils Auto (Bld) [#/Vol]Ordered By: Sabi Choudhury on 84-83-0282Zsboumsztgo (Bld) [#/Vol]Automated eosinophil count0.0-0.45German HospitalEosinophils [#/volume] in Blood by Automated countOrdered By: Sabi Choudhury on 12-76-8642Sgavovohero (Bld) [#/Vol]0.2 10*3/uLNormal 0.0-0.45German HospitalComment on above:Performed By: #### CBC, MG, CMP #### [facility] [address] [place] [address] USAEosinophils/100 WBC Auto (Bld)Ordered By: Sabi Choudhury on 74-34-2722Glhqhqojprz/100 WBC (Bld)Automated eosinophil %.German HospitalEosinophils/100 leukocytes in Blood by Automated countOrdered By: Sabi Choudhury on 71-16-7000Eapgftwbfna/100 WBC (Bld)3.8 %Normal.German HospitalComment on above:Performed By: #### CBC, MG, CMP #### [facility] [address] [place] [address] USAErythrocyte distribution width Auto (RBC) [Ratio]Ordered By: Sabi Choudhury on 64-40-7893Omsekyyehzd distribution width (RBC) [Ratio] Erythrocyte distribution width [Ratio] by Automated bfjbhVeqy20.0-14.8German HospitalErythrocyte distribution width [Ratio] by Automated count Ordered By: Sabi Choudhury on 49-18-3970Xcvqdltqhcq distribution width (RBC) [Ratio]16.4 %High12.0-14.8German HospitalComment on above: Performed By: #### CBC, MG, CMP #### [facility] [address] [place] [address] USAErythrocytes [#/volume] in Blood by Automated countOrdered By: aSbi Choudhury on 18-94-1066ZHM (Bld) [#/Vol]3.40 10*6/uLLow3.90-5.60 German HospitalComment on above:Performed By: #### CBC, MG, CMP #### [facility] [address] [place] [address] USAGlobulin Calc (S) [Mass/Vol]Ordered By: Sabi Choudhury on 67-00-4676Bsbqlnmc (S) [Mass/Vol]Serum globulin measurement by calculation (mass/volume)German HospitalHematocrit Auto (Bld) [Volume fraction]Ordered By: Sabi Choudhury on 76-13-5808Fkiuzykufl (Bld) [Volume fraction]Hematocrit [Volume Fraction] of Blood by Automated sfkinVob13.8-50.0 German HospitalHematocrit [Volume Fraction] of Blood by Automated countOrdered By: Sabi Choudhury on 81-03-7511Qqaqofxscx (Bld) [Volume fraction]30.5 %Low38.8-50.0German HospitalComment on above: Performed By: #### CBC, MG, CMP #### [facility] [address] [place] [address] USAHemoglobin [Mass/volume] in BloodOrdered By: Sabi Choudhury on 78-91-4690Hwwhsyualv (Bld) [Mass/Vol]Hemoglobin [Mass/volume] in BloodLow 13.0-17.0German HospitalHemoglobin (Bld) [Mass/Vol]10.1 g/dL Low13.0-17.0German HospitalComment on above:Performed By: #### CBC, MG, CMP #### [facility] [address] [place] [address] USALeukocytes [#/volume] corrected for nucleated erythrocytes in Blood by Automated counOrdered By: Sabi Choudhury on 39-05-9624XIP corrected for nucl RBC Auto (Bld) [#/Vol]Leukocytes [#/volume] corrected for nucleated erythrocytes in Blood by Automated coun4.1-10.5FOhioHealth Pickerington Methodist Hospital WBC corrected for nucl RBC Auto (Bld) [#/Vol]4.5 10*3/uL4.1-10.5FOhioHealth Pickerington Methodist HospitalLeukocytes [#/volume] in Blood by Automated countOrdered By: Sabi Choudhury on 09-69-4024UVT (Bld) [#/Vol]4.5 10*3/uLNormal4.1-10.5 German HospitalComment on above:Performed By: #### CBC, MG, CMP #### [facility] [address] [place] [address] USALymphocytes Auto (Bld) [#/Vol]Ordered By: Sabi Choudhury on 42-88-1772Hladduxivzf (Bld) [#/Vol]Lymphocytes [#/volume] in Blood by Automated countLow1.00-4.8Fire[facility] Regional Medical CenterLymphocytes [#/volume] in Blood by Automated countOrdered By: Sabi Choudhury on 17-24-4709Zpffkrdxnvf (Bld) [#/Vol]0.6 10*3/uLLow1.00-4.8German HospitalComment on above: Performed By: #### CBC, MG, CMP #### [facility] [address] [place] [address] USALymphocytes/100 WBC Auto (Bld)Ordered By: Sabi Choudhury on 60-32-0694Lyscjbdepwz/100 WBC (Bld)Lymphocytes/100 leukocytes in Blood by Automated count.German HospitalLymphocytes/100 leukocytes in Blood by Automated countOrdered By: Sabi Choudhury on 06-15-5092Nronynizqiy/100 WBC (Bld)14.4 %Normal.German HospitalComment on above: Performed By: #### CBC, MG, CMP #### [facility] [address] Auto (RBC) [Entitic mass]Ordered By: Sabi Choudhury on 47-01-0263QQI (RBC) [Entitic mass]MCH [Entitic mass] by Automated count27.5-35.2 [facility] [Entitic mass] by Automated countOrdered By: Sabi Choudhury on 66-83-0522JXA (RBC) [Entitic mass]29.8 rjNnsytr24.5-35.2 German HospitalComment on above:Performed By: #### CBC, MG, CMP #### [facility] [address] [place], [place] [id number] [facility] Auto (RBC) [Mass/Vol]Ordered By: Sabi Choudhury on 89-18-5558IMUY (RBC) [Mass/Vol]MCHC [Mass/volume] by Automated count32.5-35.6 [facility] HospitalHC (RBC) [Mass/Vol]33.3 g/dL32.5-35.6 [facility] HospitalV Auto (RBC) [Entitic vol]Ordered By: Sabi Choudhury on 52-34-4001VAT (RBC) [Entitic vol]MCV [Entitic volume] by Automated count 83.5-101German HospitalMCV [Entitic volume] by Automated count Ordered By: Sabi Choudhury on 64-99-3368FEL (RBC) [Entitic vol]89.6 fLNormal 83.5-101German HospitalComment on above:Performed By: #### CBC, MG, CMP #### [place] [address] USAMagnesium [Mass/volume] in Serum or PlasmaOrdered By: Sabi Choudhury on 26-80-4644Owdgrcfbn [Mass/Vol]Magnesium [Mass/volume] in Serum or PlasmaLow1.9-2.7FOhioHealth Pickerington Methodist HospitalMagnesium [Mass/Vol]1.7 mg/dLLow1.9-2.7FOhioHealth Pickerington Methodist HospitalComment on above:Result Comment: PERFORMED BY: [place] [address] PATHOLOGIST ROUGE SIFTER PEARL OLSON M.D.Performed By: #### CBC, MG, CMP #### [place] [address] USAMonocytes Auto (Bld) [#/Vol]Ordered By: Sabi Choudhury on 35-61-4556Gbzoxnnvq (Bld) [#/Vol]Automated blood monocyte count0.0-0.8German HospitalMonocytes [#/volume] in Blood by Automated countOrdered By: Sabi Choudhury on 39-97-5450Adcuztwoe (Bld) [#/Vol]0.6 10*3/uLNormal0.0-0.8 German HospitalComment on above:Performed By: #### CBC, MG, CMP #### [facility] [address] [place] [address] USAMonocytes/100 WBC Auto (Bld)Ordered By: Sabi Choudhury on 01-72-9764Rcnbtfrea/100 WBC (Bld)Automated monocyte %.German HospitalMonocytes/100 leukocytes in Blood by Automated countOrdered By: Sabi Choudhury on 14-84-8327Jrirxqkvp/100 WBC (Bld)14.4 %Normal.German HospitalComment on above:Performed By: #### CBC, MG, CMP #### [facility] [address] [id number] USANeutrophils Auto (Bld) [#/Vol]Ordered By: Sabi Choudhury on 60-36-5320Nuljvieahvl (Bld) [#/Vol]Neutrophils [#/volume] in Blood by Automated count1.8-7.7FOhioHealth Pickerington Methodist HospitalNeutrophils [#/volume] in Blood by Automated countOrdered By: Sabi Choudhury on 42-08-0752Jaarsrxjajp (Bld) [#/Vol] 3.0 10*3/uLNormal1.8-7.7FOhioHealth Pickerington Methodist HospitalComment on above: Performed By: #### CBC, MG, CMP #### [facility] [address] [id number] USANeutrophils/100 WBC Auto (Bld)Ordered By: Sabi Choudhury on 77-67-3238Hjtrbrhagig/100 WBC (Bld)Automated neutrophil %.German HospitalNeutrophils/100 leukocytes in Blood by Automated countOrdered By: Sabi Choudhury on 71-65-7668Snbrhdoorgn/100 WBC (Bld)66.0 %Normal.German HospitalComment on above:Performed By: #### CBC, MG, CMP #### [facility] [address] [place], [place] [phone] USANucleated erythrocytes [Presence] in Blood by Automated countOrdered By: Sabi Choudhury on 73-50-6244Kkjdweocm RBC Auto Ql (Bld)Nucleated erythrocytes [Presence] in Blood by Automated count0-0.5FOhioHealth Pickerington Methodist HospitalNucleated RBC Auto Ql (Bld)0.1 /100{WBC}0-0.5FOhioHealth Pickerington Methodist HospitalPlatelet mean volume Auto (Bld) [Entitic vol]Ordered By: Sabi Choudhury on 42-94-2510Vpyqcvwp mean volume (Bld) [Entitic vol]Platelet mean volume [Entitic volume] in Blood by Automated count6.6-10.1FOhioHealth Pickerington Methodist HospitalPlatelet mean volume [Entitic volume] in Blood by Automated countOrdered By: Sabi Choudhury on 78-47-8951Gifemtpq mean volume (Bld) [Entitic vol]7.8 fL Normal6.6-10.1FOhioHealth Pickerington Methodist HospitalComment on above:Performed By: #### CBC, MG, CMP #### [facility] [address] [place] [address] USAPlatelets Auto (Bld) [#/Vol]Ordered By: Sabi Choudhury on 07-50-6280Bajyablry (Bld) [#/Vol]Platelets [#/volume] in Blood by Automated zinui695-793JqqjltjcoGerman HospitalPlatelets [#/volume] in Blood by Automated countOrdered By: Sabi Choudhury on 12-64-7765Vlfxnkmhm (Bld) [#/Vol]350 10*3/fZJxgauv969-579TwpqjuzdwGerman HospitalComment on above:Performed By: #### CBC, MG, CMP #### [facility] [address] [id number] USAProtein [Mass/volume] in Serum or PlasmaOrdered By: Sabi Choudhury on 93-65-0153Wriypxy [Mass/Vol]Protein [Mass/volume] in Serum or PlasmaLow6.4-8.9German HospitalProtein [Mass/Vol]6.3 g/dLLow 6.4-8.9German HospitalComment on above:Performed By: #### CBC, MG, CMP #### [facility] [address] [id number] USARBC Auto (Bld) [#/Vol]Ordered By: Sabi Choudhury on 01-21-0025GMZ (Bld) [#/Vol]Erythrocytes [#/volume] in Blood by Automated count Low3.90-5.60[facility] Charles Hospitalerum globulin measurement by calculation (mass/volume)Ordered By: Sabi Choudhury on 67-80-8945Vcznoxqf (S) [Mass/Vol]2.5 g/dLNormalGerman HospitalComment on above: Performed By: #### CBC, MG, CMP #### [facility] [address] [place] [address] USASerum or plasma albumin/globulin mass ratioOrdered By: Sabi Choudhury on 82-69-4405Iafkeis/Globulin [Mass ratio]Serum or plasma albumin/globulin mass ratioGerman HospitalAlbumin/Globulin [Mass ratio]1.5 {ratio}NormalGerman HospitalComment on above: Performed By: #### CBC, MG, CMP #### [facility] [address] [place] [address] USAWBC Auto (Bld) [#/Vol]Ordered By: Sabi Choudhury on 67-88-4169QLD (Bld) [#/Vol]Leukocytes [#/volume] in Blood by Automated count 4.1-10.5FOhioHealth Pickerington Methodist HospitalAlanine aminotransferase [Enzymatic activity/volume] in Serum or PlasmaOrdered By: Ayesha Hunter on 41-18-2520OWU [Catalytic activity/Vol]Alanine aminotransferase [Enzymatic activity/volume] in Serum or Plasma7-52German HospitalAlbumin [Mass/volume] in Serum or Plasma by Bromocresol green (BCG) dye binding methoOrdered By: Ayesha Hunter on 74-04-7310Jbcygmd BCG dye [Mass/Vol]Albumin [Mass/volume] in Serum or Plasma by Bromocresol green (BCG) dye binding metho3.5-5.7FOhioHealth Pickerington Methodist HospitalAlkaline phosphatase [Enzymatic activity/volume] in Serum or PlasmaOrdered By: Ayesha Hunter on 18-00-6275XMA [Catalytic activity/Vol]Alkaline phosphatase [Enzymatic activity/volume] in Serum or Gnlnaj74-153YsidhjmehGerman HospitalAmphetamine Screen Ql (U)Ordered By: Ayesha Hunter on 66-75-5988Ybwqxjjkwrxe Ql (U)Amphetamines screenNegativeGerman HospitalAmphetamines Ql (U)NegativeNegativeGerman HospitalAppearance of UrineOrdered By: Ayesha Hunter on 10-43-8567Wugwicvnev (U) Urine appearanceClearFOhioHealth Pickerington Methodist HospitalAppearance (U)ClearNormal ClearGerman HospitalComment on above:Order Comment: Name Collection Type:: Clean-Voided MidstreamPerformed By: #### LYTES, CBC, LIPID, PP, BUN, CREAT #### [facility] [address] [id number] USAAspartate aminotransferase [Enzymatic activity/volume] in Serum or PlasmaOrdered By: Ayesha Hunter on 52-88-5853XEU [Catalytic activity/Vol] Aspartate aminotransferase [Enzymatic activity/volume] in Serum or Soawgw02-98 German HospitalBNP ser/plasOrdered By: Ayeshajordan Hunter on 54-43-2336Deqdodoszjv peptide B (Bld) [Mass/Vol]2602.0 pg/mLHigh5-100German HospitalComment on above:Result Comment: PERFORMED BY: [place] [address] PATHOLOGIST ROUGE SIFTER PEARL OLSON M.D.Performed By: #### LYTES, CBC, LIPID, PP, BUN, CREAT #### [facility] [address] [place] [address] USABarbiturates [Presence] in Urine by Screen methodOrdered By: Ayesha Hunter on 31-01-3122Xnsrtoqcmhdm Screen Ql (U)Barbiturates [Presence] in Urine by Screen methodNegDiley Ridge Medical CenterBarbiturates Screen Ql (U)NegativeNegDiley Ridge Medical CenterBasophils Auto (Bld) [#/Vol]Ordered By: Ayesha Huntre on 28-47-0663Aqcoiavhb (Bld) [#/Vol] Automated basophil count0.0-0.2FOhioHealth Pickerington Methodist HospitalBasophils/100 WBC Auto (Bld)Ordered By: Ayeshajordan Hunter on 66-74-8744Srihwtqym/100 WBC (Bld) Automated basophil %.German HospitalBenzodiazepines Screen Ql (U)Ordered By: Ayesha Hunter on 77-61-8360Mrbanchztyoyswr Ql (U)Benzodiazepines [Presence] in Urine by Screen methodNegDiley Ridge Medical Center Benzodiazepines Ql (U)NegativeNegDiley Ridge Medical Center Benzoylecgonine [Presence] in Urine by Screen methodOrdered By: Ayesha Hunter on 35-43-5082Vgagmxcyqfwpfns Screen Ql (U)Benzoylecgonine [Presence] in Urine by Screen methodNegativeGerman HospitalBenzoylecgonine Screen Ql (U)NegativeNegativeGerman HospitalBilirubin Test strip Ql (U) Ordered By: Ayesha Hunter on 77-41-0745Erthtactd Ql (U)Bilirubin.total [Presence] in Urine by Test stripNegativeGerman HospitalBilirubin Ql (U) NegativeNegativeGerman HospitalBilirubin.total [Mass/volume] in Serum or PlasmaOrdered By: Ayesha Hunter on 55-38-4080Dpjivxdkv [Mass/Vol] Bilirubin.total [Mass/volume] in Serum or Plasma0.3-1.0German HospitalBlood Cultureon 38-35-9209Rshxvjoi identified Cx Nom (Bld)NO GROWTH 5 DAYS PERFORMED BY: [place] [address] PATHOLOGIST ROUGE SIFTER PEARL OLSON M.D.[facility] Physician GroupComment on above: Performed By: #### LYTES, CBC, LIPID, PP, BUN, CREAT #### [place] [address] USACOVID Cepheid NegativeOrdered By: Sabi Choudhury on 94-46-3405VWUU-CoV-2 (COVID-19) Ab IA QlCOVID CepheidNegDiley Ridge Medical CenterComment on above:This is a duplicate Cepheid Xpert Xpress CoV- 2/Flu/RSV Plus RNA by RT-PCR result to be used for statistical tracking purpose only.SARS-CoV-2 (COVID-19) Ab IA QlNegativeNegDiley Ridge Medical CenterComment on above:This is a duplicate Cepheid Xpert Xpress CoV-2/Flu/RSV Plus RNA by RT-PCR result to be used for statistical tracking purpose only. COVID-19 / Flu A/B / RSV PCRon 70-58-7453JGJT-CoV-2 (COVID-19) RNA AMARJIT+probe Ql (Unsp spec)COVID-19 Cepheid Result Negative for SARS-CoV-2 RNA by RT-PCR Flu A Cepheid Result Negative for Flu A RNA by RT-PCR Flu B Cepheid Result Negative for Flu B RNA by RT-PCR RSV Cepheid Result Negative for RSV RNA by RT-PCR COVID19 Blank Space Reference: Negative COVID19 Blank Space Cepheid Disclaimer The Cepheid Xpert Xpress CoV-2/Flu/RSV [...] or Cepheid Disclaimer revoked sooner. PERFORMED BY: [facility] [place] [address] PATHOLOGIST ROUGE SIFTER PEARL OLSON M.D.[facility] Physician GroupComment on above: Performed By: #### LYTES, CBC, LIPID, PP, BUN, CREAT #### [facility] [address] [place] [address] USACT head/brain wo conon [id number] head/brain wo con [facility] [address] [place] [address] [place] [id number] Scan Report Signed Patient: Morgan Latham MR#: [id number] : 1965 Acct:[id number] Age/Sex: 59 / M ADM Date: 01/06/25 Loc: Room: [address] [place] [address] Type: DIS IN Attending Dr: Jud Hutchison [...] Browning M.D. 01/06/2025 12:07 PM Dictation Location: [place] [address] Transcribed By: [facility] 01/06/25 1207 Dictated By: Robinson Browning MD 01/06/25 1158 Signed By: 01/06/25 1207NoIredell Memorial Hospital Physician GroupCalcium [Mass/volume] in Serum or PlasmaOrdered By: Ayesha Hunter on 91-86-5682Rghstaz [Mass/Vol]Calcium [Mass/volume] in Serum or Plasma8.6-10.3FOhioHealth Pickerington Methodist Hospital Cannabinoids [Presence] in Urine by Screen methodOrdered By: Ayesha Hunter on 94-80-5860Iabnmygyuyko Screen Ql (U)Cannabinoids [Presence] in Urine by Screen methodNegativeGerman HospitalComment on above:These are unconfirmed results and should not be used for legal purposes. Drug Cut-Off Concentration: AMPH 1000 ng/mL KATIE 200 ng/mL KETAN 200 ng/mL COCM 300 ng/mL OP 300 ng/mL PCP 25 ng/mL THC 20 ng/mLCannabinoids Screen Ql (U)NegativeNegative German HospitalComment on above:These are unconfirmed results and should not be used for legal purposes. Drug Cut-Off Concentration: AMPH 1000 ng/mL KATIE 200 ng/mL KETAN 200 ng/mL COCM 300 ng/mL OP 300 ng/mL PCP 25 ng/mL THC 20 ng/mLCarbon dioxide, total [Moles/volume] in Serum or PlasmaOrdered By: Ayesha Hunter on 71-11-8502LM4 [Moles/Vol]Carbon dioxide, total [Moles/volume] in Serum or Vzylqo02.0-31.0German HospitalCepheid COVID PCR Negativeon 80-46-5633OATQ-CoV-2 (COVID-19) RNA AMARJIT+probe Ql (Unsp spec)Negative NormalNegativeThe Formerly [facility] Physician GroupComment on above:Result Comment: This is a duplicate Akanoo Xpert Xpress CoV-2/Flu/RSV Plus RNA by RT-PCR result to be used for statistical tracking purpose only. PERFORMED BY: [place] [address] PATHOLOGIST ROUGE SIFTER PEARL OLSON M.D.Performed By: #### LYTES, CBC, LIPID, PP, BUN, CREAT #### [place] [address] USAChloride [Moles/volume] in Serum or PlasmaOrdered By: Ayesha Hunter on 43-16-1714Rnqcmwnf [Moles/Vol]Chloride [Moles/volume] in Serum or Wskfra71-572PlqftvimbGerman HospitalColor Auto (U)Ordered By: Ayesha Hunter on 88-23-3190Rlzsg (U)Color of Urine by AutoYellowGerman HospitalColor of Urine by AutoOrdered By: Ayesha Hunter on 50-52-7441Htlxr (U)ColorlessNormalYellowGerman HospitalComment on above:Order Comment: Name Collection Type:: Clean-Voided MidstreamPerformed By: #### LYTES, CBC, LIPID, PP, BUN, CREAT #### [place] [address] USAComplete Blood Count Auto Diffon 08-45-0676Givmxymzx (Bld) [#/Vol]0.0 10*3/uLNormal0.0-0.2The [facility] Physician GroupComment on above: Result Comment: PERFORMED BY: [place] [address] PATHOLOGIST ROUGE SIFTER PEARL OLSON M.D.Performed By: #### LYTES, CBC, LIPID, PP, BUN, CREAT #### [place] [address] USABasophils/100 WBC (Bld)1.0 %Normal.The [facility] Hospital Physician GroupComment on above:Performed By: #### LYTES, CBC, LIPID, PP, BUN, CREAT #### [place] [address] USAEosinophils (Bld) [#/Vol]0.1 10*3/uLNormal0.0-0.45The Formerly [facility] Physician GroupComment on above:Performed By: #### LYTES, CBC, LIPID, PP, BUN, CREAT #### [place] [address] USAEosinophils/100 WBC (Bld)2.5 %Normal.The [facility] Physician GroupComment on above:Performed By: #### LYTES, CBC, LIPID, PP, BUN, CREAT #### [place] [address] USAErythrocyte distribution width (RBC) [Ratio]16.6 %High 12.0-14.8The Formerly [facility] Physician GroupComment on above:Performed By: #### LYTES, CBC, LIPID, PP, BUN, CREAT #### [place] [address] USAHematocrit (Bld) [Volume fraction]29.5 %Low38.8-50.0The Formerly [facility] Physician GroupComment on above:Performed By: #### LYTES, CBC, LIPID, PP, BUN, CREAT #### [place] [address] USAHemoglobin (Bld) [Mass/Vol]9.8 g/dLLow13.0-17.0The Formerly [facility] Physician GroupComment on above:Performed By: #### LYTES, CBC, LIPID, PP, BUN, CREAT #### [place] [address] USALymphocytes (Bld) [#/Vol]0.4 10*3/uLLow1.00-4.8The Formerly [facility] Physician GroupComment on above:Performed By: #### LYTES, CBC, LIPID, PP, BUN, CREAT #### [place] [address] USALymphocytes/100 WBC (Bld)8.2 %Normal.The [facility] Physician GroupComment on above:Performed By: #### LYTES, CBC, LIPID, PP, BUN, CREAT #### [address]H (RBC) [Entitic mass]30.1 wbHfluyq95.5-35.2The Formerly [facility] Physician GroupComment on above:Performed By: #### LYTES, CBC, LIPID, PP, BUN, CREAT #### [address]V (RBC) [Entitic vol]90.4 yTPsidms20.5-101The Formerly [facility] Physician GroupComment on above:Performed By: #### LYTES, CBC, LIPID, PP, BUN, CREAT #### [place] [address] USAMean Corpuscular HGB Conc33.2 g/jWRtrvgd64.5-35.6The Formerly [facility] Physician GroupComment on above:Performed By: #### LYTES, CBC, LIPID, PP, BUN, CREAT #### [place] [address] USAMonocytes (Bld) [#/Vol]0.5 10*3/uLNormal0.0-0.8The Formerly [facility] Physician GroupComment on above:Performed By: #### LYTES, CBC, LIPID, PP, BUN, CREAT #### [place] [address] USAMonocytes/100 WBC (Bld)20.03 %High0.00-20.00The Formerly [facility] Physician GroupComment on above:Result Comment: For adults in ED, MDW > 20.0 may be associated with a higher risk of sepsis during the first 12 hrs of hospital admissionPerformed By: #### LYTES, CBC, LIPID, PP, BUN, CREAT #### [place] [address] USAMonocytes/100 WBC (Bld)11.9 %Normal.The [facility] Physician GroupComment on above:Performed By: #### LYTES, CBC, LIPID, PP, BUN, CREAT #### [place] [address] USANeutrophils (Bld) [#/Vol]3.5 10*3/uLNormal1.8-7.7The Former[facility] Physician GroupComment on above:Performed By: #### LYTES, CBC, LIPID, PP, BUN, CREAT #### [place] [address] USANeutrophils/100 WBC (Bld)76.4 %Normal.The [facility] Physician GroupComment on above:Performed By: #### LYTES, CBC, LIPID, PP, BUN, CREAT #### [place] [address] USANRBC%0.1 /100{WBC}Normal0-0.5The [facility] Comment on above:Performed By: #### LYTES, CBC, LIPID, PP, BUN, CREAT #### [place] [address] USAPlatelet mean volume (Bld) [Entitic vol]8.0 fLNormal 6.6-10.1The Formerly [facility] Physician GroupComment on above:Performed By: #### LYTES, CBC, LIPID, PP, BUN, CREAT #### [facility] [address] [place] [address] USAPlatelets (Bld) [#/Vol]346 10*3/nTFjbvlf533-325Mcr Formerly [facility] Physician GroupComment on above:Performed By: #### LYTES, CBC, LIPID, PP, BUN, CREAT #### [facility] [address] [place] [address] USARBC (Bld) [#/Vol]3.27 10*6/uLLow3.90-5.60The Formerly [facility] Physician GroupComment on above:Performed By: #### LYTES, CBC, LIPID, PP, BUN, CREAT #### [place] [address] USAWBC (Bld) [#/Vol]4.6 10*3/uLNormal4.1-10.5The [facility]ly [facility] Physician GroupComment on above:Performed By: #### LYTES, CBC, LIPID, PP, BUN, CREAT #### [place] [address] USAComprehensive Metabolic Panelon 53-38-7805Iwplqun [Mass/Vol]4.0 g/dLNormal3.5-5.7The [facility]ly [facility] Physician GroupComment on above: Performed By: #### LYTES, CBC, LIPID, PP, BUN, CREAT #### [place] [address] USAAlbumin/Globulin [Mass ratio]1.5 {ratio}NormalThe Formerly [facility] Physician GroupComment on above:Performed By: #### LYTES, CBC, LIPID, PP, BUN, CREAT #### [place] [address] USAALP [Catalytic activity/Vol]99 U/PAohseg62-467Fms Formerly [facility] Physician GroupComment on above:Performed By: #### LYTES, CBC, LIPID, PP, BUN, CREAT #### [place] [address] USAALT [Catalytic activity/Vol]19 U/LNormal7-52The [facility] Physician GroupComment on above:Performed By: #### LYTES, CBC, LIPID, PP, BUN, CREAT #### [place] [address] USAAnion gap [Moles/Vol]13.2 mmol/LNormal6.0-15.0The [facility] Physician GroupComment on above:Performed By: #### LYTES, CBC, LIPID, PP, BUN, CREAT #### [place] [address] USAAST [Catalytic activity/Vol]24 U/PCwugpn89-36Pog Formerly [facility] Physician GroupComment on above:Performed By: #### LYTES, CBC, LIPID, PP, BUN, CREAT #### [place] [address] USABilirubin [Mass/Vol]0.8 mg/dLNormal0.3-1.0The Formerly [facility] Physician GroupComment on above:Performed By: #### LYTES, CBC, LIPID, PP, BUN, CREAT #### [place] [address] USACalcium [Mass/Vol]8.7 mg/dLNormal8.6-10.3The Formerly [facility] Physician GroupComment on above:Performed By: #### LYTES, CBC, LIPID, PP, BUN, CREAT #### [place] [address] USAChloride [Moles/Vol]104 mmol/WVdxaex65-385Wld Formerly [facility] Physician GroupComment on above:Performed By: #### LYTES, CBC, LIPID, PP, BUN, CREAT #### [place] [address] USACO2 [Moles/Vol]24.8 mmol/KGgkpsv68.0-31.0The [facility] Physician GroupComment on above:Performed By: #### LYTES, CBC, LIPID, PP, BUN, CREAT #### [facility] [address] [place] [address] USACreatinine [Mass/Vol]1.15 mg/dLNormal0.70-1.30The [facility] Physician GroupComment on above:Performed By: #### LYTES, CBC, LIPID, PP, BUN, CREAT #### [facility] [address] [place] [address] USACreatinine Clr Calc Dbaqflth23.42NoIredell Memorial Hospital Physician GroupComment on above:Result Comment: PERFORMED BY: [place] [address] PATHOLOGIST ROUGE SIFTER PEARL OLSON M.D.Performed By: #### LYTES, CBC, LIPID, PP, BUN, CREAT #### [place] [address] USAGFR/1.73 sq M.predicted MDRD (S/P/Bld) [Vol rate/Area] mL/min/{1.73_m2}NormalThe [facility]ly [facility] Physician GroupComment on above:Performed By: #### LYTES, CBC, LIPID, PP, BUN, CREAT #### [place] [address] USAGlobulin (S) [Mass/Vol]2.6 g/dLAdventHealth Deltona ER Physician [facility] MississippiComment on above:Performed By: #### LYTES, CBC, LIPID, PP, BUN, CREAT #### [place] [address] USAGlucose [Mass/Vol]115 mg/pBQsmw40-919Coy [facility] Physician GroupComment on above:Result Comment: Random Glucose Reference Range is dependent on time and content of last meal. Glucose of more than 200 mg/dL in a nonstressed, ambulatory subject supports the diagnosis of Diabetes Mellitus. ADA recommended reference rangePerformed By: #### LYTES, CBC, LIPID, PP, BUN, CREAT #### [place] [address] USAPotassium [Moles/Vol]4.0 mmol/LNormal3.5-5.1The [facility] Physician GroupComment on above:Performed By: #### LYTES, CBC, LIPID, PP, BUN, CREAT #### [place] [address] USAProtein [Mass/Vol]6.6 g/dLNormal6.4-8.9The [facility] Physician GroupComment on above:Performed By: #### LYTES, CBC, LIPID, PP, BUN, CREAT #### [place] [address] USASodium [Moles/Vol]138 mmol/PQovzdw712-472Vme [facility] Physician GroupComment on above:Performed By: #### LYTES, CBC, LIPID, PP, BUN, CREAT #### [place] [address] USAUrea nitrogen [Mass/Vol]18 mg/dLNormal7-25The [facility] Physician GroupComment on above:Performed By: #### LYTES, CBC, LIPID, PP, BUN, CREAT #### [place] [address] USACreatine kinase [Enzymatic activity/volume] in Serum or PlasmaOrdered By: Ayesha Hunter on 76-38-8315CC [Catalytic activity/Vol]Creatine kinase [Enzymatic activity/volume] in Serum or Kdfvmu96-817PaakqkjooGerman HospitalCK [Catalytic activity/Vol]116 U/OLktvko00-862YpgygzvahGerman HospitalComment on above:Performed By: #### LYTES, CBC, LIPID, PP, BUN, CREAT #### [place] [address] USACreatinine [Mass/volume] in Serum or PlasmaOrdered By: Ayesha Hunter on 85-06-3847Wpzenbmgox [Mass/Vol]Creatinine [Mass/volume] in Serum or Plasma0.70-1.30German HospitalDrug Screen,Urineon 96-21-8023Eeizxnefowg Screen,UrineNegativeNormalNegativeThe [facility] Physician GroupComment on above:Performed By: #### LYTES, CBC, LIPID, PP, BUN, CREAT #### [place] [address] USABarbiturate Screen,UrineNegativeNormalNegativeThe [facility]ly [facility] Physician GroupComment on above:Performed By: #### LYTES, CBC, LIPID, PP, BUN, CREAT #### [place] [address] USABenzodiazepines Screen,UrineNegativeNormalNegativeThe [facility]ly [facility] Physician GroupComment on above:Performed By: #### LYTES, CBC, LIPID, PP, BUN, CREAT #### [place] [address] USACannabinoid Screen,UrineNegativeNormalNegativeThe [facility]ly [facility] Physician GroupComment on above:Result Comment: These are unconfirmed results and should not be used for legal purposes. Drug Cut-Off Concentration: AMPH 1000 ng/mL KATIE 200 ng/mL KETAN 200 ng/mL COCM 300 ng/mL OP 300 ng/mL PCP 25 ng/mL THC 20 ng/mL PERFORMED BY: [place] [address] PATHOLOGIST ROUGE SIFTER PEARL OLSON M.D.Performed By: #### LYTES, CBC, LIPID, PP, BUN, CREAT #### [place] [address] USACocaine Screen,UrineNegativeNormalNegativeSanta Rosa Medical Center Physician GroupComment on above:Performed By: #### LYTES, CBC, LIPID, PP, BUN, CREAT #### [place] [address] USAOpiate Screen,UrinePositiveHighNegativeThe [facility] Physician GroupComment on above:Performed By: #### LYTES, CBC, LIPID, PP, BUN, CREAT #### [place] [address] USAPhencyclidine Screen,UrineNegativeNormalNegativeThe [facility] Physician GroupComment on above:Performed By: #### LYTES, CBC, LIPID, PP, BUN, CREAT #### [place] [address] USAECG 12 lead ECGon 47-19-4442LXP 12 lead ECGUNIVERSITY HOSPITALS [facility] [place] [address] [place] [address] Electrocardiograph Report Signed Patient: Morgan Latham MR#: [id number] : 1965 Acct:[id number] Age/Sex: 59 / M ADM Date: 01/06/25 Loc: Room: [address] [place] [address] Type: ADM IN Attending Dr: Sabi Choudhury [...] bundle branch block Confirmed by Ayesha Hunter ([id number]) on 01/06/2025 3:44:03 PM Referred By: Electronically Signed By: Ayesha Hunter Transcribed By: MUS Signed By Ayesha Hunter Do 5 1544Ad[facility] ER Physician GroupEosinophils Auto (Bld) [#/Vol]Ordered By: Ayesha Hunter on 57-67-2865Rszoyrjfhtd (Bld) [#/Vol]Automated eosinophil count 0.0-0.45German HospitalEosinophils/100 WBC Auto (Bld)Ordered By: Ayesha Hunter on 77-42-4103Krsaeyhrcmq/100 WBC (Bld)Automated eosinophil %. German HospitalErythrocyte distribution width Auto (RBC) [Ratio]Ordered By: Ayesha Hunter on 47-08-2864Caegdclnvlb distribution width (RBC) [Ratio]Erythrocyte distribution width [Ratio] by Automated ubxsfUibv19.0-14.8 German HospitalEthanol [Mass/volume] in Serum or PlasmaOrdered By: Ayesha Hunter on 40-87-2161Tvtdbdt [Mass/Vol]Ethanol [Mass/volume] in Serum or PlasmaGerman HospitalComment on above:Test not performed Ethanol [Mass/Vol]mg/dLNoMercy Health Defiance HospitalComment on above: Performed By: #### LYTES, CBC, LIPID, PP, BUN, CREAT #### [facility] [address] [place] [address] USAEthyl Alcohol Profileon 07-41-9483Eetjmnq EthanolNot performedNoIredell Memorial Hospital Physician GroupComment on above:Result Comment: PERFORMED BY: [facility] [address] [place] [address] PATHOLOGIST ROUGE SIFTER PEARL OLSON M.D.Performed By: #### LYTES, CBC, LIPID, PP, BUN, CREAT #### [facility] [address] [place] [address] USAGlobulin Calc (S) [Mass/Vol]Ordered By: Ayesha Hunter on 43-69-7721Rzqtbael (S) [Mass/Vol]Serum globulin measurement by calculation (mass/volume)German HospitalGlucose [Mass/volume] in Serum or PlasmaOrdered By: Ayesha Hunter on 81-77-2706Vtaerhq [Mass/Vol]Glucose [Mass/volume] in Serum or VjermcOctk88-087YzlhztiflGerman Hospital Comment on above:ADA recommended reference rangeRandom Glucose Reference Range is dependent on time and content of last meal. Glucose of more than 200 mg/dL in a nonstressed, ambulatory subject supports the diagnosisof Diabetes Mellitus. Glucose [Mass/volume] in Urine by Test stripOrdered By: Ayesha Hunter on 53-56-3358Iqoxtag Test strip (U) [Mass/Vol]Glucose [Mass/volume] in Urine by Test stripNoMercy Health Defiance HospitalGlucose Test strip (U) [Mass/Vol]Normal mg/dLNoMercy Health Defiance HospitalHematocrit Auto (Bld) [Volume fraction]Ordered By: Ayesha Hunter on 42-90-5728Nufjkwjqyq (Bld) [Volume fraction]Hematocrit [Volume Fraction] of Blood by Automated countLow 38.8-50.0German HospitalHemoglobin Test strip Ql (U)Ordered By: Ayesha Hunter on 64-46-5775Koarblqitm Ql (U)Hemoglobin [Presence] in Urine by Test stripNegativeGerman HospitalHemoglobin Ql (U)Negative NegativeGerman HospitalHemoglobin [Mass/volume] in Blood Ordered By: Ayesha Hunter on 98-30-2552Vyuqxpomsf (Bld) [Mass/Vol]Hemoglobin [Mass/volume] in XxbzcIzk39.0-17.0German HospitalKetones Test strip Ql (U)Ordered By: Ayesha Hunter on 10-43-3421Jgcofwg Ql (U)Ketones [Presence] in Urine by Test stripNegativeGerman Hospital Ketones [Presence] in Urine by Test stripOrdered By: Ayesha Hunter on 01-06-2025 Ketones Ql (U)NegativeNormalNegativeGerman HospitalComment on above:Order Comment: Name Collection Type:: Clean-Voided MidstreamPerformed By: #### LYTES, CBC, LIPID, PP, BUN, CREAT #### [facility] [address] [place] [address] USALaboratory - Microbiology and Antimicrobial susceptibility Ordered By: Ayesha Hunter on 13-00-6905Ccjofjzu identified Cx Nom (Bld)NO GROWTH 5 DAYSGerman HospitalLactate [Moles/volume] in Serum or Plasma Ordered By: Ayesha Hunter on 42-77-7176Xuzhtvu [Moles/Vol]Lactate [Moles/volume] in Serum or Plasma0.5-1.9German HospitalComment on above: Lactic Acid reference range has been updated to 0.5 1.9 mmol/L and the critical range of 2.0 or greater.Lactate [Moles/Vol]0.7 mmol/LNormal0.5-1.9German HospitalComment on above:Lactic Acid reference range has been updated to 0.5 1.9 mmol/L and the critical range of 2.0 or greater.Result Comment: Lactic Acid reference range has been updated to 0.5 ? 1.9 mmol/L and the critical range of 2.0 or greater. PERFORMED BY: [place] [address] PATHOLOGIST ROUGE SIFTER PEARL OLSON M.D.Performed By: #### LYTES, CBC, LIPID, PP, BUN, CREAT #### [facility] [address] [place] [id number] USALeukocyte esterase [Presence] in Urine by Test strip Ordered By: Ayesha Hunter on 81-82-6085Oqadgfzbv esterase Test strip Ql (U) Leukocyte esterase [Presence] in Urine by Test stripNegativeGerman HospitalLeukocyte esterase Test strip Ql (U)NegativeNormalNegative German HospitalComment on above:Order Comment: Name Collection Type:: Clean-Voided MidstreamPerformed By: #### LYTES, CBC, LIPID, PP, BUN, CREAT #### [facility] [address] [place] [address] USALeukocytes [#/volume] corrected for nucleated erythrocytes in Blood by Automated counOrdered By: Ayesha Hunter on 87-19-5050QBX corrected for nucl RBC Auto (Bld) [#/Vol]Leukocytes [#/volume] corrected for nucleated erythrocytes in Blood by Automated coun4.1-10.5FOhioHealth Pickerington Methodist Hospital Lymphocytes Auto (Bld) [#/Vol]Ordered By: Ayesha Hunter on 81-26-8891Qnjztmoeknt (Bld) [#/Vol]Lymphocytes [#/volume] in Blood by Automated countLow1.00-4.8 German HospitalLymphocytes/100 WBC Auto (Bld)Ordered By: Ayesha Hunter on 53-43-9383Dkiartkzylp/100 WBC (Bld)Lymphocytes/100 leukocytes in Blood by Automated count.[facility] HospitalH Auto (RBC) [Entitic mass]Ordered By: Ayesha Hunter on 47-45-5574DKI (RBC) [Entitic mass]MCH [Entitic mass] by Automated count27.5-35.2FOhioHealth Pickerington Methodist HospitalMCHC Auto (RBC) [Mass/Vol]Ordered By: Ayesha Hunter on 97-86-3562UAWO (RBC) [Mass/Vol] MCHC [Mass/volume] by Automated count32.5-35.6FOhioHealth Pickerington Methodist Hospital MCV Auto (RBC) [Entitic vol]Ordered By: Ayesha Hunter on 70-32-6753NMM (RBC) [Entitic vol]MCV [Entitic volume] by Automated count83.5-101German HospitalMonocyte distribution width [Entitic volume] in Blood by Automated Ordered By: Ayesha Hunter on 36-96-1421Iltpxhlu distribution width Auto (Bld) [Entitic vol]Monocyte distribution width [Entitic volume] in Blood by Automated High0.00-20.00German HospitalComment on above:For adults in ED, MDW > 20.0 may be associated with a higher risk of sepsis during the first 12 hrs of hospital admissionMonocyte distribution width Auto (Bld) [Entitic vol] 20.03 %High0.00-20.00German HospitalComment on above:For adults in ED, MDW > 20.0 may be associated with a higher risk of sepsis during the first 12 hrs of hospital admissionMonocytes Auto (Bld) [#/Vol]Ordered By: Ayesha Hunter on 43-35-3536Qhnftblqc (Bld) [#/Vol]Automated blood monocyte count 0.0-0.8German HospitalMonocytes/100 WBC Auto (Bld)Ordered By: Ayesha Hunter on 18-60-4763Nsnpudtxa/100 WBC (Bld)Automated monocyte %.German HospitalNatriuretic peptide B [Mass/Vol]Ordered By: Ayesha Hunter on 32-43-0386Tjumoiikaeh peptide B (Bld) [Mass/Vol]BNP ser/plasHigh5-100 German HospitalNeutrophils Auto (Bld) [#/Vol]Ordered By: Ayesha Hunter on 01-07-4997Rkawsmglpfq (Bld) [#/Vol]Neutrophils [#/volume] in Blood by Automated count1.8-7.7FOhioHealth Pickerington Methodist HospitalNeutrophils/100 WBC Auto (Bld)Ordered By: Ayesha Hunter on 72-17-2009Kdpyfecwdzb/100 WBC (Bld) Automated neutrophil %.German HospitalNitrite Test strip Ql (U)Ordered By: Ayesha Hunter on 52-98-8520Bcnhxlx Ql (U)Nitrite [Presence] in Urine by Test stripNegDiley Ridge Medical CenterNitrite Ql (U) NegativeNegativeGerman HospitalNo Panel InformationOrdered By: Ayesha Hunter on 80-38-9764Znrhvwoju GFR (CKD-EPI)> 60.0 mL/MinGerman HospitalPharmacy Creatinine Clearance (Chem75.42German HospitalNucleated erythrocytes [Presence] in Blood by Automated count Ordered By: Ayesha Hunter on 83-42-3441Paudjicpu RBC Auto Ql (Bld)Nucleated erythrocytes [Presence] in Blood by Automated count0-0.5FOhioHealth Pickerington Methodist HospitalOpiates [Presence] in Urine by Screen methodOrdered By: Ayesha Hunter on 56-63-8836Vxnghvf Screen Ql (U)Opiates [Presence] in Urine by Screen methodHighNegDiley Ridge Medical CenterOpiates Screen Ql (U)Positive HighNegDiley Ridge Medical CenterPhencyclidine Screen Ql (U)Ordered By: Ayesha Hunter on 31-15-2293Pqmbfovgrxmdm Ql (U)Phencyclidine [Presence] in Urine by Screen methodNegDiley Ridge Medical CenterPhencyclidine Ql (U)NegativeNegativeGerman HospitalPlatelet mean volume Auto (Bld) [Entitic vol]Ordered By: Ayesha Hunter on 11-65-1285Gigwulvb mean volume (Bld) [Entitic vol]Platelet mean volume [Entitic volume] in Blood by Automated count6.6-10.1FOhioHealth Pickerington Methodist HospitalPlatelets Auto (Bld) [#/Vol] Ordered By: Ayesha Hunter on 35-73-4547Obonbttne (Bld) [#/Vol]Platelets [#/volume] in Blood by Automated -209AgkyfbuneGerman HospitalPotassium [Moles/volume] in Serum or PlasmaOrdered By: Ayesha Hunter 55-91-6151Cucfahelb [Moles/Vol]Potassium [Moles/volume] in Serum or Plasma3.5-5.1FOhioHealth Pickerington Methodist HospitalProtein Test strip (U) [Mass/Vol]Ordered By: Ayesha Hunter on 98-96-3742Lvqhexi (U) [Mass/Vol]Protein [Mass/volume] in Urine by Test strip NegativeGerman HospitalProtein (U) [Mass/Vol]NegativeNegative German HospitalProtein [Mass/volume] in Serum or PlasmaOrdered By: Ayesha Hunter on 52-77-3494Ujbazqn [Mass/Vol]Protein [Mass/volume] in Serum or Plasma6.4-8.9German HospitalRBC Auto (Bld) [#/Vol]Ordered By: Ayesha Hunter on 25-98-1059XTO (Bld) [#/Vol]Erythrocytes [#/volume] in Blood by Automated countLow3.90-5.60German HospitalRespiratory specimen influenza A virus, influenza B virus, respiratory syncytical virOrdered By: Sabi Choudhury on 53-46-9752WAZW-CoV-2 (COVID-19) RNA AMARJIT+probe Ql (Unsp spec)Respiratory specimen influenza A virus, influenza B virus, respiratory syncytical virMercy Health St. Charles HospitalARS-CoV-2 (COVID-19) RNA AMARJIT+probe Ql (Unsp spec)[facility] St. Charles Hospitalerum or plasma albumin/globulin mass ratioOrdered By: Ayesha Hunter on 18-68-2970Bpponnn/Globulin [Mass ratio]Serum or plasma albumin/globulin mass ratioMercy Health St. Charles Hospitalerum or plasma anion gap determinationOrdered By: Ayesha Hunter on 47-91-3656Famwm gap [Moles/Vol]Serum or plasma anion gap determination6.0-15.[address] Charles Hospitalerum or plasma ethanol measurement (mass/volume)Ordered By: Ayesha Hunter on 45-78-3040Ujwdlal [Mass/Vol]TNPGerman HospitalComment on above:Test not performedSodium [Moles/volume] in Serum or PlasmaOrdered By: Ayesha Hunter on 43-34-9308Vlrhbz [Moles/Vol]Sodium [Moles/volume] in Serum or Qhuemm203-819BfhlgtjrwGerman Hospital Specific gravity Test strip (U) [Rel density]Ordered By: Ayesha Hunter on 48-13-4995Qbtlicza gravity (U) [Rel density]Specific gravity of Urine by Test strip1.001-1.030Mer[facility] Health St. Charles Hospitalpecific gravity (U) [Rel density]1.0081.001-1.030German HospitalTroponin I High Sensitivityon 43-61-4320Amsretgw I High Oowcmbyntog20Amj scale [address] Physician [facility] Of MississippiComment on above:Result Comment: Critical Result : Called to and read back by: DEAN BRYAN at: 01/06/2025 13:28:33 by:SWATI The Troponin units of report have been changed to meet the Chest Pain Accreditation requirement, element EC5.M1l2. Troponin units are changed from pg/ml to ng/L. Also, the decimal is removed and results are in whole numbers. PERFORMED BY: [place] [address] PATHOLOGIST ROUGE SIFTER PEARL OLSON M.D.Performed By: #### LYTES, CBC, LIPID, PP, BUN, CREAT #### [facility] [address] [place], [place] [id number] USATroponin I High Ejiiubimbsm06Gis scale [address] Physician [facility] Of MississippiComment on above:Result Comment: Critical Result : Called to and read back by: RAMESH DAVIES at: 01/06/2025 11:18:34 by:SWATI The Troponin units of report have been changed to meet the Chest Pain Accreditation requirement, element EC5.M1l2. Troponin units are changed from pg/ml to ng/L. Also, the decimal is removed and results are in whole numbers. PERFORMED BY: [place] [address] PATHOLOGIST ROUGE SIFTER PEARL OLSON M.D.Performed By: #### LYTES, CBC, LIPID, PP, BUN, CREAT #### [facility] [address] [place], [place] [address] USATroponin I.cardiac [Mass/volume] in Serum or Plasma by Detection limit <= 0.01 ng/Ordered By: aSbi Choudhury on 07-84-6390Csrlgiwm I.cardiac DL <= 0.01 ng/mL [Mass/Vol]Troponin I.cardiac [Mass/volume] in Serum or Plasma by Detection limit <= 0.01 ng/Critically [address] Howard StreetComment on above:Critical Result : Called to and read back by: DEAN BRYAN at: 01/06/2025 13:28:33 by:SWATIThe Troponin units of report have been changed to meet the Chest Pain Accreditation requirement, element EC5.M1l2. Troponin units are changed from pg/ml to ng/L. Also, the decimal is removed and results are in whole numbers.Troponin I.cardiac [Mass/volume] in Serum or Plasma by Detection limit <= 0.01 ng/mLOrdered By: Sabi Choudhury on 56-70-0622Tfjhgnsb I.cardiac DL <= 0.01 ng/mL [Mass/Vol]86 ng/LCritically high0-German HospitalComment on above:Critical Result : Called to and read back by: DEAN BRYAN at: 01/06/2025 13:28:33 by:SWATIThe Troponin units of report have been changed to meet the Chest Pain Accreditation requirement, element EC5.M1l2. Troponin units are changed from pg/ml to ng/L. Also, the decimal is removed and results are in whole numbers.Urea nitrogen [Mass/volume] in Serum or PlasmaOrdered By: Ayesha Hunter on 43-02-3594Zugm nitrogen [Mass/Vol]Urea nitrogen [Mass/volume] in Serum or Plasma02-26[facility] Urinalysison 43-95-9115Uxjmeknrb,UrineNegativeNormalNegativeSanta Rosa Medical Center Physician GroupComment on above:Order Comment: Name Collection Type:: Clean- Voided MidstreamPerformed By: #### LYTES, CBC, LIPID, PP, BUN, CREAT #### [facility] [address] [place] [address] USAGlucose Ql (U)NormalNormalNormAscension Sacred Heart Bay Physician GroupComment on above:Order Comment: Name Collection Type:: Clean-Voided MidstreamPerformed By: #### LYTES, CBC, LIPID, PP, BUN, CREAT #### [facility] [address] [place] [address] USANitrite,UrineNegativeNormalNegativeSanta Rosa Medical Center Physician GroupComment on above:Order Comment: Name Collection Type:: Clean-Voided MidstreamPerformed By: #### LYTES, CBC, LIPID, PP, BUN, CREAT #### [place] [address] USAOccult Blood,UrineNegativeNormalNegativeThe Formerly [facility] Physician GroupComment on above:Order Comment: Name Collection Type:: Clean- Voided MidstreamResult Comment: PERFORMED BY: [place] [address] PATHOLOGIST ROUGE SIFTER PEARL OLSON M.D.Performed By: #### LYTES, CBC, LIPID, PP, BUN, CREAT #### [place] [address] USAProtein,UrineNegativeNormalNegativeThe Formerly [facility] Physician GroupComment on above:Order Comment: Name Collection Type:: Clean-Voided MidstreamPerformed By: #### LYTES, CBC, LIPID, PP, BUN, CREAT #### [place] [address] USASpecificy [place],Urine1.010Ofdomo2.001-1.030The [facility] Physician GroupComment on above:Order Comment: Name Collection Type:: Clean- Voided MidstreamPerformed By: #### LYTES, CBC, LIPID, PP, BUN, CREAT #### [place] [address] USAUrobilinogen,UrineNormalNormalNormalThe Formerly [facility] Physician GroupComment on above:Order Comment: Name Collection Type:: Clean- Voided MidstreamPerformed By: #### LYTES, CBC, LIPID, PP, BUN, CREAT #### [place] [address] USAUrobilinogen Test strip (U) [Mass/Vol]Ordered By: Ayesha Hunter on 92-38-5813Upzsszdirojt (U) [Mass/Vol]Urobilinogen [Mass/volume] in Urine by Test stripNoMercy Health Defiance HospitalUrobilinogen (U) [Mass/Vol] Normal mg/dLNoMercy Health Defiance HospitalWBC Auto (Bld) [#/Vol]Ordered By: Ayesha Hunter on 41-59-7957UBE (Bld) [#/Vol]Leukocytes [#/volume] in Blood by Automated count4.1-10.5FOhioHealth Pickerington Methodist HospitalX-ray reportOrdered By: Brooks Gilbert on 14-85-6686Mcqhm reportFIRMETROHEALTH PARMA MEDICAL CENTER Main [address] [address] XRay Report Signed Patient: Morgan Latham MR#: [id number] : 1965 Acct:[id number] Age/Sex: 59 / M ADM Date: 5 Loc: ER Room: Type: [facility] ER Attending Dr: Copies to: [...] Gilbert M.D. 01/06/2025 11:00 AM Dictation Location: [place] [address] Transcribed By: [facility] 01/06/25 1100 Dictated By: Brooks Gilbert II, MD 01/06/25 1054 Signed By: 01/06/25 1100 [facility] Work Phone: XR chest 1V portableon 08-01-3628WR chest 1V portable [facility] Main [address] [address] XRay Report Signed Patient: Morgan Latham MR#: [id number] : 1965 Acct:[id number] Age/Sex: 59 / M ADM Date: 01/06/25 Loc: 4P Room: 6L0086-6 Type: DIS IN Attending Dr: Jud Hutchison [...] Gilbert M.D. 01/06/2025 11:00 AM Dictation Location: [place] [address] Transcribed By: [facility] 01/06/25 1100 Dictated By: Brooks Gilbert II, MD 01/06/25 1054 Signed By: 01/06/25 1100[facility] Physician GrouppH Test strip (U)Ordered By: Ayesha Hunter on 79-19-8822zE (U)pH of Urine by Test strip5.0-9.0German HospitalpH of Urine by Test stripOrdered By: Ayesha Hunter on 82-05-0646qU (U)5.5 [pH]Normal5.0-9.0German HospitalComment on above:Order Comment: Name Collection Type:: Clean-Voided MidstreamPerformed By: #### LYTES, CBC, LIPID, PP, BUN, CREAT #### [place] [address] USACULTURE, AEROBIC AND ANAEROBIC W/GRAM STAINon 12-15-2024 Bacteria identified Cx Nom (Unsp spec)SEE NOTEAbnormalQuest DiagnosticsComment on above:Result Comment: CULTURE, AEROBIC BACTERIA Micro Number: [id number] Test Status: Final Specimen Source: L max [...] combinations, and cephems with staphylococcal indications, including cefazolin.Performed By: #### [id number] #### [facility] [address], [address] [place] [address] Sodium Chlorite Operator: Bear Chaparro MDCULTURE, ANAEROBIC BACTERIA W/GRAM STAINSEE [facility] DiagnosticsComment on above:Result Comment: CULTURE, ANAEROBIC BACTERIA W/GRAM STAIN Micro Number: [id number] Test Status: Final Specimen Source: L max sinus Specimen Quality: Adequate Gram Stain: Few White blood cells seen No organisms seen Result: No anaerobes isolated.Performed By: #### 4446 #### [employer] [address], [address] [place] [address] Sodium Chlorite Operator: Bear VASQUEZ CULTURE, AEROBIC AND ANAEROBIC W/GRAM STAINon 69-15-6410Hutsfncu identified Aer cx Nom (Unsp spec)SEE NOTEAbWood County HospitalComment on above: CULTURE, AEROBIC BACTERIA Micro Number: [id number] Test Status: Final Specimen Source: L max [...] cefazolin. Bacteria identified Anaer cx Nom (Unsp spec)SEE [facility] Valley HospitalComment on above: CULTURE, ANAEROBIC BACTERIA W/GRAM STAIN Micro Number: [id number] Test Status: Final Specimen Source: L max sinus Specimen Quality: Adequate Gram Stain: Few White blood cells seen No organisms seen Result: No anaerobes isolated. Interpretation and review of laboratory resultsAbnormalUniGrant HospitalUnMercy Health Kings Mills HospitalAlanine aminotransferase [Enzymatic activity/volume] in Serum or PlasmaOrdered By: Conchita Ivy on 94-15-9521PUZ [Catalytic activity/Vol]Alanine aminotransferase [Enzymatic activity/volume] in Serum or Plasma7German HospitalALT [Catalytic activity/Vol] 8 U/LNormal[address] [place], [place] [address]Comchildren's hospital of [facility] on above:Performed By: #### LYTES, CBC, LIPID, PP, BUN, CREAT #### [place] [address] USAAlbumin [Mass/volume] in Serum or Plasma by Bromocresol green (BCG) dye binding methoOrdered By: Conchita Ivy on 53-24-5162Eviyqee BCG dye [Mass/Vol]Albumin [Mass/volume] in Serum or Plasma by Bromocresol green (BCG) dye binding metho3.5-5.7FOhioHealth Pickerington Methodist HospitalAlbumin BCG dye [Mass/Vol]4.0 g/dL3.5-5.7FOhioHealth Pickerington Methodist HospitalAlkaline phosphatase [Enzymatic activity/volume] in Serum or PlasmaOrdered By: Conchita Ivy on 28-32-3191HKN [Catalytic activity/Vol]Alkaline phosphatase [Enzymatic activity/volume] in Serum or Fqoyrs88-463Sljohldwj[address] [place], [place] [address]ALP [Catalytic activity/Vol]70 U/FVltipy72-371Ecxdqnekh[address] Comment on above:Performed By: #### LYTES, CBC, LIPID, PP, BUN, CREAT #### [facility] [address] [place] [address] USAAnisocytosis LM Ql (Bld)Ordered By: Conchita Ivy on 88-96-9288Odhjhdihaoqe Ql (Bld)Anisocytosis [Presence] in Blood by Light microscopyGerman HospitalAnisocytosis [Presence] in Blood by Light microscopyOrdered By: Conchita Ivy on 25-87-9292Fwdxdjkkvvvp Ql (Bld) SlightNormalGerman HospitalComment on above:Performed By: #### LYTES, CBC, LIPID, PP, BUN, CREAT #### [place] [address] USAAspartate aminotransferase [Enzymatic activity/volume] in Serum or PlasmaOrdered By: Conchita Ivy on 97-54-5466DZM [Catalytic activity/Vol]Aspartate aminotransferase [Enzymatic activity/volume] in Serum or HhtzeoWzt34-30Ptyscxejv[address] [place], [place] [address]AST [Catalytic activity/Vol]12 U/LCjv55-35Owetwpfmd97 Mosley StreetComment on above:Performed By: #### LYTES, CBC, LIPID, PP, BUN, CREAT #### [place] [address] USABasophils Auto (Bld) [#/Vol]Ordered By: Conchita Ivy on 76-29-0263Haxbbqxjp (Bld) [#/Vol]Automated basophil countGerman HospitalBasophils (Bld) [#/Vol]N/[facility] Basophils/100 WBC Auto (Bld)Ordered By: Conchita Ivy on 11-20-2024 Basophils/100 WBC (Bld)Automated basophil %[facility] Basophils/100 WBC (Bld)N/[facility] HospitalBasophils/100 WBC Manual cnt (Bld)Ordered By: Conchita Ivy on 73-82-1315Qfbfqiibz/100 WBC (Bld) Basophils/100 leukocytes in Blood by Manual count0-[facility]ering[facility] Methodist HospitalBasophils/100 leukocytes in Blood by Manual countOrdered By: Conchita Ivy on 97-96-3027Cahmypfoh/100 WBC (Bld)1 %Normal0-[address] [place], [place] [address]Comment on above:Performed By: #### LYTES, CBC, LIPID, PP, BUN, CREAT #### [facility] [address] [place] [address] USABilirubin.total [Mass/volume] in Serum or PlasmaOrdered By: Conchita Ivy on 64-68-7679Jfwzgcitw [Mass/Vol]Bilirubin.total [Mass/volume] in Serum or Plasma0.3-1.0[facility] Bilirubin [Mass/Vol]0.3 mg/dLNormal0.3-1.0[facility] Comment on above:Performed By: #### LYTES, CBC, LIPID, PP, BUN, CREAT #### [facility] [address] [place] [address] USACalcium [Mass/volume] in Serum or PlasmaOrdered By: Conchita Ivy on 94-17-8532Bizamfz [Mass/Vol]Calcium [Mass/volume] in Serum or Plasma8.6-10.3FOhioHealth Pickerington Methodist HospitalCalcium [Mass/Vol]9.4 mg/dLNormal 8.6-10.3FOhioHealth Pickerington Methodist HospitalComment on above:Performed By: #### LYTES, CBC, LIPID, PP, BUN, CREAT #### [place] [address] USACarbon dioxide, total [Moles/volume] in Serum or Plasma Ordered By: Conchita Ivy on 73-09-2066YZ7 [Moles/Vol]Carbon dioxide, total [Moles/volume] in Serum or Inbqba17.0-31.0German HospitalCO2 [Moles/Vol]29.3 mmol/JEjbdtc19.0-31.0German HospitalComment on above:Performed By: #### LYTES, CBC, LIPID, PP, BUN, CREAT #### [facility] [address] [place] [address] USAChloride [Moles/volume] in Serum or PlasmaOrdered By: Conchita Ivy on 59-60-8958Kvxxnslw [Moles/Vol]Chloride [Moles/volume] in Serum or Mhpkta66-497ExlusalgnGerman HospitalChloride [Moles/Vol]103 mmol/L Qxlmvh16-234ZskrzbehfGerman HospitalComment on above:Performed By: #### LYTES, CBC, LIPID, PP, BUN, CREAT #### [facility] [address] [place] [address] USAComprehensive Metabolic Panelon 76-66-8121Lpbnxep [Mass/Vol]4.0 g/dLNormal3.5-5.7ThBoise Veterans Affairs Medical Center Physician [facility] MississippiComment on above: Performed By: #### LYTES, CBC, LIPID, PP, BUN, CREAT #### [facility] [address] [place] [address] USACreatinine Clr Calc Lfybidja90.55NormAscension Sacred Heart Bay Physician [facility] MississippiComment on above:Performed By: #### LYTES, CBC, LIPID, PP, BUN, CREAT #### [facility] [address] [place] [address] USAGFR/1.73 sq M.predicted MDRD (S/P/Bld) [Vol rate/Area] mL/min/{1.73_m2}[facility] Physician [facility] MississippiComment on above:Performed By: #### LYTES, CBC, LIPID, PP, BUN, CREAT #### [facility] [address] [place] [address] USACreatinine [Mass/volume] in Serum or PlasmaOrdered By: Conchita Ivy on 74-81-0565Uzknkvgggy [Mass/Vol]Creatinine [Mass/volume] in Serum or Plasma0.70-1.30German HospitalCreatinine [Mass/Vol] 1.28 mg/dLNormal0.70-1.30German HospitalComment on above: Performed By: #### LYTES, CBC, LIPID, PP, BUN, CREAT #### [place] [address] USADiff and CBCon 60-49-6929Rlzhb Platelet Tally1 /100{WBC} NormalThe Formerly [facility] Physician GroupComment on above:Performed By: #### LYTES, CBC, LIPID, PP, BUN, CREAT #### [place] [address] USAMean Corpuscular HGB Conc33.4 g/xCKlwyki79.5-35.6The [facility] Physician GroupComment on above:Performed By: #### LYTES, CBC, LIPID, PP, BUN, CREAT #### [place] [address] USAMicrocytosisSlightAdventHealth Deltona ER Physician Group Comment on above:Performed By: #### LYTES, CBC, LIPID, PP, BUN, CREAT #### [place] [address] USANucleated Red Blood Cell1 /100{WBC}High0-0The [facility] Physician GroupComment on above:Performed By: #### LYTES, CBC, LIPID, PP, BUN, CREAT #### [place] [address] USAOvalocytesSlightAdventHealth Deltona ER Physician [facility] MississippiComment on above:Performed By: #### LYTES, CBC, LIPID, PP, BUN, CREAT #### [place] [address] USAPlatelet EstimateNormalNormalNormAscension Sacred Heart Bay Physician GroupComment on above:Performed By: #### LYTES, CBC, LIPID, PP, BUN, CREAT #### [place] [address] USAPlatelet MorphologyNormalNormalAdventHealth Deltona ER Physician [facility] Of MississippiComment on above:Result Comment: PERFORMED BY: [place] [address] PATHOLOGIST ROUGE SIFTER TIARA TUBBS M.D.Performed By: #### LYTES, CBC, LIPID, PP, BUN, CREAT #### [place] [address] [place] [address] USAPoikilocytosisSlightNormAscension Sacred Heart Bay Physician Group Comment on above:Performed By: #### LYTES, CBC, LIPID, PP, BUN, CREAT #### [facility] [address] [place] [address] USAReactive Lymphocytes5 %Normal0-12The [facility] Physician GroupComment on above:Performed By: #### LYTES, CBC, LIPID, PP, BUN, CREAT #### [facility] [address] [place] [phone] USAEosinophils Auto (Bld) [#/Vol]Ordered By: Conchita Ivy on 79-89-5324Mqszzfnvhja (Bld) [#/Vol]Automated eosinophil countGerman HospitalEosinophils (Bld) [#/Vol]N/[facility] HospitalEosinophils/100 WBC Auto (Bld)Ordered By: Conchita Ivy on 11-20-2024 Eosinophils/100 WBC (Bld)Automated eosinophil %[facility] Eosinophils/100 WBC (Bld)N/[facility] HospitalEosinophils/100 WBC Manual cnt (Bld)Ordered By: Conchita Ivy on 41-07-6841Yswhrmdktlw/100 WBC (Bld)Eosinophils/100 leukocytes in Blood by Manual count1-[facility] Methodist HospitalEosinophils/100 leukocytes in Blood by Manual countOrdered By: Conchita Ivy on 81-22-4541Ahvhdjojmzk/100 WBC (Bld)2 %Normal1-3FOhioHealth Pickerington Methodist HospitalComment on above:Performed By: #### LYTES, CBC, LIPID, PP, BUN, CREAT #### [facility] [address] [place] [address] USAErythrocyte distribution width Auto (RBC) [Ratio]Ordered By: Conchita Ivy on 50-52-9575Gljwknamioo distribution width (RBC) [Ratio] Erythrocyte distribution width [Ratio] by Automated dwukmZkbe28.0-14.8German HospitalErythrocyte distribution width [Ratio] by Automated count Ordered By: Conchita Ivy on 57-50-4532Qygpgcqgcyl distribution width (RBC) [Ratio]16.6 %High12.0-14.8German HospitalComment on above: Performed By: #### LYTES, CBC, LIPID, PP, BUN, CREAT #### [facility] [address] [place] [address] USAErythrocyte morphology finding [Identifier] in Blood Ordered By: Conchita Ivy on 76-78-8158YNA morphology finding Nom (Bld)RBC morphologyGerman HospitalRB morphology finding Nom (Bld)N/A German HospitalErythrocytes [#/volume] in Blood by Automated countOrdered By: Conchita Ivy on 01-98-0920SVX (Bld) [#/Vol]3.85 10*6/uLLow 3.90-5.60German HospitalComment on above:Performed By: #### LYTES, CBC, LIPID, PP, BUN, CREAT #### [facility] [address] [place] [id number] USAGiant platelets/100 leukocytes [Ratio] in Blood by Manual countOrdered By: Conchita Ivy on 48-05-1487Dpogc platelets/100 WBC Manual cnt (Bld) [Ratio]Giant platelets/100 leukocytes [Ratio] in Blood by Manual count German HospitalGiant platelets/100 WBC Manual cnt (Bld) [Ratio]1 /100{WBC}German HospitalGlobulin Calc (S) [Mass/Vol] Ordered By: Conchita Ivy on 43-31-1870Jpkaaqky (S) [Mass/Vol]Serum globulin measurement by calculation (mass/volume)German HospitalGlucose [Mass/volume] in Serum or PlasmaOrdered By: Conchita Ivy on 51-76-9971Uoykgdg [Mass/Vol]Glucose [Mass/volume] in Serum or GpyjnrQrls86-063PrulmbicjGerman HospitalComment on above:ADA recommended reference rangeRandom Glucose Reference Range is dependent on time and content of last meal. Glucose of more than 200 mg/dL in a nonstressed, ambulatory subject supports the diagnosisof Diabetes Mellitus.Glucose [Mass/Vol]106 mg/mAIqzo51-099IapglofnnGerman HospitalComment on above:ADA recommended reference rangeRandom Glucose Reference Range is dependent on time and content of last meal. Glucose of more than 200 mg/dL in a nonstressed, ambulatory subject supports the diagnosisof Diabetes Mellitus.Result Comment: Random Glucose Reference Range is dependent on time and content of last meal. Glucose of more than 200 mg/dL in a nonstressed, ambulatory subject supports the diagnosis of Diabetes Mellitus. ADA recommended reference rangePerformed By: #### LYTES, CBC, LIPID, PP, BUN, CREAT #### [facility] [address] [place] [address] USAHematocrit Auto (Bld) [Volume fraction]Ordered By: Conchita Ivy on 81-63-9075Ihhetgqfod (Bld) [Volume fraction]Hematocrit [Volume Fraction] of Blood by Automated lspgaLpk90.8-50.0German HospitalHematocrit [Volume Fraction] of Blood by Automated countOrdered By: Conchita Ivy on 00-06-3185Ruslotlqnt (Bld) [Volume fraction]34.8 %Low38.8-50.0 German HospitalComment on above:Performed By: #### LYTES, CBC, LIPID, PP, BUN, CREAT #### [place] [id number] USAHemoglobin [Mass/volume] in BloodOrdered By: Conchita Ivy on 09-93-0273Dybpgqhruf (Bld) [Mass/Vol]Hemoglobin [Mass/volume] in Blood Low13.0-17.0German HospitalHemoglobin (Bld) [Mass/Vol]11.6 g/dLLow13.0-17.0German HospitalComment on above:Performed By: #### LYTES, CBC, LIPID, PP, BUN, CREAT #### [facility] [address] [place] [address] USALeukocytes [#/volume] corrected for nucleated erythrocytes in Blood by Automated counOrdered By: Conchita Ivy on 53-21-2153HHT corrected for nucl RBC Auto (Bld) [#/Vol]Leukocytes [#/volume] corrected for nucleated erythrocytes in Blood by Automated counLow4.1-10.5FOhioHealth Pickerington Methodist HospitalWBC corrected for nucl RBC Auto (Bld) [#/Vol]3.3 10*3/uLLow4.1-10.5 German HospitalLeukocytes [#/volume] in Blood by Automated countOrdered By: Conchita Ivy on 88-84-2057PKT (Bld) [#/Vol]3.3 10*3/uLLow 4.1-10.5FOhioHealth Pickerington Methodist HospitalComment on above:Performed By: #### LYTES, CBC, LIPID, PP, BUN, CREAT #### [facility] [address] [place] [address] USALymphocytes Auto (Bld) [#/Vol]Ordered By: Conchita Ivy on 02-39-4760Jwtnsriogih (Bld) [#/Vol]Lymphocytes [#/volume] in Blood by Automated countGerman HospitalLymphocytes (Bld) [#/Vol]N/A German HospitalLymphocytes/100 WBC Auto (Bld)Ordered By: Conchita Ivy on 31-91-5359Svmhhadlpxk/100 WBC (Bld)Lymphocytes/100 leukocytes in Blood by Automated countGerman HospitalLymphocytes/100 WBC (Bld)N/AFOhioHealth Pickerington Methodist HospitalLymphocytes/100 WBC Manual cnt (Bld) Ordered By: Conchita Ivy on 12-03-5868Tisyegbphql/100 WBC (Bld)Lymphocytes/100 leukocytes in Blood by Manual mdsgwFdgt27-79Dh[address] Lymphocytes/100 leukocytes in Blood by Manual countOrdered By: Conchita Ivy on 71-72-0943Awefjjvdddf/100 WBC (Bld)47 %Djvk18-41Dzskmxtvt93 [address] StreetComment on above:Performed By: #### LYTES, CBC, LIPID, PP, BUN, CREAT #### [facility] [address] [place] [address] USAH Auto (RBC) [Entitic mass]Ordered By: Conchita Ivy on 23-64-1758THR (RBC) [Entitic mass]MCH [Entitic mass] by Automated count27.5-35.2 [facility] [Entitic mass] by Automated countOrdered By: Conchita Ivy on 18-43-1673XBF (RBC) [Entitic mass]30.1 ykVcebrp67.5-35.2 German HospitalComment on above:Performed By: #### LYTES, CBC, LIPID, PP, BUN, CREAT #### [facility] [facility] [address] [id number] [facility] Auto (RBC) [Mass/Vol]Ordered By: Conchita Ivy on 20-10-5546BHDY (RBC) [Mass/Vol]MCHC [Mass/volume] by Automated count32.5-35.6 [facility] (RBC) [Mass/Vol]33.4 g/dL32.5-35.6 [facility] Auto (RBC) [Entitic vol]Ordered By: Conchita Ivy on 48-92-9301MDS (RBC) [Entitic vol]MCV [Entitic volume] by Automated count83.5-101[facility] HospitalV [Entitic volume] by Automated countOrdered By: Conchita Ivy on 88-77-3039MKB (RBC) [Entitic vol]90.3 fL Sxfbos93.-[address] [place], [place] [address]Comment on above:Performed By: #### LYTES, CBC, LIPID, PP, BUN, CREAT #### [facility] [address] [id number] USAMagnesium [Mass/volume] in Serum or PlasmaOrdered By: Conchita Ivy on 38-53-7346Szyblzcej [Mass/Vol]Magnesium [Mass/volume] in Serum or Plasma1.9-2.7FOhioHealth Pickerington Methodist HospitalMagnesium [Mass/Vol]2.0 mg/dL Normal1.9-2.7FOhioHealth Pickerington Methodist HospitalComment on above:Result Comment: PERFORMED BY: [place] [address] PATHOLOGIST ROUGE SIFTER TIARA TUBBS M.D.Performed By: #### LYTES, CBC, LIPID, PP, BUN, CREAT #### [facility] [address] [place] [address] USAMicrocytes LM Ql (Bld)Ordered By: Conchita Ivy on 33-41-4730Mtyotjikbq Ql (Bld)Microcytes [Presence] in Blood by Light microscopy German HospitalMicrocytes Ql (Bld)SlightGerman HospitalMonocytes Auto (Bld) [#/Vol]Ordered By: Conchita Ivy on 08-32-6147Jnrgmxhcs (Bld) [#/Vol]Automated blood monocyte countGerman HospitalMonocytes (Bld) [#/Vol]N/[facility] HospitalMonocytes/100 WBC Auto (Bld)Ordered By: Conchita Ivy on 11-20-2024 Monocytes/100 WBC (Bld)Automated monocyte %[facility] Monocytes/100 WBC (Bld)N/[facility] HospitalMonocytes/100 WBC Manual cnt (Bld)Ordered By: Conchita Ivy on 05-86-5492Ahdntnzca/100 WBC (Bld) Monocytes/100 leukocytes in Blood by Manual count275 Foley StreetComment on above:RARE IMMATURE MONOCYTEMonocytes/100 leukocytes in Blood by Manual countOrdered By: Conchita Ivy on 48-18-4062Imddldsjz/100 WBC (Bld)9 %Normal275 Foley StreetComment on above:RARE IMMATURE MONOCYTEResult Comment: RARE IMMATURE MONOCYTEPerformed By: #### LYTES, CBC, LIPID, PP, BUN, CREAT #### [facility] [address] [id number] USANeutrophils Auto (Bld) [#/Vol]Ordered By: Conchita Ivy on 30-46-8614Wtiyrvcqlkd (Bld) [#/Vol]Neutrophils [#/volume] in Blood by Automated countGerman HospitalNeutrophils (Bld) [#/Vol]N/A German HospitalNeutrophils/100 WBC Auto (Bld)Ordered By: Cnochita Ivy on 84-17-5465Gxoedympdoz/100 WBC (Bld)Automated neutrophil % German HospitalNeutrophils/100 WBC (Bld)N/[facility] HospitalNo Panel InformationOrdered By: Conchita Ivy on 11-20-2024 Estimated GFR (CKD-EPI)> 60.0 mL/MinGerman HospitalPharmacy Creatinine Clearance (Chem66.55German HospitalNucleated RBC/100 WBC Manual cnt (Bld) [Ratio]Ordered By: Conchita Ivy on 11-20-2024 Nucleated RBC/100 WBC (Bld) [Ratio]Nucleated erythrocytes/100 leukocytes [Ratio] in Blood by Manual countHigh00German HospitalNucleated RBC/100 WBC (Bld) [Ratio]1 /100{WBC}High[address] Nucleated erythrocytes [Presence] in Blood by Automated countOrdered By: Conchita Ivy on 95-82-6783Zuekkmttf RBC Auto Ql (Bld)Nucleated erythrocytes [Presence] in Blood by Automated countGerman HospitalNucleated RBC Auto Ql (Bld)N/[facility] HospitalOvalocytes [Presence] in Blood by Light microscopyOrdered By: Conchita Ivy on 60-87-1818Wadtvmcrir LM Ql (Bld)Ovalocyte detectionGerman HospitalOvalocytes LM Ql (Bld)SlightGerman HospitalPlatelet adequacy [Presence] in Blood by Light microscopyOrdered By: Conchita Ivy on 15-83-5135Wojzxkwii LM Ql (Bld)Platelet adequacy [Presence] in Blood by Light microscopyNoMercy Health Defiance HospitalPlatelets LM Ql (Bld)NormalNormAshtabula General HospitalPlatelet mean volume Auto (Bld) [Entitic vol]Ordered By: Conchita Ivy on 57-53-5693Txlxccph mean volume (Bld) [Entitic vol]Platelet mean volume [Entitic volume] in Blood by Automated count6.6-10.1FOhioHealth Pickerington Methodist HospitalPlatelet mean volume [Entitic volume] in Blood by Automated countOrdered By: Conchita Ivy on 95-45-8359Rchgbxym mean volume (Bld) [Entitic vol]8.0 fL Normal6.6-10.1FOhioHealth Pickerington Methodist HospitalComment on above:Result Comment: PERFORMED BY: [place] [address] PATHOLOGIST ROUGE SIFTER TIARA TUBBS M.D.Performed By: #### LYTES, CBC, LIPID, PP, BUN, CREAT #### [facility] [address] [phone] USAPlatelet morphology finding [Identifier] in BloodOrdered By: Conchita Ivy on 45-51-5882Mgymtisp morphology finding Nom (Bld)Platelet morphology finding [Identifier] in BloodNormAshtabula General Hospital Platelet morphology finding Nom (Bld)NormalNoMercy Health Defiance HospitalPlatelets Auto (Bld) [#/Vol]Ordered By: Conchita Ivy on 11-20-2024 Platelets (Bld) [#/Vol]Platelets [#/volume] in Blood by Automated fqfva014-220 German HospitalPlatelets [#/volume] in Blood by Automated countOrdered By: Conchita Ivy on 81-86-8958Ivqkjivpf (Bld) [#/Vol]284 10*3/uL Wcurxf500-355JothxicoeGerman HospitalComment on above:Performed By: #### LYTES, CBC, LIPID, PP, BUN, CREAT #### [facility] [address] [place], [place] [phone] USAPoikilocytosis [Presence] in Blood by Light microscopy Ordered By: Conchita Ivy on 82-72-9830Xjxykbnjfioins LM Ql (Bld)Poikilocytosis [Presence] in Blood by Light microscopyGerman Hospital Poikilocytosis LM Ql (Bld)SlightGerman HospitalPotassium [Moles/volume] in Serum or PlasmaOrdered By: Conchita Ivy on 11-20-2024 Potassium [Moles/Vol]Potassium [Moles/volume] in Serum or Plasma3.5-5.1FOhioHealth Pickerington Methodist HospitalPotassium [Moles/Vol]3.8 mmol/LNormal3.5-5.1FOhioHealth Pickerington Methodist HospitalComment on above:Performed By: #### LYTES, CBC, LIPID, PP, BUN, CREAT #### [facility] [address] [place] [address] USAProtein [Mass/volume] in Serum or PlasmaOrdered By: Conchita Ivy on 89-45-8452Ahhnucf [Mass/Vol]Protein [Mass/volume] in Serum or Plasma6.4-8.9German HospitalProtein [Mass/Vol]6.9 g/dLNormal 6.4-8.9German HospitalComment on above:Performed By: #### LYTES, CBC, LIPID, PP, BUN, CREAT #### [facility] [address] [phone] USARBC Auto (Bld) [#/Vol]Ordered By: Conchita Ivy on 73-33-9552FLA (Bld) [#/Vol]Erythrocytes [#/volume] in Blood by Automated count Low3.90-5.60[facility] Health St. Charles Hospitalegmented neutrophils/100 WBC Manual cnt (Bld)Ordered By: Conchita Ivy on 84-92-2085Xfruoetvd neutrophils/100 WBC (Bld)Manual blood segmented neutrophils/100 leukocytesLow 50-70Mercy Health St. Charles Hospitalegmented neutrophils/100 leukocytes in Blood by Manual countOrdered By: Conchita Ivy on 15-77-1692Mldywsyqf neutrophils/100 WBC (Bld)37 %Xcp57-16RkbatldoyGerman HospitalComment on above:Performed By: #### LYTES, CBC, LIPID, PP, BUN, CREAT #### [facility] [address] [place] [address] USASerum globulin measurement by calculation (mass/volume) Ordered By: Conchita Ivy on 14-57-3311Lofvqxvg (S) [Mass/Vol]2.9 g/dLNormal German HospitalComment on above:Performed By: #### LYTES, CBC, LIPID, PP, BUN, CREAT #### [facility] [address] [place] [address] USASerum or plasma albumin/globulin mass ratioOrdered By: Conchita Ivy on 01-28-6983Yhbxhmx/Globulin [Mass ratio]Serum or plasma albumin/globulin mass ratioGerman HospitalAlbumin/Globulin [Mass ratio]1.4 {ratio}NormalGerman HospitalComment on above: Performed By: #### LYTES, CBC, LIPID, PP, BUN, CREAT #### [facility] [address] [place] [address] USASerum or plasma anion gap determinationOrdered By: Conchita Ivy on 79-58-8838Tdqnd gap [Moles/Vol]Serum or plasma anion gap determination 6.0-15.0German HospitalAnion gap [Moles/Vol]11.5 mmol/LNormal 6.0-15.0German HospitalComment on above:Performed By: #### LYTES, CBC, LIPID, PP, BUN, CREAT #### [address] [id number] USASodium [Moles/volume] in Serum or PlasmaOrdered By: Conchita Ivy on 01-65-8340Hhoxgx [Moles/Vol]Sodium [Moles/volume] in Serum or Krpfcb229-609ExhwhlzmdMercy Health St. Charles Hospitalodium [Moles/Vol]140 mmol/LNormal 136-145German HospitalComment on above:Performed By: #### LYTES, CBC, LIPID, PP, BUN, CREAT #### [address] [address] USAUrea nitrogen [Mass/volume] in Serum or PlasmaOrdered By: Conchita Ivy on 54-57-3535Kwzy nitrogen [Mass/Vol]Urea nitrogen [Mass/volume] in Serum or Plasma7-German HospitalUrea nitrogen [Mass/Vol] 19 mg/dLNormal-German HospitalComment on above:Performed By: #### LYTES, CBC, LIPID, PP, BUN, CREAT #### [facility] [address] [place] [address] USAVariant lymphocytes/100 WBC Manual cnt (Bld)Ordered By: Conchita Ivy on 77-32-3317Lwkkdhb lymphocytes/100 WBC (Bld)Variant lymphocytes/100 leukocytes in Blood by Manual count0-12German HospitalVariant lymphocytes/100 WBC (Bld)5 %0-12German HospitalWBC Auto (Bld) [#/Vol]Ordered By: Conchita Ivy on 57-01-3989QTG (Bld) [#/Vol]Leukocytes [#/volume] in Blood by Automated countLow4.1-10.5FOhioHealth Pickerington Methodist HospitalComprehensive Metabolic Panelon 85-52-1889Fhgosja [Mass/Vol]4.1 g/dLNormal3.5-5.7The [facility] Physician GroupComment on above: Performed By: #### LYTES, CBC, LIPID, PP, BUN, CREAT #### [facility] [address] [place] [address] USAAlbumin/Globulin [Mass ratio]1.5 {ratio}NormalThe Formerly [facility] Hospital Physician GroupComment on above:Performed By: #### LYTES, CBC, LIPID, PP, BUN, CREAT #### [facility] [address] [place] [address] USAALP [Catalytic activity/Vol]79 U/VWoprdl15-791Ynb [facility]ly [facility] Physician GroupComment on above:Performed By: #### LYTES, CBC, LIPID, PP, BUN, CREAT #### [facility] [address] [place] [address] USAALT [Catalytic activity/Vol]9 U/LNormal7-52The Formerly [facility] Physician GroupComment on above:Performed By: #### LYTES, CBC, LIPID, PP, BUN, CREAT #### [facility] [address] [place] [address] USAAnion gap [Moles/Vol]11.7 mmol/LNormal6.0-15.0The Formerly [facility] Physician GroupComment on above:Performed By: #### LYTES, CBC, LIPID, PP, BUN, CREAT #### [facility] [address] [place] [address] USAAST [Catalytic activity/Vol]13 U/QKdnfjx07-54Quf Formerly [facility] Physician GroupComment on above:Performed By: #### LYTES, CBC, LIPID, PP, BUN, CREAT #### [place] [address] USABilirubin [Mass/Vol]0.4 mg/dLNormal0.3-1.0The Formerly [facility] Physician GroupComment on above:Performed By: #### LYTES, CBC, LIPID, PP, BUN, CREAT #### [place] [address] USACalcium [Mass/Vol]9.0 mg/dLNormal8.6-10.3The Formerly [facility] Physician GroupComment on above:Performed By: #### LYTES, CBC, LIPID, PP, BUN, CREAT #### [place] [address] USAChloride [Moles/Vol]104 mmol/NDpatmo27-650Yaq Formerly [facility] Physician GroupComment on above:Performed By: #### LYTES, CBC, LIPID, PP, BUN, CREAT #### [place] [address] USACO2 [Moles/Vol]25.3 mmol/WQyhnij16.0-31.0The Formerly [facility] Physician GroupComment on above:Performed By: #### LYTES, CBC, LIPID, PP, BUN, CREAT #### [place] [address] USACreatinine [Mass/Vol]1.22 mg/dLNormal0.70-1.30The Formerly [facility] Physician GroupComment on above:Performed By: #### LYTES, CBC, LIPID, PP, BUN, CREAT #### [place] [address] USACreatinine Clr Calc Wddupmli36.28NormalThe Formerly [facility] Physician GroupComment on above:Performed By: #### LYTES, CBC, LIPID, PP, BUN, CREAT #### [place] [address] USAGFR/1.73 sq M.predicted MDRD (S/P/Bld) [Vol rate/Area] mL/min/{1.73_m2}NormalThe Formerly [facility] Physician GroupComment on above:Performed By: #### LYTES, CBC, LIPID, PP, BUN, CREAT #### [place] [address] USAGlobulin (S) [Mass/Vol]2.8 g/dLNormalThe Formerly [facility] Physician GroupComment on above:Performed By: #### LYTES, CBC, LIPID, PP, BUN, CREAT #### [place] [address] USAGlucose [Mass/Vol]110 mg/gFSnny45-746Aga [facility]ly [facility] Physician GroupComment on above:Result Comment: Random Glucose Reference Range is dependent on time and content of last meal. Glucose of more than 200 mg/dL in a nonstressed, ambulatory subject supports the diagnosis of Diabetes Mellitus. ADA recommended reference rangePerformed By: #### LYTES, CBC, LIPID, PP, BUN, CREAT #### [place] [address] USAPotassium [Moles/Vol]4.0 mmol/LNormal3.5-5.1The Formerly [facility] Physician GroupComment on above:Performed By: #### LYTES, CBC, LIPID, PP, BUN, CREAT #### [place] [address] USAProtein [Mass/Vol]6.9 g/dLNormal6.4-8.9The Formerly [facility] Physician GroupComment on above:Performed By: #### LYTES, CBC, LIPID, PP, BUN, CREAT #### [place] [address] USASodium [Moles/Vol]137 mmol/OElidkk867-207Kwa Formerly [facility] Physician GroupComment on above:Performed By: #### LYTES, CBC, LIPID, PP, BUN, CREAT #### [place] [address] USAUrea nitrogen [Mass/Vol]13 mg/dLNormal7-25The [facility]ly [facility] Physician GroupComment on above:Performed By: #### LYTES, CBC, LIPID, PP, BUN, CREAT #### [address] [address] USAECG 12 lead ECGon 02-18-5910QYT 12 lead ECGUNIVERSITY [facility]ALS [facility] [place] [address] Electrocardiograph Report Signed Patient: Morgan Latham MR#: [id number] : 1965 Acct:[id number] Age/Sex: 59 / M ADM Date: 11/18/24 Loc: 3T Room: [address] [place] [address] Type: ADM IN Attending Dr: Kermit Iraheta [...] No significant change was found Confirmed by EARNEST DYER MD ([facility]) on 11/19/2024 12:25:42 PM Referred By: Electronically Signed By: EARNEST DYER MD Transcribed By: MUS Signed By Earnest Dyer MD 0 11/19/[address] [place] [address] Physician [facility] MississippiECH echo transthoracicon 92-66-8232ZSG echo transthoracicUNIVERSITY [facility]ITALS [facility] Main [address] [place] [id number] Echocardiogram Signed Patient: Morgan Latham MR#: [id number] [id number] : 1965 Acct:[id number] Age/Sex: 59 / M ADM Date: 11/18/24 Loc: Room: [address] [place] [address] Type: ADM IN Attending Dr: Kermit Iraheta MD Ordering Provider: Conchita Ivy DO, RES Date of Service: 11/18/24 ECH/ECH echo transthoracic: SOB, CHF Copies to: MD Conchita Kelly, DO, RES Weight: 213 lb Performed By: [...] mmHg RAP systole: 3.0 mmHg Transcribed By: SCV Performed At: 11/19/24917 Signed By: Earnest Dyer MD 11/19/24 1052NormalThBoise [facility] Physician GroupMagnesiumon 32-29-1892Rawiyxtoj [Mass/Vol]1.9 mg/dLNormal1.9-2.7The Formerly [facility] Physician GroupComment on above:Result Comment: PERFORMED BY: [place] [address] PATHOLOGIST ROUGE SIFTER TIARA TUBBS M.D.Performed By: #### LYTES, CBC, LIPID, PP, BUN, CREAT #### [place] [address] USAPlatelets Large [Presence] in Blood by Light microscopy Ordered By: Conchita Ivy on 00-76-1143Xhriptdab Large LM Ql (Bld)Platelets Large [Presence] in Blood by Light microscopyGerman Hospital Platelets Large LM Ql (Bld)SlightGerman HospitalPolychromasia [Presence] in Blood by Light microscopyOrdered By: Conchita Ivy on 11-19-2024 Polychromasia LM Ql (Bld)Polychromasia [Presence] in Blood by Light microscopy German HospitalPolychromasia LM Ql (Bld)SlightTrihealth Mccullough-Hyde Memorial Hospital CenterScan and CBCon 04-65-4919Ezynlsaavtse Ql (Bld)Slight NormalThe Formerly [facility] Physician GroupComment on above:Performed By: #### LYTES, CBC, LIPID, PP, BUN, CREAT #### [facility] [address] [place] [address] USABasophils (Bld) [#/Vol]0.1 10*3/uLNormal0.0-0.2The Formerly [facility] Physician GroupComment on above:Performed By: #### LYTES, CBC, LIPID, PP, BUN, CREAT #### [facility] [address] [place] [address] USABasophils/100 WBC (Bld)1.3 %Normal.The Formerly [facility] Physician GroupComment on above:Performed By: #### LYTES, CBC, LIPID, PP, BUN, CREAT #### [facility] [address] [place] [address] USAEosinophils (Bld) [#/Vol]0.3 10*3/uLNormal0.0-0.45The Formerly [facility] Physician GroupComment on above:Performed By: #### LYTES, CBC, LIPID, PP, BUN, CREAT #### [facility] [address] [place], [place] [phone] USAEosinophils/100 WBC (Bld)5.9 %Normal.The Formerly [facility] Physician GroupComment on above:Performed By: #### LYTES, CBC, LIPID, PP, BUN, CREAT #### [place] [address] USAErythrocyte distribution width (RBC) [Ratio]16.4 %High 12.0-14.8The Formerly [facility] Physician GroupComment on above:Performed By: #### LYTES, CBC, LIPID, PP, BUN, CREAT #### [place] [address] USAHematocrit (Bld) [Volume fraction]34.7 %Low38.8-50.0The Formerly [facility] Physician GroupComment on above:Performed By: #### LYTES, CBC, LIPID, PP, BUN, CREAT #### [place] [address] USAHemoglobin (Bld) [Mass/Vol]11.5 g/dLLow13.0-17.0The Formerly [facility] Physician GroupComment on above:Performed By: #### LYTES, CBC, LIPID, PP, BUN, CREAT #### [place] [address] USALarge PlateletsSlightAdventHealth Deltona ER Physician Group Comment on above:Result Comment: PERFORMED BY: [place] [address] PATHOLOGIST ROUGE SIFTER TIARA TUBBS M.D.Performed By: #### LYTES, CBC, LIPID, PP, BUN, CREAT #### [place] [address] USALymphocytes (Bld) [#/Vol]1.0 10*3/uLNormal1.00-4.8The Formerly [facility] Physician GroupComment on above:Performed By: #### LYTES, CBC, LIPID, PP, BUN, CREAT #### [place] [address] USALymphocytes/100 WBC (Bld)22.5 %Normal.The Formerly [facility] Physician GroupComment on above:Performed By: #### LYTES, CBC, LIPID, PP, BUN, CREAT #### [place] [address] USAMCH (RBC) [Entitic mass]30.0 juYgicbp84.5-35.2The Formerly [facility] Physician GroupComment on above:Performed By: #### LYTES, CBC, LIPID, PP, BUN, CREAT #### [place] [address] USAMCV (RBC) [Entitic vol]90.3 rZTnlflc84.5-101The Formerly [facility] Physician GroupComment on above:Performed By: #### LYTES, CBC, LIPID, PP, BUN, CREAT #### [place] [address] USAMean Corpuscular HGB Conc33.2 g/iHRwfyia63.5-35.6The Formerly [facility] Physician GroupComment on above:Performed By: #### LYTES, CBC, LIPID, PP, BUN, CREAT #### [place] [address] USAMicrocytosisSlightNormalThe [facility]ly [facility]ician [facility] Comment on above:Performed By: #### LYTES, CBC, LIPID, PP, BUN, CREAT #### [place] [address] USAMonocytes (Bld) [#/Vol]0.8 10*3/uLNormal0.0-0.8The Formerly [facility] Physician GroupComment on above:Performed By: #### LYTES, CBC, LIPID, PP, BUN, CREAT #### [place] [address] USAMonocytes/100 WBC (Bld)18.2 %Normal.The Formerly [facility] Physician GroupComment on above:Performed By: #### LYTES, CBC, LIPID, PP, BUN, CREAT #### [place] [address] USANeutrophils (Bld) [#/Vol]2.3 10*3/uLNormal1.8-7.7The Formerly [facility] Physician GroupComment on above:Performed By: #### LYTES, CBC, LIPID, PP, BUN, CREAT #### [place] [address] USANeutrophils/100 WBC (Bld)52.1 %Normal.The Formerly [facility] Physician GroupComment on above:Performed By: #### LYTES, CBC, LIPID, PP, BUN, CREAT #### [facility] [address] [place] [address] USANRBC%0.1 /100{WBC}Normal0-0.5The [facility]ician [facility] Comment on above:Performed By: #### LYTES, CBC, LIPID, PP, BUN, CREAT #### [place] [address] USAOvalocytesSAtrium Health Steele Creek Physician [facility] Of MississippiComment on above:Performed By: #### LYTES, CBC, LIPID, PP, BUN, CREAT #### [place] [address] USAPlatelet EstimateNormalNormalNoIredell Memorial Hospital Physician [facility] Of MississippiComment on above:Performed By: #### LYTES, CBC, LIPID, PP, BUN, CREAT #### [place] [address] USAPlatelet mean volume (Bld) [Entitic vol]8.0 fLNormal 6.6-10.1The Formerly [facility] Physician GroupComment on above:Performed By: #### LYTES, CBC, LIPID, PP, BUN, CREAT #### [facility] [address] [place] [address] USAPlatelets (Bld) [#/Vol]268 10*3/wJUzebek239-348Fhs [facility]ly [facility] Physician GroupComment on above:Performed By: #### LYTES, CBC, LIPID, PP, BUN, CREAT #### [facility] [address] [place] [address] USAPoikilocytosisSAtrium Health Steele Creek Physician [facility] Comment on above:Performed By: #### LYTES, CBC, LIPID, PP, BUN, CREAT #### [place] [address] USAPolychromasiaSAtrium Health Steele Creek Physician [facility] Comment on above:Performed By: #### LYTES, CBC, LIPID, PP, BUN, CREAT #### [facility] [address] [place] [address] USARBC (Bld) [#/Vol]3.84 10*6/uLLow3.90-5.60The [facility] Physician GroupComment on above:Performed By: #### LYTES, CBC, LIPID, PP, BUN, CREAT #### [facility] [address] [place] [address] USAWBC (Bld) [#/Vol]4.5 10*3/uLNormal4.1-10.5The [facility] Physician GroupComment on above:Performed By: #### LYTES, CBC, LIPID, PP, BUN, CREAT #### [place] [address] USABNP ser/plasOrdered By: Rene Ernandez on 11-18-2024 Natriuretic peptide B (Bld) [Mass/Vol]2215.0 pg/mLChestnut Ridge Center5-100German HospitalComment on above:Result Comment: PERFORMED BY: [place] [address] PATHOLOGIST ROUGE SIFTER TIARA TUBBS M.D.Performed By: #### LYTES, CBC, LIPID, PP, BUN, CREAT #### [place] [address] USABlood Cultureon 85-39-9841Jrljodem identified Cx Nom (Bld) NO GROWTH 5 DAYS PERFORMED BY: [place] [address] PATHOLOGIST ROUGE SIFTER TIARA TUBBS M.D.NormalSanta Rosa Medical Center Physician GroupComment on above: Performed By: #### LYTES, CBC, LIPID, PP, BUN, CREAT #### [place] [address] USABacteria identified Cx Nom (Bld)NO GROWTH 5 DAYS PERFORMED BY: [place] [address] PATHOLOGIST ROUGE SIFTER TIARA TUBBS M.D.NormalSanta Rosa Medical Center Physician GroupComment on above: Performed By: #### LYTES, CBC, LIPID, PP, BUN, CREAT #### [place] [address] USACOVID Cepheid NegativeOrdered By: Rene Ernandez on 11-18-2024 SARS-CoV-2 (COVID-19) Ab IA QlCOVID CepheidNegativeGerman HospitalComment on above:This is a duplicate Cepheid Xpert Xpress CoV-2/Flu/RSV Plus RNA by RT-PCR result to be used for statistical tracking purpose only. SARS-CoV-2 (COVID-19) Ab IA QlNegativeNegativeGerman Hospital Comment on above:This is a duplicate Cepheid Xpert Xpress CoV-2/Flu/RSV Plus RNA by RT-PCR result to be used for statistical tracking purpose only.COVID-19 / Flu A/B / RSV PCRon 45-15-0450BKHN-CoV-2 (COVID-19) RNA AMARJIT+probe Ql (Unsp spec) COVID-19 Cepheid Result Negative for SARS-CoV-2 RNA by RT-PCR Flu A Cepheid Result Negative for Flu A RNA by RT-PCR Flu B Cepheid Result Negative for Flu B RNA by RT-PCR RSV Cepheid Result Negative for RSV RNA by RT-PCR COVID19 Blank Space Reference: Negative COVID19 Blank Space Cepheid Disclaimer The Cepheid Xpert Xpress CoV-2/Flu/RSV [...] or Cepheid Disclaimer revoked sooner. PERFORMED BY: [place] [address] PATHOLOGIST ROUGE SIFTER TIARA TUBBS M.D.NormalThe Formerly [facility] Physician GroupComment on above: Performed By: #### LYTES, CBC, LIPID, PP, BUN, CREAT #### [facility] [address] [place] [id number] USACepheid COVID PCR Negativeon [id number]-CoV-2 (COVID- 19) RNA AMARJIT+probe Ql (Unsp spec)NegativeNormalNegativeThe Formerly [facility] Physician GroupComment on above:Result Comment: This is a duplicate Cepheid Xpert Xpress CoV-2/Flu/RSV Plus RNA by RT-PCR result to be used for statistical tracking purpose only. PERFORMED BY: [place] [address] PATHOLOGIST ROUGE SIFTER TIARA TUBBS M.D.Performed By: #### LYTES, CBC, LIPID, PP, BUN, CREAT #### [facility] [address] [place], [place] [id number] USAComplete Blood Count Auto Diffon 43-76-4897Zyhvkbqor (Bld) [#/Vol]0.0 10*3/uLNormal0.0-0.2The Formerly [facility] Physician GroupComment on above: Result Comment: PERFORMED BY: [place] [address] PATHOLOGIST ROUGE SIFTER TIARA TUBBS M.D.Performed By: #### LYTES, CBC, LIPID, PP, BUN, CREAT #### [place] [address] USABasophils/100 WBC (Bld)0.8 %Normal.The [facility] Physician GroupComment on above:Performed By: #### LYTES, CBC, LIPID, PP, BUN, CREAT #### [place] [address] USAEosinophils (Bld) [#/Vol]0.2 10*3/uLNormal0.0-0.45The [facility]ly [facility] Physician GroupComment on above:Performed By: #### LYTES, CBC, LIPID, PP, BUN, CREAT #### [place] [address] USAEosinophils/100 WBC (Bld)3.2 %Normal.The [facility] Physician GroupComment on above:Performed By: #### LYTES, CBC, LIPID, PP, BUN, CREAT #### [place] [address] USAErythrocyte distribution width (RBC) [Ratio]16.1 %High 12.0-14.8The [facility] Physician GroupComment on above:Performed By: #### LYTES, CBC, LIPID, PP, BUN, CREAT #### [place] [address] USAHematocrit (Bld) [Volume fraction]31.9 %Low38.8-50.0The Formerly [facility] Physician GroupComment on above:Performed By: #### LYTES, CBC, LIPID, PP, BUN, CREAT #### [place] [address] USAHemoglobin (Bld) [Mass/Vol]10.7 g/dLLow13.0-17.0The [facility]ly [facility] Physician GroupComment on above:Performed By: #### LYTES, CBC, LIPID, PP, BUN, CREAT #### [place] [address] USALymphocytes (Bld) [#/Vol]0.6 10*3/uLLow1.00-4.8The Formerly [facility] Physician GroupComment on above:Performed By: #### LYTES, CBC, LIPID, PP, BUN, CREAT #### [place] [address] USALymphocytes/100 WBC (Bld)11.1 %Normal.The [facility] Physician GroupComment on above:Performed By: #### LYTES, CBC, LIPID, PP, BUN, CREAT #### [address] (RBC) [Entitic mass]30.5 cjUopyou49.5-35.2The Formerly [facility] Physician GroupComment on above:Performed By: #### LYTES, CBC, LIPID, PP, BUN, CREAT #### [address] (RBC) [Entitic vol]90.9 tOMygakz91.5-101The Formerly [facility] Physician GroupComment on above:Performed By: #### LYTES, CBC, LIPID, PP, BUN, CREAT #### [place] [address] USAMean Corpuscular HGB Conc33.5 g/eEAmdskm42.5-35.6The Formerly [facility] Physician GroupComment on above:Performed By: #### LYTES, CBC, LIPID, PP, BUN, CREAT #### [place] [address] USAMonocytes (Bld) [#/Vol]0.7 10*3/uLNormal0.0-0.8The Former[facility] Physician GroupComment on above:Performed By: #### LYTES, CBC, LIPID, PP, BUN, CREAT #### [place] [address] USAMonocytes/100 WBC (Bld)23.46 %High0.00-20.00The [facility] Physician GroupComment on above:Result Comment: For adults in ED, MDW > 20.0 may be associated with a higher risk of sepsis during the first 12 hrs of hospital admissionPerformed By: #### LYTES, CBC, LIPID, PP, BUN, CREAT #### [place] [address] USAMonocytes/100 WBC (Bld)14.4 %Normal.The [facility] Physician GroupComment on above:Performed By: #### LYTES, CBC, LIPID, PP, BUN, CREAT #### [place] [address] USANeutrophils (Bld) [#/Vol]3.6 10*3/uLNormal1.8-7.7The Formerly [facility] Physician GroupComment on above:Performed By: #### LYTES, CBC, LIPID, PP, BUN, CREAT #### [place] [address] USANeutrophils/100 WBC (Bld)70.5 %Normal.The [facility]ly [facility] Physician GroupComment on above:Performed By: #### LYTES, CBC, LIPID, PP, BUN, CREAT #### [place] [address] USANRBC%0.1 /100{WBC}Normal0-0.5The [facility] Comment on above:Performed By: #### LYTES, CBC, LIPID, PP, BUN, CREAT #### [place] [address] USAPlatelet mean volume (Bld) [Entitic vol]8.0 fLNormal 6.6-10.1The Former[facility] Physician GroupComment on above:Performed By: #### LYTES, CBC, LIPID, PP, BUN, CREAT #### [place] [address] USAPlatelets (Bld) [#/Vol]260 10*3/mBRacino329-924Awt Formerly [facility] Physician GroupComment on above:Performed By: #### LYTES, CBC, LIPID, PP, BUN, CREAT #### [place] [address] USARBC (Bld) [#/Vol]3.51 10*6/uLLow3.90-5.60The Formerly [facility] Physician GroupComment on above:Performed By: #### LYTES, CBC, LIPID, PP, BUN, CREAT #### [place] [address] USAWBC (Bld) [#/Vol]5.1 10*3/uLNormal4.1-10.5The [facility]ly [facility] Physician GroupComment on above:Performed By: #### LYTES, CBC, LIPID, PP, BUN, CREAT #### [place] [address] USAComprehensive Metabolic Panelon 13-37-4280Sapxpnb [Mass/Vol]3.9 g/dLNormal3.5-5.7The Formerly [facility] Physician GroupComment on above: Performed By: #### LYTES, CBC, LIPID, PP, BUN, CREAT #### [place] [address] USAAlbumin/Globulin [Mass ratio]1.3 {ratio}NormalThe Formerly [facility] Physician GroupComment on above:Performed By: #### LYTES, CBC, LIPID, PP, BUN, CREAT #### [place] [address] USAALP [Catalytic activity/Vol]75 U/NQcajqq21-165Dvu Formerly [facility] Physician GroupComment on above:Performed By: #### LYTES, CBC, LIPID, PP, BUN, CREAT #### [place] [address] USAALT [Catalytic activity/Vol]9 U/LNormal7-52The [facility]ly [facility] Physician GroupComment on above:Performed By: #### LYTES, CBC, LIPID, PP, BUN, CREAT #### [place] [address] USAAnion gap [Moles/Vol]11.0 mmol/LNormal6.0-15.0The Formerly [facility] Physician GroupComment on above:Performed By: #### LYTES, CBC, LIPID, PP, BUN, CREAT #### [place] [address] USAAST [Catalytic activity/Vol]14 U/FByvgef70-99Wwq Formerly [facility] Physician GroupComment on above:Performed By: #### LYTES, CBC, LIPID, PP, BUN, CREAT #### [facility] [address] [place] [address] USABilirubin [Mass/Vol]0.4 mg/dLNormal0.3-1.0The [facility] Physician GroupComment on above:Performed By: #### LYTES, CBC, LIPID, PP, BUN, CREAT #### [place] [address] USACalcium [Mass/Vol]9.0 mg/dLNormal8.6-10.3The Formerly [facility] Physician GroupComment on above:Performed By: #### LYTES, CBC, LIPID, PP, BUN, CREAT #### [facility] [address] [place] [address] USAChloride [Moles/Vol]103 mmol/FIbhpaz99-861Lrl Formerly [facility] Physician GroupComment on above:Performed By: #### LYTES, CBC, LIPID, PP, BUN, CREAT #### [place] [address] USACO2 [Moles/Vol]26.2 mmol/PTlwkcd47.0-31.0The [facility]ly [facility] Physician GroupComment on above:Performed By: #### LYTES, CBC, LIPID, PP, BUN, CREAT #### [place] [address] USACreatinine [Mass/Vol]1.30 mg/dLNormal0.70-1.30The [facility] Physician GroupComment on above:Performed By: #### LYTES, CBC, LIPID, PP, BUN, CREAT #### [place] [address] USACreatinine Clr Calc Qqwqaqzu01.06NormAscension Sacred Heart Bay Physician GroupComment on above:Result Comment: PERFORMED BY: [place] [address] PATHOLOGIST ROUGE SIFTER TIARA TUBBS M.D.Performed By: #### LYTES, CBC, LIPID, PP, BUN, CREAT #### [facility] [address] [place] [address] USAGFR/1.73 sq M.predicted MDRD (S/P/Bld) [Vol rate/Area] mL/min/{1.73_m2}NormalThe [facility]ly [facility] Physician GroupComment on above:Performed By: #### LYTES, CBC, LIPID, PP, BUN, CREAT #### [place] [address] USAGlobulin (S) [Mass/Vol]2.9 g/dLNormalThe [facility] Physician GroupComment on above:Performed By: #### LYTES, CBC, LIPID, PP, BUN, CREAT #### [place] [address] USAGlucose [Mass/Vol]103 mg/bQWqse00-362Viz Formerly [facility] Physician GroupComment on above:Result Comment: Random Glucose Reference Range is dependent on time and content of last meal. Glucose of more than 200 mg/dL in a nonstressed, ambulatory subject supports the diagnosis of Diabetes Mellitus. ADA recommended reference rangePerformed By: #### LYTES, CBC, LIPID, PP, BUN, CREAT #### [place] [address] USAPotassium [Moles/Vol]4.2 mmol/LNormal3.5-5.1The [facility] Physician GroupComment on above:Performed By: #### LYTES, CBC, LIPID, PP, BUN, CREAT #### [place] [address] USAProtein [Mass/Vol]6.8 g/dLNormal6.4-8.9The [facility] Physician GroupComment on above:Performed By: #### LYTES, CBC, LIPID, PP, BUN, CREAT #### [place] [address] USASodium [Moles/Vol]136 mmol/PPorgnu544-414Zkg Formerly [facility] Physician GroupComment on above:Performed By: #### LYTES, CBC, LIPID, PP, BUN, CREAT #### [address] [place] [address] USAUrea nitrogen [Mass/Vol]13 mg/dLNormal7-25The [facility]ly [facility] Physician GroupComment on above:Performed By: #### LYTES, CBC, LIPID, PP, BUN, CREAT #### [facility] [address] [place] [address] USACreatine kinase [Enzymatic activity/volume] in Serum or PlasmaOrdered By: Rene Ernandez on 33-93-9143SU [Catalytic activity/Vol]Creatine kinase [Enzymatic activity/volume] in Serum or Vbsthb28-499XojitdghhGerman HospitalCK [Catalytic activity/Vol]69 U/SJwsybr55-953BknquunhcGerman HospitalComment on above:Performed By: #### LYTES, CBC, LIPID, PP, BUN, CREAT #### [facility] [address] [place] [address] USAECG 12 lead ECGon 31-20-4511TOW 12 lead ECGUNIVERSITY [facility] [address] [place] [address] [place] [id number] Electrocardiograph Report Signed Patient: Morgan Latham MR#: [id number] : 1965 Acct:[id number] Age/Sex: 59 / M ADM Date: 11/18/24 Loc: Room: [address] [place] [address] Type: ADM IN Attending Dr: Kermit Iraheta [...] MUS Signed By Rene Ernandez MD 11/20/24 0150[facility] Physician GroupINR in Platelet poor plasma by Coagulation assayOrdered By: Rene Ernandez on 81-10-0866HCF Coag (PPP) [Relative time]INR in Platelet poor plasma by Coagulation assayGerman HospitalComment on above:INR Therapeutic Range A) Pre- and Peroperative OAT started two weeks before surgery. NOT HIP SURGERY: 1.5 - 2.5 HIP SURGERY: 2 - 3B) Primary and secondary prevention of venous THROMBOSIS: 2 - 3C) Active venous thrombosis, pulmonary embolismand prevention of recurrent venous thrombosis: 2 - 3D) Prevention of arterial thromboembolismincluding patients with mechanical heart valves: 3 - 4.5INR Coag (PPP) [Relative time]1.1 {INR}NormalGerman HospitalComment on above:INR Therapeutic Range A) Pre- and Peroperative OAT started two weeks before surgery. NOT HIP SURGERY: 1.5 - 2.5 HIP SURGERY: 2 - 3B) Primary and secondary prevention of venous THROMBOSIS: 2 - 3C) Active venous thrombosis, pulmonary embolismand prevention of recurrent venous thrombosis: 2 - 3D) Prevention of arterial thromboembolismincluding patients with mechanical heart valves: 3 - 4.5Result Comment: INR Therapeutic Range A) Pre- and [...] patients with mechanical heart valves: 3 - 4.5Performed By: #### LYTES, CBC, LIPID, PP, BUN, CREAT #### [facility] [address] [place] [address] USALaboratory - Microbiology and Antimicrobial susceptibility Ordered By: Rene Ernandez on 74-25-1157Mtmdacsy identified Cx Nom (Bld)NO GROWTH 5 DAYSGerman HospitalBacteria identified Cx Nom (Bld)NO GROWTH 5 DAYSGerman HospitalMonocyte distribution width [Entitic volume] in Blood by AutomatedOrdered By: Rene Ernandez on 04-28-0070Aejcwkfy distribution width Auto (Bld) [Entitic vol]Monocyte distribution width [Entitic volume] in Blood by AutomatedHigh0.00-20.00[facility] Comment on above:For adults in ED, MDW > 20.0 may be associated with a higher risk of sepsis during the first 12 hrs of hospital admissionMonocyte distribution width Auto (Bld) [Entitic vol]23.46 %High0.00-20.00German HospitalComment on above:For adults in ED, MDW > 20.0 may be associated with a higher risk of sepsis during the first 12 hrs of hospital admissionNatriuretic peptide B [Mass/Vol]Ordered By: Rene Ernandez on 11-18-2024 Natriuretic peptide B (Bld) [Mass/Vol]BNP ser/plasHigh5-100German HospitalPartial Thromboplastin Timeon 67-97-4455iYBE Coag (Bld) [Time]31.5 gPzphkv00.1-36.5The [facility] Physician GroupComment on above:Result Comment: A hematocrit value greater than 55% may lead to inaccurate results in coagulation testing. Patients having hematocrit values >55% require a special collection tube for coagulation studies. Please contact the laboratory at [phone] for redraw instructions. PERFORMED BY: [place] [address] PATHOLOGIST ROUGE SIFTER TIARA TUBBS M.D.Performed By: #### LYTES, CBC, LIPID, PP, BUN, CREAT #### [place] [address] USAProthrombin time (PT)Ordered By: Rene Ernandez on 11-18-2024 PT Coag (PPP) [Time]Prothrombin time (PT)9.0-12.9German HospitalComment on above:A hematocrit value greater than 55% may lead to inaccurate results in coagulation testing. Patientshaving hematocrit values >55% require a special collection tube for coagulation studies. Please contact the laboratory at [phone] for redraw instructions.PT Coag (PPP) [Time]12.1 s Normal9.0-12.9German HospitalComment on above:A hematocrit value greater than 55% may lead to inaccurate results in coagulation testing. Patientshaving hematocrit values >55% require a special collection tube for coagulation studies. Please contact the laboratory at [phone] for redraw instructions.Result Comment: A hematocrit value greater than 55% may lead to inaccurate results in coagulation testing. Patients having hematocrit values >55% require a special collection tube for coagulation studies. Please contact the laboratory at [phone] for redraw instructions.Performed By: #### LYTES, CBC, LIPID, PP, BUN, CREAT #### [address] [address] USARespiratory specimen influenza A virus, influenza B virus, respiratory syncytical virOrdered By: Rene Ernandez on 74-67-1514IVIF-CoV-2 (COVID-19) RNA AMARJIT+probe Ql (Unsp spec)Respiratory specimen influenza A virus, influenza B virus, respiratory syncytical virGerman Hospital SARS-CoV-2 (COVID-19) RNA AMARJIT+probe Ql (Unsp spec)German HospitalTroponin I High Sensitivityon 29-94-8263Edzzxzrc I High Trbuhlpsnkd47 Normal0-20The [facility]ly [facility] Physician GroupComment on above:Result Comment: The Troponin units of report have been changed to meet the Chest Pain Accreditation requirement, element EC5.M1l2. Troponin units are changed from pg/ml to ng/L. Also, the decimal is removed and results are in whole numbers. PERFORMED BY: [place] [address] PATHOLOGIST ROUGE SIFTER TIARA TUBBS M.D.Performed By: #### LYTES, CBC, LIPID, PP, BUN, CREAT #### [address] [address] USATroponin I High Pikjsqyqqza59Gsgbff0-85Cvx Formerly [facility] Physician GroupComment on above:Result Comment: The Troponin units of report have been changed to meet the Chest Pain Accreditation requirement, element EC5.M1l2. Troponin units are changed from pg/ml to ng/L. Also, the decimal is removed and results are in whole numbers. PERFORMED BY: [place] [address] PATHOLOGIST ROUGE SIFTER TIARA TUBBS M.D.Performed By: #### LYTES, CBC, LIPID, PP, BUN, CREAT #### [facility] [address] [place] [id number] USATroponin I.cardiac [Mass/volume] in Serum or Plasma by Detection limit <= 0.01 ng/Ordered By: Sabi Choudhury on 04-08-5336Vjfieztj I.cardiac DL <= 0.01 ng/mL [Mass/Vol]Troponin I.cardiac [Mass/volume] in Serum or Plasma by Detection limit <= 0.01 ng/0-[address] [place] [address] Comment on above:The Troponin units of report have been changed to meet the Chest Pain Accreditation requirement, element EC5.M1l2. Troponin units are changed from pg/ml to ng/L. Also, the decimal is removed and results are in whole numbers.Troponin I.cardiac [Mass/volume] in Serum or Plasma by Detection limit <= 0.01 ng/mLOrdered By: Sabi Choudhury on 87-01-3095Kvpixfto I.cardiac DL <= 0.01 ng/mL [Mass/Vol]15 ng/L0-[address] [place], [place] [address]Comment on above:The Troponin units of report have been changed to meet the Chest Pain Accreditation requirement, element EC5.M1l2. Troponin units are changed from pg/ml to ng/L. Also, the decimal is removed and results are in whole numbers.X- ray reportOrdered By: Robinson Browning on 80-88-9244Poovp [facility] [address] [place] [address] XRay Report Signed Patient: Morgan Latham MR#: [id number] : 1965 Acct:[id number] Age/Sex: 59 / M ADM Date: 5 [...] vascular congestion no effusion or pneumothorax. Left shoulderarthroplasty. XR/XR chest 1V portable IMPRESSION: CARDIOMEGALY WITH SMALL CENTRAL VASCULAR CONGESTION MILDLY PROMINENT INTERSTITIAL MARKINGS IN BOTH LUNG BASES QUESTION ATELECTASIS OR INTERSTITIAL EDEMA. Impression dictated by: Robinson Browning M.D.11/18/2024 6:03 PM Dictation Location: RADIO-PC-29 Transcribed By: MORALES 11/18/241802 Dictated By: Robinson Browning MD 11/18/241801 Signed By: 11/18/241802 [facility] Work Phone: xr chest 1V portableon 58-15-8672DK chest 1V portable [facility] [place] [place] [address] XRay Report Signed Patient: Morgan Latham MR#: [id number] 034 : 1965 Acct:[id number] Age/Sex: 59 / M ADM Date: 11/18/24 [...] By: Robinson Browning MD 11/18/241801 Signed By: 11/18/24 1803[facility] Physician GroupaPTT in Platelet poor plasma by Coagulation assayOrdered By: Rene Ernandez on 15-12-0678wQNZ Coag (PPP) [Time] Activated partial thromboplastin time (aPTT) in platelet poor plasma by coagulation a25.1-36.5FOhioHealth Pickerington Methodist HospitalComment on above:A hematocrit value greater than 55% may lead to inaccurate results in coagulation testing. Patientshaving hematocrit values >55% require a special collection tube for coagulation studies. Please contact the laboratory at [phone] for redraw instructions.aPTT Coag (PPP) [Time]31.5 s25.1-36.5FOhioHealth Pickerington Methodist HospitalComment on above:A hematocrit value greater than 55% may lead to inaccurate results in coagulation testing. Patientshaving hematocrit values >55% require a special collection tube for coagulation studies. Please contact the laboratory at [phone] for redraw instructions.X-ray reportOrdered By: Juan Stone on 01-09-7965Vjdjf reportUNIVERSITY HOSPITALS [facility] [address] [place] [address] XRay Report Signed Patient: Morgan Latham MR#: [id number] : 1965 Acct:[id number] Age/Sex: 58 / M ADM Date: 5 Loc: [facility] [place] [place] Room: Type: [facility] Attending Dr: Elsie Harper MD Copies to: Elsie Harper MD~ Ordering Provider: Elsie Harper MD Date of Service: 08/27/24 XR/XR shoulder LT min 2V*: Z96.612 - Presence of leftartificial shoulderjoint LEFT SHOULDER - - 3 views CLINICAL HISTORY: Follow-up shoulder arthroplasty COMPARISON: Left shoulder 07/21/2024 FINDINGS: No hardware complication or acute bony process. XR/XR shoulder LT min 2V* IMPRESSION: NO HARDWARE COMPLICATION. Impression dictated by: Juan Stone Jr., D.O.08/27/2024 9:45 AM Dictation Location: [place] [address] Transcribed By: [facility] 08/27/24 0945 Dictated By: Juan Stone Jr, DO 08/27/2445 Signed By: 08/27/24 0945 German HospitalXR shoulder LT min 2V*on 12-94-9674BD shoulder LT min 2V*[facility] [address] [place] [address] XRay Report Signed Patient: Morgan Latham MR#: [id number] 034 : 1965 Acct:[id number] Age/Sex: 58 / M ADM Date: 08/27/24 Loc: [facility] [place] [place] Room: Type: [facility] CL Attending Dr: Elsie Harper MD Copies to: Elsie Harper MD Ordering Provider: Elsie Harper MD Date of Service: 08/27/24 XR/XR shoulder LT min 2V*: Z96.612 - Presence of left artificial shoulder joint LEFT SHOULDER - - 3 views CLINICAL HISTORY: Follow-up shoulder arthroplasty COMPARISON: Left shoulder 07/21/2024 FINDINGS: No hardware complication or acute bony process. XR/XR shoulder LT min 2V* IMPRESSION: NO HARDWARE COMPLICATION. Impression dictated by: Juan Stone Jr., D.O.08/27/2024 9:45 AM Dictation Location: [place] [address] Transcribed By: [facility] 08/27/2445 Dictated By: Juan Stone Jr, DO 08/27/2445 Signed By: 08/27/24 0945[facility] Physician GroupBacteria identified Cx Nom (Unsp spec)Ordered By: Agnes Houser on 54-30-5658Jocxeljescixld and review of laboratory resultsAbnormalUniGrant HospitalMicroscopic observation Gram stain Nom (Unsp spec)(2+) Few Polymorphonuclear leukocytes [facility], IncMiccohen children's medical center observation Gram stain Nom (Unsp spec)No organisms seenPike Community HospitalTisst. rita's hospital/Wound Culture/SmearOrdered By: Agnes Houser on 91-10-0127Fchvitex identified Cx Nom (Unsp spec)(1+) Rare Methicillin Susceptible Staphylococcus aureus (MSSA)AbnormalSelect Medical Specialty Hospital - [facility], IncBacteria identifiedon 37-69-4727Vomqponl identified Cx Nom (Unsp spec)Test: Tissue/Wound Culture/Smear Specimen Source: Sinus Specimen Type: Tissue/Biopsy Specimen Date: 08/12/2024 1539 Result Date: 08/16/2024925 Result Status: Final result Abnormal: Yes Resulting Lab: [facility] [id number] [place], [place] [id number] CULTURE (1+) Rare Methicillin Susceptible Staphylococcus aureus (MSSA) (Abnormal) STAIN (2+) Few Polymorphonuclear leukocytes No organisms seen SUSCEPTIBILITY Methicillin Susceptible Staphylococcus aureus (MSSA) METHOD MICROSCAN CLINDAMYCIN <=0.250 ug/ml Susceptible ERYTHROMYCIN >4 ug/ml Resistant OXACILLIN 0.5 ug/ml Susceptible TETRACYCLINE <=2.000 ug/ml Susceptible TRIMETHOPRIM/SULFAMETHOXAZOLE <=0.5/9.5 ug/ml Susceptible VANCOMYCIN 1.000 ug/ml SusceptibleAbDoctors Hospital of Laredo AmbulatoryComment on above:Performed By: #### [id number] #### SEKOU Santiago ([id number]) [facility] ([facility]) [address] [place] [address] 13797LI shoulder LT min 2V*on 93-15-7057MX shoulder LT min 2V* [facility] [address] [place] [address] XRay Report Signed Patient: Morgan Latham MR#: [id number] [id number] : 1965 Acct:[id number] Age/Sex: 58 / M ADM Date: 07/21/24 Loc: [facility] [place] [place] Room: Type: [facility] Attending Dr: Elsie Harper MD Copies to: Elsie Harper MD Ordering Provider: Elsie Harper MD Date of Service: 07/21/24 XR/XR shoulder LT min 2V*: Z96.612 - Presence of left artificial shoulder joint LEFT SHOULDER - - 3 views CLINICAL HISTORY: Follow-up shoulder arthroplasty COMPARISON: Left shoulder 07/15/2024 FINDINGS: No hardware complication or acute bony process. XR/XR shoulder LT min 2V* IMPRESSION: NO HARDWARE COMPLICATION. Impression dictated by: uJan Stone Jr., D.O.07/21/2024 3:51 PM Dictation Location: [facility] Transcribed By: [facility] 07/21/24 1551 Dictated By: Juan Stone Jr DO 07/21/24 1537 Signed By: 07/21/24 1551[facility] Physician GroupAmphetamine Screen Ql (U)Ordered By: Brandon Vargas on 27-41-1417Ieutqnyqkwnr Ql (U)Amphetamines screen NegativeGerman HospitalBarbiturates [Presence] in Urine by Screen methodOrdered By: Brandon Vargas on 21-40-3582Mkbrkptcuwml Screen Ql (U)Barbiturates [Presence] in Urine by Screen methodNegativeGerman HospitalBenzodiazepines Screen Ql (U)Ordered By: Brandon Vargas on 03-25-2116Utoqhcybngtwmau Ql (U)Benzodiazepines [Presence] in Urine by Screen methodNegativeGerman HospitalBenzoylecgonine [Presence] in Urine by Screen methodOrdered By: Brandon Vargas on 07-15-2024 Benzoylecgonine Screen Ql (U)Benzoylecgonine [Presence] in Urine by Screen methodNegativeGerman HospitalCannabinoids [Presence] in Urine by Screen methodOrdered By: Brandon Vargas on 94-50-7844Jziivfczbldb Screen Ql (U)Cannabinoids [Presence] in Urine by Screen methodNegDiley Ridge Medical CenterComment on above:These are unconfirmed results and should not be used for legal purposes. Drug Cut-Off Concentration: AMPH 1000 ng/mL KATIE 200 ng/mL KETAN 200 ng/mL COCM 300 ng/mL OP 300 ng/mL PCP 25 ng/mL THC 20 ng/mLDrug Screen,Urineon 25-93-9838Umnggepxowf Screen,UrineNegativeNormal NegativeThe Formerly [facility] Hospital Physician GroupComment on above:Performed By: #### URDS #### [place] [address] USABarbiturate Screen,UrineNegativeNormalNegativeThe Formerly [facility] Physician GroupComment on above:Performed By: #### URDS #### [place] [address] USABenzodiazepines Screen,UrineNegativeNormalNegativeThe Formerly [facility] Physician GroupComment on above:Performed By: #### URDS #### [place] [address] USACannabinoid Screen,UrineNegativeNormalNegativeThe Formerly [facility] Hospital Physician GroupComment on above:Result Comment: These are unconfirmed results and should not be used for legal purposes. Drug Cut-Off Concentration: AMPH 1000 ng/mL KAITE 200 ng/mL KETAN 200 ng/mL COCM 300 ng/mL OP 300 ng/mL PCP 25 ng/mL THC 20 ng/mL PERFORMED BY: [place] [address] PATHOLOGIST ROUGE SIFTER TIARA TUBBS M.D.Performed By: #### URDS #### [place] [address] USACocaine Screen,UrineNegativeNormalNegativeThe Formerly [facility] Physician GroupComment on above:Performed By: #### URDS #### [place] [address] USAOpiate Screen,UrinePositiveHighNegativeThe Formerly [facility] Physician GroupComment on above:Performed By: #### URDS #### [place] [address] USAPhencyclidine Screen,UrineNegativeNormalNegativeThe Formerly [facility] Physician GroupComment on above:Performed By: #### URDS #### [place] [address] USALon 07-15-2024 Specimen: [id number] Received: 07/15/24 Status: CELIO Clarence Num: [id number] Spec Type: Surgical Subm Dr: Elsie Harper MD Tissues: A Joint/Knee (LEFT SHOULDER BONE AND TISSU) Procedures: HE, Gross/Micro L4, Decalcification Age/ Patient Sex Location Account Attending Physician Morgan Latham/[place] [id number] Elsie Harper MD SPEC NUM: [id number] RECD: 07/15/24 STATUS: CELIO CLARENCE NUM: [id number] ANGEL: 07/15/24- SUBM DR: Elsie Harper MD ENTERED: 07/15/[address] [facility] [address]: SPEC TYPE: Surgical DEPT: S ENTERED BY: [id number] RECV BY: [id number] ORDERED: NEY, Gross/Micro L4, Decalcification ORDERED: HE, Gross/Micro L4, Decalcification Pathological Diagnosis Left shoulder bone [...] bone is soler, firm and uniform. A dermatology sales representative section is submitted in a single cassette after decalcification. (1, , [id number])JG Specimen: [id number] Received: 07/15/24 Status: ABHILASHYaw Lima Num: [id number] Spec Type: Surgical Subm Dr: Elsie Harper MD Tissues: A Joint/Knee (LEFT SHOULDER BONE AND TISSU) Procedures: NEY, Gross/Micro L4, Decalcification Patient: Morgan Latham [id number] (Continued) Specimen: [id number] Received: 07/15/24 (Continued) Signed (signature on file) Sanjuana Spann MD 07/17/24 1746 Specimen: [id number] Received: 07/15/24 Status: CELIO Lima Num: [id number] Spec Type: Surgical Subm Dr: Elsie Harper MD Tissues: A Joint/Knee (LEFT SHOULDER BONE AND TISSU) Procedures: NEY, Gross/Grecia L4, Decalcification Patient: Morgan Latham [id number] (Continued) Specimen: [id number] Received: 07/15/24 (Continued) Microscopic Description Microscopic examinations are performed supporting the above interpretation CPT Codes 25873 [id number] Specimen: [id number] Received: 07/15/24 Status: CELIO Lima Num: [id number] Spec Type: Surgical Subm Dr: Elsie Harper MD Tissues: A Joint/Knee (LEFT SHOULDER BONE AND TISSU) Procedures: NEY, Gross/Micro L4, Decalcification Patient: Morgan Latham [id number] (Continued) Signed (signature on file) Sanjuana Spann MD 07/17/24 1746[facility] Physician GroupOpiates [Presence] in Urine by Screen methodOrdered By: Brandon Vargas on 19-65-9243Uodvkja Screen Ql (U)Opiates [Presence] in Urine by Screen methodHighNegativeGerman HospitalPhencyclidine Screen Ql (U)Ordered By: Brandon Vargas on 07-15-2024 Phencyclidine Ql (U)Phencyclidine [Presence] in Urine by Screen methodNegative German HospitalXR shoulder LT min 2V*on 41-42-5391LW shoulder LT min 2V*[facility] [place] [address] XRay Report Signed Patient: Morgan Latham MR#: [id number] 034 : 1965 Acct:[id number] Age/Sex: 58 / M ADM Date: 07/15/24 Loc: [place] Room: Type: [facility] Attending Dr: Elsie Harper MD Copies to: Elsie Harper MD Ordering Provider: Elsie Harper MD Date of Service: 07/15/24 XR/XR shoulder [...] Shyam Hahn M.D.07/15/2024 3:13 PM Dictation Location: [place] [address] Transcribed By: [facility] 07/15/24 1513 Dictated By: Shyam Hahn DO 07/15/24 1510 Signed By: 07/15/24 1513[facility] Alanine aminotransferase [Enzymatic activity/volume] in Serum or PlasmaOrdered By: Elsie Harper on 46-39-3151UZU [Catalytic activity/Vol]Alanine aminotransferase [Enzymatic activity/volume] in Serum or Plasma7-52German HospitalAlbumin [Mass/volume] in Serum or Plasma by Bromocresol green (BCG) dye binding metho Ordered By: Elsie Harper on 66-65-9951Jsyvssu BCG dye [Mass/Vol]Albumin [Mass/volume] in Serum or Plasma by Bromocresol green (BCG) dye binding metho 3.5-5.7FOhioHealth Pickerington Methodist HospitalAlkaline phosphatase [Enzymatic activity/volume] in Serum or PlasmaOrdered By: Elsie Harper on 23-14-5659PAJ [Catalytic activity/Vol]Alkaline phosphatase [Enzymatic activity/volume] in Serum or Ccxjpp37-825BxqrfmfsxGerman HospitalAppearance of UrineOrdered By: Elsie Harper on 67-79-7362Kdjoxbghoj (U)Urine appearanceCleUniversity Hospitals St. John Medical CenterAspartate aminotransferase [Enzymatic activity/volume] in Serum or PlasmaOrdered By: Elsie Harper on 09-35-4278CSC [Catalytic activity/Vol]Aspartate aminotransferase [Enzymatic activity/volume] in Serum or Fpihdm27-93SutktdakvGerman HospitalBasophils Auto (Bld) [#/Vol]Ordered By: Elsie Harper 19-19-9628Cxzlxybze (Bld) [#/Vol]Automated basophil count 0.0-0.2FOhioHealth Pickerington Methodist HospitalBasophils/100 WBC Auto (Bld)Ordered By: Elsie Harper 66-85-3820Scrmrehfd/100 WBC (Bld)Automated basophil %.German HospitalBilirubin Test strip Ql (U)Ordered By: Elsie Harper 61-65-1479Ajpcfbatg Ql (U)Bilirubin.total [Presence] in Urine by Test strip NegativeGerman HospitalBilirubin.total [Mass/volume] in Serum or PlasmaOrdered By: Elsie Harper 18-50-3754Efmnfsmsj [Mass/Vol] Bilirubin.total [Mass/volume] in Serum or Plasma0.3-1.0German HospitalBlood estimated average glucose determination by estimation from glycated hemoglobinOrdered By: Elsie Harper on 00-80-2558Bgveyrr glucose Estimated from glycated hemoglobin (Bld) [Mass/Vol]Glucose mean value [Mass/volume] in Blood Estimated from glycated hemoglobinGerman HospitalCMP with reflex to A1Con 83-20-0396Jachlze [Mass/Vol]4.1 g/dL Normal3.5-5.7The Formerly [facility] Physician GroupComment on above:Performed By: #### LYTES, CBC, LIPID, PP, BUN, CREAT #### [place] [address] USAAlbumin/Globulin [Mass ratio]1.7 {ratio}NormalThe Formerly [facility] Hospital Physician GroupComment on above:Performed By: #### LYTES, CBC, LIPID, PP, BUN, CREAT #### [place] [address] USAALP [Catalytic activity/Vol]79 U/QXaubmz69-630Odp Formerly [facility] Hospital Physician GroupComment on above:Result Comment: PERFORMED BY: [place] [address] PATHOLOGIST ROUGE SIFTER TIARA TUBBS M.D.Performed By: #### LYTES, CBC, LIPID, PP, BUN, CREAT #### [place] [address] USAALT [Catalytic activity/Vol]16 U/LNormal7-52The Formerly [facility] Hospital Physician GroupComment on above:Performed By: #### LYTES, CBC, LIPID, PP, BUN, CREAT #### [place] [address] USAAnion gap [Moles/Vol]11.5 mmol/LNormal6.0-15.0The Formerly [facility] Physician GroupComment on above:Performed By: #### LYTES, CBC, LIPID, PP, BUN, CREAT #### [place] [address] USAAST [Catalytic activity/Vol]20 U/EUcexhp70-34Bsg Formerly [facility] Physician [facility] Healthcare Of MississippiComment on above:Performed By: #### LYTES, CBC, LIPID, PP, BUN, CREAT #### [place] [address] USABilirubin [Mass/Vol]0.7 mg/dLNormal0.3-1.0The Formerly [facility] Physician GroupComment on above:Performed By: #### LYTES, CBC, LIPID, PP, BUN, CREAT #### [place] [address] USACalcium [Mass/Vol]9.1 mg/dLNormal8.6-10.3The Formerly [facility] Physician GroupComment on above:Performed By: #### LYTES, CBC, LIPID, PP, BUN, CREAT #### [place] [address] USAChloride [Moles/Vol]105 mmol/JScbflt03-823Gat Formerly [facility] Physician GroupComment on above:Performed By: #### LYTES, CBC, LIPID, PP, BUN, CREAT #### [place] [address] USACO2 [Moles/Vol]26.9 mmol/VLhcuqp42.0-31.0The Formerly [facility] Physician GroupComment on above:Performed By: #### LYTES, CBC, LIPID, PP, BUN, CREAT #### [place] [address] USACreatinine [Mass/Vol]1.16 mg/dLNormal0.70-1.30The Formerly [facility] Physician GroupComment on above:Performed By: #### LYTES, CBC, LIPID, PP, BUN, CREAT #### [place] [address] USAGFR/1.73 sq M.predicted MDRD (S/P/Bld) [Vol rate/Area] mL/min/{1.73_m2}NormalThe Formerly [facility] Physician GroupComment on above:Performed By: #### LYTES, CBC, LIPID, PP, BUN, CREAT #### [place] [address] USAGlobulin (S) [Mass/Vol]2.4 g/dLNormalThe Formerly [facility] Physician GroupComment on above:Performed By: #### LYTES, CBC, LIPID, PP, BUN, CREAT #### [place] [address] USAGlucose [Mass/Vol]114 mg/dLNormalThe Formerly [facility] Physician GroupComment on above:Result Comment: ADA recommended reference rangePerformed By: #### LYTES, CBC, LIPID, PP, BUN, CREAT #### [place] [address] USAResult Comment: PERFORMED BY: [place] [address] PATHOLOGIST ROUGE SIFTER TIARA TUBBS M.D.Potassium [Moles/Vol]4.4 mmol/LNormal3.5-5.1The Formerly [facility] Physician GroupComment on above:Performed By: #### LYTES, CBC, LIPID, PP, BUN, CREAT #### [place] [address] USAProtein [Mass/Vol]6.5 g/dLNormal6.4-8.9The Formerly [facility] Physician GroupComment on above:Performed By: #### LYTES, CBC, LIPID, PP, BUN, CREAT #### [place] [address] USASodium [Moles/Vol]139 mmol/PIebdyz871-085Jau Formerly [facility] Physician GroupComment on above:Performed By: #### LYTES, CBC, LIPID, PP, BUN, CREAT #### [place] [address] USAUrea nitrogen [Mass/Vol]12 mg/dLNormal7-25The Formerly [facility] Physician GroupComment on above:Performed By: #### LYTES, CBC, LIPID, PP, BUN, CREAT #### [place] [address] USACalcium [Mass/volume] in Serum or PlasmaOrdered By: Elsie Harper on 64-25-4602Zjrxorw [Mass/Vol]Calcium [Mass/volume] in Serum or Plasma 8.6-10.3FOhioHealth Pickerington Methodist HospitalCarbon dioxide, total [Moles/volume] in Serum or PlasmaOrdered By: Elsie Harper on 37-28-4300OO9 [Moles/Vol]Carbon dioxide, total [Moles/volume] in Serum or Kcykmu62.0-31.0German HospitalChloride [Moles/volume] in Serum or PlasmaOrdered By: Elsie Meredith on 08-83-0221Ppzfsrmk [Moles/Vol]Chloride [Moles/volume] in Serum or Plasma 98-107German HospitalColor Auto (U)Ordered By: Elsie Harper on 20-48-2780Jsqku (U)Color of Urine by AutoYellowGerman HospitalComplete Blood Count Auto Diffon 29-23-4110Ogpknoidp (Bld) [#/Vol]0.1 10*3/uLNormal0.0-0.2The Formerly [facility] Physician GroupComment on above:Result Comment: PERFORMED BY: [place] [address] PATHOLOGIST ROUGE SIFTER TIARA TUBBS M.D.Performed By: #### LYTES, CBC, LIPID, PP, BUN, CREAT #### [place] [address] USABasophils/100 WBC (Bld)1.2 %Normal.The Formerly [facility] Hospital Physician GroupComment on above:Performed By: #### LYTES, CBC, LIPID, PP, BUN, CREAT #### [facility] [address] [place] [address] USAEosinophils (Bld) [#/Vol]0.5 10*3/uLHigh0.0-0.45The Formerly [facility] Physician GroupComment on above:Performed By: #### LYTES, CBC, LIPID, PP, BUN, CREAT #### [place] [address] USAEosinophils/100 WBC (Bld)10.8 %Normal.The Formerly [facility] Physician GroupComment on above:Performed By: #### LYTES, CBC, LIPID, PP, BUN, CREAT #### [place] [address] USAErythrocyte distribution width (RBC) [Ratio]14.2 %Normal 12.0-14.8The Formerly [facility] Physician GroupComment on above:Performed By: #### LYTES, CBC, LIPID, PP, BUN, CREAT #### [place] [address] USAHematocrit (Bld) [Volume fraction]38.8 %Qtllmv27.8-50.0The Formerly [facility] Physician GroupComment on above:Performed By: #### LYTES, CBC, LIPID, PP, BUN, CREAT #### [place] [address] USAHemoglobin (Bld) [Mass/Vol]13.1 g/qDJoinha43.0-17.0The Formerly [facility] Physician GroupComment on above:Performed By: #### LYTES, CBC, LIPID, PP, BUN, CREAT #### [place] [address] USALymphocytes (Bld) [#/Vol]1.1 10*3/uLNormal1.00-4.8The Formerly [facility] Physician GroupComment on above:Performed By: #### LYTES, CBC, LIPID, PP, BUN, CREAT #### [place] [address] USALymphocytes/100 WBC (Bld)25.6 %Normal.The Formerly [facility] Physician GroupComment on above:Performed By: #### LYTES, CBC, LIPID, PP, BUN, CREAT #### [address] Stewart StreetH (RBC) [Entitic mass]32.4 brCxslqa19.5-35.2The Formerly [facility] Physician GroupComment on above:Performed By: #### LYTES, CBC, LIPID, PP, BUN, CREAT #### [address]V (RBC) [Entitic vol]96.1 cWFnpbci51.5-101The Formerly [facility] Physician GroupComment on above:Performed By: #### LYTES, CBC, LIPID, PP, BUN, CREAT #### [address] [place] [address] USAMean Corpuscular HGB Conc33.7 g/nKMoobac30.5-35.6The Formerly [facility] Physician GroupComment on above:Performed By: #### LYTES, CBC, LIPID, PP, BUN, CREAT #### [place] [address] USAMonocytes (Bld) [#/Vol]0.6 10*3/uLNormal0.0-0.8The Formerly [facility] Physician GroupComment on above:Performed By: #### LYTES, CBC, LIPID, PP, BUN, CREAT #### [place] [address] USAMonocytes/100 WBC (Bld)14.8 %Normal.The Formerly [facility] Physician GroupComment on above:Performed By: #### LYTES, CBC, LIPID, PP, BUN, CREAT #### [place] [address] USANeutrophils (Bld) [#/Vol]2.1 10*3/uLNormal1.8-7.7The Formerly [facility] Physician GroupComment on above:Performed By: #### LYTES, CBC, LIPID, PP, BUN, CREAT #### [place] [address] USANeutrophils/100 WBC (Bld)47.6 %Normal.The Formerly [facility] Physician GroupComment on above:Performed By: #### LYTES, CBC, LIPID, PP, BUN, CREAT #### [place] [address] USANRBC%0.1 /100{WBC}Normal0-0.5The [facility]ly [facility] Group Comment on above:Performed By: #### LYTES, CBC, LIPID, PP, BUN, CREAT #### [place] [address] USAPlatelet mean volume (Bld) [Entitic vol]7.8 fLNormal 6.6-10.1The Formerly [facility] Physician GroupComment on above:Performed By: #### LYTES, CBC, LIPID, PP, BUN, CREAT #### [facility] [address] [place] [address] USAPlatelets (Bld) [#/Vol]322 10*3/jBXghweu511-529Zsi Formerly [facility] Physician GroupComment on above:Performed By: #### LYTES, CBC, LIPID, PP, BUN, CREAT #### [facility] [address] [place] [address] USARBC (Bld) [#/Vol]4.04 10*6/uLNormal3.90-5.60The Formerly [facility] Physician GroupComment on above:Performed By: #### LYTES, CBC, LIPID, PP, BUN, CREAT #### [facility] [address] [place] [address] USAWBC (Bld) [#/Vol]4.4 10*3/uLNormal4.1-10.5The Formerly [facility] Physician GroupComment on above:Performed By: #### LYTES, CBC, LIPID, PP, BUN, CREAT #### [place] [address] USACreatinine [Mass/volume] in Serum or PlasmaOrdered By: Elsie Harper on 21-62-8034Sialzpectp [Mass/Vol]Creatinine [Mass/volume] in Serum or Plasma0.70-1.30German HospitalECG 12 lead ECGon 07-09-2024 ECG 12 lead ECGUN[facility] [place] [address] [place] [address] Electrocardiograph Report Signed Patient: Morgan Latham MR#: [id number] 034 : 1965 Acct:[id number] Age/Sex: 58 / M ADM Date: 07/09/24 Loc: Room: Type: [facility] Attending Dr: Elsie Harper MD Ordering Provider: Elsie Harper MD Date of Service: 07/09/2412/26/737 ECG/ECG 12 [...] QT has lengthened Confirmed by Van Wright ([id number]) on 07/09/2024 11:14:26 AM Referred By: Electronically Signed By: Van Wright Transcribed By: MUS Signed By Van Wright MD 07/09/[address] [place] [address] Physician GroupEosinophils Auto (Bld) [#/Vol] Ordered By: Elsie Harper on 00-16-6514Zxtutsrztju (Bld) [#/Vol]Automated eosinophil countHigh0.0-0.45German HospitalEosinophils/100 WBC Auto (Bld)Ordered By: Elsie Harper on 03-73-4492Ckxcuauardu/100 WBC (Bld) Automated eosinophil %.German HospitalErythrocyte distribution width Auto (RBC) [Ratio]Ordered By: Elsie Harper on 14-61-4735Brciiviqtpp distribution width (RBC) [Ratio]Erythrocyte distribution width [Ratio] by Automated count12.0-14.8German HospitalGlobulin Calc (S) [Mass/Vol]Ordered By: Elsie Harper on 84-39-1571Zxdgzaga (S) [Mass/Vol]Serum globulin measurement by calculation (mass/volume)German HospitalGlucose [Mass/volume] in Serum or PlasmaOrdered By: Elsie Harper on 27-83-7493Wcxohnk [Mass/Vol]Glucose [Mass/volume] in Serum or PfpcajHpic80-081 German HospitalComment on above:ADA recommended reference rangeGlucose [Mass/volume] in Urine by Test stripOrdered By: Elsie Harper on 31-74-9604Grhbzgo Test strip (U) [Mass/Vol]Glucose [Mass/volume] in Urine by Test stripNormalGerman HospitalHematocrit Auto (Bld) [Volume fraction]Ordered By: Elsie Harper on 61-64-2128Yqzssoddfs (Bld) [Volume fraction]Hematocrit [Volume Fraction] of Blood by Automated count38.8-50.0 German HospitalHemoglobin A1c measurementOrdered By: lEsie Harper on 92-27-5451BqG3g (Bld) [Mass fraction]5.6 %Normal4.3-5.6FOhioHealth Pickerington Methodist HospitalComment on above:Increased risk for diabetes: 5.7 - 6.4diabetes: >6.4glycemic control for adults with diabetes: <7.0Result Comment: Increased risk for diabetes: 5.7 - 6.4 diabetes: >6.4 glycemic control for adults with diabetes: <7.0Performed By: #### LYTES, CBC, LIPID, PP, BUN, CREAT #### [place] [address] USAHemoglobin Test strip Ql (U)Ordered By: Elsie Harper on 93-14-4323Thqmoczcgd Ql (U)Hemoglobin [Presence] in Urine by Test stripNegative German HospitalHemoglobin [Mass/volume] in BloodOrdered By: Elsie Harper on 18-55-4066Ecnnwplkbi (Bld) [Mass/Vol]Hemoglobin [Mass/volume] in Blood13.0-17.0German HospitalKetones Test strip Ql (U)Ordered By: Elsie Harper on 53-92-0681Kciemll Ql (U)Ketones [Presence] in Urine by Test stripNegativeGerman HospitalLeukocyte esterase [Presence] in Urine by Test stripOrdered By: Elsie Harper on 50-12-2052Dzuuhyenx esterase Test strip Ql (U)Leukocyte esterase [Presence] in Urine by Test stripNegative German HospitalLeukocytes [#/volume] corrected for nucleated erythrocytes in Blood by Automated counOrdered By: Elsie Harper on 37-68-3019MQC corrected for nucl RBC Auto (Bld) [#/Vol]Leukocytes [#/volume] corrected for nucleated erythrocytes in Blood by Automated coun4.1-10.5FOhioHealth Pickerington Methodist HospitalLymphocytes Auto (Bld) [#/Vol]Ordered By: Elsie Harper on 02-19-8980Viwonvqklrp (Bld) [#/Vol]Lymphocytes [#/volume] in Blood by Automated count1.00-4.8German HospitalLymphocytes/100 WBC Auto (Bld) Ordered By: Elsie Harper on 51-71-0048Tknmjbupike/100 WBC (Bld)Lymphocytes/100 leukocytes in Blood by Automated count.[facility] HospitalH Auto (RBC) [Entitic mass]Ordered By: Elsie Harper on 89-35-9811TFR (RBC) [Entitic mass]MCH [Entitic mass] by Automated count27.5-35.2FOhioHealth Pickerington Methodist HospitalMCHC Auto (RBC) [Mass/Vol]Ordered By: Elsie Harper on 71-98-0711LZZK (RBC) [Mass/Vol]MCHC [Mass/volume] by Automated count32.5-35.6FOhioHealth Pickerington Methodist HospitalMCV Auto (RBC) [Entitic vol]Ordered By: Elsie Harper on 07-09-2024 MCV (RBC) [Entitic vol]MCV [Entitic volume] by Automated count83.5-101German HospitalMonocytes Auto (Bld) [#/Vol]Ordered By: Elsie Harper on 41-35-2397Admydxbck (Bld) [#/Vol]Automated blood monocyte count0.0-0.8German HospitalMonocytes/100 WBC Auto (Bld)Ordered By: Elsie Harper on 85-48-9687Llbqnqiuc/100 WBC (Bld)Automated monocyte %.German HospitalNeutrophils Auto (Bld) [#/Vol]Ordered By: Elsie Harper on 07-09-2024 Neutrophils (Bld) [#/Vol]Neutrophils [#/volume] in Blood by Automated count 1.8-7.7FOhioHealth Pickerington Methodist HospitalNeutrophils/100 WBC Auto (Bld)Ordered By: Elsie Harper on 71-60-5018Fapffktzwir/100 WBC (Bld)Automated neutrophil %. German HospitalNitrite Test strip Ql (U)Ordered By: Elsie Harper on 41-68-0928Vjrajkx Ql (U)Nitrite [Presence] in Urine by Test strip NegativeGerman HospitalNo Panel InformationOrdered By: Elsie Harper on 19-47-1598Hjkapygdz GFR (CKD-EPI)> 60.0 mL/MinGerman HospitalPharmacy Creatinine Clearance (ChemN/AFOhioHealth Pickerington Methodist HospitalNucleated erythrocytes [Presence] in Blood by Automated countOrdered By: Elsie Harper on 28-25-5106Nbasomnjg RBC Auto Ql (Bld)Nucleated erythrocytes [Presence] in Blood by Automated count0-0.5FOhioHealth Pickerington Methodist Hospital Platelet mean volume Auto (Bld) [Entitic vol]Ordered By: Elsie Harper on 82-81-4330Sklofwyf mean volume (Bld) [Entitic vol]Platelet mean volume [Entitic volume] in Blood by Automated count6.6-10.1FOhioHealth Pickerington Methodist Hospital Platelets Auto (Bld) [#/Vol]Ordered By: Elsie Harper on 49-96-6877Anjdjdums (Bld) [#/Vol]Platelets [#/volume] in Blood by Automated znevb294-569KcygokxtxGerman HospitalPotassium [Moles/volume] in Serum or PlasmaOrdered By: Elsie Harper on 29-59-7234Yzwbbkkhk [Moles/Vol]Potassium [Moles/volume] in Serum or Plasma3.5-5.1FOhioHealth Pickerington Methodist HospitalProtein Test strip (U) [Mass/Vol]Ordered By: Elsie Harper on 67-03-9859Cmauski (U) [Mass/Vol]Protein [Mass/volume] in Urine by Test stripNegativeGerman Hospital Protein [Mass/volume] in Serum or PlasmaOrdered By: Elsie Harper on 07-09-2024 Protein [Mass/Vol]Protein [Mass/volume] in Serum or Plasma6.4-8.9German HospitalRBC Auto (Bld) [#/Vol]Ordered By: Elsie Harper on 35-49-7430ODE (Bld) [#/Vol]Erythrocytes [#/volume] in Blood by Automated count 3.90-5.60[facility] Charles Hospitalerum or plasma albumin/globulin mass ratioOrdered By: Elsie Harper on 37-38-6941Pnvjziw/Globulin [Mass ratio]Serum or plasma albumin/globulin mass ratioMercy Health St. Charles Hospitalerum or plasma anion gap determinationOrdered By: Elsie Harper on 15-70-3722Fbywy gap [Moles/Vol]Serum or plasma anion gap determination6.0-15.0[facility] Charles Hospitalodium [Moles/volume] in Serum or PlasmaOrdered By: Elsie Harper on 02-28-2619Affcip [Moles/Vol]Sodium [Moles/volume] in Serum or Qxgjmy716-[address] Charles Hospitalpecific gravity Test strip (U) [Rel density] Ordered By: Elsie Harepr on 60-16-2624Ztoluprv gravity (U) [Rel density]Specific gravity of Urine by Test strip1.001-1.030German HospitalUrea nitrogen [Mass/volume] in Serum or PlasmaOrdered By: Elsie Harper on 07-09-2024 Urea nitrogen [Mass/Vol]Urea nitrogen [Mass/volume] in Serum or Plasma7-25 German HospitalUrinalysison 90-58-6332Tdenhofbal (U)Clear NormalClearThe Formerly [facility] Physician GroupComment on above:Order Comment: Name Collection Type:: Clean-Voided MidstreamPerformed By: #### LYTES, CBC, LIPID, PP, BUN, CREAT #### [facility] [address] [place] [address] USABilirubin,UrineNegativeNormalNegativeSanta Rosa Medical Center Physician GroupComment on above:Order Comment: Name Collection Type:: Clean- Voided MidstreamPerformed By: #### LYTES, CBC, LIPID, PP, BUN, CREAT #### [facility] [address] [id number] USAColor (U)Light-YellowNormalYellowThe Formerly [facility] Physician GroupComment on above:Order Comment: Name Collection Type:: Clean-Voided MidstreamPerformed By: #### LYTES, CBC, LIPID, PP, BUN, CREAT #### [facility] [address] [place] [address] USAGlucose Ql (U)NormalNormalNormalThBoise Veterans Affairs Medical Center Physician GroupComment on above:Order Comment: Name Collection Type:: Clean-Voided MidstreamPerformed By: #### LYTES, CBC, LIPID, PP, BUN, CREAT #### [facility] [address] [place] [address] USAKetones Ql (U)NegativeNormalNegativeThe [facility]ly [facility] Physician GroupComment on above:Order Comment: Name Collection Type:: Clean- Voided MidstreamPerformed By: #### LYTES, CBC, LIPID, PP, BUN, CREAT #### [place] [address] USALeukocyte esterase Test strip Ql (U)NegativeNormalNegative The [facility] Physician GroupComment on above:Order Comment: Name Collection Type:: Clean-Voided MidstreamPerformed By: #### LYTES, CBC, LIPID, PP, BUN, CREAT #### [place] [address] USANitrite,UrineNegativeNormalNegativeThe [facility]ly [facility] Physician GroupComment on above:Order Comment: Name Collection Type:: Clean-Voided MidstreamPerformed By: #### LYTES, CBC, LIPID, PP, BUN, CREAT #### [place] [address] USAOccult Blood,UrineNegativeNormalNegativeThe [facility]ly [facility] Physician GroupComment on above:Order Comment: Name Collection Type:: Clean- Voided MidstreamResult Comment: PERFORMED BY: [place] [address] PATHOLOGIST ROUGE SIFTER TIARA TUBBS M.D.Performed By: #### LYTES, CBC, LIPID, PP, BUN, CREAT #### [place] [address] USApH (U)7.0 [pH]Normal5.0-9.0The [facility] Physician Group Comment on above:Order Comment: Name Collection Type:: Clean-Voided Midstream Performed By: #### LYTES, CBC, LIPID, PP, BUN, CREAT #### [place] [address] USAProtein,UrineNegativeNormalNegativeThe [facility] Physician GroupComment on above:Order Comment: Name Collection Type:: Clean-Voided MidstreamPerformed By: #### LYTES, CBC, LIPID, PP, BUN, CREAT #### [address] [address] [place] [address] USASpecificy [place],Urine1.244Kkpktz5.001-1.030The [facility]ly [facility] Physician GroupComment on above:Order Comment: Name Collection Type:: Clean- Voided MidstreamPerformed By: #### LYTES, CBC, LIPID, PP, BUN, CREAT #### [facility] [address] [id number] USAUrobilinogen,UrineNormalNormalNormalThe [facility]ly [facility] Physician GroupComment on above:Order Comment: Name Collection Type:: Clean- Voided MidstreamPerformed By: #### LYTES, CBC, LIPID, PP, BUN, CREAT #### [facility] [address] [place] [address] USAUrobilinogen Test strip (U) [Mass/Vol]Ordered By: Elsie Harper on 88-44-0862Xeukyqkfappp (U) [Mass/Vol]Urobilinogen [Mass/volume] in Urine by Test stripOhio State Harding HospitalWBC Auto (Bld) [#/Vol] Ordered By: Elsie Harper on 25-46-9019EIE (Bld) [#/Vol]Leukocytes [#/volume] in Blood by Automated count4.1-10.5FOhioHealth Pickerington Methodist HospitalXR shoulder LT min 2V*on 52-11-2016RX shoulder LT min 2V*[facility] [address] [place] [address] XRay Report Signed Patient: Morgan Latham MR#: [id number] : 1965 Acct:[id number] Age/Sex: 58 / M ADM Date: 07/09/24 Loc: [facility] [place], [place] Room: Type: [facility] Attending Dr: Elsie Harper MD Copies to: Elsie Harper MD Ordering Provider: Elsie Harper MD Date of Service: 07/09/24 XR/XR shoulder [...] Shyam Hahn M.D.07/09/2024 12:55 PM Dictation Location: [facility]- Transcribed By: [facility] 07/09/24 1255 Dictated By: Shyam Hahn DO 07/09/24 1251 Signed By: 07/09/24 1255[facility] Physician GrouppH Test strip (U)Ordered By: Elsie Harper on 23-33-4821zY (U)pH of Urine by Test strip5.0-9.0German HospitalBacteria identified Cx Nom (Unsp spec)Ordered By: Agnes Houser on 20-52-4358Gwgbvehabwgvzb and review of laboratory resultsAbWood County HospitalMicroscopic observation Gram stain Nom (Unsp spec)(2+) Few Polymorphonuclear leukocytesAbVeterans Health AdministrationMicroscopic observation Gram stain Nom (Unsp spec)PositiveAbWood County HospitalUnMercy Health Kings Mills HospitalTissu/Wound Culture/SmearOrdered By: Agnes Houser on 76-44-0147Pcnddpum identified Cx Nom (Unsp spec)(1+) Rare Pseudomonas aeruginosaAbVeterans Health AdministrationBacteria identified Cx Nom (Unsp spec)PositiveCincinnati Children's Hospital Medical Center CBC WITH AUTO DIFFon 41-18-1962YCNTVCWRD ABSOLUTE AUTO0.1NOMS HealthcareBasophils/100 WBC (Bld)1.0 %0.2 - 2.0 %NOMS HealthcareEosinophils/100 WBC (Bld)2.6 %0.9 - 7.0 %NOMS HealthcareErythrocyte distribution width (RBC) [Ratio]15.0 %11.0 - 15.0 %NOMS HealthcareHematocrit (Bld) [Volume fraction]38.2 %Low42.0 - 54.0 %Kindred HospitalHemoglobin (Bld) [Mass/Vol]12.8 g/dLLow14.0 - 18.0 g/dLKindred HospitalIMMATURE GRANULOCYTES ABS AUTO0.02NOMS [facility] Immature granulocytes/100 WBC (Bld)0.3 %0.0 - 0.5 %Kindred HospitalInterpretation and review of laboratory resultsAbnormalNONM HealthcareLYMPHOCYTES ABSOLUTE AUTO1.0LowNOSelect Specialty HospitalLymphocytes/100 WBC (Bld)13.4 %Low20.5 - 60.0 %[facility] VA Medical CenterH (RBC) [Entitic mass]31.8 pg25.9 - 34.0 pgJohn J. Pershing VA Medical CenterHC (RBC) [Mass/Vol]33.5 g/dL29.9 - 35.2 g/dLJohn J. Pershing VA Medical CenterV (RBC) [Entitic vol]95.0 fL High80.0 - 94.0 fLKindred HospitalMONOCYTES ABSOLUTE AUTO0.7NOSelect Specialty Hospital Monocytes/100 WBC (Bld)10.2 %1.7 - 12.0 %Kindred HospitalNEUTROPHILS ABSOLUTE AUTO5.3NOMS [facility] SpringfieldNeutrophils/100 WBC (Bld)72.5 %43.0 - 75.0 %Kindred HospitalPlatelet mean volume (Bld) [Entitic vol]9.5 fL9.5 - 13.5 fLKindred HospitalTB EO #0.2NOMS [facility] SpringfieldTB SFS725RKLU [facility] RBC4.02LowNOFulton Medical Center- [facility] WBC7.2NOMS HealthcareCLINISYNCNOMS HealthcareCNCOon 88-77-6342HRXT Letter TextNormalCMiddletown Hospitalgical pathology studyon 02-28-2024 Surgical pathology studyPathology report.total SEE COMMENT Surgical Pathology Case: [id number] Authorizing Provider: Saul Gonzales MD Collected: 02/28/2024 0833 Ordering Location: [facility] Received: 02/28/2024 0939 [facility] [place] Pathologist: Sunshine Duncan MD Specimens: A) [...] soft tissue aggregating to 1.7 x 0.8 x0.4 cm. The specimen is submitted in toto [...] in toto in two cassettes following decalcification. [facility]CLOVISNormalUniSt. Mary's Medical CenterComment on above:Order Comment: Pre-op diagnosis: Chronic maxillary sinusitis [J32.0] Deviated nasal septum [J34.2]Basic metabolic 2000 panelon 74-07-9000Dlqbo gap [Moles/Vol]12 mmol/GHeoebh40-37VdeubaxskxTrinity Health System East Campus Comment on above:Performed By: #### 90688-1 #### SEKOU Santiago ([id number]) [facility] ([facility]) [address] [place] [address] 41431Plljxeh [Mass/Vol]9.7 mg/dLNormal8.6-10.6Tr[facility] Health System East CampusComment on above:Performed By: #### 00342-8 #### SEKOU Santiago ([id number]) [facility] ([facility]) [address] [place], [place] [address]Biodvfml [Moles/Vol]106 mmol/IIrxyyw50-654BbumofgokbMemorial Health System Marietta Memorial HospitalComment on above:Performed By: #### 48770-4 #### SEKOU Santiago ([id number]) [facility] ([facility]) [address] [place] [address] 96609RP6 [Moles/Vol]24 mmol/DSlbthv22-89SbqbpbsqtsMemorial Health System Marietta Memorial HospitalComment on above:Performed By: #### 92222-3 #### SEKOU Santiago ([id number]) [facility] ([facility]) [address] [place] [address] 71450Iltymusiez [Mass/Vol]1.09 mg/dLNormal0.50-1.30UnMemorial Health System Marietta Memorial HospitalComment on above:Performed By: #### 90563-2 #### SEKOU Santiago ([id number]) [facility] ([facility]) [address] [place] [address] 18153Ynzfphlone filtration rate/1.73 sq M.lwacqrgpr66 mL/min/1.73m*2Normal>60UnMemorial Health System Marietta Memorial HospitalComment on above:Result Comment: Calculations of estimated GFR are performed using the 2020 CKD-EPI Study Refit equation without the race variable for the IDMS-Traceable creatinine methods. https://jasn.asnjournals.org/content/early//ASN.7717789278Htswehaou By: #### 29704-7 #### SEKOU Santiago ([id number]) [facility] ([facility]) [address] [place] [address] 58526Jqgsetn [Mass/Vol]104 mg/sMXgoc28-80PgcwyjyruhMemorial Health System Marietta Memorial HospitalComment on above:Performed By: #### 98221-9 #### SEKOU Santiago ([id number]) [facility] ([facility]) [address] [place], [place] [address]Regdvaqya [Moles/Vol]4.4 mmol/LNormal3.5-5.3Tr[facility] System East CampusComment on above:Performed By: #### 21883-3 #### SEKOU Santiago ([id number]) [facility] ([facility]) [address] [place] [address] 23690Gomudm [Moles/Vol]138 mmol/VNwsguz333-654AjlnwfgsthMemorial Health System Marietta Memorial HospitalComment on above:Performed By: #### 86957-4 #### SEKOU Santiago ([id number]) [facility] ([facility]) [address] [place] [address] 10673Oefa nitrogen [Mass/Vol]14 mg/dLNormal6-23Tr[facility] System East CampusComment on above:Performed By: #### 27784-6 #### SEKOU Santiago ([id number]) [facility] ([facility]) [address] [place] [address] 50932Mdjsi type and Indirect antibody screen panel (Bld)on 16-84-8924VQI group Nom (Bld)ONKindred Hospital LimaComment on above:Performed By: #### 37509-9 #### SEKOU Santiago ([id number]) [facility] ([facility]) [address] [place] [address] 41776Qxznz group antibody screen QlNegativeNoRegency Hospital ToledoComment on above:Performed By: #### 46892-8 #### SEKOU Santiago ([id number]) [facility] ([facility]) [address] [place] [address] 21525Z Ag Ql (Bld)PositiveNoRegency Hospital ToledoComment on above:Performed By: #### 83669-7 #### SEKOU Santiago ([id number]) [facility] ([facility]) [address] [place] [address] 826[address]GRH panel Auto (Bld)on 39-27-4157Fgrmydlhhnj distribution width (RBC) [Ratio]17.4 %High11.5-14.5UnMemorial Health System Marietta Memorial HospitalComment on above:Performed By: #### 37128-3 #### SEKOU Santiago ([id number]) [facility] ([facility]) [address] [place] [address] 11864Afkvfmzpmm (Bld) [Volume fraction]40.6 %Low41.0-52.0 [facility] East CampusComment on above:Performed By: #### 55795-1 #### SEKOU Santiago ([id number]) [facility] ([facility]) [address] [place] [address] 50166Gqriuamqvg (Bld) [Mass/Vol]13.3 g/dLLow13.5-17.5UnMemorial Health System Marietta Memorial HospitalComment on above:Performed By: #### 32754-5 #### SEKOU Santiago (99741) [facility] ([facility]) [address] [place], [place] [address]UNY (RBC) [Entitic mass]29.6 zmBmmegk98.0-34.0UnMemorial Health System Marietta Memorial HospitalComment on above:Performed By: #### 20503-7 #### SEKOU Santiago ([id number]) [facility] ([facility]) [address] [place] [address] 90536UJUS (RBC) [Mass/Vol]32.8 g/bYZkbzro77.0-36.0UnMemorial Health System Marietta Memorial HospitalComment on above:Performed By: #### 62097-5 #### SEKOU Santiago ([id number]) [facility] ([facility]) [address] [place], [place] [address]WWS (RBC) [Entitic vol]90 nWZscbwf21-374JyvrhavpxvMemorial Health System Marietta Memorial HospitalComment on above:Performed By: #### 13391-6 #### SEKOU Santiago (02643) [facility] ([facility]) [address] [place] [address] 78038Yaehwlylh RBC/100 WBC (Bld) [Ratio]0.0 /100 WBCsNormal0.0-0.0 [facility] East CampusComment on above:Performed By: #### 55591-0 #### SEKOU Santiago (40858) [facility] ([facility]) [address] [place], [place] [address]Xierlbbha (Bld) [#/Vol]332 x10*3/yWVotbix695-546QpuhhhlwgcMemorial Health System Marietta Memorial HospitalComment on above:Performed By: #### 36585-7 #### SEKOU Santiago (86701) [facility] ([facility]) [address] [place], [place] [address]JDW (Bld) [#/Vol]4.50 x10*6/uLNormal4.50-5.90UnMemorial Health System Marietta Memorial HospitalComment on above:Performed By: #### 75601-9 #### SEKOU Santiago (25753) [facility] ([facility]) [address] [place], [place] [address]PVD (Bld) [#/Vol]5.5 x10*3/uLNormal4.4-11.3Tr[facility] Health System East CampusComment on above:Performed By: #### 95330-7 #### SEKOU Santiago (45150) [facility] ([facility]) [address] [place], [place] [address]NHS 12-LEADon 09-54-5266HTO 12-LEADVentricular Rate 71 Atrial Rate 71 P-R Interval 136 QRS Duration 82 Q-T Interval 384 QTC Calculation(Bazett) 417 P [place] 17 R [place] 19 T [place] 16 QRS Count 12 Q Onset 221 [...] by Roel Gleason ([id number]) on 02/16/2024 12:13:44 AMNTracy Medical CenterCalcium [Mass/volume] in Serum or PlasmaOrdered By: Odilia Ernandez on 57-38-9416Pvgzytq [Mass/Vol]9.4 mg/dL8.6-10.3FOhioHealth Pickerington Methodist Hospital Carbon dioxide, total [Moles/volume] in Serum or PlasmaOrdered By: Odilia Ernandez on 86-62-8151WZ1 [Moles/Vol]25.6 mmol/L21.0-31.0German HospitalChloride [Moles/volume] in Serum or PlasmaOrdered By: Odilia Ernandez on 71-97-8959Ysishyky [Moles/Vol]106 mmol/C07-706KncekxobhGerman Hospital Creatine kinase [Enzymatic activity/volume] in Serum or PlasmaOrdered By: Odilia Ernandez on 55-27-1302SM [Catalytic activity/Vol]73 U/L48-708ZfdxdxughGerman HospitalCreatinine [Mass/volume] in Serum or PlasmaOrdered By: Odilia Ernandez on 76-79-1180Qjvzjhnykf [Mass/Vol]1.09 mg/dL0.70-1.30German HospitalGlucose [Mass/volume] in Serum or PlasmaOrdered By: Odilia Ernandez on 48-84-9889Ofyhdhk [Mass/Vol]66 mg/iI28-504WiopbajviGerman Hospital Comment on above:ADA recommended reference rangeRandom Glucose Reference Range is dependent on time and content of last meal. Glucose of more than 200 mg/dL in a nonstressed, ambulatory subject supports the diagnosisof Diabetes Mellitus.No Panel InformationOrdered By: Odilia Ernandez on 79-71-4780Xppezbter GFR (CKD-EPI)> 60.0 mL/MinGerman HospitalPharmacy Creatinine Clearance (Chem N/AFOhioHealth Pickerington Methodist HospitalPotassium [Moles/volume] in Serum or Plasma Ordered By: Odilia Ernandez on 61-14-6398Nolyhatqg [Moles/Vol]4.2 mmol/L3.5-5.[address] Charles Hospitalerum or plasma anion gap determinationOrdered By: Odilia Ernandez on 22-49-5871Knamz gap [Moles/Vol]12.6 mmol/L6.0-15.0Fire[facility] Regional Medical CenterSodium [Moles/volume] in Serum or PlasmaOrdered By: Odilia Ernandez on 96-71-0840Zisney [Moles/Vol]140 mmol/W793-219OmybllvkkGerman HospitalUrea nitrogen [Mass/volume] in Serum or PlasmaOrdered By: Odilia Ernandez on 67-35-9132Ytwg nitrogen [Mass/Vol]12 mg/dL7-25German HospitalAlanine aminotransferase [Enzymatic activity/volume] in Serum or PlasmaOrdered By: Odilia Ernandez on 40-41-4001EDT [Catalytic activity/Vol]15 U/L 7-52German HospitalAspartate aminotransferase [Enzymatic activity/volume] in Serum or PlasmaOrdered By: Odilia Ernandez on 29-97-4773HPY [Catalytic activity/Vol]17 U/Q76-32GyovnomlvGerman HospitalCalcium [Mass/volume] in Serum or PlasmaOrdered By: Odilia Ernandez on 71-41-1400Kitajca [Mass/Vol]9.5 mg/dL8.6-10.3FOhioHealth Pickerington Methodist HospitalCarbon dioxide, total [Moles/volume] in Serum or PlasmaOrdered By: Odilia Ernandez on 66-40-2095RA5 [Moles/Vol]28.1 mmol/L21.0-31.0German HospitalChloride [Moles/volume] in Serum or PlasmaOrdered By: Odiila Ernandez on 06-66-3225Luhanzfl [Moles/Vol]103 mmol/F83-510KydbgozdqGerman HospitalCholesterol [Mass/volume] in Serum or PlasmaOrdered By: Odilia Ernandez on 40-07-5196Vqfrwmluenf [Mass/Vol]139 mg/rK232-522OacepjqjyGerman HospitalComment on above: Chol less than 200 mg/dl low riskChol 201-239 mg/dl borderline riskChol 240 mg/dl and greater high riskCholesterol in LDL Calc [Mass/Vol]Ordered By: Odilia Ernandez on 68-52-3838Uwgvsonthjn in LDL [Mass/Vol]61 mg/dL0-100German HospitalComment on above:LDL ATP III CLASSIFICATIONLDL less than 100 mg/dL OptimalLDL 100-129 mg/dL Near or above oswljkmPYA208-887 mg/dL Borderline highLDL 160-189 mg/dL HighLDL greater than 189 mg/dL Very highCholesterol in VLDL Calc [Mass/Vol]Ordered By: Odilia Ernandez on 26-15-1847Tunlhywnerz in VLDL [Mass/Vol]11 mg/dLGerman HospitalCreatinine [Mass/volume] in Serum or PlasmaOrdered By: Odilia Ernandez on 66-86-5800Qpgzewdhll [Mass/Vol]1.00 mg/dL0.70-1.30German HospitalGlucose [Mass/volume] in Serum or PlasmaOrdered By: Odilia Ernandez on 52-08-5397Qlfoyut [Mass/Vol]101 mg/hE53-603 German HospitalComment on above:ADA recommended reference rangeRandom Glucose Reference Range is dependent on time and content of last meal. Glucose of more than 200 mg/dL in a nonstressed, ambulatory subject supports the diagnosisof Diabetes Mellitus.Natriuretic peptide B [Mass/Vol] Ordered By: Odilia Ernandez on 05-21-3463Asxhksgbrgs peptide B (Bld) [Mass/Vol]370.0 pg/mL5-100German HospitalNo Panel InformationOrdered By: Odilia Ernandez on 36-82-3448Dqfilmkyr GFR (CKD-EPI)> 60.0 mL/MinGerman HospitalPharmacy Creatinine Clearance (ChemN/[facility] HospitalPotassium [Moles/volume] in Serum or PlasmaOrdered By: Odilia Ernandez on 50-89-6388Ltcvadkdj [Moles/Vol]4.7 mmol/L3.5-5.1FOhio State Harding Hospitalerum or plasma anion gap determinationOrdered By: Odilia Ernandez on 08-80-1817Jnjvi gap [Moles/Vol]11.6 mmol/L6.0-15.0[facility] Charles Hospitalerum or plasma high density lipoprotein (HDL) cholesterol measurement Ordered By: Odilia Ernandez on 25-26-3343Llklebrlcrg in HDL [Mass/Vol]66 mg/dL23-92 German HospitalComment on above:HDL CHOL ATP-III CLASSIFICATION Cardiovascular RiskHDL > or equal to 60 mg/dL LOWHDL < 40 mg/dL HIGHSerum or plasma total cholesterol/high density lipoprotein (HDL) cholesterol mass ratOrdered By: Odilia Ernandez on 61-96-6038Kevzplagjhz.total/Cholesterol in HDL [Mass ratio]2.1 {ratio}<5.0[facility] St. Charles Hospitalodium [Moles/volume] in Serum or PlasmaOrdered By: Odilia Ernandez on 59-05-7848Nqwtvr [Moles/Vol]138 mmol/H050-354QkiaumnvdGerman HospitalTriglyceride [Mass/volume] in Serum or PlasmaOrdered By: Odilia Ernandez on 10-23-2023 Triglyceride [Mass/Vol]59 mg/dL0-149German HospitalComment on above:TRIG ATP III CLASSIFICATIONTRIG less than 150 mg/dL NormalTRIG 150-199 mg/dL Borderline highTRIG 200-500 mg/dL High TRIG greater than 500 mg/dL Very highStandard traceable to the Center for Disease Conrtrol and Prevention (CDC) test method.Urea nitrogen [Mass/volume] in Serum or PlasmaOrdered By: Odilia Ernandez on 32-59-3477Jqrc nitrogen [Mass/Vol]18 mg/dL7-25German HospitalCalcium [Mass/volume] in Serum or PlasmaOrdered By: Odilia Ernandez on 49-77-7399Ificqwa [Mass/Vol]9.6 mg/dL8.6-10.3FOhioHealth Pickerington Methodist Hospital Carbon dioxide, total [Moles/volume] in Serum or PlasmaOrdered By: Odilia Ernandez on 39-97-1723JO2 [Moles/Vol]24.3 mmol/L21.0-31.0German HospitalChloride [Moles/volume] in Serum or PlasmaOrdered By: Odilia Ernandez on 85-27-1972Xnasvias [Moles/Vol]104 mmol/B30-526VunnyesqpGerman Hospital Creatinine [Mass/volume] in Serum or PlasmaOrdered By: Odilia Ernandez on 07-16-2023 Creatinine [Mass/Vol]1.19 mg/dL0.70-1.30German HospitalGlucose [Mass/volume] in Serum or PlasmaOrdered By: Odilia Ernandez on 13-87-8425Mmrhxlt [Mass/Vol]124 mg/iU80-688ZhrasywybGerman HospitalComment on above:ADA recommended reference rangeRandom Glucose Reference Range is dependent on time and content of last meal. Glucose of more than 200 mg/dL in a nonstressed, ambulatory subject supports the diagnosisof Diabetes Mellitus.Natriuretic peptide B [Mass/Vol]Ordered By: Odilia Ernandez on 86-79-0373Mzlzgstpawu peptide B (Bld) [Mass/Vol]375.0 pg/mL5-100German HospitalNo Panel InformationOrdered By: Odilia Ernandez on 73-59-1809Vsauqntar GFR (CKD-EPI)> 60.0 mL/MinGerman HospitalPharmacy Creatinine Clearance (ChemN/A German HospitalPotassium [Moles/volume] in Serum or Plasma Ordered By: Odilia Ernandez on 42-45-4426Jhaumbhni [Moles/Vol]4.1 mmol/L3.5-5.[address] Charles Hospitalerum or plasma anion gap determinationOrdered By: Odilia Ernandez on 57-59-9173Trqeo gap [Moles/Vol]12.8 mmol/L6.0-15.0[facility] Charles Hospitalodium [Moles/volume] in Serum or PlasmaOrdered By: Odilia Ernandez on 93-80-1522Cmcklp [Moles/Vol]137 mmol/I713-001LnlghrwzgGerman HospitalUrea nitrogen [Mass/volume] in Serum or PlasmaOrdered By: Odilia Ernandez on 80-73-4226Oslg nitrogen [Mass/Vol]15 mg/dL7-25German HospitalXR Chest 2 Viewson . Minimal residual left-sided pleural effusion status post median sternotomy. No pneumothorax. Signed by: Guevara Goldstein 06/22/2023 11:38 AM Dictation workstation: [id number] MMODALInterpreted By: Guevara Goldstein, STUDY: XR CHEST 2 VIEWS; 06/21/2023 11:57 am INDICATION: Signs/Symptoms:postop protocol. COMPARISON: 05/11/2023. ACCESSION NUMBER(S): [id number] ORDERING CLINICIAN: OTTONIEL TREVINO FINDINGS: CARDIOMEDIASTINAL SILHOUETTE: Patient is status post median sternotomy. LUNGS: Lungs are clear of focal airspace disease or edema. Small residual left. No pneumothorax. ABDOMEN: No remarkable upper abdominal findings. BONES: No acute osseous changes. [facility] MMODALAmadou Goldstein MD - 06/22/2023 Interpreted By: Guevara Goldstein, STUDY: XR CHEST 2 VIEWS; 06/21/2023 11:57 am INDICATION: Signs/Symptoms:postop protocol. COMPARISON: 05/11/2023. ACCESSION NUMBER(S): [id number] ORDERING CLINICIAN: OTTONIEL TREVINO FINDINGS: CARDIOMEDIASTINAL SILHOUETTE: Patient is status post median sternotomy. LUNGS: Lungs are clear of focal airspace disease or edema. Small residual left. No pneumothorax. ABDOMEN: No remarkable upper abdominal findings. BONES: No acute osseous changes. IMPRESSION: 1. Minimal residual left-sided pleural effusion status post median sternotomy. No pneumothorax. Signed by: Guevara Goldstein 06/22/2023 11:38 AM Dictation workstation: [id number] [facility] Work Phone: XR Chest 2 ViewsOrdered By: Amadou Goldstein on 06-22-2023 [facility] Work Phone: [phone] Chest 2 Viewson 79-54-7086Sygqnmgby Study observation (narrative)[facility] Work Phone: Electrocardiogram, 12-leadOrdered By: Geovany Olsen on 60-25-5903Oigjgb Cdob556LVJGnzlirurosCleveland Clinic Work Phone: [phone] Jeif32njovkhmWdwspytdctSelect [facility] Work Phone: [phone] Hyzfev536 [facility] Work Phone: [phone] Xnkxu647 [facility] Work Phone: PR Olxzowsv139 [facility] Work Phone: [phone] Fvncf004 [facility] Work Phone: QRS Eiiim48axoibSqqpwxacxeGrant Hospital Work Phone: [phone] Athixwxr87 [facility] Work Phone: QT Ujhswlzc981 [facility] Work Phone: [phone] Calculation(Bazett)490 [facility] Work Phone: [phone] Zmytvydhny447 [facility] Work Phone: [phone] Xqmi22fblufwcLutnfaxehgTr[facility] Work Phone: [phone] Haec54sptrbnwSlmloxmyzjTrinity Health System [facility] Work Phone: [phone] Izbnac067 [facility] Work Phone: [phone] Fnxv397EYZMjevbovhfkC[facility] Work Phone: [phone] Work Phone: [phone], 12-leadon [phone] sinus rhythm Lateral infarct (cited on or before 03-MAY-2023) T wave abnormality, consider inferior ischemia T wave abnormality, consider anterior ischemia Abnormal ECG When compared with ECG of 03-MAY-2023 19:05, QRS axis Shifted left Criteria for Septal infarct are no longer Present T wave inversion more evident in Anterolateral leads Confirmed by Geovany Olsen ([id number]) on 05/29/2023 11:14:51 AMGeovany Cedeno MD - 05/29/2023 Normal sinus rhythm Lateral infarct (cited on or before 03-MAY-2023) T wave abnormality, consider inferior ischemia T wave abnormality, consider anterior ischemia Abnormal ECG When compared with ECG of 03-MAY-2023 19:05, QRS axis Shifted left Criteria for Septal infarct are no longer Present T wave inversion more evident in Anterolateral leads Confirmed by Geovany Olsen ([id number]) on 05/29/2023 11:14:51 AM [facility] Work Phone: [phone] panel Auto (Bld)on [id number] distribution width (RBC) [Ratio]13.5 %11.5 - 14.5 %[facility], IncHematocrit (Bld) [Volume fraction]28.1 %Low41.0 - 52.0 %[facility], IncHemoglobin (Bld) [Mass/Vol]8.8 g/dLLow13.5 - 17.5 g/dL [facility], IncInterpretation and review of laboratory results AbnormalUnMercy Health Kings Mills HospitalMCH (RBC) [Entitic mass]29.6 pg26.0 - 34.0 pgUnMercy Health Kings Mills HospitalMCHC (RBC) [Mass/Vol]31.3 g/dLLow32.0 - 36.0 g/dLUnMercy Health Kings Mills HospitalMCV (RBC) [Entitic vol]95 fL80 - 100 fLUniGrant HospitalNucleated RBC/100 WBC (Bld) [Ratio]0.0 % [facility], IncPlatelet mean volume (Bld) [Entitic vol]9.8 fL 7.5 - 11.5 [facility] CenterPlateboston dispensary (Bld) [#/Vol]496 10*3/[facility] Orthopedic CenterRBC (Bld) [#/Vol]2.97 10*6/[facility] HospitalWBC (Bld) [#/Vol]9.3 10*3/[facility] HospitalUnMercy Health Kings Mills HospitalMagnesiumon 71-26-3027Rtudivoss [Mass/Vol]2.08 mg/dL1.60 - 2.40 mg/dLSelect [facility]ty [facility], IncMagnesium [Mass/Vol]on 08-64-4865Hwkhfmiodmuscv and review of laboratory resultsNormal [facility], IncNo Panel Informationon [id number] Health Kings Mills HospitalRenal function 2000 panelon [id number] BCP dye [Mass/Vol]3.6 g/dL3.4 - 5.0 g/dLUnMercy Health Kings Mills HospitalAnion gap [Moles/Vol]13 mmol/L10 - 20 mmol/[facility] HospitalCalcium [Mass/Vol]9.5 mg/dL8.6 - 10.6 mg/dLSelect [facility]ty [facility], IncChloride [Moles/Vol]102 mmol/L98 - 107 mmol/[facility] Memorial HospitalCO2 [Moles/Vol]26 mmol/L21 - 32 mmol/[facility] HospitalCreatinine [Mass/Vol]0.96 mg/dL0.50 - 1.30 mg/dLUnMercy Health Kings Mills HospitalGFR/1.73 sq M.predicted MDRD (S/P/Bld) [Vol rate/Area]- PINFUniGrant HospitalGlucose [Mass/Vol]123 mg/eNTilg47 - 99 mg/dLUnMercy Health Kings Mills HospitalInterpretation and review of laboratory resultsAbnoalUAvita Health System Galion HospitalPhosphate [Mass/Vol]4.2 mg/dL2.5 - 4.9 mg/dLUnMercy Health Kings Mills HospitalPotassium [Moles/Vol]4.4 mmol/L3.5 - 5.3 mmol/[facility] HospitalSodium [Moles/Vol]137 mmol/L136 - 145 mmol/[facility] Memorial HospitalUrea nitrogen [Mass/Vol]19 mg/dL6 - 23 mg/dLUnMercy Health Kings Mills HospitalCB panel Auto (Bld)on [id number] distribution width (RBC) [Ratio]13.3 %11.5 - 14.5 %[facility] Hematocrit (Bld) [Volume fraction]30.2 %Low41.0 - 52.0 %[facility], IncHemoglobin (Bld) [Mass/Vol]9.6 g/dLLow13.5 - 17.5 g/dLSelect Medical Specialty [facility], IncInterpretation and review of laboratory resultsAbnoal [facility], IncMCH (RBC) [Entitic mass]30.7 pg26.0 - 34.0 pg [facility], IncMCHC (RBC) [Mass/Vol]31.8 g/dLLow32.0 - 36.0 g/dLUnMercy Health Kings Mills HospitalMCV (RBC) [Entitic vol]97 fL80 - 100 fL [facility], IncNucleated RBC/100 WBC (Bld) [Ratio]0.0 % [facility], IncPlatelet mean volume (Bld) [Entitic vol]10.1 fL 7.5 - 11.5 fLUniGrant HospitalPlatelets (Bld) [#/Vol]455 10*3/uL HighUnMercy Health Kings Mills HospitalRB (Bld) [#/Vol]3.13 10*6/[facility] HospitalWBC (Bld) [#/Vol]10.9 10*3/[facility] HospitalUnMercy Health Kings Mills HospitalMagnesiumon 63-09-8304Hqmebhbod [Mass/Vol]2.19 mg/dL1.60 - 2.40 mg/dLUnMercy Health Kings Mills HospitalNo Panel Informationon [id number] and review of laboratory resultsNormal [facility], IncUnMercy Health Kings Mills HospitalRenal function 1999 panelon [id number] BCP dye [Mass/Vol]3.9 g/dL3.4 - 5.0 g/dL [facility], IncAnion gap [Moles/Vol]16 mmol/L10 - 20 mmol/L [facility], IncCalcium [Mass/Vol]9.5 mg/dL8.6 - 10.6 mg/dL [facility], IncChloride [Moles/Vol]98 mmol/L98 - 107 mmol/L [facility], IncCO2 [Moles/Vol]26 mmol/L21 - 32 mmol/L [facility], IncCreatinine [Mass/Vol]1.18 mg/dL0.50 - 1.30 mg/dLUnMercy Health Kings Mills HospitalGFR/1.73 sq M.predicted MDRD (S/P/Bld) [Vol rate/Area]72 mL/min/{1.73_m2}- PINFUniGrant HospitalGlucose [Mass/Vol]89 mg/dL74 - 99 mg/dLUnMercy Health Kings Mills HospitalPhosphate [Mass/Vol]4.2 mg/dL2.5 - 4.9 mg/dLUnMercy Health Kings Mills HospitalPotassium [Moles/Vol]4.3 mmol/L3.5 - 5.3 mmol/[facility] HospitalSodium [Moles/Vol]136 mmol/L136 - 145 mmol/[facility] HospitalUrea nitrogen [Mass/Vol]20 mg/dL6 - 23 mg/dLUnMercy Health Kings Mills HospitalCBC panel Auto (Bld)on [id number] distribution width (RBC) [Ratio]13.2 % 11.5 - 14.5 %[facility], IncHematocrit (Bld) [Volume fraction] 30.6 %Low41.0 - 52.0 %[facility], IncHemoglobin (Bld) [Mass/Vol]9.9 g/dLLow13.5 - 17.5 g/dLUnMercy Health Kings Mills Hospital Interpretation and review of laboratory resultsAbnormBlanchard Valley Health SystemH (RBC) [Entitic mass]30.4 pg26.0 - 34.0 pgUnMercy Health Kings Mills HospitalMCHC (RBC) [Mass/Vol]32.4 g/dL32.0 - 36.0 g/dLUnMercy Health Kings Mills HospitalMCV (RBC) [Entitic vol]94 fL80 - 100 [facility] CenterNucleated RBC/100 WBC (Bld) [Ratio]0.0 %[facility], IncPlatelet mean volume (Bld) [Entitic vol]10.0 fL7.5 - 11.5 [facility] HospitalniGrant HospitalPlatelets (Bld) [#/Vol]388 10*3/[facility] HospitalRBC (Bld) [#/Vol]3.26 10*6/[facility] HospitalWBC (Bld) [#/Vol]10.7 10*3/[facility] HospitalUnMercy Health Kings Mills HospitalMagnesiumon 66-61-7968Zrktcnvps [Mass/Vol]2.09 mg/dL1.60 - 2.40 mg/dLUnMercy Health Kings Mills HospitalMagnesium [Mass/Vol]on 05-13-2023 Interpretation and review of laboratory resultsNormalUAvita Health System Galion HospitalNo Panel Informationon [id number] Health Kings Mills HospitalRenal function 2000 panelon 11-13-7313Rmxnsex BCP dye [Mass/Vol]3.9 g/dL3.4 - 5.0 g/dLUnMercy Health Kings Mills HospitalAnion gap [Moles/Vol]16 mmol/L10 - 20 mmol/[facility] HospitalCalcium [Mass/Vol]9.3 mg/dL8.6 - 10.6 mg/dLUnMercy Health Kings Mills HospitalChloride [Moles/Vol]96 mmol/LLow98 - 107 mmol/[facility] HospitalCO2 [Moles/Vol]28 mmol/L21 - 32 mmol/L [facility], IncCreatinine [Mass/Vol]1.08 mg/dL0.50 - 1.30 mg/dLUnMercy Health Kings Mills HospitalGFR/1.73 sq M.predicted MDRD (S/P/Bld) [Vol rate/Area]80 mL/min/{1.73_m2}- PINFUniGrant HospitalGlucose [Mass/Vol]94 mg/dL74 - 99 mg/dLUnMercy Health Kings Mills HospitalInterpretation and review of laboratory resultsAbnormalUAvita Health System [facility] Hospital Phosphate [Mass/Vol]4.1 mg/dL2.5 - 4.9 mg/dLSelect [facility] Potassium [Moles/Vol]4.0 mmol/L3.5 - 5.3 mmol/[facility] Sodium [Moles/Vol]136 mmol/L136 - 145 mmol/[facility] Urea nitrogen [Mass/Vol]17 mg/dL6 - 23 mg/dLUnMercy Health Kings Mills HospitalUS Heart TransthoracicOrdered By: Anjel Olson on 83-12-7545KG A4C EF27.9 [facility] Work Phone: UnMercy Health Kings Mills Hospital Work Phone: US Heart Transthoracicon [phone] Clinic [facility] Hospital Work Phone: US.doppler Upper extremity vein - lefton 05-13-2023 SYNGCleveland Clinic Union Hospital Work Phone: UnMercy [facility] Hospital Work Phone: Radiology Study observation (narrative)[facility] Work Phone: CBC panel Auto (Bld)on [id number] distribution width (RBC) [Ratio]13.0 %11.5 - 14.5 %[facility] IncHematocrit (Bld) [Volume fraction]30.6 %Low41.0 - 52.0 %[facility] IncHemoglobin (Bld) [Mass/Vol]10.1 g/dLLow13.5 - 17.5 g/dL [facility], IncInterpretation and review of laboratory results AbnormalUnMercy Health Kings Mills HospitalMCH (RBC) [Entitic mass]30.7 pg26.0 - 34.0 pgUnMercy Health Kings Mills HospitalMCHC (RBC) [Mass/Vol]33.0 g/dL32.0 - 36.0 g/dLUnMercy Health Kings Mills HospitalMCV (RBC) [Entitic vol]93 fL80 - 100 fLUniGrant HospitalNucleated RBC/100 WBC (Bld) [Ratio]0.0 % [facility] mean volume (Bld) [Entitic vol]10.4 fL 7.5 - 11.5 [facility] HospitalniGrant HospitalPlateboston dispensary (Bld) [#/Vol]338 10*3/uL [facility], IncRBC (Bld) [#/Vol]3.29 10*6/uLLowUnMercy Health Kings Mills HospitalWBC (Bld) [#/Vol]8.9 10*3/uLUnMercy Health Kings Mills HospitalUnMercy Health Kings Mills HospitalMagnesiumon 31-82-4263Ozlkzdcti [Mass/Vol]2.05 mg/dL1.60 - 2.40 mg/dLUnMercy Health Kings Mills HospitalMagnesium [Mass/Vol]on 89-72-0106Plpllkcsjpwwzv and review of laboratory resultsNormal [facility], IncNo Panel Informationon 57-25-1341StkqpmhvxmMercy Health Kings Mills HospitalRenal function 2000 panelon 89-71-6449Janriki BCP dye [Mass/Vol]3.8 g/dL3.4 - 5.0 g/dLUnMercy Health Kings Mills HospitalAnion gap [Moles/Vol]16 mmol/L10 - 20 mmol/[facility] HospitalCalcium [Mass/Vol]9.4 mg/dL8.6 - 10.6 mg/dLSelect [facility], IncChloride [Moles/Vol]96 mmol/LLow98 - 107 mmol/[facility] HospitalCO2 [Moles/Vol]27 mmol/L21 - 32 mmol/[facility] HospitalCreatinine [Mass/Vol]1.01 mg/dL0.50 - 1.30 mg/dLUnMercy Health Kings Mills HospitalGFR/1.73 sq M.predicted MDRD (S/P/Bld) [Vol rate/Area]86 mL/min/{1.73_m2}- PINFUniGrant HospitalGlucose [Mass/Vol]103 mg/uVNlpi07 - 99 mg/dLUnMercy Health Kings Mills HospitalInterpretation and review of laboratory resultsAbnormal [facility], IncPhosphate [Mass/Vol]4.0 mg/dL2.5 - 4.9 mg/dL [facility], IncPotassium [Moles/Vol]4.4 mmol/L3.5 - 5.3 mmol/L [facility], IncSodium [Moles/Vol]135 mmol/DWqu466 - 145 mmol/L [facility], IncUrea nitrogen [Mass/Vol]17 mg/dL6 - 23 mg/dL [facility], IncCBC panel Auto (Bld)on 02-04-5971Nvvhlrnqyjz distribution width (RBC) [Ratio]13.1 %11.5 - 14.5 %[facility] IncHematocrit (Bld) [Volume fraction]33.6 %Low41.0 - 52.0 %[facility] IncHemoglobin (Bld) [Mass/Vol]10.9 g/dLLow13.5 - 17.5 g/dL [facility], IncInterpretation and review of laboratory results AbnormalUnMercy Health Kings Mills HospitalMCH (RBC) [Entitic mass]31.0 pg26.0 - 34.0 pgUnMercy Health Kings Mills HospitalMCHC (RBC) [Mass/Vol]32.4 g/dL32.0 - 36.0 g/dLUnMercy Health Kings Mills HospitalMCV (RBC) [Entitic vol]96 fL80 - 100 fLUniGrant HospitalNucleated RBC/100 WBC (Bld) [Ratio]0.0 % [facility], IncPlatelet mean volume (Bld) [Entitic vol]10.6 fL 7.5 - 11.5 [facility] HospitalniGrant HospitalPlatelets (Bld) [#/Vol]304 10*3/uL [facility], IncRBC (Bld) [#/Vol]3.52 10*6/uLLowUnMercy Health Kings Mills HospitalWBC (Bld) [#/Vol]9.7 10*3/uLUnMercy Health Kings Mills HospitalUnMercy Health Kings Mills HospitalECG 12-LEADon 33-11-6706WND 12-LEAD Ventricular Rate 100 Atrial Rate 100 P-R Interval 134 QRS Duration 94 Q-T Interval 380 QTC Calculation(Bazett) 490 P [place] 18 R [place] 68 T [place] 42 QRS Count 17 Q Onset 212 [...] by Geovany Olsen ([id number]) on 05/29/2023 11:14:51 AMNormalAtlantiCare Regional Medical Center, Mainland CampusGlucose Test strip manual (Bld) [Mass/Vol]on 19-51-2017Gqhnrlo [Mass/Vol]130 mg/sOHdud80 - 99 mg/dLUnMercy Health [facility] Mills Hospital Interpretation and review of laboratory resultsAbnoalUniGrant HospitalUnMercy Health [facility] HospitalMagnesiumon 22-09-9470Hrgftrhje [Mass/Vol]2.01 mg/dL1.60 - 2.40 mg/dLSelect [facility]ty [facility], IncMagnesium [Mass/Vol]on 52-20-2167Cqqjvoghpxhvzs and review of laboratory resultsNoUniversity Hospitals Lake West Medical CenterNo Panel Informationon 04-41-0357AqgejuderkMercy Health Kings Mills HospitalRenal function 2000 panelon 52-49-7455Zguhykd BCP dye [Mass/Vol]4.1 g/dL3.4 - 5.0 g/dLUnMercy Health Kings Mills HospitalAnion gap [Moles/Vol]18 mmol/L10 - 20 mmol/[facility] HospitalCalcium [Mass/Vol]9.6 mg/dL8.6 - 10.6 mg/dLUnMercy Health Kings Mills HospitalChloride [Moles/Vol]96 mmol/LLow98 - 107 mmol/[facility] HospitalCO2 [Moles/Vol]26 mmol/L21 - 32 mmol/[facility] HospitalCreatinine [Mass/Vol]1.04 mg/dL0.50 - 1.30 mg/dLUnMercy Health Kings Mills HospitalGFR/1.73 sq M.predicted MDRD (S/P/Bld) [Vol rate/Area]83 mL/min/{1.73_m2}- PINFUniversKindred HospitalGlucose [Mass/Vol]128 mg/fRPcnk37 - 99 mg/dLUnMercy Health Kings Mills HospitalInterpretation and review of laboratory resultsAbnormal [facility], IncPhosphate [Mass/Vol]4.4 mg/dL2.5 - 4.9 mg/dL [facility], IncPotassium [Moles/Vol]4.6 mmol/L3.5 - 5.3 mmol/L [facility], IncSodium [Moles/Vol]135 mmol/XUzs924 - 145 mmol/L [facility], IncUrea nitrogen [Mass/Vol]18 mg/dL6 - 23 mg/dL [facility], IncXR Chest 2 Views and Right oblique and Left obliqueon 31-13-6994XA MMODALUH MMODALUnMercy Health Kings Mills Hospital Work Phone: Radiology Study observation (narrative)[facility] Work Phone: xr Chest 2 Views and Right oblique and Left oblique Ordered By: Mauro Lund on [id number] Health Kings Mills Hospital Work Phone: CBC panel Auto (Bld)on 69-93-7042Lekfwlbizvs distribution width (RBC) [Ratio]13.9 %11.5 - 14.5 %[facility], IncHematocrit (Bld) [Volume fraction]30.7 %Low41.0 - 52.0 %[facility], IncHemoglobin (Bld) [Mass/Vol]8.7 g/dLLow13.5 - 17.5 g/dL [facility], IncInterpretation and review of laboratory results AbnormalUnMercy Health Kings Mills HospitalMCH (RBC) [Entitic mass]31.1 pg26.0 - 34.0 pgUnMercy Health Kings Mills HospitalMCHC (RBC) [Mass/Vol]28.3 g/dLLow32.0 - 36.0 g/dLUnCHRISTUS Spohn Hospital AlicevelandMCV (RBC) [Entitic vol]110 yWXrij83 - 100 [facility] CenterNucleated RBC/100 WBC (Bld) [Ratio]0.0 % [facility], IncPlatelet mean volume (Bld) [Entitic vol]11.2 fL 7.5 - 11.5 [facility] CenterPlatelets (Bld) [#/Vol]128 10*3/uL [facility] HospitalRBC (Bld) [#/Vol]2.80 10*6/uLCorey HospitalWBC (Bld) [#/Vol]10.8 10*3/[facility] HospitalUnMercy Health [facility] Mills HospitalCalcium, Ionizedon 05-10-2023 Calcium.ionized (Bld) [Moles/Vol]1.22 mmol/L1.1 - 1.33 mmol/[facility] HospitalCalcium, ionizedon 99-58-4745Tgtqeph.ionized (Bld) [Moles/Vol]1.14 mmol/L1.1 - 1.33 mmol/[facility] Calcium.ionized (Bld) [Moles/Vol]on 12-68-7341Oxmuywbgoarrqd and review of laboratory resultsNoCoshocton Regional Medical CenterInterpretation and review of laboratory resultsNoCoshocton Regional Medical CenterGlucose Test strip manual (Bld) [Mass/Vol]on 58-60-6429Qpkovwt [Mass/Vol]121 mg/pBOfnj57 - 99 mg/dL [facility], IncInterpretation and review of laboratory results AbnormalUnMercy Health Kings Mills HospitalUnMercy Health [facility] Hospital Glucose [Mass/Vol]115 mg/mHJjim27 - 99 mg/dLUnMercy Health [facility] Interpretation and review of laboratory resultsAbnoCoshocton Regional Medical CenterGlucose [Mass/Vol]96 mg/dL74 - 99 mg/dLUnMercy Health Kings Mills HospitalInterpretation and review of laboratory resultsNoCoshocton Regional Medical Center Magnesiumon 07-45-5484Hulliqkid [Mass/Vol]2.09 mg/dL1.60 - 2.40 mg/dLUnMercy Health Kings Mills HospitalMagnesium [Mass/Vol]1.96 mg/dL1.60 - 2.40 mg/dLUnMercy Health Kings Mills HospitalMagnesium [Mass/Vol]on 08-85-8408Lcuswwvjbjycps and review of laboratory resultsNormMercy Health St. Anne HospitalInterpretation and review of laboratory resultsNormMercy Health St. Anne HospitalNo Panel Informationon 77-29-4655Sbafe Expiration DateOct2022 23:59 EDT [facility], IncDispense StatusREUnMercy Health Kings Mills HospitalPRODUCT BLOOD [id number] Health Kings Mills HospitalPRODUC CODE [id number] Health Kings Mills HospitalUn ABOOUnLouis [facility] RHPositiveSelect [facility], IncUN [id number] [facility], IncX INTEPCOMPMercy Health Willard HospitalUnMercy Health Kings Mills HospitalPrepar RBC: 4 Unitson 29-08-0128Awoxt Expiration DateOct2022 23:59 EDTUnMercy Health Kings Mills HospitalUnit [id number]-RXbcxvoveqpThe [facility] [id number]-*[facility] Number [id number]-IZwvfjbabhmCleveland ClinicUnit [id number]-* [facility], IncUnMercy Health Kings Mills HospitalRenal function 2000 panelon 42-90-9917Hplasuw BCP dye [Mass/Vol]3.7 g/dL3.4 - 5.0 g/dL [facility], IncAnion gap [Moles/Vol]18 mmol/L10 - 20 mmol/L [facility], IncCalcium [Mass/Vol]9.0 mg/dL8.6 - 10.6 mg/dL [facility], IncChloride [Moles/Vol]99 mmol/L98 - 107 mmol/L [facility], IncCO2 [Moles/Vol]22 mmol/L21 - 32 mmol/L [facility], IncCreatinine [Mass/Vol]0.90 mg/dL0.50 - 1.30 mg/dLUnMercy Health Kings Mills HospitalGFR/1.73 sq M.predicted MDRD (S/P/Bld) [Vol rate/Area]- [facility] CenterGlucose [Mass/Vol]140 mg/bGXrcg46 - 99 mg/dLUnMercy Health Kings Mills HospitalInterpretation and review of laboratory resultsAbnoalUAvita Health System Galion HospitalPhosphate [Mass/Vol]3.4 mg/dL2.5 - 4.9 mg/dLUnMercy Health Kings Mills HospitalPotassium [Moles/Vol]3.8 mmol/L3.5 - 5.3 mmol/LUnMercy Health Kings Mills HospitalSodium [Moles/Vol]135 mmol/CEdw897 - 145 mmol/[facility] HospitalUrea nitrogen [Mass/Vol]19 mg/dL6 - 23 mg/dLUnMercy Health Kings Mills HospitalAlbumin BCP dye [Mass/Vol]3.3 g/dLLow3.4 - 5.0 g/dLUnMercy Health [facility] Anion gap [Moles/Vol]12 mmol/L10 - 20 mmol/[facility] Calcium [Mass/Vol]8.5 mg/dLLow8.6 - 10.6 mg/dLUnMer[facility] Health [facility] Chloride [Moles/Vol]107 mmol/L98 - 107 mmol/[facility] CO2 [Moles/Vol]21 mmol/L21 - 32 mmol/[facility] Creatinine [Mass/Vol]0.79 mg/dL0.50 - 1.30 mg/dLUnMercy Health [facility] HospitalGFR/1.73 sq M.predicted MDRD (S/P/Bld) [Vol rate/Area]- [facility] CenterGlucose [Mass/Vol]104 mg/qPZjuo85 - 99 mg/dLUnMercy Health Kings [facility] HospitalInterpretation and review of laboratory resultsAbnormal [facility], IncPhosphate [Mass/Vol]2.2 mg/dLLow2.5 - 4.9 mg/dL [facility], IncPotassium [Moles/Vol]4.4 mmol/L3.5 - 5.3 mmol/L [facility], IncSoum [Moles/Vol]136 mmol/L136 - 145 mmol/L [facility], IncUrea nitrogen [Mass/Vol]22 mg/dL6 - 23 mg/dL [facility], IncXR Chest Single viewon [id number] MMODALUH MMODALUnMercy Health [facility] Hospital Work Phone: Un[facility] Work Phone: Radiology Study observation (narrative)[facility] Work Phone: aCT Coag (Bld)on 64-21-4534Hymbippahekkub and review of laboratory resultsAbnoCoshocton Regional Medical CenterInterpretation and review of laboratory resultsAbWood County HospitalInterpretation and review of laboratory results NormalSelect [facility]ty [facility], IncUnMercy Health [facility] Hospital ACTIVATED CLOTTING TIME HIGHon 60-24-6932STJ Coag (Bld)90 [facility] HospitalACT Coag (Bld)510 [facility] ACT Coag (Bld)422 [facility] CenterACT Coag (Bld)446 [facility] CenterACT Coag (Bld)433 [facility] CenterACT Coag (Bld)96 [facility] HospitalCBC panel Auto (Bld) on 28-62-0365Bxnlfagwlrc distribution width (RBC) [Ratio]13.7 %11.5 - 14.5 % [facility], IncHematocrit (Bld) [Volume fraction]30.1 %Low41.0 - 52.0 %[facility], IncHemoglobin (Bld) [Mass/Vol]9.8 g/dLLow 13.5 - 17.5 g/dLUnMercy Health [facility] HospitalInterpretation and review of laboratory resultsAbnoSelect Medical TriHealth Rehabilitation HospitalMCH (RBC) [Entitic mass]30.9 pg26.0 - 34.0 pgUnMercy Health Kings Mills HospitalMCHC (RBC) [Mass/Vol] 32.6 g/dL32.0 - 36.0 g/dLUnMercy Health Kings Mills HospitalMCV (RBC) [Entitic vol]95 fL80 - 100 fLUniGrant HospitalNucleated RBC/100 WBC (Bld) [Ratio]0.0 %[facility], IncPlatelet mean volume (Bld) [Entitic vol]11.9 fLHigh7.5 - 11.5 [facility] (Bld) [#/Vol]144 10*3/uLMain Campus Medical Center (Bld) [#/Vol]3.17 10*6/[facility] (Bld) [#/Vol]11.8 10*3/uLHigh [facility], IncUnMercy Health Kings Mills HospitalErythrocyte distribution width (RBC) [Ratio]13.5 %11.5 - 14.5 %[facility], IncHematocrit (Bld) [Volume fraction]28.0 %Low41.0 - 52.0 %[facility], IncHemoglobin (Bld) [Mass/Vol]9.3 g/dLLow13.5 - 17.5 g/dL [facility], IncInterpretation and review of laboratory results AbnormalMercy Health Anderson HospitalH (RBC) [Entitic mass]31.3 pg26.0 - 34.0 pgMercy Health Anderson HospitalHC (RBC) [Mass/Vol]33.2 g/dL32.0 - 36.0 g/dLMercy Health Anderson HospitalV (RBC) [Entitic vol]94 fL80 - 100 [facility] CenterNucleated RBC/100 WBC (Bld) [Ratio]0.0 % [facility] Cliniclet mean volume (Bld) [Entitic vol]11.3 fL 7.5 - 11.5 [facility] (Bld) [#/Vol]142 10*3/uL [facility] HospitalRB (Bld) [#/Vol]2.97 10*6/uLCorey HospitalW (Bld) [#/Vol]12.3 10*3/uLMarion HospitalCalcium, Ionizedon 05-09-2023 Calcium.ionized (Bld) [Moles/Vol]1.15 mmol/L1.1 - 1.33 mmol/[facility], ionizedOrdered By: Amada Hernandez on 05-09-2023 Calcium.ionized (Bld) [Moles/Vol]1.20 mmol/L1.1 - 1.33 mmol/[facility] HospitalCalcium.ionized (Bld) [Moles/Vol]on 05-09-2023 Interpretation and review of laboratory resultsNoCoshocton Regional Medical CenterCalcium.ionized (Bld) [Moles/Vol] Ordered By: Amada Hernandez on 14-39-5313Hnwntbehfjrtlg and review of laboratory resultsNoCoshocton Regional Medical Center Electrocardiogram 12 LeadOrdered By: Geovany Olsen on 40-89-4540Ehtlvn Xmiq75QHH [facility] Work Phone: [phone] Gdid04kedevrbSzdpuypiolProMedica Flower Hospital Work Phone: [phone] Wcoana560 [facility] Work Phone: [phone] Meklf308 [facility] Work Phone: [phone] Hhdtiups388 [facility] Work Phone: [phone] Wrtzn510 [facility] Work Phone: [phone] Ttjyb87denzrZmexxpqmtaGrant Hospital Work Phone: [phone] Zmzycxoz01 [facility] Work Phone: [phone] Ezdfgsdz475 [facility] Work Phone: [phone] Calculation(Bazett)494 [facility] Work Phone: [phone] Iyixxavivi331 [facility] Work Phone: [phone] Pyhu522pcvcfoiDtjytqrswiProMedica Flower Hospital Work Phone: [phone] [place]-3degreesSelect [facility] Work Phone: [phone] Ordhfu169 [facility] Work Phone: [phone] Hjck20BAESwpszqlapmCleveland Clinic Work Phone: [phone] Work Phone: Electrocardiogram 12 Leadon [phone] Hospital Work Phone: Gas and Carbon monoxide and Electrolytes panel (BldA) on 90-84-2223Bxzih gap 4 (BldA) [Moles/Vol]10UnMercy Health Kings Mills Hospital Base excess Calc (Bld) [Moles/Vol]-7.9000 mmol/LLow-2.0 - 3.0 mmol/[facility] HospitalCalcium.ionized (BldA) [Moles/Vol]0.98 mmol/LLow1.10 - 1.33 mmol/[facility] HospitalChloride (BldA) [Moles/Vol]119 mmol/LHigh98 - 107 mmol/[facility] HospitalCO2 (Bld) [Partial pressure]20 mm[Hg]LowUnMercy Health Kings Mills HospitalGlucose [Mass/Vol]91 mg/dL 74 - 99 mg/dLUnMercy Health Kings Mills HospitalHCO3 (Bld) [Moles/Vol]15.2 mmol/L Low22.0 - 26.0 mmol/[facility] HospitalHematocrit Est (Bld) [Volume fraction]13.0 %Low41.0 - 52.0 %[facility] Hemoglobin (Bld) [Mass/Vol]4.2 g/dLCritically low13.5 - 17.5 g/dLUnMercy Health Kings Mills HospitalInterpretation and review of laboratory resultsAbnormal [facility], IncLactate (BldA) [Moles/Vol]0.7 mmol/L0.4 - 2.0 mmol/[facility] HospitalOxygen (Bld) [Partial pressure]86 mm[Hg] [facility], IncOxyhemoglobin (BldA) [Mass fraction]95.6 %94.0 - 98.0 %[facility], IncpH (Bld)7.49 [pH]High7.38 - 7.42 pH [facility], IncPotassium (BldA) [Moles/Vol]2.5 mmol/L Critically low3.5 - 5.3 mmol/[facility] HospitalSodium (BldA) [Moles/Vol]142 mmol/L136 - 145 mmol/[facility] HospitalUnMercy Health Kings Mills HospitalAnion gap 4 (BldA) [Moles/Vol]11UnMercy Health Kings Mills HospitalBase excess Calc (Bld) [Moles/Vol]-1.1000 mmol/L-2.0 - 3.0 mmol/L [facility], IncCalcium.ionized (BldA) [Moles/Vol]1.16 mmol/L 1.10 - 1.33 mmol/[facility] HospitalChloride (BldA) [Moles/Vol] 110 mmol/LHigh98 - 107 mmol/[facility] HospitalCO2 (Bld) [Partial pressure]28 mm[Hg]LowUnMercy Health Kings Mills HospitalGlucose [Mass/Vol]128 mg/wCUwqb27 - 99 mg/dLUnMercy Health Kings Mills HospitalHCO3 (Bld) [Moles/Vol] 21.8 mmol/LLow22.0 - 26.0 mmol/[facility] HospitalHematocrit Est (Bld) [Volume fraction]22.0 %Low41.0 - 52.0 %[facility] Hemoglobin (Bld) [Mass/Vol]7.4 g/dLLow13.5 - 17.5 g/dLUnMercy Health Kings Mills HospitalInterpretation and review of laboratory resultsAbnormalUniversKindred HospitalLactate (BldA) [Moles/Vol]1.0 mmol/L0.4 - 2.0 mmol/L [facility], IncOxygen (Bld) [Partial pressure]90 mm[Hg] [facility], IncOxyhemoglobin (BldA) [Mass fraction]97.7 %94.0 - 98.0 %[facility], IncpH (Bld)7.50 [pH]High7.38 - 7.42 pH [facility], IncPotassium (BldA) [Moles/Vol]3.1 mmol/LLow3.5 - 5.3 mmol/[facility] HospitalSodium (BldA) [Moles/Vol]140 mmol/L 136 - 145 mmol/[facility] HospitalUnMercy Health Kings Mills HospitalGlucose Test strip manual (Bld) [Mass/Vol]on 16-74-1952Pxluded [Mass/Vol]120 mg/gQCwka11 - 99 mg/dLUnMercy Health [facility] Hospital Interpretation and review of laboratory resultsAbOhio State East HospitalGlucose [Mass/Vol]124 mg/aLXqej38 - 99 mg/dLUnMercy Health [facility] HospitalInterpretation and review of laboratory resultsAbOhio State East HospitalGlucose [Mass/Vol]122 mg/eYTxug04 - 99 mg/dLUnMercy Health [facility] HospitalInterpretation and review of laboratory resultsAbOhio State East HospitalGlucose [Mass/Vol]132 mg/yTKguq98 - 99 mg/dLUnMercy Health [facility] HospitalInterpretation and review of laboratory resultsAbOhio State East HospitalGlucose [Mass/Vol]151 mg/dYRlsl21 - 99 mg/dLUnMercy Health [facility] HospitalInterpretation and review of laboratory resultsAbGrand Lake Joint Township District Memorial HospitalMagnesiumon 70-44-8413Cetajzshn [Mass/Vol]2.28 mg/dL1.60 - 2.40 mg/dLUnMercy Health Kings Mills HospitalMagnesium [Mass/Vol]2.29 mg/dL1.60 - 2.40 mg/dLUnMercy Health Kings Mills HospitalMagnesium [Mass/Vol]on 99-02-7524Jtqcmsjpvggrhs and review of laboratory resultsNoSelect Medical [facility] Rehabilitation HospitalInterpretation and review of laboratory resultsNoSelect Medical [facility] HospitalNo Panel Informationon 60-32-5427YdlgqnbmjeGalion Community HospitalRenal function 2000 panelon 59-42-5978Wahwjle BCP dye [Mass/Vol]3.6 g/dL3.4 - 5.0 g/dLUnMercy Health Kings Mills HospitalAnion gap [Moles/Vol]17 mmol/L10 - 20 mmol/[facility] HospitalCalcium [Mass/Vol]8.9 mg/dL 8.6 - 10.6 mg/dLUnMercy Health Kings Mills HospitalChloride [Moles/Vol]107 mmol/L 98 - 107 mmol/[facility] HospitalCO2 [Moles/Vol]20 mmol/LLow21 - 32 mmol/[facility] HospitalCreatinine [Mass/Vol]0.99 mg/dL0.50 - 1.30 mg/dLUnMercy Health Kings Mills HospitalGFR/1.73 sq M.predicted MDRD (S/P/Bld) [Vol rate/Area]88 mL/min/{1.73_m2}- [facility] CenterGlucose [Mass/Vol]103 mg/lZFlzj78 - 99 mg/dLUnMercy Health Kings Mills HospitalInterpretation and review of laboratory resultsAbnoSelect Medical [facility] Rehabilitation HospitalPhosphate [Mass/Vol]2.9 mg/dL2.5 - 4.9 mg/dLUnMercy Health Kings Mills HospitalPotassium [Moles/Vol]3.3 mmol/LLow3.5 - 5.3 mmol/L [facility], IncSodium [Moles/Vol]141 mmol/L136 - 145 mmol/L [facility], IncUrea nitrogen [Mass/Vol]27 mg/dLHigh6 - 23 mg/dLUnMercy Health Kings Mills HospitalAlbumin BCP dye [Mass/Vol]3.6 g/dL3.4 - 5.0 g/dLUnMercy Health Kings Mills HospitalAnion gap [Moles/Vol]15 mmol/L10 - 20 mmol/[facility] HospitalCalcium [Mass/Vol]9.0 mg/dL8.6 - 10.6 mg/dLUnMercy Health [facility] HospitalChloride [Moles/Vol]107 mmol/L98 - 107 mmol/[facility] HospitalCO2 [Moles/Vol]23 mmol/L21 - 32 mmol/L [facility], IncCreatinine [Mass/Vol]1.04 mg/dL0.50 - 1.30 mg/dLUnMercy Health Kings Mills HospitalGFR/1.73 sq M.predicted MDRD (S/P/Bld) [Vol rate/Area]83 mL/min/{1.73_m2}- [facility] CenterGlucose [Mass/Vol]138 mg/zOQqgx45 - 99 mg/dLUnMercy Health [facility] Hospital Interpretation and review of laboratory resultsAbVeterans Health AdministrationPhosphate [Mass/Vol]3.6 mg/dL2.5 - 4.9 mg/dLSelect [facility], IncPotassium [Moles/Vol]3.4 mmol/LLow3.5 - 5.3 mmol/[facility] HospitalSodium [Moles/Vol]142 mmol/L136 - 145 mmol/[facility] HospitalUrea nitrogen [Mass/Vol]27 mg/dLHigh6 - 23 mg/dLSelect [facility], IncXR Abdomen Single viewon 66-89-1930LPRiverview Health Institute Work Phone: [facility] Work Phone: XR Chest Single viewon [phone] [facility] Work Phone: UnMercy Health Kings Mills Hospital Work Phone: [facility] Work Phone: [facility] Work Phone: Radiology Study observation (narrative)[facility] Work Phone: aCT Coag (Bld)on [phone] and review of laboratory resultsAbnoCoshocton Regional Medical CenterInterpretation and review of laboratory resultsAbGrand Lake Joint Township District Memorial HospitalInterpretation and review of laboratory resultsNoSelect [facility] ACTIVATED CLOTTING TIME HIGHon 48-53-1293IBF Coag (Bld)94 [facility] HospitalACT Coag (Bld)458 [facility] ACT Coag (Bld)413 [facility] CenterACT Coag (Bld)465 [facility] CenterACT Coag (Bld)427 [facility] CenterACT Coag (Bld)96 [facility] HospitalCALCIUM, IONIZEDon 05-25-0992Jfrnsib.ionized (Bld) [Moles/Vol]1.10 mmol/L1.1 - 1.33 mmol/L [facility], IncCBC panel Auto (Bld)on 21-66-6403Npwsontfkej distribution width (RBC) [Ratio]13.8 %11.5 - 14.5 %[facility], IncHematomimbres memorial hospital (Bld) [Volume fraction]32.1 %Low41.0 - 52.0 %[facility], IncHemoglobin (Bld) [Mass/Vol]10.5 g/dLLow13.5 - 17.5 g/dL [facility], IncInterpretation and review of laboratory results AbnormalUnFirelands Regional Medical Center South Campus (RBC) [Entitic mass]30.6 pg26.0 - 34.0 pgCenterville (RBC) [Mass/Vol]32.7 g/dL32.0 - 36.0 g/dLUnWVUMedicine Barnesville Hospital (RBC) [Entitic vol]94 fL80 - 100 [facility] CenterNucleated RBC/100 WBC (Bld) [Ratio]0.0 % [facility] mean volume (Bld) [Entitic vol]11.4 fL 7.5 - 11.5 [facility] CenterPlateboston dispensary (Bld) [#/Vol]158 10*3/uL [facility], IncRBC (Bld) [#/Vol]3.43 10*6/uLCorey HospitalWBC (Bld) [#/Vol]13.0 10*3/uLMercer County Community HospitalUnMercy Health Kings Mills HospitalErythrocyte distribution width (RBC) [Ratio]13.5 %11.5 - 14.5 %[facility], IncHematomimbres memorial hospital (Bld) [Volume fraction]31.4 %Low41.0 - 52.0 %[facility] Hemoglobin (Bld) [Mass/Vol]10.3 g/dLLow13.5 - 17.5 g/dLUnMercy Health Kings Mills HospitalInterpretation and review of laboratory resultsAbnormalUProMedica Flower Hospital (RBC) [Entitic mass]30.6 pg26.0 - 34.0 pgCenterville (RBC) [Mass/Vol]32.8 g/dL32.0 - 36.0 g/dLUniversity Hospitals of ClevelandMCV (RBC) [Entitic vol]93 fL80 - 100 [facility] CenterNucleated RBC/100 WBC (Bld) [Ratio]0.0 %[facility] mean volume (Bld) [Entitic vol]11.0 fL7.5 - 11.5 [facility] CenterPlateboston dispensary (Bld) [#/Vol]143 10*3/[facility] HospitalRBC (Bld) [#/Vol]3.37 10*6/[facility] HospitalWBC (Bld) [#/Vol]9.4 10*3/[facility], IonizedOrdered By: Remy Ernandez on 17-11-1046Qndkwdh.ionized (Bld) [Moles/Vol]1.12 mmol/L1.1 - 1.33 mmol/[facility], ionizedon 05-08-2023 Calcium.ionized (Bld) [Moles/Vol]1.11 mmol/L1.1 - 1.33 mmol/[facility].ionized (Bld) [Moles/Vol]on 05-08-2023 Interpretation and review of laboratory resultsNoCoshocton Regional Medical CenterInterpretation and review of laboratory resultsNoAvita Health System.ionized (Bld) [Moles/Vol]Ordered By: Remy Ernandez on 80-96-1007Huhoywksakileo and review of laboratory resultsNoCoshocton Regional Medical CenterCarboxyhemoglobin (BldA) [Mass fraction]on 49-64-6135Wwzcveuayludeww (BldA) [Mass fraction]0.5 %0.0 - 5.0 %[facility], IncMethemoglobin (BldA) [Mass fraction]0.9 %0.0 - 1.5 %[facility], IncDeoxyhemoglobin (BldA) [Mass fraction]0.6 %0.0 - 5.0 %[facility], IncMethemoglobin (BldA) [Mass fraction]0.5 %0.0 - 1.5 %[facility], IncDeoxyhemoglobin (BldA) [Mass fraction]0.7 %0.0 - 5.0 %[facility] IncMethemoglobin (BldA) [Mass fraction]0.9 %0.0 - 1.5 %[facility] Deoxyhemoglobin (BldA) [Mass fraction]0.4 %0.0 - 5.0 %[facility], IncMethemoglobin (BldA) [Mass fraction]0.3 %0.0 - 1.5 %[facility], IncDeoxyhemoglobin (BldA) [Mass fraction]0.4 %0.0 - 5.0 % [facility], IncMethemoglobin (BldA) [Mass fraction]0.6 %0.0 - 1.5 %[facility], IncDeoxyhemoglobin (BldA) [Mass fraction]1.0 %0.0 - 5.0 %[facility], IncMethemoglobin (BldA) [Mass fraction]0.9 %0.0 - 1.5 %[facility], IncDeoxyhemoglobin (BldA) [Mass fraction]2.7 %0.0 - 5.0 %[facility] IncMethemoglobin (BldA) [Mass fraction]0.6 %0.0 - 1.5 %[facility] Carboxyhemoglobin (BldV) [Mass fraction]on 61-36-5114Tswrjgudkjhsz (BldV) [Mass fraction]0.7 %0.0 - 1.5 %[facility], IncMethemoglobin (BldV) [Mass fraction][facility], IncCoox Panel, Arterial Unsolicited on 92-93-0071Tgdhujugjjvsxtlqv (BldA) [Mass fraction]1.0 %[facility], IncCarboxyhemoglobin (BldA) [Mass fraction]0.7 %[facility], IncCarboxyhemoglobin (BldA) [Mass fraction]0.8 %[facility], IncCarboxyhemoglobin (BldA) [Mass fraction]0.7 %[facility], IncCarboxyhemoglobin (BldA) [Mass fraction]0.8 %[facility], IncCarboxyhemoglobin (BldA) [Mass fraction]0.5 %[facility], IncCarboxyhemoglobin (BldA) [Mass fraction]1.1 %[facility], IncCoox Panel, Venous Unsolicitedon 09-60-7632Jojstpimhnwbmbbyy (BldV) [Mass fraction]0.9 %[facility], IncCarboxyhemoglobin (BldV) [Mass fraction][facility], IncFibrinogenon 05-08-2023 Fibrinogen Coag (PPP) [Mass/Vol]383 mg/dL200 - 400 mg/dLUnMercy Health Kings Mills HospitalFibrinogen Coag (PPP) [Mass/Vol]on 84-33-7545Imxmjuzardaeds and review of laboratory resultsNormalUniGrant HospitalGas and Carbon monoxide and Electrolytes panel (BldA)on 36-12-2369Ozfju gap 4 (BldA) [Moles/Vol]13[facility], IncBase excess Calc (Bld) [Moles/Vol] 0.0 mmol/L-2.0 - 3.0 mmol/[facility] HospitalCalcium.ionized (BldA) [Moles/Vol]1.17 mmol/L1.10 - 1.33 mmol/[facility] Chloride (BldA) [Moles/Vol]108 mmol/LHigh98 - 107 mmol/[facility] HospitalCO2 (Bld) [Partial pressure]28 mm[Hg]Corey HospitalGlucose [Mass/Vol]161 mg/eWCxbh54 - 99 mg/dLSelect Medical Specialty [facility], IncHCO3 (Bld) [Moles/Vol]22.3 mmol/L22.0 - 26.0 mmol/[facility] HospitalHematocrit Est (Bld) [Volume fraction]31.0 %Low41.0 - 52.0 % [facility], IncHemoglobin (Bld) [Mass/Vol]10.3 g/dLLow13.5 - 17.5 g/dLUnMercy Health Kings Mills HospitalInterpretation and review of laboratory resultsAbnoSelect Medical TriHealth Rehabilitation HospitalLactate (BldA) [Moles/Vol]2.1 mmol/LHigh0.4 - 2.0 mmol/[facility] HospitalOxygen (Bld) [Partial pressure]71 mm[Hg][facility] HospitalUnMer[facility] Health [facility] Hospital Oxyhemoglobin (BldA) [Mass fraction]93.1 %Low94.0 - 98.0 %[facility], IncpH (Bld)7.51 [pH]High7.38 - 7.42 [facility] Potassium (BldA) [Moles/Vol]3.5 mmol/L3.5 - 5.3 mmol/[facility] HospitalSodium (BldA) [Moles/Vol]140 mmol/L136 - 145 mmol/[facility] HospitalUnMercy Health Kings Mills HospitalAnion gap 4 (BldA) [Moles/Vol]14 [facility], IncBase excess Calc (Bld) [Moles/Vol]-1.1000 mmol/L-2.0 - 3.0 mmol/[facility] HospitalCalcium.ionized (BldA) [Moles/Vol]1.14 mmol/L1.10 - 1.33 mmol/[facility] Chloride (BldA) [Moles/Vol]108 mmol/LHigh98 - 107 mmol/[facility] HospitalCO2 (Bld) [Partial pressure]27 mm[Hg][facility] HospitalGlucose [Mass/Vol]160 mg/kDRdpq90 - 99 mg/dLSelect [facility] Specialty [facility], IncHCO3 (Bld) [Moles/Vol]21.1 mmol/LLow22.0 - 26.0 mmol/[facility] HospitalHematocrit Est (Bld) [Volume fraction]35.0 %Low41.0 - 52.0 %[facility], IncHemoglobin (Bld) [Mass/Vol]11.5 g/dLLow13.5 - 17.5 g/dLSelect [facility]ty [facility], IncInterpretation and review of laboratory resultsAbnormalUniGrant HospitalLactate (BldA) [Moles/Vol]1.9 mmol/L0.4 - 2.0 mmol/[facility] HospitalOxygen (Bld) [Partial pressure]71 mm[Hg][facility] Oxyhemoglobin (BldA) [Mass fraction]93.1 %Low94.0 - 98.0 %[facility], IncpH (Bld)7.50 [pH]High7.38 - 7.42 [facility] Potassium (BldA) [Moles/Vol]3.8 mmol/L3.5 - 5.3 mmol/[facility] HospitalSodium (BldA) [Moles/Vol]139 mmol/L136 - 145 mmol/[facility] HospitalUnMercy Health Kings Mills HospitalAnion gap 4 (BldA) [Moles/Vol]5Low [facility], IncBase excess Calc (Bld) [Moles/Vol]1.8 mmol/L- 2.0 - 3.0 mmol/[facility] HospitalCalcium.ionized (BldA) [Moles/Vol]1.18 mmol/L1.10 - 1.33 mmol/[facility] Chloride (BldA) [Moles/Vol]108 mmol/LHigh98 - 107 mmol/[facility] HospitalCO2 (Bld) [Partial pressure]48 mm[Hg]HighSelect Medical Specialty [facility], IncGlucose [Mass/Vol]157 mg/qJHinq17 - 99 mg/dLSelect [facility] Specialty [facility], IncHCO3 (Bld) [Moles/Vol]27.7 mmol/LHigh22.0 - 26.0 mmol/[facility] HospitalHematocrit Est (Bld) [Volume fraction]36.0 %Low41.0 - 52.0 %[facility], IncInhaled oxygen jwhioldtxflxq170 %[facility], IncLactate (BldA) [Moles/Vol]1.3 mmol/L0.4 - 2.0 mmol/L [facility], IncOxygen (Bld) [Partial pressure]252 mm[Hg]High [facility], IncpH (Bld)7.37 [pH]Low7.38 - 7.42 pHUnMercy Health Kings Mills HospitalPotassium (BldA) [Moles/Vol]4.8 mmol/L3.5 - 5.3 mmol/L [facility], IncSodium (BldA) [Moles/Vol]136 mmol/L136 - 145 mmol/[facility] HospitalAni gap 4 (BldA) [Moles/Vol]10 [facility], IncBase excess Calc (Bld) [Moles/Vol]0.8 mmol/L- 2.0 - 3.0 mmol/[facility] HospitalCalcium.ionized (BldA) [Moles/Vol]1.10 mmol/L1.10 - 1.33 mmol/[facility] Chloride (BldA) [Moles/Vol]105 mmol/L98 - 107 mmol/[facility] HospitalCO2 (Bld) [Partial pressure]43 mm[Hg][facility] HospitalGlucose [Mass/Vol]194 mg/mIGorl71 - 99 mg/dLSelect Medical Specialty [facility], IncHCO3 (Bld) [Moles/Vol]26.0 mmol/L22.0 - 26.0 mmol/[facility] HospitalHematocrit Est (Bld) [Volume fraction]34.0 %Low41.0 - 52.0 % [facility], IncInhaled oxygen akjnsxbqgxchv82 %[facility], IncLactate (BldA) [Moles/Vol]1.7 mmol/L0.4 - 2.0 mmol/L [facility], IncOxygen (Bld) [Partial pressure]295 mm[Hg]High [facility], IncpH (Bld)7.39 [pH]7.38 - 7.42 pHUnMercy Health Kings Mills HospitalPotassium (BldA) [Moles/Vol]5.6 mmol/LHigh3.5 - 5.3 mmol/L [facility], IncSodium (BldA) [Moles/Vol]135 mmol/DQgw158 - 145 mmol/[facility] HospitalAnion gap 4 (BldA) [Moles/Vol]10 [facility], IncBase excess Calc (Bld) [Moles/Vol]1.3 mmol/L- 2.0 - 3.0 mmol/[facility] HospitalCalcium.ionized (BldA) [Moles/Vol]1.12 mmol/L1.10 - 1.33 mmol/[facility] Chloride (BldA) [Moles/Vol]104 mmol/L98 - 107 mmol/[facility] HospitalCO2 (Bld) [Partial pressure]44 mm[Hg][facility] HospitalGlucose [Mass/Vol]192 mg/mWLqpn64 - 99 mg/dLSelect Medical Specialty [facility], IncHCO3 (Bld) [Moles/Vol]26.6 mmol/LHigh22.0 - 26.0 mmol/LUnMercy Health Kings Mills HospitalHematocrit Est (Bld) [Volume fraction]35.0 %Low41.0 - 52.0 %[facility], IncInhaled oxygen wbewuvglqbmkq10 %[facility], IncLactate (BldA) [Moles/Vol]1.5 mmol/L0.4 - 2.0 mmol/L [facility], IncOxygen (Bld) [Partial pressure]223 mm[Hg]High [facility], IncpH (Bld)7.39 [pH]7.38 - 7.42 pHUnMercy Health Kings Mills HospitalPotassium (BldA) [Moles/Vol]4.8 mmol/L3.5 - 5.3 mmol/L [facility], IncSodium (BldA) [Moles/Vol]136 mmol/L136 - 145 mmol/[facility] HospitalAnion gap 4 (BldA) [Moles/Vol]8Low [facility], IncBase excess Calc (Bld) [Moles/Vol]3.2 mmol/L High-2.0 - 3.0 mmol/[facility] HospitalCalcium.ionized (BldA) [Moles/Vol]1.07 mmol/LLow1.10 - 1.33 mmol/[facility] Chloride (BldA) [Moles/Vol]104 mmol/L98 - 107 mmol/[facility] HospitalCO2 (Bld) [Partial pressure]42 mm[Hg][facility] Glucose [Mass/Vol]207 mg/gLKery88 - 99 mg/dLUnMercy Health [facility] Hospital HCO3 (Bld) [Moles/Vol]27.9 mmol/LHigh22.0 - 26.0 mmol/[facility] HospitalHematocri Est (Bld) [Volume fraction]35.0 %Low41.0 - 52.0 %[facility], IncInhaled oxygen ruqqrstmvbxur62 %[facility], IncLactate (BldA) [Moles/Vol]1.4 mmol/L0.4 - 2.0 mmol/[facility] HospitalOxygen (Bld) [Partial pressure]268 mm[Hg]HighUnMercy Health Kings Mills HospitalpH (Bld)7.43 [pH]High7.38 - 7.42 pHUnMercy Health Kings Mills HospitalPotassium (BldA) [Moles/Vol]4.5 mmol/L3.5 - 5.3 mmol/[facility] HospitalSodium (BldA) [Moles/Vol]135 mmol/RGjy137 - 145 mmol/L [facility], IncAni gap 4 (BldA) [Moles/Vol]9Corey HospitalBase excess Calc (Bld) [Moles/Vol]0.0 mmol/L-2.0 - 3.0 mmol/[facility] HospitalCalcium.ionized (BldA) [Moles/Vol]1.13 mmol/L1.10 - 1.33 mmol/[facility] HospitalChloride (BldA) [Moles/Vol]102 mmol/L98 - 107 mmol/[facility] HospitalCO2 (Bld) [Partial pressure]49 mm[Hg][facility] HospitalGlucose [Mass/Vol]258 mg/sHCzoa11 - 99 mg/dLSelect Medical Specialty [facility], IncHCO3 (Bld) [Moles/Vol]26.4 mmol/LHigh22.0 - 26.0 mmol/[facility] Hematocrit Est (Bld) [Volume fraction]41.0 %41.0 - 52.0 %[facility], IncInhaled oxygen xjtguvgbiboyg692 %[facility] Lactate (BldA) [Moles/Vol]1.0 mmol/L0.4 - 2.0 mmol/[facility] HospitalOxygen (Bld) [Partial pressure]385 mm[Hg][facility] HospitalpH (Bld)7.34 [pH]Low7.38 - 7.42 [facility] Potassium (BldA) [Moles/Vol]3.8 mmol/L3.5 - 5.3 mmol/[facility] HospitalSodium (BldA) [Moles/Vol]134 mmol/VKwa694 - 145 mmol/[facility] HospitalAni gap 4 (BldA) [Moles/Vol]6LowSelect Medical [facility], IncBase excess Calc (Bld) [Moles/Vol]1.5 mmol/L-2.0 - 3.0 mmol/[facility] HospitalCalcium.ionized (BldA) [Moles/Vol]1.12 mmol/L1.10 - 1.33 mmol/[facility] HospitalChloride (BldA) [Moles/Vol]104 mmol/L98 - 107 mmol/[facility] HospitalCO2 (Bld) [Partial pressure]46 mm[Hg][facility] HospitalGlucose [Mass/Vol]238 mg/sOAkpy60 - 99 mg/dLSelect Medical [facility], IncHCO3 (Bld) [Moles/Vol]27.2 mmol/LHigh 22.0 - 26.0 mmol/[facility] HospitalHematocrit Est (Bld) [Volume fraction]41.0 %41.0 - 52.0 %[facility], IncInhaled oxygen bbiqrkucfzxze652 %[facility], IncInterpretation and review of laboratory resultsAbnormalUniGrant HospitalLactate (BldA) [Moles/Vol]0.8 mmol/L0.4 - 2.0 mmol/[facility] HospitalOxygen (Bld) [Partial pressure]181 mm[Hg][facility] HospitalpH (Bld) 7.38 [pH]7.38 - 7.42 pHSelect [facility], IncPotassium (BldA) [Moles/Vol]3.9 mmol/L3.5 - 5.3 mmol/[facility] HospitalSodium (BldA) [Moles/Vol]133 mmol/DYfb776 - 145 mmol/[facility] Anion gap 4 (BldA) [Moles/Vol][address] [place], [place] [address]Base excess Calc (Bld) [Moles/Vol]3.7 mmol/LHigh-2.0 - 3.0 mmol/[facility] HospitalCalcium.ionized (BldA) [Moles/Vol]1.19 mmol/L1.10 - 1.33 mmol/L [facility], IncChloride (BldA) [Moles/Vol]103 mmol/L98 - 107 mmol/[facility] HospitalCO2 (Bld) [Partial pressure]39 mm[Hg] [facility], IncGlucose [Mass/Vol]214 mg/yOJdgm38 - 99 mg/dL [facility], IncHCO3 (Bld) [Moles/Vol]27.7 mmol/LHigh22.0 - 26.0 mmol/[facility] HospitalHematomimbres memorial hospital Est (Bld) [Volume fraction]44.0 %41.0 - 52.0 %[facility], IncInhaled oxygen jopndzctaeygq24 %[facility], IncInterpretation and review of laboratory resultsAbnormalUniGrant HospitalLactate (BldA) [Moles/Vol]1.1 mmol/L0.4 - 2.0 mmol/[facility] HospitalOxygen (Bld) [Partial pressure]80 mm[Hg][facility] HospitalpH (Bld) 7.46 [pH]High7.38 - 7.42 pHSelect [facility], IncPotassium (BldA) [Moles/Vol]4.2 mmol/L3.5 - 5.3 mmol/[facility] HospitalSodium (BldA) [Moles/Vol]136 mmol/L136 - 145 mmol/[facility] Anion gap 4 (BldA) [Moles/Vol]11[facility], IncBase excess Calc (Bld) [Moles/Vol]0.1 mmol/L-2.0 - 3.0 mmol/[facility] HospitalCalcium.ionized (BldA) [Moles/Vol]1.17 mmol/L1.10 - 1.33 mmol/L [facility], IncChloride (BldA) [Moles/Vol]109 mmol/LHigh98 - 107 mmol/[facility] HospitalCO2 (Bld) [Partial pressure]32 mm[Hg] [facility] HospitalGlucose [Mass/Vol]142 mg/pICuht91 - 99 mg/dL [facility], IncHCO3 (Bld) [Moles/Vol]23.3 mmol/L22.0 - 26.0 mmol/[facility] HospitalHematomimbres memorial hospital Est (Bld) [Volume fraction] 33.0 %Low41.0 - 52.0 %[facility], IncHemoglobin (Bld) [Mass/Vol]11.1 g/dLLow13.5 - 17.5 g/dLSelect [facility] Interpretation and review of laboratory resultsAbnoSelect Medical TriHealth Rehabilitation HospitalLactate (BldA) [Moles/Vol]1.2 mmol/L0.4 - 2.0 mmol/[facility] HospitalOxygen (Bld) [Partial pressure]70 mm[Hg]LowUnMercy Health Kings Mills HospitalOxyhemoglobin (BldA) [Mass fraction]94.0 %94.0 - 98.0 % [facility], IncpH (Bld)7.47 [pH]High7.38 - 7.42 [facility] HospitalPotassium (BldA) [Moles/Vol]4.3 mmol/L3.5 - 5.3 mmol/L [facility], IncSodium (BldA) [Moles/Vol]139 mmol/L136 - 145 mmol/[facility] HospitalUnMercy Health Kings Mills HospitalGas panel (BldMV)on [id number] excess Calc (BldMV) [Moles/Vol]0.3 mmol/L-2.0 - 3.0 mmol/[facility] HospitalCO2 (BldMV) [Partial pressure]33Low [facility], IncHCO3 (BldMV) [Moles/Vol]23.5 mmol/L22.0 - 26.0 mmol/[facility] HospitalInterpretation and review of laboratory resultsAbnoSelect Medical TriHealth Rehabilitation HospitalOxygen (BldMV) [Partial pressure]45UnMercy Health Kings Mills HospitalOxygen saturation in Mixed venous blood75 %45 - 75 %[facility], IncOxyhemoglobin (BldMV) [Mass fraction]73.6 %45.0 - 75.0 %[facility], IncpH (BldMV)7.46 pH High7.33 - 7.43 pHPike Community HospitalBase excess Calc (BldMV) [Moles/Vol]1.1 mmol/L-2.0 - 3.0 mmol/L [facility], IncCO2 (BldMV) [Partial pressure]37LowSelect Medical Specialty Hospital [facility], IncHCO3 (BldMV) [Moles/Vol]25.1 mmol/L22.0 - 26.0 mmol/L [facility], IncOxygen (BldMV) [Partial pressure]40UnMercy Health Kings Mills HospitalOxygen saturation in Mixed venous blood61 %45 - 75 % [facility], IncOxyhemoglobin (BldMV) [Mass fraction]60.6 %45.0 - 75.0 %[facility], IncpH (BldMV)7.44 pHHigh7.33 - 7.43 pH [facility], IncAnion gap 4 (BldMV) [Moles/Vol]11UnMercy Health Kings Mills HospitalBase excess Calc (BldMV) [Moles/Vol]0.4 mmol/L-2.0 - 3.0 mmol/[facility] HospitalCalcium.ionized (BldMV) [Moles/Vol]1.16 mmol/L1.10 - 1.33 mmol/[facility] HospitalChloride [Moles/Vol]109 mmol/LHigh98 - 107 mmol/[facility] HospitalCO2 (BldMV) [Partial pressure]37LowUnMercy Health Kings Mills HospitalGlucose [Mass/Vol]133 mg/uPDfps28 - 99 mg/dLUnMercy Health Kings Mills HospitalHCO3 (BldMV) [Moles/Vol]24.6 mmol/L 22.0 - 26.0 mmol/[facility] HospitalHematocrit Est (Bld) [Volume fraction]32.0 %Low41.0 - 52.0 %[facility], IncHemoglobin (Bld) [Mass/Vol]10.7 g/dLLow13.5 - 17.5 g/dLUnMercy Health Kings Mills Hospital Interpretation and review of laboratory resultsAbnormalUniversKindred HospitalLactate (BldMV) [Moles/Vol]1.1 mmol/L0.4 - 2.0 mmol/[facility] HospitalOxygen (BldMV) [Partial pressure]36UnMercy Health Kings Mills HospitalOxygen saturation in Mixed venous blood55 %45 - 75 %[facility], IncOxyhemoglobin (BldMV) [Mass fraction]53.9 %45.0 - 75.0 % [facility], IncpH (BldMV)7.43 pH7.33 - 7.43 pHUnMercy Health Kings Mills HospitalPotassium (BldMV) [Moles/Vol]4.2 mmol/L3.5 - 5.3 mmol/L [facility], IncSodium (BldMV) [Moles/Vol]140 mmol/L136 - 145 mmol/[facility] HospitalUnMercy Health Kings Mills HospitalGas panel (BldV)on [id number] gap 4 (BldV) [Moles/Vol]10.0 mmol/L10.0 - 25.0 mmol/[facility] HospitalBase excess Calc (BldV) [Moles/Vol]2.3 mmol/L-2.0 - 3.0 mmol/[facility] HospitalCalcium.ionized (BldV) [Moles/Vol]1.09 mmol/LLow1.10 - 1.33 mmol/[facility] Chloride (BldV) [Moles/Vol]104 mmol/L98 - 107 mmol/[facility] HospitalCO2 (BldV) [Partial pressure]49 mm[Hg][facility] Glucose [Mass/Vol]194 mg/bATctx98 - 99 mg/dLUnMercy Health Kings Mills Hospital HCO3 (Bld) [Moles/Vol]28.3 mmol/LHigh22.0 - 26.0 mmol/[facility] HospitalHematocrit Est (Bld) [Volume fraction]35.0 %Low41.0 - 52.0 %[facility], IncHemoglobin (Bld) [Mass/Vol]11.6 g/dLLow13.5 - 17.5 g/dL [facility], IncInhaled oxygen baxzdkypwpqzh56 %[facility], IncInterpretation and review of laboratory resultsAbnormal [facility], IncLactate (BldV) [Moles/Vol]1.4 mmol/L0.4 - 2.0 mmol/[facility] HospitalOxygen (BldV) [Partial pressure]46 mm[Hg] HighUnMercy Health Kings Mills HospitalOxygen saturation in Venous blood77 %High45 - 75 %[facility], IncOxyhemoglobin (BldV) [Mass fraction]76.0 %High45.0 - 75.0 %[facility], IncpH (BldV)7.37 [pH]7.33 - 7.43 pHUniversity Hospitals of ClevelandPotassium (BldV) [Moles/Vol]6.8 mmol/L Critically high3.5 - 5.3 mmol/[facility] HospitalSodium (BldV) [Moles/Vol]135 mmol/WMgz998 - 145 mmol/[facility] HospitalAni gap 4 (BldV) [Moles/Vol]9.0 mmol/LLow10.0 - 25.0 mmol/[facility] HospitalBase excess Calc (BldV) [Moles/Vol]1.9 mmol/L-2.0 - 3.0 mmol/L [facility], IncCalcium.ionized (BldV) [Moles/Vol]1.09 mmol/L Low1.10 - 1.33 mmol/[facility] HospitalChloride (BldV) [Moles/Vol]104 mmol/L98 - 107 mmol/[facility] HospitalCO2 (BldV) [Partial pressure]50 mm[Hg][facility], IncGlucose [Mass/Vol] 195 mg/aKKvhy70 - 99 mg/dLUnMercy Health Kings Mills HospitalHCO3 (Bld) [Moles/Vol]28.2 mmol/LHigh22.0 - 26.0 mmol/[facility] Hematocrit Est (Bld) [Volume fraction][facility] Hemoglobin (Bld) [Mass/Vol][facility], IncInhaled oxygen xzltusskjrsal29 %[facility], IncLactate (BldV) [Moles/Vol]1.4 mmol/L0.4 - 2.0 mmol/[facility] HospitalOxygen (BldV) [Partial pressure]45 mm[Hg][facility], IncOxygen saturation in Venous bloodUnMercy Health Kings Mills HospitalOxyhemoglobin (BldV) [Mass fraction] [facility], IncpH (BldV)7.36 [pH]7.33 - 7.43 pHUnMercy Health Kings Mills HospitalPotassium (BldV) [Moles/Vol]6.6 mmol/LCritically high3.5 - 5.3 mmol/[facility] HospitalSodium (BldV) [Moles/Vol]135 mmol/L Hvr181 - 145 mmol/[facility] HospitalAni gap 4 (BldV) [Moles/Vol]11.0 mmol/L10.0 - 25.0 mmol/[facility] HospitalBase excess Calc (BldV) [Moles/Vol]1.5 mmol/L-2.0 - 3.0 mmol/[facility] HospitalCalcium.ionized (BldV) [Moles/Vol]1.15 mmol/L1.10 - 1.33 mmol/L [facility], IncChloride (BldV) [Moles/Vol]107 mmol/L98 - 107 mmol/[facility] HospitalCO2 (BldV) [Partial pressure]39 mm[Hg]Low [facility], IncGlucose [Mass/Vol]135 mg/hEYjnf34 - 99 mg/dL [facility], IncHCO3 (Bld) [Moles/Vol]25.9 mmol/L22.0 - 26.0 mmol/[facility] HospitalHematocrit Est (Bld) [Volume fraction] 34.0 %Low41.0 - 52.0 %[facility], IncHemoglobin (Bld) [Mass/Vol]11.4 g/dLLow13.5 - 17.5 g/dLUnMercy Health Kings Mills Hospital Interpretation and review of laboratory resultsAbnormalUniGrant HospitalLactate (BldV) [Moles/Vol]1.7 mmol/L0.4 - 2.0 mmol/[facility] HospitalOxygen (BldV) [Partial pressure]42 mm[Hg][facility], IncOxygen saturation in Venous blood58 %45 - 75 %[facility], IncOxyhemoglobin (BldV) [Mass fraction]57.2 %45.0 - 75.0 % [facility], IncpH (BldV)7.43 [pH]7.33 - 7.43 pHUnMercy Health Kings Mills HospitalPotassium (BldV) [Moles/Vol]4.4 mmol/L3.5 - 5.3 mmol/L [facility], IncSodium (BldV) [Moles/Vol]139 mmol/L136 - 145 mmol/[facility] HospitalUnMercy Health Kings Mills HospitalGlucose Test strip manual (Bld) [Mass/Vol]on [id number] [Mass/Vol]175 mg/mNRacw00 - 99 mg/dLUnMercy Health Kings Mills HospitalInterpretation and review of laboratory resultsAbOhio State East HospitalGlucose [Mass/Vol]156 mg/dFKwyt34 - 99 mg/dLUnMercy Health Kings Mills HospitalInterpretation and review of laboratory resultsAbOhio State East HospitalGlucose [Mass/Vol]185 mg/lDQomq20 - 99 mg/dLUnMercy Health Kings [facility] HospitalInterpretation and review of laboratory resultsAbOhio State East HospitalGlucose [Mass/Vol]173 mg/zGTjtl03 - 99 mg/dLUnMercy Health Kings Mills HospitalInterpretation and review of laboratory resultsAbGrand Lake Joint Township District Memorial HospitalGlucose [Mass/Vol]148 mg/uYQify13 - 99 mg/dLUnMercy Health [facility] Hospital Interpretation and review of laboratory resultsAbOhio State East HospitalGlucose [Mass/Vol]146 mg/cEVdqt36 - 99 mg/dLUnMercy Health Kings Mills HospitalInterpretation and review of laboratory resultsAbOhio State East HospitalGlucose [Mass/Vol]117 mg/xHCrjt19 - 99 mg/dLUnMercy Health Kings [facility] HospitalInterpretation and review of laboratory resultsAbOhio State East HospitalLaboratory - Chemistry and Chemistry - challengeon [id number] (BldA) [Mass fraction]97.6 % 94.0 - 98.0 %[facility], IncOxyhemoglobin (BldA) [Mass fraction]98.2 %High94.0 - 98.0 %[facility], IncOxyhemoglobin (BldA) [Mass fraction]97.6 %94.0 - 98.0 %[facility] Oxyhemoglobin (BldA) [Mass fraction]98.5 %High94.0 - 98.0 %[facility], IncOxyhemoglobin (BldA) [Mass fraction]98.2 %High94.0 - 98.0 % [facility], IncOxyhemoglobin (BldA) [Mass fraction]97.6 %94.0 - 98.0 %[facility], IncOxyhemoglobin (BldA) [Mass fraction] 95.6 %94.0 - 98.0 %[facility], IncLaboratory - Hematology and Cell countson [id number] (Bld) [Mass/Vol]11.9 g/dLLow13.5 - 17.5 g/dL [facility], IncHemoglobin (Bld) [Mass/Vol]11.3 g/dLLow13.5 - 17.5 g/dLUnMercy Health Kings Mills HospitalHemoglobin (Bld) [Mass/Vol]11.7 g/dL Low13.5 - 17.5 g/dLUnMercy Health Kings Mills HospitalHemoglobin (Bld) [Mass/Vol] 11.5 g/dLLow13.5 - 17.5 g/dLUnMercy Health Kings Mills HospitalHemoglobin (Bld) [Mass/Vol]13.5 g/dL13.5 - 17.5 g/dLUnMercy Health Kings Mills HospitalHemoglobin (Bld) [Mass/Vol]13.8 g/dL13.5 - 17.5 g/dLUnMercy Health [facility] Hospital Hemoglobin (Bld) [Mass/Vol]14.7 g/dL13.5 - 17.5 g/dLUnMercy Health Kings Mills HospitalMagnesiumon [id number] [Mass/Vol]2.47 mg/dLHigh1.60 - 2.40 mg/dLSelect [facility], IncMagnesium [Mass/Vol]2.32 mg/dL1.60 - 2.40 mg/dLUnMercy Health Kings Mills HospitalMagnesium [Mass/Vol]on 05-08-2023 Interpretation and review of laboratory resultsNormalUniGrant HospitalNo Panel Informationon [id number] and review of laboratory resultsAbnoCoshocton Regional Medical CenterInterpretation and review of laboratory resultsAbOhio State East HospitalInterpretation and review of laboratory resultsAbOhio State East HospitalInterpretation and review of laboratory resultsAbWood County HospitalUnMercy Health [facility] Mills HospitalUnMercy Health [facility] HospitalInterpretation and review of laboratory resultsAbWood County HospitalUnMercy Health [facility] HospitalInterpretation and review of laboratory resultsAbWooster Community HospitalInterpretation and review of laboratory results AbnormalUnMercy Health Kings Mills HospitalUnTuscarawas HospitalUnMercy Health [facility] HospitalUnMercy Health [facility] HospitalUnMercy Health [facility] HospitalPT and aPTT panel Coag (PPP)on [phone] Coag (PPP) [Time]27 [facility] HospitalINR Coag (PPP) [Relative time]1.2 {INR}High0.9 - 1.1[facility], IncInterpretation and review of laboratory resultsAbVeterans Health AdministrationPT Coag (PPP) [Time]13.5 [facility] CenterUnMercy Health Kings Mills HospitalPeripheral Blockon 05-08-2023 [facility] Work Phone: UnMercy Health [facility] Hospital Work Phone: Renal function 2000 panelon 08-01-5733Vrpckvg BCP dye [Mass/Vol]4.0 g/dL3.4 - 5.0 g/dLUnMercy Health Kings Mills HospitalAnion gap [Moles/Vol]19 mmol/L10 - 20 mmol/[facility] HospitalCalcium [Mass/Vol]9.2 mg/dL8.6 - 10.6 mg/dLUnMercy Health Kings Mills HospitalChloride [Moles/Vol]107 mmol/L98 - 107 mmol/[facility] HospitalCO2 [Moles/Vol]22 mmol/L21 - 32 mmol/[facility] HospitalCreatinine [Mass/Vol]1.25 mg/dL0.50 - 1.30 mg/dLSelect [facility], IncGFR/1.73 sq M.predicted MDRD (S/P/Bld) [Vol rate/Area]67 mL/min/{1.73_m2}- PINFUniGrant HospitalGlucose [Mass/Vol]155 mg/eNSkrx45 - 99 mg/dLSelect Medical [facility]ty [facility], IncPhosphate [Mass/Vol]2.9 mg/dL2.5 - 4.9 mg/dLUnMercy Health Kings Mills HospitalPotassium [Moles/Vol]3.8 mmol/L3.5 - 5.3 mmol/LUnMercy Health Kings Mills HospitalSodium [Moles/Vol]144 mmol/L136 - 145 mmol/[facility] HospitalUrea nitrogen [Mass/Vol]22 mg/dL6 - 23 mg/dLUnMercy Health Kings Mills HospitalAlbumin BCP dye [Mass/Vol]3.2 g/dLLow3.4 - 5.0 g/dL [facility] IncAnion gap [Moles/Vol]16 mmol/L10 - 20 mmol/L [facility], IncCalcium [Mass/Vol]8.6 mg/dL8.6 - 10.6 mg/dL [facility], IncChloride [Moles/Vol]109 mmol/LHigh98 - 107 mmol/[facility] HospitalCO2 [Moles/Vol]22 mmol/L21 - 32 mmol/L [facility], IncCreatinine [Mass/Vol]1.26 mg/dL0.50 - 1.30 mg/dLUnMercy Health Kings Mills HospitalGFR/1.73 sq M.predicted MDRD (S/P/Bld) [Vol rate/Area]66 mL/min/{1.73_m2}- PINFUniGrant HospitalGlucose [Mass/Vol]145 mg/aEFykp24 - 99 mg/dLUnMercy Health [facility] Hospital Interpretation and review of laboratory resultsAbnormalUniGrant HospitalPhosphate [Mass/Vol]4.1 mg/dL2.5 - 4.9 mg/dLUnMercy Health Kings [facility] HospitalPotassium [Moles/Vol]4.2 mmol/L3.5 - 5.3 mmol/[facility] HospitalSodium [Moles/Vol]143 mmol/L136 - 145 mmol/[facility] HospitalUrea nitrogen [Mass/Vol]18 mg/dL6 - 23 mg/dLUnMercy Health Kings Mills HospitalTEG Clot Global Profile Unsolicitedon [id number] angle TEG (Bld) [Angle]66.0 deg63.0 - 78.0 degUnMercy Health Kings Mills HospitalClot formation TEG (Bld) [Time]2.1 min0.8 - 2.1 minUnMercy Health Kings Mills HospitalClotting time after addition of heparinase TEG (Bld)5.7 min4.3 - 8.3 minUnMercy Health Kings Mills HospitalClotting time TEG (Bld)5.7 min4.6 - 9.1 minSelect [facility], IncFLEV376 mg/dL278 - 581 mg/dLSelect Medical Specialty Hospital [facility], IncMaxiredell memorial hospital clot firmness TEG (Bld) [Length]58.0 mm52.0 - 69.0 mmUnMercy Health Kings Mills HospitalMaxiredell memorial hospital clot firmness TEG (Bld) [Length]61.0 mm52.0 - 70.0 mmUnMercy Health Kings Mills HospitalMaxiredell memorial hospital clot firmness TEG (Bld) [Length] 21.0 mm15.0 - 32.0 mmSelect [facility]ty [facility], IncTest Commentpost protamine [facility], IncUnMercy Health Kings Mills HospitalXR Abdomen Single viewon [id number] Study observation (narrative)[facility] Work Phone: XR Chest Single viewon [id number] Study observation (narrative)[facility] Work Phone: uh [facility] Work Phone: UnMer[facility] Work Phone: uh [facility] Work Phone: [phone] Health [facility] Work Phone: [phone] Study observation (narrative)[facility] Work Phone: Radiology Study observation (narrative)[facility] Work Phone: anesthesia Intraoperative Transesophageal Echocardiogramon [id number] Clinic Union Hospital Work Phone: anesthesia Intraoperative Transesophageal EchocardiogramOrdered By: Cameron Rodas on [id number] Health Kings Mills Hospital Work Phone: CBC panel Auto (Bld)on 30-55-2153Aerildcggss distribution width (RBC) [Ratio]13.4 %11.5 - 14.5 %[facility], IncHematocrit (Bld) [Volume fraction]35.0 %Low41.0 - 52.0 %[facility], IncHemoglobin (Bld) [Mass/Vol]11.7 g/dLLow13.5 - 17.5 g/dL [facility], IncInterpretation and review of laboratory results AbnormalMercy Health Anderson HospitalH (RBC) [Entitic mass]31.2 pg26.0 - 34.0 pgUnMercy Health Kings Mills HospitalMCHC (RBC) [Mass/Vol]33.4 g/dL32.0 - 36.0 g/dLUnMercy Health Kings Mills HospitalMCV (RBC) [Entitic vol]93 fL80 - 100 fLUniGrant HospitalNucleated RBC/100 WBC (Bld) [Ratio]0.0 % [facility], IncPlatelet mean volume (Bld) [Entitic vol]10.7 fL 7.5 - 11.5 [facility] Medical CenterPlatelets (Bld) [#/Vol]145 10*3/uL [facility] HospitalRBC (Bld) [#/Vol]3.75 10*6/uLLowSelect Medical Specialty Hospital [facility], IncWBC (Bld) [#/Vol]13.7 10*3/uLMercer County Community HospitalUnMercy Health Kings [facility] HospitalGas and Carbon monoxide and Electrolytes panel (BldA)on [id number] gap 4 (BldA) [Moles/Vol]14[facility], IncBase excess Calc (Bld) [Moles/Vol]-0.7000 mmol/L-2.0 - 3.0 mmol/[facility] HospitalCalcium.ionized (BldA) [Moles/Vol] 1.20 mmol/L1.10 - 1.33 mmol/[facility] HospitalChloride (BldA) [Moles/Vol]106 mmol/L98 - 107 mmol/[facility] HospitalCO2 (Bld) [Partial pressure]36 mm[Hg][facility] HospitalGlucose [Mass/Vol]138 mg/nGJivy67 - 99 mg/dLSelect Medical Specialty [facility], IncHCO3 (Bld) [Moles/Vol]23.4 mmol/L22.0 - 26.0 mmol/[facility] Hematocrit Est (Bld) [Volume fraction]38.0 %Low41.0 - 52.0 %[facility], IncHemoglobin (Bld) [Mass/Vol]12.7 g/dLLow13.5 - 17.5 g/dLUnMercy Health Kings Mills HospitalInterpretation and review of laboratory resultsAbnormal [facility], IncLactate (BldA) [Moles/Vol]1.6 mmol/L0.4 - 2.0 mmol/[facility] HospitalOxygen (Bld) [Partial pressure]72 mm[Hg] LowSelect Medical [facility]ty [facility], IncOxyhemoglobin (BldA) [Mass fraction]92.6 % Low94.0 - 98.0 %[facility], IncpH (Bld)7.42 [pH]7.38 - 7.42 pH [facility], IncPotassium (BldA) [Moles/Vol]4.7 mmol/L3.5 - 5.3 mmol/[facility] HospitalSodium (BldA) [Moles/Vol]139 mmol/L136 - 145 mmol/[facility] HospitalUnMercy Health [facility] Hospital Calcium.ionized (BldA) [Moles/Vol]1.30 mmol/L1.10 - 1.33 mmol/[facility] HospitalChloride (BldA) [Moles/Vol]106 mmol/L98 - 107 mmol/L [facility], IncCO2 (Bld) [Partial pressure]43 mm[Hg]High [facility], IncGlucose [Mass/Vol]152 mg/oXGigl04 - 99 mg/dL [facility], IncHCO3 (Bld) [Moles/Vol]25.4 mmol/L22.0 - 26.0 mmol/[facility] HospitalHematocrit Est (Bld) [Volume fraction] 29.0 %Low41.0 - 52.0 %[facility], IncLactate (BldA) [Moles/Vol]2.3 mmol/LHigh0.4 - 2.0 mmol/[facility] HospitalOxygen (Bld) [Partial pressure]105 mm[Hg]HighSelect [facility], Inc Oxyhemoglobin (BldA) [Mass fraction]96.9 %94.0 - 98.0 %[facility], IncpH (Bld)7.38 [pH]7.38 - 7.42 pHUnMercy Health Kings Mills Hospital Potassium (BldA) [Moles/Vol]5.5 mmol/LHigh3.5 - 5.3 mmol/[facility] HospitalSodium (BldA) [Moles/Vol]136 mmol/L136 - 145 mmol/[facility] HospitalLaboratory - Hematology and Cell countson 05-07-2023 Hemoglobin (Bld) [Mass/Vol]9.5 g/dLLow13.5 - 17.5 g/dLUnMercy Health Kings Mills HospitalMagnesiumon 33-97-0986Iqzfyijmf [Mass/Vol]2.58 mg/dLHigh1.60 - 2.40 mg/dLUnMercy Health Kings Mills HospitalNo Panel Informationon 05-07-2023 Interpretation and review of laboratory resultsAbnormalUniversKindred HospitalUnMercy Health Kings Mills HospitalRenal function 2000 panelon 05-07-2023 Albumin BCP dye [Mass/Vol]3.5 g/dL3.4 - 5.0 g/dLUnMercy Health Kings Mills HospitalAnion gap [Moles/Vol]17 mmol/L10 - 20 mmol/[facility] HospitalCalcium [Mass/Vol]8.9 mg/dL8.6 - 10.6 mg/dLUnMercy Health Kings Mills HospitalChloride [Moles/Vol]107 mmol/L98 - 107 mmol/[facility] HospitalCO2 [Moles/Vol]22 mmol/L21 - 32 mmol/[facility] Creatinine [Mass/Vol]1.24 mg/dL0.50 - 1.30 mg/dLSelect [facility], IncGFR/1.73 sq M.predicted MDRD (S/P/Bld) [Vol rate/Area]67 mL/min/{1.73_m2}- PINFUniGrant HospitalGlucose [Mass/Vol]141 mg/kSTxtu82 - 99 mg/dLSelect [facility], IncPhosphate [Mass/Vol]4.2 mg/dL2.5 - 4.9 mg/dLUnMercy Health Kings Mills HospitalPotassium [Moles/Vol]4.5 mmol/L3.5 - 5.3 mmol/[facility] HospitalSodium [Moles/Vol]141 mmol/L136 - 145 mmol/[facility] HospitalUrea nitrogen [Mass/Vol] 15 mg/dL6 - 23 mg/dLUnMercy Health Kings Mills HospitalXR Chest Single viewon [id number] MMODALUH MMODALUnMercy Health Kings Mills Hospital Work Phone: Radiology Study observation (narrative)[facility] Work Phone: XR Chest Single viewOrdered By: Amadou Goldstein on [id number] Health Kings Mills Hospital Work Phone: CBC AND DIFFERENTIALon 05-04-2023% AUTOMATED IMMATURE GRANCancelWinona Community Memorial HospitalComment on above:Order Comment: TEST CBC AND DIFFERENTIAL WAS CANCELLED, 05/04/2023 14:24 DUPLICATE ORDER.Result Comment: Immature Granulocyte Count (IG) includes promyelocytes, myelocytes and metamyelocytes but does not include bands. Percent differential counts (%) should be interpreted in the context of the absolute cell counts (cells/L).Performed By: #### CBCDF #### [facility] [address] [place] [address]% BASOPHILCanceledNoHaxtun Hospital DistrictComment on above:Order Comment: TEST CBC AND DIFFERENTIAL WAS CANCELLED, 05/04/2023 14:24 DUPLICATE ORDER.Performed By: #### CBCDF #### [facility] [address] [place] [address]% EOSINOPHILCanceledNoHaxtun Hospital DistrictComment on above:Order Comment: TEST CBC AND DIFFERENTIAL WAS CANCELLED, 05/04/2023 14:24 DUPLICATE ORDER.Performed By: #### CBCDF #### [facility] [address] [place] [address]% LYMPHOCYTECanceledNoHaxtun Hospital DistrictComment on above:Order Comment: TEST CBC AND DIFFERENTIAL WAS CANCELLED, 05/04/2023 14:24 DUPLICATE ORDER.Performed By: #### CBCDF #### [facility] [address] [place] [address]% MONOCYTECancelWinona Community Memorial HospitalComment on above:Order Comment: TEST CBC AND DIFFERENTIAL WAS CANCELLED, 05/04/2023 14:24 DUPLICATE ORDER.Performed By: #### CBCDF #### [facility] [address] [place] [address]% NEUTROPHILCancelWinona Community Memorial HospitalComment on above:Order Comment: TEST CBC AND DIFFERENTIAL WAS CANCELLED, 05/04/2023 14:24 DUPLICATE ORDER.Performed By: #### CBCDF #### [facility] [address] [place], [place] [address]GJNHTXUNPzghuwbrLwtdsbKWEssentia HealthComment on above:Order Comment: TEST CBC AND DIFFERENTIAL WAS CANCELLED, 05/04/2023 14:24 DUPLICATE ORDER.Performed By: #### CBCDF #### [facility] [address] [place], [place] [address]FUPRUZWEYOGQIlqtiebeVsxtnqZZWinona Community Memorial HospitalComment on above:Order Comment: TEST CBC AND DIFFERENTIAL WAS CANCELLED, 05/04/2023 14:24 DUPLICATE ORDER.Performed By: #### CBCDF #### [facility] [address] [place], [place] [address]CQVAHDMQHOGvsdgnzyXoqqdeYNNew Ulm Medical CenterComment on above:Order Comment: TEST CBC AND DIFFERENTIAL WAS CANCELLED, 05/04/2023 14:24 DUPLICATE ORDER.Performed By: #### CBCDF #### [facility] [address] [place], [place] [address]PAXWbigmckgVouqpgYZEssentia HealthComment on above: Order Comment: TEST CBC AND DIFFERENTIAL WAS CANCELLED, 05/04/2023 14:24 DUPLICATE ORDER.Performed By: #### CBCDF #### [facility] [address] [place], [place] [address]FKXNarcgsqhOivgcsCREssentia HealthComment on above: Order Comment: TEST CBC AND DIFFERENTIAL WAS CANCELLED, 05/04/2023 14:24 DUPLICATE ORDER.Performed By: #### CBCDF #### [facility] [address] [place], [place] [address]DMKGJOMYDBDruninwvQrykbyMUWinona Community Memorial HospitalComment on above:Order Comment: TEST CBC AND DIFFERENTIAL WAS CANCELLED, 05/04/2023 14:24 DUPLICATE ORDER.Performed By: #### CBCDF #### [facility] [address] [place], [place] [address]MTSKPiepsmunBdcdzlWBNew Ulm Medical CenterComment on above:Order Comment: TEST CBC AND DIFFERENTIAL WAS CANCELLED, 05/04/2023 14:24 DUPLICATE ORDER.Performed By: #### CBCDF #### [facility] [address] [place], [place] [address]QLWRoiuemppQakxyeQUUnited Hospital District HospitalComchildren's hospital [facility] on above: Order Comment: TEST CBC AND DIFFERENTIAL WAS CANCELLED, 05/04/2023 14:24 DUPLICATE ORDER.Performed By: #### CBCDF #### [facility] [address] [place], [place] [address]JIVUNRLWLcxeamznOhshiaROWinona Community Memorial HospitalComment on above:Order Comment: TEST CBC AND DIFFERENTIAL WAS CANCELLED, 05/04/2023 14:24 DUPLICATE ORDER.Performed By: #### CBCDF #### [facility] [address] [place], [place] [address]KNIEIPERMKKntpwruwHcvsapHANew Ulm Medical CenterComment on above:Order Comment: TEST CBC AND DIFFERENTIAL WAS CANCELLED, 05/04/2023 14:24 DUPLICATE ORDER.Performed By: #### CBCDF #### [facility] [address] [place], [place] [address]JRDNJXIST RBCCanNew Ulm Medical CenterComment on above:Order Comment: TEST CBC AND DIFFERENTIAL WAS CANCELLED, 05/04/2023 14:24 DUPLICATE ORDER.Performed By: #### CBCDF #### [facility] [address] [place], [place] [address]BPMDbokkwwzUuxaieHEEssentia HealthComment on above: Order Comment: TEST CBC AND DIFFERENTIAL WAS CANCELLED, 05/04/2023 14:24 DUPLICATE ORDER.Performed By: #### CBCDF #### [facility] [address] [place], [place] [address]JTDYwoexptkNggtqeFDEssentia HealthComment on above: Order Comment: TEST CBC AND DIFFERENTIAL WAS CANCELLED, 05/04/2023 14:24 DUPLICATE ORDER.Performed By: #### CBCDF #### [facility] [address] [place], [place] [address]XUH-ZPZdzqnvrjLhmowsULNew Ulm Medical CenterComment on above:Order Comment: TEST CBC AND DIFFERENTIAL WAS CANCELLED, 05/04/2023 14:24 DUPLICATE ORDER.Performed By: #### CBCDF #### [facility] [address] [place], [place] [address]GPRNsiygvazEppxuiSNNew Ulm Medical CenterComment on above: Order Comment: TEST CBC AND DIFFERENTIAL WAS CANCELLED, 05/04/2023 14:24 DUPLICATE ORDER.Performed By: #### CBCDF #### [facility] [address] [place], [place] [address]DSFJNZOZWZUOA PANELon 11-42-2924VUCCDNEUrccrkysIiyyggIQNew Ulm Medical CenterComment on above:Order Comment: TEST COMPREHENSIVE PANEL WAS CANCELLED, 05/04/2023 14:24 DUPLICATE ORDER.Performed By: #### CMP #### [facility] [address] [place], [place] [address]QIHIBDOA PHOSPHATASECanNew Ulm Medical Center Comment on above:Order Comment: TEST COMPREHENSIVE PANEL WAS CANCELLED, 05/04/2023 14:24 DUPLICATE ORDER.Performed By: #### CMP #### [facility] [address] [place], [place] [address]IZMNseiowqzLnpfqnJIEssentia HealthComment on above: Order Comment: TEST COMPREHENSIVE PANEL WAS CANCELLED, 05/04/2023 14:24 DUPLICATE ORDER.Result Comment: Patients treated with Sulfasalazine may generate falsely decreased results for ALT.Performed By: #### CMP #### [facility] [address] [place], [place] [address]KRVZL GAPCanNew Ulm Medical CenterComment on above:Order Comment: TEST COMPREHENSIVE PANEL WAS CANCELLED, 05/04/2023 14:24 DUPLICATE ORDER.Performed By: #### CMP #### [facility] [address] [place], [place] [address]LJTIchmnfotEtmnvwXMWinona Community Memorial HospitalComment on above: Order Comment: TEST COMPREHENSIVE PANEL WAS CANCELLED, 05/04/2023 14:24 DUPLICATE ORDER.Performed By: #### CMP #### [facility] [address] [place], [place] [address]PQMNAZXHHFGOjmbaudqGjuzoqMLNew Ulm Medical CenterComment on above:Order Comment: TEST COMPREHENSIVE PANEL WAS CANCELLED, 05/04/2023 14:24 DUPLICATE ORDER.Performed By: #### CMP #### [facility] [address] [place], [place] [address]NVBRJJUUT,TOTALLakeview Hospital Comment on above:Order Comment: TEST COMPREHENSIVE PANEL WAS CANCELLED, 05/04/2023 14:24 DUPLICATE ORDER.Performed By: #### CMP #### [facility] [address] [place], [place] [address]ZSVBTRDCeubeffwHodzdoJKNew Ulm Medical CenterComment on above:Order Comment: TEST COMPREHENSIVE PANEL WAS CANCELLED, 05/04/2023 14:24 DUPLICATE ORDER.Performed By: #### CMP #### [facility] [address] [place], [place] [address]LQOSSWEHAbdwqfeqVgvrlxFMWinona Community Memorial HospitalComment on above:Order Comment: TEST COMPREHENSIVE PANEL WAS CANCELLED, 05/04/2023 14:24 DUPLICATE ORDER.Performed By: #### CMP #### [facility] [address] [place], [place] [address]XSJGCORGBVGgdizbzxHtegmbDLWinona Community Memorial HospitalComment on above:Order Comment: TEST COMPREHENSIVE PANEL WAS CANCELLED, 05/04/2023 14:24 DUPLICATE ORDER.Performed By: #### CMP #### [facility] [address] [place], [place] [address]yKNR FEMALECanNew Ulm Medical CenterComment on above:Order Comment: TEST COMPREHENSIVE PANEL WAS CANCELLED, 05/04/2023 14:24 DUPLICATE ORDER.Result Comment: CALCULATIONS OF ESTIMATED GFR ARE PERFORMED USING THE 2020 CKD-EPI STUDY REFIT EQUATION WITHOUT THE RACE VARIABLE FOR THE IDMS-TRACEABLE CREATININE METHODS. https://jasn.asnjournals.org/content/earlyASN.9970767789Csplhhgvg By: #### CMP #### [facility] [address] [place], [place] [address]lLCH MALECanNew Ulm Medical CenterComment on above:Order Comment: TEST COMPREHENSIVE PANEL WAS CANCELLED, 05/04/2023 14:24 DUPLICATE ORDER.Result Comment: CALCULATIONS OF ESTIMATED GFR ARE PERFORMED USING THE 2020 CKD-EPI STUDY REFIT EQUATION WITHOUT THE RACE VARIABLE FOR THE IDMS-TRACEABLE CREATININE METHODS. https://jasn.asnjournals.org/content/ASN.2586799958Kkxtjbmql By: #### CMP #### [facility] [address] [place], [place] [address]TDAPNYQTqbpshizRylikhSLNew Ulm Medical CenterComment on above:Order Comment: TEST COMPREHENSIVE PANEL WAS CANCELLED, 05/04/2023 14:24 DUPLICATE ORDER.Performed By: #### CMP #### [facility] [address] [place], [place] [address]STUHIOBFVAknstbrbQteeacDLNew Ulm Medical CenterComment on above:Order Comment: TEST COMPREHENSIVE PANEL WAS CANCELLED, 05/04/2023 14:24 DUPLICATE ORDER.Performed By: #### CMP #### [facility] [address] [place], [place] [address]DJSCQDCkvosxqjHvdifvVFWinona Community Memorial HospitalComment on above:Order Comment: TEST COMPREHENSIVE PANEL WAS CANCELLED, 05/04/2023 14:24 DUPLICATE ORDER.Performed By: #### CMP #### [facility] [address] [place], [place] [address]NYPBJ PROTEINCanNew Ulm Medical CenterComment on above:Order Comment: TEST COMPREHENSIVE PANEL WAS CANCELLED, 05/04/2023 14:24 DUPLICATE ORDER.Performed By: #### CMP #### [facility] [address] [place], [place] [address]SZFB NITROGENCancelWinona Community Memorial HospitalComment on above:Order Comment: TEST COMPREHENSIVE PANEL WAS CANCELLED, 05/04/2023 14:24 DUPLICATE ORDER.Performed By: #### CMP #### [facility] [address] [place], [place] [address]HUPcc 45-50-9495BTPUocdmpvkDwipyxKJSt. John's Hospital Comment on above:Order Comment: TEST LDH WAS CANCELLED, 05/04/2023 14:24 DUPLICATE ORDER.Performed By: #### HAUF #### [facility] [address] [place], [place] [address]ISXMYLWQBop 15-50-4139BFRQTLHKLWenjsrxxZyhwezIZ [facility] CenterComment on above:Order Comment: TEST MAGNESIUM WAS CANCELLED, 05/04/2023 14:24 DUPLICATE ORDER.Performed By: #### MG #### [facility] [address] [place], [place] [address]WC/INRon [id number] TIMECancelWinona Community Memorial HospitalComment on above:Order Comment: TEST PT/INR WAS CANCELLED, 05/04/2023 14:24 DUPLICATE ORDER.Result Comment: Note new reference range as of 01/22/2023 at 10:00am.Performed By: #### PTINR #### [facility] [address] [place], [place] [address]MM, INRCancelWinona Community Memorial HospitalComment on above:Order Comment: TEST PT/INR WAS CANCELLED, 05/04/2023 14:24 DUPLICATE ORDER.Performed By: #### PTINR #### [facility] [address] [place], [place] [address]Zywrikwnj Risk Screen - Adulton 41-28-6431Xfxkuobwc Risk Screen - AdultAllergies: Allergies: No Known Allergies: Patient Verification: New [...] AlertFor Ebola-like Symptoms: Isolate Patient and Notify Provider/Supervisor [employer] For Contact: Notify Provider/Supervisor [employer] Advance Directive: Advance Directive/DNRno Advance Directive Information Giveninformation requested from Social Work [place] Fall Screen: History of falling (immediate or previous)no (0) Secondary Diagnosisyes (15) Intravenous Therapy/ Heparin/Saline Lockyes (20) Gait/Transferringnormal/bedrest/wheelchair (0) Ambulatory Aidsnone/bedrest/nurse assist (0) Mental Statusoriented [...] instruction; group instruction Cultural Considerationsnone Developmental Considerationsnone Orthodox Considerationsnone Learning Assessment (Other Learner): Other learner availableno Depression Screen: During the past month, have you often been bothered by feeling down, depressed or hopelessno During the past month, have you often had little interest or pleasure in doing thingsno Have you had any thoughts of harming anyone elseno Levering Suicide: Risk Screen Not Applicable/Able to Answerable to be screened In the Past Month: Have you wished you were or could go to sleep and not wake upno In the Past Month: Have you had any actual thoughts of killing yourselfno Lifetime: Have you ever done, started to do, or prepared to do anything to end your lifeno Levering Suicide Risknegative Adult Nutrition Screen: Have you [...] Spiritual Screen: Are there any cultural, spiritual, temple practices/values/needs that are important for us to knowno CAGE: Is this an injured patient at a Trauma Center ([facility]/[place]): no Vaccinations: Vaccination - Influenza Vaccination Screen: Is it flu season (between and November 02)Yes Screening for identified contraindications to influenza vaccinationno contraindications identified Influenza vaccine indicatedyes Vaccination - Pneumonia Vaccination Screen: Patient has received a previous pneumonia vaccine:no/unknown... Immunocompetent persons with underlying chronic conditions or reside in prison care facilitiesnone of these conditions Persons with Functional or Anatomic Asplenianone of these conditions Immunocompromised Personsnone of these conditions Pneumonia vaccine NOT ind (more content not included)...NormalAtlantiCare Regional Medical Center, Mainland CampusCBCon 83-46-5769Hcwqjvyjduu distribution width (RBC) [Ratio]13.2 % Obtgib88.5 - 14.5[facility], Mainland CampusComment on above:Performed By: #### CBC #### [facility] [address] [place], [place] [address]Kmcyqsoapl (Bld) [Volume fraction]39.6 %Low41.0 - 52.0Atl[facility] Medical [facility], Mainland CampusComment on above:Performed By: #### CBC #### [facility] [address] [place], [place] [address]Lxeqbohhwi (Bld) [Mass/Vol]13.1 g/dLLow13.5 - 17.5[facility], Main[facility] CampusComment on above:Performed By: #### CBC #### [facility] [address] [place], [place] [address]YJZC (RBC) [Mass/Vol]33.1 g/oSRcuafm52.0 - 36.0[facility], Main[facility] CampusComment on above:Performed By: #### CBC #### [facility] [address] [place], [place] [address]WDD (RBC) [Entitic vol]93 bHLiknpu94 - 100Atl[facility], Mainland CampusComment on above:Performed By: #### CBC #### [facility] [address] [place], [place] [address]OSBTOCTYB RBC0.0 /100 WBCNormal0.0-0.0[facility], Main[facility] CampusComment on above:Performed By: #### CBC #### [facility] [address] [place], [place] [address]Wqcepwwqo (Bld) [#/Vol]301 10*3/hFXpkmnr480 - 450[facility], Mainland CampusComment on above:Performed By: #### CBC #### [facility] [address] [place], [place] [address]FWJ1.27 x10E12/LLow4.50 - 5.90[facility] Comment on above:Performed By: #### CBC #### [facility] [address] [place], [place] [address]ETA (Bld) [#/Vol]9.3 10*3/uLNormal4.4 - 11.3[facility], Main[facility] CampusComment on above:Performed By: #### CBC #### [facility] [address] [place], [place] [address]EFTPYCR ASSAY,UFHon 09-99-0274LVZVQVM ASSAY,UFH0.2 IU/mL [facility]'s HospitalComment on above:Result Comment: The therapeutic reference range for UFH may be either 0.3-0.6 IU/mL or 0.3-0.7 IU/mL based on the clinical setting for anticoagulant therapy and the associated nomogram used. For heparin dosing guidelines based on clinical scenario and Heparin Assay results, please refer to local Pharmacy and the [facility] Guidelines for Anticoagulation therapy available on the [facility] intranet at: [email or web address]/[email or web address]_Guid elines_for_Anticoagu.aspxPerformed By: #### HAUF #### [facility] [address] [place], [place] [address]Exqgwif assay, UFHon [id number] unfractionated Chromogenic method Qn (PPP)0.2 {IU/mL}-[facility] 250 DO Work Phone: Comment on above:The therapeutic reference range for UFH may be either 0.3-0.6 IU/mL or 0.3-0.7 IU/mL based on the clinical setting for anticoagulant therapy and the associated nomogram used. For heparin dosing guidelines based on clinical scenario and Heparin Assay results, please refer to local Pharmacy and the [facility] Guidelines for Anticoagulation therapy available on the [facility] intranet at:[email or web address]:// [email or web address]/Pages/[facility]_Guidelines_for_A nticoagu.aspxLDHon 12-11-6259DAV427 U/LHigh84 - 246[facility] Comment on above:Performed By: #### HAUF #### [facility] [address] [place], [place] [address]Fvmkmdwkhz - Blood bankon 39-21-3027TIF group Nom (Bld)OMP- [facility] 250 DO Work Phone: Blood group antibody screen QlNegative-[facility] 250 DO Work Phone: Rh immune globulin screen (Bld) [Interp]Positive- [facility] 250 DO Work Phone: Laboratory - Chemistry and Chemistry - challengeon 07-08-5660LAL [Catalytic activity/Vol]603 U/Labove high ziajxrrlm10 - 246MPWestern [facility] 250 DO Work Phone: Laboratory - Hematology and Cell countson 05-03-2023 Erythrocyte distribution width (RBC) [Ratio]13.2 %See [facility] [place] 250 DO Work Phone: Comment on above:Reference Range: 11.5 - 14.5 Hematocrit (Bld) [Volume fraction]39.6 %below low thresholdSee [facility]-[place] 250 DO Work Phone: Comment on above:Reference Range: 41.0 - 52.0 Hemoglobin (Bld) [Mass/Vol]13.1 g/dLbelow low thresholdSee [facility] Elena-[place] 250 DO Work Phone: Comment on above:Reference Range: 13.5 - 17.5MCHC (RBC) [Mass/Vol]33.1 g/dLSee [facility]-[place] 250 DO Work Phone: Comment on above:Reference Range: 32.0 - 36.0MCV (RBC) [Entitic vol]93 fL80 - 100MP-[facility] 250 DO Work Phone: [phone] (Bld) [#/Vol]301 10*3/uL150 - 450MP-[facility] 250 DO Work Phone: RBC (Bld) [#/Vol]4.27 {x10E12/L}below low thresholdSee [facility]-[place] 250 DO Work Phone: Comment on above:Reference Range: 4.50 - 5.90WBC (Bld) [#/Vol]9.3 10*3/uL4.4 - 11.3MP-[facility] 250 DO Work Phone: MAGNESIUMon 31-39-3478Zxtpebqlr [Mass/Vol]2.05 mg/dL Normal1.60 - 2.40UH [facility] Ocean Medical CenterComment on above:Performed By: #### MG #### [facility] [address] [place], [place] [address]Lvuffueip, Serumon 40-41-4656Iqyiaotxu [Mass/Vol]2.05 mg/dL See BelowMP-[facility] 250 DO Work Phone: Comment on above:Reference Range: 1.60 - 2.40No Panel Informationon 30.0 {/100_WBC}0.0-0.0MP-[facility] 250 DO Work Phone: [phone]\S\539[address].6Critically high0.0-20.0MP-[facility] 250 DO Work Phone: Comment on above:Critical Result I_TnIHS_d:24803.6 Called to and read back by: ASHLEY HO at: 05/03/2023 15:57:17by:DCPERFORMED BY:[facility] [place], [place] [phone] MEDICAL DIRECTORANNIE NUNN M.D.Order Reconciliationon 14-00-6758Jpops ReconciliationPage 1 Admission Reconciliation Document Reconciliation Type: Admission requested on behalf of Anderson Martins (Resident) done by Anderson Martins ( (Resident)) Admission - Reconciliation: 03-May-2023 21:28 by: Anderson Martins ( (Resident)) Home MedicationsEnteredLast Dose TakenReconciled with current Order Reconciliation Comment/ Additional Information atenolol 50 mg oral tablet 1 tab(s) orally once a vyw28-Ucq-1544 Atenolol Tablet (TENORMIN)DOSE = 50 mg Oral Dailyatenolol 50 mg oral tablet continued as the inpatient order Atenolol atorvastatin 40 mg oral tablet 1 tab(s) orally once a kud20-Gsn-1591 Atorvastatin Tablet (LIPITOR)DOSE = 40 mg Oral Dailyatorvastatin 40 mg oral tablet continued as the inpatient order Atorvastatin CeleBREX 200 mg oral capsule 1 cap(s) orally once a mtf11-Txu-9539 Reviewed and Held DULoxetine 20 mg oral delayed release capsule 1 cap(s) orally once a day 03-May-2023 DULoxetine Delayed Release Capsule (CYMBALTA)DOSE = 20 mg Oral 2 Times a DayDULoxetine 20 mg oral delayed release capsule continued as the inpatient order DULoxetine omeprazole 40 milligram(s) orally once a hoa36-Gsq-2945 Pantoprazole Enteric Coated Tablet (PROTONIX)DOSE = 40 mg Oral Dailyomeprazole continued as the inpatient order Pantoprazole Percocet 2.5 mg-325 mg oral tablet 1 tab(s) orally every 6 truir86-Nbo-5919 Reviewed and Held Additional Current Orders Acetaminophen [...] Hours, PRN Pain - (more content not included)...NormalAtlantiCare Regional Medical Center, Mainland CampusPatient Profile - Adult v2on 77-71-8018Btbmeru Profile - Adult z2Bwlflfi: Initial Info: How to be AddressedRon Spoken Language PreferredEnglish Source of Informationpatient Stated Reason for Admissionchest pain, need surgery Wants Family/Rep Notified of Admissionyes, primary contact Notify PCPnotify PCP Informed of Patient Visiting Rightsyes Arrived Fromhospital Patient Belongingsremains with patient Patient Belongings Remaining with Patientclothing; cell phone/electronics Medications Brought to Hospitalno General Health: Weight in kg87.5 kilogram(s) Weight in yhz209.9 pound(s) Weight Methodactual (measured) Scale Typebed Height [...] Arrangementshouse Services Anticipated at Transitionnone Anticipated Transition Tohome Significant IndicatorsComplete Information Review: Allergies, Home Meds and Significant Events have been Reviewed and Verified with Patient/Familyyes ALLERGY, INTOLERANCE, ADVERSE EVENT: Allergies: No Known Allergies: Active Electronic Signatures: Eloisa Fonseca) (Signed 03-May-2023 19:52) Authored: Initial Info, General Health, [facility] Based Care, Substance, Health Mgmt, Relationship/Environ, Additional Information Last Updated: 03-May-2023 19:52 by Eloisa Fonseca)NormalAtlantiCare Regional Medical Center, Mainland CampusRENAL FUNCTION PANELon 71-06-3002Udforsk [Mass/Vol]3.9 g/dLNormal 3.4 - 5.0Atl[facility], Mainland CampusComment on above:Performed By: #### RENAL #### [facility] [address] [place], [place] [address]Jzebmgj [Mass/Vol]9.3 mg/dLNormal8.6 - 10.6Atl[facility], Mainland CampusComment on above:Performed By: #### RENAL #### [facility] [address] [place], [place] [address]Qigppbfjnm [Mass/Vol]0.96 mg/dLNormal0.50 - 1.30[facility], Mainland CampusComment on above:Performed By: #### RENAL #### [facility] [address] [place], [place] [address]kSJB MALE>90Normal>90Atl[facility] Medical Center, Mainland CampusComment on above:Result Comment: CALCULATIONS OF ESTIMATED GFR ARE PERFORMED USING THE 2020 CKD-EPI STUDY REFIT EQUATION WITHOUT THE RACE VARIABLE FOR THE IDMS-TRACEABLE CREATININE METHODS. https://jasn.asnjournals.org/content//ASN.5861732254Bagebamlg By: #### RENAL #### [facility] [address] [place], [place] [address]Ahhgybg [Mass/Vol]104 mg/nBFsrw82 - 99[facility], Mainland CampusComment on above:Performed By: #### RENAL #### [facility] [address] [place], [place] [address]Oeeafvxuy [Mass/Vol]3.5 mg/dLNormal2.5 - 4.9[facility], Mainland CampusComment on above:Result Comment: The performance characteristics of phosphorus testing in heparinized plasma have been validated by the individual laboratory site where testing is performed. Testing on heparinized plasma is not approved by the FDA; however, such approval is not necessary.Performed By: #### RENAL #### [facility] [address] [place], [place] [address]Tjap nitrogen [Mass/Vol]14 mg/dLNormal6 - 23[facility] CenterComment on above:Performed By: #### RENAL #### [facility] [address] [place], [place] [address]GKJ0 (Bld) [Moles/Vol]23 mmol/WPwtlli02 - 32[facility] CenterComment on above:Performed By: #### RENAL #### [facility] [address] [place], [place] [address]Vnjnpkdqtll 91-18-8315VQ Chest Single viewNormalMP-[facility] [address] DO Work Phone: Renal Function Panelon 98-96-5117Lmuqpaz BCP dye [Mass/Vol]3.9 g/dL3.4 - 5.0MP-[facility] [address] DO Work Phone: Anion gap [Moles/Vol]12 mmol/SMbwbqk43 - 20MP-[facility]-[place] [address] DO Work Phone: Comment on above:Performed By: #### RENAL #### [facility] [address] [place], [place] [address]Qlbicap [Mass/Vol]9.3 mg/dL8.6 - 10.6MP-[facility] [place] [address] DO Work Phone: Chloride [Moles/Vol]109 mmol/LHigh98 - 107MP-[facility] [facility] DO Work Phone: Comment on above:Performed By: #### RENAL #### [facility] [address] [place], [place] [address]BY8 [Moles/Vol]23 mmol/L21 - 32MP-[facility] [facility] DO Work Phone: Creatinine [Mass/Vol]0.96 mg/dLSee BelowMP-[facility] [facility] DO Work Phone: Comment on above:Reference Range: 0.50 - 1.30Glucose [Mass/Vol]104 mg/dLabove high nlichhofp57 - 99MP-[place] [address] DO Work Phone: Phosphate [Mass/Vol]3.5 mg/dL2.5 - 4.9MP-[place] [address] DO Work Phone: Comment on above:The performance characteristics of phosphorus testing in heparinized plasma have been validated by the individual laboratory site where testing is performed. Testing on heparinized plasma is not approved by the FDA; however, such approval is not necessary.Potassium [Moles/Vol]4.3 mmol/LNormal3.5 - 5.3MP-[place] [address] DO Work Phone: Comment on above:Performed By: #### RENAL #### [facility] [address] [place], [place] [address]Qkhjza [Moles/Vol]140 mmol/WBmvyei857 - 145MP-[place] [address] DO Work Phone: Comment on above:Performed By: #### RENAL #### [facility] [address] [place], [place] [address]Ywkj nitrogen [Mass/Vol]14 mg/dL6 - 23MP-[place] [address] DO Work Phone: Renal Function Panel>90>90MP-[place] [address] DO Work Phone: Comment on above:CALCULATIONS OF ESTIMATED GFR ARE PERFORMED USING THE 2020 CKD-EPI STUDY REFIT EQUATION WITHOUT THERACE VARIABLE FOR THE IDMS-TRACEABLE CREATININE METHODS.https://jasn.asnjournals.org/content//ASN.0387192781 STAPH/MRSA SCREENon 44-02-8519HVZGF/MRSA SCREENPATIENT: MORGAN LATHAM LOCATION: [facility] BILL#: [id number] : 63 AGE: SEX: M ORDERED BY: ANDERSON MARTINS SOURCE: ANTERIOR NARES COLLECTED: 05/03/23 21:00 ANTIBIOTICS AT ANGEL.: RECEIVED : 05/04/23 00:01 SITE: nares R E S U L T S STAPH/MRSA SCREEN FINAL 05/06/23 14:03 NO Staphylococcus aureus ISOLATED.NormalAtlantiCare Regional Medical Center, Mainland CampusComment on above:Performed By: #### UA #### [facility] [address] [place], [place] [address]ES CHEST 1 VIEWon 10-92-7294YV CHEST 1 VIEWMRN: [id number] Patient Name: MORGAN LATHAM STUDY: CHEST 1 VIEW; 05/03/2023 8:52 pm INDICATION: eval for balloon pump . COMPARISON: None. ACCESSION NUMBER(S): [id number] ORDERING CLINICIAN: ANDERSON MARTINS FINDINGS: AP radiograph [...] as stated. This study was interpreted at [facility], [place], [place]. Electronically signed by: Judith LEMONHaxtun Hospital District TROPONIN I, HIGH SENSITIVITYon 26-13-7146ULMSIBWO I, HIGH MTMRMJVKYFU68966 ng/L High0 - 53Atl[facility], Mainland CampusComment on above:Result Comment: . Less than 99th percentile of [...] performed using a different testing methodology at [facility] than at other [facility]. Direct result comparisons should only be made within the same method.Performed By: #### TRPHS #### [facility] [address] [place], [place] [address]Csxhqxnj I.cardiac panel High sensitivity ehhqxt59297 ng/L above high threshold0 - 53MP-[facility] [facility] DO Work Phone: Comment on above:.Less than 99th percentile of normal range cutoff-Female and children under [...] damage. . NOTE: Children less than 1 yearold may have higher baseline troponin levels and results should be interpreted in conjunction with the overall clinical context..NOTE: Troponin I testing is performed using a different testing methodo logy at [facility] than at other [facility]. Direct result comparisons should only be made within the same method.TYPE + SCREENon 92-19-8924XNX TYPEONoHaxtun Hospital DistrictComment on above:Performed By: #### HAUF #### [facility] [address] [place], [place] [address]MI TYPEPositiveNormKit Carson County Memorial HospitalComment on above:Performed By: #### HAUF #### [facility] [address] [place], [place] [address]Zdtcnmhz I.cardiac [Mass/volume] in Serum or Plasma by Detection limit <= 0.01 ng/Ordered By: Hetal Quick on 02-13-4076Aakiddqj I.cardiac DL <= 0.01 ng/mL [Mass/Vol]14809.9 pg/mL0.0-20.0German HospitalComment on above:Critical Result I_TnIHS_d:14365.9 Called to and read back by: TD MITCHELL at: 05/03/2023 18:01:13 by:[id number] MICROSCOPICon 59-00-3321MHR (U) [#/Vol]/uLAbnormal0-[address] [place], [place] [address]Comment on above:Performed By: #### HAUF #### [facility] [address] [place], [place] [address]SMK22 /HPFAbnormal[address] [place], [place] [address]Comment on above:Performed By: #### HAUF #### [facility] [address] [place], [place] [address]EQMTBFZLSBea 89-43-0275Wzbzbsmoui (U)HAZYNormalCLEARAtlantiCare Regional Medical Center, Mainland CampusComment on above:Performed By: #### UA #### [facility] [address] [place], [place] [address]Fmumcatnw Ql (U)NegativeNormalNEGATIVEAtlantiCare Regional Medical Center, Mainland CampusComment on above:Performed By: #### UA #### [facility] [address] [place], [place] [address]Hdguvywosh Ql (U)LARGE (3+)AbnormalNEGATIVEAtlantiCare Regional Medical Center, Mainland CampusComment on above:Performed By: #### UA #### [facility] [address] [place], [place] [address]Jbocsvk Ql (U)NegativeNormalNEGATIVEAtlantiCare Regional Medical Center, Mainland CampusComment on above:Performed By: #### UA #### [facility] [address] [place], [place] [address]Cthhzdp Ql (U)30 (1+)AbnormalNEGATIVEAtlantiCare Regional Medical Center, Mainland CampusComment on above:Performed By: #### UA #### [facility] [address] [place], [place] [address]Urdosiak gravity (U) [Rel density]1.292Ogkf1.005 - 1.035UH [facility] Medical CenterComment on above:Performed By: #### UA #### [facility] [address] [place], [place] [address]Qafyethcllop (U) [Mass/Vol]mg/dLNormal0.0 - 1.9[facility], Mainland CampusComment on above:Performed By: #### UA #### [facility] [address] [place], [place] [address]Nxgxcktulzjo 49-67-1353Mtwij (U)YELLOWNormalSTRAW,YELLOWMP- [facility] [address] DO Work Phone: Comment on above:Reference Range: STRAW,YELLOW Performed By: #### UA #### [facility] [address] [place], [place] [address]Ailtxgv Ql (U)NegativeNormalNEGATIVE-[facility]- [place] [address] DO Work Phone: Comment on above:Performed By: #### UA #### [facility] [address] [place], [place] [address]Lapcajd Ql (U)NegativeNormalNEGATIVEBethesda Hospital- [place] [address] DO Work Phone: Comment on above:Performed By: #### UA #### [facility] [address] [place], [place] [address]Xsmnybbss esterase Test strip Ql (U)NegativeNormalNEGATIVE- [facility]-[place] [address] DO Work Phone: Comment on above:Performed By: #### UA #### [facility] [address] [place], [place] [address]vX (U)5.0 [pH]Normal5.0 - 8.0[facility] [address] DO Work Phone: Comment on above:Performed By: #### UA #### [facility] [address] [place], [place] [address]Jtzxixn (U) [Mass/Vol]30 (1+)AbnormalNEGATIVEBethesda Hospital-[place] 250 DO Work Phone: RBC (U) [#/Vol]LARGE (3+)AbnormalNEGATIVE-[facility] Axeda DO Work Phone: Specific gravity (U) [Rel density]1.058 1above high thresholdSee Below-[facility] Axeda DO Work Phone: Comment on above:Reference Range: 1.005 - 1.035 UrinalysisNegativeNEGATIVE-[facility] Axeda DO Work Phone: Urinalysis<2.00.0 - 1.9MP-[facility] Ax[place] DO Work Phone: [phone]-Hltna [place] Axeda DO Work Phone: Urinalysis, Microscopicon 98-99-2811Jqauiagynz, Microscopic>174Ysudwxcu3-5QP-Gvrvt [place] Axeda DO Work Phone: Urinalysis, Dkceouzxltu73 {/HPF}Xgfqxljw9-5XT-Cdzma [place] Axeda DO Work Phone: Tobacco Screening.on 99-94-2786Cxxwu depression screening abatiwgrxnVgVB-[place] [address] Work Phone: Fall risk assessmenta) No falls within the last year SN-Zhtqbiz-Slqfzshx [place] [address] Work Phone: Tobacco use status CPHSa) BeaDB-Yznfziy-[place]crsozkc [place] [address] Work Phone: CNPNon 69-37-9122KOAUHkyzekxpa (MABLEN) MORGAN LATHAM ([id number]) 1965 M Date Time Provider Department 04/03/23 MOHINI HOOK During your visit today, we recorded the following information about you: Mohini Hook MD 04/03/2023 3:52 PM Signed Please Call patient if Nascentric note not read to review results/released to My Chart if tests completed at [facility]: Improved/ normal labs. Continue over the counter [...] Signed another message sent to pt via [employer] due to unsuccessful attempts reaching pt as well as pt reviewing last message from Dr Hook. postponed to make sure that pt reviews results pt is active on [employer] - last checked 04/03 Saumya Duval MA [...] 08/17/2022 Encounter Status:Closed by SAUMYA DUVAL on 04/05/23NoProMedica [facility] Panel Informationon 42-82-8148Ltwoaebov [facility] Maxillofacial w/o Contraston 84-04-5436LK Maxillofacial w/o ContrastExam Date/Time: 01/28/2023 17:10 EDT Reason for Exam: [...] Barron MD, V. Transcribed by: FREDY Technologist: CNKNKettering Health DaytonConsent for Treatmenton 91-70-0491Bzpvgkq for Treatment [id number]:127[facility] HospitalPhysician Orderon 35-82-6041Gxtyqdpop Order [id number]:127[facility] HospitalXR Shoulder - left 4 Viewson 02-18-2991IVYUXJTYUT: Mild osteoarthritis of the left shoulder. Calcific bursitis of the subacromial subdeltoid bursa. Supervisor Cooler Service: NATASHA Transcribe Date/Time: Dec 28 2022 1:41P Dictated by : VALERIE MATHIS MD This examination was interpreted and the report reviewed and electronically signed by: VALERIE MATHIS MD on Dec 28 2022 1:43PM [facility] DIVISION OF RADIOLOGY* * *Final Report* * * DATE OF [...] pain, unspecified chronicity TECHNIQUE: XR SHLDR 4V AP/TRDUI/LAT/OUTLET LT Laterality: LEFT Number of different views [...] bursa consistent with calcific bursitis. DIVISION OF RADIOLOGYProvider, [facility] - 12/28/2022 * * *Final Report* * * DATE OF EXAM: Dec 28 2022 1:13PM ALFONSO 5604 - XR SHLDR 4V AP/TRUDI/LAT/OUTLET LT [...] Calcific bursitis of the subacromial subdeltoid bursa. Supervisor Cooler Service: PSCB Transcribe Date/Time: Dec 28 2022 1:41P Dictated by : VALERIE MATHIS MD This examination was interpreted and the report reviewed and electronically signed by: VALERIE MATHIS MD on Dec 28 2022 1:43PM [facility] Mi[facility]burgRadiology Study observation (narrative)[facility] HospitalXR Shoulder - left 4 ViewsOrdered By: [facility] Provider on 51-25-2812Vvwpdhaqr Clinic VITAMIN B12on 33-31-8566Uorlvigpj (Vitamin B12) [Mass/Vol]504.0 pg/mLNormal 193.0-986.0The [facility] Ahuja Medical CenterComment on above:Performed By: #### VITB12, VITAD #### [facility] [address] [place] [address] Dr. Alexis SpannVITAMIN D 25 OHon 12-80-0709IOL D 25-OH45.4 ng/mLNormalThe [facility] Hospitals Ahuja Medical CenterComment on above:Performed By: #### VITB12, VITAD #### [facility] [address] [place] [address] Dr. Alexis Kennedy RANGESMAME Glenbeigh HospitalComment on above: Result Comment: <20 ng/mL Vit D deficient 20 - <30 ng/mL Vit D insufficient 30 - 100 ng/mL Vit D sufficient >100 ng/mL Potential ToxicityPerformed By: #### VITB12, VITAD #### [facility] [address] [place] [address] [address] Alexis SpannAlbumin [Mass/volume] in Serum or PlasmaOrdered By: Elsie Harper on 41-50-3148Rsjjezl [Mass/Vol]3.8 g/dL3.2-5.5FOhioHealth Pickerington Methodist Hospital Basophils Auto (Bld) [#/Vol]Ordered By: Elsie Harper on 74-52-3328Meeambtnf (Bld) [#/Vol]0.1 10*3/uL0.0-0.2FOhioHealth Pickerington Methodist HospitalBasophils/100 WBC Auto (Bld)Ordered By: Elsie Harper on 43-16-8848Wekvxacwn/100 WBC (Bld)1.2 % .German HospitalCreatinine and Glomerular filtration rate.predicted panel (S/P/Bld)Ordered By: Elsie Harper on 71-12-3746Livdyxqdvi [Mass/Vol]1.04 mg/dL0.64-1.27German HospitalEosinophils Auto (Bld) [#/Vol]Ordered By: Elsie Harper on 42-59-0302Ewrankptyta (Bld) [#/Vol]0.2 10*3/uL0.0-0.45German HospitalEosinophils/100 WBC Auto (Bld) Ordered By: Elsie Harper on 64-85-9623Mirxjolqqsf/100 WBC (Bld)2.9 %.German HospitalErythrocyte distribution width Auto (RBC) [Ratio]Ordered By: Elsie Harper on 31-50-2290Erbfdxytnak distribution width (RBC) [Ratio]13.5 % 12.0-14.8German HospitalEstimated glomerular filtration rate (GFR) non- AmericanOrdered By: Elsie Harper on 79-20-8720EGK/1.73 sq M.predicted among non-blacks MDRD (S/P/Bld) [Vol rate/Area]> 60 mL/MinGerman HospitalGlobulin Calc (S) [Mass/Vol]Ordered By: Elsie Harper on 95-88-1897Rgmbwxok (S) [Mass/Vol]2.3 g/dLGerman Hospital Hematocrit Auto (Bld) [Volume fraction]Ordered By: Elsie Harper on 09-20-2022 Hematocrit (Bld) [Volume fraction]41.9 %38.8-50.0German HospitalHemoglobin [Mass/volume] in BloodOrdered By: Elsie Harper on 09-20-2022 Hemoglobin (Bld) [Mass/Vol]13.8 g/dL13.0-17.0[facility] Leukocytes [#/volume] corrected for nucleated erythrocytes in Blood by Automated counOrdered By: Elsie Harper on 03-36-9595EWW corrected for nucl RBC Auto (Bld) [#/Vol]5.8 10*3/uL4.1-10.5FOhioHealth Pickerington Methodist HospitalLymphocytes Auto (Bld) [#/Vol]Ordered By: Elsie Harper on 79-34-6120Eqfvltqunqn (Bld) [#/Vol]1.5 10*3/uL1.00-4.8German HospitalLymphocytes/100 WBC Auto (Bld) Ordered By: Elsie Harper on 97-75-1660Thxoyhsrvvz/100 WBC (Bld)25.3 %.[facility] HospitalH Auto (RBC) [Entitic mass]Ordered By: Elsie Harper on 53-84-9746MUO (RBC) [Entitic mass]31.3 pg27.5-35.2FOhioHealth Pickerington Methodist HospitalMCHC Auto (RBC) [Mass/Vol]Ordered By: Elsie Harper on 57-46-6442RFHS (RBC) [Mass/Vol]33.0 g/dL32.5-35.6FOhioHealth Pickerington Methodist HospitalMCV Auto (RBC) [Entitic vol]Ordered By: Elsie Harper on 78-95-1940ZTX (RBC) [Entitic vol]94.8 fL83.5-101German HospitalMonocytes Auto (Bld) [#/Vol]Ordered By: Elsie Harper on 18-22-9460Ebjdffbmw (Bld) [#/Vol]0.7 10*3/uL0.0-0.8German HospitalMonocytes/100 WBC Auto (Bld)Ordered By: Elsie Harper on 02-47-5628Lyhqivplp/100 WBC (Bld)12.5 %.[facility] Neutrophils Auto (Bld) [#/Vol]Ordered By: Elsie Harper on 73-25-9958Ucrfxtyqost (Bld) [#/Vol]3.3 10*3/uL1.8-7.7FOhioHealth Pickerington Methodist HospitalNeutrophils/100 WBC Auto (Bld)Ordered By: Elsie Harper on 90-34-5211Fvshynzmgrd/100 WBC (Bld) 58.1 %.German HospitalNo Panel InformationOrdered By: Elsie Harper on 39-98-8800Szqwzlvzo GFR ()> 60 mL/MinGerman HospitalComment on above:GFR estimated reference range: According to KDOQI guidelines, <60 ml/min/1.73m2 is sufficient todiagnose a patient with chronic kidney disease.Pharmacy Creatinine Clearance (ChemN/[facility] Memorial HospitalNucleated erythrocytes [Presence] in Blood by Automated count Ordered By: Elsie Harper on 84-40-4085Krslmmmzf RBC Auto Ql (Bld)0.1 /100{WBC} 0-0.5FOhioHealth Pickerington Methodist HospitalPlatelet mean volume Auto (Bld) [Entitic vol]Ordered By: Elsie Harper on 55-09-2906Wededwrq mean volume (Bld) [Entitic vol]7.8 fL6.6-10.1FOhioHealth Pickerington Methodist HospitalPlatelets Auto (Bld) [#/Vol] Ordered By: Elsie Harper on 59-65-1922Aonwdfgcj (Bld) [#/Vol]320 10*3/lV817-150 German HospitalProtein [Mass/volume] in Serum or PlasmaOrdered By: Elsie Harper on 56-54-9086Egxdoco [Mass/Vol]6.1 g/dL6.1-7.9German HospitalRBC Auto (Bld) [#/Vol]Ordered By: Elsie Harper on 81-70-8523DSL (Bld) [#/Vol]4.41 10*6/uL3.90-5.60[facility] Health St. Charles Hospitalerum or plasma alanine aminotransferase measurement without P-5'-P (enzymatic activiOrdered By: Elsie Harper on 08-35-3885TSR No additional P-5'-P [Catalytic activity/Vol]18 U/A25-42EmamqohjlMercy Health St. Charles Hospitalerum or plasma albumin/globulin mass ratioOrdered By: Elsie Harper on 09-20-2022 Albumin/Globulin [Mass ratio]1.7 {ratio}[facility] St. Charles Hospitalerum or plasma alkaline phosphatase measurement (enzymatic activity/volume)Ordered By: Elsie Harper on 68-93-7436QHT [Catalytic activity/Vol]78 U/S56-30PrxoaubywMercy Health St. Charles Hospitalerum or plasma anion gap determinationOrdered By: Elsie Harper on 38-55-8586Azkpx gap [Moles/Vol]10.6 mmol/L6.0-15.0Mer[facility] Health St. Charles Hospitalerum or plasma aspartate aminotransferase measurement (enzymatic activity/volume)Ordered By: Elsie Harper on 56-47-1057EAS [Catalytic activity/Vol]21 U/J45-69UkeshjocxMercy Health St. Charles Hospitalerum or plasma calcium measurement (mass/volume)Ordered By: Elsie Harper on 68-77-2115Relbcxv [Mass/Vol]9.3 mg/dL8.2-10.2FOhio State Harding Hospitalerum or plasma chloride measurement (moles/volume)Ordered By: Elsie Harper on 09-20-2022 Chloride [Moles/Vol]103 mmol/I66-749HdqejyqeaMercy Health St. Charles Hospitalerum or plasma glucose measurement (mass/volume)Ordered By: Elsie Harper on 09-20-2022 Glucose [Mass/Vol]134 mg/nS34-954TqmjtujkkGerman HospitalComment on above:ADA recommended reference rangeRandom Glucose Reference Range is dependent on time and content of last meal. Glucose of more than 200 mg/dL in a nonstressed, ambulatory subject supports the diagnosisof Diabetes Mellitus.Serum or plasma potassium measurement (moles/volume)Ordered By: Elsie Harper on 37-22-7308Egkvfefrq [Moles/Vol]4.4 mmol/L3.5-5.1FOhio State Harding Hospitalerum or plasma sodium measurement (moles/volume)Ordered By: Elsie Harper on 38-15-0961Inlrpe [Moles/Vol]133 mmol/M163-961MmmzzheggMercy Health St. Charles Hospitalerum or plasma total bilirubin measurement (mass/volume)Ordered By: Elsie Harper on 21-16-1101Bfhisytew [Mass/Vol]0.6 mg/dL0.3-1.2FOhio State Harding Hospitalerum or plasma total carbon dioxide measurement (moles/volume) Ordered By: Elsie Harper on 41-86-2019PL9 [Moles/Vol]23.8 mmol/L22.0-30.[address] Charles Hospitalerum or plasma urea nitrogen measurement (mass/volume)Ordered By: Elsie Harper on 63-73-1078Osgf nitrogen [Mass/Vol]19 mg/dL9-23German HospitalWBC Auto (Bld) [#/Vol]Ordered By: Elsie Harper on 09-59-3264BXN (Bld) [#/Vol]5.8 10*3/uL4.1-10.5FOhioHealth Pickerington Methodist HospitalCBC panel Auto (Bld)on 28-76-3568Rwsreusjmyk distribution width (RBC) [Ratio]13.2 %11.5 - 15.0 %[facility]win City HospitalHematocrit (Bld) [Volume fraction]44.2 %39.0 - 51.0 %[facility] City HospitalHemoglobin (Bld) [Mass/Vol]14.6 g/dL 13.0 - 17.0 g/dLSelect Medical Specialty Hospital - TrumbullH (RBC) [Entitic mass]31.9 pg26.0 - 34.0 pg [facility] Hospital - TrumbullHC (RBC) [Mass/Vol]33.0 g/dL30.5 - 36.0 g/dLTwin City Hospital MCV (RBC) [Entitic vol]96.5 fL80.0 - 100.0 fLCleveland ClinicNucleated RBC (Bld) [#/Vol]<0.01 k/uLTwin City HospitalPlatelet mean volume (Bld) [Entitic vol]9.5 fL 9.0 - 12.7 fLCleveland ClinicPlatelets (Bld) [#/Vol]314 10*3/uL150 - 400 k/uL Twin City HospitalRB (Bld) [#/Vol]4.58 10*6/uL4.20 - 6.00 m/uLOhioHealth Marion General Hospital (Bld) [#/Vol]9.23 10*3/uL3.70 - 11.00 k/uLTwin City HospitalNo Panel Information on 47-55-3764Sbhzstxpq ClinicInitial Visit (Orthopaedic Surgery)on 08-14-2022 Initial Visit (Orthopaedic Surgery)Diagnoses/Problems Assessed Lumbar radicular pain (724.4) (M54.16) Orders [...] midlevel?s note and agree with the documented findingsand plan of care. Morgan is someone who [...] leg symptoms; however, there is a flare-up recently . The back is actually a little bit [...] an MRI of his lumbar spine. We willsee him back after the MRI and take [...] got six months relief out of it butdid not return for followup. He did get a second injection with Dr. Black and got no relief. He is back today with similar symptoms, only worsening. He is having moderate to severe left leg pain thatis severely inhibiting his bodily function. He is having back pain as well, 40% back pain versus 60% leg. He has not done any recent physical therapy. He did do a visit or two of care program resident a couple months ago, but this did [...] Recorded: 14Aug2022 03:12PM Height5 ft 8 in Earujs560 lb BMI Yhhdjnoyfy84.8 kg/m2 BSA Calculated2.03 Physical Exam On physical exam, well nourished, well kept. No lymphangitis or lymphadenopathy in the examined extremities. Good perfusion to the extremities x 4. Radial and dorsalis pedis pulses 2+. Capillary refill to allfour digits brisk. No distal edema. He can rise from a seated position. He can stand on his toes and heels if he balances on the table.He has a steady gait, but he looks to be antalgic on the left. This has been getting worse over time. Signatures Electronically signed by : Elma Reyes, ; Aug 16 2022 7:05PM EST (Supervisor Cooler Service/Recorder) Electronically signed by : Guevara Coello MD; Aug 17 2022 12:53PM [facility] MatchNo Panel Informationon 99-88-9209XnoondRO-[facility] Work Phone: SPINE, LUMBOSACRAL MIN 4 VIEWSon 13-02-7647UMUJK, LUMBOSACRAL MIN 4 VIEWSMRN: [id number] Patient Name: MORGAN LATHAM STUDY: SPINE, LUMBOSACRAL MIN 4 VIEWS; ; 08/14/2022 3:31 pm INDICATION: pain M54.50: Low back pain. ACCESSION NUMBER(S): [id number] ORDERING CLINICIAN: GUEVARA COELLO FINDINGS: AP lateral [...] hip arthritis. Electronically signed by: GUEVARA COELLO MDEncompass Health Rehabilitation Hospital of [facility]ley-19 PCR (CVDENCOMPASS HEALTH RE[facility])on 55-62-9759SIUB-CoV-2 (COVID-19) RNA AMARJIT+probe Ql (Unsp spec)Not detectedNormalNOT DETECTEDThe [facility] Hospitals Ahuja Medical CenterComment on above:Result Comment: This test is not yet approved or cleared by the [place] FDA. When there are no FDA-approved or cleared tests available, and other criteria are met, FDA can make tests available under an emergency access mechanism called an Emergency Use Authorization (EUA). The EUA for this test is supported by the [employer] of Health and Human Service's (HHS's) declaration [...] of clinical signs and symptoms consistent with SARS-CoV-2.Performed By: #### [facility] #### [facility] [address] [place] [address] Dr. Alexis Spann Vital Signs Date TimeVital SignValuePerforming HoagyzpnhNnettlcn30-33-0457 14:42-0400Body annktd145.18 cmJuve Mcpherson MD Work Phone: [facility]10-30-2025 14:42-0400 Body mass index (BMI) [Ratio]32.7 kg/m2Juve Mcpherson MD Work Phone: [facility]10-30-2025 14:42-0400 Body vrnpcdtghju45.1 [degF]Juve Mcpherson MD Work Phone: [facility]10-30-2025 14:42-0400 Body svjtyc02.8 kgJuve Mcpherson MD Work Phone: [facility]10-30-2025 14:42-0400 Diastolic blood vijtvqpv01 mm[Hg]Juve Mcpherson MD Work Phone: 1(590)[address] [place], [place] 0422210-30-2025 14:42-0400 Heart rate47 /minJuve Mcpherson MD Work Phone: 1(755)[address] [place], [place] 0422210-30-2025 14:42-0400 Respiratory rate18 /minJuve Mcpherson MD Work Phone: 1(419)[address] [place], [place] 2903110-30-2025 14:42-0400 SaO2% (BldA) [Mass fraction]97 %Juve Mcpherson MD Work Phone: 1(374)[address] [place], [place] 2903110-30-2025 14:42-0400 Systolic blood vctgvurb785 mm[Hg]Juve Mcpherson MD Work Phone: 1(847)[address] [place], [place] 2903110-16-2025 15:04-0400 Body jsgcae227.18 cmJuve Mcpherson MD Work Phone: 1(886)[address] [place], [place] 2903110-16-2025 15:04-0400 Body mass index (BMI) [Ratio]32.4 kg/m2Juve Mcpherson MD Work Phone: 1(792)[address] [place], [place] 2903110-16-2025 15:04-0400 Body mymani28.89 kgJuve Mcpherson MD Work Phone: 1(429)[address] [place], [place] 2903110-16-2025 15:04-0400 Diastolic blood mdsakpuw54 mm[Hg]Juve Mcpherson MD Work Phone: 1(389)[address] [place], [place] 2903110-16-2025 15:04-0400 Heart rate75 /Jennifer Mcpherson MD Work Phone: 1(953)[address] [place], [place] 2903110-16-2025 15:04-0400 SaO2% (BldA) [Mass fraction]98 %Juve Mcpherson MD Work Phone: 1(073)[address] [place], [place] 2903110-16-2025 15:04-0400 Systolic blood owaglxva136 mm[Hg]Juve Mcpherson MD Work Phone: [facility]09-17-2025 13:07-0400 Body ljibpf309.2 cmOdilia Ernandez YIELD IMPROVEMENT ENGINEER-AIR VALUE TESTER Work Phone: [facility]09-17-2025 13:07-0400 Body mass index (BMI) [Ratio]32.89 kg/x8KjprvOdilia Ernandez YIELD IMPROVEMENT ENGINEER-AIR VALUE TESTER Work Phone: [phone]09-17-2025 13:07-0400 Body xhtgue58.25 kgOdilia Ernandez YIELD IMPROVEMENT ENGINEER-AIR VALUE TESTER Work Phone: 1(501)[address]09-17-2025 13:07-0400 Diastolic blood jubsplnw34 mm[Hg]Odilia Ernandez YIELD IMPROVEMENT ENGINEER-AIR VALUE TESTER Work Phone: 1(966)[address]09-17-2025 13:07-0400 Heart rate68 /minDchristian Ernandez YIELD IMPROVEMENT ENGINEER-AIR VALUE TESTER Work Phone: 1(246)[address] [place], [place] 7564309-17-2025 13:07-0400 Systolic blood vrzccylx255 mm[Hg]Odilia Ernandez YIELD IMPROVEMENT ENGINEER-AIR VALUE TESTER Work Phone: 1(429)846-[address] [place], [place] 7564309-09-2025 10:23-0400 Body tqmjoa371.18 cmJuve Mcpherson MD Work Phone: [facility]09-09-2025 10:23-0400 Body mass index (BMI) [Ratio]32.4 kg/m2Juve Mcpherson MD Work Phone: [facility]09-09-2025 10:23-0400 Body uijmpf23.89 kgJuve Mcpherson MD Work Phone: [facility]09-09-2025 10:23-0400 Diastolic blood yjxhbvfr36 mm[Hg]Juve Mcpherson MD Work Phone: [facility]09-09-2025 10:23-0400 Heart rate84 /minJuve Mcpherson MD Work Phone: [facility]09-09-2025 10:23-0400 Respiratory rate20 /minJuve Mcpherson MD Work Phone: [facility]09-09-2025 10:23-0400 SaO2% (BldA) [Mass fraction]98 %Juve Mcpherson MD Work Phone: [facility]09-09-2025 10:23-0400 Systolic blood uyduijhj239 mm[Hg]Juve Mcpherson MD Work Phone: [facility]08-22-2025 11:34-0400 Body bcedsg228.2 cmJuve Mcpherson MD Work Phone: 1(092)[address]01701[address] [place], [place] [address]Txiunrnozd92-20-0180 11:34-0400Body mass index (BMI) [Ratio]31.95 kg/m2Juve Mcpherson MD Work Phone: [facility] HospitalAejbznrnqc93-88-0754 11:34-0400Body temperature 97.5 [degF]Juve Mcpherson MD Work Phone: [facility] HospitalHkxvilnuua27-00-5836 11:34-0400Body dvbhmu86.53 kgJuve Mcpherson MD Work Phone: [facility] HospitalNxskoylzrm53-76-1875 11:34-0400Diastolic blood jizqnbwo31 mm[Hg]Juve Mcpherson MD Work Phone: [facility] HospitalXvddfnayel01-94-1552 11:34-0400Heart rate69 /min Juve Mcpherson MD Work Phone: [facility] HospitalEyvwdlmkgv67-24-7985 11:34-0400Respiratory rate22 /minJuve Mcpherson MD Work Phone: [facility] HospitalDgovxtawju62-78-2580 11:34-5166JqX8% (BldA) [Mass fraction]98 %Juve Mcpherson MD Work Phone: [facility] HospitalInkhwnelpz18-14-5893 11:34-0400Systolic blood clypdbsd933 mm[Hg]Juve Mcpherson MD Work Phone: [facility] HospitalDrgushgodd68-82-5011 14:09-0400Body gacnxm000.2 cmOdilia Ernandez YIELD IMPROVEMENT ENGINEER-AIR VALUE TESTER Work Phone: [phone]08-06-2025 14:09-0400 Body mass index (BMI) [Ratio]33.05 kg/u3PedhjOdilia Ernandez YIELD IMPROVEMENT ENGINEER-AIR VALUE TESTER Work Phone: 6(512)[address]08-06-2025 14:09-0400 Body egewpg59.71 kgOdilia Ernandez YIELD IMPROVEMENT ENGINEER-AIR VALUE TESTER Work Phone: 1(859)188-[address] [place], [place] 7564308-06-2025 14:09-0400 Diastolic blood vavkralt06 mm[Hg]Odilia Ernandez YIELD IMPROVEMENT ENGINEER-AIR VALUE TESTER Work Phone: 1(127)52242 [address]08-06-2025 14:09-0400 Heart rate76 /minDchristian Ernandez YIELD IMPROVEMENT ENGINEER-AIR VALUE TESTER Work Phone: 1(145)443-[address] [place], [place] 7564308-06-2025 14:09-0400 Systolic blood abqkwjrw192 mm[Hg]Odilia Ernandez YIELD IMPROVEMENT ENGINEER-AIR VALUE TESTER Work Phone: 1(849)141-[address] [place], [place] 7564307-24-2025 11:00-0400 Body erglbt814.2 cmJuve Mcpherson MD Work Phone: [facility] HospitalCosvalnnrx81-08-7699 11:00-0400Body mass index (BMI) [Ratio]32.89 kg/m2Juve Mcpherson MD Work Phone: [facility] HospitalLherrybnlh91-41-3120 11:00-0400Body temperature 98.4 [degF]Juve Mcpherson MD Work Phone: [facility] HospitalTocvfcpflh42-98-7882 11:00-0400Body mwzhqu96.25 kgJuve Mcpherson MD Work Phone: [facility] HospitalVmyyajgutb40-73-4943 11:00-0400Diastolic blood gpmjhcyy82 mm[Hg]Juve Mcpherson MD Work Phone: [facility] HospitalIeilxelkye60-38-6489 11:00-0400Heart rate87 /min Juve Mcpherson MD Work Phone: [facility] HospitalLbflaaffpm42-50-5400 11:00-0400Respiratory rate18 /Jennifer Mcpherson MD Work Phone: [facility] HospitalTbjiymbcbn53-67-9828 11:00-8429OjJ2% (BldA) [Mass fraction]95 %Juve Mcpherson MD Work Phone: [facility] HospitalIxtvoxjzds24-39-2437 11:00-0400Systolic blood kzmobtbm190 mm[Hg]Juve Mcpherson MD Work Phone: [facility] HospitalFdwafpdibr18-90-8055 11:41-0400Body nrisip581.2 cmOdilia Ernandez YIELD IMPROVEMENT ENGINEER-AIR VALUE TESTER Work Phone: 1(784)764-[address] [place], [place] 7564307-22-2025 11:41-0400 Body mass index (BMI) [Ratio]32.77 kg/m0PxglaOdilia Ernandez YIELD IMPROVEMENT ENGINEER-AIR VALUE TESTER Work Phone: 1(531)190-[address] [place], [place] 7564307-22-2025 11:41-0400 Body pshici36.89 kgOdilia Ernandez YIELD IMPROVEMENT ENGINEER-AIR VALUE TESTER Work Phone: 1(014)221-[address] [place], [place] 7564307-22-2025 11:41-0400 Diastolic blood gkpwafqa58 mm[Hg]Odilia Ernandez YIELD IMPROVEMENT ENGINEER-AIR VALUE TESTER Work Phone: 1(375)[address]07-22-2025 11:41-0400 Heart rate80 /Malik Ernandez YIELD IMPROVEMENT ENGINEER-AIR VALUE TESTER Work Phone: 1(206)111-[address] [place], [place] 7564307-22-2025 11:41-0400 Systolic blood blneunco943 mm[Hg]Odilia Ernandez YIELD IMPROVEMENT ENGINEER-AIR VALUE TESTER Work Phone: 1(510)466-[address] [place], [place] 7564306-27-2025 18:00-0400 Diastolic blood mm[Hg]Juve Mcpherson MD Work Phone: [facility]06-27-2025 18:00-0400 Heart rate70 /minJuve Mcpherson MD Work Phone: [facility]06-27-2025 18:00-0400 Respiratory rate16 /minJuve Mcpherson MD Work Phone: [facility]06-27-2025 18:00-0400 SaO2% (BldA) [Mass fraction]100 %Juve Mcpherson MD Work Phone: [facility]06-27-2025 18:00-0400 Systolic blood scvutnup984 mm[Hg]Juve Mcpherson MD Work Phone: 1(103)[address]06-27-2025 12:01-0400 Body itblek280.18 cmJuve Mcpherson MD Work Phone: 1(869)[address]06-27-2025 12:01-0400 Body kqlwmhxeuiy20.2 [degF]Juve Mcpherson MD Work Phone: 1(176)09716 [address]06-27-2025 12:01-0400 Body .6 kgJuve Mcpherson MD Work Phone: 1(287)319-[address] [place], [place] 3733306-23-2025 13:17-0400 Diastolic blood rujlohcj37 mm[Hg]Claudia [address] [place] [address] 01-25-2025 13:17-0400Heart rate66 /minEly [address] [place] [address] 01-25-2025 13:17-0400Systolic blood bosbccuw790 mm[Hg]Claudia [address] [place], [place] 1694706-19-2025 11:41-0400Body nhzbya151.2 cmJuve Mcpherson MD Work Phone: [facility] HospitalNsvzivshvk01-46-9355 11:41-0400Body mass index (BMI) [Ratio]31.64 kg/m2Juve Mcpherson MD Work Phone: [facility] HospitalGnxvmvmdmr11-87-7558 11:41-0400Body temperature 97.81 [degF]Juve Mcpherson MD Work Phone: [facility] HospitalZsyhwmjfcc62-89-2937 11:41-0400Body tnaynr60.63 kgJuve Mcpherson MD Work Phone: [facility] HospitalPvsuqtijfr82-23-0821 11:41-0400Diastolic blood uwigxpvt31 mm[Hg]Juve Mcpherson MD Work Phone: 1(492)[address] [place], [place] 9225606-19-2025 11:41-0400Heart rate96 /min Juve Mcpherson MD Work Phone: 1(856)1[facility] HospitalTrpctgceob71-97-0615 11:41-0400Respiratory rate18 /minJuve Mcpherson MD Work Phone: 1(264)[address] [place], [place] 9225606-19-2025 11:41-7073RhX5% (BldA) [Mass fraction]98 %Juve Mcpherson MD Work Phone: 1(408)[address] [place], [place] 9225606-19-2025 11:41-0400Systolic blood mm[Hg]Juve Mcpherson MD Work Phone: 1(197)[address]06-06-2025 15:24-0400Body skygsvqxoen13 [degF]Juve Mcpherson MD Work Phone: 1(058)[address]06-06-2025 15:24-0400 Heart rate74 /minJuve Mcpherson MD Work Phone: 1(923)[address]06-06-2025 15:24-0400 Respiratory rate16 /minJuve Mcpherson MD Work Phone: 1(095)[address]06-06-2025 15:24-0400 SaO2% (BldA) [Mass fraction]95 %Juve Mcpherson MD Work Phone: 1(270)[address]06-06-2025 12:00-0400 Diastolic blood oexyzezm21 mm[Hg]Juve Mcpherson MD Work Phone: 1(421)[address]06-06-2025 12:00-0400 Systolic blood mm[Hg]Juve Mcpherson MD Work Phone: 1(367)10616 [address]06-06-2025 05:40-0400 Body wyprpm72.5 kgJuve Mcpherson MD Work Phone: 1(419)547[address]06-06-2025 00:27-0400 Inhaled oxygen farukteqvpdhq85 %Juve Mcpherson MD Work Phone: 1(549)[address]06-05-2025 12:43-0400 Body .18 cmJuve Mcpherson MD Work Phone: 1(371)[address] [place], [place] 2903106-04-2025 15:34-0400 Inhaled oxygen flow rate2 L/minJuve Mcpherson MD Work Phone: 1(535)[address]06-04-2025 14:00-0400 Body mhyjlj037.18 cmJuve Mcpherson MD Work Phone: 1(480)[address] [place], [place] 2903106-04-2025 14:00-0400 Body upxtyxxnxrt05 [degF]Juve Mcpherson MD Work Phone: 1(312)[address] [place], [place] 2903106-04-2025 14:00-0400 Body gokaro89 kgJuve Mcpherson MD Work Phone: 1(778)[address] [place], [place] 2903106-04-2025 14:00-0400 Diastolic blood zqoqfork67 mm[Hg]Juve Mcpherson MD Work Phone: 1(770)[address]06-04-2025 14:00-0400 Heart rate78 /minJuve Mcpherson MD Work Phone: 1(583)[address]06-04-2025 14:00-0400 Respiratory rate22 /minJuve Mcpherson MD Work Phone: 1(021)[address] [place], [place] 2903106-04-2025 14:00-0400 SaO2% (BldA) [Mass fraction]100 %Juve Mcpherson MD Work Phone: 1(988)[address]06-04-2025 14:00-0400 Systolic blood yxucqyvb738 mm[Hg]Juve Mcpherson MD Work Phone: 1(053)[address]06-04-2025 10:10-0400 Inhaled oxygen igsmvxtgmcogx52 %Juve Mcpherson MD Work Phone: [facility]05-09-2025 10:19-0400 Body bnozrj015.2 cmOdilia Ernandez YIELD IMPROVEMENT ENGINEER-AIR VALUE TESTER Work Phone: [facility]05-09-2025 10:19-0400 Body mass index (BMI) [Ratio]31.64 kg/a3FoavbOdilia Ernandez YIELD IMPROVEMENT ENGINEER-AIR VALUE TESTER Work Phone: [facility]05-09-2025 10:19-0400 Body tzruiw32.63 kgOdilia Ernandez YIELD IMPROVEMENT ENGINEER-AIR VALUE TESTER Work Phone: [phone]05-09-2025 10:19-0400 Diastolic blood jugrlnhw17 mm[Hg]Odilia Ernandez YIELD IMPROVEMENT ENGINEER-AIR VALUE TESTER Work Phone: 1(803)821-[address] [place], [place] 7564305-09-2025 10:19-0400 Heart rate76 /minDchristian Ernandez YIELD IMPROVEMENT ENGINEER-AIR VALUE TESTER Work Phone: 1(973)130-[address] [place], [place] 7564305-09-2025 10:19-0400 Systolic blood fvvmayho793 mm[Hg]Odilia Ernandez YIELD IMPROVEMENT ENGINEER-AIR VALUE TESTER Work Phone: [facility]05-07-2025 11:02-0400 Body hnpvne248.2 cmSaul Gonzales MD Work Phone: [facility]05-07-2025 11:02-0400 Body mass index (BMI) [Ratio]31.95 kg/k0WndceplSaul Gonzales MD Work Phone: [facility]05-07-2025 11:02-0400 Body dmixba45.53 kgSaul Gonzales MD Work Phone: [facility]04-24-2025 11:51-0400 Body .2 cmJuve Mcpherson MD Work Phone: [facility] HospitalFmbcqwdtvn80-40-2522 11:51-0400Body mass index (BMI) [Ratio]31.64 kg/m2Juve Mcpherson MD Work Phone: [facility] HospitalCagnutwrvd99-30-2149 11:51-0400Body temperature 96.01 [degF]Juve Mcpherson MD Work Phone: [facility] HospitalAeqejoxpip57-70-6382 11:51-0400Body ywhhba00.63 kgJuve Mcpherson MD Work Phone: [facility] HospitalGhcidgrkrm22-04-6693 11:51-0400Diastolic blood yfhprvta90 mm[Hg]Juve Mcpherson MD Work Phone: [facility] HospitalFqclumpnad93-45-8814 11:51-0400Heart rate92 /min Juve Mcpherson MD Work Phone: 1([phone] HospitalOemfknwfpf54-65-0641 11:51-0400Respiratory rate22 /minJuve Mcpherson MD Work Phone: [facility] HospitalRchmmexncv89-03-9545 11:51-0120OoW8% (BldA) [Mass fraction]98 %Juve Mcpherson MD Work Phone: [facility] HospitalJkhbczxbjg81-15-3064 11:51-0400Systolic blood wfhkajvi607 mm[Hg]Juve Mcpherson MD Work Phone: [facility] HospitalRzabjzlhzi12-64-9042 11:31-0400Body temperature 98.8 [degF]Juve Mcpherson MD Work Phone: 1([phone])664[facility]04-18-2025 11:31-0400 Diastolic blood gtimjtzr95 mm[Hg]Juve Mcpherson MD Work Phone: [facility]04-18-2025 11:31-0400 Respiratory rate16 /minJuve Mcpherson MD Work Phone: [facility]04-18-2025 11:31-0400 SaO2% (BldA) [Mass fraction]99 %Juve Mcpherson MD Work Phone: [facility]04-18-2025 11:31-0400 Systolic blood mm[Hg]Juve Mcpherson MD Work Phone: [facility]106)[facility]-18-2025 11:23-0400 Heart rate72 /minSadiec Norma PINEDA Work Phone: [facility]04-18-2025 05:06-0400 Body wudblr25.5 kgJuve Mcpherson MD Work Phone: [facility]04-17-2025 15:15-0400 Body nykpof597.18 cmJuve Mcpherson MD Work Phone: [facility]01-22-2025 11:46-0500 Body zedhxa319.2 cmWillramón Abdelrahman DO Work Phone: [facility]01-22-2025 11:46-0500 Body mass index (BMI) [Ratio]31.92 kg/r9Pjtpvxc Abdelrahman DO Work Phone: [facility]01-22-2025 11:46-0500 Body mrrjsi37.44 kgWillramón Abdelrahman DO Work Phone: [facility]01-22-2025 11:46-0500 Diastolic blood gpjyeuto60 mm[Hg]Alyssa Abdelrahman DO Work Phone: [facility]01-22-2025 11:46-0500 Heart rate68 /minWillramón Abdelrahman DO Work Phone: [facility]01-22-2025 11:46-0500 Systolic blood josffikb949 mm[Hg]Alyssa Browndon DO Work Phone: [facility]01-08-2025 14:49-0500 Body fzeych478.2 cmSaul Gonzales MD Work Phone: [facility]01-08-2025 14:49-0500 Body mass index (BMI) [Ratio]32.11 kg/i0SjecwosSaul Gonzales MD Work Phone: [facility]01-08-2025 14:49-0500 Body jqvnet36.99 kgSaul Gonzales MD Work Phone: [facility]12-11-2024 11:25-0500 Diastolic blood fjssyart27 mm[Hg]Juve Mcpherson MD Work Phone: 1(191)[address]12-11-2024 11:25-0500 Heart rate74 /minJuve Mcpherson MD Work Phone: 1(860)[address] [place], [place] 0422212-11-2024 11:25-0500 Respiratory rate20 /minJuve Mcpherson MD Work Phone: 1(485)[address] [place], [place] 0422212-11-2024 11:25-0500 SaO2% (BldA) [Mass fraction]95 %Juve Mcpherson MD Work Phone: 1(130)[address]12-11-2024 11:25-0500 Systolic blood ztaqjwju795 mm[Hg]Juve Mcpherson MD Work Phone: 1(405)[address] [place], [place] 0422212-11-2024 10:40-0500 Inhaled oxygen flow rate1 L/minJuve Mcpherson MD Work Phone: 1(499)[address] [place], [place] 2903112-11-2024 09:22-0500 Body kpfkvzbxusa50.2 [degF]Juve Mcpherson MD Work Phone: 1(069)[address]12-11-2024 06:38-0500 Body uvephy874.18 cmJuve Mcpherson MD Work Phone: 1(295)[address]12-11-2024 06:38-0500 Body lpnuqw74.6 kgJuve Mcpherson MD Work Phone: 1(186)[address]12-03-2024 10:39-0500 Body lelgkv359.2 cmJuve Mcpherson MD Work Phone: [facility] HospitalAesbthelsy40-23-2542 10:39-0500Body mass index (BMI) [Ratio]31.79 kg/m2Juve Mcpherson MD Work Phone: [facility] HospitalBinlhjnpxd64-48-5780 10:39-0500Body temperature 97.11 [degF]Juve Mcpherson MD Work Phone: [facility] HospitalNkwsjosgnc82-99-0876 10:39-0500Body bahsrv03.08 kgJuve Mcpherson MD Work Phone: [facility] HospitalCaprebnmqa97-41-6624 10:39-0500Diastolic blood ucsefjsz60 mm[Hg]Juve Mcpherson MD Work Phone: [facility] HospitalQfqrkgauww95-56-6866 10:39-0500Heart yvbs217 /min Juve Mcpherson MD Work Phone: [facility] HospitalAkwogujbtn97-49-9512 10:39-0500Respiratory rate20 /minJuve Mcpherson MD Work Phone: [facility] HospitalQygmbdnldq80-76-4591 10:39-2606RrB4% (BldA) [Mass fraction]97 %Juve Mcpherson MD Work Phone: [facility] HospitalLwfsowljup75-87-7372 10:39-0500Systolic blood nbtkzeox829 mm[Hg]Juve Mcpherson MD Work Phone: [facility] HospitalJlfiheafpc27-77-6717 14:49-0400Body xbymbr964.2 cmSaul Gonzales MD Work Phone: [facility]10-23-2024 14:49-0400 Body mass index (BMI) [Ratio]31.78 kg/j0BnfnihlSaul Gonzales MD Work Phone: [facility]10-23-2024 14:49-0400 Body iskbko19.03 kgSaul Gonzales MD Work Phone: [facility]09-19-2024 13:11-0400 Body esutdv526.2 cmJuve Mcpherson MD Work Phone: [facility] HospitalHakamzwrsk85-50-8199 13:11-0400Body mass index (BMI) [Ratio]32.11 kg/m2Juve Mcpherson MD Work Phone: [facility] HospitalVmsdpijwnn81-16-7268 13:11-0400Body temperature 97.3 [degF]Juve Mcpherson MD Work Phone: [facility] HospitalVsrdhvuife76-46-0779 13:11-0400Body mkjtze13.99 kgJuve Mcpherson MD Work Phone: [facility] HospitalInbqkmimjm96-29-0938 13:11-0400Diastolic blood jlormald69 mm[Hg]Juve Mcpherson MD Work Phone: [facility] HospitalQeyhirmdjr80-02-3295 13:11-0Heart rate83 /min Juve Mcpherson MD Work Phone: [facility] HospitalXqdyyrsuue05-07-9535 13:110Respiratory rate18 /minJuve Mcpherson MD Work Phone: [facility] HospitalZlhttfmtlm70-26-7938 13:11-1084MgL6% (BldA) [Mass fraction]98 %Juve Mcpherson MD Work Phone: [facility] HospitalIvveodfkcg75-49-8749 13:11-040Systolic blood brwzkxpe528 mm[Hg]Juve Mcpherson MD Work Phone: [facility] HospitalJkrunregkp84-93-4896 09:49-0400Body zjgekf253.7 cmSaul Gonzales MD Work Phone: [facility]08-10-2024 09:49-0400 Body mass index (BMI) [Ratio]29.35 kg/j1FffuijlSaul Gonzales MD Work Phone: [facility]08-10-2024 09:49-0400 Body rzskylwbdnz83 [degF]Saul Gonzales MD Work Phone: [facility]08-10-2024 09:49-0400 Body ycfpez16.54 kgSaul Gonzales MD Work Phone: [facility]06-12-2024 10:58-0400 Body zuhitx676.2 cmSaul Gonzales MD Work Phone: [facility]06-12-2024 10:58-0400 Body mass index (BMI) [Ratio]30.98 kg/g1EbidcleSaul Gonzales MD Work Phone: [facility]06-12-2024 10:58-0400 Body tilzau05.72 kgSaul Gonzales MD Work Phone: [facility]04-30-2024 14:03-0400 Body rytklw264.2 cmWijoon Abdelrahman DO Work Phone: [facility]04-30-2024 14:03-0400 Body mass index (BMI) [Ratio]31.95 kg/y1Bkpmoqp Abdelrahman DO Work Phone: 1(795)[address]04-30-2024 14:03-0400 Body mvzfyq28.53 kgWillramón Abdelrahman DO Work Phone: 1(147)[address]42 [address]04-30-2024 14:03-0400 Diastolic blood ykjafvko85 mm[Hg]Alyssa Quick DO Work Phone: 1(469)[address] [place], [place] 7564304-30-2024 14:03-0400 Heart rate72 /minWijoon Abdelrahman DO Work Phone: 1(335)857-[address] [place], [place] 7564304-30-2024 14:03-0400 Systolic blood dyeqzlnf507 mm[Hg]Alyssa Browndon DO Work Phone: 1(299)[address]04-10-2024 10:26-0400 Body tfftso287.2 cmOdilia Ernandez YIELD IMPROVEMENT ENGINEER-AIR VALUE TESTER Work Phone: 1(153)[address] [place], [place] 7564304-10-2024 10:26-0400 Body mass index (BMI) [Ratio]31.01 kg/z5IdxlaOdilia Ernandez YIELD IMPROVEMENT ENGINEER-AIR VALUE TESTER Work Phone: 1(676)[address]142 [address]04-10-2024 10:26-0400 Body pfrpal20.81 kgOdilia Ernandez YIELD IMPROVEMENT ENGINEER-AIR VALUE TESTER Work Phone: 1(025)629-[address] [place], [place] 7564304-10-2024 10:26-0400 Diastolic blood auujdsoj90 mm[Hg]Odilia Ernandez YIELD IMPROVEMENT ENGINEER-AIR VALUE TESTER Work Phone: 1(440)414-[address] [place], [place] 7564304-10-2024 10:26-0400 Heart rate82 /Rodrichristian Ernandez YIELD IMPROVEMENT ENGINEER-AIR VALUE TESTER Work Phone: [phone]04-10-2024 10:26-0400 Systolic blood zpdewyiu253 mm[Hg]Odilia Awais YIELD IMPROVEMENT ENGINEER-AIR VALUE TESTER Work Phone: [phone]03-20-2024 14:48-0400 Body ynxjpi502.2 cmOdilia Ernandez YIELD IMPROVEMENT ENGINEER-AIR VALUE TESTER Work Phone: [phone]03-20-2024 14:48-0400 Body mass index (BMI) [Ratio]33.67 kg/n4YdbhiOdilia Ernandez YIELD IMPROVEMENT ENGINEER-AIR VALUE TESTER Work Phone: [phone] [address]03-20-2024 14:48-0400 Body llbevp44.52 kgOdilia Ernandez YIELD IMPROVEMENT ENGINEER-AIR VALUE TESTER Work Phone: [phone]03-20-2024 14:48-0400 Diastolic blood mohyjkij19 mm[Hg]Odilia Ernandez YIELD IMPROVEMENT ENGINEER-AIR VALUE TESTER Work Phone: [phone]03-20-2024 14:48-0400 Heart rate78 /Rodrierniejah Awais YIELD IMPROVEMENT ENGINEER-AIR VALUE TESTER Work Phone: [phone]03-20-2024 14:48-0400 Systolic blood gdvgqazq508 mm[Hg]Odilia Ernandez YIELD IMPROVEMENT ENGINEER-AIR VALUE TESTER Work Phone: [phone]03-12-2024 14:08-0400 Body mahewn183.2 cmOdilia Ernandez YIELD IMPROVEMENT ENGINEER-AIR VALUE TESTER Work Phone: [phone]03-12-2024 14:08-0400 Body mass index (BMI) [Ratio]33.83 kg/a6JvpnxOdilia Ernandez YIELD IMPROVEMENT ENGINEER-AIR VALUE TESTER Work Phone: [phone] [place], [place] 1283103-12-2024 14:08-0400 Body fyswps10.98 kgOdilia Ernandez YIELD IMPROVEMENT ENGINEER-AIR VALUE TESTER Work Phone: [phone] [place], [place] 1283103-12-2024 14:08-0400 Diastolic blood ktcvzejm87 mm[Hg]Odilia Ernandez YIELD IMPROVEMENT ENGINEER-AIR VALUE TESTER Work Phone: [phone] [place], [place] 7564303-12-2024 14:08-0400 Heart rate60 /Malik Ernandez YIELD IMPROVEMENT ENGINEER-AIR VALUE TESTER Work Phone: [phone] [place], [place] 7564303-12-2024 14:08-0400 Systolic blood sklxhuba753 mm[Hg]Odilia Ernandez YIELD IMPROVEMENT ENGINEER-AIR VALUE TESTER Work Phone: [phone] [place], [place] 7564312-12-2023 14:37-0500 Body uwugln377.[address]12-12-2023 14:37-0500 Body mass index (BMI) [Ratio]31.17 kg/m[address] 07-16-2023 14:37-0500Body pnicxp89.[address] 07-16-2023 14:37-0500Diastolic blood wmaakmda62 mm[Hg][address]12-12-2023 14:37-0500Systolic blood ykzgfrdb944 mm[Hg][address]11-28-2023 13:38-0500Body oxudaq785.7 cmOdilia Ernandez YIELD IMPROVEMENT ENGINEER-AIR VALUE TESTER Work Phone: [phone] [place], [place] 7564311-28-2023 13:38-0500 Body mass index (BMI) [Ratio]30.56 kg/j4AjjqcOdilia Ernandez YIELD IMPROVEMENT ENGINEER-AIR VALUE TESTER Work Phone: 1(925)633-[address] [place], [place] 7564311-28-2023 13:38-0500 Body huwsvc39.17 kgOdilia Ernandez YIELD IMPROVEMENT ENGINEER-AIR VALUE TESTER Work Phone: 1(748)994-[address] [place], [place] 7564311-28-2023 13:38-0500 Diastolic blood xvcgvrty58 mm[Hg]Odilia Ernandez YIELD IMPROVEMENT ENGINEER-AIR VALUE TESTER Work Phone: [phone])827-[address] [place], [place] 7564311-28-2023 13:38-0500 Heart rate68 /Malik Ernandez YIELD IMPROVEMENT ENGINEER-AIR VALUE TESTER Work Phone: [phone] [place], [place] 7564311-28-2023 13:38-0500 Systolic blood ilzluqsn815 mm[Hg]Odilia Ernandez YIELD IMPROVEMENT ENGINEER-AIR VALUE TESTER Work Phone: [facility]11-17-2023 09:43-0500 Body .2 cmOttoniel Trevino MD PhD Work Phone: [facility]11-17-2023 09:43-0500 Body mass index (BMI) [Ratio]30.54 kg/a8JtqbdOttoniel Trevino MD PhD Work Phone: [facility]11-17-2023 09:43-0500 Body afksla58.45 kgOttoniel Trevino MD PhD Work Phone: [phone]11-17-2023 09:43-0500 Diastolic blood mm[Hg]Ottoniel Trevino MD PhD Work Phone: [phone]11-17-2023 09:43-0500 Heart rate72 /minOttoniel Trevino MD PhD Work Phone: [phone]11-17-2023 09:43-0500 SaO2% (BldA) [Mass fraction]97 %Ottoniel Trevino MD PhD Work Phone: [phone]11-17-2023 09:43-0500 Systolic blood biefuick177 mm[Hg]Ottoniel Trevino MD PhD Work Phone: [facility]11-14-2023 14:07-0500 Body .2 cmAlyssa Quick DO Work Phone: [facility]11-14-2023 14:07-0500 Body mass index (BMI) [Ratio]31.17 kg/h1ZlyfclkAlyssa Quick DO Work Phone: [facility]11-14-2023 14:07-0500 Body vebatv15.27 kgAlyssa Quick DO Work Phone: [facility]11-14-2023 14:07-0500 Diastolic blood mm[Hg]Alyssa Quick DO Work Phone: [facility]11-14-2023 14:07-0500 Heart rate74 /Kailyn Quick DO Work Phone: [phone]11-14-2023 14:07-0500 Systolic blood xswvuksp016 mm[Hg]Alyssa Quick DO Work Phone: [facility]10-11-2023 14:54-0400 SaO2% (BldA) [Mass fraction]100 %Susan Braun MD Work Phone: [phone])[address] [place], [place] 9412110-11-2023 14:53-0400 Heart rate87 /Cathryn Braun MD Work Phone: 1(216)[address] [place], [place] 9412110-11-2023 14:53-0400 Respiratory rate19 /Cathryn Braun MD Work Phone: 1(216)[address] [place], [place] 9412110-11-2023 14:12-0400 Body trorrvokrxp70.9 [degF]Susan Braun MD Work Phone: 1(216)[address] [place], [place] 9412110-11-2023 14:12-0400 Diastolic blood lokotfhi83 mm[Hg]Susan Braun MD Work Phone: 1(216)[address] [place], [place] 9412110-11-2023 14:12-0400 Systolic blood hyaozyum304 mm[Hg]Susan Braun MD Work Phone: 1(216)[address] [place], [place] 9412110-11-2023 02:16-0400 Body mass index (BMI) [Ratio]29.67 kg/r6TxopjSusan Braun MD Work Phone: 1(216)[address] [place], [place] 9412110-11-2023 02:16-0400 Body hrlafx44.5 kgSusan Braun MD Work Phone: 1(216)[address] [place], [place] 9412110-05-2023 13:09-0400 Body blsautcqonr63.0Susan Braun MD Work Phone: 1(216)[address] [place], [place] 9412110-05-2023 13:09-0400 SaO2% (BldA) [Mass fraction]98 %Susan Braun MD Work Phone: 1(216)[address] [place], [place] 9412110-05-2023 05:32-0400 Body silanqwyuwx02.0Susan Braun MD Work Phone: 1(216)[address] [place], [place] 9412110-05-2023 05:32-0400 SaO2% (BldA) [Mass fraction]100 %Susan Braun MD Work Phone: 1(216)[address] [place], [place] 9412110-04-2023 23:07-0400 Body .Jian Braun MD Work Phone: 1(216)[address] [place], [place] 9412110-04-2023 23:07-0400 SaO2% (BldA) [Mass fraction]95 %Susan Braun MD Work Phone: 1(216)[address] [place], [place] 9412110-04-2023 17:52-0400 Body .Jian Braun MD Work Phone: 1(216)[address] [place], [place] 9412110-04-2023 15:41-0400 Body fcqfqnktuet94.Jian Braun MD Work Phone: 1(216)[address] [place], [place] 9412110-04-2023 15:41-0400 SaO2% (BldA) [Mass fraction]95 %Susan Braun MD Work Phone: 1(216)[address] [place], [place] 9412110-04-2023 14:01-0400 Body mlccfwqtnek62.Jian Braun MD Work Phone: 1(216)[address] [place], [place] 9412110-04-2023 14:01-0400 SaO2% (BldA) [Mass fraction]100 %Susan Braun MD Work Phone: 1(216)[address] [place], [place] 9412110-04-2023 12:42-0400 Body oxvfieieett09.Jian Braun MD Work Phone: 1(216)[address] [place], [place] 9412110-04-2023 12:42-0400 SaO2% (BldA) [Mass fraction]99 %Susan Braun MD Work Phone: 1(216)[address] [place], [place] 9412110-04-2023 12:06-0400 Body ogngbosgowg66.0Susan Braun MD Work Phone: 1(216)[address] [place], [place] 9412110-04-2023 12:06-0400 SaO2% (BldA) [Mass fraction]99 %Susan Braun MD Work Phone: 1(216)[address] [place], [place] 9412110-04-2023 11:41-0400 Body xgrdnabgcdc70.0Susan Braun MD Work Phone: 1(216)[address] [place], [place] 9412110-04-2023 11:38-0400 Body arsnogaweuc97.0Susan Braun MD Work Phone: 1(216)[address] [place], [place] 9412110-04-2023 11:28-0400 Body lypwstfuxss35.Jian Braun MD Work Phone: 1(216)[address] [place], [place] 9412110-04-2023 11:28-0400 SaO2% (BldA) [Mass fraction]100 %Susan Braun MD Work Phone: 1(216)[address] [place], [place] 9412110-04-2023 10:43-0400 Body cscpyepzkcv55.Jian Braun MD Work Phone: 1(216)[address] [place], [place] 9412110-04-2023 10:43-0400 SaO2% (BldA) [Mass fraction]100 %Susan Braun MD Work Phone: 1(216)[address] [place], [place] 9412110-04-2023 10:23-0400 Body htgmlzxywxu43.Jian Braun MD Work Phone: 1(216)[address] [place], [place] 9412110-04-2023 10:23-0400 SaO2% (BldA) [Mass fraction]99 %Susan Braun MD Work Phone: 1(216)[address] [place], [place] 9412110-04-2023 08:39-0400 Body liruuplnphy10.Jian Braun MD Work Phone: 1(216)[address] [place], [place] 9412110-04-2023 08:39-0400 SaO2% (BldA) [Mass fraction]97 %Susan Braun MD Work Phone: 1(216)[address] [place], [place] 9412110-04-2023 08:25-0400 Body whowbtavgoj75.Jian Braun MD Work Phone: 1(216)[address] [place], [place] 9412110-04-2023 08:23-0400 Body eijucxgbrbg25.Jian Braun MD Work Phone: 1(216)[address] [place], [place] 9412110-04-2023 08:23-0400 SaO2% (BldA) [Mass fraction]96 %Susan Braun MD Work Phone: 1(216)[address] [place], [place] 9412110-04-2023 08:00-0400 Body .7 Magdaleno Braun MD Work Phone: 1(216)[address] [place], [place] 9412110-04-2023 00:35-0400 Body rzvmoiivskc15.Jian Braun MD Work Phone: 1(216)[address] [place], [place] 9412110-03-2023 22:55-0400 Body hvmknmrsniu63.Jian Braun MD Work Phone: 1(216)[address] [place], [place] 9412110-03-2023 22:55-0400 SaO2% (BldA) [Mass fraction]94 %Susan Braun MD Work Phone: 1(216)[address] [place], [place] 9412110-03-2023 20:17-0400 Body nfzgidevwep32.Jian Braun MD Work Phone: 1(216)[address] [place], [place] 9412110-03-2023 20:17-0400 SaO2% (BldA) [Mass fraction]98 %Susan Braun MD Work Phone: 1(216)[address] [place], [place] 9412109-29-2023 17:00-0400 Diastolic blood krvjrobu42 mm[Hg]MD Juve Mcpherson Work Phone: [phone]([phone] [place], [place] 2593209-29-2023 17:00-0400 Heart rate75 /minMD Juve Mcpherson Work Phone: 1(387)513-[address] [place], [place] 2593209-29-2023 17:00-0400 Inhaled oxygen flow rate3 L/minMD Juve Mcpherson Work Phone: 1(511)545-[address] [place], [place] 2593209-29-2023 17:00-0400 Respiratory rate24 /minMD Juve Mcpherson Work Phone: [phone]09-29-2023 17:00-0400 SaO2% (BldA) [Mass fraction]98 %MD Juve Mcpherson Work Phone: 1([phone])[address]09-29-2023 17:00-0400 Systolic blood yhliopux723 mm[Hg]MD Juve Mcpherson Work Phone: 1(233)[address]09-29-2023 13:25-0400 Body cewnlp151.18 cmMD Juve Mcpherson Work Phone: 1(785)[address]09-29-2023 13:25-0400 Body fdzygprhwng16.1 [degF]MD Juve Mcpherson Work Phone: 1(367)[address]09-29-2023 13:25-0400 Body yyiasx78.5 kgMD Juve Mcpherson Work Phone: 1(267)[address]09-26-2023 11:14-0400 Body jzydxx849.72 cmReferring Provider [facility] [address] Work Phone: 1(476) 278-662809-26-2023 11:14-0400Body mass index (BMI) [Ratio] 29.98 kg/x0Ixkmsmzqc Provider [facility] [address] Work Phone: 1(251) 743-651109-26-2023 11:14-0400Body surface area Derived from formula2.03 n1Defibvgvd Provider [facility] [address] Work Phone: 1(524) 213-204809-26-2023 11:14-0400Body kvazfa98.45 kgReferring Provider JkyuuoxFP-Wflxreu-Tlnvhu[facility] [address] Work Phone: 1(177) 360-663708-28-2023 06:42-0400Body .81 kgMohini Hook MD Work Phone: [facility]08-28-2023 06:42-0400Diastolic blood mm[Hg]Mohini Hook MD Work Phone: [phone]08-28-2023 06:42-0400Heart rate67 /min Mohini Hook MD Work Phone: [facility]08-28-2023 06:42-0400Systolic blood inhluwhd173 mm[Hg]Mohini Hook MD Work Phone: [facility]03-01-2023 15:03-0500Diastolic blood pftbyyzk39 mm[Hg]MD Juve Mcpherson Work Phone: 1(282)067-[facility]03-01-2023 15:03-0500 Heart rate75 /minMD Juve Mcpherson Work Phone: 1(018)428-[address] [place], [place] 2593203-01-2023 15:03-0500 Respiratory rate18 /minMD Juve Mcpherson Work Phone: 1([phone]-[facility]03-01-2023 15:03-0500 SaO2% (BldA) [Mass fraction]96 %MD Juve Mcpherson Work Phone: [facility]03-01-2023 15:03-0500 Systolic blood ilarucxz334 mm[Hg]MD Juve Mcpherson Work Phone: 1([phone]-[facility]03-01-2023 14:24-0500 Body waltxkbbqza71.3 [degF]MD Juve Mcpherson Work Phone: 1([phone]-[facility]03-01-2023 13:54-0500 Inhaled oxygen flow rate10 L/minMD Juve Mcpherson Work Phone: [facility]03-01-2023 10:12-0500 Body fdvzav186.72 cmMD Juve Mcpherson Work Phone: [facility]03-01-2023 10:12-0500 Body mass index (BMI) [Ratio]28.8 kg/m2MD Juve Mcpherson Work Phone: [facility]03-01-2023 10:12-0500 Body ebksmx63.18 kgMD Juve Mcpherson Work Phone: [facility]02-27-2023 10:45-0500 Body wiputq638.72 cmThomas Olexa Other [employer] Other 02-27-2023 10:45-0500Body mass index (BMI) [Ratio] 27.21 kg/w9Fegfbn Olexa Other [employer] Other 02-27-2023 10:45-0500Body rdwfab92.19 kgThomas Olexa Other [employer] Other 01-16-2023 13:45-0500Body caluhu908.72 cmThomas Olexa Other [employer] Other 01-16-2023 13:45-0500Body mass index (BMI) [Ratio] 27.21 kg/x9Kynfmv Olexa Other [employer] Other 01-16-2023 13:45-0500Body vltmes77.19 kgThomas Olexa Other [employer] Other 01-13-2023 12:51-0500Body tlpter152.2 cmMohini Hook MD Work Phone: [facility]01-13-2023 12:51-0500Body rpsasg91.36 kgMohini Hook MD Work Phone: [facility]01-13-2023 12:51-0500Diastolic blood krpyixcb40 mm[Hg]Mohini Hook MD Work Phone: [facility]01-13-2023 12:51-0500Heart rate69 /min Mohini Hook MD Work Phone: [facility]01-13-2023 12:51-0500Systolic blood zxawplff026 mm[Hg]Mohini Hook MD Work Phone: [facility]01-10-2023 15:12-0500Body xqoztt897.72 cmReferring Provider [facility] Work Phone: 1([phone] 706-859601-10-2023 15:12-0500Body mass index (BMI) [Ratio]29.8 kg/l8Esnnevnhk Provider [facility] Work Phone: 1([phone] 680-818301-10-2023 15:12-0500Body surface area Derived from formula2.03 n1Xrridkqat Provider [facility] Work Phone: 1(557) 134-366001-10-2023 15:12-0500Body ezcfep90.91 kgReferring Provider [facility] Work Phone: 1([phone] 240-851112-19-2022 11:15-0500Body gobcul094.72 cmThomas Olexa Other [employer] Other 12-19-2022 11:15-0500Body mass index (BMI) [Ratio] 27.21 kg/q1Eiklda Olexa Other [employer] Other 12-19-2022 11:15-0500Body .19 kgThomas Olexa Other [employer] Other 09-19-2022 13:00-0400Body popday986.72 cmThomas Olexa Other [employer] Other 09-19-2022 13:00-0400Body mass index (BMI) [Ratio] 27.82 kg/v0Drdfbs Olexa Other [employer] Other 09-19-2022 13:00-0400Body ehrshb58.01 kgThomas Olexa Other [employer] Other 05-02-2022 11:15-0400Body .72 cmThomas Olexa Other [employer] Other 05-02-2022 11:15-0400Body mass index (BMI) [Ratio] 27.82 kg/d9Ilbagf Olexa Other [employer] Other 05-02-2022 11:15-0400Body mekatm21.01 kgThomas Olexa Other [employer] Other 12-07-2021 10:15-0500Body vsaigz983.72 cmThomas Olexa Other [employer] Other 12-07-2021 10:15-0500Body mass index (BMI) [Ratio] 28.43 kg/y5Dqfjpf Olexa Other [employer] Other 12-07-2021 10:15-0500Body .82 kgThomas Olexa Other [employer] Other Encounters Encounter DateEncounter TypeCare ProviderFacilityStart: 06-03-2025 End: 68-44-5242ihxrkjruraVrxg Naderer MD Work Phone: [facility] ClydeStart: 06-03-2025 End: 66-99-8014Tveqexf encounter procedureJuve Mcpherson MD-[facility] Work Phone: Start: 05-20-2025 End: 67-93-5203hswxabsbrgHbzk Naderer MD Work Phone: [facility] Work Phone: Start: 05-20-2025 End: 28-73-1367Basxthj encounter procedureDacristhian Patrick MD-[facility] Work Phone: Start: 04-21-2025 End: 69-67-2988Yewsob outpatient visit 25 minutesOdilia Ernandez [facility] Work Phone: uh [facility]ow[facility] HospitalComment on above:Primary hypertension (Primary Dx); 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; Cardiomyopathy, ischemic; Mixed hyperlipidemia; BMI 32.0-32.9,adult; Current smoker; Shortness of breathStart: 04-21-2025 End: 63-22-9426anqxpwalsdPFGOW K [facility] AmbulatoryStart: 04-13-2025 End: 30-53-2218wmiryojrmvUvlz Naderer MD Work Phone: [facility] Work Phone: Start: 04-13-2025 End: 65-57-9236Adseqne encounter procedureYvette Norris APRN [facility] Work Phone: Start: 03-26-2025 End: 99-16-8163Afiizw flowsKranthi Mcpherson MD Work Phone: noms CWM FMStart: 03-26-2025 End: 21-41-7945Jtxlih Gerard Mcpherson MD Work Phone: NOIQ CWM FMStart: 03-26-2025 End: 70-18-2681Eizlco outpatient visit 15 minutesJuve Mcpherson MD Work Phone: noms CWM FMComment on above:Major depressive disorder, recurrent episode, moderate (HCC) (Primary Dx); Chronic obstructive pulmonary disease, unspecified COPD type (HCC); Actinic keratosisStart: 03-26-2025 End: 43-94-2414dnepbypftzRAAM NADERERNot AvailableStart: 03-16-2025 End: 13-80-4572VewekuNcrkPastor Mcpherson MD Work Phone: noms CWM FMComment on above:Lumbar spondylosisRefill RequestStart: 03-10-2025 End: 52-96-1373zklqxxtqfjDDCBR K [facility] AmbulatoryStart: 03-10-2025 End: 08-71-1428Njzjap outpatient visit 25 minutesOdilia Ernandez APRN-AIR VALUE TESTER Work Phone: uh [facility] HospitalComment on above:Cardiomyopathy, ischemic (Primary Dx); 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; Primary hypertension; Mixed hyperlipidemia; BMI 33.0-33.9,adult; Shortness of breath; Current smoker; HypersomnolenceStart: 03-01-2025 End: 79-46-7510Pbhiriu encounter procedureOdilia Ernandez APRN-Lab [facility] Work Phone: Start: 03-01-2025 End: 93-17-1767ufxdafwrcjDhewxk L Rice Work Phone: [facility] Work Phone: Start: 02-25-2025 End: 85-83-5867xbmciaoczcBiauq K SmithFacility:[facility] Start: 06-84-2384Udp-patient / Non-visitChristopher Anthony Jimenez MD-[facility] Work Phone: Start: 02-25-2025 End: 38-29-7270Clxfhkjessica Mcpherson MD Work Phone: noms CWM FMStart: 02-25-2025 End: 01-61-9502Schswnjessica Mcpherson MD Work Phone: noms CWM FMStart: 02-25-2025 End: 56-92-9889qlfyxnvahbIOFS NADERERNot AvailableStart: 02-25-2025 End: 76-47-2609Izcllt outpatient visit 25 Zach Mcpherson MD Work Phone: noms CW FMComment on above:Benign essential hypertension (Primary Dx); Chronic HFrEF (heart failure with reduced ejection fraction) (HCC); Coronary artery disease involving cap[place] band coronary artery of [place] heart without angina pectoris ; Lumbar spondylosis; Recurrent depressive disorder, current episode mild ; Generalized anxiety disorder ; Actinic keratosisStart: 02-23-2025 End: 01-07-8773Zsxgch outpatient visit 25 [facility] incurablesEbenharsha Almanzar Steptoe YIELD IMPROVEMENT ENGINEER-AIR VALUE TESTER Work Phone: [facility] HospitalComment on above:Cardiomyopathy, ischemic (Primary Dx); 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; Mixed hyperlipidemia; Primary hypertension; BMI 31.0-31.9,adult; Current smoker; Shortness of breathStart: 02-23-2025 End: 41-25-1059umqrhudurwXQQYPNovant [facility] AmbulatoryStart: 02-16-2025 End: 60-70-5023EobueyKccb Naderer MD Work Phone: [facility]oms [facility] FMComment on above:Lumbar spondylosisStart: 01-29-2025 End: 60-36-9231Lndvtwvqm to same day surgery centerW Lan Quick DO-System Developer Associate Manager Work Phone: Start: 01-29-2025 End: 55-09-6666qywhslgeboOobq Naderer MD Work Phone: [facility] Work Phone: Start: 01-25-2025 End: 21-28-7678Xhbsqomic Result EncounterGeneric External Data ProviderNOMS External Department UnsolicitedStart: 01-25-2025 End: 66-16-4610Smmwrznuq Result EncounterGeneric External Data ProviderNOMS External Department UnsolicitedStart: 01-25-2025 End: 45-08-7594Tiabwtwjhn hospital visit by physicianClaudia Rogersa Nm Admin Room 1[facility] Hull FirelandsComment on above: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; Cardiomyopathy, ischemic; Primary hypertension; Mixed hyperlipidemiaStart: 01-25-2025 End: 46-42-8274zwfjjsriawNFQISUpper [facility] Medical Center Start: 01-21-2025 End: 48-85-2796Plxshjluigi Mcpherson MD Work Phone: noms CWM FMStart: 01-21-2025 End: 35-66-8116Sodrjq Gerard Mcpherson MD Work Phone: noms CWM FMStart: 01-21-2025 End: 83-52-9694Fkzihw outpatient visit 15 minutesJuve Mcpherson MD Work Phone: noms CWM FMComment on above:Acute on chronic HFrEF (heart failure with reduced ejection fraction) (HCC) (Primary Dx)Start: 01-21-2025 End: 49-76-9834qmtpzkalbcPBLR NADERERNot AvailableStart: 01-20-2025 End: 10-08-5120WqtzquBwcu Naderer MD Work Phone: noms CWM FMComment on above:Lumbar spondylosisStart: 01-07-2025 End: 20-51-4358vhdwrognlkPQFQLKI PROVIDERFacility:METROHealthStart: 01-06-2025 End: 13-65-3917Wsdkhjjqwm and management of inpatientJuve Mcpherson MD Work Phone: [facility] Work Phone: Start: 12-11-2024 End: 72-26-8108xkjwxbkwuwJCLBCJefferson Hospital AmbulatoryStart: 12-11-2024 End: 95-70-8740Gkmsri outpatient visit 25 Mukesh Ernandez APRN-AIR VALUE TESTER Work Phone: [facility]Com[facility] on above: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 (Primary Dx); Cardiomyopathy, ischemic; Primary hypertension; Mixed hyperlipidemia; BMI 31.0-31.9,adult; Current smokerStart: 12-09-2024 End: 81-54-1631avzwpjcdfaXFIHGCR D [facility] Start: 12-09-2024 End: 20-78-9539Gfpyii outpatient visit 15 minutesSaul Gonzales MD Work Phone: uh [facility] RehabilitationComment on above:Chronic maxillary sinusitis (Primary Dx); Nasal crusting; Chronic rhinitis; Nasal congestionStart: 11-26-2024 End: 46-57-1035Xbxbkvluigi Mcpherson MD Work Phone: NOMS CWM FMStart: 11-26-2024 End: 95-29-4212Fcashmjessica Mcpherson MD Work Phone: NOM[facility] CWM FMStart: 11-26-2024 End: 67-29-6264Mlgqnu outpatient visit 25 minutesJuve Mcpherson MD Work Phone: noMS CWM FMComment on above:Chronic HFrEF (heart failure with reduced ejection fraction) (CMS/HCC) (Primary Dx); Pulmonary nodules; Benign essential hypertension (CMS/HCC)Start: 11-26-2024 End: 72-61-7093ftyehqjmyoUSRX NADERERNot AvailableStart: 11-25-2024 End: 23-90-7381PjlblmLcth Naderer MD Work Phone: noms CWM FMComment on above:Lumbar spondylosisStart: 11-18-2024 End: 53-61-6865Bgbukfteqi and management of inpatientJuve Mcpherson MD Work Phone: [facility] Work Phone: Start: 10-26-2024 End: 89-03-2021StpzqzXyqh Naderer MD Work Phone: NOMS CWM FMComment on above:Lumbar spondylosisStart: 09-28-2024 End: 39-19-5876JmmajoXbeqyba LykinsNOMS CWM FMComment on above:Lumbar spondylosisStart: 08-27-2024 End: 83-55-3591slqtyecixjFkdh Naderer MD Work Phone: [facility] Work Phone: Start: 08-27-2024 End: 58-43-8749Axmczqc encounter procedureJuve Mcpherson MD Work Phone: [facility] Work Phone: Start: 08-26-2024 End: 74-18-3192Elnltr outpatient visit 25 minutes[facility] Work Phone: uh [facility]ow[facility] HospitalComment on above: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; History of PTCA; ST elevation myocardial infarction (STEMI), unspecified artery (Multi); Congestive heart failure, NYHA class 2 and ACC/AHA stage C; Cardiomyopathy, ischemic; Primary hypertension; Mixed hyperlipidemia; BMI 31.0-31.9,adult; Current smokerStart: 08-26-2024 End: 59-66-3099ryawjxnlbpMKTGWJZMemorial Satilla Health AmbulatoryStart: 08-12-2024 End: 14-52-2170Dpnukf outpatient visit 15 minutesSaul Gonzales MD Work Phone: uh [facility] RehabilitationComment on above:Chronic maxillary sinusitis (Primary Dx); Nasal crusting; Chronic ethmoidal sinusitis; Nasal congestion with rhinorrheaStart: 08-12-2024 End: 36-77-4703tpvllxdmyxZLHLMRU D RODRIGUEZPromedica [facility] Start: 08-12-2024 End: 64-24-4645Grdhjepgk Result EncounterGeneric External Data ProviderNOMS External Department UnsolicitedStart: 08-12-2024 End: 88-11-1181Tbfvqjvvl Result EncounterGeneric External Data ProviderNOMS External Department UnsolicitedStart: 07-30-2024 End: 80-89-1156ZzpexkTimv Naderer MD Work Phone: [facility] [place] FMComment on above:Lumbar spondylosisStart: 07-21-2024 End: 01-11-3460Mswocmu encounter procedureJuve Mcpherson MD Work Phone: [facility] Work Phone: Start: 07-21-2024 End: 09-28-7275rzstdyxpclYoytvj OlexaFacility:[facility] Start: 34-43-1434Tcy-patient / Non-visitJuve Mcpherson MD Work Phone: [facility] Work Phone: Start: 07-15-2024 End: 54-67-9108Rhhotepcw to same day surgery centerJuve Mcpherson MD Work Phone: [facility]: 07-[facility]2024 End: 07-84-2021zitthalzztMdqzzy OlexaFacility:[facility] Start: 07-09-2024 End: 04-88-0949pyopvzgsjfHomgbr OlexaFacility:[facility] Start: 07-09-2024 End: 51-08-5038Gqmgcgfdz for other preprocedural examinationJuve Mcpherson MD Work Phone: [facility] [facility]: 07-09-2024 End: 25-69-8015Dpgprle encounter procedureJuve Mcpherson MD Work Phone: [facility] Work Phone: Start: 07-09-2024 End: 23-59-4440Vchqfti encounter procedureJuve Mcpherson MD Work Phone: [facility] Work Phone: Start: 07-09-2024 End: 75-54-2938ighzqsxtrvSgfcoc OlexaFacility:[facility] Start: 37-41-3397Hvinqgsfh for preprocedural laboratory examinationThomas Olexa [facility] Physician [facility] 07-07-2024 End: 73-55-9259Fnpoyo Gerard Mcpherson MD Work Phone: [facility] FMStart: 07-07-2024 End: 93-34-7011Iyusaq Gerard Mcpherson MD Work Phone: [facility] FMStart: 07-07-2024 End: 01-12-9335Wrkplu outpatient visit 25 minutesJuve Mcpherson MD Work Phone: [facility] FMComment on above:Preoperative clearance (Primary Dx); Primary osteoarthritis of left shoulder; Benign essential hypertension (CMS/HCC); Coronary artery disease involving capitan grande band coronary artery of capitan grande band heart without angina pectoris (CMS/HCC); Dyshidrotic eczemaStart: 07-07-2024 End: 63-82-5238Eltzzkvahtpt Brent Mcpherson MD Work Phone: [facility] Work Phone: Start: 07-07-2024 End: 83-86-9675fcnkttszlzSXWZ NADERERNot AvailableStart: 07-06-2024 End: 03-31-1170PtyrrnZthl Naderer MD Work Phone: [facility] FMComment on above:Lumbar spondylosisStart: 06-09-2024 End: 82-60-9010EvbmqjLlln Naderer MD Work Phone: [facility] FMComment on above:Lumbar spondylosisStart: 05-27-2024 End: 30-29-4260Pfuavu outpatient visit 15 minutesSaul Gonzales MD Work Phone: uh [facility] RehabilitationComment on above:Chronic maxillary sinusitis (Primary Dx); Nasal congestion; Rhinorrhea; Nasal crustingStart: 05-27-2024 End: 73-91-0519Aeciujaho Result EncounterGeneric External Data ProviderNOMS External Department UnsolicitedStart: 05-27-2024 End: 19-00-9818Frbozjbnm Result EncounterGeneric External Data ProviderNOMS External Department UnsolicitedStart: 05-11-2024 End: 30-57-5021NuyxzxQgti Naderer MD Work Phone: [facility] FMComment on above:MDD (major depressive disorder), recurrent episode, moderate (CMS/HCC); Lumbar spondylosisStart: 05-05-2024 End: 53-60-4371Pmjnjdldf Result EncounterJuve Mcpherson MD Work Phone: [facility] External Department UnsolicitedStart: 05-05-2024 End: 36-03-8009Jguvsfulo Result EncounterJuve Mcpherson MD Work Phone: [facility] External Department UnsolicitedStart: 04-23-2024 End: 59-97-0864Vgxpgd flowsKranthi Mcpherson MD Work Phone: [facility] FMStart: 04-23-2024 End: 91-26-2874Zcksfc Gerard Mcpherson MD Work Phone: [facility] FMStart: 04-23-2024 End: 89-74-3195Yhrzbb outpatient visit 25 minutesJuve Mcpherson MD Work Phone: [facility] FMComment on above:Benign essential hypertension (CMS/HCC) (Primary Dx); Recurrent depressive disorder, current episode mild (CMS/HCC); Generalized anxiety disorder (CMS/HCC); Lumbar spondylosis; Ischemic cardiomyopathy (CMS/HCC); Prediabetes; Encounter for long-term current use of medication; Dyslipidemia (CMS/HCC); Gastroesophageal reflux disease without esophagitis; Obesity (BMI 30-39.9); Screening PSA (prostate specific antigen); Colon cancer screeningStart: 04-23-2024 End: 84-15-1174ubcerzfygfBGYQ NADERERNot AvailableStart: 04-13-2024 End: 75-34-1739TmbshdHoth Naderer MD Work Phone: [facility] FMComment on above:Lumbar spondylosisStart: 03-30-2024 End: 01-46-5376QskvbbZdresgwr Tsai MD Work Phone: RheumatologyComment on above:Refill RequestStart: 03-14-2024 End: 40-64-5442Jlfczx follow up visit related to original Aurea Gonzales MD Work Phone: uh [facility] CenterComment on above:Chronic maxillary sinusitis (Primary Dx); Chronic ethmoidal sinusitisStart: 51-41-1906sngrztlyptCHTTTFU D RODRIGUEZ [facility]: 02-10-2024 End: 86-56-7759otyrmraassQZQHEG BURGEUC Medical Centertart: 02-10-2024 End: 95-50-4076szxrxgloniDOTMNUB [facility]: 02-10-2024 End: 60-68-0241Pcxjkdvigg hospital visit by physicianc Tan0619 Cr Nonv1 Holter/Ecg ResourceAtlantiCare [facility] MatherComment on above:Chronic maxillary sinusitisStart: 01-15-2024 End: 16-02-5278Efkurk outpatient visit 25 minutesSaul Gonzales MD Work Phone: uh [facility] RehabilitationComment on above:Chronic maxillary sinusitis (Primary Dx); Deviated nasal septum; Nasal congestion; Chronic ethmoidal sinusitisStart: 26-92-2694Wjzzakp encounter statusMD Juve Mcpherson Work Phone: [facility]: 01-14-2024 Preprocedural examination doneJuve Mcpherson MD Work Phone: [facility]tart: 01-14-2024 End: 35-33-4805zevrrzgoquRL Marc Naderer Work Phone: [facility] Work Phone: Start: 01-14-2024 End: 23-48-8087Ltywrnh encounter procedureMD Juve Mcpherson Work Phone: [facility] Work Phone: Start: 12-03-2023 End: 79-17-2241Vktxvz outpatient visit 25 minutesWibinm S Abdelrahman DO Work Phone: uh [facility] HospitalComment on above: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 (CMS-HCC); ST elevation myocardial infarction (STEMI), unspecified artery (Multi); Congestive heart failure, NYHA class 2 and ACC/AHA stage C (Multi); Cardiomyopathy, ischemic; Primary hypertension; Mixed hyperlipidemia; Arteriosclerosis of arterial coronary artery bypass graft; Currently attempting to quit smoking; BMI 31.0-31.9,adult; Other fatigue; Coronary arteriography abnormalStart: 11-26-2023 End: 24-89-8441dakqeezoeaDP Juve Vasquezamadou Work Phone: [facility] Work Phone: Start: 11-26-2023 End: 88-13-4655Cszuuay encounter procedureMD Juve Vasquezamadou Work Phone: [facility]-Lab [address] [place] Work Phone: Start: 11-13-2023 End: 96-55-6296Sucrbo outpatient visit 15 Mukesh Ernandez YIELD IMPROVEMENT ENGINEER-AIR VALUE TESTER Work Phone: uh [facility]ment on above:Congestive heart failure, NYHA class 2 and ACC/AHA stage C (CMS/HCC) (Primary Dx); Hypervolemia, unspecified hypervolemia type; 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 (CMS/HCC); Primary hypertension; Mixed hyperlipidemia; BMI 31.0-31.9,adult; Currently attempting to quit smokingStart: 11-05-2023 End: 23-90-6141lvnmiixrvhFO Juve Vasquezamadou Work Phone: [facility] Work Phone: Start: 11-05-2023 End: 14-96-2631Gxnuyan encounter procedureMD Juve Alexhussein Work Phone: [facility]-Ultrasound [place] Work Phone: Start: 10-23-2023 End: 08-31-6106Kiphrj outpatient visit 15 Mukesh Ernandez YIELD IMPROVEMENT ENGINEER-AIR VALUE TESTER Work Phone: uh [facility] HospitalComment on above:Edema of left upper arm (Primary Dx); Hypervolemia, unspecified hypervolemia type; Congestive heart failure, NYHA class 2 and ACC/AHA stage C (CMS/HCC); Currently attempting to quit smokingStart: 10-23-2023 End: 83-64-2966oeprmzrpeyQX Juve Mcpherson Work Phone: [facility] Work Phone: Start: 10-23-2023 End: 70-67-8909Yfwsnol encounter procedureMD Juve lAexhussein Work Phone: [facility]-Lab [address] [place] Work Phone: Start: 10-15-2023 End: 98-65-6641Kunmyw outpatient visit 15 joseOdilia Ernandez YIELD IMPROVEMENT ENGINEERStarbak Work Phone: uh [facility] HospitalComment on above:Edema of left upper arm (Primary Dx); BMI 33.0-33.9,adult; Currently attempting to quit smoking; Coronary arteriography abnormal; Acute systolic heart failure (CMS/HCC); Hypervolemia, unspecified hypervolemia typeStart: 07-16-2023 End: 86-81-2284icalhenocqVK Juve Alexhussein Work Phone: [facility] Work Phone: Start: 07-16-2023 End: 21-48-6208Fdufwym encounter procedureMD Juve Johnsonhussein Work Phone: [facility]-Lab [address] [place] Work Phone: Start: 07-16-2023 End: 04-56-3710Wzoechuxfx hospital visit by Miguel Houser Echo/[facility]asc [facility] 2[facility]Com[facility] on above:Cardiomyopathy, ischemicStart: 07-09-2023 End: 94-36-7290uuqzpucsvgRN Marc Naderer Work Phone: [facility] Work Phone: Start: 07-09-2023 End: 80-47-2370Derbsqs encounter procedureMD Juve Mcpherson Work Phone: [facility] Work Phone: Start: 07-02-2023 End: 28-43-3255Qziuyg outpatient visit 25 minutesOdilia Ernandez YIELD IMPROVEMENT ENGINEER-AIR VALUE TESTER Work Phone: [facility] on above: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 (CMS/HCC) (Primary Dx); Cardiomyopathy, ischemic; Primary hypertension; Mixed hyperlipidemia; BMI 30.0-30.9,adult; Shortness of breath; Former smokerStart: 06-21-2023 End: 48-49-4627Bgdhdbrdrv hospital [facility] Charisse5f X-Ray [address] [place] [address] BolwellComment on above: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 (CMS/HCC)Start: 06-21-2023 End: 98-19-8211Slokrz follow up visit related to original Bran Trevino MD PhD Work Phone: [facility] MatherComment on above: 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, unspecified whether capitan grande band or transplanted heart (CMS/HCC) (Primary Dx); S/P CABG x 2Start: 06-18-2023 End: 47-78-5325Aypuyd outpatient visit 40 minutesAlyssa Quick DO Work Phone: [facility] on above:ST elevation myocardial infarction (STEMI), unspecified artery (CMS/HCC); 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, unspecified whether capitan grande band or transplanted heart (CMS/HCC); Hypertension, unspecified type; Coronary arteriography abnormal; Acute systolic heart failure (CMS/HCC); S/P CABG x 2; HFrEF (heart failure with reduced ejection fraction) (CMS/HCC); Acute SC, anterior wall (CMS/HCC)Start: 05-29-2023 End: 45-13-1392Anhrilinxi hospital visit by physicianFair[facility] Lsg7293 Cr Nonv1 Holter/Ecg [facility] MatherStart: 42-76-0035Udqzb UpdateReferring Provider UnknownMP-[facility] [address] DO Work Phone: Start: 05-03-2023 End: 61-35-2054Tqnnzyn encounter statusTadana Braun MD Work Phone: [facility] Work Phone: Start: 60-35-1723teherqwigaNa. Alyssa Quick Facility:[id number]: 05-03-2023 End: 04-28-9840Kvjyxdfdey and management of inpatientTadana Braun MD Work Phone: [facility] [place] 3Start: 26-33-5777ljsgbbknbvMQN UNKNOWNFacility:9090Start: 71-28-1724Gyscjw outpatient new 45 minutesReferring Provider GjihczeJM-Djzjfux-Vuayauqp [facility] [address] Work Phone: Start: 06-26-0327hnmumsrsnuVr. Luzmaria Gong JrFacility:[id number]: 04-23-2023 End: 54-70-4281ubxnhmhswvXrafvn Olexa Other [place] [employer] Other Start: 36-17-1937Pkiccfkfx for other preprocedural examinationThomas OlexaFPG [place] OrthopedicsStart: 90-78-8180Njquxc outpatient visit 25 minutesThomas OlexaFPG [place] OrthopedicsStart: 04-03-2023 Telephone encounterMohini Hook MD Work Phone: RheumatologyComment on above:ResultsStart: 04-01-2023 ambulatoryLisa Dempsey RT(R)RadiologyComment on above:Radio Gen RMPStart: 04-01-2023 End: 42-44-6079Aqnrywl encounter procedureMohini Hook MD Work Phone: RheumatologyComment on above:Secondary osteoarthritis of multiple sites (Primary Dx); Vitamin B12 deficiency; Vitamin D deficiency; Chronic pain of both knees; Bilateral hand pain; Rotator cuff arthropathy, left; Chronic pain of both shoulders; Chronic bilateral low back pain without sciatica; Chronic hip pain, bilateral; Raynaud's phenomenon without gangrene; Family history of rheumatoid arthritis; Family history of goutStart: 04-01-2023 End: 40-10-2518Yqtruysmie hospital visit by physicianXr [facility] LorainRadiology Comment on above:Chronic pain of both knees [M25.561, M25.562, G89.29]Start: 01-28-2023 End: 15-46-2663swroxucqhoCjbjvl H TimmisFacility:FTMCStart: 01-28-2023 End: 67-39-3627Ygnszjp encounter procedureLuzmaria [facility] Start: 01-22-2023 End: 19-32-0181lbfmgzxwxqLwxtuk Olexa Other [employer] Other Start: 02-81-9905Pqdkzd outpatient visit 15 minutes Elsie Houser OrthopedicsStart: 12-28-2022 End: 03-62-6650Jrflqtqeiy hospital visit by physicianXr Katius[place] 1 Work Phone: RadiologyComment on above:Left shoulder pain, unspecified chronicity [M25.512]Start: 11-26-2022 End: 40-05-4752symdcgiaajCoqsgx Olexa Other [employer] Other Start: 15-67-3740Qgvwjj follow up visit related to original pxThomas Ashley Houser OrthopedicsStart: 11-20-2022 End: 01-54-0539nwfwineiarKZJaz THOMPSONacility:S6Npdsi: 84-95-8089tasidrzjro DR JUVE THOMPSONacility:E8Rbvlf: 10-11-2022 End: 61-34-3891aszlyttbgnAzqxeu Olexa Other [facility] Sty[facility] Other Start: 70-52-9984Dupfpa follow up visit related to original pxThomas OlexaFPG [place] OrthopedicsStart: 49-76-5690fkvnahtmueVCDXDF OLEXAFacility:G8Czpoz: 64-22-1174Fmijwzjns encounterMohini Hook MD Work Phone: RheumatologyComment on above:ResultsStart: 10-03-2022 End: 35-68-2663Rmkubqgcf to same day surgery centerMD Juve Mcpherson Work Phone: [facility] CampusStart: 10-03-2022 End: 66-67-7560xbyklqubjoBE Juve Mcpherson Work Phone: [facility] Work Phone: Start: 10-01-2022 End: 21-01-8894eiwldcyopzGO DOCTOR [facility] Stylect Other Start: 41-10-3081Dtiqufzga for other preprocedural examinationThomas OlexaFPG [place] OrthopedicsStart: 79-10-5472Jifyqm outpatient visit 25 minutesThomas OlexaFPG [place] OrthopedicsStart: 10-01-2022 Telephone encounterThomas OlexaFPG [place] OrthopedicsStart: 09-20-2022 End: 71-26-1798qponpmdpnjNQ Juve Mcpherson Work Phone: [facility] Work Phone: Start: 09-20-2022 End: 44-81-2587Wyjznhu encounter procedureMD Juve Mcpherson Work Phone: [facility] Work Phone: Start: 24-27-7278UjvmrqJazcnseb Tsai MD Work Phone: RheumatologyComment on above:Refill RequestStart: 08-20-2022 End: 91-66-6033mexgineqnjFomyrj Olexa Other [employer] Other Start: 72-27-7690Jfouhfhgh for other preprocedural examinationThhaleigh OlexaFPBrittany Houser OrthopedicsStart: 93-97-4617Wntbej outpatient visit 25 minutesThomas OlexaFPG [facility] OrthopedicsStart: 08-18-2022 Telephone encounterMohini Hook MD Work Phone: RheumatologyComment on above:ResultsStart: 08-17-2022 ambulatoryTrkale Hathaway RT(R)RadiologyComment on above:Radiology XRStart: 08-17-2022 End: 26-88-2447Jeierqg encounter procedureTrkale Hathaway RT(R)[facility] Comment on above:Secondary osteoarthritis of multiple sites (Primary Dx); Elevated LFTs; [...] history of rheumatoid arthritis; Family history of goutStart: 08-17-2022 End: 10-56-7691Ffoutudhcy hospital visit by physicianKind[facility]ainRadiology Comment on above:Bilateral hand pain [M79.641, M79.642]Start: 81-05-1259Vvizbvb encounter procedureReferring Provider [facility] Work Phone: Start: 06-58-0300uebyifdfxpRfulatoryDr. Guevara Coello Facility:[id number]: 07-23-2022 End: 93-26-7532nmesgfdlaqUvublf Olexa Other [employer] Other Start: 43-17-5996Pfcneb outpatient visit 25 minutes Elsie SilvanaG [place] OrthopedicsStart: 04-23-2022 End: 86-80-8527tzfmzwnjgsZqnjcq Olexa Other [employer]Tr[employer] Other Start: 98-45-9807Sjcpcu outpatient visit 25 minutes Elsie Houser OrthopedicsStart: 04-06-2022 End: 51-14-5629Eyrtren encounter procedureMD Juve Mcpherson Work Phone: [facility]-MRI Strub RdStart: 03-21-2022 End: 30-44-7424afzhooximvOS JUVE Todd NADERERFacility:E0Yulwj: 03-01-2022 End: 64-47-8170Oactpyl encounter procedure Juve Johnsonhussein Work Phone: [facility]-XRay [place] [facility] Start: 12-04-2021 End: 50-52-8101olwpyurpwhPviasj Olexa Other [employer] Other Start: 35-62-9856Svmeeh outpatient visit 15 minutes Elsie Houser OrthopedicsStart: 07-11-2021 End: 15-17-8069nymjbqfcgoRslxsr Olexa Other [employer] Other Start: 45-52-1116Vgtudf outpatient visit 15 minutes Elsie Ashley [facility] Procedures DateProcedureProcedure DetailPerforming ClinicianStart: 95-12-7966XY LHC & COR Angio w/graftsJuve Mcpherson MD Work Phone: Start: 53-56-5753KTNTLNV STRESS TEST EXERCISE (CARD) Generic External Data ProviderStart: 54-98-1874Kpstayng identified in Blood by CultureJuve Mcpherson MD Work Phone: Start: 81-16-5955Mrunq nucleic acid assayJuve Mcpherson MD Work Phone: Start: 47-19-0502ZT of head without contrastJuve Mcpherson MD Work Phone: Start: 81-90-8619Bjqdb chest X-rayJuve Mcpherson MD Work Phone: Start: 33-08-0258UWYZK CULTURE, AEROBIC AND ANAEROBIC W/GRAM STAINSaul Gonzales MD Work Phone: Start: 01-18-1607Gwgol chest X-rayJuve Mcpherson MD Work Phone: Start: 40-59-9282Kysyjuum identified in Blood by CultureJuve Mcpherson MD Work Phone: Start: 91-02-4471Clvgw nucleic acid assayJuve Mcpherson MD Work Phone: Start: 22-05-7758Iipur X-ray of left shoulderJuve Mcpherson MD Work Phone: Start: 07-00-0634Lnwszib of percutaneous transluminal coronary angioplastyHistory of PTCAWilliam S Abdelrahman DO Work Phone: Start: 00-20-1641Iih bact xcpt urine blood/stool aerobic isolSaul Gonzales MD Work Phone: Start: 31-93-3787VF MISCELLANEOUS CULT./SM.BACT. Generic External Data ProviderStart: 28-80-5750Pbedf X-ray of left shoulderJuve Mcpherson MD Work Phone: Start: 76-02-2433Sbbqm X-ray of left shoulderJuve Mcpherson MD Work Phone: Start: 32-63-8619Dfznktajwn total arthroplasty of left shoulderJuve Mcpherson MD Work Phone: Start: 94-84-0932Zhbpn X-ray of left shoulderJuve Mcpherson MD Work Phone: Start: 53-45-0509Mls bact xcpt urine blood/stool aerobic isolSaul Gonzales MD Work Phone: Start: 75-97-3817VX MISCELLANEOUS CULT./SM.BACT. Generic External Data ProviderStart: 30-98-7297MUL CBC WITH AUTO DIFFMarc Norma PINEDA Work Phone: Start: 81-96-1479Npkms X-ray of left shoulderMD Juve Mcpherson Work Phone: Start: 89-16-5057Vrmpll scan veins of upper limbMD Juve Mcpherson Work Phone: Start: 16-46-2444Wbzyfququj exam chest 2 viewsOttoniel Trevino MD PhD Work Phone: Start: 94-47-0548Uai routine ecg w/least 12 lds trcg only w/o i&rVeronica Freddy Cid YIELD IMPROVEMENT ENGINEER-AIR VALUE TESTER Work Phone: [phone]: 56-90-4284Yjqam function panelSnoelle Perez YIELD IMPROVEMENT ENGINEER-DATABASE MARKETING SPECIALIST Work Phone: [phone]: 52-26-6593XSFIFO CLEARANCE TECHNIQUESOttoniel Trevino MD PhD Work Phone: [phone]: 47-08-9363FDJOE OXIMETRY, Uriel Cid YIELD IMPROVEMENT ENGINEER-AIR VALUE TESTER Work Phone: [phone]: 01-49-0522PXNPKH CLEARANCE TECHNIQUESOttoniel Trevino MD PhD Work Phone: [phone]: 78-63-5280FYJNP OXIMETRY, Uriel Cid YIELD IMPROVEMENT ENGINEER-AIR VALUE TESTER Work Phone: [phone]: 39-43-0949JBOPH OXIMETRY, SPOTShonna Cid YIELD IMPROVEMENT ENGINEER-AIR VALUE TESTER Work Phone: [phone]: 79-88-4053Wntti function Naman Perez APRN-DATABASE MARKETING SPECIALIST Work Phone: [phone]: 08-55-1897RMLDJ OXIMETRY, Uriel Cid YIELD IMPROVEMENT ENGINEER-AIR VALUE TESTER Work Phone: [phone]: 40-67-1985BEVUH OXIMETRY, SPOTShonna Cid YIELD IMPROVEMENT ENGINEER-[facility] Work Phone: [phone]: 54-48-1917TNIOR OXIMETRY, SPOTShonna Cid YIELD IMPROVEMENT ENGINEER-[facility] Work Phone: [phone]: 53-02-8769Yqaln function panelSarasarah Perez YIELD IMPROVEMENT ENGINEER-[facility] Work Phone: [phone]: 42-87-1375Hnnz tthrc r-t 2d w/wom-mode compl spec&colr dVeroila Cid YIELD IMPROVEMENT ENGINEER-[facility] Work Phone: [phone]: 59-79-0864Fux-scan xtr veins unilateral/limited studySamanjuan Soto Edgard [facility] Work Phone: [phone]: 73-00-4368BOMNR OXIMETRY, SPOTCarrielashay Cid [facility] Work Phone: [phone]: 91-05-3085RRNFB OXIMETRY, SPOTShonna Cid [facility] Work Phone: [phone]: 77-46-1459NFCIZ OXIMETRY, SPOTCarrielashay Cid YIELD IMPROVEMENT ENGINEER-[facility] Work Phone: [phone]: 00-73-1669JDNBD OXIMETRY, SPOTShonna Cid [facility] Work Phone: Start: 52-60-3701OMULOW CLEARANCE TECHNIQUESShonna Cid YIELD IMPROVEMENT ENGINEER-[facility] Work Phone: [phone]: 63-77-0727JWGTD OXIMETRY, SPOTShonna Cid YIELD IMPROVEMENT ENGINEER-[facility] Work Phone: [phone]: 56-32-4481Qztaa function panelShonna Cid YIELD IMPROVEMENT ENGINEER-[facility] Work Phone: [phone]: 85-53-7370FQYNA OXIMETRY, SPOTShonna Cid YIELD IMPROVEMENT ENGINEER-[facility] Work Phone: Start: 87-75-4294ARRVL OXIMETRY, SPOTShonna Cid YIELD IMPROVEMENT ENGINEER-[facility] Work Phone: [phone]: 29-58-4385WTITM OXIMETRY, SPOTAlexijah Cid YIELD IMPROVEMENT ENGINEER-[facility] Work Phone: [phone]: 98-57-7790DDWRU OXIMETRY, SPOTAlexijah Cid YIELD IMPROVEMENT ENGINEER-[facility] Work Phone: [phone]: 47-31-8675VJRIV OXIMETRY, SPOTVercharityjah Cid YIELD IMPROVEMENT ENGINEER-[facility] Work Phone: [phone]: 39-70-1065OAGQHY CLEARANCE TECHNIQUESVercharityjah Cid YIELD IMPROVEMENT ENGINEER-[facility] Work Phone: [phone]: 91-66-1680GGRDT OXIMETRY, SPOTVercharityjah Cid YIELD IMPROVEMENT ENGINEER-[facility] Work Phone: [phone]: 51-04-2910Bllca function panelVercharityjah Cid YIELD IMPROVEMENT ENGINEER-[facility] Work Phone: [phone]: 06-27-9539IATRBV CLEARANCE TECHNIQUESVercharityjah Cid YIELD IMPROVEMENT ENGINEER-[facility] Work Phone: [phone]: 06-31-0289LYEPG OXIMETRY, SPOTVeronicjah Freddy Cid YIELD IMPROVEMENT ENGINEER-[facility] Work Phone: [phone]: 05-41-6373Tfhpkjy quantitative blood xcpt reagent Chetna Trevino MD PhD Work Phone: [phone]: 51-23-0542Iooquzebxd exam chest 2 viewsVercharityjah Cid YIELD IMPROVEMENT ENGINEER-[facility] Work Phone: [phone]: 64-90-9261MOSFRV CLEARANCE TECHNIQUESAlexijah Cid YIELD IMPROVEMENT ENGINEER-[facility] Work Phone: [phone]: 25-54-2164WUEIJ OXIMETRY, SPOTAlexijah Cid YIELD IMPROVEMENT ENGINEER-[facility] Work Phone: [phone]: 74-02-2080GPWJYDH RBCJulie Ashlee YIELD IMPROVEMENT ENGINEER-[facility] Work Phone: [phone]: 20-71-4497Iizuzcy quantitative blood xcpt reagent Chetna Trevino MD PhD Work Phone: [phone]: 58-10-2699Bxjvn function panelTrent Rocha YIELD IMPROVEMENT ENGINEER-[facility] Work Phone: [phone]: 61-75-4181Aspgzcq quantitative blood xcpt reagent Chetna Trevino MD PhD Work Phone: [phone]: 39-83-4013Dcvtvtp quantitative blood xcpt reagent Chetna Trevino MD PhD Work Phone: [phone]: 26-23-9544Uejmhlzlxa exam chest single viewZil Calderon DO Work Phone: [phone]: 30-65-1993Nasea function panelKayley Souza YIELD IMPROVEMENT ENGINEER-AIR VALUE TESTER Work Phone: [phone]: 61-41-2793Httmqpu quantitative blood xcpt reagent Chetna Trevino MD PhD Work Phone: [phone]: 05-09-2023 End: 02-91-3998Owlrxktq Chantal Rocha YIELD IMPROVEMENT ENGINEER-[facility] Work Phone: [phone]: 24-98-2600CJYSGAFWRREzxuuyen G Edgard YIELD IMPROVEMENT ENGINEER-[facility] Work Phone: [phone]: 93-75-2348Inzfpcd quantitative blood xcpt reagent Chetna Trevino MD PhD Work Phone: [phone]: 34-87-8435Kadcjvz quantitative blood xcpt reagent Chetna Trevino MD PhD Work Phone: [phone]: 05-09-2023 End: 61-17-0339Cpbxt function panelZil Calderon DO Work Phone: [phone]: 65-82-7572Vpgcrhephq exam chest single viewZil Calderon DO Work Phone: [phone]: 70-83-1039Facgcss quantitative blood xcpt reagent Chetna Trevino MD PhD Work Phone: [phone]: 66-66-9880Zuvositn Mely Trevnio MD PhD Work Phone: [phone]: 56-03-2111Fuxamxi quantitative blood xcpt reagent stripOttoniel Trevino MD PhD Work Phone: [phone]: 02-03-7086Cofgiyabyc exam chest single view Trent Mai Josefina YIELD IMPROVEMENT ENGINEER-[employer] Work Phone: [phone]: 81-94-2967Enhwlsahtz exam abdomen 1 viewTrent Mai Josefina [facility] Work Phone: [phone]: 85-09-3830Embekpj quantitative blood xcpt reagent Chetna Trevino MD PhD Work Phone: [phone]: 74-10-1432Krzxv blood ph direct jass xcpt pulse oximitrVaibhav Trevino MD PhD Work Phone: [phone]: 05-08-2023 End: 21-26-8363Ngmwgqub Chantal Rocha [facility] Work Phone: [phone]: 24-95-3479Pwpjsbe quantitative blood xcpt reagent Chetna Trevino MD PhD Work Phone: [phone]: 05-08-2023 End: 36-59-1058Dlydzhcxmfo time Dom Trevino MD PhD Work Phone: [phone]: 14-74-4257Zt guidance needle placement img s&i Rudy Plummer MD Work Phone: [phone]: 16-20-7580Srowb blood ph direct jass xcpt pulse oximitrVaibhav Trevino MD PhD Work Phone: [phone]: 05-08-2023 End: 89-60-6753Dtmrgofwiwh time Dom Trevino MD PhD Work Phone: [phone]: 05-08-2023 End: 28-48-7749Iglcxjajnicola Trevino MD PhD Work Phone: [phone]: 05-08-2023 End: 56-77-8196Ablskoujfww time Dom Trevino MD PhD Work Phone: [phone]: 15-79-9621UHWEPXP PARAMETERSZil Calderon DO Work Phone: [phone]: 27-51-3621Gduei function panelOttoniel Trevino MD PhD Work Phone: [phone]: 82-01-1608Typwfiqmrb exam chest single viewZil Calderon DO Work Phone: [phone]: 42-19-3458Ruovjah quantitative blood xcpt reagent stripOttoniel Trevino MD PhD Work Phone: [phone]: 55-09-5483Ldeerypysq exam chest single viewZil Calderon DO Work Phone: [phone]: 42-23-6382Lyjumdj quantitative blood xcpt reagent stripOttoniel Trevino MD PhD Work Phone: [phone]: 39-86-8637Vejjzhh ionizedOttoniel Trevino MD PhD Work Phone: [phone]: 05-07-2023 End: 80-95-2947Adqedfrh bldZil Calderon DO Work Phone: [phone]: 10-81-2098Vugdfxnqzv exam chest single viewZil Calderon DO Work Phone: [phone]: 71-68-3312JTLLMIK PARAMETERSZil Calderon DO Work Phone: [phone]: 05-07-2023 End: 11-71-2415Wehaooocntg time Dom rTevino MD PhD Work Phone: [phone]: 05-07-2023 End: 29-71-8480Lbggpkdpiar time Dom Trevino MD PhD Work Phone: [phone]: 92-11-4945Sjqkrslcpzf time Dom Trevino MD PhD Work Phone: [phone]: 49-21-6570Woceybz quantitative blood xcpt reagent stripTrekelly Toledo MD Work Phone: [phone]: 96-77-9065Ihfivuoflgpvmigkl quantitativeTrevor Jack Toledo MD Work Phone: [phone]: 72-94-4794Ywvlntj quantitative blood xcpt reagent stripTrevor Jack Toledo MD Work Phone: [phone]: 83-53-8581Wyppjqzkga exam chest single view Anderson Martins MD Work Phone: [phone]: 02-61-1155XTHEKZSVHL INTRAOPERATIVE TEERicki L Pad DO Work Phone: [phone]: 00-35-2091Ebzju typing serologic rh (d)Jeanette Amadou Perez YIELD IMPROVEMENT ENGINEER-DATABASE MARKETING SPECIALIST Work Phone: [phone]: 05-07-2023 End: 19-45-3949Ysnou function panelMaty Chambers MD Work Phone: [phone]: 52-70-5923Znstmuk quantitative blood xcpt reagent stripTrevor Jack Toledo MD Work Phone: [phone]: 55-93-7062Vehkvvt quantitative blood xcpt reagent stripTrevor Jack Toledo MD Work Phone: [phone]: 61-13-1914Bjzrky scan extracranial art compl bi studyJulie Ashlee YIELD IMPROVEMENT ENGINEER-AIR VALUE TESTER Work Phone: [phone]: 38-15-6399Qmq-scan xtr veins complete bilateral studyJulie Ashlee YIELD IMPROVEMENT ENGINEER-AIR VALUE TESTER Work Phone: [phone]: 07-72-5575Gpmurty quantitative blood xcpt reagent stripTrevor Jack Toledo MD Work Phone: [phone]: 36-24-4694Gnvhlkhrbvziz metabolic panelJuan Zamora MD Work Phone: [phone]: 64-07-2377Rjuga of troponin quantitativeJuan Zamora MD Work Phone: [phone]: 09-99-8150Zshnfufmix complete W Reflex Culture panel - UrineJulie Ashlee YIELD IMPROVEMENT ENGINEER-AIR VALUE TESTER Work Phone: [phone]: 26-08-3225Oljaq dip stick/tablet reagent auto microscopyJulianthony Rosado [facility] Work Phone: [phone]: 22-12-2024Gjghtuq quantitative blood xcpt reagent stripTadana Braun MD Work Phone: [phone]: 91-33-7884Frig-cov-2 detection by dna/rnaJulie AshleeBoone County Community Hospital Work Phone: [phone]: 82-38-9635Vzlvvuq quantitative blood xcpt reagent stripTadana Braun MD Work Phone: [phone]: 85-38-7053Qa thorax w/o contrast materialJosecarlos Zamora MD Work Phone: [phone]: 14-91-8184Ybjeaawiqm exam chest single view Juan Zamora MD Work Phone: [phone]: 73-17-0780Xhxcgcq quantitative blood xcpt reagent stripTadana Braun MD Work Phone: [phone]: 03-44-2000Zomae function panelMaty Chambers MD Work Phone: [phone]: 05-04-2023 End: 95-91-6304Zzvobceymtpbg metabolic panelTadana Braun MD Work Phone: [phone]: 14-92-8593Ltciv panelMaty Chambers MD Work Phone: [phone]: 10-32-3320Okdzvtushjdeb metabolic panel Interface Unspecifiedprovider Work Phone: Start: 30-39-7987Zhnsuzu dehydrogenase [Enzymatic activity/volume] in Serum or Plasma by Lactate to pyruvate reactionInterface Unspecifiedprovider Work Phone: Start: 53-15-4889Wclnyzadq [Mass/volume] in Serum or PlasmaInterface Unspecifiedprovider Work Phone: Start: 49-03-7499Ffbvdmdjfrg time (PT)Interface Unspecifiedprovider Work Phone: Start: 54-71-2690Nyckcrm assayMaty Chambers MD Work Phone: Start: 05-09-7310Myzgubz quantitative blood xcpt reagent stripTadana Braun MD Work Phone: Start: 74-57-7184Pllo tthrc r-t 2d w/wom-mode compl spec&colr dTareyohan Braun MD Work Phone: Start: 49-84-8637Wvwdbkj quantitative blood xcpt reagent stripTadana Braun MD Work Phone: Start: 97-67-0995Rsbxnke assaySusan Braun MD Work Phone: Start: 05-04-2023 End: 53-23-7409Unqvnobhyoqdi metabolic panelSusan Braun MD Work Phone: Start: 39-23-5431Fhkdf 1996 panel - Serum or Plasma Alyssa Quick DO Work Phone: Start: 66-72-7114Kupszkwk screenSUSAN BRAUNComment on above:Performed By: #### HAUF #### [facility] [address] [place], [place] [address]Mvmow: 05-55-3384Jgurswkjimc resistant Staphylococcus aureus [Presence] in Nose by Organism specific cultureAnderson Martins MD Work Phone: Start: 62-01-5852JavwgsvgqfGtrjmj Z Abbas MD Work Phone: Start: 90-37-3037Xbeyiimqri microscopic panel - Urine Qualitative by AutomatedAnderson Martins MD Work Phone: Start: 31-26-5819Dkzuytbsoo exam chest single view Anderson Martins MD Work Phone: Start: 01-68-6531Reclb type and Indirect antibody screen panel - BloodSusan Braun MD Work Phone: Start: 53-02-6430Kklxspoc blood countTadana Braun MD Work Phone: [phone]: 17-12-4030Bbjbzej unfractionated [Units/volume] in Platelet poor plasma by Chromogenic methodSusan Braun MD Work Phone: [phone]: 03-98-1986Oqktfkx dehydrogenase [Enzymatic activity/volume] in Serum or Plasma by Lactate to pyruvate reactionTadana Braun MD Work Phone: [phone]: 22-62-7243Wqtywpbpi [Mass/volume] in Serum or PlasmaSusan Braun MD Work Phone: [phone]: 22-90-1605Ptgcs function panelTadana Braun MD Work Phone: [phone]: 84-59-3348Vgbrwuae I.cardiac panel - Serum or Plasma by High sensitivity methodSusan Braun MD Work Phone: [phone]: 46-25-4418SJJRCRFXGDKDHQLHW 12 Saeid Holt MD Work Phone: Start: 94-37-6132Zxcqdemwwo exam knee complete 4/more viewsMohini Hook MD Work Phone: Start: 75-39-6694Lkrso shoulder complete minimum 2 viewsAlfred Vipul PINEDA Work Phone: Start: 15-07-2072Jgzwaycur on shoulder jointMD Juve Mcpherson Work Phone: Start: 22-18-5511Tvwra hand minimum 3 viewsMohini Hook MD Work Phone: Start: 17-63-2381UDG of left shoulderMD Juve Mcpherson Work Phone: Start: 42-73-1157Xeeud X-ray of left shoulderMD Juve Mcpherson Work Phone: History of coronary artery bypass graftingS/P CABG x 2 Susan Branu MD Work Phone: History of coronary artery bypass graftingS/P CABG x 2 Alyssa Jose Elias Abdelrahman DO Work Phone: History of coronary artery bypass graftingS/P CABG x 2 Ottoniel Trevino MD PhD Work Phone: Plan of Treatment DateCare ActivityDetailAuthorStart: 41-61-3342HJJ Vaccine (1 - 1-dose 75+ series)RSV Vaccine (1 - 1-dose 75+ series)[facility]: 54-52-8446Fvgmw panelMercy Health: 69-35-9300Viasqxsjhgjqkwbv [facility]: 08-24-2025 End: 01-89-7658Sjhtdpb encounter gkturodoj57/20/2026 2:00 PM EST Office Visit [address] [place] [address] Odilia Ernandez, YIELD IMPROVEMENT ENGINEER-AIR VALUE TESTER [address] [facility] [address] [place] [address] [facility] HospitalSttrego: 96-40-5158OZVZXXBA SCREENDIABETES SCREENCleveland Clinic Fairview Hospitaltart: 50-29-1724Bsbltltf ScreeningDiabetes Screening [facility]: 45-16-4729LwrqxumbeMercy Health St. Charles Hospitaltart: 05-26-2025 End: 01-20-8025Hoikhnw encounter sxupewjxk98/22/2025 10:30 AM EDT Office Visit [facility] [address] [place] [address] Juve Mcpherson MD [address] [place] [address] NOMJose Elias [facility] FMStart: 04-21-2025 End: 56-73-8897Ukndrra encounter /17/2025 1:00 PM EDT Office Visit [address] [place] [address] Odilia Ernandez, YIELD IMPROVEMENT ENGINEER-AIR VALUE TESTER [address] [facility] [address] [place] [address] [facility] CampuslandsStart: 81-64-1590YCOWO-19 Vaccine ( season)COVID-19 Vaccine ( season)[facility] Start: 02-70-6911Fzzyyggdc vaccinationNONM HealthcareStart: 03-29-2025 End: 53-64-2569mocfepfilc32/25/2025 2:00 PM EDT Results Only [facility] [address] [facility] [place] [address] labLorain [facility] LaboratoryComment on above:labStart: 03-26-2025 End: 33-63-4253Mylyhpe encounter procedureNOMS CWM FMComment on above:Arrived Start: 03-18-2025 End: 873964-kuhcecgxmjiwfu D3 [Mass/volume] in Serum or PlasmaVITAMIN D 25 HYDROXY Lab Routine Vitamin D deficiency Expected: 03/18/2025 (Approximate), Expires: 03/18/2026leveland ClinicComment on above:Expected: 03/18/2025 (Approximate), Expires: 03/18/2026Start: 03-18-2025 End: 03-18-2026 reactive protein [Mass/volume] in Serum or PlasmaC-REACTIVE PROTEIN Lab Routine Elevated sed rate Elevated C-reactive protein (CRP) Expected: 03/18/2025 (Approximate), Expires: 03/18/2026leveland ClinicComment on above:Expected: 03/18/2025 (Approximate), Expires: 03/18/2026Start: 03-18-2025 End: 99-48-2655BOP panel - Blood by Automated countCOMPLETE BLOOD COUNT Lab Routine Anemia of chronic disease Expected: 03/18/2025 (Approximate), Expires: 03/18/2026leveland ClinicComment on above:Expected: 03/18/2025 (Approximate), Expires: 03/18/2026Start: 03-18-2025 End: 11-51-1504Fwgyczddtcqqk metabolic 2000 panel - Serum or PlasmaCOMPREHENSIVE METABOLIC PANEL Lab Routine Elevated LFTs Expected: 03/18/2025 (Approximate), Expires: 03/18/2026[facility] Work Phone: Comment on above:Expected: 03/18/2025 (Approximate), Expires: 03/18/2026Start: 03-18-2025 End: 71-68-3750Rzggrcjkqiy sedimentation rateSEDIMENTATION RATE, WESTERGREN Lab Routine Elevated sed rate Elevated C-reactive protein (CRP) Expected: 03/18/2025 (Approximate), Expires: 03/18/2026[facility] CenterComment on above:Expected: 03/18/2025 (Approximate), Expires: 03/18/2026Start: 03-10-2025 End: 78-21-2427Fbbfi metabolic 2000 panel - Serum or PlasmaBasic Metabolic Panel Lab Routine Atherosclerosis of [place] coronary 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 Cardiomyopathy, ischemic Shortness of breath Expected: 03/10/2025 (Approximate), Expires: 03/10/2026[facility] Work Phone: Comment on above:Expected: 03/10/2025 (Approximate), Expires: 03/10/2026Start: 03-10-2025 End: 98-68-1224HQY panel - Blood by Automated countCBC Lab Routine 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 Cardiomyopathy, ischemic Shortness of breath Expected: 03/10/2025 (Approximate), Expires: 03/10/2026[facility] Work Phone: Comment on above:Expected: 03/10/2025 (Approximate), Expires: 03/10/2026Start: 03-10-2025 End: 93-16-9600EE Chest WO contrastCT chest wo IV contrast Imaging Routine Shortness of breath Current smoker Expected: 03/10/2025 (Approximate), Expires: 03/10/2026[facility] Service Area Work Phone: Comment on above:Expected: 03/10/2025 (Approximate), Expires: 03/10/2026Start: 03-10-2025 End: 66-67-1112Uzgqfb D-dimer FEU [Mass/volume] in Platelet poor plasmaD-dimer, VTE Exclusion Lab STAT 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 Cardiomyopathy, ischemic Shortness of breath Expected: 03/10/2025 (Approximate), Expires: 03/10/2026[facility] Work Phone: Comment on above:Expected: 03/10/2025 (Approximate), Expires: 03/10/2026Start: 03-10-2025 End: 30-32-5368Wmdyezmbylk peptide B [Mass/volume] in BloodB-Type Natriuretic Peptide Lab Routine 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 Cardiomyopathy, ischemic Shortness of breath Expected: 03/10/2025 (Approximate), Expires: 03/10/2026UnMer[facility] Work Phone: Comment on above:Expected: 03/10/2025 (Approximate), Expires: 03/10/2026Start: 03-10-2025 End: 61-61-5452Njqjpfi encounter tdxakjzdo11/06/2025 2:00 PM EDT [facility] [address] [facility] [address] [place] [address] Odilia Ernandez, YIELD IMPROVEMENT ENGINEER-AIR VALUE TESTER [address] [facility] [address] [place] [address] Community HospitalStart: 03-10-2025 End: 57-42-1270FJ Chest 2 ViewsXR chest 2 views Imaging Routine Shortness of breath Current smoker Expected: 03/10/2025, Expires: 03/10/2026UnMer[facility] Work Phone: Comment on above:Expected: 03/10/2025, Expires: 03/10/2026Start: 02-25-2025 End: 76-62-9654Utscseg encounter yuhtewlct53/24/2025 10:45 AM EDT Office Visit [facility] [address] [place] [address] Juve Mcpherson MD [address] [place] [address] NOMJose Elias CWM FMStart: 02-23-2025 End: 53-46-3867Wvpjw metabolic 2000 panel - Serum or PlasmaBasic Metabolic Panel Lab Routine Atherosclerosis of [place] coronary 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 Expected: 02/23/2025 (Approximate), Expires: 02/23/2026[facility] Work Phone: Comment on above:Expected: 02/23/2025 (Approximate), Expires: 02/23/2026Start: 02-23-2025 End: 21-71-9758Ikkmkyfs Pulmonary Function Test (Spirometry/DLCO/Lung Volumes) Complete Pulmonary Function Test (Spirometry/DLCO/Lung Volumes) PFT Routine Current smoker Shortness of breath Expected: 02/23/2025 (Approximate), Expires: 02/23/2026[facility] Service Area Work Phone: Comment on above:Expected: 02/23/2025 (Approximate), Expires: 02/23/2026Start: 02-23-2025 End: 70-61-1700Knkajle encounter vakdgtcul66/22/2025 11:30 AM EDT [facility] [address] [facility] [address] [place] [address] Odilia Ernandez, YIELD IMPROVEMENT ENGINEER-AIR VALUE TESTER [address] [facility] [address] [place] [address] Community HospitalStart: 45-84-6174Yekjbadpey measurement Creatinine LevelUnMercy Health Kings Mills HospitalStart: 20-14-9968Kacsnipv mellitus screeningDiabetes ScreeningUnMercy Health Kings Mills HospitalStart: 43-71-4155Guhroqgnn measurementPotassium LevelUnMercy Health [facility] Start: 01-29-2025 End: 43-02-2771ZabjlobgqMercy Health St. Charles Hospitaltart: 01-21-2025 End: 87-98-5420Bbdmpdv encounter procedureNOMS CW FMComment on above:Arrived Start: 81-83-3207KwjjmwjreMercy Health St. Charles Hospitaltart: 51-01-9124Itczx disorder assessmentMercy Health St. Charles Hospitaltart: 01-07-2025 Comprehensive metabolic 2000 panel - Serum or PlasmaMercy Health St. Charles Hospitaltart: 61-88-4315NmsfquulkMercy Health St. Charles Hospitaltart: 01-06-[address] [facility]: 12-77-7872Agtbqdhb identified in Blood by CultureBlood CultureMercy Health St. Charles Hospitaltart: 54-50-0007Zdffk disorder assessmentMercy Health St. Charles Hospitaltart: 34-17-3181Ngcqslte to cardiologistMercy Health St. Charles Hospitaltart: 14-33-1561Zoodrktf admissionMercy Health St. Charles Hospitaltart: 66-67-9973GyjgeqntlMercy Health St. Charles Hospitaltart: 12-30-2024 End: 38-46-6633Zvjlfqc encounter lzrcxugze17/28/2025 2:15 PM EDT Appointment [address] [address] [facility] Oliveirasamaritan healthcareStart: 12-30-2024 End: 55-38-4876Czxrsiy encounter procedure Idania [facility] HospitalStart: 12-11-2024 End: 67-05-2643Aepbrvg aminotransferase [Enzymatic activity/volume] in Serum or Plasma by With P-5'-PAlanine Aminotransferase Lab Routine Mixed hyperlipidemia Expected: 12/11/2024 (Approximate), Expires: 12/11/2025[facility] Work Phone: Comment on above:Expected: 12/11/2024 (Approximate), Expires: 12/11/2025Start: 12-11-2024 End: 80-54-3743Nvdwcboge aminotransferase [Enzymatic activity/volume] in Serum or Plasma by With P-5'-PAspartate Aminotransferase Lab Routine Mixed hyperlipidemia Expected: 12/11/2024 (Approximate), Expires: 12/11/2025[facility] Work Phone: Comment on above:Expected: 12/11/2024 (Approximate), Expires: 12/11/2025Start: 12-11-2024 End: 72-81-8611Vdzof metabolic 2000 panel - Serum or PlasmaBasic Metabolic Panel Lab Routine Primary hypertension Expected: 12/11/2024 (Approximate), Expires: 12/11/2025[facility] Work Phone: Comment on above:Expected: 12/11/2024 (Approximate), Expires: 12/11/2025Start: 12-11-2024 End: 74-35-2936Jbect 1996 panel - Serum or PlasmaLipid Panel Lab Routine Mixed hyperlipidemia Expected: 12/11/2024 (Approximate), Expires: 12/11/2025[facility] Work Phone: Comment on above:Expected: 12/11/2024 (Approximate), Expires: 12/11/2025Start: 12-11-2024 End: 90-49-3816ZE Heart Perfusion W stress and W radionuclide IVNuclear Stress Test Cardiac Nuclear Medicine Routine 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 Cardiomyopathy, ischemic Primary hypertension Mixed hyperlipidemia Expected: 12/11/2024 (Approximate), Expires: 12/11/2026[facility] Service Area Work Phone: Comment on above:Expected: 12/11/2024 (Approximate), Expires: 12/11/2026Start: 11-26-2024 End: 94-78-4783SP Chest W contrast IVCT chest w IV contrast Imaging Routine Pulmonary nodules Expected: 11/26/2024, Expires: 11/26/2025[facility] Work Phone: Comment on above:Expected: 11/26/2024, Expires: 11/26/2025Start: 11-26-2024 End: 90-62-0326Mypimfy encounter procedureNOMS CWM FMComment on above:Arrived Start: 93-35-1197MhydgbozxMercy Health St. Charles Hospitaltart: 92-35-9440Msupfmsy to cardiologistMercy Health St. Charles Hospitaltart: 54-43-2962Asvruonh admission [facility]: 30-00-4322AbovolsfeMercy Health St. Charles Hospitaltart: 05-90-4923Rkrnxnmk identified in Blood by CultureBlood Culture [facility]: 10-05-2024 End: 74-29-5623Awkbnrq encounter bsqumemmz63/03/2025 1:30 PM EST Office Visit [facility] [address] [place] [address] Juve Mcpherson MD [address] [place] [address] [facility] FMStart: 56-18-7564MBK High Risk: (Elderly (60+) or Population) (1 - Risk 60-74 years 1-dose series)RSV High Risk: (Elderly (60+) or Population) (1 - Risk 60-74 years 1-dose series)[facility]: 16-93-8032PZF patients and/or patients aged 60+ years (1 - 1-dose 60+ series)RSV patients and/or patients aged 60+ years (1 - 1-dose 60+ series)[facility]: 39-46-5946Uvfdj X-ray of left shoulderXR shoulder LT min 2V*[facility]: 15-28-0053GJ Shoulder - left ViewsMercy Health St. Charles Hospitaltart: 08-26-2024 End: 50-43-1736Lslub 1996 panel - Serum or PlasmaLipid Panel Lab Routine Mixed hyperlipidemia Expected: 08/26/2024 (Approximate), Expires: 08/26/2025[facility] Service Area Work Phone: Comment on above:Expected: 08/26/2024 (Approximate), Expires: 08/26/2025Start: 08-26-2024 End: 81-20-6860Hsccddy encounter uxvmieieq46/22/2025 11:20 AM EST [facility] [address] [facility] [address] [place] [address] Alyssa Quick DO [address] [facility] [address] [place] [address] [facility]: 86-15-1613Szemuoiwdqujeplz EchocardiogramMercy Health: 80-70-1848KnqrybxmbMercy Health St. Charles Hospitaltart: 10-06-6634OsxwwzldiMercy Health St. Charles Hospitaltart: 07-07-2024 End: 60-76-8932Nadjcir encounter procedureNOMS CWM FMComment on above:Arrived Start: 06-09-2024 End: 93-73-6920Trjmcoi encounter vvxscelsa23/05/2024 2:30 PM EST [facility] [address] [place] [address] Alyssa Quick DO [address] [place] [address] [facility]: 88-20-6874Dnptdkqhra measurement Creatinine LevelMercy Health: 54-26-9336Xaatjkwfi measurementPotassium LevelUn[facility]: 05-15-2024 Creatinine measurementUnChildren's Hospital of [facility]: 05-15-2024 Pneumococcal vaccinationPneumococcal Vaccine (2 of 2 - PCV)[facility]: 76-21-8144Hxqjplbzpfup Vaccine: Pediatrics (0 to 5 Years) and At-Risk Patients (6 to 64 Years) (2 - PCV)Pneumococcal Vaccine: Pediatrics (0 to 5 Years) and At-Risk Patients (6 to 64 Years) (2 - PCV)[facility]: 76-84-7016Dfeixhfgerjf Vaccine: Pediatrics (0 to 5 Years) and At-Risk Patients (6 to 64 Years) (2 of 2 - PCV)Pneumococcal Vaccine: Pediatrics (0 to 5 Years) and At-Risk Patients (6 to 64 Years) (2 of 2 - PCV)[facility]: 17-57-4792Zalxxeivb measurementMercy Health: 23-42-6981LloiydhjtnoobrujPzkcjflefssglbUvxsyfhzgy [facility] ClevelandStart: 27-98-3951NnwyusqrlkMercy Health: 05-11-2024 End: 49-46-3215Flbekjk encounter jcalzkgyr32/07/2024 2:15 PM EDT Office Visit [facility] [address] [place] [address] Dayton Muñiz DO [address] [place] [address] NOMJose Elias [facility] GENSStart: 85-08-4825Myolpzuq mellitus screeningMercy Health: 47-35-6282Pyxsfkyfyh A1c measurementMercy Health: 04-23-2024 End: 32-06-9450Nxejk metabolic 1998 panel - Serum or PlasmaBasic metabolic panel Lab Routine Benign essential hypertension (CMS/HCC) Expected: 04/23/2024 (Appr oximate), Expires: 04/23/2025[facility] HealthcareComment on above:Expected: 04/23/2024 (Approximate), Expires: 04/23/2025Start: 04-23-2024 End: 07-73-4162IPN W Auto Differential panel - BloodCBC and differential Lab Routine Encounter for long-term current use of medication Expected: 04/23/2024 (Approximate), Expires: 04/23/2025[facility] HealthcareComment on above:Expected: 04/23/2024 (Approximate), Expires: 04/23/2025Start: 04-23-2024 End: 01-30-6344Psjrlkugmm A1c/Hemoglobin.total in BloodHemoglobin A1c Lab Routine Prediabetes Expected: 04/23/2024 (Approximate), Expires: 04/23/2025[facility] Work Phone: Comment on above:Expected: 04/23/2024 (Approximate), Expires: 04/23/2025Start: 04-23-2024 End: 98-71-5758Mnxicwf function 2000 panel - Serum or PlasmaHepatic function panel Lab Routine Encounter for long-term current use of medication Expected: 04/23/2024 (Approximate), Expires: 04/23/2025[facility] HealthcareComment on above: Expected: 04/23/2024 (Approximate), Expires: 04/23/2025Start: 04-23-2024 End: 76-87-6991Mityy 1996 panel - Serum or PlasmaLipid panel Lab Routine Dyslipidemia (CMS/HCC) Expected: 04/23/2024 (Approximate), Expires: 04/23/2025 [facility] HealthcareComment on above:Expected: 04/23/2024 (Approximate), Expires: 04/23/2025Start: 04-23-2024 End: 80-37-4909Iqtacmwq specific Ag [Mass/volume] in Serum or PlasmaPSA Lab Routine Screening PSA (prostate specific antigen) Expected: 04/23/2024 (Approximate), Expires: 04/23/2025[facility] HealthcareComment on above:Expected: 04/23/2024 (Approximate), Expires: 04/23/2025Start: 04-23-2024 End: 42-22-8875Znllwztrdmc [Units/volume] in Serum or PlasmaTSH Lab Routine Obesity (BMI 30-39.9) Expected: 04/23/2024 (Approximate), Expires: 04/23/2025 [facility] HealthcareComment on above:Expected: 04/23/2024 (Approximate), Expires: 04/23/2025Start: 04-23-2024 End: 74-68-9436Vzcxuiz encounter omvkprzhr90/19/2024 1:00 PM EDT Office Visit [facility] [address] [place] [address] Juve Mcpherson MD [address] [place] [id number] [facility] [place] [place] FMComment on above:ArrivedStart: 36-71-8700Egyvg-19 Vaccine ( season)Covid-19 Vaccine ( season)[facility]: 99-40-9143ZUZKW-19 Vaccine ( season)COVID-19 Vaccine ( season)[facility] IncStart: 70-17-4778Ybrzsemsk vaccination Influenza Vaccine (#1)[facility]: 03-11-2024 End: 31-52-4302Vcjegwn encounter procedureMarshfield [facility] Countytart: 03-04-2024 End: 56-60-3674Bbzwezh encounter febtvqkpr52/31/2024 11:30 AM EDT Office Visit [facility] [address] [place] [address] Saul Gonzales MD [address] [place] [address] [facility]: 02-28-2024 End: 56-51-5864Sttdmudwt to same day surgery rjquim7802/28/2024 7:20 AM EDT - 02/28/2024 10:40 AM EDT Surgery [facility] [place] [address] [place] [address] Saul Gonzales MD [address] [place] [address] Bilateral endoscopic sinus surgery with image guidance, septoplasty. [31911 (CPT )][facility] BAHComment on above:Bilateral endoscopic sinus surgery with image guidance, septoplasty. [62478 (CPT )]Start: 02-28-2024 End: 72-78-8134Vkihq/sinus ndsc w/total ethoidectomyNasal Endoscopy with Excision Tissue Ethmoid Sinus Chronic maxillary sinusitis Deviated nasal septum 02/28/2024 7:20 AM EDTVirtual [facility] [place] ORStart: 02-28-2024 End: 77-91-3165Avl/sinus ndsc max antrost w/rmvl tiss max sinusNasal Endoscopy with Excision Tissue Maxillary Sinus Chronic maxillary sinusitis Deviated nasal septum 02/28/2024 7:20 AM EDTVirtual [facility] [place] ORStart: 02-28-2024 End: 56-71-1878Qwneqwzkasu/submucous resecj w/wo cartilage grfRepair Septum Nasal Cavity Chronic maxillary sinusitis Deviated nasal septum 02/28/2024 7:20 AM EDTVirtual [facility] [place] ORStart: 02-28-2024 End: 94-50-3846Yviofsc cptr asstd px extradural cranialNavigation-Assisted Surgery Chronic maxillary sinusitis Deviated nasal septum 02/28/2024 7:20 AM EDT Virtual [facility] [place] PAMELAtart: 25-09-0593Cvrqypkqqy hospital visit by [facility]Atl[facility] [place] ORStart: 01-15-2024 End: 43-47-8059Wkuichi for Pre-Admission Testing VisitRequest for Pre-Admission Testing Visit Procedures Routine Chronic maxillary sinusitis Expected: 07/2024 (Approximate), Expires: 01/14/2025[facility] Service Area Work Phone: Comment on above:Expected: 01/15/2024 (Approximate), Expires: 01/14/2025Start: 79-45-1860Zunhw X-ray of left shoulderXR shoulder LT min 2V*[facility]: 63-51-8615ZM Shoulder - left ViewsMercy Health St. Charles Hospitaltart: 12-03-2023 End: 43-13-9012Fszqyhi encounter fapihbzcs93/30/2024 2:00 PM EDT [facility] [address] [facility] [address] [place] [address] Alyssa Quick DO [address] [facility] [address] [place] [address] [facility] HospitalStart: 11-13-2023 End: 69-60-6748Cxaoz metabolic 2000 panel - Serum or PlasmaBasic Metabolic Panel Lab Routine Hypervolemia, unspecified hypervolemia type Congestive heart failu re, NYHA class 2 and ACC/AHA stage C (CMS/HCC) Expected: 11/13/2023 (Approximate), Expires: 11/12/2024[facility] Service Area Work Phone: Comment on above:Expected: 11/13/2023 (Approximate), Expires: 11/12/2024Start: 11-13-2023 End: 34-57-2677Ucqgtapn kinase [Enzymatic activity/volume] in Serum or Plasma Creatine Kinase Lab Routine Congestive heart failure, NYHA class 2 and ACC/AHA stage C (CMS/HCC) Mixed hyperlipidemia Expected: 11/13/2023 (Approximate), Expires: 11/12/2024[facility] Work Phone: Comment on above:Expected: 11/13/2023 (Approximate), Expires: 11/12/2024Start: 11-13-2023 End: 72-92-8160Dsmxpcv encounter /10/2024 10:30 AM EDT [facility] [address] [place] [address] Odilia Ernandez, YIELD IMPROVEMENT ENGINEER-AIR VALUE TESTER [address] [place] [address] Community HospitalStart: 09-29-7651Oyqwke scan veins of upper limbUS venous duplex UE [facility] Hospitaltart: 70-64-4331ZK Upper extremity vein [facility]: 10-22-2023 End: 07-13-0554Eieuono encounter npadvlnjy95/19/2024 12:30 PM EDT [facility] [address] [place] [address] Odilia Ernandez, YIELD IMPROVEMENT ENGINEER-AIR VALUE TESTER [address] [place] [address] Community HospitalStart: 10-15-2023 End: 96-79-7832Bqfvo metabolic 2000 panel - Serum or PlasmaBasic Metabolic Panel Lab Routine Hypervolemia, unspecified hypervolemia type Expected: 10/15/2023 ( Approximate), Expires: 10/14/2024[facility] Service Area Work Phone: Comment on above:Expected: 10/15/2023 (Approximate), Expires: 10/14/2024Start: 10-15-2023 End: 32-91-9580Ucsxyshtyuv peptide B [Mass/volume] in BloodB-Type Natriuretic Peptide Lab Routine Hypervolemia, unspecified hypervolemia type Expected: 10/15/2023 (Approximate), Expires: 10/14/2024[facility] Work Phone: Comment on above:Expected: 10/15/2023 (Approximate), Expires: 10/14/2024Start: 10-15-2023 End: 91-21-7455QU.doppler Upper extremity vein - leftVascular US upper extremity venous duplex left Vascular Ultrasound Routine Edema of left upper arm E xpected: 10/15/2023 (Approximate), Expires: 10/14/2025[facility] Work Phone: Comment on above:Expected: 10/15/2023 (Approximate), Expires: 10/14/2025Start: 09-16-2023 End: 96-47-4589Zqguurh encounter xgzcqfyah26/12/2024 1:30 PM EST [facility] [address] [place] [address] [address] [place] [address] Odilia Ernandez, YIELD IMPROVEMENT ENGINEER-AIR VALUE TESTER [address] [place] [address] Community HospitalStart: 08-14-2023 End: 34-22-3751Flhoame encounter xbcminuvp71/10/2024 1:00 PM EST [facility] [address] [place] [address] Odilia Ernandez, YIELD IMPROVEMENT ENGINEER-AIR VALUE TESTER [address] [place] [address] Community HospitalStart: 07-16-2023 End: 96-11-3844Ywdqqfg encounter wbgtooacz49/12/2023 2:30 PM EST Appointment [facility] [address] [facility] [address] [place] [address] [facility] HospitalStart: 07-09-2023 End: 89-57-8951Ampok metabolic 2000 panel - Serum or PlasmaBasic Metabolic Panel Lab Routine Atherosclerosis of [place] coronary 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 (CMS/HCC) Cardiomyopathy, ischemic Expected: 07/09/2023 (Approximate), Expires: 07/02/2024[facility] Work Phone: Comment on above:Expected: 07/09/2023 (Approximate), Expires: 07/02/2024Start: 07-09-2023 End: 64-56-1424Eowwsjtfxcf peptide B [Mass/volume] in BloodB-Type Natriuretic Peptide Lab Routine 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 (CMS/HCC) Cardiomyopathy, ischemic Expected: 07/09/2023 (Approximate), Expires: 07/02/2024[facility] Work Phone: Comment on above:Expected: 07/09/2023 (Approximate), Expires: 07/02/2024Start: 07-02-2023 End: 66-19-1991Tlmpqcfnh function testPulmonary function test PFT Routine Shortness of breath Former smoker Expected: 07/02/2023 (Approximate), Expires: 07/02/2024[facility] Service Area Work Phone: Comment on above:Expected: 07/02/2023 (Approximate), Expires: 07/02/2024Start: 07-02-2023 End: 96-70-4955Bvqpcji encounter ijukjxbcn99/28/2023 1:30 PM EST [facility] [address] [facility] [address] [place] [address] Odilia Ernandez, YIELD IMPROVEMENT ENGINEER-AIR VALUE TESTER [address] [facility] [address] [place] [address] Community HospitalStart: 06-21-2023 End: 36-81-1378ctlvkirqmaQNCook Hospital MatherStart: 06-21-2023 End: 61-02-0820Mkwalra encounter /17/2023 9:45 AM EST Office Visit [facility] [address] [facility] [address] [place] [address] Ottoniel Trevino [place] PhD [address] Department of Surgery-Cardiac [place] [id number] [facility] MatherStart: 06-18-2023 End: 22-21-1388Czwbw metabolic 2000 panel - Serum or PlasmaBasic Metabolic Panel Lab Routine ST elevation myocardial infarction (STEMI), unspecified artery (CM S/HCC) 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, unspecified whether [place] or transplanted heart (CMS/HCC) Hypertension, unspecified type Expected: 06/18/2023 (Approximate), Expires: 06/18/2024 [facility] Work Phone: Comment on above:Expected: 06/18/2023 (Approximate), Expires: 06/18/2024Start: 06-18-2023 End: 79-45-1575Ottqhbnsukd peptide B [Mass/volume] in BloodB-Type Natriuretic Peptide Lab Routine ST elevation myocardial infarction (STEMI), unspecified artery (CMS/HCC) 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, unspecified whether [place] or transplanted heart (CMS/HCC) Hypertension, unspecified type Expected: 06/18/2023 (Approximate), Expires: 06/18/2024 [facility] Work Phone: Comment on above:Expected: 06/18/2023 (Approximate), Expires: 06/18/2024Start: 06-18-2023 End: 76-76-2323VP Heart TransthoracicTransthoracic Echo (TTE) Complete Echocardiography Routine S/P CABG x 2 HFrEF (heart failure with reduced ejection fraction) (CMS/HCC) Expected: 06/18/2023 (Approximate), Expires: 06/18/2025[facility] Service Area Work Phone: Comment on above:Expected: 06/18/2023 (Approximate), Expires: 06/18/2025Start: 05-24-2023 End: 61-46-5718ehaamfvmnwUCSedgwick County Memorial HospitalStart: 05-23-2023 End: 59-36-8190ulbcgbnmmrOPSt. Clare's Hospital MatherStart: 05-22-2023 End: 54-82-4481Jzwve metabolic 2000 panel - Serum or PlasmaSelect Medical Specialty [facility] Work Phone: Start: 05-22-2023 End: 38-75-1868FHQ panel - Blood by Automated countUnMercy Health Kings Mills Hospital Work Phone: Start: 05-22-2023 End: 80-73-8546Eecsbykzt [Mass/volume] in Serum or PlasmaUnMercy Health Kings Mills Hospital Work Phone: Start: 93-98-9259SbohvljxoGerman Hospital Start: 99-65-3835Ljmhoatzxh with Cardiac Output using Balloon Pump, Continuous Assistance with Cardiac Output using Balloon Pump, ContinuousMercy Health St. Charles Hospitaltart: 89-72-2117Lnxiawsg of Coronary Artery, Two Arteries, Percutaneous ApproachDilation of Coronary Artery, Two Arteries, Percutaneous ApproachMercy Health St. Charles Hospitaltart: 96-10-5797Psatklnkmpn of Left Heart using Low Osmolar ContrastFluoroscopy of Left Heart using Low Osmolar ContrastMercy Health St. Charles Hospitaltart: 19-81-7812Otyxtegzpkl of Multiple Coronary Arteries using Low Osmolar ContrastFluoroscopy of Multiple Coronary Arteries using Low Osmolar ContrastGerman Hospital Start: 78-49-6320Kmlzkwlatdn of Cardiac Sampling and Pressure, Left Heart, Percutaneous ApproachMeasurement of Cardiac Sampling and Pressure, Left Heart, Percutaneous ApproachMercy Health St. Charles Hospitaltart: 05-03-[address] Charles Hospitaltart: 59-38-4820Xzswiilf admission [facility]tart: 00-15-6033Rqnefutz to cardiac rehabilitation programMercy Health St. Charles Hospitaltart: 05-03-[address] [facility]: 70-61-2811SXCTF-19 Vaccine ( season)COVID-19 Vaccine ( season)[facility] Start: 61-72-5250Uvzeqyujk vaccinationCleveland Clinic Fairview Hospitaltart: 04-01-2023 End: 62-89-039562063999-giocivymdmmpfk D3 [Mass/volume] in Serum or PlasmaSt. [facility]'S [facility] Work Phone: Comment on above:Expected: 04/01/2023 (Approximate), Expires: 06/01/2023Start: 04-01-2023 End: 05-91-0893Wrnnatkcn (Vitamin B12) [Mass/volume] in Serum or [facility] Work Phone: Comment on above:Expected: 04/01/2023 (Approximate), Expires: 06/01/2023Start: 05-19-5563xmnrpynqreGbbgkhpgljDenfhmgi:H9Hhpya: 11-16-2022 End: 105638-fxjdffzyivlcvs D3 [Mass/volume] in Serum or PlasmaVITAMIN D 25 HYDROXY Lab Routine Vitamin D deficiency Expected: 11/16/2022 (Approximate), Expires: 08/18/2023[facility] Work Phone: Comment on above:Expected: 11/16/2022 (Approximate), Expires: 08/18/2023Start: 11-16-2022 End: 27-78-4433Vjwlxcxzv (Vitamin B12) [Mass/volume] in Serum or PlasmaVITAMIN B12 BLOOD Lab Routine Vitamin B12 deficiency Expected: 11/16/2022 (Approximate), Expires: 08/18/2023[facility] Work Phone: Comment on above:Expected: 11/16/2022 (Approximate), Expires: 08/18/2023Start: 45-70-8947KwylgzjckMercy Health St. Charles Hospitaltart: 30-80-3422CcgvaqrfrMercy Health St. Charles Hospitaltart: 08-17-2022 End: 595272-mkxmevriffxobf D3 [Mass/volume] in Serum or [facility] Work Phone: Comment on above:Expected: 08/17/2022 (Approximate), Expires: 08/17/2023Start: 08-17-2022 End: 48-48-3235KLE BY [facility] WITH [facility] Work Phone: Comment on above:Expected: 08/17/2022 (Approximate), Expires: 08/17/2023Start: 08-17-2022 End: 02-97-2463NBDCV TB SCREENSt. Mary'S Medical Center Work Phone: Comment on above:Expected: 08/17/2022 (Approximate), Expires: 08/17/2023Start: 08-17-2022 End: 08-17-2023 reactive protein [Mass/volume] in Serum or [facility] Work Phone: [phone] on above:Expected: 08/17/2022 (Approximate), Expires: 08/17/2023Start: 08-17-2022 End: 89-74-6072Ugkwbhe hepatitis differentiation between hepatitis B and C virus panel - Serum or [facility] Work Phone: Comment on above:Expected: 08/17/2022 (Approximate), Expires: 08/17/2023Start: 08-17-2022 End: 35-17-3201Yszmzsvmw (Vitamin B12) [Mass/volume] in Serum or [facility] Work Phone: Comment on above:Expected: 08/17/2022 (Approximate), Expires: 08/17/2023Start: 08-17-2022 End: 31-90-5223Zqpifzpxwmzuy metabolic 2000 panel - Serum or [facility] Work Phone: Comment on above:Expected: 08/17/2022 (Approximate), Expires: 08/17/2023Start: 08-17-2022 End: 42-89-5791Wvfxpi citrullinated peptide IgG Ab [Units/volume] in Serum or [facility] Work Phone: Comment on above:Expected: 08/17/2022 (Approximate), Expires: 08/17/2023Start: 08-17-2022 End: 03-46-7734Ghgzksyatxc sedimentation rateSt. Mary'S Medical Center Work Phone: Comment on above:Expected: 08/17/2022 (Approximate), Expires: 08/17/2023Start: 08-17-2022 End: 82-19-1572Cryevxkglj factor [Units/volume] in Serum or [facility] Work Phone: Comment on above:Expected: 08/17/2022 (Approximate), Expires: 08/17/2023Start: 08-17-2022 End: 15-70-7915Cfluh [Mass/volume] in Serum or PlasmaSt. Mary'S Medical Center Work Phone: Comment on above:Expected: 08/17/2022 (Approximate), Expires: 08/17/2023Start: 53-96-5345HZJSDCXSZR ASSESSMENTDEPRESSION ASSESSMENT [facility]art: 70-94-4626Dfpxqdfsh vaccinationINFLUENZA (#1)[facility]tart: 09-29-9935NPSKMTXX CANCER SCREENING DISCUSSIONPROSTATE CANCER SCREENING DISCUSSIONC[facility] Clinic [facility] Hospitaltart: 05-47-9333Rxcujffi specific antigen measurementProstate Cancer Screening DiscussionC[facility] Clinic Fairview Hospitaltart: 2014 Prostate specific antigen measurementPSA Prostate Cancer ScreeningMercy Health: 08-76-1205ZGEXHIYA VACCINE (1 of 2)SHINGRIX VACCINE (1 of 2)[facility]: 23-53-9108Vbwxqg Vaccines (1 of 2)Zoster Vaccines (1 of 2)[facility]: 20-34-4388LkuwerhriwMercy Health: 58-90-4063HDLOLVVEC (FIT-DNA)COLOGUARD (FIT-DNA) [facility]tart: 71-37-1516AkpdftijjbwNKIZUSXAYOTQjciqsolp ClinicStart: 12-00-3733XIYAUEXEHR CANCER SCREENINGCOLORECTAL CANCER SCREENINGTwin City Hospital Start: 18-35-1561VJ COLONOGRAPHYCT COLONOGRAPHYCleveland Clinic Fairview Hospitaltart: 2009 DIABETES SCREENDIABETES SCREENCleveland Clinic Fairview Hospitaltart: 95-38-4076ODNTG OCCULT BLOODFECAL OCCULT BLOODCleveland Clinic Fair[facility] Hospitaltart: 94-43-7724Pycmhgwf specific antigen measurementProstate Cancer Screening DiscussionC[facility] Clinic [facility] Hospitaltart: 72-97-7952Xpuevveqz for malignant neoplasm of colonC[facility] Clinic [facility] Hospitaltart: 57-38-7759BJXWTMBUGTDMLCXEQYRUPCUXQXIrgpcxcnh ClinicStart: 40-44-5150Dcmtb panel Lipid ScreeningCleveland Clinic Fairview Hospitaltart: 10-65-1016SGGEF SCREENLIPID SCREEN [facility]art: 67-53-2207UPzU/Tdap/Td Vaccines (1 - Tdap)DTaP/Tdap/Td Vaccines (1 - Tdap)[facility]: 57-40-5129WgjowdrjzuChildren's Hospital of [facility]: 27-89-9289Rxsittoii B Vaccines (1 of 3 - 19+ 3-dose series)Hepatitis B Vaccines (1 of 3 - 19+ 3-dose series)[facility]: 82-97-6384Xzzzmhjxwieh Vaccine: 50+ (1 of 2 - PCV)Pneumococcal Vaccine: 50+ (1 of 2 - PCV)[facility]: 51-23-3538Ycstx microalbumin profileCleveland Clinic Fairview Hospitaltart: 40-99-2155Jeeayxo ScreeningAnxiety Screening [facility]: 51-99-4985Rcgpotccwo ScreeningDepression Screening [facility]: 59-55-2938BNEQBOKRJ C SCREENINGHEPATITIS C SCREENING [facility]: 18-33-2776Ffaitloqz C screeningUnChildren's Hospital of [facility]: 80-22-6716GCQ SCREENINGHIV SCREENINGC[facility] Clinic [facility] Hospitaltart: 88-23-0033UOD screeningHIV ScreeningC[facility] Clinic [facility] Hospitaltart: 1971 PNEUMOCOCCAL (1 - PCV)PNEUMOCOCCAL (1 - PCV)[facility]: 1971 Pneumococcal vaccinationPneumococcal Vaccine (1 of 2 - PCV)[facility] Start: 78-01-2166GummnflpobChildren's Hospital of [place]: 27-05-8325AUX Vaccines (1 of 1 - Standard series)MMR Vaccines (1 of 1 - Standard series)[facility]: 04-34-1809EagjpjirssChildren's Hospital of [facility]: 94-43-4354ETZYD-19 VACCINE (#1)COVID-19 VACCINE (#1)[facility]: 07-40-6689QlmoajixinChildren's Hospital of Columbus: 97-04-7713OVWPQFLCQ B (1 of 3 - 3-dose series)HEPATITIS B (1 of 3 - 3-dose series)[facility]: 08-64-9878Tlngleglc B Vaccines (1 of 3 - 3-dose series)Hepatitis B Vaccines (1 of 3 - 3-dose series)[facility]: 68-08-5802ANB screeningMercy Health: 87-16-9098Lseojrnrf for malignant neoplasm of colonUnChildren's Hospital of [facility]: 1965 Yearly Adult PhysicalYearly Adult PhysicalSelect [facility]ty [facility], [facility] Start: 78-54-4886TcbvamgylxSelect Medical Specialty Hospital [facility], IncAirway Clearance Techniques Device/modality: vPEPWadsworth Hospital Work Phone: cBC panel - Blood by Automated countWadsworth Hospital Work Phone: comprehensive metabolic 2000 panel - Serum or Plasma [facility] End: 49-56-1986Njqeyawilqnfv of physical activity toleranceWadsworth Hospital Work Phone: End: 57-19-7165XYT 12 LeadWadsworth Hospital Work Phone: Comment on above:Once for 1 Occurrences starting 02/14/2024 until 02/14/2024 End: 45-64-7591Ofhzzjxucasoyqylc, 12-leadSelect Medical Specialty [facility], Inc Work Phone: End: 56-20-2115Xsavqnajs deep breathing and coughingWadsworth Hospital Work Phone: End: 50-76-2589Ustwu Urine Cadena TubeSelect Medical Specialty Hospital - [facility], Inc Work Phone: Glucose [Mass/volume] in Serum or PlasmaSelect Medical Specialty Hospital - [facility], [facility] Work Phone: End: 28-71-5878Ejjwrvojk spirometry InstructSelect Medical Specialty Hospital - [facility], Inc Work Phone: Magnesium [Mass/volume] in Serum or PlasmaSelect Medical Specialty Hospital - [facility], Inc Work Phone: Nasal/sinus ndsc w/total ethoidectomyNasal Endoscopy with Excision Tissue Ethmoid Sinus Chronic maxillary sinusitis Deviated nasal septumVirtual [facility] End: 02-76-0369Fiqxqufuvhr peptide B [Mass/volume] in BloodWadsworth Hospital Work Phone: End: 99-67-8057YZ Heart Perfusion W stress and W radionuclide [facility] Work Phone: Comment on above:Once for 1 Occurrences starting 01/25/2025 until 01/25/2025Nsl/sinus ndsc max antrost w/rmvl tiss max sinusNasal Endoscopy with Excision Tissue Maxillary Sinus Chronic maxillary sinusitis Deviated nasal septumVirtual [facility] ORWilson Medical Center EducationWadsworth-[facility] Work Phone: Patient referralUk [facility] Work Phone: Pulse oximetry, [facility] Work Phone: Renal function 2000 panel - Serum or PlasmaSelect Medical Specialty [facility], [facility] Work Phone: Septoplasty/submucous resecj w/wo cartilage grfRepair Septum Nasal Cavity Chronic maxillary sinusitis Deviated nasal septumVirtual [facility] ORStrtctc cptr asstd px extradural cranialNavigation-Assisted Surgery Chronic maxillary sinusitis Deviated nasal septumVirtual [facility] MISCELLANEOUS CULT./SM.BACT. MISCELLANEOUS CULT./SM.BACT. Lab Routine 05/27/2024 4:[facility]./SM.BACT. MISCELLANEOUS CULT./SM.BACT. Lab Routine 08/12/2024 3:39 PM [facility] End: 84-94-2231Bdxmagozvn complete W Reflex Culture panel - UrineWadsworth Hospital Work Phone: End: 47-31-3644RU Heart TransthoracicMontefiore New [facility] Area Work Phone: Comment on above:Once for 1 Occurrences starting 07/16/2023 until 07/16/2023 End: 69-44-2016ZD Chest 2 ViewsMontefiore New Rochelle Hospital Area Work Phone: comment on above:Once for 1 Occurrences starting 06/21/2023 until 06/21/2023[facility] Immunizations Immunization DateImmunizationNotesCare NujsyrgzCndothew38-03-8692lcvodnmtu, injectable, quadrivalent, preservative freeTarek Kade MD Work Phone: [facility]10-11-2023 pneumococcal polysaccharide vaccine, 23 valentTadana Braun MD Work Phone: [facility] Work Phone: [phone]e virus vaccine, unspecified formulationCoshocton Regional Medical Center Work Phone: [phone], injectable, Madin Donita Canine Kidney, preservative free, quadrivalentWilliam Abdelrahman DO Work Phone: [facility] Work Phone: [phone]l virus vaccine, unspecified formulationMohini Hook MD Work Phone: [facility] HospitalCrxwjk21-23-4594pjjzentrd, seasonal, injectableWilliam Abdelrahman DO Work Phone: [facility] Work Phone: Payers DatePayer CategoryPayerPolicy [id number] 2021Medicaid [id number] 2021Medicaid (Managed Care) [id number] Health InsuranceTHE [facility] MEDICAID Member Subscriber Plan / Payer (Effective 2021-Present) Name: Morgan Latham Relation to Subscriber: Self Name: Morgan Latham Payer ID: Not on file Group ID: [id number] Type: Not on file Address: [address] [id number] [id number] 2.16.840.1.340191.3.57[id number] 2.16.840.1.733540.3.57[id number] 2.16.840.1.609017.3.57[id number] 2..840.1.802475.3.579.[id number] 2..840.1.380806.3.57[id number] 2.840.1.676549.3.57[id number] 2.840.1.942545.3.579.2.63406-24-2315Myqnkxa60002445 2..840.1.595586.3.579.2.2[id number] 2.840.1.977758.3.57[id number] 2.840.1.186424.3.579.[id number] 2.16.840.1.165358.3.579.[id number] 2.840.1.866549.3.57[id number] 2.16.840.1.371660.3.579.2.29121-67-7010Jpvqvik342896940 2.840.1.644817.3.57[id number] 2.16.840.1.370241.3.579.2.3[id number] 2.16.840.1.901584.3.579.2.251213-61-1418Tvoxadz93666859 2.16.840.1.856492.3.579.2.773125-38-3504Twengea13522581 2.16.840.1.054940.3.579.2.143380-39-9408Etqkyif60767219 2..840.1.788156.3.579.2.695748-32-2277Zwwougs93692740 2.840.1.940990.3.579.2.596714-50-3989Czyfsfb94677260 2.0.1.608890.3.579.2.350005-39-6109Ybbzmon05681891 2.840.1.192191.3.579.2.358119-92-6739Ckyeppq88128223 2..840.1.634772.3.579.2.317824-77-3809Btlpeaj42126540 2..840.1.244225.3.579.2.252671-49-9454Ordrfbe00968811 2.840.1.581693.3.579.2.139456-65-4761Vvoegyu8753865 2.840.1.271920.3.579.2.185099-84-0481Odsqihk3951669 2.16.840.1.791566.3.579.2.463306-38-8269Vgeptfd6513684 2.16840.1.849528.3.579.2.[id number] 2..1.937866.3.579.2.756854-11-7914Iyhxnwh584882870 2..1.404341.3.579.2.781322-55-1367Cslbppt115874264 2..1.598298.3.579.2.543266-05-5867Sxucwjq699184508 2..1.284580.3.579.2.059248-58-7445Mrevqki123907844 2..1.818696.3.579.2.892858-68-8500Tcegsid338888990 2..1.283110.3.57[id number] 2..1.499570.3.579.2.1244 [id number] [id number]-[id number]o[id number] 2..1.287746.19UnknownReverify Wtfuvljwo708-97-7988 97a8f41k-53co-71i2-b00u-l4c98t389d9[id number] 2..1.481668.3.579.2.466Njbsqeu47680260 2..1.988506.3.579.2.531 Vmnfrvt19118907 2..1.349568.3.579.2.086Qnzrbwn63595487 2..1.520770.3.579.2.391Fvaipqn43576408 2..1.260654.3.579.2.531 Ncuemul64052648 2..1.298728.3.579.2.852Qobmzjl18921875 2..840.1.935273.3.579.2.696Vxmmcuq02065935 2.840.1.155849.3.579.2.531 [id number] 2.840.1.099756.3.579.2.544Kazdody77238373 2.0.1.957454.3.579.2.531 Social History DateTypeDetailFacilityStart: 08-17-2022 End: 07-16-4908Khq [facility]: 43-37-3413Gnx [facility]: 08-17-2022 End: 29-20-4318Mujozit smoking status NHISSmokes tobacco dailyT[facility] Hospital Start: 08-05-2019 End: 67-26-8453Ajqpgqc of tobacco useCigarette SmokerCleveland Clinic Fairview Hospitaltart: 08-17-2022 End: 21-51-6251Twbumzpski smoked current (pack per day) - Guxoasll4Vzkcbnsvf ClinicStart: 08-17-2022 End: 69-47-6906Fudjovg intakeCurrent drinker of alcohol (finding)[facility] Hospitaltart: 09-20-2022 End: 58-46-9395Voxihif smoking status NHISSmoker (finding)[facility] statusNo Smoking Status [facility]art: 84-95-8565Fitmdi identityIdentifies as male gender (finding)[facility] Hospitaltart: 73-38-2789Bmsbiz orientationHeterosexual (finding)[facility] Hospitaltart: 07-06-2012 End: 33-02-9914Wuoql Depression Screening Ncahvcrawt9Logyjwafh ClinicStart: 05-13-2023 End: 48-57-3269Pbytkbz use and exposureSmokeless tobacco non-userSelect [facility]ty [facility], Inc Work Phone: Has the [employer], gas, oil, or water company threatened to shut off services in your home in past 12MoNWyandot Memorial HospitalHow often to you have a drink containing alcohol?NeverSelect Medical Specialty Hospital - [facility], IncDo you feel stress - tense, restless, nervous, or anxious, or unable to sleep at night because yourmind is troubled all the time - these days [OSQ]To some extentSelect Medical Specialty Hospital - [facility], Inc Work Phone: (I/We) worried whether (my/our) food would run out before (I/we) got money to buy more.Never trueSelect Medical Specialty [facility], [facility] Work Phone: Start: 58-88-1533Jhx Assigned At BirthUnMercy Health Kings [facility] Hospital Work Phone: Start: 05-04-2023 End: 05-51-1857Phdxeivj to SARS-CoV-2 (event)Not sureSelect Medical Specialty Hospital [facility], Inc Work Phone: Start: 07-02-2023 End: 70-74-3234Ytnbqwy smoking status NHISEx-smokerUnMercy Health Kings Mills HospitalStart: 07-02-2023 End: 37-31-2140Ictboko intakeLifetime non-drinker (finding)[facility] Work Phone: Start: 08-05-2019 End: 06-67-6713Cwezcsd smoking status NHISOccasional tobacco smokerSelect Medical Specialty Hospital - [facility], IncStart: 22-16-6760Abzipwc Commentvery rareUnMercy Health Kings Mills Hospital Work Phone: are you now , , , , never or living with a partner?DivorcedNOMS HealthcareHow hard is it for you to pay for the very basics like food, housing, medical care, and heating Very hardNOMS Healthcare(I/We) worried whether (my/our) food would run out before (I/we) got money to buy more.Often trueNOMS HealthcareThe food that (I/we) bought just didn't last, and (I/we) didn't have money to get more. Sometimes trueNOMS HealthcareStart: 05-27-2024 End: 10-18-0965Rmlceryja beverage intakeEx-drinker (finding)[facility] Work Phone: Start: 08-27-2024 End: 92-52-5956LlzQmuj (finding)[facility] Hospitaltart: 11-20-2024 End: 10-93-3857OCLL Follow upSDOH Follow upUk Healthcare Work Phone: NEGATED: Highlighted rowStart: NINFHistory of tobacco usePassive smokerSelect Medical Specialty Hospital [facility] Work Phone: Medical Equipment Procedure CodeEquipment CodeEquipment Original TextEquipment IdentifierDates Arthroplasty, shoulder, totalTotal reverse shoulder prosthesis ()[id number])[id number] FDAStart: 34-88-1424Uwnsqoleeggc, shoulder, totalTotal reverse shoulder prosthesis ()[id number])[id number] FDAStart: 50-88-8868Tmjbhodxczpz, shoulder, totalTotal reverse shoulder prosthesis ()[id number])[id number] FDAStart: 57-24-0841Dwlsuupnpawf, shoulder, totalTotal reverse shoulder prosthesis ()[id number] FDAStart: 93-16-1015Ahnrgbgihdbo, shoulder, totalTotal reverse shoulder prosthesis ()[id number] FDAStart: 25-03-7986Cilzmlqavalz, shoulder, totalTotal reverse shoulder prosthesis ()[id number] FDAStart: 72-05-6245Avzrgaeoyfez, shoulder, totalTotal reverse shoulder prosthesis ()[id number] FDAStart: 39-62-7174Cwppmlqszjso, shoulder, totalTotal reverse shoulder prosthesis ()[id number] FDAStart: 58-83-6080Khozsgwjuisl, shoulder, totalTotal reverse shoulder prosthesis ([id number])[id number])[id number] FDAStart: 07-15-2024 Goals DatePatient GoalDesired Activity/StatePersonal health goal Functional Status DgnaMdznbjjecoKylsmxBvephgzb14-60-5061Bnnsxaqqwj statusPatient at [facility] Work Phone: [phone] 212-473906-891952-17-4184Qhmslmouxr statusPatient at [facility] Work Phone: 1(464) [phone]hnxaapwd statusPatient at [facility] Work Phone: [phone] statusPatient at [facility] Work Phone: Mental Status DrnbZxxprmjjacOgcbcyMlwvbyhh40-81-8449Jsbbfkgtl functionCognitive Status [facility] at [facility] Work Phone: [phone] 273-426606-308186-01-0452Seojgovot functionCognitive Status [facility] at [facility] Work Phone: 1(663) [phone]nyfgkvx functionCognitive Status [facility] at [facility] Work Phone: [phone]Gdwbbmfth functionCognitive Status [facility] at [facility] Work Phone: Clinical Notes 07-11-2021 to 04-22-2025 Note Date & PvcmHtsbCdmlxutm20-68-9700 Evaluation + Plan note* Assessment & Plan Note - Odilia Ernandez APRN-AIR VALUE TESTER - 04/22/2025 10:57 AM EDTAssociated Problem(s): Shortness of breath Remains a persistent [...] with initiation of Symbicort and hisrescue inhaler. 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 He had chronic total occlusion of the mid LAD he was then transferred to [facility] : May 07, 2023 CABG ALVAREZ-LAD SVG-OM November 2024 TTE with moderate lateral and anterolateral hypokinesis. Recent admit adhf unclear etiology - will proceed with non invasive ischemic work up. January 2025 MPI moderate inferior ischemia. January 30, 2020 5 repeat cardiac cath ALVAREZ-LAD patent SVG-OM patent Mid RCA 50 to 70% Distal RCA 50-70% PDA occluded ycrj-sv-owxvt collaterals Mid circumflex 95-99 (patent SVG-OM) LVEF 40% * Assessment & Plan Note - BEATRICE Johnson - 04/21/2025 1:27 PM EDT Associated Problem(s): Current smoker 'working hard on quitting' Maybe 5 per day Continued every day tobacco use. Have reviewed the negative cardiovascular impact of nicotine. Continues to decline pharmacological assistance. documented in this [facility] Work Phone: 1([phone]) 392-994209-18-2025 Evaluation + Plan note* Assessment & Plan Note - BEATRICE Johnson - 04/22/2025 10:56 AM EDTAssociated Problem(s): BMI 32.0-32.9,adult Reviewed the merits of healthy lifestyle choices on overall cardiovascular health. [facility] Work Phone: 1(688) 401-372409-18-2025 Evaluation + Plan note* Assessment & Plan Note - BEATRICE Johnson - 04/22/2025 10:56 AM EDTAssociated Problem(s): Hyperlipemia High intensity statin January 2025 HDL 69, LDL 63 [facility] Work Phone: 1([phone] 939-454709-18-2025 Evaluation + Plan note* Assessment & Plan Note - BEATRICE Johnson - 04/22/2025 10:56 AM EDTAssociated Problem(s): Cardiomyopathy, ischemic ICM HF improved [...] November 2024: ADHF admit Narrow QRS 82 [facility] Work Phone: 1(233) 942-808409-18-2025 Evaluation + Plan note* Assessment & Plan Note - BEATRICE Johnson - 04/22/2025 10:54 AM EDTAssociated Problem(s): HTN (hypertension) Optimal in office [facility] Work Phone: 1([phone] 738-433609-18-2025 Evaluation + Plan note* Assessment & Plan Note - BEATRICE Johnson - 04/22/2025 10:54 AM EDTAssociated Problem(s): Atherosclerotic heart disease of [place] coronary artery with unspecified sapna na pectoris May 03, 2023 Anterior STEMI Two-vessel PCI of the diagonal branch & the ramus branch with subsequent intra- aortic balloon pump placement. He had chronic total occlusion of the mid LAD he was then transferred to [facility] : May 07, 2023 CABG ALVAREZ-LAD SVG-OM November 2024 TTE with moderate lateral and anterolateral hypokinesis. Recent admit adhf unclear etiology - will proceed with non invasive ischemic work up. January 2025 MPI moderate inferior ischemia. January 30, 2020 5 repeat cardiac cath ALVAREZ-LAD patent SVG-OM patent Mid RCA 50 to 70% Distal RCA 50-70% PDA occluded vftz-zz-nirfs collaterals Mid circumflex 95-99 (patent SVG-OM) LVEF 40% [facility] Work Phone: 1(325) 237-527909-17-2025 Evaluation + Plan note* Assessment & Plan Note - BEATRICE Johnson - 04/21/2025 1:27 PM EDTAssociated Problem(s): Current smoker 'working hard on quitting' Maybe 5 per day Continued every day tobacco use. Have reviewed the negative cardiovascular impact of nicotine. Continues to decline pharmacological assistance. [facility] Work Phone: [phone] 692-726809-17-2025 History of Present illness Narrative* BEATRICE Johnson - 04/21/2025 1:00 PM EDT [...] decline pharmacological assistance. Atherosclerotic heart disease of [place] coronary artery with unspecified angina pectoris [facility] May 03, 2023 Anterior STEMI Two-vessel PCI of the diagonal branch & the ramus branch with subsequent intra- aortic balloon pump placement. He had chronic total occlusion of the mid LAD he was then transferred to [facility] : May 07, 2023 CABG ALVAREZ-LAD SVG-OM November 2024 TTE with moderate lateral and anterolateral hypokinesis. Recent admit adhf unclear etiology - will proceed with non invasive ischemic work up. January 2025 MPI moderate inferior ischemia. January 30, 2020 5 repeat cardiac cath ALVAREZ-LAD patent SVG-OM patent Mid RCA 50 to 70% Distal RCA 50-70% PDA occluded zlqk-cm-ovzob collaterals Mid circumflex 95-99 (patent SVG-OM) LVEF [...] contact the office if new symptoms arise. 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 [place], [place] Please excuse any errors in grammar or translation related to this dictation. Voice recognition software was utilized to prepare this document. documented in this [facility] Work Phone: 1(125) 513-910909-17-2025 Instructions* Patient Instructions* BEATRICE Johnson - 04/21/2025 1:00 PM EDT [...] contact the office if new symptoms arise. 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 [facility] Work Phone: 1([phone]) 304-515909-09-2025 Evaluation note* Diagnosis Onset Date Resolution Status Admit Date COPD, mild acuteSeptember 2024 10:16amDyspnea on exertionacuteSeptember 2024 10:16amGERD (gastroesophageal reflux disease)acuteSept2024 10:16am Nicotine dependence, cigarettes, uncomplicatedacuteSept2024 10:16am Apnea, sleepresolvedSeptember 2024 10:16amCOPD, mildacuteOctober 2024 2:55pmLeft ventricular aneurysmacuteOctober 2024 2:55pmTobacco abuseacute October 2024 2:55pmApnea, sleepresolvedOctober 2024 2:55pmCongestive heart failure (CHF)resolvedOct2024 2:55pmHistory of heart bypass surgeryresolvedOct2024 2:55pm [facility] Work Phone: 1(264) 972-848409-09-2025 Evaluation note* Diagnosis Onset Date Resolution Status Admit Date COPD, mild acuteSept2024 10:16amDyspnea on exertionacuteSeptember 2024 10:16amGERD (gastroesophageal reflux disease)acuteSeptember 2024 10:16am Nicotine dependence, cigarettes, uncomplicatedacuteSept2024 10:16am Apnea, sleepresolvedSeptember 2024 10:16amCOPD, mildacuteOctober 2024 2:55pmTobacco abuseacuteOctober 2024 2:55pmApnea, sleepresolvedOctober 2024 2:55pmCongestive heart failure (CHF)resolvedOctober 2024 2:55pm History of heart bypass surgeryresolvedOctober 2024 2:55pmBenign essential hypertensionacuteOctober 2024 2:34pmBPH with obstruction/lower urinary tract symptomsacuteOctober 2024 2:34pmChronic HFrEF (heart failure with reduced ejection fraction)acuteOctober 2024 2:34pmCOPD (chronic obstructive pulmonary disease)acuteOctober 2024 2:34pmCoronary artery diseaseacuteOctober 2024 2:34pmDysuriaacuteOctober 2024 2:34pm Generalized anxiety disorderacuteOctober 2024 2:34pmLumbar spondylosis acuteOctober 2024 2:34pmMajor depressive disorder, recurrent episode, moderateacuteOctober 2024 2:34pm [facility] Work Phone: 1([phone]) 321-990708-22-2025 History of Present illness Narrative* Juve Mcpherson MD - 03/26/2025 12:01 PM EDTAssociated Problem(s): Major depressive disorder, recurrent episode, moderate (HCC) Worsening symptoms and increase lamictal. Continue cymbalta. * Juve Mcpherson MD - 03/26/2025 12:00 PM EDTAssociated Problem(s): COPD (chronic obstructive pulmonary disease) (HCC) SOB improved with symbicort and continue. Use albuterol PRN. * Juve Mcpherson MD - 03/26/2025 12:00 PM EDTAssociated Problem(s): Actinic keratosis Discussed premalignant nature of lesion and recommended cryo. Used liquid nitrogen to perform 3 freeze thaw cycles and patient tolerated well. Warned will form blister and likely will take multiple treatments. If develop new or worsening symptoms call. * Juve Mcpherson MD - 03/26/2025 12:00 PM EDT Images from the original note [...] HFA 90 mcg/act inhaler documented in this encounterKindred [id number] Telephone encounter Note* Telephone Encounter - Rena Edmondson - 03/23/2025 8:40 AM EDT 1st attempt, unable to leave vm, no vm box set up 2nd, MyChart sent [facility]08-19-2025 Miscellaneous Notes* Telephone Encounter - Rena Edmondson - 03/23/2025 8:40 AM EDT 1st attempt, unable to leave vm, no vm box set up 2nd, MyChart sent * Telephone Encounter - Mohini Hook MD - 03/18/2025 9:34 AM EDT Not seen since 2022. Please complete nonfasting labs and schedule follow up visit. May schedule follow up phone/virtual or office visit with me or 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 for refill. MAY OFFER [facility] CLINIC (VIRTUAL/PHONE ONLY). Otherwise, please defer medication refills to current provider Thank you. * Telephone Encounter - Saumya Duval MA - 03/16/2025 10:16 AM EDT Pharmacy electronically requests the following refill(s) Requested [...] Instance) Lab Orders None documented in this encounterT[facility]08-[facility] Telephone encounter Note * Telephone Encounter - Mohini Hook MD - 03/18/2025 9:34 AM EDT Not seen since 2022. Please complete nonfasting labs and schedule follow up visit. May schedule follow up phone/virtual or office visit with me or 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 for refill. MAY OFFER [facility] CLINIC (VIRTUAL/PHONE ONLY). Otherwise, please defer medication refills to current provider Thank you. [facility]08-12-2025 Telephone encounter Note* Telephone Encounter - Juve Mcpherson MD - 03/16/2025 4:49 PM EDT [facility]red [id number] Miscellaneous Notes* Telephone Encounter - Juve Mcpherson MD - 03/16/2025 4:49 PM EDT documented in this encounterKindred [id number] Telephone encounter Note* Telephone Encounter - Saumya Duval MA - 03/16/2025 10:16 AM EDT Pharmacy electronically requests the following refill(s) Requested [...] Open Future (Single Instance) Lab Orders None [facility]08-07-2025 Evaluation + Plan note* Assessment & Plan Note - BEATRICE Johnson - 03/11/2025 10:12 AM EDTAssociated Problem(s): Hypersomnolence Reports hypersomnolence, snoring and witnessed apnea. Ischemic cardiomyopathy BMI 33 Agrees to referral for sleep study [facility] Work Phone: [phone] Miscellaneous Notes* Assessment & Plan Note - BEATRICE Johnson - 03/11/2025 10:12 AM EDTAssociated Problem(s): Hypersomnolence Reports hypersomnolence, snoring and witnessed apnea. Ischemic cardiomyopathy BMI 33 Agrees to referral for sleep study * Assessment & Plan Note - BEATRICE Johnson - 03/11/2025 10:11 AM EDT Associated Problem(s): Shortness of breath [...] hadordered repeat but inadvertently did not obtain. * Assessment & Plan Note - BEATRICE Johnson - 03/11/2025 10:10 AM EDT Associated Problem(s): BMI 33.0-33.9,adult Reviewed the merits of healthy lifestyle choices on overall cardiovascular health. * Assessment & Plan Note - BEATRICE Johnson - 03/11/2025 10:10 AM EDT Associated Problem(s): Hyperlipemia High intensity statin January 2025 HDL 69, LDL 63 * Assessment & Plan Note - BEATRICE Johnson - 03/11/2025 10:10 AM EDT Associated Problem(s): Cardiomyopathy, ischemic ICM [...] & Plan Note - BEATRICE Johnson - 03/11/2025 10:09 AM EDT Associated Problem(s): HTN (hypertension) Optimal in office * Assessment & Plan Note - BEATRICE Johnson - 03/11/2025 10:09 AM EDT Associated Problem(s): Atherosclerotic heart disease of [place] coronary artery with unspecified angina pectoris May 03, 2023 Anterior STEMI Two-vessel PCI of the diagonal branch & the ramus branch with subsequent intra- aortic balloon pump placement. He had chronic total occlusion of the mid LAD he was then transferred to [facility] : May 07, 2023 CABG ALVAREZ-LAD SVG-OM November 2024 TTE with moderate lateral and anterolateral hypokinesis. Recent admit adhf unclear etiology - will proceed with non invasive ischemic work up. January 2025 MPI moderate inferior ischemia. January 30, 2020 5 repeat cardiac cath ALVAREZ-LAD patent SVG-OM patent Mid RCA 50 to 70% Distal RCA 50-70% PDA occluded dzzb-qi-zwfxk collaterals Mid circumflex 95-99 (patent SVG-OM) LVEF 40% * Assessment & Plan Note - BEATRICE Johnson - 03/10/2025 2:26 PM EDT Associated Problem(s): Current smoker 'working hard on quitting' Maybe 5 per day Continued every day tobacco use. Have reviewed the negative cardiovascular impact of nicotine. Continues to decline pharmacological assistance. documented in this [facility] Work Phone: [phone]) 678-558508-07-2025 Evaluation + Plan note* Assessment & Plan Note - BEATRICE Johnson - 03/11/2025 10:11 AM EDTAssociated Problem(s): Shortness of breath Remains a persistent [...] hadordered repeat but inadvertently did not obtain. [facility] Work Phone: [phone]) [phone] Evaluation + Plan note* Assessment & Plan Note - BEATRICE Johnson - 03/11/2025 10:10 AM EDTAssociated Problem(s): BMI 33.0-33.9,adult Reviewed the merits of healthy lifestyle choices on overall cardiovascular health. [facility] Work Phone: 1([phone]) 855-830308-07-2025 Evaluation + Plan note* Assessment & Plan Note - BEATRICE Johnson - 03/11/2025 10:10 AM EDTAssociated Problem(s): Hyperlipemia High intensity statin January 2025 HDL 69, LDL 63 [facility] Work Phone: 1([phone]) 594-211708-07-2025 Evaluation + Plan note* Assessment & Plan Note - BEATRICE Johnson - 03/11/2025 10:10 AM EDTAssociated Problem(s): Cardiomyopathy, ischemic ICM HF improved [...] November 2024: ADHF admit Narrow QRS 82 [facility] Work Phone: 1([phone]) 178-648308-07-2025 Evaluation + Plan note* Assessment & Plan Note - BEATRICE Johnson - 03/11/2025 10:09 AM EDTAssociated Problem(s): HTN (hypertension) Optimal in office [facility] Work Phone: [phone] 502-653008-07-2025 Evaluation + Plan note* Assessment & Plan Note - BEATRICE Johnson - 03/11/2025 10:09 AM EDTAssociated Problem(s): Atherosclerotic heart disease of [place] coronary artery with unspecified sapna na pectoris May 03, 2023 Anterior STEMI Two-vessel PCI of the diagonal branch & the ramus branch with subsequent intra- aortic balloon pump placement. He had chronic total occlusion of the mid LAD he was then transferred to [facility] : May 07, 2023 CABG ALVAREZ-LAD SVG-OM November 2024 TTE with moderate lateral and anterolateral hypokinesis. Recent admit adhf unclear etiology - will proceed with non invasive ischemic work up. January 2025 MPI moderate inferior ischemia. January 30, 2020 5 repeat cardiac cath ALVAREZ-LAD patent SVG-OM patent Mid RCA 50 to 70% Distal RCA 50-70% PDA occluded fmvc-uc-pgvpp collaterals Mid circumflex 95-99 (patent SVG-OM) LVEF 40% [facility] Work Phone: [phone] Evaluation + Plan note* Assessment & Plan Note - BEATRICE Johnson - 03/10/2025 2:26 PM EDTAssociated Problem(s): Current smoker 'working hard on quitting' Maybe 5 per day Continued every day tobacco use. Have reviewed the negative cardiovascular impact of nicotine. Continues to decline pharmacological assistance. [facility] Work Phone: [phone] History of Present illness Narrative* BEATRICE Johnson - 03/10/2025 2:00 PM EDT Chief Complaint I am not doing too [...] decline pharmacological assistance. Atherosclerotic heart disease of capitan grande band coronary artery with unspecified angina pectoris ([facility]) May 03, 2023 Anterior STEMI Two-vessel PCI of the diagonal branch & the ramus branch with subsequent intra- aortic balloon pump placement. He had chronic total occlusion of the mid LAD he was then transferred to [facility] : May 07, 2023 CABG ALVAREZ-LAD SVG-OM November 2024 TTE with moderate lateral and anterolateral hypokinesis. Recent admit adhf unclear etiology - will proceed with non invasive ischemic work up. January 2025 MPI moderate inferior ischemia. January 30, 2020 5 repeat cardiac cath ALVAREZ-LAD patent SVG-OM patent Mid RCA 50 to 70% Distal RCA 50-70% PDA occluded csnv-qv-ieskk collaterals Mid circumflex 95-99 (patent SVG-OM) LVEF [...] hadordered repeat but inadvertently did not obtain. Hypersomnolence [...] contact the office if new symptoms arise. 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 6 weeks You need to stop smoking. Though it is not easy, more than half of all adults smokers have quit. Weencourage you to write down all the reasons you should quit smoking and set a quit date for yourself. Ask us how we can help. You may also call 1-516-VULI-NOW for free resources and assistance. Odilia Ernandez MSN, YIELD IMPROVEMENT ENGINEER-AIR VALUE TESTER, PMHNP-[facility], [place] Please excuse any errors in grammar or translation related to this dictation. Voice recognition software was utilized to prepare this document. documented in this [facility] Work Phone: [phone]) 934-419508-06-2025 Instructions* Patient Instructions* BEATRICE Johnson - 03/10/2025 2:00 PM EDT [...] contact the office if new symptoms arise. 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 6 weeks You need to stop smoking. Though it is not easy, more than half of all adults smokers have quit. Weencourage you to write down all the reasons you should quit smoking and set a quit date for yourself. Ask us how we can help. You may also call 1-135-MFKT-NOW for free resources and assistance. documented in this [facility] Work Phone: [phone]) 661-404107-24-2025 History of Present illness Narrative* Juve Mcpherson MD - 02/25/2025 11:27 AM EDTAssociated Problem(s): Actinic keratosis Lesion appears to be AK and will return for cryo. * Juve Mcpherson MD - 02/25/2025 11:26 AM EDTAssociated Problem(s): Recurrent depressive disorder, current episode mild Mood controlled with medication and continue at current dose. * Juve Mcpherson MD - 02/25/2025 11:26 AM EDTAssociated Problem(s): Lumbar spondylosis Pain unchanged and use percocet PRN. Discussed risks and benefits of opiate therapy. Warned medication is narcotic and risk of addiction. OARRS reviewed. * Juve Mcpherson MD - 02/25/2025 11:26 AM EDTAssociated Problem(s): Generalized anxiety disorder Mood controlled with medication and continue at current dose. * Juve Mcpherson MD - 02/25/2025 11:26 AM EDTAssociated Problem(s): Coronary artery disease Continued pain and monitor. Follow with cardiology. * Juve Mcpherson MD - 02/25/2025 11:26 AM EDTAssociated Problem(s): Chronic HFrEF (heart failure with reduced ejection fraction) (HCC) Increased edema and increase aldactone. Follow with cardiology. * Juve Mcpherson MD - 02/25/2025 11:26 AM EDTAssociated Problem(s): Benign essential hypertension BP elevated but previously controlled and monitor PRN. * Juve Mcpherson MD - 02/25/2025 10:45 AM EDT Subjective Patient ID: Shaheed Latham is a 59 y.o. male who presents for Follow-up (3m), Fatigue, and Shortness of Breath. Follow up HTN, CHF, CAD, depression, anxiety, and pain. Patient not feeling well today. Continues to have SOB with exertion. Continues to have chest discomfort. Cath few weeks ago showed blockage buttoo small to stent. Added imdur. Continues to have severe fatigue with exertion. Notice worsening edema and increased swelling in feet and hands. Weight up 8 pounds in past month. Checking BP PRN andtypically controlled. BP elevated today. Taking medication daily and tolerating without side effects. Mood controlled with medication. Not as down or sad and feels happier. Interacting well with others and able to do more. Anxiety stable. Not as stressed out or overwhelmed. Not as nervous or worry as much. Not as singh or irritable. Pain unchanged. Pain in low back, hands, and shoulder. Pain withactivity and walking. Harder to work or stay [...] will return for cryo. documented in this encounterKindred [id number] Evaluation + Plan note* Assessment & Plan Note - BEATRICE Johnson - 02/24/2025 2:42 PM EDT Associated Problem(s): Shortness of breath Remains a persistent complaint. Short of breath at rest and with exertion. No evidence orthopnea orPND. No benefit from initiation of diuretic. Former smoker but denies history of COPD. We will complete PFTs [facility] Work Phone: [phone]) [phone] Evaluation + Plan note* Assessment & Plan Note - BEATRICE Johnson - 02/24/2025 2:42 PM EDTAssociated Problem(s): BMI 31.0-31.9,adult Reviewed the merits of healthy lifestyle choices on overall cardiovascular health. [facility] Work Phone: [phone] Evaluation + Plan note* Assessment & Plan Note - BEATRICE Johnson - 02/24/2025 2:42 PM EDTAssociated Problem(s): Hyperlipemia High intensity statin January 2025 HDL 69, LDL 63 [facility] Work Phone: [phone] 399-575507-23-2025 Miscellaneous Notes* Assessment & Plan Note - BEATRICE Johnson - 02/24/2025 2:42 PM EDTAssociated Problem(s): Shortness of breath Remains a persistent complaint. Short of breath at rest and with exertion. No evidence orthopnea orPND. No benefit from initiation of diuretic. Former smoker but denies history of COPD. We will complete PFTs * Assessment & Plan Note - BEATRICE Johnson - 02/24/2025 2:42 PM EDT Associated Problem(s): BMI 31.0-31.9,adult Reviewed the merits of healthy lifestyle choices on overall cardiovascular health. * Assessment & Plan Note - BEATRICE Johnson - 02/24/2025 2:42 PM EDT Associated Problem(s): Hyperlipemia High intensity statin January 2025 HDL 69, LDL 63 * Assessment & Plan Note - BEATRICE Johnson - 02/24/2025 2:41 PM EDT Associated Problem(s): Cardiomyopathy, ischemic ICM [...] & Plan Note - BEATRICE Johnson - 02/24/2025 2:40 PM EDT Associated Problem(s): HTN (hypertension) Borderline in the office today * Assessment & Plan Note - BEATRICE Johnson - 02/24/2025 2:40 PM EDT Associated Problem(s): Atherosclerotic heart disease of capitan grande band coronary artery with unspecified angina pectoris May 03, 2023 Anterior STEMI Two-vessel PCI of the diagonal branch & the ramus branch with subsequent intra- aortic balloon pump placement. He had chronic total occlusion of the mid LAD he was then transferred to [facility] : May 07, 2023 CABG ALVAREZ-LAD SVG-OM November 2024 TTE with moderate lateral and anterolateral hypokinesis. Recent admit adhf unclear etiology - will proceed with non invasive ischemic work up. January 2025 MPI moderate inferior ischemia. January 30, 2020 5 repeat cardiac cath ALVAREZ-LAD patent SVG-OM patent Mid RCA 50 to 70% Distal RCA 50-70% PDA occluded fncl-ia-ascjo collaterals Mid circumflex 95-99 (patent SVG-OM) LVEF 40% Presents today where he continues to report dyspnea on exertion and somewhat atypical chest pain (only occurs at rest and not with heavy exertion). Will add long-acting nitrates. He has also been a longstanding smoker denies any prior history of COPD but will check PFTs. * Assessment & Plan Note - BEATRICE Johnson - 02/23/2025 11:50 AM EDT Associated Problem(s): Current smoker 'working hard on quitting' Maybe 5 per day Continued every day tobacco use. Have reviewed the negative cardiovascular impact of nicotine. Continues to decline pharmacological assistance. documented in this [facility] Work Phone: [phone]) [phone] Evaluation + Plan note* Assessment & Plan Note - BEATRICE Johnson - 02/24/2025 2:41 PM EDTAssociated Problem(s): Cardiomyopathy, ischemic ICM HF [...] November 2024: ADHF admit Narrow QRS 82 [facility] Work Phone: [phone] Evaluation + Plan note* Assessment & Plan Note - BEATRICE Johsnon - 02/24/2025 2:40 PM EDTAssociated Problem(s): HTN (hypertension) Borderline in the office today [facility] Work Phone: [phone] Evaluation + Plan note* Assessment & Plan Note - BEATRICE Johnson - 02/24/2025 2:40 PM EDTAssociated Problem(s): Atherosclerotic heart disease of capitan grande band coronary artery with unspecified sapna na pectoris May 03, 2023 Anterior STEMI Two-vessel PCI of the diagonal branch & the ramus branch with subsequent intra- aortic balloon pump placement. He had chronic total occlusion of the mid LAD he was then transferred to [facility] : May 07, 2023 CABG ALVAREZ-LAD SVG-OM November 2024 TTE with moderate lateral and anterolateral hypokinesis. Recent admit adhf unclear etiology - will proceed with non invasive ischemic work up. January 2025 MPI moderate inferior ischemia. January 30, 2020 5 repeat cardiac cath ALVAREZ-LAD patent SVG-OM patent Mid RCA 50 to 70% Distal RCA 50-70% PDA occluded htpg-ru-pppam collaterals Mid circumflex 95-99 (patent SVG-OM) LVEF 40% Presents today where he continues to report dyspnea on exertion and somewhat atypical chest pain (only occurs at rest and not with heavy exertion). Will add long-acting nitrates. He has also been a longstanding smoker denies any prior history of COPD but will check PFTs. [facility] Work Phone: [phone] 530-373007-22-2025 Evaluation + Plan note* Assessment & Plan Note - BEATRICE Johnson - 02/23/2025 11:50 AM EDTAssociated Problem(s): Current smoker 'working hard on quitting' Maybe 5 per day Continued every day tobacco use. Have reviewed the negative cardiovascular impact of nicotine. Continues to decline pharmacological assistance. [facility] Work Phone: [phone] History of Present illness Narrative* BEATRICE Johnson - 02/23/2025 11:30 AM EDT Chief Complaint I am still short of breath Reason for Visit Patient presents to the office today for outpatient follow-up for testing follow-up. Last evaluated in clinic by myself December 2024. At that time, resume Jardiance. A subsequent perfusionstudy showed moderate inferior ischemia. January 29, 2025 [...] on exertion has been somewhat of a persistentcomplaint and sometimes is worsened with the humidity [...] right-lower field reveals decreased breath sounds. Examination ofthe left-lower field reveals decreased breath sounds. Decreased [...] decline pharmacological assistance. Atherosclerotic heart disease of capitan grande band coronary artery with unspecified angina pectoris ([facility]) May 03, 2023 Anterior STEMI Two-vessel PCI of the diagonal branch & the ramus branch with subsequent intra- aortic balloon pump placement. He had chronic total occlusion of the mid LAD he was then transferred to [facility] : May 07, 2023 CABG ALVAREZ-LAD SVG-OM November 2024 TTE with moderate lateral and anterolateral hypokinesis. Recent admit adhf unclear etiology - will proceed with non invasive ischemic work up. January 2025 MPI moderate inferior ischemia. January 30, 2020 repeat cardiac cath ALVAREZ-LAD patent SVG-OM patent Mid RCA 50 to 70% Distal RCA 50-70% PDA occluded tlvd-ao-msjgj collaterals Mid circumflex 95-99 (patent SVG-OM) LVEF [...] and to continue withfollowing modifications: - Begin imdur 30mg daily 2. NTG sl sent to pharmacy 3. PFTs (CURRY, smoker) 4. Labs (chem6) 5. Return for follow-up; in the interim, contact the office if new symptoms arise. 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 after testing Odilia Ernandez MSN, YIELD IMPROVEMENT ENGINEER-AIR VALUE TESTER, PMHNP-[facility], [place] Please excuse any errors in grammar or translation related to this dictation. Voice recognition software was utilized to prepare this document. documented in this [facility] Work Phone: [phone] Instructions* Patient Instructions* BEATRICE Johnson - 02/23/2025 11:30 AM EDT [...] and to continue withfollowing modifications: - Begin imdur 30mg daily 2. NTG sl sent to pharmacy 3. PFTs (CURRY, smoker) 4. Labs (chem6) 5. Return for follow-up; in the interim, contact the office if new symptoms arise. 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 after testing documented in this [facility] Work Phone: [phone] [place] [address] Cardiac Catheterization Note Signed Patient: Morgan Latham MR#: [id number] : 1965 Acct:[id number] Age/Sex: 59 / M Adm Date: 5 Loc: Room: Type: [facility] Attending Dr: Hetal Quick DO Copies to: MD Hetal Molina DO~ Cardiac Catheterization (Left) DATE/PROVIDER 01/29/2025 Hetal Quick DO INDICATION 1. Recent episode of acute on chronic left ventricular systolic heart failure 2. ASHD 3. History of severe ischemic cardiomyopathy with improved LV dysfunction 4. History of two-vessel CABG PRE PROCEDURE Frailty Scale: Managing Well ASA Classification: 3 Mallampati Score: Class I POST PROCEDURE Cardiology Post-Op Diagnosis: Other (Severe capitan grande band three-vessel CAD; widely patent ALVAREZ-LAD and S-OM; severe residual diagonal branch and capitan grande band RCA disease; moderate LV dysfunction with ejection fraction 40%) PROCEDURE PROCEDURE MEDICATIONS: Conscious sedation with Versed and fentanyl Approach: Femoral - Rt Left heart catheterization with grafts PROCEDURE DETAILS Utilizing the right femoral approach with a single arterial puncture technique a4 Palestinian sheath wasinserted the right femoral artery over guidewire without anycomplications next preformed JL4, AR mod, HERMINIO, and angled pigtail catheters wereutilized to selectively engage and image left and right coronary arteries, vein graft, mammary graft, and the left ventricle all with imaging, interpretation, pressure measurements, coronary, vein graft, mammary graft, and left ventriculography, HEMOSTASIS Manual hold SUMMARY OF FINDINGS CCS Classification: CCS I - Angina w/heavy exertion Dominance: Right Left Main %: 10 LAD-Prox % Stenosis: 50 LAD- Mid- % Stenosis: 90 LAD- Mid: Calcified, severe 90% disease at the takeoff of the diagonal branch; the remainder of which fills via mammary graft LAD-Distal- % Stenosis: 10 LAD-Distal: Diffuse mild disease Diag 1st - % Stenosis: 90 Diag 1st: 90% ostial diagonal branch with LANCE-3 flow, small to medium size vessel, not bypassed with LANCE-3 flow CIRC- Prox % Stenosis: 50 CIRC- Mid - % Stenosis: 95 CIRC-Mid: 95-99% mid circumflex; the OM marginal branch bypassed CIRC- Distal- & Stenosis: 50 CIRC- Distal: Diffuse severe distal circumflex disease OM-1 -% Stenosis: 99 OM-1: OM branch receives a vein graft the remainder of which has minimal disease distally RCA -% Stenosis: 70 RCA: Heavily calcified, dominant RCA with 50 to 70% mid vessel (RV marginal branch 95%); distal RCA with50 to 70% disease PDA-RT -% Stenosis: 20 PDA-RT: PDA branch receives wuop-tn-fcqaw collaterals and antegrade flow as well, PLV-RT -% Stenosis: 20 LEFT VENTRICLE EF %: 40 Global moderate left ventricular dysfunction, ejection fraction 38 to 40%, LVEDP20 mmHg VALVE-AORTIC Aortic Valve Disease: No VALVE-MITRAL Mitral Valve Disease: No GRAFTS 1st graft: GRAFT(S): ALVAREZ?LAD: Widely patent 2nd graft: GRAFT(S): SVG?OM: Widely patent IMPRESSION 1. Severe three-vessel ASHD 2. Widely patent ALVAREZ?LAD and S?OM 3. Residual severe disease diagonal branch, mid and distal RCA 4. Moderate LV dysfunction with ejection fraction 38-40% (improved post CABG) RECOMMENDATIONS Continue with aggressive GDMT Documented By: Hetal Quick DO 01/29/25 1418 Signed By: 01/29/25 1425 [facility]06-19-2025 History of Present illness Narrative * Juve Mcpherson MD - 01/21/2025 12:06 PM EDTAssociated Problem(s): Acute on chronic HFrEF (heart failure with reduced ejection fraction) (HCC) Recent admission and medication adjusted. Doing well and monitor daily weights. Follow up with cardiology. * Juve Mcpherson MD - 01/21/2025 11:30 AM EDT Images from the original note were not included. Subjective Patient ID: Shaheed Latham is a 59 y.o. male who presents for Follow-up ([facility]/ /[facility]). Hospital follow up from 01/06-01/08 for CHF exacerbation. Developed SOB over 1 week. Increased swellingin both legs. SOB with exertion and not able to lay flat. To ER and x-ray showed fluid overload andBNP 2602. Echo 11/27 showed EF 40-45%. Admitted and given IV lasix. Seen by cardiology and increasedentresto and added jardiance. Doing well since home. [...] (heart failure with reduced ejection fraction) ([facility]) - Primary Recent admission and medication adjusted. Doing well and monitor daily weights. Follow up with cardiology. Relevant Medications furosemide (Lasix) 40 MG tablet documented in this encounterKindred [id number] Discharge summary Author Jud Hutchison [facility] HospitalNote Date/TimeJune 2024 1:20[place] [address] Discharge Summary Signed Patient: Morgan Latham MR#: [id number] : 1965 Acct:[id number] Age/Sex: 59 / M Adm Date: 5 Loc: 4P Room: [address] [place] [address]: Jdu Hutchison MD Copies to: MD Conchita Molina, DO, RES Jud Hutchison MD~ Providers Date of Admission: 01/06/25 Date of Discharge: 01/08/25 Discharging Provider: Jud Hutchison Additional Discharging Provider: Conchita Ivy Primary Care Provider: Juve Mcpherson Consults: 01/06/25 11:39 Consult to Cardiology Routine Comment: Consulting Provider: [facility] Reason For Exam: CHF exacerbation, elevatd [...] presented to the ER via helicopter from [facility] for several days SOB worse for 1-2 [...] presentation. 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 The patient has been seen and examined. [...] Patient Ordered By: Jud Hutchison Follow Up: [facility] [Outside] - 01/25/25 12:30 pm (Previous scheduled [...] Sodium 140, Potassium 3.7, Chloride 104, Carbon Lxqtcuh42.2, Anion Gap 11.5, BUN 17, Creatinine 1.18, Est GFR (CKD- EPI) > 60.0, Glucose 106 H, Calcium 8.8 Documented By: Jud Hutchison MD 01/08/25 1221 Signed By: <Electronically signed by Jud Hutchison MD> 01/08/25 1320 <Electronically signed by DO TRACIE Ivy> 01/08/25 1246 [facility] Work Phone: 1([phone]) 180-713106-06-2025 [place] [address] Discharge Summary Signed Patient: Morgan Latham MR#: [id number] : 1965 Acct:[id number] Age/Sex: 59 / M Adm Date: 5 Loc: Room: [address] [place] [address]: Jud Hutchison MD Copies to: MD Conchita Molina DO, TRACIE Hutchison MD~ Providers Date of Admission: 01/06/25 Date of Discharge: 01/08/25 Discharging Provider: Jud Hutchison Additional Discharging Provider: Conchita Ivy Primary Care Provider: Juve Mcpherson Consults: 01/06/25 11:39 Consult to Cardiology Routine Comment: Consulting Provider: [facility] Reason For Exam: CHF exacerbation, elevatd jeanette Has Provider Been Notified: Yes Date of [...] presented to the ER via helicopter from [facility] for several days SOB worse for 1-2 [...] presentation. 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 The patient has been seen and examined. [...] Patient Ordered By: Jud Hutchison Follow Up: [facility] [Outside] - 01/25/25 12:30 pm (Previous scheduled [...] Sodium 140, Potassium 3.7, Chloride 104, Carbon Tasevrh51.2, Anion Gap 11.5, BUN 17, Creatinine 1.18, Est GFR (CKD- EPI) > 60.0, Glucose 106 H, Calcium 8.8 Documented By: Jud Hutchison MD 01/08/25 1221 Signed By: 01/08/25 1320 01/08/25 1246 [facility]06-05-2025 Consult note Author Hetal Quick [facility] HospitalNote Date/TimeJune 2024 5:25[place] [address] Cardiology Consult Note Signed Patient: Morgan Latham MR#: [id number] : 1965 Acct:[id number] Age/Sex: 59 / M Adm Date: 5 Loc: Room: [address] [place] [address] Type: ADM IN Attending Dr: Jud Hutchison MD Copies to: MD Jud Molina MD W Scott Sheldon, DO~ Cardiology HPI History of Present Illness Consult Date: 01/07/25 Reason for Consult: Acute on chronic HFpEF, ASHD, COPD HPI: Mr. aLtham is a 59 year old male seen [...] history of ischemic heart disease, prior anteroapical SC (old), andsubsequent non-STEMI in April 2023, catheterization at that time revealed chronic occlusion of the LAD, and subtotal occlusions of the OM circumflex branch and diagonal branch both of which underwent balloon angioplasties, and unable to cross the chronic LAD occlusion. At that time intra-aortic balloon pump was placed, he was transferred to [facility], underwent two- vessel coronary bypass graft surgerywith [...] with possible discharge within next 24+ hours [facility] Medical History (Updated 01/06/25 @ 13:13 [...] Lymph # (Auto) 0.6 L (1.00-4.8) x10E3/uL [place] # (Auto) 0.6 (0.0-0.8) x10E3/uL Eos # [...] By: Hetal Quick DO 01/07/251720 Signed By: <Electronically signed by Hetal Quick DO> 01/07/25 992 [facility] Work Phone: 1([phone]) 571-799006-05-[address] [address] Cardiology Consult Note Signed Patient: Morgan Latham MR#: [id number] : 1965 Acct:[id number] Age/Sex: 59 / M Adm Date: 5 Loc: 4P Room: 7U2656-1 Type: ADM IN Attending Dr: Jud Hutchison [...] This is a very similar episode to November 2 months ago. He has known history of ischemic heart disease, prior anteroapical SC (old), andsubsequent non-STEMI in April 2023, catheterization at that time revealed chronic occlusion of the LAD, and subtotal occlusions of the OM circumflex branch and diagonal branch both of which underwent balloon angioplasties, and unable to cross the chronic LAD occlusion. At that time intra-aortic balloon pump was placed, he was transferred to [facility], underwent two- vessel coronary bypass graft surgerywith [...] with possible discharge within next 24+ hours [facility] Medical History (Updated 01/06/25 @ 13:13 [...] Lymph # (Auto) 0.6 L (1.00-4.8) x10E3/uL [place] # (Auto) 0.6 (0.0-0.8) x10E3/uL Eos # [...] Hetal Quick DO 01/07/251720 Signed By: 01/07/251724 [facility]06-05-2025 Progress note Author Jud Hutchison [facility] HospitalNote Date/TimeJune 2024 2:27[place] [address] Hospitalist Progress Note Signed Patient: Morgan Latham MR#: [id number] : 1965 Acct:[id number] Age/Sex: 59 / M Adm Date: 5 Loc: Room: [address] [place] [address] Type: ADM IN Attending Dr: Jud Hutchison [...] - full code Progress note written by medical pathology teacher. The patient has been seen and examined. [...] <Electronically signed by DO TRACIE Ivy> 01/07/25 1300 [facility] Work Phone: [phone]) 589-103806-05-2025 Progress [place] [address] Hospitalist Progress Note Signed Patient: Morgan Latham MR#: [id number] : 1965 Acct:[id number] Age/Sex: 59 / M Adm Date: 5 Loc: Room: [address] [place] [address] Type: ADM IN Attending Dr: Jud Hutchison [...] Ampul.Neb INHALATION 01/06/26 15:59 3 ml QID.RESP CRAMEN Administration Amlodipine Besylate 5 mg 01/07/25 09:00 [...] 01/07/25 09:00 01/07/25 08:55 Duloxetine 60 Mg Capsule.Dr PO 01/07/26 08:59 60 mg QAM CARMEN [...] - full code Progress note written by medical pathology teacher. The patient has been seen and examined. [...] Hutchison MD 01/07/25 1220 Signed By: 01/07/25 1427 01/07/25 1306 [facility]06-04-2025 Evaluation note* Diagnosis Onset Date Resolution Status Admit Date Acute exacerbation of chronic obstructiv e airways [facility] 11:38amApnea, sleepresolvedJune 2024 11:38am Congestive heart failure (CHF)resolved[facility] 2024 11:38amHistory of heart bypass surgeryresolved[facility] 2024 11:38amIschemic cardiomyopathyresolvedFormerly [facility] 2024 11:38am [facility] Work Phone: 1(620) 515-836306-04-2025 Radiology [facility] [place] [address] CT Scan Report Signed Patient: Morgan Latham MR#: [id number] : 1965 Acct:[id number] Age/Sex: 59 / M ADM Date: 5 Loc: ER Room: Type: [facility] ER Attending Dr: Copies to: [...] Browning M.D. 01/06/2025 12:07 PM Dictation Location: [place] [address] Transcribed By: [facility] 01/06/25 1207 Dictated By: Robinson Browning MD 01/06/25 1150 Signed By: 01/06/25 1201 [facility] Work Phone: 1(134) 561-962305-09-2025 Evaluation + Plan note* Assessment & Plan Note - BEATRICE Johnson - 12/11/2024 1:14 PM EDTAssociated Problem(s): BMI 31.0-31.9,adult Reviewed the merits of healthy lifestyle choices on overall cardiovascular health. [facility] Work Phone: [phone]) 448-146805-09-2025 Evaluation + Plan note* Assessment & Plan Note - BEATRICE Johnson - 12/11/2024 1:14 PM EDTAssociated Problem(s): Hyperlipemia High intensity statin Will be managed by hawa Britton for annual labs T [facility] Work Phone: [phone] Evaluation + Plan note* Assessment & Plan [...] 2023. 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 He had chronic total occlusion of the mid LAD he was then transferred to [facility] : May 07, 2023 CABG ALVAREZ-LAD SVG-OM [...] to decline pharmacological assistance. documented in this [facility] Work Phone: [phone] Evaluation + Plan note* Assessment & Plan Note - BEATRICE Johnson - 12/11/2024 1:12 PM EDTAssociated Problem(s): HTN (hypertension) Optimal with medication compliance [facility] Work Phone: [phone] Evaluation + Plan note* Assessment & Plan Note - BEATRICE Johnson - 12/11/2024 1:12 PM EDTAssociated Problem(s): Atherosclerotic heart disease of [place] coronary artery with unspecified sapna na pectoris May 03, 2023 Anterior STEMI Two-vessel PCI of the diagonal branch & the ramus branch with subsequent intra- aortic balloon pump placement. He had chronic total occlusion of the mid LAD he was then transferred to [facility] : May 07, 2023 CABG ALVAREZ-LAD SVG-OM Current activity at 4 METS without concerning symptoms November 2024 TTE with moderate lateral and anterolateral hypokinesis. Recent admit adhf unclear etiology - will proceed with non invasive ischemic work up. [facility] Work Phone: [phone] Evaluation + Plan note* Assessment & Plan Note - BEATRICE Johnson - 12/11/2024 10:39 AM EDTAssociated Problem(s): Current smoker 'working hard on quitting' Maybe 5 per day Continued every day tobacco use. Have reviewed the negative cardiovascular impact of nicotine. Continues to decline pharmacological assistance. [facility] Work Phone: [phone] History of Present illness Narrative* BEATRICE Johnson [...] November 2024: Patient was recently hospitalized at [facility]. The patient wasseen in Cardiology consult with subsequent cardiovascular management by [facility]. Hospitalization records have been reviewed. Reason for Cardiology Consultation: ADHF Consulting Account Manager Relief: Dr. Quick Cardiovascular testing: TTE EF 45-50% [...] decline pharmacological assistance. Atherosclerotic heart disease of [place] coronary artery with unspecified angina pectoris ([facility] May 03, 2023 Anterior STEMI Two-vessel PCI of the diagonal branch & the ramus branch with subsequent intra- aortic balloon pump placement. He had chronic total occlusion of the mid LAD he was then transferred to [facility] : May 07, 2023 CABG ALVAREZ-LAD SVG-OM [...] contact the office if new symptoms arise. 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 as scheduled You need to stop smoking. Though it is not easy, more than half of all adults smokers have quit. Weencourage you to write down all the reasons you should quit smoking and set a quit date for yourself. Ask us how we can help. You may also call 4-118-SSJX-NOW for free resources and assistance. Odilia Ernandez MSN, YIELD IMPROVEMENT ENGINEER-AIR VALUE TESTER, PMHNP-[facility] [place], [place] Please excuse any errors in grammar or translation related to this dictation. Voice recognition software was utilized to prepare this document. documented in this [facility] Work Phone: [phone]) 441-702605-09-2025 Instructions* Patient Instructions* BEATRICE Johnson - 12/11/2024 [...] contact the office if new symptoms arise. 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 as scheduled You need to stop smoking. Though it is not easy, more than half of all adults smokers have quit. Weencourage you to write down all the reasons you should quit smoking and set a quit date for yourself. Ask us how we can help. You may also call 1-033-LLER-NOW for free resources and assistance. documented in this [facility] Work Phone: [phone]) 473-372305-07-2025 History of Present illness Narrative* Saul Gonzales [...] procedure below.) SINONASAL ENDOSCOPY WITH DEBRIDEMENT (CPT 76282-V) Due to the patient's chronic sinusitis/chronic rhinitis, [...] Problem List Diagnosis Atherosclerotic heart disease of [place] coronary artery with unspecified angina pectoris STEMI [...] day., Disp: , Rfl: documented in this [facility] Work Phone: 1(400) 386-368404-24-2025 History of Present illness Narrative* Juve Mcpherson [...] 59 y.o. male who presents for Follow-up ([facility] f/up for copd). Hospital follow up from [...] chest w IV contrast documented in this encounterKindred [id number] [place] [address] Discharge Summary Signed Patient: Morgan Latham MR#: [id number] : 1965 Acct:[id number] Age/Sex: 59 / M Adm Date: 5 Loc: Room: [address] [place] [address]: Kermit Iraheta MD Copies to: MD Kermit Molina MD~ Providers Date of Admission: 11/18/24 Date of Discharge: 11/20/24 Discharging Provider: Kermit Iraheta Primary Care Provider: Juve Mcpherson Consults: 11/18/24 21:00 Consult to Cardiology Routine Comment: Consulting Provider: [facility] Reason For Exam: CHF exacerbation Has Provider [...] cardiomyopathy, HTN, and HLD who presented [facility] ER on 11/18/24 for SOB x5 [...] call to reschedule if needed. ) Odilia Ernandez, YIELD IMPROVEMENT ENGINEER [Nurse Practitioner] - 12/11/24 10:00 am Exam [...] % (Auto) N/A, Lymph % (Auto) N/A, [place] % (Auto) N/A, Eos % (Auto) N/A, Baso % (Auto) N/A, Nucleat RBC Rel Count N/A, Neut # (Auto) N/A, Lymph # (Auto) N/A, [place] # (Auto) N/A, Eos # (Auto) N/A, [...] MD 11/20/24 1213 Signed By: 11/22/24 193 [facility]04-18-2025 [place] [address] Cardiology Progress Note Signed Patient: Morgan Latham MR#: [id number] : 1965 Acct:[id number] Age/Sex: 59 / M Adm Date: 5 Loc: Room: [address] [place] [address] Type: ADM IN Attending Dr: Kermit Iraheta [...] history of ischemic heart disease, prior anteroapical SC (old), andsubsequent non-STEMI in April 2023, catheterization at that time revealed chronic occlusion of the LAD, and subtotal occlusions of the OM circumflex branch and diagonal branch both of which underwent balloon angioplasties, and unable to cross the chronic LAD occlusion. At that time intra-aortic balloon pump was placed, he was transferred to [facility], underwent two- vessel coronary bypass graft surgerywith [...] % (Auto) N/A Lymph % (Auto) N/A [place] % (Auto) N/A Eos % (Auto) N/A Baso % (Auto) N/A Nucleat RBC Rel Count N/A Neut # (Auto) N/A Lymph # (Auto) N/A [place] # (Auto) N/A Eos # (Auto) N/A [...] DO 11/20/24 1209 Signed By: 11/20/24 1210 [facility]04-17-2025 Consult note Author Hetal Quick [facility] HospitalNote Date/TimeApril 2024 4:[place] [address] Cardiology Consult Note Signed Patient: Morgan Latham MR#: [id number] : 1965 Acct:[id number] Age/Sex: 59 / M Adm Date: 5 Loc: 3T Room: [address] [place] [address] Type: ADM IN Attending Dr: Kermit Iraheta [...] history of ischemic heart disease, prior anteroapical SC (old), andsubsequent non-STEMI in April 2023, catheterization at that time revealed chronic occlusion of the LAD, and subtotal occlusions of the OM circumflex branch and diagonal branch both of which underwent balloon angioplasties, and unable to cross the chronic LAD occlusion. At that time intra-aortic balloon pump was placed, he was transferred to [facility], underwent two- vessel coronary bypass graft surgerywith [...] with possible discharge within next 24+ hours [facility] Medical History (Updated 11/18/24 @ 18:59 [...] # (Auto) 0.6 L 1.0 (1.00-4.8) x10E3/uL [place] # (Auto) 0.7 0.8 (0.0-0.8) x10E3/uL Eos [...] <Electronically signed by Hetal Quick DO> 11/19/241647 [facility] Work Phone: [phone]) 297-116304-17-2025 Progress note Author Kermit Iraheta [facility] Date/TimeApril 2024 3:[place] [address] Hospitalist Progress Note Signed Patient: Morgan Latham MR#: [id number] : 1965 Acct:[id number] Age/Sex: 59 / M Adm Date: 5 Loc: Room: [address] [place] [address] Type: ADM IN Attending Dr: Kermit Iraheta [...] 81 Mg Tablet. PO 11/19/25 08:59 QAM [facility] Atorvastatin Calcium 80 mg 11/19/24 09:00 Atorvastatin 80 Mg Tablet PO 11/19/25 08:59 QAM [facility] Budesonide/Formoterol Fumarate 2 puff 11/18/24 21:30 11/18/24 22:04 Budesonide/Formoterol 160-4.5 Mcg 60 Puff/6 Gm Hfa.Aer.Ad INHALATION 11/18/25 21:29 2 puff BID CARMEN Administration Clopidogrel Bisulfate 75 mg 11/19/24 09:00 Clopidogrel Bisulfate 75 Mg Tablet PO 11/19/25 08:59 QAM CARMEN Cyanocobalamin 500 mcg 11/19/24 09:00 Cyanocobalamin 500 Mcg Tablet PO 11/19/25 08:59 QAM [facility] Duloxetine HCl 60 mg 11/19/24 09:00 Duloxetine 60 Mg Capsule. PO 11/19/25 08:59 QAM [facility] Furosemide 20 mg 11/19/24 08:00 Furosemide 20 Mg/2 Ml Vial IV-PUSH 11/19/25 07:59 BID@0800,1600 [facility] Heparin Sodium (Porcine) 5,000 unit 11/18/24 21:00 [...] CODE Documented By: Kermit Iraheta MD 11/19/24 1762 Signed By: <Electronically signed by Kermit Iraheta MD> 11/19/24 [facility] Work Phone: 1(854) 710-163604-17-2025 Consult [place] [id number] Cardiology Consult Note Signed Patient: Morgan Latham MR#: [id number] : 1965 Acct:[id number] Age/Sex: 59 / M Adm Date: 5 Loc: Room: [address] [place] [address] Type: ADM IN Attending Dr: Kermit Iraheta [...] history of ischemic heart disease, prior anteroapical SC (old), andsubsequent non-STEMI in April 2023, catheterization at that time revealed chronic occlusion of the LAD, and subtotal occlusions of the OM circumflex branch and diagonal branch both of which underwent balloon angioplasties, and unable to cross the chronic LAD occlusion. At that time intra-aortic balloon pump was placed, he was transferred to [facility], underwent two- vessel coronary bypass graft surgerywith [...] with possible discharge within next 24+ hours [facility] Medical History (Updated 11/18/24 @ 18:59 [...] # (Auto) 0.6 L 1.0 (1.00-4.8) x10E3/uL [place] # (Auto) 0.7 0.8 (0.0-0.8) x10E3/uL Eos [...] By: Hetal Quick DO 11/19/241641 Signed By: 11/19/248 [facility]04-17-2025 [place] [address] Hospitalist Progress Note Signed Patient: Morgan Latham MR#: [id number] : 1965 Acct:[id number] Age/Sex: 59 / M Adm Date: 5 Loc: Room: [address] [place] [address] Type: ADM IN Attending Dr: Kermit Iraheta [...] 81 Mg Tablet. PO 11/19/25 08:59 QAM CARMEN Atorvastatin Calcium 80 mg 11/19/24 09:00 Atorvastatin 80 Mg Tablet PO 11/19/25 08:59 QAM CAR[facility] Budesonide/Formoterol Fumarate 2 puff 11/18/24 21:30 11/18/24 22:04 Budesonide/Formoterol 160-4.5 Mcg 60 Puff/6 Gm Hfa.Aer.Ad INHALATION 11/18/25 21:29 2 puff BID CARMEN Administration Clopidogrel Bisulfate 75 mg 11/19/24 09:00 Clopidogrel Bisulfate 75 Mg Tablet PO 11/19/25 08:59 QAM [facility] Cyanocobalamin 500 mcg 11/19/24 09:00 Cyanocobalamin 500 Mcg Tablet PO 11/19/25 08:59 QAM [facility] Duloxetine HCl 60 mg 11/19/24 09:00 Duloxetine 60 Mg Capsule. PO 11/19/25 08:59 QAM [facility] Furosemide 20 mg 11/19/24 08:00 Furosemide 20 Mg/2 Ml Vial IV-PUSH 11/19/25 07:59 BID@0800,1600 [facility] Heparin Sodium (Porcine) 5,000 unit 11/18/24 21:00 [...] 40 mg 11/19/24 09:00 Pantoprazole 40 Mg Tablet.Dr PO 11/19/25 08:59 BID CARMEN Prednisone 40 [...] MD 11/19/24 0755 Signed By: 11/19/24 1557 [facility]04-17-2025 History and physical note Author Sabi Choudhury [facility] HospitalNote Date/TimeApril 2024 3:12[place], [place] [address] Hospitalist H&P Signed Patient: Morgan Latham MR#: [id number] : 1965 Acct:[id number] Age/Sex: 59 / M Adm Date: 5 Loc: Room: [address] [place] [address] Type: ADM IN Attending Dr: Lissa Beasley [...] 99.3 but vitals are otherwise stable. His T7zwguoujkvo is 96% onroom air. CXR showed cardiomegaly, [...] Endocrine Endocrine: Reports fatigue and Reports palpitations [facility] Medical History Head injury Eczema Macular degeneration Myocardial infarct Spondylolisthesis, lumbar region Chronic depression Arthritis of carpometacarpal (CMC) joint of left thumb Anxiety GERD (gastroesophageal reflux disease) Smoker History of COVID-19 2019 Rotator cuff tear, left Biceps muscle tear [...] % (Auto) 11.1 % (.) 11/18/24 18:05 [place] % (Auto) 14.4 % (.) 11/18/24 18:05 Eos % (Auto) 3.2 % (.) 11/18/24 18:05 Baso % (Auto) 0.8 % (.) 11/18/24 18:05 Nucleat RBC Rel Count 0.1 /100 WBC (0-0.5) 11/18/24 18:05 Neut # (Auto) 3.6 x10E3/uL (1.8-7.7) 11/18/24 18:05 Lymph # (Auto) 0.6 x10E3/uL (1.00-4.8) L 11/18/24 18:05 [place] # (Auto) 0.7 x10E3/uL (0.0-0.8) 11/18/24 18:05 [...] failure (CHF): (2) Ischemic cardiomyopathy: Plan Mr. Lathma is a 59yo male with a PMH [...] 11/19/24311 <Electronically signed by DO TRACIE Ivy> 11/18/24 [facility] Work Phone: 1(448) 994-687704-17-2025 [place] [address] Hospitalist H&P Signed Patient: Morgan Latham MR#: [id number] : 1965 Acct:[id number] Age/Sex: 59 / M Adm Date: 5 Loc: 3T Room: [address] [place] [address] Type: ADM IN Attending Dr: Lissa Beasley MD Copies to: MD Sabi Molina MD Obaydah M Daromar, MD Rebekah M Ivy, DO, RES~ HPI DATE OF EXAMINATION: 11/18/24 [...] 99.3 but vitals are otherwise stable. His D5srtmjwwfld is 96% onroom air. CXR showed cardiomegaly, [...] Endocrine Endocrine: Reports fatigue and Reports palpitations [facility] Medical History Head injury Eczema Macular degeneration Myocardial infarct Spondylolisthesis, lumbar region Chronic depression Arthritis of carpometacarpal (CMC) joint of left thumb Anxiety GERD (gastroesophageal reflux disease) Smoker History of COVID-19 2019 Rotator cuff tear, left Biceps muscle tear [...] % (Auto) 11.1 % (.) 11/18/24 18:05 [place] % (Auto) 14.4 % (.) 11/18/24 18:05 Eos % (Auto) 3.2 % (.) 11/18/24 18:05 Baso % (Auto) 0.8 % (.) 11/18/24 18:05 Nucleat RBC Rel Count 0.1 /100 WBC (0-0.5) 11/18/24 18:05 Neut # (Auto) 3.6 x10E3/uL (1.8-7.7) 11/18/24 18:05 Lymph # (Auto) 0.6 x10E3/uL (1.00-4.8) L 11/18/24 18:05 [place] # (Auto) 0.7 x10E3/uL (0.0-0.8) 11/18/24 18:05 [...] MD 11/18/242038 Signed By: 11/19/24 0312 11/18/242111 [facility]04-16-2025 Evaluation note* Diagnosis Onset Date Resolution Status Admit Date Congestive heart failure (CHF) acuteApril 2024 7:36pmHistory of heart bypass surgeryacuteApril 2024 7:36pmIschemic cardiomyopathyacuteApril 2024 7:36pmLeft ventricular aneurysmacuteApril 2024 7:36pmTobacco abuseacuteApril 2024 7:36pm [facility] Work Phone: 1([phone]) 913-297904-16-2025 Evaluation note* Diagnosis Onset Date Resolution Status Admit Date Congestive heart failure (CHF) acuteApril 2024 7:36pmHistory of heart bypass surgeryacuteApril 2024 7:36pmIschemic cardiomyopathyacuteApril 2024 7:36pmLeft ventricular aneurysmacuteApril 2024 7:36pmTobacco abuseacuteApril 2024 7:36pm Acute exacerbation of chronic obstructive airways diseaseacuteJune 2024 11:38amApnea, sleepacuteJune 2024 11:38amCHF (congestive heart failure) acuteJune 2024 11:38am [facility] Work Phone: 1(911) 840-820004-16-2025 Evaluation note* Diagnosis Onset Date Resolution Status Admit Date Congestive heart failure (CHF) acuteApril 2024 7:36pmHistory of heart bypass surgeryacuteApril 2024 7:36pmIschemic cardiomyopathyacuteApril 2024 7:36pmLeft ventricular aneurysmacuteApril 2024 7:36pmTobacco abuseacuteApril 2024 7:36pm Acute exacerbation of chronic obstructive airways diseaseacuteJune 2024 11:38amApnea, sleepacuteJune 2024 11:38amCongestive heart failure (CHF) acuteJune 2024 11:38amHistory of heart bypass surgeryacuteJune 2024 11:38amIschemic cardiomyopathyacuteJune 2024 11:38am [facility] Work Phone: 1(967) 641-664404-16-2025 Evaluation note* Diagnosis Onset Date Resolution Status Admit Date Left ventricular aneurysm acuteApril 16th, 2025 7:36pmTobacco abuseacuteApril 2024 7:36pmCongestive heart failure (CHF)resolvedApril 2024 7:36pmHistory of heart bypass surgeryresolvedApril 2024 7:36pmIschemic cardiomyopathyresolvedApril 2024 7:36pmAcute exacerbation of chronic obstructive airways diseaseresolvedJune 2024 11:38amApnea, sleepresolvedJune 2024 11:38amCongestive heart failure (CHF)resolvedJune 2024 11:38amHistory of heart bypass surgery resolvedJune 2024 11:38amIschemic cardiomyopathyresolvedJune 2024 11:38am [facility] Work Phone: 1(413) 125-371301-22-2025 History of Present illness Narrative* Alyssa Quick, [...] on May 03 2023, was transferred to [facility] and underwent two-vessel PCI of the diagonal branch of the ramus branch, discovered to have chronic occlusion of the LAD, underwent subsequent intra-aortic balloon pump placement. He had chronic total occlusionof the mid LAD he was then transferred to [facility] and underwent revascularization witha ALVAREZ to the [...] the opportunity for 10 minutes today to vp & general counsel him on smoking cessation and will reinitiate NicoDerm patches. He is off his Jardiance altogether following one of the surgeries mentioned above due to side effect of dizziness. There was no cost constraints. Will have him follow-up with nurse practitioner in 6 months, [facility] and I will see him again within [...] Disp: , Rfl: Assessment/Plan 1. 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 History of PTCA 3. ST elevation myocardial infarction (STEMI), unspecified artery (Multi) 4. Congestive heart failure, NYHA class 2 and ACC/AHA stage C 5. Cardiomyopathy, ischemic 6. Primary hypertension 7. Mixed hyperlipidemia 8. BMI 31.0-31.9,adult 9. Current smoker Scribe Attestation By signing my name below, IJuanita LPN Scribe attest that this documentation has been [...] exam, discussion and plan. documented in this [facility] Work Phone: 1(532) 829-271401-22-2025 Instructions* Patient Instructions* Juanita De La Torre [...] through Care Everywhere. * Heart Healthy Diet (Setswana) documented in this [facility] Work Phone: 1(648) 968-994601-08-2025 History of Present illness Narrative* Saul Gonzales [...] Problem List Diagnosis Atherosclerotic heart disease of [place] coronary artery with unspecified angina pectoris STEMI [...] ethmoidal sinusitis Decreased sense of smell Acute SC, anterior wall (Multi) Cardiomyopathy, ischemic Hyperlipemia BMI [...] procedure below.) SINONASAL ENDOSCOPY WITH DEBRIDEMENT (CPT 34488-I): Due to the patient's chronic sinusitis/chronic rhinitis, [...] Chronic sinusitis s/p bilateral endoscopic sinus surgery 7/26/24 2. Distant history of significant midface trauma; [...] have asked him to reach out to gallo to discuss next steps and this could [...] Signature: Saul Gonzales MD documented in this [facility] Work Phone: 1(660) 638-818212-05-2024 Evaluation note* Diagnosis Onset Date Resolution Status Admit Date Arthritis of left glenohumeral joint acuteDecember 2023 9:26amPre-op examacuteDecember 2023 9:26amTear of left supraspinatus tendonacuteDecember 2023 9:26amStatus post reverse total arthroplasty of left shoulderacuteDecember 2023 10:45amStatus post reverse total arthroplasty of left shoulderacuteJanuary 2024 9:04am [facility] Work Phone: 1(652) 810-807212-03-2024 History of Present illness Narrative* Juve Mcpherson [...] (Kenalog) 0.5 % cream documented in this encounterKindred [id number] History of Present illness Narrative* Saul Gonzales [...] Problem List Diagnosis Atherosclerotic heart disease of [place] coronary artery with unspecified angina pectoris STEMI [...] ethmoidal sinusitis Decreased sense of smell Acute SC, anterior wall (Multi) Cardiomyopathy, ischemic Hyperlipemia BMI [...] (Please see procedure below.) SINONASAL ENDOSCOPY (CPT 53111): To better evaluate the patient's symptoms, sinonasal [...] Signature: Saul Gonzales MD documented in this [facility] Work Phone: 1(210) 553-521009-19-2024 History of Present illness Narrative* Juve Mcpherson [...] referral to General Surgery documented in this encounterKindred [id number] Telephone encounter Note* Telephone Encounter - Carmen Altamirano - 03/31/2024 2:53 PM EDT Called patient Unable to LVM due to voicemail not being set up. Sent letter in regards to scheduling as directed below Please call and schedule follow up visit. Temporary medication refilled Thank you. [facility]08-27-2024 Miscellaneous Notes* Telephone Encounter - Carmen Altamirano [...] Instance) Lab Orders None documented in this encounterT[facility] Telephone encounter Note * Telephone Encounter - [...] above. Please process accordingly. Mohini Hook MD [facility] [facility] Telephone encounter Note* Telephone Encounter - Melissa [...] Open Future (Single Instance) Lab Orders None [facility]08-10-2024 History of Present illness Narrative* Saul Gonzales [...] Problem List Diagnosis Atherosclerotic heart disease of cap[place] band coronary artery with unspecified angina pectoris ([facility]) STEMI (ST elevation myocardial infarction) (Multi) Post-op [...] ethmoidal sinusitis Decreased sense of smell Acute SC, anterior wall (Multi) Cardiomyopathy, ischemic Hyperlipemia BMI [...] (Please see procedure below.) SINONASAL ENDOSCOPY (CPT 20935-17): To better evaluate the patient's symptoms, sinonasal [...] Signature: Saul Gonzales MD. documented in this [facility] Work Phone: 1(245) 256-296706-12-2024 History of Present illness Narrative* Saul Gonzales [...] Problem List Diagnosis Atherosclerotic heart disease of cap[place] band coronary artery with unspecified angina pectoris ([facility]) STEMI (ST elevation myocardial infarction) (Multi) Post-op [...] ethmoidal sinusitis Decreased sense of smell Acute SC, anterior wall (Multi) Cardiomyopathy, ischemic Hyperlipemia BMI [...] (Please see procedure below.) SINONASAL ENDOSCOPY (CPT 73378): To better evaluate the patient's symptoms, sinonasal [...] Signature: Saul Gonzales MD documented in this [facility] Work Phone: [phone]) 694-750904-30-2024 History of Present illness Narrative* Alyssa Quick, [...] STEMI on May 03, was transferred to [facility] and underwent two-vessel PCI of the diagonal branch of the ramus branch with subsequent intra-aortic balloon pump placement. He had chronic total occlusion of the mid LAD he was then transferred to [facility] and underwent revascularization with a ALVAREZ to [...] clear him for his upcoming surgeries, will vp & general counsel him in regards to withholding antiplatelet [...] patch, Rfl: 0 Assessment/Plan 1. 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 (CMS-HCC) Follow Up In Cardiology 2. ST elevation myocardial infarction (STEMI), unspecified artery (Multi) 3. Congestive heart failure, NYHA class 2 and ACC/AHA stage C (Multi) 4. Cardiomyopathy, ischemic 5. Primary hypertension 6. Mixed hyperlipidemia 7. Arteriosclerosis of arterial coronary artery bypass graft 8. Currently attempting to quit smoking 9. BMI 31.0-31.9,adult 10. Other fatigue Scribe Attestation By signing my name below, IDonna LPN Scribe attest that this documentation has been [...] exam, discussion and plan. [facility] Work Phone: [phone]) 284-335404-30-2024 Instructions* Patient Instructions* Hailey Yip CMA - [...] time of your visit. documented in [facility] Work Phone: [phone] Evaluation + Plan note* Assessment & Plan Note - BEATRICE Johnson - 11/13/2023 10:36 AM EDTAssociated Problem(s): Currently attempting to quit smoking Last couple days has been smoking 10 per day [facility] Work Phone: [phone] Miscellaneous Notes* Assessment & Plan Note - BEATRICE Johnson - 11/13/2023 10:36 AM EDTAssociated Problem(s): Currently attempting to quit smoking Last couple days has been smoking 10 per day documented [facility] Work Phone: [phone] History of Present illness Narrative* BEATRICE Johnson [...] Addressed This Visit Atherosclerotic heart disease of cap[place] grande band coronary artery with unspecified angina pectoris (CMS/HCC) [...] contact the office if new symptoms arise. 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 2 weeks You need to stop smoking. Though it is not easy, more than half of all adults smokers have quit. Weencourage you to write down all the reasons you should quit smoking and set a quit date for yourself. Ask us how we can help. You may also call 9-694-BNHH-NOW for free resources and assistance. documented in this [facility] Work Phone: [phone]) 387-816004-10-2024 Instructions* Patient Instructions* BEATRICE Johnson - 11/13/2023 [...] contact the office if new symptoms arise. 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 2 weeks You need to stop smoking. Though it is not easy, more than half of all adults smokers have quit. Weencourage you to write down all the reasons you should quit smoking and set a quit date for yourself. Ask us how we can help. You may also call 4-778-XHIVNOW for free resources and assistance. [facility] Work Phone: [phone]) 371-339703-20-2024 Evaluation + Plan note* Assessment & Plan Note - BEATRICE Johnson - 10/23/2023 2:57 PM EDTAssociated Problem(s): Currently attempting to quit smoking Is using nicoderm patches [facility] Work Phone: [phone] Miscellaneous Notes* Assessment & Plan Note - BEATRICE Johnson - 10/23/2023 2:57 PM EDTAssociated Problem(s): Currently attempting to quit smoking Is using nicoderm patches documented in this [facility]Un[facility] Work Phone: [phone]) 282-504603-20-2024 History of Present illness Narrative* Odilia Ernandez, YIELD IMPROVEMENT ENGINEER-AIR VALUE TESTER - 10/23/2023 2:30 PM EDT Chief Complaint [...] contact the office if new symptoms arise. 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 3 weeks You need to stop smoking. Though it is not easy, more than half of all adults smokers have quit. Weencourage you to write down all the reasons you should quit smoking and set a quit date for yourself. Ask us how we can help. You may also call 3-744-DXKR-NOW for free resources and assistance. Odliia Ernandez MSN, YIELD IMPROVEMENT ENGINEER-AIR VALUE TESTER, PMHNP-[facility] Please excuse any errors in grammar or translation related to this dictation. Voice recognition software was utilized to prepare this document. documented in this [facility] Work Phone: [phone]) 606-417103-20-2024 Instructions* Patient Instructions* BEATRICE Johnson - 10/23/2023 [...] contact the office if new symptoms arise. 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 3 weeks You need to stop smoking. Though it is not easy, more than half of all adults smokers have quit. Weencourage you to write down all the reasons you should quit smoking and set a quit date for yourself. Ask us how we can help. You may also call 9-256-YESB-NOW for free resources and assistance. documented in this [facility] Work Phone: [phone] Evaluation + Plan note* Assessment & Plan Note - BEATRICE Johnson - 10/15/2023 2:38 PM EDTAssociated Problem(s): Currently attempting to quit smoking 4 - 10 per day Did better on nicoderm patches - will provide Continued every day tobacco use. Have reviewed the negative cardiovascular impact of nicotine. [facility] Work Phone: [phone] Miscellaneous Notes* Assessment & Plan Note - BEATRICE Johnson - 10/15/2023 2:38 PM EDTAssociated Problem(s): Currently attempting to quit smoking 4 - 10 per day Did better on nicoderm patches - will provide Continued every day tobacco use. Have reviewed the negative cardiovascular impact of nicotine. documented in this [facility]Un[facility] Work Phone: [phone] 313-298703-12-2024 History of Present illness Narrative* BEATRICE Johnson [...] contact the office if new symptoms arise. 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 one week Odilia Ernandez MSN, YIELD IMPROVEMENT ENGINEER-AIR VALUE TESTER, PMHNP-[facility] Please excuse any errors in grammar or translation related to this dictation. Voice recognition software was utilized to prepare this document. documented in this encounter[facility] Work Phone: [phone] Instructions* Patient Instructions* BEATRICE Johnson - 10/15/2023 [...] contact the office if new symptoms arise. 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 one week documented in this encounterSelect [facility] Work Phone: [phone] Evaluation + Plan note* Assessment & Plan Note - BEATRICE Johnson - 07/04/2023 10:08 AM ESTAssociated Problem(s): Shortness of breath Remains a persistent complaint. Short of breath at rest and with exertion. No evidence orthopnea orPND. No benefit from initiation of diuretic. Former smoker but denies history of COPD. We will complete PFTs [facility] Work Phone: [phone] Miscellaneous Notes* Assessment & Plan Note - [...] EST Associated Problem(s): Atherosclerotic heart disease of cap[place] grande band coronary artery with unspecified angina pectoris ([facility]) May 03, 2023 Anterior STEMI Two-vessel PCI of the diagonal branch & the ramus branch with subsequent intra- aortic balloon pump placement. He had chronic total occlusion of the mid LAD he was then transferred to [facility] : May 07, 2023 CABG ALVAREZ-LAD SVG-OM * Assessment & Plan Note - BEATRICE Johnson - 07/02/2023 1:55 PM EST Associated Problem(s): Former smoker Start at 17 y/o Quit 2007 - 2019 pack per day last 4 years Has been able to abstain since discharge Using nicoderm patches documented in this encounterSelect [facility] Work Phone: [phone] Evaluation + Plan note* Assessment & Plan Note - BEATRICE Johnson - 07/04/2023 10:07 AM ESTAssociated Problem(s): BMI 30.0-30.9,adult Reviewed the merits of healthy lifestyle choices on overall cardiovascular health. [facility] Work Phone: [phone] Evaluation + Plan note* Assessment & Plan Note - BEATRICE Johnson - 07/04/2023 10:07 AM ESTAssociated Problem(s): Hyperlipemia Tolerating high intensity Due for lipids Aug 2023 [facility] Work Phone: [phone] Evaluation + Plan note* Assessment & Plan [...] Has repeat echo scheduled Jul 16, 2023 [facility] Work Phone: [phone] Evaluation + Plan note* Assessment & Plan Note - BEATRICE Johnson - 07/04/2023 10:02 AM ESTAssociated Problem(s): HTN (hypertension) optimal in office [facility] Work Phone: [phone] Evaluation + Plan note* Assessment & Plan Note - BEATRICE Johnson - 07/04/2023 10:02 AM ESTAssociated Problem(s): Atherosclerotic heart disease of cap[place] grande band coronary artery with unspecified sapna na pectoris (CMS/HCC) May 03, 2023 Anterior STEMI Two-vessel PCI of the diagonal branch & the ramus branch with subsequent intra- aortic balloon pump placement. He had chronic total occlusion of the mid LAD he was then transferred to [facility] : May 07, 2023 CABG ALVAREZ-LAD SVG-OM [facility] Work Phone: [phone] Evaluation + Plan note* Assessment & Plan Note - BEATRICE Johnson - 07/02/2023 1:55 PM ESTAssociated Problem(s): Former smoker Start at 17 y/o Quit 2007 - 2019 pack per day last 4 years Has been able to abstain since discharge Using nicoderm patches [facility] Work Phone: [phone] History of Present illness Narrative* BEATRICE Johnson [...] Using nicoderm patches Atherosclerotic heart disease of cap[place] band coronary artery with unspecified angina pectoris (CMS/HCC) May 03, 2023 Anterior STEMI Two-vessel PCI of the diagonal branch & the ramus branch with subsequent intra- aortic balloon pump placement. He had chronic total occlusion of the mid LAD he was then transferred to [facility] : May 07, 2023 CABG ALVAREZ-LAD SVG-OM HTN (hypertension) optimal in office Cardiomyopathy, ischemic ICM HFrEF 30-35% post-op May 2023 TTE At recent [facility] follow up document EF 15-20% (I can [...] contact the office if new symptoms arise. 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 3 weeks Odilia Ernandez MSN, YIELD IMPROVEMENT ENGINEER-AIR VALUE TESTER, PMHNP-[facility] Please excuse any errors in grammar or translation related to this dictation. Voice recognition software was utilized to prepare this document. documented in this encounterSelect [facility] Work Phone: [phone] Instructions* Patient Instructions* BEATRICE Johnson - 07/02/2023 [...] contact the office if new symptoms arise. 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 3 weeks documented in this encounterSelect [facility] Work Phone: [phone] History of Present illness Narrative* Ottoniel Trevino [...] around 15-20%. Patient will f/u with his adjunct nursing faculty - Dr. Quick. documented in this encounterSelect [facility] Work Phone: [phone] History of Present illness Narrative* Alyssa Quick DO - 06/18/2023 1:30 PM EST Sean Latham is a 57 y.o. male Chief Complaint Follow-up 57-year-old gentleman returns following recent two-vessel CABG performed on May 08. He sustainedanterior STEMI on May 03, was transferred to [facility] and underwent two-vessel PCIof the diagonal branch of the ramus branch with subsequent intra-aortic balloon pump placement. He had chronic total occlusion of the mid LAD he was then transferred to [facility] and underwent revascularization with a ALVAREZ to [...] him to cardiac rehab at [facility], reassess his chemistry and BNP [...] ST elevation myocardial infarction (STEMI), unspecified artery ([facility]) 2. 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, unspecified whether cap[place] grande band or transplanted heart (CMS/HCC) 3. Hypertension, unspecified type 4. Coronary arteriography abnormal 5. Acute systolic heart failure (CMS/HCC) 6. S/P CABG x 2 7. HFrEF (heart failure with reduced ejection fraction) ([facility]) 8. Acute SC, anterior wall ([facility]) documented in this encounterSelect [facility] Work Phone: [phone] Instructions* Patient Instructions* Cesar Wadsworth MA - [...] time of your visit. documented in this encounterSelect [facility] Work Phone: [phone] Hospital course Narrative* Jeanette Dexterangie, PRANAV-DATABASE MARKETING SPECIALIST - 05/15/2023 3:41 PM EDT Cardiac Surgery Inpatient Discharge Summary BRIEF OVERVIEW Admitting Provider: Ottoniel Trevino MD PhD Discharge Provider: Ottoniel Trevino MD PhD Primary Care Physician at Discharge: No primary care provider on file. None Account Manager Relief at Discharge: Heart Failure Follow-up with Sherine Anne NP Admission Date: 05/03/2023 Discharge Date: 05/15/2023 Primary Discharge Diagnosis S/p CABG x 2 Secondary Discharge Diagnosis CAD, STEMI, HFrEF Discharge Disposition Final discharge disposition not confirmed Code Status at Discharge: Full Code Active Issues Requiring Follow-up None Outpatient Follow-Up Future Appointments Date Time Provider Department Center 05/23/2023 11:20 AM [facility] [id number] NURSE [id number] Academic 05/24/2023 11:20 AM Sherine Anne APRN-AIR VALUE TESTER [id number] [place] 06/21/2023 9:45 AM Ottoniel Trevino MD PhD [id number] Academic Test Results Pending at Discharge Pending Labs Order Current Status B-type Natriuretic Peptide In process Extra Urine Cadena Tube In process POCT fingerstick glucose In process Urinalysis with Reflex Microscopic and Culture In process DETAILS OF HOSPITAL STAY Presenting Problem/History of Present Illness Atherosclerotic heart disease of cap[place] grande band coronary artery with unspecified angina pectoris (CMS/HCC) [...] urgency. OSH COURSE: He arrived at the [facility] and was seen to have high lateral/anterior ST elevated in leads I andaVL with reciprocal inferolateral changes/ ST depression and elevated trops. Pt was loaded with berlinta and heparin and was life flighted to [facility] where he was taken to the lab clerk. Pt was seen to have multivessel disease on [facility], a balloon pump was placed and pt was started on heparin gtt, and nitro gtt and transferred to [facility] for CABG eval. OPERATIVE PROCEDURES Dr Trevino on 05/07/23 Creation Bypass Graft Coronary Artery [place] CORONARY ARTERY BYP W/VEIN & ARTERY GRAFT [...] tunnel surgery L 1978 - Bicep reconstruction 2020 - R. 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 documented in this [facility] Work Phone: [phone] Hospital Discharge instructions* Discharge Instructions* CHRIS Holt [...] the week following discharge. documented in this [facility] Work Phone: [phone] History of Present illness Narrative* CHRIS Holt [...] urgency. OSH COURSE: He arrived at the [facility] and was seen to have high lateral/anterior ST elevated in leads I andaVL with reciprocal inferolateral changes/ ST depression and elevated trops. Pt was loaded with berlinta and heparin and was life flighted to [facility] where he was taken to the lab clerk. Pt was seen to have multivessel disease on [facility], a balloon pump was placed and pt was started on heparin gtt, and nitro gtt and transferred to [facility] for CABG eval. OPERATIVE PROCEDURES Dr Trevino on 05/07/23 Creation Bypass Graft Coronary Artery [place] CORONARY ARTERY BYP W/VEIN & ARTERY GRAFT 2 VEIN Via median sternotomy on cardiopulmonary bypass urgent coronary artery revascularization 1. ALVAREZ to LAD 2. Saphenous vein graft to OM CTICU course Transfer to 3 on 05/10 [...] Mauro Lund 05/11/2023 10:01 AM Dictation workstation: [id number] IMPRESSION & PLAN: POD #8 s/p CABG [...] needed after 3 months, clear use with adjunct nursing faculty before starting - Reviewed on 05/11 OARRS 30 day MME AVG /day 60 Prophylaxis DVT Prophylaxis - SCDs/TEDS - Ambulation/OOB - Heparin SQ - PPI Code Status: Full Code Dispo - PT/OT recs home - Would benefit from homecare for carepath and RN visits - Anticipate discharge today - Will continue to assess discharge needs CHRIS Holt Cardiac Surgery [facility] Team Pager [phone] 05/15/2023 12:12 PM * Rika Bishop RN - 05/15/2023 11:12 AM EDT 05/15/23 1110 Transitional Care Coordination Progress Note: Patient was discussed during interdisciplinary rounds. Team members present: medical team and TCC Plan per medical team: HF team following, adjusting medications Payer: [facility] Status: Inpatient Discharge disposition: Home w/hc [...] in the unit yesterday. His BP110- 120s/70s. surveillance monitor showed sinus tachycardia at low 100s bpm. [...] 0.5 0.5 0.3 -- ABO: Recent Labs 05/07/23429 ABO O HEME/ENDO: Recent Labs 05/04/23 1700 05/06/23 0518 TSH -- 2.93 HGBA1C 5.9* -- CARDIAC: Recent Labs 05/03/23191405/04/230 05/04/23 1424 05/04/23 1721 05/04/23 1729 05/05/23 1859 LDH 603* -- CANCELED 562* -- -- TROPHS 73,550* 53,345* -- -- 22,510* 17,382* MICRO: No results for input(s): ESR , CRP in the last 22315 hours. No results found for the last [...] pillars. (BB, ARNI, MRA, SGLT2). Lives in [place] and will need followup on [facility]. * Mayda Og, OT - 05/14/2023 12:11 PM EDT Occupational Therapy Evaluation/Treatment Patient Name: Morgan Latham : 1965 Today's Date: 05/14/23 Time Calculation Start Time: 0949 Stop Time: 1012 Time Calculation (min): 23 min Assessment: OT [...] Current Problem: 1. Atherosclerotic heart disease of cap[place] grande band coronary artery with unspecified angina pectoris (CMS/HCC) [...] Access: No concerns Prior Function: Level of [place]: Independent with ADLs and functional transfers, Independent [...] h/o shoulder sx, distal WFL) Outcome Measures: [facility] Daily Activity Putting on and taking off [...] Start: 05/14/23 Expected End: 05/28/23 * Jeanette Perez APRN-DATABASE MARKETING SPECIALIST - 05/14/2023 11:33 AM EDT CARDIAC SURGERY [...] urgency. OSH COURSE: He arrived at the [facility] and was seen to have high lateral/anterior ST elevated in leads I andaVL with reciprocal inferolateral changes/ ST depression and elevated trops. Pt was loaded with berlinta and heparin and was life flighted to [facility] where he was taken to the lab clerk. Pt was seen to have multivessel disease on [facility], a balloon pump was placed and pt was started on heparin gtt, and nitro gtt and transferred to [facility] for CABG eval. OPERATIVE PROCEDURES Dr Trevino on 05/07/23 Creation Bypass Graft Coronary Artery [place] CORONARY ARTERY BYP W/VEIN & ARTERY GRAFT [...] Mauro Lund 05/11/2023 10:01 AM Dictation workstation: [id number] IMPRESSION & PLAN: POD #7 s/p CABG [...] needed after 3 months, clear use with adjunct nursing faculty before starting - Reviewed on 05/11 OARRS 30 day MME AVG /day 60 Prophylaxis DVT Prophylaxis - SCDs/TEDS - Ambulation/OOB - Heparin SQ - PPI Code Status: Full Code Dispo - PT/OT recs home - Would benefit from homecare for carepath and RN visits - Anticipate discharge 1-2 days - Will continue to assess discharge needs CHRIS Holt Cardiac Surgery [facility] Team Pager [phone] 05/14/2023 11:33 AM * CHRIS Holt - [...] urgency. OSH COURSE: He arrived at the [facility] and was seen to have high lateral/anterior ST elevated in leads I andaVL with reciprocal inferolateral changes/ ST depression and elevated trops. Pt was loaded with berlinta and heparin and was life flighted to [facility] where he was taken to the lab clerk. Pt was seen to have multivessel disease on [facility], a balloon pump was placed and pt was started on heparin gtt, and nitro gtt and transferred to [facility] for CABG eval. OPERATIVE PROCEDURES Dr Trevino on 05/07/23 Creation Bypass Graft Coronary Artery [place] CORONARY ARTERY BYP W/VEIN & ARTERY GRAFT [...] Mauro Lund 05/11/2023 10:01 AM Dictation workstation: [id number] IMPRESSION & PLAN: POD #6 s/p CABG [...] needed after 3 months, clear use with adjunct nursing faculty before starting - Reviewed on 05/11 OARRS 30 day MME AVG /day 60 Prophylaxis DVT Prophylaxis - SCDs/TEDS - Ambulation/OOB - Heparin SQ - PPI Code Status: Full Code Dispo - PT/OT recs home - Would benefit from homecare for carepath and RN visits - Anticipate discharge 1-2 days - Will continue to assess discharge needs CHRIS Holt Cardiac Surgery [facility] Team Pager [phone] 05/13/2023 4:08 PM * Guevara Le MD - 05/13/2023 12:29 PM EDT Subjective Data: No overnight events reported. Patient reports walking around the unit. He would have dyspnea on prolonged walking (e.g. >3 lapses). He denies chest pain, palpitations, orthopnea, PND, dizziness, syncope. surveillance monitor showed sinus tachycardia at 106 bpm. His [...] input(s): ESR , CRP in the last 11927 hours. No results found for the last [...] FOLLOWUP: Future Appointments Date Time Provider Department [place] 05/24/2023 11:20 AM Sherine Anne APRN-AIR VALUE TESTER [id number] [place] I saw and evaluated the patient. I [...] pillars. (BB, ARNI, MRA, SGLT2). Lives in [place] and will need followup on [facility]. Guevara Le MD * Mayda Og OT [...] a 57 y.o. male presenting with Mr. Dority 57yo M with PMHx of HTN, DLD, [...] urgency. OSH COURSE: He arrived at the [facility] and was seen to have high lateral/anterior ST elevated in leads I andaVL with reciprocal inferolateral changes/ ST depression and elevated trops. Pt was loaded with berlinta and heparin and was life flighted to [facility] where he was taken to the lab clerk. Pt was seen to have multivessel disease on [facility], a balloon pump was placed and pt was started on heparin gtt, and nitro gtt and transferred to [facility] for CABG eval. OPERATIVE PROCEDURES Dr Trevino on 05/07/23 Creation Bypass Graft Coronary Artery [place] CORONARY ARTERY BYP W/VEIN & ARTERY GRAFT 2 VEIN Via median sternotomy on cardiopulmonary bypass urgent coronary artery revascularization 1. ALVAREZ to LAD 2. Saphenous vein graft to OM CTICU course Transfer to 3 on 05/10 [...] Mauro Lund 05/11/2023 10:01 AM Dictation workstation: [id number] IMPRESSION & PLAN: POD # 5 s/p [...] needed after 3 months, clear use with adjunct nursing faculty before starting - Reviewed on 05/11 OARRS [...] discharge needs BEATRICE Bear Cardiac Surgery [place] [facility] Team Pager [phone] 05/12/2023 1:38 PM * David Reyna MD [...] result verified on 05/04/2023 1339 on specimen/case [id number] called with component RUST for procedure Troponin I, High Sensitivity with [...] GDMT regimen. Discussed with HF attending, Dr. Amadou Lucas. Signed: David Reyna MD Heart Failure service. Associated attestation - Mian Lucas MD - 05/12/2023 1:51 PM EDT I reviewed the resident/fellow's documentation and discussed the patient with the resident/fellow. I agree with the resident/fellow's medical decision making as documented in the note. * Shonna Cid APRN-JOHNATHON - 05/11/2023 2:06 PM EDT CARDIAC SURGERY [...] urgency. OSH COURSE: He arrived at the [facility] and was seen to have high lateral/anterior ST elevated in leads I andaVL with reciprocal inferolateral changes/ ST depression and elevated trops. Pt was loaded with berlinta and heparin and was life flighted to [facility] where he was taken to the lab clerk. Pt was seen to have multivessel disease on [facility], a balloon pump was placed and pt was started on heparin gtt, and nitro gtt and transferred to [facility] for CABG eval. OPERATIVE PROCEDURES Dr Trevino on 05/07/23 Creation Bypass Graft Coronary Artery OH CORONARY ARTERY BYP W/VEIN & ARTERY GRAFT [...] Units Result Value Ref Range PRODUCT CODE [id number] Unit Number [id number] Unit ABO O Unit RH POS XM INTEP COMP Dispense Status RE Blood Expiration Date May 28, 2023 23:59 EDT PRODUCT BLOOD TYPE 5100 UNIT VOLUME 350 PRODUCT CODE [id number] Unit Number [id number] Unit ABO O Unit RH POS XM INTEP COMP Dispense Status RE Blood Expiration Date May 29, 2023 23:59 EDT PRODUCT BLOOD TYPE 5100 UNIT VOLUME 350 PRODUCT CODE [id number] Unit Number [id number] Unit ABO O Unit RH POS XM INTEP COMP Dispense Status RE Blood Expiration Date May 29, 2023 23:59 EDT PRODUCT BLOOD TYPE 5100 UNIT VOLUME 350 PRODUCT CODE [id number] Unit Number [id number] Unit ABO O Unit RH POS XM [...] Mauro Lund 05/11/2023 10:01 AM Dictation workstation: [id number] IMPRESSION & PLAN: POD # 4 s/p [...] needed after 3 months, clear use with adjunct nursing faculty before starting - Reviewed on 05/11 OARRS 30 day MME AVG /day 60 Prophylaxis DVT Prophylaxis - SCDs/TEDS - Ambulation/OOB - Heparin SQ - PPI Code Status: Full Code Dispo - PT/OT recs home - Would benefit from homecare for carepath and RN visits - Anticipate discharge 2-3 days, pending diuresis and 2vcxr - Will continue to assess discharge needs Shonna Cid APRN-AIR VALUE TESTER Cardiac Surgery [place] [facility] Team Pager [phone] 05/11/2023 2:06 PM * Mike Ramirez MD [...] Active Problems: STEMI (ST elevation myocardial infarction) ([facility]/HCC) Acute systolic heart failure ([facility]/HCC) Angina pectoris ([facility]/HCC) 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 Outcome Measures: [facility] Basic Mobility Turning from your back to [...] only Sitting: Supervision or set-up only Transfer Wvw-cv-Uswre: Supervision or set-up only Transfer Yzdhmn-od-Xus: Supervision or set-up only Total Score: 25 [...] Understanding Comment: MITT Precautions, taught by Rhoda Raphael, PT at 05/10/2023 12:40 PM. Learner: Patient Readiness: Acceptance Method: Explanation, Handout, Demonstration Response: Verbalizes Understanding, Demonstrated Understanding Comment: MITT Body Mechanics, taught by Rhoda Raphael, PT at 05/10/2023 12:40 PM. Learner: Patient Readiness: Acceptance Method: Explanation, Handout, Demonstration Response: Verbalizes Understanding, Demonstrated Understanding Comment: MITT Mobility Training, taught by Rhoda Raphael, PT at 05/10/2023 12:40 PM. Learner: Patient Readiness: Acceptance Method: Explanation, Handout, Demonstration Response: Verbalizes Understanding, Demonstrated Understanding Comment: MITT Education Comments No comments found. * Mariela Rene, YIELD IMPROVEMENT ENGINEER-AIR VALUE TESTER - 05/10/2023 7:43 AM EDT CTICU Progress [...] H2O): [5 cm H20] 5 cm H20 OH SUP: [5 cm H20] 5 cm H20 [...] of the field of view.] [Right] IJ [place]-Andree catheter with tip overlying the [right] [main [...] questions or concerns. [place] [phone] ph [phone]. Acute Pain Service * Joshua Chisholm MD [...] Angina pectoris (CMS/HCC) Atherosclerotic heart disease of cap[place] grande band coronary artery with unspecified angina pectoris (CMS/HCC) [...] minutes Joshua Chisholm MD * Mariela Rene, YIELD IMPROVEMENT ENGINEER-AIR VALUE TESTER - 05/09/2023 7:54 AM EDT CTICU Progress [...] EPINEPHrine, 0.01-1 mcg/kg/min, Last Rate: 0.02 mcg/kg/min (05/08/232201) lactated Ringer's, 5 mL/hr, Last Rate: 5 [...] cm H20-8 cm H20] 5 cm H20 OH SUP: [0 cm H20-8 cm H20] 5 cm H20 MAP (cm H2O): [11] 11 LDA: CVC 05/07/23 Double lumen Right Internal jugular (Active) Placement Date/Time: 05/07/23 (c) 7270 Hand Hygiene Performed Prior to CVC Insertion: [...] of the field of view.] [Right] IJ [place]-Andree catheter with tip overlying the [right] [main [...] output and no airleaks. Extubated today to MT with adequate gas exchange. --> - Wean [...] planning needs. At minimum, CS to have C if no higher loc needed. * Sara Sheikh OT - 05/08/2023 10:47 AM EDT Occupational Therapy Therapy Communication Note Patient Name: Morgan Latham Today's Date: 05/08/2023 Discipline: Occupational Therapy Missed Visit Reason: Missed Visit Reason: Patient placed on medical hold Missed Time: Attempt at 1047 Comment: Pt. Is not medically appropriate for OT services at this time. OT to reattempt as medically appropriate and as time permits. * Rhoda Raphael, PT - 05/08/2023 8:36 AM EDT Physical Therapy Therapy Communication Note Patient Name: Morgan Latham Today's Date: 05/08/2023 Discipline: Physical Therapy Missed Visit Reason: Missed Visit Reason: (Pt remains intubated at this time with IABP. Possible removal and extubation today. Will hold however until medically appropriate.) Missed Time: Attempt * Trent Rocha APRN-JOHNATHON - 05/08/2023 8:07 AM EDT CTICU Progress [...] cm H20-9 cm H20] 5 cm H20 OH SUP: [5 cm H20] 5 cm H20 MAP (cm H2O): [13-17] 13 LDA: CVC 05/07/23 Double lumen Right Internal jugular (Active) Placement Date/Time: 05/07/23 (c) 154 Hand Hygiene Performed Prior to CVC Insertion: Yes Site Prep: Chlorhexidine Site Prep Agent has Completely Dried Before Insertion: Yes All 5 Sterile Barriers Used (Gloves, Gown, Cap, Mask, Large Sterile Lydia... Number of days: 0 Introducer 05/07/23 Internal jugular Right (Active) Placement Date/Time: 05/07/23 (c) 154 Hand Hygiene Completed: Yes Location: Internal jugular [...] Units Result Value Ref Range PRODUCT CODE [id number] Unit Number [id number] Unit ABO O Unit RH POS XM INTEP COMP Dispense Status XM Blood Expiration Date May 28, 2023 23:59 EDT PRODUCT BLOOD TYPE 5100 UNIT VOLUME 350 PRODUCT CODE [id number] Unit Number [id number] Unit ABO O Unit RH POS XM INTEP COMP Dispense Status XM Blood Expiration Date May 29, 2023 23:59 EDT PRODUCT BLOOD TYPE 5100 UNIT VOLUME 350 PRODUCT CODE [id number] Unit Number [id number] Unit ABO O Unit RH POS XM INTEP COMP Dispense Status XM Blood Expiration Date May 29, 2023 23:59 EDT PRODUCT BLOOD TYPE 5100 UNIT VOLUME 350 PRODUCT CODE [id number] Unit Number [id number]-* Unit ABO O Unit RH POS XM [...] of the field of view.] [Right] IJ [place]-Andree catheter with tip overlying the [right] [main [...] attending, Dr. Chisholm. Trent Rocha CNP CTICU 24903 I spent 35 minutes in the professional and overall care of this patient. * Laurie Peters LCSW - 05/07/2023 3:11 PM EDT 05/07/23 [...] contact : Morgan Yara / father / [phone], Joel Yara / brother/ [phone] PCP : Dr. Mcpherson / [facility] Planned disposition : TBD Discharge destination : TBD [facility] Status : inpatient Estimated discharge date : [...] discharge plan. Laurie Peters LCSW * Genny Root, PT - 05/07/2023 9:25 AM EDT Physical [...] Angina pectoris (CMS/HCC) Atherosclerotic heart disease of cap[place] grande band coronary artery with unspecified angina pectoris (CMS/HCC) Mr. Latham 57yo M with PMHx of HTN, DLD, GERD, active smoker, and chronic pain (rotator cuff, spinal stenosis, lumbar radiculopathy). He presented to [facility] on 05/03 for worsening chest pain. He [...] and lateral wall. Patient was transferred to [facility] for CABG evaluation of of the LAD. For surgery today Cardiovascular: #Lateral STEMI #ICM/HFrEF (TTE 30-35%, 05/04/23) #HTN #DLD - IABP: R fem, neurovascular checks per protocol - Cardiac Cath (05/03): 100% mid-LAD, diagonal branch FLOOR TILING PROFESSIONAL, S/p Poba diag/ramus Plan - Continue heparin [...] NSTEMI. Patient was found to have a FLOOR TILING PROFESSIONAL of the LAD with good right to [...] abnormal. Subjective Had chest pain this AM, 10, central pressure like at around 5 AM [...] Yellow Appearance, Urine Hazy (N) Clear Specific [place], Urine 1.014 1.005 - 1.035 pH, Urine [...] abnormal Active Problems: Atherosclerotic heart disease of cap[place] grande band coronary artery with unspecified angina pectoris ([facility]) ASSESSMENT/PLAN: Mr. Latham 57yo M with PMHx of HTN, DLD, GERD, active smoker, and chronic pain (rotator cuff, spinal stenosis, lumbar radiculopathy). He presented to [facility] on 05/03 for worsening chest pain. He [...] and lateral wall. Patient was transferred to [facility] for CABG evaluation of of the LAD. [...] Cardiac Cath (05/03): 100% mid-LAD, diagonal branch FLOOR TILING PROFESSIONAL, S/p Poba diag/ramus Plan - Continue heparin [...] abnormal Active Problems: Atherosclerotic heart disease of cap[place] grande band coronary artery with unspecified angina pectoris ([facility]) ASSESSMENT/PLAN: Mr. Latham 57yo M with PMHx of HTN, DLD, GERD, active smoker, and chronic pain (rotator cuff, spinal stenosis, lumbar radiculopathy). He presented to [facility] on 05/03 for worsening chest pain. He [...] and lateral wall. Patient was transferred to [facility] for CABG evaluation of of the LAD. [...] Cardiac Cath (05/03): 100% mid-LAD, diagonal branch FLOOR TILING PROFESSIONAL, S/p Poba diag/ramus Plan - Continue heparin [...] abnormal Active Problems: Atherosclerotic heart disease of cap[place] grande band coronary artery with unspecified angina pectoris (CMS/HCC) ASSESSMENT/PLAN: Mr. Latham 57yo M with PMHx of HTN, DLD, active smoker, GERD, and chronic pain (rotator cuff, spinal stenosis, lumbar radiculopathy). He presented to [facility] ED due to worsening chest pain. He was found to have lateral STEMI (Trop peak . Pt was taken to the lab clerk and found to have multivessel disease with FLOOR TILING PROFESSIONAL of her mid-LAD and diagonal branch. A balloon pump was placed for afterload reduction and pt was transferred to [facility] for CABG eval on nitro and heparin gtt. Will consult cardiacsurgery and try to optimize pt for surgery. Neuro: - No active issues Cardiovascular: #STEMI #HTN #DLD - IABP: R fem, neurovascular checks per protocol - Cardiac Cath (05/03): 100% mid-LAD and diagonal branch FLOOR TILING PROFESSIONAL, Jesus of diag and ramus Plan - [...] YELLOW STRAW,YELLOW Appearance, Urine HAZY CLEAR Specific [place], Urine 1.058 (H) 1.005 - 1.035 pH, [...] c/f STEMI. Pt was taken to the lab clerk and found to have multivessel disease with FLOOR TILING PROFESSIONAL of her mid-LAD and diagonalbranch. A balloon pump was placed for afterload reduction and pt was transferred to [facility] for CABGeval on nitro and heparin gtt. Will consult cardiac surgery and try to optimize pt for surgery. Neuro: - No active issues Cardiovascular: #STEMI #HTN #DLD - IABP: R fem, neurovascular checks per protocol - Cardiac Cath (05/03): 100% mid-LAD and diagonal branch FLOOR TILING PROFESSIONAL, Jesus of diag and ramus Plan - [...] of HTN and HLD, who presented to [facility] with lateral STEMI status post bulbar to diagonal 1 and ramus, and placement of IABP, and subsequently transferred to [facility] CICU for evaluation for CABG [99% of [...] recs. Susan Braun MD documented in this [facility] Work Phone: 1(176) 505-200110-11-2023 Miscellaneous Notes* Post-Procedure Note - Jeanette Perez APRN-DATABASE MARKETING SPECIALIST - 05/15/2023 10:17 AM EDT Ventricular wires [...] pain relief. * Care Plan - Mayda gO OT - 05/14/2023 12:09 PM EDT Problem: [...] Progressing * Hospital Course - Adelina Morrow APRN-AIR VALUE TESTER - 05/12/2023 5:03 PM EDT Morgan Latham [...] urgency. OSH COURSE: He arrived at the [facility] and was seen to have high lateral/anterior ST elevated in leads I andaVL with reciprocal inferolateral changes/ ST depression and elevated trops. Pt was loaded with berlinta and heparin and was life flighted to [facility] where he was taken to the lab clerk. Pt was seen to have multivessel disease on [facility], a balloon pump was placed and pt was started on heparin gtt, and nitro gtt and transferred to [facility] for CABG eval. 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 OR Name: Morgan Latham, : 1965, Age: 57 y.o., , Sex: male Diagnosis Pre-op Diagnosis * Atherosclerotic heart disease of cap[place] grande band coronary artery with unspecified angina pectoris (CMS/HCC) [I25.119] Post-op Diagnosis * Atherosclerotic heart disease of [place] band coronary artery with unspecified angina pectoris (CMS/HCC) [...] pump. Procedures Creation Bypass Graft Coronary Artery 41024 - [place] CORONARY ARTERY BYP W/VEIN & ARTERY GRAFT [...] MD; Cameron Rodas MD C-AA: NESSA Queen Editor In Chief: Carito Pitt MD Global Sales Director: Juvenal Hsieh; Mani Simental Estimated Blood Loss: 200 mL Intra-op Medications: Medication Name Total Dose flu vacc [id number] 6mos up (PF) (Fluarix, Flulaval, Fluzone) syringe [...] -50 mL Specimen: No specimens collected Staff: Museum Specialist: Doni Mari, JUSTUS; Mikhail Laws RN; Live Avery, JUSTUS; Mariela Kunz RN Scrub Person: Raissa Smallwood RN; Octavia Marie; Connor Martinez RN; Alyssa Blair Drains and/or Catheters: Chest Tube 1 Left Pleural 28 Fr (Active) Function -20 cm H2O 05/08/23 08 Chest Tube Air Leak No 05/08/23 08 Patency Intervention Tip/tilt 05/07/232150 Drainage Description Serosanguineous 05/08/23 08 Dressing Status [...] 05/08/23 1600 Surrounding Skin Unable to view 05/08/23799 Output (mL) 0 mL 05/08/23 1600 Chest [...] 28 Fr. (Removed) Function -20 cm H2O 05/08/23 0800 Chest Tube Air Leak No 05/08/23 08 Drainage Description 1 Serosanguineous 05/08/23 08 Dressing Status 1 Clean;Dry;Intact 05/08/23 08 Site Assessment 1 Dry;Clean;Intact 05/08/23799 Surrounding Skin 1 Unable to view 05/08/23799 Drainage Description 2 Serosanguineous 05/07/232150 Dressing Status 2 Clean;Dry 05/08/23 0000 Site Assessment 2 Clean;Dry 05/08/23 0000 Surrounding Skin Intact 05/07/232150 Output (mL) 0 mL 05/08/23 09 Implants Type Name Action Serial No. Heart Valve CANNULA, AORTIC ROOT, 12G - [id number] Used, Not Implanted Heart Valve CANNULA, MULTIPLE PERFUSION SET, 15 - [id number] Used, Not Implanted Heart Valve KIT, CARDIOPLEGIA, VANGUARD HEAT EXCHANGER - [id number] Used, Not Implanted Heart Valve KIT, CELL SAVER, W/COLLECTION SET, 225ML WASH SET - [id number] Used, Not Implanted Cardiac Pacemaker LEAD, PACING, MYOCARDIAL, BIPOLAR, TEMPORARY - [id number] Used, Not Implanted Cardiac Pacemaker LEAD, PACING, MYOCARDIAL, BIPOLAR, TEMPORARY - [id number] Used, Not Implanted Heart Valve PUMP, ROTAFLOW BIOLINE - [id number] Used, Not Implanted Cardiac Pacemaker LEAD, PACING, MYOCARDIAL, BIPOLAR, TEMPORARY - [id number] Used, Not Implanted Heart Valve KIT, CELL SAVER, W/COLLECTION SET, 225ML WASH SET - [id number] Used, Not Implanted Findings: Preoperative transesophageal echocardiogram [...] outside hospital after an acute ST elevation SC. He was taken urgently to the System Developer Associate Manager for an attempt at percutaneous coronary revascularization [...] placed and the patient was transferred to [facility] for further care. Given his young age [...] shift * Pre-Procedure Note - Jeanette Perez APRN-DATABASE MARKETING SPECIALIST - 05/06/2023 8:22 AM EDT Cardiac surgery update: - Plan for CABG with Dr. Trevino 05/07/23 - Type and screen pending - Blood and scrubs ordered for 05/07/23 - NPO at [place] 05/07/23 - Covid swab negative 05/05/23 documented in this [facility] Work Phone: 1(433) 638-566510-09-2023 Nurse Note* Nuha Dhillon RN - 05/13/2023 3:15 PM EDT CHF Clinical Nurse Navigator Documentation Congestive Heart Failure disease education was performed by the Clinical Nurse Navigator with a good understanding: Yes CHF signs and symptoms discussed and when to call adjunct nursing faculty? yes Living With Heart Failure Education booklet? yes Controlling Heart Failure at Home Education? yes CHF Education Teaching Tool? yes Home medication usage? yes, HF-GDMT discussed with patient and its importance. Nutrition Education? low sodium Fluid Restriction Education? 2L or per provider instructions. Can be dependent on volume status. Daily Weight Education? yes Cardiovascular Rehab Referral ordered? Yes Follow-up with Account Manager Relief after discharge education? yes Comments: Met with patient at bedside for heart failure education. Patient verbalized understandingof heart failure education. Provided him with my name and phone number if he has any further questions. Patient scheduled to see Sherine Anne CNP for hospital follow-up as recommended by HF consult. Patient provided apppt. Details. 05/24/2023 11:20am at [facility] Heart Failure education folder provided to patient which includes Living with Heart Failure booklet, Handouts from both and [employer]: 1. HF and Your Ejection Fraction Explained (https://www.heart.org/-/media/Files/Health-Topics/Heart- Failure/VJ-lys-Sbpa-Aquuldxy-Geegtuzy-Fmbmyzcbo.pdf) 2. Self- Check Plan for HF Management (https://www.heart.org/-/media/Files/Health-Topics/Heart-Failu re/WM-Cwgmgro-Fhlapns.pdf) 3. Patient and Health Care Discussion Guide (https://www.heart.org/-/media/Files/Health-Topics/Heart -Failure/Wokzg-Mpyqvqz-Rumgldebao-Guide.pdf) 4. Action plan for Staying Healthy at Home with Heart Failure (https://www.hospitals.org/-/media/F gray/Services/Vyjkl-zpq-Xbqstsyh/UEJ-7153752-Dmcvo0269409-Hwzgt-Gvpkoos.pdf) 5. Medicine Chart for HF Management (https://pdf.[employer]/DS-18807_RAF_Medicine_Chart_02kk_AC_FORM.pdf) 6. BP and Wt monitoring log (created by Myself) 7. - Know your heart failure zones and what to do magnet provided. 8. [facility] contact numbers magnet provided. JUSTUS Wu [phone] * Rosa Isela Almanza - 05/08/2023 10:05 AM EDT Mr. Latham is added for diabetes nurse education consult. He has no history of DM and is receiving SSI per CTICU protocol. Will sign off at this time. documented in this [facility] Work Phone: 1(310) 955-835810-06-2023 Consult note* David Reyna MD - 05/10/2023 5:20 PM EDTAssociated Order(s): Inpatient consult to Heart Failure Inpatient consult to Heart Failure Consult performed by: David Reyna MD Consult ordered by: Mariela Rene APRN-AIR VALUE TESTER Reason for consult: Heart failure management History [...] lateral wall. He was then transferred to [facility]. S/p CABG x 2 (ALVAREZ to LAD, [...] result verified on 05/04/2023 1339 on specimen/case [id number] called with component RUST for procedure Troponin I, High Sensitivity with [...] recommendations. Discussed with HF service attending, Dr. Amadou Lucas. Signed: David Reyna MD Associated attestation [...] typically constant PMH: HTN, DLD, CAD, previous SC, GERD, OA, chronic pain on opioids, history [...] POD1 if [place] [phone] ph [phone]. * Jeanette Perez, YIELD IMPROVEMENT ENGINEER-DATABASE MARKETING SPECIALIST - 05/04/2023 4:41 PM EDTAssociated Order(s): IP CONSULT TO CARDIOTHORACIC SURGERY Reason For Consult CABG Eval History Of Present Illness Morgan Latham is a 57 y.o. male with HTN, DLD, CAD, previous SC, GERD, OA, chronic pain on opioids,history of facial reconstruction, Right eye prosthesis, sinusitis, bilateral rotator cuff tears, and R bicep tear who presented to [facility] with severe chest discomfort at rest for [...] placed with resolution of symptoms. Transferred to [facility] for surgical eval On arrival, patient is hemodynamically stable on heparin gtt with resolved symptoms. Past Medical History HTN, DLD, CAD, previous SC, GERD, OA, chronic pain on opioids, history [...] YELLOW STRAW,YELLOW Appearance, Urine HAZY CLEAR Specific [place], Urine 1.058 (H) 1.005 - 1.035 pH, [...] - Ensure the films are uploaded into [email or web address] - Blood and scrubs will be ordered when surgical date determined I spent 60 minutes in the professional and overall care of this patient. CHRIS Holt documented in this [facility] Work Phone: [phone] [id number] Procedure note* Rudy Plummer MD - 05/08/2023 [...] notified. Trent Rocha CNP documented in this [facility] Work Phone: 1(529) 776-875410-03-2023 History and physical note* Martha Calderon DO [...] complicated by ischemic cardiomyopathy, severe reduced ejection tneewgic30%, and RWMA of the LAD territory and lateral wall. Patient was transferred to [facility] and now s/p CABGx2 on 05/[address] Trevino. PMHx: as above PSHx: carpal tunnel, bicep reconstruction, R shoulder repair, appendectomy, facial reconstruction, R eye prosthesis SocHx: ppd for 20+ OR COURSE: Procedure/Surgeon: CABGx2 (ALVAREZ-LAD, SVG-OM1) with Dr. Trevino on 05/07 Frontliner/Anesthesia: Drs. Rodas/Yoandy CPB time: 84 min Cross clamp time: [...] Internal jugular (Active) Placement Date/Time: 05/07/23 (c) 0929 Hand Hygiene Performed Prior to CVC Insertion: [...] Units Result Value Ref Range PRODUCT CODE L1079A98 Unit Number [id number] Unit ABO O Unit RH POS XM INTEP COMP Dispense Status XM Blood Expiration Date May 28, 2023 23:59 EDT PRODUCT BLOOD TYPE 5100 UNIT VOLUME 350 PRODUCT CODE [id number] Unit Number [id number] Unit ABO O Unit RH POS XM INTEP COMP Dispense Status XM Blood Expiration Date May 29, 2023 23:59 EDT PRODUCT BLOOD TYPE 5100 UNIT VOLUME 350 PRODUCT CODE [id number] Unit Number [id number] Unit ABO O Unit RH POS XM INTEP COMP Dispense Status XM Blood Expiration Date May 29, 2023 23:59 EDT PRODUCT BLOOD TYPE 5100 UNIT VOLUME 350 PRODUCT CODE [id number] Unit Number [id number] Unit ABO O Unit RH POS XM [...] Anesthesia Intraoperative Transesophageal Echocardiogram Result Date: [facility]07[facility]23 [facility] [address] [place] [address] andFax TRANSESOPHAGEAL ECHOCARDIOGRAM REPORT Patient Name: MORGAN LATHAM Reading [id number] Cameron Rodas Physician: Study Date: 05/07/2023 Ordering [id number] CHANI MEDELLIN Provider: MRN/PID: [id number] Fellow: Nurse: Date of /Age: 2 1965 Fleet Mechanic: cornell Gender: M Additional Staff: BSA: m2 Study [...] to flow. EF 40-45%. QUANTITATIVE DATA SUMMARY: [id number] Cameron Rodas MDElectronically signed on 05/07/2023 at 10:18:19 PM Final XR chest 1 view Result Date: 05/07/2023 Interpreted By: Guillaume Jones, Jose Zaldivar STUDY: XR CHEST 1 VIEW; 05/07/2023 7:13 am INDICATION: Signs/Symptoms:eval for pt with baloon pump. COMPARISON: Chest radiograph and CT chest 05/05/2023 ACCESSION NUMBER(S): [id number] ORDERING CLINICIAN: ANDERSON MARTINS FINDINGS: AP radiograph [...] as stated. This study was interpreted at [facility], [place], [place]. MACRO: None Signed by: Guillaume Garcia 05/07/2023 7:46 AM Dictation workstation: [id number] Vascular US carotid artery duplex bilateral Result Date: 05/06/2023 [place] [address] and Vascular Lab Report Carotid Artery Duplex Ultrasound Patient Name: MORGAN LATHAM Reading [id number] Dave Muñiz Physician: Study Date: 05/06/2023 Ordering [id number] JINA ROSADO Provider: MRN/PID: [id number] Technologist: Adin Sanabria RVT Technologist 2: Date of 1965 /Age: years Gender: M Admission Status: Inpatient Location [facility] Performed: Diagnosis/ICD: Encounter for other preprocedural examination-Z01.818; [...] cm/s Right Left ICA/CCA Ratio 1.1 1.6 18493 Dave Muñiz MD Final Vascular US lower extremity vein mapping bilateral Result Date: 05/06/2023 [place] [address] and Vascular Lab Report Pre-op Vein Mapping Lower Patient Name: MORGAN LATHAM Reading [id number] Dave Muñiz Physician: MD Study Date: 05/06/2023 Ordering [id number] JINA ROSADO Provider: MRN/PID: [id number] Technologist: Adin Sanabria RVYaw Technologist 2: Date of 1965 /Age: years Gender: M Admission Status: Inpatient Location [facility] Performed: Diagnosis/ICD: Encounter for other preprocedural examination-Z01.818 [...] Dist Calf GSV Yes None 3.0 mm 36038Ariana Muñiz MD Final CT chest wo IV contrast Result Date: 05/05/2023 Interpreted By: Willie Reis and Meyers Emily STUDY: CT CHEST WO IV CONTRAST; 05/05/2023 10:37 am INDICATION: Signs/Symptoms:Evaluation of aorta for clamping prior to CABG. COMPARISON: None. ACCESSION NUMBER(S): [id number] ORDERING CLINICIAN: JUAN ZAMORA TECHNIQUE: Helical data [...] current exam and extends inferiorly beyond the axmgd-hs-ztmv.Main pulmonary artery and its branches are normal [...] the T4 level and extending beyond the phqss-rz-adhp. 2. Trace bilateral pleural effusions with associated [...] From the Fleischner Society 2017, Radiology. 2017 Feb;284 (1):228-243.) FLETASNEEMNER.ACR.IF.25. Severe coronary artery calcifications. I personally reviewed the images/study, and I agree with the findings as stated above. This study was interpreted at [place], [place]. MACRO: None Signed by: Willie Reis 05/05/2023 11:16 AM Dictation workstation: [id number] XR chest 1 view Result Date: 05/05/2023 Interpreted By: Willie Reis, STUDY: XR CHEST 1 VIEW; 05/05/2023 9:23 am INDICATION: Signs/Symptoms:IABP. COMPARISON: Exam dated 05/03/2020 ACCESSION NUMBER(S): [id number] ORDERING CLINICIAN: JUAN ZAMORA FINDINGS: AP radiograph [...] Willie Reis 05/05/2023 10:11 AM Dictation workstation: [id number] Transthoracic Echo (TTE) Complete Result Date: 05/04/2023 [facility], [address] [place] [address] and TRANSTHORACIC ECHOCARDIOGRAM REPORT Patient Name: MORGAN LATHAM Reading Physician: [id number] Nikos Gay MD Study Date: 05/04/2023 Ordering Provider: [id number] SUSAN BRAUN MRN/PID: [id number] Fellow: Nurse: Date of 1965 Fleet Mechanic: Renate Higgins [facility] /Age: years Gender: M Additional Staff: Height: 172.00 Admit Date: 05/03/2023 Weight: 87.09 Admission Status: Inpatient - Routine BSA: 2.00 m2 [facility] Location: Blood Pressure: 124 /70 mmHg Study Type: TRANSTHORACIC ECHO (TTE) COMPLETE Diagnosis/ICD: Atherosclerotic heart disease of [place] coronary artery with unspecified angina pectoris-I25.119 Indication: Atherosclerotic Heart Disease of [place] Coronary Artery with Angina Pectoris Patient History: [...] LA Area A2C: 25.0 cm2 LA [place] A4C: 6.1 cm LA [place] A2C: 6.3 cm LA Volume Index: 43.4 ml/m2 LA Vol A4C: 81.3 ml LA Vol A2C: 80.2 ml LA Vol BP: 81.6 ml RA VOLUME BY A/L METHOD: Normal Ranges: RA Vol A4C: 25.8 ml (8.3-19.5ml) RA Vol Index A4C: 12.9 ml/m2 RA Area A4C: 12.2 cm2 RA [place] A4C: 4.9 cm AORTA MEASUREMENTS: Normal Ranges: [...] John: 1.60 PulmV Sys John: 69.10 cm/s [id number] Nikos Gay MD Electronically signed on 05/04/2023 at 12:43:31 PM Final XR chest 1 view Result Date: 05/03/2023 Interpreted By: WILLIE REIS MD and NESTOR LAMAS MD Patient Name: MORAGN LATHAM STUDY: CHEST 1 VIEW; 05/03/2023 8:52 pm INDICATION: eval for balloon pump . COMPARISON: None. ACCESSION NUMBER(S): [id number] ORDERING CLINICIAN: ANDERSON MARTINS FINDINGS: AP radiograph [...] as stated. This study was interpreted at [facility], [place], [place]. ADULT CATH Result Date: 05/03/2023 Ordered by an unspecified provider. OUTSIDE CARDIOLOGY SCAN Result Date: 05/03/2023 Ordered by an unspecified provider. Additional Labs: SCVO2: No results found for: [id number] This patient is intubated Reason for patient [...] Patient seen and discussed w attending, Dr. Vora. Martha Calderon DO PGY-4, Anesthesiology CTICU [address]69 * Maty Chambers MD - 05/04/2023 9:51 [...] urgency. OSH COURSE: He arrived at the [facility] and was seen to have high lateral/anterior ST elevated in leads I andaVL with reciprocal inferolateral changes/ ST depression and elevated trops. Pt was loaded with berlinta and heparin and was life flighted to [facility] where he was taken to the lab clerk. Pt was seen to have multivessel disease on [facility], a balloon pump was placed and pt was started on heparin gtt, and nitro gtt and transferred to [facility] for CABG eval. 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 Pt was taken to the lab clerk and found to have multivessel disease with FLOOR TILING PROFESSIONAL of her mid-LAD and diagonalbranch. A balloon pump was placed for afterload reduction and pt was transferred to [facility] for CABGeval on nitro and heparin gtt. Will consult cardiac surgery and try to optimize pt for surgery. Neuro: - No active issues Cardiovascular: #STEMI #HTN #DLD - IABP: R fem, neurovascular checks per protocol - Cardiac Cath (05/03): 100% mid-LAD and diagonal branch FLOOR TILING PROFESSIONAL, Jesus of diag and ramus Plan - [...] from same day's 05/04/2023 [facility] Work Phone: 1(895) 283-582309-19-2023 Evaluation note* Encounter Date Diagnosis Assessment Notes Treatment Notes Treatment Clinical Notes Apr, Other specified postprocedural s tates (ICD-10 - Z98.890) Apr,Tear of left supraspinatus tendon (ICD-10 - M75.102)We will plan on reverse total shoulder replacement surgery. The patient has stated that they do notwant to live in this condition any longer [...] loosening, loss of motion, hematoma, wound problems, prison pain and stiffness are well known problems that can require repeat surgeries. Patient is fully aware that this shoulder may never be the same. We discussed that our team will do everything we can to help achieve the best outcome possible. We will order a CT scan prior to surgery for surgical planning. Apr,re-op exam (ICD-10 - Z01.818) Apr,rthritis of left glenohumeral joint (ICD-10 - M19.012) [facility] Other 09-01-2023 Miscellaneous Notes* Telephone Encounter - Saumya Duval MA - 04/05/2023 8:07 AM EDT another message sent to pt via [employer] due to unsuccessful attempts reaching pt as well as pt reviewing last message from Dr Hook. postponed to make sure that pt reviews results pt is active on [employer] - last checked 04/03 * Telephone Encounter - Natacha Huff RN - 04/04/2023 8:30 AM EDT Called pt Pt is not available per message Please try again later * Telephone Encounter - Mayda Pink RN - 04/03/2023 5:46 PM EDT No Answer. No VM * Telephone Encounter - Mohini Hook MD - 04/03/2023 3:50 PM EDT Please Call patient if MyChart note not read to review results/released to My Chart if tests completed at [facility]: Improved/ normal labs. Continue over [...] posterior to the knee. [facility] History of Present illness Narrative* Lisa Dempsey [...] 01, 2023 8:06 AM documented in this encounterTwin [facility]08-[facility] History of Present illness Narrative* Mohini Hook [...] tunnel syndrome injections/release, see pain clinic for prison for ocean transportation intermediary pain recommend ations, wear braces if helpful, [...] filling 3weeks ago, infected treated with antibiotics Enthesopathy/Marge's/heel/plantar tenderness: L>R carpal tunnel syndrome, had left [...] or urethritis: no Renal/liver disease: fatty liver DATABASE MARKETING SPECIALIST/PNS/sz/cva/cancer disease: no HEME-Cytopenias/LAD/Clots: no Fevers: no Fatigue: [...] TESTS:All Diagnostic tests reviewed for today's visit: [facility] 12/21/22 normal vitamin D 38.5, vitamin b12-397; [facility] 10/01/22 normal vitamin D 45.4, vitamin b12-504; [...] Gina's test, tinel's and roshan tests Swoll JTS:decreased [...] Toe and heel walk normal. 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 cc Elsie Harper MD Answers submitted by the patient for [...] Workers' Compensation? No Do you need an desktop analyst? No [facility] PROMIS CAT V2.0-PHYSICAL FUNCTION-28 DAYS Question 03/31/2023 7:12 PM EDT - Filed by Patient Does your health now limit you in doing two hours of physical labor? Quite a lot Does your health now limit you in doing yard work like raking leaves, weeding, or pushing a manager product marketing? Quite a lot Are you able to [...] body? With MUCH difficulty Bend down to milk pickup truck driver clothing from the floor? With SOME difficulty [...] Mo (range: 0 - 1) 0 MYC RHEUM PHQ-9 QUESTIONS 3-10 Question 03/31/2023 7:23 PM [...] 0 - 27) 20 (Severe Depression) Critical Myc Phq-9 Q9 Score (range: 0 - 4) [...] understand my health Agree documented in this encounterT[facility]08-27-[facility]23 Instructions* Patient Instructions* Mohini Hook MD - [...] toes, sit-ups, using row machine See ortho ocean transportation intermediary pain recommendations per primary care provider/pain clinic Nonfasting labs as scheduled Thank you. [facility] 12/21/22 normal vitamin D 38.5, vitamin b12-397; [facility] 10/01/22 normal vitamin D 45.4, vitamin b12-504; [...] but studies of the true impact of aich-jyy-cpfiynb preparations (such as cold medications) have not [...] for intractable Raynaud's phenomenon. documented in this encounterT[facility]06-[facility]23 Evaluation note* Encounter Date Diagnosis Assessment Notes Treatment Notes Treatment Clinical Notes Jan, Other specified postprocedural s tates (ICD-10 - Z98.890) Patient returns 4 months [...] the injection well with no adverse reaction. Jan,Tear of left supraspinatus tendon (ICD-10 - M75.102) [facility] Other 04-24-2023 Evaluation note* Encounter Date Diagnosis Assessment Notes Treatment Notes Treatment Clinical Notes Nov, Other specified postprocedural s tates (ICD-10 - Z98.890) Nov,Tear of left supraspinatus tendon (ICD-10 - M75.102)Patient instructed on the importance of continued daily shoulder motion exercise and rotator cuff strengthening exercise. Discussed that heavy or strenuous use of the shoulder should be avoided. Patient may slowly progress increased activity as pain allows. A 2/1cc marcaine / kenalog cortisone injection was performed into the subacromial space under sterile technique. Patient tolerated the injection well with no adverse reaction. [facility] Other 03-09-2023 Evaluation note* Encounter Date Diagnosis Assessment Notes Treatment Notes Treatment Clinical Notes Oct, Other specified postprocedural s tates (ICD-10 - Z98.890) As patient did not [...] and heat for pain relief. Call with questions/concerns.If patient has issues down the road with the shoulder, may consider a reverse total shoulder arthroplasty if needed. Oct,Tear of left supraspinatus tendon (ICD-10 - M75.102) [facility] Other 03-06-2023 Miscellaneous Notes* Telephone Encounter - Saumya Duval MA - 10/08/2022 9:49 AM EST Notified patient of below, verbal understanding. * Telephone Encounter - Mohini Hook MD - 10/05/2022 6:16 AM EST Please Call patient if MyChart note not read to review results/released to My Chart if tests completed at [facility]: Improved/ normal vitamin D. take over the counter vitamin D 4000 International Units daily with food. Improved/ normal vitamin b12- continue same intake. Happy to further review and discuss at follow up visit. Continue rest of treatment plan per instructions at last office visit. Thank you. [facility] 10/01/22 normal vitamin D 45.4, vitamin b12-504; [...] Lab results [facility]. Placed on your desk for review. documented in this encounterT[facility] City Hospital02-27-2023 Evaluation note* Encounter Date Diagnosis Assessment Notes Treatment Notes Treatment Clinical Notes Sep, Acute pain of left shoulder (ICD -10 - M25.512) Sep,Tear of left supraspinatus tendon (ICD-10 - M75.102)MRI images reviewed with patient. We will proceed [...] of infection, hardware pullout, cuff repair failure, prison pain and stiffness are well known problems that can require repeat surgeries. Patient is fully aware that this shoulder may never be the same. We discussed that our team will do everything we can to help achieve the best outcome. Sep,re-op examination (ICD-10 - Z01.818) [facility] Other 02-27-2023 Evaluation note* Encounter Date Diagnosis Assessment Notes Treatment Notes Treatment Clinical Notes Sep, Other specified postprocedural s tates (ICD-10 - Z98.890) [facility] Other 02-09-2023 Miscellaneous Notes* Telephone Encounter - [...] Quantity: 16 Each Refills remainin Pharmacy: e- [facility]/pharmacy #[id number] [place] [address] - [address] [place] [address] [place] [address] [address] [facility] [address] Authorizing provider: Mohini Hook MD [address] [facility] [address] Received from: [employer] (Fill History, Ambulatory) Brand or Generic: Generic documented in this encounterTwin City Hospital01-17-2023 Miscellaneous Notes* Telephone Encounter - Melissa Palomino [...] to My Chart if tests completed at [facility]: Low vitamin D maybe associated with fatigue/joint/muscle [...] b12-421, headache 5.3;negative rf<10, quantiferon tb; Pending nick ifa, ccp; 08/17/22 hand xrays-Remote amputation through [...] accordingly. Mohini Hook MD documented in this encounterTwin City Hospital01-16-2023 Evaluation note* Encounter Date Diagnosis Assessment Notes Treatment Notes Treatment Clinical Notes Aug, Acute pain of left shoulder (ICD -10 - M25.512) Aug,Tear of left supraspinatus tendon (ICD-10 - M75.102)We will plan on arthroscopic rotator cuff repair. [...] of infection, hardware pullout, cuff repair failure, prison pain and stiffness are well known problems that can require repeat surgeries. Patient is fully aware that this shoulder may never be the same. We discussed that our team will do everything we can to help achieve the best outcome. Aug,re-op examination (ICD-10 - Z01.818) [facility] Other 01-13-2023 History of Present illness Narrative* [...] IV DATA: Not applicable SIGNED BY: RT Hoa(R) August 17, 2022 2:00 PM documented in this encounterTwin City Hospital01-13-2023 Instructions* Patient Instructions* Mohini Hook MD - [...] toes, sit-ups, using row machine See ortho ocean transportation intermediary pain recommendations per primary care provider/pain clinic [...] but studies of the true impact of sjtz-tww-pslcsmz preparations (such as cold medications) have not [...] should also be avoided. A calcium channel soiris, such as Amlodipine (Norvasc) 2.5mg tablet at night or Procardia, can be used during the winter months for intractable Raynaud's phenomenon. documented in this encounterTwin City Hospital01-13-2023 History of Present illness Narrative* Mohini Hook MD - 08/17/2022 12:58 PM EST NEW CONSULT:RHEUMATOLOGY SERVICE SERVICE DATE: 08/17/2022 SERVICE TIME: 12:58 PM REASON FOR CONSULT: joint paint REQUESTING PHYSICIAN: Elsie Harper MD [address] [facility] [address] PRIMARY CARE PHYSICIAN: Elsie Harper MD Patient's Name: Morgan Latham 1965 [address] [facility] [address] Accompanied by: brother This consult was requested for my medical opinion regarding the rheumatologic evaluation of the patient's joint pain problems, and my final recommendations will be communicated to the requesting health care provider by way of the shared medical record for internal providers or letter via the [facility] Postal Service for external providers. August 17, [...] pain after tooth infection Reports pain 10/10 No falls/fx/trauma/illness/oral sores/rash/hairloss/jaw pain/dysphagia/epistaxis/hemoptysis. No adverse effects [...] filling 3weeks ago, infected treated with antibiotics Enthesopathy/Marge's/heel/plantar tenderness: L>R carpal tunnel syndrome, had left [...] or urethritis: no Renal/liver disease: fatty liver DATABASE MARKETING SPECIALIST/PNS/sz/cva/cancer disease: no HEME-Cytopenias/LAD/Clots: no Fevers: no Fatigue: [...] Prostate exam/PSA:stable Colonoscopy: years ago stable Bone Density:2020 stable History of Fractures:no Height Loss: 2 [...] tunnel syndrome injections/release, see pain clinic for ocean transportation intermediary for prison pain recommendations, wear braces if helpful, may [...] toes, sit-ups, using row machine See ortho prison pain recommendations per primary care provider/pain clinic [...] video & audio (virtual) or phone or vknr-dg-qjxx patient care, completing clinical documentation, obtaining and/or [...] referring physician/Primary care physician : Dear Elsie Harper MD: I had the pleasure of seeing [...] by letter/electronic shared medical records. cc Elsie Harper MD SIGNATURE: Mohini Hook MD PATIENT NAME: Morgan Latham DATE: August 17, 2022 documented in this encounterTwin City Hospital12-19-2022 Evaluation note* Encounter Date Diagnosis Assessment Notes Treatment Notes Treatment Clinical Notes Jul, Acute pain of left shoulder (ICD -10 - M25.512) Jul,Tear of left supraspinatus tendon (ICD-10 - M75.102)We will plan on arthroscopic rotator cuff repair. [...] of infection, hardware pullout, cuff repair failure, prison pain and stiffness are well known problems that can require repeat surgeries. Patient is fully aware that this shoulder may never be the same. We discussed that our team will do everything we can to help achieve the best outcome. [facility] Other 09-19-2022 Evaluation note* Encounter Date Diagnosis Assessment Notes Treatment Notes Treatment Clinical Notes Apr, Traumatic tear of hall praspinatus tendon of left shoulder, initial encounter (ICD-10 - S46.812A) MRI images reviewed with patient. This is an acute rotator cuff tear causing limited function and pain. We are recommending surgical repair as soon as possible. We discussed that this tear will not heal without surgical intervention and may worsen with time potentially becoming more difficult to rep air in the future. Patient would like to wait until August to proceed with surgery. He will returnto office in July. In the meantime , a 2/1cc marcaine / kenalog cortisone injection was performed into the subacromial space under sterile technique. Patient tolerated the injection well with no adverse reaction. Apr,cute pain of left shoulder (ICD-10 - M25.512) [facility] Other 05-02-2022 Evaluation note* Encounter Date Diagnosis Assessment Notes Treatment Notes Treatment Clinical Notes December, Degenerative arthrit is of metacarpophalangeal joint of index finger of left hand (ICD-10 - M19.042) December,Lateral epicondylitis of right elbow (ICD-10 - M77.11)Xrays were reviewed with patient in detail. This [...] tolerated the injection well without adverse reaction. December,rthritis of carpometacarpal (CMC) joint of left thumb (ICD-10 - M18.12)We performed a 3/1cc marcaine / kenalog cortisone injection into the thumb cmc joint under sterile technique. Patient tolerated the injection well without adverse reaction. Additionally we will refer patient to rheumatology for further evaluation. December,ain, joint, multiple sites (ICD-10 - M25.50) [facility] Other 12-07-2021 Evaluation note* Encounter Date Diagnosis [...] multiple joints, may consider referral to rheumatology. Jul,rthritis of carpometacarpal (CMC) joint of left thumb (ICD-10 - M18.12) Jul,eft hand pain (ICD-10 - M79.642) [facility] Other Discharge summary Author Kermit Iraheta [facility]/TimeApril 2024 [place] [id number] Discharge Summary Signed Patient: Morgan Latham MR#: [id number] : 1965 Acct:[id number] Age/Sex: 59 / M Adm Date: 5 Loc: Room: [address] [place] [address]: Kermit Iraheta MD Copies to: MD Kermit Molina MD~ Providers Date of Admission: 11/18/24 Date of Discharge: 11/20/24 Discharging Provider: Kermit Iraheta Primary Care Provider: Juve Mcpherson Consults: 11/18/24 21:00 Consult to Cardiology Routine Comment: Consulting Provider: [place] [facility] Reason For Exam: CHF exacerbation Has Provider [...] cardiomyopathy, HTN, and HLD who presented to [facility] ER on 11/18/24 for SOB x5 [...] % (Auto) N/A, Lymph % (Auto) N/A, [place] % (Auto) N/A, Eos % (Auto) N/A, Baso % (Auto) N/A, Nucleat RBC Rel Count N/A, Neut # (Auto) N/A, Lymph # (Auto) N/A, [place] # (Auto) N/A, Eos # (Auto) N/A, [...] signed by Kermit Iraheta MD> 11/22/24 1932 [facility] Work Phone: Evaluation + Plan note No data available for this section [facility] Work Phone: Evaluation note* Diagnosis Secondary osteoarthritis [...] and metabolic diseases [facility] Secondary osteoarthritis of multiple sites- Primary Osteoarthrosis involving, or with mention of more than one site, but not specified as generalized, multiple sites Vitamin D deficiency Unspecified vitamin D deficiency Vitamin B12 deficiency Other B-complex deficiencies [facility] [place] [facility] Diagnosis Vitamin D deficiency Unspecified vitamin D deficiency [facility] [place] [facility]* Diagnosis Bilateral hand pain Pain in limb [facility] [place] [facility] Diagnosis Secondary osteoarthritis of multiple sites- [...] and metabolic diseases [facility] [place] [facility]* Diagnosis Coronary arteriography abnormal- Primary Other nonspecific abnormal cardiovascular system function study Atherosclerotic heart disease of [place] coronary artery with unspecified angina pectoris (CMS/HCC) [...] (heart failure with reduced ejection fraction) (CMS/HCC) Gastroesophageal reflux disease, unspecified whether esophagitis present Atherosclerotic heart disease of [place] coronary artery with unspecified angina pectoris ([facility]) STEMI (ST elevation myocardial infarction) ([facility]) Acute myocardial infarction, unspecified site, episode of care unspecified Acute systolic heart failure (CMS/HCC) Acute systolic heart failure Angina pectoris (CMS/HCC) Other and unspecified angina pectoris Post-op pain Other acute postoperative pain documented in this encounter [facility] Work Phone: Evaluation note* Diagnosis ST elevation myocardial infarction (STEMI), unspecified artery ([facility]) 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, unspecified whether [place] or transplanted heart ([facility]) Hypertension, unspecified type Coronary arteriography abnormal Other nonspecific abnormal cardiovascular system function study Acute systolic heart failure (CMS/HCC) Acute systolic heart failure S/P CABG x 2 Postsurgical aortocoronary bypass status HFrEF (heart failure with reduced ejection fraction) ([facility]) Acute SC, anterior wall ([facility]) documented in this encounter [facility] Work Phone: Evaluation note* Diagnosis 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 ([facility]) documented in this encounter [facility] Work Phone: Evaluation note* Diagnosis 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 ([facility]/HCC) documented in this encounter [facility] Work Phone: Evaluation note* Diagnosis 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, unspecified whether [place] or transplanted heart ([facility])- Primary S/P CABG x 2 Postsurgical aortocoronary bypass status documented in this encounter [facility] Work Phone: Evaluation note* Diagnosis 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 ([facility])- Primary Cardiomyopathy, ischemic Other specified forms of chronic ischemic heart disease Primary hypertension Unspecified essential hypertension Mixed hyperlipidemia BMI 30.0-30.9,adult Shortness of breath Former smoker Personal history of tobacco use, presenting hazards to health documented in this encounter [facility] Work Phone: Evaluation note* Diagnosis Onset Date Resolution Status Ischemic cardiomyopathy acuteLeft ventricular aneurysmacuteST elevation myocardial infarction (STEMI) of [facility] Work Phone: Evaluation note* Diagnosis Cardiomyopathy, ischemic Other specified forms of chronic ischemic heart disease documented in this encounter [facility] Work Phone: Evaluation note* Diagnosis Edema of left upper arm- Primary BMI 33.0-33.9,adult Currently attempting to quit smoking Coronary arteriography abnormal Other nonspecific abnormal cardiovascular system function study Acute systolic heart failure (CMS/HCC) Acute systolic heart failure Hypervolemia, unspecified hypervolemia type documented in this encounter [facility] Work Phone: Evaluation note* Diagnosis Edema of left upper arm- Primary Hypervolemia, unspecified hypervolemia type Congestive heart failure, NYHA class 2 and ACC/AHA stage C (CMS/HCC) Currently attempting to quit smoking documented in this encounter [facility] Work Phone: Evaluation note* Diagnosis Congestive heart failure, NYHA class 2 and ACC/AHA stage C (CMS/HCC)- Primary Hypervolemia, unspecified hypervolemia type 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 (CMS/HCC) Primary hypertension Unspecified essential hypertension Mixed hyperlipidemia BMI 31.0-31.9,adult Currently attempting to quit smoking documented in this encounter [facility] Work Phone: Evaluation note* Diagnosis 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 (CMS-HCC) ST elevation [...] system function study documented in this encounter [facility] Work Phone: Evaluation note* Diagnosis Onset Date Resolution Status Arthritis of left glenohumeral joint acutePre-op examacuteTear of left supraspinatus tendonacute [facility] Work Phone: Evaluation note* Diagnosis Chronic maxillary sinusitis- Primary Deviated nasal septum Nasal congestion Other diseases of nasal cavity and sinuses Chronic ethmoidal sinusitis documented in this encounter [facility] Work Phone: Evaluation note* Diagnosis Chronic pain of both knees Secondary osteoarthritis of multiple sites Osteoarthrosis involving, or with mention of more than one site, but not specified as generalized, multiple sites [facility] Left shoulder pain, unspecified chronicity [facility] Diagnosis MDD (major depressive disorder), recurrent episode, moderate (CMS/HCC) Lumbar spondylosis Lumbosacral spondylosis without myelopathy [facility] 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- Primary Cardiomyopathy, ischemic Other specified forms of chronic ischemic heart disease Primary hypertension Unspecified essential hypertension Mixed hyperlipidemia BMI 30.0-30.9,adult Shortness of breath Former smoker Personal history of tobacco use, presenting hazards to health Primary hypertension- Primary Unspecified essential hypertension 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 Cardiomyopathy, ischemic Other [...] of chronic ischemic heart disease 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 Primary hypertension Unspecified [...] Primary Hypervolemia, unspecified hypervolemia type 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 Primary hypertension Unspecified essential hypertension Mixed hyperlipidemia BMI 31.0-31.9,adult Currently attempting to quit smoking Chronic maxillary sinusitis- Primary Nasal congestion Other diseases of nasal cavity and sinuses Rhinorrhea Other diseases of nasal cavity and sinuses Nasal crusting documented in this encounter [facility] Work Phone: Evaluation note* Diagnosis Primary hypertension [...] spondylosis without myelopathy [facility]* Diagnosis Primary hypertension (CMS/HCC)- [...] Essential hypertension, benign Coronary artery disease involving [place] coronary artery of [place] heart without angina pectoris (CMS/HCC) Dyshidrotic eczema documented in this encounter [facility]* Diagnosis 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 (CMS-HCC)- Primary Cardiomyopathy, ischemic Other specified forms of chronic ischemic heart disease Primary hypertension Unspecified essential hypertension Mixed hyperlipidemia BMI 30.0-30.9,adult Shortness of breath Former smoker Personal history of tobacco use, presenting hazards to health Primary hypertension- Primary Unspecified essential hypertension 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 (CMS-HCC) Cardiomyopathy, ischemic [...] of chronic ischemic heart disease 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 (CMS-HCC) Primary hypertension [...] Primary Hypervolemia, unspecified hypervolemia type 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 (CMS-HCC) Primary hypertension Unspecified essential hypertension Mixed hyperlipidemia BMI 31.0-31.9,adult Currently attempting to quit smoking Chronic maxillary sinusitis Chronic maxillary sinusitis Deviated nasal septum documented in this encounter [facility] Work Phone: Evaluation note* Diagnosis 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 (CMS-HCC)- Primary Cardiomyopathy, ischemic Other specified forms of chronic ischemic heart disease Primary hypertension Unspecified essential hypertension Mixed hyperlipidemia BMI 30.0-30.9,adult Shortness of breath Former smoker Personal history of tobacco use, presenting hazards to health Primary hypertension- Primary Unspecified essential hypertension 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 (CMS-HCC) Cardiomyopathy, ischemic [...] of chronic ischemic heart disease 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 (CMS-HCC) Primary hypertension [...] Primary Hypervolemia, unspecified hypervolemia type 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 (CMS-HCC) Primary hypertension Unspecified essential hypertension Mixed hyperlipidemia BMI 31.0-31.9,adult Currently attempting to quit smoking Chronic maxillary sinusitis- Primary Chronic ethmoidal sinusitis documented in this encounter [facility] Work Phone: Evaluation note* Diagnosis Lumbar spondylosis Lumbosacral spondylosis without myelopathy documented in this encounter [facility]* Diagnosis Benign essential hypertension (CMS/HCC)- [...] malignant neoplasms, colon documented in this encounter [facility]* Diagnosis Primary hypertension (CMS/HCC)- Primary [...] for long-term current use of medication Dyslipidemia ([facility]/HCC) Other and unspecified hyperlipidemia Gastroesophageal reflux disease without esophagitis Esophageal reflux Obesity (BMI 30-39.9) Screening PSA (prostate specific antigen) Special screening for malignant neoplasm of prostate Colon cancer screening Special screening for malignant neoplasms, colon Preoperative clearance- Primary Unspecified pre-operative examination Primary osteoarthritis of left shoulder Benign essential hypertension (CMS/HCC) Essential hypertension, benign Coronary artery disease involving [place] coronary artery of [place] heart without angina pectoris (CMS/HCC) Dyshidrotic eczema Lumbar spondylosis Lumbosacral spondylosis without myelopathy documented in this encounter [facility]* Diagnosis 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- Primary Cardiomyopathy, ischemic Other specified forms of chronic ischemic heart disease Primary hypertension Unspecified essential hypertension Mixed hyperlipidemia BMI 30.0-30.9,adult Shortness of breath Former smoker Personal history of tobacco use, presenting hazards to health Primary hypertension- Primary Unspecified essential hypertension 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 Cardiomyopathy, ischemic Other [...] of chronic ischemic heart disease 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 Primary hypertension Unspecified [...] Primary Hypervolemia, unspecified hypervolemia type 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 Primary hypertension Unspecified essential hypertension Mixed hyperlipidemia BMI 31.0-31.9,adult Currently attempting to quit smoking Chronic maxillary sinusitis- Primary Nasal crusting Chronic ethmoidal sinusitis Nasal congestion with rhinorrhea Other diseases of nasal cavity and sinuses documented in this encounter [facility] Work Phone: Evaluation note* Diagnosis 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- Primary Cardiomyopathy, ischemic Other specified forms of chronic ischemic heart disease Primary hypertension Unspecified essential hypertension Mixed hyperlipidemia BMI 30.0-30.9,adult Shortness of breath Former smoker Personal history of tobacco use, presenting hazards to health Primary hypertension- Primary Unspecified essential hypertension 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 Cardiomyopathy, ischemic Other [...] of chronic ischemic heart disease 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 Primary hypertension Unspecified essential hypertension Mixed hyperlipidemia BMI 30.0-30.9,adult Former smoker Personal history of tobacco use, presenting hazards to health 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 History of PTCA Postsurgical percutaneous transluminal coronary angioplasty status ST elevation myocardial infarction (STEMI), unspecified artery (Multi) Congestive heart failure, NYHA class 2 and ACC/AHA stage C Cardiomyopathy, ischemic Other specified forms of chronic ischemic heart disease Primary hypertension Unspecified essential hypertension Mixed hyperlipidemia BMI 31.0-31.9,adult Current smoker documented in this encounter [facility] Work Phone: Evaluation note* Diagnosis Primary hypertension [...] Essential hypertension, benign Coronary artery disease involving [place] coronary artery of [place] heart without angina pectoris (CMS/HCC) Dyshidrotic eczema Lumbar spondylosis Lumbosacral spondylosis without myelopathy documented in this encounter [facility]* Diagnosis Primary hypertension (CMS/HCC)- Primary [...] Essential hypertension, benign Coronary artery disease involving [place] coronary artery of [place] heart without angina pectoris (CMS/HCC) Dyshidrotic eczema Lumbar spondylosis Lumbosacral spondylosis without myelopathy documented in this encounter [facility]* Diagnosis Primary hypertension (CMS/HCC)- [...] Essential hypertension, benign Coronary artery disease involving [place] coronary artery of [place] heart without angina pectoris (CMS/HCC) Dyshidrotic eczema Chronic HFrEF (heart failure with reduced ejection fraction) (CMS/HCC)- Primary Pulmonary nodules Other diseases of lung, not elsewhere classified Benign essential hypertension (CMS/HCC) Essential hypertension, benign documented in this encounter [facility] HealthcareEvaluation note* Diagnosis 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- Primary Cardiomyopathy, ischemic Other specified forms of chronic ischemic heart disease Primary hypertension Unspecified essential hypertension Mixed hyperlipidemia BMI 30.0-30.9,adult Shortness of breath Former smoker Personal history of tobacco use, presenting hazards to health Primary hypertension- Primary Unspecified essential hypertension 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 Cardiomyopathy, ischemic Other [...] of chronic ischemic heart disease 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 Primary hypertension Unspecified essential hypertension Mixed hyperlipidemia BMI 30.0-30.9,adult Former smoker Personal history of tobacco use, presenting hazards to health 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- Primary Cardiomyopathy, ischemic Other specified forms of chronic ischemic heart disease Primary hypertension Unspecified essential hypertension Mixed hyperlipidemia BMI 31.0-31.9,adult Current smoker documented in this encounter [facility] Work Phone: Evaluation note* Diagnosis 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- Primary Cardiomyopathy, ischemic Other specified forms of chronic ischemic heart disease Primary hypertension Unspecified essential hypertension Mixed hyperlipidemia BMI 30.0-30.9,adult Shortness of breath Former smoker Personal history of tobacco use, presenting hazards to health Primary hypertension- Primary Unspecified essential hypertension 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 Cardiomyopathy, ischemic Other [...] of chronic ischemic heart disease 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 Primary hypertension Unspecified essential hypertension Mixed hyperlipidemia BMI 30.0-30.9,adult Former smoker Personal history of tobacco use, presenting hazards to health Chronic maxillary sinusitis- Primary Nasal crusting Chronic rhinitis Nasal congestion Other diseases of nasal cavity and sinuses 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- Primary Cardiomyopathy, ischemic Other specified forms of chronic ischemic heart disease Primary hypertension Unspecified essential hypertension Mixed hyperlipidemia BMI 31.0-31.9,adult Current smoker documented in this encounter [facility] Work Phone: Evaluation note* Diagnosis Primary hypertension- [...] Essential hypertension, benign Coronary artery disease involving [place] coronary artery of [place] heart without angina pectoris Dyshidrotic eczema Chronic HFrEF (heart failure with reduced ejection fraction) (HCC)- Primary Pulmonary nodules Other diseases of lung, not elsewhere classified Benign essential hypertension Essential hypertension, benign Lumbar spondylosis Lumbosacral spondylosis without myelopathy documented in this encounter [facility]Evaluation [facility]* Diagnosis Primary hypertension- Primary Unspecified [...] Essential hypertension, benign Coronary artery disease involving [place] coronary artery of [place] heart without angina pectoris Dyshidrotic eczema Chronic HFrEF (heart failure with reduced ejection fraction) (HCC)- Primary Pulmonary nodules Other diseases of lung, not elsewhere classified Benign essential hypertension Essential hypertension, benign Acute on chronic HFrEF (heart failure with reduced ejection fraction) (HCC)- Primary documented in this encounter [facility] HealthcareEvaluation note* Diagnosis 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- Primary Cardiomyopathy, ischemic Other specified forms of chronic ischemic heart disease Primary hypertension Unspecified essential hypertension Mixed hyperlipidemia BMI 30.0-30.9,adult Shortness of breath Former smoker Personal history of tobacco use, presenting hazards to health Primary hypertension- Primary Unspecified essential hypertension 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 Cardiomyopathy, ischemic Other [...] of chronic ischemic heart disease 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 Primary hypertension Unspecified essential hypertension Mixed hyperlipidemia BMI 30.0-30.9,adult Former smoker Personal history of tobacco use, presenting hazards to health 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- Primary Cardiomyopathy, ischemic Other specified forms of chronic ischemic heart disease Primary hypertension Unspecified essential hypertension Mixed hyperlipidemia BMI 31.0-31.9,adult Current smoker 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 Cardiomyopathy, ischemic Other specified forms of chronic ischemic heart disease Primary hypertension Unspecified essential hypertension Mixed hyperlipidemia documented in this encounter [facility] Work Phone: Evaluation note* Diagnosis Primary hypertension- [...] Essential hypertension, benign Coronary artery disease involving [place] coronary artery of [place] heart without angina pectoris Dyshidrotic eczema Chronic HFrEF (heart failure with reduced ejection fraction) (HCC)- Primary Pulmonary nodules Other diseases of lung, not elsewhere classified Benign essential hypertension Essential hypertension, benign Acute on chronic HFrEF (heart failure with reduced ejection fraction) (HCC)- Primary Lumbar spondylosis Lumbosacral spondylosis without myelopathy [facility] Diagnosis 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- Primary Cardiomyopathy, ischemic Other specified forms of chronic ischemic heart disease Primary hypertension Unspecified essential hypertension Mixed hyperlipidemia BMI 30.0-30.9,adult Shortness of breath Former smoker Personal history of tobacco use, presenting hazards to health Primary hypertension- Primary Unspecified essential hypertension 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 Cardiomyopathy, ischemic Other [...] of chronic ischemic heart disease 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 Primary hypertension Unspecified essential hypertension Mixed hyperlipidemia BMI 30.0-30.9,adult Former smoker Personal history of tobacco use, presenting hazards to health 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- Primary Cardiomyopathy, ischemic Other specified forms of chronic ischemic heart disease Primary hypertension Unspecified essential hypertension Mixed hyperlipidemia BMI 31.0-31.9,adult Current smoker Cardiomyopathy, ischemic- Primary Other specified forms of chronic ischemic heart disease 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 Mixed hyperlipidemia Primary hypertension Unspecified essential hypertension BMI 31.0-31.9,adult Current smoker Shortness of breath documented in this encounter [facility] Work Phone: Evaluation note* Diagnosis Primary hypertension- [...] Essential hypertension, benign Coronary artery disease involving [place] coronary artery of [place] heart without angina pectoris Dyshidrotic eczema Chronic HFrEF (heart failure with reduced ejection fraction) (HCC)- Primary Pulmonary nodules Other diseases of lung, not elsewhere classified Benign essential hypertension Essential hypertension, benign Benign essential hypertension- Primary Essential hypertension, benign Chronic HFrEF (heart failure with reduced ejection fraction) (HCC) Coronary artery disease involving [place] coronary artery of [place] heart without angina pectoris Lumbar spondylosis Lumbosacral spondylosis without myelopathy Recurrent depressive disorder, current episode mild Major depressive disorder, recurrent episode, mild Generalized anxiety disorder Generalized anxiety disorder Actinic keratosis [facility] Diagnosis 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- Primary Cardiomyopathy, ischemic Other specified forms of chronic ischemic heart disease Primary hypertension Unspecified essential hypertension Mixed hyperlipidemia BMI 30.0-30.9,adult Shortness of breath Former smoker Personal history of tobacco use, presenting hazards to health Primary hypertension- Primary Unspecified essential hypertension 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 Cardiomyopathy, ischemic Other [...] of chronic ischemic heart disease 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 Primary hypertension Unspecified essential hypertension Mixed hyperlipidemia BMI 30.0-30.9,adult Former smoker Personal history of tobacco use, presenting hazards to health 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- Primary Cardiomyopathy, ischemic Other specified forms of chronic ischemic heart disease Primary hypertension Unspecified essential hypertension Mixed hyperlipidemia BMI 31.0-31.9,adult Current smoker Cardiomyopathy, ischemic- Primary Other specified forms of chronic ischemic heart disease 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 Mixed hyperlipidemia Primary hypertension Unspecified essential hypertension BMI 31.0-31.9,adult Current smoker Shortness of breath Cardiomyopathy, ischemic- Primary Other specified forms of chronic ischemic heart disease 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 Primary hypertension Unspecified essential hypertension Mixed hyperlipidemia BMI 33.0-33.9,adult Shortness of breath Current smoker Hypersomnolence Hypersomnia, unspecified documented in this encounter [facility] Work Phone: Evaluation note* Diagnosis Primary hypertension- [...] Essential hypertension, benign Coronary artery disease involving [place] coronary artery of [place] heart without angina pectoris Dyshidrotic eczema Chronic HFrEF (heart failure with reduced ejection fraction) (HCC)- Primary Pulmonary nodules Other diseases of lung, not elsewhere classified Benign essential hypertension Essential hypertension, benign Benign essential hypertension- Primary Essential hypertension, benign Chronic HFrEF (heart failure with reduced ejection fraction) (HCC) Coronary artery disease involving [place] coronary artery of [place] heart without angina pectoris Lumbar spondylosis Lumbosacral spondylosis without myelopathy Recurrent depressive disorder, current episode mild Major depressive disorder, recurrent episode, mild Generalized anxiety disorder Generalized anxiety disorder Actinic keratosis Lumbar spondylosis Lumbosacral spondylosis without myelopathy [facility] Secondary osteoarthritis of multiple sites- [...] vitamin D deficiency [facility] Primary hypertension- Primary Unspecified essential [...] Essential hypertension, benign Coronary artery disease involving [place] coronary artery of [place] heart without angina pectoris Dyshidrotic eczema Chronic HFrEF (heart failure with reduced ejection fraction) (HCC)- Primary Pulmonary nodules Other diseases of lung, not elsewhere classified Benign essential hypertension Essential hypertension, benign Benign essential hypertension- Primary Essential hypertension, benign Chronic HFrEF (heart failure with reduced ejection fraction) (HCC) Coronary artery disease involving [place] coronary artery of [place] heart without angina pectoris Lumbar spondylosis Lumbosacral spondylosis without myelopathy Recurrent depressive disorder, current episode mild Major depressive disorder, recurrent episode, mild Generalized anxiety disorder Generalized anxiety disorder Actinic keratosis Major depressive disorder, recurrent episode, moderate (HCC)- Primary Major depressive disorder, recurrent episode, moderate Chronic obstructive pulmonary disease, unspecified COPD type (HCC) Actinic keratosis documented [facility] encounter [facility]* Diagnosis Onset Date Resolution Status Admit Date COPD, mild acuteSept2024 10:16amGERD (gastroesophageal reflux disease)acute April 13, 2025 10:16amNicotine dependence, cigarettes, uncomplicatedacute April 13, 2025 10:16amShortness of breathacuteSept2024 10:16am [facility] Work Phone: Evaluation note* Diagnosis 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- Primary Cardiomyopathy, ischemic Other specified forms of chronic ischemic heart disease Primary hypertension Unspecified essential hypertension Mixed hyperlipidemia BMI 30.0-30.9,adult Shortness of breath Former smoker Personal history of tobacco use, presenting hazards to health Primary hypertension- Primary Unspecified essential hypertension 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 Cardiomyopathy, ischemic Other [...] of chronic ischemic heart disease 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 Primary hypertension Unspecified essential hypertension Mixed hyperlipidemia BMI 30.0-30.9,adult Former smoker Personal history of tobacco use, presenting hazards to health 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- Primary Cardiomyopathy, ischemic Other specified forms of chronic ischemic heart disease Primary hypertension Unspecified essential hypertension Mixed hyperlipidemia BMI 31.0-31.9,adult Current smoker Cardiomyopathy, ischemic- Primary Other specified forms of chronic ischemic heart disease 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 Mixed hyperlipidemia Primary hypertension Unspecified essential hypertension BMI 31.0-31.9,adult Current smoker Shortness of breath Cardiomyopathy, ischemic- Primary Other specified forms of chronic ischemic heart disease 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 Primary hypertension Unspecified essential hypertension Mixed hyperlipidemia BMI 33.0-33.9,adult Shortness of breath Current smoker Hypersomnolence Hypersomnia, unspecified Primary hypertension- Primary Unspecified essential hypertension 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 Cardiomyopathy, ischemic Other specified forms of chronic ischemic heart disease Mixed hyperlipidemia BMI 32.0-32.9,adult Current smoker Shortness of breath documented in this encounter [facility] Work Phone: History general Narrative - Reported* Type Description Date Medical History hyperlipidemia Medical Historychronic depressionMedical HistoryanxietyMedical History HypertensionSurgical History(R) Bicep surgerySurgical HistoryFacial reconstruction surgerySurgical History(R) rotator cuffHospitalization HistorySee Above 3TIER Other History of Present illness NarrativeMorgan is [...] did do a visit or two of care program resident a couple months ago, but this did not give him any relief. No history of surgery on his back. He denies any fever, chills, nausea, vomiting, or night sweats. He has no bowel or bladder complaints[facility] Work Phone: History of Present illness Narrative* [...] He attributes this to the recent infection[id number] [id number] Work Phone: Hospital Discharge instructions Additional Instructions [...] in ONE week for re-evaluation. 2. Call [phone] for further questions.[facility] Work Phone: Hospital Discharge instructions No data available for this section [facility] Additional Instructions DISCHARGE INSTRUCTIONS FOR CARDIAC CERT PHARMACY TECH PROCEDURE: Heart Cath The following instructions have [...] continuous pressure to the site and call [phone]. 3. Operative Site Care: Keep the dressing [...] cold, numb, blue or white, call the adjunct nursing faculty immediately. 4. ACTIVITY: You are advised to [...] bottle, follow the instructions on the bottle. [facility] is not responsible for incorrect prescription information provided by the patient during their visit. Do not stop your medications without consulting your health care provider. Please take the list with you to your next doctor's appointment.[facility] Work Phone: Progress note No data available for this section [facility] Author Hetal Quick [facility] HospitalNote Date/TimeApril 2024 12:10pm[place] [address] Cardiology Progress Note Signed Patient: Morgan Latham MR#: [id number] : 1965 Acct:[id number] Age/Sex: 59 / M Adm Date: 5 Loc: Room: 6R9721-3 Type: ADM IN Attending Dr: Kermit Iraheta [...] history of ischemic heart disease, prior anteroapical SC (old), andsubsequent non-STEMI in April 2023, catheterization at that time revealed chronic occlusion of the LAD, and subtotal occlusions of the OM circumflex branch and diagonal branch both of which underwent balloon angioplasties, and unable to cross the chronic LAD occlusion. At that time intra-aortic balloon pump was placed, he was transferred to [facility], underwent two- vessel coronary bypass graft surgerywith [...] % (Auto) N/A Lymph % (Auto) N/A [place] % (Auto) N/A Eos % (Auto) N/A Baso % (Auto) N/A Nucleat RBC Rel Count N/A Neut # (Auto) N/A Lymph # (Auto) N/A [place] # (Auto) N/A Eos # (Auto) N/A [...] signed by Hetal Quick DO> 11/20/24 1210 [facility] Work Phone: [facility] for referral (narrative)* Diagnostic Procedure Only (Routine) - ClosedSpecialtyDiagnoses / ProceduresReferred By Contact Referred To ContactXR IMAGING Diagnoses Bilateral hand pain Procedures XR HAND GENERAL 3V PA/LAT/OBL BILATERAL RADEX HAND MINIMUM 3 VIEWS Mohini Hook MD [address] [place] [address] Xr Imaging Referral IDStatusReasonStart DateExpiration DateVisits RequestedVisits [id number] Auto-Generated Referral / [facility] for referral (narrative)* Diagnostic Procedure Only (Routine) - ClosedSpecialtyDiagnoses / ProceduresReferred By ContactReferred To ContactXR IMAGING Diagnoses Bilateral hand pain Procedures XR HAND GENERAL 3V PA/LAT/OBL BILATERAL RADEX HAND MINIMUM 3 VIEWS Mohini Hook MD [address] [place] [address] Xr Imaging Referral IDStatusReasonStart DateExpiration DateVisits RequestedVisits [id number] Auto-Generated Referral / [facility] for referral (narrative)* Diagnostic Procedure Only (Routine) - ClosedSpecialtyDiagnoses / ProceduresReferred By ContactReferred To ContactXR IMAGING Diagnoses Chronic pain of both knees Procedures XR KNEE GENERAL 4V AP BOTH/PA BOTH/LAT/MERC BILATERAL RADIOLOGIC EXAM KNEE COMPLETE 4/MORE VIEWS Mohini Hook MD [address] [place] [address] [place] [address] Ref[facility]Status[facility] DateExpiration DateVisits RequestedVisits [id number] Auto-Generated Referral / [facility] for referral (narrative)* Consultation (Routine) - AuthorizedSpecialtyDiagnoses / ProceduresReferred By ContactReferred To ContactCardiac Rehabilitation Diagnoses ST elevation myocardial infarction (STEMI), unspecified artery (CMS/HCC) S/P CABG x 2 Alyssa Quick DO [address] [facility], [address] [address] Referral IDStatus[facility] DateExpiration DateVisits RequestedVisits [id number] Specialty Services Required * Consultation (Routine) - AuthorizedSpecialtyDiagnoses / ProceduresReferred By ContactReferred To ContactCardiology Diagnoses ST elevation myocardial infarction (STEMI), unspecified artery (CMS/HCC) 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, unspecified whether [place] or transplanted heart (CMS/HCC) Hypertension, unspecified type Procedures Follow Up In Cardiology Alyssa Quick DO [address] [facility], [address] [address] Odilia Ernandez, YIELD IMPROVEMENT ENGINEER-AIR VALUE TESTER [address] [facility] [address], [address] [address] Referral IDStatusReasonStart DateExpiration DateVisits RequestedVisits [id number]/14/202311/13/202411 * CV Imaging (Routine) - Pending ReviewSpecialtyDiagnoses / ProceduresReferred By ContactReferred To ContactCardiology Diagnoses S/P CABG x 2 HFrEF (heart failure with reduced ejection fraction) (CMS/HCC) Procedures Transthoracic Echo (TTE) Complete [place] ECHO TRANSTHORC R-T 2D W/WO M-MODE REC F-UP/LMTD [place] DOP ECHOCARD COLOR FLOW VELOCITY MAPPING [place] DOP ECHOCARD PULSE WAVE W/SPECTRAL F-UP/LMTD STD Alyssa Quick, DO [address] [facility], [address] [place] [address] Referral IDStatusReasonStart DateExpiration DateVisits RequestedVisits [id number] Review Perform Procedure * Medications - Pending ReviewSpecialtyDiagnoses / ProceduresReferred By Contact Referred To Contact Diagnoses Acute systolic heart failure (CMS/HCC) Alyssa Quick, DO [address] [facility], [address] [place] [address] Referral IDStatusReasonStart DateExpiration DateVisits RequestedVisits [id number] [facility] Work Phone: reason for referral (narrative)* Consultation (Routine) - AuthorizedSpecialtyDiagnoses / ProceduresReferred By Contact Referred To ContactCardiology Diagnoses 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 (CMS/HCC) Cardiomyopathy, ischemic Procedures Follow Up In Cardiology Odilia Ernandez, YIELD IMPROVEMENT ENGINEER-AIR VALUE TESTER [address] [facility] [address], [address] [address] Referral IDStatusReasonStart DateExpiration DateVisits RequestedVisits [id number]/28/202311/ * PFT (Routine) - Pending ReviewSpecialtyDiagnoses / ProceduresReferred By ContactReferred To Contact Diagnoses Shortness of breath Former smoker Procedures Pulmonary function test Odilia Ernandez [facility] [address] [place] [address] 2, [place] [phone] Referral IDStatusReasonStart DateExpiration DateVisits RequestedVisits [id number] Wqmxtr30/ * Medications - Pending ReviewSpecialtyDiagnoses / ProceduresReferred By Contact Referred To Contact Diagnoses Cardiomyopathy, ischemic Odilia Ernandez [facility] [address] [place] [address], [place] [phone] Referral IDStatusReasonStart DateExpiration DateVisits RequestedVisits [id number] [id number] [facility] Work Phone: reason for referral (narrative)* Consultation (Routine) - AuthorizedSpecialtyDiagnoses / ProceduresReferred By Contact Referred To ContactCardiology Diagnoses Hypervolemia, unspecified hypervolemia type Procedures Follow Up In Cardiology Odilia Ernandez [facility] [address] [place] [address] 2, [place] [phone] Referral IDStatusReasonStart DateExpiration DateVisits RequestedVisits [id number]/12/20243/ * Imaging (Routine) - Pending ReviewSpecialtyDiagnoses / ProceduresReferred By ContactReferred To ContactCardiology Diagnoses Edema of left upper arm Procedures Vascular US upper extremity venous duplex left Odilia Ernandez APRN-CNP [address] [facility], [place] [phone] Referral IDStatusReasonStart DateExpiration DateVisits RequestedVisits [id number] Review Perform Procedure [facility] Work Phone: reason for referral (narrative)* Consultation (Routine) - AuthorizedSpecialtyDiagnoses / ProceduresReferred By Contact Referred To ContactCardiology Diagnoses Hypervolemia, unspecified hypervolemia type Procedures Follow Up In Cardiology Odilia Ernandez APRN-CNP [address] [facility], [place] [phone] Referral IDStatusReasonStart DateExpiration DateVisits RequestedVisits [id number]/20/20243/20/202511 [facility] Work Phone: reason for referral (narrative)* Consultation (Routine) - AuthorizedSpecialtyDiagnoses / ProceduresReferred By Contact Referred To ContactCardiology Diagnoses Congestive heart failure, NYHA class 2 and ACC/AHA stage C (CMS/HCC) Procedures Follow Up In Cardiology Odilia Ernandez APRN-CNP [address] [facility], [place] [phone] Referral IDStatusReasonStart DateExpiration DateVisits RequestedVisits [id number]/10/20244/10/202511 [facility] Work Phone: Reafxv for referral (narrative)* Consultation (Routine) - AuthorizedSpecialtyDiagnoses / ProceduresReferred By Contact Referred To ContactCardiology Diagnoses 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 ([facility]) Procedures Follow Up In Cardiology Alyssa Quick, DO [address] [facility], [address] [place] [address] Alyssa Quick, DO [address] [facility], [address] [place] [address] Referral IDStatusReasonStart DateExpiration DateVisits RequestedVisits [id number]/30/20244/30/202511 [facility] Work Phone: Remgza for referral (narrative)* Diagnostic Procedure Only (Routine) - ClosedSpecialtyDiagnoses / ProceduresReferred By Contact Referred To ContactXR IMAGING Diagnoses Left shoulder pain, unspecified chronicity Procedures XR SHOULDER ORTHO 4V AP/TRUE AP/LAT/OUTLET LEFT RADEX SHOULDER COMPLETE MINIMUM 2 VIEWS Zain Matthew MD [address] [place] [address] [place] [address] Referral IDStatusReasonSttrego DateExpiration DateVisits RequestedVisits [id number] Auto-Generated Referral / [facility] for referral (narrative)* Consultation (Routine) - Pending ReviewSpecialtyDiagnoses / ProceduresReferred By ContactReferred To ContactGeneral Surgery Diagnoses Colon cancer screening Procedures [place] OFFICE/OUTPATIENT NEW HIGH MDM 60 MINUTES Juve Mcpherson MD [address] [place] [address] Dayton Muñiz DO [address] [facility] [address] [place] [address] Referral IDStatusReasonStart DateExpiration DateVisits RequestedVisits [id number] Review Specialty Services Required [facility] (narrative)No reason for referral information availableWadsworth-[facility] Work Phone: Reason for visit Narrative* Diagnostic Procedure Only (Routine) - ClosedSpecialtyDiagnoses / ProceduresReferred By ContactReferred To ContactXR IMAGING Diagnoses Bilateral hand pain Procedures XR HAND GENERAL 3V PA/LAT/OBL BILATERAL RADEX HAND MINIMUM 3 VIEWS Mohini Hook MD [address] [place] [place] [address] Xr Imaging Referral IDStatusReasonStart DateExpiration DateVisits RequestedVisits [id number] Auto-Generated Referral / [facility] for visit Narrative* Diagnostic Procedure Only (Routine) - ClosedSpecialtyDiagnoses / ProceduresReferred By ContactReferred To Contact XR IMAGING Diagnoses Chronic pain of both knees Procedures XR KNEE GENERAL 4V AP BOTH/PA BOTH/LAT/MERC BILATERAL RADIOLOGIC EXAM KNEE COMPLETE 4/MORE VIEWS Mohini Hook MD [address] [place] [place] [address] [place] [address] Referral IDStatusReasonStart DateExpiration DateVisits RequestedVisits [id number] Auto-Generated Referral / [facility] for visit Narrative* Consultation (Routine) - Authorized SpecialtyDiagnoses / ProceduresReferred By ContactReferred To Contact Cardiology Diagnoses 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 ([facility]) Procedures Follow Up In Cardiology Awais Odilia Yohan, YIELD IMPROVEMENT ENGINEER-AIR VALUE TESTER [address] [facility], [address] [place] [address] Alyssa Quick, DO [address] [facility], [address] [place] [address] Referral IDStatusReasonStart DateExpiration DateVisits RequestedVisits [id number]/30/20241/ [facility] Work Phone: reason for visit Narrative* Diagnostic Procedure Only (Routine) - ClosedSpecialtyDiagnoses / ProceduresReferred By ContactReferred To ContactXR IMAGING Diagnoses Left shoulder pain, unspecified chronicity Procedures XR SHOULDER ORTHO 4V AP/TRUE AP/LAT/OUTLET LEFT RADEX SHOULDER COMPLETE MINIMUM 2 VIEWS Zain Matthew MD [address] [place] [address] [place] [address] Referral IDStatusReasonSttrego DateExpiration DateVisits RequestedVisits [id number] Auto-Generated Referral / [facility] for visit Narrative* Cardiac Stress Testing (Routine) - AuthorizedSpecialtyDiagnoses / ProceduresReferred By ContactReferred To ContactRadiology Diagnoses 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 Cardiomyopathy, ischemic Primary hypertension Mixed hyperlipidemia Procedures Nuclear Stress Test CHG MYOCARDIAL SPECT MULTIPLE STUDIES AwaisOdilia, YIELD IMPROVEMENT ENGINEER-AIR VALUE TESTER [address] [facility], [facility] [address] [place] [address] Phone: tel: fax: Referral IDStatusReasonStart DateExpiration DateVisits RequestedVisits [id number]/9/20255/ [facility] Work Phone: Reqmjb for visit Narrative* Cardiac Stress Testing (Routine) - AuthorizedSpecialtyDiagnoses / ProceduresReferred By Contact Referred To ContactRadiology Diagnoses 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 Cardiomyopathy, ischemic Primary hypertension Mixed hyperlipidemia Procedures Nuclear Stress Test CHG MYOCARDIAL SPECT MULTIPLE STUDIES Odilia Ernandez YIELD IMPROVEMENT ENGINEER-AIR VALUE TESTER [address] [facility], [place] [id number] Phone: tel: fax: Referral IDStatusReasonStart DateExpiration DateVisits RequestedVisits [id number]/9/20255/ [facility] Work Phone: Reason for visit Narrative* Consultation (Routine) - AuthorizedSpecialtyDiagnoses / ProceduresReferred By ContactReferred To ContactCardiology Diagnoses 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 Cardiomyopathy, ischemic Procedures Follow Up In Cardiology Odilia Ernandez APRN-AIR VALUE TESTER [address] [facility], [place] [id number] Phone: tel: fax: Referral IDStatMedigoReasonSttrego DateExpiration DateVisits RequestedVisits [id number]/6/20258/ [facility] Work Phone: Reason for Referral SpecialtyDiagnoses / ProceduresReferred By ContactReferred To Contact Diagnoses Chronic maxillary sinusitis Procedures ECG 12 Lead Cely Goode APRN-AIR VALUE TESTER [address] [place] [id number] Referral IDStatusReasonSttrego DateExpiration DateVisits RequestedVisits [id number]/12/20247/[id number] / Procedures Referred By ContactReferred To ContactCardiology Diagnoses Cardiomyopathy, ischemic Procedures Transthoracic Echo (TTE) Limited [place] ECHO TRANSTHORC R-T 2D W/WO M-MODE REC F-UP/LMTD [place] DOP ECHOCARD COLOR FLOW VELOCITY MAPPING [place] DOP ECHOCARD PULSE WAVE W/SPECTRAL F-UP/LMTD STD Alyssa Quick, DO [address] [facility], [address] [address] [place] [address] Referral IDStatusReasonStart DateExpiration DateVisits RequestedVisits [id number] Review Perform Procedure [id number] / ProceduresReferred By ContactReferred To ContactRadiology Diagnoses 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 (CMS/HCC) Procedures XR chest 2 views Ottoniel Trevino MD PhD [address] [facility] [place] [address] Referral IDStatusReasonStart DateExpiration DateVisits RequestedVisits [id number] Review Perform Procedure [id number] / ProceduresReferred By ContactReferred To Contact Diagnoses S/P CABG x 2 Jeanette Perez, YIELD IMPROVEMENT ENGINEERBioHealthonomics Inc. [address] [place] [address] Referral IDStatusReasonStart DateExpiration DateVisits RequestedVisits [id number] Mbiadu45AkbwshyhhWnoayenal / ProceduresReferred By ContactReferred To Contact Diagnoses Acute systolic heart failure (CMS/HCC) Jeanette Perez, YIELD IMPROVEMENT ENGINEERBioHealthonomics Inc. [address] [place] [address] Referral IDStatusReasonStart DateExpiration DateVisits RequestedVisits [id number] [id number] / ProceduresReferred By ContactReferred To ContactFamily Medicine / Primary Care Diagnoses S/P CABG x 2 Procedures [place] OFFICE/OUTPATIENT NEW HIGH MDM 60-74 MINUTES Jeanette Perez, YIELD IMPROVEMENT ENGINEER-DATABASE MARKETING SPECIALIST [address] [facility] [place] [address] Referral IDStatusReasonSttrego DateExpiration DateVisits RequestedVisits [id number] Review Specialty Services Required [id number] / ProceduresReferred By ContactReferred To ContactCardiology Diagnoses S/P CABG x 2 Procedures [place] OFFICE/OUTPATIENT NEW HIGH [facility] 60-74 MINUTES Jeanette Perez, YIELD IMPROVEMENT ENGINEER-[facility] [address] Department [place] [address] Referral IDStatusReasonStart DateExpiration DateVisits RequestedVisits [id number] Review Specialty Services Required Reason eval and treat multi ple joint pain Please refer to Mohini Hook MD Diagnosis 1 Pain, joint, multipl e sites (M25.50) Referral Organization [facility] Referring Provider First Name Elsie Referring Provider Last Name Meredith Referring Provider Specialty Orthopedic Surgery Referred Organization [facility] Referred Address [address],[place], [place],[address] Referred Provider Specialty Rheumatology Referral Priority Routine Chief Complaint and Reason for Visit Chief Complaint M25.512 Chief Complaint M25.512 internal derangement of l shoulder Chief Complaint Shoulder pain Chief Complaint Shoulder pain Shoulder pain Chief Complaint non stemi R06.02 Z87.891Reason for VisitIschemic cardiomyopathy Left ventricular aneurysm ST elevation myocardial infarction (STEMI) of lateral wall Tobacco abuse Chief Complaint non stemi R06.02 Z87.891 I25.119Reason for VisitIschemic cardiomyopathy Left ventricular aneurysm ST elevation myocardial infarction (STEMI) of lateral wall Tobacco abuse Chief Complaint E87.70/i25.119 Chief Complaint E87.70/i25.119 R60.0 Chief Complaint E87.70/i25.119 R60.0 e87.70 i50.9 e78.2 Chief Complaint E87.70/i25.119 R60.0 e87.70 i50.9 e78.2 OP SP LT SHOULDER DISCUSS SURGERY M19.012 - Primary osteoarthritis, left shoulderReason for VisitArthritis of left glenohumeral joint Pre-op exam Tear of left supraspinatus [...] 01, 2025 3:01 pm Ref: Emanuel Ernandez 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 - 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 April 13 10:16am Reason for Visit Admit Date COPD, mild April 13, 2025 10:16am GERD (gastroesophageal reflux disease) S [facility] 2024 10:16am Nicotine dependence, cigarettes, uncompl icated April 13, 2025 10:16am Shortness of breath April 13, 2025 10:16am Chief Complaint Admit Date r06.02 February 25, 2025 2:53 pm I25.119 March 01, 2025 3:01 pm Ref: Emanuel Ernandez 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 - 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 April 13 10:16am I25.5 R06.02 G47.10 May 20, 2025 2 :55pm Reason for Visit Admit Date COPD, mild April 13, 2025 10:16am Dyspnea on exertion April 13, 2025 10:16am GERD (gastroesophageal reflux disease) S [facility] 2024 10:16am Nicotine dependence, cigarettes, uncompl icated April 13, 2025 10:16am Apnea, sleep April 13, 2025 10:16am COPD, mild May 20, 2025 2 :55pm Left ventricular aneurysm May 20, 2025 2:55pm Tobacco abuse May 20, 2025 2 :55pm Apnea, sleep May 20, 2025 2 :55pm Congestive heart failure (CHF) May 052024 2:55pm History of heart bypass surgery May 20, 2025 2:55pm Chief Complaint Admit Date Ref: Emanuel Ernandez 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 - 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 April 13 10:16am I25.5 R06.02 G47.10 May 20, 2025 2 :55pm Established Patient June 03, 2025 2 :34pm Reason for Visit Admit Date COPD, mild April 13, 2025 10:16am Dyspnea on exertion April 13, 2025 10:16am GERD (gastroesophageal reflux disease) S eptember 2024 10:16am Nicotine dependence, cigarettes, uncompl icated April 13, 2025 10:16am Apnea, sleep April 13, 2025 10:16am COPD, mild May 20, 2025 2 :55pm Tobacco abuse May 20, 2025 2 :55pm Apnea, sleep May 20, 2025 2 :55pm Congestive heart failure (CHF) May 052024 2:55pm History of heart bypass surgery May 20, 2025 2:55pm Benign essential hypertension June 032024 2:34pm BPH with obstruction/lower urinary tract symptoms June 03, 2025 2:34pm Chronic HFrEF (heart failure with reduced ejection fraction) June 03, 2025 2:34pm COPD (chronic obstructive pulmonary dise ase) June 03, 2025 2:34pm Coronary artery disease June 03 2:34pm Dysuria June 03, 2025 2 :34pm Generalized anxiety disorder May 2:34pm Lumbar spondylosis June 03, 2025 2 :34pm Major depressive disorder, recurrent epi sode, moderate June 03, 2025 2:34pm Advance Directives Advance Directive Response Recorded Date/ Time Advance Directives No November 04 1:24pm Advance Directive Response Recorded Date/ Time Advance Directives No November 04 12:24pm Code StatusDate ActivatedDate InactivatedCommentsFull Code05/07/2023 10:17 PM QuestionAnswerCommentsPlan of Care:Code Status Discussion Not CompletedDecision Maker:ProviderRationale:Patient condition does not warrant discussionCode Status Date ActivatedDate InactivatedCommentsFull Code05/07/2023 10:01 05/07/2023 10:17 PMQuestionAnswerCommentsPlan of Care:Code Status Discussion CompletedDecision Maker:PatientFull Code05/04/2023 4:19 AM05/07/2023 10:01 PMCode StatusDate ActivatedDate InactivatedCommentsFull Code05/07/2023 10:17 05/15/2023 9:16 PM QuestionAnswerCommentsPlan of Care:Code Status Discussion Not CompletedDecision Maker:ProviderRationale:Patient condition does not warrant discussionCode Status Date ActivatedDate InactivatedCommentsFull Code05/07/2023 10:17 PM10 9:16 PMQuestionAnswerCommentsPlan of Care:Code Status Discussion Not Completed Decision Maker:ProviderRationale:Patient condition does not warrant discussion Code StatusDate ActivatedDate InactivatedCommentsFull Code05/07/2023 10:01 PM 05/07/2023 10:17 PMQuestionAnswerCommentsPlan of Care:Code Status Discussion CompletedDecision Maker:PatientFull Code05/04/2023 4:19 AM05/07/2023 10:01 PMCode StatusDate ActivatedDate InactivatedCommentsFull Code05/07/2023 10:17 PM 05/15/2023 9:16 PMQuestionAnswerCommentsPlan of Care:Code Status Discussion Not CompletedDecision Maker:ProviderRationale:Patient condition does not warrant discussionCode StatusDate ActivatedDate InactivatedCommentsFull Code05/07/2023 10:01 05/07/2023 10:17 PMQuestionAnswerCommentsPlan of Care:Code Status Discussion CompletedDecision Maker:Anniel Code05/04/2023 4:19 AM05/07/2023 10:01 PMDate ActivatedDate UtmcxfinvfpIcderyuu33/3/2023 10:17 05/15/2023 9:16 PMQuestionAnswerCommentsPlan of Care:* Code Status Discussion Not Completed Decision Maker:* Provider Rationale:* Patient condition does not warrant discussion Date ActivatedDate XkarfxtaetiMrzbphct45/3/2023 10:01 05/07/2023 10:17 PM QuestionAnswerCommentsPlan of Care:* Code Status Discussion Completed Decision Maker:* Patient Date ActivatedDate InactivatedComments05/04/2023 4:19 AM05/07/2023 10:01 PMDate ActivatedDate NqhiidqftgnBaaaners02/3/2023 10:17 05/15/2023 9:16 PMQuestion AnswerCommentsPlan of Care:* Code Status Discussion Not Completed Decision Maker:* Provider Rationale:* Patient condition does not warrant discussion Date ActivatedDate FxpvnoybnvjGaovzhnt41/3/2023 10:01 PM10 10:17 PM QuestionAnswerCommentsPlan of Care:* Code Status Discussion Completed Decision Maker:* Patient Date ActivatedDate InactivatedComments05/04/2023 4:19 AM05/07/2023 10:01 PM Advance Directive Response Recorded Date/ Time Advance Directives No March 15, 2025 11:56am Chief Complaint new patient. low back pain with LT leg pain to foot. LT foot has been numb x 2 years. xrays today.new patient. low back pain with LT leg pain to foot. LT foot has been numb x 2 years. xrays today.Chronic sinusitis Summary Purpose Family History Relationship Condition Age at Onset Recorded Date/T no Not Specified Rheumatoid arthritis Unknown fatherGlaucomaUnknownbrotherHeart problemUnknownbrotherRheumatoid arthritis Unknown Relationship Condition Age at Onset Recorded Date/T no mother Rheumatoid arthritis Unknown fatherGlaucomaUnknownMyocardial infarctionUnknownbrotherHeart problemUnknown brotherRheumatoid arthritisUnknown Additional Source Comments REASON FOR VISIT (unrecogniz ed section and content) ReasonCommentsFollow-up3 weekSpecialtyDiagnoses / ProceduresReferred By Contact Referred To ContactCardiology Diagnoses Hypervolemia, unspecified hypervolemia type Procedures Follow Up In Cardiology Odilia Ernandez, YIELD IMPROVEMENT ENGINEER-AIR VALUE TESTER [address] [facility], [address] [address] Referral IDStatusReasonStart DateExpiration DateVisits RequestedVisits [id number]/20/20243/[id number]g XRReason CommentsConsultDx oa.PainX over 2 yrs.ReasonCommentsResultsReasonCommentsRefill RequestReasonCommentsFollow UpPainOngoing generalized pain.ReasonCommentsRadio Gen RMPReasonCommentsOtherCAD I25. 119SpecialtyDiagnoses / ProceduresReferred By ContactReferred To Contact Diagnoses Atherosclerotic heart disease of [place] coronary artery with unspecified angina pectoris (CMS/HCC) Procedures NO CODED SERVICES ENTERED Ottoniel Trevino [place] PhD [address] [facility] [place] [address] [facility] [address] [address] [place] [address] Referral IDStatusReasonStart DateExpiration DateVisits RequestedVisits [id number]-zoB/p CABG @SpecialtyDiagnoses / ProceduresReferred By ContactReferred To ContactRadiology Diagnoses 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 ([facility] Procedures XR chest 2 views Ottoniel Trevino MD PhD [address] [facility] [place] [address] Referral IDStatusReasonStart DateExpiration DateVisits RequestedVisits [id number] Review Perform Procedure /[id number]-do VisitPatient is here for a P/OP visit following CABG x 2 done on 05/07/2023. Karrie LI, RN-BC.Reason CommentsFollow-yf6lEtjpoltvpOhijduzov / ProceduresReferred By ContactReferred To ContactCardiology Diagnoses S/P CABG x 2 HFrEF (heart failure with reduced ejection fraction) ([facility] Procedures Transthoracic Echo (TTE) Complete [place] ECHO TRANSTHORC R-T 2D W/WO M-MODE REC F-UP/LMTD [place] DOP ECHOCARD COLOR FLOW VELOCITY MAPPING [place] DOP ECHOCARD PULSE WAVE W/SPECTRAL F-UP/LMTD STD Alysas Quick S, DO [address] [facility], [address] [place] [address] Referral IDStatusReasonStart DateExpiration DateVisits RequestedVisits [id number] Review Perform Procedure /[id number] / ProceduresReferred By ContactReferred To ContactCardiology Diagnoses Cardiomyopathy, ischemic Procedures Transthoracic Echo (TTE) Limited [place] ECHO TRANSTHORC R-T 2D W/WO M-MODE REC F-UP/LMTD [place] DOP ECHOCARD COLOR FLOW VELOCITY MAPPING [place] DOP ECHOCARD PULSE WAVE W/SPECTRAL F-UP/LMTD STD Alyssa Quick, DO [address] [facility], [address] [place] [address] Referral IDStatusReasonStart DateExpiration DateVisits RequestedVisits [id number] Review Perform Procedure 2/240816AeostcWfzfvxfnAvipws-xv1 month, edemaReasonCommentsFollow-up 1wReferral IDStatusReasonStart DateExpiration DateVisits RequestedVisits [id number]/12/20243/[id number]-nkBakhsh Onset DateCommentsMed Ittqlu754ReasonCommentsFollow-upNot breathing well after surgeryReasonOnset DateCommentsMed Unknxa224ReasonOnset Date CommentsMed Zwxvkf454ReasonCommentsFollow-upSurgical clearance left shoulderSpecialtyDiagnoses / ProceduresReferred By ContactReferred To Contact Diagnoses Chronic maxillary sinusitis Procedures ECG 12 Lead Cely Goode, YIELD IMPROVEMENT ENGINEER-AIR VALUE TESTER [address] [place] [address] Referral IDStatusReasonStart DateExpiration DateVisits RequestedVisits [id number]/12/20247/655556HvlkmpAfyqmnrgMuzq-kxMq issues todayReasonOnset DateCommentsMed Mpzxgl254ReasonCommentsFollow-az0nQpwkoe Onset DateCommentsMed Pquqqk664ReasonCommentsFollow-up6 monthSpecialty Diagnoses / ProceduresReferred By ContactReferred To ContactCardiology Diagnoses 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 Procedures Follow Up In Cardiology Alyssa Quick, DO [address] [facility], [address] [place] [id number] Phone: tel: fax: Alyssa Quick, DO [address] [facility], [place] [address] [place], [place] [address] Phone: tel: fax: Referral IDStatusReasonStart DateExpiration DateVisits RequestedVisits [id number]/30/20244/30/[id number] DateCommentsMed Yfewnf9910/26/2024ReasonOnset DateCommentsMed Fqwwyp2211/25/2024ReasonComments [facility] bncmQhokpsCspptlugIehdjc-me7-4 week follow up heart dhgwvicEayoweSrequlvhWdzm-hcKrwipu-vnUhrhiaTzahr DateCommentsMed Refill 01/20/2025ReasonCommentsFollow-upHospital f/up firesamaritan healthcareReasonOnset DateComments Med Bouzkp7102/16/2025ReasonCommentsFollow-vz7tqvrb Follow up for Coronary Artery DiseaseSpecialtyDiagnoses / ProceduresReferred By ContactReferred To Contact Cardiology Diagnoses 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 Procedures Follow Up In Cardiology Alyssa Quick, DO [address] [facility], [place] [id number] Phone: tel: fax: Odilia Ernandez, YIELD IMPROVEMENT ENGINEER-AIR VALUE TESTER [address] [facility] [address], [place] [address] [place], [place] [address] Phone: tel: fax: Referral IDStatusReasonStart DateExpiration DateVisits RequestedVisits [id number]/22/20251/[id number]-gi7nHrqqvzs Shortness of BreathReasonCommentsFollow-upPft resultsSpecialtyDiagnoses / ProceduresReferred By ContactReferred To ContactCardiology Diagnoses 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 Procedures Follow Up In Cardiology Odilia Ernandez APRN-AIR VALUE TESTER [address] [facility], [facility] [address] [place] [address] Phone: tel: fax: Referral IDStatusReasonStart DateExpiration DateVisits RequestedVisits [id number]/22/20257/22/278814ZqandqKikij DateCommentsMed Vnytqe6403/16/2025ReasonCommentsFollow-upCryo Care Teams (unrecognized sec tion and content) Team Status: Active Member Role Status Dates Juve Mcpherson MD Primary Care Provider Active Team Status: Active Member Role Status Dates Juve Mcpherson MD Primary Care Provider Active S tart: February 25, 2025 Sandoval Johnson ProviderActiveStart: February 25, 2025 Ilan Hsieh ProviderActiveStart: February 25, 2025 Team Status: Inactive Member Role Status Dates Juve Mcpherson MD Primary Care Provider Active S tart: March 01, 2025 End: March 01, 2025Gagan Johnson ProviderActiveStart: March 01, 2025 End: March 01, 2025 Team Status: Inactive Member Role Status Dates Juve Mcpherson MD Primary Care Provider Active S tart: April 13, 2025 End: April 13, 2025PRANAV Campbell-BCAttending ProviderActiveStart: April 13, 2025 End: April 13, 2025STEVE Johnsoneferring ProviderActiveStart: April 13, 2025 End: April 13, 2025 Team Status: Inactive Member Role Status Dates Juve Mcpherson MD Primary Care Provider Active S tart: May 20, 2025 End: May 20, 2025Ilan Heller ProviderActiveStart: May 20, 2025 End: May 20, 2025 Team Status: Inactive Member Role Status Dates Juve Mcpherson MD Primary Care Provider Active W Ed Sierra Provider, Attending ProviderActiveHeidi Marsha , YIELD IMPROVEMENT ENGINEER ACNP-BCOther ProviderActiveCj Hathaway MDOther ProviderActiveChristopher Anthony Jimenez MDOther ProviderActiveMohamed Izabela Olivarez MDOther ProviderActive Jhon Garcia , DOOther ProviderActiveCassie Lott MDOther Provider ActiveRene Balderas MDOther ProviderActiveEfren Rosales MDOther Provider ActiveManpreet Lane DOOther ProviderActive Team Status: Inactive Member Role Status Dates Juve Mcpherson MD Primary Care Provider Active Odilia Ernandez , APRNAttending ProviderActive Team Status: Inactive Member Role Status Dates Juve Mcpherson MD Primary Care Provider Active Elsie Harper , MDAttending ProviderActiveTeam MemberRelationshipSpecialtyStart DateEnd Date Elsie Harper [address] [place] [address] PCP - GeneralOrthopedics08/17/22 Elsie Harper [address] [place] [address] ReferringOrthopedics12/06/21Team MemberRelationshipSpecialtyStart DateEnd Date Elsie Harper [address] [place] [address] PCP - GeneralChatoopedics08/17/22 Elsie Harper [address] [place] [address] ReferringOrthopedics12/06/21Team MemberRelationshipSpecialtyStart DateEnd Date Elsie Harper [address] [place] [address] PCP - GeneralOrthopedics08/17/22 Elsie Harper [address] [place] [address] ReferringOrthopedics5Team MemberRelationshipSpecialtyStart DateEnd Date Elsie Harper [address] [place] [phone] PCP - GeneralOrthopedics08/17/22 Elsie Harper [address] [address] ReferringOrthopedics5/4/22Team MemberRelationshipSpecialtyStart DateEnd Date Elsie Harper [address] [place] [phone] PCP - GeneralOrthopedics08/17/22 Elsie Harper [address] [address] ReferringOrthopedics5/4/22Team MemberRelationshipSpecialtyStart DateEnd Date Elsie Harper [address] [place] [phone] PCP - Orthopedics08/17/22 Elsie Harper [address] [address] ReferringOrthopedics5/4/22Team MemberRelationshipSpecialtyStart DateEnd Date Elsie Harper [address] [place] [phone] PCP - Orthopedics08/17/22 Elsie Harper [address] [address] ReferringOrthopedics5/4/22Team MemberRelationshipSpecialtyStart DateEnd Date Elsie Harper [address] [place] [address] PCP - GeneralOrthopedics08/17/22 Elsie Harper [address] [place] [address] ReferringOrthopedics12/06/21Team MemberRelationshipSpecialtyStart DateEnd Date Elsie Harper [address] [place] [address] PCP - GeneralOrthopedics08/17/22 Elsie Harper [address] [place] [address] ReferringOrthopedics12/06/21Team MemberRelationshipSpecialtyStart DateEnd Date Generic Provider, No Assigned [place]cp[place] [address] [place] [address] PCP - GeneralFamily Kdxffomy09/19/23Team MemberRelationshipSpecialtyStart Date End Date Generic Provider, No Assigned PcpMD [address] [place] [address] PCP - GeneralFamily Yzifplkr23/19/23Team MemberRelationshipSpecialtyStart Date End Date Generic Provider, No Assigned MD Damon [address] [place] [address] PCP - GeneralFamily Qdzcitcs66/19/23Team MemberRelationshipSpecialtyStart Date End Date Generic Provider, No Assigned PcpMD [address] [place] [address] PCP - GeneralFamily Ugshqlha48/19/23Team MemberRelationshipSpecialtyStart Date End Date Generic Provider, No Assigned MD Damon [address] [place] [address] PCP - GeneralFamily Mieioobz86/19/23Team MemberRelationshipSpecialtyStart Date End Date Generic Provider, No Assigned MD Damon [address] [place] [address] PCP - GeneralFamily Mdxtysyl30/19/23Team MemberRelationshipSpecialtyStart Date End Date Generic Provider, No Assigned [address] [place] [address] PCP - [facility] Vxcdsxzt22/19/23Team MemberRelationshipSpecialtyStart Date End Date Generic Provider, No Assigned MD Damon PCP - [facility]05/23/23Team MemberRelationshipSpecialtyStart Date End Date Juve Mcpherson MD [address] [place] [address] PCP - [facility]10/23/23 Team Status: Inactive Member Role Status Dates Juve Mcpherson MD Primary Care Provider Active S tart: October 23, 2023 End: October 22Gagan Zambrano ProviderActiveStart: October 23, 2023 End: October 23, 2023 Team Status: Inactive Member Role Status Dates Juve Mcpherson MD Primary Care Provider Active S tart: November 05, 2023 End: November 04Gagan Zambrano ProviderActiveStart: November 05, 2023 End: November 05, 2023Team MemberRelationshipSpecialtyStart DateEnd Date Juve Mcpherson MD [address] [place] [address] PCP - [facility]10/23/23 Team Status: Inactive Member Role Status Dates Juve Mcpherson MD Primary Care Provider Active S tart: November 26, 2023 End: November 25Gagan Zambrano ProviderActiveStart: November 26, 2023 End: November 26, 2023 Team Status: Inactive Member Role Status Dates Juve Mcpherson MD Primary Care Provider Active S tart: January 14, 2024 End: January 14, 2024Ilan Parson ProviderActiveStart: January 14, 2024 End: January 14, 2024 Team Status: Active Member Role Status Dates Elsie Harper MD Attending Provider Active Star t: January 14, 2024 Ashly Molina Care ProviderActiveStart: January 14, 2024 Team Status: Inactive Member Role Status Dates Elsie Harper MD Attending Provider Active Star t: January 14, 2024 End: January 14, 2024Ashly Molina Care ProviderActiveStart: January 14, 2024 End: January 14, 2024Team MemberRelationshipSpecialtyStart DateEnd Date Juve Mcpherson MD [address] [place] [address] PCP - GeneralFamily Medicine10/23/23Team MemberRelationshipSpecialtyStart DateEnd Date Elsie Harper MD [address] [facility] [place] [address] PCP - GeneralOrthopedics08/17/22 Elsie Harper MD [address] [facility] [place] [address] ReferringOrthopedics12/06/21Team MemberRelationshipSpecialtyStart DateEnd Date Elsie Harper MD [address] [facility] [place] [address] PCP - GeneralOrthopedics08/17/22 Elsie Harper MD [address] [facility] [place] [address] ReferringOrthopedics12/06/21Team MemberRelationshipSpecialtyStart DateEnd Date Juve Mcpherson MD [address] [place] [address] PCP - GeneralFamily Medicine12/04/23Team MemberRelationshipSpecialtyStart DateEnd Date Juve Mcpherson MD [address] [place] [address] PCP - GeneralFamily Medicine12/04/23Team MemberRelationshipSpecialtyStart DateEnd Date Juve Mcpherson MD [address] [place] [address] PCP - GeneralFamily Medicine12/04/23Team MemberRelationshipSpecialtyStart DateEnd Date Juve Mcpherson MD [address] [place] [address] PCP - GeneralFamily Medicine10/23/23Team MemberRelationshipSpecialtyStart DateEnd Date Juve Mcpherson MD [address] [place] [address] PCP - GeneralFamily Medicine12/04/23Team MemberRelationshipSpecialtyStart DateEnd Date Juve Mcpherson MD [address] [place] [address] PCP - GeneralFamily Medicine12/04/23Team MemberRelationshipSpecialtyStart DateEnd Date Juve Mcpherson MD [address] [place] [address] PCP - GeneralFamily Medicine12/04/23Team MemberRelationshipSpecialtyStart DateEnd Date Juve Mcpherson MD [address] [place] [address] PCP - GeneralFamily Medicine10/23/23Team MemberRelationshipSpecialtyStart DateEnd Date Juve Mcpherson MD [address] [place] [address] PCP - GeneralFamily Medicine10/23/23Team MemberRelationshipSpecialtyStart DateEnd Date Juve Mcpherson MD [address] [place] [address] PCP - GeneralFamily Medicine12/04/23Team MemberRelationshipSpecialtyStart DateEnd Date Juve Mcpherson MD [address] [place] [address] PCP - GeneralFamily Medicine12/04/23Team MemberRelationshipSpecialtyStart DateEnd Date Juve Mcpherson MD [address] [place] [address] PCP - GeneralFamily Medicine12/04/23Team MemberRelationshipSpecialtyStart DateEnd Date Juve Mcpherson MD [address] [place] [address] PCP - GeneralFamily Medicine12/04/23Team MemberRelationshipSpecialtyStart DateEnd Date Juve Mcpherson MD [address] [place] [address] PCP - GeneralFamily Medicine12/04/23Team MemberRelationshipSpecialtyStart DateEnd Date Juve Mcpherson MD [address] [place] [address] PCP - [facility]10/23/23 Team Status: Inactive Member Role Status Dates Juve Mcpherson MD Primary Care Provider Active S tart: July 09, 2024 End: July 09Solange Erwinending ProviderActiveStart: July 09, 2024 End: July 09, 2024 Team Status: Inactive Member Role Status Dates Elsie Harper MD Attending Provider Active Star t: July 09, 2024 End: July 09, 2024MarAshly [place] Care ProviderActiveStart: July 09, 2024 End: July 09, 2024 Team Status: Inactive Member Role Status Dates Juve Mcpherson MD Primary Care Provider Active S tart: July 15, 2024 End: July 15haleigh Harper , ZAIDttending ProviderActiveStart: July 15, 2024 End: July 15, 2024 Team Status: Active Member Role Status Dates Juve Mcpherson MD Primary Care Provider Active S tart: July 15, 2024 Ilan Parson Provider, Other ProviderActiveStart: July 15, 2024 Team Status: Inactive Member Role Status Dates Elsie Harper MD Attending Provider Active Star t: July 21, 2024 End: July 21, 2024[facility]Ashly [place] Care ProviderActiveStart: July 21, 2024 End: July 21, 2024 Team Status: Inactive Member Role Status Dates Juve Mcpherson MD Primary Care Provider Active S tart: July 21, 2024 End: July 21omas Solange Harperending ProviderActiveStart: July 21, 2024 End: July 21, 2024 Team Status: Inactive Member Role Status Dates Juve Mcpherson MD Primary Care Provider Active S tart: August 27, 2024 End: August 27Ilan Erwin ProviderActiveStart: August 27, 2024 End: August 27, 2024 Team Status: Active Member Role Status Dates Elsie Harper MD Attending Provider Active Star t: August 27, 2024 Ashly Molina ProviderActiveStart: August 27, 2024 Team Status: Inactive Member Role Status Dates Elsie Harper MD Attending Provider Active Star t: August 27, 2024 End: August 27, 2024MarAshly [place] Care ProviderActiveStart: August 27, 2024 End: August 27, 2024Team MemberRelationshipSpecialtyStart DateEnd Date Juve Mcpherson MD [address] [place] [address] PCP - [facility]12/04/23Team MemberRelationshipSpecialtyStart DateEnd Date Juve Mcpherson MD [address] [place] [address] [facility] - [facility]12/04/23 Team Status: Inactive Member Role Status Dates Juve Mcpherson MD Primary Care Provider Active S tart: November 18, 2024 End: November 20, 2024Rene Ernandez MDEmergency ProviderActiveStart: November 18, 2024 End: November 20, 2024MoJaron Tai ProviderActiveStart: November 18, 2024 End: November 20, 2024Sherine Michaels RNOther ProviderActiveStart: November 18, 2024 End: November 20, 2024W Lan Quick DOOther ProviderActiveStart: November 18, 2024 End: November 20, 2024Ashutosh Espinal MDOther ProviderActiveStart: November 18, 2024 End: November 20, 2024Alyssa Wren MDOther ProviderActiveStart: November 18, 2024 End: November 20, 2024Earnest Dyer MDOther ProviderActiveStart: November 18, 2024 End: November 20shweta Liu MDOther ProviderActiveStart: November 18, 2024 End: November 20, 2024Prashant Johnsonher ProviderActiveStart: November 18, 2024 End: November 20, 2024Yessica Rondon MDOther ProviderActiveStart: November 18, 2024 End: November 20, 2024Toni Toledo MDOther ProviderActiveStart: November 18, 2024 End: November 20, 2024Susan Braun MDOther ProviderActiveStart: November 18, 2024 End: November 20RAJEEV HarrisP-BCOther ProviderActiveStart: November 18, 2024 End: November 20, 2024Kermit Iraheta MDAttending ProviderActiveStart: November 18, 2024 End: November 20, 2024Team MemberRelationshipSpecialtyStart DateEnd Date Juve Mcpherson MD [address] [place] [address] PCP - GeneralFamily Medicine10/23/23Team MemberRelationshipSpecialtyStart DateEnd Date Juve Mcpherson MD [address] [place] [address] PCP - Generalmily Medicine10/23/23 Team Status: Active Member Role Status Dates Ayesha Hunter DO Emergency Provider Active Sta rt: January 06, 2025 [facility] Care ProviderActiveStart: January 06, 2025 Kemal Gonzalesit Provider, Attending ProviderActiveStart: January 06, 2025 Sherine Michaels RNOther ProviderActiveStart: January 06, 2025 Hetal Quick DOOther ProviderActiveStart: January 06, 2025 Ashutosh Espinal MDOther ProviderActiveStart: January 06, 2025 Alyssa Wren MDOther ProviderActiveStart: January 06, 2025 Earnest Dyer MDOther ProviderActiveStart: January 06, 2025 Joe Liu MDOther ProviderActiveStart: January 06, 2025 Odilia Ernandez APRNOther ProviderActiveStart: January 06, 2025 Yessica Rondon MDOther ProviderActiveStart: January 06, 2025 Toni Toledo MDOther ProviderActiveStart: January 06, 2025 Susan Braun MDOther ProviderActiveStart: January 06, 2025 Tammy Marcial IC DESIGNER [employer]-Other ProviderActiveStart: January 06, 2025 Team Status: Inactive Member Role Status Dates Ayesha Hunter DO Emergency Provider Active Sta rt: January 06, 2025 End: January 08, 2025Marc Norma , MDPrimary Care ProviderActiveStart: January 06, 2025 End: January 08, 2025Mohamparisa Choudhury , MDAdmit ProviderActiveStart: January 06, 2025 End: January 08, 2025Ruta Semaskjovita , MDAttending ProviderActiveStart: January 06, 2025 End: January 08, 2025Team MemberRelationshipSpecialtyStart DateEnd Date Juve Mcpherson MD [address] [place] [address] [facility] - [facility]12/04/23Team MemberRelationshipSpecialtyStart DateEnd Date Juve Mcpherson MD [address] [place] [address] [facility]/04/23Team MemberRelationshipSpecialtyStart DateEnd Date Juve Mcpherson MD [address] [place] [address] PCP - Generalmi Medicine12/04/23Team MemberRelationshipSpecialtyStart DateEnd Date Juve Mcpherson MD [address] [place] [address] [facility] - [facility]10/23/23Team MemberRelationshipSpecialtyStart DateEnd Date Juve Mcpherson MD [address] [place] [address] PCP - Generalmily Medicine10/23/23Team MemberRelationshipSpecialtyStart DateEnd Date Juve Mcpherson MD [address] [place] [address] PCP - Generalmily Medicine10/23/23Team MemberRelationshipSpecialtyStart DateEnd Date Juve Mcpherson MD [address] [place] [address] PCP - Generalmi Medicine12/04/23 Team Status: Inactive Member Role Status Dates Juve Mcpherson MD Primary Care Provider Active S tart: January 29, 2025 End: January 29, 2025W Lan Quick DOAttlobo ProviderActiveStart: January 29, 2025 End: January 29, 2025Team MemberRelationshipSpecialtyStart DateEnd Date Juve Mcpherson MD [address] [place] [address] PCP - [facility] Medicine12/04/23Team MemberRelationshipSpecialtyStart DateEnd Date Juve Mcpherson MD [address] [place] [address] PCP - Generalmily Medicine10/23/23Team MemberRelationshipSpecialtyStart DateEnd Date Juve Mcpherson MD [address] [place] [address] PCP - Generalmily Medicine12/04/23Team MemberRelationshipSpecialtyStart DateEnd Date Juve Mcpherson MD [address] [place] [address] PCP - GeneralFamily Medicine12/04/23Team MemberRelationshipSpecialtyStart DateEnd Date Juve Mcpherson MD [address] [place] [address] PCP - GeneralFamily Medicine10/23/23Team MemberRelationshipSpecialtyStart DateEnd Date Juve Mcpherson MD [address] [place] [address] PCP - GeneralFamily Medicine12/04/23Team MemberRelationshipSpecialtyStart DateEnd Date Elsie Harper MD [address] [place] [address] PCP - GeneralOrthopedics08/17/22 Elsie Harper MD [address] [place] [address] ReferringOrthopedics12/06/21Team MemberRelationshipSpecialtyStart DateEnd Date Juve Mcpherson MD [address] [place] [address] PCP - GeneralFamily Medicine12/04/23Team MemberRelationshipSpecialtyStart DateEnd Date Juve Mcpherson MD [address] [place] [address] PCP - GeneralFamily Medicine12/04/23Team MemberRelationshipSpecialtyStart DateEnd Date Juve Mcpherson MD [address] [place] [address] PCP - [facility]04/21/25 Team Status: Active Member Role/Relationship Status Dates Juve Mcpherson MD Primary Care Provider Active Team Status: Inactive Member Role/Relationship Status Dates Juve Mcpherson MD Primary Care Provider Active S tart: April 13, 2025 End: April 13, 2025Hefelecia Larson APRN ACNP-BCAttending ProviderActiveStart: April 13, 2025 End: April 13, 2025STEVE Johnsoneferring ProviderActiveStart: April 13, 2025 End: April 13, 2025 Team Status: Inactive Member Role/Relationship Status Dates Juve Mcpherson MD Primary Care Provider Active S tart: May 20, 2025 End: May 20, 2025Dacristhian Patrick MDAttlobo ProviderActiveStart: May 20, 2025 End: May 20, 2025 Team Status: Inactive Member Role/Relationship Status Dates Juve Mcpherson MD Primary Care Provider Active S tart: June 03, 2025 End: June 03, 2025MarIlan [place] ProviderActiveStart: June 03, 2025 End: June 03, 2025 Goals (unrecognized section and content) Goals may be documented in a n alternate section Source Comments (unrecognize d section and content) In the event this informatio n is protected by the Federal Confidentiality of Alcohol and Drug Abuse Patient Records regulations: The Federal rules restrict any use of the information to criminally investigate or prosecute any alcohol or drug abuse patient.[facility] the event this information is protected by the Federal Confidentiality of Alcohol and Drug Abuse Patient Records regulations: The Federal rules restrict any use of the information to criminally investigate or prosecute any alcohol or drug abuse patient.[facility] HospitalIn the event this information is protected by the Federal Confidentiality of Alcohol and Drug Abuse Patient Records regulations: The Federal rules restrict any use of the information to criminally investigate or prosecute any alcohol or drug abuse patient.[facility] HospitalIn the event this information is protected by the Federal Confidentiality of Alcohol and Drug Abuse Patient Records regulations: The Federal rules restrict any use of the information to criminally investigate or prosecute any alcohol or drug abuse patient.[facility] HospitalIn the event this information is protected by the Federal Confidentiality of Alcohol and Drug Abuse Patient Records regulations: The Federal rules restrict any use of the information to criminally investigate or prosecute any alcohol or drug abuse patient.[facility] HospitalIn the event this information is protected by the Federal Confidentiality of Alcohol and Drug Abuse Patient Records regulations: The Federal rules restrict any use of the information to criminally investigate or prosecute any alcohol or drug abuse patient.[facility] HospitalIn the event this information is protected by the Federal Confidentiality of Alcohol and Drug Abuse Patient Records regulations: The Federal rules restrict any use of the information to criminally investigate or prosecute any alcohol or drug abuse patient.[facility] HospitalIn the event this information is protected by the Federal Confidentiality of Alcohol and Drug Abuse Patient Records regulations: The Federal rules restrict any use of the information to criminally investigate or prosecute any alcohol or drug abuse patient.[facility] HospitalIn the event this information is protected by the Federal Confidentiality of Alcohol and Drug Abuse Patient Records regulations: The Federal rules restrict any use of the information to criminally investigate or prosecute any alcohol or drug abuse patient.[facility] HospitalIn the event this information is protected by the Federal Confidentiality of Alcohol and Drug Abuse Patient Records regulations: The Federal rules restrict any use of the information to criminally investigate or prosecute any alcohol or drug abuse patient.[facility] HospitalIn the event this information is protected by the Federal Confidentiality of Alcohol and Drug Abuse Patient Records regulations: The Federal rules restrict any use of the information to criminally investigate or prosecute any alcohol or drug abuse patient.[facility] HospitalIn the event this information is protected by the Federal Confidentiality of Alcohol and Drug Abuse Patient Records regulations: The Federal rules restrict any use of the information to criminally investigate or prosecute any alcohol or drug abuse patient.[facility] HospitalIn the event this information is protected by the Federal Confidentiality of Alcohol and Drug Abuse Patient Records regulations: The Federal rules restrict any use of the information to criminally investigate or prosecute any alcohol or drug abuse patient.[facility] (unrecognized sect ion and content) No Status [...] DATE CREATED AUTHOR AUTHOR'S ORGANIZ ATION 08/22/2022 [facility] DATE CREATED AUTHOR AUTHOR'S ORGANIZ ATION 11/24/2022 [facility] DATE CREATED AUTHOR AUTHOR'S ORGANIZ ATION 01/31/2023 [facility] DATE CREATED AUTHOR AUTHOR'S ORGANIZ ATION 02/20/2024 [facility] DATE CREATED AUTHOR AUTHOR'S ORGANIZ ATION 04/02/2024 [facility] DATE CREATED AUTHOR AUTHOR'S ORGANIZ ATION 12/16/2024 [facility] DATE CREATED AUTHOR AUTHOR'S ORGANIZ ATION 01/13/2025 [facility] DATE CREATED AUTHOR AUTHOR'S ORGANIZ ATION 01/29/2025 [facility] DATE CREATED AUTHOR AUTHOR'S ORGANIZ ATION 02/07/2025 [facility] DATE CREATED AUTHOR AUTHOR'S ORGANIZ ATION 03/28/2025 [facility] DATE CREATED AUTHOR AUTHOR'S ORGANIZ ATION 04/15/2025 [facility] DATE CREATED AUTHOR AUTHOR'S ORGANIZ ATION 05/28/2025 [facility] Ambulatory Scheduled Active and Recently Administ ered Medications (unrecognized section and content) Medication Order/ acetaminophen (Tylenol) tablet 650 mg(Linked Group 1) 650 mg, oral, Every 4 hours, First dose on Sat05/07/23 at 2230, Use oral route if available., If ordered PRN for pain, nurse is permitted to administer this medication for higher pain scores based onpatient preference? Yes * 0301 (Given - Provider: Wilberto Collins RN) * 0612 (Given - Provider: Wilberto Collins RN) * 1134 (Given - Provider: Sissy Mcfadden RN) * 1535 (Given - Provider: Sissy Mcfadden RN) * 1927 (Given - Provider: Mansi Shelley RN) * 2230 (Not Given - Provider: Mansi Shelley RN - Reason: Other - Comment: too close to previous dose) * 0048 (Given - Provider: Mansi Shelley RN) * 0217 (Not Given - Provider: Mansi Shelley RN - Reason: Other - Comment: see other dose) * 0512 (Given - Provider: Mansi Shelley RN) * 0936 (Given - Provider: Sissy Mcfadden RN) * 1437 (Given - Provider: Sissy Mcfadden RN) * 1838 (Given - Provider: Sissy Mcfadden RN) * 2234 (Given - Provider: Mansi Shelley RN) * 0231 (Given - Provider: Mansi Shelley RN) * 0612 (Given - Provider: Mansi Shelley RN) * 1040 (Given - Provider: Sissy Mcfadden RN) * 1456 (Given - Provider: Sissy Mcfadden RN) * 1857 (Given - Provider: Sissy Mcfadden RN) * 2230 (Due - Provider: Eliana Santos, GustavoD) aspirin chewable tablet 81 mg(Linked Group 2) 81 mg, oral, Daily, First dose on Sat05/08/23 at 0900, HOLD for platelets LESS than 50,000. * 1134 (Given - Provider: Sissy Mcfadden RN) * 1239 (Given - Provider: Sissy Mcfadden RN) * 1200 (Given - Provider: Sissy Mcfadden RN) atorvastatin (Lipitor) tablet 80 mg 80 mg, oral, Daily, First dose on Sat05/08/23 at 0900 * 2031 (Given - Provider: Mansi Shelley RN) * 2106 (Given - Provider: Mansi Shelley RN) * 2100 (Due - Provider: Tani Rogers) bisacodyl (Dulcolax) suppository 10 mg 10 mg, rectal, Daily, First dose on Sat05/13/23 at 1630 * 1630 (Not Given - Provider: Sissy Mcfadden RN - Reason: Patient/family refused) * 0900 (Not Given - Provider: Sissy Mcfadden RN - Reason: Patient/family refused) * 0900 (Not Given - Provider: Sissy Mcfadden RN - Reason: Patient/family refused) clopidogrel (Plavix) tablet 75 mg 75 mg, oral, Daily, First dose on Sat05/09/23 at 0900, HOLD for platelets LESS than 50,000. * 0909 (Given - Provider: Sissy Mcfadden RN) * 0912 (Given - Provider: Sissy Mcfadden RN) * 0909 (Given - Provider: Sissy Mcfadden RN) docusate sodium (Colace) capsule 100 mg 100 mg, oral, 2 times daily, First dose on Sat05/08/23 at 2100 * 0909 (Given - Provider: Sissy Mcfadden RN) * 2100 (Not Given - Provider: Mansi Shelley RN - Reason: Patient/family refused) * 0912 (Given - Provider: Sissy Mcfadden RN) * 2100 (Not Given - Provider: Mansi Shelley RN - Reason: Patient/family refused) * 0911 (Given - Provider: Sissy Mcfadden RN) * 2100 (Due) DULoxetine (Cymbalta) DR capsule 30 mg 30 mg, oral, Daily, First dose on Sat05/09/23 at 1800, Do not crush or chew. * 0908 (Given - Provider: Sissy Mcfadden RN) * 0912 (Given - Provider: Sissy Mcfadden RN) * 0952 (Given - Provider: Sissy Mcfadden RN) empagliflozin (Jardiance) tablet 10 mg 10 mg, oral, Daily, First dose on Sat05/13/23 at 0900 * 0908 (Given - Provider: Sissy Mcfadden RN) * 0912 (Given - Provider: Sissy Mcfadden RN) * 0952 (Given - Provider: Sissy Mcfadden RN) furosemide (Lasix) injection 20 mg (COMPLETED) 20 mg, intravenous, Once, On Sat05/13/23 at 0815, For 1 dose * 0909 (Given - Provider: Sissy Mcfadden RN) furosemide (Lasix) tablet 20 mg 20 mg, oral, Daily, First dose on Sat05/15/23 at 1030 * 1043 (Given - Provider: Sissy Mcfadden RN) gabapentin (Neurontin) capsule 300 mg 300 mg, oral, Every 8 hours, First dose on Sat05/09/23 at 1045, Capsules may be opened and sprinkled on food (eg, applesauce, orange juice, pudding * 0301 (Given - Provider: Wilberto Collins RN) * 1134 (Given - Provider: Sissy Mcfadden RN) * 1831 (Given - Provider: Sissy Mcfadden RN) * 0201 (Given - Provider: Mansi Shelley RN) * 1048 (Given - Provider: Sissy Mcfadden RN) * 1837 (Given - Provider: Sissy Mcfadden RN) * 0146 (Given - Provider: Mansi Shelley RN) * 1040 (Given - Provider: Sissy Mcfadden RN) * 1857 (Given - Provider: Sissy Mcfadden RN) heparin (porcine) injection 5,000 Units 5,000 Units, subcutaneous, Every 8 hours, First dose on Sat05/08/23 at 1600 * 0014 (Given - Provider: Wilberto Collins RN) * 0909 (Given - Provider: Sissy Mcfadden RN - Comment: workflow) * 1539 (Given - Provider: Sissy Mcfadden RN) * 0048 (Given - Provider: Mansi Shelley RN) * 0913 (Given - Provider: Sissy Mcfadden RN) * 1700 (Given - Provider: Sissy Mcfadden RN) * 0137 (Given - Provider: Mansi Shelley RN) * 0910 (Given - Provider: Sissy Mcfadden RN) * 1709 (Given - Provider: Sissy Mcfadden RN) ipratropium-albuteroL (Duo-Neb) 0.5-2.5 mg/3 mL nebulizer solution 3 mL 3 mL, nebulization, Every 6 hours RT, First dose on Sat05/12/23 at 2100 * 0545 (Given - Provider: Nandini Collins RRT - Comment: workflow) * 0854 (Given - Provider: Wilberto Pak RRT) * 1527 (Given - Provider: Wilberto Pak RRT) * 2100 (Not Given - Provider: Javier Enamorado RRT - Reason: Patient/family refused) * 0300 (Not Given - Provider: Javier Enamorado RRT - Reason: Patient/family refused) * 0846 (Given - Provider: Wilberto Pak RRT) * 1512 (Given - Provider: Wilberto Pak RRT) * 2221 (Given - Provider: Live Ashley RRT) * 0237 (Given - Provider: Live Ashley RRT) * 1049 (Given - Provider: Earnestine Heard - Comment: workflow) * 1451 (Given - Provider: Earnestine Heard) * 2100 (Due - Provider: Wilmer De La Rosa RRT) iron polysaccharides (Nu-Iron,Niferex) capsule 150 mg 150 mg, oral, Daily, First dose on Sat05/10/23 at 1745 * 0912 (Given - Provider: Sissy Mcfadden RN) * 0912 (Given - Provider: Sissy Mcfadden RN) * 0910 (Given - Provider: Sissy Mcfadden RN) lidocaine 4 % patch 1 patch 1 patch, transdermal, Administer over 12 Hours, Daily, First dose on Sat05/08/23 at 1045, Apply to chest. Patch will remain on for 12 hours, then removed for [address] patch directly over any surgical incisions or wounds. * 0910 (Medication Applied - Provider: Sissy Mcfadden RN) * 2110 (Medication Removed - Provider: Mansi Shelley RN) * 0900 (Not Given - Provider: Sissy Mcfadden RN - Reason: Patient/family refused) * 0900 (Not Given - Provider: Sissy Mcfadden RN - Reason: Patient/family refused) losartan (Cozaar) tablet 25 mg (CANCELED) 25 mg, oral, Daily, First dose on Sat05/12/23 at 0900 * 0908 (Given - Provider: Sissy Mcfadden RN) melatonin tablet 5 mg 5 mg, oral, Nightly, First dose on Sat05/10/23 at 2100 * 203 (Given - Provider: Mansi Shelley RN) * 210 (Given - Provider: Mansi Shelley RN) * 2100 (Due) methocarbamol (Robaxin) tablet 500 mg 500 mg, oral, Every 6 hours scheduled, First dose on Sat05/10/23 at 0830 * 0458 (Given - Provider: Wilberto Collins RN) * 0912 (Given - Provider: Sissy Mcfadden RN) * 1538 (Given - Provider: Sissy Mcfadden RN) * 2131 (Given - Provider: Mansi Shelley RN) * 0512 (Given - Provider: Mansi Shelley RN) * 1048 (Given - Provider: Sissy Mcfadden RN) * 1701 (Given - Provider: Sissy Mcfadden RN) * 2106 (Given - Provider: Mansi Shelley RN) * 0513 (Given - Provider: Mansi Shelley RN) * 1040 (Given - Provider: Sissy Mcfadden RN) * 1709 (Given - Provider: Sissy Mcfadden RN) * 2200 (Due) metoprolol succinate XL (Toprol-XL) 24 hr tablet 100 mg 100 mg, oral, Daily, First dose on Sat05/14/23 at 0900, Do not crush or chew. * 0912 (Given - Provider: Sissy Mcfadden RN) * 0910 (Given - Provider: Sissy Mcfadden RN) metoprolol tartrate (Lopressor) tablet 50 mg (COMPLETED) 50 mg, oral, 2 times daily, First dose (after last modification) on Sat05/11/23 at 2100, For 5 doses * 0908 (Given - Provider: Sissy Mcfadden RN) * 203 (Given - Provider: Mansi Shelley RN) multivitamin with minerals 1 tablet 1 tablet, oral, Daily, First dose on Sat05/10/23 at 1815 * 0908 (Given - Provider: Sissy Mcfadden RN) * 0912 (Given - Provider: Sissy Mcfadden RN) * 0910 (Given - Provider: Sissy Mcfadden RN) oxyCODONE (Roxicodone) immediate release tablet 20 mg (COMPLETED) 20 mg, oral, Once, On 05/13/23 at 2230, For 1 dose, If ordered PRN for pain, nurse is permitted to administer this medication for higher pain scores based on patient preference? Yes * 2234 (Given - Provider: Mansi Shelley RN) pantoprazole (ProtoNix) EC tablet 40 mg(Linked Group 3) 40 mg, oral, Daily before breakfast, First dose on Sat05/08/23 at 0700, Do not crush, chew, or split. * 0612 (Given - Provider: Wilberto Collins RN) * 0512 (Given - Provider: Mansi Shelley RN) * 0513 (Given - Provider: Mansi Shelley RN) perflutren [...] 10 mL syringe. Inject 0.5 mL of dilu liss DEFINITY when notified the images/film are unclear to enhance view of Left Ventricular borders.Repeat 0.5 mL of DEFINITY until clear images are obtained, not to exceed 10 mLs. Once images are obtained or limit of medication is reached, flush line with 10 mL of Normal Saline. * 1110 (Given - Provider: Mansi Aly RN [...] Bowel Regimen - for prevention of constipation. * 0909 (Given - Provider: Sissy Mcfadden RN) * 2100 (Not Given - Provider: Mansi Shelley RN - Reason: Patient/family refused) * 0913 (Given - Provider: Sissy Mcfadden RN) * 2100 (Not Given - Provider: Mansi Shelley RN - Reason: Patient/family refused) * 0911 (Given - Provider: Sissy Mcfadden RN) * 2100 (Due) sacubitriL-valsartan (Entresto) 24-26 mg per tablet 0.5 tablet 0.5 tablet, oral, 2 times daily, First dose on Sat05/14/23 at 0900, Contraindicated in combinationwith GERARDO inhibitors. Ensure a minimum of 36 hours between any GERARDO inhibitor dose and sacubitril-valsartan. * 0912 (Given - Provider: Sissy Mcfadden RN) * 2106 (Given - Provider: Mansi Shelley RN) * 0910 (Given - Provider: Sissy Mcfadden RN) * 2100 (Due) spironolactone (Aldactone) tablet 12.5 mg 12.5 mg, oral, Daily, First dose on Sat05/14/23 at 1130 * 1239 (Given - Provider: Sissy Mcfadden RN - Comment: workflow) * 0909 (Given - Provider: Sissy Mcfadden RN) Medication Order/06/2023 naloxone (Narcan) injection 0.2 mg 0.2 mg, intravenous, Every 5 min PRN, respiratory depression, Starting on Sat05/07/23 at 2208, If respiratory rate is less than 8 breaths/minute or patient is difficult to arouse stop any narcotics and contact physician. Administer slow IV push. Repeat as ordered until patient's respiratory rate isgreater than 12 breaths/minute. oxyCODONE (Roxicodone) immediate release tablet 15 mg 15 mg, oral, Every 4 hours PRN, pain moderate (4-6), first line, Starting on Sat05/10/23 at 0838, If ordered PRN for pain, nurse is permitted to administer this medication for higher pain scores based on patient preference? Yes * 0201 (Given - Provider: Mansi Shelley RN) * 0639 (Given - Provider: Mansi Shelley RN) * 1837 (Given - Provider: Sissy Mcfadden RN) * 0231 (Given - Provider: Mansi Shelley RN) * 1040 (Given - Provider: Sissy Mcfadden RN) oxyCODONE (Roxicodone) immediate release tablet 20 mg 20 mg, oral, Every 4 hours PRN, pain severe (7-10), first line, Starting on Sat05/10/23 at 0839, Ifordered PRN for pain, nurse is permitted to administer this medication for higher pain scores basedon patient preference? Yes * 0123 (Given - Provider: Wilberto Collins RN) * 0611 (Given - Provider: Wilberto Collins RN) * 1134 (Given - Provider: Sissy Mcfadden RN) * 1535 (Given - Provider: Sissy Mcfadden RN) * 1927 (Given - Provider: Mansi Shelley RN) * 2220 (Not Given - Provider: Mansi Shelley RN - Reason: Other - Comment: pulled med too early) * 1047 (Given - Provider: Sissy Mcfadden RN) * 1437 (Given - Provider: Sissy Mcfadden RN) * 2234 (Given - Provider: Mansi Shelley RN) * 0612 (Given - Provider: Mansi Shelley RN) * 1455 (Given - Provider: Sissy Mcfadden RN) * 1857 (Given - Provider: Sissy Mcfadden RN) Order Group 1: acetaminophen (Tylenol) tablet 650 mgJump to med 650 mg, oral, Every 4 hours, First dose on Sat05/07/23 at 2230
Use oral route if available.
If ordered PRN for pain, nurse is permitted to administer this medication for higher painscores based on patient preference? Yes Or acetaminophen [...] on Sat05/08/23 at 0700
Do not crush, chew,or split.
Or pantoprazole (ProtoNix) injection 40 mg (CANCELED) 40 mg, intravenous, Administer over 2 Minutes, Daily before breakfast, First dose on Sat05/08/23 [id number]
Give if unable to take by mouth.
[...] BE BASED ON THE PRIMARY CLINICAL RECORDS. [email or web address]. provides no warranty or guarantee of the accuracy or completeness of information in this document.
[2025-07-12] MEDS: LIDOCAINE HCL 1% 100 MG/10 ML MDV INJ (17:04)
== END 2025-07-12 18:07 | disposition home or self-care (01) ==
PROVIDERS: Emergency Provider Emergency Medicine; PCP Family Medicine
DX: S61.412A Laceration without foreign body of left hand, initial encounter (principal); W26.0XXA Contact with knife, initial encounter; Z79.02 Long term (current) use of antithrombotics/antiplatelets; Z79.82 Long term (current) use of aspirin
CPT/HCPCS: 12001; 73130; 99283